=== PATIENT | male | born 1940 | race African-American/Black ===

== ENCOUNTER 2017-09-21 22:31 | Emergency (ER) | payer MEDICARE, SELFPAY ==
[2017-09-21 22:32] VITALS: BP 162/87; PULSE 67; RESP 18; TEMP 36.3; O2SAT 97; BMI 30.5
--- NOTE | 2017-09-21 22:51 | EKG12_ITS ---
Test Reason : Blood Pressure : / mmHG Vent. Rate : 066 BPM Atrial Rate : 066 BPM P-R Int : 232 ms QRS Dur : 116 ms QT Int : 410 ms P-R-T Axes : 052 016 057 degrees QTc Int : 429 ms Sinus rhythm with 1st degree A-V block Otherwise normal ECG Confirmed by STEVE WILLIS ([id number]), image editor ERMELINDA HOWARD ([id number]) on 09/26/2017 10:01:28 AM Referred By: CANDACE Confirmed By:STEVE WILLIS
--- NOTE | 2017-09-21 22:55 | RAD_ITS ---
STUDY: X-RAY CHEST REASON FOR EXAM: Male, 77 years old. Pain TECHNIQUE: Frontal views COMPARISON: None. FINDINGS: The lungs are expanded. There is mild interstitial prominence. Normal size heart. Normal mediastinum and judy. Normal visualized pulmonary arteries. Calcified ectatic aortic arch and descending thoracic aorta. Degenerative changes of the thoracic spine. Normal visualized ribs, clavicles, and shoulders. There is no demonstrated abnormality of the visualized soft tissue structures of the upper abdomen. RAD/Chest 1 View (Portable) IMPRESSION: Mild interstitial prominence. Electronically Signed: Kunal Hugo DO at 23:11 EST Tel [phone], Service support ,
--- NOTE | 2017-09-21 22:56 | ED.VISSUMM ---
- ER Visit Summary Date of Service: 09/21/17 Chief Complaint: [] Abdominal distention History of Present Illness: The patient is a 77 M [] complaining of abdominal distention and belching beginning today. Patient reports slight constipation however reports having a normal bowel movement yesterday. Patient has an unusual affect. He denies any abdominal pain or nausea and vomiting however his main concern is the distention and belching. Denies fevers. Denies any past medical history or any current medication use. Reports previous surgical history of hemorrhoid repair and eye surgery. Physical Examination: [] Afebrile, vital signs stable. Elderly male in no acute distress. Cardiovascular exam is regular rate and rhythm. Lungs are clear to auscultation. Abdomen is soft mild distention, with no guarding or rebound tenderness. No lower extremity edema. Test Results: [] EKG shows normal sinus rhythm rate of 66 without ischemic changes. Chest x-ray negative. CT flank without contrast shows fecal retention without acute pathology. CBC, BMP, LFTs, lipase all within normal limits. Emergency Department Course and Treatment: [] Intravenous fluids. Patient declined the need for pain medication. As a result of the reading of fecal retention, patient was provided magnesium citrate orally in the emergency department. After 4 hour observation patient felt improved and was requesting discharge. Treatment Plan: [] Follow-up with PCP. Disposition: [] Discharge, stable. Impression: [] Abdominal pain Constipation This note was generated with [employer] dictation software. It may contain incorrect words, spelling, and punctuation that were not noted in review of the chart prior to signing ED Disposition - Plan for ED Patient: Chief Complaint: Abd Pain Referrals: Lam Huffman MD [Primary Care Provider] -
[2017-09-22 00:48] VITALS: PULSE 66; RESP 18; O2SAT 97
[2017-09-22 00:50] LABS: Absolute Lymphocyte Count 1.35 X10^3/ul (0.83-4.51); Absolute Neutrophil Count 6.9 X10^3/uL (2.0-7.7); Basophil# 0.01 X10^3/uL; Basophil% 0.1 % (0-1); Eosinophil# 0.02 X10^3/uL; Eosinophils% 0.2 % (0-5); Hematocrit 40.1 % (40-54); Hemoglobin 13.2 g/dl (13.0-16.5); Lymphocyte # 1.35 X10^3/ul (4.0); Lymphocyte % 15.1 % (19-41); Mean Corp Hgb Conc 32.9 g/gl (32-36); Mean Corpuscular Hgb 27.2 pg (27.0-32.0); Mean Corpuscular Volume 82.5 fL (80-94); Mean Platelet Vol. 9.6 fl (6.2-12.0); Monocyte% 6.7 % (0-10); Neutrophil # 6.94 X10^3/uL (2.7-7.7); Neutrophil % 77.8 % (47-70); Platelet Count 192 K/mm3 (150-450); RBC Distribution Width CV 14.6 % (11.6-14.6); RBC Distribution Width SD 43.4 fl (35.1-43.9); Red Blood Count 4.86 M/mm3 (4.6-6.2); White Blood Count 8.9 K/mm3 (4.4-11.0)
[2017-09-22 00:52] LABS: POSITIVE COUNT NO; POSITIVE DIFFERENTIAL NO; POSITIVE MORPHOLOGY NO
[2017-09-22 01:07] LABS: ALB/GLOB Ratio 0.8 RATIO (0.9-2.4); AST(SGOT) 27 U/L (15-37); Alanine Aminotransfer ALT/SGPT 29 U/L (12-78); Albumin, Serum 3.6 g/dL (3.4-5.0); Alkaline Phosphatase 66 U/L (45-117); Anion Gap 8 (5-15); BUN 16 mg/dL (7-18); Calcium,Total 8.7 mg/dL (8.5-10.1); Chloride 105 mmol/L (98-107); Creatinine, Serum 1.07 mg/dL (0.70-1.30); EST Glomerular Filtration Rate 72 mL/min (>60); Est Glom Filt Rate - Afr Amer 87 mL/min (>60); Estimated Creatinine Clearance 79.06 ml/min; Globulin 4.4 g/dL (2.2-4.2); Glucose 148 mg/dL (70-110); Lipase 267 U/L (73-393); Sodium Level 141 mmol/L (136-145)
[2017-09-22 01:16] LABS: Lactic Acid 2.2 mmol/L (0.4-2.0)
--- NOTE | 2017-09-22 01:21 | ED.RN ---
this rn received a call from lab. pt lactic acid level 2.2. dr. carcamo informed. awaiting further orders at this time.
[2017-09-22 02:39] VITALS: RESP 18
[2017-09-22] MEDS: Magnesium Citrate 300 ML PO (02:46)
--- NOTE | 2017-09-22 04:03 | ED.DEP ---
ED Disposition - Plan for ED Patient: Disposition: Home or Assisted Living Chief Complaint: Abd Pain Instructions: ED Abdominal Pain Unkn Cause, ED Constipation Referrals: Lam Huffman MD [Primary Care Provider] -
--- NOTE | 2017-09-22 04:27 | ED.RN ---
PT WAS ABLE TO HAVE A LARGE BM IN THE BATHROOM.
[2017-09-22 04:28] VITALS: BP 152/64; PULSE 64; RESP 18; O2SAT 96
[2017-09-22 04:46] LABS: Reflex Lactate? Y
--- NOTE | 2017-09-22 22:51 | CT_ITS ---
STUDY: CT ABDOMEN AND PELVIS WITHOUT CONTRAST REASON FOR EXAM: Male, 77 years old. Abdominal pain and distention, constipation. RADIATION DOSAGE (If Supplied By Facility): CTDIvol = ( 14.85 ) mGy, DLP = ( 749.18 ) mGycm TECHNIQUE: Transaxial images were obtained from the dome of the diaphragm to the symphysis pubis without oral contrast, and without intravenous contrast. Sagittal and coronal images were reconstructed. Individualized dose optimization techniques were used for this CT. COMPARISON: None. FINDINGS: The visualized portions of lung bases demonstrate mild stranding which could be due to atelectasis or scarring. The distal descending thoracic aorta is tortuous and calcified. The visualized portions of the heart are within normal limits. Normal liver. Normal gallbladder and extrahepatic biliary system. Normal spleen. Normal pancreas. Normal bilateral adrenal glands. Normal right kidney. Normal left kidney. Normal visualized stomach. The small bowel loops are normal in caliber. There is fecal retention. The appendix is visualized and appears normal. There is diffuse atherosclerotic calcification of the abdominal aorta with elongation and tortuosity, but without a demonstrated aneurysm. Normal inferior vena cava. Normal retroperitoneum. Normal urinary bladder. There is enlargement of the prostate gland. There is questionable small inguinal hernias containing fat. There are diffuse degenerative changes of the visualized lumbar spine. CT/Abdomen/Pelvis without Cont IMPRESSION: Fecal retention. No evidence of small bowel obstruction. No evidence for appendicitis. No evidence of urinary tract stones or hydronephrosis. Prominent prostate. Electronically Signed: Yunior Conrad MD at 0:58 EST Tel , Service support ,
== END 2017-09-22 04:28 | disposition home or self-care (01) ==
PROVIDERS: Emergency Provider Emergency Medicine; Family Provider Internal Medicine; PCP Internal Medicine
DX: K59.00 Constipation, unspecified (principal); R10.9 Unspecified abdominal pain
CPT/HCPCS: 71045; 74176; 80053; 83605; 83690; 85025; 93005; 96360; 96361; 99285; J7030; J7040

== ENCOUNTER 2017-09-22 11:52 | Emergency (ER) | payer MEDICARE, SELFPAY ==
[2017-09-22 11:53] VITALS: BP 166/92; PULSE 71; RESP 17; TEMP 36.5; O2SAT 97; BMI 28.1
--- NOTE | 2017-09-22 12:10 | EKG12_ITS ---
Test Reason : N/V Blood Pressure : / mmHG Vent. Rate : 070 BPM Atrial Rate : 070 BPM P-R Int : 220 ms QRS Dur : 116 ms QT Int : 424 ms P-R-T Axes : 057 005 021 degrees QTc Int : 457 ms Sinus rhythm with 1st degree A-V block Otherwise normal ECG Confirmed by STEVE WILLIS ([id number]), scientific publications editor ERMELINDA HOWARD ([id number]) on 09/26/2017 9:46:14 AM Referred By: LORENA Confirmed By:STEVE WILLIS
--- NOTE | 2017-09-22 12:10 | CT_ITS ---
STUDY: CT BRAIN WITHOUT CONTRAST REASON FOR EXAM: Male, 77 years old. Dysphagia. RADIATION DOSAGE (If Supplied By Facility): CTDIvol = ( 44.99 ) mGy, DLP = ( 863.6 ) mGycm TECHNIQUE: Transaxial CT imaging of the brain was performed without administration of intravenous contrast material. Individualized dose optimization techniques were used for this CT. COMPARISON: None. FINDINGS: Normal soft tissue structures. Normal calvarium. There is mild cerebral atrophy with widening of the extra-axial spaces and ventricular dilatation. Normal white matter tracts of the cerebral hemispheres. Normal basal ganglia and thalami. Normal brainstem. Normal cerebellum. There is no intracranial hemorrhage. There are no findings of an acute ischemic infarction. Atherosclerotic calcification of the cavernous portions of the internal carotid arteries bilaterally. Normal visualized paranasal sinuses. CT/Brain/Head without Contrast IMPRESSION: Chronic involutional changes of the brain. Electronically Signed: Fernando Grullon MD at 14:01 EST Tel [phone], Service support ,
--- NOTE | 2017-09-22 12:10 | RAD_ITS ---
STUDY: X-RAY CHEST REASON FOR EXAM: Male, 77 years old. Possible aspiration. TECHNIQUE: Single AP portable view of the chest. COMPARISON: Comparison is made with prior study dated September 21, 2017. FINDINGS: EKG electrodes are seen. The lungs are clear and expanded. Scattered calcified granulomas. There is no demonstrated pleural abnormality. Normal size heart. Normal mediastinum and judy. Normal visualized pulmonary arteries. There is atherosclerotic calcification of the aortic arch with tortuosity. There are diffuse degenerative changes of the visualized thoracic spine. Normal visualized ribs, clavicles, and shoulders. There is no demonstrated abnormality of the visualized soft tissue structures of the upper abdomen. RAD/Chest 1 View (Portable) IMPRESSION: No acute abnormality is seen. Electronically Signed: Fernando Grullon MD at 12:33 EST Tel [phone], Service support ,
[2017-09-22 12:21] VITALS: BP 151/83; PULSE 68; RESP 13; O2SAT 98
[2017-09-22 13:11] LABS: Bacteria 0 SEEN /hpf (None Seen); Mucous, Urine 0 SEEN /hpf (<or=2+); Red Blood Cells-Urine 0 SEEN /hpf (0-5); Squamous Epithelial Cells - UA 0 SEEN /hpf (0-5); White Blood Cells 0 SEEN /hpf (0-5)
[2017-09-22 13:13] LABS: Color, Urine Yellow (Yellow); Glucose, Dipstick Normal (Normal); Ketone-Dipstick 5 mg/dl (Negative); Leukocyte Esterase-Dipstick Negative /ul (Negative); Nitrite-Dipstick Negative (Negative); Occult Blood-Urine 10 /ul (Negative); Protein-Dipstick Negative (Negative); Specific Gravity, Urine 1.015 (1.002-1.030); Urine Bilirubin Dipstick Negative (Negative); Urine Clarity Clear (Clear); Urine Urobilinogen Normal (Normal)
[2017-09-22 13:26] LABS: Amorphous Sediment 1+
[2017-09-22] MEDS: Ondansetron 4 MG/2 ML Vial IV (13:35)
[2017-09-22 14:00] VITALS: BP 176/91; PULSE 65; RESP 23; O2SAT 95
[2017-09-22 14:02] LABS: Lactic Acid 2.4 mmol/L (0.4-2.0)
--- NOTE | 2017-09-22 15:06 | ED.VISSUMM ---
- ER Visit Summary Date of Service: 09/22/17 Chief Complaint: Something in throat. History of Present Illness: The patient is a [address] Huffman. He is a very poor informant. He reports that his feels as though there is something in his throat and is having a difficult time swallowing it. He denies any abdominal pain. States he has had nausea and somewhat vomiting. States that he was seen in the emergency department yesterday and was given magnesium citrate and he had a little bit of the bowel movement no blood in his stools or black tarry stools. Review of systems: General: No fever, chills, cold sweats. Cardiovascular: No chest pain, palpitations. Respiratory: No cough, shortness of breath, dyspnea on exertion. Gastrointestinal: No abdominal pain, vomiting, diarrhea, melena, or hematochezia. Genitourinary: No dysuria, frequency, hematuria. Skin: No rash. Neuro: No headache, numbness, weakness. Physical Examination: Vitals: Stable. Afebrile. General: Well-nourished and well-developed. Head: Normocephalic atraumatic. HEENT: Moist mucous membranes. There is no obvious foreign body in his oropharynx. His soft palate elevates normally. Neck: Supple, no lymphadenopathy. No JVD. Nontender. Cardiovascular: Regular rate and rhythm. No murmurs. Respiratory: No respiratory distress. Clear to auscultation bilaterally. Abdominal: Soft, nontender, nondistended, normal bowel sounds. No guarding, rebound, or peritoneal signs. Back: Nontender. Extremities: Nontender, no edema. Skin: Normal color, no rash. Neurologic: Alert and oriented ?3. Cranial nerves II through XII are intact. Normal strength and sensation. Psych: Normal affect. Test Results: The labs were reviewed from <12 hours ago. His CBC was remarkable for neutrophils of 78 and lymphocytes of 15. His BMP is marked for glucose of 148. His LFTs marked for globulin 4.4. His lactic acid was 2.2. CT of the flank that showed fecal retention and normal appendix. These were repeated. Patient had a chest x-ray that is normal. The brain shows chronic changes. UA is negative. Opponent is less than 0.02. EKG is sinus with first-degree AV block rate of 70 and no acute changes. Is unchanged from yesterday. Repeat lactic acid is 2.4. Emergency Department Course and Treatment: Upon arrival to the emergency department it is very difficult to ascertain exactly why the patient is here. Listening to him it sounds as though he has mucus and/or saliva that is making it difficult for him to speak. Patient reports that he last ate yesterday evening and did not have any difficulty with it then. He has been able to drink fluids and eat solids here without any difficulty. His swallowing improved greatly after drinking fluids. Patient had a large bowel movement while here and reports that he feels much improved. At this time I do not have an explanation for his lactic acidosis, but he is certainly not septic. He is ambulating without difficulty. Treatment Plan: Patient will be discharged with Zofran. I suspect that a lot of the difficulty swallowing is due to nasal drainage. Follow-up with his primary care physician 1-2 days if not improving. Disposition: To home in improved and stable condition. Impression: 1. Postnasal drainage. 2. Constipation, resolved. This note was generated with [employer] ([employer]) dictation software. It may contain incorrect words, spelling, and punctuation that were not noted in review of the chart prior to signing ED Disposition - Plan for ED Patient: Disposition: Home or Assisted Living Chief Complaint: Nausea/Vomiting Instructions: ED Constipation Prescriptions: Ondansetron [Zofran Odt] 4 mg PO Q8H PRN PRN #10 tablet PRN Reason: Nausea Referrals: Lam Huffman MD [Primary Care Provider] - 1-2 Days if not improving
[2017-09-22 15:38] VITALS: BP 159/90; PULSE 64; RESP 20; O2SAT 98
[2017-09-22 17:27] LABS: Reflex Lactate? Y
== END 2017-09-22 15:38 | disposition home or self-care (01) ==
PROVIDERS: Emergency Provider Emergency Medicine; Family Provider Internal Medicine; PCP Internal Medicine
DX: R09.82 Postnasal drip (principal); K59.00 Constipation, unspecified; I44.0 Atrioventricular block, first degree; E87.2 Acidosis
CPT/HCPCS: 70450; 71045; 81001; 83605; 84484; 93005; 96361; 96374; 99285; J7040; A4216; J2405

== ENCOUNTER 2018-03-09 20:24 | Emergency (ER) | payer MEDICARE, SELFPAY ==
[2018-03-09 20:25] VITALS: BP 147/90; PULSE 86; RESP 16; TEMP 37.7; O2SAT 97; BMI 20.2
--- NOTE | 2018-03-09 21:34 | EKG12_ITS ---
Test Reason : WEAKNESS Blood Pressure : / mmHG Vent. Rate : 061 BPM Atrial Rate : 061 BPM P-R Int : 216 ms QRS Dur : 116 ms QT Int : 426 ms P-R-T Axes : 048 018 029 degrees QTc Int : 428 ms Sinus rhythm with 1st degree A-V block Otherwise normal ECG Confirmed by LILIAN MURRAY, MONTRELL ([id number]), newspaper or periodical editor ERMELINDA HOWARD ([id number]) on 03/13/2018 1:46:12 PM Referred By: NATALIA Confirmed By:MONTRELL QUINTANA MD
--- NOTE | 2018-03-09 21:34 | CT_ITS ---
STUDY: CT ABDOMEN AND PELVIS WITHOUT CONTRAST REASON FOR EXAM: Male, 78 years old. Weakness and increased bowel movements RADIATION DOSAGE (If Supplied By Facility): CTDIvol = ( 18.28 ) mGy, DLP = ( 913.5 ) mGycm TECHNIQUE: Transaxial images were obtained from the dome of the diaphragm to the symphysis pubis without oral contrast, and without intravenous contrast. Sagittal and coronal images were reconstructed. Individualized dose optimization techniques were used for this CT. COMPARISON: September 22, 2017 FINDINGS: The visualized lung bases are unremarkable. The visualized portions of the heart are within normal limits. Normal liver. Gallbladder is ill-defined with probable wall thickening or pericholecystic inflammatory change. No radiodense stones are noted. Normal spleen. Normal pancreas. Normal bilateral adrenal glands. 2.2 cm right renal cortical cyst. 1.7 cm simple left renal cortical cyst. Normal visualized stomach. Normal small intestine. Normal colon. The appendix is visualized and appears normal. Scattered plaque along the aorta and its branches. Normal inferior vena cava. Normal retroperitoneum. Normal urinary bladder. Prominent prostate. Normal abdominal wall. Mild levoconvex scoliosis. IMPRESSION: Possible acalculous cholecystitis or gallbladder mass. Recommend follow-up gallbladder ultrasound and possible MRCP. Increased stool. Electronically Signed: Cole Hernadez MD at 23:31 EDT , Service support , CT/Abdomen/Pelvis without Cont
--- NOTE | 2018-03-09 21:35 | ED.VISSUMM ---
- ER Visit Summary Date of Service: 03/09/18 Chief Complaint: Weakness History of Present Illness: The patient is a 78 M who presents complaining of generalized weakness. Patient states he had a massive bowel movement prior to symptom onset, and afterwards felt very weak. Weakness is generalized. Patient denies any associated symptoms such as fever, chest pain, shortness of breath, abdominal pain, nausea or vomiting, diarrhea, urinary symptoms, or back pain. He denies any medical history such as diabetes, hypertension, coronary artery disease, stroke. He has a right artificial eye. Patient lives alone. He states a friend brought him to the emergency department and he was able to ambulate using his cane. Physical Examination: Vital signs: afebrile, hemodynamically stable, no hypoxia on room air General: well nourished, well developed, in no distress Skin: warm, dry, no rash, no pallor HEENT: normocephalic and atraumatic; right eye is fixed, nonreactive, left pupil reactive, normal extraocular movement in the left eye, dry mucous membranes Cardiovascular: regular rate and rhythm without murmurs, mild symmetric peripheral edema, 2+ pulses all distal extremities Respiratory: No increased work of breathing, lungs are clear to auscultation bilaterally, no rales, rhonchi or wheezing Abdominal: Abdomen is soft, nontender with normoactive bowel sounds, no guarding or rebound, no masses MSK: Moves all extremities, no deformities, generalized weakness Neuro: Awake and alert, oriented ?4. No facial droop, sensation and motor function intact and symmetric Test Results: Abnormal Lab Results 03/09/18 03/09/18 03/09/18 22:00 22:00 22:00 WBC 9.8 RBC 4.90 Hgb 13.3 Hct 40.5 MCV 82.7 MCH 27.1 MCHC 32.8 RDW 14.0 RDW Differential 42.3 Plt Count 197 MPV 9.3 Immature Gran % (Auto) 0.100 Neut % (Auto) 78.0 H Lymph % (Auto) 16.5 L [place] % (Auto) 5.1 Eos % (Auto) 0.1 Baso % (Auto) 0.2 Absolute Neuts (auto) 7.7 Absolute Lymphs (auto) 1.62 Total Counted Not Reportable Sodium 137 Potassium 3.8 Chloride 100 Carbon Dioxide 28.0 Anion Gap 9 BUN 9 Creatinine 1.02 Estim Creat Clear Calc 71.15 Est GFR (MDRD) Af Amer 91 Est GFR (MDRD) Non-Af 75 BUN/Creatinine Ratio 8.8 L Glucose 101 Calcium 8.7 Total Bilirubin 0.50 AST 28 ALT 26 Alkaline Phosphatase 72 Troponin I < 0.015 Total Protein 8.1 Albumin 3.8 Globulin 4.3 H Albumin/Globulin Ratio 0.9 Urine Color Yellow Urine Clarity Clear Urine pH 8.0 Ur Specific [place] 1.010 Urine Protein Negative Urine Glucose (UA) Normal Urine Ketones Negative Urine Occult Blood 25 H Urine Nitrite Negative Urine Bilirubin Negative Urine Urobilinogen Normal Ur Leukocyte Esterase Negative Urine RBC 0-5 SEEN Urine WBC 0 SEEN Ur Squamous Epith Cells 0 SEEN Urine Bacteria 0 SEEN Urine Mucus 0 SEEN Clinical Impression(s) from Imaging Studies Abdomen/Pelvis CT 03/09/18 21:34 Chest X-Ray 03/09/18 21:40 IMPRESSION: Normal x-ray examination of the chest. Electronically Signed: Cole Hernadez MD at 22:23 EDT , Service support , Medications Given Sodium Chloride () 1,000 mls @ 250 mls/hr IV .Q4H ONE Stop: 03/10/18 01:33 Last Admin: 03/09/18 22:06 Dose: 250 mls/hr Emergency Department Course and Treatment: Patient presents with complaint of vague weakness, with an inciting event being having a large bowel movement which the patient states is abnormal for him. Patient denies any diaphoresis, abdominal cramping, nausea or dizziness that would be concerning for a vasovagal episode due to the bowel movement. Patient has very vague complaints and no specific symptoms or focal findings on physical exam. He seems generally weak but has no significant physical exam findings. Thus a workup was performed for generalized weakness. Patient had no lab derangements, including hepatic, renal or electrolyte. EKG showed no ischemic changes. Troponin negative. Chest x-ray showed no infiltrates. CT the abdomen and pelvis was performed given that the inciting event involved a bowel movement, CT abdomen and pelvis was included in the workup. It showed a large amount of stool in the colon without bowel obstruction, diverticulitis or colitis. It did show some vague gallbladder findings, with possible acalculous cholecystitis or mass. Comparison of the CT scan to one done 6 months ago looks similar in appearance and was read as normal. Patient has no right upper quadrant tenderness, no abnormalities of his liver function, no nausea or vomiting, no fever or other symptoms that would be concerning for acute cholecystitis. Patient was discussed with Dr. Sevreino who stated she would be happy to see the patient for follow-up outpatient. No acute findings were found that would require patient admission. Patient stated he felt better after some IV hydration. He was ambulated and was able to walk with his cane at his baseline. Patient stated he felt fine and was ready to go home. Patient was discharged in improved condition. He was given follow-up information with surgery for outpatient evaluation of gallbladder pathology. Treatment Plan: [] Disposition: [] Impression: constipation, episode of generalized weakness This note was generated with [employer] dictation software. It may contain incorrect words, spelling, and punctuation that were not noted in review of the chart prior to signing ED Disposition - Plan for ED Patient: Disposition: Home or Assisted Living Chief Complaint: Weakness Instructions: ED Constipation Referrals: Anna Severino MD [STAFF PHYSICIAN] - 5-7 Days Lam Huffman MD [Primary Care Provider] - As soon as possible Additional Instructions: Please follow-up with your primary care doctor as soon as possible for another evaluation, especially if you continue to have feeling of weakness after a bowel movement. Your CT scan showed some possible gallbladder abnormalities. Please follow-up with surgery, calling Monday to make a follow-up appointment. If you have any worsening of your condition or any new concerning symptoms, please return immediately to the emergency department for another evaluation.
--- NOTE | 2018-03-09 21:40 | RAD_ITS ---
STUDY: X-RAY CHEST REASON FOR EXAM: Male, 78 years old. Weakness TECHNIQUE: Single frontal view of the chest. COMPARISON: September 22, 2017 FINDINGS: The lungs are clear and expanded. There is no demonstrated pleural abnormality. Normal size heart. Normal mediastinum and judy. Normal visualized pulmonary arteries. Normal visualized aortic arch and descending thoracic aorta. Normal visualized thoracic spine. Normal visualized ribs, clavicles, and shoulders. There is no demonstrated abnormality of the visualized soft tissue structures of the upper abdomen. RAD/Chest 1 View (Portable) IMPRESSION: Normal x-ray examination of the chest. Electronically Signed: Cole Hernadez MD at 22:23 EDT , Service support ,
[2018-03-09 22:06] LABS: Bacteria 0 SEEN /hpf (None Seen); Mucous, Urine 0 SEEN /hpf (<or=2+); Squamous Epithelial Cells - UA 0 SEEN /hpf (0-5); White Blood Cells 0 SEEN /hpf (0-5)
[2018-03-09] MEDS: 0.9% Normal Saline 1,000 ML 250 ML IV (22:06)
[2018-03-09 22:17] LABS: Color, Urine Yellow (Yellow); Glucose, Dipstick Normal (Normal); Ketone-Dipstick Negative (Negative); Leukocyte Esterase-Dipstick Negative /ul (Negative); Nitrite-Dipstick Negative (Negative); Occult Blood-Urine 25 /ul (Negative); Protein-Dipstick Negative (Negative); Urine Bilirubin Dipstick Negative (Negative); Urine Clarity Clear (Clear); Urine Urobilinogen Normal (Normal)
[2018-03-09 22:27] LABS: ALB/GLOB Ratio 0.9 RATIO (0.9-2.4); AST(SGOT) 28 U/L (15-37); Alanine Aminotransfer ALT/SGPT 26 U/L (16-61); Albumin, Serum 3.8 g/dL (3.2-5.0); Alkaline Phosphatase 72 U/L (45-117); Anion Gap 9 (5-15); BUN 9 mg/dL (7-18); BUN/Creat Ratio 8.8 RATIO (10-20); Calcium,Total 8.7 mg/dL (8.5-10.1); Chloride 100 mmol/L (98-107); Creatinine, Serum 1.02 mg/dL (0.70-1.30); EST Glomerular Filtration Rate 75 mL/min (>60); Est Glom Filt Rate - Afr Amer 91 mL/min (>60); Estimated Creatinine Clearance 71.15 ml/min; Globulin 4.3 g/dL (2.2-4.2); Glucose 101 mg/dL (74-106); Potassium 3.8 mmol/L (3.5-5.1); Protein, Total 8.1 g/dL (6.4-8.2); Sodium Level 137 mmol/L (136-145)
[2018-03-09 22:32] LABS: Absolute Lymphocyte Count 1.62 X10^3/ul (0.83-4.51); Absolute Neutrophil Count 7.7 X10^3/uL (2.0-7.7); Basophil# 0.02 X10^3/uL; Basophil% 0.2 % (0-1); Eosinophil# 0.01 X10^3/uL; Eosinophils% 0.1 % (0-5); Hematocrit 40.5 % (40-54); Hemoglobin 13.3 g/dl (13.0-16.5); Lymphocyte # 1.62 X10^3/ul (4.0); Lymphocyte % 16.5 % (19-41); Mean Corp Hgb Conc 32.8 g/gl (32-36); Mean Corpuscular Hgb 27.1 pg (27.0-32.0); Mean Corpuscular Volume 82.7 fL (80-94); Mean Platelet Vol. 9.3 fl (6.2-12.0); Monocyte% 5.1 % (0-10); Neutrophil # 7.68 X10^3/uL (2.7-7.7); POSITIVE COUNT NO; POSITIVE DIFFERENTIAL NO; POSITIVE MORPHOLOGY NO; Platelet Count 197 K/mm3 (150-450); RBC Distribution Width SD 42.3 fl (35.1-43.9); White Blood Count 9.8 K/mm3 (4.4-11.0)
[2018-03-09 22:36] LABS: Red Blood Cells-Urine 0-5 SEEN /hpf (0-5)
[2018-03-09 23:04] VITALS: BP 166/97; PULSE 65; RESP 18; O2SAT 97
--- NOTE | 2018-03-09 23:34 | ED.RN ---
urinal emptied for 300 cc yellow urine.
--- NOTE | 2018-03-10 00:07 | ED.DEP ---
ED Disposition - Plan for ED Patient: Disposition: Home or Assisted Living Chief Complaint: Weakness Instructions: ED Constipation Referrals: Lam Huffman MD [Primary Care Provider] - As soon as possible Anna Severino MD [STAFF PHYSICIAN] - 5-7 Days Additional Instructions: Please follow-up with your primary care doctor as soon as possible for another evaluation, especially if you continue to have feeling of weakness after a bowel movement. Your CT scan showed some possible gallbladder abnormalities. Please follow-up with surgery, calling Monday to make a follow-up appointment. If you have any worsening of your condition or any new concerning symptoms, please return immediately to the emergency department for another evaluation.
[2018-03-10 00:22] VITALS: BP 153/73; PULSE 88; RESP 16; O2SAT 96
== END 2018-03-10 00:37 | disposition home or self-care (01) ==
PROVIDERS: Emergency Provider Emergency Medicine; Family Provider Internal Medicine; PCP Internal Medicine
DX: R53.1 Weakness (principal); K59.00 Constipation, unspecified; Z97.0 Presence of artificial eye
CPT/HCPCS: 71045; 74176; 80053; 81001; 84484; 85025; 93005; 96360; 96361; 99283; A4216

== ENCOUNTER 2018-10-01 17:12 | Emergency (ER) | payer MEDICARE, SELFPAY ==
[2018-10-01 17:13] VITALS: BP 153/85; BP 153/86; PULSE 82; PULSE 83; RESP 18; TEMP 36.7; O2SAT 96
--- NOTE | 2018-10-01 18:40 | EKG12_ITS ---
Test Reason : ABD PAIN Blood Pressure : / mmHG Vent. Rate : 079 BPM Atrial Rate : 079 BPM P-R Int : 228 ms QRS Dur : 116 ms QT Int : 394 ms P-R-T Axes : 048 -03 038 degrees QTc Int : 451 ms Sinus rhythm with 1st degree A-V block Otherwise normal ECG Confirmed by LILIAN MURRAY, MONTRELL ([id number]), editor news ERMELINDA HOWARD ([id number]) on 10/03/2018 2:00:03 PM Referred By: MOUNA Confirmed By:MONTRELL QUINTANA MD
--- NOTE | 2018-10-01 18:40 | CT_ITS ---
STUDY: CT BRAIN WITHOUT CONTRAST REASON FOR EXAM: Male, 78 years old. Slurred speech. RADIATION DOSAGE (If Supplied By Facility): CTDIvol = ( 44.99 ) mGy, DLP = ( 880.47 ) mGycm TECHNIQUE: Transaxial CT imaging of the brain was performed without administration of intravenous contrast material. Individualized dose optimization techniques were used for this CT. COMPARISON: None. FINDINGS: Normal soft tissue structures. Normal calvarium. There is a stable right ocular prosthesis. Normal size ventricles and extra-axial spaces for the patient's age. Normal white matter tracts of the cerebral hemispheres. Normal basal ganglia and thalami. Normal brainstem. Normal cerebellum. There is no intracranial hemorrhage. There are no findings of an acute ischemic infarction. Normal visualized paranasal sinuses. CT/Brain/Head without Contrast IMPRESSION: Normal unenhanced CT scan of the brain. Electronically Signed: Jim Swift MD at 19:37 EST , Service support ,
[2018-10-01 18:52] LABS: Absolute Lymphocyte Count 0.68 X10^3/ul (0.83-4.51); Absolute Neutrophil Count 9.8 X10^3/uL (2.0-7.7); Basophil# 0.02 X10^3/uL; Basophil% 0.2 % (0-1); Hematocrit 43.4 % (40-54); Hemoglobin 13.9 g/dl (13.0-16.5); Lymphocyte # 0.68 X10^3/ul (4.0); Lymphocyte % 6.1 % (19-41); Mean Corpuscular Volume 84.3 fL (80-94); Mean Platelet Vol. 9.5 fl (6.2-12.0); Monocyte# 0.55 X10^3/uL; Neutrophil % 88.4 % (47-70); POSITIVE COUNT NO; POSITIVE DIFFERENTIAL NO; POSITIVE MORPHOLOGY NO; Platelet Count 203 K/mm3 (150-450); RBC Distribution Width CV 14.7 % (11.6-14.6); RBC Distribution Width SD 45.3 fl (35.1-43.9); Red Blood Count 5.15 M/mm3 (4.6-6.2); White Blood Count 11.1 K/mm3 (4.4-11.0)
[2018-10-01 19:12] LABS: ALB/GLOB Ratio 0.9 RATIO (0.9-2.4); AST(SGOT) 333 U/L (15-37); Alanine Aminotransfer ALT/SGPT 373 U/L (16-61); Alkaline Phosphatase 242 U/L (45-117); Anion Gap 11 (5-15); BUN 14 mg/dL (7-18); BUN/Creat Ratio 12.8 RATIO (10-20); Calcium,Total 9.3 mg/dL (8.5-10.1); Chloride 105 mmol/L (98-107); Creatinine, Serum 1.09 mg/dL (0.70-1.30); EST Glomerular Filtration Rate 70 mL/min (>60); Est Glom Filt Rate - Afr Amer 84 mL/min (>60); Estimated Creatinine Clearance 76.41 ml/min; Globulin 4.6 g/dL (2.2-4.2); Glucose 136 mg/dL (74-106); Protein, Total 8.6 g/dL (6.4-8.2); Sodium Level 143 mmol/L (136-145)
[2018-10-01] MEDS: Ondansetron 4 MG/2 ML Vial IV (19:35)
[2018-10-01 19:37] VITALS: PULSE 76; RESP 20; O2SAT 95
--- NOTE | 2018-10-01 20:04 | US_ITS ---
STUDY: ABDOMINAL ULTRASOUND - RIGHT UPPER QUADRANT REASON FOR VISIT: Male, 78 years old. Abnormal labs. TECHNIQUE: Ultrasound evaluation of the right upper quadrant was performed with real-time and static koo-scale imaging. TECHNICAL QUALITY: Adequate. COMPARISON: March 09, 2018 CT FINDINGS: Liver: The liver measures 17.8 cm. There is normal echogenicity of the liver. The bile ducts are within normal limits. There is hepatic color flow. The direction of portal flow is hepatopetal. There is no demonstrated mass lesion. Gallbladder: The gallbladder is not visualized. Common Bile Duct (C.B.D.): The common bile duct measures 7.1 mm. Pancreas: There is nonvisualization of the pancreas. Right Kidney: Normal size of the right kidney. The right kidney measures 12.8 cm in length. Normal renal cortex. There is no demonstrated renal mass or cyst. There is no right hydronephrosis. US/Gallbladder IMPRESSION: Nonvisualization of the pancreas and gallbladder otherwise within normal limits examination. Electronically Signed: Edwina Conde MD at 22:14 EST Tel , Service support ,
--- NOTE | 2018-10-01 20:07 | ED.RN ---
PT GIVEN APPLESAUCE TO ATTEMPT TO SWALLOW. PT ABLE TO SWALLOW APPLESAUCE BUT STATES HE NEEDS WATER TO WASH IT DOWN. PT SWALLOWED 8 OZ OF WATER WITHOUT ANY DIFFICULTY
[2018-10-01 20:27] VITALS: BP 158/86; PULSE 77; RESP 20; O2SAT 94
[2018-10-01 22:00] VITALS: BP 157/96; PULSE 75; RESP 23; O2SAT 94
--- NOTE | 2018-10-01 23:35 | ED.DCSUM_ITS ---
- ER Visit Summary Date of Service: 10/01/18 Chief Complaint: Nausea and vomiting History of Present Illness: The patient is a [address] Huffman. He is a poor informant. Patient reports that approximately 1 PM he was eating corn beef hash, ham and eggs and began gagging and vomited several times. I am unable to ascertain whether he gagged on the food as he was swallowing it, had a an esophageal impaction that he brought up, or was nauseated after finishing his meal and vomited once the contents were in his stomach. He states that he is not had this previously. Patient denies any abdominal pain. His last bowel movement was on arrival to the emergency department. He denies any diarrhea. No melena or hematochezia. No dysuria or frequency. He denies any other complaints. Physical Examination: Vitals: Stable. Afebrile. General: Well-nourished and well-developed. Head: Normocephalic atraumatic. Neck: Supple, no lymphadenopathy. No JVD. Nontender. Cardiovascular: Regular rate and rhythm. No murmurs. Respiratory: No respiratory distress. Clear to auscultation bilaterally. Abdominal: Soft, mild epigastric tenderness to palpation, nondistended, normal bowel sounds. No guarding, rebound, or peritoneal signs. Back: Nontender. Extremities: Nontender, no edema. Skin: Normal color, no rash. Neurologic: Alert and oriented ?3. Cranial nerves II through XII are intact. Normal strength and sensation. Obviously slurred speech. Patient reports that his speech does not sound any different than usual. Psych: Normal affect. Test Results: EKG is sinus with first-degree AV block rate of [address] changes. This is unchanged from February of last year. Initial troponin is negative. Repeat troponin is negative. CBC shows a white count of 11.1 with 88 segmented neutrophils and 6 lymphs lites. Chem-7 shows a glucose 136. LFTs show total bili of 2.5, alk phos 242, ALT of 373, AST of 333, and lipase of 27,306. He had a right upper quadrant ultrasound and they were unable to visualize the gallbladder or pancreas. A CT of the brain that was normal. Emergency Department Course and Treatment: Patient was treated with Zofran. He is resting comfortably. I did review his prior CT. In February [address] was read as possible acalculous cholecystitis or gallbladder mass and suggested a follow-up ultrasound or MRCP. The patient did not have this performed. While in the emergency department the patient became nauseated and seemed to have a vagal episode. His heart rate dropped into the 20s-30s. This was transient and lasted approximately 30 seconds. However, the monitor strip shows that this episode was actually third-degree heart block rather than sinus bradycardia. Treatment Plan: Patient was discussed with Dr. Goel as well as with Dr. Amy borges. At this time a CT of the and pelvis p.o. and IV contrast was ordered. The results are pending. If this shows that there is a pancreatic mass patient will be transferred to a tertiary care center. If it does not show a mass the patient will be admitted to here for further evaluation and treatment. Patient understands this and is happy with this plan. Please see the oncoming physician's dictation for the completion of this. Disposition: Pending Impression: 1. Pancreatitis. 2. Abnormal LFTs. 3. Transient third-degree heart block. This note was generated with [employer] dictation software. It may contain incorrect words, spelling, and punctuation that were not noted in review of the chart prior to signing ED Disposition - Plan for ED Patient: Referrals: Lam Huffman MD [Primary Care Provider] -
--- NOTE | 2018-10-02 00:02 | CT_ITS ---
HISTORY: ELEVATED LFT'S, EMESIS TONIGHT AND SOUR STOMACH AFTER EATING, ELEVATED WBC, N/V TECHNIQUE: Helically acquired images were obtained of the abdomen and pelvis following IV contrast. A radiation dose optimization technique was used for this scan. IV Contrast dosage and agent: 100 cc Isovue-300 contrast Oral contrast: Yes COMPARISON: 03/09/2018 FINDINGS: Lower thorax: Bibasilar mild linear parenchymal scarring, unchanged. No pleural effusion. The gallbladder is moderately distended and no gallstones or pericholecystic inflammatory changes are seen. Mild dilatation of the extrahepatic common bile duct which measures 9-10 mm in diameter. No associated pancreatic ductal dilatation or pancreatic mass identified. No intrahepatic biliary dilatation seen. The liver is upper normal in size and shows no focal lesion. Normal spleen and pancreas. Bilateral renal excretion of contrast without evidence of hydronephrosis or suspicious renal lesion. Bilateral benign-appearing renal cortical cysts. Adrenal glands are not enlarged. Abdominal aorta is diffusely atherosclerotic and is normal in caliber. No ascites or retroperitoneal lymphadenopathy. GI tract: No obstruction. Large stool within the right and transverse colon. Normal appendix. No pericolonic inflammatory changes. Pelvis: Mildly enlarged prostate with secondary mild deformity of the urinary bladder base. Urinary bladder is otherwise negative. The pelvis shows no free fluid or lymphadenopathy. Bones: Lumbar spine degenerative spondylosis. No acute osseous abnormality. CT/Abdomen/Pelvis WITH Contrast IMPRESSION: 1. Extrahepatic mild dilatation of the common bile duct which measures 9-10 mm in diameter. 2. An ampullary lesion or distal biliary stricture is not excluded and consider ERCP. MRCP may be inconclusive. 3. Constipation pattern. 4. Chronic changes include renal cysts, atherosclerotic calcifications, and mild prostatic enlargement. Individualized dose optimization techniques were used for this CT. at 0233 Reported and signed by: Shaheen Finney MD Electronically Signed: Shaheen Finney, at 2:32 EST Tel , Service support ,
[2018-10-02 00:40] LABS: Lipase 27306 U/L (73-393)
[2018-10-02 00:48] VITALS: BP 148/77; PULSE 95; RESP 23; O2SAT 98
[2018-10-02 04:36] VITALS: BP 130/73; PULSE 70; PULSE 71; RESP 20; RESP 27; O2SAT 96
== END 2018-10-02 05:15 | disposition short-term general hospital (02) ==
LOC: ED 18:56
PROVIDERS: Emergency Provider Emergency Medicine; Family Provider Internal Medicine; PCP Internal Medicine
DX: K85.90 Acute pancreatitis without necrosis or infection, unspecified (principal); R94.5 Abnormal results of liver function studies; I44.2 Atrioventricular block, complete
CPT/HCPCS: 70450; 74177; 76705; 80053; 82140; 83690; 84484; 85025; 93005; 96374; 99285; Q9967; A4216; J2405

== ENCOUNTER 2018-11-09 13:19 | Inpatient (IN) | payer MEDICARE, SELFPAY ==
[2018-11-09] VITALS (12 sets, daily range): BP systolic 120–141; BP diastolic 63–92; PULSE 68–83; RESP 12–26; TEMP 36–36.8; O2SAT 96–100; BMI 27.7; BMI 27.3; BMI 27.4
--- NOTE | 2018-11-09 13:58 | EKG12_ITS ---
Test Reason : CP Blood Pressure : / mmHG Vent. Rate : 081 BPM Atrial Rate : 081 BPM P-R Int : 198 ms QRS Dur : 114 ms QT Int : 400 ms P-R-T Axes : 035 -37 078 degrees QTc Int : 464 ms Normal sinus rhythm Left axis deviation Anteroseptal infarct , age undetermined Abnormal ECG Confirmed by STEVE WILLIS ([id number]), film editor supervisor HANNA MORENO ([id number]) on 11/12/2018 4:41:10 PM Referred By: Confirmed By:STEVE WILLIS
--- NOTE | 2018-11-09 14:00 | RAD_ITS ---
STUDY: X-RAY CHEST REASON FOR EXAM: Male, 78 years old. Chest pain. TECHNIQUE: Single AP portable view of the chest. COMPARISON: Comparison is made with prior study dated March 09, 2018. FINDINGS: EKG electrodes are seen. Scattered calcified granulomas. Stable mild increased markings at the lung bases suggestive of scarring. There is no demonstrated pleural abnormality. Normal size heart. Normal mediastinum and judy. Normal visualized pulmonary arteries. There is atherosclerotic calcification of the aortic arch with tortuosity. There are diffuse degenerative changes of the visualized thoracic spine. Normal visualized ribs, clavicles, and shoulders. There is no demonstrated abnormality of the visualized soft tissue structures of the upper abdomen. RAD/Chest 1 View (Portable) IMPRESSION: No acute abnormality is seen. Electronically Signed: Fernando Grullon, at 14:30 EDT , Service support ,
--- NOTE | 2018-11-09 14:02 | ED.VISSUMM ---
- ER Visit Summary Date of Service: 11/09/18 Chief Complaint: Chest pain History of Present Illness: The patient is a 78 M who presents for evaluation after an episode of chest pain this morning. Patient states onset was approximately 2 hours prior to presentation while he was driving to the doctor. Pain is diffuse in the chest and patient is unable to describe the nature of the discomfort. He currently has no discomfort. Patient states he has had this discomfort before, the last time being 3 weeks ago while he was admitted at [facility] for gallbladder surgery. Patient had transient third-degree heart block at that time per the primary care doctor, and was referred to the emergency department by Dr. Huffman patient's history and EKG changes today. Patient is denying any shortness of breath, fever, cough, abdominal pain, nausea, vomiting, diarrhea, urinary symptoms, back pain or any other complaints. Physical Examination: Vital signs: afebrile, hemodynamically stable, no hypoxia on room air General: well nourished, well developed, in no distress Skin: warm, dry, no rash, no pallor HEENT: normocephalic and atraumatic; PERRL, falls right eye, moist mucous membranes Cardiovascular: regular rate and rhythm without murmurs, symmetric peripheral edema, 2+ pulses all distal extremities Respiratory: No increased work of breathing, lungs are clear to auscultation bilaterally, no rales, rhonchi or wheezing Abdominal: Abdomen is soft, nontender with normoactive bowel sounds, no guarding or rebound, no masses MSK: Moves all extremities, no deformities, normal strength Neuro: Awake and alert, oriented ?4. No facial droop, sensation and motor function intact and symmetric Test Results: Abnormal Lab Results 11/09/18 11/09/18 14:10 14:10 WBC 6.8 RBC 4.69 Hgb 12.4 L Hct 39.6 L MCV 84.4 MCH 26.4 L MCHC 31.3 L RDW 14.5 RDW Differential 45.2 H Plt Count 221 MPV 9.3 Immature Gran % (Auto) 0.100 Neut % (Auto) 66.1 Lymph % (Auto) 23.1 [place] % (Auto) 8.8 Eos % (Auto) 1.6 Baso % (Auto) 0.3 Absolute Neuts (auto) 4.5 Absolute Lymphs (auto) 1.58 Total Counted Not Reportable Sodium 139 Potassium 4.0 Chloride 107 Carbon Dioxide 29.0 Anion Gap 3 L BUN 11 Creatinine 0.96 Estim Creat Clear Calc 86.76 Est GFR (MDRD) Af Amer 98 Est GFR (MDRD) Non-Af 81 BUN/Creatinine Ratio 11.5 Glucose 146 H Calcium 8.5 Total Bilirubin 1.00 Direct Bilirubin 0.77 H AST 42 H ALT 66 H Alkaline Phosphatase 197 H Troponin I 0.334 H Total Protein 7.2 Albumin 3.1 L Globulin 4.1 Lipase 313 Clinical Impression(s) from Imaging Studies Chest X-Ray 11/09/18 14:00 IMPRESSION: No acute abnormality is seen. Electronically Signed: Fernando Bradleysonal, at 14:30 EDT , Service support , Medications Given Discontinued Medications Aspirin (Aspirin, Baby) 324 mg PO X1 STA Stop: 11/09/18 13:59 Last Admin: 11/09/18 14:30 Dose: 324 mg Enoxaparin Sodium (Lovenox) 110 mg SC X1 ONE Stop: 11/09/18 15:05 Last Admin: 11/09/18 15:13 Dose: 110 mg Ticagrelor (Brilinta) 180 mg PO X1 ONE Stop: 11/09/18 15:05 Last Admin: 11/09/18 15:14 Dose: 180 mg Emergency Department Course and Treatment: Patient has not taken any aspirin today and thus was given 324 mg of aspirin. He is currently asymptomatic and thus no nitro given at this time. Patient's EKG shows sinus rhythm with first-degree AV block, with T wave inversion in aVL which is new. It also shows T wave inversion in V2, which is also changed from prior. Patient has poor R wave progression with Q waves in V1 through V3. Chest pain workup was performed. Patient's troponin elevated at 0.33. Patient remained pain-free during his ED course. EKG was repeated because of the changes from patient's baseline, and it was unchanged from the initial EKG. Patient was discussed with Dr. Franz, and given Brilinta and Lovenox. On reevaluation, patient still is pain-free and has no complaints. Patient will be admitted to Dr. Naranjo for further workup of an STEMI. Treatment Plan: [] Disposition: [] Impression: NSTEMI This note was generated with [employer] dictation software. It may contain incorrect words, spelling, and punctuation that were not noted in review of the chart prior to signing ED Disposition - Plan for ED Patient: Referrals: Lam Huffman MD [Primary Care Provider] -
[2018-11-09 14:24] LABS: Absolute Lymphocyte Count 1.58 X10^3/ul (0.83-4.51); Absolute Neutrophil Count 4.5 X10^3/uL (2.0-7.7); Basophil# 0.02 X10^3/uL; Basophil% 0.3 % (0-1); Eosinophil# 0.11 X10^3/uL; Eosinophils% 1.6 % (0-5); Hematocrit 39.6 % (40-54); Hemoglobin 12.4 g/dl (13.0-16.5); Lymphocyte # 1.58 X10^3/ul (4.0); Lymphocyte % 23.1 % (19-41); Mean Corp Hgb Conc 31.3 g/gl (32-36); Mean Corpuscular Hgb 26.4 pg (27.0-32.0); Mean Corpuscular Volume 84.4 fL (80-94); Mean Platelet Vol. 9.3 fl (6.2-12.0); Monocyte% 8.8 % (0-10); Neutrophil # 4.51 X10^3/uL (2.7-7.7); Neutrophil % 66.1 % (47-70); POSITIVE COUNT NO; POSITIVE DIFFERENTIAL NO; POSITIVE MORPHOLOGY NO; Platelet Count 221 K/mm3 (150-450); RBC Distribution Width CV 14.5 % (11.6-14.6); RBC Distribution Width SD 45.2 fl (35.1-43.9); Red Blood Count 4.69 M/mm3 (4.6-6.2); White Blood Count 6.8 K/mm3 (4.4-11.0)
[2018-11-09] MEDS: Aspirin 81 MG TAB.CHEW 324 MG PO (14:30)
[2018-11-09 14:50] LABS: AST(SGOT) 42 U/L (15-37); Alanine Aminotransfer ALT/SGPT 66 U/L (16-61); Albumin, Serum 3.1 g/dL (3.2-5.0); Alkaline Phosphatase 197 U/L (45-117); Anion Gap 3 (5-15); BUN 11 mg/dL (7-18); BUN/Creat Ratio 11.5 RATIO (10-20); Bilirubin, Direct 0.77 mg/dL (0.00-0.30); Calcium,Total 8.5 mg/dL (8.5-10.1); Chloride 107 mmol/L (98-107); Creatinine, Serum 0.96 mg/dL (0.70-1.30); EST Glomerular Filtration Rate 81 mL/min (>60); Est Glom Filt Rate - Afr Amer 98 mL/min (>60); Estimated Creatinine Clearance 86.76 ml/min; Globulin 4.1 g/dL (2.2-4.2); Glucose 146 mg/dL (74-106); Lipase 313 U/L (73-393); Protein, Total 7.2 g/dL (6.4-8.2); Sodium Level 139 mmol/L (136-145)
--- NOTE | 2018-11-09 14:54 | EKG12_ITS ---
Test Reason : REPEAT EKG Blood Pressure : / mmHG Vent. Rate : 071 BPM Atrial Rate : 071 BPM P-R Int : 214 ms QRS Dur : 116 ms QT Int : 414 ms P-R-T Axes : 036 -38 079 degrees QTc Int : 449 ms Sinus rhythm with 1st degree A-V block Left axis deviation Anteroseptal infarct , age undetermined Abnormal ECG Confirmed by STEVE WILLIS ([id number]), assistant editor HANNA MORENO ([id number]) on 11/12/2018 4:41:44 PM Referred By: YURI Confirmed By:STEVE WILLIS
[2018-11-09] MEDS: Enoxaparin 100 MG/ML Syringe 110 MG SC (15:13)
[2018-11-09] MEDS: TICAGRELOR 90 MG TABLET 180 MG PO (15:14)
--- NOTE | 2018-11-09 15:17 | NURSING ---
PCU NSTEMI ROSALINA
--- NOTE | 2018-11-09 16:42 | CASEMGMT ---
RN CM Assessment Introduced role of RN CM to patient. Patient is alert, oriented and able to participate in RN CM Assessment. Care providers, pharmacy, and demographics verified. ER- 2/4 for n/v Presentation: CC: YAJAIRA PCP: Dr Lam Huffman Specialists: None Preferred Pharmacy: [facility] Insurance: Medicare A&B, States that paperwork for Medicaid is in process currently, awaiting approval or Denial. Prescription Benefit: Yes LNOK: Brother Man Boles (1st to contact), and mandoer Rodrigue Jorgitomatt. LW/POA- None, patient advised offer services here and asked if would like information/complete, patient refused at this time. Living Arrangements: Lives alone on Ground Level Apartment, no steps to enter. Independent with ambulation, using cane as needed sometimes, Independent with ADL's. Transportation: DME: [facility] HHC: Current with [facility], had a PT 1 time eval with no further need, and RN- Resumption needed SNF: [facility] after surgery DC PLAN: Home with Resumption of HH RN. Goal: Home Gurpreet Denise RNCM
--- NOTE | 2018-11-09 16:44 | EKG12_ITS ---
Test Reason : AM EKG Blood Pressure : / mmHG Vent. Rate : 066 BPM Atrial Rate : 066 BPM P-R Int : 192 ms QRS Dur : 118 ms QT Int : 442 ms P-R-T Axes : 055 -20 087 degrees QTc Int : 463 ms Normal sinus rhythm Anteroseptal infarct , age undetermined Abnormal ECG When compared with ECG of 12-NOV-2018 08:59, MANUAL COMPARISON REQUIRED, DATA IS UNCONFIRMED Confirmed by LILIAN MURRAY, MONTRELL ([id number]), state editor ELIN CORONA ([id number]) on 11/14/2018 8:55:18 AM Referred By: PEPE Confirmed By:MONTRELL QUINTANA MD
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
--- NOTE | 2018-11-09 17:04 | ECHOCS_ITS ---
Reason For Study: NSTEMI Procedure This was a 2D Doppler, Color Flow transthoracic echocardiogram. Exam performed portable in patient room. Left Ventricle Mild concentric left ventricular hypertrophy. The estimated ejection fraction is 50 %. Stage 1 diastolic dysfunction. Mid-Anterior : Mildly hypokinetic. Mid-anteroseptal : Mildly hypokinetic. Anterior [place] : Akinetic. Inferior [place] : Akinetic. There are regional wall motion abnormalities as specified. Right Ventricle Normal size and thickness. Normal systolic function. Atria Normal left atrium. Normal right atrium. Normal atrial septum. Mitral Valve The mitral valve is structurally normal. No prolapse or stenosis seen. Tricuspid Valve Normal tricuspid valve. Trivial tricuspid valve insufficiency. Right ventricular systolic pressure estimated to be 22 mmHg. Aortic Valve Trisinus/trileaflet aortic valve. Mild diffuse aortic valve thickening. Mild (1+) aortic valve insufficiency. Pulmonic Valve Normal pulmonic valve. Mild (1+) pulmonic valve insufficiency. Great Vessels Normal aortic root. Normal arch. Normal inferior vena cava. Pericardium/Pleural No pericardial effusion. MMode/2D Measurements & Calculations LVIDd: 4.2 cm IVSd: 1.3 cm Ao root diam: 4.1 cm LVIDs: 2.8 cm LVPWd: 1.2 cm LA dimension: 3.8 cm FS: 34.0 % LAV(MOD-bp): 46.0 ml LA A4 area: 18.8 cm2 LA dimension(2D): 2.6 cm LAV(MOD-bp) Indexed: 18.6 ml/m2 LAV(MOD-sp2): 35.1 ml LAV(MOD-sp4): 55.5 ml RA A4 area: 16.3 cm2 Doppler Measurements & Calculations MV E max ilia: 47.3 cm/sec Lat Peak E' Ilia: 3.0 cm/sec Med Peak E' Ilia: 2.9 cm/sec MV A max ilia: 69.5 cm/sec E/E' lat: 15.6 E/E' med: 16.2 MV E/A: 0.68 Ao V2 max: 111.8 cm/sec AI max ilia: 408.6 cm/sec LV V1 max: 100.0 cm/sec Ao max P.0 mmHg AI max P.8 mmHg LV V1 max P.0 mmHg AI dec slope: 171.9 cm/sec2 AI P1/2t: 696.2 msec PA V2 max: 100.9 cm/sec TR max ilia: 204.9 cm/sec TR max P.8 mmHg Interpretation Summary The estimated ejection fraction is 50 %. Stage 1 diastolic dysfunction. There are regional wall motion abnormalities as specified. Trivial tricuspid valve insufficiency. Right ventricular systolic pressure estimated to be 22 mmHg. Mild (1+) aortic valve insufficiency. There is no comparison study available. Ordering Physician: Kwasi Naranjo Referring Physician: Lam Huffman M.D. Performed By: Lilliam Tong RDCS
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
[2018-11-09] MEDS: Nitroglycerin Oint 1 INCH PACKET 0.5 INCH TRANSDERM. ×2 (18:10→23:27)
[2018-11-09 18:40] LABS: BNP,B-Type NATRIURETIC PEPTIDE 128.1 pg/mL (0-100)
[2018-11-09] MEDS: Carvedilol 6.25 MG Tablet PO (20:50)
[2018-11-09] MEDS: TICAGRELOR 90 MG TABLET PO (20:50)
[2018-11-09] MEDS: Atorvastatin Calcium 40 MG Tablet PO (20:50)
[2018-11-09] MEDS: Senna Tablet 2 TABLET PO (20:50)
--- NOTE | 2018-11-09 23:58 | NURSING ---
Verbal report received for Lani Casey RN. This RN will resume care of pt at this time.
[2018-11-10] VITALS (19 sets, daily range): BP systolic 102–135; BP diastolic 60–80; PULSE 63–86; RESP 14–18; TEMP 36.3–36.7; O2SAT 94–98
[2018-11-10 03:16] LABS: Hematocrit 36.1 % (40-54); Hemoglobin 11.7 g/dl (13.0-16.5); Mean Corp Hgb Conc 32.4 g/gl (32-36); Mean Corpuscular Hgb 27.5 pg (27.0-32.0); Mean Corpuscular Volume 84.7 fL (80-94); Mean Platelet Vol. 9.5 fl (6.2-12.0); Platelet Count 230 K/mm3 (150-450); RBC Distribution Width CV 14.4 % (11.6-14.6); RBC Distribution Width SD 43.6 fl (35.1-43.9); Red Blood Count 4.26 M/mm3 (4.6-6.2); White Blood Count 6.3 K/mm3 (4.4-11.0)
[2018-11-10 03:21] LABS: Scan Indicated on CBC? Y/N NO
[2018-11-10 03:39] LABS: Cholesterol 180 mg/dL (200); High Density Lipoprotein 27 mg/dL; Triglycerides 120 mg/dL; Very Low Density Lipoprotein 24 mg/dL (5-40)
[2018-11-10] MEDS: Nitroglycerin Oint 1 INCH PACKET 0.5 INCH TRANSDERM. ×4 (06:36→23:33)
[2018-11-10] MEDS: Enoxaparin 120 MG/0.8 ML Syringe 110 MG SC ×2 (06:43→18:01)
[2018-11-10] MEDS: Aspirin E.C. 81 MG Tablet PO (08:39)
[2018-11-10] MEDS: Senna Tablet 2 TABLET PO ×2 (09:38→21:40)
[2018-11-10] MEDS: TICAGRELOR 90 MG TABLET PO ×2 (09:38→21:40)
[2018-11-10] MEDS: Lisinopril 5 MG Tablet PO (09:38)
[2018-11-10] MEDS: Carvedilol 6.25 MG Tablet PO ×2 (09:38→21:40)
--- NOTE | 2018-11-10 10:32 | PCM.PN.CARD ---
Subjectve: Patient is done well overnight, no acute events. No chest pain or angina. Telemetry shows normal sinus rhythm, no ventricular arrhythmias. Peak troponin is 1.290, and decreased to 1.1. Echocardiogram is pending. Objective: Vital Signs Temp Pulse Resp BP Pulse Ox 97.4 F L 64 16 112/66 96 11/10/18 09:47 11/10/18 09:47 11/10/18 09:47 11/10/18 09:47 11/10/18 09:47 Oxygen Delivery Method Room Air Weight: 242 lb 15.19 oz Body Mass Index (BMI) 27.3 Intake and Output for Last 24 Hours 11/08/18 11/09/18 11/10/18 23:59 23:59 23:59 Intake Total 700 / 700 0 / 0 Output Total 1320 / 1320 275 / 275 Balance -620 / -620 -275 / -275 General: Awake, Alert, Oriented x 3 HEENT: PERRL, EOMI, Sclera Non Icteric Neck: Supple, Good ROM, No Lymph Node Enlargement Lungs: Clear to auscultation Cardiovascular: Regular Rhythm, Normal S1, Normal S2, No Murmurs, No Rubs, No Gallops Vascular: No Carotid Bruits, Normal Femoral Pulses, Normal Radial Pulses, Normal Dorsalis Pedal Pulse, Normal Posterior Tibial Pulses Abdomen: Bowel Sounds Present, Soft, Non Tender, No HSM, No Organomegaly Extremities: No Cyanosis, No Clubbing, No edema Neurological: No Focal Motor or Sensory Deficit 11/09/18 14:10: WBC 6.8, RBC 4.69, Hgb 12.4 L, Hct 39.6 L, MCV 84.4, MCH 26.4 L, MCHC 31.3 L, RDW 14.5, RDW Differential 45.2 H, Plt Count 221, MPV 9.3, Immature Gran % (Auto) 0.100, Neut % (Auto) 66.1, Lymph % (Auto) 23.1, [place] % (Auto) 8.8, Eos % (Auto) 1.6, Baso % (Auto) 0.3, Absolute Neuts (auto) 4.5, Total Counted Not Reportable 11/09/18 14:10: Sodium 139, Potassium 4.0, Chloride 107, Carbon Dioxide 29.0, Anion Gap 3 L, BUN 11, Creatinine 0.96, Est GFR (MDRD) Af Amer 98, Est GFR (MDRD) Non-Af 81, BUN/Creatinine Ratio 11.5, Glucose 146 H, Calcium 8.5, Total Bilirubin 1.00, Direct Bilirubin 0.77 H, Troponin I 0.334 H 11/09/18 17:50: Troponin I 0.413 H 11/09/18 17:50: B-Natriuretic Peptide 128.1 H 11/09/18 20:19: Troponin I 0.594 H 11/10/18 03:02: WBC 6.3, RBC 4.26 L, Hgb 11.7 L, Hct 36.1 L, MCV 84.7, MCH 27.5, MCHC 32.4, RDW 14.4, RDW Differential 43.6, Plt Count 230, MPV 9.5 11/10/18 03:02: Triglycerides 120, Cholesterol 180, LDL Cholesterol 129, VLDL Cholesterol 24, HDL Cholesterol 27 L 11/10/18 03:02: Troponin I 1.290 H* 11/10/18 09:00: Troponin I 1.100 H* Rhythm: EKG: ECHO: Pending Stress Test: Cardiac Cath: PCI: CT Surgery: Holter monitor: EPS: PPM: CXR: Chest CT Scan: Medical Necessity - Tobacco Use Smoking Status: Former smoker Assessment/Plan 1. Unstable angina: The patient has new onset chest pain occurring about 3 days prior to admission and recurring on the day of admission with walking to his car and driving to his PCPs office. Patient has new dynamic EKG changes with T wave inversion in the anterior leads as well as evidence of Q waves possibly suggesting recent myocardial infarction around the time of his recent gallbladder surgery. Patient underwent laparoscopic cholecystectomy about 3 weeks ago, and his wound sites are well-healed. Patient is currently chest pain-free and has remained chest pain-free overnight, and given his presentation, abnormal EKG, abnormal troponins, and risk factors, I would recommend that he be treated with baby aspirin, loaded with Brilinta 180 mg x1 now followed by 90 mg p.o. twice daily, beta-blockers, HERNANDO inhibitors or ARBs, and subcu Lovenox. Would recommend 1/2 inch nitroglycerin paste every 6 hours to keep patient chest pain-free. Patient will require diagnostic coronary angiogram this upcoming Monday or sooner if the patient's symptoms recur despite maximal medical therapy. In the meantime we will order a 2D echo with Doppler which will be done tomorrow to assess his LV function. Echocardiogram performed this morning with preliminary results demonstrated anterior hypokinesis. If the patient has recurrent chest pain symptoms I would have a low threshold to bring the patient to the catheterization lab on a more urgent basis. Patient reports that he has 2 family members who are pin chaser in the [place] area, and may request transfer prep sometime this weekend. If this is the case, I recommend transfer to [facility] care of Dr. Abdul. 2. Hyperlipidemia: LDL is 129, HDL is 27. Continue Lipitor therapy. Repeat lipids in 6 weeks time. 3. Recent gallbladder surgery: The patient's wound sites appear to be well-healed. He has nontender in his abdominal cavity. I do not believe the patient's symptoms are gallbladder related at this time. 4. Thank you very much for the opportunity to participate in the cardiac care of your patient. Catheterization tentatively planned for this Monday morning. Code Visit Inpatient E&M: 91247 Subs Hosp L2
--- NOTE | 2018-11-10 10:35 | PN.CARD_ITS ---
Subjectve: Patient is done well overnight, no acute events. No chest pain or angina. Telemetry shows normal sinus rhythm, no ventricular arrhythmias. Peak troponin is 1.290, and decreased to 1.1. Echocardiogram is pending. Objective: Vital Signs Temp Pulse Resp BP Pulse Ox 97.4 F L 64 16 112/66 96 11/10/18 09:47 11/10/18 09:47 11/10/18 09:47 11/10/18 09:47 11/10/18 09:47 Oxygen Delivery Method Room Air Weight: 242 lb 15.19 oz Body Mass Index (BMI) 27.3 Intake and Output for Last 24 Hours 11/08/18 11/09/18 11/10/18 23:59 23:59 23:59 Intake Total 700 / 700 0 / 0 Output Total 1320 / 1320 275 / 275 Balance -620 / -620 -275 / -275 General: Awake, Alert, Oriented x 3 HEENT: PERRL, EOMI, Sclera Non Icteric Neck: Supple, Good ROM, No Lymph Node Enlargement Lungs: Clear to auscultation Cardiovascular: Regular Rhythm, Normal S1, Normal S2, No Murmurs, No Rubs, No Gallops Vascular: No Carotid Bruits, Normal Femoral Pulses, Normal Radial Pulses, Normal Dorsalis Pedal Pulse, Normal Posterior Tibial Pulses Abdomen: Bowel Sounds Present, Soft, Non Tender, No HSM, No Organomegaly Extremities: No Cyanosis, No Clubbing, No edema Neurological: No Focal Motor or Sensory Deficit 11/09/18 14:10: WBC 6.8, RBC 4.69, Hgb 12.4 L, Hct 39.6 L, MCV 84.4, MCH 26.4 L, MCHC 31.3 L, RDW 14.5, RDW Differential 45.2 H, Plt Count 221, MPV 9.3, Immature Gran % (Auto) 0.100, Neut % (Auto) 66.1, Lymph % (Auto) 23.1, [place] % (Auto) 8.8, Eos % (Auto) 1.6, Baso % (Auto) 0.3, Absolute Neuts (auto) 4.5, Total Counted Not Reportable 11/09/18 14:10: Sodium 139, Potassium 4.0, Chloride 107, Carbon Dioxide 29.0, Anion Gap 3 L, BUN 11, Creatinine 0.96, Est GFR (MDRD) Af Amer 98, Est GFR (MDRD) Non-Af 81, BUN/Creatinine Ratio 11.5, Glucose 146 H, Calcium 8.5, Total Bilirubin 1.00, Direct Bilirubin 0.77 H, Troponin I 0.334 H 11/09/18 17:50: Troponin I 0.413 H 11/09/18 17:50: B-Natriuretic Peptide 128.1 H 11/09/18 20:19: Troponin I 0.594 H 11/10/18 03:02: WBC 6.3, RBC 4.26 L, Hgb 11.7 L, Hct 36.1 L, MCV 84.7, MCH 27.5, MCHC 32.4, RDW 14.4, RDW Differential 43.6, Plt Count 230, MPV 9.5 11/10/18 03:02: Triglycerides 120, Cholesterol 180, LDL Cholesterol 129, VLDL Cholesterol 24, HDL Cholesterol 27 L 11/10/18 03:02: Troponin I 1.290 H* 11/10/18 09:00: Troponin I 1.100 H* Rhythm: EKG: ECHO: Pending Stress Test: Cardiac Cath: PCI: CT Surgery: Holter monitor: EPS: PPM: CXR: Chest CT Scan: Medical Necessity - Tobacco Use Smoking Status: Former smoker Assessment/Plan 1. Unstable angina: The patient has new onset chest pain occurring about 3 days prior to admission and recurring on the day of admission with walking to his car and driving to his PCPs office. Patient has new dynamic EKG changes with T wave inversion in the anterior leads as well as evidence of Q waves possibly suggesting recent myocardial infarction around the time of his recent gallbladder surgery. Patient underwent laparoscopic cholecystectomy about 3 weeks ago, and his wound sites are well-healed. Patient is currently chest pain-free and has remained chest pain-free overnight, and given his presentation, abnormal EKG, abnormal troponins, and risk factors, I would recommend that he be treated with baby aspirin, loaded with Brilinta 180 mg x1 now followed by 90 mg p.o. twice daily, beta-blockers, HERNANDO inhibitors or ARBs, and subcu Lovenox. Would recommend 1/2 inch nitroglycerin paste every 6 hours to keep patient chest pain-free. Patient will require diagnostic coronary angiogram this upcoming Monday or sooner if the patient's symptoms recur despite maximal medical therapy. In the meantime we will order a 2D echo with Doppler which will be done tomorrow to assess his LV function. Echocardiogram performed this morning with preliminary results demonstrated anterior hypokinesis. If the patient has recurrent chest pain symptoms I would have a low threshold to bring the patient to the catheterization lab on a more urgent basis. Patient reports that he has 2 family members who are gun numberer in the [place] area, and may request transfer prep sometime this weekend. If this is the case, I recommend transfer to [facility] care of Dr. Abdul. 2. Hyperlipidemia: LDL is 129, HDL is 27. Continue Lipitor therapy. Repeat lipids in 6 weeks time. 3. Recent gallbladder surgery: The patient's wound sites appear to be well- healed. He has nontender in his abdominal cavity. I do not believe the patient's symptoms are gallbladder related at this time. 4. Thank you very much for the opportunity to participate in the cardiac care of your patient. Catheterization tentatively planned for this Monday morning. Code Visit Inpatient E&M: 03127 Subs Hosp L2
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
[2018-11-10] MEDS: Atorvastatin Calcium 40 MG Tablet PO (21:40)
[2018-11-11] VITALS (14 sets, daily range): BP systolic 101–128; BP diastolic 53–76; PULSE 57–78; RESP 16–18; TEMP 36.4–37.1; O2SAT 96–98
[2018-11-11] MEDS: Nitroglycerin Oint 1 INCH PACKET 0.5 INCH TRANSDERM. ×3 (05:51→18:51)
[2018-11-11] MEDS: Enoxaparin 120 MG/0.8 ML Syringe 110 MG SC ×2 (05:53→18:53)
[2018-11-11] MEDS: Senna Tablet 2 TABLET PO (08:28)
[2018-11-11] MEDS: Carvedilol 6.25 MG Tablet PO ×2 (08:28→22:42)
[2018-11-11] MEDS: Aspirin E.C. 81 MG Tablet PO (08:28)
[2018-11-11] MEDS: TICAGRELOR 90 MG TABLET PO ×2 (08:28→22:42)
[2018-11-11] MEDS: Lisinopril 5 MG Tablet PO (08:28)
[2018-11-11 08:36] LABS: Absolute Lymphocyte Count 2.08 X10^3/ul (0.83-4.51); Absolute Neutrophil Count 3.5 X10^3/uL (2.0-7.7); Basophil# 0.02 X10^3/uL; Basophil% 0.3 % (0-1); Eosinophil# 0.12 X10^3/uL; Eosinophils% 1.9 % (0-5); Hematocrit 35.7 % (40-54); Hemoglobin 11.7 g/dl (13.0-16.5); Lymphocyte # 2.08 X10^3/ul (4.0); Lymphocyte % 33.4 % (19-41); Mean Corp Hgb Conc 32.8 g/gl (32-36); Mean Corpuscular Hgb 27.3 pg (27.0-32.0); Mean Corpuscular Volume 83.4 fL (80-94); Mean Platelet Vol. 9.3 fl (6.2-12.0); Monocyte# 0.46 X10^3/uL; Monocyte% 7.4 % (0-10); Neutrophil # 3.53 X10^3/uL (2.7-7.7); Neutrophil % 56.7 % (47-70); POSITIVE COUNT NO; POSITIVE DIFFERENTIAL NO; POSITIVE MORPHOLOGY NO; Platelet Count 243 K/mm3 (150-450); RBC Distribution Width CV 14.5 % (11.6-14.6); Red Blood Count 4.28 M/mm3 (4.6-6.2); White Blood Count 6.2 K/mm3 (4.4-11.0)
[2018-11-11 08:44] LABS: Anion Gap 7 (5-15); BUN 13 mg/dL (7-18); BUN/Creat Ratio 15.5 RATIO (10-20); Calcium,Total 8.6 mg/dL (8.5-10.1); Chloride 108 mmol/L (98-107); Creatinine, Serum 0.84 mg/dL (0.70-1.30); EST Glomerular Filtration Rate 95 mL/min (>60); Est Glom Filt Rate - Afr Amer 114 mL/min (>60); Estimated Creatinine Clearance 99.15 ml/min; Glucose 106 mg/dL (74-106); Potassium 3.7 mmol/L (3.5-5.1); Sodium Level 140 mmol/L (136-145)
--- NOTE | 2018-11-11 09:34 | PCM.PN.CARD ---
Subjectve: Patient doing very well. Overnight he had some atypical right-sided chest wall pain which improved with repositioning his body. Apparently he was sleeping at an angle on his right side. Telemetry shows normal sinus rhythm. No chest pain symptoms that brought him to the hospital. Objective: Vital Signs Temp Pulse Resp BP Pulse Ox 98.1 F 57 L 17 107/64 97 11/11/18 08:11 11/11/18 08:11 11/11/18 08:11 11/11/18 08:11 11/11/18 08:11 Oxygen Delivery Method Room Air Weight: 242 lb 15.19 oz Body Mass Index (BMI) 27.3 Intake and Output for Last 24 Hours 11/09/18 11/10/18 11/11/18 23:59 23:59 23:59 Intake Total 700 / 700 840 / 840 Output Total 1320 / 1320 275 / 275 Balance -620 / -620 565 / 565 General: Awake, Alert, Oriented x 3 HEENT: PERRL, EOMI, Sclera Non Icteric Neck: Supple, Good ROM, No Lymph Node Enlargement Lungs: Clear to auscultation Cardiovascular: Regular Rhythm, Normal S1, Normal S2, No Murmurs, No Rubs, No Gallops Vascular: No Carotid Bruits, Normal Femoral Pulses, Normal Radial Pulses, Normal Dorsalis Pedal Pulse, Normal Posterior Tibial Pulses Abdomen: Bowel Sounds Present, Soft, Non Tender, No HSM, No Organomegaly Extremities: No Cyanosis, No Clubbing, No edema Neurological: No Focal Motor or Sensory Deficit 11/11/18 08:07: WBC 6.2, RBC 4.28 L, Hgb 11.7 L, Hct 35.7 L, MCV 83.4, MCH 27.3, MCHC 32.8, RDW 14.5, RDW Differential 44.0 H, Plt Count 243, MPV 9.3, Immature Gran % (Auto) 0.300, Neut % (Auto) 56.7, Lymph % (Auto) 33.4, [place] % (Auto) 7.4, Eos % (Auto) 1.9, Baso % (Auto) 0.3, Absolute Neuts (auto) 3.5, Total Counted Not Reportable 11/11/18 08:07: Sodium 140, Potassium 3.7, Chloride 108 H, Carbon Dioxide 25.0, Anion Gap 7, BUN 13, Creatinine 0.84, Est GFR (MDRD) Af Amer 114, Est GFR (MDRD) Non-Af 95, BUN/Creatinine Ratio 15.5, Glucose 106, Calcium 8.6 Rhythm: EKG: ECHO: Mid anterior and apical hypokinesis, overall ejection fraction around 50%. RVSP of 22 mmHg, 1+ aortic insufficiency. Stress Test: Cardiac Cath: Pending PCI: CT Surgery: Holter monitor: EPS: PPM: CXR: Chest CT Scan: Medical Necessity - Tobacco Use Smoking Status: Former smoker Assessment/Plan 1. Unstable angina: The patient has new onset chest pain occurring about 3 days prior to admission and recurring on the day of admission with walking to his car and driving to his PCPs office. Patient has new dynamic EKG changes with T wave inversion in the anterior leads as well as evidence of Q waves possibly suggesting recent myocardial infarction around the time of his recent gallbladder surgery. Patient underwent laparoscopic cholecystectomy about 3 weeks ago, and his wound sites are well-healed. Patient is currently chest pain-free and has remained chest pain-free overnight, and given his presentation, abnormal EKG, abnormal troponins, and risk factors, I would recommend that he be treated with baby aspirin, loaded with Brilinta 180 mg x1 now followed by 90 mg p.o. twice daily, beta-blockers, HERNANDO inhibitors or ARBs, and subcu Lovenox. Would recommend 1/2 inch nitroglycerin paste every 6 hours to keep patient chest pain-free. Patient will require diagnostic coronary angiogram this upcoming Monday or sooner if the patient's symptoms recur despite maximal medical therapy. Patient underwent 2D echo Doppler yesterday, which showed an EF around 50% with mid anterior and apical hypokinesis consistent with his abnormal EKG. His RVSP was 22 mmHg, and he appears to have 1+ aortic insufficiency. Patient is scheduled to undergo left heart catheterization tomorrow morning. If the patient has recurrent chest pain symptoms I would have a low threshold to bring the patient to the catheterization lab on a more urgent basis. Patient reports that he has 2 family members who are civil structural designer in the [place] area, and may request transfer prep sometime this weekend. If this is the case, I recommend transfer to [facility] care of Dr. Abdul. 2. Hyperlipidemia: LDL is 129, HDL is 27. Continue Lipitor therapy. Repeat lipids in 6 weeks time. 3. Recent gallbladder surgery: The patient's wound sites appear to be well-healed. He has nontender in his abdominal cavity. I do not believe the patient's symptoms are gallbladder related at this time. 4. Thank you very much for the opportunity to participate in the cardiac care of your patient. Catheterization tentatively planned for this Monday morning. Code Visit Inpatient E&M: [id number] Subs Hosp L2
--- NOTE | 2018-11-11 09:37 | PN.CARD_ITS ---
Subjectve: Patient doing very well. Overnight he had some atypical right-sided chest wall pain which improved with repositioning his body. Apparently he was sleeping at an angle on his right side. Telemetry shows normal sinus rhythm. No chest pain symptoms that brought him to the hospital. Objective: Vital Signs Temp Pulse Resp BP Pulse Ox 98.1 F 57 L 17 107/64 97 11/11/18 08:11 11/11/18 08:11 11/11/18 08:11 11/11/18 08:11 11/11/18 08:11 Oxygen Delivery Method Room Air Weight: 242 lb 15.19 oz Body Mass Index (BMI) 27.3 Intake and Output for Last 24 Hours 11/09/18 11/10/18 11/11/18 23:59 23:59 23:59 Intake Total 700 / 700 840 / 840 Output Total 1320 / 1320 275 / 275 Balance -620 / -620 565 / 565 General: Awake, Alert, Oriented x 3 HEENT: PERRL, EOMI, Sclera Non Icteric Neck: Supple, Good ROM, No Lymph Node Enlargement Lungs: Clear to auscultation Cardiovascular: Regular Rhythm, Normal S1, Normal S2, No Murmurs, No Rubs, No Gallops Vascular: No Carotid Bruits, Normal Femoral Pulses, Normal Radial Pulses, Normal Dorsalis Pedal Pulse, Normal Posterior Tibial Pulses Abdomen: Bowel Sounds Present, Soft, Non Tender, No HSM, No Organomegaly Extremities: No Cyanosis, No Clubbing, No edema Neurological: No Focal Motor or Sensory Deficit 11/11/18 08:07: WBC 6.2, RBC 4.28 L, Hgb 11.7 L, Hct 35.7 L, MCV 83.4, MCH 27.3, MCHC 32.8, RDW 14.5, RDW Differential 44.0 H, Plt Count 243, MPV 9.3, Immature Gran % (Auto) 0.300, Neut % (Auto) 56.7, Lymph % (Auto) 33.4, [place] % (Auto) 7.4, Eos % (Auto) 1.9, Baso % (Auto) 0.3, Absolute Neuts (auto) 3.5, Total Counted Not Reportable 11/11/18 08:07: Sodium 140, Potassium 3.7, Chloride 108 H, Carbon Dioxide 25.0, Anion Gap 7, BUN 13, Creatinine 0.84, Est GFR (MDRD) Af Amer 114, Est GFR (MDRD) Non-Af 95, BUN/Creatinine Ratio 15.5, Glucose 106, Calcium 8.6 Rhythm: EKG: ECHO: Mid anterior and apical hypokinesis, overall ejection fraction around 50%. RVSP of 22 mmHg, 1+ aortic insufficiency. Stress Test: Cardiac Cath: Pending PCI: CT Surgery: Holter monitor: EPS: PPM: CXR: Chest CT Scan: Medical Necessity - Tobacco Use Smoking Status: Former smoker Assessment/Plan 1. Unstable angina: The patient has new onset chest pain occurring about 3 days prior to admission and recurring on the day of admission with walking to his car and driving to his PCPs office. Patient has new dynamic EKG changes with T wave inversion in the anterior leads as well as evidence of Q waves possibly suggesting recent myocardial infarction around the time of his recent gallbladder surgery. Patient underwent laparoscopic cholecystectomy about 3 weeks ago, and his wound sites are well-healed. Patient is currently chest pain-free and has remained chest pain-free overnight, and given his presentation, abnormal EKG, abnormal troponins, and risk factors, I would recommend that he be treated with baby aspirin, loaded with Brilinta 180 mg x1 now followed by 90 mg p.o. twice daily, beta-blockers, HERNANDO inhibitors or ARBs, and subcu Lovenox. Would recommend 1/2 inch nitroglycerin paste every 6 hours to keep patient chest pain-free. Patient will require diagnostic coronary angiogram this upcoming Monday or sooner if the patient's symptoms recur despite maximal medical therapy. Patient underwent 2D echo Doppler yesterday, which showed an EF around 50% with mid anterior and apical hypokinesis consistent with his abnormal EKG. His RVSP was 22 mmHg, and he appears to have 1+ aortic insufficiency. Patient is scheduled to undergo left heart catheterization tomorrow morning. If the patient has recurrent chest pain symptoms I would have a low threshold to bring the patient to the catheterization lab on a more urgent basis. Patient reports that he has 2 family members who are interior design teacher in the [place] area, and may request transfer prep sometime this weekend. If this is the case, I recommend transfer to [facility] care of Dr. Abdul. 2. Hyperlipidemia: LDL is 129, HDL is 27. Continue Lipitor therapy. Repeat lipids in 6 weeks time. 3. Recent gallbladder surgery: The patient's wound sites appear to be well- healed. He has nontender in his abdominal cavity. I do not believe the patient's symptoms are gallbladder related at this time. 4. Thank you very much for the opportunity to participate in the cardiac care of your patient. Catheterization tentatively planned for this Monday morning. Code Visit Inpatient E&M: [id number] Subs Hosp L2
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
[2018-11-11] MEDS: Pantoprazole Sodium 40 MG Tablet PO (12:48)
[2018-11-11] MEDS: Atorvastatin Calcium 40 MG Tablet PO (22:42)
[2018-11-12] VITALS (27 sets, daily range): BP systolic 102–142; BP diastolic 44–77; PULSE 54–74; RESP 10–31; TEMP 36.4–37.1; O2SAT 95–100
[2018-11-12] MEDS: Nitroglycerin Oint 1 INCH PACKET 0.5 INCH TRANSDERM. ×2 (00:44→06:24)
[2018-11-12 06:03] LABS: Anion Gap 7 (5-15); BUN 13 mg/dL (7-18); BUN/Creat Ratio 15.1 RATIO (10-20); Calcium,Total 8.5 mg/dL (8.5-10.1); Chloride 108 mmol/L (98-107); Creatinine, Serum 0.86 mg/dL (0.70-1.30); EST Glomerular Filtration Rate 92 mL/min (>60); Est Glom Filt Rate - Afr Amer 111 mL/min (>60); Estimated Creatinine Clearance 96.85 ml/min; Glucose 90 mg/dL (74-106); Potassium 3.5 mmol/L (3.5-5.1); Sodium Level 141 mmol/L (136-145)
[2018-11-12 06:10] LABS: International Normalized Ratio 1.1
[2018-11-12 06:11] LABS: Partial Thromboplast Time 40.1 Seconds (24.1-36.2)
[2018-11-12 06:21] LABS: Absolute Lymphocyte Count 1.83 X10^3/ul (0.83-4.51); Absolute Neutrophil Count 3.2 X10^3/uL (2.0-7.7); Basophil# 0.02 X10^3/uL; Basophil% 0.3 % (0-1); Eosinophil# 0.14 X10^3/uL; Eosinophils% 2.4 % (0-5); Hematocrit 36.9 % (40-54); Lymphocyte # 1.83 X10^3/ul (4.0); Lymphocyte % 31.9 % (19-41); Mean Corp Hgb Conc 32.5 g/gl (32-36); Mean Corpuscular Hgb 27.5 pg (27.0-32.0); Mean Corpuscular Volume 84.4 fL (80-94); Mean Platelet Vol. 9.8 fl (6.2-12.0); Monocyte# 0.57 X10^3/uL; Monocyte% 9.9 % (0-10); Neutrophil # 3.16 X10^3/uL (2.7-7.7); Neutrophil % 55.3 % (47-70); Platelet Count 245 K/mm3 (150-450); RBC Distribution Width CV 14.3 % (11.6-14.6); RBC Distribution Width SD 43.3 fl (35.1-43.9); Red Blood Count 4.37 M/mm3 (4.6-6.2); White Blood Count 5.7 K/mm3 (4.4-11.0)
[2018-11-12] MEDS: 0.9% Normal Saline 1,000 ML 15 ML IV (06:24)
[2018-11-12] MEDS: TICAGRELOR 90 MG TABLET PO ×2 (06:25→21:07)
[2018-11-12] MEDS: Aspirin E.C. 81 MG Tablet PO (06:25)
[2018-11-12] MEDS: Carvedilol 6.25 MG Tablet PO ×2 (06:26→21:07)
[2018-11-12 06:28] LABS: POSITIVE COUNT NO; POSITIVE DIFFERENTIAL NO; POSITIVE MORPHOLOGY NO
[2018-11-12] MEDS: 0.9% NaCl Peripheral Flush Adult/Peds IV (06:28)
--- NOTE | 2018-11-12 07:15 | NURSING ---
This RN and liliana RN gave report to Electromatic Typist ALIA Sanches
[2018-11-12] MEDS: DiphenhydrAMINE 25 MG Capsule 50 MG PO (07:20)
[2018-11-12 07:21] LABS: Color, Urine Yellow (Yellow); Glucose, Dipstick Normal (Normal); Ketone-Dipstick Negative (Negative); Leukocyte Esterase-Dipstick Negative /ul (Negative); Nitrite-Dipstick Negative (Negative); Occult Blood-Urine Negative /ul (Negative); Protein-Dipstick Negative (Negative); Urine Bilirubin Dipstick Negative (Negative); Urine Clarity Clear (Clear); Urine Urobilinogen Normal (Normal); Urine pH 6.5 (5.0 - 8.0)
[2018-11-12 07:27] LABS: Mucous, Urine 0 SEEN /hpf (<or=2+); Red Blood Cells-Urine 0 SEEN /hpf (0-5); Squamous Epithelial Cells - UA 0 SEEN /hpf (0-5); White Blood Cells 0 SEEN /hpf (0-5)
[2018-11-12 07:29] LABS: Bacteria RARE /hpf (None Seen)
--- NOTE | 2018-11-12 08:41 | ED.RN ---
0800 pt will be transferred to ICU, report called to Evonne ROJO.
--- NOTE | 2018-11-12 08:59 | EKG12_ITS ---
Test Reason : CP Blood Pressure : / mmHG Vent. Rate : 063 BPM Atrial Rate : 063 BPM P-R Int : 216 ms QRS Dur : 106 ms QT Int : 428 ms P-R-T Axes : 050 -29 063 degrees QTc Int : 437 ms Sinus rhythm with 1st degree A-V block Anteroseptal infarct , age undetermined Abnormal ECG When compared with ECG of 09-NOV-2018 15:05, MANUAL COMPARISON REQUIRED, DATA IS UNCONFIRMED Confirmed by LILIAN MURRAY, MONTRELL ([id number]), publishing editor HANNA MORENO ([id number]) on 11/14/2018 1:22:30 PM Referred By: ROSALINA Confirmed By:MONTRELL QUINTANA MD
--- NOTE | 2018-11-12 08:59 | CL.I_ITS ---
Patient Name: RADHA ZAMBRANO Study Date: 11/12/2018 Performing: Rudy Franz MD Ht: 79.13 inches 201 cm : 1940 Wt: 242.51 lbs 110 kg Age: 78 Gender: male BSA: 2.48 PROCEDURE(S) PERFORMED [id number]/LV [id number] W OR WO PTCA, SINGLE CORONARY ARTERY [id number], EACH ADD'L CORONARY ART, SAME MAJOR CLINICAL PROFILE AND CO-MORBIDITIES Indications: ACS > 24 hrs, New Onset Angina <= 2 months, Suspected CAD, LV Dysfunction Heart Failure: NYHA Class: 1, Newly Diagnosed: Yes, Heart Failure Type: Systolic Stress/Imaging Stress/Image Study Performed: No Angina Classification Anginal Classification w/in 2 Weeks: CCS III CAD Presentations: Unstable angina. Non-STEMI. Symptom onset Date/Time: 11/09/2018 Time Not Availa ble Comorbidities/Risk Factors: Hypertension Dyslipidemia CONCLUSIONS Segmented LV systolic dysfunction- Mild LVEF: by LV gram 50 % Normal Left Ventricular End Diastolic Pressure Single vessel CAD of the LAD Non obstructive coronary arteries Successful PTCA/DANIEL of proximal LAD with a 3.0 x 28 Promus Synergy, followed immediately downstream w ith a 3.0 x 24 Promus Synergy, being careful to cover entire mid LAD plaque without encroaching on ne wly noted myocardial bridging; 90%-->0%, no dissection. Successful PCI with PTCA to the ostium of DIAG#1 with a 2.0 x 12 Balloon; 95%-->10%, no dissection. RECOMMENDATIONS Referred for immediate PCI Management as per referring Reeling Machine Operator Highly recommend quitting all tobacco products Follow up with primary hydro excavation operator Risk factor modification ASA Rajanefinijimmy Rosa for at least 12 months Routine post interventional care Refer for Outpatient Cardiac Rehab Manual sheath removal per protocol Follow up with Dr. Franz Successful Mynx closure of RFA. DESCRIPTION OF PROCEDURE The patient arrived to the procedure lab. The risks and benefits of the procedure as well as a full d escription of our services here and lack of surgical backup were fully explained to the patient and/o r their significant other prior to the catheterization. The Timeout was completed, verifying the fahad ect patient and procedure. The patient's procedural site was prepped and draped in the usual fashion. Local anesthetic was given subcutaneously to right groin region with Lidocaine 2%. Using a modified Seldinger technique, arterial access was obtained via the right femoral artery, a 4Fr sheath was inse rted. Left Coronary Artery selective angiography was performed in multiple views using a 4 Fr. JL5 c atheter. Right Coronary Artery selective angiography was then performed in multiple views using a 4 F r. 3DRC catheter. Left Ventriculography was performed in GOODEN projection using a 4 Fr. Pigtail cathete r. LV to AO pullback pressures were then recordedThe images were reviewed and options discussed. A decision was then made to proceed with an Intervention, IVUS or other adjunct procedure. Arterial sheath was exchanged for a 6 Fr Sheath. ebu 3.75 Guide catheter was inserted and engaged into the LCA. Angiogram performed pre balloon dilatation. bmw Guide wire was advanced to the LAD. PT CA balloon inflated at 6 atms for 8 secs. PTCA balloon inflated at 6 atms for 28 secs. Angiogram perf ormed post balloon dilatation. synergy 3.00 x 28 Drug Eluting stent was advanced across the lesion in the LAD, proximal. Angiogram performed post stent deployment. synergy 3.00 x 24 Drug Eluting stent w as advanced across the lesion in the LAD, mid. bmw Guide wire was advanced to the Diagonal. emerge 2. 00 x 12 Balloon catheter was advanced across lesion in the diagonal, proximal. PTCA balloon inflated at 3 atms for 11 secs. PTCA balloon inflated at 6 atms for 19 secs. Angiogram performed post balloon dilatation. Contrast was injected through the sheath and the Right Iliac and Femoral artery were asse ssed for possible closure device. The arterial sheath was pulled and a Mynx closure device was deployed for hemostasis CORONARY ANGIOGRAPHY DOMINANCE: Right Dominant LEFT HEART ASSESSMENT Left Ventricular Ejection Fraction: by LV Gram 50 % Depressed Left Ventricular systolic function Normal Left Ventricular End Diastolic Pressure LVEDP: 11 mmHg Anterior Hypokinesis - Mild LEFT MAIN: Angiographically normal LEFT ANTERIOR DECENDING ARTERY: PROX LAD: 90 % Stenosis MID LAD: 75 % Stenosis CIRCUMFLEX ARTERY: Mild luminal irregularities less than 30% RIGHT CORONARY ARTERY: Mild luminal irregularities less than 30% RT PDA: Proximal - Mild luminal irregularities less than 30% INTERVENTION INFORMATION LESION SITE: LAD (Proximal) Lesion Complexity: High/C, lesion at bifurcation: Yes, thrombus present: No, lesion length: 52 mm, cu lprit lesion: Yes Pre Stenosis: 90 % Pre intervention ANKITA flow: 2 PROCEDURE: Drug Eluting Stent with pre dilatation. Post Stenosis: 0 % Post intervention ANKITA flow: 3 Lesion Devices: Jose Sci EMERGE MR 2.00x12 BALLOON Jose Sci Synergy MR DANIEL 3.00x28 Jose Sci Synergy MR DANIEL 3.00x24 LESION SITE: 1st Diagonal (Proximal) Lesion Complexity: High/C, lesion at bifurcation: Yes, thrombus present: No, lesion length: 8 mm, cul prit lesion: No Pre Stenosis: 95 % Pre intervention ANKITA flow: 1 PROCEDURE: Balloon Angioplasty Post Stenosis: 10 % Post intervention ANKITA flow: 3 Lesion Devices: Jose Sci EMERGE MR 2.00x12 BALLOON COMPLICATIONS No Complications PROCEDURE MEDICATIONS Oxygen: 2 L/min via nasal cannula Heparin 6000 unit(s) IV 11/12/2018 07:59:25 Nitro 200 mcg IC 11/12/2018 08:00:52 Nitro 200 mcg IC 11/12/2018 08:00:52 Nitro 200 mcg IC 11/12/2018 08:04:50 Nitro 200 mcg IC 11/12/2018 08:09:31 Nitro 200 mcg IC 11/12/2018 08:14:36 SUMMARY OF HEMODYNAMIC DATA Time AIR REST ECG 07:42:31 AO 99/51 (73) SA 07:50:52 LV 107/-6, 11 07:57:09 LV 106/-12, 9 07:57:16 LVp 107/-15, 9 07:57:25 AOp 105/55 (77) 07:57:30 Signed By Rudy Franz MD On 11/12/2018 08:59:06 Signed By Rudy Franz MD On 11/12/2018 08:58:37 Rudy Franz MD
[2018-11-12] MEDS: 0.9% Normal Saline 1,000 ML 150 ML IV (09:17)
--- NOTE | 2018-11-12 10:00 | EKG12_ITS ---
Test Reason : POST PCI Blood Pressure : / mmHG Vent. Rate : 054 BPM Atrial Rate : 054 BPM P-R Int : 232 ms QRS Dur : 114 ms QT Int : 478 ms P-R-T Axes : 049 -25 094 degrees QTc Int : 453 ms Sinus bradycardia with 1st degree A-V block Anteroseptal infarct , age undetermined Abnormal ECG When compared with ECG of 09-NOV-2018 16:55, MANUAL COMPARISON REQUIRED, DATA IS UNCONFIRMED Confirmed by LILIAN MURRAY, MONTRELL ([id number]), industrial editor ELIN CORONA ([id number]) on 11/19/2018 1:14:37 PM Referred By: LAZARO Confirmed By:MONTRELL QUINTANA MD
[2018-11-12 10:11] LABS: ACT Activated Clotting Time 191 sec (74-137)
[2018-11-12] MEDS: Pantoprazole Sodium 40 MG Tablet PO (11:46)
[2018-11-12] MEDS: Senna Tablet 2 TABLET PO ×2 (11:46→21:08)
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
--- NOTE | 2018-11-12 13:31 | CRPHASE1 ---
Patient Data/Charges Former Patient:: Phase II Blurb Writer:: Rudy Franz Phase II Referral:: [facility] Risk Factors/Lifestyle Hx Dyslipidemia: Yes Laboratory Values: Cardiac Rehab Phase I Labs Triglycerides 120 mg/dL (-199) 11/10/18 03:02 Cholesterol 180 mg/dL (200) 11/10/18 03:02 LDL Cholesterol 129 mg/dL (0-130) 11/10/18 03:02 HDL Cholesterol 27 mg/dL (40-) L 11/10/18 03:02 Phase I Education Given On:: [place], Nutrition, Antiplatelet medication, CHF, Smoking cessation, Diabetes - Type I, Diabetes - Type II Issues Affecting Care:: None Knowledge of Condition:: Yes Hospital Course Cardiac Cath Date:: 11/12/18 Medical/Surgical History Dyslipidemia:: Yes PTCA:: Yes
--- NOTE | 2018-11-12 13:34 | CRPHASE1_ITS ---
Patient Data/Charges Former Patient:: Phase II Feed Research Aide:: Rudy Franz Phase II Referral:: [facility] Risk Factors/Lifestyle Hx Dyslipidemia: Yes Laboratory Values: Cardiac Rehab Phase I Labs Triglycerides 120 mg/dL (-199) 11/10/18 03:02 Cholesterol 180 mg/dL (200) 11/10/18 03:02 LDL Cholesterol 129 mg/dL (0-130) 11/10/18 03:02 HDL Cholesterol 27 mg/dL (40-) L 11/10/18 03:02 Phase I Education Given On:: [place], Nutrition, Antiplatelet medication, CHF, Smoking cessation, Diabetes - Type I, Diabetes - Type II Issues Affecting Care:: None Knowledge of Condition:: Yes Hospital Course Cardiac Cath Date:: 11/12/18 Medical/Surgical History Dyslipidemia:: Yes PTCA:: Yes
--- NOTE | 2018-11-12 13:36 | CRPH1.INSTRU ---
General Education CAD and cardiac anatomy and function:: Patient communicates acknowledgment Explanation of diagnoses and procedures:: Patient communicates acknowledgment Sign/Symptoms of [place]:: Patient communicates acknowledgment Antiplatelet therapy: Patient communicates acknowledgment Proper use of NTG-SL: Not instructed Emergency procedures and activation of EMS: Patient communicates acknowledgment Compliance of all prescribed medications: Patient communicates acknowledgment Smoking Patient Nicotine/Smoking Risk Factors Are:: Non-smoker Nicotine/Smoking Response Code:: Patient communicates acknowledgment Dyslipidemia Dyslipidemia Response Code:: Patient communicates acknowledgment Overweight/Obesity Overweight/Obesity:: Patient communicates acknowledgment Hypertension Patient Hypertension Risk Factors Are:: No documented hx of HTN Hypertension:: Patient communicates acknowledgment Heart Disease Heart Disease Response Code:: Patient communicates acknowledgment Metabolic Syndrome Metabolic Syndrome Response Code:: Patient communicates acknowledgment Sedentary Sedentary Response Code:: Patient communicates acknowledgment Stress Stress Response Code:: Patient communicates acknowledgment
--- NOTE | 2018-11-12 13:40 | CRPH1.INST_ITS ---
General Education CAD and cardiac anatomy and function:: Patient communicates acknowledgment Explanation of diagnoses and procedures:: Patient communicates acknowledgment Sign/Symptoms of [place]:: Patient communicates acknowledgment Antiplatelet therapy: Patient communicates acknowledgment Proper use of NTG-SL: Not instructed Emergency procedures and activation of EMS: Patient communicates acknowledgment Compliance of all prescribed medications: Patient communicates acknowledgment Smoking Patient Nicotine/Smoking Risk Factors Are:: Non-smoker Nicotine/Smoking Response Code:: Patient communicates acknowledgment Dyslipidemia Dyslipidemia Response Code:: Patient communicates acknowledgment Overweight/Obesity Overweight/Obesity:: Patient communicates acknowledgment Hypertension Patient Hypertension Risk Factors Are:: No documented hx of HTN Hypertension:: Patient communicates acknowledgment Heart Disease Heart Disease Response Code:: Patient communicates acknowledgment Metabolic Syndrome Metabolic Syndrome Response Code:: Patient communicates acknowledgment Sedentary Sedentary Response Code:: Patient communicates acknowledgment Stress Stress Response Code:: Patient communicates acknowledgment
--- NOTE | 2018-11-12 14:44 | CHAPLAIN ---
Type of Pastoral Visit _x__ Initial Visit ___ Follow-up Visit ___ On-call Visit ___ General Patient Visit ___ Spiritual Assessment ___ Family Conference ___ Bereavement ___ Rapid Response ___ Code Blue ___ Other (describe below) Pastoral Care Referral From _x__ Patient ___ Family ___ Nurse ___ Physician ___ Dairy Scientist ___ Web Editor ___ Other (describe below) Sacrament/Intervention _x__ Active listening ___ Anointing ___ Hinduism ___ Bereavement ___ Communion _x__ Rona exploration ___ _x__ Life review _x__ Prayer ___ Reconciliation ___ Sacrament of Sick _x__ Supportive presence ___ Wedding ___ Other (describe below) Pastoral Comments patient is very talkative and shares about life story, rona/ministry experiences, recent health issues, family involvement; pt welcomes spiritual care and prayers; pt asked for a Bible
--- NOTE | 2018-11-12 14:54 | CASEMGMT ---
RN CM Note: Intro role of CM to patient in room. Pt with slow speech, however is alert and oriented, asking appropriate questions. -Pt was dc'd from [facility] on 11/05/18 to home with [place] data virtualization consultant/PT/OT. Call to [facility]- they will see pt on discharge. Order in chart. [facility] PH FX: Pt would like phone number for his sister and friend listed in chart in addition to his brothers. Sister: Kimberleytg Rossi Aleks MURRAY [facility] [phone] Friend: Denilson Chavez [phone] -DC PLAN: anticipate home on discharge. PT/OT evaluations pending. Discussed Brillinta medication with pt and savings card explained. Pt has MCR so first 30 days will be covered through savings card. Kavon LOPEZN RN ACM
[2018-11-12] MEDS: Atorvastatin Calcium 40 MG Tablet PO (21:07)
[2018-11-13] VITALS (11 sets, daily range): BP systolic 100–136; BP diastolic 50–69; PULSE 60–73; RESP 19–23; TEMP 36.3–36.7; O2SAT 95–97
[2018-11-13 05:34] LABS: Absolute Neutrophil Count 4.5 X10^3/uL (2.0-7.7); Basophil# 0.01 X10^3/uL; Basophil% 0.1 % (0-1); Eosinophil# 0.11 X10^3/uL; Eosinophils% 1.6 % (0-5); Hematocrit 36.1 % (40-54); Hemoglobin 11.8 g/dl (13.0-16.5); Lymphocyte % 23.1 % (19-41); Mean Corp Hgb Conc 32.7 g/gl (32-36); Mean Corpuscular Hgb 27.3 pg (27.0-32.0); Mean Corpuscular Volume 83.4 fL (80-94); Mean Platelet Vol. 9.3 fl (6.2-12.0); Monocyte% 10.1 % (0-10); Neutrophil # 4.51 X10^3/uL (2.7-7.7); Platelet Count 229 K/mm3 (150-450); RBC Distribution Width CV 14.4 % (11.6-14.6); RBC Distribution Width SD 44.1 fl (35.1-43.9); Red Blood Count 4.33 M/mm3 (4.6-6.2); White Blood Count 6.9 K/mm3 (4.4-11.0)
[2018-11-13 05:41] LABS: POSITIVE COUNT NO; POSITIVE DIFFERENTIAL NO; POSITIVE MORPHOLOGY NO
[2018-11-13 05:49] LABS: Anion Gap 8 (5-15); BUN 13 mg/dL (7-18); BUN/Creat Ratio 15.8 RATIO (10-20); Calcium,Total 8.4 mg/dL (8.5-10.1); Chloride 107 mmol/L (98-107); Creatinine, Serum 0.82 mg/dL (0.70-1.30); EST Glomerular Filtration Rate 97 mL/min (>60); Est Glom Filt Rate - Afr Amer 117 mL/min (>60); Estimated Creatinine Clearance 101.57 ml/min; Glucose 107 mg/dL (74-106); Potassium 3.9 mmol/L (3.5-5.1); Sodium Level 141 mmol/L (136-145)
[2018-11-13] MEDS: Senna Tablet 2 TABLET PO (07:59)
[2018-11-13] MEDS: Lisinopril 5 MG Tablet PO (08:00)
[2018-11-13] MEDS: TICAGRELOR 90 MG TABLET PO (08:00)
[2018-11-13] MEDS: Carvedilol 6.25 MG Tablet PO (08:00)
[2018-11-13] MEDS: Aspirin E.C. 81 MG Tablet PO (08:00)
[2018-11-13] MEDS: Pantoprazole Sodium 40 MG Tablet PO (08:01)
--- NOTE | 2018-11-13 09:00 | PN.CARD_ITS ---
Subjectve: Patient doing very well this morning. No 24-hour events. Telemetry negative. EKG shows normal sinus rhythm with Q waves in V1 through V3, with associated anterior T wave inversion, no changes over baseline admission EKG. Patient feels much better after angioplasty and stenting x2 yesterday. Right groin is clean/dry/intact. Hemoglobin and creatinine are within nominal limits. Objective: Vital Signs Temp Pulse Resp BP Pulse Ox 98.0 F 67 22 H 111/56 L 96 11/13/18 07:51 11/13/18 07:51 11/13/18 07:51 11/13/18 07:51 11/13/18 07:51 Oxygen Flow Rate (L/min) 2 Oxygen Delivery Method Room Air Weight: 243 lb 9.773 oz Body Mass Index (BMI) 27.3 Intake and Output for Last 24 Hours 11/11/18 11/12/18 11/13/18 23:59 23:59 23:59 Intake Total 490 / 490 1922 / 1922 360 / 360 Output Total 1625 / 1625 Balance 490 / 490 297 / 297 360 / 360 General: Awake, Alert, Oriented x 3 HEENT: PERRL, EOMI, Sclera Non Icteric Neck: Supple, Good ROM, No Lymph Node Enlargement Lungs: Clear to auscultation Cardiovascular: Regular Rhythm, Normal S1, Normal S2, No Murmurs, No Rubs, No Gallops Vascular: No Carotid Bruits, Normal Femoral Pulses, Normal Radial Pulses, Normal Dorsalis Pedal Pulse, Normal Posterior Tibial Pulses Abdomen: Bowel Sounds Present, Soft, Non Tender, No HSM, No Organomegaly Extremities: No Cyanosis, No Clubbing, No edema Neurological: No Focal Motor or Sensory Deficit 11/13/18 05:20: WBC 6.9, RBC 4.33 L, Hgb 11.8 L, Hct 36.1 L, MCV 83.4, MCH 27.3, MCHC 32.7, RDW 14.4, RDW Differential 44.1 H, Plt Count 229, MPV 9.3, Immature Gran % (Auto) 0.100, Neut % (Auto) 65.0, Lymph % (Auto) 23.1, [place] % (Auto) 10.1 H, Eos % (Auto) 1.6, Baso % (Auto) 0.1, Absolute Neuts (auto) 4.5, Total Counted Not Reportable 11/13/18 05:20: Sodium 141, Potassium 3.9, Chloride 107, Carbon Dioxide 26.0, Anion Gap 8, BUN 13, Creatinine 0.82, Est GFR (MDRD) Af Amer 117, Est GFR (MDRD) Non-Af 97, BUN/Creatinine Ratio 15.8, Glucose 107 H, Calcium 8.4 L Rhythm: EKG: ECHO: Stress Test: Cardiac Cath: PCI: CT Surgery: Holter monitor: EPS: PPM: CXR: Chest CT Scan: Medical Necessity - Tobacco Use Smoking Status: Former smoker Assessment/Plan 1. Unstable angina: The patient has new onset chest pain occurring about 3 days prior to admission and recurring on the day of admission with walking to his car and driving to his PCPs office. Patient has new dynamic EKG changes with T wave inversion in the anterior leads as well as evidence of Q waves possibly suggesting recent myocardial infarction around the time of his recent gallbladder surgery. Patient underwent laparoscopic cholecystectomy about 3 weeks ago, and his wound sites are well-healed. Patient underwent 2D echo Doppler yesterday, which showed an EF around 50% with mid anterior and apical hypokinesis consistent with his abnormal EKG. His RVSP was 22 mmHg, and he appears to have 1+ aortic insufficiency. Patient is scheduled to undergo left heart catheterization tomorrow morning. If the patient has recurrent chest pain symptoms I would have a low threshold to bring the patient to the catheterization lab on a more urgent basis. Patient underwent diagnostic coronary angiogram yesterday which demonstrated a critical lesion in his proximal and mid LAD. He underwent angioplasty and drug- eluting stenting x2 to the proximal mid LAD, with associated balloon angioplasty only of the ostium of the diagonal branch. Patient feels much better today. His right groin is clean/dry/intact without evidence of thrills, bruits or hematoma. Recommend the patient be discharged home today. We will allow him a week or 2 to recover from his catheterization followed by enrollment in cardiac rehab. Hopefully his LV function will improve with the assistance of angioplasty and stenting, and we will repeat his echocardiogram in 3 months time. In the meantime he will continue his aspirin, Brilinta, beta-adrienne, and lisinopril. 2. Hyperlipidemia: LDL is 129, HDL is 27. Continue Lipitor therapy. Repeat lipids in 6 weeks time. 3. Recent gallbladder surgery: The patient's wound sites appear to be well- healed. He has nontender in his abdominal cavity. I do not believe the patient's symptoms are gallbladder related at this time. 4. Thank you very much for the opportunity to participate in the cardiac care of your patient. Patient may be discharged home and follow-up with Dr. Franz going forward. Code Visit Inpatient E&M: 93327 [facility] L2
--- NOTE | 2018-11-13 10:47 | PCM.DC ---
- Discharge Diagnoses Current Active Problems: Current Active and Chronic Problems (Last Updated 11/12/18 @ 09:08 by Elizabeth Vergara) Atherosclerotic heart disease of [place] coronary artery without angina pectoris (Chronic) Successful PTCA/DANIEL of proximal LAD with a 3.0 x 28 Promus Synergy, followed immediately downstream with a 3.0 x 24 Promus Synergy, being careful to cover entire mid LAD plaque without encroaching on newly noted myocardial bridging; 90%-->0%, no dissection. Successful PCI with PTCA to the ostium of DIAG#1 with a 2.0 x 12 Balloon; 95%-->10%, no dissection. Stented coronary artery (Chronic 11/12/18) Successful PTCA/DANIEL of proximal LAD with a 3.0 x 28 Promus Synergy, followed immediately downstream with a 3.0 x 24 Promus Synergy, being careful to cover entire mid LAD plaque without encroaching on newly noted myocardial bridging; 90%-->0%, no dissection. Successful PCI with PTCA to the ostium of DIAG#1 with a 2.0 x 12 Balloon; 95%-->10%, no dissection. Non-STEMI (non-ST elevated myocardial infarction) (Acute 11/12/18) Chest pain (Acute) You will use the following diet at home:: No restrictions Your food should be the consistency of: Regular Your liquids should be the consistency of: Regular/Thin Discharge Activity: Return to Normal Activity Weight Bearing Status: Full weight bearing Allergies/Adverse Reactions: Allergies raspberry Allergy (Verified 11/09/18 13:36) Other strawberry Allergy (Verified 11/09/18 13:36) Other lemon-pechanga flavor Allergy (Uncoded 11/09/18 13:36) Other mushroom Allergy (Uncoded 11/09/18 13:36) Other Medications to take at Discharge Sennosides 17.2 mg PO BID 11/09/18 Aspirin E.C. [Ecotrin] 81 mg PO DAILY@0800 tablet 11/13/18 Atorvastatin Calcium [Lipitor] 40 mg PO QHS #30 tablet 11/13/18 Carvedilol [Coreg (Beta Elkin)] 6.25 mg PO BID #60 tablet 11/13/18 Lisinopril [Zestril] 5 mg PO DAILY #30 tablet 11/13/18 Ticagrelor [Brilinta] 90 mg PO BID #60 tablet 11/13/18 The following prescriptions were given: Atorvastatin Calcium [Lipitor] 40 mg PO QHS #30 tablet Lisinopril [Zestril] 5 mg PO DAILY #30 tablet Carvedilol [Coreg (Beta Elkin)] 6.25 mg PO BID #60 tablet Ticagrelor [Brilinta] 90 mg PO BID #60 tablet Orders to be completed after discharge: Phase II, Outpatient Cardiac Rehab Location: None Selected Primary Care Physician: Lam Huffman MD [Primary Care Provider] - Please follow up with your Primary Care Physician in: in 2-3 weeks Test Results: Test results from this visit will be discussed in further detail at your follow-up appointment, if applicable. Please Follow Up With: Rudy Franz MD When: Monday
--- NOTE | 2018-11-13 10:50 | DCINST_ITS ---
- Discharge Diagnoses Current Active Problems: Current Active and Chronic Problems (Last Updated 11/12/18 @ 09:08 by Elizabeth Vergara) Atherosclerotic heart disease of [place] coronary artery without angina pectoris (Chronic) Successful PTCA/DANIEL of proximal LAD with a 3.0 x 28 Promus Synergy, followed immediately downstream with a 3.0 x 24 Promus Synergy, being careful to cover entire mid LAD plaque without encroaching on newly noted myocardial bridging; 90%-->0%, no dissection. Successful PCI with PTCA to the ostium of DIAG#1 with a 2.0 x 12 Balloon; 95%-->10%, no dissection. Stented coronary artery (Chronic 11/12/18) Successful PTCA/DANIEL of proximal LAD with a 3.0 x 28 Promus Synergy, followed immediately downstream with a 3.0 x 24 Promus Synergy, being careful to cover entire mid LAD plaque without encroaching on newly noted myocardial bridging; 90%-->0%, no dissection. Successful PCI with PTCA to the ostium of DIAG#1 with a 2.0 x 12 Balloon; 95%-->10%, no dissection. Non-STEMI (non-ST elevated myocardial infarction) (Acute 11/12/18) Chest pain (Acute) You will use the following diet at home:: No restrictions Your food should be the consistency of: Regular Your liquids should be the consistency of: Regular/Thin Discharge Activity: Return to Normal Activity Weight Bearing Status: Full weight bearing Allergies/Adverse Reactions: Allergies raspberry Allergy (Verified 11/09/18 13:36) Other strawberry Allergy (Verified 11/09/18 13:36) Other lemon-kaw flavor Allergy (Uncoded 11/09/18 13:36) Other mushroom Allergy (Uncoded 11/09/18 13:36) Other Medications to take at Discharge Sennosides 17.2 mg PO BID 11/09/18 Aspirin E.C. [Ecotrin] 81 mg PO DAILY@0800 tablet 11/13/18 Atorvastatin Calcium [Lipitor] 40 mg PO QHS #30 tablet 11/13/18 Carvedilol [Coreg (Beta Elkin)] 6.25 mg PO BID #60 tablet 11/13/18 Lisinopril [Zestril] 5 mg PO DAILY #30 tablet 11/13/18 Ticagrelor [Brilinta] 90 mg PO BID #60 tablet 11/13/18 The following prescriptions were given: Atorvastatin Calcium [Lipitor] 40 mg PO QHS #30 tablet Lisinopril [Zestril] 5 mg PO DAILY #30 tablet Carvedilol [Coreg (Beta Elkin)] 6.25 mg PO BID #60 tablet Ticagrelor [Brilinta] 90 mg PO BID #60 tablet Orders to be completed after discharge: Phase II, Outpatient Cardiac Rehab Location: None Selected Primary Care Physician: Lam Huffman MD [Primary Care Provider] - Please follow up with your Primary Care Physician in: in 2-3 weeks Test Results: Test results from this visit will be discussed in further detail at your follow- up appointment, if applicable. Please Follow Up With: Rudy Franz MD When: Monday
--- NOTE | 2018-11-14 13:49 | CASEMGMT ---
RN CM NOTE: Call placed to [facility]. They confirm they are aware pt was discharged yesterday 11/13/18. Nicole APARICIO RN CM
--- NOTE | 2018-11-14 16:09 | CASEMGMT ---
Addendum entered by Luke Babcock 11/14/18 16:26: Call placed to [facility] and spoke with Susanna. She was made aware pt is interested in having an aide come to his home to assist w/errands, housekeeping, etc. She was also made aware pt was made aware insurance would only cover for an aide to assist him with bathing but pt states he does not need help with bathing. Asked Susanna if they would be able to provide pt with information/resources for a private-duty aide when they see pt tomorrow. She states Juliette will be the RN seeing pt tomorrow and she will e-mail re: pt wanting aide services. She was also made aware pt stated he thought someone from [facility] would be calling him this evening re: time they would be arriving tomorrow. She stated she will leave [facility] with Juliette about that as well. Original Note: ALIA DRAPER Discharge Follow-Up Phone Call. Lace: 9 Strata: 3 Discharge Date: 11/13/18 Adm Dx: NSTEMI Call to pt to inquire about how he has been doing since being discharged from the hospital. Pt states he has been doing okay. Pt states he was able to get all of his prescriptions and has an appt with Dr Huffman next week. Pt states he was informed by Dr Huffman's office that someone from [facility] would be contacting him this evening to let him know what time they would be arriving @ his home tomorrow. Pt states he is interested in having an aide come to his home to assist with things such as errands/going to the store, getting his mail, and housecleaning. Informed pt that insurance will cover for an aide to assist with bathing but they will not cover for an aide to assist with those other types of errands/duties. Pt stated he does not need anyone to assist him with bathing. Pt made aware that cost for an aide to do provide those services would be an [id number] expense. Informed pt this ALIA DRAPER would contact [facility] to let them know is is requesting information/resources for a private-duty aide and that he can discuss this with the nurse from [facility]. Pt voices appreciation. Pt denies having any other questions, concerns, needs at this time. ALIA DRAPER thanked pt for choosing [facility]. Nicole LOPEZN RN CM
--- NOTE | 2018-11-14 17:48 | PCM.DC.SUM ---
Discharge Date and Diagnosis Date of Admission: 11/09/18 Date of Discharge: 11/13/18 - Primary Discharge Diagnosis #1 non-ST elevation [place] #2 obstructive coronary artery disease with PCI and insertion of DANIEL stent to proximal LAD and mid LAD, and balloon dilatation of ostium of diagonal branch #3 hyperlipidemia #4 osteoarthritis - Secondary Discharge Diagnosis Chronic Problems (Last Updated 11/12/18 @ 09:08 by Elizabeth Vergara) Atherosclerotic heart disease of [place] coronary artery without angina pectoris (Chronic) Successful PTCA/DANIEL of proximal LAD with a 3.0 x 28 Promus Synergy, followed immediately downstream with a 3.0 x 24 Promus Synergy, being careful to cover entire mid LAD plaque without encroaching on newly noted myocardial bridging; 90%-->0%, no dissection. Successful PCI with PTCA to the ostium of DIAG#1 with a 2.0 x 12 Balloon; 95%-->10%, no dissection. Stented coronary artery (Chronic 11/12/18) Successful PTCA/DANIEL of proximal LAD with a 3.0 x 28 Promus Synergy, followed immediately downstream with a 3.0 x 24 Promus Synergy, being careful to cover entire mid LAD plaque without encroaching on newly noted myocardial bridging; 90%-->0%, no dissection. Successful PCI with PTCA to the ostium of DIAG#1 with a 2.0 x 12 Balloon; 95%-->10%, no dissection. Physical debility (Chronic) Blind right eye (Chronic) Hyperlipidemia (Chronic) Constipation (Chronic) Hospital Course and Treatment Operations: None Procedures: 2-D Echocardiogram, Cardiac catheterization - With placement of drug-eluting stent in the proximal LAD and mid LAD and balloon dilation of ostium of diagonal artery Summary of Care Provided: The patient is a 78 year old M was seen in the emergency room at [facility] with a chief complaint of chest pain. Workup in the emergency room included an EKG which showed a normal sinus rhythm with first-degree AV block and T wave inversion in aVL and V2. Troponin was elevated at 0.33. Case was discussed with cardiology, patient was given Brilinta and Lovenox and was admitted for a non-STEMI. Repeat cardiac enzymes elevated with a high of 1.29. Patient underwent a cardiac catheterization which showed single-vessel coronary disease in the proximal and mid LAD, a drug-eluting stent was placed and patient had balloon dilatation of the ostium of diagonal artery. Patient had no major complications during his hospital stay. On 11/13/18, patient was seen and examined and felt to be in stable condition for discharge home: On examination he appeared in good health and spirits. Vital signs as documented. Skin warm and dry and without overt rashes. Neck without JVD. Lungs clear. Heart exam notable for regular rhythm, normal sounds and absence of murmurs, rubs or gallops. Abdomen unremarkable and without evidence of organomegaly, masses, or abdominal aortic enlargement. Extremities nonedematous. Neuro: Cranial nerves II through XII are grossly intact, no focal motor deficits were noted, sensation to light touch and pinprick intact. Psych: Patient is alert and oriented x3, he does not appear anxious or depressed - Physical Exam Vital Signs Temp Pulse Resp BP Pulse Ox 98.0 F 73 22 H 136/60 H 96 11/13/18 07:51 11/13/18 09:00 11/13/18 07:51 11/13/18 09:00 11/13/18 07:51 Oxygen Flow Rate (L/min) 2 Oxygen Delivery Method Room Air Weight: 110.5 kg Body Mass Index (BMI) 27.3 Intake and Output for Last 24 Hours 11/12/18 11/13/18 11/14/18 23:59 23:59 23:59 Intake Total 1922 / 1922 360 / 360 Output Total 1625 / 1625 Balance 297 / 297 360 / 360 Discharge Activity: Return to Normal Activity Weight Bearing Status: Full weight bearing Home Medications: Medications to take at Discharge Sennosides 17.2 mg PO BID 11/09/18 Aspirin E.C. [Ecotrin] 81 mg PO DAILY@0800 tablet 11/13/18 Atorvastatin Calcium [Lipitor] 40 mg PO QHS #30 tablet 11/13/18 Carvedilol [Coreg (Beta Elkin)] 6.25 mg PO BID #60 tablet 11/13/18 Lisinopril [Zestril] 5 mg PO DAILY #30 tablet 11/13/18 Ticagrelor [Brilinta] 90 mg PO BID #60 tablet 11/13/18 Following Prescrptions Were Given to Patient: Atorvastatin Calcium [Lipitor] 40 mg PO QHS #30 tablet Lisinopril [Zestril] 5 mg PO DAILY #30 tablet Carvedilol [Coreg (Beta Elkin)] 6.25 mg PO BID #60 tablet Ticagrelor [Brilinta] 90 mg PO BID #60 tablet Other Amb Orders: Phase II, Outpatient Cardiac Rehab Location: None Selected Primary Care Physician: Lam Huffman MD [Primary Care Provider] - Please follow up with your Primary Care Physician in: in 2-3 weeks Please Follow Up With: Rudy Franz MD When: Monday Disposition: Home Minutes spent on discharge:: 32 Patient Condition:: Stable Medical Necessity - Tobacco Use Smoking Status: Former smoker Meaningful Use Info Meaningful Use Diagnoses (Choose all that apply): AMI - AMI Aspirin given w/in 24hrs of arrival?: Yes ASA at discharge?: Yes Statins at discharge?: Yes Hiro/ARB at discharge?: Yes Beta Elkin at discharge?: Yes Done w/ Acute [place] measure.: Yes Code Visit Inpatient E&M: 10435 Disch Hosp
--- NOTE | 2018-11-14 17:52 | DS.PCM_ITS ---
Discharge Date and Diagnosis Date of Admission: 11/09/18 Date of Discharge: 11/13/18 - Primary Discharge Diagnosis #1 non-ST elevation [place] #2 obstructive coronary artery disease with PCI and insertion of DANIEL stent to proximal LAD and mid LAD, and balloon dilatation of ostium of diagonal branch #3 hyperlipidemia #4 osteoarthritis - Secondary Discharge Diagnosis Chronic Problems (Last Updated 11/12/18 @ 09:08 by Elizabeth Vergara) Atherosclerotic heart disease of [place] coronary artery without angina pectoris (Chronic) Successful PTCA/DANIEL of proximal LAD with a 3.0 x 28 Promus Synergy, followed immediately downstream with a 3.0 x 24 Promus Synergy, being careful to cover entire mid LAD plaque without encroaching on newly noted myocardial bridging; 90%-->0%, no dissection. Successful PCI with PTCA to the ostium of DIAG#1 with a 2.0 x 12 Balloon; 95%-->10%, no dissection. Stented coronary artery (Chronic 11/12/18) Successful PTCA/DANIEL of proximal LAD with a 3.0 x 28 Promus Synergy, followed immediately downstream with a 3.0 x 24 Promus Synergy, being careful to cover entire mid LAD plaque without encroaching on newly noted myocardial bridging; 90%-->0%, no dissection. Successful PCI with PTCA to the ostium of DIAG#1 with a 2.0 x 12 Balloon; 9 5%-->10%, no dissection. Physical debility (Chronic) Blind right eye (Chronic) Hyperlipidemia (Chronic) Constipation (Chronic) Hospital Course and Treatment Operations: None Procedures: 2-D Echocardiogram, Cardiac catheterization - With placement of drug-eluting stent in the proximal LAD and mid LAD and balloon dilation of ostium of diagonal artery Summary of Care Provided: The patient is a 78 year old M was seen in the emergency room at [facility] with a chief complaint of chest pain. Workup in the emergency room included an EKG which showed a normal sinus rhythm with first- degree AV block and T wave inversion in aVL and V2. Troponin was elevated at 0.33. Case was discussed with cardiology, patient was given Brilinta and Lovenox and was admitted for a non-STEMI. Repeat cardiac enzymes elevated with a high of 1.29. Patient underwent a cardiac catheterization which showed single-vessel coronary disease in the proximal and mid LAD, a drug-eluting stent was placed and patient had balloon dilatation of the ostium of diagonal artery. Patient had no major complications during his hospital stay. On 11/13/18, patient was seen and examined and felt to be in stable condition for discharge home: On examination he appeared in good health and spirits. Vital signs as documented. Skin warm and dry and without overt rashes. Neck without JVD. Lungs clear. Heart exam notable for regular rhythm, normal sounds and absence of murmurs, rubs or gallops. Abdomen unremarkable and without evidence of organomegaly, masses, or abdominal aortic enlargement. Extremities nonedematous. Neuro: Cranial nerves II through XII are grossly intact, no focal motor deficits were noted, sensation to light touch and pinprick intact. Psych: Patient is alert and oriented x3, he does not appear anxious or depressed - Physical Exam Vital Signs Temp Pulse Resp BP Pulse Ox 98.0 F 73 22 H 136/60 H 96 11/13/18 07:51 11/13/18 09:00 11/13/18 07:51 11/13/18 09:00 11/13/18 07:51 Oxygen Flow Rate (L/min) 2 Oxygen Delivery Method Room Air Weight: 110.5 kg Body Mass Index (BMI) 27.3 Intake and Output for Last 24 Hours 11/12/18 11/13/18 11/14/18 23:59 23:59 23:59 Intake Total 1922 / 1922 360 / 360 Output Total 1625 / 1625 Balance 297 / 297 360 / 360 Discharge Activity: Return to Normal Activity Weight Bearing Status: Full weight bearing Home Medications: Medications to take at Discharge Sennosides 17.2 mg PO BID 11/09/18 Aspirin E.C. [Ecotrin] 81 mg PO DAILY@0800 tablet 11/13/18 Atorvastatin Calcium [Lipitor] 40 mg PO QHS #30 tablet 11/13/18 Carvedilol [Coreg (Beta Elkin)] 6.25 mg PO BID #60 tablet 11/13/18 Lisinopril [Zestril] 5 mg PO DAILY #30 tablet 11/13/18 Ticagrelor [Brilinta] 90 mg PO BID #60 tablet 11/13/18 Following Prescrptions Were Given to Patient: Atorvastatin Calcium [Lipitor] 40 mg PO QHS #30 tablet Lisinopril [Zestril] 5 mg PO DAILY #30 tablet Carvedilol [Coreg (Beta Elkin)] 6.25 mg PO BID #60 tablet Ticagrelor [Brilinta] 90 mg PO BID #60 tablet Other Amb Orders: Phase II, Outpatient Cardiac Rehab Location: None Selected Primary Care Physician: Lam Huffman MD [Primary Care Provider] - Please follow up with your Primary Care Physician in: in 2-3 weeks Please Follow Up With: Rudy Franz MD When: Monday Disposition: Home Minutes spent on discharge:: 32 Patient Condition:: Stable Medical Necessity - Tobacco Use Smoking Status: Former smoker Meaningful Use Info Meaningful Use Diagnoses (Choose all that apply): AMI - AMI Aspirin given w/in 24hrs of arrival?: Yes ASA at discharge?: Yes Statins at discharge?: Yes Hiro/ARB at discharge?: Yes Beta Elkin at discharge?: Yes Done w/ Acute [place] measure.: Yes Code Visit Inpatient E&M: 43709 Disch Hosp
== END 2018-11-13 12:05 | disposition home or self-care (01) | DRG 247 ==
LOC: ED 16:00 → PCU 16:01 → ICU 11-12 08:53
PROVIDERS: Family Medicine; Internal Medicine Cardiovascular Disease; Student in an Organized Health Care Education/Training Program; Admitting Provider Internal Medicine; Emergency Provider Emergency Medicine; Family Provider Internal Medicine; PCP Internal Medicine; Visit Provider Internal Medicine
DX: I21.4 Non-ST elevation (NSTEMI) myocardial infarction (principal); E44.1 Mild protein-calorie malnutrition; I25.10 Atherosclerotic heart disease of native coronary artery without angina pectoris; Z90.49 Acquired absence of other specified parts of digestive tract; E78.5 Hyperlipidemia, unspecified; M19.90 Unspecified osteoarthritis, unspecified site; K59.09 Other constipation; Z87.891 Personal history of nicotine dependence; Z68.27 Body mass index [BMI] 27.0-27.9, adult
CPT/HCPCS: 36415; 71045; 80048; 80061; 80076; 81001; 83690; 83880; 84443; 84484; 85025; 85027; 85347; 85610; 85730; 92921; 92928; 93005; 93306; 93458; 97116; 97161; 97166; 97530; 97535; 99285; C1760; J7030; A4216; C1725; C1769; C1874; C1887; C1894; C8929; C9600; Q9967

== ENCOUNTER → 2019-04-03 12:35 | Outpatient (CLI) | payer MEDICARE, SELFPAY ==
[2018-11-30 12:57] VITALS: BMI 27.9
--- NOTE | 2019-04-03 12:37 | ECHOD_ITS ---
Reason For Study: S/P SC Procedure This was a 2D Doppler, Color Flow transthoracic echocardiogram. Exam performed in department. Left Ventricle Normal size and thickness. The estimated ejection fraction is 65-70 %. Normal diastology for age. No regional wall motion abnormalities noted. Right Ventricle Normal size and thickness. Normal systolic function. Atria The left atrium is mildly enlarged. Normal right atrium. Normal atrial septum. Mitral Valve The mitral valve is structurally normal. No prolapse or stenosis seen. Tricuspid Valve Normal tricuspid valve. Trivial tricuspid valve insufficiency. Right ventricular systolic pressure estimated to be 32 mmHg. Aortic Valve Trisinus/trileaflet aortic valve. Mild focal aortic valve thickening. Mild (1+) aortic valve insufficiency. Pulmonic Valve Normal pulmonic valve. Trivial pulmonic valve insufficiency. Great Vessels Normal aortic root. Normal arch. Normal inferior vena cava. Inferior vena cava collapse with sniff. Pericardium/Pleural No pericardial effusion. MMode/2D Measurements & Calculations LVIDd: 5.4 cm IVSd: 1.2 cm LVOT diam: 2.3 cm LVIDs: 3.5 cm LVPWd: 1.2 cm LVOT area: 4.0 cm2 RVDd: 3.5 cm FS: 35.7 % Ao root diam: 4.0 cm LAV(MOD-bp): 95.7 ml LA A4 area: 26.0 cm2 LAV(MOD-bp) Indexed: 38.3 ml/m2 LAV(MOD-sp2): 72.1 ml LAV(MOD-sp4): 102.6 ml LA dimension(2D): 4.3 cm Time Measurements MV dec time: 0.18 sec Doppler Measurements & Calculations MV E max ilia: 76.5 cm/sec Lat Peak E' Ilia: 10.9 cm/sec Med Peak E' Ilia: 7.5 cm/sec MV A max ilia: 55.3 cm/sec E/E' lat: 7.0 E/E' med: 10.2 MV E/A: 1.4 Ao V2 max: 123.5 cm/sec AI max iila: 416.4 cm/sec LV V1 max: 116.3 cm/sec Ao max P.1 mmHg AI max P.4 mmHg LV V1 max P.4 mmHg Ao V2 mean: 86.3 cm/sec LV V1 mean P.7 mmHg Ao mean P.2 mmHg AI dec slope: 139.6 cm/sec2 LV V1 mean: 77.2 cm/sec Ao V2 VTI: 29.3 cm AI P1/2t: 873.6 msec LV V1 VTI: 26.3 cm MANJIT(I,D): 3.6 cm2 MANJIT(V,D): 3.8 cm2 SV(LVOT): 105.1 ml PA V2 max: 86.2 cm/sec TR max ilia: 235.2 cm/sec TR max P.1 mmHg Interpretation Summary The estimated ejection fraction is 65-70 %. Normal diastology for age. The left atrium is mildly enlarged. Trivial tricuspid valve insufficiency. Right ventricular systolic pressure estimated to be 32 mmHg. Mild (1+) aortic valve insufficiency. Compared to echo report dated 11/10/2018, LV function has gone from 50% to 65-70%. Ordering Physician: Rudy Franz Referring Physician: Lam Huffman Performed By: Faye Mclean RDCS, RVT
== END ==
LOC: CVS 12:35
PROVIDERS: Family Provider Internal Medicine; PCP Internal Medicine; Referring Provider Internal Medicine Cardiovascular Disease; Visit Provider Internal Medicine Cardiovascular Disease
DX: I25.2 Old myocardial infarction (principal)
CPT/HCPCS: 93306

== ENCOUNTER 2020-02-23 13:55 | Emergency (ER) | payer MEDICARE, SELFPAY ==
[2020-02-21 13:01] VITALS: BMI 29.5
[2020-02-23 13:57] VITALS: BP 147/72; PULSE 65; RESP 17; TEMP 36.6; O2SAT 98; BMI 28.1
--- NOTE | 2020-02-23 14:26 | ED.VIS.GEN ---
History of Present Illness Informant: Patient Onset: Yesterday Context: Gradual Onset Timing: Continuous Quality: weakness Location: generalized Current Severity: Moderate Maximum Severity: Moderate Worsened by: activity Relieved by: rest Associated Symptoms: blood in underwear Narrative: 80-year-old male presents to the emergency department with generalized weakness. Patient states that he woke up this morning feeling fatigued. He also noticed bright red blood in his underwear. This prompted him to come to the emergency department. He is on aspirin and Plavix. He is not on anticoagulation. He denies any chest pain or shortness of breath. He does not feel lightheaded or dizzy. He denies any nausea or vomiting. He is slightly constipated. He has not had a bowel movement in 3 days. He denies any other symptoms of bleeding. He has leg swelling which is consistent with his chronic leg swelling and he is not having any leg pain. Denies hematuria. Attempted to have a bowel movement yesterday was unsuccessful and he states he did not see blood in the toilet bowl or on the toilet paper. Prior similar symptoms: No Recent Illness/Hospitalization: No <Fadi Neves - Last Filed: 02/23/20 14:55> <Saurabh Matute - Last Filed: 02/23/20 14:57> Chief Complaint: Weakness Past Medical History Prior records reviewed: Yes Past Medical History: - - Hypertension, hyperlipidemia, peripheral vascular disease Surgical History: - - Surgery on right eye hemorrhoidectomy Smoking Status: Former smoker Alcohol: None Drugs: None - Family History Maternal Family History: Reports: Heart Disease - Heart disease mother <Fadi Neves - Last Filed: 02/23/20 14:55> <Saurabh Matute - Last Filed: 02/23/20 14:57> - Allergies and Home Meds Allergies/Adverse Reactions: Allergies raspberry Allergy (Verified 02/23/20 13:57) Other strawberry Allergy (Verified 02/23/20 13:57) Other lemon-[place] flavor Allergy (Uncoded 02/23/20 13:57) Other mushroom Allergy (Uncoded 02/23/20 13:57) Other Primary Care Physician: Lam Huffman MD [Primary Care Provider] - Review of Systems All systems negative except as indicated General: Denies: Chills, Fever, Sweats Eyes: Denies: Visual changes - bilaterally, Diplopia ENT: Denies: Rhinorrhea, Sore throat Cardiovascular: Denies: Chest pain, Palpitations Respiratory: Denies: Dyspnea, Cough, Dyspnea on exertion Gastrointestinal: Denies: Abdominal pain, Nausea, Vomiting, Diarrhea, Melena, Hematochezia Genitourinary: Denies: Dysuria, Hematuria, Frequency Musculoskeletal: Denies: Back pain, Swelling, Extremity Pain Skin: Denies: Rash, Wounds Neurological: Denies: Headache, Weakness, Numbness <Fadi Neves - Last Filed: 02/23/20 14:55> Physical Exam Vital Signs/Narrative: Vital Signs Temp Pulse Resp BP Pulse Ox 02/23/20 13:57 97.8 F 65 17 147/72 H 98 Inital Vital Signs reviewed: Yes General: Well nourished, Well developed, No Acute Distress Head: Normocephalic, Atraumatic Eyes: Perrl, EOMI ENT: Moist mucous membranes, No rhinorrhea Neck: Supple, Nontender Cardiovascular: Regular rate, Regular rhythm, No murmurs Respiratory: No distress, CTA bilaterally, Chest nontender Abdomen: Soft, Nontender, Nondistended, Normal bowel sounds Rectal: Guaiac negative, Nontender : - - Normal inspection of penis and scrotum. No signs of bleeding no redness or swelling, nontender to palpation. Back: Nontender, Normal Inspection Extremities: Nontender, No edema Skin: Normal color, No rash Neurological: Alert, Oriented x3, Cranial nerves II-XII grossly intact, Normal Strength, Normal Sensation Psychological: Normal affect, Normal Mood <Fadi Neves - Last Filed: 02/23/20 14:55> Vital Signs/Narrative: Vital Signs Temp Pulse Resp BP Pulse Ox 02/23/20 13:57 97.8 F 65 17 147/72 H 98 <Matute,Saurabh - Last Filed: 02/23/20 14:57> Diagnostic/Tx/Re-eval - Medical Decision Making Patient's vital signs are stable. His hemoglobin is 11.4. His last 2 hemoglobins over the past 6 months were 11.8 and 12. Anoscopy shows an internal hemorrhoid. At this time we do not feel the patient requires admission. He is agreeable with plan. Will place on MiraLAX for constipation. He will follow-up with his primary care physician. Return precautions given. <Fadi Neves - Last Filed: 02/23/20 14:55> - Medical Decision Making Patient presents with blood in his underwear. Uncertain of source. He has urinated and has not noted blood. He has had trouble moving his bowels. He has history of hemorrhoids with hemorrhoidectomy. He has no other symptoms. Patient has sentinel tags noted due to prior hemorrhoids. There is no obvious hemorrhoid visualized. Anoscopy was performed by me. A hemorrhoid with fresh clot noted 7:00 lithotomy position. Rectal mucosa otherwise is normal. <Saurabh Matute - Last Filed: 02/23/20 14:57> Procedures Procedure(s): Patient was laid in the lateral decubitus position anoscopy was performed by Dr. Matute there is an internal hemorrhoid noted no acute bleeding <Fadi Neves - Last Filed: 02/23/20 14:55> ED Disposition <Fadi Neves - Last Filed: 02/23/20 14:55> <Saurabh Matute - Last Filed: 02/23/20 14:57> - Plan for ED Patient: Disposition: Home or Assisted Living Diagnosis: Internal hemorrhoid, bleeding, Constipation Instructions: ED Constipation, ED Hemorrhoids Prescriptions: Polyethylene Glycol 3350 [Miralax] 17 gm PO DAILY #14 packet Prescription Printed Referrals: Lam Huffman MD [Primary Care Provider] -
[2020-02-23 14:38] LABS: Absolute Lymphocyte Count 1.72 X10^3/uL (0.83-4.51); Absolute Neutrophil Count 4.3 X10^3/uL (2.0-7.7); Basophil# 0.03 X10^3/uL; Basophil% 0.4 % (0-1); Eosinophils% 1.4 % (0-5); Hematocrit 36.1 % (40-54); Hemoglobin 11.4 g/dL (13.0-16.5); Lymphocyte # 1.72 X10^3/ul (4.0); Lymphocyte % 24.9 % (19-41); Mean Corp Hgb Conc 31.6 g/dL (32-36); Mean Corpuscular Volume 85.5 fL (80-94); Mean Platelet Vol. 9.8 fl (6.2-12.0); Monocyte# 0.78 X10^3/uL; Monocyte% 11.3 % (0-10); NRBC Flagged by Analyzer 0 % (0-5); Neutrophil # 4.26 X10^3/uL (2.7-7.7); Neutrophil % 61.7 % (47-70); Platelet Count 205 K/mm3 (150-450); RBC Distribution Width CV 14.2 % (11.6-14.6); RBC Distribution Width SD 43.9 fl (35.1-43.9); Red Blood Count 4.22 M/mm3 (4.6-6.2); White Blood Count 6.9 K/mm3 (4.4-11.0)
[2020-02-23 15:00] VITALS: BP 112/63; PULSE 64; RESP 25; O2SAT 95
[2020-02-23 15:07] LABS: Anion Gap 4 (5-15); BUN 15 mg/dL (7-18); BUN/Creat Ratio 15.6 RATIO (10-20); Calcium,Total 8.9 mg/dL (8.5-10.1); Chloride 109 mmol/L (98-107); Creatinine, Serum 0.96 mg/dL (0.70-1.30); EST Glomerular Filtration Rate 81 mL/min (>60); Est Glom Filt Rate - Afr Amer 98 mL/min (>60); Estimated Creatinine Clearance 84.05 ml/min; Glucose 83 mg/dL (74-106); Potassium 4.7 mmol/L (3.5-5.1); Sodium Level 141 mmol/L (136-145)
== END 2020-02-23 15:19 | disposition home or self-care (01) ==
LOC: ED 14:50
PROVIDERS: Emergency Provider Physician Assistant Medical; PCP Internal Medicine
DX: K64.8 Other hemorrhoids (principal); K59.00 Constipation, unspecified; E78.5 Hyperlipidemia, unspecified; I10 Essential (primary) hypertension; Z79.82 Long term (current) use of aspirin; Z87.891 Personal history of nicotine dependence; Z79.02 Long term (current) use of antithrombotics/antiplatelets
CPT/HCPCS: 80048; 85025; 99285; A4216

== ENCOUNTER 2020-02-27 09:08 | Emergency (ER) | payer MEDICARE, SELFPAY ==
[2020-02-27 09:10] VITALS: PULSE 77; RESP 16; TEMP 36.6; O2SAT 98
[2020-02-27 09:16] VITALS: BP 112/67; PULSE 77; RESP 15; O2SAT 96
[2020-02-27 09:57] LABS: Absolute Lymphocyte Count 1.51 X10^3/uL (0.83-4.51); Absolute Neutrophil Count 5.3 X10^3/uL (2.0-7.7); Basophil# 0.02 X10^3/uL; Basophil% 0.3 % (0-1); Eosinophil# 0.08 X10^3/uL; Hematocrit 36.6 % (40-54); Hemoglobin 11.6 g/dL (13.0-16.5); Lymphocyte # 1.51 X10^3/ul (4.0); Lymphocyte % 19.5 % (19-41); Mean Corp Hgb Conc 31.7 g/dL (32-36); Mean Corpuscular Hgb 27.2 pg (27.0-32.0); Mean Corpuscular Volume 85.9 fL (80-94); Mean Platelet Vol. 9.3 fl (6.2-12.0); Monocyte% 10.3 % (0-10); NRBC Flagged by Analyzer 0 % (0-5); Neutrophil # 5.32 X10^3/uL (2.7-7.7); Neutrophil % 68.5 % (47-70); Platelet Count 205 K/mm3 (150-450); RBC Distribution Width CV 14.4 % (11.6-14.6); RBC Distribution Width SD 44.8 fl (35.1-43.9); Red Blood Count 4.26 M/mm3 (4.6-6.2); White Blood Count 7.8 K/mm3 (4.4-11.0)
[2020-02-27 10:21] LABS: ALB/GLOB Ratio 0.9 RATIO (0.9-2.4); AST(SGOT) 26 U/L (15-37); Alanine Aminotransfer ALT/SGPT 20 U/L (16-61); Albumin, Serum 3.6 g/dL (3.2-5.0); Alkaline Phosphatase 59 U/L (45-117); Anion Gap 6 (5-15); BUN 22 mg/dL (7-18); BUN/Creat Ratio 18.8 RATIO (10-20); Calcium,Total 8.5 mg/dL (8.5-10.1); Chloride 108 mmol/L (98-107); Creatinine, Serum 1.17 mg/dL (0.70-1.30); EST Glomerular Filtration Rate 64 mL/min (>60); Est Glom Filt Rate - Afr Amer 78 mL/min (>60); Estimated Creatinine Clearance 68.96 ml/min; Globulin 3.9 g/dL (2.2-4.2); Glucose 85 mg/dL (74-106); Potassium 3.7 mmol/L (3.5-5.1); Protein, Total 7.5 g/dL (6.4-8.2); Sodium Level 141 mmol/L (136-145)
--- NOTE | 2020-02-27 10:39 | ED.VIS.GEN ---
History of Present Illness Chief Complaint: Other, Pain/Inj Informant: Patient Narrative: 80-year-old male who presents with concern for loose stools. Patient was seen here 3 days ago and diagnosed with an internal hemorrhoid and placed on MiraLAX. States he has not taken this since a day after yesterday. States that he had a loose stool last night and was able to get to the bathroom. He denies any other constitutional symptoms including abdominal pain, nausea, vomiting, fever, chills, lightheadedness, dizziness. Patient has had no hematochezia or melena. Past Medical History - Allergies and Home Meds Allergies/Adverse Reactions: Allergies raspberry Allergy (Verified 02/27/20 09:16) Other strawberry Allergy (Verified 02/27/20 09:16) Other lemon-[place] flavor Allergy (Uncoded 02/27/20 09:16) Other mushroom Allergy (Uncoded 02/27/20 09:16) Other Primary Care Physician: Lam Huffman MD [Primary Care Provider] - Prior records reviewed: Yes Past Medical History: - - Hypertension and coronary artery disease Surgical History: - - Surgery on right eye hemorrhoidectomy Lives: With Family Smoking Status: Former smoker Alcohol: None Drugs: None - Family History Maternal Family History: Reports: Heart Disease - Heart disease mother Review of Systems General: Denies: Chills, Fever, Sweats Eyes: Denies: Visual changes - bilaterally, Diplopia ENT: Denies: Rhinorrhea, Sore throat Cardiovascular: Denies: Chest pain, Palpitations Respiratory: Denies: Dyspnea, Cough, Dyspnea on exertion Gastrointestinal: Reports: Diarrhea. Denies: Abdominal pain, Nausea, Vomiting, Melena, Hematochezia Genitourinary: Denies: Dysuria, Hematuria, Frequency Musculoskeletal: Denies: Back pain, Extremity Pain Skin: Denies: Rash, Wounds Neurological: Denies: Headache, Weakness, Numbness Physical Exam Vital Signs/Narrative: Vital Signs Temp Pulse Resp BP Pulse Ox 02/27/20 09:16 77 15 112/67 96 02/27/20 09:10 98 F 77 16 98 General: Well nourished, Well developed, No Acute Distress Head: Normocephalic, Atraumatic Eyes: Perrl, EOMI ENT: Moist mucous membranes, No rhinorrhea Neck: Supple, Nontender Cardiovascular: Regular rate, Regular rhythm, No murmurs Respiratory: No distress, CTA bilaterally, Chest nontender Abdomen: Soft, Nontender, Nondistended, Normal bowel sounds Back: Nontender, Normal Inspection Extremities: Nontender, No edema Skin: Normal color, No rash Neurological: Alert, Oriented x3, Cranial nerves II-XII grossly intact, Normal Strength, Normal Sensation Psychological: Normal affect, Normal Mood Diagnostic/Tx/Re-eval Laboratory Data 02/27/20 02/27/20 09:44 09:44 WBC 7.8 RBC 4.26 L Hgb 11.6 L Hct 36.6 L MCV 85.9 MCH 27.2 MCHC 31.7 L RDW Std Deviation 44.8 H RDW Coeff of Donnie 14.4 Plt Count 205 MPV 9.3 Immature Gran % (Auto) 0.400 Neut % (Auto) 68.5 Lymph % (Auto) 19.5 [place] % (Auto) 10.3 H Eos % (Auto) 1.0 Baso % (Auto) 0.3 Absolute Neuts (auto) 5.3 Absolute Lymphs (auto) 1.51 Nucleated RBC % 0 Sodium 141 Potassium 3.7 Chloride 108 H Carbon Dioxide 27.0 Anion Gap 6 BUN 22 H Creatinine 1.17 Estim Creat Clear Calc 68.96 Est GFR (MDRD) Af Amer 78 Est GFR (MDRD) Non-Af 64 BUN/Creatinine Ratio 18.8 Glucose 85 Calcium 8.5 Total Bilirubin 0.50 AST 26 ALT 20 Alkaline Phosphatase 59 Total Protein 7.5 Albumin 3.6 Globulin 3.9 Albumin/Globulin Ratio 0.9 - Medical Decision Making Patient appears well nontoxic. Benign abdominal exam. Lab work within normal limits. On reevaluation patient continues to have a benign abdominal exam. Was given 500 mL fluid bolus. Patient's loose stools likely secondary to the MiraLAX. Advised on switching from MiraLAX to Metamucil. Asked to follow-up with his primary care physician Dr. Huffman. Asked to return for new or worsening symptoms. Discharged home in stable condition. ED Disposition - Plan for ED Patient: Disposition: Home or Assisted Living Diagnosis: Diarrhea Instructions: ED Diet for Vomiting or Diarrhea Adult Referrals: Lam Huffman MD [Primary Care Provider] -
[2020-02-27 10:55] VITALS: BP 118/74; PULSE 67; RESP 15; O2SAT 97
== END 2020-02-27 11:03 | disposition home or self-care (01) ==
PROVIDERS: Emergency Provider Emergency Medicine; PCP Internal Medicine
DX: R19.7 Diarrhea, unspecified (principal); I25.10 Atherosclerotic heart disease of native coronary artery without angina pectoris; I10 Essential (primary) hypertension; Z87.891 Personal history of nicotine dependence
CPT/HCPCS: 80053; 85025; 99285; J7030; A4216

== ENCOUNTER 2021-01-25 20:53 | Emergency (ER) | payer MEDICARE, MEDICAID, SELFPAY ==
[2021-01-25 20:54] VITALS: BP 121/67; PULSE 76; RESP 18; TEMP 36.3; O2SAT 99; BMI 26.9
--- NOTE | 2021-01-25 21:46 | EX.ED.DYSGE1 ---
HPI History of Present Illness Chief Complaint: Other, Pain/Inj Narrative Narrative: This patient is a 81-year-old male who arrives via EMS for a few days of difficulty having a bowel movement and rectal pain. He does have a history of constipation. He takes MiraLAX. He has no abdominal pain. He denies any nausea or vomiting. [facility] Medical History (Updated 01/25/21 @ 23:[address] Arya Oconnor MD) Abnormality of gait Atherosclerotic heart disease of [place] coronary artery without angina pectoris Bilateral hearing loss Blind right eye BPH (benign prostatic hyperplasia) History of non-ST elevation myocardial infarction (NSTEMI) (11/12/18) Hyperlipidemia Osteoarthritis of lumbar spine Physical debility PSA elevation Renal cyst Venous insufficiency Home Medications aspirin 81 mg PO DAILY@0800 tab 11/13/18 [Rx Last Taken 02/26/20] lisinopril 5 mg tablet 5 mg PO DAILY #90 tab 12/03/19 [Rx Last Taken 02/26/20] atorvastatin 40 mg tablet 40 mg PO QHS #30 tab 02/21/20 [Rx Last Taken 02/26/20] clopidogrel 75 mg tablet 75 mg PO .COMPLEX #90 tab 02/21/20 [Rx Last Taken 02/26/20] carbidopa-levodopa 1 ea PO TID 02/23/20 [History Last Taken 02/26/20] polyethylene glycol 3350 17 gm PO DAILY #14 packet 02/23/20 [Rx Last Taken 02/26/20] carvedilol 6.25 mg tablet 6.25 mg PO BID #180 tab 06/02/20 [Rx Last Taken Unknown] Allergy/AdvReac Type Severity Reaction Status Date / Time raspberry Allergy Other Verified 01/25/21 20:54 strawberry Allergy Other Verified 01/25/21 20:54 [place] flavor Allergy Other Uncoded 01/25/21 20:54 mushroom Allergy Other Uncoded 01/25/21 20:54 Surgical History Stented coronary artery (11/12/18) Social History (Updated 02/21/20 @ 13:[address] Rudy Franz MD) Smoking Status: Former smoker ROS ROS ED Constitutional Constitutional ED: Denies fever(s) Cardiovascular Cardiovascular: Denies chest pain Respiratory/Chest Respiratory/Chest: Denies dyspnea Gastrointestinal Gastrointestinal: Reports constipation and other Details: Rectal pain ; Denies abdominal pain Integumentary Denies rash Neurologic Neurologic: Denies headache(s) EXAM Physical Exam Const Vital Signs: 01/25/21 20:54 Temperature 97.4 F L Temperature Source Oral Pulse Rate 76 Respiratory Rate 18 Blood Pressure 121/67 H Blood Pressure Mean 85 Pulse Ox 99 Oxygen Delivery Method Room Air Positive well nourished and well developed General Appearance ED: well developed Eyes EOMs intact bilaterally Neck supple Resp normal respiratory effort Cardio regular rate GI non-tender and non-distended GI Narrative: Rectal exam shows fecal impaction light brown stool no obvious blood or melena Palpation: soft Neuro Sensorium / Orientation: alert Skin no rashes or lesions noted MDM MDM MDM Narrative Medical decision making narrative: Patient was given a fleets enema with small results. I discussed discharged home and doing magnesium citrate at home. He is concerned about his ability to ambulate to the bathroom. Therefore we did repeat a soapsuds enema. Plan will be discharged to continue his laxatives. Discharge Plan Triage Chief Complaint: Other, Pain/Inj ED Provider: Arya Oconnor Dx/Rx/DC Orders Clinical Impression: Constipation Instructions: ED Constipation (Adult) Prescriptions: No Action atorvastatin 40 mg tablet 40 mg PO QHS Qty: 30 RF: 11 clopidogrel [Plavix] 75 mg tablet 75 mg PO .COMPLEX Qty: 90 RF: 3 aspirin 81 MG tablet 81 mg PO DAILY@0800 RF: 0 carbidopa-levodopa 1 EACH tablet,disintegrating 1 ea PO TID RF: 0 polyethylene glycol 3350 17 GM packet 17 gm PO DAILY Qty: 14 RF: 0 lisinopril 5 mg tablet 5 mg PO DAILY Qty: 90 RF: 3 carvedilol 6.25 mg tablet 6.25 mg PO BID Qty: 180 RF: 3 Primary Care Provider: Lam Huffman Referrals: Lam Huffman MD [Primary Care Provider] - Disposition Disposition: Home, self care
[2021-01-25] MEDS: Fleet Enema 1 ML RC (22:35)
[2021-01-25 23:30] VITALS: PULSE 83; RESP 16; O2SAT 96
[2021-01-26 01:56] VITALS: BP 137/82; PULSE 85; RESP 18; O2SAT 100
== END 2021-01-26 02:21 | disposition home or self-care (01) ==
PROVIDERS: Emergency Provider Emergency Medicine; PCP Internal Medicine
DX: K59.00 Constipation, unspecified (principal); I25.10 Atherosclerotic heart disease of native coronary artery without angina pectoris; Z87.891 Personal history of nicotine dependence
CPT/HCPCS: 99285

== ENCOUNTER 2021-02-09 18:07 | Emergency (ER) | payer MEDICARE, MEDICAID, SELFPAY ==
[2021-02-09 18:08] VITALS: BP 102/66; PULSE 71; RESP 16; TEMP 36.5; O2SAT 98; BMI 29.3
--- NOTE | 2021-02-09 18:13 | CT_ITS ---
STUDY: CT CERVICAL SPINE WITHOUT CONTRAST REASON FOR EXAM: Male, 81 years old. fall RADIATION DOSAGE (If Supplied By Facility): CTDIvol = ( 13.70 ) mGy, DLP = ( 305.44 ) mGycm TECHNIQUE: High resolution transaxial imaging was performed without contrast material. Sagittal and coronal images were reconstructed. Individualized dose optimization techniques were used for this CT. COMPARISON: None FINDINGS: Normal craniovertebral junction. Normal anterior atlantoaxial articulation. Normal odontoid process. Normal cervical lordosis. Normal vertebral bodies and posterior osseous elements. C2-3: Near complete fusion of C2 with C3 vertebral bodies. Normal central canal and intervertebral neuroforamina. C3-4: Narrowed disc space and endplate spurring. Normal central canal. Severe left neuroforaminal stenosis and moderate narrowing on the right secondary to bony hypertrophy C4-5: Narrowed disc space and mild endplate spurring.. Normal central canal. Moderate right neuroforaminal stenosis secondary to bony hypertrophy. C5-6: Normal endplates. Normal disc height and tiny central calcific disc or osteophyte protrusion. Normal central canal and intervertebral neuroforamina. C6-7: Narrowed disc space and mild endplate spurring. Normal central canal and intervertebral neuroforamina. C7-T1: Normal endplates. Normal disc height and morphology. Normal central canal and intervertebral neuroforamina. Normal visualized soft tissue structures. CT/Spine Cervical without Contras IMPRESSION: No acute fracture. Moderate spondylosis. Electronically Signed: Forest Butcher MD at 20:42 EDT , Service support ,
--- NOTE | 2021-02-09 18:13 | EKG12_ITS ---
Test Reason : DYSRHYTHMIA Blood Pressure : / mmHG Vent. Rate : 074 BPM Atrial Rate : 074 BPM P-R Int : 228 ms QRS Dur : 124 ms QT Int : 432 ms P-R-T Axes : 061 -09 032 degrees QTc Int : 479 ms Sinus rhythm with sinus arrhythmia with 1st degree A-V block Septal infarct , age undetermined Abnormal ECG Confirmed by LILIAN MURRAY, MONTRELL ([id number]), assistant editor ELIN CORONA ([id number]) on 02/11/2021 10:09:02 AM Referred By: JELLY Confirmed By:MONTRELL QUINTANA MD
--- NOTE | 2021-02-09 18:13 | CT_ITS ---
EXAMINATION : Head CT w/out contrast HISTORY : fall COMPARISON : 10/01/2018. TECHNIQUE : Multiple contiguous axial images were obtained from the skull base to the vertex without intravenous contrast. A radiation dose optimization technique was used for this scan. FINDINGS : The ventricles and sulci are normal in size. There is no evidence for acute intracranial hemorrhage, mass effect, or midline shift. There is no extra-axial fluid collection. There is normal frank-white differentiation, without CT evidence of acute ischemia or infarct. The skull base and calvarium are unremarkable. Right globe prosthesis. The paranasal sinuses are clear. The mastoid air cells are well-aerated. The soft tissues are unremarkable. CT/Brain/Head without Contrast IMPRESSION: No acute intracranial abnormality. Electronically Signed: Shahzad Barroso MD at 20:28 EDT Tel , Service support ,
--- NOTE | 2021-02-09 18:13 | CT_ITS ---
STUDY: CT CHEST WITHOUT CONTRAST REASON FOR EXAM: Male, 81 years old. fall RADIATION DOSAGE (If Supplied By Facility): CTDIvol = ( 14.53 ) mGy, DLP = ( 635.67 ) mGycm TECHNIQUE: Transaxial imaging was performed without the administration of intravenous contrast material. Individualized dose optimization techniques were used for this CT. COMPARISON: None. FINDINGS: Mild pleural parenchymal scarring in the right apex and minimal scarring or subsegmental atelectasis in both lower lobes slightly more pronounced on the left. No gross infiltration or pulmonary nodule.. There is no demonstrated pleural abnormality. Normal heart and pericardium. Normal mediastinum. Normal hilar regions. Normal unenhanced pulmonary arteries. Atherosclerotic changes of the aorta and mild aneurysmal dilatation of the ascending segment measuring approximately 4.6 x 4.3 cm Dorsal spine demonstrates degenerative change. There is no evidence for acute fracture. Small left renal cyst is noted CT/Chest without Contrast IMPRESSION: ASHD and mild aneurysmal dilatation of the ascending aorta. Minor subsegmental atelectasis in left lower lobe No acute abnormalities Electronically Signed: Forest Butcher MD at 20:38 EDT , Service support ,
--- NOTE | 2021-02-09 18:14 | EDS_ITS ---
HPI History of Present Illness Chief Complaint: Fall Informant: patient Narrative Narrative: Patient presents after a fall. He was getting out of his lift chair when he fell forward as he was reaching for his walking stick. The left ear is in the up position. No LOC. He is complaining some achiness on the left side of his chest. He has a mild headache. He denies any neck or back pain. He does have a history of atherosclerotic coronary disease. He states that this feels different. He took nothing for this pain. This fall occurred just prior to arrival. [facility] Medical History (Updated 02/09/21 @ 20:[address] Jorgito Chinchilla MD) Abnormality of gait Atherosclerotic heart disease of [place] coronary artery without angina pectoris Bilateral hearing loss Blind right eye BPH (benign prostatic hyperplasia) History of non-ST elevation myocardial infarction (NSTEMI) (11/12/18) Hyperlipidemia Osteoarthritis of lumbar spine Physical debility PSA elevation Renal cyst Venous insufficiency Home Medications aspirin 81 mg PO DAILY@0800 tab 11/13/18 [Rx Last Taken 02/26/20] lisinopril 5 mg tablet 5 mg PO DAILY #90 tab 12/03/19 [Rx Last Taken 02/26/20] atorvastatin 40 mg tablet 40 mg PO QHS #30 tab 02/21/20 [Rx Last Taken 02/26/20] clopidogrel 75 mg tablet 75 mg PO .COMPLEX #90 tab 02/21/20 [Rx Last Taken 02/26/20] carbidopa-levodopa 1 ea PO TID 02/23/20 [History Last Taken 02/26/20] polyethylene glycol 3350 17 gm PO DAILY #14 packet 02/23/20 [Rx Last Taken 02/26/20] carvedilol 6.25 mg tablet 6.25 mg PO BID #180 tab 06/02/20 [Rx Last Taken Unknown] Allergy/AdvReac Type Severity Reaction Status Date / Time raspberry Allergy Other Verified 02/09/21 18:28 strawberry Allergy Other Verified 02/09/21 18:28 [place] flavor Allergy Other Uncoded 02/09/21 18:28 mushroom Allergy Other Uncoded 02/09/21 18:28 Surgical History Stented coronary artery (11/12/18) Social History Smoking Status: Former smoker ROS ROS ED Constitutional Constitutional ED: Denies chills or fever(s) Eyes Eyes: Denies blurry vision, change in vision or diplopia ENT ENT ED: Denies ear pain, rhinorrhea or sore throat Cardiovascular Cardiovascular: Reports chest pain Respiratory/Chest Respiratory/Chest: Denies cough, dyspnea or sputum Gastrointestinal Gastrointestinal: Denies abdominal pain, diarrhea, nausea or vomiting Genitourinary Genitourinary ED: Denies dysuria, hematuria or urinary frequency Musculoskeletal Musculoskeletal: Denies back pain or neck pain Integumentary Denies change in pigmentation or rash Neurologic Neurologic: Reports headache(s) Psychiatric Psychiatric: Denies anxiety or depression Endocrine Endocrinology: Denies polydipsia or polyuria EXAM Physical Exam Const Vital Signs: 02/09/21 18:08 02/09/21 18:25 Temperature 97.7 F L Temperature Source Temporal Pulse Rate 71 Respiratory Rate 16 Respiratory Effort Normal Blood Pressure 102/66 Blood Pressure Mean 78 Pulse Ox 98 Oxygen Delivery Method Room Air Room Air Positive well nourished and well developed General Appearance ED: well developed and NAD HEENT Reports moist mucous membranes normocephalic and atraumatic; Negative for tenderness Eyes PERRL and EOMs intact bilaterally Neck supple and no JVD Chest Wall inspection of chest normal and palpation of chest normal Chest: Negative for tenderness Resp normal respiratory effort and clear to auscultation bilaterally Effort and Inspection: Negative for respiratory distress Cardio regular rate, regular rhythm and no murmurs Rate: regular rate Rhythm: regular rhythm GI soft to palpation, non-tender and non-distended Palpation: soft Back/Spine no CVA tenderness and no thoracic nor lumbar tenderness Back/Spine Narrative: No C-spine tenderness. Cervical Spine: Negative for cervical spine tenderness Extremity normal to inspection and full ROM Extremity Narrative: Bilateral lymphedema. There is some sores on the right leg which are being cared for General Extremety ED: Yes edema; Negative for tenderness General Extremity: edema Neuro oriented x3, CN's II-XII intact bilaterally and no sensory deficits noted Neuro Narrative: He does have mild diffuse generalized weakness which is chronic for him. Sensorium / Orientation: awake and alert Psych mental status grossly normal Skin no rashes or lesions noted MDM MDM MDM Narrative Medical decision making narrative: The patient had laboratory studies which show a hemoglobin of 11.7. His potassium is 2.8. Creatinine is 1.43. Troponin was normal. EKG was sinus rhythm with no ischemia. CAT scan of the head, cervical spine and chest shows nothing acute. I did replace the patient's potassium. The patient does say he does have follow-up with Dr. Ward tomorrow at 3 PM I feel that he can continue with this appointment and will be discharged tonight. Lab Data Labs: Laboratory Results - last 24 hr 02/09/21 02/09/21 18:30 18:30 WBC 7.7 RBC 4.38 L Hgb 11.7 L Hct 36.8 L MCV 84.0 MCH 26.7 L MCHC 31.8 L RDW Std Deviation 42.0 RDW Coeff of [place]nie 13.6 Plt Count 249 MPV 9.1 Immature Gran % (Auto) 0.300 Neut % (Auto) 71.8 H Lymph % (Auto) 15.4 [place] % (Auto) 11.2 H Eos % (Auto) 0.9 Baso % (Auto) 0.4 Absolute Neuts (auto) 5.6 Absolute Lymphs (auto) 1.19 Nucleated RBC % 0 Sodium 138 Potassium 2.8 L Chloride 94 L Carbon Dioxide 37.0 H Anion Gap 7 BUN 23 H Creatinine 1.43 H Estim Creat Clear Calc 50.06 Est GFR (MDRD) Af Amer 61 Est GFR (MDRD) Non-Af 51 L BUN/Creatinine Ratio 16.1 Glucose 103 Calcium 9.5 Troponin I < 0.015 Radiography Diagnostic Testing: Radiology Impression Brain CT 02/09/21 18:13 IMPRESSION: No acute intracranial abnormality. Electronically Signed: Shahzad Barroso MD at 20:28 EDT Tel , Service support , Cervical Spine CT 02/09/21 18:13 IMPRESSION: No acute fracture. Moderate spondylosis. Electronically Signed: Forest Butcher MD at 20:42 EDT , Service support , Chest CT 02/09/21 18:13 IMPRESSION: ASHD and mild aneurysmal dilatation of the ascending aorta. Minor subsegmental atelectasis in left lower lobe No acute abnormalities Electronically Signed: Forest Butcher MD at 20:38 EDT , Service support , Discharge Plan Triage Chief Complaint: Fall ED Provider: Jorgito Chinchilla Dx/Rx/DC Orders Clinical Impression: Fall, Acute hypokalemia Instructions: ED Fall Prevention Prescriptions: No Action atorvastatin 40 mg tablet 40 mg PO QHS Qty: 30 RF: 11 clopidogrel [Plavix] 75 mg tablet 75 mg PO .COMPLEX Qty: 90 RF: 3 aspirin 81 MG tablet 81 mg PO DAILY@0800 RF: 0 carbidopa-levodopa 1 EACH tablet,disintegrating 1 ea PO TID RF: 0 polyethylene glycol 3350 17 GM packet 17 gm PO DAILY Qty: 14 RF: 0 lisinopril 5 mg tablet 5 mg PO DAILY Qty: 90 RF: 3 carvedilol 6.25 mg tablet 6.25 mg PO BID Qty: 180 RF: 3 Primary Care Provider: Lam Huffman Referrals: Lam Huffman MD [Primary Care Provider] - Disposition Disposition: Home, self care
[2021-02-09 18:38] LABS: Absolute Lymphocyte Count 1.19 X10^3/uL (0.83-4.51); Absolute Neutrophil Count 5.6 X10^3/uL (2.0-7.7); Basophil# 0.03 X10^3/uL; Basophil% 0.4 % (0-1); Eosinophil# 0.07 X10^3/uL; Eosinophils% 0.9 % (0-5); Hematocrit 36.8 % (40-54); Hemoglobin 11.7 g/dL (13.0-16.5); Lymphocyte # 1.19 X10^3/ul (0.83-4.51); Lymphocyte % 15.4 % (19-41); Mean Corp Hgb Conc 31.8 g/dL (32-36); Mean Corpuscular Hgb 26.7 pg (27.0-32.0); Mean Platelet Vol. 9.1 fl (6.2-12.0); Monocyte# 0.87 X10^3/uL; Monocyte% 11.2 % (0-10); NRBC Flagged by Analyzer 0 % (0-5); Neutrophil # 5.56 X10^3/uL (2.7-7.7); Neutrophil % 71.8 % (47-70); Platelet Count 249 K/mm3 (150-450); RBC Distribution Width CV 13.6 % (11.6-14.6); Red Blood Count 4.38 M/mm3 (4.6-6.2); White Blood Count 7.7 K/mm3 (4.4-11.0)
[2021-02-09 18:57] LABS: Anion Gap 7 (5-15); BUN 23 mg/dL (7-18); BUN/Creat Ratio 16.1 RATIO (10-20); Calcium,Total 9.5 mg/dL (8.5-10.1); Chloride 94 mmol/L (98-107); Creatinine, Serum 1.43 mg/dL (0.70-1.30); EST Glomerular Filtration Rate 51 mL/min (>60); Est Glom Filt Rate - Afr Amer 61 mL/min (>60); Estimated Creatinine Clearance 50.06 ml/min; Glucose 103 mg/dL (74-106); Potassium 2.8 mmol/L (3.5-5.1); Sodium Level 138 mmol/L (136-145)
[2021-02-09] MEDS: Potassium Chloride Oral Tablet 20 MEQ 40 MEQ PO (19:21)
[2021-02-09 20:08] VITALS: RESP 17
[2021-02-09 22:07] VITALS: BP 114/71; PULSE 68; RESP 18; O2SAT 99
== END 2021-02-09 22:08 | disposition home or self-care (01) ==
PROVIDERS: Emergency Provider Emergency Medicine; PCP Internal Medicine
DX: E87.6 Hypokalemia (principal); I25.10 Atherosclerotic heart disease of native coronary artery without angina pectoris; Z87.891 Personal history of nicotine dependence
CPT/HCPCS: 70450; 71250; 72125; 80048; 84484; 85025; 93005; 99285; A4216

== ENCOUNTER 2021-05-04 09:22 | Inpatient (IN) | payer MEDICARE, MEDICAID, SELFPAY ==
[2021-05-04 09:24] VITALS: BP 132/62; PULSE 78; RESP 10; TEMP 37; O2SAT 96; BMI 27.7
--- NOTE | 2021-05-04 09:38 | EDS_ITS ---
HPI History of Present Illness Chief Complaint: Wound Narrative Narrative: Patient presents with bilateral lower extremity edema, home health care noticed maggots in the right lower extremity. Patient is denying fevers or chills, he has had worsening edema and redness of both his legs recently. No chest pain or shortness of breath. [facility] Medical History (Updated 05/04/21 @ 11:[address] Pablito Mckeon MD) Abnormality of gait Atherosclerotic heart disease of [place] coronary artery without angina pectoris Bilateral hearing loss Blind right eye BPH (benign prostatic hyperplasia) History of non-ST elevation myocardial infarction (NSTEMI) (11/12/18) Hyperlipidemia Osteoarthritis of lumbar spine Physical debility PSA elevation Renal cyst Venous insufficiency Home Medications aspirin 81 mg PO DAILY@0800 tab 11/13/18 [Rx Last Taken 02/26/20] lisinopril 5 mg tablet 5 mg PO DAILY #90 tab 12/03/19 [Rx Last Taken 02/26/20] atorvastatin 40 mg tablet 40 mg PO QHS #30 tab 02/21/20 [Rx Last Taken 02/26/20] clopidogrel 75 mg tablet 75 mg PO .COMPLEX #90 tab 02/21/20 [Rx Last Taken 02/26/20] carbidopa-levodopa 1 ea PO TID 02/23/20 [History Last Taken 02/26/20] polyethylene glycol 3350 17 gm PO DAILY #14 packet 02/23/20 [Rx Last Taken 02/26/20] carvedilol 6.25 mg tablet 6.25 mg PO BID #180 tab 06/02/20 [Rx Last Taken Unknown] furosemide 20 mg PO BID 05/04/21 [History Last Taken Unknown] potassium chloride 20 meq PO DAILY 05/04/21 [History Last Taken Unknown] Allergy/AdvReac Type Severity Reaction Status Date / Time raspberry Allergy Other Verified 05/04/21 09:31 strawberry Allergy Other Verified 05/04/21 09:31 lemon-[place] flavor Allergy Other Uncoded 05/04/21 09:31 mushroom Allergy Other Uncoded 05/04/21 09:31 Surgical History Stented coronary artery (11/12/18) Social History Smoking Status: Former smoker ROS ROS ED ROS Narrative Past medical history: Reviewed, relevant for coronary artery disease, hypertension, hypercholesterolemia, chronic venous insufficiency, physical debility. Medications: Reviewed Social history: Noncontributory Review of systems: All systems negative except as indicated General: No fever Eyes: No visual changes ENT: No upper airway congestion, normal voice Neck: No neck pain Cardiovascular: No chest pain Respiratory: No shortness of breath or cough Gastrointestinal: No abdominal pain, nausea vomiting or diarrhea Genitourinary: No dysuria Musculoskeletal: Lower extremity edema with worsening redness. He tells me he has no pain. Skin: Lower extremity as above otherwise no other rashes. Neurological: No memory loss, confusion or any focal weakness Psych: No recent behavioral changes Hematologic: No easy bleeding or easy bruising EXAM Physical Exam Narrative Exam Narrative: Physical exam General: Patient appears chronically ill, he does not appear in significant distress he is comfortable in bed. Head: Normocephalic, Atraumatic Eyes: Conjunctiva not pale ENT: Moist mucous membranes Neck: Supple, Nontender, No lymphadenopathy Cardiovascular: Regular rate, Regular rhythm Respiratory: No distress, coarse bilateral breath sounds. Speaks in full sentences. Abdomen: Soft, Nontender, Nondistended Back: Nontender, Normal Inspection. Negative for: CVA tenderness Extremities: Patient has chronic bilateral lymphedema, he has chronic wounds which are bandaged, as I remove the bandage especially on the right there is significant wounds and one of them has dozens of maggots. Skin: Chronic wounds and cellulitis as above Neurological: Alert, Normal Strength, Normal Sensation Psychological: Normal affect Const Vital Signs: 05/04/21 09:24 Temperature 98.6 F Temperature Source Temporal Pulse Rate 78 Respiratory Rate 10 L Blood Pressure 132/62 H Blood Pressure Mean 85 Pulse Ox 96 Oxygen Delivery Method Room Air MDM MDM MDM Narrative Medical decision making narrative: Wound was cleaned, peroxide was used for the maggots. Patient has elevated ESR and CRP. He needs to be ruled out for osteomyelitis. I started IV antibiotics and I will admit him. Lab Data Labs: Laboratory Results - last 24 hr 05/04/21 05/04/21 10:15 10:15 WBC 8.7 RBC 4.04 L Hgb 11.0 L Hct 33.8 L MCV 83.7 MCH 27.2 MCHC 32.5 RDW Std Deviation 44.6 H RDW Coeff of Donnie 14.6 Plt Count 246 MPV 9.3 Immature Gran % (Auto) 0.200 Neut % (Auto) 69.8 Lymph % (Auto) 17.0 L [place] % (Auto) 10.2 H Eos % (Auto) 2.5 Baso % (Auto) 0.3 Absolute Neuts (auto) 6.1 Absolute Lymphs (auto) 1.48 Nucleated RBC % 0 ESR 72 H Sodium 137 Potassium 3.9 Chloride 104 Carbon Dioxide 26.0 Anion Gap 7 BUN 16 Creatinine 1.01 Estim Creat Clear Calc 78.60 Est GFR (MDRD) Af Amer 92 Est GFR (MDRD) Non-Af 76 BUN/Creatinine Ratio 15.8 Glucose 103 Calcium 8.8 Total Bilirubin 0.40 AST 21 ALT 15 L Alkaline Phosphatase 68 C-React Prot Ext Range 22.20 H Total Protein 7.7 Albumin 3.0 L Globulin 4.7 H Albumin/Globulin Ratio 0.6 L Radiography Diagnostic Testing: Radiology Impression Foot X-Ray 05/04/21 09:40 IMPRESSION: Diffuse soft tissue swelling worse overlying the dorsal aspect of the foot. Findings suggestive of an ulcerated lesion overlying the posterior calcaneus Electronically Signed: Fernando Grullon MD at 11:12 EDT , Service support , Foot X-Ray 05/04/21 10:50 IMPRESSION: Diffuse soft tissue swelling especially overlying the dorsal aspect of the foot with the small amount of gas within the soft tissues. Electronically Signed: Fernando Grullon MD at 11:11 EDT , Service support , Discharge Plan Triage Chief Complaint: Wound ED Provider: Pablito Mckeon Dx/Rx/DC Orders Clinical Impression: Bilateral cellulitis of lower leg Prescriptions: No Action atorvastatin 40 mg tablet 40 mg PO QHS Qty: 30 RF: 11 clopidogrel [Plavix] 75 mg tablet 75 mg PO .COMPLEX Qty: 90 RF: 3 aspirin 81 MG tablet 81 mg PO DAILY@0800 RF: 0 carbidopa-levodopa 1 EACH tablet,disintegrating 1 ea PO TID RF: 0 polyethylene glycol 3350 17 GM packet 17 gm PO DAILY Qty: 14 RF: 0 potassium chloride 20 mEq tablet,ER particles/crystals 20 meq PO DAILY RF: 0 furosemide 20 mg tablet 20 mg PO BID RF: 0 lisinopril 5 mg tablet 5 mg PO DAILY Qty: 90 RF: 3 carvedilol 6.25 mg tablet 6.25 mg PO BID Qty: 180 RF: 3 Primary Care Provider: Lam Huffman Referrals: Lam Huffman MD [Primary Care Provider] - Disposition Disposition: Acute Care Hospital [facility]
--- NOTE | 2021-05-04 09:40 | RAD_ITS ---
STUDY: X-RAY - RIGHT FOOT CLINICAL: Male, 81 years old. INFECTION TECHNIQUE: 3 view(s) of the foot. COMPARISON: None. FINDINGS: There is a plantar calcaneal spur. Normal visualized subtalar, talonavicular, calcaneocuboid, tarsal and tarsometatarsal articulations. Normal metatarsi. Normal metatarsophalangeal joint of the great toe. Normal tibial and fibular sesamoid bones. Normal interphalangeal joint of the great toe. Normal phalanges of the great toe. Normal second through fifth metatarsophalangeal joints. Normal interphalangeal joints and phalanges of the lesser toes. Diffuse soft tissue swelling worse overlying the dorsal aspect of the foot. Findings suggestive of an ulcerated lesion overlying the posterior calcaneus. RAD/Foot min 3 Views IMPRESSION: Diffuse soft tissue swelling worse overlying the dorsal aspect of the foot. Findings suggestive of an ulcerated lesion overlying the posterior calcaneus Electronically Signed: Fernando Grullon MD at 11:12 EDT , Service support ,
[2021-05-04 10:40] LABS: Erythrocyte Sedimentation Rate 72 mm/hr (0-20)
[2021-05-04 10:45] LABS: Absolute Lymphocyte Count 1.48 X10^3/uL (0.83-4.51); Absolute Neutrophil Count 6.1 X10^3/uL (2.0-7.7); Basophil# 0.03 X10^3/uL; Basophil% 0.3 % (0-1); Eosinophil# 0.22 X10^3/uL; Eosinophils% 2.5 % (0-5); Hematocrit 33.8 % (40-54); Lymphocyte # 1.48 X10^3/ul (0.83-4.51); Mean Corp Hgb Conc 32.5 g/dL (32-36); Mean Corpuscular Hgb 27.2 pg (27.0-32.0); Mean Corpuscular Volume 83.7 fL (80-94); Mean Platelet Vol. 9.3 fl (6.2-12.0); Monocyte# 0.89 X10^3/uL; Monocyte% 10.2 % (0-10); NRBC Flagged by Analyzer 0 % (0-5); Neutrophil # 6.07 X10^3/uL (2.7-7.7); Neutrophil % 69.8 % (47-70); Platelet Count 246 K/mm3 (150-450); RBC Distribution Width CV 14.6 % (11.6-14.6); RBC Distribution Width SD 44.6 fl (35.1-43.9); Red Blood Count 4.04 M/mm3 (4.6-6.2); White Blood Count 8.7 K/mm3 (4.4-11.0)
--- NOTE | 2021-05-04 10:50 | RAD_ITS ---
STUDY: X-RAY - LEFT FOOT CLINICAL: Male, 81 years old. Leg wounds. TECHNIQUE: 3 view(s) of the foot. COMPARISON: None. FINDINGS: There is a plantar calcaneal spur. Normal visualized subtalar, talonavicular, calcaneocuboid, tarsal and tarsometatarsal articulations. Normal metatarsi. Normal metatarsophalangeal joint of the great toe. Normal tibial and fibular sesamoid bones. Normal interphalangeal joint of the great toe. Normal phalanges of the great toe. Normal second through fifth metatarsophalangeal joints. Normal interphalangeal joints and phalanges of the lesser toes. Diffuse soft tissue swelling. Small amount of air is seen in the soft tissues overlying the dorsal aspect of the foot. RAD/Foot min 3 Views IMPRESSION: Diffuse soft tissue swelling especially overlying the dorsal aspect of the foot with the small amount of gas within the soft tissues. Electronically Signed: Fernando Grullon MD at 11:11 EDT , Service support ,
[2021-05-04 10:56] LABS: ALB/GLOB Ratio 0.6 RATIO (0.9-2.4); AST(SGOT) 21 U/L (15-37); Alanine Aminotransfer ALT/SGPT 15 U/L (16-61); Alkaline Phosphatase 68 U/L (45-117); Anion Gap 7 (5-15); BUN 16 mg/dL (7-18); BUN/Creat Ratio 15.8 RATIO (10-20); Calcium,Total 8.8 mg/dL (8.5-10.1); Chloride 104 mmol/L (98-107); Creatinine, Serum 1.01 mg/dL (0.70-1.30); EST Glomerular Filtration Rate 76 mL/min (>60); Est Glom Filt Rate - Afr Amer 92 mL/min (>60); Globulin 4.7 g/dL (2.2-4.2); Glucose 103 mg/dL (74-106); Potassium 3.9 mmol/L (3.5-5.1); Protein, Total 7.7 g/dL (6.4-8.2); Sodium Level 137 mmol/L (136-145)
--- NOTE | 2021-05-04 11:36 | HP.PCM.HOS_ITS ---
HPI - General General Date of Admission: 05/04/21 HPI Narrative RADHA ZAMBRANO, is a 81 M with a PMH as outlined who presents via the ED on 05/04/2021 with a complaint of a RLE wound. His home health outreach coordinator noticed maggots in his wound; he has chronic LE lymphedema. He complained of worsening redness and swelling of his right leg. He denied any fever, chills, shortness of breath, any discharge from the wound or any other symptoms. Review of systems otherwise negative. Vitals in the ED were blood pressure 132/62, pulse rate of 78, respiratory rate of 10 and temperature of 98.6 Fahrenheit. Labs showed WBC of 8.7 with hemoglobin of 11 and platelets of 246. BMP showed sodium of 137 with b icarb of 26 and potassium of 3.9 and creatinine of 1.01. ESR is 72mm/hr and CRP was also elevated at 22.20. He is being admitted to be managed for cellulitis and ulceration of the RLE. [facility] Medical History (Updated 05/04/21 @ 11:[address] Pablito Mckeon MD) Abnormality of gait Atherosclerotic heart disease of [place] coronary artery without angina pectoris Bilateral hearing loss Blind right eye BPH (benign prostatic hyperplasia) History of non-ST elevation myocardial infarction (NSTEMI) (11/12/18) Hyperlipidemia Osteoarthritis of lumbar spine Physical debility PSA elevation Renal cyst Venous insufficiency Home Medications aspirin 81 mg PO DAILY@0800 tab 11/13/18 [Rx Last Taken 02/26/20] atorvastatin 40 mg tablet 40 mg PO QHS #30 tab 02/21/20 [Rx Last Taken 02/26/20] clopidogrel 75 mg tablet 75 mg PO .COMPLEX #90 tab 02/21/20 [Rx Last Taken 02/26/20] carbidopa-levodopa 1 ea PO TID 02/23/20 [History Last Taken 02/26/20] carvedilol 6.25 mg tablet 6.25 mg PO BID #180 tab 06/02/20 [Rx Last Taken Unknown] furosemide 40 mg PO DAILY 05/04/21 [History Last Taken Unknown] polyethylene glycol 3350 17 g PO DAILY PRN 05/04/21 [History Last Taken Unknown] potassium chloride 20 meq PO DAILY 05/04/21 [History Last Taken Unknown] Allergy/AdvReac Type Severity Reaction Status Date / Time raspberry Allergy Other Verified 05/04/21 09:31 strawberry Allergy Other Verified 05/04/21 09:31 lemon-[place] flavor Allergy Other Uncoded 05/04/21 09:31 mushroom Allergy Other Uncoded 05/04/21 09:31 Surgical History Stented coronary artery (11/12/18) Social History Smoking Status: Former smoker ROS Constitutional Constitutional: Denies anorexia, change in weight, chills, fatigue, fever(s), malaise or weakness ENT HEENT: Denies dysphagia, headache(s) or nasal congestion Cardiovascular Cardiovascular: Denies chest pain, dyspnea on exertion, edema, lightheadedness, orthopnea or rapid heart rate Respiratory/Chest Respiratory/Chest: Denies cough, productive cough, shortness of breath at rest or shortness of breath with exertion Gastrointestinal Gastrointestinal: Denies abdominal pain, diarrhea, dyspepsia, nausea or vomiting Genitourinary Genitourinary: Reports burning urination; Denies dysuria, urinary frequency or urinary hesitancy Musculoskeletal Musculoskeletal: Denies arthralgias, joint stiffness or joint swelling Neurologic Neurologic: Denies confusion, dizziness or focal weakness Endocrine Endocrinology: Denies change in body appearance Vital Signs Vital Signs Vital Signs: 05/04/21 09:24 Temperature 98.6 F Temperature Source Temporal Pulse Rate 78 Respiratory Rate 10 L Blood Pressure 132/62 H Blood Pressure Mean 85 Pulse Ox 96 Oxygen Delivery Method Room Air Weight Weight: 246 lb Body Mass Index (BMI) 27.7 Physical Exam Const alert, oriented x3 and no apparent distress General Appearance: cooperative HEENT normocephalic, head/scalp atraumatic, hearing grossly normal bilaterally and moist oral mucous membranes Eyes PERRL, EOMs intact bilaterally and conjunctivae normal Neck no lymphadenopathy, supple and no JVD Resp normal respiratory effort, no retractions, no use of accessory muscles and clear to auscultation bilaterally Cardio regular rate, regular rhythm, S1 normal heart sound, S2 normal heart sound and no murmurs GI normal to inspection, nondistended, normoactive bowel sounds, soft to palpation, non-tender and non-distended Extremity Extremity Narrative: bilateral LE edema, with superficial blisters and ulcerations all over LEs, with ulcer in the heels of his LEs. Peripheral Pulses: Yes pulses 2+ throughout Neuro oriented x3 and CN's II-XII intact bilaterally Sensorium / Orientation: awake and alert Psych affect normal Results Lab / Micro Data Result Diagrams: 05/04/21 10:15 05/04/21 10:15 Labs: Laboratory Results - last 24 hr 05/04/21 10:15: WBC 8.7, RBC 4.04 L, Hgb 11.0 L, Hct 33.8 L, MCV 83.7, MCH 27.2, MCHC 32.5, RDW Std Deviation 44.6 H, RDW Coeff of Donnie 14.6, Plt Count 246, MPV 9.3, Immature Gran % (Auto) 0.200, Neut % (Auto) 69.8, Lymph % (Auto) 17.0 L, [place] % (Auto) 10.2 H, Eos % (Auto) 2.5, Baso % (Auto) 0.3, Absolute Neuts (auto) 6.1, Absolute Lymphs (auto) 1.48, Nucleated RBC % 0, ESR 72 H 05/04/21 10:15: Sodium 137, Potassium 3.9, Chloride 104, Carbon Dioxide 26.0, Anion Gap 7, BUN 16, Creatinine 1.01, Estim Creat Clear Calc 78.60, Est GFR (MDRD) Af Amer 92, Est GFR (MDRD) Non-Af 76, BUN/Creatinine Ratio 15.8, Glucose 103, Calcium 8.8, Total Bilirubin 0.40, AST 21, ALT 15 L, Alkaline Phosphatase 68, C-React Prot Ext Range 22.20 H, Total Protein 7.7, Albumin 3.0 L, Globulin 4.7 H, Albumin/Globulin Ratio 0.6 L Micro: Microbiology 05/04/21 09:55 Nasal Secretion SARS-CoV-2 Antigen (Rapid) - Final Radiology Impression Foot X-Ray 05/04/21 09:40 IMPRESSION: Diffuse soft tissue swelling worse overlying the dorsal aspect of the foot. Findings suggestive of an ulcerated lesion overlying the posterior calcaneus Electronically Signed: Fernando Grullon MD at 11:12 EDT , Service support , Foot X-Ray 05/04/21 10:50 IMPRESSION: Diffuse soft tissue swelling especially overlying the dorsal aspect of the foot with the small amount of gas within the soft tissues. Electronically Signed: Fernando Grullon MD at 11:11 EDT , Service support , Assessment & Plan Assessment/Plan (1) Fall: (2) Bilateral cellulitis of lower leg: PLAN: #Cellulitis and ulcers of the LEs * Admit to [facility] * Patient does have a history of bilateral lower extremity lymphedema and he even had maggots crawling in his wounds on admission in the ED. * Foot x-ray showed diffuse soft tissue swelling worse over the dorsal aspect of the foot and ulceration over the calcaneus of the right foot. * Patient started on IV clindamycin in the ED. We will continue IV clindamycin. * Consult podiatry. * Hydrate gently with IV fluids. * Consult wound care. * Get wound cultures and blood cultures. * #Bilateral lower extremity lymphedema * As above. * On Lasix 40 mg daily * #CAD: * Had non-STEMI in 2018 with balloon dilatation of the ostium of diagonal artery and PCI with stents to the proximal LAD and mid LAD. * On aspirin and Plavix as well as carvedilol and high intensity statin #History of Alzheimer's dementia: On levodopa carbidopa. DVT prophylaxis: Lovenox CODE STATUS: Full code * Patient counseled extensively about different types of CODE STATUS including full code, DNR CCA and DNR CCA. Patient elects to be full code. Total [id number] time 17 minutes. Charges/Coding Visit Charges Inpatient E&M: 24983 Init Hosp L3 Procedures Hospitalists Procedures: 72509 Advncd Care Plan 30 Min
--- NOTE | 2021-05-04 11:58 | NURSING ---
MED SURG KORAM CELLULITIS
[2021-05-04 12:39] VITALS: BP 127/62; PULSE 67; RESP 19; TEMP 36.2
[2021-05-04 13:27] VITALS: BMI 28.5
[2021-05-04 13:55] VITALS: BP 126/75; PULSE 64; RESP 18; TEMP 36.4; O2SAT 100
[2021-05-04] MEDS: 0.9% Normal Saline 1,000 ML 125 ML IV ×2 (14:34→21:37)
[2021-05-04] MEDS: Clopidogrel Bisulfate 75 MG Tablet PO (14:42)
[2021-05-04] MEDS: Carbidopa/Levodopa 25/100 Tablet PO ×2 (14:42→21:34)
--- NOTE | 2021-05-04 15:26 | WOUNDNOTE ---
wound photo: left lower leg
--- NOTE | 2021-05-04 15:27 | WOUNDNOTE ---
wound photo:left lower leg (medial view)
--- NOTE | 2021-05-04 15:28 | WOUNDNOTE ---
wound photo: right lower leg (medial view)
--- NOTE | 2021-05-04 15:29 | WOUNDNOTE ---
wound photo: right lower leg (lateral view)
[2021-05-04 16:45] VITALS: BP 133/69; PULSE 72; RESP 18; TEMP 36.2; O2SAT 99
[2021-05-04] MEDS: Juven (unflavored) Packet 1 PACKET PO (17:24)
[2021-05-04 17:41] LABS: M R Staph aureus DNA By PCR Negative (Negative); Probe Check PASS; Specimen Processing Control PASS; Staph aureus DNA By PCR NEGATIVE (Negative)
--- NOTE | 2021-05-04 21:08 | PCS.PANDOC ---
PANDEMIC DOCUMENTATION INITIATED: Date: 04/12/2021 Time: 190
[2021-05-04 21:31] VITALS: BP 124/66; PULSE 76; RESP 17; TEMP 36.9; O2SAT 99
[2021-05-04] MEDS: Carvedilol 6.25 MG Tablet PO (21:34)
[2021-05-04] MEDS: Atorvastatin Calcium 40 MG Tablet PO (21:35)
[2021-05-04] MEDS: Furosemide 20 MG Tablet PO (21:35)
[2021-05-05 02:56] VITALS: BP 126/71; PULSE 72; RESP 18; TEMP 37.1; O2SAT 99
[2021-05-05] MEDS: Carbidopa/Levodopa 25/100 Tablet PO ×3 (05:42→21:08)
[2021-05-05 06:00] VITALS: BP 136/66; PULSE 67; RESP 16; TEMP 36.9; O2SAT 98
[2021-05-05 06:19] LABS: Absolute Lymphocyte Count 1.48 X10^3/uL (0.83-4.51); Absolute Neutrophil Count 6.3 X10^3/uL (2.0-7.7); Basophil# 0.02 X10^3/uL; Basophil% 0.2 % (0-1); Eosinophil# 0.16 X10^3/uL; Eosinophils% 1.8 % (0-5); Hematocrit 31.4 % (40-54); Hemoglobin 10.1 g/dL (13.0-16.5); Lymphocyte # 1.48 X10^3/ul (0.83-4.51); Lymphocyte % 16.8 % (19-41); Mean Corp Hgb Conc 32.2 g/dL (32-36); Mean Corpuscular Hgb 26.9 pg (27.0-32.0); Mean Corpuscular Volume 83.7 fL (80-94); Mean Platelet Vol. 9.3 fl (6.2-12.0); Monocyte# 0.88 X10^3/uL; NRBC Flagged by Analyzer 0 % (0-5); Neutrophil # 6.25 X10^3/uL (2.7-7.7); Neutrophil % 70.7 % (47-70); Platelet Count 245 K/mm3 (150-450); RBC Distribution Width CV 14.4 % (11.6-14.6); RBC Distribution Width SD 44.1 fl (35.1-43.9); Red Blood Count 3.75 M/mm3 (4.6-6.2); White Blood Count 8.8 K/mm3 (4.4-11.0)
[2021-05-05 06:43] LABS: Anion Gap 6 (5-15); BUN 19 mg/dL (7-18); BUN/Creat Ratio 23.3 RATIO (10-20); Calcium,Total 8.4 mg/dL (8.5-10.1); Chloride 104 mmol/L (98-107); Creatinine, Serum 0.82 mg/dL (0.70-1.30); EST Glomerular Filtration Rate 97 mL/min (>60); Est Glom Filt Rate - Afr Amer 117 mL/min (>60); Estimated Creatinine Clearance 96.81 ml/min; Glucose 88 mg/dL (74-106); Potassium 3.9 mmol/L (3.5-5.1); Sodium Level 136 mmol/L (136-145)
--- NOTE | 2021-05-05 07:54 | PCM.CONS.GEN ---
Assessment & Plan Assessment/Plan (1) Chronic ulcer of right foot with fat layer exposed: (2) Lymphedema: (3) Venous insufficiency: (4) Physical debility: (5) Bilateral edema of lower extremity: PLAN: Patient seen and evaluated xr were reviewed. Dorsal foot soft tissue swelling noted. Radiologist noted possible small soft tissue gas on left foot. This appears to be from the skin folds consistent with patient's lymphedema. There is no clinical signs of any gas infection or even any wounds to left foot. There are chronic skin changes consistent with lymphedema noted to patient's bilateral lower extremity wound noted to right medial ankle where 5 maggots were removed today. After verbal consent was obtained wound was sharply debrided without incident. No more maggots were seen. Hydrogen peroxide was placed on the wound to try and kill or draw out any remaining maggots. There is no signs of infection. Wound is healthy in appearance. To continue with dressing changes of adaptic, DSD, with compression from toes to knee daily. Discussed importance of compression and elevation with patient. Discussed how this plays a role in his wounds. Also reviewed proper nutrition. Patient noted to have low albumin. Recommend odette supplementation. No podiatry surgical plans Weight bearing and activity as tolerated. Elevate legs when seated or in bed To continue care with Dr Franz at [facility] as scheduled at [place] for continued wound management. All questions answered. Thank you for the consult. Please contact if any questions or concerns. Ok to [place] from podiatry perspective. Verónica Green DPM [facility] [phone] This note was generated with [employer] dictation software. It may contain incorrect words, spelling, and punctuation that were not noted in checking the note before signing. HPI Consult Data Date of Consult: 05/05/21 HPI Narrative Reason for Consultation: foot wound HPI Narrative: RADHA ZAMBRANO, is a 81 M who presents for right foot wound. He is seeing Dr Franz for this at [facility]. He relates he sees Dr Franz about twice a month. He has [facility] come to help him with dressing changes otherwise as he can't reach his feet. C has gone from 3 tiems a week to once a week. Patient relates he had quite a bit of bloody drainage from the right leg. There is no wound there now. Patient was sent to ED from home by [facility] for noticing maggots in his wound. Patient is noted to live alone. He denies n/f/v/c/cp/SOB. [facility] Medical History (Updated 05/05/21 @ 09:[address] Verónica Green, [facility]) Abnormality of gait Atherosclerotic heart disease of [place] coronary artery without angina pectoris Bilateral hearing loss Blind right eye BPH (benign prostatic hyperplasia) History of non-ST elevation myocardial infarction (NSTEMI) (11/12/18) Hyperlipidemia Osteoarthritis of lumbar spine Physical debility PSA elevation Renal cyst Venous insufficiency Home Medications aspirin 81 mg PO DAILY@0800 tab 11/13/18 [Rx Last Taken 02/26/20] atorvastatin 40 mg tablet 40 mg PO QHS #30 tab 02/21/20 [Rx Last Taken 02/26/20] clopidogrel 75 mg tablet 75 mg PO .COMPLEX #90 tab 02/21/20 [Rx Last Taken 02/26/20] carbidopa-levodopa 1 ea PO TID 02/23/20 [History Last Taken 02/26/20] carvedilol 6.25 mg tablet 6.25 mg PO BID #180 tab 06/02/20 [Rx Last Taken Unknown] furosemide 40 mg PO DAILY 05/04/21 [History Last Taken Unknown] polyethylene glycol 3350 17 g PO DAILY PRN 05/04/21 [History Last Taken Unknown] potassium chloride 20 meq PO DAILY 05/04/21 [History Last Taken Unknown] Allergy/AdvReac Type Severity Reaction Status Date / Time raspberry Allergy Other Verified 05/04/21 09:31 strawberry Allergy Other Verified 05/04/21 09:31 lemon-[place] flavor Allergy Other Uncoded 05/04/21 09:31 mushroom Allergy Other Uncoded 05/04/21 09:31 Surgical History Stented coronary artery (11/12/18) Social History Smoking Status: Former smoker ROS Constitutional Constitutional: Denies chills or fever(s) Cardiovascular Cardiovascular: Denies chest pain Respiratory/Chest Respiratory/Chest: Denies cough Gastrointestinal Gastrointestinal: Denies nausea or vomiting Musculoskeletal Musculoskeletal: Denies muscle cramps Integumentary Integumentary: Reports wounds Neurologic Neurologic: Denies numbness Physical Exam Const alert and no apparent distress General Appearance: cooperative and comfortable HEENT Head and Scalp: atraumatic Lymph Lymphatic: lymphedema Resp normal respiratory effort Effort and Inspection: able to speak in complete sentences Extremity normal capillary refill and no calf tenderness General Extremity: edema bilateral lower extremity, no tenderness to palpation of joints or extremities and other findings Other Details: Capillary refill time less than 3 seconds noted to digits ; Negative for clubbing or cyanosis Peripheral Pulses: Yes posterior tibial pulses present bilateral diminished and dorsalis pedis pulses present bilateral diminished Skin General Skin Exam: atrophy and dry skin; Negative for ecchymosis, erythema, eschar, pallor or dermatitis Rashes: no rashes Wounds: wounds noted Wound Narrative: ulcers noted to right medial heel. 5 maggots were removed today. To fascia layer. No malodor, erythema, purulence, probing to bone, streaking, fluctuation, crepitus, or other signs of infection. Skin is atrophic and hairless. Granular base Chronic hyperpigmentation noted to lower legs and feet. Lymphedema chronic skin changes noted. No wound to left lower extremity. Swelling improved from admission. Neuro Gait (Neuro): antalgic Sensory Exam: extremities light-touch: decreased Motor Exam: general weakness Psych Appearance: appropriate Attitude: calm Lab / Micro Data Result Diagrams: 05/05/21 05:20 05/05/21 05:20 Labs: Laboratory Results - last 24 hr 05/04/21 10:15: WBC 8.7, RBC 4.04 L, Hgb 11.0 L, Hct 33.8 L, MCV 83.7, MCH 27.2, MCHC 32.5, RDW Std Deviation 44.6 H, RDW Coeff of Donnie 14.6, Plt Count 246, MPV 9.3, Immature Gran % (Auto) 0.200, Neut % (Auto) 69.8, Lymph % (Auto) 17.0 L, Centre % (Auto) 10.2 H, Eos % (Auto) 2.5, Baso % (Auto) 0.3, Absolute Neuts (auto) 6.1, Absolute Lymphs (auto) 1.48, Nucleated RBC % 0, ESR 72 H 05/04/21 10:15: Sodium 137, Potassium 3.9, Chloride 104, Carbon Dioxide 26.0, Anion Gap 7, BUN 16, Creatinine 1.01, Estim Creat Clear Calc 78.60, Est GFR (MDRD) Af Amer 92, Est GFR (MDRD) Non-Af 76, BUN/Creatinine Ratio 15.8, Glucose 103, Calcium 8.8, Total Bilirubin 0.40, AST 21, ALT 15 L, Alkaline Phosphatase 68, C-React Prot Ext Range 22.20 H, Total Protein 7.7, Albumin 3.0 L, Globulin 4.7 H, Albumin/Globulin Ratio 0.6 L 05/04/21 15:15: S.aureus Protein A PCR NEGATIVE, MRSA (PCR) Negative 05/05/21 05:20: WBC 8.8, RBC 3.75 L, Hgb 10.1 L, Hct 31.4 L, MCV 83.7, MCH 26.9 L, MCHC 32.2, RDW Std Deviation 44.1 H, RDW Coeff of Donnie 14.4, Plt Count 245, MPV 9.3, Immature Gran % (Auto) 0.500, Neut % (Auto) 70.7 H, Lymph % (Auto) 16.8 L, Centre % (Auto) 10.0, Eos % (Auto) 1.8, Baso % (Auto) 0.2, Absolute Neuts (auto) 6.3, Absolute Lymphs (auto) 1.48, Nucleated RBC % 0 05/05/21 05:20: Sodium 136, Potassium 3.9, Chloride 104, Carbon Dioxide 26.0, Anion Gap 6, BUN 19 H, Creatinine 0.82, Estim Creat Clear Calc 96.81, Est GFR (MDRD) Af Amer 117, Est GFR (MDRD) Non-Af 97, BUN/Creatinine Ratio 23.3 H, Glucose 88, Calcium 8.4 L Micro: Microbiology 05/04/21 09:55 Nasal Secretion SARS-CoV-2 Antigen (Rapid) - Final Radiology Impression Foot X-Ray 05/04/21 09:40 IMPRESSION: Diffuse soft tissue swelling worse overlying the dorsal aspect of the foot. Findings suggestive of an ulcerated lesion overlying the posterior calcaneus Electronically Signed: Fernando Grullon MD at 11:12 EDT , Service support , Foot X-Ray 05/04/21 10:50 IMPRESSION: Diffuse soft tissue swelling especially overlying the dorsal aspect of the foot with the small amount of gas within the soft tissues. Electronically Signed: Fernando Grullon MD at 11:11 EDT , Service support ,
[2021-05-05 09:11] VITALS: BP 117/61; PULSE 57; RESP 16; TEMP 36.8; O2SAT 98
--- NOTE | 2021-05-05 10:18 | CASEMGMT ---
ALIA DRAPER Assessment: Face to Face with pt for initial transition planning/care coordination assessment. ALIA DRAPER introduced self and role at [facility], pt voices understanding and consents to assessment. Pt is A/O x4 and answers all questions appropriately at this time. Pt sitting up in bed in no distress. Care providers, pharmacy, and demographics verified/updated. Admitting Dx: cellulitis PCP:Nathanael Specialists: Testradanilo, pod; Reji, cardio and other specialists at [facility]- Pt states they are on his chart. Preferred Pharmacy: [facility] Insurance: My Care [facility] Community Plan Prescription Benefit: yes LW/HPOA: Pt denies. LNOK: Rodrigue Boles, brother; Man Boles, brother Living Arrangements: Pt lives alone in a cottage on ground level with no steps to enter. Pt states he usually is able to bathe and dress himself but he can not with the wraps on his legs. He states when the nurses were coming 3x/wk he would shower prior to their arrival but now they have decreased to 1x/wk. Pt denies concerns at home. Transportation: Pt friend Denilson Chavez transports him to his medical appts. Pt denies concerns with transportation. DME/HHC/SNF: Pt has a medic alert, grab bars in the bathroom, walker, walking stick and cane. Pt states he currently has [facility] for SN but has not been offered therapy. Pt has been in Rehab at [facility] and [facility]. Pt denies any alcohol, cigarette, street or illegal drug use. Pt states his plan after hospitalization is to return home and follow his doctor's orders and instruction. Asked patient if he would be agreeable to have therapy short term and have his wound care completed in a SNF. Pt states he would like to hear this recommendation from Dr. Huffman. Made him aware that he was scheduling through May for patients per HH. Pt states he would like to call himself as he feels that he has been a patient long enough that he would get him in for an appt. Pt states that his wound care frequency is determined by how often the HH nurse can come as he has no one who can do his wound care. Made him aware that it may be beneficial for him to have a nurse daily who could do this such as at a SNF. Pt states he does not want to go to [facility] as he sees from his apt patient's being removed through the back door to the home, they have all old people and it is depressing. Pt is agreeable in speaking with the social media marketing analyst to see his options in his insurance network. Notified Gurpreet FRANCOIS. CM to follow. Advised pt to ask CM if any further question/concerns/needs arise, voices understanding. Pt thanks this CM for the conversation. Pt Goal: TBD Plan: TBD 0929- TC to Soha at [facility] who states SN is seeing pt 2x/wk. Transferred to [place] nurse who states and is trying to convince pt he needs placement. States pt lives alone in an apt and unable to take care of his own needs. States he has no support. States pt wants to tell him personally that pt needs placement. Pt does not have an appt with Dr. Huffman as his schedule is full through May.
[2021-05-05] MEDS: Enoxaparin 40 MG/0.4 ML Syringe SC (10:41)
[2021-05-05] MEDS: Juven (unflavored) Packet 1 PACKET PO (10:41)
[2021-05-05] MEDS: Aspirin E.C. 81 MG Tablet PO (10:42)
[2021-05-05] MEDS: Lisinopril 5 MG Tablet PO (10:42)
[2021-05-05] MEDS: Clopidogrel Bisulfate 75 MG Tablet PO (10:42)
[2021-05-05] MEDS: Furosemide 20 MG Tablet PO ×2 (10:42→21:07)
[2021-05-05] MEDS: Potassium Chloride Oral Tablet 20 MEQ PO (10:42)
[2021-05-05] MEDS: Polyethylene Glycol 3350 17 GM PACKET PO (10:46)
--- NOTE | 2021-05-05 11:46 | CASEMGMT ---
Addendum entered by Fany Dejesus 05/05/21 13:43: SW did place a call to [facility], they do accept pt's insurance. Pt updated. Original Note: Social Work Note SW received referral that pt would like a list of SNF that accept pt's insurance. SW in to speak with pt. SW introduced self and role at [facility]. Pt is alert and orientated. SW spoke with pt regarding discharge plans. Patient was provided a list of SNF providers including quality and resource use data and consistent with the patient?s preferred geographic region, medical needs, and insurance network. Pt asked about [facility] as he has been there before, about 2 years ago. SW informed pt that [facility] didn't show up on [facility] website but informed pt that this worker can call and check with [facility] regarding insurance. Pt states she would like this worker to call [facility] and determine if they accept pt's insurance. SW asked pt if [facility] accepts pt's insurance if this worker can send referral to [facility] and pt denied. Pt didn't give this worker permission to send referral to [facility] or any SNF. Pt states he will need to speak with his family before making a decision and states he will let this worker know in 2 days. SW informed pt that this worker can come back tomorrow to discuss discharge plans but a decision needs to be made regarding discharge sooner than later. Pt again states he would like to speak to his family first before making a decision, request this worker come back tomorrow. SW to follow up with pt tomorrow to confirm discharge plans. Plan: TBD Fany Dejesus COOK JELLY, IVF EMBRYOLOGIST
--- NOTE | 2021-05-05 12:02 | PN.HOSP_ITS ---
Subjective Subjective Patient seen and examined. He had no complaints and had an uneventful night. Review of systems was otherwise negative. He has remained hemodynamically stable Objective Data Objective Data Vital Signs: Vital Signs Temp Pulse Resp BP Pulse Ox 98.2 F 57 L 16 117/61 98 05/05/21 09:11 05/05/21 09:11 05/05/21 09:11 05/05/21 09:11 05/05/21 09:11 Oxygen Delivery Method Room Air Weight: 253 lb 4.978 oz Body Mass Index (BMI) 28.5 Intake & Output: Intake and Output for Last 24 Hours 05/03/21 05/04/21 05/05/21 23:59 23:59 23:59 Intake Total 1283.33 / 1433.33 1622.67 / 1622.67 Output Total 3275 / 4175 1575 / 1575 Balance -1991.67 / -2741.67 47.67 / 47.67 Lab / Micro Data Result Diagrams: 05/05/21 05:20 05/05/21 05:20 Labs: Laboratory Results - last 24 hr 05/04/21 15:15: S.aureus Protein A PCR NEGATIVE, MRSA (PCR) Negative 05/05/21 05:20: WBC 8.8, RBC 3.75 L, Hgb 10.1 L, Hct 31.4 L, MCV 83.7, MCH 26.9 L, MCHC 32.2, RDW Std Deviation 44.1 H, RDW Coeff of Donnie 14.4, Plt Count 245, MPV 9.3, Immature Gran % (Auto) 0.500, Neut % (Auto) 70.7 H, Lymph % (Auto) 16.8 L, [place] % (Auto) 10.0, Eos % (Auto) 1.8, Baso % (Auto) 0.2, Absolute Neuts (au to) 6.3, Absolute Lymphs (auto) 1.48, Nucleated RBC % 0 05/05/21 05:20: Sodium 136, Potassium 3.9, Chloride 104, Carbon Dioxide 26.0, Anion Gap 6, BUN 19 H, Creatinine 0.82, Estim Creat Clear Calc 96.81, Est GFR (MDRD) Af Amer 117, Est GFR (MDRD) Non-Af 97, BUN/Creatinine Ratio 23.3 H, Glucose 88, Calcium 8.4 L Micro: Microbiology 05/04/21 15:15 Wound - Right Foot Gram Stain - Final 05/04/21 15:15 Wound - Right Foot Wound Culture - Preliminary Gram negative lenny Gram positive organism 05/04/21 09:55 Nasal Secretion SARS-CoV-2 Antigen (Rapid) - Final Physical Exam Const alert, oriented x3 and no apparent distress General Appearance: cooperative Exam Limitations: no limitations HEENT normocephalic, head/scalp atraumatic, hearing grossly normal bilaterally and moist oral mucous membranes Head and Scalp: normocephalic Eyes PERRL, EOMs intact bilaterally and conjunctivae normal Neck no lymphadenopathy, supple and no JVD Resp normal respiratory effort, no retractions, no use of accessory muscles and clear to auscultation bilaterally Cardio regular rate, regular rhythm, S1 normal heart sound, S2 normal heart sound and no murmurs GI normal to inspection, nondistended, normoactive bowel sounds, soft to palpation, non-tender and non-distended Extremity Extremity Narrative: bilateral LE edema, with superficial blisters and ulcerations all over LEs, with ulcer in the heels of his LEs. BOth LEs wrapped in HERNANDO bandage Peripheral Pulses: Yes pulses 2+ throughout Neuro oriented x3 and CN's II-XII intact bilaterally Sensorium / Orientation: awake and alert Psych affect normal Assessment & Plan Assessment/Plan (1) Fall: (2) Bilateral cellulitis of lower leg: PLAN: #Cellulitis and ulcers of the LEs * on IV clindamycin * podiatry on board; didnt think the gas in the soft tissue shown on the foot xrays was significant * wound and blood cultures pending. * wound care also on board * Consult wound care. * Get wound cultures and blood cultures. * #Bilateral lower extremity lymphedema * As above. * On Lasix 40 mg daily * #CAD: * Had non-STEMI in 2018 with balloon dilatation of the ostium of diagonal artery and PCI with stents to the proximal LAD and mid LAD. * On aspirin and Plavix as well as carvedilol and high intensity statin #History of Alzheimer's dementia: On levodopa carbidopa. DVT prophylaxis: Lovenox CODE STATUS: Full code Charges/Coding Visit Charges Inpatient E&M: 44022 Subs Hosp L3
--- NOTE | 2021-05-05 14:26 | CHAPLAIN ---
Type of Pastoral Visit _x__ Initial Visit ___ Follow-up Visit ___ On-call Visit ___ General Patient Visit ___ Spiritual Assessment ___ Family Conference ___ Bereavement ___ Rapid Response ___ Code Blue ___ Other (describe below) Pastoral Care Referral From _x__ Patient ___ Family ___ Nurse ___ Physician ___ Slot Machine Repairer ___ Sociology Research Assistant ___ Other (describe below) Sacrament/Intervention _x__ Active listening ___ Anointing ___ Restorationism ___ Bereavement ___ Communion _x__ Rona exploration ___ _x__ Life review _x__ Prayer ___ Reconciliation ___ Sacrament of Sick _x__ Supportive presence ___ Wedding ___ Other (describe below) Pastoral Comments patient is interested in spiritual care 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
[2021-05-05 14:56] VITALS: BP 115/63; PULSE 66; RESP 16; TEMP 37; O2SAT 100
--- NOTE | 2021-05-05 17:18 | NURSING ---
Kathryn bowling'regino. Primofit male external catheter placed at this time.
[2021-05-05 21:01] VITALS: BP 111/65; PULSE 67; RESP 16; TEMP 36.9; O2SAT 98
[2021-05-05] MEDS: Carvedilol 6.25 MG Tablet PO (21:07)
[2021-05-05] MEDS: Atorvastatin Calcium 40 MG Tablet PO (21:07)
[2021-05-06 02:41] VITALS: BP 105/55; PULSE 61; RESP 18; TEMP 37.6; O2SAT 98
[2021-05-06] MEDS: Carbidopa/Levodopa 25/100 Tablet PO ×3 (05:15→21:00)
[2021-05-06 05:36] LABS: Absolute Lymphocyte Count 1.59 X10^3/uL (0.83-4.51); Absolute Neutrophil Count 4.5 X10^3/uL (2.0-7.7); Basophil# 0.02 X10^3/uL; Basophil% 0.3 % (0-1); Eosinophil# 0.22 X10^3/uL; Eosinophils% 3.1 % (0-5); Hematocrit 30.2 % (40-54); Hemoglobin 9.6 g/dL (13.0-16.5); Lymphocyte # 1.59 X10^3/ul (0.83-4.51); Lymphocyte % 22.2 % (19-41); Mean Corp Hgb Conc 31.8 g/dL (32-36); Mean Corpuscular Hgb 26.7 pg (27.0-32.0); Mean Corpuscular Volume 83.9 fL (80-94); Mean Platelet Vol. 9.1 fl (6.2-12.0); Monocyte# 0.82 X10^3/uL; Monocyte% 11.5 % (0-10); NRBC Flagged by Analyzer 0 % (0-5); Neutrophil # 4.49 X10^3/uL (2.7-7.7); Neutrophil % 62.6 % (47-70); Platelet Count 221 K/mm3 (150-450); RBC Distribution Width CV 14.4 % (11.6-14.6); RBC Distribution Width SD 44.6 fl (35.1-43.9); White Blood Count 7.2 K/mm3 (4.4-11.0)
[2021-05-06 06:12] LABS: Anion Gap 4 (5-15); BUN 17 mg/dL (7-18); Calcium,Total 8.2 mg/dL (8.5-10.1); Chloride 105 mmol/L (98-107); Creatinine, Serum 0.85 mg/dL (0.70-1.30); EST Glomerular Filtration Rate 93 mL/min (>60); Est Glom Filt Rate - Afr Amer 112 mL/min (>60); Estimated Creatinine Clearance 93.39 ml/min; Glucose 84 mg/dL (74-106); Potassium 3.6 mmol/L (3.5-5.1); Sodium Level 138 mmol/L (136-145)
--- NOTE | 2021-05-06 07:30 | PCM.PROGNOTE ---
Subjective Subjective Patient seen and examined resting comfortably. Patient denies any new pedal complaints. Patient denies any nausea, fever, chills, chest pain, shortness of breath, cough, streaking, purulence, vomiting. Patient relates a sense switching from the catheter he has not had as many urination leaking issues Objective Data Objective Data Vital Signs: Vital Signs Temp Pulse Resp BP Pulse Ox 99.7 F H 61 18 105/55 L 98 05/06/21 02:41 05/06/21 02:41 05/06/21 02:41 05/06/21 02:41 05/06/21 02:41 Oxygen Delivery Method Room Air Weight: 114.9 kg Body Mass Index (BMI) 28.5 Intake & Output: Intake and Output for Last 24 Hours 05/04/21 05/05/21 05/06/21 23:59 23:59 23:59 Intake Total 1283.33 / 1433.33 2294.67 / 2294.67 106 / 106 Output Total 3275 / 4175 3025 / 3025 600 / 600 Balance -1991.67 / -2741.67 -730.33 / -730.33 -494 / -494 Lab / Micro Data Result Diagrams: 05/06/21 05:06 05/06/21 05:06 Labs: Laboratory Results - last 24 hr 05/06/21 05:06: WBC 7.2, RBC 3.60 L, Hgb 9.6 L, Hct 30.2 L, MCV 83.9, MCH 26.7 L, MCHC 31.8 L, RDW Std Deviation 44.6 H, RDW Coeff of Donnie 14.4, Plt Count 221, MPV 9.1, Immature Gran % (Auto) 0.300, Neut % (Auto) 62.6, Lymph % (Auto) 22.2, [place] % (Auto) 11.5 H, Eos % (Auto) 3.1, Baso % (Auto) 0.3, Absolute Neuts (auto) 4.5, Absolute Lymphs (auto) 1.59, Nucleated RBC % 0 05/06/21 05:06: Sodium 138, Potassium 3.6, Chloride 105, Carbon Dioxide 29.0, Anion Gap 4 L, BUN 17, Creatinine 0.85, Estim Creat Clear Calc 93.39, Est GFR (MDRD) Af Amer 112, Est GFR (MDRD) Non-Af 93, BUN/Creatinine Ratio 20.0, Glucose 84, Calcium 8.2 L Micro: Microbiology 05/04/21 15:15 Wound - Right Foot Gram Stain - Final 05/04/21 15:15 Wound - Right Foot Wound Culture - Preliminary Gram negative lenny Gram positive organism 05/04/21 09:55 Nasal Secretion SARS-CoV-2 Antigen (Rapid) - Final Physical Exam Const alert and no apparent distress General Appearance: cooperative and comfortable Lymph Lymphatic: lymphedema Resp normal respiratory effort Effort and Inspection: able to speak in complete sentences Extremity normal capillary refill and no calf tenderness General Extremity: edema bilateral lower extremity, no tenderness to palpation of joints or extremities and other findings Other Details: Capillary refill time less than 3 seconds noted to digits ; Negative for clubbing or cyanosis Skin General Skin Exam: atrophy and dry skin; Negative for ecchymosis, erythema, eschar, pallor or dermatitis Rashes: no rashes Wounds: wounds noted Wound Narrative: ulcers noted to right medial heel. There is also some superficial skin tears noted to bilateral lower legs. No maggots were found today. No malodor, erythema, purulence, probing to bone, streaking, fluctuation, crepitus, or other signs of infection. Skin is atrophic and hairless. Granular base Chronic hyperpigmentation noted to lower legs and feet. Lymphedema chronic skin changes noted. Swelling improved from yesterday's exam DP bilateral 1 out of 4 and PT on left 1 out of 4. Right PT nonpalpable. Neuro Gait (Neuro): antalgic Sensory Exam: extremities light-touch: decreased Motor Exam: general weakness Psych Appearance: appropriate Attitude: calm Assessment & Plan Assessment/Plan (1) Chronic ulcer of right foot with fat layer exposed: (2) Lymphedema: (3) Venous insufficiency: (4) Physical debility: (5) Bilateral edema of lower extremity: PLAN: Patient seen and evaluated Wound improvement noted. There is no maggots seen today. There is significant improvement in swelling noted to bilateral lower extremities. There is some skin tears noted to bilateral legs this superficial in nature without any signs of infection. There are chronic skin changes consistent with lymphedema noted to patient's bilateral lower extremity wound noted to right medial ankle. There is no signs of infection. Wound is healthy in appearance. To continue with dressing changes of adaptic DSD, with compression from toes to knee daily. Discussed importance of compression and elevation with patient. Discussed how this plays a role in his wounds. Also reviewed proper nutrition. Patient noted to have low albumin. Recommend odette supplementation. Weight bearing and activity as tolerated. Elevate legs when seated or in bed To continue care with Dr Franz at [facility] as scheduled at [place] for continued wound management. All questions answered. Please contact if any questions or concerns. Ok to [place] from podiatry perspective. Noted plan for placement as patient currently lives alone. Verónica Green DPM [facility] [phone] This note was generated with [employer] dictation software. It may contain incorrect words, spelling, and punctuation that were not noted in checking the note before signing.
[2021-05-06 08:30] VITALS: BP 114/62; PULSE 63; RESP 12; TEMP 36.9; O2SAT 100
[2021-05-06 09:14] VITALS: O2SAT 94
[2021-05-06 10:01] VITALS: O2SAT 94
[2021-05-06] MEDS: Enoxaparin 40 MG/0.4 ML Syringe SC (10:39)
[2021-05-06] MEDS: Potassium Chloride Oral Tablet 20 MEQ PO (10:40)
[2021-05-06] MEDS: Juven (unflavored) Packet 1 PACKET PO ×2 (10:40→17:42)
[2021-05-06] MEDS: Clopidogrel Bisulfate 75 MG Tablet PO (10:40)
[2021-05-06] MEDS: Polyethylene Glycol 3350 17 GM PACKET PO (10:40)
[2021-05-06] MEDS: Lisinopril 5 MG Tablet PO (10:41)
[2021-05-06] MEDS: Aspirin E.C. 81 MG Tablet PO (10:41)
[2021-05-06] MEDS: Furosemide 20 MG Tablet PO ×2 (10:41→21:00)
[2021-05-06] MEDS: Carvedilol 6.25 MG Tablet PO ×2 (10:41→21:00)
--- NOTE | 2021-05-06 11:34 | CASEMGMT ---
Social Work Note SW updated that pt is requesting [facility] at discharge. SW in to speak with pt. Pt confirm he is agreeable to [facility] at discharge. SW explained that this worker will send referral. Pt states understanding. SW placed a call to Zena at [facility] and provided referral. SW faxed referral. Plan: SNF pending acceptance and pre-cert Fany Dejesus DIRECTOR OF EVENTS, POLE TESTER
--- NOTE | 2021-05-06 12:54 | CASEMGMT ---
Social Work Note SW placed a call to Freddy with [facility] due to concern's of pt being able to care for self (maggots in wounds). Freddy states pt currently has an open case with [facility]. Freddy asked to be updated where pt discharges to. Fany Dejesus KILN CAR UNLOADER, ENVIRONMENTAL RESEARCH PROJECT MANAGER
--- NOTE | 2021-05-06 14:21 | CASEMGMT ---
Addendum entered by Fany Dejesus 05/06/21 15:16: ALESSANDRO placed another call to [place] at [facility]. [place] states they should be able to accept pt, states the soonest they can accept pt is tomorrow. SW updated physician. SW updated pt. Plan: WVM tomorrow Original Note: Social Work Note SW placed a call to [place] at [facility] and left message regarding referral. ALESSANDRO also asked if [facility] is able to accept pt if pt can admit today as pt's insurance is waiving pre-certs. SW waiting for call back. Plan: [facility] pending acceptance and pre-cert Fany Dejesus RIDER TICKET WORKER, CRAFT ARTIST
--- NOTE | 2021-05-06 14:52 | PN.HOSP_ITS ---
Subjective Subjective Patient seen and examined. He has no complaints and feels well. He was working with therapy at time of discharge. Review of systems was otherwise negative. He has remained hemodynamically stable. Objective Data Objective Data Vital Signs: Vital Signs Temp Pulse Resp BP Pulse Ox 98.5 F 63 12 114/62 94 05/06/21 08:30 05/06/21 08:30 05/06/21 08:30 05/06/21 08:30 05/06/21 10:01 Oxygen Delivery Method Room Air Weight: 253 lb 4.978 oz Body Mass Index (BMI) 28.5 Intake & Output: Intake and Output for Last 24 Hours 05/04/21 05/05/21 05/06/21 23:59 23:59 23:59 Intake Total 1283.33 / 1433.33 2294.67 / 2294.67 106 / 106 Output Total 3275 / 4175 3025 / 3025 600 / 600 Balance -1991.67 / -2741.67 -730.33 / -730.33 -494 / -494 Lab / Micro Data Result Diagrams: 05/06/21 05:06 05/06/21 05:06 Labs: Laboratory Results - last 24 hr 05/06/21 05:06: WBC 7.2, RBC 3.60 L, Hgb 9.6 L, Hct 30.2 L, MCV 83.9, MCH 26.7 L , MCHC 31.8 L, RDW Std Deviation 44.6 H, RDW Coeff of Donnie 14.4, Plt Count 221, MPV 9.1, Immature Gran % (Auto) 0.300, Neut % (Auto) 62.6, Lymph % (Auto) 22.2, [place] % (Auto) 11.5 H, Eos % (Auto) 3.1, Baso % (Auto) 0.3, Absolute Neuts (auto) 4.5, Absolute Lymphs (auto) 1.59, Nucleated RBC % 0 05/06/21 05:06: Sodium 138, Potassium 3.6, Chloride 105, Carbon Dioxide 29.0, Anion Gap 4 L, BUN 17, Creatinine 0.85, Estim Creat Clear Calc 93.39, Est GFR (MDRD) Af Amer 112, Est GFR (MDRD) Non-Af 93, BUN/Creatinine Ratio 20.0, Glucose 84, Calcium 8.2 L Micro: Microbiology 05/04/21 15:15 Wound - Right Foot Gram Stain - Final 05/04/21 15:15 Wound - Right Foot Wound Culture - Preliminary Stenotrophomonas maltophilia Gram positive organism 05/04/21 10:20 Blood Culture (Wb) - Anticubital Right Blood Culture - Preliminary No growth in 48 hours. 05/04/21 10:15 Blood Culture (Wb) - Arm Right Blood Culture - Preliminary No growth in 48 hours. 05/04/21 09:55 Nasal Secretion SARS-CoV-2 Antigen (Rapid) - Final Physical Exam Const alert, oriented x3 and no apparent distress General Appearance: cooperative Exam Limitations: no limitations HEENT normocephalic, head/scalp atraumatic, hearing grossly normal bilaterally and moist oral mucous membranes Head and Scalp: normocephalic Eyes PERRL, EOMs intact bilaterally and conjunctivae normal Neck no lymphadenopathy, supple and no JVD Resp normal respiratory effort, no retractions, no use of accessory muscles and clear to auscultation bilaterally Cardio regular rate, regular rhythm, S1 normal heart sound, S2 normal heart sound and no murmurs GI normal to inspection, nondistended, normoactive bowel sounds, soft to palpation, non-tender and non-distended Extremity Extremity Narrative: Both LEs wrapped in HERNANDO bandage Peripheral Pulses: Yes pulses 2+ throughout Skin no rashes or lesions noted Neuro oriented x3 and CN's II-XII intact bilaterally Sensorium / Orientation: awake and alert Psych affect normal Assessment & Plan Assessment/Plan (1) Fall: (2) Bilateral cellulitis of lower leg: PLAN: #Cellulitis and ulcers of the LEs * on IV clindamycin * podiatry on board; didnt think the gas in the soft tissue shown on the foot xrays was significant * wound culutres growing Stenotrophomonas maltophilia and a gram positive organism * will start on PO bactrim to cover Stenotrophomonas * wound care and podiatry on board * * #Bilateral lower extremity lymphedema * As above. * On Lasix 40 mg daily * #CAD: * Had non-STEMI in 2018 with balloon dilatation of the ostium of diagonal artery and PCI with stents to the proximal LAD and mid LAD. * On aspirin and Plavix as well as carvedilol and high intensity statin #History of Alzheimer's dementia: On levodopa carbidopa. DVT prophylaxis: Lovenox CODE STATUS: Full code Disposition: * patient is amenable to going to a rehab facility for short term rehab as he lives alone. * Prefers to go to [facility]. * Case management on board Charges/Coding Visit Charges Inpatient E&M: 99721 Subs Hosp L2
[2021-05-06 15:30] VITALS: BP 107/61; PULSE 70; RESP 16; TEMP 36.6; O2SAT 99
[2021-05-06] MEDS: Atorvastatin Calcium 40 MG Tablet PO (21:00)
[2021-05-06 21:05] VITALS: BP 103/53; PULSE 64; RESP 18; TEMP 36.9; O2SAT 98
[2021-05-07] VITALS (7 sets, daily range): BP systolic 92–125; BP diastolic 50–67; PULSE 58–67; RESP 14–18; TEMP 36.4–37.1; O2SAT 95–100
[2021-05-07] MEDS: Carbidopa/Levodopa 25/100 Tablet PO ×2 (05:48→14:14)
[2021-05-07 05:49] LABS: Absolute Lymphocyte Count 1.67 X10^3/uL (0.83-4.51); Absolute Neutrophil Count 3.6 X10^3/uL (2.0-7.7); Basophil# 0.03 X10^3/uL; Basophil% 0.5 % (0-1); Eosinophil# 0.27 X10^3/uL; Eosinophils% 4.3 % (0-5); Hematocrit 29.5 % (40-54); Hemoglobin 9.6 g/dL (13.0-16.5); Lymphocyte # 1.67 X10^3/ul (0.83-4.51); Lymphocyte % 26.8 % (19-41); Mean Corp Hgb Conc 32.5 g/dL (32-36); Mean Corpuscular Hgb 27.1 pg (27.0-32.0); Mean Corpuscular Volume 83.3 fL (80-94); Mean Platelet Vol. 8.9 fl (6.2-12.0); Monocyte# 0.65 X10^3/uL; Monocyte% 10.5 % (0-10); NRBC Flagged by Analyzer 0 % (0-5); Neutrophil # 3.58 X10^3/uL (2.7-7.7); Neutrophil % 57.6 % (47-70); Platelet Count 227 K/mm3 (150-450); RBC Distribution Width CV 14.5 % (11.6-14.6); RBC Distribution Width SD 44.3 fl (35.1-43.9); Red Blood Count 3.54 M/mm3 (4.6-6.2); White Blood Count 6.2 K/mm3 (4.4-11.0)
[2021-05-07 06:10] LABS: Anion Gap 4 (5-15); BUN 20 mg/dL (7-18); BUN/Creat Ratio 24.9 RATIO (10-20); Calcium,Total 8.3 mg/dL (8.5-10.1); Chloride 106 mmol/L (98-107); EST Glomerular Filtration Rate 99 mL/min (>60); Est Glom Filt Rate - Afr Amer 119 mL/min (>60); Estimated Creatinine Clearance 99.23 ml/min; Glucose 84 mg/dL (74-106); Potassium 3.7 mmol/L (3.5-5.1); Sodium Level 139 mmol/L (136-145)
--- NOTE | 2021-05-07 08:29 | CASEMGMT ---
Addendum entered by Fany Dejesus 05/07/21 09:29: ALESSANDRO received call from [place] at [facility] stating they are able to accept pt today, will not need another COVID test. [place] requests transportation to be arranged for after 1:00pm. Plan: [facility] today Original Note: Social Work Note SW placed a call to [place] at [facility] and left message asking to confirm if they are able to accept pt today, also asked if pt will need new COVID test (pt's last COVID was done on 05/04). SW waiting for call back. Plan: [facility] Fany Dejesus EDGER MACHINE OPERATOR, AIRLINE MANAGER
[2021-05-07] MEDS: Aspirin E.C. 81 MG Tablet PO (09:12)
[2021-05-07] MEDS: Furosemide 20 MG Tablet PO (09:13)
[2021-05-07] MEDS: Lisinopril 5 MG Tablet PO (09:13)
[2021-05-07] MEDS: Clopidogrel Bisulfate 75 MG Tablet PO (09:13)
[2021-05-07] MEDS: Potassium Chloride Oral Tablet 20 MEQ PO (09:13)
[2021-05-07] MEDS: Carvedilol 6.25 MG Tablet PO (09:13)
[2021-05-07] MEDS: Polyethylene Glycol 3350 17 GM PACKET PO (09:14)
[2021-05-07] MEDS: Juven (unflavored) Packet 1 PACKET PO (09:14)
[2021-05-07] MEDS: Enoxaparin 40 MG/0.4 ML Syringe SC (09:14)
--- NOTE | 2021-05-07 10:26 | CASEMGMT ---
Notified JANAY Hoyos marek that pt will be dc'ing to [facility] today.
--- NOTE | 2021-05-07 12:52 | PCM.DC.SUM ---
Providers Date of Admission: 05/04/21 Primary Care Physician: Dr. Lam Huffman MD Consultations 05/04/21 14:02 Consult: Podiatry Routine Consulting Provider: Verónica Green Reason for Consult: foot ulceration EMERGENT Consult: No MD Notified: Yes Date Notified: 05/04/21 Time Notified: 14:24 Method of Notification: Text 05/04/21 14:06 Consult: Onc/Wound/senior internet sales consultant Routine Comment: Reason For Visit: BILATERAL LOWER EXTREMITY CELLULITIS Diagnosis Discharge Diagnosis (1) Fall: Status: Acute Code(s): W19.XXXA - Unspecified fall, initial encounter (2) Bilateral cellulitis of lower leg: Status: Acute Code(s): L03.116 - Cellulitis of left lower limb; L03.115 - Cellulitis of right lower limb Medications at Discharge Home Medications aspirin 81 mg PO DAILY@0800 tab 11/13/18 atorvastatin 40 mg tablet 40 mg PO QHS #30 tab 02/21/20 clopidogrel 75 mg tablet 75 mg PO .COMPLEX #90 tab 02/21/20 carbidopa-levodopa 1 ea PO TID 02/23/20 carvedilol 6.25 mg tablet 6.25 mg PO BID #180 tab 06/02/20 furosemide 40 mg PO DAILY 05/04/21 polyethylene glycol 3350 17 g PO DAILY PRN 05/04/21 potassium chloride 20 meq PO DAILY 05/04/21 cephalexin 500 mg PO Q8H #21 cap 05/07/21 sulfamethoxazole-trimethoprim [Bactrim DS] 1 tab PO BID #14 tab 05/07/21 Hospital Course Operations None Procedures None Summary of Care Provided Minutes Spent on Discharge: 45 Hospital Course: RADHA ZAMBRANO, is a 81 M with a PMH as outlined who presents via the ED on 05/04/2021 with a complaint of a RLE wound. His home care companion noticed maggots in his wound; he has chronic LE lymphedema. He complained of worsening redness and swelling of his right leg. He denied any fever, chills, shortness of breath, any discharge from the wound or any other symptoms. Review of systems otherwise negative. Vitals in the ED were blood pressure 132/62, pulse rate of 78, respiratory rate of 10 and temperature of 98.6 Fahrenheit. Labs showed WBC of 8.7 with hemoglobin of 11 and platelets of 246. BMP showed sodium of 137 with bicarb of 26 and potassium of 3.9 and creatinine of 1.01. ESR is 72mm/hr and CRP was also elevated at 22.20. He was admitted to be managed for cellulitis and ulceration of the RLE. He was started on IV clindamycin and this was continued while she was in the hospital. Podiatry was consulted and wound care was also consulted. Patient had maggots in his wounds on admission and this was cleaned out by wound care. Podiatry reviewed patient and educated dressing of his wounds and did not think he needed any surgical intervention. Blood cultures were negative and wound cultures grew stenotrophomonas and beta Streptococcus. Patient remained stable and worked well with physical therapy. However he wanted to go to a rehab facility for further care. He was discharged to [place] [id number] on 05/07/2021 and was discharged on p.o keflex and p.o. Bactrim for 7 days. He is to follow-up with his primary care doctor and wound care as well as podiatry in 1 to 2 weeks. Patient seen and examined prior to discharge. He had no complaints and felt well. Review of symptoms otherwise negative. Labs and vitals reviewed. Medication reviewed and reconciled. Physical Exam Const alert, oriented x3 and no apparent distress General Appearance: cooperative and comfortable Exam Limitations: no limitations HEENT normocephalic, head/scalp atraumatic, hearing grossly normal bilaterally and moist oral mucous membranes Eyes PERRL, EOMs intact bilaterally and conjunctivae normal Neck no lymphadenopathy, supple and no JVD Resp normal respiratory effort, no retractions, no use of accessory muscles and clear to auscultation bilaterally Cardio regular rate, regular rhythm, S1 normal heart sound, S2 normal heart sound and no murmurs GI normal to inspection, nondistended, normoactive bowel sounds, soft to palpation, non-tender and non-distended Extremity Extremity Narrative: Both LEs wrapped in HERNANDO bandage Skin no rashes or lesions noted Neuro oriented x3 and CN's II-XII intact bilaterally Sensorium / Orientation: awake and alert Psych affect normal Weight / BMI Weight Weight: 253 lb 4.978 oz Body Mass Index (BMI) 28.5 ABG / Lab / Microbiology Data Result Diagrams: 05/07/21 05:33 05/07/21 05:33 Laboratory: Laboratory Results - last 24 hr 05/07/21 05:33: WBC 6.2, RBC 3.54 L, Hgb 9.6 L, Hct 29.5 L, MCV 83.3, MCH 27.1, MCHC 32.5, RDW Std Deviation 44.3 H, RDW Coeff of Donnie 14.5, Plt Count 227, MPV 8.9, Immature Gran % (Auto) 0.300, Neut % (Auto) 57.6, Lymph % (Auto) 26.8, [place] % (Auto) 10.5 H, Eos % (Auto) 4.3, Baso % (Auto) 0.5, Absolute Neuts (auto) 3.6, Absolute Lymphs (auto) 1.67, Nucleated RBC % 0 05/07/21 05:33: Sodium 139, Potassium 3.7, Chloride 106, Carbon Dioxide 29.0, Anion Gap 4 L, BUN 20 H, Creatinine 0.80, Estim Creat Clear Calc 99.23, Est GFR (MDRD) Af Amer 119, Est GFR (MDRD) Non-Af 99, BUN/Creatinine Ratio 24.9 H, Glucose 84, Calcium 8.3 L Microbiology: Microbiology 05/04/21 15:15 Wound - Right Foot Gram Stain - Final 05/04/21 15:15 Wound - Right Foot Wound Culture - Preliminary Stenotrophomonas maltophilia Beta streptococcus 05/04/21 10:20 Blood Culture (Wb) - Anticubital Right Blood Culture - Preliminary No growth in 48 hours. 05/04/21 10:15 Blood Culture (Wb) - Arm Right Blood Culture - Preliminary No growth in 48 hours. 05/04/21 09:55 Nasal Secretion SARS-CoV-2 Antigen (Rapid) - Final D/C Instructions Discharge Diet: Low fat / Low cholesterol Discharge Activity: Return to Normal Activity Weight Bearing Status: Weight bearing as tolerated Call your doctor if you observe: Fever of 101 or Higher and Swelling in the ankles Meaningful Use Info Meaningful Use Diagnoses (Choose all that apply): None applicable Discharge Plan Admission Admit Date/Time: 05/04/21 14:00 Primary Reason for Your Visit: Cellulitis of the lower extremities Attending Provider: Kavya Owen Primary Care Provider: Lam Huffman Consulting Providers: Verónica Green Instructions Patient Instructions: Cellulitis Additional Instructions / Restrictions: every other day dressing changes. Wash foot and legs with soap and water then apply adaptic to right heel wound, cover with DSD, and apply compression from toes to knee bilateral Discharge Orders/Prescriptions Prescriptions: New sulfamethoxazole-trimethoprim [Bactrim DS] 800-160 mg tablet 1 tab PO BID Qty: 14 RF: 0 cephalexin 500 mg capsule 500 mg PO Q8H Qty: 21 RF: 0 Continued atorvastatin 40 mg tablet 40 mg PO QHS Qty: 30 RF: 11 clopidogrel [Plavix] 75 mg tablet 75 mg PO .COMPLEX Qty: 90 RF: 3 aspirin 81 MG tablet 81 mg PO DAILY@0800 RF: 0 carbidopa-levodopa 1 EACH tablet,disintegrating 1 ea PO TID RF: 0 potassium chloride 20 mEq tablet,ER particles/crystals 20 meq PO DAILY RF: 0 furosemide 20 mg tablet 40 mg PO DAILY RF: 0 polyethylene glycol 3350 17 gram Powder In Packet 17 g PO DAILY PRN (Reason: Constipation) RF: 0 carvedilol 6.25 mg tablet 6.25 mg PO BID Qty: 180 RF: 3 Referrals / Follow Up: Shaheen Franz DPM [STAFF PHYSICIAN] - (continue wound care appointments 1 week after DC) Lam Huffman MD [Primary Care Provider] - Within 1 Week Disposition Disposition (needs filled in before D/C Order can be placed): Group Home Facility Charges/Coding Visit Charges Inpatient E&M: 88527 Disch Hosp
--- NOTE | 2021-05-07 13:10 | TREXTCAR_ITS ---
Diet 05/04/21 14:02 Diet: Cardiac - Heart Healthy Food consistency:: Regular Liquid Consistency:: Regular/Thin Is pt able to select menu?: Yes Diet Comments: allergy:raspberry,strawberry,mushrooms,lemon-[place] flavor;1- 2oz +meatQmeal Wound(s) right sinclair: Wound Type: Stasis Ulcer Dressing Change: Adaptic left sinclair: Wound Type: Stasis Ulcer Dressing Change: Adaptic right ankle: Wound Type: Stasis Ulcer right medial ankle: Wound Type: Neuropathic/Diabetic Foot Ulcer Dressing Change: Adaptic right medial heel: Wound Type: Neuropathic/Diabetic Foot Ulcer Dressing Change: Adaptic Therapies Weight Bearing: Weight bearing as tolerated Problem/Diagnosis (1) Fall: Status: Acute (2) Bilateral cellulitis of lower leg: Status: Acute Allergies/Procedures Done in Hospital Allergies raspberry Allergy (Verified 05/04/21 09:31) Other strawberry Allergy (Verified 05/04/21 09:31) Other lemon-[place] flavor Allergy (Uncoded 05/04/21 09:31) Other mushroom Allergy (Uncoded 05/04/21 09:31) Other Type of Care/Length of Stay Estimated LOS: Convalescent Care Less Than 30 days Type of Care Needed: Skilled Rehab Potential: Good Prognosis: Good Additional Orders/Day of Discharge Day of Discharge: 05/07/21 Dietary and Speech Recommendations Dietitian Recommendations/Changes: Continue cardiac diet; fluid restriction as needed. [place]yland BID w/ medpass. Extra 1-2 oz lean meat Q meal. Discharge Plan Admission Admit Date/Time: 05/04/21 14:00 Primary Reason for Your Visit: Cellulitis of the lower extremities Attending Provider: Kavya Owen Primary Care Provider: Lam Huffman Consulting Providers: Verónica Green Instructions Patient Instructions: Cellulitis Additional Instructions / Restrictions: every other day dressing changes. Wash foot and legs with soap and water then apply adaptic to right heel wound, cover with DSD, and apply compression from toes to knee bilateral Discharge Orders/Prescriptions Prescriptions: New sulfamethoxazole-trimethoprim [Bactrim DS] 800-160 mg tablet 1 tab PO BID Qty: 14 RF: 0 cephalexin 500 mg capsule 500 mg PO Q8H Qty: 21 RF: 0 Continued atorvastatin 40 mg tablet 40 mg PO QHS Qty: 30 RF: 11 clopidogrel [Plavix] 75 mg tablet 75 mg PO .COMPLEX Qty: 90 RF: 3 aspirin 81 MG tablet 81 mg PO DAILY@0800 RF: 0 carbidopa-levodopa 1 EACH tablet,disintegrating 1 ea PO TID RF: 0 potassium chloride 20 mEq tablet,ER particles/crystals 20 meq PO DAILY RF: 0 furosemide 20 mg tablet 40 mg PO DAILY RF: 0 polyethylene glycol 3350 17 gram Powder In Packet 17 g PO DAILY PRN (Reason: Constipation) RF: 0 carvedilol 6.25 mg tablet 6.25 mg PO BID Qty: 180 RF: 3 Referrals / Follow Up: Shaheen Franz DPM [STAFF PHYSICIAN] - (continue wound care appointments 1 week after DC) Lam Huffman MD [Primary Care Provider] - Within 1 Week Disposition Disposition (needs filled in before D/C Order can be placed): Nursing Home Facility
[2021-05-07] MEDS: 0.9% Saline Lock 10 ML Syringe IV (14:13)
--- NOTE | 2021-05-07 14:56 | CASEMGMT ---
Addendum entered by Fany Dejesus 05/07/21 16:31: SW did ask pt if he wanted this worker to call any family members and pt denied, stating he will call them. Original Note: Social Work Note Pt is discharging to [facility] today. ALESSANDRO faxed completed discharge paperwork to [facility] including transfer to extended care facility, signed medication list, any scripts, COVID test/tool and Convalescent 7000. Original in SNF folder and copy on pt's chart. ALESSANDRO completed convalescent 7000 in [place]. ALESSANDRO spoke with RN, pt to transport via cot. SW accessed trip assist and arranged transportation via cot for 3:30pm. Transportation form completed and placed on SNF folder and copy on pt's chart. SW updated pt and RN on transportation time. ALESSANDRO placed a call to Zena at [facility] and updated her on transportation time. ALESSANDRO placed a call to Freddy at [facility] and updated her that pt to discharge to [facility] today. Plan: [facility] skilled today with Physician's transporting pt via cot at 3:30pm Fany CACERES, PLASTIC PRODUCTION MACHINE SETTER
== END 2021-05-07 16:00 | disposition skilled nursing facility (03) | DRG 572 ==
LOC: ED 11:41 → PCU 12:31 → MS3 05-05 07:36 → PCU 05-05 10:12
PROVIDERS: Admitting Provider Student in an Organized Health Care Education/Training Program; Emergency Provider Emergency Medicine; PCP Internal Medicine; Visit Provider Student in an Organized Health Care Education/Training Program
DX: L03.115 Cellulitis of right lower limb (principal); L03.116 Cellulitis of left lower limb; I89.0 Lymphedema, not elsewhere classified; B87.1 Wound myiasis; N40.0 Benign prostatic hyperplasia without lower urinary tract symptoms; I25.10 Atherosclerotic heart disease of native coronary artery without angina pectoris; L97.512 Non-pressure chronic ulcer of other part of right foot with fat layer exposed; H54.61 Unqualified visual loss, right eye, normal vision left eye; H91.93 Unspecified hearing loss, bilateral; M47.816 Spondylosis without myelopathy or radiculopathy, lumbar region; I10 Essential (primary) hypertension; I87.2 Venous insufficiency (chronic) (peripheral); E78.5 Hyperlipidemia, unspecified; G30.9 Alzheimer's disease, unspecified; F02.80 Dementia in other diseases classified elsewhere, unspecified severity, without behavioral disturbance, psychotic disturbance, mood disturbance, and anxiety; I25.2 Old myocardial infarction; S81.811A Laceration without foreign body, right lower leg, initial encounter; S81.812A Laceration without foreign body, left lower leg, initial encounter; X58.XXXA Exposure to other specified factors, initial encounter; Z79.899 Other long term (current) drug therapy; Z79.02 Long term (current) use of antithrombotics/antiplatelets; Z79.82 Long term (current) use of aspirin; Z87.891 Personal history of nicotine dependence
CPT/HCPCS: 36415; 73630; 80048; 80053; 85025; 85652; 86140; 87040; 87070; 87077; 87186; 87205; 87426; 87640; 97110; 97162; 97166; 97530; 97535; 97802; 99285; J7030; J7050; A4216

== ENCOUNTER → 2021-05-12 05:00 | Outpatient (REF) | payer MEDICARE, MEDICAID, SELFPAY ==
[2021-05-12 06:42] LABS: Hematocrit 32.7 % (40-54); Hemoglobin 10.3 g/dL (13.0-16.5); Mean Corp Hgb Conc 31.5 g/dL (32-36); Mean Corpuscular Hgb 26.6 pg (27.0-32.0); Mean Corpuscular Volume 84.5 fL (80-94); Mean Platelet Vol. 9.4 fl (6.2-12.0); Platelet Count 271 K/mm3 (150-450); RBC Distribution Width CV 14.6 % (11.6-14.6); RBC Distribution Width SD 44.6 fl (35.1-43.9); Red Blood Count 3.87 M/mm3 (4.6-6.2); White Blood Count 6.7 K/mm3 (4.4-11.0)
[2021-05-12 07:00] LABS: Anion Gap 5 (5-15); BUN 26 mg/dL (7-18); BUN/Creat Ratio 23.6 RATIO (10-20); Calcium,Total 8.6 mg/dL (8.5-10.1); Chloride 105 mmol/L (98-107); EST Glomerular Filtration Rate 69 mL/min (>60); Est Glom Filt Rate - Afr Amer 83 mL/min (>60); Glucose 86 mg/dL (74-106); Sodium Level 136 mmol/L (136-145)
[2021-05-12 07:14] LABS: Hemoglobin A1c 5.6 % (3.8-5.6)
== END ==
LOC: OLS.WHLTCC 05:00
PROVIDERS: PCP Internal Medicine; Visit Provider Family Medicine
DX: I87.313 Chronic venous hypertension (idiopathic) with ulcer of bilateral lower extremity (principal); L03.115 Cellulitis of right lower limb; L03.116 Cellulitis of left lower limb; E11.621 Type 2 diabetes mellitus with foot ulcer
CPT/HCPCS: 36415; 80048; 83036; 85027

== ENCOUNTER 2021-08-07 11:57 | Emergency (ER) | payer MEDICARE, MEDICAID, SELFPAY ==
[2021-08-07 11:57] VITALS: BP 124/74; PULSE 73; RESP 16; TEMP 36.7; O2SAT 98; BMI 26.6
--- NOTE | 2021-08-07 13:48 | RAD_ITS ---
STUDY: X-RAY - LEFT TIBIA AND FIBULA REASON FOR EXAM: Male, 81 years old. Infection TECHNIQUE: AP and lateral view(s) of the tibia and fibula were obtained. COMPARISON: None. FINDINGS: Coarse periosteal reaction of the posterior aspect of the proximal tibia probably benign and may be due to venous insufficiency or old injury. Normal visualized fibula. There is no demonstrated acute fracture. Diffuse soft tissue swelling. RAD/Tibia & Fibula 2 Views IMPRESSION: Diffuse soft tissue swelling. No demonstrated acute osseous changes. Electronically Signed: Yunior Conrad, at 14:32 EST Tel , Service support ,
--- NOTE | 2021-08-07 13:48 | RAD_ITS ---
STUDY: X-RAY - LEFT FOOT CLINICAL: Male, 81 years old. Pain TECHNIQUE: 3 view(s) of the foot. COMPARISON: None. FINDINGS: Extensive soft tissue swelling on the dorsal aspect of the foot. No demonstrated acute fracture. The joint spaces are within normal limits. RAD/Foot min 3 Views IMPRESSION: Extensive soft tissue swelling. No demonstrated acute osseous changes. Electronically Signed: Yunior Conrad, at 14:31 EST Tel , Service support ,
[2021-08-07 14:03] LABS: Absolute Lymphocyte Count 1.57 X10^3/uL (0.83-4.51); Absolute Neutrophil Count 3.6 X10^3/uL (2.0-7.7); Basophil# 0.03 X10^3/uL; Basophil% 0.5 % (0-1); Eosinophil# 0.17 X10^3/uL; Eosinophils% 2.8 % (0-5); Hematocrit 33.3 % (40-54); Hemoglobin 10.7 g/dL (13.0-16.5); Lymphocyte # 1.57 X10^3/ul (0.83-4.51); Lymphocyte % 25.5 % (19-41); Mean Corp Hgb Conc 32.1 g/dL (32-36); Mean Corpuscular Hgb 26.6 pg (27.0-32.0); Mean Corpuscular Volume 82.8 fL (80-94); Mean Platelet Vol. 9.5 fl (6.2-12.0); Monocyte# 0.76 X10^3/uL; Monocyte% 12.4 % (0-10); NRBC Flagged by Analyzer 0 % (0-5); Neutrophil # 3.61 X10^3/uL (2.7-7.7); Neutrophil % 58.6 % (47-70); Platelet Count 176 K/mm3 (150-450); RBC Distribution Width CV 14.4 % (11.6-14.6); RBC Distribution Width SD 43.4 fl (35.1-43.9); Red Blood Count 4.02 M/mm3 (4.6-6.2); White Blood Count 6.2 K/mm3 (4.4-11.0)
--- NOTE | 2021-08-07 14:11 | EDS_ITS ---
HPI History of Present Illness Chief Complaint: Lower Extremity Injury Detail of Chief Complaint: Left heel pain Informant: patient Onset/Context/Timing Onset: Days Context: Gradual Onset Current Severity: Mild Maximum Severity: Mild Narrative Narrative: Patient presents with pain to the plantar surface of the left foot over the heel. He has chronic lower extremity lymphedema and has wraps placed on his legs twice a week. He is not sure if they may wrap his legs too tight last time. He denies any injury. He does get around at home with a walking stick. He denies fever or chills. [facility] Medical History (Updated 08/07/21 @ 16:[address] Valerie Yates MD) Abnormality of gait Atherosclerotic heart disease of [place] coronary artery without angina pectoris Bilateral edema of lower extremity Bilateral hearing loss Blind right eye BPH (benign prostatic hyperplasia) Chronic ulcer of right foot with fat layer exposed History of non-ST elevation myocardial infarction (NSTEMI) (11/12/18) Hyperlipidemia Lymphedema Osteoarthritis of lumbar spine Physical debility PSA elevation Renal cyst Venous insufficiency Home Medications aspirin 81 mg PO DAILY@0800 tab 11/13/18 [Rx Last Taken 02/26/20] carbidopa-levodopa 1 ea PO TID 02/23/20 [History Last Taken 02/26/20] carvedilol 6.25 mg tablet 6.25 mg PO BID #180 tab 06/02/20 [Rx Last Taken Unknown] furosemide 40 mg PO DAILY 05/04/21 [History Last Taken Unknown] polyethylene glycol 3350 17 g PO DAILY PRN 05/04/21 [History Last Taken Unknown] potassium chloride See Rx Instructions .ROUTE .COMPLEX 05/04/21 [History Last Taken Unknown] atorvastatin 80 mg PO QHS 08/07/21 [History Last Taken Unknown] clopidogrel [Plavix] 75 mg PO QHS 08/07/21 [History Last Taken Unknown] Allergy/AdvReac Type Severity Reaction Status Date / Time raspberry Allergy Other Verified 08/07/21 12:00 strawberry Allergy Other Verified 08/07/21 12:00 lemon-[place] flavor Allergy Other Uncoded 08/07/21 12:00 mushroom Allergy Other Uncoded 08/07/21 12:00 Surgical History Stented coronary artery (11/12/18) Social History Smoking Status: Former smoker ROS ROS ED Constitutional Constitutional ED: Denies chills or fever(s) ENT ENT ED: Denies rhinorrhea Cardiovascular Cardiovascular: Denies chest pain or palpitations Respiratory/Chest Respiratory/Chest: Denies cough or dyspnea Gastrointestinal Gastrointestinal: Denies abdominal pain, nausea or vomiting Musculoskeletal Musculoskeletal: Reports arthralgias Endocrine Endocrinology: Denies polydipsia or polyuria Allergic/Immunologic Allergic/Immunologic ED: Denies urticaria EXAM Physical Exam Const Vital Signs: 08/07/21 11:57 Temperature 98.0 F Temperature Source Temporal Pulse Rate 73 Respiratory Rate 16 Blood Pressure 124/74 H Blood Pressure Mean 90 Pulse Ox 98 Oxygen Delivery Method Room Air Positive well nourished and well developed General Appearance ED: well developed Neck supple Chest Wall inspection of chest normal and palpation of chest normal Resp normal respiratory effort and clear to auscultation bilaterally Cardio regular rate and regular rhythm GI non-tender Palpation: soft Extremity Extremity Narrative: Chronic venous skin changes to the left lower extremity. No open wounds noted at this time. Mild tenderness with palpation over the plantar surface of the foot at the heel. No open wounds to this area. MDM MDM MDM Narrative Medical decision making narrative: Lab work including sed rate and CRP obtained. Left foot and left tib-fib x-rays ordered. Lab Data Attestation: I reviewed the patient's lab results. Labs: Laboratory Results - last 24 hr 08/07/21 08/07/21 13:50 13:50 WBC 6.2 RBC 4.02 L Hgb 10.7 L Hct 33.3 L MCV 82.8 MCH 26.6 L MCHC 32.1 RDW Std Deviation 43.4 RDW Coeff of Donnie 14.4 Plt Count 176 MPV 9.5 Immature Gran % (Auto) 0.200 Neut % (Auto) 58.6 Lymph % (Auto) 25.5 [place] % (Auto) 12.4 H Eos % (Auto) 2.8 Baso % (Auto) 0.5 Absolute Neuts (auto) 3.6 Absolute Lymphs (auto) 1.57 Nucleated RBC % 0 ESR 63 H Sodium 143 Potassium 4.0 Chloride 108 H Carbon Dioxide 30.0 Anion Gap 5 BUN 19 H Creatinine 1.11 Estim Creat Clear Calc 71.52 Est GFR (MDRD) Af Amer 82 Est GFR (MDRD) Non-Af 68 BUN/Creatinine Ratio 17.1 Glucose 86 Calcium 8.7 C-React Prot Ext Range 9.03 H Radiography Diagnostic Testing: Clinical Impression(s) from Imaging Studies Foot X-Ray 08/07/21 13:48 IMPRESSION: Extensive soft tissue swelling. No demonstrated acute osseous changes. Electronically Signed: Yunior Conrad, at 14:31 EST Tel , Service support , Tibia/Fibula X-Ray 08/07/21 13:48 IMPRESSION: Diffuse soft tissue swelling. No demonstrated acute osseous changes. Electronically Signed: Yunior Conrad, at 14:32 EST Tel , Service support , Treatment and Re-Evaluation Comments:: On repeat evaluation patient resting comfortably. He states pain is somewhat improved after unwrapping his leg and foot. Lab work is unremarkable. Sed rate and CRP are slightly elevated, but to a lesser degree than prior visits. X-rays reveal no acute osseous changes. At this time I do not have a specific reason to keep him in the hospital. Patient states he does live alone but feels comfortable caring for himself. I will speak with social work to ensure patient has all the services that he needs. Leg and foot will be redressed and patient is to follow-up with Dr. Franz. Discharge Plan Triage Chief Complaint: Lower Extremity Injury ED Provider: Valerie Yates Dx/Rx/DC Orders Clinical Impression: Foot pain, left Instructions: ED Foot Contusion Prescriptions: No Action aspirin 81 MG tablet 81 mg PO DAILY@0800 RF: 0 carbidopa-levodopa 1 EACH tablet,disintegrating 1 ea PO TID RF: 0 potassium chloride 20 mEq tablet,ER particles/crystals See Rx Instructions .ROUTE .COMPLEX RF: 0 furosemide 20 mg tablet 40 mg PO DAILY RF: 0 polyethylene glycol 3350 17 gram Powder In Packet 17 g PO DAILY PRN (Reason: Constipation) RF: 0 atorvastatin 40 mg tablet 80 mg PO QHS RF: 0 clopidogrel [Plavix] 75 mg tablet 75 mg PO QHS RF: 0 carvedilol 6.25 mg tablet 6.25 mg PO BID Qty: 180 RF: 3 Primary Care Provider: Lam Huffman Referrals: Lam Huffman MD [Primary Care Provider] - Shaheen Franz DPM [STAFF PHYSICIAN] - As soon as possible
[2021-08-07 14:14] LABS: Erythrocyte Sedimentation Rate 63 mm/hr (0-20)
[2021-08-07 14:16] LABS: Anion Gap 5 (5-15); BUN 19 mg/dL (7-18); BUN/Creat Ratio 17.1 RATIO (10-20); CRP 9.03 mg/L (0.0-3.0); Calcium,Total 8.7 mg/dL (8.5-10.1); Chloride 108 mmol/L (98-107); Creatinine, Serum 1.11 mg/dL (0.70-1.30); EST Glomerular Filtration Rate 68 mL/min (>60); Est Glom Filt Rate - Afr Amer 82 mL/min (>60); Estimated Creatinine Clearance 71.52 ml/min; Glucose 86 mg/dL (74-106); Sodium Level 143 mmol/L (136-145)
[2021-08-07 16:29] VITALS: BP 137/79; PULSE 64; RESP 15
--- NOTE | 2021-08-07 16:44 | NURSING ---
CALLED [facility]. ETA IS 45 MIN
--- NOTE | 2021-08-07 18:51 | CM.ED ---
SW Note Referral Source: hepatologist Reason: Discharge planning ALESSANDRO was advised by MD that patient lives alone and to see what services patient could or has been linked with to provide support for patient. PCP: Tobias Specialist: Dr. Olivares, Etl Data Architect Preferred Pharmacy: [facility] Insurance: My Care [facility] Living Will/HCPOA: Patient denied HCPOA of living will and declined information on Advanced Directives LNOK: Man and Rodrigue Boles, brother residing in [place] Living Arrangements: Patient resides in a ground floor apartment through [facility] Prior Level of Functioning: Patient reports he bathes, goes to bathroom and prepares meals himself. Patient said that he had MOW in the past but had it stop. Patient said that he does not drive now due to car issues but plans to resume driving DME: Walking stick, cane and walker HHC/SNF: Patient has [facility] Home Health RN for his wounds Assessment: Patient voiced that he feels comfortable going home and has no concerns. He reports he is linked with [facility], [facility] and has an [facility] manager of internal. Patient voiced that he has no concerns about discharge. ALESSANDRO sent email to [facility] that patient was in the ED today. ALESSANDRO left voice mail for Soha Alicia from [facility] Home Health advising of patient's admission and discharge to the ED. ALESSANDRO called [facility] but no general mailbox so ALESSANDRO will follow up with [facility] on Monday.
--- NOTE | 2021-08-09 11:55 | CM.ED ---
ALESSANDRO Note ALESSANDRO called [facility] and left a voice mail in the general mailbox advising that patient had reported that he was linked with [facility] but did not know the caser's name. ALESSANDRO advised patient came to the ED this weekend and was discharged home the same day related to pain with his feet. ALESSANDRO left call back number for this blog writer. updated. Plan: Collateral with patient's providers and resources Astrid [facility]
== END 2021-08-07 16:55 | disposition home or self-care (01) ==
LOC: ED 14:55
PROVIDERS: Emergency Provider Emergency Medicine; PCP Internal Medicine
DX: M79.672 Pain in left foot (principal); I25.2 Old myocardial infarction; I25.10 Atherosclerotic heart disease of native coronary artery without angina pectoris; E78.5 Hyperlipidemia, unspecified; Z87.891 Personal history of nicotine dependence; Z79.899 Other long term (current) drug therapy; Z79.82 Long term (current) use of aspirin
CPT/HCPCS: 73590; 73630; 80048; 85025; 85652; 86140; 99283; A4216

== ENCOUNTER → 2021-11-03 | Outpatient (REF) | payer SELFPAY ==
[2021-11-03 08:21] LABS: Hematocrit 36.1 % (40-54); Hemoglobin 11.3 g/dL (13.0-16.5); Mean Corp Hgb Conc 31.3 g/dL (32-36); Mean Platelet Vol. 9.2 fl (6.2-12.0); Platelet Count 336 K/mm3 (150-450); RBC Distribution Width CV 14.5 % (11.6-14.6); Red Blood Count 4.35 M/mm3 (4.6-6.2); White Blood Count 7.4 K/mm3 (4.4-11.0)
[2021-11-03 08:43] LABS: Anion Gap 4 (5-15); BUN 16 mg/dL (7-18); BUN/Creat Ratio 15.7 RATIO (10-20); Chloride 103 mmol/L (98-107); Creatinine, Serum 1.02 mg/dL (0.70-1.30); EST Glomerular Filtration Rate 75 mL/min (>60); Est Glom Filt Rate - Afr Amer 90 mL/min (>60); Glucose 94 mg/dL (74-106); Potassium 3.9 mmol/L (3.5-5.1); Sodium Level 138 mmol/L (136-145)
== END | disposition home or self-care (01) ==
LOC: OLS.SW1020 04:00
PROVIDERS: PCP Internal Medicine; Referring Provider Family Medicine; Visit Provider Family Medicine
DX: I10 Essential (primary) hypertension (principal)
CPT/HCPCS: 36415; 80048; 85027

== ENCOUNTER → 2021-11-04 | Outpatient (REF) | payer SELFPAY ==
[2021-11-04 08:14] LABS: Mean Corp Hgb Conc 32.4 g/dL (32-36); Mean Corpuscular Hgb 26.9 pg (27.0-32.0); Mean Platelet Vol. 9.4 fl (6.2-12.0); Platelet Count 318 K/mm3 (150-450); RBC Distribution Width CV 14.6 % (11.6-14.6); RBC Distribution Width SD 44.6 fl (35.1-43.9); Red Blood Count 4.46 M/mm3 (4.6-6.2); White Blood Count 9.5 K/mm3 (4.4-11.0)
[2021-11-04 08:35] LABS: ALB/GLOB Ratio 0.7 RATIO (0.9-2.4); AST(SGOT) 32 U/L (15-37); Alanine Aminotransfer ALT/SGPT 15 U/L (16-61); Albumin, Serum 3.2 g/dL (3.2-5.0); Alkaline Phosphatase 75 U/L (45-117); Anion Gap 5 (5-15); BUN 19 mg/dL (7-18); BUN/Creat Ratio 20.1 RATIO (10-20); Calcium,Total 9.1 mg/dL (8.5-10.1); Chloride 103 mmol/L (98-107); Creatinine, Serum 0.95 mg/dL (0.70-1.30); EST Glomerular Filtration Rate 82 mL/min (>60); Est Glom Filt Rate - Afr Amer 99 mL/min (>60); Globulin 4.7 g/dL (2.2-4.2); Glucose 96 mg/dL (74-106); Potassium 4.2 mmol/L (3.5-5.1); Protein, Total 7.9 g/dL (6.4-8.2); Sodium Level 136 mmol/L (136-145)
== END | disposition home or self-care (01) ==
LOC: OLS.SW1020 04:00
PROVIDERS: PCP Internal Medicine; Visit Provider Internal Medicine
DX: I10 Essential (primary) hypertension (principal)
CPT/HCPCS: 36415; 80053; 85027

== ENCOUNTER 2021-11-07 21:03 | Emergency (ER) | payer MEDICARE, MEDICAID, SELFPAY ==
[2021-11-07 21:04] VITALS: BP 145/83; PULSE 89; RESP 18; TEMP 36.8; O2SAT 98; BMI 28.3
--- NOTE | 2021-11-07 21:31 | ED.VIS.GI ---
HPI HPI - GI History of Present Illness Chief Complaint: Nausea/Vomiting/Diarrhea Informant: patient Abdominal Pain/Flank Pain Onset: - (unk) Timing: Continuous Quality: Aching Location: - (unk) Current Severity: Moderate Maximum Severity: Moderate Nausea/Vomiting/Emesis GI Symptom: Positive for Nausea and Vomiting Onset: Today Quality: Positive for - (unk quality) Diarrhea/Melena/Hematochezia GI Symptom: Positive for Diarrhea (And constipation see below) Narrative Narrative: Patient states he feels constipated, he needs to have a bowel movement and cannot. He also feels like he needs to urinate right now and cannot. He was treated at the intermediate with a fleets enema, and subsequently started having runny liquid stool that continues pouring out of him, so he was sent to the ER. Very limited history from this patient, he does not know the answers to most of my simple historical questions. [facility] Medical History (Updated 11/08/21 @ 00:[address] Alfredo Rojo MD) Abnormality of gait Atherosclerotic heart disease of [place] coronary artery without angina pectoris Bilateral edema of lower extremity Bilateral hearing loss Blind right eye BPH (benign prostatic hyperplasia) Chronic ulcer of right foot with fat layer exposed History of non-ST elevation myocardial infarction (NSTEMI) (11/12/18) Hyperlipidemia Lymphedema Osteoarthritis of lumbar spine Physical debility PSA elevation Renal cyst Venous insufficiency Home Medications aspirin 81 mg PO DAILY@0800 tab 11/13/18 [Rx Last Taken 02/26/20] carbidopa-levodopa 1 ea PO TID 02/23/20 [History Last Taken 02/26/20] furosemide 40 mg PO DAILY 05/04/21 [History Last Taken Unknown] polyethylene glycol 3350 17 g PO DAILY PRN 05/04/21 [History Last Taken Unknown] potassium chloride See Rx Instructions .ROUTE .COMPLEX 05/04/21 [History Last Taken Unknown] atorvastatin 80 mg PO QHS 08/07/21 [History Last Taken Unknown] clopidogrel [Plavix] 75 mg PO QHS 08/07/21 [History Last Taken Unknown] carvedilol 6.25 mg tablet 6.25 mg PO BID #180 tab 09/13/21 [Rx Last Taken Unknown] Milk of Magnesia 30 ml PO/SL DAILY PRN 11/07/21 [History Last Taken Unknown] bisacodyl 10 mg OH DAILY PRN 11/07/21 [History Last Taken Unknown] glycerin (adult) [Fleet Glycerin (Adult)] 1 supp OH DAILY PRN 11/07/21 [History Last Taken Unknown] guaifenesin 1 mg PO Q4H PRN 11/07/21 [History Last Taken Unknown] senna-docusate sodium 1 tab PO DAILY PRN 11/07/21 [History Last Taken Unknown] Allergy/AdvReac Type Severity Reaction Status Date / Time raspberry Allergy Other Verified 08/07/21 12:00 strawberry Allergy Other Verified 08/07/21 12:00 lemon-[place] flavor Allergy Other Uncoded 08/07/21 12:00 mushroom Allergy Other Uncoded 08/07/21 12:00 Surgical History Stented coronary artery (11/12/18) Social History Smoking Status: Former smoker ROS ROS ED Review of Systems ROS Unobtainable: other Details: Limited answers, patient cannot answer most review of system questions, see HPI ENT ENT ED: Denies ear pain or sore throat Cardiovascular Cardiovascular: Denies chest pain Respiratory/Chest Respiratory/Chest: Denies dyspnea Gastrointestinal Gastrointestinal: Reports abdominal pain, constipation, diarrhea, nausea and vomiting Musculoskeletal Musculoskeletal: Denies back pain or neck pain Integumentary Denies abscess or rash Neurologic Neurologic: Denies headache(s) or weakness EXAM Physical Exam Const Vital Signs: 11/07/21 21:04 Temperature 98.2 F Temperature Source Temporal Pulse Rate 89 Respiratory Rate 18 Blood Pressure 145/83 H Blood Pressure Mean 103 Pulse Ox 98 Oxygen Delivery Method Room Air Positive well nourished and well developed General Appearance ED: well developed and NAD HEENT Reports moist mucous membranes normocephalic and atraumatic Eyes PERRL and EOMs intact bilaterally Neck full ROM and supple Resp normal respiratory effort and clear to auscultation bilaterally Cardio regular rate, regular rhythm and no murmurs GI GI Narrative: Mild left lower quadrant pain/tenderness. No guarding or rebound. Distended. Normal bowel sounds. Otherwise benign abdomen. Auscultation: normoactive bowel sounds Palpation: soft Rectal Exam: fecal impaction and other Other Details: Encopresis present, with continuous of light brown liquid stool pouring out around a palpable fecal impaction Back/Spine no CVA tenderness General Back: other FROM Extremity normal to inspection General Extremety ED: Negative for edema, pulses abnormal or tenderness General Extremity: Negative for edema or pulses abnormal Neuro oriented x3, CN's II-XII intact bilaterally and no sensory deficits noted Sensorium / Orientation: awake and alert Motor Exam: strength 5/5 throughout Skin no rashes or lesions noted and no wounds MDM MDM MDM Narrative Medical decision making narrative: After the rectal exam, we allowed patient to try to have a bowel movement he was only able to have very little. We did another enema, soapsuds, but only half of it, and then he was able to go after another couple of attempts, and eventually have a very productive stool. He felt better. We had him lie supine in bed again and I reexamined him. Less distended, nontender throughout his abdomen. He did urinate some, initially prior to that his bladder scan showed around 200 cc when he said he could not urinate, then afterwards he had about 170 and he said he felt fine and did not need to go. I suspect this was mostly related to his constipation, and I feel he can be safely discharged back now. Discharge Plan Triage Chief Complaint: Nausea/Vomiting/Diarrhea ED Provider: Alfredo Rojo Dx/Rx/DC Orders Clinical Impression: Fecal impaction in rectum, Encopresis Instructions: ED Fecal Impaction, Treated Prescriptions: No Action aspirin 81 MG tablet 81 mg PO DAILY@0800 RF: 0 carbidopa-levodopa 1 EACH tablet,disintegrating 1 ea PO TID RF: 0 potassium chloride 20 mEq tablet,ER particles/crystals See Rx Instructions .ROUTE .COMPLEX RF: 0 furosemide 20 mg tablet 40 mg PO DAILY RF: 0 polyethylene glycol 3350 17 gram Powder In Packet 17 g PO DAILY PRN (Reason: Constipation) RF: 0 atorvastatin 40 mg tablet 80 mg PO QHS RF: 0 clopidogrel [Plavix] 75 mg tablet 75 mg PO QHS RF: 0 senna-docusate sodium Tablet 1 tab PO DAILY PRN (Reason: Constipation) RF: 0 guaifenesin 50 mg/5 mL Liquid 1 mg PO Q4H PRN (Reason: Cough) RF: 0 Milk of Magnesia 30 ml PO/SL DAILY PRN (Reason: Constipation) RF: 0 glycerin (adult) [Fleet Glycerin (Adult)] Suppository 1 supp [place] DAILY PRN (Reason: Constipation) RF: 0 bisacodyl 10 mg Suppository 10 mg [place] DAILY PRN (Reason: Constipation) RF: 0 carvedilol 6.25 mg tablet 6.25 mg PO BID Qty: 180 RF: 3 Primary Care Provider: Pablito Brower Referrals: Pablito Brower MD [Primary Care Provider] - As Needed Disposition Disposition: Home, Self Care
[2021-11-07] MEDS: Dicyclomine 10 MG Capsule PO (22:30)
[2021-11-07] MEDS: Ondansetron ODT 4 MG Tablet 8 MG PO (22:30)
[2021-11-08 00:51] VITALS: BP 136/74; PULSE 87; RESP 15; RESP 16; O2SAT 97
== END 2021-11-08 02:26 | disposition home or self-care (01) ==
PROVIDERS: Emergency Provider Emergency Medicine; PCP Family Medicine; Visit Provider Emergency Medicine
DX: K56.41 Fecal impaction (principal); R15.9 Full incontinence of feces; I25.10 Atherosclerotic heart disease of native coronary artery without angina pectoris; E78.5 Hyperlipidemia, unspecified; I25.2 Old myocardial infarction; Z87.891 Personal history of nicotine dependence; Z79.82 Long term (current) use of aspirin; Z79.899 Other long term (current) drug therapy
CPT/HCPCS: 99285

== ENCOUNTER → 2022-02-03 | Outpatient (REF) | payer MEDICARE, MEDICAID, SELFPAY ==
[2022-02-03 08:42] LABS: Hematocrit 32.8 % (40-54); Hemoglobin 10.4 g/dL (13.0-16.5); Mean Corp Hgb Conc 31.7 g/dL (32-36); Mean Corpuscular Hgb 26.5 pg (27.0-32.0); Mean Corpuscular Volume 83.5 fL (80-94); Platelet Count 197 K/mm3 (150-450); RBC Distribution Width CV 15.9 % (11.6-14.6); RBC Distribution Width SD 48.4 fl (35.1-43.9); Red Blood Count 3.93 M/mm3 (4.6-6.2); White Blood Count 5.7 K/mm3 (4.4-11.0)
[2022-02-03 08:57] LABS: ALB/GLOB Ratio 0.8 RATIO (0.9-2.4); AST(SGOT) 20 U/L (15-37); Alanine Aminotransfer ALT/SGPT 20 U/L (16-61); Albumin, Serum 2.9 g/dL (3.2-5.0); Alkaline Phosphatase 65 U/L (45-117); Anion Gap 3 (5-15); BUN 18 mg/dL (7-18); BUN/Creat Ratio 19.2 RATIO (10-20); Calcium,Total 8.6 mg/dL (8.5-10.1); Chloride 106 mmol/L (98-107); Creatinine, Serum 0.94 mg/dL (0.70-1.30); EST Glomerular Filtration Rate 83 mL/min (>60); Est Glom Filt Rate - Afr Amer 100 mL/min (>60); Globulin 3.7 g/dL (2.2-4.2); Glucose 80 mg/dL (74-106); Potassium 3.9 mmol/L (3.5-5.1); Protein, Total 6.6 g/dL (6.4-8.2); Sodium Level 140 mmol/L (136-145)
== END | disposition home or self-care (01) ==
LOC: OLS.SW1020 04:00
PROVIDERS: PCP Family Medicine; Visit Provider Family Medicine
DX: I89.0 Lymphedema, not elsewhere classified (principal)
CPT/HCPCS: 36415; 80053; 85027

== ENCOUNTER → 2022-05-06 | Outpatient (REF) | payer MEDICARE, MEDICAID, SELFPAY ==
[2022-05-06 08:26] LABS: Hemoglobin 11.6 g/dL (13.0-16.5); Mean Corp Hgb Conc 32.2 g/dL (32-36); Mean Corpuscular Hgb 26.9 pg (27.0-32.0); Mean Corpuscular Volume 83.3 fL (80-94); Mean Platelet Vol. 9.5 fl (6.2-12.0); Platelet Count 271 K/mm3 (150-450); RBC Distribution Width CV 14.5 % (11.6-14.6); RBC Distribution Width SD 43.9 fl (35.1-43.9); Red Blood Count 4.32 M/mm3 (4.6-6.2); White Blood Count 9.2 K/mm3 (4.4-11.0)
[2022-05-06 08:53] LABS: ALB/GLOB Ratio 0.7 RATIO (0.9-2.4); AST(SGOT) 27 U/L (15-37); Alanine Aminotransfer ALT/SGPT 23 U/L (16-61); Albumin, Serum 3.4 g/dL (3.2-5.0); Alkaline Phosphatase 79 U/L (45-117); Anion Gap 7 (5-15); BUN 17 mg/dL (7-18); BUN/Creat Ratio 16.5 RATIO (10-20); Calcium,Total 9.2 mg/dL (8.5-10.1); Chloride 104 mmol/L (98-107); Creatinine, Serum 1.03 mg/dL (0.70-1.30); EST Glomerular Filtration Rate 74 mL/min (>60); Est Glom Filt Rate - Afr Amer 89 mL/min (>60); Globulin 4.8 g/dL (2.2-4.2); Glucose 93 mg/dL (74-106); Potassium 3.8 mmol/L (3.5-5.1); Protein, Total 8.2 g/dL (6.4-8.2); Sodium Level 138 mmol/L (136-145)
== END ==
LOC: OLS.SWAL 05:00
PROVIDERS: PCP Family Medicine; Visit Provider Family Medicine
DX: I10 Essential (primary) hypertension (principal)
CPT/HCPCS: 36415; 80053; 85027

== ENCOUNTER → 2022-06-17 | Outpatient (REF) | payer MEDICARE, MEDICAID, SELFPAY ==
[2022-06-17 08:06] LABS: Absolute Lymphocyte Count 1.55 X10^3/uL (0.83-4.51); Absolute Neutrophil Count 4.5 X10^3/uL (2.0-7.7); Basophil# 0.05 X10^3/uL; Basophil% 0.7 % (0-1); Eosinophils% 5.5 % (0-5); Hemoglobin 9.1 g/dL (13.0-16.5); Lymphocyte # 1.55 X10^3/ul (0.83-4.51); Lymphocyte % 21.4 % (19-41); Mean Corp Hgb Conc 31.4 g/dL (32-36); Mean Corpuscular Hgb 25.9 pg (27.0-32.0); Mean Corpuscular Volume 82.6 fL (80-94); Mean Platelet Vol. 9.5 fl (6.2-12.0); Monocyte# 0.75 X10^3/uL; Monocyte% 10.3 % (0-10); NRBC Flagged by Analyzer 0 % (0-5); Neutrophil # 4.48 X10^3/uL (2.7-7.7); Neutrophil % 61.8 % (47-70); POSITIVE COUNT YES; RBC Distribution Width CV 15.7 % (11.6-14.6); RBC Distribution Width SD 46.4 fl (35.1-43.9); Red Blood Count 3.51 M/mm3 (4.6-6.2); White Blood Count 7.3 K/mm3 (4.4-11.0)
[2022-06-17 08:12] LABS: ALB/GLOB Ratio 0.6 RATIO (0.9-2.4); AST(SGOT) 20 U/L (15-37); Alanine Aminotransfer ALT/SGPT 17 U/L (16-61); Albumin, Serum 2.4 g/dL (3.2-5.0); Alkaline Phosphatase 65 U/L (45-117); Anion Gap 5 (5-15); BUN 16 mg/dL (7-18); BUN/Creat Ratio 19.7 RATIO (10-20); Calcium,Total 8.3 mg/dL (8.5-10.1); Chloride 108 mmol/L (98-107); Creatinine, Serum 0.81 mg/dL (0.70-1.30); EST Glomerular Filtration Rate 97 mL/min (>60); Est Glom Filt Rate - Afr Amer 118 mL/min (>60); Globulin 4.1 g/dL (2.2-4.2); Glucose 81 mg/dL (74-106); Potassium 4.1 mmol/L (3.5-5.1); Protein, Total 6.5 g/dL (6.4-8.2); Sodium Level 139 mmol/L (136-145)
[2022-06-17 08:36] LABS: Basophil 0.05 % (0-1); Blast 0.05 % (0-0); Differential Indicated SCAN CRITERIA MET; Eosinophil 0.05 % (0-5); Lymphocyte 0.05 % (19-41); Metamyelocyte 0.05 % (0-1); Monocyte 0.05 % (0-10); Myelocyte 0.05 % (0-0); Neutrophil-Band 0.05 % (0-5); Neutrophil-Segmented 0.05 % (47-70); Promyelocyte 0.05 % (0-0); Total Cells Counted 0.05 (MANUAL DIFF)
[2022-06-17 08:37] LABS: Atypical Lymphocyte 0 %; Auer Rods 0; Differential Comment 0; Dohle Bodies 0; Hypersegmented Neutrophils 0; Platelet Estimate ADEQUATE (ADEQ); Platelet Morphology 0; Reactive Lymphocyte 0; Smudge Cells 0; Toxic Granulation 0; Vacuolated Cells 0
[2022-06-17 08:57] LABS: Hemoglobin A1c 6.7 % (3.8-5.6)
[2022-06-17 10:08] LABS: Hemoglobin 9.1 g/dL (13.0-16.5); Mean Corp Hgb Conc 31.4 g/dL (32-36); Mean Corpuscular Hgb 25.9 pg (27.0-32.0); Mean Corpuscular Volume 82.6 fL (80-94); Red Blood Count 3.51 M/mm3 (4.6-6.2); White Blood Count 7.3 K/mm3 (4.4-11.0)
[2022-06-17 10:09] LABS: Differential Indicated SCAN CRITERIA MET; RBC Distribution Width CV 15.7 % (11.6-14.6); RBC Distribution Width SD 46.4 fl (35.1-43.9)
[2022-06-17 10:10] LABS: Basophil% 0.7 % (0-1); Eosinophils% 5.5 % (0-5); Lymphocyte % 21.4 % (19-41); Monocyte% 10.3 % (0-10); Neutrophil # 4.48 X10^3/uL (2.7-7.7); Neutrophil % 61.8 % (47-70)
[2022-06-17 10:11] LABS: Absolute Lymphocyte Count 1.55 X10^3/uL (0.83-4.51); Absolute Neutrophil Count 4.5 X10^3/uL (2.0-7.7); Basophil# 0.05 X10^3/uL; Lymphocyte # 1.55 X10^3/ul (0.83-4.51); Monocyte# 0.75 X10^3/uL; Platelet Estimate ADEQUATE (ADEQ)
== END ==
LOC: OLS.SWAL 05:00
PROVIDERS: PCP Family Medicine; Visit Provider Internal Medicine
DX: I10 Essential (primary) hypertension (principal); Z79.899 Other long term (current) drug therapy
CPT/HCPCS: 36415; 80053; 83036; 85025; 86140

== ENCOUNTER 2022-06-23 11:00 | Outpatient (RCR) | payer MEDICARE, MEDICAID, SELFPAY ==
[2022-06-16 09:15] VITALS: BP 131/62; PULSE 76; RESP 20; TEMP 35.9
--- NOTE | 2022-06-16 17:34 | HP.PCM_ITS ---
History of Present Illness Date of Service: 06/16/22 Chief Complaint: Bilateral lower extremity ulcers History of Wound: Mr. Boles is an 82-year-old currently residing at [facility] who presents due to nonhealing bilateral lower extremity ulceration. Has been present for some months. Has had some dressing changes done at his facility without any significant improvement. 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 Not very active. Significant bilateral lower extremity edema. He denies chills, fever or feeling of unwell. He states that his appetite is good. [facility] Medical History (Updated 06/16/22 @ 17:[address] 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 BPH (benign prostatic hyperplasia) Chronic ulcer of right foot with fat layer exposed History of non-ST elevation myocardial infarction (NSTEMI) (11/12/18) Hyperlipidemia Lymphedema Osteoarthritis of lumbar spine Physical debility PSA elevation Renal cyst Ulcer of left lower extremity with fat layer exposed Ulcer of right foot with fat layer exposed Ulcer of right lower extremity with fat layer exposed Venous insufficiency Venous insufficiency of both lower extremities Home Medications aspirin 81 mg tablet,delayed release 81 mg PO DAILY@0800 11/13/18 [Rx Last Taken 02/26/20] carbidopa 25 mg-levodopa 100 mg disintegrating tablet 1 ea PO TID tremors 02/23/20 [History Last Taken 02/26/20] furosemide 20 mg tablet 40 mg PO DAILY water pill 05/04/21 [History Last Taken Unknown] polyethylene glycol 3350 17 gram oral powder packet 17 g PO DAILY PRN Constipation 05/04/21 [History Last Taken Unknown] potassium chloride 20 mEq tablet,extended release(part/cryst) See Rx Instructions .Route .COMPLEX health maintenance 05/04/21 [History Last Taken Unknown] atorvastatin 40 mg tablet 80 mg PO QHS 08/07/21 [History Last Taken Unknown] clopidogrel 75 mg tablet (Plavix) 75 mg PO QHS 08/07/21 [History Last Taken Unknown] carvedilol 6.25 mg tablet 6.25 mg PO BID #180 tabs 09/13/21 [Rx Last Taken Unknown] Milk of Magnesia 30 ml PO/SL DAILY PRN Constipation 11/07/21 [History Last Taken Unknown] bisacodyl 10 mg rectal suppository 10 mg IA DAILY PRN Constipation 11/07/21 [History Last Taken Unknown] glycerin (adult) (Fleet Glycerin (Adult) rectal suppository) 1 supp IA DAILY PRN Constipation 11/07/21 [History Last Taken Unknown] guaifenesin 50 mg/5 mL oral liquid 1 mg PO Q4H PRN Cough 11/07/21 [History Last Taken Unknown] senna-docusate sodium tablet 1 tab PO DAILY PRN Constipation 11/07/21 [History Last Taken Unknown] Allergy/AdvReac Type Severity Reaction Status Date / Time lemon Allergy NEEDS Verified 06/16/22 09:45 FOLLOW-UP sycuan Allergy NEEDS Verified 06/16/22 09:45 FOLLOW-UP mushroom Allergy NEEDS Verified 06/16/22 09:45 FOLLOW-UP raspberry Allergy Other Verified 06/16/22 09:45 strawberry Allergy Other Verified 06/16/22 09:45 Surgical History Stented coronary artery (11/12/18) Social History Smoking Status: Former smoker ROS Constitutional Constitutional: Denies fatigue, fever(s), frequent falls, headache(s), increased appetite, lethargy or malaise Eyes Eyes: Denies exophthalmos, eye pain, floaters, foreign body, halo effect, irritation, itchy eyes or loss of central vision ENT HEENT: Denies headache(s), mouth pain, mucositis, nasal congestion, nasal discharge, nasal obstruction or nasal trauma Cardiovascular Cardiovascular: Reports edema; Denies dyspnea at rest, dyspnea on exertion, easily tiring during activity, flutter in chest, orthostatic symptoms, palpitations or paroxysmal nocturnal dyspnea Respiratory/Chest Respiratory/Chest: Denies excessive phlegm production, hemoptysis, hoarseness, inability to speak, mouth breathing or nail bed cyanosis Gastrointestinal Gastrointestinal: Denies dry heaves, dyspepsia, dysphagia, hematemesis, hematoch ezia, hemorrhoids, loose stools or melena Genitourinary Genitourinary: Denies flank pain, genital pain, hematuria, penile discharge or penile swelling Musculoskeletal Musculoskeletal: Denies loss of height, muscle cramps, muscle spasms, muscle weakness, myalgias, neck pain or numbness Integumentary Integumentary: Reports skin ulcer and skin swelling; Denies erythema, furuncle, hirsutism, jaundice, lesions or nail changes Neurologic Neurologic: Denies burning sensations, confusion, convulsions, disequilibrium, dizziness, focal weakness, frequent falls or headache(s) Psychiatric Psychiatric: Denies cognitive impairment, confusion, depression, difficulty concentrating, hallucinations, homicidal ideation, hopelessness or irritability Endocrine Endocrinology: Denies excessive sweating, fatigue, flushing, heat intolerance, increase in ring/shoe/hat size, palpitations or polydipsia Allergic/Immunologic Allergic/Immunologic: Denies tongue swelling, hives, urticaria, eczemia, wheezing or asthma Vital Signs Vital Signs Vital Signs: 06/16/22 09:15 Temperature 96.7 F L Temperature Source Temporal Pulse Rate 76 Respiratory Rate 20 H Blood Pressure 131/62 H Blood Pressure Mean 85 Blood Pressure Source Monitor Physical Exam Const alert, oriented x3 and no apparent distress General Appearance: cooperative, comfortable and well kempt HEENT normocephalic and head/scalp atraumatic Eyes EOMs intact bilaterally General Eye: normal appearance of both eyes Neck full ROM General: normal visual inspection Resp normal respiratory effort Effort and Inspection: able to speak in complete sentences Extremity General Extremity: edema Skin Wounds: wounds noted Neuro oriented x3, CN's II-XII intact bilaterally, moves all extremities and no focal motor deficits Psych mental status grossly normal, thought process normal, cooperative and affect normal Debridement Note Debridement Note Wound debrided: Right lower extremity cluster Type of Debridement: Excisional debridement Anesthesia Used: 4% Lidocaine Solution Depth: Down to and including healthy tissue Percentage of wound debrided: 100 Instrument Used: 5mm curette and 7mm curette Tissue Removed: Slough and devitalized tissue Severity: Fat Layer Exposed Amount of bleeding with debridement: Mild Bleeding Controlled with: Pressure Patient tolerated procedure: Patient tolerated procedure well Post-Debridement Measurements and Additional Note: Post-Debridement Measurements/Treatment WC - Nurse 1 - General Ulcer Assessment Start: 06/16/22 09:15 Freq: Status: Active Protocol: LINDA Activity Type Activity Date Activity User E-sign Co-sign Detail Recorded Client Recorded Date Recorded By Document 06/16/22 09:15 DL [id number] 06/16/22 09:38 DL 06/16/22 09:15 WC - Today's Visit Information Type of service Initial Visit Arrival Mode Wheelchair Transfer Assistance Manual Transfer Assist (Other) x2 Patient Identification Verified (Name & Yes ) Patient Requires Transmission-Based No Precautions Vital Signs Temperature (97.8 F-99.1 F) 96.7 F L Temperature Source Temporal Pulse Rate (60-100) 76 Pulse Location Monitor Respiratory Rate (12-18) 20 H Respiratory rate source Observation Blood Pressure (90/60-120/80) 131/62 H Blood Pressure Mean 85 Source Monitor History Since Last Visit- (Skip if this is Patient's initial visit) Left Footwear Other Footwear (Comment) Right Footwear Other Footwear (Comment) Other Footwear Boots Pain Scale: 0-10 Numeric Is Patient Pain Free? Yes Lower Extremity Assessment/ Foot Assessment/ Toe Nail Assessment Left -Popliteal Doppler Monophasic -Posterior Tibial Palpable No -Posterior Tibial Doppler Monophasic -Dorsalis Pedis Palpable No -Extremity Color Hyperpigmented, Hemosiderin -Hair Growth on Legs No -Hair Growth on Toes No -Temperature of Extremity Warm -Capillary Refill Greater than 3 Seconds -Dependent Rubor Yes -Blanched when Elevated No -Lipodermatosclerosis No -Other Deformity No -Prior Foot Ulcer No -Charcot Joint No -Prior Amputation No -Thick Yes -Discolored Yes -Deformed Yes -Improper Length & Hygeine Yes Right -Popliteal Doppler Monophasic -Posterior Tibial Palpable No -Posterior Tibial Doppler Monophasic -Dorsalis Pedis Palpable No -Extremity Color Hyperpigmented, Hemosiderin -Hair Growth on Legs No -Hair Growth on Toes No -Capillary Refill Greater than 3 Seconds -Dependent Rubor Yes -Blanched when Elevated No -Lipodermatosclerosis No -Other Deformity No -Prior Foot Ulcer No -Charcot Joint No -Prior Amputation No -Thick Yes -Discolored Yes -Deformed Yes -Improper Length & Hygeine Yes Neuropathy Assessment Feet - Top Side and Bottom <Entered> (a) Communication Assessment Preferred language Danish Business Services Clerk Required No Able to Read Yes Communication Tools None Caregiver Communication Skills Unable To Impairment Follow Commands Right Hearing Abillity Normal Left Hearing Abillity Normal Visual Assistive Devices Glasses Teaching Assessment Preferences Verbal,Written, Demonstration Barriers to Learning Knowledge Deficit Readiness To Learn Fair Willingness to Engage in Self Management Med Activies Readiness to Engage in Self Management Med Activities Anxiety Level Calm Cooperation Cooperative Perception Coherent Interest in Health Problem Asks Questions Education Importance Acknowledges Need Does Patient Smoke tobacco or other No substances Smoking Status Former smoker Is Patient Diabetic No Functional Assessment Recent Decline in Ability to Perform Denies Any Declines Culture/[employer]ist/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 Vegetable Washer to contact place of mandaen No Teaching: Wound Center Control Swelling with Leg Elevation -Person Taught Patient Diagnostic Tests Ordered -Person Taught Patient Dressing Your Wound -Person Taught Patient Discharge Instructions -Person Taught Patient *Welcome to the Wound Center -Person Taught Patient (a) 1 - + WC - Nurse 1 - General Ulcer Measurement Start: 06/16/22 09:15 Freq: Status: Active Protocol: Activity Type Activity Date Activity User E-sign Co-sign Detail Recorded Client Recorded Date Recorded By Document 06/16/22 09:15 DL [id number] 06/16/22 09:38 DL 06/16/22 09:15 Wound Center Nurse 1 #2 R Med Ankle -Current Size (cm) - Length 2 -Current Size (cm) - Width 4.5 -Current Size (cm) - Depth 0.1 -Total Square Cm 9.0 -Photo Taken Yes -Exudate Amt Large -Exudate Type Serosanguineous -Wound Margin Distinct, Outline Attached -Granulation Amt None Present (0 %) -Necrosis Amt Large (67-100%) -Necrotic Tissue Type Adherent Slough -Structure Exposed N/A -Texture ([place]-wound Skin Appearance) Localized Edema ,Scarring -Moisture ([place]-wound Skin Appearance) Weeping -Color ([place]-wound Skin Appearance) Hemosiderin Staining -Temperature ([place]-wound Skin No Abnormality Appearance) (Pt Warm) -Tenderness on Palpation ([place]-wound No Skin Appearance) -Ulcer Cleansing Soap and Water -Foul Odor after Cleansing No -Anesthetic Used 4% Lidocaine Solution #4 L Med Cluster -Current Size (cm) - Length 7.2 -Current Size (cm) - Width 8.2 -Current Size (cm) - Depth 0.1 -Total Square Cm 59.04 -Photo Taken Yes -Classification - Thickness Full Thickness without Exposed Support Structure -Exudate Amt Large -Exudate Type Serosanguineous -Wound Margin Distinct, Outline Attached -Granulation Amt Medium (34-66%) -Granulation Quality Red -Necrosis Amt Medium (34-66%) -Necrotic Tissue Type Adherent Slough -Structure Exposed N/A -Texture ([place]-wound Skin Appearance) Localized Edema ,Scarring -Moisture ([place]-wound Skin Appearance) Weeping,Dry/ Scaly -Color ([place]-wound Skin Appearance) Hemosiderin Staining -Temperature ([place]-wound Skin No Abnormality Appearance) (Pt Warm) -Tenderness on Palpation ([place]-wound No Skin Appearance) -Ulcer Cleansing Soap and Water -Foul Odor after Cleansing No -Anesthetic Used 4% Lidocaine Solution #3 R Lat foot -Current Size (cm) - Length 13.3 -Current Size (cm) - Width 4 -Current Size (cm) - Depth 0.1 -Total Square Cm 53.2 -Photo Taken Yes -Exudate Amt Large -Exudate Type Serosanguineous -Wound Margin Distinct, Outline Attached -Granulation Amt None Present (0 %) -Necrosis Amt Large (67-100%) -Necrotic Tissue Type Adherent Slough -Structure Exposed N/A -Texture ([place]-wound Skin Appearance) Localized Edema ,Scarring -Moisture ([place]-wound Skin Appearance) Weeping,Dry/ Scaly -Color ([place]-wound Skin Appearance) Hemosiderin Staining -Temperature ([place]-wound Skin No Abnormality Appearance) (Pt Warm) -Tenderness on Palpation ([place]-wound No Skin Appearance) -Ulcer Cleansing Soap and Water -Foul Odor after Cleansing No -Anesthetic Used 5% Lidocaine Gel #1 R Rinaldi Cluster -Current Size (cm) - Length 15.7 -Current Size (cm) - Width 17.9 -Current Size (cm) - Depth 0.1 -Total Square Cm 281.03 -Photo Taken Yes -Exudate Amt Medium -Exudate Type Serosanguineous -Wound Margin Distinct, Outline Attached -Granulation Amt None Present (0 %) -Necrosis Amt Large (67-100%) -Necrotic Tissue Type Adherent Slough -Structure Exposed N/A -Texture ([place]-wound Skin Appearance) Localized Edema ,Scarring -Moisture ([place]-wound Skin Appearance) Weeping,Dry/ Scaly -Color ([place]-wound Skin Appearance) Hemosiderin Staining -Temperature ([place]-wound Skin No Abnormality Appearance) (Pt Warm) -Tenderness on Palpation ([place]-wound No Skin Appearance) -Ulcer Cleansing Soap and Water -Foul Odor after Cleansing No -Anesthetic Used 5% Lidocaine Gel Right Calf (cm) 53.5 Right Ankle (cm) 34.3 Left Calf (cm) 47 Left Ankle (cm) 34 WC - Nurse 2 - General Ulcer CM Notes Start: 06/16/22 09:15 Freq: Status: Active Protocol: Activity Type Activity Date Activity User E-sign Co-sign Detail Recorded Client Recorded Date Recorded By Document 06/16/22 10:00 MW [id number] 06/16/22 10:16 MW 06/16/22 10:00 Wound Center Nurse 2 #2 R Med Ankle -Time 10:07 -Correct Patient Yes -Correct Side, Site, Position Yes -Correct Procedure Yes -Procedure Performed No -Tunneling No -Undermining/Tunneling No -Circular Undermining No -Wound/Ulcer Outcome Converted #4 L Med Cluster -Time 10:06 -Correct Patient Yes -Correct Side, Site, Position Yes -Correct Procedure Yes -Procedure Performed Yes -Type of Procedure Debridement -Clinical Debridement Subcutaneous -Tissue Removed Subcutaneous -Post Debridement (cm) - Length 6.0 -Post Debridement (cm) - Width 10.0 -Post Debridement (cm) - Depth 0.1 -Total Square (Post) (cm) 60.00 -Area of Debridement (cm) - Length 6.0 -Area of Debridement (cm) - Width 10.0 -Total Square (Area) (cm) 60.00 -Tunneling No -Undermining/Tunneling No -Circular Undermining No -Wound/Ulcer Outcome Not Healed -Ulcer Cleansing Rinsed/ Irrigated with Saline -Foul Odor after Cleansing No -Bioengineered Tissue No -Bleeding Controlled with Pressure -Treatment Response Procedure Tolerated Well -Offloading No -Debridement - Subq, 1st 20sq cm Yes #3 R Lat foot -Time 10:07 -Correct Patient Yes -Correct Side, Site, Position Yes -Correct Procedure Yes -Procedure Performed Yes -Type of Procedure Debridement -Clinical Debridement Subcutaneous -Tissue Removed Subcutaneous -Post Debridement (cm) - Length 9.5 -Post Debridement (cm) - Width 3.5 -Post Debridement (cm) - Depth 0.1 -Total Square (Post) (cm) 33.25 -Area of Debridement (cm) - Length 9.5 -Area of Debridement (cm) - Width 3.5 -Total Square (Area) (cm) 33.25 -Tunneling No -Undermining/Tunneling No -Circular Undermining No -Wound/Ulcer Outcome Not Healed -Ulcer Cleansing Rinsed/ Irrigated with Saline -Foul Odor after Cleansing No -Bioengineered Tissue No -Bleeding Controlled with Pressure -Treatment Response Procedure Tolerated Well -Offloading No -Debridement - Subq, 1st 20sq cm No -Debridement, SubQ, ea addt'l 20sq cm 1 or part thereof #1 R Rinaldi Cluster -Time 10:08 -Correct Patient Yes -Correct Side, Site, Position Yes -Correct Procedure Yes -Procedure Performed Yes -Type of Procedure Debridement -Clinical Debridement Subcutaneous -Tissue Removed Subcutaneous -Post Debridement (cm) - Length 15.0 -Post Debridement (cm) - Width 15.0 -Post Debridement (cm) - Depth 0.1 -Total Square (Post) (cm) 225.00 -Area of Debridement (cm) - Length 15.0 -Area of Debridement (cm) - Width 15.0 -Total Square (Area) (cm) 225.00 -Tunneling No -Undermining/Tunneling No -Circular Undermining No -Wound/Ulcer Outcome Not Healed -Ulcer Cleansing Rinsed/ Irrigated with Saline -Foul Odor after Cleansing No -Bioengineered Tissue No -Bleeding Controlled with Pressure -Treatment Response Procedure Tolerated Well -Offloading No -Debridement - Subq, 1st 20sq cm No Pain Scale: 0-10 Numeric Is Patient Pain Free? Yes WC - Nurse 3 - General Ulcer D/C NN Start: 06/16/22 09:15 Freq: Status: Active Protocol: Activity Type Activity Date Activity User E-sign Co-sign Detail Recorded Client Recorded Date Recorded By Document 06/16/22 10:45 MO [id number] 06/16/22 10:49 MO 06/16/22 10:45 Wound Care Nurse 3 #4 L Med Cluster -Ulcer Cleansing Rinsed/ Irrigated with Saline -Primary Dressing Applied Aquacel Extra -Primary Dressing Covered/Secured with Dry Gauze & Roll Gauze, Secured with Tape -Aquacel Extra 2 bilat -Multi-Layered Wrap Application Multi-Layer Comp - Bilat ($ ) Pain Scale: 0-10 Numeric Is Patient Pain Free? Yes WC - Visit Discharge Discharge Condition Stable Ambulatory Status Wheelchair Medication Reconcilliation completed & No provided to patient/care provider Clinical Summary of Care Provided Yes Notes: two aquacel extra, abds, kerlix and 3M bilat Additional Wound Wound debrided: Right lateral foot Type of Debridement: Excisional debridement Anesthesia Used: 4% Lidocaine Solution Depth: Down to and including healthy tissue Percentage of wound debrided: 100 Instrument Used: 5mm curette Tissue Removed: Slough and devitalized tissue Severity: Fat Layer Exposed Amount of bleeding with debridement: Mild Bleeding Controlled with: Pressure Patient tolerated procedure: Patient tolerated procedure well Additional Wound Wound debrided: Left lower extremity cluster Type of Debridement: Excisional debridement Anesthesia Used: 4% Lidocaine Solution Depth: Down to and including healthy tissue and in the subcutaneous layer Percentage of wound debrided: 100 Instrument Used: 5mm curette Tissue Removed: Slough and devitalized tissue Severity: Fat Layer Exposed Amount of bleeding with debridement: None Bleeding Controlled with: Pressure Patient tolerated procedure: Patient tolerated procedure well Charges/Coding Visit Charges Office Visits / Consults: [id number] OV L4 New Procedures Integumentary [id number]: [id number] Jaye subq tissue 20 sq cm/< Add On Codes: [id number] Jaye subq tissue add-on (x15. Additional square centimeter debrided, please refer to clinical note.) Assessment/Plan Assessment/Plan (1) Ulcer of left lower extremity with fat layer exposed: CODE(S): L97.922 - Non-pressure chronic ulcer of unspecified part of left lower leg with fat layer exposed (2) Ulcer of right lower extremity with fat layer exposed: CODE(S): L97.912 - Non-pressure chronic ulcer of unspecified part of right lower leg with fat layer exposed (3) Ulcer of right foot with fat layer exposed: CODE(S): L97.512 - Non-pressure 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 Significant bilateral lower extremity edema however not so much using from his ulcers. Aquasol extra to both ulcers with ABD over top. 3M wrap to both lower extremities for edema management. Change on Monday and then on Monday. Follow-up in a week. Protein supplements twice daily. Labs ordered including CBC, CMP, A1c, CRP, he will get this done at his facility. Will review when available. His questions were answered and he was advised to call with any further questions or concerns. Follow-up in a week. This note was generated with [employer] dictation software. It may contain incorrect words, spelling, and punctuation that were not noted in checking the note before signing.
[2022-06-23 11:11] VITALS: BP 114/60; PULSE 68; RESP 20; TEMP 36.3
--- NOTE | 2022-06-23 13:01 | PN.PCM_ITS ---
History of Present Illness Date of Service: 06/23/22 Chief Complaint: Bilateral lower extremity ulcers History of Wound: Mr. Boles is an 82-year-old currently residing at [facility] who presents due to nonhealing bilateral lower extremity ulceration. Has been present for some months. Has had some dressing changes done at his facility without any significant improvement. 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 Not very active. Significant bilateral lower extremity edema. He denies chills, fever or feeling of unwell. He states that his appetite is good. Progress of Wound: Has been applying Aquacel and 3M wraps which were changed at his assisted living facility. Some improvement in lower extremity swelling. New right medial foot ulceration. Objective Data Objective Data Vital Signs: Vital Signs Temp Pulse Resp BP 97.3 F L 68 20 H 114/60 06/23/22 11:11 06/23/22 11:11 06/23/22 11:11 06/23/22 11:11 Charges/Coding Procedures Integumentary 111xxx-113xx: [id number] Jaye subq tissue 20 sq cm/< Add On Codes: 35205 Jaye subq tissue add-on ( x16. Additional square centimeter debrided, please refer to clinical note.) Physical Exam Const alert, oriented x3 and no apparent distress General Appearance: cooperative, comfortable and well kempt HEENT normocephalic and head/scalp atraumatic Eyes EOMs intact bilaterally General Eye: normal appearance of both eyes Neck full ROM General: normal visual inspection Resp normal respiratory effort Effort and Inspection: able to speak in complete sentences Extremity General Extremity: edema Skin Wounds: wounds noted Neuro oriented x3, CN's II-XII intact bilaterally, moves all extremities and no focal motor deficits Psych mental status grossly normal, thought process normal, cooperative and affect normal Debridement Note Debridement Note Wound debrided: Right lower extremity cluster Type of Debridement: Excisional debridement Anesthesia Used: 4% Lidocaine Solution Depth: Down to and including healthy tissue Percentage of wound debrided: 100 Instrument Used: 5mm curette Tissue Removed: Slough and devitalized tissue Severity: Fat Layer Exposed Amount of bleeding with debridement: Mild Bleeding Controlled with: Pressure Patient tolerated procedure: Patient tolerated procedure well Post-Debridement Measurements and Additional Note: Post-Debridement Measurements/Treatment WC - Nurse 1 - General Ulcer Assessment Start: 06/16/22 09:15 Freq: Status: Active Protocol: WC.LOWEXT Activity Type Activity Date Activity User E-sign Co-sign Detail Recorded Client Recorded Date Recorded By Document 06/16/22 09:15 DL [id number] 06/16/22 09:38 DL Document 06/23/22 11:11 DL [id number] 06/23/22 11:22 DL 06/16/22 06/23/22 09:15 11:11 - Today's Visit Information Type of service Initial Visit Follow-up Visit (Physician/BUTTON STATION WORKER ) Arrival Mode Wheelchair Wheelchair Transfer Assistance Manual Manual Transfer Assist (Other) x2 x2 Patient Identification Verified (Name & Yes Yes ) Patient Requires Transmission-Based No No Precautions Vital Signs Temperature (97.8 F-99.1 F) 96.7 F L 97.3 F L Temperature Source Temporal Temporal Pulse Rate (60-100) 76 68 Pulse Location Monitor Monitor Respiratory Rate (12-18) 20 H 20 H Respiratory rate source Observation Observation Blood Pressure (90/60-120/80) 131/62 H 114/60 Blood Pressure Mean (mm Hg) 85 78 Source Monitor Monitor History Since Last Visit- (Skip if this is Patient's initial visit) Have you changed medications since your No last visit? Any new allergies or adverse reactions No Had a fall/change in ADL's that may No increase risk of falls Signs or symptoms of abuse and/or No neglect since last visit Have you been in the hospital since your No last visit? Has dressing in place as prescribed Yes Has compression in place as prescribed Yes Has offloadiing in place as prescribed N/A Left Footwear Other Footwear (Comment) Right Footwear Other Footwear (Comment) Other Footwear Boots Pain Scale: 0-10 Numeric Is Patient Pain Free? Yes Yes Lower Extremity Assessment/ Foot Assessment/ Toe Nail Assessment Left -Popliteal Doppler Monophasic -Posterior Tibial Palpable No -Posterior Tibial Doppler Monophasic -Dorsalis Pedis Palpable No -Extremity Color Hyperpigmented, Hemosiderin -Hair Growth on Legs No -Hair Growth on Toes No -Temperature of Extremity Warm -Capillary Refill Greater than 3 Seconds -Dependent Rubor Yes -Blanched when Elevated No -Lipodermatosclerosis No -Other Deformity No -Prior Foot Ulcer No -Charcot Joint No -Prior Amputation No -Thick Yes -Discolored Yes -Deformed Yes -Improper Length & Hygeine Yes Right -Popliteal Doppler Monophasic -Posterior Tibial Palpable No -Posterior Tibial Doppler Monophasic -Dorsalis Pedis Palpable No -Extremity Color Hyperpigmented, Hemosiderin -Hair Growth on Legs No -Hair Growth on Toes No -Capillary Refill Greater than 3 Seconds -Dependent Rubor Yes -Blanched when Elevated No -Lipodermatosclerosis No -Other Deformity No -Prior Foot Ulcer No -Charcot Joint No -Prior Amputation No -Thick Yes -Discolored Yes -Deformed Yes -Improper Length & Hygeine Yes Neuropathy Assessment Feet - Top Side and Bottom <Entered> (a) Communication Assessment Preferred language Ghanaian Cotton Breeder Required No Able to Read Yes Communication Tools None Caregiver Communication Skills Unable To Impairment Follow Commands Right Hearing Abillity Normal Left Hearing Abillity Normal Visual Assistive Devices Glasses Teaching Assessment Preferences Verbal,Written, Demonstration Barriers to Learning Knowledge Deficit Readiness To Learn Fair Willingness to Engage in Self Management Med Activies Readiness to Engage in Self Management Med Activities Anxiety Level Calm Cooperation Cooperative Perception Coherent Interest in Health Problem Asks Questions Education Importance Acknowledges Need Does Patient Smoke tobacco or other No substances Smoking Status Former smoker Is Patient Diabetic No Functional Assessment Recent Decline in Ability to Perform Denies Any Declines Culture/Anglican/Operations Support Specialist Cultural/Anglican Needs that may affect No Treatment Plan Would you allow our hospital maintenance journeyman to No meet you for the purpose of spiritual/ emotional support? Operations Support Specialist to contact place of buddhism No Teaching: Wound Center Control Swelling with Leg Elevation -Person Taught Patient Diagnostic Tests Ordered -Person Taught Patient Dressing Your Wound -Person Taught Patient Discharge Instructions -Person Taught Patient *Welcome to the Wound Center -Person Taught Patient (a) 1 - + WC - Nurse 1 - General Ulcer Measurement Start: 06/16/22 09:15 Freq: Status: Active Protocol: Activity Type Activity Date Activity User E-sign Co-sign Detail Recorded Client Recorded Date Recorded By Document 06/16/22 09:15 DL [id number] 06/16/22 09:38 DL Document 06/23/22 11:11 DL [id number] 06/23/22 11:22 DL 06/16/22 06/23/22 09:15 11:11 Wound Center Nurse 1 #4 L Med Cluster -Current Size (cm) - Length 7.2 16 -Current Size (cm) - Width 8.2 10 -Current Size (cm) - Depth 0.1 0.1 -Total Square Cm 59.04 160 -Photo Taken Yes No -Classification - Thickness Full Thickness without Exposed Support Structure -Exudate Amt Large Medium -Exudate Type Serosanguineous Serosanguineous -Wound Margin Distinct, Distinct, Outline Outline Attached Attached -Granulation Amt Medium (34-66%) Medium (34-66%) -Granulation Quality [place],Red -Necrosis Amt Medium (34-66%) Medium (34-66%) -Necrotic Tissue Type Adherent Slough Adherent Slough -Structure Exposed N/A N/A -Texture ([place]-wound Skin Appearance) Localized Edema Localized Edema ,Scarring ,Scarring -Moisture ([place]-wound Skin Appearance) Weeping,Dry/ Dry/Scaly Scaly -Color ([place]-wound Skin Appearance) Hemosiderin Hemosiderin Staining Staining -Temperature ([place]-wound Skin No Abnormality No Abnormality Appearance) (Pt Warm) (Pt Warm) -Tenderness on Palpation ([place]-wound No Skin Appearance) -Ulcer Cleansing Soap and Water Soap and Water -Foul Odor after Cleansing No No -Anesthetic Used 4% Lidocaine 4% Lidocaine Solution Solution #3 R Lat foot -Current Size (cm) - Length 13.3 9.5 -Current Size (cm) - Width 4 3.2 -Current Size (cm) - Depth 0.1 0.1 -Total Square Cm 53.2 30.40 -Photo Taken Yes No -Exudate Amt Large Large -Exudate Type Serosanguineous Serosanguineous -Wound Margin Distinct, Indistinct, Non Outline -Visible Attached -Granulation Amt None Present (0 None Present (0 %) %) -Necrosis Amt Large (67-100%) Large (67-100%) -Necrotic Tissue Type Adherent Slough Adherent Slough -Structure Exposed N/A N/A -Texture ([place]-wound Skin Appearance) Localized Edema Localized Edema ,Scarring ,Scarring -Moisture ([place]-wound Skin Appearance) Weeping,Dry/ Maceration Scaly -Color ([place]-wound Skin Appearance) Hemosiderin Hemosiderin Staining Staining -Temperature ([place]-wound Skin No Abnormality No Abnormality Appearance) (Pt Warm) (Pt Warm) -Tenderness on Palpation ([place]-wound No Skin Appearance) -Ulcer Cleansing Soap and Water Soap and Water -Foul Odor after Cleansing No No -Anesthetic Used 5% Lidocaine 4% Lidocaine Gel Solution #2 R Med Ankle -Current Size (cm) - Length 2 2.8 -Current Size (cm) - Width 4.5 4 -Current Size (cm) - Depth 0.1 0.1 -Total Square Cm 9.0 11.2 -Photo Taken Yes No -Exudate Amt Large Large -Exudate Type Serosanguineous Serous -Wound Margin Distinct, Distinct, Outline Outline Attached Attached -Granulation Amt None Present (0 None Present (0 %) %) -Necrosis Amt Large (67-100%) Large (67-100%) -Necrotic Tissue Type Adherent Slough Adherent Slough -Structure Exposed N/A -Texture ([place]-wound Skin Appearance) Localized Edema Scarring ,Scarring -Moisture ([place]-wound Skin Appearance) Weeping Maceration -Color ([place]-wound Skin Appearance) Hemosiderin Hemosiderin Staining Staining -Temperature ([place]-wound Skin No Abnormality No Abnormality Appearance) (Pt Warm) (Pt Warm) -Tenderness on Palpation ([place]-wound No No Skin Appearance) -Ulcer Cleansing Soap and Water Soap and Water -Foul Odor after Cleansing No No -Anesthetic Used 4% Lidocaine 4% Lidocaine Solution Solution #1 R Sinclair Cluster -Current Size (cm) - Length 15.7 17 -Current Size (cm) - Width 17.9 15 -Current Size (cm) - Depth 0.1 0.1 -Total Square Cm 281.03 255 -Photo Taken Yes No -Exudate Amt Medium Large -Exudate Type Serosanguineous Serosanguineous -Wound Margin Distinct, Distinct, Outline Outline Attached Attached -Granulation Amt None Present (0 Large (67-100%) %) -Granulation Quality Red -Necrosis Amt Large (67-100%) Large (67-100%) -Necrotic Tissue Type Adherent Slough Adherent Slough -Structure Exposed N/A N/A -Texture ([place]-wound Skin Appearance) Localized Edema Localized Edema ,Scarring ,Scarring -Moisture ([place]-wound Skin Appearance) Weeping,Dry/ Dry/Scaly Scaly -Color ([place]-wound Skin Appearance) Hemosiderin Hemosiderin Staining Staining -Temperature ([place]-wound Skin No Abnormality No Abnormality Appearance) (Pt Warm) (Pt Warm) -Tenderness on Palpation ([place]-wound No Skin Appearance) -Ulcer Cleansing Soap and Water Soap and Water -Foul Odor after Cleansing No No -Anesthetic Used 5% Lidocaine 4% Lidocaine Gel Solution Right Calf (cm) 53.5 51.5 Right Ankle (cm) 34.3 34 Left Calf (cm) 47 42 Left Ankle (cm) 34 36 WC - Nurse 2 - General Ulcer CM Notes Start: 06/16/22 09:15 Freq: Status: Active Protocol: Activity Type Activity Date Activity User E-sign Co-sign Detail Recorded Client Recorded Date Recorded By Document 06/16/22 10:00 MW [id number] 06/16/22 10:16 MW Edit Result 06/16/22 10:00 MW (1) [id number] 06/17/22 07:09 PL Document 06/23/22 11:35 MW [id number] 06/23/22 11:51 MW (1) #3 R Lat foot - Debridement, SubQ, ea addt'l 20sq cm 1 => 15 or part thereof 06/16/22 06/23/22 10:00 11:35 Wound Center Nurse 2 #4 L Med Cluster -Time 10:06 11:35 -Correct Patient Yes Yes -Correct Side, Site, Position Yes Yes -Correct Procedure Yes Yes -Procedure Performed Yes Yes -Type of Procedure Debridement Debridement -Clinical Debridement Subcutaneous Subcutaneous -Tissue Removed Subcutaneous Subcutaneous -Post Debridement (cm) - Length 6.0 4.0 -Post Debridement (cm) - Width 10.0 8.0 -Post Debridement (cm) - Depth 0.1 0.2 -Total Square (Post) (cm) 60.00 32.00 -Area of Debridement (cm) - Length 6.0 4.0 -Area of Debridement (cm) - Width 10.0 8.0 -Total Square (Area) (cm) 60.00 32.00 -Tunneling No No -Undermining/Tunneling No No -Circular Undermining No No -Wound/Ulcer Outcome Not Healed Not Healed -Ulcer Cleansing Rinsed/ Rinsed/ Irrigated with Irrigated with Saline Saline -Foul Odor after Cleansing No No -Bioengineered Tissue No No -Bleeding Controlled with Pressure Pressure -Treatment Response Procedure Procedure Tolerated Well Tolerated Well -Offloading No No -Debridement - Subq, 1st 20sq cm Yes Yes -Debridement, SubQ, ea addt'l 20sq cm 1 or part thereof #3 R Lat foot -Time 10:07 11:36 -Correct Patient Yes Yes -Correct Side, Site, Position Yes Yes -Correct Procedure Yes Yes -Procedure Performed Yes Yes -Type of Procedure Debridement Debridement -Clinical Debridement Subcutaneous Subcutaneous -Tissue Removed Subcutaneous Subcutaneous -Post Debridement (cm) - Length 9.5 9.0 -Post Debridement (cm) - Width 3.5 3.5 -Post Debridement (cm) - Depth 0.1 0.1 -Total Square (Post) (cm) 33.25 31.50 -Area of Debridement (cm) - Length 9.5 9.0 -Area of Debridement (cm) - Width 3.5 3.5 -Total Square (Area) (cm) 33.25 31.50 -Tunneling No No -Undermining/Tunneling No No -Circular Undermining No No -Wound/Ulcer Outcome Not Healed Not Healed -Ulcer Cleansing Rinsed/ Rinsed/ Irrigated with Irrigated with Saline Saline -Foul Odor after Cleansing No No -Bioengineered Tissue No No -Bleeding Controlled with Pressure Pressure -Treatment Response Procedure Procedure Tolerated Well Tolerated Well -Offloading No No -Debridement - Subq, 1st 20sq cm No No -Debridement, SubQ, ea addt'l 20sq cm 15 or part thereof #2 R Med Ankle -Time 10:07 11:36 -Correct Patient Yes Yes -Correct Side, Site, Position Yes Yes -Correct Procedure Yes Yes -Procedure Performed No Yes -Type of Procedure Debridement -Clinical Debridement Subcutaneous -Tissue Removed Subcutaneous -Post Debridement (cm) - Length 2.5 -Post Debridement (cm) - Width 5.0 -Post Debridement (cm) - Depth 0.1 -Total Square (Post) (cm) 12.50 -Area of Debridement (cm) - Length 2.5 -Area of Debridement (cm) - Width 5.0 -Total Square (Area) (cm) 12.50 -Tunneling No No -Undermining/Tunneling No No -Circular Undermining No No -Wound/Ulcer Outcome Converted Not Healed -Ulcer Cleansing Rinsed/ Irrigated with Saline -Foul Odor after Cleansing No -Bioengineered Tissue No -Bleeding Controlled with Pressure -Treatment Response Procedure Tolerated Well -Offloading No -Debridement - Subq, 1st 20sq cm No #1 R Sinclair Cluster -Time 10:08 11:36 -Correct Patient Yes Yes -Correct Side, Site, Position Yes Yes -Correct Procedure Yes Yes -Procedure Performed Yes Yes -Type of Procedure Debridement Debridement -Clinical Debridement Subcutaneous Subcutaneous -Tissue Removed Subcutaneous Subcutaneous -Post Debridement (cm) - Length 15.0 15.0 -Post Debridement (cm) - Width 15.0 17.5 -Post Debridement (cm) - Depth 0.1 0.1 -Total Square (Post) (cm) 225.00 262.50 -Area of Debridement (cm) - Length 15.0 15.0 -Area of Debridement (cm) - Width 15.0 17.5 -Total Square (Area) (cm) 225.00 262.50 -Tunneling No No -Undermining/Tunneling No No -Circular Undermining No No -Wound/Ulcer Outcome Not Healed Not Healed -Ulcer Cleansing Rinsed/ Rinsed/ Irrigated with Irrigated with Saline Saline -Foul Odor after Cleansing No No -Bioengineered Tissue No No -Bleeding Controlled with Pressure Pressure -Treatment Response Procedure Procedure Tolerated Well Tolerated Well -Offloading No No -Debridement - Subq, 1st 20sq cm No No Pain Scale: 0-10 Numeric Is Patient Pain Free? Yes Yes - Nurse 3 - General Ulcer D/C NN Start: 06/16/22 09:15 Freq: Status: Active Protocol: Activity Type Activity Date Activity User E-sign Co-sign Detail Recorded Client Recorded Date Recorded By Document 06/16/22 10:45 VA [id number] 06/16/22 10:49 VA Document 06/23/22 11:58 [id number] 06/23/22 12:01 06/16/22 06/23/22 10:45 11:58 Wound Care Nurse 3 #4 L Med Cluster -Ulcer Cleansing Rinsed/ Soap and Water Irrigated with Saline -Foul Odor after Cleansing No -Primary Dressing Applied Aquacel Extra Aquacel Extra -Other Dressing ABD -Primary Dressing Covered/Secured with Dry Gauze & Dry Gauze & Roll Gauze, Roll Gauze, Secured with Secured with Tape Tape -Aquacel Extra 2 1 #3 R Lat foot -Ulcer Cleansing Soap and Water -Foul Odor after Cleansing No -Primary Dressing Applied Aquacel Extra -Primary Dressing Covered/Secured with Dry Gauze & Roll Gauze, Secured with Tape -Aquacel Extra 1 #2 R Med Ankle -Ulcer Cleansing Soap and Water -Foul Odor after Cleansing No -Other Dressing aquacel Ex -Primary Dressing Covered/Secured with Dry Gauze & Roll Gauze, Secured with Tape #1 R Sinclair Cluster -Ulcer Cleansing Soap and Water -Foul Odor after Cleansing No -Other Dressing aqaucel EX -Primary Dressing Covered/Secured with Dry Gauze & Roll Gauze, Secured with Tape bilat -Multi-Layered Wrap Application Multi-Layer Multi-Layer Comp - Bilat ($ Comp - Bilat ($ ) ) Treatment Response Procedure Tolerated Well Pain Scale: 0-10 Numeric Is Patient Pain Free? 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 Facility Orders Sent Yes Additional Wound Wound debrided: Right lateral foot Type of Debridement: Excisional debridement Anesthesia Used: 4% Lidocaine Solution Depth: Down to and including healthy tissue Percentage of wound debrided: 100 Instrument Used: 5mm curette Tissue Removed: Slough and devitalized tissue Severity: Fat Layer Exposed Amount of bleeding with debridement: Mild Bleeding Controlled with: Pressure Patient tolerated procedure: Patient tolerated procedure well Additional Wound Wound debrided: Right medial foot Type of Debridement: Excisional debridement Anesthesia Used: 4% Lidocaine Solution Depth: Down to and including healthy tissue and in the subcutaneous layer Percentage of wound debrided: 100 Instrument Used: 5mm curette Tissue Removed: Slough and devitalized tissue Severity: Fat Layer Exposed Amount of bleeding with debridement: Mild Bleeding Controlled with: Pressure Additional Wound Wound debrided: Left sinclair cluster Type of Debridement: Excisional debridement Anesthesia Used: 4% Lidocaine Solution Depth: Down to and including healthy tissue and in the subcutaneous layer Percentage of wound debrided: 100 Instrument Used: 5mm curette Tissue Removed: Slough and devitalized tissue Severity: Fat Layer Exposed Amount of bleeding with debridement: Mild Bleeding Controlled with: Pressure Patient tolerated procedure: Patient tolerated procedure well Assessment/Plan Assessment/Plan (1) Ulcer of left lower extremity with fat layer exposed: CODE(S): L97.922 - Non-pressure chronic ulcer of unspecified part of left lower leg with fat layer exposed (2) Ulcer of right lower extremity with fat layer exposed: CODE(S): L97.912 - Non-pressure chronic ulcer of unspecified part of right lower leg with fat layer exposed (3) Ulcer of right foot with fat layer exposed: CODE(S): L97.512 - Non-pressure 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 Continue Aquacel extra to all ulcers with ABD over top. 3M wrap to both lower extremities for edema management. Change on Monday and then on Monday. Follow-up in a week. Protein supplements twice daily. Labs have been ordered including CBC, CMP, A1c, CRP, he will get this done at his facility. Will review when available. His questions were answered and he was advised to call with any further questions or concerns. Follow-up in a week. This note was generated with AgentBridge dictation software. It may contain incorrect words, spelling, and punctuation that were not noted in checking the note before signing.
== END 2022-06-27 23:59 | disposition home or self-care (01) ==
LOC: WC 11:00
PROVIDERS: PCP Family Medicine; Visit Provider Internal Medicine
DX: I87.2 Venous insufficiency (chronic) (peripheral) (principal); L97.822 Non-pressure chronic ulcer of other part of left lower leg with fat layer exposed; L97.512 Non-pressure chronic ulcer of other part of right foot with fat layer exposed; L97.812 Non-pressure chronic ulcer of other part of right lower leg with fat layer exposed; I25.10 Atherosclerotic heart disease of native coronary artery without angina pectoris; Z87.891 Personal history of nicotine dependence; R60.0 Localized edema; G62.9 Polyneuropathy, unspecified; R73.03 Prediabetes; N40.0 Benign prostatic hyperplasia without lower urinary tract symptoms; I25.2 Old myocardial infarction; E78.5 Hyperlipidemia, unspecified; Z79.899 Other long term (current) drug therapy; Z79.82 Long term (current) use of aspirin; Z79.02 Long term (current) use of antithrombotics/antiplatelets; M79.89 Other specified soft tissue disorders
CPT/HCPCS: 11042; 11045; 29581; 99203; G0463

== ENCOUNTER 2022-07-14 10:15 | Outpatient (RCR) | payer MEDICARE, MEDICAID, SELFPAY ==
[2022-06-28 00:09] VITALS: BP 114/60; PULSE 68; RESP 20; TEMP 36.3
[2022-06-30 09:51] VITALS: BP 126/66; PULSE 76; RESP 16; TEMP 36.4
--- NOTE | 2022-06-30 12:22 | PN.PCM_ITS ---
History of Present Illness Date of Service: 06/30/22 Chief Complaint: Bilateral lower extremity ulcers History of Wound: Mr. Boles is an 82-year-old currently residing at [facility] who presents due to nonhealing bilateral lower extremity ulceration. Has been present for some months. Has had some dressing changes done at his facility without any significant improvement. 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 Not very active. Significant bilateral lower extremity edema. He denies chills, fever or feeling of unwell. He states that his appetite is good. Progress of Wound: No new concerns at this time. Some improvement. Objective Data Objective Data Vital Signs: Vital Signs Temp Pulse Resp BP O2 Del Method 97.5 F L 76 16 126/66 H Room Air 06/30/22 09:51 06/30/22 09:51 06/30/22 09:51 06/30/22 09:51 06/30/22 09:51 Oxygen Delivery Method Room Air Charges/Coding Procedures Integumentary 111xxx-113xx: 69179 Jaye subq tissue 20 sq cm/< Add On Codes: 84926 Jaye subq tissue add-on (x15. Additional square centimeter debrided, please refer to clinical note) Physical Exam Const alert, oriented x3 and no apparent distress General Appearance: cooperative, comfortable and well kempt HEENT normocephalic and head/scalp atraumatic Eyes EOMs intact bilaterally General Eye: normal appearance of both eyes Neck full ROM General: normal visual inspection Resp normal respiratory effort Effort and Inspection: able to speak in complete sentences Extremity General Extremity: edema Skin Wounds: wounds noted Neuro oriented x3, CN's II-XII intact bilaterally, moves all extremities and no focal motor deficits Psych mental status grossly normal, thought process normal, cooperative and affect normal Debridement Note Debridement Note Wound debrided: Right sinclair cluster Type of Debridement: Excisional debridement Anesthesia Used: 4% Lidocaine Solution Depth: Down to and including healthy tissue and in the subcutaneous layer Percentage of wound debrided: 100 Instrument Used: 7mm curette Tissue Removed: Slough and devitalized tissue Severity: Fat Layer Exposed Amount of bleeding with debridement: Mild Bleeding Controlled with: Pressure Patient tolerated procedure: Patient tolerated procedure well Post-Debridement Measurements and Additional Note: Post-Debridement Measurements/Treatment WC - Nurse 1 - General Ulcer Assessment Start: 06/30/22 09:43 Freq: Status: Active Protocol: LINDA Activity Type Activity Date Activity User E-sign Co-sign Detail Recorded Client Recorded Date Recorded By Document 06/30/22 09:51 [facility] [id number] 06/30/22 10:07 [facility] 06/30/22 09:51 - Today's Visit Information Type of service Follow-up Visit (Physician/[employer]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 ) Arrival Mode Wheelchair Transfer Assistance Other Transfer Assist (Other) 2 Patient Identification Verified (Name & Yes ) Patient Requires Transmission-Based No Precautions Vital Signs Temperature (97.8 F-99.1 F) 97.5 F L Temperature Source Temporal Pulse Rate (60-100) 76 Pulse Location Monitor Respiratory Rate (12-18) 16 Respiratory rate source Observation Oxygen Delivery Method Room Air Blood Pressure (90/60-120/80) 126/66 H Blood Pressure Mean (mm Hg) 86 Source Monitor Position Sitting Blood Pressure Location Right Arm History Since Last Visit- (Skip if this is Patient's initial visit) Have you changed medications since your No last visit? Any new allergies or adverse reactions No Had a fall/change in ADL's that may No increase risk of falls Signs or symptoms of abuse and/or No neglect since last visit Have you been in the hospital since your No last visit? Has dressing in place as prescribed Yes Has compression in place as prescribed Yes Has offloadiing in place as prescribed N/A Experienced any changes in pain level or No management Left Footwear Regular Shoe Right Footwear Regular Shoe Pain Scale: 0-10 Numeric Is Patient Pain Free? Yes - Nurse 1 - General Ulcer Measurement Start: 06/30/22 09:43 Freq: Status: Active Protocol: Activity Type Activity Date Activity User E-sign Co-sign Detail Recorded Client Recorded Date Recorded By Document 06/30/22 09:51 [facility] [id number] 06/30/22 10:07 [facility] 06/30/22 09:51 Wound Center Nurse 1 #4 L Med Cluster -Combined with other wound No -Current Size (cm) - Length 14 -Current Size (cm) - Width 8.2 -Current Size (cm) - Depth 0.1 -Total Square Cm 114.8 -Date of Last Picture (Recall this 06/30/22 field) -Photo Taken Yes -Epithelialization None Present -Tunneling No -Undermining/Tunneling No -Circular Undermining No -Exudate Amt Medium -Exudate Type Serosanguineous -Wound Margin Flat & Intact -Granulation Amt Small (1-33%) -Granulation Quality Red -Slough/Fibrin Yes -Necrosis Amt Large (67-100%) -Necrotic Tissue Type Adherent Slough -Texture ([place]-wound Skin Appearance) Assessed, Scarring -Moisture ([place]-wound Skin Appearance) Assessed,Dry/ Scaly -Color ([place]-wound Skin Appearance) Assessed -Temperature ([place]-wound Skin No Abnormality Appearance) (Pt Warm) -Tenderness on Palpation ([place]-wound No Skin Appearance) -Ulcer Cleansing Soap and Water -Foul Odor after Cleansing No -Anesthetic Used 4% Lidocaine Solution #3 R Lat foot -Combined with other wound No -Current Size (cm) - Length 10 -Current Size (cm) - Width 3.4 -Current Size (cm) - Depth 0.1 -Total Square Cm 34.0 -Date of Last Picture (Recall this 06/30/22 field) -Photo Taken Yes -Epithelialization None Present -Tunneling No -Undermining/Tunneling No -Circular Undermining No -Exudate Amt Medium -Exudate Type Serosanguineous -Wound Margin Flat & Intact -Granulation Amt None Present (0 %) -Slough/Fibrin Yes -Necrosis Amt Large (67-100%) -Necrotic Tissue Type Adherent Slough -Texture ([place]-wound Skin Appearance) Assessed, Scarring -Moisture ([place]-wound Skin Appearance) Assessed,Dry/ Scaly -Color ([place]-wound Skin Appearance) Assessed -Temperature ([place]-wound Skin No Abnormality Appearance) (Pt Warm) -Tenderness on Palpation ([place]-wound No Skin Appearance) -Ulcer Cleansing Soap and Water -Foul Odor after Cleansing No -Anesthetic Used 4% Lidocaine Solution #2 R Med Ankle -Combined with other wound No -Current Size (cm) - Length 4.6 -Current Size (cm) - Width 2.4 -Current Size (cm) - Depth 0.1 -Total Square Cm 11.04 -Date of Last Picture (Recall this 06/30/22 field) -Photo Taken Yes -Epithelialization None Present -Tunneling No -Undermining/Tunneling No -Circular Undermining No -Exudate Amt Medium -Exudate Type Serosanguineous -Wound Margin Distinct, Outline Attached -Granulation Amt None Present (0 %) -Slough/Fibrin Yes -Necrosis Amt Large (67-100%) -Necrotic Tissue Type Adherent Slough -Texture ([place]-wound Skin Appearance) Assessed, Scarring -Moisture ([place]-wound Skin Appearance) Assessed,Dry/ Scaly -Color ([place]-wound Skin Appearance) Assessed -Temperature ([place]-wound Skin No Abnormality Appearance) (Pt Warm) -Tenderness on Palpation ([place]-wound No Skin Appearance) -Ulcer Cleansing Soap and Water -Foul Odor after Cleansing No -Anesthetic Used 4% Lidocaine Solution #1 R Sinclair Cluster -Combined with other wound No -Current Size (cm) - Length 14.6 -Current Size (cm) - Width 17.2 -Current Size (cm) - Depth 0.1 -Total Square Cm 251.12 -Date of Last Picture (Recall this 06/30/22 field) -Photo Taken Yes -Epithelialization None Present -Tunneling No -Undermining/Tunneling No -Circular Undermining No -Exudate Amt Large -Exudate Type Serosanguineous -Wound Margin Flat & Intact -Granulation Amt Medium (34-66%) -Granulation Quality Red -Slough/Fibrin Yes -Necrosis Amt Medium (34-66%) -Necrotic Tissue Type Adherent Slough -Texture ([place]-wound Skin Appearance) Assessed, Scarring -Moisture ([place]-wound Skin Appearance) Assessed,Dry/ Scaly -Color ([place]-wound Skin Appearance) Assessed -Temperature ([place]-wound Skin No Abnormality Appearance) (Pt Warm) -Tenderness on Palpation ([place]-wound No Skin Appearance) -Ulcer Cleansing Soap and Water -Foul Odor after Cleansing No -Anesthetic Used 4% Lidocaine Solution Lower Limb Edema Present Yes Right Calf (cm) 32.6 Right Ankle (cm) 52.8 Left Calf (cm) 33.8 Left Ankle (cm) 45 WC - Nurse 2 - General Ulcer CM Notes Start: 06/30/22 09:43 Freq: Status: Active Protocol: Activity Type Activity Date Activity User E-sign Co-sign Detail Recorded Client Recorded Date Recorded By Document 06/30/22 10:34 [facility] [id number] 06/30/22 10:48 [facility] 06/30/22 10:34 Wound Center Nurse 2 #4 L Med Cluster -Time 10:35 -Correct Patient Yes -Correct Side, Site, Position Yes -Correct Procedure Yes -Procedure Performed Yes -Type of Procedure Debridement -Clinical Debridement Subcutaneous -Tissue Removed Subcutaneous -Post Debridement (cm) - Length 3.0 -Post Debridement (cm) - Width 6.5 -Post Debridement (cm) - Depth 0.1 -Total Square (Post) (cm) 19.50 -Area of Debridement (cm) - Length 3.0 -Area of Debridement (cm) - Width 6.5 -Total Square (Area) (cm) 19.50 -Tunneling No -Undermining/Tunneling No -Circular Undermining No -Wound/Ulcer Outcome Not Healed -Ulcer Cleansing Rinsed/ Irrigated with Saline -Foul Odor after Cleansing No -Bioengineered Tissue No -Bleeding Controlled with Pressure -Treatment Response Procedure Tolerated Well -Offloading No -Debridement - Subq, 1st 20sq cm Yes -Debridement, SubQ, ea addt'l 20sq cm 15 or part thereof #3 R Lat foot -Time 10:35 -Correct Patient Yes -Correct Side, Site, Position Yes -Correct Procedure Yes -Procedure Performed Yes -Type of Procedure Debridement -Clinical Debridement Subcutaneous -Tissue Removed Subcutaneous -Post Debridement (cm) - Length 8.5 -Post Debridement (cm) - Width 4.0 -Post Debridement (cm) - Depth 0.1 -Total Square (Post) (cm) 34.00 -Area of Debridement (cm) - Length 8.5 -Area of Debridement (cm) - Width 4.0 -Total Square (Area) (cm) 34.00 -Tunneling No -Undermining/Tunneling No -Circular Undermining No -Wound/Ulcer Outcome Not Healed -Ulcer Cleansing Rinsed/ Irrigated with Saline -Foul Odor after Cleansing No -Bioengineered Tissue No -Bleeding Controlled with Pressure -Treatment Response Procedure Tolerated Well -Offloading No -Debridement - Subq, 1st 20sq cm No #2 R Med Ankle -Time 10:35 -Correct Patient Yes -Correct Side, Site, Position Yes -Correct Procedure Yes -Procedure Performed Yes -Type of Procedure Debridement -Clinical Debridement Subcutaneous -Tissue Removed Subcutaneous -Post Debridement (cm) - Length 2.5 -Post Debridement (cm) - Width 5.0 -Post Debridement (cm) - Depth 0.1 -Total Square (Post) (cm) 12.50 -Area of Debridement (cm) - Length 2.5 -Area of Debridement (cm) - Width 5.0 -Total Square (Area) (cm) 12.50 -Tunneling No -Undermining/Tunneling No -Circular Undermining No -Wound/Ulcer Outcome Not Healed -Ulcer Cleansing Rinsed/ Irrigated with Saline -Foul Odor after Cleansing No -Bioengineered Tissue No -Bleeding Controlled with Pressure -Treatment Response Procedure Tolerated Well -Offloading No -Debridement - Subq, 1st 20sq cm No #1 R Sinclair Cluster -Time 10:36 -Correct Patient Yes -Correct Side, Site, Position Yes -Correct Procedure Yes -Procedure Performed Yes -Type of Procedure Debridement -Clinical Debridement Subcutaneous -Tissue Removed Subcutaneous -Post Debridement (cm) - Length 14.0 -Post Debridement (cm) - Width 17.0 -Post Debridement (cm) - Depth 0.1 -Total Square (Post) (cm) 238.00 -Area of Debridement (cm) - Length 14.7 -Area of Debridement (cm) - Width 17.0 -Total Square (Area) (cm) 249.90 -Tunneling No -Undermining/Tunneling No -Circular Undermining No -Wound/Ulcer Outcome Not Healed -Ulcer Cleansing Rinsed/ Irrigated with Saline -Foul Odor after Cleansing No -Bioengineered Tissue No -Bleeding Controlled with Pressure -Treatment Response Procedure Tolerated Well -Offloading No -Debridement - Subq, 1st 20sq cm No Pain Scale: 0-10 Numeric Is Patient Pain Free? Yes - Nurse 3 - General Ulcer D/C NN Start: 06/30/22 09:43 Freq: Status: Active Protocol: Activity Type Activity Date Activity User E-sign Co-sign Detail Recorded Client Recorded Date Recorded By Document 06/30/22 11:13 AR [id number] 06/30/22 11:14 AR 06/30/22 11:13 Wound Care Nurse 3 #4 L Med Cluster -Primary Dressing Applied Aquacel Extra -Primary Dressing Covered/Secured with Dry Gauze & Roll Gauze, Secured with Tape -Aquacel Extra 2 bilat -Multi-Layered Wrap Application Multi-Layer Comp - Bilat ($ ) Pain Scale: 0-10 Numeric Is Patient Pain Free? Yes WC - Visit Discharge Ambulatory Status Wheelchair Medication Reconcilliation completed & No provided to patient/care provider Clinical Summary of Care Provided Yes Additional Wound Wound debrided: Right foot (lateral) Type of Debridement: Excisional debridement Depth: Down to and including healthy tissue Percentage of wound debrided: 100 Instrument Used: 5mm curette Tissue Removed: Slough and devitalized tissue Severity: Fat Layer Exposed Amount of bleeding with debridement: Mild Bleeding Controlled with: Pressure Patient tolerated procedure: Patient tolerated procedure well Additional Wound Wound debrided: Right foot (medial) Type of Debridement: Excisional debridement Anesthesia Used: 4% Lidocaine Solution Depth: Down to and including healthy tissue and in the subcutaneous layer Percentage of wound debrided: 100 Instrument Used: 5mm curette Tissue Removed: Slough and devitalized tissue Severity: Fat Layer Exposed Amount of bleeding with debridement: Mild Bleeding Controlled with: Pressure Patient tolerated procedure: Patient tolerated procedure well Additional Wound Wound debrided: Left lower extremity medial cluster Type of Debridement: Excisional debridement Anesthesia Used: 4% Lidocaine Solution Depth: Down to and including healthy tissue and in the subcutaneous layer Percentage of wound debrided: 100 Instrument Used: 5mm curette Tissue Removed: Slough and devitalized tissue Severity: Fat Layer Exposed Amount of bleeding with debridement: Mild Bleeding Controlled with: Pressure Patient tolerated procedure: Patient tolerated procedure well Assessment/Plan Assessment/Plan (1) Ulcer of left lower extremity with fat layer exposed: CODE(S): L97.922 - Non-pressure chronic ulcer of unspecified part of left lower leg with fat layer exposed (2) Ulcer of right lower extremity with fat layer exposed: CODE(S): L97.912 - Non-pressure chronic ulcer of unspecified part of right lower leg with fat layer exposed (3) Ulcer of right foot with fat layer exposed: CODE(S): L97.512 - Non-pressure 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 Continue Aquacel extra to all ulcers with ABD over top. 3M wrap to both lower extremities for edema management. Change on Monday and then on Monday. Follow-up in a week. Protein supplements twice daily. Labs have been ordered including CBC, CMP, A1c, CRP, he will get this done at his facility. Will review when available. His questions were answered and he was advised to call with any further questions or concerns. Follow-up in a week. This note was generated with [employer] dictation software. It may contain incorrect words, spelling, and punctuation that were not noted in checking the note before signing.
[2022-07-14 11:02] VITALS: BP 120/62; PULSE 64; RESP 16; TEMP 36.4
--- NOTE | 2022-07-14 12:23 | PN.PCM_ITS ---
History of Present Illness Date of Service: 07/14/22 Chief Complaint: Bilateral lower extremity ulcers History of Wound: Mr. Boles is an 82-year-old currently residing at [facility] who presents due to nonhealing bilateral lower extremity ulceration. Has been present for some months. Has had some dressing changes done at his facility without any significant improvement. 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 Not very active. Significant bilateral lower extremity edema. He denies chills, fever or feeling of unwell. He states that his appetite is good. Progress of Wound: Comes in with a new left third toe ulcer, no clear reason and how it started. Missed his appointment last week due to COVID. Left medial cluster with very minimal area left. Right lateral foot healed and right lower extremity with some improvement as well. Otherwise, no acute concerns. Objective Data Objective Data Vital Signs: Vital Signs Temp Pulse Resp BP O2 Del Method 97.6 F L 64 16 120/62 Room Air 07/14/22 11:02 07/14/22 11:02 07/14/22 11:02 07/14/22 11:02 07/14/22 11:02 Oxygen Delivery Method Room Air Charges/Coding Procedures Integumentary 111xxx-113xx: [id number] Jaye subq tissue 20 sq cm/< Add On Codes: 19551 Jaye subq tissue add-on (x6 .Additional square centimeter debrided, please refer to clinical note.) Physical Exam Const alert, oriented x3 and no apparent distress General Appearance: cooperative, comfortable and well kempt HEENT normocephalic and head/scalp atraumatic Eyes EOMs intact bilaterally General Eye: normal appearance of both eyes Neck full ROM General: normal visual inspection Resp normal respiratory effort Effort and Inspection: able to speak in complete sentences Extremity General Extremity: edema Skin Wounds: wounds noted Neuro oriented x3, CN's II-XII intact bilaterally, moves all extremities and no focal motor deficits Psych mental status grossly normal, thought process normal, cooperative and affect normal Debridement Note Debridement Note Wound debrided: Left third toe Type of Debridement: Excisional debridement Anesthesia Used: 4% Lidocaine Solution Depth: Down to and including healthy tissue and in the subcutaneous layer Percentage of wound debrided: 100 Instrument Used: 3mm curette Tissue Removed: Slough and devitalized tissue Severity: Fat Layer Exposed Amount of bleeding with debridement: Mild Bleeding Controlled with: Pressure Patient tolerated procedure: Patient tolerated procedure well Post-Debridement Measurements and Additional Note: Post-Debridement Measurements/Treatment JANAY - Nurse 1 - General Ulcer Assessment Start: 06/30/22 09:43 Freq: Status: Active Protocol: LINDA Activity Type Activity Date Activity User E-sign Co-sign Detail Recorded Client Recorded Date Recorded By Document 06/30/22 09:51 [facility] [id number] 06/30/22 10:07 BM Document 07/14/22 11:02 [facility] [id number] 07/14/22 11:21 BMF 06/30/22 07/14/22 09:51 11:02 WC - Today's Visit Information Type of service Follow-up Visit Follow-up Visit (Physician/FOREST PATHOLOGY TEACHER (Physician/FOREST PATHOLOGY TEACHER ) ) Arrival Mode Wheelchair Wheelchair Transfer Assistance Other Other Transfer Assist (Other) 2 2 Patient Identification Verified (Name & Yes Yes ) Patient Requires Transmission-Based No No Precautions Vital Signs Temperature (97.8 F-99.1 F) 97.5 F L 97.6 F L Temperature Source Temporal Temporal Pulse Rate (60-100) 76 64 Pulse Location Monitor Monitor Respiratory Rate (12-18) 16 16 Respiratory rate source Observation Observation Oxygen Delivery Method Room Air Room Air Blood Pressure (90/60-120/80) 126/66 H 120/62 Blood Pressure Mean (mm Hg) 86 81 Source Monitor Monitor Position Sitting Sitting Blood Pressure Location Right Arm Right Forearm History Since Last Visit- (Skip if this is Patient's initial visit) Have you changed medications since your No No last visit? Any new allergies or adverse reactions No No Had a fall/change in ADL's that may No No increase risk of falls Signs or symptoms of abuse and/or No No neglect since last visit Have you been in the hospital since your No No last visit? Has dressing in place as prescribed Yes No Has compression in place as prescribed Yes No Has offloadiing in place as prescribed N/A N/A Experienced any changes in pain level or No No management Left Footwear Regular Shoe Regular Shoe Right Footwear Regular Shoe Regular Shoe Other Footwear SNOW BOOTS Pain Scale: 0-10 Numeric Is Patient Pain Free? Yes Yes JANAY - Nurse 1 - General Ulcer Measurement Start: 06/30/22 09:43 Freq: Status: Active Protocol: Activity Type Activity Date Activity User E-sign Co-sign Detail Recorded Client Recorded Date Recorded By Document 06/30/22 09:51 [facility] [id number] 06/30/22 10:07 BM Document 07/14/22 11:02 [facility] [id number] 07/14/22 11:21 BMF 06/30/22 07/14/22 09:51 11:02 Wound Center Nurse 1 #3 R Lat foot -Combined with other wound No No -Current Size (cm) - Length 10 0.1 -Current Size (cm) - Width 3.4 0.1 -Current Size (cm) - Depth 0.1 0.1 -Total Square Cm 34.0 0.01 -Date of Last Picture (Recall this 06/30/22 field) -Photo Taken Yes -Epithelialization None Present Large 67-100% -Tunneling No No -Undermining/Tunneling No No -Circular Undermining No No -Exudate Amt Medium -Exudate Type Serosanguineous -Wound Margin Flat & Intact -Granulation Amt None Present (0 %) -Slough/Fibrin Yes -Necrosis Amt Large (67-100%) -Necrotic Tissue Type Adherent Slough -Texture ([place]-wound Skin Appearance) Assessed, Assessed, Scarring Scarring -Moisture ([place]-wound Skin Appearance) Assessed,Dry/ Assessed,Dry/ Scaly Scaly -Color ([place]-wound Skin Appearance) Assessed Assessed, Hemosiderin Staining -Temperature ([place]-wound Skin No Abnormality No Abnormality Appearance) (Pt Warm) (Pt Warm) -Tenderness on Palpation ([place]-wound No No Skin Appearance) -Ulcer Cleansing Soap and Water Soap and Water -Foul Odor after Cleansing No No -Anesthetic Used 4% Lidocaine 4% Lidocaine Solution Solution #5- L 3RD TOE -Combined with other wound No -Current Size (cm) - Length 0.8 -Current Size (cm) - Width 0.7 -Current Size (cm) - Depth 0.1 -Total Square Cm 0.56 -Date of Last Picture (Recall this 07/14/22 field) -Photo Taken Yes -Epithelialization None Present -Tunneling No -Undermining/Tunneling No -Circular Undermining No -Exudate Amt Small -Exudate Type Serosanguineous -Wound Margin Flat & Intact -Granulation Amt Large (67-100%) -Granulation Quality Red -Slough/Fibrin No -Necrosis Amt None Present (0 %) -Texture ([place]-wound Skin Appearance) Assessed, Scarring -Moisture ([place]-wound Skin Appearance) Assessed -Color ([place]-wound Skin Appearance) Assessed -Temperature ([place]-wound Skin No Abnormality Appearance) (Pt Warm) -Tenderness on Palpation ([place]-wound No Skin Appearance) -Ulcer Cleansing Soap and Water -Foul Odor after Cleansing No -Anesthetic Used 4% Lidocaine Solution #4 L Med Cluster -Combined with other wound No No -Current Size (cm) - Length 14 0.1 -Current Size (cm) - Width 8.2 0.1 -Current Size (cm) - Depth 0.1 0.1 -Total Square Cm 114.8 0.01 -Date of Last Picture (Recall this 06/30/22 field) -Photo Taken Yes -Epithelialization None Present Large 67-100% -Tunneling No -Undermining/Tunneling No -Circular Undermining No -Exudate Amt Medium None Present -Exudate Type Serosanguineous -Wound Margin Flat & Intact -Granulation Amt Small (1-33%) -Granulation Quality Red -Slough/Fibrin Yes -Necrosis Amt Large (67-100%) -Necrotic Tissue Type Adherent Slough -Texture ([place]-wound Skin Appearance) Assessed, Assessed Scarring -Moisture ([place]-wound Skin Appearance) Assessed,Dry/ Assessed,Dry/ Scaly Scaly -Color ([place]-wound Skin Appearance) Assessed Assessed, Hemosiderin Staining -Temperature ([place]-wound Skin No Abnormality No Abnormality Appearance) (Pt Warm) (Pt Warm) -Tenderness on Palpation ([place]-wound No No Skin Appearance) -Ulcer Cleansing Soap and Water Soap and Water -Foul Odor after Cleansing No No -Anesthetic Used 4% Lidocaine 4% Lidocaine Solution Solution #2 R Med Ankle -Combined with other wound No No -Current Size (cm) - Length 4.6 4.2 -Current Size (cm) - Width 2.4 2.3 -Current Size (cm) - Depth 0.1 0.1 -Total Square Cm 11.04 9.66 -Date of Last Picture (Recall this 06/30/22 field) -Photo Taken Yes No -Epithelialization None Present Medium 34-66% -Tunneling No No -Undermining/Tunneling No No -Circular Undermining No No -Exudate Amt Medium Medium -Exudate Type Serosanguineous Serous -Wound Margin Distinct, Distinct, Outline Outline Attached Attached -Granulation Amt None Present (0 Small (1-33%) %) -Granulation Quality Red -Slough/Fibrin Yes Yes -Necrosis Amt Large (67-100%) Large (67-100%) -Necrotic Tissue Type Adherent Slough Adherent Slough -Texture ([place]-wound Skin Appearance) Assessed, Assessed, Scarring Scarring -Moisture ([place]-wound Skin Appearance) Assessed,Dry/ Assessed,Dry/ Scaly Scaly -Color ([place]-wound Skin Appearance) Assessed Assessed -Temperature ([place]-wound Skin No Abnormality No Abnormality Appearance) (Pt Warm) (Pt Warm) -Tenderness on Palpation ([place]-wound No No Skin Appearance) -Ulcer Cleansing Soap and Water Soap and Water -Foul Odor after Cleansing No No -Anesthetic Used 4% Lidocaine 4% Lidocaine Solution Solution #1 R Sinclair Cluster -Combined with other wound No No -Current Size (cm) - Length 14.6 13.6 -Current Size (cm) - Width 17.2 10.9 -Current Size (cm) - Depth 0.1 0.2 -Total Square Cm 251.12 148.24 -Date of Last Picture (Recall this 06/30/22 field) -Photo Taken Yes -Epithelialization None Present Small 1-33% -Tunneling No No -Undermining/Tunneling No No -Circular Undermining No No -Exudate Amt Large Medium -Exudate Type Serosanguineous Serosanguineous -Wound Margin Flat & Intact Distinct, Outline Attached -Granulation Amt Medium (34-66%) Large (67-100%) -Granulation Quality Red Red -Slough/Fibrin Yes Yes -Necrosis Amt Medium (34-66%) Small (1-33%) -Necrotic Tissue Type Adherent Slough Adherent Slough -Texture ([place]-wound Skin Appearance) Assessed, Assessed, Scarring Scarring -Moisture ([place]-wound Skin Appearance) Assessed,Dry/ Assessed,Dry/ Scaly Scaly -Color ([place]-wound Skin Appearance) Assessed Assessed, Hemosiderin Staining -Temperature ([place]-wound Skin No Abnormality No Abnormality Appearance) (Pt Warm) (Pt Warm) -Tenderness on Palpation ([place]-wound No No Skin Appearance) -Ulcer Cleansing Soap and Water Soap and Water -Foul Odor after Cleansing No No -Anesthetic Used 4% Lidocaine 4% Lidocaine Solution Solution Lower Limb Edema Present Yes Yes Right Calf (cm) 32.6 50.2 Right Ankle (cm) 52.8 34 Left Calf (cm) 33.8 42.4 Left Ankle (cm) 45 34.7 WC - Nurse 2 - General Ulcer CM Notes Start: 06/30/22 09:43 Freq: Status: Active Protocol: Activity Type Activity Date Activity User E-sign Co-sign Detail Recorded Client Recorded Date Recorded By Document 06/30/22 10:34 MW [id number] 06/30/22 10:48 MW Document 07/14/22 11:30 MW [id number] 07/14/22 11:41 MW 06/30/22 07/14/22 10:34 11:30 Wound Center Nurse 2 #3 R Lat foot -Time 10:35 11:37 -Correct Patient Yes Yes -Correct Side, Site, Position Yes Yes -Correct Procedure Yes Yes -Procedure Performed Yes No -Type of Procedure Debridement -Clinical Debridement Subcutaneous -Tissue Removed Subcutaneous -Post Debridement (cm) - Length 8.5 0 -Post Debridement (cm) - Width 4.0 0 -Post Debridement (cm) - Depth 0.1 0 -Total Square (Post) (cm) 34.00 0 -Area of Debridement (cm) - Length 8.5 -Area of Debridement (cm) - Width 4.0 -Total Square (Area) (cm) 34.00 -Tunneling No -Undermining/Tunneling No -Circular Undermining No -Wound/Ulcer Outcome Not Healed Healed- Epithelialized -Ulcer Cleansing Rinsed/ Irrigated with Saline -Foul Odor after Cleansing No -Bioengineered Tissue No -Bleeding Controlled with Pressure -Treatment Response Procedure Tolerated Well -Offloading No -Debridement - Subq, 1st 20sq cm No #5- L 3RD TOE -Time 11:31 -Correct Patient Yes -Correct Side, Site, Position Yes -Correct Procedure Yes -Procedure Performed Yes -Type of Procedure Debridement -Clinical Debridement Subcutaneous -Tissue Removed Subcutaneous -Post Debridement (cm) - Length 0.9 -Post Debridement (cm) - Width 0.5 -Post Debridement (cm) - Depth 0.1 -Total Square (Post) (cm) 0.45 -Area of Debridement (cm) - Length 0.9 -Area of Debridement (cm) - Width 0.5 -Total Square (Area) (cm) 0.45 -Tunneling No -Undermining/Tunneling No -Circular Undermining No -Wound/Ulcer Outcome Not Healed -Ulcer Cleansing Rinsed/ Irrigated with Saline -Foul Odor after Cleansing No -Bioengineered Tissue No -Bleeding Controlled with Pressure -Treatment Response Procedure Tolerated Well -Offloading No -Debridement - Subq, 1st 20sq cm Yes #4 L Med Cluster -Time 10:35 11:37 -Correct Patient Yes Yes -Correct Side, Site, Position Yes Yes -Correct Procedure Yes Yes -Procedure Performed Yes No -Type of Procedure Debridement -Clinical Debridement Subcutaneous -Tissue Removed Subcutaneous -Post Debridement (cm) - Length 3.0 0.1 -Post Debridement (cm) - Width 6.5 0.1 -Post Debridement (cm) - Depth 0.1 0.1 -Total Square (Post) (cm) 19.50 0.01 -Area of Debridement (cm) - Length 3.0 -Area of Debridement (cm) - Width 6.5 -Total Square (Area) (cm) 19.50 -Tunneling No -Undermining/Tunneling No -Circular Undermining No -Wound/Ulcer Outcome Not Healed Not Healed -Ulcer Cleansing Rinsed/ Irrigated with Saline -Foul Odor after Cleansing No -Bioengineered Tissue No -Bleeding Controlled with Pressure -Treatment Response Procedure Tolerated Well -Offloading No -Debridement - Subq, 1st 20sq cm Yes -Debridement, SubQ, ea addt'l 20sq cm 15 or part thereof #2 R Med Ankle -Time 10:35 11:38 -Correct Patient Yes Yes -Correct Side, Site, Position Yes Yes -Correct Procedure Yes Yes -Procedure Performed Yes Yes -Type of Procedure Debridement Debridement -Clinical Debridement Subcutaneous Subcutaneous -Tissue Removed Subcutaneous Subcutaneous -Post Debridement (cm) - Length 2.5 1.0 -Post Debridement (cm) - Width 5.0 2.8 -Post Debridement (cm) - Depth 0.1 0.1 -Total Square (Post) (cm) 12.50 2.80 -Area of Debridement (cm) - Length 2.5 1.0 -Area of Debridement (cm) - Width 5.0 2.8 -Total Square (Area) (cm) 12.50 2.80 -Tunneling No No -Undermining/Tunneling No No -Circular Undermining No No -Wound/Ulcer Outcome Not Healed Not Healed -Ulcer Cleansing Rinsed/ Rinsed/ Irrigated with Irrigated with Saline Saline -Foul Odor after Cleansing No No -Bioengineered Tissue No No -Bleeding Controlled with Pressure Pressure -Treatment Response Procedure Procedure Tolerated Well Tolerated Well -Offloading No No -Debridement - Subq, 1st 20sq cm No No #1 R Sinclair Cluster -Time 10:36 11:38 -Correct Patient Yes Yes -Correct Side, Site, Position Yes Yes -Correct Procedure Yes Yes -Procedure Performed Yes Yes -Type of Procedure Debridement Debridement -Clinical Debridement Subcutaneous Subcutaneous -Tissue Removed Subcutaneous Subcutaneous -Post Debridement (cm) - Length 14.0 11.0 -Post Debridement (cm) - Width 17.0 11.0 -Post Debridement (cm) - Depth 0.1 0.2 -Total Square (Post) (cm) 238.00 121.00 -Area of Debridement (cm) - Length 14.7 11.0 -Area of Debridement (cm) - Width 17.0 11.0 -Total Square (Area) (cm) 249.90 121.00 -Tunneling No No -Undermining/Tunneling No No -Circular Undermining No No -Wound/Ulcer Outcome Not Healed Not Healed -Ulcer Cleansing Rinsed/ Rinsed/ Irrigated with Irrigated with Saline Saline -Foul Odor after Cleansing No No -Bioengineered Tissue No No -Bleeding Controlled with Pressure Pressure -Treatment Response Procedure Procedure Tolerated Well Tolerated Well -Offloading No No -Debridement - Subq, 1st 20sq cm No No Pain Scale: 0-10 Numeric Is Patient Pain Free? Yes Yes WC - Nurse 3 - General Ulcer D/C NN Start: 06/30/22 09:43 Freq: Status: Active Protocol: Activity Type Activity Date Activity User E-sign Co-sign Detail Recorded Client Recorded Date Recorded By Document 06/30/22 11:13 [place] [id number] 06/30/22 11:14 [place] 06/30/22 11:13 Wound Care Nurse 3 #4 L Med Cluster -Primary Dressing Applied Aquacel Extra -Primary Dressing Covered/Secured with Dry Gauze & Roll Gauze, Secured with Tape -Aquacel Extra 2 bilat -Multi-Layered Wrap Application Multi-Layer Comp - Bilat ($ ) Pain Scale: 0-10 Numeric Is Patient Pain Free? Yes WC - Visit Discharge Ambulatory Status Wheelchair Medication Reconcilliation completed & No provided to patient/care provider Clinical Summary of Care Provided Yes Additional Wound Wound debrided: Right sinclair cluster Type of Debridement: Excisional debridement Anesthesia Used: 4% Lidocaine Solution Depth: Down to and including healthy tissue and in the subcutaneous layer Percentage of wound debrided: 100 Instrument Used: 5mm curette Tissue Removed: Slough and devitalized tissue Severity: Fat Layer Exposed Amount of bleeding with debridement: Mild Bleeding Controlled with: Pressure Patient tolerated procedure: Patient tolerated procedure well Additional Wound Wound debrided: Right medial foot Type of Debridement: Excisional debridement Anesthesia Used: 4% Lidocaine Solution Depth: Down to and including healthy tissue and in the subcutaneous layer Percentage of wound debrided: 100 Instrument Used: 5mm curette Tissue Removed: Slough and devitalized tissue Severity: Fat Layer Exposed Amount of bleeding with debridement: Mild Bleeding Controlled with: Pressure Patient tolerated procedure: Patient tolerated procedure well Assessment/Plan Assessment/Plan (1) Ulcer of left lower extremity with fat layer exposed: CODE(S): L97.922 - Non-pressure chronic ulcer of unspecified part of left lower leg with fat layer exposed (2) Ulcer of right lower extremity with fat layer exposed: CODE(S): L97.912 - Non-pressure chronic ulcer of unspecified part of right lower leg with fat layer exposed (3) Ulcer of right foot with fat layer exposed: CODE(S): L97.512 - Non-pressure 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 Improvement noted. Continue Aquacel extra to all ulcers with ABD over top. 3M wrap to both lower extremities for edema management. Change on Monday, Monday and and then repeat. Protein supplements twice daily. Labs have been ordered including CBC, CMP, A1c, CRP, he will get this done at his facility. Will review when available. His questions were answered and he was advised to call with any further questions or concerns. Follow-up in 2 weeks. This note was generated with [employer] dictation software. It may contain incorrect words, spelling, and punctuation that were not noted in checking the note before signing.
== END 2022-07-27 23:59 | disposition home or self-care (01) ==
LOC: WC 10:15
PROVIDERS: PCP Family Medicine; Visit Provider Internal Medicine
DX: L97.512 Non-pressure chronic ulcer of other part of right foot with fat layer exposed (principal); L97.922 Non-pressure chronic ulcer of unspecified part of left lower leg with fat layer exposed; L97.912 Non-pressure chronic ulcer of unspecified part of right lower leg with fat layer exposed; R73.03 Prediabetes; I87.2 Venous insufficiency (chronic) (peripheral); R60.0 Localized edema
CPT/HCPCS: 11042; 11045; 29581

== ENCOUNTER → 2022-07-25 | Outpatient (REF) | payer MEDICARE, MEDICAID, SELFPAY ==
[2022-07-25 08:12] LABS: Hematocrit 34.7 % (40-54); Hemoglobin 10.9 g/dL (13.0-16.5); Mean Corp Hgb Conc 31.4 g/dL (32-36); Mean Corpuscular Hgb 26.3 pg (27.0-32.0); Mean Corpuscular Volume 83.6 fL (80-94); Mean Platelet Vol. 9.7 fl (6.2-12.0); Platelet Count 257 K/mm3 (150-450); RBC Distribution Width CV 17.3 % (11.6-14.6); RBC Distribution Width SD 53.1 fl (35.1-43.9); Red Blood Count 4.15 M/mm3 (4.6-6.2); White Blood Count 8.6 K/mm3 (4.4-11.0)
[2022-07-25 08:31] LABS: Iron 39 ug/dL (65-175); Iron Binding Capacity,Total 230 ug/dL (250-450)
== END ==
LOC: OLS.SWAL 05:00
PROVIDERS: PCP Family Medicine; Visit Provider Internal Medicine
DX: D64.9 Anemia, unspecified (principal)
CPT/HCPCS: 36415; 83540; 83550; 85027

== ENCOUNTER 2022-08-25 10:00 | Outpatient (RCR) | payer MEDICARE, MEDICAID, SELFPAY ==
[2022-07-28 00:12] VITALS: BP 120/62; PULSE 64; RESP 16; TEMP 36.4
[2022-07-28 10:28] VITALS: BP 127/62; PULSE 74; RESP 16; TEMP 36
--- NOTE | 2022-07-28 13:10 | PCM.WC.PN ---
History of Present Illness Date of Service: 07/28/22 Chief Complaint: Bilateral lower extremity ulcers History of Wound: Mr. Boles is an 82-year-old currently residing at [place] who presents due to nonhealing bilateral lower extremity ulceration. Has been present for some months. Has had some dressing changes done at his facility without any significant improvement. 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 Not very active. Significant bilateral lower extremity edema. He denies chills, fever or feeling of unwell. He states that his appetite is good. Progress of Wound: Left Lower extremity ulcers healed. Right with no significant change. Still has drainage. Objective Data Objective Data Vital Signs: Vital Signs Temp Pulse Resp BP O2 Del Method 96.8 F L 74 16 127/62 H Room Air 07/28/22 10:28 07/28/22 10:28 07/28/22 10:28 07/28/22 10:28 07/28/22 10:28 Oxygen Delivery Method Room Air Charges/Coding Procedures Integumentary 111xxx-113xx: [id number] Jaye subq tissue 20 sq cm/< Add On Codes: 00063 Jaye subq tissue add-on (x6. Additional square centimeter debrided, please refer to clinical note.) Physical Exam Const alert, oriented x3 and no apparent distress General Appearance: cooperative, comfortable and well kempt HEENT normocephalic and head/scalp atraumatic Eyes EOMs intact bilaterally General Eye: normal appearance of both eyes Neck full ROM General: normal visual inspection Resp normal respiratory effort Effort and Inspection: able to speak in complete sentences Extremity General Extremity: edema Skin Wounds: wounds noted Neuro oriented x3, CN's II-XII intact bilaterally, moves all extremities and no focal motor deficits Psych mental status grossly normal, thought process normal, cooperative and affect normal Debridement Note Debridement Note Wound debrided: Right Rinaldi Cluster Type of Debridement: Excisional debridement Anesthesia Used: 4% Lidocaine Solution Depth: Down to and including healthy tissue and in the subcutaneous layer Percentage of wound debrided: 100 Instrument Used: 5mm curette Tissue Removed: Slough and devitalized tissue Severity: Fat Layer Exposed Amount of bleeding with debridement: Mild Bleeding Controlled with: Pressure Patient tolerated procedure: Patient tolerated procedure well Post-Debridement Measurements and Additional Note: Post-Debridement Measurements/Treatment WC - Nurse 1 - General Ulcer Assessment Start: 07/28/22 10:28 Freq: Status: Active Protocol: LINDA Activity Type Activity Date Activity User E-sign Co-sign Detail Recorded Client Recorded Date Recorded By Document 07/28/22 10:28 [facility] [id number] 07/28/22 10:33 [facility] 07/28/22 10:28 WC - Today's Visit Information Type of service Follow-up Visit (Physician/[facility] ) Arrival Mode Wheelchair Transfer Assistance Other Transfer Assist (Other) stand by Patient Identification Verified (Name & Yes ) Patient Requires Transmission-Based No Precautions Vital Signs Temperature (97.8 F-99.1 F) 96.8 F L Temperature Source Temporal Pulse Rate (60-100) 74 Pulse Location Monitor Respiratory Rate (12-18) 16 Respiratory rate source Observation Oxygen Delivery Method Room Air Blood Pressure (90/60-120/80) 127/62 H Blood Pressure Mean (mm Hg) 83 Source Monitor Position Sitting Blood Pressure Location Right Forearm History Since Last Visit- (Skip if this is Patient's initial visit) Has dressing in place as prescribed No Has compression in place as prescribed No Has offloadiing in place as prescribed N/A Experienced any changes in pain level or No management Left Footwear Regular Shoe Right Footwear Regular Shoe Other Footwear wearing snow boots Pain Scale: 0-10 Numeric Is Patient Pain Free? Yes - Nurse 1 - General Ulcer Measurement Start: 07/28/22 10:28 Freq: Status: Active Protocol: Activity Type Activity Date Activity User E-sign Co-sign Detail Recorded Client Recorded Date Recorded By Document 07/28/22 10:28 [facility] [id number] 07/28/22 10:33 [facility] 07/28/22 10:28 Wound Center Nurse 1 #4 L Med Cluster -Combined with other wound No -Current Size (cm) - Length 0.1 -Current Size (cm) - Width 0.1 -Current Size (cm) - Depth 0.1 -Total Square Cm 0.01 -Photo Taken No -Epithelialization Large 67-100% -Tunneling No -Undermining/Tunneling No -Exudate Amt None Present -Texture ([place]-wound Skin Appearance) Assessed, Scarring -Moisture ([place]-wound Skin Appearance) Assessed,Dry/ Scaly -Color ([place]-wound Skin Appearance) Assessed -Temperature ([place]-wound Skin No Abnormality Appearance) (Pt Warm) -Tenderness on Palpation ([place]-wound No Skin Appearance) -Ulcer Cleansing Soap and Water -Foul Odor after Cleansing No -Anesthetic Used 4% Lidocaine Solution #5- L 3RD TOE -Combined with other wound No -Current Size (cm) - Length 0.1 -Current Size (cm) - Width 0.1 -Current Size (cm) - Depth 0.1 -Total Square Cm 0.01 -Epithelialization Small 1-33% -Tunneling No -Undermining/Tunneling No -Exudate Amt None Present -Texture ([place]-wound Skin Appearance) Scarring -Moisture ([place]-wound Skin Appearance) Dry/Scaly -Color ([place]-wound Skin Appearance) Assessed -Temperature ([place]-wound Skin No Abnormality Appearance) (Pt Warm) -Tenderness on Palpation ([place]-wound No Skin Appearance) -Ulcer Cleansing Soap and Water -Foul Odor after Cleansing No -Anesthetic Used 4% Lidocaine Solution #2 R Med Ankle -Combined with other wound No -Current Size (cm) - Length 1.3 -Current Size (cm) - Width 1.7 -Current Size (cm) - Depth 0.1 -Total Square Cm 2.21 -Epithelialization Small 1-33% -Tunneling No -Undermining/Tunneling No -Circular Undermining No -Exudate Amt Small -Exudate Type Serous -Wound Margin Distinct, Outline Attached -Granulation Amt Small (1-33%) -Slough/Fibrin Yes -Necrosis Amt Large (67-100%) -Necrotic Tissue Type Adherent Slough -Texture ([place]-wound Skin Appearance) Assessed,Callus ,Scarring -Moisture ([place]-wound Skin Appearance) Assessed,Dry/ Scaly -Color ([place]-wound Skin Appearance) Assessed -Temperature ([place]-wound Skin No Abnormality Appearance) (Pt Warm) -Tenderness on Palpation ([place]-wound No Skin Appearance) -Ulcer Cleansing Soap and Water -Foul Odor after Cleansing No -Anesthetic Used 4% Lidocaine Solution #1 R Rinaldi Cluster -Combined with other wound No -Current Size (cm) - Length 11 -Current Size (cm) - Width 12 -Current Size (cm) - Depth 0.2 -Total Square Cm 132 -Epithelialization Small 1-33% -Tunneling No -Undermining/Tunneling No -Circular Undermining No -Exudate Amt Medium -Exudate Type Serosanguineous -Wound Margin Distinct, Outline Attached -Granulation Amt Medium (34-66%) -Granulation Quality Red -Slough/Fibrin Yes -Necrosis Amt Medium (34-66%) -Necrotic Tissue Type Adherent Slough -Texture ([place]-wound Skin Appearance) Assessed, Scarring -Moisture ([place]-wound Skin Appearance) Assessed,Dry/ Scaly -Color ([place]-wound Skin Appearance) Assessed -Temperature ([place]-wound Skin No Abnormality Appearance) (Pt Warm) -Tenderness on Palpation ([place]-wound No Skin Appearance) -Ulcer Cleansing Soap and Water -Foul Odor after Cleansing No -Anesthetic Used 4% Lidocaine Solution Lower Limb Edema Present Yes Right Calf (cm) 53 Right Ankle (cm) 34.5 Left Calf (cm) 47.5 Left Ankle (cm) 33.8 WC - Nurse 2 - General Ulcer CM Notes Start: 07/28/22 10:28 Freq: Status: Active Protocol: Activity Type Activity Date Activity User E-sign Co-sign Detail Recorded Client Recorded Date Recorded By Document 07/28/22 10:50 MW [id number] 07/28/22 11:04 MW Edit Result 07/28/22 10:50 MW (1) [id number] 07/28/22 11:08 MW (1) #2 R Med Ankle - Debridement, SubQ, ea addt'l 20sq cm => 6 or part thereof 07/28/22 10:50 Wound Center Nurse 2 #4 L Med Cluster -Time 10:51 -Correct Patient Yes -Correct Side, Site, Position Yes -Correct Procedure Yes -Procedure Performed No -Post Debridement (cm) - Length 0 -Post Debridement (cm) - Width 0 -Post Debridement (cm) - Depth 0 -Total Square (Post) (cm) 0 -Wound/Ulcer Outcome Healed- Epithelialized #5- L 3RD TOE -Time 10:50 -Correct Patient Yes -Correct Side, Site, Position Yes -Correct Procedure Yes -Procedure Performed No -Post Debridement (cm) - Length 0.1 -Post Debridement (cm) - Width 0.1 -Post Debridement (cm) - Depth 0.1 -Total Square (Post) (cm) 0.01 -Tunneling No -Undermining/Tunneling No -Circular Undermining No -Wound/Ulcer Outcome Not Healed -Ulcer Cleansing Rinsed/ Irrigated with Saline #2 R Med Ankle -Time 10:52 -Correct Patient Yes -Correct Side, Site, Position Yes -Correct Procedure Yes -Procedure Performed Yes -Type of Procedure Debridement -Clinical Debridement Subcutaneous -Tissue Removed Subcutaneous -Post Debridement (cm) - Length 1.5 -Post Debridement (cm) - Width 2.0 -Post Debridement (cm) - Depth 0.1 -Total Square (Post) (cm) 3.00 -Area of Debridement (cm) - Length 1.5 -Area of Debridement (cm) - Width 2.0 -Total Square (Area) (cm) 3.00 -Tunneling No -Undermining/Tunneling No -Circular Undermining No -Wound/Ulcer Outcome Not Healed -Ulcer Cleansing Rinsed/ Irrigated with Saline -Foul Odor after Cleansing No -Bioengineered Tissue No -Bleeding Controlled with Pressure -Treatment Response Procedure Tolerated Well -Offloading No -Debridement - Subq, 1st 20sq cm Yes -Debridement, SubQ, ea addt'l 20sq cm 6 or part thereof #1 R Rinaldi Cluster -Time 10:53 -Correct Patient Yes -Correct Side, Site, Position Yes -Correct Procedure Yes -Procedure Performed Yes -Type of Procedure Debridement -Clinical Debridement Subcutaneous -Tissue Removed Subcutaneous -Post Debridement (cm) - Length 11.0 -Post Debridement (cm) - Width 12.5 -Post Debridement (cm) - Depth 0.2 -Total Square (Post) (cm) 137.50 -Area of Debridement (cm) - Length 11.0 -Area of Debridement (cm) - Width 12.5 -Total Square (Area) (cm) 137.50 -Tunneling No -Undermining/Tunneling No -Circular Undermining No -Wound/Ulcer Outcome Not Healed -Ulcer Cleansing Rinsed/ Irrigated with Saline -Foul Odor after Cleansing No -Bioengineered Tissue No -Bleeding Controlled with Pressure -Treatment Response Procedure Tolerated Well -Offloading No -Debridement - Subq, 1st 20sq cm No Pain Scale: 0-10 Numeric Is Patient Pain Free? Yes WC - Nurse 3 - General Ulcer D/C NN Start: 07/28/22 10:28 Freq: Status: Active Protocol: Activity Type Activity Date Activity User E-sign Co-sign Detail Recorded Client Recorded Date Recorded By Document 07/28/22 11:35 [facility] [id number] 07/28/22 11:36 [facility] 07/28/22 11:35 Wound Care Nurse 3 #5- L 3RD TOE -Ulcer Cleansing Rinsed/ Irrigated with Saline -Foul Odor after Cleansing No -Primary Dressing Applied Aquacel Extra -Primary Dressing Covered/Secured with Dry Gauze & Roll Gauze, Secured with Tape -Aquacel Extra 1 #2 R Med Ankle -Ulcer Cleansing Rinsed/ Irrigated with Saline -Foul Odor after Cleansing No -Primary Dressing Applied Aquacel Extra -Primary Dressing Covered/Secured with Dry Gauze & Roll Gauze, Secured with Tape -Other Covering abd -Aquacel Extra 0 #1 R Rinaldi Cluster -Ulcer Cleansing Rinsed/ Irrigated with Saline -Foul Odor after Cleansing No -Primary Dressing Applied Aquacel Extra -Primary Dressing Covered/Secured with Dry Gauze & Roll Gauze, Secured with Tape -Other Covering abd -Aquacel Extra 0 ble -Multi-Layered Wrap Application Multi-Layer Comp - Bilat ($ ) Treatment Response Procedure Tolerated Well Pain Scale: 0-10 Numeric Is Patient Pain Free? Yes WC - Visit Discharge Discharge Condition Stable Ambulatory Status Wheelchair Facility Type [facility] Additional Wound Wound debrided: Right medial ankle Type of Debridement: Excisional debridement Anesthesia Used: 4% Lidocaine Solution Depth: Down to and including healthy tissue and in the subcutaneous layer Percentage of wound debrided: 100 Instrument Used: 5mm curette Severity: Fat Layer Exposed Amount of bleeding with debridement: Mild Bleeding Controlled with: Pressure Patient tolerated procedure: Patient tolerated procedure well Assessment/Plan Assessment/Plan (1) Ulcer of left lower extremity with fat layer exposed: CODE(S): L97.922 - Non-pressure chronic ulcer of unspecified part of left lower leg with fat layer exposed (2) Ulcer of right lower extremity with fat layer exposed: CODE(S): L97.912 - Non-pressure chronic ulcer of unspecified part of right lower leg with fat layer exposed (3) Ulcer of right foot with fat layer exposed: CODE(S): L97.512 - Non-pressure 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 Left with some improvement but right not so much. Still has a lot of drainage and edema to both lower extremities. Chronic history of lymphedema. I believe he would benefit from lymphedema pump however he was advised that he will need to get clearance from cardiology first. Will initiate the process. For now, continue Aquacel extra to all ulcers with ABD over top. 3M wrap to both lower extremities for edema management. Change on Monday, Monday and and then repeat. Protein supplements twice daily. Labs have been ordered including CBC, CMP, A1c, CRP, yet to get this done at his facility. Will review when available. His questions were answered and he was advised to call with any further questions or concerns. Follow-up in 2 weeks. This note was generated with [employer] dictation software. It may contain incorrect words, spelling, and punctuation that were not noted in checking the note before signing.
--- NOTE | 2022-08-11 08:25 | WC ---
Faxed Dr Mendoza scrap iron loader on07/28 and 08/05 requesting cardiac clearance for compression pumps to treat Lymphedema per Dr. Rashid. Called Dr. Mendoza office this AM to check on status of request. Nurse stated denied clearance because patient cancelled his last appt with them in November 2021 and hasn't been seen in a year. Dr. Mendoza office did call patient and scheduled appt for 10/17/22 at 1340 to check cardiac status and clearance request for pumps. Dr. Rashid updated.
[2022-08-11 10:36] VITALS: BP 113/64; PULSE 71; RESP 22; TEMP 36.4
--- NOTE | 2022-08-11 11:54 | PN.PCM_ITS ---
History of Present Illness Date of Service: 08/11/22 Chief Complaint: Bilateral lower extremity ulcers History of Wound: Mr. Boles is an 82-year-old currently residing at [facility] who presents due to nonhealing bilateral lower extremity ulceration. Has been present for some months. Has had some dressing changes done at his facility without any significant improvement. 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 Not very active. Significant bilateral lower extremity edema. He denies chills, fever or feeling of unwell. He states that his appetite is good. Progress of Wound: No acute concerns at this time. Increased bleeding from the right sinclair ulcer but he denies increased pain, chills or fever. Objective Data Objective Data Vital Signs: Vital Signs Temp Pulse Resp BP O2 Del Method 97.6 F L 71 22 H 113/64 Room Air 08/11/22 10:36 08/11/22 10:36 08/11/22 10:36 08/11/22 10:36 07/28/22 10:28 Oxygen Delivery Method Room Air Charges/Coding Procedures Integumentary 111xxx-113xx: 84388 Jaye subq tissue 20 sq cm/< Add On Codes: 29685 Jaye subq tissue add-on (x6. Additional Sq cm debrided, please refer to clinical note) Physical Exam Const alert, oriented x3 and no apparent distress General Appearance: cooperative, comfortable and well kempt HEENT normocephalic and head/scalp atraumatic Eyes EOMs intact bilaterally General Eye: normal appearance of both eyes Neck full ROM General: normal visual inspection Resp normal respiratory effort Effort and Inspection: able to speak in complete sentences Extremity General Extremity: edema Skin Wounds: wounds noted Neuro oriented x3, CN's II-XII intact bilaterally, moves all extremities and no focal motor deficits Psych mental status grossly normal, thought process normal, cooperative and affect normal Debridement Note Debridement Note Wound debrided: Right Sinclair Cluster Type of Debridement: Excisional debridement Anesthesia Used: 4% Lidocaine Solution Depth: Down to and including healthy tissue and in the subcutaneous layer Percentage of wound debrided: 100 Instrument Used: 7mm curette Tissue Removed: Slough and devitalized tissue. Severity: Fat Layer Exposed Amount of bleeding with debridement: Mild Bleeding Controlled with: Compression and gauze Patient tolerated procedure: Patient tolerated procedure well Post-Debridement Measurements and Additional Note: Post-Debridement Measurements/Treatment JANAY - Nurse 1 - General Ulcer Assessment Start: 07/28/22 10:28 Freq: Status: Active Protocol: LINDA Activity Type Activity Date Activity User E-sign Co-sign Detail Recorded Client Recorded Date Recorded By Document 07/28/22 10:28 BMF [id number] 07/28/22 10:33 BMF Document 08/11/22 10:36 DL [id number] 08/11/22 10:52 DL 07/28/22 08/11/22 10:28 10:36 WC - Today's Visit Information Type of service Follow-up Visit Follow-up Visit (Physician/DEVULCANIZER CHARGER (Physician/DEVULCANIZER CHARGER ) ) Arrival Mode Wheelchair Wheelchair Transfer Assistance Other Manual Transfer Assist (Other) stand by x2 Patient Identification Verified (Name & Yes Yes ) Patient Requires Transmission-Based No No Precautions Vital Signs Temperature (97.8 F-99.1 F) 96.8 F L 97.6 F L Temperature Source Temporal Temporal Pulse Rate (60-100) 74 71 Pulse Location Monitor Monitor Respiratory Rate (12-18) 16 22 H Respiratory rate source Observation Observation Oxygen Delivery Method Room Air Blood Pressure (90/60-120/80) 127/62 H 113/64 Blood Pressure Mean (mm Hg) 83 80 Source Monitor Monitor Position Sitting Blood Pressure Location Right Forearm History Since Last Visit- (Skip if this is Patient's initial visit) Have you changed medications since your No last visit? Any new allergies or adverse reactions No Had a fall/change in ADL's that may No increase risk of falls Signs or symptoms of abuse and/or No neglect since last visit Have you been in the hospital since your No last visit? Has dressing in place as prescribed No Yes Has compression in place as prescribed No Yes Has offloadiing in place as prescribed N/A N/A Experienced any changes in pain level or No No management Left Footwear Regular Shoe Slipper Right Footwear Regular Shoe Regular Shoe Other Footwear wearing snow boots Pain Scale: 0-10 Numeric Is Patient Pain Free? Yes Yes JANAY Sheets Nurse 1 - General Ulcer Measurement Start: 07/28/22 10:28 Freq: Status: Active Protocol: Activity Type Activity Date Activity User E-sign Co-sign Detail Recorded Client Recorded Date Recorded By Document 07/28/22 10:28 BMF [id number] 07/28/22 10:33 BMF Document 08/11/22 10:36 DL [id number] 08/11/22 10:52 DL 07/28/22 08/11/22 10:28 10:36 Wound Center Nurse 1 #5- L 3RD TOE -Combined with other wound No No -Current Size (cm) - Length 0.1 0 -Current Size (cm) - Width 0.1 0 -Current Size (cm) - Depth 0.1 0 -Total Square Cm 0.01 0 -Date of Last Picture (Recall this 08/11/22 field) -Photo Taken Yes -Epithelialization Small 1-33% Large 67-100% -Tunneling No -Undermining/Tunneling No -Exudate Amt None Present -Texture ([place]-wound Skin Appearance) Scarring -Moisture ([place]-wound Skin Appearance) Dry/Scaly -Color ([place]-wound Skin Appearance) Assessed -Temperature ([place]-wound Skin No Abnormality Appearance) (Pt Warm) -Tenderness on Palpation ([place]-wound No Skin Appearance) -Ulcer Cleansing Soap and Water -Foul Odor after Cleansing No -Anesthetic Used 4% Lidocaine Solution #4 L Med Cluster -Combined with other wound No -Current Size (cm) - Length 0.1 -Current Size (cm) - Width 0.1 -Current Size (cm) - Depth 0.1 -Total Square Cm 0.01 -Photo Taken No -Epithelialization Large 67-100% -Tunneling No -Undermining/Tunneling No -Exudate Amt None Present -Texture ([place]-wound Skin Appearance) Assessed, Scarring -Moisture ([place]-wound Skin Appearance) Assessed,Dry/ Scaly -Color ([place]-wound Skin Appearance) Assessed -Temperature ([place]-wound Skin No Abnormality Appearance) (Pt Warm) -Tenderness on Palpation ([place]-wound No Skin Appearance) -Ulcer Cleansing Soap and Water -Foul Odor after Cleansing No -Anesthetic Used 4% Lidocaine Solution #2 R Med Ankle -Combined with other wound No No -Current Size (cm) - Length 1.3 0.8 -Current Size (cm) - Width 1.7 0.5 -Current Size (cm) - Depth 0.1 0.1 -Total Square Cm 2.21 0.40 -Date of Last Picture (Recall this 08/11/22 field) -Photo Taken Yes -Epithelialization Small 1-33% None Present -Tunneling No No -Undermining/Tunneling No No -Circular Undermining No No -Exudate Amt Small Small -Exudate Type Serous Serous -Wound Margin Distinct, Distinct, Outline Outline Attached Attached -Granulation Amt Small (1-33%) None Present (0 %) -Slough/Fibrin Yes Yes -Necrosis Amt Large (67-100%) Large (67-100%) -Necrotic Tissue Type Adherent Slough Adherent Slough -Texture ([place]-wound Skin Appearance) Assessed,Callus Assessed, ,Scarring Scarring -Moisture ([place]-wound Skin Appearance) Assessed,Dry/ Assessed,Dry/ Scaly Scaly -Color ([place]-wound Skin Appearance) Assessed Assessed -Temperature ([place]-wound Skin No Abnormality No Abnormality Appearance) (Pt Warm) (Pt Warm) -Tenderness on Palpation ([place]-wound No No Skin Appearance) -Ulcer Cleansing Soap and Water Soap and Water -Foul Odor after Cleansing No No -Anesthetic Used 4% Lidocaine 4% Lidocaine Solution Solution #1 R Sinclair Cluster -Combined with other wound No No -Current Size (cm) - Length 11 11 -Current Size (cm) - Width 12 13 -Current Size (cm) - Depth 0.2 0.2 -Total Square Cm 132 143 -Date of Last Picture (Recall this 08/11/22 field) -Photo Taken Yes -Epithelialization Small 1-33% None Present -Tunneling No No -Undermining/Tunneling No No -Circular Undermining No No -Exudate Amt Medium Large -Exudate Type Serosanguineous Serosanguineous -Wound Margin Distinct, Distinct, Outline Outline Attached Attached -Granulation Amt Medium (34-66%) Medium (34-66%) -Granulation Quality Red Red -Slough/Fibrin Yes Yes -Necrosis Amt Medium (34-66%) Medium (34-66%) -Necrotic Tissue Type Adherent Slough Adherent Slough -Texture ([place]-wound Skin Appearance) Assessed, Assessed, Scarring Scarring -Moisture ([place]-wound Skin Appearance) Assessed,Dry/ Assessed,Dry/ Scaly Scaly -Color ([place]-wound Skin Appearance) Assessed Assessed, Hemosiderin Staining -Temperature ([place]-wound Skin No Abnormality No Abnormality Appearance) (Pt Warm) (Pt Warm) -Tenderness on Palpation ([place]-wound No No Skin Appearance) -Ulcer Cleansing Soap and Water Soap and Water -Foul Odor after Cleansing No No -Anesthetic Used 4% Lidocaine 4% Lidocaine Solution Solution Lower Limb Edema Present Yes Yes Right Calf (cm) 53 53.2 Right Ankle (cm) 34.5 32 Left Calf (cm) 47.5 42 Left Ankle (cm) 33.8 31.7 WC - Nurse 2 - General Ulcer CM Notes Start: 07/28/22 10:28 Freq: Status: Active Protocol: Activity Type Activity Date Activity User E-sign Co-sign Detail Recorded Client Recorded Date Recorded By Document 07/28/22 10:50 MW [id number] 07/28/22 11:04 MW Edit Result 07/28/22 10:50 MW (1) [id number] 07/28/22 11:08 MW Document 08/11/22 11:10 MW [id number] 08/11/22 11:21 MW (1) #2 R Med Ankle - Debridement, SubQ, ea addt'l 20sq cm => 6 or part thereof 07/28/22 08/11/22 10:50 11:10 Wound Center Nurse 2 #5- L 3RD TOE -Time 10:50 11:11 -Correct Patient Yes Yes -Correct Side, Site, Position Yes Yes -Correct Procedure Yes Yes -Procedure Performed No No -Post Debridement (cm) - Length 0.1 0 -Post Debridement (cm) - Width 0.1 0 -Post Debridement (cm) - Depth 0.1 -Total Square (Post) (cm) 0.01 0 -Tunneling No -Undermining/Tunneling No -Circular Undermining No -Wound/Ulcer Outcome Not Healed Healed- Epithelialized -Ulcer Cleansing Rinsed/ Irrigated with Saline #4 L Med Cluster -Time 10:51 -Correct Patient Yes -Correct Side, Site, Position Yes -Correct Procedure Yes -Procedure Performed No -Post Debridement (cm) - Length 0 -Post Debridement (cm) - Width 0 -Post Debridement (cm) - Depth 0 -Total Square (Post) (cm) 0 -Wound/Ulcer Outcome Healed- Epithelialized #2 R Med Ankle -Time 10:52 11:11 -Correct Patient Yes Yes -Correct Side, Site, Position Yes Yes -Correct Procedure Yes Yes -Procedure Performed Yes Yes -Type of Procedure Debridement Debridement -Clinical Debridement Subcutaneous Subcutaneous -Tissue Removed Subcutaneous Subcutaneous -Post Debridement (cm) - Length 1.5 0.7 -Post Debridement (cm) - Width 2.0 1.8 -Post Debridement (cm) - Depth 0.1 0.1 -Total Square (Post) (cm) 3.00 1.26 -Area of Debridement (cm) - Length 1.5 0.7 -Area of Debridement (cm) - Width 2.0 1.8 -Total Square (Area) (cm) 3.00 1.26 -Tunneling No No -Undermining/Tunneling No No -Circular Undermining No No -Wound/Ulcer Outcome Not Healed Not Healed -Ulcer Cleansing Rinsed/ Rinsed/ Irrigated with Irrigated with Saline Saline -Foul Odor after Cleansing No No -Bioengineered Tissue No No -Bleeding Controlled with Pressure Pressure -Treatment Response Procedure Procedure Tolerated Well Tolerated Well -Offloading No No -Debridement - Subq, 1st 20sq cm Yes Yes -Debridement, SubQ, ea addt'l 20sq cm 6 6 or part thereof #1 R Sinclair Cluster -Time 10:53 11:12 -Correct Patient Yes Yes -Correct Side, Site, Position Yes Yes -Correct Procedure Yes Yes -Procedure Performed Yes Yes -Type of Procedure Debridement Debridement -Clinical Debridement Subcutaneous Subcutaneous -Tissue Removed Subcutaneous Subcutaneous -Post Debridement (cm) - Length 11.0 11.5 -Post Debridement (cm) - Width 12.5 12.0 -Post Debridement (cm) - Depth 0.2 0.3 -Total Square (Post) (cm) 137.50 138.00 -Area of Debridement (cm) - Length 11.0 11.5 -Area of Debridement (cm) - Width 12.5 12.0 -Total Square (Area) (cm) 137.50 138.00 -Tunneling No No -Undermining/Tunneling No No -Circular Undermining No No -Wound/Ulcer Outcome Not Healed Not Healed -Ulcer Cleansing Rinsed/ Rinsed/ Irrigated with Irrigated with Saline Saline -Foul Odor after Cleansing No No -Bioengineered Tissue No No -Bleeding Controlled with Pressure Pressure -Treatment Response Procedure Procedure Tolerated Well Tolerated Well -Offloading No No -Debridement - Subq, 1st 20sq cm No No Pain Scale: 0-10 Numeric Is Patient Pain Free? Yes Yes WC - Nurse 3 - General Ulcer D/C NN Start: 07/28/22 10:28 Freq: Status: Active Protocol: Activity Type Activity Date Activity User E-sign Co-sign Detail Recorded Client Recorded Date Recorded By Document 07/28/22 11:35 [facility] [id number] 07/28/22 11:36 [facility] Document 08/11/22 11:31 [facility] [id number] 08/11/22 11:32 BMF 07/28/22 08/11/22 11:35 11:31 Wound Care Nurse 3 #5- L 3RD TOE -Ulcer Cleansing Rinsed/ Irrigated with Saline -Foul Odor after Cleansing No -Primary Dressing Applied Aquacel Extra -Primary Dressing Covered/Secured with Dry Gauze & Roll Gauze, Secured with Tape -Aquacel Extra 1 #2 R Med Ankle -Ulcer Cleansing Rinsed/ Rinsed/ Irrigated with Irrigated with Saline Saline -Foul Odor after Cleansing No No -Primary Dressing Applied Aquacel Extra Aquacel Extra -Other Dressing drsg 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 -Primary Dressing Covered/Secured with Dry Gauze & Dry Gauze & Roll Gauze, Roll Gauze, Secured with Secured with Tape Tape -Other Covering abd -Aquacel Extra 0 1 #1 R Sinclair Cluster -Ulcer Cleansing Rinsed/ Rinsed/ Irrigated with Irrigated with Saline Saline -Foul Odor after Cleansing No No -Primary Dressing Applied Aquacel Extra Aquacel Extra -Other Dressing abd; drsg 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 -Primary Dressing Covered/Secured with Dry Gauze & Dry Gauze & Roll Gauze, Roll Gauze, Secured with Secured with Tape Tape -Other Covering abd -Aquacel Extra 0 0 ble -Multi-Layered Wrap Application Multi-Layer Comp - Bilat ($ ) -Tubular Bandage Single Layer -Size of Tubigrip Used Size F -Size F ($) 2 -Other applied 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 Treatment Response Procedure Procedure Tolerated Well Tolerated Well Pain Scale: 0-10 Numeric Is Patient Pain Free? Yes Yes WC - Visit Discharge Discharge Condition Stable Stable Ambulatory Status Wheelchair Wheelchair Transportation ecf Facility Type [facility] Other assisted living Additional Wound Wound debrided: Left medial ankle Type of Debridement: Excisional debridement Anesthesia Used: 4% Lidocaine Solution Depth: Down to and including healthy tissue and in the subcutaneous layer Percentage of wound debrided: 100 Instrument Used: 7mm curette Tissue Removed: Slough and devitalized Severity: Fat Layer Exposed Amount of bleeding with debridement: Mild Bleeding Controlled with: Pressure Patient tolerated procedure: Patient tolerated procedure well Assessment/Plan Assessment/Plan (1) Ulcer of left lower extremity with fat layer exposed: CODE(S): L97.922 - Non-pressure chronic ulcer of unspecified part of left lower leg with fat layer exposed (2) Ulcer of right lower extremity with fat layer exposed: CODE(S): L97.912 - Non-pressure chronic ulcer of unspecified part of right lower leg with fat layer exposed (3) Ulcer of right foot with fat layer exposed: CODE(S): L97.512 - Non-pressure 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 Left stays healed. Right sinclair still with no significant improvement and concern for increasing depth. Culture taken, will review. Continue Aquacel extra to all ulcers with ABD over top however, will switch to daily/twice daily dressing. Tubigrip and Hiro wrap for edema management. Protein supplements twice daily. Labs have been ordered including CBC, CMP, A1c, CRP, yet to get this done at his facility. Will review when available. His questions were answered and he was advised to call with any further questions or concerns. Follow-up in 1 week. This note was generated with [employer] dictation software. It may contain incorrect words, spelling, and punctuation that were not noted in checking the note before signing.
[2022-08-18 10:10] VITALS: BP 134/50; PULSE 78; RESP 16; TEMP 35.7
--- NOTE | 2022-08-18 13:45 | PN.PCM_ITS ---
History of Present Illness Date of Service: 08/18/22 Chief Complaint: Bilateral lower extremity ulcers History of Wound: Mr. Boles is an 82-year-old currently residing at [facility] who presents due to nonhealing bilateral lower extremity ulceration. Has been present for some months. Has had some dressing changes done at his facility without any significant improvement. 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 Not very active. Significant bilateral lower extremity edema. He denies chills, fever or feeling of unwell. He states that his appetite is good. Progress of Wound: Right lower extremity edema and ulcers look better than it did last week. Dressing was changed to Aquacel daily with Tubigrip and Hiro wrap for edema management. Has tolerated this well so far. Objective Data Objective Data Vital Signs: Vital Signs Temp Pulse Resp BP O2 Del Method 96.2 F L 78 16 134/50 H Room Air 08/18/22 10:10 08/18/22 10:10 08/18/22 10:10 08/18/22 10:10 08/18/22 10:10 Oxygen Delivery Method Room Air Lab / Micro Data Micro: Microbiology 08/11/22 11:15 Wound Abcess - Leg, Right Gram Stain - Final 08/11/22 11:15 Wound Abcess - Leg, Right Wound Culture - Final Pseudomonas aeroginosa Staphylococcus aureus Proteus mirabilis 08/11/22 11:15 Wound Abcess - Leg, Right Anaerobic Culture - Final Anaerobic cocci Charges/Coding Procedures Integumentary 111xxx-113xx: [id number] Jaye subq tissue 20 sq cm/< Add On Codes: 18404 Jaye subq tissue add-on (x2. Additional square centimeter debrided, please refer to clinical note.) Physical Exam Const alert, oriented x3 and no apparent distress General Appearance: cooperative, comfortable and well kempt HEENT normocephalic and head/scalp atraumatic Eyes EOMs intact bilaterally General Eye: normal appearance of both eyes Neck full ROM General: normal visual inspection Resp normal respiratory effort Effort and Inspection: able to speak in complete sentences Extremity General Extremity: edema Skin Wounds: wounds noted Neuro oriented x3, CN's II-XII intact bilaterally, moves all extremities and no focal motor deficits Psych mental status grossly normal, thought process normal, cooperative and affect normal Debridement Note Debridement Note Wound debrided: Right sinclair cluster ( lateral ) Type of Debridement: Excisional debridement Anesthesia Used: 4% Lidocaine Solution Depth: Down to and including healthy tissue and in the subcutaneous layer Percentage of wound debrided: 100 Instrument Used: 7mm curette Tissue Removed: Slough and devitalized tissue Severity: Fat Layer Exposed Amount of bleeding with debridement: Mild Bleeding Controlled with: Pressure Patient tolerated procedure: Patient tolerated procedure well Post-Debridement Measurements and Additional Note: Post-Debridement Measurements/Treatment - Nurse 1 - General Ulcer Assessment Start: 07/28/22 10:28 Freq: Status: Active Protocol: LINDA Activity Type Activity Date Activity User E-sign Co-sign Detail Recorded Client Recorded Date Recorded By Document 07/28/22 10:28 [facility] [id number] 07/28/22 10:33 BMF Document 08/11/22 10:36 DL [id number] 08/11/22 10:52 DL Document 08/18/22 10:10 [facility] [id number] 08/18/22 10:21 BM 07/28/22 08/11/22 08/18/22 10:28 10:36 10:10 - Today's Visit Information Type of service Follow-up Visit Follow-up Visit Follow-up Visit (Physician/POWER TRANSFORMER REPAIR SUPERVISOR (Physician/POWER TRANSFORMER REPAIR SUPERVISOR (Physician/POWER TRANSFORMER REPAIR SUPERVISOR ) ) ) Arrival Mode Wheelchair Wheelchair Wheelchair Transfer Assistance Other Manual None Transfer Assist (Other) stand by x2 Patient Identification Verified (Name & Yes Yes Yes ) Patient Requires Transmission-Based No No No Precautions Vital Signs Temperature (97.8 F-99.1 F) 96.8 F L 97.6 F L 96.2 F L Temperature Source Temporal Temporal Temporal Pulse Rate (60-100) 74 71 78 Pulse Location Monitor Monitor Monitor Respiratory Rate (12-18) 16 22 H 16 Respiratory rate source Observation Observation Observation Oxygen Delivery Method Room Air Room Air Blood Pressure (90/60-120/80) 127/62 H 113/64 134/50 H Blood Pressure Mean (mm Hg) 83 80 78 Source Monitor Monitor Monitor Position Sitting Sitting Blood Pressure Location Right Forearm Left Forearm History Since Last Visit- (Skip if this is Patient's initial visit) Have you changed medications since your No No last visit? Any new allergies or adverse reactions No No Had a fall/change in ADL's that may No No increase risk of falls Signs or symptoms of abuse and/or No No neglect since last visit Have you been in the hospital since your No No last visit? Has dressing in place as prescribed No Yes Has compression in place as prescribed No Yes Has offloadiing in place as prescribed N/A N/A Experienced any changes in pain level or No No No management Left Footwear Regular Shoe Slipper Regular Shoe Right Footwear Regular Shoe Regular Shoe Regular Shoe Other Footwear wearing snow boots Pain Scale: 0-10 Numeric Is Patient Pain Free? Yes Yes Yes WC - Nurse 1 - General Ulcer Measurement Start: 07/28/22 10:28 Freq: Status: Active Protocol: Activity Type Activity Date Activity User E-sign Co-sign Detail Recorded Client Recorded Date Recorded By Document 07/28/22 10:28 [facility] [id number] 07/28/22 10:33 BMF Document 08/11/22 10:36 DL [id number] 08/11/22 10:52 DL Document 08/18/22 10:10 [facility] [id number] 08/18/22 10:21 BMF 07/28/22 08/11/22 08/18/22 10:28 10:36 10:10 Wound Center Nurse 1 #5- L 3RD TOE -Combined with other wound No No -Current Size (cm) - Length 0.1 0 -Current Size (cm) - Width 0.1 0 -Current Size (cm) - Depth 0.1 0 -Total Square Cm 0.01 0 -Date of Last Picture (Recall this 08/11/22 field) -Photo Taken Yes -Epithelialization Small 1-33% Large 67-100% -Tunneling No -Undermining/Tunneling No -Exudate Amt None Present -Texture ([place]-wound Skin Appearance) Scarring -Moisture ([place]-wound Skin Appearance) Dry/Scaly -Color ([place]-wound Skin Appearance) Assessed -Temperature ([place]-wound Skin No Abnormality Appearance) (Pt Warm) -Tenderness on Palpation ([place]-wound No Skin Appearance) -Ulcer Cleansing Soap and Water -Foul Odor after Cleansing No -Anesthetic Used 4% Lidocaine Solution #4 L Med Cluster -Combined with other wound No -Current Size (cm) - Length 0.1 -Current Size (cm) - Width 0.1 -Current Size (cm) - Depth 0.1 -Total Square Cm 0.01 -Photo Taken No -Epithelialization Large 67-100% -Tunneling No -Undermining/Tunneling No -Exudate Amt None Present -Texture ([place]-wound Skin Appearance) Assessed, Scarring -Moisture ([place]-wound Skin Appearance) Assessed,Dry/ Scaly -Color ([place]-wound Skin Appearance) Assessed -Temperature ([place]-wound Skin No Abnormality Appearance) (Pt Warm) -Tenderness on Palpation ([place]-wound No Skin Appearance) -Ulcer Cleansing Soap and Water -Foul Odor after Cleansing No -Anesthetic Used 4% Lidocaine Solution #1 R Sinclair Cluster -Combined with other wound No No -Current Size (cm) - Length 11 11 10 -Current Size (cm) - Width 12 13 12.1 -Current Size (cm) - Depth 0.2 0.2 0.1 -Total Square Cm 132 143 121.0 -Date of Last Picture (Recall this 08/11/22 field) -Photo Taken Yes No -Epithelialization Small 1-33% None Present -Tunneling No No -Undermining/Tunneling No No -Circular Undermining No No -Exudate Amt Medium Large Medium -Exudate Type Serosanguineous Serosanguineous Serosanguineous -Wound Margin Distinct, Distinct, Thickened Outline Outline Attached Attached -Granulation Amt Medium (34-66%) Medium (34-66%) None Present (0 %) -Granulation Quality Red Red -Slough/Fibrin Yes Yes -Necrosis Amt Medium (34-66%) Medium (34-66%) Large (67-100%) -Necrotic Tissue Type Adherent Slough Adherent Slough Adherent Slough -Structure Exposed N/A -Texture ([place]-wound Skin Appearance) Assessed, Assessed, Scarring Scarring Scarring -Moisture ([place]-wound Skin Appearance) Assessed,Dry/ Assessed,Dry/ Weeping Scaly Scaly -Color ([place]-wound Skin Appearance) Assessed Assessed, Hemosiderin Hemosiderin Staining Staining -Temperature ([place]-wound Skin No Abnormality No Abnormality No Abnormality Appearance) (Pt Warm) (Pt Warm) (Pt Warm) -Tenderness on Palpation ([place]-wound No No Skin Appearance) -Ulcer Cleansing Soap and Water Soap and Water Soap and Water -Foul Odor after Cleansing No No Yes, Due to Product Use -Anesthetic Used 4% Lidocaine 4% Lidocaine 4% Lidocaine Solution Solution Solution #2 R Med Ankle -Combined with other wound No No -Current Size (cm) - Length 1.3 0.8 1.3 -Current Size (cm) - Width 1.7 0.5 1.9 -Current Size (cm) - Depth 0.1 0.1 0.1 -Total Square Cm 2.21 0.40 2.47 -Date of Last Picture (Recall this 08/11/22 field) -Photo Taken Yes No -Epithelialization Small 1-33% None Present -Tunneling No No -Undermining/Tunneling No No -Circular Undermining No No -Exudate Amt Small Small Medium -Exudate Type Serous Serous Serosanguineous -Wound Margin Distinct, Distinct, Distinct, Outline Outline Outline Attached Attached Attached -Granulation Amt Small (1-33%) None Present (0 Medium (34-66%) %) -Slough/Fibrin Yes Yes -Necrosis Amt Large (67-100%) Large (67-100%) Medium (34-66%) -Necrotic Tissue Type Adherent Slough Adherent Slough Adherent Slough -Structure Exposed N/A -Texture ([place]-wound Skin Appearance) Assessed,Callus Assessed, Scarring ,Scarring Scarring -Moisture ([place]-wound Skin Appearance) Assessed,Dry/ Assessed,Dry/ No Abnormality Scaly Scaly -Color ([place]-wound Skin Appearance) Assessed Assessed Hemosiderin Staining -Temperature ([place]-wound Skin No Abnormality No Abnormality No Abnormality Appearance) (Pt Warm) (Pt Warm) (Pt Warm) -Tenderness on Palpation ([place]-wound No No No Skin Appearance) -Ulcer Cleansing Soap and Water Soap and Water Soap and Water -Foul Odor after Cleansing No No No -Anesthetic Used 4% Lidocaine 4% Lidocaine 4% Lidocaine Solution Solution Solution Lower Limb Edema Present Yes Yes Yes Right Calf (cm) 53 53.2 44.7 Right Ankle (cm) 34.5 32 35.4 Left Calf (cm) 47.5 42 41.4 Left Ankle (cm) 33.8 31.7 32.4 WC - Nurse 2 - General Ulcer CM Notes Start: 07/28/22 10:28 Freq: Status: Active Protocol: Activity Type Activity Date Activity User E-sign Co-sign Detail Recorded Client Recorded Date Recorded By Document 07/28/22 10:50 MW [id number] 07/28/22 11:04 MW Edit Result 07/28/22 10:50 MW (1) [id number] 07/28/22 11:08 MW Document 08/11/22 11:10 MW [id number] 08/11/22 11:21 MW Document 08/18/22 10:38 MW [id number] 08/18/22 10:58 MW (1) #2 R Med Ankle - Debridement, SubQ, ea addt'l 20sq cm => 6 or part thereof 07/28/22 08/11/22 08/18/22 10:50 11:10 10:38 Wound Center Nurse 2 #5- L 3RD TOE -Time 10:50 11:11 -Correct Patient Yes Yes -Correct Side, Site, Position Yes Yes -Correct Procedure Yes Yes -Procedure Performed No No -Post Debridement (cm) - Length 0.1 0 -Post Debridement (cm) - Width 0.1 0 -Post Debridement (cm) - Depth 0.1 -Total Square (Post) (cm) 0.01 0 -Tunneling No -Undermining/Tunneling No -Circular Undermining No -Wound/Ulcer Outcome Not Healed Healed- Epithelialized -Ulcer Cleansing Rinsed/ Irrigated with Saline #4 L Med Cluster -Time 10:51 -Correct Patient Yes -Correct Side, Site, Position Yes -Correct Procedure Yes -Procedure Performed No -Post Debridement (cm) - Length 0 -Post Debridement (cm) - Width 0 -Post Debridement (cm) - Depth 0 -Total Square (Post) (cm) 0 -Wound/Ulcer Outcome Healed- Epithelialized #1 R Sinclair Cluster -Time 10:53 11:12 10:40 -Correct Patient Yes Yes Yes -Correct Side, Site, Position Yes Yes Yes -Correct Procedure Yes Yes Yes -Procedure Performed Yes Yes No -Type of Procedure Debridement Debridement -Clinical Debridement Subcutaneous Subcutaneous -Tissue Removed Subcutaneous Subcutaneous -Post Debridement (cm) - Length 11.0 11.5 -Post Debridement (cm) - Width 12.5 12.0 -Post Debridement (cm) - Depth 0.2 0.3 -Total Square (Post) (cm) 137.50 138.00 -Area of Debridement (cm) - Length 11.0 11.5 -Area of Debridement (cm) - Width 12.5 12.0 -Total Square (Area) (cm) 137.50 138.00 -Tunneling No No No -Undermining/Tunneling No No No -Circular Undermining No No No -Wound/Ulcer Outcome Not Healed Not Healed Converted -Ulcer Cleansing Rinsed/ Rinsed/ Rinsed/ Irrigated with Irrigated with Irrigated with Saline Saline Saline -Foul Odor after Cleansing No No No -Bioengineered Tissue No No No -Bleeding Controlled with Pressure Pressure -Treatment Response Procedure Procedure Tolerated Well Tolerated Well -Offloading No No -Debridement - Subq, 1st 20sq cm No No #7 right medial sinclair -Time 10:56 -Correct Patient Yes -Correct Side, Site, Position Yes -Correct Procedure Yes -Procedure Performed Yes -Type of Procedure Debridement -Clinical Debridement Subcutaneous -Tissue Removed Subcutaneous -Post Debridement (cm) - Length 2.3 -Post Debridement (cm) - Width 2.5 -Post Debridement (cm) - Depth 0.3 -Total Square (Post) (cm) 5.75 -Area of Debridement (cm) - Length 2.3 -Area of Debridement (cm) - Width 2.5 -Total Square (Area) (cm) 5.75 -Tunneling No -Undermining/Tunneling No -Circular Undermining No -Wound/Ulcer Outcome Not Healed -Ulcer Cleansing Rinsed/ Irrigated with Saline -Foul Odor after Cleansing No -Bioengineered Tissue No -Bleeding Controlled with Pressure -Treatment Response Procedure Tolerated Well -Offloading No -Debridement - Subq, 1st 20sq cm No #6 right lateral sinclair -Time 10:55 -Correct Patient Yes -Correct Side, Site, Position Yes -Correct Procedure Yes -Procedure Performed Yes -Type of Procedure Debridement -Clinical Debridement Subcutaneous -Tissue Removed Subcutaneous -Post Debridement (cm) - Length 7.2 -Post Debridement (cm) - Width 5.0 -Post Debridement (cm) - Depth 0.3 -Total Square (Post) (cm) 36.00 -Area of Debridement (cm) - Length 7.2 -Area of Debridement (cm) - Width 5.0 -Total Square (Area) (cm) 36.00 -Tunneling No -Undermining/Tunneling No -Circular Undermining No -Wound/Ulcer Outcome Not Healed -Ulcer Cleansing Rinsed/ Irrigated with Saline -Foul Odor after Cleansing No -Bioengineered Tissue No -Bleeding Controlled with Pressure -Treatment Response Procedure Tolerated Well -Offloading No -Debridement - Subq, 1st 20sq cm No #2 R Med Ankle -Time 10:52 11:11 10:39 -Correct Patient Yes Yes Yes -Correct Side, Site, Position Yes Yes Yes -Correct Procedure Yes Yes Yes -Procedure Performed Yes Yes Yes -Type of Procedure Debridement Debridement Debridement -Clinical Debridement Subcutaneous Subcutaneous Subcutaneous -Tissue Removed Subcutaneous Subcutaneous Subcutaneous -Post Debridement (cm) - Length 1.5 0.7 1.3 -Post Debridement (cm) - Width 2.0 1.8 2.0 -Post Debridement (cm) - Depth 0.1 0.1 0.1 -Total Square (Post) (cm) 3.00 1.26 2.60 -Area of Debridement (cm) - Length 1.5 0.7 1.3 -Area of Debridement (cm) - Width 2.0 1.8 2.0 -Total Square (Area) (cm) 3.00 1.26 2.60 -Tunneling No No No -Undermining/Tunneling No No No -Circular Undermining No No No -Wound/Ulcer Outcome Not Healed Not Healed Not Healed -Ulcer Cleansing Rinsed/ Rinsed/ Rinsed/ Irrigated with Irrigated with Irrigated with Saline Saline Saline -Foul Odor after Cleansing No No No -Bioengineered Tissue No No No -Bleeding Controlled with Pressure Pressure Pressure -Treatment Response Procedure Procedure Procedure Tolerated Well Tolerated Well Tolerated Well -Offloading No No No -Debridement - Subq, 1st 20sq cm Yes Yes Yes -Debridement, SubQ, ea addt'l 20sq cm 6 6 or part thereof Pain Scale: 0-10 Numeric Is Patient Pain Free? Yes Yes Yes WC - Nurse 3 - General Ulcer D/C NN Start: 07/28/22 10:28 Freq: Status: Active Protocol: Activity Type Activity Date Activity User E-sign Co-sign Detail Recorded Client Recorded Date Recorded By Document 07/28/22 11:35 [facility] [id number] 07/28/22 11:36 [facility] Document 08/11/22 11:31 [facility] [id number] 08/11/22 11:32 BM 07/28/22 08/11/22 11:35 11:31 Wound Care Nurse 3 #5- L 3RD TOE -Ulcer Cleansing Rinsed/ Irrigated with Saline -Foul Odor after Cleansing No -Primary Dressing Applied Aquacel Extra -Primary Dressing Covered/Secured with Dry Gauze & Roll Gauze, Secured with Tape -Aquacel Extra 1 #1 R Sinclair Cluster -Ulcer Cleansing Rinsed/ Rinsed/ Irrigated with Irrigated with Saline Saline -Foul Odor after Cleansing No No -Primary Dressing Applied Aquacel Extra Aquacel Extra -Other Dressing abd; drsg per dl health and safety manager -Primary Dressing Covered/Secured with Dry Gauze & Dry Gauze & Roll Gauze, Roll Gauze, Secured with Secured with Tape Tape -Other Covering abd -Aquacel Extra 0 0 #2 R Med Ankle -Ulcer Cleansing Rinsed/ Rinsed/ Irrigated with Irrigated with Saline Saline -Foul Odor after Cleansing No No -Primary Dressing Applied Aquacel Extra Aquacel Extra -Other Dressing drsg per dl health and safety manager -Primary Dressing Covered/Secured with Dry Gauze & Dry Gauze & Roll Gauze, Roll Gauze, Secured with Secured with Tape Tape -Other Covering abd -Aquacel Extra 0 1 ble -Multi-Layered Wrap Application Multi-Layer Comp - Bilat ($ ) -Tubular Bandage Single Layer -Size of Tubigrip Used Size F -Size F ($) 2 -Other applied per dl health and safety manager Treatment Response Procedure Procedure Tolerated Well Tolerated Well Pain Scale: 0-10 Numeric Is Patient Pain Free? Yes Yes WC - Visit Discharge Discharge Condition Stable Stable Ambulatory Status Wheelchair Wheelchair Transportation ecf Facility Type Hydrochlor[facility] Supervisor Care Facility Other assisted living Additional Wound Wound debrided: Right Sinclair ( Medial ) Type of Debridement: Excisional debridement Anesthesia Used: 4% Lidocaine Solution Depth: in the subcutaneous layer Percentage of wound debrided: 100 Instrument Used: 7mm curette Tissue Removed: Slough and devitalized tissue Severity: Fat Layer Exposed Amount of bleeding with debridement: Mild Bleeding Controlled with: Pressure Patient tolerated procedure: Patient tolerated procedure well Additional Wound Wound debrided: Right Medial Ankle Type of Debridement: Excisional debridement Anesthesia Used: 4% Lidocaine Solution Depth: Down to and including healthy tissue and in the subcutaneous layer Percentage of wound debrided: 100 Instrument Used: 7mm curette Tissue Removed: Slough and devitalized tissue Severity: Fat Layer Exposed Amount of bleeding with debridement: Mild Bleeding Controlled with: Pressure Patient tolerated procedure: Patient tolerated procedure well Assessment/Plan Assessment/Plan (1) Ulcer of left lower extremity with fat layer exposed: CODE(S): L97.922 - Non-pressure chronic ulcer of unspecified part of left lower leg with fat layer exposed (2) Ulcer of right lower extremity with fat layer exposed: CODE(S): L97.912 - Non-pressure chronic ulcer of unspecified part of right lower leg with fat layer exposed (3) Ulcer of right foot with fat layer exposed: CODE(S): L97.512 - Non-pressure 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 Right lower extremity does look better than it did last week. Some improvement in edema and skin integrity. No significant change in wound size but depth is improved. Culture from last week reviewed, rare/minimal growth. No significant concerns for clinical infection. Continue Aquacel daily however, will also start mupirocin to the ulcer base as well. Cover with ABD. Continue Tubigrip and Hiro wrap for edema management. Protein supplements twice daily. Labs have been ordered including CBC, CMP, A1c, CRP, yet to get this done at his facility. Will review when available. His questions were answered and he was advised to call with any further questions or concerns. Follow-up in 1 week. This note was generated with [employer] dictation software. It may contain incorrect words, spelling, and punctuation that were not noted in checking the note before signing.
[2022-08-25 10:26] VITALS: BP 119/62; PULSE 74; RESP 20; TEMP 36.6
--- NOTE | 2022-08-25 11:37 | PCM.WC.PN ---
History of Present Illness Date of Service: 08/25/22 Chief Complaint: Bilateral lower extremity ulcers History of Wound: Mr. Boles is an 82-year-old currently residing at [facility] who presents due to nonhealing bilateral lower extremity ulceration. Has been present for some months. Has had some dressing changes done at his facility without any significant improvement. 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 Not very active. Significant bilateral lower extremity edema. He denies chills, fever or feeling of unwell. He states that his appetite is good. Progress of Wound: No new concerns at this time. Stable wound/Ulcer bed but still significant edema. Objective Data Objective Data Vital Signs: Vital Signs Temp Pulse Resp BP O2 Del Method 97.8 F 74 20 H 119/62 Room Air 08/25/22 10:26 08/25/22 10:26 08/25/22 10:26 08/25/22 10:26 08/18/22 10:10 Oxygen Delivery Method Room Air Lab / Micro Data Micro: Microbiology 08/11/22 11:15 Wound Abcess - Leg, Right Gram Stain - Final 08/11/22 11:15 Wound Abcess - Leg, Right Wound Culture - Final Pseudomonas aeroginosa Staphylococcus aureus Proteus mirabilis 08/11/22 11:15 Wound Abcess - Leg, Right Anaerobic Culture - Final Anaerobic cocci Charges/Coding Procedures Integumentary 111xxx-113xx: [id number] Jaye subq tissue 20 sq cm/< Add On Codes: 14182 Jaye subq tissue add-on ( x2. Additional square centimeter debrided, please refer to clinical note) Physical Exam Const alert, oriented x3 and no apparent distress General Appearance: cooperative, comfortable and well kempt HEENT normocephalic and head/scalp atraumatic Eyes EOMs intact bilaterally General Eye: normal appearance of both eyes Neck full ROM General: normal visual inspection Resp normal respiratory effort Effort and Inspection: able to speak in complete sentences Extremity General Extremity: edema Skin Wounds: wounds noted Neuro oriented x3, CN's II-XII intact bilaterally, moves all extremities and no focal motor deficits Psych mental status grossly normal, thought process normal, cooperative and affect normal Debridement Note Debridement Note Wound debrided: Right Sinclair ( Lateral cluster ) Type of Debridement: Excisional debridement Anesthesia Used: 4% Lidocaine Solution Depth: Down to and including healthy tissue and in the subcutaneous layer Percentage of wound debrided: 100 Instrument Used: 7mm curette Tissue Removed: Slough and devitalized tissue Severity: Fat Layer Exposed Amount of bleeding with debridement: Mild Bleeding Controlled with: Pressure and Compression and gauze Patient tolerated procedure: Patient tolerated procedure well Post-Debridement Measurements and Additional Note: Post-Debridement Measurements/Treatment - Nurse 1 - General Ulcer Assessment Start: 07/28/22 10:28 Freq: Status: Active Protocol: LINDA Activity Type Activity Date Activity User E-sign Co-sign Detail Recorded Client Recorded Date Recorded By Document 07/28/22 10:28 [facility] [id number] 07/28/22 10:33 BM Document 08/11/22 10:36 DL [id number] 08/11/22 10:52 DL Document 08/18/22 10:10 [facility] [id number] 08/18/22 10:21 [facility] Document 08/25/22 10:26 DL [id number] 08/25/22 10:37 DL 07/28/22 08/11/22 08/18/22 10:28 10:36 10:10 - Today's Visit Information Type of service Follow-up Visit Follow-up Visit Follow-up Visit (Physician/ICING MIXER (Physician/ICING MIXER (Physician/ICING MIXER ) ) ) Arrival Mode Wheelchair Wheelchair Wheelchair Transfer Assistance Other Manual None Transfer Assist (Other) stand by x2 Patient Identification Verified (Name & Yes Yes Yes ) Patient Requires Transmission-Based No No No Precautions Safety Precautions Vital Signs Temperature (97.8 F-99.1 F) 96.8 F L 97.6 F L 96.2 F L Temperature Source Temporal Temporal Temporal Pulse Rate (60-100) 74 71 78 Pulse Location Monitor Monitor Monitor Respiratory Rate (12-18) 16 22 H 16 Respiratory rate source Observation Observation Observation Oxygen Delivery Method Room Air Room Air Blood Pressure (90/60-120/80) 127/62 H 113/64 134/50 H Blood Pressure Mean (mm Hg) 83 80 78 Source Monitor Monitor Monitor Position Sitting Sitting Blood Pressure Location Right Forearm Left Forearm History Since Last Visit- (Skip if this is Patient's initial visit) Have you changed medications since your No No last visit? Any new allergies or adverse reactions No No Had a fall/change in ADL's that may No No increase risk of falls Signs or symptoms of abuse and/or No No neglect since last visit Have you been in the hospital since your No No last visit? Has dressing in place as prescribed No Yes Has compression in place as prescribed No Yes Has offloadiing in place as prescribed N/A N/A Experienced any changes in pain level or No No No management Left Footwear Regular Shoe Slipper Regular Shoe Right Footwear Regular Shoe Regular Shoe Regular Shoe Other Footwear wearing snow boots Pain Scale: 0-10 Numeric Is Patient Pain Free? Yes Yes Yes 08/25/22 10:26 WC - Today's Visit Information Type of service Follow-up Visit (Physician/ICING MIXER ) Arrival Mode Wheelchair Transfer Assistance Manual Transfer Assist (Other) x1 Patient Identification Verified (Name & Yes ) Patient Requires Transmission-Based No Precautions Safety Precautions Fall Prevention Vital Signs Temperature (97.8 F-99.1 F) 97.8 F Temperature Source Temporal Pulse Rate (60-100) 74 Pulse Location Monitor Respiratory Rate (12-18) 20 H Respiratory rate source Observation Oxygen Delivery Method Blood Pressure (90/60-120/80) 119/62 Blood Pressure Mean (mm Hg) 81 Source Monitor Position Blood Pressure Location History Since Last Visit- (Skip if this is Patient's initial visit) Have you changed medications since your No last visit? Any new allergies or adverse reactions No Had a fall/change in ADL's that may No increase risk of falls Signs or symptoms of abuse and/or No neglect since last visit Have you been in the hospital since your No last visit? Has dressing in place as prescribed Yes Has compression in place as prescribed Yes Has offloadiing in place as prescribed N/A Experienced any changes in pain level or No management Left Footwear Right Footwear Other Footwear Pain Scale: 0-10 Numeric Is Patient Pain Free? Yes - Nurse 1 - General Ulcer Measurement Start: 07/28/22 10:28 Freq: Status: Active Protocol: Activity Type Activity Date Activity User E-sign Co-sign Detail Recorded Client Recorded Date Recorded By Document 07/28/22 10:28 [facility] [id number] 07/28/22 10:33 BM Document 08/11/22 10:36 DL [id number] 08/11/22 10:52 DL Document 08/18/22 10:10 BM [id number] 08/18/22 10:21 BMF Document 08/25/22 10:26 DL [id number] 08/25/22 10:37 DL 07/28/22 08/11/22 08/18/22 10:28 10:36 10:10 Wound Center Nurse 1 #5- L 3RD TOE -Combined with other wound No No -Current Size (cm) - Length 0.1 0 -Current Size (cm) - Width 0.1 0 -Current Size (cm) - Depth 0.1 0 -Total Square Cm 0.01 0 -Date of Last Picture (Recall this 08/11/22 field) -Photo Taken Yes -Epithelialization Small 1-33% Large 67-100% -Tunneling No -Undermining/Tunneling No -Exudate Amt None Present -Texture ([place]-wound Skin Appearance) Scarring -Moisture ([place]-wound Skin Appearance) Dry/Scaly -Color ([place]-wound Skin Appearance) Assessed -Temperature ([place]-wound Skin No Abnormality Appearance) (Pt Warm) -Tenderness on Palpation ([place]-wound No Skin Appearance) -Ulcer Cleansing Soap and Water -Foul Odor after Cleansing No -Anesthetic Used 4% Lidocaine Solution #4 L Med Cluster -Combined with other wound No -Current Size (cm) - Length 0.1 -Current Size (cm) - Width 0.1 -Current Size (cm) - Depth 0.1 -Total Square Cm 0.01 -Photo Taken No -Epithelialization Large 67-100% -Tunneling No -Undermining/Tunneling No -Exudate Amt None Present -Texture ([place]-wound Skin Appearance) Assessed, Scarring -Moisture ([place]-wound Skin Appearance) Assessed,Dry/ Scaly -Color ([place]-wound Skin Appearance) Assessed -Temperature ([place]-wound Skin No Abnormality Appearance) (Pt Warm) -Tenderness on Palpation ([place]-wound No Skin Appearance) -Ulcer Cleansing Soap and Water -Foul Odor after Cleansing No -Anesthetic Used 4% Lidocaine Solution #1 R Sinclair Cluster -Combined with other wound No No -Current Size (cm) - Length 11 11 10 -Current Size (cm) - Width 12 13 12.1 -Current Size (cm) - Depth 0.2 0.2 0.1 -Total Square Cm 132 143 121.0 -Date of Last Picture (Recall this 08/11/22 field) -Photo Taken Yes No -Epithelialization Small 1-33% None Present -Tunneling No No -Undermining/Tunneling No No -Circular Undermining No No -Exudate Amt Medium Large Medium -Exudate Type Serosanguineous Serosanguineous Serosanguineous -Wound Margin Distinct, Distinct, Thickened Outline Outline Attached Attached -Granulation Amt Medium (34-66%) Medium (34-66%) None Present (0 %) -Granulation Quality Red Red -Slough/Fibrin Yes Yes -Necrosis Amt Medium (34-66%) Medium (34-66%) Large (67-100%) -Necrotic Tissue Type Adherent Slough Adherent Slough Adherent Slough -Structure Exposed N/A -Texture ([place]-wound Skin Appearance) Assessed, Assessed, Scarring Scarring Scarring -Moisture ([place]-wound Skin Appearance) Assessed,Dry/ Assessed,Dry/ Weeping Scaly Scaly -Color ([place]-wound Skin Appearance) Assessed Assessed, Hemosiderin Hemosiderin Staining Staining -Temperature ([place]-wound Skin No Abnormality No Abnormality No Abnormality Appearance) (Pt Warm) (Pt Warm) (Pt Warm) -Tenderness on Palpation ([place]-wound No No Skin Appearance) -Ulcer Cleansing Soap and Water Soap and Water Soap and Water -Foul Odor after Cleansing No No Yes, Due to Product Use -Anesthetic Used 4% Lidocaine 4% Lidocaine 4% Lidocaine Solution Solution Solution #7 right medial sinclair -Current Size (cm) - Length -Current Size (cm) - Width -Current Size (cm) - Depth -Total Square Cm -Photo Taken -Exudate Amt -Exudate Type -Wound Margin -Granulation Amt -Granulation Quality -Necrosis Amt -Necrotic Tissue Type -Structure Exposed -Texture ([place]-wound Skin Appearance) -Moisture ([place]-wound Skin Appearance) -Color ([place]-wound Skin Appearance) -Temperature ([place]-wound Skin Appearance) -Ulcer Cleansing -Foul Odor after Cleansing -Anesthetic Used #6 right lateral sinclair -Current Size (cm) - Length -Current Size (cm) - Width -Current Size (cm) - Depth -Total Square Cm -Photo Taken -Exudate Amt -Exudate Type -Wound Margin -Granulation Amt -Granulation Quality -Necrosis Amt -Necrotic Tissue Type -Structure Exposed -Texture ([place]-wound Skin Appearance) -Moisture ([place]-wound Skin Appearance) -Color ([place]-wound Skin Appearance) -Temperature ([place]-wound Skin Appearance) -Tenderness on Palpation ([place]-wound Skin Appearance) -Ulcer Cleansing -Foul Odor after Cleansing -Anesthetic Used #2 R Med Ankle -Combined with other wound No No -Current Size (cm) - Length 1.3 0.8 1.3 -Current Size (cm) - Width 1.7 0.5 1.9 -Current Size (cm) - Depth 0.1 0.1 0.1 -Total Square Cm 2.21 0.40 2.47 -Date of Last Picture (Recall this 08/11/22 field) -Photo Taken Yes No -Epithelialization Small 1-33% None Present -Tunneling No No -Undermining/Tunneling No No -Circular Undermining No No -Exudate Amt Small Small Medium -Exudate Type Serous Serous Serosanguineous -Wound Margin Distinct, Distinct, Distinct, Outline Outline Outline Attached Attached Attached -Granulation Amt Small (1-33%) None Present (0 Medium (34-66%) %) -Granulation Quality -Slough/Fibrin Yes Yes -Necrosis Amt Large (67-100%) Large (67-100%) Medium (34-66%) -Necrotic Tissue Type Adherent Slough Adherent Slough Adherent Slough -Structure Exposed N/A -Texture ([place]-wound Skin Appearance) Assessed,Callus Assessed, Scarring ,Scarring Scarring -Moisture ([place]-wound Skin Appearance) Assessed,Dry/ Assessed,Dry/ No Abnormality Scaly Scaly -Color ([place]-wound Skin Appearance) Assessed Assessed Hemosiderin Staining -Temperature ([place]-wound Skin No Abnormality No Abnormality No Abnormality Appearance) (Pt Warm) (Pt Warm) (Pt Warm) -Tenderness on Palpation ([place]-wound No No No Skin Appearance) -Ulcer Cleansing Soap and Water Soap and Water Soap and Water -Foul Odor after Cleansing No No No -Anesthetic Used 4% Lidocaine 4% Lidocaine 4% Lidocaine Solution Solution Solution Lower Limb Edema Present Yes Yes Yes Right Calf (cm) 53 53.2 44.7 Right Ankle (cm) 34.5 32 35.4 Left Calf (cm) 47.5 42 41.4 Left Ankle (cm) 33.8 31.7 32.4 08/25/22 10:26 Wound Center Nurse 1 #5- L 3RD TOE -Combined with other wound -Current Size (cm) - Length -Current Size (cm) - Width -Current Size (cm) - Depth -Total Square Cm -Date of Last Picture (Recall this field) -Photo Taken -Epithelialization -Tunneling -Undermining/Tunneling -Exudate Amt -Texture ([place]-wound Skin Appearance) -Moisture ([place]-wound Skin Appearance) -Color ([place]-wound Skin Appearance) -Temperature ([place]-wound Skin Appearance) -Tenderness on Palpation ([place]-wound Skin Appearance) -Ulcer Cleansing -Foul Odor after Cleansing -Anesthetic Used #4 L Med Cluster -Combined with other wound -Current Size (cm) - Length -Current Size (cm) - Width -Current Size (cm) - Depth -Total Square Cm -Photo Taken -Epithelialization -Tunneling -Undermining/Tunneling -Exudate Amt -Texture ([place]-wound Skin Appearance) -Moisture ([place]-wound Skin Appearance) -Color ([place]-wound Skin Appearance) -Temperature ([place]-wound Skin Appearance) -Tenderness on Palpation ([place]-wound Skin Appearance) -Ulcer Cleansing -Foul Odor after Cleansing -Anesthetic Used #1 R Sinclair Cluster -Combined with other wound -Current Size (cm) - Length -Current Size (cm) - Width -Current Size (cm) - Depth -Total Square Cm -Date of Last Picture (Recall this field) -Photo Taken -Epithelialization -Tunneling -Undermining/Tunneling -Circular Undermining -Exudate Amt -Exudate Type -Wound Margin -Granulation Amt -Granulation Quality -Slough/Fibrin -Necrosis Amt -Necrotic Tissue Type -Structure Exposed -Texture ([place]-wound Skin Appearance) -Moisture ([place]-wound Skin Appearance) -Color ([place]-wound Skin Appearance) -Temperature ([place]-wound Skin Appearance) -Tenderness on Palpation ([place]-wound Skin Appearance) -Ulcer Cleansing -Foul Odor after Cleansing -Anesthetic Used #7 right medial sinclair -Current Size (cm) - Length 3 -Current Size (cm) - Width 2.2 -Current Size (cm) - Depth 0.3 -Total Square Cm 6.6 -Photo Taken Yes -Exudate Amt Medium -Exudate Type Serosanguineous -Wound Margin Distinct, Outline Attached -Granulation Amt Large (67-100%) -Granulation Quality Red -Necrosis Amt Small (1-33%) -Necrotic Tissue Type Adherent Slough -Structure Exposed N/A -Texture ([place]-wound Skin Appearance) Scarring -Moisture ([place]-wound Skin Appearance) No Abnormality -Color ([place]-wound Skin Appearance) Mottled -Temperature ([place]-wound Skin No Abnormality Appearance) (Pt Warm) -Ulcer Cleansing Soap and Water -Foul Odor after Cleansing No -Anesthetic Used 4% Lidocaine Solution #6 right lateral sinclair -Current Size (cm) - Length 7.5 -Current Size (cm) - Width 7 -Current Size (cm) - Depth 0.2 -Total Square Cm 52.5 -Photo Taken Yes -Exudate Amt Medium -Exudate Type Serosanguineous -Wound Margin Distinct, Outline Attached -Granulation Amt Large (67-100%) -Granulation Quality Red -Necrosis Amt Small (1-33%) -Necrotic Tissue Type Adherent Slough -Structure Exposed N/A -Texture ([place]-wound Skin Appearance) Scarring -Moisture ([place]-wound Skin Appearance) Dry/Scaly -Color ([place]-wound Skin Appearance) Hemosiderin Staining -Temperature ([place]-wound Skin No Abnormality Appearance) (Pt Warm) -Tenderness on Palpation ([place]-wound No Skin Appearance) -Ulcer Cleansing Soap and Water -Foul Odor after Cleansing No -Anesthetic Used 4% Lidocaine Solution #2 R Med Ankle -Combined with other wound -Current Size (cm) - Length 0.6 -Current Size (cm) - Width 0.4 -Current Size (cm) - Depth 0.1 -Total Square Cm 0.24 -Date of Last Picture (Recall this field) -Photo Taken Yes -Epithelialization -Tunneling -Undermining/Tunneling -Circular Undermining -Exudate Amt Medium -Exudate Type Serosanguineous -Wound Margin Distinct, Outline Attached -Granulation Amt Small (1-33%) -Granulation Quality [place] -Slough/Fibrin -Necrosis Amt Large (67-100%) -Necrotic Tissue Type Adherent Slough -Structure Exposed N/A -Texture ([place]-wound Skin Appearance) Scarring -Moisture ([place]-wound Skin Appearance) Dry/Scaly -Color ([place]-wound Skin Appearance) Hemosiderin Staining -Temperature ([place]-wound Skin No Abnormality Appearance) (Pt Warm) -Tenderness on Palpation ([place]-wound No Skin Appearance) -Ulcer Cleansing Soap and Water -Foul Odor after Cleansing No -Anesthetic Used 4% Lidocaine Solution Lower Limb Edema Present Right Calf (cm) 47.5 Right Ankle (cm) 32 Left Calf (cm) 40 Left Ankle (cm) 32 WC - Nurse 2 - General Ulcer CM Notes Start: 07/28/22 10:28 Freq: Status: Active Protocol: Activity Type Activity Date Activity User E-sign Co-sign Detail Recorded Client Recorded Date Recorded By Document 07/28/22 10:50 MW [id number] 07/28/22 11:04 MW Edit Result 07/28/22 10:50 MW (1) [id number] 07/28/22 11:08 MW Document 08/11/22 11:10 MW [id number] 08/11/22 11:21 MW Document 08/18/22 10:38 MW [id number] 08/18/22 10:58 MW Edit Result 08/18/22 10:38 MW (2) [id number] 08/19/22 09:50 PL Document 08/25/22 10:47 JF [id number] 08/25/22 10:58 JF (1) #2 R Med Ankle - Debridement, SubQ, ea addt'l 20sq cm => 6 or part thereof (2) #2 R Med Ankle - Debridement, SubQ, ea addt'l 20sq cm => 2 or part thereof 07/28/22 08/11/22 08/18/22 10:50 11:10 10:38 Wound Center Nurse 2 #5- L 3RD TOE -Time 10:50 11:11 -Correct Patient Yes Yes -Correct Side, Site, Position Yes Yes -Correct Procedure Yes Yes -Procedure Performed No No -Post Debridement (cm) - Length 0.1 0 -Post Debridement (cm) - Width 0.1 0 -Post Debridement (cm) - Depth 0.1 -Total Square (Post) (cm) 0.01 0 -Tunneling No -Undermining/Tunneling No -Circular Undermining No -Wound/Ulcer Outcome Not Healed Healed- Epithelialized -Ulcer Cleansing Rinsed/ Irrigated with Saline #4 L Med Cluster -Time 10:51 -Correct Patient Yes -Correct Side, Site, Position Yes -Correct Procedure Yes -Procedure Performed No -Post Debridement (cm) - Length 0 -Post Debridement (cm) - Width 0 -Post Debridement (cm) - Depth 0 -Total Square (Post) (cm) 0 -Wound/Ulcer Outcome Healed- Epithelialized #1 R Sinclair Cluster -Time 10:53 11:12 10:40 -Correct Patient Yes Yes Yes -Correct Side, Site, Position Yes Yes Yes -Correct Procedure Yes Yes Yes -Procedure Performed Yes Yes No -Type of Procedure Debridement Debridement -Clinical Debridement Subcutaneous Subcutaneous -Tissue Removed Subcutaneous Subcutaneous -Post Debridement (cm) - Length 11.0 11.5 -Post Debridement (cm) - Width 12.5 12.0 -Post Debridement (cm) - Depth 0.2 0.3 -Total Square (Post) (cm) 137.50 138.00 -Area of Debridement (cm) - Length 11.0 11.5 -Area of Debridement (cm) - Width 12.5 12.0 -Total Square (Area) (cm) 137.50 138.00 -Tunneling No No No -Undermining/Tunneling No No No -Circular Undermining No No No -Wound/Ulcer Outcome Not Healed Not Healed Converted -Ulcer Cleansing Rinsed/ Rinsed/ Rinsed/ Irrigated with Irrigated with Irrigated with Saline Saline Saline -Foul Odor after Cleansing No No No -Bioengineered Tissue No No No -Bleeding Controlled with Pressure Pressure -Treatment Response Procedure Procedure Tolerated Well Tolerated Well -Offloading No No -Debridement - Subq, 1st 20sq cm No No #7 right medial sinclair -Time 10:56 -Correct Patient Yes -Correct Side, Site, Position Yes -Correct Procedure Yes -Procedure Performed Yes -Type of Procedure Debridement -Clinical Debridement Subcutaneous -Tissue Removed Subcutaneous -Post Debridement (cm) - Length 2.3 -Post Debridement (cm) - Width 2.5 -Post Debridement (cm) - Depth 0.3 -Total Square (Post) (cm) 5.75 -Area of Debridement (cm) - Length 2.3 -Area of Debridement (cm) - Width 2.5 -Total Square (Area) (cm) 5.75 -Tunneling No -Undermining/Tunneling No -Circular Undermining No -Wound/Ulcer Outcome Not Healed -Ulcer Cleansing Rinsed/ Irrigated with Saline -Foul Odor after Cleansing No -Bioengineered Tissue No -Bleeding Controlled with Pressure -Treatment Response Procedure Tolerated Well -Offloading No -Debridement - Subq, 1st 20sq cm No #6 right lateral sinclair -Time 10:55 -Correct Patient Yes -Correct Side, Site, Position Yes -Correct Procedure Yes -Procedure Performed Yes -Type of Procedure Debridement -Clinical Debridement Subcutaneous -Tissue Removed Subcutaneous -Post Debridement (cm) - Length 7.2 -Post Debridement (cm) - Width 5.0 -Post Debridement (cm) - Depth 0.3 -Total Square (Post) (cm) 36.00 -Area of Debridement (cm) - Length 7.2 -Area of Debridement (cm) - Width 5.0 -Total Square (Area) (cm) 36.00 -Tunneling No -Undermining/Tunneling No -Circular Undermining No -Wound/Ulcer Outcome Not Healed -Ulcer Cleansing Rinsed/ Irrigated with Saline -Foul Odor after Cleansing No -Bioengineered Tissue No -Bleeding Controlled with Pressure -Treatment Response Procedure Tolerated Well -Offloading No -Debridement - Subq, 1st 20sq cm No #2 R Med Ankle -Time 10:52 11:11 10:39 -Correct Patient Yes Yes Yes -Correct Side, Site, Position Yes Yes Yes -Correct Procedure Yes Yes Yes -Procedure Performed Yes Yes Yes -Type of Procedure Debridement Debridement Debridement -Clinical Debridement Subcutaneous Subcutaneous Subcutaneous -Tissue Removed Subcutaneous Subcutaneous Subcutaneous -Post Debridement (cm) - Length 1.5 0.7 1.3 -Post Debridement (cm) - Width 2.0 1.8 2.0 -Post Debridement (cm) - Depth 0.1 0.1 0.1 -Total Square (Post) (cm) 3.00 1.26 2.60 -Area of Debridement (cm) - Length 1.5 0.7 1.3 -Area of Debridement (cm) - Width 2.0 1.8 2.0 -Total Square (Area) (cm) 3.00 1.26 2.60 -Tunneling No No No -Undermining/Tunneling No No No -Circular Undermining No No No -Wound/Ulcer Outcome Not Healed Not Healed Not Healed -Ulcer Cleansing Rinsed/ Rinsed/ Rinsed/ Irrigated with Irrigated with Irrigated with Saline Saline Saline -Foul Odor after Cleansing No No No -Bioengineered Tissue No No No -Bleeding Controlled with Pressure Pressure Pressure -Treatment Response Procedure Procedure Procedure Tolerated Well Tolerated Well Tolerated Well -Offloading No No No -Debridement - Subq, 1st 20sq cm Yes Yes Yes -Debridement, SubQ, ea addt'l 20sq cm 6 6 2 or part thereof Pain Scale: 0-10 Numeric Is Patient Pain Free? Yes Yes Yes 08/25/22 10:47 Wound Center Nurse 2 #5- L 3RD TOE -Time -Correct Patient -Correct Side, Site, Position -Correct Procedure -Procedure Performed -Post Debridement (cm) - Length -Post Debridement (cm) - Width -Post Debridement (cm) - Depth -Total Square (Post) (cm) -Tunneling -Undermining/Tunneling -Circular Undermining -Wound/Ulcer Outcome -Ulcer Cleansing #4 L Med Cluster -Time -Correct Patient -Correct Side, Site, Position -Correct Procedure -Procedure Performed -Post Debridement (cm) - Length -Post Debridement (cm) - Width -Post Debridement (cm) - Depth -Total Square (Post) (cm) -Wound/Ulcer Outcome #1 R Sinclair Cluster -Time -Correct Patient -Correct Side, Site, Position -Correct Procedure -Procedure Performed -Type of Procedure -Clinical Debridement -Tissue Removed -Post Debridement (cm) - Length -Post Debridement (cm) - Width -Post Debridement (cm) - Depth -Total Square (Post) (cm) -Area of Debridement (cm) - Length -Area of Debridement (cm) - Width -Total Square (Area) (cm) -Tunneling -Undermining/Tunneling -Circular Undermining -Wound/Ulcer Outcome -Ulcer Cleansing -Foul Odor after Cleansing -Bioengineered Tissue -Bleeding Controlled with -Treatment Response -Offloading -Debridement - Subq, 1st 20sq cm #7 right medial sinclair -Time 10:49 -Correct Patient Yes -Correct Side, Site, Position Yes -Correct Procedure Yes -Procedure Performed Yes -Type of Procedure Debridement -Clinical Debridement Subcutaneous -Tissue Removed Subcutaneous -Post Debridement (cm) - Length 2.8 -Post Debridement (cm) - Width 1.8 -Post Debridement (cm) - Depth 0.2 -Total Square (Post) (cm) 5.04 -Area of Debridement (cm) - Length 2.8 -Area of Debridement (cm) - Width 1.8 -Total Square (Area) (cm) 5.04 -Tunneling No -Undermining/Tunneling No -Circular Undermining No -Wound/Ulcer Outcome Not Healed -Ulcer Cleansing Rinsed/ Irrigated with Saline -Foul Odor after Cleansing No -Bioengineered Tissue No -Bleeding Controlled with Pressure -Treatment Response Procedure Tolerated Well -Offloading No -Debridement - Subq, 1st 20sq cm No #6 right lateral sinclair -Time 10:49 -Correct Patient Yes -Correct Side, Site, Position Yes -Correct Procedure Yes -Procedure Performed Yes -Type of Procedure Debridement -Clinical Debridement Subcutaneous -Tissue Removed Subcutaneous -Post Debridement (cm) - Length 8 -Post Debridement (cm) - Width 5.5 -Post Debridement (cm) - Depth 0.3 -Total Square (Post) (cm) 44.0 -Area of Debridement (cm) - Length 8 -Area of Debridement (cm) - Width 5.5 -Total Square (Area) (cm) 44.0 -Tunneling No -Undermining/Tunneling No -Circular Undermining No -Wound/Ulcer Outcome Not Healed -Ulcer Cleansing Rinsed/ Irrigated with Saline -Foul Odor after Cleansing No -Bioengineered Tissue No -Bleeding Controlled with Pressure -Treatment Response Procedure Tolerated Well -Offloading No -Debridement - Subq, 20sq cm No #2 R Med Ankle -Time 10:50 -Correct Patient Yes -Correct Side, Site, Position Yes -Correct Procedure Yes -Procedure Performed Yes -Type of Procedure Debridement -Clinical Debridement Subcutaneous -Tissue Removed Subcutaneous -Post Debridement (cm) - Length 1.3 -Post Debridement (cm) - Width 2.0 -Post Debridement (cm) - Depth 0.1 -Total Square (Post) (cm) 2.60 -Area of Debridement (cm) - Length 1.3 -Area of Debridement (cm) - Width 2.0 -Total Square (Area) (cm) 2.60 -Tunneling No -Undermining/Tunneling No -Circular Undermining No -Wound/Ulcer Outcome Not Healed -Ulcer Cleansing Rinsed/ Irrigated with Saline -Foul Odor after Cleansing No -Bioengineered Tissue No -Bleeding Controlled with Pressure -Treatment Response Procedure Tolerated Well -Offloading No -Debridement - Subq, 1st 20sq cm Yes -Debridement, SubQ, ea addt'l 20sq cm or part thereof Pain Scale: 0-10 Numeric Is Patient Pain Free? Yes WC - Nurse 3 - General Ulcer D/C NN Start: 07/28/22 10:28 Freq: Status: Active Protocol: Activity Type Activity Date Activity User E-sign Co-sign Detail Recorded Client Recorded Date Recorded By Document 07/28/22 11:35 BM [id number] 07/28/22 11:36 BM Document 08/11/22 11:31 BMF [id number] 08/11/22 11:32 BMF Document 08/25/22 11:11 ML [id number] 08/25/22 11:15 ML 07/28/22 08/11/22 08/25/22 11:35 11:31 11:11 Wound Care Nurse 3 #5- L 3RD TOE -Ulcer Cleansing Rinsed/ Irrigated with Saline -Foul Odor after Cleansing No -Primary Dressing Applied Aquacel Extra -Primary Dressing Covered/Secured with Dry Gauze & Roll Gauze, Secured with Tape -Aquacel Extra 1 #1 R Sinclair Cluster -Ulcer Cleansing Rinsed/ Rinsed/ Irrigated with Irrigated with Saline Saline -Foul Odor after Cleansing No No -Primary Dressing Applied Aquacel Extra Aquacel Extra -Other Dressing abd; drsg per dl try on baster -Primary Dressing Covered/Secured with Dry Gauze & Dry Gauze & Roll Gauze, Roll Gauze, Secured with Secured with Tape Tape -Other Covering abd -Aquacel Extra 0 0 #7 right medial sinclair -Ulcer Cleansing Rinsed/ Irrigated with Saline -Primary Dressing Applied Aquacel Extra -Other Dressing bactroban, -Primary Dressing Covered/Secured with Dry Gauze & Roll Gauze, Secured with Tape -Aquacel Extra 1 #6 right lateral sinclair -Ulcer Cleansing Rinsed/ Irrigated with Saline -Primary Dressing Applied Aquacel Extra -Other Dressing bactroban -Primary Dressing Covered/Secured with Dry Gauze & Roll Gauze, Secured with Tape -Aquacel Extra 1 #2 R Med Ankle -Ulcer Cleansing Rinsed/ Rinsed/ Rinsed/ Irrigated with Irrigated with Irrigated with Saline Saline Saline -Foul Odor after Cleansing No No -Primary Dressing Applied Aquacel Extra Aquacel Extra Aquacel Extra -Other Dressing drsg per dl try on baster bactroban -Primary Dressing Covered/Secured with Dry Gauze & Dry Gauze & Dry Gauze & Roll Gauze, Roll Gauze, Roll Gauze, Secured with Secured with Secured with Tape Tape Tape -Other Covering abd -Aquacel Extra 0 1 0 ble -Multi-Layered Wrap Application Multi-Layer Comp - Bilat ($ ) -Tubular Bandage Single Layer -Size of Tubigrip Used Size F -Size F ($) 2 -Other applied per dl try on baster Treatment Response Procedure Procedure Tolerated Well Tolerated Well Pain Scale: 0-10 Numeric Is Patient Pain Free? Yes Yes Yes WC - Visit Discharge Discharge Condition Stable Stable Ambulatory Status Wheelchair Wheelchair Transportation ecf Facility Type Long-Term Care Facility Other assisted living Additional Wound Wound debrided: Right sinclair ( Medial) Type of Debridement: Excisional debridement Anesthesia Used: 4% Lidocaine Solution Depth: Down to and including healthy tissue and in the subcutaneous layer Percentage of wound debrided: 100 Instrument Used: 7mm curette Tissue Removed: Slough and devitalized tissue Severity: Fat Layer Exposed Amount of bleeding with debridement: Mild Bleeding Controlled with: Pressure Patient tolerated procedure: Patient tolerated procedure well Additional Wound Wound debrided: Right medial ankle Type of Debridement: Excisional debridement Anesthesia Used: 4% Lidocaine Solution Depth: Down to and including healthy tissue and in the subcutaneous layer Percentage of wound debrided: 100 Instrument Used: 7mm curette Tissue Removed: Slough and devitalized tissue Severity: Fat Layer Exposed Amount of bleeding with debridement: Mild Bleeding Controlled with: Compression and gauze Patient tolerated procedure: Patient tolerated procedure well Assessment/Plan Assessment/Plan (1) Ulcer of left lower extremity with fat layer exposed: CODE(S): L97.922 - Non-pressure chronic ulcer of unspecified part of left lower leg with fat layer exposed (2) Ulcer of right lower extremity with fat layer exposed: CODE(S): L97.912 - Non-pressure chronic ulcer of unspecified part of right lower leg with fat layer exposed (3) Ulcer of right foot with fat layer exposed: CODE(S): L97.512 - Non-pressure 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 Good granulation tissue and wound/ulcer bed however significant edema persists. Recommendation is for a lymphedema pump but he is awaiting cardiology clearance and does not have an appointment till September. There was increased skin maceration with the 3M wraps. For now, continue Aquacel daily and mupirocin. Cover with ABD. Continue Tubigrip and Hiro wrap for edema management. Strongly advised that he sleep in bed and not in his recliner, he states that his bed is not very comfortable. Elevate lower extremities when seated. Protein supplements twice daily. His questions were answered and he was advised to call with any further questions or concerns. Follow-up in 1 week. This note was generated with [employer] dictation software. It may contain incorrect words, spelling, and punctuation that were not noted in checking the note before signing.
== END 2022-08-27 23:59 | disposition home or self-care (01) ==
LOC: WC 10:00
PROVIDERS: PCP Family Medicine; Visit Provider Internal Medicine
DX: L97.922 Non-pressure chronic ulcer of unspecified part of left lower leg with fat layer exposed (principal); L97.512 Non-pressure chronic ulcer of other part of right foot with fat layer exposed; L97.212 Non-pressure chronic ulcer of right calf with fat layer exposed; I87.2 Venous insufficiency (chronic) (peripheral); R60.0 Localized edema; R73.03 Prediabetes
CPT/HCPCS: 11042; 11045; 29581; 87070; 87075; 87077; 87186; 87205

== ENCOUNTER 2022-09-22 09:30 | Outpatient (RCR) | payer MEDICARE, MEDICAID, SELFPAY ==
[2022-08-28 00:11] VITALS: BP 119/62; PULSE 74; RESP 20; TEMP 36.6
[2022-09-01 10:18] VITALS: BP 123/53; PULSE 74; RESP 22; TEMP 35.7
--- NOTE | 2022-09-01 11:23 | PN.PCM_ITS ---
History of Present Illness Date of Service: 09/01/22 Chief Complaint: Bilateral lower extremity ulcers History of Wound: Mr. Boles is an 82-year-old currently residing at [facility] who presents due to nonhealing bilateral lower extremity ulceration. Has been present for some months. Has had some dressing changes done at his facility without any significant improvement. 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 Not very active. Significant bilateral lower extremity edema. He denies chills, fever or feeling of unwell. He states that his appetite is good. Progress of Wound: No new concerns at this time. No significant change in size. Dressing changes have been done as recommended. Objective Data Objective Data Vital Signs: Vital Signs Temp Pulse Resp BP 96.2 F L 74 22 H 123/53 H 09/01/22 10:18 09/01/22 10:18 09/01/22 10:18 09/01/22 10:18 Charges/Coding Procedures Integumentary 111xxx-113xx: [id number] Jaye subq tissue 20 sq cm/< Add On Codes: 56235 Jaye subq tissue add-on (x2. Additional Sq Cm debrided, please refer to clinical note.) Physical Exam Const alert, oriented x3 and no apparent distress General Appearance: cooperative, comfortable and well kempt HEENT normocephalic and head/scalp atraumatic Eyes EOMs intact bilaterally General Eye: normal appearance of both eyes Neck full ROM General: normal visual inspection Resp normal respiratory effort Effort and Inspection: able to speak in complete sentences Extremity General Extremity: edema Skin Wounds: wounds noted Neuro oriented x3, CN's II-XII intact bilaterally, moves all extremities and no focal motor deficits Psych mental status grossly normal, thought process normal, cooperative and affect normal Debridement Note Debridement Note Wound debrided: Right Sinclair Cluster ( Lateral ) Type of Debridement: Excisional debridement Anesthesia Used: 4% Lidocaine Solution Depth: Down to and including healthy tissue and in the subcutaneous layer Percentage of wound debrided: 100 Instrument Used: 5mm curette Severity: Fat Layer Exposed Amount of bleeding with debridement: Mild Bleeding Controlled with: Pressure Patient tolerated procedure: Patient tolerated procedure well Post-Debridement Measurements and Additional Note: Post-Debridement Measurements/Treatment JANAY - Nurse 1 - General Ulcer Assessment Start: 09/01/22 10:18 Freq: Status: Active Protocol: PANCHOT Activity Type Activity Date Activity User E-sign Co-sign Detail Recorded Client Recorded Date Recorded By Document 09/01/22 10:18 DL [id number] 09/01/22 10:38 DL 09/01/22 10:18 - Today's Visit Information Type of service Follow-up Visit (Physician/[facility] [employer] [facility] ) Arrival Mode Ambulatory, Wheelchair Transfer Assistance Manual,None Transfer Assist (Other) x2 Patient Identification Verified (Name & Yes ) Patient Requires Transmission-Based No Precautions Vital Signs Temperature (97.8 F-99.1 F) 96.2 F L Temperature Source Temporal Pulse Rate (60-100) 74 Pulse Location Monitor Respiratory Rate (12-18) 22 H Respiratory rate source Observation Blood Pressure (90/60-120/80) 123/53 H Blood Pressure Mean (mm Hg) 76 Source Monitor History Since Last Visit- (Skip if this is Patient's initial visit) Have you changed medications since your No last visit? Any new allergies or adverse reactions No Had a fall/change in ADL's that may No increase risk of falls Signs or symptoms of abuse and/or No neglect since last visit Have you been in the hospital since your No last visit? Has dressing in place as prescribed No Has compression in place as prescribed Yes Has offloadiing in place as prescribed N/A Experienced any changes in pain level or No management Left Footwear Regular Shoe Right Footwear Regular Shoe Pain Scale: 0-10 Numeric Is Patient Pain Free? Yes - Nurse 1 - General Ulcer Measurement Start: 09/01/22 10:18 Freq: Status: Active Protocol: Activity Type Activity Date Activity User E-sign Co-sign Detail Recorded Client Recorded Date Recorded By Document 09/01/22 10:18 DL [id number] 09/01/22 10:38 DL 09/01/22 10:18 Wound Center Nurse 1 #7 right medial sinclair -Combined with other wound No -Current Size (cm) - Length 2.6 -Current Size (cm) - Width 1.9 -Current Size (cm) - Depth 0.3 -Total Square Cm 4.94 -Photo Taken No -Epithelialization None Present -Tunneling No -Undermining/Tunneling No -Circular Undermining No -Exudate Amt Medium -Exudate Type Serosanguineous -Wound Margin Distinct, Outline Attached -Granulation Amt Large (67-100%) -Granulation Quality Red -Slough/Fibrin Yes -Necrosis Amt Small (1-33%) -Necrotic Tissue Type Adherent Slough -Texture ([place]-wound Skin Appearance) Assessed, Scarring -Moisture ([place]-wound Skin Appearance) Assessed,Dry/ Scaly -Color ([place]-wound Skin Appearance) Assessed -Temperature ([place]-wound Skin No Abnormality Appearance) (Pt Warm) -Tenderness on Palpation ([place]-wound No Skin Appearance) -Ulcer Cleansing Soap and Water -Foul Odor after Cleansing No -Anesthetic Used 4% Lidocaine Solution #6 right lateral sinclair -Combined with other wound No -Current Size (cm) - Length 8 -Current Size (cm) - Width 3 -Current Size (cm) - Depth 0.3 -Total Square Cm 24 -Photo Taken No -Epithelialization Small 1-33% -Tunneling No -Undermining/Tunneling No -Circular Undermining No -Exudate Amt Medium -Exudate Type Serosanguineous -Wound Margin Distinct, Outline Attached -Granulation Amt Medium (34-66%) -Granulation Quality Red -Slough/Fibrin Yes -Necrosis Amt Medium (34-66%) -Necrotic Tissue Type Adherent Slough -Texture ([place]-wound Skin Appearance) Assessed, Fluctuance -Moisture ([place]-wound Skin Appearance) Assessed,Dry/ Scaly -Color ([place]-wound Skin Appearance) Assessed -Temperature ([place]-wound Skin No Abnormality Appearance) (Pt Warm) -Tenderness on Palpation ([place]-wound No Skin Appearance) -Ulcer Cleansing Soap and Water -Foul Odor after Cleansing No -Anesthetic Used 4% Lidocaine Solution #2 R Med Ankle -Combined with other wound No -Current Size (cm) - Length 1.8 -Current Size (cm) - Width 3.2 -Current Size (cm) - Depth 0.1 -Total Square Cm 5.76 -Photo Taken No -Epithelialization None Present -Tunneling No -Undermining/Tunneling No -Circular Undermining No -Exudate Amt Small -Exudate Type Serous -Wound Margin Distinct, Outline Attached -Granulation Amt None Present (0 %) -Slough/Fibrin Yes -Necrosis Amt Large (67-100%) -Necrotic Tissue Type Adherent Slough -Texture ([place]-wound Skin Appearance) Assessed, Scarring -Moisture ([place]-wound Skin Appearance) Assessed -Color ([place]-wound Skin Appearance) Assessed -Temperature ([place]-wound Skin No Abnormality Appearance) (Pt Warm) -Tenderness on Palpation ([place]-wound No Skin Appearance) -Ulcer Cleansing Soap and Water -Foul Odor after Cleansing No -Anesthetic Used 4% Lidocaine Solution Lower Limb Edema Present Yes Right Calf (cm) 44.5 Right Ankle (cm) 32 Left Calf (cm) 41.5 Left Ankle (cm) 32 WC - Nurse 2 - General Ulcer CM Notes Start: 09/01/22 10:18 Freq: Status: Active Protocol: Activity Type Activity Date Activity User E-sign Co-sign Detail Recorded Client Recorded Date Recorded By Document 09/01/22 10:53 MW [id number] 09/01/22 11:04 MW 09/01/22 10:53 Wound Center Nurse 2 #7 right medial sinclair -Time 10:54 -Correct Patient Yes -Correct Side, Site, Position Yes -Correct Procedure Yes -Procedure Performed Yes -Type of Procedure Debridement -Clinical Debridement Subcutaneous -Tissue Removed Subcutaneous -Post Debridement (cm) - Length 2.8 -Post Debridement (cm) - Width 4.3 -Post Debridement (cm) - Depth 0.3 -Total Square (Post) (cm) 12.04 -Area of Debridement (cm) - Length 2.8 -Area of Debridement (cm) - Width 4.3 -Total Square (Area) (cm) 12.04 -Tunneling No -Undermining/Tunneling No -Circular Undermining No -Wound/Ulcer Outcome Not Healed -Ulcer Cleansing Rinsed/ Irrigated with Saline -Foul Odor after Cleansing No -Bioengineered Tissue No -Bleeding Controlled with Pressure -Treatment Response Procedure Tolerated Well -Offloading No -Debridement - Subq, 1st 20sq cm Yes -Debridement, SubQ, ea addt'l 20sq cm 2 or part thereof #6 right lateral sinclair -Time 10:54 -Correct Patient Yes -Correct Side, Site, Position Yes -Correct Procedure Yes -Procedure Performed Yes -Type of Procedure Debridement -Clinical Debridement Subcutaneous -Tissue Removed Subcutaneous -Post Debridement (cm) - Length 7.7 -Post Debridement (cm) - Width 5.3 -Post Debridement (cm) - Depth 0.2 -Total Square (Post) (cm) 40.81 -Area of Debridement (cm) - Length 7.7 -Area of Debridement (cm) - Width 5.3 -Total Square (Area) (cm) 40.81 -Tunneling No -Undermining/Tunneling No -Circular Undermining No -Wound/Ulcer Outcome Not Healed -Ulcer Cleansing Rinsed/ Irrigated with Saline -Foul Odor after Cleansing No -Bioengineered Tissue No -Bleeding Controlled with Pressure -Offloading No -Debridement - Subq, 1st 20sq cm No #2 R Med Ankle -Time 10:55 -Correct Patient Yes -Correct Side, Site, Position Yes -Correct Procedure Yes -Procedure Performed Yes -Type of Procedure Debridement -Clinical Debridement Subcutaneous -Tissue Removed Subcutaneous -Post Debridement (cm) - Length 1.8 -Post Debridement (cm) - Width 2.4 -Post Debridement (cm) - Depth 0.1 -Total Square (Post) (cm) 4.32 -Area of Debridement (cm) - Length 1.8 -Area of Debridement (cm) - Width 2.4 -Total Square (Area) (cm) 4.32 -Tunneling No -Undermining/Tunneling No -Circular Undermining No -Wound/Ulcer Outcome Not Healed -Ulcer Cleansing Rinsed/ Irrigated with Saline -Foul Odor after Cleansing No -Bioengineered Tissue No -Bleeding Controlled with Pressure -Treatment Response Procedure Tolerated Well -Offloading No -Debridement - Subq, 1st 20sq cm No Pain Scale: 0-10 Numeric Is Patient Pain Free? Yes Additional Wound Wound debrided: Right Lower Extremity ( Medial ) Type of Debridement: Excisional debridement Anesthesia Used: 4% Lidocaine Solution Depth: Down to and including healthy tissue and in the subcutaneous layer Percentage of wound debrided: 100 Instrument Used: 5mm curette Tissue Removed: Slough and devitalized tissue Severity: Fat Layer Exposed Amount of bleeding with debridement: Mild Bleeding Controlled with: Pressure Patient tolerated procedure: Patient tolerated procedure well Additional Wound Wound debrided: Right Medial Ankle Type of Debridement: Excisional debridement Anesthesia Used: 4% Lidocaine Solution Depth: Down to and including healthy tissue and in the subcutaneous layer Percentage of wound debrided: 100 Instrument Used: 5mm curette Tissue Removed: Slough and devitalized tissue Severity: Fat Layer Exposed Amount of bleeding with debridement: Mild Bleeding Controlled with: Pressure Patient tolerated procedure: Patient tolerated procedure well Assessment/Plan Assessment/Plan (1) Ulcer of left lower extremity with fat layer exposed: CODE(S): L97.922 - Non-pressure chronic ulcer of unspecified part of left lower leg with fat layer exposed (2) Ulcer of right lower extremity with fat layer exposed: CODE(S): L97.912 - Non-pressure chronic ulcer of unspecified part of right lower leg with fat layer exposed (3) Ulcer of right foot with fat layer exposed: CODE(S): L97.512 - Non-pressure 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 No s ignificant change in size. Still awaiting Cardiology clearance for lymphedema pump. Significant edema still present. Will order Venous and Arterial studies. For now, continue Aquacel daily and mupirocin. Cover with ABD. Continue Tubigrip and Hiro wrap for edema management. Elevate lower extremities when seated and in bed. Protein supplements twice daily. His questions were answered and he was advised to call with any further questions or concerns. Follow-up in 1 week. This note was generated with [employer] dictation software. It may contain incorrect words, spelling, and punctuation that were not noted in checking the note before signing.
[2022-09-08 09:57] VITALS: BP 116/75; PULSE 77; RESP 16
--- NOTE | 2022-09-08 12:15 | PN.PCM_ITS ---
History of Present Illness Date of Service: 09/08/22 Chief Complaint: Bilateral lower extremity ulcers History of Wound: Mr. Boles is an 82-year-old currently residing at [facility] who presents due to nonhealing bilateral lower extremity ulceration. Has been present for some months. Has had some dressing changes done at his facility without any significant improvement. 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 Not very active. Significant bilateral lower extremity edema. He denies chills, fever or feeling of unwell. He states that his appetite is good. Progress of Wound: Some improvement in the right leg ulceration however right medial ankle with increased maceration. Still significant bilateral lower extremity edema. Objective Data Objective Data Vital Signs: Vital Signs Temp Pulse Resp BP O2 Del Method 96.2 F L 77 16 116/75 Room Air 09/01/22 10:18 09/08/22 09:57 09/08/22 09:57 09/08/22 09:57 09/08/22 09:57 Oxygen Delivery Method Room Air Charges/Coding Procedures Integumentary 111xxx-113xx: [id number] Jaye subq tissue 20 sq cm/< Physical Exam Const alert, oriented x3 and no apparent distress General Appearance: cooperative, comfortable and well kempt HEENT normocephalic and head/scalp atraumatic Eyes EOMs intact bilaterally General Eye: normal appearance of both eyes Neck full ROM General: normal visual inspection Resp normal respiratory effort Effort and Inspection: able to speak in complete sentences Extremity General Extremity: edema Skin Wounds: wounds noted Neuro oriented x3, CN's II-XII intact bilaterally, moves all extremities and no focal motor deficits Psych mental status grossly normal, thought process normal, cooperative and affect normal Debridement Note Debridement Note Wound debrided: Right lower extremity (lateral cluster) Type of Debridement: Excisional debridement Anesthesia Used: 4% Lidocaine Solution Depth: Down to and including healthy tissue and in the subcutaneous layer Percentage of wound debrided: 100 Instrument Used: 5mm curette Tissue Removed: Slough and devitalized tissue Severity: Fat Layer Exposed Amount of bleeding with debridement: Mild Bleeding Controlled with: Pressure Patient tolerated procedure: Patient tolerated procedure well Post-Debridement Measurements and Additional Note: Post-Debridement Measurements/Treatment JANAY - Nurse 1 - General Ulcer Assessment Start: 09/01/22 10:18 Freq: Status: Active Protocol: LINDA Activity Type Activity Date Activity User E-sign Co-sign Detail Recorded Client Recorded Date Recorded By Document 09/01/22 10:18 DL [id number] 09/01/22 10:38 DL Document 09/08/22 09:57 [facility] Desktop 09/08/22 10:23 BMF 09/01/22 09/08/22 10:18 09:57 - Today's Visit Information Type of service Follow-up Visit Follow-up Visit (Physician/CRIMINAL INTELLIGENCE ANALYST (Physician/CRIMINAL INTELLIGENCE ANALYST ) ) Arrival Mode Ambulatory, Wheelchair Wheelchair Transfer Assistance Manual,None Other Transfer Assist (Other) x2 1 Patient Identification Verified (Name & Yes Yes ) Patient Requires Transmission-Based No No Precautions Vital Signs Temperature (97.8 F-99.1 F) 96.2 F L Temperature Source Temporal Pulse Rate (60-100) 74 77 Pulse Location Monitor Monitor Respiratory Rate (12-18) 22 H 16 Respiratory rate source Observation Observation Oxygen Delivery Method Room Air Blood Pressure (90/60-120/80) 123/53 H 116/75 Blood Pressure Mean (mm Hg) 76 88 Source Monitor Monitor Position Sitting Blood Pressure Location Left Forearm History Since Last Visit- (Skip if this is Patient's initial visit) Have you changed medications since your No No last visit? Any new allergies or adverse reactions No No Had a fall/change in ADL's that may No No increase risk of falls Signs or symptoms of abuse and/or No neglect since last visit Have you been in the hospital since your No No last visit? Has dressing in place as prescribed No Yes Has compression in place as prescribed Yes Yes Has offloadiing in place as prescribed N/A N/A Experienced any changes in pain level or No No management Left Footwear Regular Shoe Regular Shoe Right Footwear Regular Shoe Regular Shoe Pain Scale: 0-10 Numeric Is Patient Pain Free? Yes Yes - Nurse 1 - General Ulcer Measurement Start: 09/01/22 10:18 Freq: Status: Active Protocol: Activity Type Activity Date Activity User E-sign Co-sign Detail Recorded Client Recorded Date Recorded By Document 09/01/22 10:18 DL [id number] 09/01/22 10:38 DL Document 09/08/22 09:57 [facility] Desktop 09/08/22 10:23 [facility] 09/01/22 09/08/22 10:18 09:57 Wound Center Nurse 1 #7 right medial sinclair -Combined with other wound No -Current Size (cm) - Length 2.6 -Current Size (cm) - Width 1.9 -Current Size (cm) - Depth 0.3 -Total Square Cm 4.94 -Date of Last Picture (Recall this 09/08/22 field) -Photo Taken No Yes -Epithelialization None Present None Present -Tunneling No No -Undermining/Tunneling No No -Circular Undermining No No -Exudate Amt Medium Medium -Exudate Type Serosanguineous Serosanguineous -Wound Margin Distinct, Distinct, Outline Outline Attached Attached -Granulation Amt Large (67-100%) Medium (34-66%) -Granulation Quality Red Pale -Slough/Fibrin Yes Yes -Necrosis Amt Small (1-33%) Medium (34-66%) -Necrotic Tissue Type Adherent Slough Adherent Slough -Texture ([place]-wound Skin Appearance) Assessed, Assessed, Scarring Scarring -Moisture ([place]-wound Skin Appearance) Assessed,Dry/ Assessed,Dry/ Scaly Scaly -Color ([place]-wound Skin Appearance) Assessed Assessed, Hemosiderin Staining -Temperature ([place]-wound Skin No Abnormality No Abnormality Appearance) (Pt Warm) (Pt Warm) -Tenderness on Palpation ([place]-wound No No Skin Appearance) -Ulcer Cleansing Soap and Water Soap and Water -Foul Odor after Cleansing No No -Anesthetic Used 4% Lidocaine 4% Lidocaine Solution Solution #6 right lateral sinclair -Combined with other wound No No -Current Size (cm) - Length 8 7.5 -Current Size (cm) - Width 3 4 -Current Size (cm) - Depth 0.3 0.2 -Total Square Cm 24 30.0 -Date of Last Picture (Recall this 09/08/22 field) -Photo Taken No Yes -Epithelialization Small 1-33% Small 1-33% -Tunneling No No -Undermining/Tunneling No No -Circular Undermining No No -Exudate Amt Medium Medium -Exudate Type Serosanguineous Serosanguineous -Wound Margin Distinct, Distinct, Outline Outline Attached Attached -Granulation Amt Medium (34-66%) Large (67-100%) -Granulation Quality Red Red -Slough/Fibrin Yes Yes -Necrosis Amt Medium (34-66%) Small (1-33%) -Necrotic Tissue Type Adherent Slough Adherent Slough -Texture ([place]-wound Skin Appearance) Assessed, Assessed, Fluctuance Scarring -Moisture ([place]-wound Skin Appearance) Assessed,Dry/ Assessed,Dry/ Scaly Scaly -Color ([place]-wound Skin Appearance) Assessed Assessed, Hemosiderin Staining -Temperature ([place]-wound Skin No Abnormality No Abnormality Appearance) (Pt Warm) (Pt Warm) -Tenderness on Palpation ([place]-wound No No Skin Appearance) -Ulcer Cleansing Soap and Water Soap and Water -Foul Odor after Cleansing No No -Anesthetic Used 4% Lidocaine 4% Lidocaine Solution Solution #2 R Med Ankle -Combined with other wound No -Current Size (cm) - Length 1.8 1.2 -Current Size (cm) - Width 3.2 1.2 -Current Size (cm) - Depth 0.1 0.2 -Total Square Cm 5.76 1.44 -Date of Last Picture (Recall this 09/08/22 field) -Photo Taken No Yes -Epithelialization None Present None Present -Tunneling No No -Undermining/Tunneling No No -Circular Undermining No No -Exudate Amt Small Small -Exudate Type Serous Serosanguineous -Wound Margin Distinct, Distinct, Outline Outline Attached Attached -Granulation Amt None Present (0 None Present (0 %) %) -Slough/Fibrin Yes Yes -Necrosis Amt Large (67-100%) Large (67-100%) -Necrotic Tissue Type Adherent Slough Adherent Slough -Texture ([place]-wound Skin Appearance) Assessed, Assessed, Scarring Scarring -Moisture ([place]-wound Skin Appearance) Assessed Assessed,Dry/ Scaly -Color ([place]-wound Skin Appearance) Assessed Assessed, Hemosiderin Staining -Temperature ([place]-wound Skin No Abnormality No Abnormality Appearance) (Pt Warm) (Pt Warm) -Tenderness on Palpation ([place]-wound No No Skin Appearance) -Ulcer Cleansing Soap and Water Soap and Water -Foul Odor after Cleansing No No -Anesthetic Used 4% Lidocaine 4% Lidocaine Solution Solution Lower Limb Edema Present Yes Yes Right Calf (cm) 44.5 47 Right Ankle (cm) 32 33.8 Left Calf (cm) 41.5 38.5 Left Ankle (cm) 32 33.5 WC - Nurse 2 - General Ulcer CM Notes Start: 09/01/22 10:18 Freq: Status: Active Protocol: Activity Type Activity Date Activity User E-sign Co-sign Detail Recorded Client Recorded Date Recorded By Document 09/01/22 10:53 MW [id number] 09/01/22 11:04 MW Document 09/08/22 10:36 MW [id number] 09/08/22 10:45 MW 09/01/22 09/08/22 10:53 10:36 Wound Center Nurse 2 #7 right medial sinclair -Time 10:54 10:37 -Correct Patient Yes Yes -Correct Side, Site, Position Yes Yes -Correct Procedure Yes Yes -Procedure Performed Yes Yes -Type of Procedure Debridement Debridement -Clinical Debridement Subcutaneous Subcutaneous -Tissue Removed Subcutaneous Subcutaneous -Post Debridement (cm) - Length 2.8 2.7 -Post Debridement (cm) - Width 4.3 1.1 -Post Debridement (cm) - Depth 0.3 0.2 -Total Square (Post) (cm) 12.04 2.97 -Area of Debridement (cm) - Length 2.8 2.7 -Area of Debridement (cm) - Width 4.3 1.1 -Total Square (Area) (cm) 12.04 2.97 -Tunneling No No -Undermining/Tunneling No No -Circular Undermining No No -Wound/Ulcer Outcome Not Healed Not Healed -Ulcer Cleansing Rinsed/ Rinsed/ Irrigated with Irrigated with Saline Saline -Foul Odor after Cleansing No No -Bioengineered Tissue No No -Bleeding Controlled with Pressure Pressure -Treatment Response Procedure Procedure Tolerated Well Tolerated Well -Offloading No No -Debridement - Subq, 1st 20sq cm Yes Yes -Debridement, SubQ, ea addt'l 20sq cm 2 1 or part thereof #6 right lateral sinclair -Time 10:54 10:37 -Correct Patient Yes Yes -Correct Side, Site, Position Yes Yes -Correct Procedure Yes Yes -Procedure Performed Yes Yes -Type of Procedure Debridement Debridement -Clinical Debridement Subcutaneous Subcutaneous -Tissue Removed Subcutaneous Subcutaneous -Post Debridement (cm) - Length 7.7 7.5 -Post Debridement (cm) - Width 5.3 2.7 -Post Debridement (cm) - Depth 0.2 0.1 -Total Square (Post) (cm) 40.81 20.25 -Area of Debridement (cm) - Length 7.7 7.5 -Area of Debridement (cm) - Width 5.3 2.7 -Total Square (Area) (cm) 40.81 20.25 -Tunneling No No -Undermining/Tunneling No No -Circular Undermining No No -Wound/Ulcer Outcome Not Healed Not Healed -Ulcer Cleansing Rinsed/ Rinsed/ Irrigated with Irrigated with Saline Saline -Foul Odor after Cleansing No No -Bioengineered Tissue No No -Bleeding Controlled with Pressure Pressure -Treatment Response Procedure Tolerated Well -Offloading No No -Debridement - Subq, 1st 20sq cm No No #2 R Med Ankle -Time 10:55 10:37 -Correct Patient Yes Yes -Correct Side, Site, Position Yes Yes -Correct Procedure Yes -Procedure Performed Yes Yes -Type of Procedure Debridement Debridement -Clinical Debridement Subcutaneous Subcutaneous -Tissue Removed Subcutaneous Subcutaneous -Post Debridement (cm) - Length 1.8 2.0 -Post Debridement (cm) - Width 2.4 3.0 -Post Debridement (cm) - Depth 0.1 0.1 -Total Square (Post) (cm) 4.32 6.00 -Area of Debridement (cm) - Length 1.8 2.0 -Area of Debridement (cm) - Width 2.4 3.0 -Total Square (Area) (cm) 4.32 6.00 -Tunneling No No -Undermining/Tunneling No No -Circular Undermining No No -Wound/Ulcer Outcome Not Healed Not Healed -Ulcer Cleansing Rinsed/ Rinsed/ Irrigated with Irrigated with Saline Saline -Foul Odor after Cleansing No No -Bioengineered Tissue No No -Bleeding Controlled with Pressure Pressure -Treatment Response Procedure Procedure Tolerated Well Tolerated Well -Offloading No No -Debridement - Subq, 1st 20sq cm No No Pain Scale: 0-10 Numeric Is Patient Pain Free? Yes Yes - Nurse 3 - General Ulcer D/C NN Start: 09/01/22 10:18 Freq: Status: Active Protocol: Activity Type Activity Date Activity User E-sign Co-sign Detail Recorded Client Recorded Date Recorded By Document 09/08/22 12:06 AK [id number] 09/08/22 12:08 AK 09/08/22 12:06 Wound Care Nurse 3 #7 right medial sinclair -Primary Dressing Applied Aquacel AG 4x4, Optilok 6.5x10, Optilok 8x12 -Primary Dressing Covered/Secured with Dry Gauze & Roll Gauze, Secured with Tape -Aquacel AG 4x4 1 -Optilok 6.5x10 1 -Optilok 8x12 1 Right -Compression Wrap Hiro Wrap -Tubular Bandage Single Layer -Size of Tubigrip Used Size E -Size E ($) 1 Left -Compression Wrap Hiro Wrap -Tubular Bandage Single Layer -Size of Tubigrip Used Size E -Size E ($) 1 Pain Scale: 0-10 Numeric Is Patient Pain Free? Yes WC - Visit Discharge Discharge Condition Stable Ambulatory Status Ambulatory Transportation Private Auto Medication Reconcilliation completed & No provided to patient/care provider Clinical Summary of Care Provided Yes Additional Wound Wound debrided: Right lower extremity (medial sinclair) Type of Debridement: Excisional debridement Anesthesia Used: 4% Lidocaine Solution Depth: Down to and including healthy tissue and in the subcutaneous layer Percentage of wound debrided: 100 Instrument Used: 5mm curette Tissue Removed: Slough and devitalized tissue Severity: Fat Layer Exposed Amount of bleeding with debridement: Mild Bleeding Controlled with: Pressure Patient tolerated procedure: Patient tolerated procedure well Additional Wound Wound debrided: Right medial ankle Type of Debridement: Excisional debridement Anesthesia Used: 4% Lidocaine Solution Depth: Down to and including healthy tissue and in the subcutaneous layer Percentage of wound debrided: 100 Instrument Used: 5mm curette Tissue Removed: Slough and devitalized tissue Severity: Fat Layer Exposed Amount of bleeding with debridement: Mild Bleeding Controlled with: Pressure Patient tolerated procedure: Patient tolerated procedure well Assessment/Plan Assessment/Plan (1) Ulcer of left lower extremity with fat layer exposed: CODE(S): L97.922 - Non-pressure chronic ulcer of unspecified part of left lower leg with fat layer exposed (2) Ulcer of right lower extremity with fat layer exposed: CODE(S): L97.912 - Non-pressure chronic ulcer of unspecified part of right lower leg with fat layer exposed (3) Ulcer of right foot with fat layer exposed: CODE(S): L97.512 - Non-pressure 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 Some improvement noted to the right lower extremity/sinclair but increased maceration to right medial ankle/foot. Promogran to the right medial ankle was started last week, switch to Aquacel daily and mupirocin to all ulcerations. Cover with ABD. Continue Tubigrip and Hiro wrap for edema management. Elevate lower extremities when seated and in bed. Protein supplements twice daily. His questions were answered and he was advised to call with any further questions or concerns. Follow-up in 1 week. This note was generated with [employer] dictation software. It may contain incorrect words, spelling, and punctuation that were not noted in checking the note before signing.
--- NOTE | 2022-09-12 08:55 | VDLE_ITS ---
Reason For Study: RLE Ulcers RIGHT LEFT GSV is normal. CFV is compressible, spontaneous, phasic, CFV is compressible, spontaneous, phasic, competent, and demonstrates normal competent and demonstrates normal augmentation. augmentation. FV is compressible, spontaneous, phasic, competent and demonstrates normal augmentation. POP V is compressible, spontaneous, phasic, competent and demonstrates normal augmentation. T/P Trunk is compressible. PTV is compressible. RT PerV is compressible. Enlarged lymph nodes noted in Rt Groin measuring approximately 1.44cm x 0.71cm and 1.55cm x 0.83cm. Procedure This is a venous duplex using B-mode, color flow and spectral Doppler. Exam performed in department. The exam was diagnostic. Technically difficult exam due to edema and wounds. VL/Venous Duplex US, Unilateral Interpretation Summary Deep veins of the right lower extremity are patent and compressible segmentally . There is no evidence of right lower extremity deep vein thrombosis. Valvular competence frantz ears intact within the proximal deep venous system on the right . The right great saphenous vein a ppears patent and compressible segmentally. Enlarged lymph nodes are noted in the right groin, wi th dimensions as documented above. Ordering Physician: Mariajose Rashid Referring Physician: Pablito Brower Performed By: Gualberto Mcduffie RVT
--- NOTE | 2022-09-12 08:56 | ART_ITS ---
Reason For Study: RLE Ulcer Procedure A bilateral lower extremity continuous wave Doppler with analog waveform analysis,segmental pressures,and ankle brachial indexes without exercise. Technically difficult study due to wounds and edema. Left Segmental Pressures Left brachial= 113mmHg. Left posterior tibial artery = 171mmHg. Left dorsalis pedis artery = 187mmHg. The left posterior tibial artery waveforms are triphasic. The left dorsalis pedis waveforms are triphasic. Right Segmental Pressures Right brachial= 111mmHg. Right posterior tibial artery = 129mmHg. Right dorsalis pedis artery = 133mmHg. The right posterior tibial artery waveforms are monophasic. The right dorsalis pedis waveforms are monophasic. Indices The right ankle brachial index by the posterior tibial artery is 1.14. The right ankle brachial index by the dorsalis pedis is 1.18. The left ankle brachial index by the posterior tibial artery is 1.51. The left ankle brachial index by the dorsalis pedis is 1.65. VL/Lower Ext Art Exam w/o Exercis Interpretation Summary Monophasic Doppler waveforms are noted at ankle level on the right. Triphasic D oppler waveforms are noted at ankle level on the left. Pulse-volume recordings appear satisfactory a t all levels bilaterally. The resting right ankle-brachial index is normal. The resting left ankle-brachial index is supra-normal. Although the resting right ankle-brachial index is normal, monophasic Doppler w aveforms at ankle level on the right suggest the presence of arterial occlusive disease, which is difficult to quantify. There is evidence of arterial calcification at ankle level on the lef t. There is no evidence of arterial occlusive disease in the left lower extremity. Ordering Physician: Mariajose Rashid Referring Physician: Pablito Brower Performed By: Gualberto Mcduffie RVT
[2022-09-15 09:43] VITALS: BP 125/55; PULSE 82; RESP 20; TEMP 36.4
--- NOTE | 2022-09-15 12:33 | PCM.WC.PN ---
History of Present Illness Date of Service: 09/15/22 Chief Complaint: Bilateral lower extremity ulcers History of Wound: Mr. Boles is an 82-year-old currently residing at [facility] who presents due to nonhealing bilateral lower extremity ulceration. Has been present for some months. Has had some dressing changes done at his facility without any significant improvement. 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 Not very active. Significant bilateral lower extremity edema. He denies chills, fever or feeling of unwell. He states that his appetite is good. Progress of Wound: Some improvement in the right leg ulceration however right medial ankle still with some worsening. Recently had his Venous and Vascular studies done. Objective Data Objective Data Vital Signs: Vital Signs Temp Pulse Resp BP O2 Del Method 97.5 F L 82 20 H 125/55 H Room Air 09/15/22 09:43 09/15/22 09:43 09/15/22 09:43 09/15/22 09:43 09/08/22 09:57 Oxygen Delivery Method Room Air Charges/Coding Procedures Integumentary 111xxx-113xx: 22190 Jaye subq tissue 20 sq cm/< Add On Codes: 39518 Jaye subq tissue add-on (x1 additional square centimeter debrided, please refer to clinical note.) Physical Exam Const alert, oriented x3 and no apparent distress General Appearance: cooperative, comfortable and well kempt HEENT normocephalic and head/scalp atraumatic Eyes EOMs intact bilaterally General Eye: normal appearance of both eyes Neck full ROM General: normal visual inspection Resp normal respiratory effort Effort and Inspection: able to speak in complete sentences Extremity General Extremity: edema Skin Wounds: wounds noted Neuro oriented x3, CN's II-XII intact bilaterally, moves all extremities and no focal motor deficits Psych mental status grossly normal, thought process normal, cooperative and affect normal Debridement Note Debridement Note Wound debrided: Right lateral sinclair cluster Type of Debridement: Excisional debridement Anesthesia Used: 4% Lidocaine Solution Depth: Down to and including healthy tissue and in the subcutaneous layer Percentage of wound debrided: 100 Instrument Used: 5mm curette Tissue Removed: Slough and devitalized tissue Severity: Fat Layer Exposed Amount of bleeding with debridement: Mild Bleeding Controlled with: Pressure Patient tolerated procedure: Patient tolerated procedure well Post-Debridement Measurements and Additional Note: Post-Debridement Measurements/Treatment - Nurse 1 - General Ulcer Assessment Start: 09/01/22 10:18 Freq: Status: Active Protocol: LINDA Activity Type Activity Date Activity User E-sign Co-sign Detail Recorded Client Recorded Date Recorded By Document 09/01/22 10:18 DL [id number] 09/01/22 10:38 DL Document 09/08/22 09:57 BMF Desktop 09/08/22 10:23 BMF Document 09/15/22 09:43 DL [id number] 09/15/22 10:06 DL 09/01/22 09/08/22 09/15/22 10:18 09:57 09:43 - Today's Visit Information Type of service Follow-up Visit Follow-up Visit Follow-up Visit (Physician/STEREO MAP PLOTTER OPERATOR (Physician/STEREO MAP PLOTTER OPERATOR (Physician/STEREO MAP PLOTTER OPERATOR ) ) ) Arrival Mode Ambulatory, Wheelchair Wheelchair Wheelchair Transfer Assistance Manual,None Other Manual Transfer Assist (Other) x2 1 x1 Patient Identification Verified (Name & Yes Yes Yes ) Patient Requires Transmission-Based No No No Precautions Safety Precautions Fall Prevention Vital Signs Temperature (97.8 F-99.1 F) 96.2 F L 97.5 F L Temperature Source Temporal Temporal Pulse Rate (60-100) 74 77 82 Pulse Location Monitor Monitor Monitor Respiratory Rate (12-18) 22 H 16 20 H Respiratory rate source Observation Observation Observation Oxygen Delivery Method Room Air Blood Pressure (90/60-120/80) 123/53 H 116/75 125/55 H Blood Pressure Mean (mm Hg) 76 88 78 Source Monitor Monitor Monitor Position Sitting Blood Pressure Location Left Forearm History Since Last Visit- (Skip if this is Patient's initial visit) Have you changed medications since your No No No last visit? Any new allergies or adverse reactions No No No Had a fall/change in ADL's that may No No No increase risk of falls Signs or symptoms of abuse and/or No No neglect since last visit Have you been in the hospital since your No No No last visit? Has dressing in place as prescribed No Yes Yes Has compression in place as prescribed Yes Yes Yes Has offloadiing in place as prescribed N/A N/A N/A Experienced any changes in pain level or No No No management Left Footwear Regular Shoe Regular Shoe Other Footwear (Comment) Right Footwear Regular Shoe Regular Shoe Other Footwear (Comment) Other Footwear Boots Pain Scale: 0-10 Numeric Is Patient Pain Free? Yes Yes Yes WC - Nurse 1 - General Ulcer Measurement Start: 09/01/22 10:18 Freq: Status: Active Protocol: Activity Type Activity Date Activity User E-sign Co-sign Detail Recorded Client Recorded Date Recorded By Document 09/01/22 10:18 DL [id number] 09/01/22 10:38 DL Document 09/08/22 09:57 BMF Desktop 09/08/22 10:23 BMF Document 09/15/22 09:43 DL [id number] 09/15/22 10:06 DL 09/01/22 09/08/22 09/15/22 10:18 09:57 09:43 Wound Center Nurse 1 #7 right medial sinclair -Combined with other wound No -Current Size (cm) - Length 2.6 2.3 -Current Size (cm) - Width 1.9 1.5 -Current Size (cm) - Depth 0.3 0.2 -Total Square Cm 4.94 3.45 -Date of Last Picture (Recall this 09/08/22 field) -Photo Taken No Yes Yes -Epithelialization None Present None Present -Tunneling No No -Undermining/Tunneling No No -Circular Undermining No No -Exudate Amt Medium Medium Medium -Exudate Type Serosanguineous Serosanguineous Serosanguineous -Wound Margin Distinct, Distinct, Distinct, Outline Outline Outline Attached Attached Attached -Granulation Amt Large (67-100%) Medium (34-66%) Medium (34-66%) -Granulation Quality Red Pale Red -Slough/Fibrin Yes Yes -Necrosis Amt Small (1-33%) Medium (34-66%) Medium (34-66%) -Necrotic Tissue Type Adherent Slough Adherent Slough Adherent Slough -Structure Exposed N/A -Texture ([place]-wound Skin Appearance) Assessed, Assessed, Scarring Scarring Scarring -Moisture ([place]-wound Skin Appearance) Assessed,Dry/ Assessed,Dry/ Dry/Scaly Scaly Scaly -Color ([place]-wound Skin Appearance) Assessed Assessed, Hemosiderin Hemosiderin Staining Staining -Temperature ([place]-wound Skin No Abnormality No Abnormality No Abnormality Appearance) (Pt Warm) (Pt Warm) (Pt Warm) -Tenderness on Palpation ([place]-wound No No Skin Appearance) -Ulcer Cleansing Soap and Water Soap and Water -Foul Odor after Cleansing No No -Anesthetic Used 4% Lidocaine 4% Lidocaine 5% Lidocaine Solution Solution Gel #6 right lateral sinclair -Combined with other wound No No -Current Size (cm) - Length 8 7.5 6.9 -Current Size (cm) - Width 3 4 3.6 -Current Size (cm) - Depth 0.3 0.2 0.2 -Total Square Cm 24 30.0 24.84 -Date of Last Picture (Recall this 09/08/22 field) -Photo Taken No Yes Yes -Epithelialization Small 1-33% Small 1-33% -Tunneling No No -Undermining/Tunneling No No -Circular Undermining No No -Exudate Amt Medium Medium Medium -Exudate Type Serosanguineous Serosanguineous Serosanguineous -Wound Margin Distinct, Distinct, Distinct, Outline Outline Outline Attached Attached Attached -Granulation Amt Medium (34-66%) Large (67-100%) Medium (34-66%) -Granulation Quality Red Red Red -Slough/Fibrin Yes Yes -Necrosis Amt Medium (34-66%) Small (1-33%) Medium (34-66%) -Necrotic Tissue Type Adherent Slough Adherent Slough Adherent Slough -Structure Exposed N/A -Texture ([place]-wound Skin Appearance) Assessed, Assessed, Scarring Fluctuance Scarring -Moisture ([place]-wound Skin Appearance) Assessed,Dry/ Assessed,Dry/ Dry/Scaly Scaly Scaly -Color ([place]-wound Skin Appearance) Assessed Assessed, Hemosiderin Hemosiderin Staining Staining -Temperature ([place]-wound Skin No Abnormality No Abnormality No Abnormality Appearance) (Pt Warm) (Pt Warm) (Pt Warm) -Tenderness on Palpation ([place]-wound No No No Skin Appearance) -Ulcer Cleansing Soap and Water Soap and Water Soap and Water -Foul Odor after Cleansing No No No -Anesthetic Used 4% Lidocaine 4% Lidocaine 5% Lidocaine Solution Solution Gel #2 R Med Ankle -Combined with other wound No -Current Size (cm) - Length 1.8 1.2 2.9 -Current Size (cm) - Width 3.2 1.2 3.5 -Current Size (cm) - Depth 0.1 0.2 0.1 -Total Square Cm 5.76 1.44 10.15 -Date of Last Picture (Recall this 09/08/22 field) -Photo Taken No Yes Yes -Epithelialization None Present None Present -Tunneling No No -Undermining/Tunneling No No -Circular Undermining No No -Exudate Amt Small Small Medium -Exudate Type Serous Serosanguineous Serosanguineous -Wound Margin Distinct, Distinct, Distinct, Outline Outline Outline Attached Attached Attached -Granulation Amt None Present (0 None Present (0 None Present (0 %) %) %) -Slough/Fibrin Yes Yes -Necrosis Amt Large (67-100%) Large (67-100%) Large (67-100%) -Necrotic Tissue Type Adherent Slough Adherent Slough Adherent Slough -Structure Exposed N/A -Texture ([place]-wound Skin Appearance) Assessed, Assessed, Scarring Scarring Scarring -Moisture ([place]-wound Skin Appearance) Assessed Assessed,Dry/ Dry/Scaly Scaly -Color ([place]-wound Skin Appearance) Assessed Assessed, Hemosiderin Hemosiderin Staining Staining -Temperature ([place]-wound Skin No Abnormality No Abnormality No Abnormality Appearance) (Pt Warm) (Pt Warm) (Pt Warm) -Tenderness on Palpation ([place]-wound No No No Skin Appearance) -Ulcer Cleansing Soap and Water Soap and Water Soap and Water -Foul Odor after Cleansing No No No -Anesthetic Used 4% Lidocaine 4% Lidocaine 5% Lidocaine Solution Solution Gel Lower Limb Edema Present Yes Yes Right Calf (cm) 44.5 47 53.5 Right Ankle (cm) 32 33.8 32.7 Left Calf (cm) 41.5 38.5 47.5 Left Ankle (cm) 32 33.5 31.7 WC - Nurse 2 - General Ulcer CM Notes Start: 09/01/22 10:18 Freq: Status: Active Protocol: Activity Type Activity Date Activity User E-sign Co-sign Detail Recorded Client Recorded Date Recorded By Document 09/01/22 10:53 MW [id number] 09/01/22 11:04 MW Document 09/08/22 10:36 MW [id number] 09/08/22 10:45 MW Document 09/15/22 10:16 MW [id number] 09/15/22 10:27 MW 09/01/22 09/08/22 09/15/22 10:53 10:36 10:16 Wound Center Nurse 2 #7 right medial sinclair -Time 10:54 10:37 10:16 -Correct Patient Yes Yes Yes -Correct Side, Site, Position Yes Yes Yes -Correct Procedure Yes Yes Yes -Procedure Performed Yes Yes Yes -Type of Procedure Debridement Debridement Debridement -Clinical Debridement Subcutaneous Subcutaneous Subcutaneous -Tissue Removed Subcutaneous Subcutaneous Subcutaneous -Post Debridement (cm) - Length 2.8 2.7 2.5 -Post Debridement (cm) - Width 4.3 1.1 1.0 -Post Debridement (cm) - Depth 0.3 0.2 0.2 -Total Square (Post) (cm) 12.04 2.97 2.50 -Area of Debridement (cm) - Length 2.8 2.7 2.5 -Area of Debridement (cm) - Width 4.3 1.1 1.0 -Total Square (Area) (cm) 12.04 2.97 2.50 -Tunneling No No No -Undermining/Tunneling No No No -Circular Undermining No No No -Wound/Ulcer Outcome Not Healed Not Healed Not Healed -Ulcer Cleansing Rinsed/ Rinsed/ Rinsed/ Irrigated with Irrigated with Irrigated with Saline Saline Saline -Foul Odor after Cleansing No No No -Bioengineered Tissue No No No -Bleeding Controlled with Pressure Pressure Pressure -Treatment Response Procedure Procedure Procedure Tolerated Well Tolerated Well Tolerated Well -Offloading No No No -Debridement - Subq, 1st 20sq cm Yes Yes Yes -Debridement, SubQ, ea addt'l 20sq cm 2 1 1 or part thereof #6 right lateral sinclair -Time 10:54 10:37 10:17 -Correct Patient Yes Yes Yes -Correct Side, Site, Position Yes Yes Yes -Correct Procedure Yes Yes Yes -Procedure Performed Yes Yes Yes -Type of Procedure Debridement Debridement Debridement -Clinical Debridement Subcutaneous Subcutaneous Subcutaneous -Tissue Removed Subcutaneous Subcutaneous Subcutaneous -Post Debridement (cm) - Length 7.7 7.5 7.5 -Post Debridement (cm) - Width 5.3 2.7 2.1 -Post Debridement (cm) - Depth 0.2 0.1 0.2 -Total Square (Post) (cm) 40.81 20.25 15.75 -Area of Debridement (cm) - Length 7.7 7.5 7.5 -Area of Debridement (cm) - Width 5.3 2.7 2.1 -Total Square (Area) (cm) 40.81 20.25 15.75 -Tunneling No No No -Undermining/Tunneling No No No -Circular Undermining No No No -Wound/Ulcer Outcome Not Healed Not Healed Not Healed -Ulcer Cleansing Rinsed/ Rinsed/ Rinsed/ Irrigated with Irrigated with Irrigated with Saline Saline Saline -Foul Odor after Cleansing No No No -Bioengineered Tissue No No No -Bleeding Controlled with Pressure Pressure Pressure -Treatment Response Procedure Procedure Tolerated Well Tolerated Well -Offloading No No No -Debridement - Subq, 1st 20sq cm No No Yes #2 R Med Ankle -Time 10:55 10:37 10:17 -Correct Patient Yes Yes Yes -Correct Side, Site, Position Yes Yes Yes -Correct Procedure Yes Yes -Procedure Performed Yes Yes Yes -Type of Procedure Debridement Debridement Debridement -Clinical Debridement Subcutaneous Subcutaneous Subcutaneous -Tissue Removed Subcutaneous Subcutaneous Subcutaneous -Post Debridement (cm) - Length 1.8 2.0 3.1 -Post Debridement (cm) - Width 2.4 3.0 3.3 -Post Debridement (cm) - Depth 0.1 0.1 0.1 -Total Square (Post) (cm) 4.32 6.00 10.23 -Area of Debridement (cm) - Length 1.8 2.0 3.1 -Area of Debridement (cm) - Width 2.4 3.0 3.3 -Total Square (Area) (cm) 4.32 6.00 10.23 -Tunneling No No No -Undermining/Tunneling No No No -Circular Undermining No No No -Wound/Ulcer Outcome Not Healed Not Healed Not Healed -Ulcer Cleansing Rinsed/ Rinsed/ Rinsed/ Irrigated with Irrigated with Irrigated with Saline Saline Saline -Foul Odor after Cleansing No No No -Bioengineered Tissue No No No -Bleeding Controlled with Pressure Pressure Pressure -Treatment Response Procedure Procedure Procedure Tolerated Well Tolerated Well Tolerated Well -Offloading No No No -Debridement - Subq, 1st 20sq cm No No Yes Pain Scale: 0-10 Numeric Is Patient Pain Free? Yes Yes Yes WC - Nurse 3 - General Ulcer D/C NN Start: 09/01/22 10:18 Freq: Status: Active Protocol: Activity Type Activity Date Activity User E-sign Co-sign Detail Recorded Client Recorded Date Recorded By Document 09/08/22 12:06 [place] [id number] 09/08/22 12:08 [place] 09/08/22 12:06 Wound Care Nurse 3 #7 right medial sinclair -Primary Dressing Applied Aquacel AG 4x4, Optilok 6.5x10, Optilok 8x12 -Primary Dressing Covered/Secured with Dry Gauze & Roll Gauze, Secured with Tape -Aquacel AG 4x4 1 -Optilok 6.5x10 1 -Optilok 8x12 1 Right -Compression Wrap Hiro Wrap -Tubular Bandage Single Layer -Size of Tubigrip Used Size E -Size E ($) 1 Left -Compression Wrap Hiro Wrap -Tubular Bandage Single Layer -Size of Tubigrip Used Size E -Size E ($) 1 Pain Scale: 0-10 Numeric Is Patient Pain Free? Yes WC - Visit Discharge Discharge Condition Stable Ambulatory Status Ambulatory Transportation Private Auto Medication Reconcilliation completed & No provided to patient/care provider Clinical Summary of Care Provided Yes Additional Wound Wound debrided: Right medial sinclair Type of Debridement: Excisional debridement Anesthesia Used: 4% Lidocaine Solution Depth: Down to and including healthy tissue and in the subcutaneous layer Percentage of wound debrided: 100 Instrument Used: 5mm curette Tissue Removed: Slough and devitalized tissue Severity: Fat Layer Exposed Amount of bleeding with debridement: Mild Bleeding Controlled with: Pressure Patient tolerated procedure: Patient tolerated procedure well Additional Wound Wound debrided: Right medial foot/Ankle Type of Debridement: Excisional debridement Anesthesia Used: 4% Lidocaine Solution Depth: Down to and including healthy tissue Percentage of wound debrided: 100 Instrument Used: 5mm curette Tissue Removed: Slough and devitalized tissue Severity: Fat Layer Exposed Amount of bleeding with debridement: Mild Bleeding Controlled with: Pressure Patient tolerated procedure: Patient tolerated procedure well Assessment/Plan Assessment/Plan (1) Ulcer of left lower extremity with fat layer exposed: CODE(S): L97.922 - Non-pressure chronic ulcer of unspecified part of left lower leg with fat layer exposed (2) Ulcer of right lower extremity with fat layer exposed: CODE(S): L97.912 - Non-pressure chronic ulcer of unspecified part of right lower leg with fat layer exposed (3) Ulcer of right foot with fat layer exposed: CODE(S): L97.512 - Non-pressure 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 Some improvement noted to the right lower extremity/sinclair but medial foot with worsening. Vascular studies reviewed and concern with arterial flow to the ankle/foot. Referred to vascular surgery. Continue Aquacel daily and mupirocin to all ulcerations. Cover with ABD. Continue Tubigrip and Hiro wrap for edema management. Elevate lower extremities when seated and in bed. Protein supplements twice daily. His questions were answered and he was advised to call with any further questions or concerns. Follow-up in 1 week. This note was generated with [employer] dictation software. It may contain incorrect words, spelling, and punctuation that were not noted in checking the note before signing.
[2022-09-22 09:41] VITALS: BP 122/63; PULSE 73; RESP 22; TEMP 36.2
--- NOTE | 2022-09-22 10:53 | PCM.WC.PN ---
History of Present Illness Date of Service: 09/22/22 Chief Complaint: Bilateral lower extremity ulcers History of Wound: Mr. Boles is an 82-year-old currently residing at [facility] who presents due to nonhealing bilateral lower extremity ulceration. Has been present for some months. Has had some dressing changes done at his facility without any significant improvement. 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 Not very active. Significant bilateral lower extremity edema. He denies chills, fever or feeling of unwell. He states that his appetite is good. Progress of Wound: Stable ulcers. No new concerns at this time. Has an appointment scheduled with vascular surgery. Objective Data Objective Data Vital Signs: Vital Signs Temp Pulse Resp BP O2 Del Method 97.1 F L 73 22 H 122/63 H Room Air 09/22/22 09:41 09/22/22 09:41 09/22/22 09:41 09/22/22 09:41 09/08/22 09:57 Oxygen Delivery Method Room Air Charges/Coding Procedures Integumentary 111xxx-113xx: 42069 Jaye subq tissue 20 sq cm/< Add On Codes: 84113 Jaye subq tissue add-on (x1 additional square centimeter debrided, please refer to clinical note.) Physical Exam Const alert, oriented x3 and no apparent distress General Appearance: cooperative, comfortable and well kempt HEENT normocephalic and head/scalp atraumatic Eyes EOMs intact bilaterally General Eye: normal appearance of both eyes Neck full ROM General: normal visual inspection Resp normal respiratory effort Effort and Inspection: able to speak in complete sentences Extremity General Extremity: edema Skin Wounds: wounds noted Neuro oriented x3, CN's II-XII intact bilaterally, moves all extremities and no focal motor deficits Psych mental status grossly normal, thought process normal, cooperative and affect normal Debridement Note Debridement Note Wound debrided: Right lower extremity lateral cluster Type of Debridement: Excisional debridement Anesthesia Used: 4% Lidocaine Solution Depth: Down to and including healthy tissue and in the subcutaneous layer Percentage of wound debrided: 100 Severity: Fat Layer Exposed Amount of bleeding with debridement: Mild Bleeding Controlled with: Pressure Patient tolerated procedure: Patient tolerated procedure well Post-Debridement Measurements and Additional Note: Post-Debridement Measurements/Treatment WC - Nurse 1 - General Ulcer Assessment Start: 09/01/22 10:18 Freq: Status: Active Protocol: WC.LOWEXT Activity Type Activity Date Activity User E-sign Co-sign Detail Recorded Client Recorded Date Recorded By Document 09/01/22 10:18 DL [id number] 09/01/22 10:38 DL Document 09/08/22 09:57 BM Desktop 09/08/22 10:23 BMF Document 09/15/22 09:43 DL [id number] 09/15/22 10:06 DL Document 09/22/22 09:41 DL [id number] 09/22/22 09:51 DL 09/01/22 09/08/22 09/15/22 10:18 09:57 09:43 - Today's Visit Information Type of service Follow-up Visit Follow-up Visit Follow-up Visit (Physician/SUEDING MACHINE OPERATOR (Physician/SUEDING MACHINE OPERATOR (Physician/SUEDING MACHINE OPERATOR ) ) ) Arrival Mode Ambulatory, Wheelchair Wheelchair Wheelchair Transfer Assistance Manual,None Other Manual Transfer Assist (Other) x2 1 x1 Patient Identification Verified (Name & Yes Yes Yes ) Patient Requires Transmission-Based No No No Precautions Safety Precautions Fall Prevention Vital Signs Temperature (97.8 F-99.1 F) 96.2 F L 97.5 F L Temperature Source Temporal Temporal Pulse Rate (60-100) 74 77 82 Pulse Location Monitor Monitor Monitor Respiratory Rate (12-18) 22 H 16 20 H Respiratory rate source Observation Observation Observation Oxygen Delivery Method Room Air Blood Pressure (90/60-120/80) 123/53 H 116/75 125/55 H Blood Pressure Mean (mm Hg) 76 88 78 Source Monitor Monitor Monitor Position Sitting Blood Pressure Location Left Forearm History Since Last Visit- (Skip if this is Patient's initial visit) Have you changed medications since your No No No last visit? Any new allergies or adverse reactions No No No Had a fall/change in ADL's that may No No No increase risk of falls Signs or symptoms of abuse and/or No No neglect since last visit Have you been in the hospital since your No No No last visit? Has dressing in place as prescribed No Yes Yes Has compression in place as prescribed Yes Yes Yes Has offloadiing in place as prescribed N/A N/A N/A Experienced any changes in pain level or No No No management Left Footwear Regular Shoe Regular Shoe Other Footwear (Comment) Right Footwear Regular Shoe Regular Shoe Other Footwear (Comment) Other Footwear Boots Pain Scale: 0-10 Numeric Is Patient Pain Free? Yes Yes Yes 09/22/22 09:41 WC - Today's Visit Information Type of service Follow-up Visit (Physician/SUEDING MACHINE OPERATOR ) Arrival Mode Ambulatory, Wheelchair Transfer Assistance Manual Transfer Assist (Other) x2 Patient Identification Verified (Name & Yes ) Patient Requires Transmission-Based Precautions Safety Precautions Vital Signs Temperature (97.8 F-99.1 F) 97.1 F L Temperature Source Temporal Pulse Rate (60-100) 73 Pulse Location Monitor Respiratory Rate (12-18) 22 H Respiratory rate source Observation Oxygen Delivery Method Blood Pressure (90/60-120/80) 122/63 H Blood Pressure Mean (mm Hg) 82 Source Monitor Position Blood Pressure Location History Since Last Visit- (Skip if this is Patient's initial visit) Have you changed medications since your No last visit? Any new allergies or adverse reactions No Had a fall/change in ADL's that may No increase risk of falls Signs or symptoms of abuse and/or No neglect since last visit Have you been in the hospital since your No last visit? Has dressing in place as prescribed Yes Has compression in place as prescribed Yes Has offloadiing in place as prescribed N/A Experienced any changes in pain level or No management Left Footwear Right Footwear Other Footwear (Comment) Other Footwear Boots Pain Scale: 0-10 Numeric Is Patient Pain Free? Yes - Nurse 1 - General Ulcer Measurement Start: 09/01/22 10:18 Freq: Status: Active Protocol: Activity Type Activity Date Activity User E-sign Co-sign Detail Recorded Client Recorded Date Recorded By Document 09/01/22 10:18 DL [id number] 09/01/22 10:38 DL Document 09/08/22 09:57 BMF Desktop 09/08/22 10:23 BMF Document 09/15/22 09:43 DL [id number] 09/15/22 10:06 DL Document 09/22/22 09:41 DL [id number] 09/22/22 09:51 DL 09/01/22 09/08/22 09/15/22 10:18 09:57 09:43 Wound Center Nurse 1 #7 right medial sinclair -Combined with other wound No -Current Size (cm) - Length 2.6 2.3 -Current Size (cm) - Width 1.9 1.5 -Current Size (cm) - Depth 0.3 0.2 -Total Square Cm 4.94 3.45 -Date of Last Picture (Recall this 09/08/22 field) -Photo Taken No Yes Yes -Epithelialization None Present None Present -Tunneling No No -Undermining/Tunneling No No -Circular Undermining No No -Exudate Amt Medium Medium Medium -Exudate Type Serosanguineous Serosanguineous Serosanguineous -Wound Margin Distinct, Distinct, Distinct, Outline Outline Outline Attached Attached Attached -Granulation Amt Large (67-100%) Medium (34-66%) Medium (34-66%) -Granulation Quality Red Pale Red -Slough/Fibrin Yes Yes -Necrosis Amt Small (1-33%) Medium (34-66%) Medium (34-66%) -Necrotic Tissue Type Adherent Slough Adherent Slough Adherent Slough -Structure Exposed N/A -Texture ([place]-wound Skin Appearance) Assessed, Assessed, Scarring Scarring Scarring -Moisture ([place]-wound Skin Appearance) Assessed,Dry/ Assessed,Dry/ Dry/Scaly Scaly Scaly -Color ([place]-wound Skin Appearance) Assessed Assessed, Hemosiderin Hemosiderin Staining Staining -Temperature ([place]-wound Skin No Abnormality No Abnormality No Abnormality Appearance) (Pt Warm) (Pt Warm) (Pt Warm) -Tenderness on Palpation ([place]-wound No No Skin Appearance) -Ulcer Cleansing Soap and Water Soap and Water -Foul Odor after Cleansing No No -Anesthetic Used 4% Lidocaine 4% Lidocaine 5% Lidocaine Solution Solution Gel #6 right lateral sinclair -Combined with other wound No No -Current Size (cm) - Length 8 7.5 6.9 -Current Size (cm) - Width 3 4 3.6 -Current Size (cm) - Depth 0.3 0.2 0.2 -Total Square Cm 24 30.0 24.84 -Date of Last Picture (Recall this 09/08/22 field) -Photo Taken No Yes Yes -Epithelialization Small 1-33% Small 1-33% -Tunneling No No -Undermining/Tunneling No No -Circular Undermining No No -Exudate Amt Medium Medium Medium -Exudate Type Serosanguineous Serosanguineous Serosanguineous -Wound Margin Distinct, Distinct, Distinct, Outline Outline Outline Attached Attached Attached -Granulation Amt Medium (34-66%) Large (67-100%) Medium (34-66%) -Granulation Quality Red Red Red -Slough/Fibrin Yes Yes -Necrosis Amt Medium (34-66%) Small (1-33%) Medium (34-66%) -Necrotic Tissue Type Adherent Slough Adherent Slough Adherent Slough -Structure Exposed N/A -Texture ([place]-wound Skin Appearance) Assessed, Assessed, Scarring Fluctuance Scarring -Moisture ([place]-wound Skin Appearance) Assessed,Dry/ Assessed,Dry/ Dry/Scaly Scaly Scaly -Color ([place]-wound Skin Appearance) Assessed Assessed, Hemosiderin Hemosiderin Staining Staining -Temperature ([place]-wound Skin No Abnormality No Abnormality No Abnormality Appearance) (Pt Warm) (Pt Warm) (Pt Warm) -Tenderness on Palpation ([place]-wound No No No Skin Appearance) -Ulcer Cleansing Soap and Water Soap and Water Soap and Water -Foul Odor after Cleansing No No No -Anesthetic Used 4% Lidocaine 4% Lidocaine 5% Lidocaine Solution Solution Gel #2 R Med Ankle -Combined with other wound No -Current Size (cm) - Length 1.8 1.2 2.9 -Current Size (cm) - Width 3.2 1.2 3.5 -Current Size (cm) - Depth 0.1 0.2 0.1 -Total Square Cm 5.76 1.44 10.15 -Date of Last Picture (Recall this 09/08/22 field) -Photo Taken No Yes Yes -Epithelialization None Present None Present -Tunneling No No -Undermining/Tunneling No No -Circular Undermining No No -Exudate Amt Small Small Medium -Exudate Type Serous Serosanguineous Serosanguineous -Wound Margin Distinct, Distinct, Distinct, Outline Outline Outline Attached Attached Attached -Granulation Amt None Present (0 None Present (0 None Present (0 %) %) %) -Slough/Fibrin Yes Yes -Necrosis Amt Large (67-100%) Large (67-100%) Large (67-100%) -Necrotic Tissue Type Adherent Slough Adherent Slough Adherent Slough -Structure Exposed N/A -Texture ([place]-wound Skin Appearance) Assessed, Assessed, Scarring Scarring Scarring -Moisture ([place]-wound Skin Appearance) Assessed Assessed,Dry/ Dry/Scaly Scaly -Color ([place]-wound Skin Appearance) Assessed Assessed, Hemosiderin Hemosiderin Staining Staining -Temperature ([place]-wound Skin No Abnormality No Abnormality No Abnormality Appearance) (Pt Warm) (Pt Warm) (Pt Warm) -Tenderness on Palpation ([place]-wound No No No Skin Appearance) -Ulcer Cleansing Soap and Water Soap and Water Soap and Water -Foul Odor after Cleansing No No No -Anesthetic Used 4% Lidocaine 4% Lidocaine 5% Lidocaine Solution Solution Gel Lower Limb Edema Present Yes Yes Right Calf (cm) 44.5 47 53.5 Right Ankle (cm) 32 33.8 32.7 Left Calf (cm) 41.5 38.5 47.5 Left Ankle (cm) 32 33.5 31.7 09/22/22 09:41 Wound Center Nurse 1 #7 right medial sinclair -Combined with other wound -Current Size (cm) - Length 2.2 -Current Size (cm) - Width 1.8 -Current Size (cm) - Depth 0.1 -Total Square Cm 3.96 -Date of Last Picture (Recall this field) -Photo Taken No -Epithelialization -Tunneling -Undermining/Tunneling -Circular Undermining -Exudate Amt Medium -Exudate Type Serosanguineous -Wound Margin Distinct, Outline Attached -Granulation Amt Medium (34-66%) -Granulation Quality Red -Slough/Fibrin -Necrosis Amt Small (1-33%) -Necrotic Tissue Type Adherent Slough -Structure Exposed N/A -Texture ([place]-wound Skin Appearance) Scarring -Moisture ([place]-wound Skin Appearance) Dry/Scaly -Color ([place]-wound Skin Appearance) Hemosiderin Staining -Temperature ([place]-wound Skin No Abnormality Appearance) (Pt Warm) -Tenderness on Palpation ([place]-wound No Skin Appearance) -Ulcer Cleansing Soap and Water -Foul Odor after Cleansing -Anesthetic Used 5% Lidocaine Gel #6 right lateral sinclair -Combined with other wound -Current Size (cm) - Length 6.2 -Current Size (cm) - Width 3.2 -Current Size (cm) - Depth 0.2 -Total Square Cm 19.84 -Date of Last Picture (Recall this field) -Photo Taken No -Epithelialization -Tunneling -Undermining/Tunneling -Circular Undermining -Exudate Amt Medium -Exudate Type Serosanguineous -Wound Margin Distinct, Outline Attached -Granulation Amt Large (67-100%) -Granulation Quality Red -Slough/Fibrin -Necrosis Amt Small (1-33%) -Necrotic Tissue Type Adherent Slough -Structure Exposed N/A -Texture ([place]-wound Skin Appearance) Localized Edema ,Scarring -Moisture ([place]-wound Skin Appearance) Dry/Scaly -Color ([place]-wound Skin Appearance) Hemosiderin Staining -Temperature ([place]-wound Skin No Abnormality Appearance) (Pt Warm) -Tenderness on Palpation ([place]-wound No Skin Appearance) -Ulcer Cleansing Soap and Water -Foul Odor after Cleansing No -Anesthetic Used 5% Lidocaine Gel #2 R Med Ankle -Combined with other wound -Current Size (cm) - Length 3 -Current Size (cm) - Width 2.8 -Current Size (cm) - Depth 0.1 -Total Square Cm 8.4 -Date of Last Picture (Recall this field) -Photo Taken No -Epithelialization -Tunneling -Undermining/Tunneling -Circular Undermining -Exudate Amt Large -Exudate Type Serosanguineous -Wound Margin Distinct, Outline Attached -Granulation Amt None Present (0 %) -Slough/Fibrin -Necrosis Amt Large (67-100%) -Necrotic Tissue Type Adherent Slough -Structure Exposed N/A -Texture ([place]-wound Skin Appearance) Localized Edema ,Scarring -Moisture ([place]-wound Skin Appearance) Dry/Scaly -Color ([place]-wound Skin Appearance) Hemosiderin Staining -Temperature ([place]-wound Skin Appearance) -Tenderness on Palpation ([place]-wound No Skin Appearance) -Ulcer Cleansing Soap and Water -Foul Odor after Cleansing No -Anesthetic Used 5% Lidocaine Gel Lower Limb Edema Present Right Calf (cm) 52 Right Ankle (cm) 33 Left Calf (cm) 42 Left Ankle (cm) 32 WC - Nurse 2 - General Ulcer CM Notes Start: 09/01/22 10:18 Freq: Status: Active Protocol: Activity Type Activity Date Activity User E-sign Co-sign Detail Recorded Client Recorded Date Recorded By Document 09/01/22 10:53 MW [id number] 09/01/22 11:04 MW Document 09/08/22 10:36 MW [id number] 09/08/22 10:45 MW Document 09/15/22 10:16 MW [id number] 09/15/22 10:27 MW Edit Result 09/15/22 10:16 MW (1) [id number] 09/16/22 07:21 PL Document 09/22/22 10:11 MW [id number] 09/22/22 10:20 MW (1) #6 right lateral sinclair - Debridement - Subq, 1st 20sq cm Yes => No #2 R Med Ankle - Debridement - Subq, 1st 20sq cm Yes => No 09/01/22 09/08/22 09/15/22 10:53 10:36 10:16 Wound Center Nurse 2 #7 right medial sinclair -Time 10:54 10:37 10:16 -Correct Patient Yes Yes Yes -Correct Side, Site, Position Yes Yes Yes -Correct Procedure Yes Yes Yes -Procedure Performed Yes Yes Yes -Type of Procedure -Type of Procedure Debridement Debridement Debridement -Clinical Debridement Subcutaneous Subcutaneous Subcutaneous -Tissue Removed Subcutaneous Subcutaneous Subcutaneous -Post Debridement (cm) - Length 2.8 2.7 2.5 -Post Debridement (cm) - Width 4.3 1.1 1.0 -Post Debridement (cm) - Depth 0.3 0.2 0.2 -Total Square (Post) (cm) 12.04 2.97 2.50 -Area of Debridement (cm) - Length 2.8 2.7 2.5 -Area of Debridement (cm) - Width 4.3 1.1 1.0 -Total Square (Area) (cm) 12.04 2.97 2.50 -Tunneling No No No -Undermining/Tunneling No No No -Circular Undermining No No No -Wound/Ulcer Outcome Not Healed Not Healed Not Healed -Ulcer Cleansing Rinsed/ Rinsed/ Rinsed/ Irrigated with Irrigated with Irrigated with Saline Saline Saline -Foul Odor after Cleansing No No No -Bioengineered Tissue No No No -Bleeding Controlled with Pressure Pressure Pressure -Treatment Response Procedure Procedure Procedure Tolerated Well Tolerated Well Tolerated Well -Offloading No No No -Debridement - Subq, 1st 20sq cm Yes Yes Yes -Debridement, SubQ, ea addt'l 20sq cm 2 1 1 or part thereof #6 right lateral sinclair -Time 10:54 10:37 10:17 -Correct Patient Yes Yes Yes -Correct Side, Site, Position Yes Yes Yes -Correct Procedure Yes Yes Yes -Procedure Performed Yes Yes Yes -Type of Procedure -Type of Procedure Debridement Debridement Debridement -Clinical Debridement Subcutaneous Subcutaneous Subcutaneous -Tissue Removed Subcutaneous Subcutaneous Subcutaneous -Post Debridement (cm) - Length 7.7 7.5 7.5 -Post Debridement (cm) - Width 5.3 2.7 2.1 -Post Debridement (cm) - Depth 0.2 0.1 0.2 -Total Square (Post) (cm) 40.81 20.25 15.75 -Area of Debridement (cm) - Length 7.7 7.5 7.5 -Area of Debridement (cm) - Width 5.3 2.7 2.1 -Total Square (Area) (cm) 40.81 20.25 15.75 -Tunneling No No No -Undermining/Tunneling No No No -Circular Undermining No No No -Wound/Ulcer Outcome Not Healed Not Healed Not Healed -Ulcer Cleansing Rinsed/ Rinsed/ Rinsed/ Irrigated with Irrigated with Irrigated with Saline Saline Saline -Foul Odor after Cleansing No No No -Bioengineered Tissue No No No -Bleeding Controlled with Pressure Pressure Pressure -Treatment Response Procedure Procedure Tolerated Well Tolerated Well -Offloading No No No -Debridement - Subq, 1st 20sq cm No No No #2 R Med Ankle -Time 10:55 10:37 10:17 -Correct Patient Yes Yes Yes -Correct Side, Site, Position Yes Yes Yes -Correct Procedure Yes Yes -Procedure Performed Yes Yes Yes -Type of Procedure -Type of Procedure Debridement Debridement Debridement -Clinical Debridement Subcutaneous Subcutaneous Subcutaneous -Tissue Removed Subcutaneous Subcutaneous Subcutaneous -Post Debridement (cm) - Length 1.8 2.0 3.1 -Post Debridement (cm) - Width 2.4 3.0 3.3 -Post Debridement (cm) - Depth 0.1 0.1 0.1 -Total Square (Post) (cm) 4.32 6.00 10.23 -Area of Debridement (cm) - Length 1.8 2.0 3.1 -Area of Debridement (cm) - Width 2.4 3.0 3.3 -Total Square (Area) (cm) 4.32 6.00 10.23 -Tunneling No No No -Undermining/Tunneling No No No -Circular Undermining No No No -Wound/Ulcer Outcome Not Healed Not Healed Not Healed -Ulcer Cleansing Rinsed/ Rinsed/ Rinsed/ Irrigated with Irrigated with Irrigated with Saline Saline Saline -Foul Odor after Cleansing No No No -Bioengineered Tissue No No No -Bleeding Controlled with Pressure Pressure Pressure -Treatment Response Procedure Procedure Procedure Tolerated Well Tolerated Well Tolerated Well -Offloading No No No -Debridement - Subq, 1st 20sq cm No No No Pain Scale: 0-10 Numeric Is Patient Pain Free? Yes Yes Yes 09/22/22 10:11 Wound Center Nurse 2 #7 right medial sinclair -Time 10:12 -Correct Patient Yes -Correct Side, Site, Position Yes -Correct Procedure Yes -Procedure Performed Yes -Type of Procedure Debridement -Type of Procedure -Clinical Debridement Subcutaneous -Tissue Removed Subcutaneous -Post Debridement (cm) - Length 2.5 -Post Debridement (cm) - Width 1.0 -Post Debridement (cm) - Depth 0.2 -Total Square (Post) (cm) 2.50 -Area of Debridement (cm) - Length 2.5 -Area of Debridement (cm) - Width 1.0 -Total Square (Area) (cm) 2.50 -Tunneling No -Undermining/Tunneling No -Circular Undermining No -Wound/Ulcer Outcome Not Healed -Ulcer Cleansing Rinsed/ Irrigated with Saline -Foul Odor after Cleansing No -Bioengineered Tissue No -Bleeding Controlled with Pressure -Treatment Response Procedure Tolerated Well -Offloading No -Debridement - Subq, 1st 20sq cm Yes -Debridement, SubQ, ea addt'l 20sq cm or part thereof #6 right lateral sinclair -Time 10:12 -Correct Patient Yes -Correct Side, Site, Position Yes -Correct Procedure Yes -Procedure Performed Yes -Type of Procedure Debridement -Type of Procedure -Clinical Debridement Subcutaneous -Tissue Removed Subcutaneous -Post Debridement (cm) - Length 7.1 -Post Debridement (cm) - Width 2.1 -Post Debridement (cm) - Depth 0.2 -Total Square (Post) (cm) 14.91 -Area of Debridement (cm) - Length 7.1 -Area of Debridement (cm) - Width 2.1 -Total Square (Area) (cm) 14.91 -Tunneling No -Undermining/Tunneling No -Circular Undermining No -Wound/Ulcer Outcome Not Healed -Ulcer Cleansing Rinsed/ Irrigated with Saline -Foul Odor after Cleansing No -Bioengineered Tissue No -Bleeding Controlled with Pressure -Treatment Response Procedure Tolerated Well -Offloading -Debridement - Subq, 1st 20sq cm No #2 R Med Ankle -Time 10:13 -Correct Patient Yes -Correct Side, Site, Position Yes -Correct Procedure Yes -Procedure Performed Yes -Type of Procedure Debridement -Type of Procedure -Clinical Debridement Subcutaneous -Tissue Removed Subcutaneous -Post Debridement (cm) - Length 3.0 -Post Debridement (cm) - Width 3.3 -Post Debridement (cm) - Depth 0.1 -Total Square (Post) (cm) 9.90 -Area of Debridement (cm) - Length 3.0 -Area of Debridement (cm) - Width 3.3 -Total Square (Area) (cm) 9.90 -Tunneling No -Undermining/Tunneling No -Circular Undermining No -Wound/Ulcer Outcome Not Healed -Ulcer Cleansing Rinsed/ Irrigated with Saline -Foul Odor after Cleansing No -Bioengineered Tissue No -Bleeding Controlled with Pressure -Treatment Response Procedure Tolerated Well -Offloading No -Debridement - Subq, 1st 20sq cm No Pain Scale: 0-10 Numeric Is Patient Pain Free? Yes - Nurse 3 - General Ulcer D/C NN Start: 09/01/22 10:18 Freq: Status: Active Protocol: Activity Type Activity Date Activity User E-sign Co-sign Detail Recorded Client Recorded Date Recorded By Document 09/08/22 12:06 AL [id number] 09/08/22 12:08 AL Document 09/22/22 10:40 [facility] [id number] 09/22/22 10:42 [facility] 09/08/22 09/22/22 12:06 10:40 Wound Care Center Nurse 3 #7 right medial sinclair -Ulcer Cleansing Rinsed/ Irrigated with Saline -Foul Odor after Cleansing No -Primary Dressing Applied Aquacel AG 4x4, Aquacel Extra Optilok 6.5x10, Optilok 8x12 -Other Dressing bactroban; abd -Primary Dressing Covered/Secured with Dry Gauze & Dry Gauze & Roll Gauze, Roll Gauze, Secured with Secured with Tape Tape -Aquacel Extra 1 -Aquacel AG 4x4 1 -Optilok 6.5x10 1 -Optilok 8x12 1 #6 right lateral sinclair -Ulcer Cleansing Rinsed/ Irrigated with Saline -Foul Odor after Cleansing No -Primary Dressing Applied Aquacel Extra -Other Dressing bactroban; kerlix -Primary Dressing Covered/Secured with Dry Gauze & Roll Gauze, Secured with Tape -Other Covering abd -Aquacel Extra 0 #2 R Med Ankle -Ulcer Cleansing Rinsed/ Irrigated with Saline -Foul Odor after Cleansing No -Primary Dressing Applied Aquacel Extra -Other Dressing bactroban; abd -Primary Dressing Covered/Secured with Dry Gauze & Roll Gauze, Secured with Tape -Aquacel Extra 0 Right -Compression Wrap Hiro Wrap -Tubular Bandage Single Layer Single Layer -Size of Tubigrip Used Size E Size F -Size E ($) 1 -Size F ($) 2 -Other sent extra Left -Compression Wrap Hiro Wrap -Tubular Bandage Single Layer Single Layer -Size of Tubigrip Used Size E Size F -Size E ($) 1 -Size F ($) 2 -Other sent extra Treatment Response Procedure Tolerated Well Pain Scale: 0-10 Numeric Is Patient Pain Free? Yes Yes WC - Visit Discharge Discharge Condition Stable Stable Ambulatory Status Ambulatory Wheelchair Transportation [facility] Medication Reconcilliation completed & No provided to patient/care provider Clinical Summary of Care Provided Yes Other assisted living Additional Wound Wound debrided: Right lower extremity (medial) Type of Debridement: Excisional debridement Anesthesia Used: 4% Lidocaine Solution Depth: Down to and including healthy tissue and in the subcutaneous layer Percentage of wound debrided: 100 Instrument Used: 5mm curette Tissue Removed: Slough and devitalized tissue Severity: Fat Layer Exposed Amount of bleeding with debridement: Mild Bleeding Controlled with: Pressure Patient tolerated procedure: Patient tolerated procedure well Additional Wound Wound debrided: Right foot/medial ankle Type of Debridement: Excisional debridement Anesthesia Used: 4% Lidocaine Solution Depth: Down to and including healthy tissue and in the subcutaneous layer Percentage of wound debrided: 100 Instrument Used: 5mm curette Tissue Removed: Slough and devitalized tissue Severity: Fat Layer Exposed Amount of bleeding with debridement: Mild Bleeding Controlled with: Pressure Patient tolerated procedure: Patient tolerated procedure well Assessment/Plan Assessment/Plan (1) Ulcer of left lower extremity with fat layer exposed: CODE(S): L97.922 - Non-pressure chronic ulcer of unspecified part of left lower leg with fat layer exposed (2) Ulcer of right lower extremity with fat layer exposed: CODE(S): L97.912 - Non-pressure chronic ulcer of unspecified part of right lower leg with fat layer exposed (3) Ulcer of right foot with fat layer exposed: CODE(S): L97.512 - Non-pressure 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 Stable ulcerations this week. Good granulation tissue/base. Has an appointment with vascular surgery next week. Continue Aquacel daily and mupirocin to all ulcerations. Cover with superabsorbent dressing. Continue Tubigrip and Hiro wrap for edema management. Elevate lower extremities when seated and in bed. 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 Protein supplements twice daily. His questions were answered and he was advised to call with any further questions or concerns. Follow-up in 1 week. This note was generated with [employer] dictation software. It may contain incorrect words, spelling, and punctuation that were not noted in checking the note before signing.
== END 2022-09-27 23:59 | disposition home or self-care (01) ==
LOC: WC 09:30
PROVIDERS: PCP Family Medicine; Visit Provider Internal Medicine
DX: L97.922 Non-pressure chronic ulcer of unspecified part of left lower leg with fat layer exposed (principal); L97.512 Non-pressure chronic ulcer of other part of right foot with fat layer exposed; R60.0 Localized edema; R73.03 Prediabetes; I87.2 Venous insufficiency (chronic) (peripheral)
CPT/HCPCS: 11042; 11045; 93923; 93971

== ENCOUNTER → 2022-10-06 | Outpatient (CLI) | payer MEDICARE, MEDICAID, SELFPAY ==
--- NOTE | 2022-10-06 14:00 | VDLE_ITS ---
Reason For Study: swelling RIGHT LEFT CFV is compressible, spontaneous, phasic, CFV is compressible, spontaneous, phasic, competent and demonstrates normal competent, and demonstrates normal augmentation. augmentation. FV is compressible, spontaneous, phasic, FV is compressible, spontaneous, phasic, competent and demonstrates normal competent and demonstrates normal augmentation. augmentation. POP V is compressible, spontaneous, phasic, POP V is compressible, spontaneous, phasic, competent and demonstrates normal competent and demonstrates normal augmentation. augmentation. T/P Trunk is compressible. T/P Trunk is compressible. PTV is compressible. PTV is compressible. RT PerV is compressible. LT PerV is compressible. SFJ is competent and measures .78 cm. SFJ is competent and measures .45 cm. GSV proximal thigh measures .51 x .5 cm. GSV proximal thigh measures .47 x .48 cm. GSV INCOMPETENT throughout for greater than GSV at knee measures .48 x .49 cm. 0.5 seconds. SSV proximal calf is competent and SSV proximal calf is competent and measures .33 x .34 cm. measures .23 x .28 cm. GSV above knee is INCOMPETENT for greater Procedure than 0.5 seconds. This is a venous duplex using B-mode, color GSV below knee is competent. flow and spectral Doppler. Exam performed in department. The exam was diagnostic. VL/Venous Duplex US - Jeanmarie Extrem Interpretation Summary Deep veins of the bilateral lower extremities are patent and compressible segme ntally. There is no evidence of bilateral lower extremity deep vein thrombosis. The bilateral great saphenous veins appear patent and compressible segmentally. Positive for reflux in the right great saphenous vein Positive for reflux in the left great saphenous vein Ordering Physician: Ema Estrada Performed By: Homero Cruz RVT
== END | disposition home or self-care (01) ==
PROVIDERS: PCP Family Medicine; Visit Provider Physician Assistant
DX: L97.922 Non-pressure chronic ulcer of unspecified part of left lower leg with fat layer exposed (principal); L97.512 Non-pressure chronic ulcer of other part of right foot with fat layer exposed; I87.2 Venous insufficiency (chronic) (peripheral); R73.03 Prediabetes; M79.89 Other specified soft tissue disorders; M79.604 Pain in right leg; M79.605 Pain in left leg
CPT/HCPCS: 11042; 11045; 93970

== ENCOUNTER → 2022-10-13 | Outpatient (REF) | payer MEDICARE, MEDICAID, SELFPAY ==
[2022-10-13 09:32] LABS: Creatinine, Serum 1.03 mg/dL (0.70-1.30); EST Glomerular Filtration Rate 74 mL/min (>60); Est Glom Filt Rate - Afr Amer 89 mL/min (>60)
== END ==
LOC: OLS.SWAL 05:00
PROVIDERS: PCP Family Medicine
DX: I10 Essential (primary) hypertension (principal)
CPT/HCPCS: 36415; 82565

== ENCOUNTER → 2022-10-14 | Outpatient (CLI) | payer MEDICARE, MEDICAID, SELFPAY ==
--- NOTE | 2022-10-14 08:08 | CT_ITS ---
STUDY: CTA OF THE ABDOMINAL AORTA AND BILATERAL LOWER EXTREMITIES REASON FOR EXAM: Male, 82 years old. PAD, nonhealing RLE wounds RADIATION DOSAGE (If Supplied By Facility): CTDIvol = ( 10.41 ) mGy, DLP = ( 1662.00 ) mGycm TECHNIQUE: Axial CT angiography multi-detector data acquisition was obtained from the dome of the liver to the level of the ankles following intravenous administration of IV 100mL Isovue-370. Axial images and MIP images were reconstructed from the axial data set. Post-processing of the angiographic images was performed, with multiplanar reformation and 3D reconstruction. Individualized dose optimization techniques were used for this CT. TECHNICAL QUALITY: Good COMPARISON: None. Descriptors of Narrowing: None (0%) Mild (< 50%) Moderate (50-70%) Severe (70-90%) Subtotal/Total Occlusion (90-100%) Non-Evaluable (technically non-diagnostic FINDINGS: Coronary artery calcification. Diffuse fatty infiltration of the liver. The patient is status post cholecystectomy. There is a 2 cm x 1.6 cm cyst in the medial midportion of the left kidney. 1.8 cm cyst in the lateral portion of the right kidney. Abdominal aorta: Diffuse atherosclerotic calcification of the abdominal aorta. No evidence of aneurysmal formation. Celiac and superior mesenteric arteries: Atherosclerotic plaque formation at the origin of the celiac artery and superior mesenteric artery. No significant stenosis is seen. Inferior mesenteric artery: No demonstrated narrowing. Right renal artery(arteries): Atherosclerotic plaque in the proximal portion of the right renal artery. Left renal artery(arteries): Atherosclerotic plaque in the proximal and midportion of the left renal artery. Right common iliac artery: Nonstenotic calcific plaque. Right external iliac artery: Nonstenotic calcific plaque. Right internal iliac artery: No demonstrated narrowing. Left common iliac artery: Nonstenotic calcific plaques. Left external iliac artery: Nonstenotic calcific plaques. Left internal iliac artery: No demonstrated narrowing. RIGHT LOWER EXTREMITY Right common femoral artery: No demonstrated narrowing. Right profundus femoris: No demonstrated narrowing. Right superficial femoral: Multiple nonstenotic calcified plaques throughout the superficial femoral artery. Right popliteal artery: Nonstenotic calcific plaques in the distal popliteal artery Right tibioperoneal trunk: Nonstenotic calcific plaques. Right anterior tibial artery: No demonstrated narrowing. Right posterior tibial artery: No demonstrated narrowing. Right peroneal artery: No demonstrated narrowing. LEFT LOWER EXTREMITY Left common femoral artery: No demonstrated narrowing. Left profundus femoris: No demonstrated narrowing. Left superficial femoral: Nonstenotic diffuse calcific plaques throughout the superficial femoral artery. Left popliteal artery: Mild calcific plaques. Left tibioperoneal trunk: No demonstrated narrowing. Left anterior tibial artery: Nonvisualization of the anterior tibial artery with diffuse calcific plaques. Left posterior tibial artery: No demonstrated narrowing. Left peroneal artery: No demonstrated narrowing. CT/CTA Abd w/Runoff W/WO Contrast IMPRESSION: Atherosclerotic plaques throughout the abdominal aorta. Multiple plaques are seen throughout the vessels of the lower extremity. Three-vessel runoff in the right leg and 2 vessel runoff in the left leg. Electronically Signed: Fernando Grullon MD at 14:41 EST ,
== END | disposition home or self-care (01) ==
PROVIDERS: PCP Family Medicine; Visit Provider Physician Assistant
DX: I77.9 Disorder of arteries and arterioles, unspecified (principal); I70.0 Atherosclerosis of aorta
CPT/HCPCS: 75635; Q9967

== ENCOUNTER 2022-10-20 10:15 | Outpatient (RCR) | payer MEDICARE, MEDICAID, SELFPAY ==
[2022-09-28 00:22] VITALS: BP 122/63; PULSE 73; RESP 22; TEMP 36.2
[2022-09-29 09:54] VITALS: BP 124/63; PULSE 68; RESP 16; TEMP 36.1
--- NOTE | 2022-09-29 11:43 | PN.PCM_ITS ---
History of Present Illness Date of Service: 09/29/22 Chief Complaint: Bilateral lower extremity ulcers History of Wound: Mr. Boles is an 82-year-old currently residing at [facility] who presents due to nonhealing bilateral lower extremity ulceration. Has been present for some months. Has had some dressing changes done at his facility without any significant improvement. 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 Not very active. Significant bilateral lower extremity edema. He denies chills, fever or feeling of unwell. He states that his appetite is good. Progress of Wound: Right medial ankle still with no significant improvement. Stable/improving right leg ulcers. Objective Data Objective Data Vital Signs: Vital Signs Temp Pulse Resp BP O2 Del Method 97 F L 68 16 124/63 H Room Air 09/29/22 09:54 09/29/22 09:54 09/29/22 09:54 09/29/22 09:54 09/29/22 09:54 Oxygen Delivery Method Room Air Charges/Coding Procedures Integumentary 111xxx-113xx: 87720 Jaye subq tissue 20 sq cm/< Add On Codes: 69574 Jaye subq tissue add-on (x1. Additional square centimeter debrided, please refer to clinical note.) Physical Exam Const alert, oriented x3 and no apparent distress General Appearance: cooperative, comfortable and well kempt HEENT normocephalic and head/scalp atraumatic Eyes EOMs intact bilaterally General Eye: normal appearance of both eyes Neck full ROM General: normal visual inspection Resp normal respiratory effort Effort and Inspection: able to speak in complete sentences Extremity General Extremity: edema Skin Wounds: wounds noted Neuro oriented x3, CN's II-XII intact bilaterally, moves all extremities and no focal motor deficits Psych mental status grossly normal, thought process normal, cooperative and affect normal Debridement Note Debridement Note Wound debrided: Right lower extremity lateral cluster Type of Debridement: Excisional debridement Anesthesia Used: 4% Lidocaine Solution Depth: Down to and including healthy tissue and in the subcutaneous layer Percentage of wound debrided: 100 Severity: Fat Layer Exposed Amount of bleeding with debridement: Mild Bleeding Controlled with: Pressure Patient tolerated procedure: Patient tolerated procedure well Post-Debridement Measurements and Additional Note: Post-Debridement Measurements/Treatment JANAY - Nurse 1 - General Ulcer Assessment Start: 09/29/22 09:53 Freq: Status: Active Protocol: JANAY.NAVID Activity Type Activity Date Activity User E-sign Co-sign Detail Recorded Client Recorded Date Recorded By Document 09/29/22 09:54 [facility] [id number] 09/29/22 10:07 [facility] 09/29/22 09:54 - Today's Visit Information Type of service Follow-up Visit (Physician/CR[facility]ER ) Arrival Mode Wheelchair Transfer Assistance Other Transfer Assist (Other) 2 ASSIST Patient Identification Verified (Name & Yes ) Patient Requires Transmission-Based No Precautions Vital Signs Temperature (97.8 F-99.1 F) 97 F L Temperature Source Temporal Pulse Rate (60-100) 68 Pulse Location Monitor Respiratory Rate (12-18) 16 Respiratory rate source Observation Oxygen Delivery Method Room Air Blood Pressure (90/60-120/80) 124/63 H Blood Pressure Mean (mm Hg) 83 Source Monitor Position Sitting Blood Pressure Location Left Arm History Since Last Visit- (Skip if this is Patient's initial visit) Have you changed medications since your No last visit? Any new allergies or adverse reactions No Had a fall/change in ADL's that may No increase risk of falls Signs or symptoms of abuse and/or No neglect since last visit Have you been in the hospital since your No last visit? Has dressing in place as prescribed Yes Has compression in place as prescribed Yes Has offloadiing in place as prescribed N/A Experienced any changes in pain level or No management Left Footwear Regular Shoe Right Footwear Regular Shoe Pain Scale: 0-10 Numeric Is Patient Pain Free? Yes - Nurse 1 - General Ulcer Measurement Start: 09/29/22 09:53 Freq: Status: Active Protocol: Activity Type Activity Date Activity User E-sign Co-sign Detail Recorded Client Recorded Date Recorded By Document 09/29/22 09:54 [facility] [id number] 09/29/22 10:07 [facility] 09/29/22 09:54 Wound Center Nurse 1 #8- RLE/ANKLE -Combined with other wound No -Current Size (cm) - Length 1 -Current Size (cm) - Width 0.5 -Current Size (cm) - Depth 0.1 -Total Square Cm 0.5 -Date of Last Picture (Recall this 09/29/22 field) -Photo Taken Yes -Epithelialization None Present -Tunneling No -Undermining/Tunneling No -Circular Undermining No -Exudate Amt Small -Exudate Type Serosanguineous -Wound Margin Distinct, Outline Attached -Granulation Amt Large (67-100%) -Granulation Quality Red -Slough/Fibrin No -Necrosis Amt None Present (0 %) -Texture ([place]-wound Skin Appearance) Assessed, Scarring -Moisture ([place]-wound Skin Appearance) Assessed -Color ([place]-wound Skin Appearance) Assessed -Temperature ([place]-wound Skin No Abnormality Appearance) (Pt Warm) -Tenderness on Palpation ([place]-wound No Skin Appearance) -Ulcer Cleansing Rinsed/ Irrigated with Saline -Foul Odor after Cleansing No -Anesthetic Used 5% Lidocaine Gel #7 right medial sinclair -Combined with other wound No -Current Size (cm) - Length 3.2 -Current Size (cm) - Width 3.8 -Current Size (cm) - Depth 0.1 -Total Square Cm 12.16 -Date of Last Picture (Recall this 09/29/22 field) -Photo Taken Yes -Epithelialization None Present -Tunneling No -Undermining/Tunneling No -Circular Undermining No -Exudate Amt Medium -Exudate Type Serosanguineous -Wound Margin Distinct, Outline Attached -Granulation Amt Medium (34-66%) -Granulation Quality Red -Slough/Fibrin Yes -Necrosis Amt Medium (34-66%) -Necrotic Tissue Type Adherent Slough -Texture ([place]-wound Skin Appearance) Assessed, Fluctuance, Scarring -Moisture ([place]-wound Skin Appearance) Assessed,Dry/ Scaly -Color ([place]-wound Skin Appearance) Assessed -Temperature ([place]-wound Skin No Abnormality Appearance) (Pt Warm) -Tenderness on Palpation ([place]-wound No Skin Appearance) -Ulcer Cleansing Rinsed/ Irrigated with Saline -Foul Odor after Cleansing No -Anesthetic Used 5% Lidocaine Gel #6 right lateral sinclair -Combined with other wound No -Current Size (cm) - Length 6.9 -Current Size (cm) - Width 2.5 -Current Size (cm) - Depth 0.2 -Total Square Cm 17.25 -Date of Last Picture (Recall this 09/29/22 field) -Photo Taken Yes -Epithelialization None Present -Tunneling No -Undermining/Tunneling No -Circular Undermining No -Exudate Amt Medium -Exudate Type Serosanguineous -Wound Margin Distinct, Outline Attached -Granulation Amt Large (67-100%) -Granulation Quality Red -Slough/Fibrin Yes -Necrosis Amt Small (1-33%) -Necrotic Tissue Type Adherent Slough -Texture ([place]-wound Skin Appearance) Assessed, Scarring -Moisture ([place]-wound Skin Appearance) Assessed,Dry/ Scaly -Color ([place]-wound Skin Appearance) Assessed -Temperature ([place]-wound Skin No Abnormality Appearance) (Pt Warm) -Tenderness on Palpation ([place]-wound No Skin Appearance) -Ulcer Cleansing Rinsed/ Irrigated with Saline -Foul Odor after Cleansing No -Anesthetic Used 5% Lidocaine Gel #2 R Med Ankle -Combined with other wound No -Current Size (cm) - Length 3.2 -Current Size (cm) - Width 0.8 -Current Size (cm) - Depth 0.1 -Total Square Cm 2.56 -Date of Last Picture (Recall this 09/29/22 field) -Photo Taken Yes -Epithelialization None Present -Tunneling No -Undermining/Tunneling No -Circular Undermining No -Exudate Amt Small -Exudate Type Serous -Wound Margin Distinct, Outline Attached -Granulation Amt None Present (0 %) -Slough/Fibrin Yes -Necrosis Amt Large (67-100%) -Necrotic Tissue Type Adherent Slough -Texture ([place]-wound Skin Appearance) Assessed, Scarring -Moisture ([place]-wound Skin Appearance) Assessed,Dry/ Scaly -Color ([place]-wound Skin Appearance) Assessed -Temperature ([place]-wound Skin No Abnormality Appearance) (Pt Warm) -Tenderness on Palpation ([place]-wound No Skin Appearance) -Ulcer Cleansing Rinsed/ Irrigated with Saline -Foul Odor after Cleansing No -Anesthetic Used 5% Lidocaine Gel Lower Limb Edema Present Yes Right Calf (cm) 48.2 Right Ankle (cm) 32.3 Left Calf (cm) 41.5 Left Ankle (cm) 30.3 WC - Nurse 2 - General Ulcer CM Notes Start: 09/29/22 09:53 Freq: Status: Active Protocol: Activity Type Activity Date Activity User E-sign Co-sign Detail Recorded Client Recorded Date Recorded By Document 09/29/22 10:19 MW [id number] 09/29/22 10:25 MW 09/29/22 10:19 Wound Center Nurse 2 #8- RLE/ANKLE -Time 10:19 -Correct Patient Yes -Correct Side, Site, Position Yes -Correct Procedure Yes -Procedure Performed Yes -Type of Procedure Debridement -Clinical Debridement Subcutaneous -Tissue Removed Subcutaneous -Post Debridement (cm) - Length 3.5 -Post Debridement (cm) - Width 4.0 -Post Debridement (cm) - Depth 0.1 -Total Square (Post) (cm) 14.00 -Area of Debridement (cm) - Length 3.5 -Area of Debridement (cm) - Width 4.0 -Total Square (Area) (cm) 14.00 -Tunneling No -Undermining/Tunneling No -Circular Undermining No -Wound/Ulcer Outcome Not Healed -Ulcer Cleansing Rinsed/ Irrigated with Saline -Foul Odor after Cleansing No -Bioengineered Tissue No -Bleeding Controlled with Pressure -Treatment Response Procedure Tolerated Well -Offloading No -Debridement - Subq, 1st 20sq cm Yes -Debridement, SubQ, ea addt'l 20sq cm 1 or part thereof #7 right medial sinclair -Time 10:19 -Correct Patient Yes -Correct Side, Site, Position Yes -Correct Procedure Yes -Procedure Performed Yes -Type of Procedure Debridement -Clinical Debridement Subcutaneous -Tissue Removed Subcutaneous -Post Debridement (cm) - Length 2.4 -Post Debridement (cm) - Width 0.9 -Post Debridement (cm) - Depth 0.2 -Total Square (Post) (cm) 2.16 -Area of Debridement (cm) - Length 2.4 -Area of Debridement (cm) - Width 0.9 -Total Square (Area) (cm) 2.16 -Tunneling No -Undermining/Tunneling No -Circular Undermining No -Wound/Ulcer Outcome Not Healed -Ulcer Cleansing Rinsed/ Irrigated with Saline -Foul Odor after Cleansing No -Bioengineered Tissue No -Bleeding Controlled with Pressure -Treatment Response Procedure Tolerated Well -Offloading No -Debridement - Subq, 1st 20sq cm No #6 right lateral sinclair -Time 10:20 -Correct Patient Yes -Correct Side, Site, Position Yes -Correct Procedure Yes -Procedure Performed Yes -Type of Procedure Debridement -Clinical Debridement Subcutaneous -Tissue Removed Subcutaneous -Post Debridement (cm) - Length 6.6 -Post Debridement (cm) - Width 1.7 -Post Debridement (cm) - Depth 0.2 -Total Square (Post) (cm) 11.22 -Area of Debridement (cm) - Length 6.6 -Area of Debridement (cm) - Width 1.7 -Total Square (Area) (cm) 11.22 -Tunneling No -Undermining/Tunneling No -Circular Undermining No -Wound/Ulcer Outcome Not Healed -Ulcer Cleansing Rinsed/ Irrigated with Saline -Foul Odor after Cleansing No -Bioengineered Tissue No -Bleeding Controlled with Pressure -Treatment Response Procedure Tolerated Well -Offloading No -Debridement - Subq, 1st 20sq cm No #2 R Med Ankle -Time 10:20 -Correct Patient Yes -Correct Side, Site, Position Yes -Correct Procedure Yes -Procedure Performed Yes -Type of Procedure Debridement -Clinical Debridement Subcutaneous -Tissue Removed Subcutaneous -Tunneling No -Undermining/Tunneling No -Circular Undermining No -Wound/Ulcer Outcome Not Healed -Ulcer Cleansing Rinsed/ Irrigated with Saline -Foul Odor after Cleansing No -Bioengineered Tissue No -Bleeding Controlled with Pressure -Treatment Response Procedure Tolerated Well -Offloading No -Debridement - Subq, 1st 20sq cm No Pain Scale: 0-10 Numeric Is Patient Pain Free? Yes WC - Nurse 3 - General Ulcer D/C NN Start: 09/29/22 09:53 Freq: Status: Active Protocol: Activity Type Activity Date Activity User E-sign Co-sign Detail Recorded Client Recorded Date Recorded By Document 09/29/22 11:25 DL [id number] 09/29/22 11:29 DL 09/29/22 11:25 Wound Care Center Nurse 3 #8- RLE/ANKLE -Ulcer Cleansing Soap and Water -Foul Odor after Cleansing No -Primary Dressing Applied Aquacel Extra -Other Dressing bactroban -Primary Dressing Covered/Secured with Dry Gauze & Roll Gauze, Secured with Tape -Aquacel Extra 1 #7 right medial sinclair -Ulcer Cleansing Soap and Water -Foul Odor after Cleansing No -Other Dressing bactroban/ aqaucel Ex -Primary Dressing Covered/Secured with Dry Gauze & Roll Gauze, Secured with Tape #6 right lateral sinclair -Ulcer Cleansing Soap and Water -Foul Odor after Cleansing No -Other Dressing bactroban/ aquacel Ex -Primary Dressing Covered/Secured with Dry Gauze & Roll Gauze, Secured with Tape #2 R Med Ankle -Ulcer Cleansing Soap and Water -Foul Odor after Cleansing No -Other Dressing bactroban/ aquacel Ex -Primary Dressing Covered/Secured with Dry Gauze & Roll Gauze, Secured with Tape Treatment Response Procedure Tolerated Well Pain Scale: 0-10 Numeric Is Patient Pain Free? Yes WC - Visit Discharge Discharge Condition Stable Ambulatory Status Ambulatory, Wheelchair Transportation [facility] Facility Type Adult Health Clinical Nurse Specialist Care Facility Orders Sent Yes Additional Wound Wound debrided: Right lower extremity (medial) Type of Debridement: Excisional debridement Anesthesia Used: 4% Lidocaine Solution Depth: Down to and including healthy tissue and in the subcutaneous layer Percentage of wound debrided: 100 Instrument Used: 5mm curette Tissue Removed: Slough and devitalized tissue Severity: Fat Layer Exposed Amount of bleeding with debridement: Mild Bleeding Controlled with: Pressure Patient tolerated procedure: Patient tolerated procedure well Additional Wound Wound debrided: Right foot/medial ankle Type of Debridement: Excisional debridement Anesthesia Used: 4% Lidocaine Solution Depth: Down to and including healthy tissue and in the subcutaneous layer Percentage of wound debrided: 100 Instrument Used: 5mm curette Tissue Removed: Slough and devitalized tissue Severity: Fat Layer Exposed Amount of bleeding with debridement: Mild Bleeding Controlled with: Pressure Patient tolerated procedure: Patient tolerated procedure well Assessment/Plan Assessment/Plan (1) Ulcer of left lower extremity with fat layer exposed: CODE(S): L97.922 - Non-pressure chronic ulcer of unspecified part of left lower leg with fat layer exposed (2) Ulcer of right lower extremity with fat layer exposed: CODE(S): L97.912 - Non-pressure chronic ulcer of unspecified part of right lower leg with fat layer exposed (3) Ulcer of right foot with fat layer exposed: CODE(S): L97.512 - Non-pressure 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 Medial ankle with no significant improvement. Toe brachial index was reduced on recent vascular study, has an appointment with the vascular surgeon today. Continue Aquacel daily and mupirocin to all ulcerations. Cover with superabsorbent dressing. Continue Tubigrip and Hiro wrap for edema management. Elevate lower extremities when seated and in bed. 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 Protein supplements twice daily. His questions were answered and he was advised to call with any further questions or concerns. Follow-up in 1 week. This note was generated with [employer] dictation software. It may contain incorrect words, spelling, and punctuation that were not noted in checking the note before signing.
[2022-10-06 09:10] VITALS: TEMP 36
--- NOTE | 2022-10-06 10:17 | PN.PCM_ITS ---
History of Present Illness Date of Service: 10/06/22 Chief Complaint: Bilateral lower extremity ulcers History of Wound: Mr. Boles is an 82-year-old currently residing at [facility] who presents due to nonhealing bilateral lower extremity ulceration. Has been present for some months. Has had some dressing changes done at his facility without any significant improvement. 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 Not very active. Significant bilateral lower extremity edema. He denies chills, fever or feeling of unwell. He states that his appetite is good. Progress of Wound: Right medial ankle still with no improvement. Stable/improving right leg ulcers. Had initial appointment with Vascular PA. Objective Data Objective Data Vital Signs: Vital Signs Temp Pulse Resp BP O2 Del Method 96.8 F L 68 16 124/63 H Room Air 10/06/22 09:10 09/29/22 09:54 09/29/22 09:54 09/29/22 09:54 09/29/22 09:54 Oxygen Delivery Method Room Air Charges/Coding Procedures Integumentary 111xxx-113xx: [id number] Jaye subq tissue 20 sq cm/< Add On Codes: 04246 Jaye subq tissue add-on (x1 additional square centimeter debrided, please refer to clinical note) Physical Exam Const alert, oriented x3 and no apparent distress General Appearance: cooperative, comfortable and well kempt HEENT normocephalic and head/scalp atraumatic Eyes EOMs intact bilaterally General Eye: normal appearance of both eyes Neck full ROM General: normal visual inspection Resp normal respiratory effort Effort and Inspection: able to speak in complete sentences Extremity General Extremity: edema Skin Wounds: wounds noted Neuro oriented x3, CN's II-XII intact bilaterally, moves all extremities and no focal motor deficits Psych mental status grossly normal, thought process normal, cooperative and affect normal Debridement Note Debridement Note Wound debrided: Right lower extremity lateral cluster Type of Debridement: Excisional debridement Anesthesia Used: 5% Lidocaine Gel Depth: Down to and including healthy tissue and in the subcutaneous layer Percentage of wound debrided: 100 Severity: Fat Layer Exposed Amount of bleeding with debridement: Mild Bleeding Controlled with: Pressure Patient tolerated procedure: Patient tolerated procedure well Post-Debridement Measurements and Additional Note: Post-Debridement Measurements/Treatment WC - Nurse 1 - General Ulcer Assessment Start: 09/29/22 09:53 Freq: Status: Active Protocol: LINDA Activity Type Activity Date Activity User E-sign Co-sign Detail Recorded Client Recorded Date Recorded By Document 09/29/22 09:54 [facility] [id number] 09/29/22 10:07 [facility] Document 10/06/22 09:10 ML [id number] 10/06/22 09:27 ML 09/29/22 10/06/22 09:54 09:10 - Today's Visit Information Type of service Follow-up Visit Follow-up Visit (Physician/INTERNET AND E BUSINESS PROJECT MANAGER (Physician/INTERNET AND E BUSINESS PROJECT MANAGER ) ) Arrival Mode Wheelchair Wheelchair Transfer Assistance Other None Transfer Assist (Other) 2 ASSIST Patient Identification Verified (Name & Yes Yes ) Patient Requires Transmission-Based No No Precautions Safety Precautions NA Vital Signs Temperature (97.8 F-99.1 F) 97 F L 96.8 F L Temperature Source Temporal Temporal Pulse Rate (60-100) 68 Pulse Location Monitor Respiratory Rate (12-18) 16 Respiratory rate source Observation Oxygen Delivery Method Room Air Blood Pressure (90/60-120/80) 124/63 H Blood Pressure Mean (mm Hg) 83 Source Monitor Position Sitting Blood Pressure Location Left Arm History Since Last Visit- (Skip if this is Patient's initial visit) Have you changed medications since your No No last visit? Any new allergies or adverse reactions No No Had a fall/change in ADL's that may No increase risk of falls Signs or symptoms of abuse and/or No No neglect since last visit Have you been in the hospital since your No No last visit? Has dressing in place as prescribed Yes Yes Has compression in place as prescribed Yes N/A Has offloadiing in place as prescribed N/A N/A Experienced any changes in pain level or No No management Left Footwear Regular Shoe Regular Shoe Right Footwear Regular Shoe Regular Shoe Pain Scale: 0-10 Numeric Is Patient Pain Free? Yes Yes - Nurse 1 - General Ulcer Measurement Start: 09/29/22 09:53 Freq: Status: Active Protocol: Activity Type Activity Date Activity User E-sign Co-sign Detail Recorded Client Recorded Date Recorded By Document 09/29/22 09:54 [facility] [id number] 09/29/22 10:07 [facility] Document 10/06/22 09:10 ML [id number] 10/06/22 09:27 ML 09/29/22 10/06/22 09:54 09:10 Wound Center Nurse 1 #2 R Med Ankle -Combined with other wound No -Current Size (cm) - Length 3.2 0 -Current Size (cm) - Width 0.8 0 -Current Size (cm) - Depth 0.1 0 -Total Square Cm 2.56 0 -Date of Last Picture (Recall this 09/29/22 field) -Photo Taken Yes -Epithelialization None Present -Tunneling No -Undermining/Tunneling No -Circular Undermining No -Exudate Amt Small -Exudate Type Serous -Wound Margin Distinct, Outline Attached -Granulation Amt None Present (0 %) -Slough/Fibrin Yes -Necrosis Amt Large (67-100%) -Necrotic Tissue Type Adherent Slough -Texture ([place]-wound Skin Appearance) Assessed, Scarring -Moisture ([place]-wound Skin Appearance) Assessed,Dry/ Scaly -Color ([place]-wound Skin Appearance) Assessed -Temperature ([place]-wound Skin No Abnormality Appearance) (Pt Warm) -Tenderness on Palpation ([place]-wound No No Skin Appearance) -Ulcer Cleansing Rinsed/ Irrigated with Saline -Foul Odor after Cleansing No -Anesthetic Used 5% Lidocaine Gel #8- RLE/ANKLE -Combined with other wound No -Current Size (cm) - Length 1 4 -Current Size (cm) - Width 0.5 3.0 -Current Size (cm) - Depth 0.1 0.1 -Total Square Cm 0.5 12.0 -Date of Last Picture (Recall this 09/29/22 field) -Photo Taken Yes -Epithelialization None Present -Tunneling No -Undermining/Tunneling No -Circular Undermining No -Change in Wound Grade/Stage No -Exudate Amt Small -Exudate Type Serosanguineous Sanguineous -Wound Margin Distinct, Distinct, Outline Outline Attached Attached -Granulation Amt Large (67-100%) -Granulation Quality Red -Slough/Fibrin No -Necrosis Amt None Present (0 %) -Necrotic Tissue Type Adherent Slough -Texture ([place]-wound Skin Appearance) Assessed, Not Assessed Scarring -Moisture ([place]-wound Skin Appearance) Assessed Assessed -Color ([place]-wound Skin Appearance) Assessed Assessed -Temperature ([place]-wound Skin No Abnormality No Abnormality Appearance) (Pt Warm) (Pt Warm) -Tenderness on Palpation ([place]-wound No No Skin Appearance) -Ulcer Cleansing Rinsed/ Soap and Water Irrigated with Saline -Foul Odor after Cleansing No No -Anesthetic Used 5% Lidocaine 5% Lidocaine Gel Gel #7 right medial sinclair -Combined with other wound No -Current Size (cm) - Length 3.2 1.9 -Current Size (cm) - Width 3.8 1 -Current Size (cm) - Depth 0.1 0.2 -Total Square Cm 12.16 1.9 -Date of Last Picture (Recall this 09/29/22 field) -Photo Taken Yes -Epithelialization None Present -Tunneling No -Undermining/Tunneling No -Circular Undermining No -Exudate Amt Medium -Exudate Type Serosanguineous Sanguineous -Wound Margin Distinct, Distinct, Outline Outline Attached Attached -Granulation Amt Medium (34-66%) -Granulation Quality Red -Slough/Fibrin Yes Yes -Necrosis Amt Medium (34-66%) Medium (34-66%) -Necrotic Tissue Type Adherent Slough Adherent Slough -Texture ([place]-wound Skin Appearance) Assessed, Assessed Fluctuance, Scarring -Moisture ([place]-wound Skin Appearance) Assessed,Dry/ Assessed Scaly -Color ([place]-wound Skin Appearance) Assessed Assessed -Temperature ([place]-wound Skin No Abnormality Appearance) (Pt Warm) -Tenderness on Palpation ([place]-wound No No Skin Appearance) -Ulcer Cleansing Rinsed/ Soap and Water Irrigated with Saline -Foul Odor after Cleansing No No -Anesthetic Used 5% Lidocaine 5% Lidocaine Gel Gel #6 right lateral sinclair -Combined with other wound No -Current Size (cm) - Length 6.9 0.2 -Current Size (cm) - Width 2.5 6.2 -Current Size (cm) - Depth 0.2 0.2 -Total Square Cm 17.25 1.24 -Date of Last Picture (Recall this 09/29/22 field) -Photo Taken Yes -Epithelialization None Present -Tunneling No -Undermining/Tunneling No -Circular Undermining No -Exudate Amt Medium Medium -Exudate Type Serosanguineous Serosanguineous -Wound Margin Distinct, Distinct, Outline Outline Attached Attached -Granulation Amt Large (67-100%) -Granulation Quality Red -Slough/Fibrin Yes Yes -Necrosis Amt Small (1-33%) -Necrotic Tissue Type Adherent Slough Adherent Slough -Texture ([place]-wound Skin Appearance) Assessed, Assessed Scarring -Moisture ([place]-wound Skin Appearance) Assessed,Dry/ Assessed Scaly -Color ([place]-wound Skin Appearance) Assessed Assessed -Temperature ([place]-wound Skin No Abnormality No Abnormality Appearance) (Pt Warm) (Pt Warm) -Tenderness on Palpation ([place]-wound No No Skin Appearance) -Ulcer Cleansing Rinsed/ Soap and Water Irrigated with Saline -Foul Odor after Cleansing No -Anesthetic Used 5% Lidocaine 5% Lidocaine Gel Gel Lower Limb Edema Present Yes Right Calf (cm) 48.2 40.3 Right Ankle (cm) 32.3 32.2 Left Calf (cm) 41.5 40.3 Left Ankle (cm) 30.3 31.7 WC - Nurse 2 - General Ulcer CM Notes Start: 09/29/22 09:53 Freq: Status: Active Protocol: Activity Type Activity Date Activity User E-sign Co-sign Detail Recorded Client Recorded Date Recorded By Document 09/29/22 10:19 MW [id number] 09/29/22 10:25 MW Document 10/06/22 09:45 MW [id number] 10/06/22 09:54 MW 09/29/22 10/06/22 10:19 09:45 Wound Center Nurse 2 #2 R Med Ankle -Time 10:20 -Correct Patient Yes -Correct Side, Site, Position Yes -Correct Procedure Yes -Procedure Performed Yes -Type of Procedure Debridement -Clinical Debridement Subcutaneous -Tissue Removed Subcutaneous -Tunneling No -Undermining/Tunneling No -Circular Undermining No -Wound/Ulcer Outcome Not Healed -Ulcer Cleansing Rinsed/ Irrigated with Saline -Foul Odor after Cleansing No -Bioengineered Tissue No -Bleeding Controlled with Pressure -Treatment Response Procedure Tolerated Well -Offloading No -Debridement - Subq, 1st 20sq cm No #8- RLE/ANKLE -Time 10:19 09:46 -Correct Patient Yes Yes -Correct Side, Site, Position Yes Yes -Correct Procedure Yes Yes -Procedure Performed Yes Yes -Type of Procedure Debridement Debridement -Clinical Debridement Subcutaneous Subcutaneous -Tissue Removed Subcutaneous Subcutaneous -Post Debridement (cm) - Length 3.5 4.0 -Post Debridement (cm) - Width 4.0 5.0 -Post Debridement (cm) - Depth 0.1 0.1 -Total Square (Post) (cm) 14.00 20.00 -Area of Debridement (cm) - Length 3.5 4.0 -Area of Debridement (cm) - Width 4.0 5.0 -Total Square (Area) (cm) 14.00 20.00 -Tunneling No No -Undermining/Tunneling No No -Circular Undermining No No -Wound/Ulcer Outcome Not Healed Not Healed -Ulcer Cleansing Rinsed/ Rinsed/ Irrigated with Irrigated with Saline Saline -Foul Odor after Cleansing No No -Bioengineered Tissue No No -Bleeding Controlled with Pressure Pressure -Treatment Response Procedure Procedure Tolerated Well Tolerated Well -Offloading No No -Debridement - Subq, 1st 20sq cm Yes Yes -Debridement, SubQ, ea addt'l 20sq cm 1 1 or part thereof #7 right medial sinclair -Time 10:19 09:46 -Correct Patient Yes Yes -Correct Side, Site, Position Yes Yes -Correct Procedure Yes Yes -Procedure Performed Yes Yes -Type of Procedure Debridement Debridement -Clinical Debridement Subcutaneous Subcutaneous -Tissue Removed Subcutaneous Subcutaneous -Post Debridement (cm) - Length 2.4 2.2 -Post Debridement (cm) - Width 0.9 0.9 -Post Debridement (cm) - Depth 0.2 0.2 -Total Square (Post) (cm) 2.16 1.98 -Area of Debridement (cm) - Length 2.4 2.2 -Area of Debridement (cm) - Width 0.9 0.9 -Total Square (Area) (cm) 2.16 1.98 -Tunneling No No -Undermining/Tunneling No No -Circular Undermining No No -Wound/Ulcer Outcome Not Healed Not Healed -Ulcer Cleansing Rinsed/ Rinsed/ Irrigated with Irrigated with Saline Saline -Foul Odor after Cleansing No No -Bioengineered Tissue No No -Bleeding Controlled with Pressure Pressure -Treatment Response Procedure Procedure Tolerated Well Tolerated Well -Offloading No No -Debridement - Subq, 1st 20sq cm No No #6 right lateral sinclair -Time 10:20 09:46 -Correct Patient Yes Yes -Correct Side, Site, Position Yes Yes -Correct Procedure Yes Yes -Procedure Performed Yes Yes -Type of Procedure Debridement Debridement -Clinical Debridement Subcutaneous Subcutaneous -Tissue Removed Subcutaneous Subcutaneous -Post Debridement (cm) - Length 6.6 6.5 -Post Debridement (cm) - Width 1.7 1.6 -Post Debridement (cm) - Depth 0.2 0.2 -Total Square (Post) (cm) 11.22 10.40 -Area of Debridement (cm) - Length 6.6 6.5 -Area of Debridement (cm) - Width 1.7 1.6 -Total Square (Area) (cm) 11.22 10.40 -Tunneling No No -Undermining/Tunneling No No -Circular Undermining No No -Wound/Ulcer Outcome Not Healed Not Healed -Ulcer Cleansing Rinsed/ Irrigated with Saline -Foul Odor after Cleansing No -Bioengineered Tissue No -Bleeding Controlled with Pressure Pressure -Treatment Response Procedure Procedure Tolerated Well Tolerated Well -Offloading No No -Debridement - Subq, 1st 20sq cm No No Pain Scale: 0-10 Numeric Is Patient Pain Free? Yes Yes WC - Nurse 3 - General Ulcer D/C NN Start: 09/29/22 09:53 Freq: Status: Active Protocol: Activity Type Activity Date Activity User E-sign Co-sign Detail Recorded Client Recorded Date Recorded By Document 09/29/22 11:25 DL [id number] 09/29/22 11:29 DL 09/29/22 11:25 Wound Care Center Nurse 3 #2 R Med Ankle -Ulcer Cleansing Soap and Water -Foul Odor after Cleansing No -Other Dressing bactroban/ aquacel Ex -Primary Dressing Covered/Secured with Dry Gauze & Roll Gauze, Secured with Tape #8- RLE/ANKLE -Ulcer Cleansing Soap and Water -Foul Odor after Cleansing No -Primary Dressing Applied Aquacel Extra -Other Dressing bactroban -Primary Dressing Covered/Secured with Dry Gauze & Roll Gauze, Secured with Tape -Aquacel Extra 1 #7 right medial sinclair -Ulcer Cleansing Soap and Water -Foul Odor after Cleansing No -Other Dressing bactroban/ aqaucel Ex -Primary Dressing Covered/Secured with Dry Gauze & Roll Gauze, Secured with Tape #6 right lateral sinclair -Ulcer Cleansing Soap and Water -Foul Odor after Cleansing No -Other Dressing bactroban/ aquacel Ex -Primary Dressing Covered/Secured with Dry Gauze & Roll Gauze, Secured with Tape Treatment Response Procedure Tolerated Well Pain Scale: 0-10 Numeric Is Patient Pain Free? Yes WC - Visit Discharge Discharge Condition Stable Ambulatory Status Ambulatory, Wheelchair Transportation [facility] Orders Sent Yes Additional Wound Wound debrided: Right lower extremity (medial) Type of Debridement: Excisional debridement Anesthesia Used: 5% Lidocaine Gel Depth: Down to and including healthy tissue and in the subcutaneous layer Percentage of wound debrided: 100 Instrument Used: 5mm curette Tissue Removed: Slough and devitalized tissue Severity: Fat Layer Exposed Amount of bleeding with debridement: Mild Bleeding Controlled with: Pressure Patient tolerated procedure: Patient tolerated procedure well Additional Wound Wound debrided: Right foot/medial ankle Type of Debridement: Excisional debridement Anesthesia Used: 5% Lidocaine Gel Depth: Down to and including healthy tissue and in the subcutaneous layer Percentage of wound debrided: 100 Instrument Used: 5mm curette Tissue Removed: Slough and devitalized tissue Severity: Fat Layer Exposed Amount of bleeding with debridement: Mild Bleeding Controlled with: Pressure Patient tolerated procedure: Patient tolerated procedure well Assessment/Plan Assessment/Plan (1) Ulcer of left lower extremity with fat layer exposed: CODE(S): L97.922 - Non-pressure chronic ulcer of unspecified part of left lower leg with fat layer exposed (2) Ulcer of right lower extremity with fat layer exposed: CODE(S): L97.912 - Non-pressure chronic ulcer of unspecified part of right lower leg with fat layer exposed (3) Ulcer of right foot with fat layer exposed: CODE(S): L97.512 - Non-pressure 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 Medial ankle with no significant improvement. Toe brachial index was reduced on recent vascular study, now following up with vascular. Has another appointment shortly. Continue Aquacel daily and mupirocin to all ulcerations. Cover with superabsorbent dressing. Change medial ankle twice daily due to suspected drainage. Continue Tubigrip and Hiro wrap for edema management. Elevate lower extremities when seated and in bed. 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 Protein supplements twice daily. His questions were answered and he was advised to call with any further questions or concerns. Follow-up in 1 week. This note was generated with [employer] dictation software. It may contain incorrect words, spelling, and punctuation that were not noted in checking the note before signing.
[2022-10-20 10:08] VITALS: BP 131/76; PULSE 76; RESP 20; TEMP 36.4
--- NOTE | 2022-10-20 11:23 | PCM.WC.PN ---
"History of Present Illness Date of Service: 10/20/22 Chief Complaint: Bilateral lower extremity ulcers History of Wound: Mr. Boles is an 82-year-old currently residing at [facility] who presents due to nonhealing bilateral lower extremity ulceration. Has been present for some months. Has had some dressing changes done at his facility without any significant improvement. 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 Not very active. Significant bilateral lower extremity edema. He denies chills, fever or feeling of unwell. He states that his appetite is good. Progress of Wound: Stable. Still significant edema and concerns with compression at his facility. Did see his driver/guide and okay given for compression pump. Objective Data Objective Data Vital Signs: Vital Signs Temp Pulse Resp BP O2 Del Method 97.6 F L 76 20 H 131/76 H Room Air 10/20/22 10:08 10/20/22 10:08 10/20/22 10:08 10/20/22 10:08 09/29/22 09:54 Oxygen Delivery Method Room Air Charges/Coding Procedures Integumentary 111xxx-113xx: 28101 Jaye subq tissue 20 sq cm/< Add On Codes: 67305 Jaye subq tissue add-on (x1 additional square centimeter debrided, please refer to clinical note.) Physical Exam Const alert, oriented x3 and no apparent distress General Appearance: cooperative, comfortable and well kempt HEENT normocephalic and head/scalp atraumatic Eyes EOMs intact bilaterally General Eye: normal appearance of both eyes Neck full ROM General: normal visual inspection Resp normal respiratory effort Effort and Inspection: able to speak in complete sentences Extremity General Extremity: edema Skin Wounds: wounds noted Neuro oriented x3, CN's II-XII intact bilaterally, moves all extremities and no focal motor deficits Psych mental status grossly normal, thought process normal, cooperative and affect normal Debridement Note Debridement Note Wound debrided: Right lower extremity lateral cluster Type of Debridement: Excisional debridement Anesthesia Used: 5% Lidocaine Gel Depth: Down to and including healthy tissue and in the subcutaneous layer Percentage of wound debrided: 100 Severity: Fat Layer Exposed Amount of bleeding with debridement: Mild Bleeding Controlled with: Pressure Patient tolerated procedure: Patient tolerated procedure well Post-Debridement Measurements and Additional Note: Post-Debridement Measurements/Treatment WC - Nurse 1 - General Ulcer Assessment Start: 09/29/22 09:53 Freq: Status: Active Protocol: WC.LOWEXT Activity Type Activity Date Activity User E-sign Co-sign Detail Recorded Client Recorded Date Recorded By Document 09/29/22 09:54 BMF [id number] 09/29/22 10:07 BMF Document 10/06/22 09:10 ML [id number] 10/06/22 09:27 ML Document 10/20/22 10:08 DL [id number] 10/20/22 10:28 DL 09/29/22 10/06/22 10/20/22 09:54 09:10 10:08 WC - Today's Visit Information Type of service Follow-up Visit Follow-up Visit Follow-up Visit (Physician/AQUACULTURE FARMER (Physician/AQUACULTURE FARMER (Physician/AQUACULTURE FARMER ) ) ) Arrival Mode Wheelchair Wheelchair Ambulatory, Wheelchair Transfer Assistance Other None Transfer Assist (Other) 2 ASSIST x1 Patient Identification Verified (Name & Yes Yes Yes ) Patient Requires Transmission-Based No No No Precautions Safety Precautions NA Vital Signs Temperature (97.8 F-99.1 F) 97 F L 96.8 F L 97.6 F L Temperature Source Temporal Temporal Temporal Pulse Rate (60-100) 68 76 Pulse Location Monitor Monitor Respiratory Rate (12-18) 16 20 H Respiratory rate source Observation Oxygen Delivery Method Room Air Blood Pressure (90/60-120/80) 124/63 H 131/76 H Blood Pressure Mean (mm Hg) 83 94 Source Monitor Monitor Position Sitting Sitting Blood Pressure Location Left Arm Right Arm History Since Last Visit- (Skip if this is Patient's initial visit) Have you changed medications since your No No No last visit? Any new allergies or adverse reactions No No No Had a fall/change in ADL's that may No No increase risk of falls Signs or symptoms of abuse and/or No No No neglect since last visit Have you been in the hospital since your No No No last visit? Has dressing in place as prescribed Yes Yes Yes Has compression in place as prescribed Yes N/A Yes Has offloadiing in place as prescribed N/A N/A N/A Experienced any changes in pain level or No No management Left Footwear Regular Shoe Regular Shoe Regular Shoe Right Footwear Regular Shoe Regular Shoe Regular Shoe Pain Scale: 0-10 Numeric Is Patient Pain Free? Yes Yes Yes WC - Nurse 1 - General Ulcer Measurement Start: 09/29/22 09:53 Freq: Status: Active Protocol: Activity Type Activity Date Activity User E-sign Co-sign Detail Recorded Client Recorded Date Recorded By Document 09/29/22 09:54 BMF [id number] 09/29/22 10:07 BMF Document 10/06/22 09:10 ML [id number] 10/06/22 09:27 ML Document 10/20/22 10:08 DL [id number] 10/20/22 10:28 DL 09/29/22 10/06/22 10/20/22 09:54 09:10 10:08 Wound Center Nurse 1 #2 R Med Ankle -Combined with other wound No -Current Size (cm) - Length 3.2 0 -Current Size (cm) - Width 0.8 0 -Current Size (cm) - Depth 0.1 0 -Total Square Cm 2.56 0 -Date of Last Picture (Recall this 09/29/22 field) -Photo Taken Yes -Epithelialization None Present -Tunneling No -Undermining/Tunneling No -Circular Undermining No -Exudate Amt Small -Exudate Type Serous -Wound Margin Distinct, Outline Attached -Granulation Amt None Present (0 %) -Slough/Fibrin Yes -Necrosis Amt Large (67-100%) -Necrotic Tissue Type Adherent Slough -Texture ([place]-wound Skin Appearance) Assessed, Scarring -Moisture ([place]-wound Skin Appearance) Assessed,Dry/ Scaly -Color ([place]-wound Skin Appearance) Assessed -Temperature ([place]-wound Skin No Abnormality Appearance) (Pt Warm) -Tenderness on Palpation ([place]-wound No No Skin Appearance) -Ulcer Cleansing Rinsed/ Irrigated with Saline -Foul Odor after Cleansing No -Anesthetic Used 5% Lidocaine Gel #8- RLE/ANKLE -Combined with other wound No -Current Size (cm) - Length 1 4 0.1 -Current Size (cm) - Width 0.5 3.0 0.1 -Current Size (cm) - Depth 0.1 0.1 0.1 -Total Square Cm 0.5 12.0 0.01 -Date of Last Picture (Recall this 09/29/22 field) -Photo Taken Yes -Epithelialization None Present Medium 34-66% -Tunneling No -Undermining/Tunneling No -Circular Undermining No -Change in Wound Grade/Stage No -Exudate Amt Small Medium -Exudate Type Serosanguineous Sanguineous Serosanguineous -Wound Margin Distinct, Distinct, Distinct, Outline Outline Outline Attached Attached Attached -Granulation Amt Large (67-100%) None Present (0 %) -Granulation Quality Red -Slough/Fibrin No -Necrosis Amt None Present (0 Small (1-33%) %) -Necrotic Tissue Type Adherent Slough -Texture ([place]-wound Skin Appearance) Assessed, Not Assessed Assessed Scarring -Moisture ([place]-wound Skin Appearance) Assessed Assessed Assessed -Color ([place]-wound Skin Appearance) Assessed Assessed Assessed -Temperature ([place]-wound Skin No Abnormality No Abnormality No Abnormality Appearance) (Pt Warm) (Pt Warm) (Pt Warm) -Tenderness on Palpation ([place]-wound No No No Skin Appearance) -Ulcer Cleansing Rinsed/ Soap and Water Soap and Water Irrigated with Saline -Foul Odor after Cleansing No No No -Anesthetic Used 5% Lidocaine 5% Lidocaine 5% Lidocaine Gel Gel Gel #7 right medial sinclair -Combined with other wound No -Current Size (cm) - Length 3.2 1.9 1.7 -Current Size (cm) - Width 3.8 1 0.7 -Current Size (cm) - Depth 0.1 0.2 0.2 -Total Square Cm 12.16 1.9 1.19 -Date of Last Picture (Recall this 09/29/22 field) -Photo Taken Yes -Epithelialization None Present Medium 34-66% -Tunneling No -Undermining/Tunneling No -Circular Undermining No -Exudate Amt Medium Medium -Exudate Type Serosanguineous Sanguineous Serosanguineous -Wound Margin Distinct, Distinct, Distinct, Outline Outline Outline Attached Attached Attached -Granulation Amt Medium (34-66%) Medium (34-66%) -Granulation Quality Red -Slough/Fibrin Yes Yes -Necrosis Amt Medium (34-66%) Medium (34-66%) Medium (34-66%) -Necrotic Tissue Type Adherent Slough Adherent Slough Adherent Slough -Texture ([place]-wound Skin Appearance) Assessed, Assessed Assessed Fluctuance, Scarring -Moisture ([place]-wound Skin Appearance) Assessed,Dry/ Assessed Assessed Scaly -Color ([place]-wound Skin Appearance) Assessed Assessed Assessed -Temperature ([place]-wound Skin No Abnormality No Abnormality Appearance) (Pt Warm) (Pt Warm) -Tenderness on Palpation ([place]-wound No No No Skin Appearance) -Ulcer Cleansing Rinsed/ Soap and Water Soap and Water Irrigated with Saline -Foul Odor after Cleansing No No No -Anesthetic Used 5% Lidocaine 5% Lidocaine 5% Lidocaine Gel Gel Gel #6 right lateral sinclair -Combined with other wound No -Current Size (cm) - Length 6.9 0.2 6 -Current Size (cm) - Width 2.5 6.2 1.7 -Current Size (cm) - Depth 0.2 0.2 0.2 -Total Square Cm 17.25 1.24 10.2 -Date of Last Picture (Recall this 09/29/22 field) -Photo Taken Yes -Epithelialization None Present -Tunneling No -Undermining/Tunneling No -Circular Undermining No -Exudate Amt Medium Medium Medium -Exudate Type Serosanguineous Serosanguineous Serosanguineous -Wound Margin Distinct, Distinct, Distinct, Outline Outline Outline Attached Attached Attached -Granulation Amt Large (67-100%) None Present (0 %) -Granulation Quality Red -Slough/Fibrin Yes Yes -Necrosis Amt Small (1-33%) Small (1-33%) -Necrotic Tissue Type Adherent Slough Adherent Slough Adherent Slough -Texture ([place]-wound Skin Appearance) Assessed, Assessed Assessed Scarring -Moisture ([place]-wound Skin Appearance) Assessed,Dry/ Assessed Assessed Scaly -Color ([place]-wound Skin Appearance) Assessed Assessed Assessed -Temperature ([place]-wound Skin No Abnormality No Abnormality No Abnormality Appearance) (Pt Warm) (Pt Warm) (Pt Warm) -Tenderness on Palpation ([place]-wound No No No Skin Appearance) -Ulcer Cleansing Rinsed/ Soap and Water Soap and Water Irrigated with Saline -Foul Odor after Cleansing No No -Anesthetic Used 5% Lidocaine 5% Lidocaine 5% Lidocaine Gel Gel Gel Lower Limb Edema Present Yes Right Calf (cm) 48.2 40.3 50.5 Right Ankle (cm) 32.3 32.2 32.5 Left Calf (cm) 41.5 40.3 44 Left Ankle (cm) 30.3 31.7 32.3 WC - Nurse 2 - General Ulcer CM Notes Start: 09/29/22 09:53 Freq: Status: Active Protocol: Activity Type Activity Date Activity User E-sign Co-sign Detail Recorded Client Recorded Date Recorded By Document 09/29/22 10:19 MW [id number] 09/29/22 10:25 MW Document 10/06/22 09:45 MW [id number] 10/06/22 09:54 MW Document 10/20/22 10:36 ML [id number] 10/20/22 10:47 ML 09/29/22 10/06/22 10/20/22 10:19 09:45 10:36 Wound Center Nurse 2 #2 R Med Ankle -Time 10:20 -Correct Patient Yes -Correct Side, Site, Position Yes -Correct Procedure Yes -Procedure Performed Yes -Type of Procedure Debridement -Clinical Debridement Subcutaneous -Tissue Removed Subcutaneous -Tunneling No -Undermining/Tunneling No -Circular Undermining No -Wound/Ulcer Outcome Not Healed -Ulcer Cleansing Rinsed/ Irrigated with Saline -Foul Odor after Cleansing No -Bioengineered Tissue No -Bleeding Controlled with Pressure -Treatment Response Procedure Tolerated Well -Offloading No -Debridement - Subq, 1st 20sq cm No #8- RLE/ANKLE -Time 10:19 09:46 10:37 -Correct Patient Yes Yes Yes -Correct Side, Site, Position Yes Yes Yes -Correct Procedure Yes Yes Yes -Procedure Performed Yes Yes Yes -Type of Procedure Debridement Debridement Debridement -Clinical Debridement Subcutaneous Subcutaneous Subcutaneous -Tissue Removed Subcutaneous Subcutaneous Subcutaneous -Post Debridement (cm) - Length 3.5 4.0 3.0 -Post Debridement (cm) - Width 4.0 5.0 5.0 -Post Debridement (cm) - Depth 0.1 0.1 0.1 -Total Square (Post) (cm) 14.00 20.00 15.00 -Area of Debridement (cm) - Length 3.5 4.0 3.0 -Area of Debridement (cm) - Width 4.0 5.0 5.0 -Total Square (Area) (cm) 14.00 20.00 15.00 -Tunneling No No No -Undermining/Tunneling No No No -Circular Undermining No No No -Wound/Ulcer Outcome Not Healed Not Healed Not Healed -Ulcer Cleansing Rinsed/ Rinsed/ Rinsed/ Irrigated with Irrigated with Irrigated with Saline Saline Saline -Foul Odor after Cleansing No No No -Bioengineered Tissue No No No -Bleeding Controlled with Pressure Pressure Pressure -Treatment Response Procedure Procedure Procedure Tolerated Well Tolerated Well Tolerated Well -Offloading No No No -Debridement - Subq, 1st 20sq cm Yes Yes Yes -Debridement, SubQ, ea addt'l 20sq cm 1 1 1 or part thereof #7 right medial sinclair -Time 10:19 09:46 10:37 -Correct Patient Yes Yes Yes -Correct Side, Site, Position Yes Yes Yes -Correct Procedure Yes Yes Yes -Procedure Performed Yes Yes Yes -Type of Procedure Debridement Debridement Debridement -Clinical Debridement Subcutaneous Subcutaneous Subcutaneous -Tissue Removed Subcutaneous Subcutaneous Subcutaneous -Post Debridement (cm) - Length 2.4 2.2 2.0 -Post Debridement (cm) - Width 0.9 0.9 1.0 -Post Debridement (cm) - Depth 0.2 0.2 0.2 -Total Square (Post) (cm) 2.16 1.98 2.00 -Area of Debridement (cm) - Length 2.4 2.2 2.0 -Area of Debridement (cm) - Width 0.9 0.9 1.0 -Total Square (Area) (cm) 2.16 1.98 2.00 -Tunneling No No No -Undermining/Tunneling No No No -Circular Undermining No No No -Wound/Ulcer Outcome Not Healed Not Healed Not Healed -Ulcer Cleansing Rinsed/ Rinsed/ Rinsed/ Irrigated with Irrigated with Irrigated with Saline Saline Saline -Foul Odor after Cleansing No No No -Bioengineered Tissue No No No -Bleeding Controlled with Pressure Pressure Pressure -Treatment Response Procedure Procedure Procedure Tolerated Well Tolerated Well Tolerated Well -Offloading No No No -Debridement - Subq, 1st 20sq cm No No No #6 right lateral sinclair -Time 10:20 09:46 10:37 -Correct Patient Yes Yes Yes -Correct Side, Site, Position Yes Yes Yes -Correct Procedure Yes Yes Yes -Procedure Performed Yes Yes Yes -Type of Procedure Debridement Debridement Debridement -Clinical Debridement Subcutaneous Subcutaneous Subcutaneous -Tissue Removed Subcutaneous Subcutaneous Subcutaneous -Post Debridement (cm) - Length 6.6 6.5 6.2 -Post Debridement (cm) - Width 1.7 1.6 1.5 -Post Debridement (cm) - Depth 0.2 0.2 0.2 -Total Square (Post) (cm) 11.22 10.40 9.30 -Area of Debridement (cm) - Length 6.6 6.5 6.2 -Area of Debridement (cm) - Width 1.7 1.6 1.5 -Total Square (Area) (cm) 11.22 10.40 9.30 -Tunneling No No No -Undermining/Tunneling No No No -Circular Undermining No No No -Wound/Ulcer Outcome Not Healed Not Healed Not Healed -Ulcer Cleansing Rinsed/ Rinsed/ Irrigated with Irrigated with Saline Saline -Foul Odor after Cleansing No No -Bioengineered Tissue No No -Bleeding Controlled with Pressure Pressure Pressure -Treatment Response Procedure Procedure Procedure Tolerated Well Tolerated Well Tolerated Well -Offloading No No No -Debridement - Subq, 1st 20sq cm No No No Pain Scale: 0-10 Numeric Is Patient Pain Free? Yes Yes Yes WC - Nurse 3 - General Ulcer D/C NN Start: 09/29/22 09:53 Freq: Status: Active Protocol: Activity Type Activity Date Activity User E-sign Co-sign Detail Recorded Client Recorded Date Recorded By Document 09/29/22 11:25 DL [id number] 09/29/22 11:29 DL Document 10/06/22 10:24 DL [id number] 10/06/22 10:30 DL 09/29/22 10/06/22 11:25 10:24 Wound Care Center Nurse 3 #2 R Med Ankle -Ulcer Cleansing Soap and Water -Foul Odor after Cleansing No -Other Dressing bactroban/ aquacel Ex -Primary Dressing Covered/Secured with Dry Gauze & Roll Gauze, Secured with Tape #8- RLE/ANKLE -Ulcer Cleansing Soap and Water Rinsed/ Irrigated with Saline -Foul Odor after Cleansing No No -Primary Dressing Applied Aquacel Extra Fibracol Plus 4x4,Optilok 6. 5x10 -Other Dressing bactroban bactroban -Primary Dressing Covered/Secured with Dry Gauze & Dry Gauze & Roll Gauze, Roll Gauze, Secured with Secured with Tape Tape -Aquacel Extra 1 -Fibracol Plus 4x4 1 -Optilok 6.5x10 1 #7 right medial sinclair -Ulcer Cleansing Soap and Water Rinsed/ Irrigated with Saline -Foul Odor after Cleansing No No -Primary Dressing Applied Optilok 6.5x10 -Other Dressing bactroban/ fibracol, aqaucel Ex bactroban -Primary Dressing Covered/Secured with Dry Gauze & Dry Gauze & Roll Gauze, Roll Gauze, Secured with Secured with Tape Tape -Optilok 6.5x10 1 #6 right lateral sinclair -Ulcer Cleansing Soap and Water Rinsed/ Irrigated with Saline -Foul Odor after Cleansing No No -Primary Dressing Applied Optilok 6.5x10 -Other Dressing bactroban/ bactroban/ aquacel Ex fibracol -Primary Dressing Covered/Secured with Dry Gauze & Dry Gauze & Roll Gauze, Roll Gauze, Secured with Secured with Tape Tape -Optilok 6.5x10 1 radha -Compression Wrap Hiro Wrap -Tubular Bandage Single Layer -Size of Tubigrip Used Size E -Size E ($) 1 Treatment Response Procedure Procedure Tolerated Well Tolerated Well Pain Scale: 0-10 Numeric Is Patient Pain Free? Yes Yes WC - Visit Discharge Discharge Condition Stable Stable Ambulatory Status Ambulatory, Walker Wheelchair Transportation Private Auto ECF trans Facility Type [facility] Super[facility] Care Facility Facility Orders Sent Yes Yes Additional Wound Wound debrided: Right lower extremity (medial) Type of Debridement: Excisional debridement Anesthesia Used: 5% Lidocaine Gel Depth: Down to and including healthy tissue and in the subcutaneous layer Percentage of wound debrided: 100 Instrument Used: 5mm curette Tissue Removed: Slough and devitalized tissue Severity: Fat Layer Exposed Amount of bleeding with debridement: Mild Bleeding Controlled with: Pressure Patient tolerated procedure: Patient tolerated procedure well Additional Wound Wound debrided: Right foot/medial ankle Type of Debridement: Excisional debridement Anesthesia Used: 5% Lidocaine Gel Depth: Down to and including healthy tissue and in the subcutaneous layer Percentage of wound debrided: 100 Instrument Used: 5mm curette Tissue Removed: Slough and devitalized tissue Severity: Fat Layer Exposed Amount of bleeding with debridement: Mild Bleeding Controlled with: Pressure Patient tolerated procedure: Patient tolerated procedure well Assessment/Plan Assessment/Plan (1) Ulcer of left lower extremity with fat layer exposed: CODE(S): L97.922 - Non-pressure chronic ulcer of unspecified part of left lower leg with fat layer exposed (2) Ulcer of right lower extremity with fat layer exposed: CODE(S): L97.912 - Non-pressure chronic ulcer of unspecified part of right lower leg with fat layer exposed (3) Ulcer of right foot with fat layer exposed: CODE(S): L97.512 - Non-pressure 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 Stable. No new concerns at this time. Now approved by cardiology for a lymphedema pump, prescription sent. We will start at 40 mmHg, 30 minutes twice a day. Continue Aquacel daily and mupirocin to all ulcerations. Cover with superabsorbent dressing. Change medial ankle twice daily due to suspected drainage. Double layer Tubigrip for edema management. Elevate lower extremities when seated and in bed. Protein supplements twice daily. His questions were answered and he was advised to call with any further questions or concerns. Follow-up in 1 week. This note was generated with [employer] dictation software. It may contain incorrect words, spelling, and punctuation that were not noted in checking the note before signing."
== END 2022-10-25 23:59 | disposition home or self-care (01) ==
LOC: WC 10:15
PROVIDERS: PCP Family Medicine; Visit Provider Internal Medicine
DX: I87.2 Venous insufficiency (chronic) (peripheral) (principal); L97.812 Non-pressure chronic ulcer of other part of right lower leg with fat layer exposed; L97.512 Non-pressure chronic ulcer of other part of right foot with fat layer exposed; R60.0 Localized edema; R73.03 Prediabetes
CPT/HCPCS: 11042; 11045

== ENCOUNTER 2022-11-02 19:56 | Emergency (ER) | payer MEDICARE, MEDICAID, SELFPAY ==
[2022-11-02 19:56] VITALS: BP 139/64; PULSE 77; RESP 16; TEMP 36.6; O2SAT 100
--- NOTE | 2022-11-02 20:28 | EDS_ITS ---
HPI HPI - GI History of Present Illness Chief Complaint: Abd Pain Informant: patient Abdominal Pain/Flank Pain Onset: Days Context: Gradual Onset Timing: Continuous Quality: - (Pressure) Location: - (Rectum) Worsened by: Nothing Relieved by: Nothing Nausea/Vomiting/Emesis GI Symptom: Negative for Nausea or Vomiting Diarrhea/Melena/Hematochezia GI Symptom: Negative for Diarrhea, Melena or Hematochezia Associated Symptoms Associated Symptoms: Positive for Frequency; Negative for Dysuria or Hematuria Narrative Narrative: Patient presents with abdominal pain and constipation that has been getting worse over the past 3 to 4 days. Patient states he has not had a bowel movement last week. Patient states he feels like he has pressure in his rectal area. Patient states it has been constant. Patient states it is worse with certain movements. Patient denies any nausea or vomiting. Patient admits to some urinary frequency but denies any dysuria or hematuria. Patient is concerned that he may have a bowel obstruction. [facility] Medical History Abnormality of gait Atherosclerotic heart disease of [place] coronary artery without angina pectoris Bilateral edema of lower extremity Bilateral hearing loss Blind right eye Borderline type 2 diabetes mellitus BPH (benign prostatic hyperplasia) Chronic ulcer of right foot with fat layer exposed History of non-ST elevation myocardial infarction (NSTEMI) (11/12/18) Hyperlipidemia Lymphedema Osteoarthritis of lumbar spine Physical debility PSA elevation Renal cyst Ulcer of left lower extremity with fat layer exposed Ulcer of right foot with fat layer exposed Ulcer of right lower extremity with fat layer exposed Venous insufficiency Venous insufficiency of both lower extremities Home Medications aspirin 81 mg tablet,delayed release 81 mg PO DAILY@0800 11/13/18 [Rx Last Taken 02/26/20] carbidopa 25 mg-levodopa 100 mg disintegrating tablet 1 ea PO TID tremors 02/23/20 [History Last Taken 02/26/20] furosemide 20 mg tablet 40 mg PO DAILY water pill 05/04/21 [History Last Taken Unknown] polyethylene glycol 3350 17 gram oral powder packet 17 g PO DAILY PRN Constipation 05/04/21 [History Last Taken Unknown] potassium chloride 20 mEq tablet,extended release(part/cryst) See Rx Instructions .Route .COMPLEX health maintenance 05/04/21 [History Last Taken Un known] atorvastatin 40 mg tablet 80 mg PO QHS 08/07/21 [History Last Taken Unknown] clopidogrel 75 mg tablet (Plavix) 75 mg PO QHS 08/07/21 [History Last Taken Unknown] Milk of Magnesia 30 ml PO/SL DAILY PRN Constipation 11/07/21 [History Last Taken Unknown] bisacodyl 10 mg rectal suppository 10 mg MS DAILY PRN Constipation 11/07/21 [History Last Taken Unknown] glycerin (adult) (Fleet Glycerin (Adult) rectal suppository) 1 supp MS DAILY PRN Constipation 11/07/21 [History Last Taken Unknown] guaifenesin 50 mg/5 mL oral liquid 1 mg PO Q4H PRN Cough 11/07/21 [History Last Taken Unknown] senna-docusate sodium tablet 1 tab PO DAILY PRN Constipation 11/07/21 [History Last Taken Unknown] Allergy/AdvReac Type Severity Reaction Status Date / Time lemon Allergy Intermediate blisters Verified 11/02/22 20:00 on hands [place] Allergy Intermediate blisters Verified 11/02/22 20:00 on hands strawberry Allergy Intermediate blisters Verified 11/02/22 20:00 on hands Surgical History Stented coronary artery (11/12/18) Social History Smoking Status: Former smoker ROS ROS ED Constitutional Constitutional ED: Denies chills or fever(s) Eyes Eyes: Denies blurry vision or change in vision ENT ENT ED: Denies rhinorrhea or sore throat Cardiovascular Cardiovascular: Denies chest pain or palpitations Respiratory/Chest Respiratory/Chest: Denies cough or dyspnea Gastrointestinal Gastrointestinal: Reports abdominal pain and constipation; Denies nausea or vomiting Genitourinary Genitourinary ED: Reports urinary frequency; Denies dysuria or hematuria Musculoskeletal Musculoskeletal: Denies back pain or neck pain Integumentary Denies abscess or rash Neurologic Neurologic: Denies headache(s) or weakness Allergic/Immunologic Allergic/Immunologic ED: Denies mouth swelling or urticaria EXAM Physical Exam Const Vital Signs: 11/02/22 19:56 11/02/22 21:42 Temperature 98 F Temperature Source Temporal Pulse Rate 77 62 Respiratory Rate 16 15 Blood Pressure 139/64 H 116/60 Blood Pressure Mean 89 78 Pulse Ox 100 99 Oxygen Delivery Method Room Air Room Air Positive well nourished and well developed General Appearance ED: well developed HEENT Reports moist mucous membranes Neck supple and no JVD Resp normal respiratory effort and clear to auscultation bilaterally Cardio regular rate, regular rhythm and no murmurs GI normal to inspection, nondistended, normoactive bowel sounds GI Narrative: There is mild diffuse tenderness. There is no rebound or guarding noted. There are no masses palpated. Auscultation: hyperactive bowel sounds Palpation: soft Extremity normal to inspection General Extremety ED: Negative for edema or tenderness General Extremity: Negative for edema Neuro oriented x3, CN's II-XII intact bilaterally, moves all extremities and no sensory deficits noted Sensorium / Orientation: alert Motor Exam: strength 5/5 throughout Psych mental status grossly normal Skin no rashes or lesions noted MDM MDM MDM Narrative Medical decision making narrative: Torrential diagnosis includes bowel obstruction, constipation, dehydration, gastroparesis, and electrolyte abnormality. CBC will be obtained to assess for leukocytosis and anemia. Basic metabolic profile will be obtained to assess for dehydration, electrolyte abnormality, and renal function. Acute abdominal x- rays will be obtained to assess for ileus, bowel obstruction, and constipation. History & Record Review Additional record(s) reviewed:: Prior labs Lab Data Attestation: I reviewed the patient's lab results. Lab results narrative: CBC was reviewed. There is a mild anemia with a hemoglobin of 11.6 hematocrit 37.2. This is stable compared to previous results. Basic metabolic profile was reviewed and was essentially within normal limits. Labs: Laboratory Results - last 24 hr 11/02/22 11/02/22 20:45 20:45 WBC 5.8 RBC 4.47 L Hgb 11.6 L Hct 37.2 L MCV 83.2 MCH 26.0 L MCHC 31.2 L RDW Std Deviation 48.4 H RDW Coeff of Donnie 15.9 H Plt Count 227 MPV 9.6 Immature Gran % (Auto) 0.200 Neut % (Auto) 55.4 Lymph % (Auto) 22.9 [place] % (Auto) 9.4 Eos % (Auto) 11.4 H Baso % (Auto) 0.7 Absolute Neuts (auto) 3.2 Absolute Lymphs (auto) 1.32 Nucleated RBC % 0 Sodium 142 Potassium 4.1 Chloride 109 H Carbon Dioxide 32.0 Anion Gap 1 L BUN 24 H Creatinine 1.03 Est GFR (MDRD) Af Amer 89 Est GFR (MDRD) Non-Af 74 BUN/Creatinine Ratio 23.3 H Glucose 106 Calcium 8.8 Radiography Diagnostic Testing: Clinical Impression(s) from Imaging Studies Acute Abdomen Series 11/02/22 21:25 IMPRESSION: 1. Distended colon with increased rectal feces consistent with constipation. 2. No acute cardiopulmonary disease. Electronically Signed: Ryan Espinal DO at 21:53 EST Reading Location ID and State: [address] [place] [address] Tel [phone], Service support , Acute abdominal x-rays were obtained. There are 7 views. On my independent interpretation, there is no perforation or obstruction. There is a moderate amount of fecal material throughout the colon. There is no acute cardiopulmonary process. Radiologist also interpreted the x-rays and agrees. Treatment and Re-Evaluation :: Patient was advised of his findings. Patient was given a soapsuds enema here. Patient was instructed to take [id number] laxatives as needed. Patient was instructed to follow-up with his primary care physician in 5 to 7 days. Patient understood and was agreeable with the plan. All questions were answered. Discharge Plan Triage Chief Complaint: Abd Pain ED Provider: Eliazar Gonzales Dx/Rx/DC Orders Clinical Impression: Constipation, Lymphedema, Abdominal pain Instructions: ED Constipation (Adult) Prescriptions: No Action aspirin 81 MG tablet 81 mg PO DAILY@0800 0RF carbidopa-levodopa 1 EACH tablet,disintegrating 1 ea PO TID potassium chloride 20 mEq tablet,ER particles/crystals See Rx Instructions .ROUTE .COMPLEX Label Comments: Take 2 tablets by mouth every morning AND 1 tablet every afternoon. Rx Instructions: 40meq orally each am and 20 mEq orally afternoon furosemide 20 mg tablet 40 mg PO DAILY Label Comments: Take 1 tablet by mouth twice daily. polyethylene glycol 3350 17 gram Powder In Packet 17 g PO DAILY PRN (Reason: Constipation) atorvastatin 40 mg tablet 80 mg PO QHS clopidogrel [Plavix] 75 mg tablet 75 mg PO QHS senna-docusate sodium Tablet 1 tab PO DAILY PRN (Reason: Constipation) guaifenesin 50 mg/5 mL Liquid 1 mg PO Q4H PRN (Reason: Cough) Milk of Magnesia 30 ml PO/SL DAILY PRN (Reason: Constipation) glycerin (adult) [Fleet Glycerin (Adult)] Suppository 1 supp MS DAILY PRN (Reason: Constipation) bisacodyl 10 mg Suppository 10 mg MS DAILY PRN (Reason: Constipation) Primary Care Provider: Pablito Brower Referrals: Pablito Brower MD [Primary Care Provider] - 3-5 Days Disposition Disposition: Home, Self Care
[2022-11-02 20:58] LABS: Absolute Lymphocyte Count 1.32 X10^3/uL (0.83-4.51); Absolute Neutrophil Count 3.2 X10^3/uL (2.0-7.7); Basophil# 0.04 X10^3/uL; Basophil% 0.7 % (0-1); Eosinophil# 0.66 X10^3/uL; Eosinophils% 11.4 % (0-5); Hematocrit 37.2 % (40-54); Hemoglobin 11.6 g/dL (13.0-16.5); Lymphocyte # 1.32 X10^3/ul (0.83-4.51); Lymphocyte % 22.9 % (19-41); Mean Corp Hgb Conc 31.2 g/dL (32-36); Mean Corpuscular Volume 83.2 fL (80-94); Mean Platelet Vol. 9.6 fl (6.2-12.0); Monocyte# 0.54 X10^3/uL; Monocyte% 9.4 % (0-10); NRBC Flagged by Analyzer 0 % (0-5); Neutrophil % 55.4 % (47-70); Platelet Count 227 K/mm3 (150-450); RBC Distribution Width CV 15.9 % (11.6-14.6); RBC Distribution Width SD 48.4 fl (35.1-43.9); Red Blood Count 4.47 M/mm3 (4.6-6.2); White Blood Count 5.8 K/mm3 (4.4-11.0)
[2022-11-02 21:13] LABS: Anion Gap 1 (5-15); BUN 24 mg/dL (7-18); BUN/Creat Ratio 23.3 RATIO (10-20); Calcium,Total 8.8 mg/dL (8.5-10.1); Chloride 109 mmol/L (98-107); Creatinine, Serum 1.03 mg/dL (0.70-1.30); EST Glomerular Filtration Rate 74 mL/min (>60); Est Glom Filt Rate - Afr Amer 89 mL/min (>60); Glucose 106 mg/dL (74-106); Potassium 4.1 mmol/L (3.5-5.1); Sodium Level 142 mmol/L (136-145)
--- NOTE | 2022-11-02 21:25 | RAD_ITS ---
STUDY: X-RAY - ACUTE ABDOMINAL SERIES REASON FOR EXAM: Male, 82 years old. Abdominal pain and constipation. TECHNIQUE: Single view of the chest. Supine, and erect view(s) of the abdomen were obtained. COMPARISON: CT of the chest, February 09, 2021. CTA of the abdomen, October 14, 2022. Chest, September 21, 2017. FINDINGS: Lungs appear mildly hyperexpanded. There is no acute infiltrate or mass. Normal size heart. Normal mediastinum and judy. Normal visualized pulmonary arteries. There is atherosclerotic calcification of the aortic arch with tortuosity. There is a non-specific bowel gas pattern. There is gaseous distention of the colon without small bowel dilatation. There is increased rectal feces. No free air. The soft tissue structures of the abdomen and pelvis are unremarkable. There are diffuse degenerative changes of the visualized lumbar spine. RAD/Acute Abdomen Inc Chest IMPRESSION: 1. Distended colon with increased rectal feces consistent with constipation. 2. No acute cardiopulmonary disease. Electronically Signed: Ryan Espinal DO at 21:53 EST ,
[2022-11-02 21:42] VITALS: BP 116/60; PULSE 62; RESP 15; O2SAT 99
[2022-11-02 21:45] VITALS: BMI 27.6
--- NOTE | 2022-11-03 00:28 | ED.RN ---
CALLED AND LEFT AUDI ON NURSE VOICEMAIL AT [facility] TO CALL BACK FOR NURSE UPDATE ON PATIENT
[2022-11-03 00:50] VITALS: BP 116/60; PULSE 62; RESP 15; O2SAT 99
== END 2022-11-03 00:50 | disposition home or self-care (01) ==
PROVIDERS: Emergency Provider Emergency Medicine; PCP Family Medicine; Visit Provider Emergency Medicine
DX: K59.00 Constipation, unspecified (principal); I89.0 Lymphedema, not elsewhere classified; R10.9 Unspecified abdominal pain; I25.10 Atherosclerotic heart disease of native coronary artery without angina pectoris; I25.2 Old myocardial infarction; Z95.5 Presence of coronary angioplasty implant and graft; Z87.891 Personal history of nicotine dependence
CPT/HCPCS: 74022; 80048; 85025; 99285; A4216

== ENCOUNTER 2022-11-17 10:30 | Outpatient (RCR) | payer MEDICARE, MEDICAID, SELFPAY ==
[2022-10-26 00:16] VITALS: BP 131/76; PULSE 76; RESP 20; TEMP 36.4
[2022-10-27 09:58] VITALS: BP 133/61; PULSE 79; RESP 16
--- NOTE | 2022-10-27 13:14 | PCM.WC.PN ---
History of Present Illness Date of Service: 10/27/22 Chief Complaint: Bilateral lower extremity ulcers History of Wound: Mr. Boles is an 82-year-old currently residing at [facility] who presents due to nonhealing bilateral lower extremity ulceration. Has been present for some months. Has had some dressing changes done at his facility without any significant improvement. 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 Not very active. Significant bilateral lower extremity edema. He denies chills, fever or feeling of unwell. He states that his appetite is good. Progress of Wound: No acute concerns at this time, yet to get his lymphedema pump. Objective Data Objective Data Vital Signs: Vital Signs Temp Pulse Resp BP O2 Del Method 97.6 F L 79 16 133/61 H Room Air 10/26/22 00:16 10/27/22 09:58 10/27/22 09:58 10/27/22 09:58 10/27/22 09:58 Oxygen Delivery Method Room Air Charges/Coding Procedures Integumentary 111xxx-113xx: [id number] Jaye subq tissue 20 sq cm/< Physical Exam Const alert, oriented x3 and no apparent distress General Appearance: cooperative, comfortable and well kempt HEENT normocephalic and head/scalp atraumatic Eyes EOMs intact bilaterally General Eye: normal appearance of both eyes Neck full ROM General: normal visual inspection Resp normal respiratory effort Effort and Inspection: able to speak in complete sentences Extremity General Extremity: edema Skin Wounds: wounds noted Neuro oriented x3, CN's II-XII intact bilaterally, moves all extremities and no focal motor deficits Psych mental status grossly normal, thought process normal, cooperative and affect normal Debridement Note Debridement Note Wound debrided: Right lower extremity lateral cluster Type of Debridement: Excisional debridement Anesthesia Used: 5% Lidocaine Gel Depth: Down to and including healthy tissue and in the subcutaneous layer Percentage of wound debrided: 100 Severity: Fat Layer Exposed Amount of bleeding with debridement: Mild Bleeding Controlled with: Pressure Patient tolerated procedure: Patient tolerated procedure well Post-Debridement Measurements and Additional Note: Post-Debridement Measurements/Treatment JANAY - Nurse 1 - General Ulcer Assessment Start: 10/27/22 09:58 Freq: Status: Active Protocol: LINDA Activity Type Activity Date Activity User E-sign Co-sign Detail Recorded Client Recorded Date Recorded By Document 10/27/22 09:58 [facility] [id number] 10/27/22 10:17 BM Edit Result 10/27/22 09:58 [facility] (1) [id number] 10/27/22 10:18 BM (1) Pulse Rate (60-100) => 79 Respiratory Rate (12-18) => 16 Blood Pressure (90/60-120/80) => 133/61 H Blood Pressure Mean (mm Hg) => 85 Position => Sitting Blood Pressure Location => Right Arm 10/27/22 09:58 - Today's Visit Information Type of service 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-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 ) Arrival Mode Wheelchair Transfer Assistance Other Transfer Assist (Other) 1 STAND BY Patient Identification Verified (Name & Yes ) Patient Requires Transmission-Based No Precautions Vital Signs Pulse Rate (60-100) 79 Pulse Location Monitor Respiratory Rate (12-18) 16 Respiratory rate source Observation Oxygen Delivery Method Room Air Blood Pressure (90/60-120/80) 133/61 H Blood Pressure Mean (mm Hg) 85 Source Monitor Position Sitting Blood Pressure Location Right Arm History Since Last Visit- (Skip if this is Patient's initial visit) Left Footwear Regular Shoe Right Footwear Regular Shoe Pain Scale: 0-10 Numeric Is Patient Pain Free? Yes - Nurse 1 - General Ulcer Measurement Start: 10/27/22 09:58 Freq: Status: Active Protocol: Activity Type Activity Date Activity User E-sign Co-sign Detail Recorded Client Recorded Date Recorded By Document 10/27/22 09:58 [facility] [id number] 10/27/22 10:17 [facility] 10/27/22 09:58 Wound Center Nurse 1 #8- RLE/ANKLE -Combined with other wound No -Current Size (cm) - Length 0 -Current Size (cm) - Width 0 -Current Size (cm) - Depth 0 -Total Square Cm 0 -Date of Last Picture (Recall this 10/27/22 field) -Photo Taken Yes -Epithelialization Large 67-100% #7 right medial sinclair -Combined with other wound No -Current Size (cm) - Length 0.7 -Current Size (cm) - Width 1.5 -Current Size (cm) - Depth 0.2 -Total Square Cm 1.05 -Date of Last Picture (Recall this 10/27/22 field) -Photo Taken Yes -Epithelialization None Present -Tunneling No -Undermining/Tunneling No -Circular Undermining No -Exudate Amt Medium -Exudate Type Serosanguineous -Wound Margin Distinct, Outline Attached -Granulation Amt Medium (34-66%) -Granulation Quality Pale -Slough/Fibrin Yes -Necrosis Amt Medium (34-66%) -Necrotic Tissue Type Adherent Slough -Texture ([place]-wound Skin Appearance) Assessed, Scarring -Moisture ([place]-wound Skin Appearance) Assessed -Color ([place]-wound Skin Appearance) Assessed -Temperature ([place]-wound Skin No Abnormality Appearance) (Pt Warm) -Tenderness on Palpation ([place]-wound No Skin Appearance) -Ulcer Cleansing Rinsed/ Irrigated with Saline -Foul Odor after Cleansing No -Anesthetic Used 5% Lidocaine Gel #6 right lateral sinclair -Combined with other wound No -Current Size (cm) - Length 5.5 -Current Size (cm) - Width 3 -Current Size (cm) - Depth 0.2 -Total Square Cm 16.5 -Date of Last Picture (Recall this 10/27/22 field) -Photo Taken Yes -Epithelialization None Present -Tunneling No -Undermining/Tunneling No -Circular Undermining No -Exudate Amt Medium -Exudate Type Serosanguineous -Wound Margin Distinct, Outline Attached -Granulation Amt Large (67-100%) -Granulation Quality Red -Slough/Fibrin Yes -Necrosis Amt Small (1-33%) -Necrotic Tissue Type Adherent Slough -Texture ([place]-wound Skin Appearance) Assessed, Scarring -Moisture ([place]-wound Skin Appearance) Assessed,Dry/ Scaly -Color ([place]-wound Skin Appearance) Assessed -Temperature ([place]-wound Skin No Abnormality Appearance) (Pt Warm) -Tenderness on Palpation ([place]-wound No Skin Appearance) -Ulcer Cleansing Rinsed/ Irrigated with Saline -Foul Odor after Cleansing No -Anesthetic Used 5% Lidocaine Gel #2 R Med Ankle -Combined with other wound No -Current Size (cm) - Length 2 -Current Size (cm) - Width 3 -Current Size (cm) - Depth 0.1 -Total Square Cm 6 -Date of Last Picture (Recall this 10/27/22 field) -Photo Taken Yes -Epithelialization None Present -Tunneling No -Undermining/Tunneling No -Circular Undermining No -Exudate Amt Medium -Exudate Type Serous -Wound Margin Distinct, Outline Attached -Granulation Amt None Present (0 %) -Slough/Fibrin Yes -Necrosis Amt Large (67-100%) -Necrotic Tissue Type Adherent Slough -Texture ([place]-wound Skin Appearance) Assessed, Scarring -Moisture ([place]-wound Skin Appearance) Assessed, Maceration,Dry/ Scaly -Color ([place]-wound Skin Appearance) Assessed -Temperature ([place]-wound Skin No Abnormality Appearance) (Pt Warm) -Tenderness on Palpation ([place]-wound No Skin Appearance) -Ulcer Cleansing Rinsed/ Irrigated with Saline -Foul Odor after Cleansing No -Anesthetic Used 5% Lidocaine Gel Lower Limb Edema Present Yes Right Calf (cm) 50.5 Right Ankle (cm) 33.5 Left Calf (cm) 46.6 Left Ankle (cm) 35 WC - Nurse 2 - General Ulcer CM Notes Start: 10/27/22 09:58 Freq: Status: Active Protocol: Activity Type Activity Date Activity User E-sign Co-sign Detail Recorded Client Recorded Date Recorded By Document 10/27/22 10:29 MW [id number] 10/27/22 10:37 MW 10/27/22 10:29 Wound Center Nurse 2 #8- RLE/ANKLE -Time 10:31 -Correct Patient Yes -Correct Side, Site, Position Yes -Correct Procedure Yes -Procedure Performed Yes -Type of Procedure Debridement -Clinical Debridement Subcutaneous -Tissue Removed Subcutaneous -Post Debridement (cm) - Length 3.0 -Post Debridement (cm) - Width 3.0 -Post Debridement (cm) - Depth 0.1 -Total Square (Post) (cm) 9.00 -Area of Debridement (cm) - Length 3.0 -Area of Debridement (cm) - Width 3.0 -Total Square (Area) (cm) 9.00 -Tunneling No -Undermining/Tunneling No -Circular Undermining No -Wound/Ulcer Outcome Not Healed -Ulcer Cleansing Rinsed/ Irrigated with Saline -Foul Odor after Cleansing No -Bioengineered Tissue No -Bleeding Controlled with Pressure -Treatment Response Procedure Tolerated Well -Offloading No -Debridement - Subq, 1st 20sq cm Yes #7 right medial sinclair -Time 10:32 -Correct Patient Yes -Correct Side, Site, Position Yes -Correct Procedure Yes -Procedure Performed Yes -Type of Procedure Debridement -Clinical Debridement Subcutaneous -Tissue Removed Subcutaneous -Post Debridement (cm) - Length 2.0 -Post Debridement (cm) - Width 1.0 -Post Debridement (cm) - Depth 0.2 -Total Square (Post) (cm) 2.00 -Area of Debridement (cm) - Length 2.0 -Area of Debridement (cm) - Width 1.0 -Total Square (Area) (cm) 2.00 -Tunneling No -Undermining/Tunneling No -Circular Undermining No -Wound/Ulcer Outcome Not Healed -Ulcer Cleansing Rinsed/ Irrigated with Saline -Foul Odor after Cleansing No -Bioengineered Tissue No -Bleeding Controlled with Pressure -Treatment Response Procedure Tolerated Well -Offloading No -Debridement - Subq, 20sq cm No #6 right lateral sinclair -Time 10:32 -Correct Patient Yes -Correct Side, Site, Position Yes -Correct Procedure Yes -Procedure Performed Yes -Type of Procedure Debridement -Clinical Debridement Subcutaneous -Tissue Removed Subcutaneous -Post Debridement (cm) - Length 5.8 -Post Debridement (cm) - Width 1.4 -Post Debridement (cm) - Depth 0.2 -Total Square (Post) (cm) 8.12 -Area of Debridement (cm) - Length 5.8 -Area of Debridement (cm) - Width 1.4 -Total Square (Area) (cm) 8.12 -Tunneling No -Undermining/Tunneling No -Circular Undermining No -Wound/Ulcer Outcome Not Healed -Ulcer Cleansing Rinsed/ Irrigated with Saline -Foul Odor after Cleansing No -Bioengineered Tissue No -Bleeding Controlled with Pressure -Treatment Response Procedure Tolerated Well -Offloading No -Debridement - Subq, 20sq cm No #2 R Med Ankle -Time 10:33 -Correct Patient Yes -Correct Side, Site, Position Yes -Correct Procedure Yes -Procedure Performed Yes -Type of Procedure Debridement -Clinical Debridement Subcutaneous -Tissue Removed Subcutaneous -Tunneling No -Undermining/Tunneling No -Circular Undermining No -Wound/Ulcer Outcome Not Healed -Ulcer Cleansing Rinsed/ Irrigated with Saline -Foul Odor after Cleansing No -Bioengineered Tissue No -Bleeding Controlled with Pressure -Treatment Response Procedure Tolerated Well -Offloading No -Debridement - Subq, 1st 20sq cm No Pain Scale: 0-10 Numeric Is Patient Pain Free? Yes WC - Nurse 3 - General Ulcer D/C NN Start: 10/27/22 09:58 Freq: Status: Active Protocol: Activity Type Activity Date Activity User E-sign Co-sign Detail Recorded Client Recorded Date Recorded By Document 10/27/22 11:01 [facility] [id number] 10/27/22 11:03 [facility] 10/27/22 11:01 Wound Care Center Nurse 3 #8- RLE/ANKLE -Ulcer Cleansing Rinsed/ Irrigated with Saline -Foul Odor after Cleansing No -Primary Dressing Applied Aquacel Extra, Optilok 6.5x10, Optilok 8x12 -Other Dressing BACTROBAN -Primary Dressing Covered/Secured with Dry Gauze & Roll Gauze, Secured with Tape -Aquacel Extra 1 -Optilok 6.5x10 1 -Optilok 8x12 1 #7 right medial sinclair -Ulcer Cleansing Rinsed/ Irrigated with Saline -Foul Odor after Cleansing No -Primary Dressing Applied Aquacel Extra, Optilok 6.5x10, Optilok 8x12 -Other Dressing BACTROBAN -Primary Dressing Covered/Secured with Dry Gauze & Roll Gauze, Secured with Tape -Aquacel Extra 0 -Optilok 6.5x10 0 -Optilok 8x12 0 #6 right lateral sinclair -Ulcer Cleansing Rinsed/ Irrigated with Saline -Foul Odor after Cleansing No -Primary Dressing Applied Aquacel Extra, Optilok 6.5x10, Optilok 8x12 -Other Dressing BACTROBAN -Primary Dressing Covered/Secured with Dry Gauze & Roll Gauze, Secured with Tape -Aquacel Extra 0 -Optilok 6.5x10 0 -Optilok 8x12 0 #2 R Med Ankle -Ulcer Cleansing Rinsed/ Irrigated with Saline -Foul Odor after Cleansing No -Primary Dressing Applied Aquacel Extra, Optilok 6.5x10, Optilok 8x12 -Other Dressing BACTROBAN -Aquacel Extra 0 -Optilok 6.5x10 0 -Optilok 8x12 0 Right -Tubular Bandage Double Layer -Size of Tubigrip Used Size F -Size F ($) 2 -Other SENT EXTRA Left -Tubular Bandage Double Layer -Size of Tubigrip Used Size F -Size F ($) 2 -Other SENT EXTRA Treatment Response Procedure Tolerated Well Pain Scale: 0-10 Numeric Is Patient Pain Free? Yes WC - Visit Discharge Discharge Condition Stable Ambulatory Status Wheelchair Transportation [facility] TRAN[facility]ORT Other ASSISTED LIVING Additional Wound Wound debrided: Right lower extremity (medial) Type of Debridement: Excisional debridement Anesthesia Used: 5% Lidocaine Gel Depth: Down to and including healthy tissue and in the subcutaneous layer Percentage of wound debrided: 100 Instrument Used: 5mm curette Tissue Removed: Slough and devitalized tissue Severity: Fat Layer Exposed Amount of bleeding with debridement: Mild Bleeding Controlled with: Pressure Patient tolerated procedure: Patient tolerated procedure well Additional Wound Wound debrided: Right foot/medial ankle Type of Debridement: Excisional debridement Anesthesia Used: 5% Lidocaine Gel Depth: Down to and including healthy tissue and in the subcutaneous layer Percentage of wound debrided: 100 Instrument Used: 5mm curette Tissue Removed: Slough and devitalized tissue Severity: Fat Layer Exposed Amount of bleeding with debridement: Mild Bleeding Controlled with: Pressure Patient tolerated procedure: Patient tolerated procedure well Assessment/Plan Assessment/Plan (1) Ulcer of left lower extremity with fat layer exposed: CODE(S): L97.922 - Non-pressure chronic ulcer of unspecified part of left lower leg with fat layer exposed (2) Ulcer of right lower extremity with fat layer exposed: CODE(S): L97.912 - Non-pressure chronic ulcer of unspecified part of right lower leg with fat layer exposed (3) Ulcer of right foot with fat layer exposed: CODE(S): L97.512 - Non-pressure 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 Stable. No new concerns at this time. Still pending insurance approval for a lymphedema pump. Continue Aquacel daily and mupirocin to all ulcerations. Cover with superabsorbent dressing. Change medial ankle twice daily due to suspected drainage. Double layer Tubigrip for edema management. Elevate lower extremities when seated and in bed. Protein supplements twice daily. His questions were answered and he was advised to call with any further questions or concerns. Follow-up in 1 week. This note was generated with [employer] dictation software. It may contain incorrect words, spelling, and punctuation that were not noted in checking the note before signing.
[2022-11-03 10:31] VITALS: RESP 20; TEMP 36
--- NOTE | 2022-11-03 11:14 | PCM.WC.PN ---
History of Present Illness Date of Service: 11/03/22 Chief Complaint: Bilateral lower extremity ulcers History of Wound: Mr. Boles is an 82-year-old currently residing at [facility] who presents due to nonhealing bilateral lower extremity ulceration. Has been present for some months. Has had some dressing changes done at his facility without any significant improvement. 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 Not very active. Significant bilateral lower extremity edema. He denies chills, fever or feeling of unwell. He states that his appetite is good. Progress of Wound: No acute concerns at this time. Still has not received his lymphedema pump. Objective Data Objective Data Vital Signs: Vital Signs Temp Pulse Resp BP O2 Del Method 96.8 F L 79 20 H 133/61 H Room Air 11/03/22 10:31 10/27/22 09:58 11/03/22 10:31 10/27/22 09:58 10/27/22 09:58 Oxygen Delivery Method Room Air Charges/Coding Procedures Integumentary 111xxx-113xx: [id number] Jaye subq tissue 20 sq cm/< Physical Exam Const alert, oriented x3 and no apparent distress General Appearance: cooperative, comfortable and well kempt HEENT normocephalic and head/scalp atraumatic Eyes EOMs intact bilaterally General Eye: normal appearance of both eyes Neck full ROM General: normal visual inspection Resp normal respiratory effort Effort and Inspection: able to speak in complete sentences Extremity General Extremity: edema Skin Wounds: wounds noted Neuro oriented x3, CN's II-XII intact bilaterally, moves all extremities and no focal motor deficits Psych mental status grossly normal, thought process normal, cooperative and affect normal Debridement Note Debridement Note Wound debrided: Right lower extremity lateral cluster Type of Debridement: Excisional debridement Anesthesia Used: 5% Lidocaine Gel Depth: Down to and including healthy tissue and in the subcutaneous layer Percentage of wound debrided: 100 Severity: Fat Layer Exposed Amount of bleeding with debridement: Mild Bleeding Controlled with: Pressure Patient tolerated procedure: Patient tolerated procedure well Post-Debridement Measurements and Additional Note: Post-Debridement Measurements/Treatment JANAY - Nurse 1 - General Ulcer Assessment Start: 10/27/22 09:58 Freq: Status: Active Protocol: LINDA Activity Type Activity Date Activity User E-sign Co-sign Detail Recorded Client Recorded Date Recorded By Document 10/27/22 09:58 BMF [id number] 10/27/22 10:17 BMF Edit Result 10/27/22 09:58 BMF (1) [id number] 10/27/22 10:18 BMF Document 11/03/22 10:31 DL [id number] 11/03/22 10:39 DL (1) Pulse Rate (60-100) => 79 Respiratory Rate (12-18) => 16 Blood Pressure (90/60-120/80) => 133/61 H Blood Pressure Mean (mm Hg) => 85 Position => Sitting Blood Pressure Location => Right Arm 10/27/22 11/03/22 09:58 10:31 WC - Today's Visit Information Type of service Follow-up Visit Follow-up Visit (Physician/ENHANCED ENVIRONMENTAL OPERATOR (Physician/ENHANCED ENVIRONMENTAL OPERATOR ) ) Arrival Mode Wheelchair Wheelchair Transfer Assistance Other Manual Transfer Assist (Other) 1 STAND BY x2 Patient Identification Verified (Name & Yes Yes ) Patient Requires Transmission-Based No No Precautions Vital Signs Temperature (97.8 F-99.1 F) 96.8 F L Temperature Source Temporal Pulse Rate (60-100) 79 Pulse Location Monitor Respiratory Rate (12-18) 16 20 H Respiratory rate source Observation Observation Oxygen Delivery Method Room Air Blood Pressure (90/60-120/80) 133/61 H Blood Pressure Mean (mm Hg) 85 Source Monitor Position Sitting Blood Pressure Location Right Arm History Since Last Visit- (Skip if this is Patient's initial visit) Have you changed medications since your No last visit? Any new allergies or adverse reactions No Had a fall/change in ADL's that may No increase risk of falls Signs or symptoms of abuse and/or No neglect since last visit Have you been in the hospital since your No last visit? Has dressing in place as prescribed Yes Has compression in place as prescribed Yes Has offloadiing in place as prescribed N/A Experienced any changes in pain level or No management Left Footwear Regular Shoe Regular Shoe Right Footwear Regular Shoe Regular Shoe Pain Scale: 0-10 Numeric Is Patient Pain Free? Yes Yes - Nurse 1 - General Ulcer Measurement Start: 10/27/22 09:58 Freq: Status: Active Protocol: Activity Type Activity Date Activity User E-sign Co-sign Detail Recorded Client Recorded Date Recorded By Document 10/27/22 09:58 BMF [id number] 10/27/22 10:17 BMF Document 11/03/22 10:31 DL [id number] 11/03/22 10:39 DL 10/27/22 11/03/22 09:58 10:31 Wound Center Nurse 1 #2 R Med Ankle -Combined with other wound No -Current Size (cm) - Length 2 -Current Size (cm) - Width 3 -Current Size (cm) - Depth 0.1 -Total Square Cm 6 -Date of Last Picture (Recall this 10/27/22 field) -Photo Taken Yes -Epithelialization None Present -Tunneling No -Undermining/Tunneling No -Circular Undermining No -Exudate Amt Medium -Exudate Type Serous -Wound Margin Distinct, Outline Attached -Granulation Amt None Present (0 %) -Slough/Fibrin Yes -Necrosis Amt Large (67-100%) -Necrotic Tissue Type Adherent Slough -Texture ([place]-wound Skin Appearance) Assessed, Scarring -Moisture ([place]-wound Skin Appearance) Assessed, Maceration,Dry/ Scaly -Color ([place]-wound Skin Appearance) Assessed -Temperature ([place]-wound Skin No Abnormality Appearance) (Pt Warm) -Tenderness on Palpation ([place]-wound No Skin Appearance) -Ulcer Cleansing Rinsed/ Irrigated with Saline -Foul Odor after Cleansing No -Anesthetic Used 5% Lidocaine Gel #8- RLE/ANKLE -Combined with other wound No -Current Size (cm) - Length 0 0.1 -Current Size (cm) - Width 0 0.1 -Current Size (cm) - Depth 0 0.1 -Total Square Cm 0 0.01 -Date of Last Picture (Recall this 10/27/22 field) -Photo Taken Yes No -Epithelialization Large 67-100% -Exudate Amt Medium -Exudate Type Serosanguineous -Wound Margin Indistinct, Non -Visible -Granulation Amt None Present (0 %) -Necrosis Amt Large (67-100%) -Necrotic Tissue Type Adherent Slough -Structure Exposed N/A -Texture ([place]-wound Skin Appearance) Scarring -Moisture ([place]-wound Skin Appearance) Dry/Scaly -Color ([place]-wound Skin Appearance) Hemosiderin Staining -Temperature ([place]-wound Skin No Abnormality Appearance) (Pt Warm) -Tenderness on Palpation ([place]-wound No Skin Appearance) -Ulcer Cleansing Soap and Water -Foul Odor after Cleansing No -Anesthetic Used 5% Lidocaine Gel #7 right medial sinclair -Combined with other wound No -Current Size (cm) - Length 0.7 1.4 -Current Size (cm) - Width 1.5 1.5 -Current Size (cm) - Depth 0.2 0.2 -Total Square Cm 1.05 2.10 -Date of Last Picture (Recall this 10/27/22 field) -Photo Taken Yes No -Epithelialization None Present -Tunneling No -Undermining/Tunneling No -Circular Undermining No -Exudate Amt Medium Medium -Exudate Type Serosanguineous Serosanguineous -Wound Margin Distinct, Distinct, Outline Outline Attached Attached -Granulation Amt Medium (34-66%) Medium (34-66%) -Granulation Quality Pale Wolverine -Slough/Fibrin Yes -Necrosis Amt Medium (34-66%) Medium (34-66%) -Necrotic Tissue Type Adherent Slough Adherent Slough -Structure Exposed N/A -Texture ([place]-wound Skin Appearance) Assessed, Scarring Scarring -Moisture ([place]-wound Skin Appearance) Assessed Dry/Scaly -Color ([place]-wound Skin Appearance) Assessed Hemosiderin Staining -Temperature ([place]-wound Skin No Abnormality No Abnormality Appearance) (Pt Warm) (Pt Warm) -Tenderness on Palpation ([place]-wound No No Skin Appearance) -Ulcer Cleansing Rinsed/ Soap and Water Irrigated with Saline -Foul Odor after Cleansing No No -Anesthetic Used 5% Lidocaine 5% Lidocaine Gel Gel #6 right lateral sinclair -Combined with other wound No -Current Size (cm) - Length 5.5 2.3 -Current Size (cm) - Width 3 1.1 -Current Size (cm) - Depth 0.2 0.1 -Total Square Cm 16.5 2.53 -Date of Last Picture (Recall this 10/27/22 field) -Photo Taken Yes No -Epithelialization None Present -Tunneling No -Undermining/Tunneling No -Circular Undermining No -Exudate Amt Medium Small -Exudate Type Serosanguineous Serosanguineous -Wound Margin Distinct, Distinct, Outline Outline Attached Attached -Granulation Amt Large (67-100%) Medium (34-66%) -Granulation Quality Red [place] -Slough/Fibrin Yes -Necrosis Amt Small (1-33%) Medium (34-66%) -Necrotic Tissue Type Adherent Slough Adherent Slough -Structure Exposed N/A -Texture ([place]-wound Skin Appearance) Assessed, Scarring Scarring -Moisture ([place]-wound Skin Appearance) Assessed,Dry/ Dry/Scaly Scaly -Color ([place]-wound Skin Appearance) Assessed Hemosiderin Staining -Temperature ([place]-wound Skin No Abnormality No Abnormality Appearance) (Pt Warm) (Pt Warm) -Tenderness on Palpation ([place]-wound No No Skin Appearance) -Ulcer Cleansing Rinsed/ Soap and Water Irrigated with Saline -Foul Odor after Cleansing No No -Anesthetic Used 5% Lidocaine 5% Lidocaine Gel Gel Lower Limb Edema Present Yes Right Calf (cm) 50.5 46.5 Right Ankle (cm) 33.5 32.5 Left Calf (cm) 46.6 45.8 Left Ankle (cm) 35 35.6 WC - Nurse 2 - General Ulcer CM Notes Start: 10/27/22 09:58 Freq: Status: Active Protocol: Activity Type Activity Date Activity User E-sign Co-sign Detail Recorded Client Recorded Date Recorded By Document 10/27/22 10:29 MW [id number] 10/27/22 10:37 MW Document 11/03/22 10:48 [id number] 11/03/22 10:54 10/27/22 11/03/22 10:29 10:48 Wound Center Nurse 2 #2 R Med Ankle -Time 10:33 -Correct Patient Yes -Correct Side, Site, Position Yes -Correct Procedure Yes -Procedure Performed Yes -Type of Procedure Debridement -Clinical Debridement Subcutaneous -Tissue Removed Subcutaneous -Tunneling No -Undermining/Tunneling No -Circular Undermining No -Wound/Ulcer Outcome Not Healed -Ulcer Cleansing Rinsed/ Irrigated with Saline -Foul Odor after Cleansing No -Bioengineered Tissue No -Bleeding Controlled with Pressure -Treatment Response Procedure Tolerated Well -Offloading No -Debridement - Subq, 1st 20sq cm No #8- RLE/ANKLE -Time 10:31 10:49 -Correct Patient Yes Yes -Correct Side, Site, Position Yes Yes -Correct Procedure Yes Yes -Procedure Performed Yes Yes -Type of Procedure Debridement Debridement -Clinical Debridement Subcutaneous Subcutaneous -Tissue Removed Subcutaneous Subcutaneous -Post Debridement (cm) - Length 3.0 3.5 -Post Debridement (cm) - Width 3.0 2.5 -Post Debridement (cm) - Depth 0.1 0.1 -Total Square (Post) (cm) 9.00 8.75 -Area of Debridement (cm) - Length 3.0 3.5 -Area of Debridement (cm) - Width 3.0 2.5 -Total Square (Area) (cm) 9.00 8.75 -Tunneling No No -Undermining/Tunneling No No -Circular Undermining No No -Wound/Ulcer Outcome Not Healed Not Healed -Ulcer Cleansing Rinsed/ Rinsed/ Irrigated with Irrigated with Saline Saline -Foul Odor after Cleansing No No -Bioengineered Tissue No No -Bleeding Controlled with Pressure Pressure -Treatment Response Procedure Procedure Tolerated Well Tolerated Well -Offloading No No -Debridement - Subq, 1st 20sq cm Yes No #7 right medial sinclair -Time 10:32 10:49 -Correct Patient Yes Yes -Correct Side, Site, Position Yes Yes -Correct Procedure Yes Yes -Procedure Performed Yes Yes -Type of Procedure Debridement Debridement -Clinical Debridement Subcutaneous Subcutaneous -Tissue Removed Subcutaneous Subcutaneous -Post Debridement (cm) - Length 2.0 1.9 -Post Debridement (cm) - Width 1.0 0.8 -Post Debridement (cm) - Depth 0.2 0.2 -Total Square (Post) (cm) 2.00 1.52 -Area of Debridement (cm) - Length 2.0 1.9 -Area of Debridement (cm) - Width 1.0 0.8 -Total Square (Area) (cm) 2.00 1.52 -Tunneling No No -Undermining/Tunneling No No -Circular Undermining No No -Wound/Ulcer Outcome Not Healed Not Healed -Ulcer Cleansing Rinsed/ Rinsed/ Irrigated with Irrigated with Saline Saline -Foul Odor after Cleansing No No -Bioengineered Tissue No No -Bleeding Controlled with Pressure Pressure -Treatment Response Procedure Procedure Tolerated Well Tolerated Well -Offloading No No -Debridement - Subq, 1st 20sq cm No No #6 right lateral sinclair -Time 10:32 10:49 -Correct Patient Yes Yes -Correct Side, Site, Position Yes Yes -Correct Procedure Yes Yes -Procedure Performed Yes Yes -Type of Procedure Debridement Debridement -Clinical Debridement Subcutaneous Subcutaneous -Tissue Removed Subcutaneous Subcutaneous -Post Debridement (cm) - Length 5.8 2.5 -Post Debridement (cm) - Width 1.4 1.0 -Post Debridement (cm) - Depth 0.2 0.1 -Total Square (Post) (cm) 8.12 2.50 -Area of Debridement (cm) - Length 5.8 2.5 -Area of Debridement (cm) - Width 1.4 1.0 -Total Square (Area) (cm) 8.12 2.50 -Tunneling No No -Undermining/Tunneling No No -Circular Undermining No No -Wound/Ulcer Outcome Not Healed Not Healed -Ulcer Cleansing Rinsed/ Rinsed/ Irrigated with Irrigated with Saline Saline -Foul Odor after Cleansing No No -Bioengineered Tissue No No -Bleeding Controlled with Pressure Pressure -Treatment Response Procedure Procedure Tolerated Well Tolerated Well -Offloading No No -Debridement - Subq, 1st 20sq cm No Yes Pain Scale: 0-10 Numeric Is Patient Pain Free? Yes Yes - Nurse 3 - General Ulcer D/C NN Start: 10/27/22 09:58 Freq: Status: Active Protocol: Activity Type Activity Date Activity User E-sign Co-sign Detail Recorded Client Recorded Date Recorded By Document 10/27/22 11:01 [facility] [id number] 10/27/22 11:03 [facility] Document 11/03/22 11:10 [facility] [id number] 11/03/22 11:12 [facility] 10/27/22 11/03/22 11:01 11:10 Wound Care Center Nurse 3 #2 R Med Ankle -Ulcer Cleansing Rinsed/ Irrigated with Saline -Foul Odor after Cleansing No -Primary Dressing Applied Aquacel Extra, Optilok 6.5x10, Optilok 8x12 -Other Dressing BACTROBAN -Aquacel Extra 0 -Optilok 6.5x10 0 -Optilok 8x12 0 #8- RLE/ANKLE -Ulcer Cleansing Rinsed/ Rinsed/ Irrigated with Irrigated with Saline Saline -Foul Odor after Cleansing No No -Primary Dressing Applied Aquacel Extra, Aquacel Extra, Optilok 6.5x10, Optilok 6.5x10 Optilok 8x12 -Other Dressing BACTROBAN BACTROBAN -Primary Dressing Covered/Secured with Dry Gauze & Dry Gauze & Roll Gauze, Roll Gauze, Secured with Secured with Tape Tape -Aquacel Extra 1 1 -Optilok 6.5x10 1 1 -Optilok 8x12 1 #7 right medial sinclair -Ulcer Cleansing Rinsed/ Rinsed/ Irrigated with Irrigated with Saline Saline -Foul Odor after Cleansing No No -Primary Dressing Applied Aquacel Extra, Aquacel Extra, Optilok 6.5x10, Optilok 8x12 Optilok 8x12 -Other Dressing BACTROBAN BACTROBAN -Primary Dressing Covered/Secured with Dry Gauze & Dry Gauze & Roll Gauze, Roll Gauze, Secured with Secured with Tape Tape -Aquacel Extra 0 0 -Optilok 6.5x10 0 -Optilok 8x12 0 1 #6 right lateral sinclair -Ulcer Cleansing Rinsed/ Rinsed/ Irrigated with Irrigated with Saline Saline -Foul Odor after Cleansing No No -Primary Dressing Applied Aquacel Extra, Aquacel Extra, Optilok 6.5x10, Optilok 8x12 Optilok 8x12 -Other Dressing BACTROBAN BACTROBAN -Primary Dressing Covered/Secured with Dry Gauze & Dry Gauze & Roll Gauze, Roll Gauze, Secured with Secured with Tape Tape -Aquacel Extra 0 0 -Optilok 6.5x10 0 -Optilok 8x12 0 0 Right -Tubular Bandage Double Layer Double Layer -Size of Tubigrip Used Size F Size F -Size F ($) 2 2 -Other SENT EXTRA Left -Tubular Bandage Double Layer Double Layer -Size of Tubigrip Used Size F Size F -Size F ($) 2 2 -Other SENT EXTRA Treatment Response Procedure Procedure Tolerated Well Tolerated Well Pain Scale: 0-10 Numeric Is Patient Pain Free? Yes Yes WC - Visit Discharge Discharge Condition Stable Stable Ambulatory Status Wheelchair Wheelchair Transportation ECF TRANSPORT ECF TRANSPORT Other ASSISTED LIVING ASSISTED LIVING Additional Wound Wound debrided: Right lower extremity (medial) Type of Debridement: Excisional debridement Anesthesia Used: 5% Lidocaine Gel Depth: Down to and including healthy tissue and in the subcutaneous layer Percentage of wound debrided: 100 Instrument Used: 5mm curette Tissue Removed: Slough and devitalized tissue Severity: Fat Layer Exposed Amount of bleeding with debridement: Mild Bleeding Controlled with: Pressure Patient tolerated procedure: Patient tolerated procedure well Additional Wound Wound debrided: Right foot/medial ankle Type of Debridement: Excisional debridement Anesthesia Used: 5% Lidocaine Gel Depth: Down to and including healthy tissue and in the subcutaneous layer Percentage of wound debrided: 100 Instrument Used: 5mm curette Tissue Removed: Slough and devitalized tissue Severity: Fat Layer Exposed Amount of bleeding with debridement: Mild Bleeding Controlled with: Pressure Patient tolerated procedure: Patient tolerated procedure well Assessment/Plan Assessment/Plan (1) Ulcer of left lower extremity with fat layer exposed: CODE(S): L97.922 - Non-pressure chronic ulcer of unspecified part of left lower leg with fat layer exposed (2) Ulcer of right lower extremity with fat layer exposed: CODE(S): L97.912 - Non-pressure chronic ulcer of unspecified part of right lower leg with fat layer exposed (3) Ulcer of right foot with fat layer exposed: CODE(S): L97.512 - Non-pressure 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 Stable. No new concerns at this time. Continues to have significant bilateral lower extremity edema and he is yet to receive his lymphedema pump. Continue Aquacel daily and mupirocin to all ulcerations. Cover with superabsorbent dressing. Change medial ankle twice daily due to drainage. Double layer Tubigrip for edema management. Elevate lower extremities when seated and in bed. Protein supplements twice daily. His questions were answered and he was advised to call with any further questions or concerns. Follow-up in 1 week. This note was generated with [email or web address] software. It may contain incorrect words, spelling, and punctuation that were not noted in checking the note before signing.
[2022-11-10 10:15] VITALS: BP 136/61; PULSE 69; RESP 16; TEMP 36.1
--- NOTE | 2022-11-10 10:43 | PN.PCM_ITS ---
History of Present Illness Date of Service: 11/10/22 Chief Complaint: Bilateral lower extremity ulcers History of Wound: Mr. Boles is an 82-year-old currently residing at [facility] who presents due to nonhealing bilateral lower extremity ulceration. Has been present for some months. Has had some dressing changes done at his facility without any significant improvement. 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 Not very active. Significant bilateral lower extremity edema. He denies chills, fever or feeling of unwell. He states that his appetite is good. Progress of Wound: No acute concerns at this time. Still has not received his lymphedema pump. Chronic history of lymphedema, has been utilizing compression, leg elevation and exercise over the last couple of months with no significant improvement. Objective Data Objective Data Vital Signs: Vital Signs Temp Pulse Resp BP O2 Del Method 97 F L 69 16 136/61 H Room Air 11/10/22 10:15 11/10/22 10:15 11/10/22 10:15 11/10/22 10:15 11/10/22 10:15 Oxygen Delivery Method Room Air Charges/Coding Procedures Integumentary 111xxx-113xx: [id number] Jaye subq tissue 20 sq cm/< Add On Codes: 69656 Jaye subq tissue add-on (x1 additional square centimeter debrided, please refer to clinical note.) Physical Exam Const alert, oriented x3 and no apparent distress General Appearance: cooperative, comfortable and well kempt HEENT normocephalic and head/scalp atraumatic Eyes EOMs intact bilaterally General Eye: normal appearance of both eyes Neck full ROM General: normal visual inspection Resp normal respiratory effort Effort and Inspection: able to speak in complete sentences Extremity General Extremity: edema Skin Wounds: wounds noted Neuro oriented x3, CN's II-XII intact bilaterally, moves all extremities and no focal motor deficits Psych mental status grossly normal, thought process normal, cooperative and affect normal Debridement Note Debridement Note Wound debrided: Right lower extremity lateral cluster Type of Debridement: Excisional debridement Anesthesia Used: 5% Lidocaine Gel Depth: Down to and including healthy tissue and in the subcutaneous layer Percentage of wound debrided: 100 Severity: Fat Layer Exposed Amount of bleeding with debridement: Mild Bleeding Controlled with: Pressure Patient tolerated procedure: Patient tolerated procedure well Post-Debridement Measurements and Additional Note: Post-Debridement Measurements/Treatment WC - Nurse 1 - General Ulcer Assessment Start: 10/27/22 09:58 Freq: Status: Active Protocol: LINDA Activity Type Activity Date Activity User E-sign Co-sign Detail Recorded Client Recorded Date Recorded By Document 10/27/22 09:58 BMF [id number] 10/27/22 10:17 BMF Edit Result 10/27/22 09:58 BMF (1) [id number] 10/27/22 10:18 BMF Document 11/03/22 10:31 DL [id number] 11/03/22 10:39 DL Document 11/10/22 10:15 BMF [id number] 11/10/22 10:22 BMF (1) Pulse Rate (60-100) => 79 Respiratory Rate (12-18) => 16 Blood Pressure (90/60-120/80) => 133/61 H Blood Pressure Mean (mm Hg) => 85 Position => Sitting Blood Pressure Location => Right Arm 10/27/22 11/03/22 11/10/22 09:58 10:31 10:15 WC - Today's Visit Information Type of service Follow-up Visit Follow-up Visit Follow-up Visit (Physician/CRYPTOLOGIC SUPERVISOR (Physician/CRYPTOLOGIC SUPERVISOR (Physician/CRYPTOLOGIC SUPERVISOR ) ) ) Arrival Mode Wheelchair Wheelchair Wheelchair Transfer Assistance Other Manual Other Transfer Assist (Other) 1 STAND BY x2 1 stand by Patient Identification Verified (Name & Yes Yes Yes ) Patient Requires Transmission-Based No No No Precautions Vital Signs Temperature (97.8 F-99.1 F) 96.8 F L 97 F L Temperature Source Temporal Temporal Pulse Rate (60-100) 79 69 Pulse Location Monitor Monitor Respiratory Rate (12-18) 16 20 H 16 Respiratory rate source Observation Observation Observation Oxygen Delivery Method Room Air Room Air Blood Pressure (90/60-120/80) 133/61 H 136/61 H Blood Pressure Mean (mm Hg) 85 86 Source Monitor Monitor Position Sitting Sitting Blood Pressure Location Right Arm Left Forearm History Since Last Visit- (Skip if this is Patient's initial visit) Have you changed medications since your No No last visit? Any new allergies or adverse reactions No No Had a fall/change in ADL's that may No No increase risk of falls Signs or symptoms of abuse and/or No No neglect since last visit Have you been in the hospital since your No No last visit? Has dressing in place as prescribed Yes Yes Has compression in place as prescribed Yes Yes Has offloadiing in place as prescribed N/A N/A Experienced any changes in pain level or No No management Left Footwear Regular Shoe Regular Shoe Regular Shoe Right Footwear Regular Shoe Regular Shoe Regular Shoe Pain Scale: 0-10 Numeric Is Patient Pain Free? Yes Yes Yes WC - Nurse 1 - General Ulcer Measurement Start: 10/27/22 09:58 Freq: Status: Active Protocol: Activity Type Activity Date Activity User E-sign Co-sign Detail Recorded Client Recorded Date Recorded By Document 10/27/22 09:[address] [facility] [id number] 10/27/22 10:17 BMF Document 11/03/22 10:31 DL [id number] 11/03/22 10:39 DL Document 11/10/22 10:[address] [facility] [id number] 11/10/22 10:22 BMF 10/27/22 11/03/22 11/10/22 09:58 10:31 10:15 Wound Center Nurse 1 #2 R Med Ankle -Combined with other wound No -Current Size (cm) - Length 2 -Current Size (cm) - Width 3 -Current Size (cm) - Depth 0.1 -Total Square Cm 6 -Date of Last Picture (Recall this 10/27/22 field) -Photo Taken Yes -Epithelialization None Present -Tunneling No -Undermining/Tunneling No -Circular Undermining No -Exudate Amt Medium -Exudate Type Serous -Wound Margin Distinct, Outline Attached -Granulation Amt None Present (0 %) -Slough/Fibrin Yes -Necrosis Amt Large (67-100%) -Necrotic Tissue Type Adherent Slough -Texture ([place]-wound Skin Appearance) Assessed, Scarring -Moisture ([place]-wound Skin Appearance) Assessed, Maceration,Dry/ Scaly -Color ([place]-wound Skin Appearance) Assessed -Temperature ([place]-wound Skin No Abnormality Appearance) (Pt Warm) -Tenderness on Palpation ([place]-wound No Skin Appearance) -Ulcer Cleansing Rinsed/ Irrigated with Saline -Foul Odor after Cleansing No -Anesthetic Used 5% Lidocaine Gel #8- RLE/ANKLE -Combined with other wound No No -Current Size (cm) - Length 0 0.1 3.8 -Current Size (cm) - Width 0 0.1 3.8 -Current Size (cm) - Depth 0 0.1 0.1 -Total Square Cm 0 0.01 14.44 -Date of Last Picture (Recall this 10/27/22 11/10/22 field) -Photo Taken Yes No Yes -Epithelialization Large 67-100% None Present -Tunneling No -Undermining/Tunneling No -Circular Undermining No -Exudate Amt Medium Medium -Exudate Type Serosanguineous Serous -Wound Margin Indistinct, Non Distinct, -Visible Outline Attached -Granulation Amt None Present (0 None Present (0 %) %) -Slough/Fibrin Yes -Necrosis Amt Large (67-100%) Large (67-100%) -Necrotic Tissue Type Adherent Slough Adherent Slough -Structure Exposed N/A -Texture ([place]-wound Skin Appearance) Scarring Assessed, Scarring -Moisture ([place]-wound Skin Appearance) Dry/Scaly Assessed -Color ([place]-wound Skin Appearance) Hemosiderin Assessed, Staining Hemosiderin Staining -Temperature ([place]-wound Skin No Abnormality No Abnormality Appearance) (Pt Warm) (Pt Warm) -Tenderness on Palpation ([place]-wound No No Skin Appearance) -Ulcer Cleansing Soap and Water Soap and Water -Foul Odor after Cleansing No No -Anesthetic Used 5% Lidocaine 5% Lidocaine Gel Gel #7 right medial sinclair -Combined with other wound No No -Current Size (cm) - Length 0.7 1.4 1.3 -Current Size (cm) - Width 1.5 1.5 1.4 -Current Size (cm) - Depth 0.2 0.2 0.2 -Total Square Cm 1.05 2.10 1.82 -Date of Last Picture (Recall this 10/27/22 11/10/22 field) -Photo Taken Yes No Yes -Epithelialization None Present Small 1-33% -Tunneling No No -Undermining/Tunneling No No -Circular Undermining No No -Exudate Amt Medium Medium Medium -Exudate Type Serosanguineous Serosanguineous Serosanguineous -Wound Margin Distinct, Distinct, Distinct, Outline Outline Outline Attached Attached Attached -Granulation Amt Medium (34-66%) Medium (34-66%) Medium (34-66%) -Granulation Quality Pale [place] Red -Slough/Fibrin Yes Yes -Necrosis Amt Medium (34-66%) Medium (34-66%) Medium (34-66%) -Necrotic Tissue Type Adherent Slough Adherent Slough Adherent Slough -Structure Exposed N/A -Texture ([place]-wound Skin Appearance) Assessed, Scarring Assessed, Scarring Scarring -Moisture ([place]-wound Skin Appearance) Assessed Dry/Scaly Assessed,Dry/ Scaly -Color ([place]-wound Skin Appearance) Assessed Hemosiderin Assessed Staining -Temperature ([place]-wound Skin No Abnormality No Abnormality No Abnormality Appearance) (Pt Warm) (Pt Warm) (Pt Warm) -Tenderness on Palpation ([place]-wound No No No Skin Appearance) -Ulcer Cleansing Rinsed/ Soap and Water Soap and Water Irrigated with Saline -Foul Odor after Cleansing No No No -Anesthetic Used 5% Lidocaine 5% Lidocaine 5% Lidocaine Gel Gel Gel #6 right lateral sinclair -Combined with other wound No No -Current Size (cm) - Length 5.5 2.3 2.1 -Current Size (cm) - Width 3 1.1 1.1 -Current Size (cm) - Depth 0.2 0.1 0.2 -Total Square Cm 16.5 2.53 2.31 -Date of Last Picture (Recall this 10/27/22 11/10/22 field) -Photo Taken Yes No Yes -Epithelialization None Present Small 1-33% -Tunneling No No -Undermining/Tunneling No No -Circular Undermining No No -Exudate Amt Medium Small Medium -Exudate Type Serosanguineous Serosanguineous Serosanguineous -Wound Margin Distinct, Distinct, Distinct, Outline Outline Outline Attached Attached Attached -Granulation Amt Large (67-100%) Medium (34-66%) Medium (34-66%) -Granulation Quality Red [place] Red -Slough/Fibrin Yes Yes -Necrosis Amt Small (1-33%) Medium (34-66%) Medium (34-66%) -Necrotic Tissue Type Adherent Slough Adherent Slough Adherent Slough -Structure Exposed N/A -Texture ([place]-wound Skin Appearance) Assessed, Scarring Assessed, Scarring Scarring -Moisture ([place]-wound Skin Appearance) Assessed,Dry/ Dry/Scaly Assessed,Dry/ Scaly Scaly -Color ([place]-wound Skin Appearance) Assessed Hemosiderin Assessed, Staining Erythema -Temperature ([place]-wound Skin No Abnormality No Abnormality No Abnormality Appearance) (Pt Warm) (Pt Warm) (Pt Warm) -Tenderness on Palpation ([place]-wound No No No Skin Appearance) -Ulcer Cleansing Rinsed/ Soap and Water Soap and Water Irrigated with Saline -Foul Odor after Cleansing No No No -Anesthetic Used 5% Lidocaine 5% Lidocaine 5% Lidocaine Gel Gel Gel Lower Limb Edema Present Yes Yes Right Calf (cm) 50.5 46.5 45.2 Right Ankle (cm) 33.5 32.5 33 Left Calf (cm) 46.6 45.8 40.3 Left Ankle (cm) 35 35.6 35.5 WC - Nurse 2 - General Ulcer CM Notes Start: 10/27/22 09:58 Freq: Status: Active Protocol: Activity Type Activity Date Activity User E-sign Co-sign Detail Recorded Client Recorded Date Recorded By Document 10/27/22 10:29 MW [id number] 10/27/22 10:37 MW Document 11/03/22 10:48 [id number] 11/03/22 10:54 JF Document 11/10/22 10:29 MW [id number] 11/10/22 10:36 MW 10/27/22 11/03/22 11/10/22 10:29 10:48 10:29 Wound Center Nurse 2 #2 R Med Ankle -Time 10:33 -Correct Patient Yes -Correct Side, Site, Position Yes -Correct Procedure Yes -Procedure Performed Yes -Type of Procedure Debridement -Clinical Debridement Subcutaneous -Tissue Removed Subcutaneous -Tunneling No -Undermining/Tunneling No -Circular Undermining No -Wound/Ulcer Outcome Not Healed -Ulcer Cleansing Rinsed/ Irrigated with Saline -Foul Odor after Cleansing No -Bioengineered Tissue No -Bleeding Controlled with Pressure -Treatment Response Procedure Tolerated Well -Offloading No -Debridement - Subq, 1st 20sq cm No #8- RLE/ANKLE -Time 10:31 10:49 10:29 -Correct Patient Yes Yes Yes -Correct Side, Site, Position Yes Yes Yes -Correct Procedure Yes Yes Yes -Procedure Performed Yes Yes Yes -Type of Procedure Debridement Debridement Debridement -Clinical Debridement Subcutaneous Subcutaneous Subcutaneous -Tissue Removed Subcutaneous Subcutaneous Subcutaneous -Post Debridement (cm) - Length 3.0 3.5 3.5 -Post Debridement (cm) - Width 3.0 2.5 4.5 -Post Debridement (cm) - Depth 0.1 0.1 0.1 -Total Square (Post) (cm) 9.00 8.75 15.75 -Area of Debridement (cm) - Length 3.0 3.5 3.5 -Area of Debridement (cm) - Width 3.0 2.5 4.5 -Total Square (Area) (cm) 9.00 8.75 15.75 -Tunneling No No No -Undermining/Tunneling No No No -Circular Undermining No No No -Wound/Ulcer Outcome Not Healed Not Healed Not Healed -Ulcer Cleansing Rinsed/ Rinsed/ Rinsed/ Irrigated with Irrigated with Irrigated with Saline Saline Saline -Foul Odor after Cleansing No No No -Bioengineered Tissue No No No -Bleeding Controlled with Pressure Pressure Pressure -Treatment Response Procedure Procedure Procedure Tolerated Well Tolerated Well Tolerated Well -Offloading No No No -Debridement - Subq, 1st 20sq cm Yes No Yes -Debridement, SubQ, ea addt'l 20sq cm 1 or part thereof #7 right medial sinclair -Time 10:32 10:49 10:30 -Correct Patient Yes Yes Yes -Correct Side, Site, Position Yes Yes Yes -Correct Procedure Yes Yes Yes -Procedure Performed Yes Yes Yes -Type of Procedure Debridement Debridement Debridement -Clinical Debridement Subcutaneous Subcutaneous Subcutaneous -Tissue Removed Subcutaneous Subcutaneous Subcutaneous -Post Debridement (cm) - Length 2.0 1.9 2.0 -Post Debridement (cm) - Width 1.0 0.8 0.9 -Post Debridement (cm) - Depth 0.2 0.2 0.2 -Total Square (Post) (cm) 2.00 1.52 1.80 -Area of Debridement (cm) - Length 2.0 1.9 2.0 -Area of Debridement (cm) - Width 1.0 0.8 0.9 -Total Square (Area) (cm) 2.00 1.52 1.80 -Tunneling No No No -Undermining/Tunneling No No No -Circular Undermining No No No -Wound/Ulcer Outcome Not Healed Not Healed Not Healed -Ulcer Cleansing Rinsed/ Rinsed/ Rinsed/ Irrigated with Irrigated with Irrigated with Saline Saline Saline -Foul Odor after Cleansing No No No -Bioengineered Tissue No No No -Bleeding Controlled with Pressure Pressure Pressure -Treatment Response Procedure Procedure Procedure Tolerated Well Tolerated Well Tolerated Well -Offloading No No No -Debridement - Subq, 1st 20sq cm No No No #6 right lateral sinclair -Time 10:32 10:49 10:31 -Correct Patient Yes Yes Yes -Correct Side, Site, Position Yes Yes Yes -Correct Procedure Yes Yes Yes -Procedure Performed Yes Yes Yes -Type of Procedure Debridement Debridement Debridement -Clinical Debridement Subcutaneous Subcutaneous Subcutaneous -Tissue Removed Subcutaneous Subcutaneous Subcutaneous -Post Debridement (cm) - Length 5.8 2.5 2.2 -Post Debridement (cm) - Width 1.4 1.0 1.2 -Post Debridement (cm) - Depth 0.2 0.1 0.2 -Total Square (Post) (cm) 8.12 2.50 2.64 -Area of Debridement (cm) - Length 5.8 2.5 2.2 -Area of Debridement (cm) - Width 1.4 1.0 1.2 -Total Square (Area) (cm) 8.12 2.50 2.64 -Tunneling No No No -Undermining/Tunneling No No No -Circular Undermining No No No -Wound/Ulcer Outcome Not Healed Not Healed Not Healed -Ulcer Cleansing Rinsed/ Rinsed/ Rinsed/ Irrigated with Irrigated with Irrigated with Saline Saline Saline -Foul Odor after Cleansing No No No -Bioengineered Tissue No No No -Bleeding Controlled with Pressure Pressure Pressure -Treatment Response Procedure Procedure Procedure Tolerated Well Tolerated Well Tolerated Well -Offloading No No No -Debridement - Subq, 1st 20sq cm No Yes No Pain Scale: 0-10 Numeric Is Patient Pain Free? Yes Yes Yes WC - Nurse 3 - General Ulcer D/C NN Start: 10/27/22 09:58 Freq: Status: Active Protocol: Activity Type Activity Date Activity User E-sign Co-sign Detail Recorded Client Recorded Date Recorded By Document 10/27/22 11:[address] [facility] [id number] 10/27/22 11:03 BM Document 11/03/22 11:[address] [facility] [id number] 11/03/22 11:12 BM 10/27/22 11/03/22 11:01 11:10 Wound Care Center Nurse 3 #2 R Med Ankle -Ulcer Cleansing Rinsed/ Irrigated with Saline -Foul Odor after Cleansing No -Primary Dressing Applied Aquacel Extra, Optilok 6.5x10, Optilok 8x12 -Other Dressing BACTROBAN -Aquacel Extra 0 -Optilok 6.5x10 0 -Optilok 8x12 0 #8- RLE/ANKLE -Ulcer Cleansing Rinsed/ Rinsed/ Irrigated with Irrigated with Saline Saline -Foul Odor after Cleansing No No -Primary Dressing Applied Aquacel Extra, Aquacel Extra, Optilok 6.5x10, Optilok 6.5x10 Optilok 8x12 -Other Dressing BACTROBAN BACTROBAN -Primary Dressing Covered/Secured with Dry Gauze & Dry Gauze & Roll Gauze, Roll Gauze, Secured with Secured with Tape Tape -Aquacel Extra 1 1 -Optilok 6.5x10 1 1 -Optilok 8x12 1 #7 right medial sinclair -Ulcer Cleansing Rinsed/ Rinsed/ Irrigated with Irrigated with Saline Saline -Foul Odor after Cleansing No No -Primary Dressing Applied Aquacel Extra, Aquacel Extra, Optilok 6.5x10, Optilok 8x12 Optilok 8x12 -Other Dressing BACTROBAN BACTROBAN -Primary Dressing Covered/Secured with Dry Gauze & Dry Gauze & Roll Gauze, Roll Gauze, Secured with Secured with Tape Tape -Aquacel Extra 0 0 -Optilok 6.5x10 0 -Optilok 8x12 0 1 #6 right lateral sinclair -Ulcer Cleansing Rinsed/ Rinsed/ Irrigated with Irrigated with Saline Saline -Foul Odor after Cleansing No No -Primary Dressing Applied Aquacel Extra, Aquacel Extra, Optilok 6.5x10, Optilok 8x12 Optilok 8x12 -Other Dressing BACTROBAN BACTROBAN -Primary Dressing Covered/Secured with Dry Gauze & Dry Gauze & Roll Gauze, Roll Gauze, Secured with Secured with Tape Tape -Aquacel Extra 0 0 -Optilok 6.5x10 0 -Optilok 8x12 0 0 Right -Tubular Bandage Double Layer Double Layer -Size of Tubigrip Used Size F Size F -Size F ($) 2 2 -Other SENT EXTRA Left -Tubular Bandage Double Layer Double Layer -Size of Tubigrip Used Size F Size F -Size F ($) 2 2 -Other SENT EXTRA Treatment Response Procedure Procedure Tolerated Well Tolerated Well Pain Scale: 0-10 Numeric Is Patient Pain Free? Yes Yes WC - Visit Discharge Discharge Condition Stable Stable Ambulatory Status Wheelchair Wheelchair Transportation ECF TRANSPORT ECF TRANSPORT Other ASSISTED LIVING ASSISTED LIVING Additional Wound Wound debrided: Right lower extremity (medial) Type of Debridement: Excisional debridement Anesthesia Used: 5% Lidocaine Gel Depth: Down to and including healthy tissue and in the subcutaneous layer Percentage of wound debrided: 100 Instrument Used: 5mm curette Tissue Removed: Slough and devitalized tissue Severity: Fat Layer Exposed Amount of bleeding with debridement: Mild Bleeding Controlled with: Pressure Patient tolerated procedure: Patient tolerated procedure well Additional Wound Wound debrided: Right foot/medial ankle Type of Debridement: Excisional debridement Anesthesia Used: 5% Lidocaine Gel Depth: Down to and including healthy tissue and in the subcutaneous layer Percentage of wound debrided: 100 Instrument Used: 5mm curette Tissue Removed: Slough and devitalized tissue Severity: Fat Layer Exposed Amount of bleeding with debridement: Mild Bleeding Controlled with: Pressure Patient tolerated procedure: Patient tolerated procedure well Assessment/Plan Assessment/Plan (1) Ulcer of left lower extremity with fat layer exposed: CODE(S): L97.922 - Non-pressure chronic ulcer of unspecified part of left lower leg with fat layer exposed (2) Ulcer of right lower extremity with fat layer exposed: CODE(S): L97.912 - Non-pressure chronic ulcer of unspecified part of right lower leg with fat layer exposed (3) Ulcer of right foot with fat layer exposed: CODE(S): L97.512 - Non-pressure chronic ulcer of other part of right foot with fat layer exposed (4) Venous insufficiency of both lower extremities: CODE(S): I87.2 - Venous insufficiency (chronic) (peripheral) (5) Borderline type 2 diabetes mellitus: CODE(S): R73.03 - Prediabetes (6) Lymphedema: CODE(S): I89.0 - Lymphedema, not elsewhere classified PLAN: Plan Debridement done as documented above, procedure was well-tolerated. Right medial foot/ankle with some worsening noted. Continues to have significant bilateral lower extremity edema and he is yet to receive his lymphedema pump. Chronic history of lymphedema. Has been utilizing compression, leg elevation and exercise without significant improvement. We had been awaiting cardiology clearance for lymphedema pump which he finally got in September. Continue Aquacel daily to all ulcers and cover with superabsorbent dressing. Mupirocin only to leg ulcers. Change medial ankle twice daily due to drainage. Double layer Tubigrip for edema management. Elevate lower extremities when seated and in bed. Protein supplements twice daily. His questions were answered and he was advised to call with any further questions or concerns. Follow-up in 1 week. This note was generated with [employer] dictation software. It may contain incorrect words, spelling, and punctuation that were not noted in checking the note before signing.
[2022-11-17 09:58] VITALS: PULSE 73; RESP 16; TEMP 35.8
--- NOTE | 2022-11-17 10:45 | PN.PCM_ITS ---
History of Present Illness Date of Service: 11/17/22 Chief Complaint: Bilateral lower extremity ulcers History of Wound: Mr. Boles is an 82-year-old currently residing at [facility] who presents due to nonhealing bilateral lower extremity ulceration. Has been present for some months. Has had some dressing changes done at his facility without any significant improvement. 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 Not very active. Significant bilateral lower extremity edema. He denies chills, fever or feeling of unwell. He states that his appetite is good. Progress of Wound: No acute concerns at this time. Still has not received his lymphedema pump. Chronic history of lymphedema, has been utilizing compression, leg elevation and exercise over the last couple of months with no significant improvement. Objective Data Objective Data Vital Signs: Vital Signs Temp Pulse Resp BP O2 Del Method 96.5 F L 73 16 136/61 H Room Air 11/17/22 09:58 11/17/22 09:58 11/17/22 09:58 11/10/22 10:15 11/10/22 10:15 Oxygen Delivery Method Room Air Charges/Coding Procedures Integumentary 111xxx-113xx: [id number] Jaye subq tissue 20 sq cm/< Add On Codes: 42004 Jaye subq tissue add-on (x 1. Additional square centimeter de brided, please refer to clinical note.) Physical Exam Const alert, oriented x3 and no apparent distress General Appearance: cooperative, comfortable and well kempt HEENT normocephalic and head/scalp atraumatic Eyes EOMs intact bilaterally General Eye: normal appearance of both eyes Neck full ROM General: normal visual inspection Resp normal respiratory effort Effort and Inspection: able to speak in complete sentences Extremity General Extremity: edema Skin Wounds: wounds noted Neuro oriented x3, CN's II-XII intact bilaterally, moves all extremities and no focal motor deficits Psych mental status grossly normal, thought process normal, cooperative and affect normal Debridement Note Debridement Note Wound debrided: Right lower extremity lateral cluster Type of Debridement: Excisional debridement Anesthesia Used: 5% Lidocaine Gel Depth: Down to and including healthy tissue and in the subcutaneous layer Percentage of wound debrided: 100 Severity: Fat Layer Exposed Amount of bleeding with debridement: Mild Bleeding Controlled with: Pressure Patient tolerated procedure: Patient tolerated procedure well Post-Debridement Measurements and Additional Note: Post-Debridement Measurements/Treatment - Nurse 1 - General Ulcer Assessment Start: 10/27/22 09:58 Freq: Status: Active Protocol: LINDA Activity Type Activity Date Activity User E-sign Co-sign Detail Recorded Client Recorded Date Recorded By Document 10/27/22 09:58 BMF [id number] 10/27/22 10:17 BMF Edit Result 10/27/22 09:58 BMF (1) [id number] 10/27/22 10:18 BMF Document 11/03/22 10:31 DL [id number] 11/03/22 10:39 DL Document 11/10/22 10:15 BMF [id number] 11/10/22 10:22 BMF Document 11/17/22 09:58 DL [id number] 11/17/22 10:21 DL (1) Pulse Rate (60-100) => 79 Respiratory Rate (12-18) => 16 Blood Pressure (90/60-120/80) => 133/61 H Blood Pressure Mean (mm Hg) => 85 Position => Sitting Blood Pressure Location => Right Arm 10/27/22 11/03/22 11/10/22 09:58 10:31 10:15 - Today's Visit Information Type of service Follow-up Visit Follow-up Visit Follow-up Visit (Physician/SUPERVISOR HOME ENERGY CONSULTANT (Physician/SUPERVISOR HOME ENERGY CONSULTANT (Physician/SUPERVISOR HOME ENERGY CONSULTANT ) ) ) Arrival Mode Wheelchair Wheelchair Wheelchair Transfer Assistance Other Manual Other Transfer Assist (Other) 1 STAND BY x2 1 stand by Patient Identification Verified (Name & Yes Yes Yes ) Patient Requires Transmission-Based No No No Precautions Safety Precautions Vital Signs Temperature (97.8 F-99.1 F) 96.8 F L 97 F L Temperature Source Temporal Temporal Pulse Rate (60-100) 79 69 Pulse Location Monitor Monitor Respiratory Rate (12-18) 16 20 H 16 Respiratory rate source Observation Observation Observation Oxygen Delivery Method Room Air Room Air Blood Pressure (90/60-120/80) 133/61 H 136/61 H Blood Pressure Mean (mm Hg) 85 86 Source Monitor Monitor Position Sitting Sitting Blood Pressure Location Right Arm Left Forearm History Since Last Visit- (Skip if this is Patient's initial visit) Have you changed medications since your No No last visit? Any new allergies or adverse reactions No No Had a fall/change in ADL's that may No No increase risk of falls Signs or symptoms of abuse and/or No No neglect since last visit Have you been in the hospital since your No No last visit? Has dressing in place as prescribed Yes Yes Has compression in place as prescribed Yes Yes Has offloadiing in place as prescribed N/A N/A Experienced any changes in pain level or No No management Left Footwear Regular Shoe Regular Shoe Regular Shoe Right Footwear Regular Shoe Regular Shoe Regular Shoe Pain Scale: 0-10 Numeric Is Patient Pain Free? Yes Yes Yes 11/17/22 09:58 - Today's Visit Information Type of service Follow-up Visit (Physician/SUPERVISOR HOME ENERGY CONSULTANT ) Arrival Mode Wheelchair Transfer Assistance Manual Transfer Assist (Other) Patient Identification Verified (Name & Yes ) Patient Requires Transmission-Based No Precautions Safety Precautions NA Vital Signs Temperature (97.8 F-99.1 F) 96.5 F L Temperature Source Temporal Pulse Rate (60-100) 73 Pulse Location Monitor Respiratory Rate (12-18) 16 Respiratory rate source Observation Oxygen Delivery Method Blood Pressure (90/60-120/80) Blood Pressure Mean (mm Hg) Source Position Blood Pressure Location History Since Last Visit- (Skip if this is Patient's initial visit) Have you changed medications since your last visit? Any new allergies or adverse reactions Had a fall/change in ADL's that may increase risk of falls Signs or symptoms of abuse and/or neglect since last visit Have you been in the hospital since your last visit? Has dressing in place as prescribed Has compression in place as prescribed Has offloadiing in place as prescribed Experienced any changes in pain level or management Left Footwear Right Footwear Pain Scale: 0-10 Numeric Is Patient Pain Free? Yes - Nurse 1 - General Ulcer Measurement Start: 10/27/22 09:58 Freq: Status: Active Protocol: Activity Type Activity Date Activity User E-sign Co-sign Detail Recorded Client Recorded Date Recorded By Document 10/27/22 09:58 [facility] [id number] 10/27/22 10:17 BMF Document 11/03/22 10:31 DL [id number] 11/03/22 10:39 DL Document 11/10/22 10:15 [facility] [id number] 11/10/22 10:22 BMF Document 11/17/22 09:58 DL [id number] 11/17/22 10:21 DL 10/27/22 0311/10/22 09:58 10:31 10:15 Wound Center Nurse 1 #2 R Med Ankle -Combined with other wound No -Current Size (cm) - Length 2 -Current Size (cm) - Width 3 -Current Size (cm) - Depth 0.1 -Total Square Cm 6 -Date of Last Picture (Recall this 10/27/22 field) -Photo Taken Yes -Epithelialization None Present -Tunneling No -Undermining/Tunneling No -Circular Undermining No -Exudate Amt Medium -Exudate Type Serous -Wound Margin Distinct, Outline Attached -Granulation Amt None Present (0 %) -Slough/Fibrin Yes -Necrosis Amt Large (67-100%) -Necrotic Tissue Type Adherent Slough -Texture ([place]-wound Skin Appearance) Assessed, Scarring -Moisture ([place]-wound Skin Appearance) Assessed, Maceration,Dry/ Scaly -Color ([place]-wound Skin Appearance) Assessed -Temperature ([place]-wound Skin No Abnormality Appearance) (Pt Warm) -Tenderness on Palpation ([place]-wound No Skin Appearance) -Ulcer Cleansing Rinsed/ Irrigated with Saline -Foul Odor after Cleansing No -Anesthetic Used 5% Lidocaine Gel #8- RLE/ANKLE -Combined with other wound No No -Current Size (cm) - Length 0 0.1 3.8 -Current Size (cm) - Width 0 0.1 3.8 -Current Size (cm) - Depth 0 0.1 0.1 -Total Square Cm 0 0.01 14.44 -Date of Last Picture (Recall this 10/27/22 11/10/22 field) -Photo Taken Yes No Yes -Epithelialization Large 67-100% None Present -Tunneling No -Undermining/Tunneling No -Circular Undermining No -Exudate Amt Medium Medium -Exudate Type Serosanguineous Serous -Wound Margin Indistinct, Non Distinct, -Visible Outline Attached -Granulation Amt None Present (0 None Present (0 %) %) -Granulation Quality -Slough/Fibrin Yes -Necrosis Amt Large (67-100%) Large (67-100%) -Necrotic Tissue Type Adherent Slough Adherent Slough -Structure Exposed N/A -Texture ([place]-wound Skin Appearance) Scarring Assessed, Scarring -Moisture ([place]-wound Skin Appearance) Dry/Scaly Assessed -Color ([place]-wound Skin Appearance) Hemosiderin Assessed, Staining Hemosiderin Staining -Temperature ([place]-wound Skin No Abnormality No Abnormality Appearance) (Pt Warm) (Pt Warm) -Tenderness on Palpation ([place]-wound No No Skin Appearance) -Ulcer Cleansing Soap and Water Soap and Water -Foul Odor after Cleansing No No -Anesthetic Used 5% Lidocaine 5% Lidocaine Gel Gel #7 right medial sinclair -Combined with other wound No No -Current Size (cm) - Length 0.7 1.4 1.3 -Current Size (cm) - Width 1.5 1.5 1.4 -Current Size (cm) - Depth 0.2 0.2 0.2 -Total Square Cm 1.05 2.10 1.82 -Date of Last Picture (Recall this 10/27/22 11/10/22 field) -Photo Taken Yes No Yes -Epithelialization None Present Small 1-33% -Tunneling No No -Undermining/Tunneling No No -Circular Undermining No No -Exudate Amt Medium Medium Medium -Exudate Type Serosanguineous Serosanguineous Serosanguineous -Wound Margin Distinct, Distinct, Distinct, Outline Outline Outline Attached Attached Attached -Granulation Amt Medium (34-66%) Medium (34-66%) Medium (34-66%) -Granulation Quality Pale [place] Red -Slough/Fibrin Yes Yes -Necrosis Amt Medium (34-66%) Medium (34-66%) Medium (34-66%) -Necrotic Tissue Type Adherent Slough Adherent Slough Adherent Slough -Structure Exposed N/A -Texture ([place]-wound Skin Appearance) Assessed, Scarring Assessed, Scarring Scarring -Moisture ([place]-wound Skin Appearance) Assessed Dry/Scaly Assessed,Dry/ Scaly -Color ([place]-wound Skin Appearance) Assessed Hemosiderin Assessed Staining -Temperature ([place]-wound Skin No Abnormality No Abnormality No Abnormality Appearance) (Pt Warm) (Pt Warm) (Pt Warm) -Tenderness on Palpation ([place]-wound No No No Skin Appearance) -Ulcer Cleansing Rinsed/ Soap and Water Soap and Water Irrigated with Saline -Foul Odor after Cleansing No No No -Anesthetic Used 5% Lidocaine 5% Lidocaine 5% Lidocaine Gel Gel Gel #6 right lateral sinclair -Combined with other wound No No -Current Size (cm) - Length 5.5 2.3 2.1 -Current Size (cm) - Width 3 1.1 1.1 -Current Size (cm) - Depth 0.2 0.1 0.2 -Total Square Cm 16.5 2.53 2.31 -Date of Last Picture (Recall this 10/27/22 11/10/22 field) -Photo Taken Yes No Yes -Epithelialization None Present Small 1-33% -Tunneling No No -Undermining/Tunneling No No -Circular Undermining No No -Exudate Amt Medium Small Medium -Exudate Type Serosanguineous Serosanguineous Serosanguineous -Wound Margin Distinct, Distinct, Distinct, Outline Outline Outline Attached Attached Attached -Granulation Amt Large (67-100%) Medium (34-66%) Medium (34-66%) -Granulation Quality Red [place] Red -Slough/Fibrin Yes Yes -Necrosis Amt Small (1-33%) Medium (34-66%) Medium (34-66%) -Necrotic Tissue Type Adherent Slough Adherent Slough Adherent Slough -Structure Exposed N/A -Texture ([place]-wound Skin Appearance) Assessed, Scarring Assessed, Scarring Scarring -Moisture ([place]-wound Skin Appearance) Assessed,Dry/ Dry/Scaly Assessed,Dry/ Scaly Scaly -Color ([place]-wound Skin Appearance) Assessed Hemosiderin Assessed, Staining Erythema -Temperature ([place]-wound Skin No Abnormality No Abnormality No Abnormality Appearance) (Pt Warm) (Pt Warm) (Pt Warm) -Tenderness on Palpation ([place]-wound No No No Skin Appearance) -Ulcer Cleansing Rinsed/ Soap and Water Soap and Water Irrigated with Saline -Foul Odor after Cleansing No No No -Anesthetic Used 5% Lidocaine 5% Lidocaine 5% Lidocaine Gel Gel Gel Lower Limb Edema Present Yes Yes Right Calf (cm) 50.5 46.5 45.2 Right Ankle (cm) 33.5 32.5 33 Left Calf (cm) 46.6 45.8 40.3 Left Ankle (cm) 35 35.6 35.5 11/17/22 09:58 Wound Center Nurse 1 #2 R Med Ankle -Combined with other wound -Current Size (cm) - Length -Current Size (cm) - Width -Current Size (cm) - Depth -Total Square Cm -Date of Last Picture (Recall this field) -Photo Taken -Epithelialization -Tunneling -Undermining/Tunneling -Circular Undermining -Exudate Amt -Exudate Type -Wound Margin -Granulation Amt -Slough/Fibrin -Necrosis Amt -Necrotic Tissue Type -Texture ([place]-wound Skin Appearance) -Moisture ([place]-wound Skin Appearance) -Color ([place]-wound Skin Appearance) -Temperature ([place]-wound Skin Appearance) -Tenderness on Palpation ([place]-wound Skin Appearance) -Ulcer Cleansing -Foul Odor after Cleansing -Anesthetic Used #8- RLE/ANKLE -Combined with other wound -Current Size (cm) - Length 3.4 -Current Size (cm) - Width 5 -Current Size (cm) - Depth 0.1 -Total Square Cm 17.0 -Date of Last Picture (Recall this field) -Photo Taken -Epithelialization -Tunneling -Undermining/Tunneling -Circular Undermining -Exudate Amt Small -Exudate Type Serosanguineous -Wound Margin Distinct, Outline Attached -Granulation Amt -Granulation Quality [place] -Slough/Fibrin -Necrosis Amt None Present (0 %) -Necrotic Tissue Type Adherent Slough -Structure Exposed -Texture ([place]-wound Skin Appearance) Assessed -Moisture ([place]-wound Skin Appearance) Maceration -Color ([place]-wound Skin Appearance) Assessed -Temperature ([place]-wound Skin No Abnormality Appearance) (Pt Warm) -Tenderness on Palpation ([place]-wound Skin Appearance) -Ulcer Cleansing -Foul Odor after Cleansing -Anesthetic Used 5% Lidocaine Gel #7 right medial sinclair -Combined with other wound -Current Size (cm) - Length 1.5 -Current Size (cm) - Width 1.5 -Current Size (cm) - Depth 0.2 -Total Square Cm 2.25 -Date of Last Picture (Recall this field) -Photo Taken -Epithelialization Medium 34-66% -Tunneling -Undermining/Tunneling -Circular Undermining -Exudate Amt Small -Exudate Type Serous -Wound Margin Distinct, Outline Attached -Granulation Amt Small (1-33%) -Granulation Quality [place] -Slough/Fibrin Yes -Necrosis Amt Small (1-33%) -Necrotic Tissue Type Adherent Slough -Structure Exposed -Texture ([place]-wound Skin Appearance) Assessed -Moisture ([place]-wound Skin Appearance) Assessed -Color ([place]-wound Skin Appearance) Assessed -Temperature ([place]-wound Skin No Abnormality Appearance) (Pt Warm) -Tenderness on Palpation ([place]-wound No Skin Appearance) -Ulcer Cleansing Soap and Water -Foul Odor after Cleansing No -Anesthetic Used 5% Lidocaine Gel #6 right lateral sinclair -Combined with other wound -Current Size (cm) - Length 2.2 -Current Size (cm) - Width 1.1 -Current Size (cm) - Depth 0.2 -Total Square Cm 2.42 -Date of Last Picture (Recall this field) -Photo Taken -Epithelialization Small 1-33% -Tunneling -Undermining/Tunneling -Circular Undermining -Exudate Amt Small -Exudate Type Serosanguineous -Wound Margin Distinct, Outline Attached -Granulation Amt Small (1-33%) -Granulation Quality [place] -Slough/Fibrin -Necrosis Amt Medium (34-66%) -Necrotic Tissue Type Adherent Slough -Structure Exposed -Texture ([place]-wound Skin Appearance) Assessed -Moisture ([place]-wound Skin Appearance) Assessed, Maceration -Color ([place]-wound Skin Appearance) Assessed -Temperature ([place]-wound Skin No Abnormality Appearance) (Pt Warm) -Tenderness on Palpation ([place]-wound No Skin Appearance) -Ulcer Cleansing Soap and Water -Foul Odor after Cleansing No -Anesthetic Used 5% Lidocaine Gel Lower Limb Edema Present Right Calf (cm) 48.5 Right Ankle (cm) 35 Left Calf (cm) 42 Left Ankle (cm) 36.5 WC - Nurse 2 - General Ulcer CM Notes Start: 10/27/22 09:58 Freq: Status: Active Protocol: Activity Type Activity Date Activity User E-sign Co-sign Detail Recorded Client Recorded Date Recorded By Document 10/27/22 10:29 MW [id number] 10/27/22 10:37 MW Document 11/03/22 10:48 [id number] 11/03/22 10:54 JF Document 11/10/22 10:29 MW [id number] 11/10/22 10:36 MW Document 11/17/22 10:37 MW [id number] 11/17/22 10:42 MW 10/27/22 11/03/22 03 10:29 10:48 10:29 Wound Center Nurse 2 #2 R Med Ankle -Time 10:33 -Correct Patient Yes -Correct Side, Site, Position Yes -Correct Procedure Yes -Procedure Performed Yes -Type of Procedure Debridement -Clinical Debridement Subcutaneous -Tissue Removed Subcutaneous -Tunneling No -Undermining/Tunneling No -Circular Undermining No -Wound/Ulcer Outcome Not Healed -Ulcer Cleansing Rinsed/ Irrigated with Saline -Foul Odor after Cleansing No -Bioengineered Tissue No -Bleeding Controlled with Pressure -Treatment Response Procedure Tolerated Well -Offloading No -Debridement - Subq, 1st 20sq cm No #8- RLE/ANKLE -Time 10:31 10:49 10:29 -Correct Patient Yes Yes Yes -Correct Side, Site, Position Yes Yes Yes -Correct Procedure Yes Yes Yes -Procedure Performed Yes Yes Yes -Type of Procedure Debridement Debridement Debridement -Clinical Debridement Subcutaneous Subcutaneous Subcutaneous -Tissue Removed Subcutaneous Subcutaneous Subcutaneous -Post Debridement (cm) - Length 3.0 3.5 3.5 -Post Debridement (cm) - Width 3.0 2.5 4.5 -Post Debridement (cm) - Depth 0.1 0.1 0.1 -Total Square (Post) (cm) 9.00 8.75 15.75 -Area of Debridement (cm) - Length 3.0 3.5 3.5 -Area of Debridement (cm) - Width 3.0 2.5 4.5 -Total Square (Area) (cm) 9.00 8.75 15.75 -Tunneling No No No -Undermining/Tunneling No No No -Circular Undermining No No No -Wound/Ulcer Outcome Not Healed Not Healed Not Healed -Ulcer Cleansing Rinsed/ Rinsed/ Rinsed/ Irrigated with Irrigated with Irrigated with Saline Saline Saline -Foul Odor after Cleansing No No No -Bioengineered Tissue No No No -Bleeding Controlled with Pressure Pressure Pressure -Treatment Response Procedure Procedure Procedure Tolerated Well Tolerated Well Tolerated Well -Offloading No No No -Debridement - Subq, 1st 20sq cm Yes No Yes -Debridement, SubQ, ea addt'l 20sq cm 1 or part thereof #7 right medial sinclair -Time 10:32 10:49 10:30 -Correct Patient Yes Yes Yes -Correct Side, Site, Position Yes Yes Yes -Correct Procedure Yes Yes Yes -Procedure Performed Yes Yes Yes -Type of Procedure Debridement Debridement Debridement -Clinical Debridement Subcutaneous Subcutaneous Subcutaneous -Tissue Removed Subcutaneous Subcutaneous Subcutaneous -Post Debridement (cm) - Length 2.0 1.9 2.0 -Post Debridement (cm) - Width 1.0 0.8 0.9 -Post Debridement (cm) - Depth 0.2 0.2 0.2 -Total Square (Post) (cm) 2.00 1.52 1.80 -Area of Debridement (cm) - Length 2.0 1.9 2.0 -Area of Debridement (cm) - Width 1.0 0.8 0.9 -Total Square (Area) (cm) 2.00 1.52 1.80 -Tunneling No No No -Undermining/Tunneling No No No -Circular Undermining No No No -Wound/Ulcer Outcome Not Healed Not Healed Not Healed -Ulcer Cleansing Rinsed/ Rinsed/ Rinsed/ Irrigated with Irrigated with Irrigated with Saline Saline Saline -Foul Odor after Cleansing No No No -Bioengineered Tissue No No No -Bleeding Controlled with Pressure Pressure Pressure -Treatment Response Procedure Procedure Procedure Tolerated Well Tolerated Well Tolerated Well -Offloading No No No -Debridement - Subq, 1st 20sq cm No No No #6 right lateral sinclair -Time 10:32 10:49 10:31 -Correct Patient Yes Yes Yes -Correct Side, Site, Position Yes Yes Yes -Correct Procedure Yes Yes Yes -Procedure Performed Yes Yes Yes -Type of Procedure Debridement Debridement Debridement -Clinical Debridement Subcutaneous Subcutaneous Subcutaneous -Tissue Removed Subcutaneous Subcutaneous Subcutaneous -Post Debridement (cm) - Length 5.8 2.5 2.2 -Post Debridement (cm) - Width 1.4 1.0 1.2 -Post Debridement (cm) - Depth 0.2 0.1 0.2 -Total Square (Post) (cm) 8.12 2.50 2.64 -Area of Debridement (cm) - Length 5.8 2.5 2.2 -Area of Debridement (cm) - Width 1.4 1.0 1.2 -Total Square (Area) (cm) 8.12 2.50 2.64 -Tunneling No No No -Undermining/Tunneling No No No -Circular Undermining No No No -Wound/Ulcer Outcome Not Healed Not Healed Not Healed -Ulcer Cleansing Rinsed/ Rinsed/ Rinsed/ Irrigated with Irrigated with Irrigated with Saline Saline Saline -Foul Odor after Cleansing No No No -Bioengineered Tissue No No No -Bleeding Controlled with Pressure Pressure Pressure -Treatment Response Procedure Procedure Procedure Tolerated Well Tolerated Well Tolerated Well -Offloading No No No -Debridement - Subq, 1st 20sq cm No Yes No Pain Scale: 0-10 Numeric Is Patient Pain Free? Yes Yes Yes 11/17/22 10:37 Wound Center Nurse 2 #2 R Med Ankle -Time -Correct Patient -Correct Side, Site, Position -Correct Procedure -Procedure Performed -Type of Procedure -Clinical Debridement -Tissue Removed -Tunneling -Undermining/Tunneling -Circular Undermining -Wound/Ulcer Outcome -Ulcer Cleansing -Foul Odor after Cleansing -Bioengineered Tissue -Bleeding Controlled with -Treatment Response -Offloading -Debridement - Subq, 1st 20sq cm #8- RLE/ANKLE -Time 10:37 -Correct Patient Yes -Correct Side, Site, Position Yes -Correct Procedure Yes -Procedure Performed Yes -Type of Procedure Debridement -Clinical Debridement Subcutaneous -Tissue Removed Subcutaneous -Post Debridement (cm) - Length 4.5 -Post Debridement (cm) - Width 5.5 -Post Debridement (cm) - Depth 0.1 -Total Square (Post) (cm) 24.75 -Area of Debridement (cm) - Length 4.5 -Area of Debridement (cm) - Width 5.5 -Total Square (Area) (cm) 24.75 -Tunneling No -Undermining/Tunneling No -Circular Undermining No -Wound/Ulcer Outcome Not Healed -Ulcer Cleansing Rinsed/ Irrigated with Saline -Foul Odor after Cleansing No -Bioengineered Tissue No -Bleeding Controlled with Pressure -Treatment Response Procedure Tolerated Well -Offloading No -Debridement - Subq, 1st 20sq cm Yes -Debridement, SubQ, ea addt'l 20sq cm 1 or part thereof #7 right medial sinclair -Time 10:37 -Correct Patient Yes -Correct Side, Site, Position Yes -Correct Procedure Yes -Procedure Performed Yes -Type of Procedure Debridement -Clinical Debridement Subcutaneous -Tissue Removed Subcutaneous -Post Debridement (cm) - Length 1.7 -Post Debridement (cm) - Width 0.9 -Post Debridement (cm) - Depth 0.2 -Total Square (Post) (cm) 1.53 -Area of Debridement (cm) - Length 1.7 -Area of Debridement (cm) - Width 0.9 -Total Square (Area) (cm) 1.53 -Tunneling No -Undermining/Tunneling No -Circular Undermining No -Wound/Ulcer Outcome Not Healed -Ulcer Cleansing Rinsed/ Irrigated with Saline -Foul Odor after Cleansing No -Bioengineered Tissue No -Bleeding Controlled with Pressure -Treatment Response Procedure Tolerated Well -Offloading No -Debridement - Subq, 1st 20sq cm No #6 right lateral sinclair -Time 10:38 -Correct Patient Yes -Correct Side, Site, Position Yes -Correct Procedure Yes -Procedure Performed Yes -Type of Procedure Debridement -Clinical Debridement Subcutaneous -Tissue Removed Subcutaneous -Post Debridement (cm) - Length 2.3 -Post Debridement (cm) - Width 1.0 -Post Debridement (cm) - Depth 0.2 -Total Square (Post) (cm) 2.30 -Area of Debridement (cm) - Length 2.3 -Area of Debridement (cm) - Width 1.0 -Total Square (Area) (cm) 2.30 -Tunneling No -Undermining/Tunneling No -Circular Undermining No -Wound/Ulcer Outcome Not Healed -Ulcer Cleansing Rinsed/ Irrigated with Saline -Foul Odor after Cleansing No -Bioengineered Tissue No -Bleeding Controlled with Pressure -Treatment Response Procedure Tolerated Well -Offloading No -Debridement - Subq, 1st 20sq cm No Pain Scale: 0-10 Numeric Is Patient Pain Free? Yes WC - Nurse 3 - General Ulcer D/C NN Start: 10/27/22 09:58 Freq: Status: Active Protocol: Activity Type Activity Date Activity User E-sign Co-sign Detail Recorded Client Recorded Date Recorded By Document 10/27/22 11:01 [facility] [id number] 10/27/22 11:03 [facility] Document 11/03/22 11:10 [facility] [id number] 11/03/22 11:12 BM Document 11/10/22 10:42 [facility] [id number] 11/10/22 10:44 [facility] 10/27/22 11/03/22 11/10/22 11:01 11:10 10:42 [facility] Care Center Nurse 3 #2 R Med Ankle -Ulcer Cleansing Rinsed/ Irrigated with Saline -Foul Odor after Cleansing No -Primary Dressing Applied Aquacel Extra, Optilok 6.5x10, Optilok 8x12 -Other Dressing BACTROBAN -Aquacel Extra 0 -Optilok 6.5x10 0 -Optilok 8x12 0 #8- RLE/ANKLE -Ulcer Cleansing Rinsed/ Rinsed/ Rinsed/ Irrigated with Irrigated with Irrigated with Saline Saline Saline -Foul Odor after Cleansing No No No -Primary Dressing Applied Aquacel Extra, Aquacel Extra, Aquacel Extra Optilok 6.5x10, Optilok 6.5x10 Optilok 8x12 -Other Dressing BACTROBAN BACTROBAN bactroban, drsg per dl taper and floater -Primary Dressing Covered/Secured with Dry Gauze & Dry Gauze & Dry Gauze & Roll Gauze, Roll Gauze, Roll Gauze, Secured with Secured with Secured with Tape Tape Tape -Other Covering abd -Aquacel Extra 1 1 1 -Optilok 6.5x10 1 1 -Optilok 8x12 1 #7 right medial sinclair -Ulcer Cleansing Rinsed/ Rinsed/ Rinsed/ Irrigated with Irrigated with Irrigated with Saline Saline Saline -Foul Odor after Cleansing No No No -Primary Dressing Applied Aquacel Extra, Aquacel Extra, Aquacel Extra Optilok 6.5x10, Optilok 8x12 Optilok 8x12 -Other Dressing BACTROBAN BACTROBAN bactroban, abd, drsg per dl taper and floater -Primary Dressing Covered/Secured with Dry Gauze & Dry Gauze & Dry Gauze & Roll Gauze, Roll Gauze, Roll Gauze, Secured with Secured with Secured with Tape Tape Tape -Aquacel Extra 0 0 0 -Optilok 6.5x10 0 -Optilok 8x12 0 1 #6 right lateral sinclair -Ulcer Cleansing Rinsed/ Rinsed/ Rinsed/ Irrigated with Irrigated with Irrigated with Saline Saline Saline -Foul Odor after Cleansing No No No -Primary Dressing Applied Aquacel Extra, Aquacel Extra, Aquacel Extra Optilok 6.5x10, Optilok 8x12 Optilok 8x12 -Other Dressing BACTROBAN BACTROBAN bactroban, abd, drsg per dl taper and floater -Primary Dressing Covered/Secured with Dry Gauze & Dry Gauze & Dry Gauze & Roll Gauze, Roll Gauze, Roll Gauze, Secured with Secured with Secured with Tape Tape Tape -Aquacel Extra 0 0 0 -Optilok 6.5x10 0 -Optilok 8x12 0 0 Right -Tubular Bandage Double Layer Double Layer -Size of Tubigrip Used Size F Size F -Size F ($) 2 2 -Other SENT EXTRA reapplied pts own double layer tubi size f Left -Tubular Bandage Double Layer Double Layer -Size of Tubigrip Used Size F Size F -Size F ($) 2 2 -Other SENT EXTRA pts double layer size f already on Treatment Response Procedure Procedure Procedure Tolerated Well Tolerated Well Tolerated Well Pain Scale: 0-10 Numeric Is Patient Pain Free? Yes Yes Yes WC - Visit Discharge Discharge Condition Stable Stable Stable Ambulatory Status Wheelchair Wheelchair Wheelchair Transportation ECF TRANSPORT ECF TRANSPORT ecf transport Other ASSISTED LIVING ASSISTED LIVING assisted lving Additional Wound Wound debrided: Right lower extremity (medial) Type of Debridement: Excisional debridement Anesthesia Used: 5% Lidocaine Gel Depth: Down to and including healthy tissue and in the subcutaneous layer Percentage of wound debrided: 100 Instrument Used: 5mm curette Tissue Removed: Slough and devitalized tissue Severity: Fat Layer Exposed Amount of bleeding with debridement: Mild Bleeding Controlled with: Pressure Patient tolerated procedure: Patient tolerated procedure well Additional Wound Wound debrided: Right foot/medial ankle Type of Debridement: Excisional debridement Anesthesia Used: 5% Lidocaine Gel Depth: Down to and including healthy tissue and in the subcutaneous layer Percentage of wound debrided: 100 Instrument Used: 5mm curette Tissue Removed: Slough and devitalized tissue Severity: Fat Layer Exposed Amount of bleeding with debridement: Mild Bleeding Controlled with: Pressure Patient tolerated procedure: Patient tolerated procedure well Assessment/Plan Assessment/Plan (1) Ulcer of left lower extremity with fat layer exposed: CODE(S): L97.922 - Non-pressure chronic ulcer of unspecified part of left lower leg with fat layer exposed (2) Ulcer of right lower extremity with fat layer exposed: CODE(S): L97.912 - Non-pressure chronic ulcer of unspecified part of right lower leg with fat layer exposed (3) Ulcer of right foot with fat layer exposed: CODE(S): L97.512 - Non-pressure chronic ulcer of other part of right foot with fat layer exposed (4) Venous insufficiency of both lower extremities: CODE(S): I87.2 - Venous insufficiency (chronic) (peripheral) (5) Borderline type 2 diabetes mellitus: CODE(S): R73.03 - Prediabetes (6) Lymphedema: CODE(S): I89.0 - Lymphedema, not elsewhere classified PLAN: Plan Debridement done as documented above, procedure was well-tolerated. Stable ulcers. Continues to have significant bilateral lower extremity edema and he is yet to receive his lymphedema pump. Chronic history of lymphedema. Has been utilizing compression, leg elevation and exercise without significant improvement. We had been awaiting cardiology clearance for lymphedema pump which he finally got in September. Continue Aquacel daily to all ulcers and cover with superabsorbent dressing. Mupirocin only to leg ulcers. Change med ial ankle twice daily due to drainage. Double layer Tubigrip for edema management. Elevate lower extremities when seated and in bed. Protein supplements twice daily. His questions were answered and he was advised to call with any further questions or concerns. Follow-up in 2 weeks. This note was generated with [employer] dictation software. It may contain incorrect words, spelling, and punctuation that were not noted in checking the note before signing.
== END 2022-11-25 23:59 | disposition home or self-care (01) ==
LOC: WC 10:30
PROVIDERS: PCP Internal Medicine; Visit Provider Internal Medicine
DX: I87.2 Venous insufficiency (chronic) (peripheral) (principal); L97.812 Non-pressure chronic ulcer of other part of right lower leg with fat layer exposed; L97.512 Non-pressure chronic ulcer of other part of right foot with fat layer exposed; I89.0 Lymphedema, not elsewhere classified; R60.0 Localized edema; R73.03 Prediabetes
CPT/HCPCS: 11042; 11045

== ENCOUNTER 2022-12-15 10:30 | Outpatient (RCR) | payer MEDICARE, MEDICAID, SELFPAY ==
[2022-11-26 01:20] VITALS: BP 136/61; PULSE 73; RESP 16; TEMP 35.8
[2022-12-01 10:07] VITALS: BP 129/48; PULSE 71; RESP 22; TEMP 36.4
--- NOTE | 2022-12-01 11:33 | PCM.WC.PN ---
History of Present Illness Date of Service: 12/01/22 Chief Complaint: Bilateral lower extremity ulcers History of Wound: Mr. Boles is an 82-year-old currently residing at [facility] who presents due to nonhealing bilateral lower extremity ulceration. Has been present for some months. Has had some dressing changes done at his facility without any significant improvement. 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 Not very active. Significant bilateral lower extremity edema. He denies chills, fever or feeling of unwell. He states that his appetite is good. Progress of Wound: Still has not received his lymphedema pump. [facility] states his facility is not open to paying for the lymphedema pump. Objective Data Objective Data Vital Signs: Vital Signs Temp Pulse Resp BP 97.6 F L 71 22 H 129/48 H 12/01/22 10:07 12/01/22 10:07 12/01/22 10:07 12/01/22 10:07 Charges/Coding Procedures Integumentary 111xxx-113xx: [id number] Jaye subq tissue 20 sq cm/< Add On Codes: 17200 Jaye subq tissue add-on (x 1. Additional square centimeter debrided, please refer to clinical note.) Physical Exam Const alert, oriented x3 and no apparent distress General Appearance: cooperative, comfortable and well kempt HEENT normocephalic and head/scalp atraumatic Eyes EOMs intact bilaterally General Eye: normal appearance of both eyes Neck full ROM General: normal visual inspection Resp normal respiratory effort Effort and Inspection: able to speak in complete sentences Extremity General Extremity: edema Skin Wounds: wounds noted Neuro oriented x3, CN's II-XII intact bilaterally, moves all extremities and no focal motor deficits Psych mental status grossly normal, thought process normal, cooperative and affect normal Debridement Note Debridement Note Wound debrided: Right lower extremity lateral cluster Type of Debridement: Excisional debridement Anesthesia Used: 5% Lidocaine Gel Depth: Down to and including healthy tissue and in the subcutaneous layer Percentage of wound debrided: 100 Severity: Fat Layer Exposed Amount of bleeding with debridement: Mild Bleeding Controlled with: Pressure Patient tolerated procedure: Patient tolerated procedure well Post-Debridement Measurements and Additional Note: Post-Debridement Measurements/Treatment JANAY - Nurse 1 - General Ulcer Assessment Start: 12/01/22 10:07 Freq: Status: Active Protocol: LINDA Activity Type Activity Date Activity User E-sign Co-sign Detail Recorded Client Recorded Date Recorded By Document 12/01/22 10:07 DAK[place] [id number] 12/01/22 10:28 DL 12/01/22 10:07 - Today's Visit Information Type of service Follow-up Visit (Physician/FINANCIAL ADVISOR TRAINEE ) Arrival Mode Wheelchair Transfer Assist (Other) x1 Patient Identification Verified (Name & Yes ) Patient Requires Transmission-Based No Precautions Vital Signs Temperature (97.8 F-99.1 F) 97.6 F L Temperature Source Temporal Pulse Rate (60-100) 71 Pulse Location Monitor Respiratory Rate (12-18) 22 H Respiratory rate source Observation Blood Pressure (90/60-120/80) 129/48 H Blood Pressure Mean (mm Hg) 75 Source Monitor History Since Last Visit- (Skip if this is Patient's initial visit) Have you changed medications since your No last visit? Any new allergies or adverse reactions No Had a fall/change in ADL's that may No increase risk of falls Signs or symptoms of abuse and/or No neglect since last visit Have you been in the hospital since your No last visit? Has dressing in place as prescribed Yes Has compression in place as prescribed Yes Has offloadiing in place as prescribed N/A Experienced any changes in pain level or Yes management Pain Scale: 0-10 Numeric Is Patient Pain Free? Yes - Nurse 1 - General Ulcer Measurement Start: 12/01/22 10:07 Freq: Status: Active Protocol: Activity Type Activity Date Activity User E-sign Co-sign Detail Recorded Client Recorded Date Recorded By Document 12/01/22 10:07 [id number] 12/01/22 10:28 DL 12/01/22 10:07 Wound Center Nurse 1 #8- RLE/ANKLE -Current Size (cm) - Length 3.3 -Current Size (cm) - Width 6 -Current Size (cm) - Depth 0.1 -Total Square Cm 19.8 -Photo Taken No -Exudate Amt Small -Exudate Type Serosanguineous -Wound Margin Distinct, Outline Attached -Granulation Amt Small (1-33%) -Granulation Quality Red -Necrosis Amt Small (1-33%) -Necrotic Tissue Type Adherent Slough -Structure Exposed N/A -Texture ([place]-wound Skin Appearance) Scarring -Moisture ([place]-wound Skin Appearance) Dry/Scaly -Color ([place]-wound Skin Appearance) Hemosiderin Staining -Temperature ([place]-wound Skin No Abnormality Appearance) (Pt Warm) -Tenderness on Palpation ([place]-wound No Skin Appearance) -Ulcer Cleansing Soap and Water -Anesthetic Used 5% Lidocaine Gel #7 right medial sinclair -Current Size (cm) - Length 1.2 -Current Size (cm) - Width 0.4 -Current Size (cm) - Depth 0.2 -Total Square Cm 0.48 -Photo Taken No -Exudate Amt Small -Exudate Type Serosanguineous -Wound Margin Distinct, Outline Attached -Granulation Amt Small (1-33%) -Granulation Quality Red -Necrosis Amt Small (1-33%) -Necrotic Tissue Type Adherent Slough -Structure Exposed N/A -Texture ([place]-wound Skin Appearance) Scarring -Moisture ([place]-wound Skin Appearance) Dry/Scaly -Color ([place]-wound Skin Appearance) Hemosiderin Staining -Temperature ([place]-wound Skin No Abnormality Appearance) (Pt Warm) -Tenderness on Palpation ([place]-wound No Skin Appearance) -Ulcer Cleansing Soap and Water -Foul Odor after Cleansing No -Anesthetic Used 5% Lidocaine Gel #6 right lateral sinclair -Current Size (cm) - Length 2 -Current Size (cm) - Width 0.9 -Current Size (cm) - Depth 0.2 -Total Square Cm 1.8 -Photo Taken No -Exudate Amt Small -Exudate Type Serosanguineous -Wound Margin Distinct, Outline Attached -Granulation Amt Small (1-33%) -Granulation Quality Red -Necrosis Amt Small (1-33%) -Necrotic Tissue Type Adherent Slough -Structure Exposed N/A -Texture ([place]-wound Skin Appearance) Scarring -Moisture ([place]-wound Skin Appearance) Dry/Scaly -Color ([place]-wound Skin Appearance) Hemosiderin Staining -Temperature ([place]-wound Skin No Abnormality Appearance) (Pt Warm) -Ulcer Cleansing Soap and Water -Foul Odor after Cleansing No -Anesthetic Used 5% Lidocaine Gel Right Calf (cm) 47.5 Right Ankle (cm) 34 WC - Nurse 2 - General Ulcer CM Notes Start: 12/01/22 10:07 Freq: Status: Active Protocol: Activity Type Activity Date Activity User E-sign Co-sign Detail Recorded Client Recorded Date Recorded By Document 12/01/22 11:12 MW [id number] 12/01/22 11:18 MW 12/01/22 11:12 Wound Center Nurse 2 #8- RLE/ANKLE -Time 11:14 -Correct Patient Yes -Correct Side, Site, Position Yes -Correct Procedure Yes -Procedure Performed Yes -Type of Procedure Debridement -Clinical Debridement Subcutaneous -Tissue Removed Subcutaneous -Post Debridement (cm) - Length 4.0 -Post Debridement (cm) - Width 5.5 -Post Debridement (cm) - Depth 0.1 -Total Square (Post) (cm) 22.00 -Area of Debridement (cm) - Length 4.0 -Area of Debridement (cm) - Width 5.5 -Total Square (Area) (cm) 22.00 -Tunneling No -Undermining/Tunneling No -Circular Undermining No -Wound/Ulcer Outcome Not Healed -Ulcer Cleansing Rinsed/ Irrigated with Saline -Foul Odor after Cleansing No -Bioengineered Tissue No -Bleeding Controlled with Pressure -Treatment Response Procedure Tolerated Well -Offloading No -Debridement - Subq, 1st 20sq cm Yes -Debridement, SubQ, ea addt'l 20sq cm 1 or part thereof #7 right medial sinclair -Time 11:14 -Correct Patient Yes -Correct Side, Site, Position Yes -Correct Procedure Yes -Procedure Performed Yes -Type of Procedure Debridement -Clinical Debridement Subcutaneous -Tissue Removed Subcutaneous -Post Debridement (cm) - Length 1.5 -Post Debridement (cm) - Width 0.5 -Post Debridement (cm) - Depth 0.2 -Total Square (Post) (cm) 0.75 -Area of Debridement (cm) - Length 1.5 -Area of Debridement (cm) - Width 0.5 -Total Square (Area) (cm) 0.75 -Tunneling No -Undermining/Tunneling No -Circular Undermining No -Wound/Ulcer Outcome Not Healed -Ulcer Cleansing Rinsed/ Irrigated with Saline -Foul Odor after Cleansing No -Bioengineered Tissue No -Bleeding Controlled with Pressure -Treatment Response Procedure Tolerated Well -Offloading No -Debridement - Subq, 1st 20sq cm No #6 right lateral sinclair -Time 11:15 -Correct Patient Yes -Correct Side, Site, Position Yes -Correct Procedure Yes -Procedure Performed Yes -Type of Procedure Debridement -Clinical Debridement Subcutaneous -Tissue Removed Subcutaneous -Post Debridement (cm) - Length 2.5 -Post Debridement (cm) - Width 0.9 -Post Debridement (cm) - Depth 0.2 -Total Square (Post) (cm) 2.25 -Area of Debridement (cm) - Length 2.5 -Area of Debridement (cm) - Width 0.9 -Total Square (Area) (cm) 2.25 -Tunneling No -Undermining/Tunneling No -Circular Undermining No -Wound/Ulcer Outcome Not Healed -Ulcer Cleansing Rinsed/ Irrigated with Saline -Foul Odor after Cleansing No -Bioengineered Tissue No -Bleeding Controlled with Pressure -Treatment Response Procedure Tolerated Well -Offloading No -Debridement - Subq, 1st 20sq cm No Pain Scale: 0-10 Numeric Is Patient Pain Free? Yes Additional Wound Wound debrided: Right lower extremity (medial) Type of Debridement: Excisional debridement Anesthesia Used: 5% Lidocaine Gel Depth: Down to and including healthy tissue and in the subcutaneous layer Percentage of wound debrided: 100 Instrument Used: 5mm curette Tissue Removed: Slough and devitalized tissue Severity: Fat Layer Exposed Amount of bleeding with debridement: Mild Bleeding Controlled with: Pressure Patient tolerated procedure: Patient tolerated procedure well Additional Wound Wound debrided: Right foot/medial ankle Type of Debridement: Excisional debridement Anesthesia Used: 5% Lidocaine Gel Depth: Down to and including healthy tissue and in the subcutaneous layer Percentage of wound debrided: 100 Instrument Used: 5mm curette Tissue Removed: Slough and devitalized tissue Severity: Fat Layer Exposed Amount of bleeding with debridement: Mild Bleeding Controlled with: Pressure Patient tolerated procedure: Patient tolerated procedure well Assessment/Plan Assessment/Plan (1) Ulcer of left lower extremity with fat layer exposed: CODE(S): L97.922 - Non-pressure chronic ulcer of unspecified part of left lower leg with fat layer exposed (2) Ulcer of right lower extremity with fat layer exposed: CODE(S): L97.912 - Non-pressure chronic ulcer of unspecified part of right lower leg with fat layer exposed (3) Ulcer of right foot with fat layer exposed: CODE(S): L97.512 - Non-pressure chronic ulcer of other part of right foot with fat layer exposed (4) Venous insufficiency of both lower extremities: CODE(S): I87.2 - Venous insufficiency (chronic) (peripheral) (5) Borderline type 2 diabetes mellitus: CODE(S): R73.03 - Prediabetes (6) Lymphedema: CODE(S): I89.0 - Lymphedema, not elsewhere classified PLAN: Plan Debridement done as documented above, procedure was well-tolerated. Stable ulcers. Continues to have significant bilateral lower extremity edema and he is yet to receive his lymphedema pump. Chronic history of lymphedema. Has been utilizing compression, leg elevation and exercise without significant improvement. We had been awaiting cardiology clearance for lymphedema pump which he finally got in September. We will reach out to his facility to facilitate purchase of his lymphedema pump which he definitely needs. Continue Aquacel daily to all ulcers and cover with superabsorbent dressing. Mupirocin only to leg ulcers. Change medial ankle twice daily due to drainage. Double layer Tubigrip for edema management. Elevate lower extremities when seated and in bed. Protein supplements twice daily. His questions were answered and he was advised to call with any further questions or concerns. Follow-up in 1 week. This note was generated with [employer] dictation software. It may contain incorrect words, spelling, and punctuation that were not noted in checking the note before signing.
[2022-12-08 10:53] VITALS: BP 133/59; PULSE 71; RESP 22; TEMP 37
--- NOTE | 2022-12-08 12:33 | PN.PCM_ITS ---
History of Present Illness Date of Service: 12/08/22 Chief Complaint: Bilateral lower extremity ulcers History of Wound: Mr. Boles is an 82-year-old currently residing at [facility] who presents due to nonhealing bilateral lower extremity ulceration. Has been present for some months. Has had some dressing changes done at his facility without any significant improvement. 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 Not very active. Significant bilateral lower extremity edema. He denies chills, fever or feeling of unwell. He states that his appetite is good. Progress of Wound: Still has not received his lymphedema pump. Stable ulcers. Worsening lower extremity swelling. Objective Data Objective Data Vital Signs: Vital Signs Temp Pulse Resp BP 98.6 F 71 22 H 133/59 H 12/08/22 10:53 12/08/22 10:53 12/08/22 10:53 12/08/22 10:53 Charges/Coding Procedures Integumentary 111xxx-113xx: [id number] Jaye subq tissue 20 sq cm/< Add On Codes: 61038 Jaye subq tissue add-on (x1 additional debridement done as documented, please refer to clinical note.) Physical Exam Const alert, oriented x3 and no apparent distress General Appearance: cooperative, comfortable and well kempt HEENT normocephalic and head/scalp atraumatic Eyes EOMs intact bilaterally General Eye: normal appearance of both eyes Neck full ROM General: normal visual inspection Resp normal respiratory effort Effort and Inspection: able to speak in complete sentences Extremity General Extremity: edema Skin Wounds: wounds noted Neuro oriented x3, CN's II-XII intact bilaterally, moves all extremities and no focal motor deficits Psych mental status grossly normal, thought process normal, cooperative and affect normal Debridement Note Debridement Note Wound debrided: Right lower extremity lateral cluster Type of Debridement: Excisional debridement Anesthesia Used: 5% Lidocaine Gel Depth: Down to and including healthy tissue and in the subcutaneous layer Percentage of wound debrided: 100 Severity: Fat Layer Exposed Amount of bleeding with debridement: Mild Bleeding Controlled with: Pressure Patient tolerated procedure: Patient tolerated procedure well Post-Debridement Measurements and Additional Note: Post-Debridement Measurements/Treatment JANAY - Nurse 1 - General Ulcer Assessment Start: 12/01/22 10:07 Freq: Status: Active Protocol: LINDA Activity Type Activity Date Activity User E-sign Co-sign Detail Recorded Client Recorded Date Recorded By Document 12/01/22 10:07 DL [id number] 12/01/22 10:28 DL Document 12/08/22 10:53 DL [id number] 12/08/22 11:02 DL 12/01/22 12/08/22 10:07 10:53 - Today's Visit Information Type of service Follow-up Visit Follow-up Visit (Physician/ROUTE DELIVERY MANAGER (Physician/ROUTE DELIVERY MANAGER ) ) Arrival Mode Wheelchair Wheelchair Transfer Assistance Manual Transfer Assist (Other) x1 x1 Patient Identification Verified (Name & Yes Yes ) Patient Requires Transmission-Based No No Precautions Vital Signs Temperature (97.8 F-99.1 F) 97.6 F L 98.6 F Temperature Source Temporal Temporal Pulse Rate (60-100) 71 71 Pulse Location Monitor Monitor Respiratory Rate (12-18) 22 H 22 H Respiratory rate source Observation Observation Blood Pressure (90/60-120/80) 129/48 H 133/59 H Blood Pressure Mean (mm Hg) 75 83 Source Monitor Manual History Since Last Visit- (Skip if this is Patient's initial visit) Have you changed medications since your No No last visit? Any new allergies or adverse reactions No No Had a fall/change in ADL's that may No No increase risk of falls Signs or symptoms of abuse and/or No No neglect since last visit Have you been in the hospital since your No No last visit? Has dressing in place as prescribed Yes Yes Has compression in place as prescribed Yes Yes Has offloadiing in place as prescribed N/A N/A Experienced any changes in pain level or Yes No management Pain Scale: 0-10 Numeric Is Patient Pain Free? Yes Yes - Nurse 1 - General Ulcer Measurement Start: 12/01/22 10:07 Freq: Status: Active Protocol: Activity Type Activity Date Activity User E-sign Co-sign Detail Recorded Client Recorded Date Recorded By Document 12/01/22 10:07 DL [id number] 12/01/22 10:28 DL Document 12/08/22 10:53 DL [id number] 12/08/22 11:02 DL 12/01/22 12/08/22 10:07 10:53 Wound Center Nurse 1 #8- RLE/ANKLE -Current Size (cm) - Length 3.3 4.5 -Current Size (cm) - Width 6 5 -Current Size (cm) - Depth 0.1 0.1 -Total Square Cm 19.8 22.5 -Photo Taken No No -Exudate Amt Small Medium -Exudate Type Serosanguineous Serosanguineous -Wound Margin Distinct, Indistinct, Non Outline -Visible Attached -Granulation Amt Small (1-33%) Medium (34-66%) -Granulation Quality Red Pale,[place] -Necrosis Amt Small (1-33%) Medium (34-66%) -Necrotic Tissue Type Adherent Slough Adherent Slough -Structure Exposed N/A N/A -Texture ([place]-wound Skin Appearance) Scarring Scarring -Moisture ([place]-wound Skin Appearance) Dry/Scaly No Abnormality -Color ([place]-wound Skin Appearance) Hemosiderin Hemosiderin Staining Staining -Temperature ([place]-wound Skin No Abnormality No Abnormality Appearance) (Pt Warm) (Pt Warm) -Tenderness on Palpation ([place]-wound No Skin Appearance) -Ulcer Cleansing Soap and Water Soap and Water -Foul Odor after Cleansing No -Anesthetic Used 5% Lidocaine 5% Lidocaine Gel Gel #7 right medial sinclair -Current Size (cm) - Length 1.2 0.5 -Current Size (cm) - Width 0.4 1.2 -Current Size (cm) - Depth 0.2 0.1 -Total Square Cm 0.48 0.60 -Photo Taken No No -Exudate Amt Small Small -Exudate Type Serosanguineous Serosanguineous -Wound Margin Distinct, Distinct, Outline Outline Attached Attached -Granulation Amt Small (1-33%) Small (1-33%) -Granulation Quality Red Red -Necrosis Amt Small (1-33%) Small (1-33%) -Necrotic Tissue Type Adherent Slough Adherent Slough -Structure Exposed N/A N/A -Texture ([place]-wound Skin Appearance) Scarring Scarring -Moisture ([place]-wound Skin Appearance) Dry/Scaly Dry/Scaly -Color ([place]-wound Skin Appearance) Hemosiderin Hemosiderin Staining Staining -Temperature ([place]-wound Skin No Abnormality No Abnormality Appearance) (Pt Warm) (Pt Warm) -Tenderness on Palpation ([place]-wound No No Skin Appearance) -Ulcer Cleansing Soap and Water Soap and Water -Foul Odor after Cleansing No No -Anesthetic Used 5% Lidocaine 5% Lidocaine Gel Gel #6 right lateral sinclair -Current Size (cm) - Length 2 2.1 -Current Size (cm) - Width 0.9 0.9 -Current Size (cm) - Depth 0.2 0.2 -Total Square Cm 1.8 1.89 -Photo Taken No No -Exudate Amt Small Medium -Exudate Type Serosanguineous Serosanguineous -Wound Margin Distinct, Distinct, Outline Outline Attached Attached -Granulation Amt Small (1-33%) Large (67-100%) -Granulation Quality Red Red -Necrosis Amt Small (1-33%) Small (1-33%) -Necrotic Tissue Type Adherent Slough Adherent Slough -Structure Exposed N/A N/A -Texture ([place]-wound Skin Appearance) Scarring Scarring -Moisture ([place]-wound Skin Appearance) Dry/Scaly Dry/Scaly -Color ([place]-wound Skin Appearance) Hemosiderin Hemosiderin Staining Staining -Temperature ([place]-wound Skin No Abnormality No Abnormality Appearance) (Pt Warm) (Pt Warm) -Tenderness on Palpation ([place]-wound No Skin Appearance) -Ulcer Cleansing Soap and Water Soap and Water -Foul Odor after Cleansing No No -Anesthetic Used 5% Lidocaine 5% Lidocaine Gel Gel Right Calf (cm) 47.5 48 Right Ankle (cm) 34 34 Left Calf (cm) 46 Left Ankle (cm) 36.5 WC - Nurse 2 - General Ulcer CM Notes Start: 12/01/22 10:07 Freq: Status: Active Protocol: Activity Type Activity Date Activity User E-sign Co-sign Detail Recorded Client Recorded Date Recorded By Document 12/01/22 11:12 MW [id number] 12/01/22 11:18 MW Document 12/08/22 11:17 MW [id number] 12/08/22 11:26 MW 12/01/22 12/08/22 11:12 11:17 Wound Center Nurse 2 #8- RLE/ANKLE -Time 11:14 11:17 -Correct Patient Yes Yes -Correct Side, Site, Position Yes Yes -Correct Procedure Yes Yes -Procedure Performed Yes Yes -Type of Procedure Debridement Debridement -Clinical Debridement Subcutaneous Subcutaneous -Tissue Removed Subcutaneous Subcutaneous -Post Debridement (cm) - Length 4.0 4.5 -Post Debridement (cm) - Width 5.5 5.4 -Post Debridement (cm) - Depth 0.1 0.1 -Total Square (Post) (cm) 22.00 24.30 -Area of Debridement (cm) - Length 4.0 4.5 -Area of Debridement (cm) - Width 5.5 5.4 -Total Square (Area) (cm) 22.00 24.30 -Tunneling No No -Undermining/Tunneling No No -Circular Undermining No No -Wound/Ulcer Outcome Not Healed Not Healed -Ulcer Cleansing Rinsed/ Rinsed/ Irrigated with Irrigated with Saline Saline -Foul Odor after Cleansing No No -Bioengineered Tissue No No -Bleeding Controlled with Pressure Pressure -Treatment Response Procedure Procedure Tolerated Well Tolerated Well -Offloading No No -Debridement - Subq, 1st 20sq cm Yes Yes -Debridement, SubQ, ea addt'l 20sq cm 1 1 or part thereof #7 right medial sinclair -Time 11:14 11:18 -Correct Patient Yes Yes -Correct Side, Site, Position Yes Yes -Correct Procedure Yes Yes -Procedure Performed Yes Yes -Type of Procedure Debridement Debridement -Clinical Debridement Subcutaneous Subcutaneous -Tissue Removed Subcutaneous Subcutaneous -Post Debridement (cm) - Length 1.5 1.5 -Post Debridement (cm) - Width 0.5 0.4 -Post Debridement (cm) - Depth 0.2 0.2 -Total Square (Post) (cm) 0.75 0.60 -Area of Debridement (cm) - Length 1.5 1.5 -Area of Debridement (cm) - Width 0.5 0.4 -Total Square (Area) (cm) 0.75 0.60 -Tunneling No No -Undermining/Tunneling No No -Circular Undermining No No -Wound/Ulcer Outcome Not Healed Not Healed -Ulcer Cleansing Rinsed/ Rinsed/ Irrigated with Irrigated with Saline Saline -Foul Odor after Cleansing No No -Bioengineered Tissue No No -Bleeding Controlled with Pressure Pressure -Treatment Response Procedure Procedure Tolerated Well Tolerated Well -Offloading No No -Debridement - Subq, 1st 20sq cm No No #6 right lateral sinclair -Time 11:15 11:19 -Correct Patient Yes Yes -Correct Side, Site, Position Yes Yes -Correct Procedure Yes Yes -Procedure Performed Yes Yes -Type of Procedure Debridement Debridement -Clinical Debridement Subcutaneous Subcutaneous -Tissue Removed Subcutaneous Subcutaneous -Post Debridement (cm) - Length 2.5 2.0 -Post Debridement (cm) - Width 0.9 0.8 -Post Debridement (cm) - Depth 0.2 0.2 -Total Square (Post) (cm) 2.25 1.60 -Area of Debridement (cm) - Length 2.5 2.0 -Area of Debridement (cm) - Width 0.9 0.8 -Total Square (Area) (cm) 2.25 1.60 -Tunneling No No -Undermining/Tunneling No No -Circular Undermining No No -Wound/Ulcer Outcome Not Healed Not Healed -Ulcer Cleansing Rinsed/ Rinsed/ Irrigated with Irrigated with Saline Saline -Foul Odor after Cleansing No No -Bioengineered Tissue No No -Bleeding Controlled with Pressure Pressure -Treatment Response Procedure Procedure Tolerated Well Tolerated Well -Offloading No No -Debridement - Subq, 1st 20sq cm No No Pain Scale: 0-10 Numeric Is Patient Pain Free? Yes Yes WC - Nurse 3 - General Ulcer D/C NN Start: 12/01/22 10:07 Freq: Status: Active Protocol: Activity Type Activity Date Activity User E-sign Co-sign Detail Recorded Client Recorded Date Recorded By Document 12/01/22 11:43 [facility] [id number] 12/01/22 11:45 [facility] Document 12/08/22 11:43 [id number] 12/08/22 11:46 DL 12/01/22 12/08/22 11:43 11:43 Wound Care Center Nurse 3 #8- RLE/ANKLE -Ulcer Cleansing Rinsed/ Rinsed/ Irrigated with Irrigated with Saline Saline -Foul Odor after Cleansing No No -Primary Dressing Applied Aquacel Extra Aquacel Extra, Optilok 6.5x10 -Other Dressing BACTROBAN bactroban -Primary Dressing Covered/Secured with Dry Gauze & Dry Gauze & Roll Gauze, Roll Gauze, Secured with Secured with Tape Tape -Other Covering ABD -Aquacel Extra 1 1 -Optilok 6.5x10 1 #7 right medial sinclair -Ulcer Cleansing Rinsed/ Rinsed/ Irrigated with Irrigated with Saline Saline -Foul Odor after Cleansing No No -Primary Dressing Applied Aquacel Extra -Other Dressing BACTROBAN aquacel/ bactroban -Primary Dressing Covered/Secured with Dry Gauze & Dry Gauze,Dry Roll Gauze, Gauze & Roll Secured with Gauze,Secured Tape with Tape -Aquacel Extra 0 #6 right lateral sinclair -Ulcer Cleansing Rinsed/ Rinsed/ Irrigated with Irrigated with Saline Saline -Foul Odor after Cleansing No No -Primary Dressing Applied Aquacel Extra -Other Dressing BACTROBAN aquacel/ bactroban -Primary Dressing Covered/Secured with Dry Gauze & Dry Gauze,Dry Roll Gauze, Gauze & Roll Secured with Gauze,Secured Tape with Tape -Aquacel Extra 0 BLE -Other REAPPLIED PTS tubigrips OWN DOUBLE LAYER TUBIS Treatment Response Procedure Procedure Tolerated Well Tolerated Well Pain Scale: 0-10 Numeric Is Patient Pain Free? Yes Yes WC - Visit Discharge Discharge Condition Stable Stable Ambulatory Status Wheelchair Wheelchair Transportation [facility] Facility Type [facility] Other ASSISTED LVING Orders Sent Yes Additional Wound Wound debrided: Right lower extremity (medial) Type of Debridement: Excisional debridement Anesthesia Used: 5% Lidocaine Gel Depth: Down to and including healthy tissue and in the subcutaneous layer Percentage of wound debrided: 100 Instrument Used: 5mm curette Tissue Removed: Slough and devitalized tissue Severity: Fat Layer Exposed Amount of bleeding with debridement: Mild Bleeding Controlled with: Pressure Patient tolerated procedure: Patient tolerated procedure well Additional Wound Wound debrided: Right foot/medial ankle Type of Debridement: Excisional debridement Anesthesia Used: 5% Lidocaine Gel Depth: Down to and including healthy tissue and in the subcutaneous layer Percentage of wound debrided: 100 Instrument Used: 5mm curette Tissue Removed: Slough and devitalized tissue Severity: Fat Layer Exposed Amount of bleeding with debridement: Mild Bleeding Controlled with: Pressure Patient tolerated procedure: Patient tolerated procedure well Assessment/Plan Assessment/Plan (1) Ulcer of left lower extremity with fat layer exposed: CODE(S): L97.922 - Non-pressure chronic ulcer of unspecified part of left lower leg with fat layer exposed (2) Ulcer of right lower extremity with fat layer exposed: CODE(S): L97.912 - Non-pressure chronic ulcer of unspecified part of right lower leg with fat layer exposed (3) Ulcer of right foot with fat layer exposed: CODE(S): L97.512 - Non-pressure chronic ulcer of other part of right foot with fat layer exposed (4) Venous insufficiency of both lower extremities: CODE(S): I87.2 - Venous insufficiency (chronic) (peripheral) (5) Borderline type 2 diabetes mellitus: CODE(S): R73.03 - Prediabetes (6) Lymphedema: CODE(S): I89.0 - Lymphedema, not elsewhere classified PLAN: Plan Debridement done as documented above, procedure was well-tolerated. Stable ulcers. Continues to have significant bilateral lower extremity edema and he is yet to receive his lymphedema pump. Chronic history of lymphedema. Has been utilizing compression, leg elevation and exercise without significant improvement. We had been awaiting cardiology clearance for lymphedema pump which he finally got in September. Continue Aquacel daily to all ulcers and cover with superabsorbent dressing. Mupirocin only to leg ulcers. Change medial ankle twice daily due to drainage. Double layer Tubigrip for edema management. Elevate lower extremities when seated and in bed. Protein supplements twice daily. His questions were answered and he was advised to call with any further questions or concerns. Follow-up in 1 week. This note was generated with [employer] dictation software. It may contain incorrect words, spelling, and punctuation that were not noted in checking the note before signing.
[2022-12-15 10:34] VITALS: BP 114/53; PULSE 74; RESP 16; TEMP 36.6
--- NOTE | 2022-12-15 12:28 | PN.PCM_ITS ---
History of Present Illness Date of Service: 12/15/22 Chief Complaint: Bilateral lower extremity ulcers History of Wound: Mr. Boles is an 82-year-old currently residing at [facility] who presents due to nonhealing bilateral lower extremity ulceration. Has been present for some months. Has had some dressing changes done at his facility without any significant improvement. 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 Not very active. Significant bilateral lower extremity edema. He denies chills, fever or feeling of unwell. He states that his appetite is good. Progress of Wound: Still has not received his lymphedema pump. Stable ulcers. Worsening lower extremity swelling. Objective Data Objective Data Vital Signs: Vital Signs Temp Pulse Resp BP O2 Del Method 98 F 74 16 114/53 L Room Air 12/15/22 10:34 12/15/22 10:34 12/15/22 10:34 12/15/22 10:34 12/15/22 10:34 Oxygen Delivery Method Room Air Charges/Coding Procedures Integumentary 111xxx-113xx: [id number] Jaye subq tissue 20 sq cm/< Add On Codes: 67784 Jaye subq tissue add-on (x1. Additional square centimeter debrided, please refer to clinical note.) Physical Exam Const alert, oriented x3 and no apparent distress General Appearance: cooperative, comfortable and well kempt HEENT normocephalic and head/scalp atraumatic Eyes EOMs intact bilaterally General Eye: normal appearance of both eyes Neck full ROM General: normal visual inspection Resp normal respiratory effort Effort and Inspection: able to speak in complete sentences Extremity General Extremity: edema Skin Wounds: wounds noted Neuro oriented x3, CN's II-XII intact bilaterally, moves all extremities and no focal motor deficits Psych mental status grossly normal, thought process normal, cooperative and affect normal Debridement Note Debridement Note Wound debrided: Right lower extremity lateral cluster Type of Debridement: Excisional debridement Anesthesia Used: 5% Lidocaine Gel Depth: Down to and including healthy tissue and in the subcutaneous layer Percentage of wound debrided: 100 Severity: Fat Layer Exposed Amount of bleeding with debridement: Mild Bleeding Controlled with: Pressure Patient tolerated procedure: Patient tolerated procedure well Post-Debridement Measurements and Additional Note: Post-Debridement Measurements/Treatment JANAY - Nurse 1 - General Ulcer Assessment Start: 12/01/22 10:07 Freq: Status: Active Protocol: JANAY.LOWEXT Activity Type Activity Date Activity User E-sign Co-sign Detail Recorded Client Recorded Date Recorded By Document 12/01/22 10:07 DL [id number] 12/01/22 10:28 DL Document 12/08/22 10:53 DL [id number] 12/08/22 11:02 DL Document 12/15/22 10:34 [facility] [id number] 12/15/22 11:01 BMF 12/01/22 12/08/22 12/15/22 10:07 10:53 10:34 - Today's Visit Information Type of service Follow-up Visit Follow-up Visit Follow-up Visit (Physician/FREIGHT ENGINEER (Physician/FREIGHT ENGINEER (Physician/FREIGHT ENGINEER ) ) ) Arrival Mode Wheelchair Wheelchair Wheelchair Transfer Assistance Manual Other Transfer Assist (Other) x1 x1 1 Patient Identification Verified (Name & Yes Yes Yes ) Patient Requires Transmission-Based No No No Precautions Vital Signs Temperature (97.8 F-99.1 F) 97.6 F L 98.6 F 98 F Temperature Source Temporal Temporal Temporal Pulse Rate (60-100) 71 71 74 Pulse Location Monitor Monitor Monitor Respiratory Rate (12-18) 22 H 22 H 16 Respiratory rate source Observation Observation Observation Oxygen Delivery Method Room Air Blood Pressure (90/60-120/80) 129/48 H 133/59 H 114/53 L Blood Pressure Mean (mm Hg) 75 83 73 Source Monitor Manual Monitor Position Sitting Blood Pressure Location Left Arm History Since Last Visit- (Skip if this is Patient's initial visit) Have you changed medications since your No No No last visit? Any new allergies or adverse reactions No No No Had a fall/change in ADL's that may No No No increase risk of falls Signs or symptoms of abuse and/or No No No neglect since last visit Have you been in the hospital since your No No No last visit? Has dressing in place as prescribed Yes Yes Yes Has compression in place as prescribed Yes Yes Yes Has offloadiing in place as prescribed N/A N/A N/A Experienced any changes in pain level or Yes No No management Left Footwear Regular Shoe Right Footwear Regular Shoe Pain Scale: 0-10 Numeric Is Patient Pain Free? Yes Yes Yes - Nurse 1 - General Ulcer Measurement Start: 12/01/22 10:07 Freq: Status: Active Protocol: Activity Type Activity Date Activity User E-sign Co-sign Detail Recorded Client Recorded Date Recorded By Document 12/01/22 10:07 DL [id number] 12/01/22 10:28 DL Document 12/08/22 10:53 DL [id number] 12/08/22 11:02 DL Document 12/15/22 10:34 [facility] [id number] 12/15/22 11:01 BMF 12/01/22 12/08/22 12/15/22 10:07 10:53 10:34 Wound Center Nurse 1 #8- RLE/ANKLE -Combined with other wound No -Current Size (cm) - Length 3.3 4.5 5.7 -Current Size (cm) - Width 6 5 6.6 -Current Size (cm) - Depth 0.1 0.1 0.1 -Total Square Cm 19.8 22.5 37.62 -Date of Last Picture (Recall this 12/15/22 field) -Photo Taken No No Yes -Epithelialization None Present -Tunneling No -Undermining/Tunneling No -Circular Undermining No -Exudate Amt Small Medium Large -Exudate Type Serosanguineous Serosanguineous Serous -Wound Margin Distinct, Indistinct, Non Flat & Intact Outline -Visible Attached -Granulation Amt Small (1-33%) Medium (34-66%) Small (1-33%) -Granulation Quality Red Pale,Corinna [place]inna -Slough/Fibrin Yes -Necrosis Amt Small (1-33%) Medium (34-66%) Large (67-100%) -Necrotic Tissue Type Adherent Slough Adherent Slough Adherent Slough -Structure Exposed N/A N/A -Texture ([place]-wound Skin Appearance) Scarring Scarring Assessed, Scarring -Moisture ([place]-wound Skin Appearance) Dry/Scaly No Abnormality Assessed -Color ([place]-wound Skin Appearance) Hemosiderin Hemosiderin Assessed Staining Staining -Temperature ([place]-wound Skin No Abnormality No Abnormality No Abnormality Appearance) (Pt Warm) (Pt Warm) (Pt Warm) -Tenderness on Palpation ([place]-wound No No Skin Appearance) -Ulcer Cleansing Soap and Water Soap and Water Soap and Water -Foul Odor after Cleansing No No -Anesthetic Used 5% Lidocaine 5% Lidocaine 5% Lidocaine Gel Gel Gel #7 right medial sinclair -Combined with other wound No -Current Size (cm) - Length 1.2 0.5 3.6 -Current Size (cm) - Width 0.4 1.2 3.5 -Current Size (cm) - Depth 0.2 0.1 0.2 -Total Square Cm 0.48 0.60 12.60 -Date of Last Picture (Recall this 12/15/22 field) -Photo Taken No No Yes -Epithelialization Small 1-33% -Tunneling No -Undermining/Tunneling No -Circular Undermining No -Exudate Amt Small Small Medium -Exudate Type Serosanguineous Serosanguineous Serosanguineous -Wound Margin Distinct, Distinct, Distinct, Outline Outline Outline Attached Attached Attached -Granulation Amt Small (1-33%) Small (1-33%) Small (1-33%) -Granulation Quality Red Red [place] -Slough/Fibrin Yes -Necrosis Amt Small (1-33%) Small (1-33%) Medium (34-66%) -Necrotic Tissue Type Adherent Slough Adherent Slough Adherent Slough -Structure Exposed N/A N/A -Texture ([place]-wound Skin Appearance) Scarring Scarring Assessed, Scarring -Moisture ([place]-wound Skin Appearance) Dry/Scaly Dry/Scaly Assessed,Dry/ Scaly -Color ([place]-wound Skin Appearance) Hemosiderin Hemosiderin Assessed Staining Staining -Temperature ([place]-wound Skin No Abnormality No Abnormality No Abnormality Appearance) (Pt Warm) (Pt Warm) (Pt Warm) -Tenderness on Palpation ([place]-wound No No No Skin Appearance) -Ulcer Cleansing Soap and Water Soap and Water Soap and Water -Foul Odor after Cleansing No No No -Anesthetic Used 5% Lidocaine 5% Lidocaine 5% Lidocaine Gel Gel Gel #6 right lateral sinclair -Combined with other wound No -Current Size (cm) - Length 2 2.1 1.7 -Current Size (cm) - Width 0.9 0.9 0.6 -Current Size (cm) - Depth 0.2 0.2 0.3 -Total Square Cm 1.8 1.89 1.02 -Date of Last Picture (Recall this 12/15/22 field) -Photo Taken No No Yes -Epithelialization Small 1-33% -Tunneling No -Undermining/Tunneling No -Circular Undermining No -Exudate Amt Small Medium Medium -Exudate Type Serosanguineous Serosanguineous Serosanguineous -Wound Margin Distinct, Distinct, Distinct, Outline Outline Outline Attached Attached Attached -Granulation Amt Small (1-33%) Large (67-100%) Large (67-100%) -Granulation Quality Red Red Red -Slough/Fibrin Yes -Necrosis Amt Small (1-33%) Small (1-33%) Small (1-33%) -Necrotic Tissue Type Adherent Slough Adherent Slough Adherent Slough -Structure Exposed N/A N/A -Texture ([place]-wound Skin Appearance) Scarring Scarring Assessed, Scarring -Moisture ([place]-wound Skin Appearance) Dry/Scaly Dry/Scaly Assessed,Dry/ Scaly -Color ([place]-wound Skin Appearance) Hemosiderin Hemosiderin Assessed Staining Staining -Temperature ([place]-wound Skin No Abnormality No Abnormality No Abnormality Appearance) (Pt Warm) (Pt Warm) (Pt Warm) -Tenderness on Palpation ([place]-wound No No Skin Appearance) -Ulcer Cleansing Soap and Water Soap and Water Soap and Water -Foul Odor after Cleansing No No No -Anesthetic Used 5% Lidocaine 5% Lidocaine 5% Lidocaine Gel Gel Gel Lower Limb Edema Present Yes Right Calf (cm) 47.5 48 49.7 Right Ankle (cm) 34 34 34.8 Left Calf (cm) 46 Left Ankle (cm) 36.5 WC - Nurse 2 - General Ulcer CM Notes Start: 12/01/22 10:07 Freq: Status: Active Protocol: Activity Type Activity Date Activity User E-sign Co-sign Detail Recorded Client Recorded Date Recorded By Document 12/01/22 11:12 MW [id number] 12/01/22 11:18 MW Document 12/08/22 11:17 MW [id number] 12/08/22 11:26 MW Document 12/15/22 11:16 MW [id number] 12/15/22 11:27 MW 12/01/22 12/08/22 12/15/22 11:12 11:17 11:16 Wound Center Nurse 2 #8- RLE/ANKLE -Time 11:14 11:17 11:16 -Correct Patient Yes Yes Yes -Correct Side, Site, Position Yes Yes Yes -Correct Procedure Yes Yes Yes -Procedure Performed Yes Yes Yes -Type of Procedure Debridement Debridement Debridement -Clinical Debridement Subcutaneous Subcutaneous Subcutaneous -Tissue Removed Subcutaneous Subcutaneous Subcutaneous -Post Debridement (cm) - Length 4.0 4.5 6.0 -Post Debridement (cm) - Width 5.5 5.4 5.5 -Post Debridement (cm) - Depth 0.1 0.1 0.1 -Total Square (Post) (cm) 22.00 24.30 33.00 -Area of Debridement (cm) - Length 4.0 4.5 6.0 -Area of Debridement (cm) - Width 5.5 5.4 5.5 -Total Square (Area) (cm) 22.00 24.30 33.00 -Tunneling No No No -Undermining/Tunneling No No No -Circular Undermining No No No -Wound/Ulcer Outcome Not Healed Not Healed Not Healed -Ulcer Cleansing Rinsed/ Rinsed/ Rinsed/ Irrigated with Irrigated with Irrigated with Saline Saline Saline -Foul Odor after Cleansing No No No -Bioengineered Tissue No No No -Bleeding Controlled with Pressure Pressure Pressure -Treatment Response Procedure Procedure Procedure Tolerated Well Tolerated Well Tolerated Well -Offloading No No No -Debridement - Subq, 1st 20sq cm Yes Yes Yes -Debridement, SubQ, ea addt'l 20sq cm 1 1 1 or part thereof #7 right medial sinclair -Time 11:14 11:18 11:17 -Correct Patient Yes Yes Yes -Correct Side, Site, Position Yes Yes Yes -Correct Procedure Yes Yes Yes -Procedure Performed Yes Yes Yes -Type of Procedure Debridement Debridement Debridement -Clinical Debridement Subcutaneous Subcutaneous Subcutaneous -Tissue Removed Subcutaneous Subcutaneous Subcutaneous -Post Debridement (cm) - Length 1.5 1.5 1.4 -Post Debridement (cm) - Width 0.5 0.4 0.4 -Post Debridement (cm) - Depth 0.2 0.2 0.2 -Total Square (Post) (cm) 0.75 0.60 0.56 -Area of Debridement (cm) - Length 1.5 1.5 1.4 -Area of Debridement (cm) - Width 0.5 0.4 0.4 -Total Square (Area) (cm) 0.75 0.60 0.56 -Tunneling No No No -Undermining/Tunneling No No No -Circular Undermining No No No -Wound/Ulcer Outcome Not Healed Not Healed Not Healed -Ulcer Cleansing Rinsed/ Rinsed/ Rinsed/ Irrigated with Irrigated with Irrigated with Saline Saline Saline -Foul Odor after Cleansing No No No -Bioengineered Tissue No No No -Bleeding Controlled with Pressure Pressure Pressure -Treatment Response Procedure Procedure Procedure Tolerated Well Tolerated Well Tolerated Well -Offloading No No No -Debridement - Subq, 1st 20sq cm No No No #6 right lateral sinclair -Time 11:15 11:19 11:17 -Correct Patient Yes Yes Yes -Correct Side, Site, Position Yes Yes Yes -Correct Procedure Yes Yes Yes -Procedure Performed Yes Yes Yes -Type of Procedure Debridement Debridement Debridement -Clinical Debridement Subcutaneous Subcutaneous Subcutaneous -Tissue Removed Subcutaneous Subcutaneous Subcutaneous -Post Debridement (cm) - Length 2.5 2.0 2.0 -Post Debridement (cm) - Width 0.9 0.8 0.8 -Post Debridement (cm) - Depth 0.2 0.2 0.2 -Total Square (Post) (cm) 2.25 1.60 1.60 -Area of Debridement (cm) - Length 2.5 2.0 2.0 -Area of Debridement (cm) - Width 0.9 0.8 0.8 -Total Square (Area) (cm) 2.25 1.60 1.60 -Tunneling No No No -Undermining/Tunneling No No No -Circular Undermining No No No -Wound/Ulcer Outcome Not Healed Not Healed Not Healed -Ulcer Cleansing Rinsed/ Rinsed/ Rinsed/ Irrigated with Irrigated with Irrigated with Saline Saline Saline -Foul Odor after Cleansing No No No -Bioengineered Tissue No No No -Bleeding Controlled with Pressure Pressure Pressure -Treatment Response Procedure Procedure Procedure Tolerated Well Tolerated Well Tolerated Well -Offloading No No No -Debridement - Subq, 1st 20sq cm No No No Pain Scale: 0-10 Numeric Is Patient Pain Free? Yes Yes Yes - Nurse 3 - General Ulcer D/C NN Start: 12/01/22 10:07 Freq: Status: Active Protocol: Activity Type Activity Date Activity User E-sign Co-sign Detail Recorded Client Recorded Date Recorded By Document 12/01/22 11:43 [facility] [id number] 12/01/22 11:45 BMF Document 12/08/22 11:43 DL [id number] 12/08/22 11:46 DL Document 12/15/22 11:32 DL [id number] 12/15/22 11:36 DL 12/01/22 12/08/22 12/15/22 11:43 11:43 11:32 Wound Care Center Nurse 3 #8- RLE/ANKLE -Ulcer Cleansing Rinsed/ Rinsed/ Rinsed/ Irrigated with Irrigated with Irrigated with Saline Saline Saline -Foul Odor after Cleansing No No No -Primary Dressing Applied Aquacel Extra Aquacel Extra, Aquacel Extra, Optilok 6.5x10 Optilok 6.5x10 -Other Dressing BACTROBAN bactroban bactroban -Primary Dressing Covered/Secured with Dry Gauze & Dry Gauze & Dry Gauze & Roll Gauze, Roll Gauze, Roll Gauze, Secured with Secured with Secured with Tape Tape Tape -Other Covering ABD -Aquacel Extra 1 1 1 -Optilok 6.5x10 1 1 #7 right medial sinclair -Ulcer Cleansing Rinsed/ Rinsed/ Rinsed/ Irrigated with Irrigated with Irrigated with Saline Saline Saline -Foul Odor after Cleansing No No No -Primary Dressing Applied Aquacel Extra Optilok 6.5x10 -Other Dressing BACTROBAN aquacel/ aquacel ex/ bactroban bactroban -Primary Dressing Covered/Secured with Dry Gauze & Dry Gauze,Dry Dry Gauze & Roll Gauze, Gauze & Roll Roll Gauze, Secured with Gauze,Secured Secured with Tape with Tape Tape -Aquacel Extra 0 -Optilok 6.5x10 1 #6 right lateral sinclair -Ulcer Cleansing Rinsed/ Rinsed/ Rinsed/ Irrigated with Irrigated with Irrigated with Saline Saline Saline -Foul Odor after Cleansing No No No -Primary Dressing Applied Aquacel Extra Optilok 6.5x10 -Other Dressing BACTROBAN aquacel/ bactroban/ bactroban aquacel ex -Primary Dressing Covered/Secured with Dry Gauze & Dry Gauze,Dry Dry Gauze & Roll Gauze, Gauze & Roll Roll Gauze, Secured with Gauze,Secured Secured with Tape with Tape Tape -Aquacel Extra 0 -Optilok 6.5x10 1 BLE -Tubular Bandage Double Layer -Size of Tubigrip Used Size F -Size F ($) 2 -Other REAPPLIED PTS tubigrips OWN DOUBLE LAYER TUBIS Treatment Response Procedure Procedure Tolerated Well Tolerated Well Pain Scale: 0-10 Numeric Is Patient Pain Free? Yes Yes Yes WC - Visit Discharge Discharge Condition Stable Stable Stable Ambulatory Status Wheelchair Wheelchair Wheelchair Transportation ECF ECf trans Facility Type Chemical Unit Operator Care Chemical Unit Operator Care Facility Facility Other ASSISTED LVING Orders Sent Yes Yes Additional Wound Wound debrided: Right lower extremity (medial) Type of Debridement: Excisional debridement Anesthesia Used: 5% Lidocaine Gel Depth: Down to and including healthy tissue and in the subcutaneous layer Percentage of wound debrided: 100 Instrument Used: 5mm curette Tissue Removed: Slough and devitalized tissue Severity: Fat Layer Exposed Amount of bleeding with debridement: Mild Bleeding Controlled with: Pressure Patient tolerated procedure: Patient tolerated procedure well Additional Wound Wound debrided: Right foot/medial ankle Type of Debridement: Excisional debridement Anesthesia Used: 5% Lidocaine Gel Depth: Down to and including healthy tissue and in the subcutaneous layer Percentage of wound debrided: 100 Instrument Used: 5mm curette Tissue Removed: Slough and devitalized tissue Severity: Fat Layer Exposed Amount of bleeding with debridement: Mild Bleeding Controlled with: Pressure Patient tolerated procedure: Patient tolerated procedure well Assessment/Plan Assessment/Plan (1) Ulcer of left lower extremity with fat layer exposed: CODE(S): L97.922 - Non-pressure chronic ulcer of unspecified part of left lower leg with fat layer exposed (2) Ulcer of right lower extremity with fat layer exposed: CODE(S): L97.912 - Non-pressure chronic ulcer of unspecified part of right lower leg with fat layer exposed (3) Ulcer of right foot with fat layer exposed: CODE(S): L97.512 - Non-pressure chronic ulcer of other part of right foot with fat layer exposed (4) Venous insufficiency of both lower extremities: CODE(S): I87.2 - Venous insufficiency (chronic) (peripheral) (5) Borderline type 2 diabetes mellitus: CODE(S): R73.03 - Prediabetes (6) Lymphedema: CODE(S): I89.0 - Lymphedema, not elsewhere classified PLAN: Plan Debridement done as documented above, procedure was well-tolerated. Stable ulcers, no significant change. Continues to have significant bilateral lower extremity edema and he is yet to receive his lymphedema pump. Chronic history of lymphedema. Has been utilizing compression, leg elevation and exercise without significant improvement. We had been awaiting cardiology clearance for lymphedema pump which he finally got in September. Continue Aquacel daily to all ulcers and cover with superabsorbent dressing. Mupirocin only to leg ulcers. Change medial ankle twice daily due to drainage. Double layer Tubigrip for edema management. Elevate lower extremities when seated and in bed. Protein supplements twice daily. His questions were answered and he was advised to call with any further questions or concerns. Follow-up in 2 weeks. This note was generated with [employer] dictation software. It may contain incorrect words, spelling, and punctuation that were not noted in checking the note before signing.
== END 2022-12-25 23:59 | disposition home or self-care (01) ==
LOC: WC 10:30
PROVIDERS: PCP Internal Medicine; Visit Provider Internal Medicine
DX: L97.512 Non-pressure chronic ulcer of other part of right foot with fat layer exposed (principal); L97.922 Non-pressure chronic ulcer of unspecified part of left lower leg with fat layer exposed; L97.312 Non-pressure chronic ulcer of right ankle with fat layer exposed; I89.0 Lymphedema, not elsewhere classified; R73.03 Prediabetes; R60.0 Localized edema; I87.2 Venous insufficiency (chronic) (peripheral)
CPT/HCPCS: 11042; 11045

== ENCOUNTER 2023-01-19 10:30 | Outpatient (RCR) | payer MEDICARE, MEDICAID, SELFPAY ==
[2022-12-26 00:25] VITALS: BP 114/53; PULSE 74; RESP 16; TEMP 36.6
[2022-12-29 11:02] VITALS: BP 131/72; PULSE 70; RESP 16; TEMP 36.2
--- NOTE | 2022-12-29 12:51 | PCM.WC.PN ---
History of Present Illness Date of Service: 12/29/22 Chief Complaint: Bilateral lower extremity ulcers History of Wound: Mr. Boles is an 82-year-old currently residing at [facility] who presents due to nonhealing bilateral lower extremity ulceration. Has been present for some months. Has had some dressing changes done at his facility without any significant improvement. 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 Not very active. Significant bilateral lower extremity edema. He denies chills, fever or feeling of unwell. He states that his appetite is good. Progress of Wound: Right medial foods with some worsening, right leg ulcers with some improvement since his last visit. Objective Data Objective Data Vital Signs: Vital Signs Temp Pulse Resp BP O2 Del Method 97.2 F L 70 16 131/72 H Room Air 12/29/22 11:02 12/29/22 11:02 12/29/22 11:02 12/29/22 11:02 12/29/22 11:02 Oxygen Delivery Method Room Air Charges/Coding Procedures Integumentary 111xxx-113xx: 80798 Jaye subq tissue 20 sq cm/< Add On Codes: 81341 Jaye subq tissue add-on (x1. Additional square centimeter debrided, please refer to clinical note.) Physical Exam Const alert, oriented x3 and no apparent distress General Appearance: cooperative, comfortable and well kempt HEENT normocephalic and head/scalp atraumatic Eyes EOMs intact bilaterally General Eye: normal appearance of both eyes Neck full ROM General: normal visual inspection Resp normal respiratory effort Effort and Inspection: able to speak in complete sentences Extremity General Extremity: edema Skin Wounds: wounds noted Neuro oriented x3, CN's II-XII intact bilaterally, moves all extremities and no focal motor deficits Psych mental status grossly normal, thought process normal, cooperative and affect normal Debridement Note Debridement Note Wound debrided: Right lower extremity lateral cluster Type of Debridement: Excisional debridement Anesthesia Used: 5% Lidocaine Gel Depth: Down to and including healthy tissue and in the subcutaneous layer Percentage of wound debrided: 100 Severity: Fat Layer Exposed Amount of bleeding with debridement: Mild Bleeding Controlled with: Pressure Patient tolerated procedure: Patient tolerated procedure well Post-Debridement Measurements and Additional Note: Post-Debridement Measurements/Treatment WC - Nurse 1 - General Ulcer Assessment Start: 12/29/22 11:02 Freq: Status: Active Protocol: SAWYER Activity Type Activity Date Activity User E-sign Co-sign Detail Recorded Client Recorded Date Recorded By Document 12/29/22 11:02 [facility] [id number] 12/29/22 11:10 [facility] 12/29/22 11:02 - Today's Visit Information Type of service Follow-up Visit (Physician/[employer] ) Arrival Mode Wheelchair Transfer Assistance None Patient Identification Verified (Name & Yes ) Patient Requires Transmission-Based No Precautions Vital Signs Temperature (97.8 F-99.1 F) 97.2 F L Temperature Source Temporal Pulse Rate (60-100) 70 Pulse Location Monitor Respiratory Rate (12-18) 16 Respiratory rate source Observation Oxygen Delivery Method Room Air Blood Pressure (90/60-120/80) 131/72 H Blood Pressure Mean (mm Hg) 91 Source Monitor Position Sitting Blood Pressure Location Left Forearm History Since Last Visit- (Skip if this is Patient's initial visit) Have you changed medications since your No last visit? Any new allergies or adverse reactions No Had a fall/change in ADL's that may No increase risk of falls Signs or symptoms of abuse and/or No neglect since last visit Have you been in the hospital since your No last visit? Has dressing in place as prescribed Yes Has compression in place as prescribed Yes Has offloadiing in place as prescribed N/A Experienced any changes in pain level or No management Left Footwear Regular Shoe Right Footwear Regular Shoe Pain Scale: 0-10 Numeric Is Patient Pain Free? Yes - Nurse 1 - General Ulcer Measurement Start: 12/29/22 11:02 Freq: Status: Active Protocol: Activity Type Activity Date Activity User E-sign Co-sign Detail Recorded Client Recorded Date Recorded By Document 12/29/22 11:02 [facility] [id number] 12/29/22 11:10 [facility] 12/29/22 11:02 Wound Center Nurse 1 #8- RLE/ANKLE -Combined with other wound No -Current Size (cm) - Length 7.8 -Current Size (cm) - Width 7 -Current Size (cm) - Depth 0.1 -Total Square Cm 54.6 -Photo Taken No -Epithelialization None Present -Tunneling No -Undermining/Tunneling No -Circular Undermining No -Exudate Amt Large -Exudate Type Serosanguineous -Wound Margin Flat & Intact -Granulation Amt Medium (34-66%) -Granulation Quality [place] -Slough/Fibrin Yes -Necrosis Amt Medium (34-66%) -Necrotic Tissue Type Adherent Slough -Texture ([place]-wound Skin Appearance) Assessed, Scarring -Moisture ([place]-wound Skin Appearance) Assessed,Dry/ Scaly -Color ([place]-wound Skin Appearance) Assessed -Temperature ([place]-wound Skin No Abnormality Appearance) (Pt Warm) -Tenderness on Palpation ([place]-wound No Skin Appearance) -Ulcer Cleansing Rinsed/ Irrigated with Saline -Foul Odor after Cleansing No -Anesthetic Used 5% Lidocaine Gel #7 right medial sinclair -Combined with other wound No -Current Size (cm) - Length 0.1 -Current Size (cm) - Width 0.1 -Current Size (cm) - Depth 0.1 -Total Square Cm 0.01 -Date of Last Picture (Recall this 12/29/22 field) -Photo Taken Yes -Epithelialization Large 67-100% -Texture ([place]-wound Skin Appearance) Assessed, Scarring -Moisture ([place]-wound Skin Appearance) Assessed,Dry/ Scaly -Color ([place]-wound Skin Appearance) Assessed -Temperature ([place]-wound Skin No Abnormality Appearance) (Pt Warm) -Tenderness on Palpation ([place]-wound No Skin Appearance) -Ulcer Cleansing Rinsed/ Irrigated with Saline -Foul Odor after Cleansing No -Anesthetic Used 5% Lidocaine Gel #6 right lateral sinclair -Combined with other wound No -Current Size (cm) - Length 1.7 -Current Size (cm) - Width 0.6 -Current Size (cm) - Depth 0.2 -Total Square Cm 1.02 -Photo Taken No -Epithelialization Small 1-33% -Tunneling No -Undermining/Tunneling No -Circular Undermining No -Exudate Amt Medium -Exudate Type Serosanguineous -Wound Margin Distinct, Outline Attached -Granulation Amt Large (67-100%) -Granulation Quality Red -Slough/Fibrin Yes -Necrosis Amt Small (1-33%) -Necrotic Tissue Type Adherent Slough -Texture ([place]-wound Skin Appearance) Assessed, Scarring -Moisture ([place]-wound Skin Appearance) Assessed,Dry/ Scaly -Color ([place]-wound Skin Appearance) Assessed -Temperature ([place]-wound Skin No Abnormality Appearance) (Pt Warm) -Tenderness on Palpation ([place]-wound No Skin Appearance) -Ulcer Cleansing Rinsed/ Irrigated with Saline -Foul Odor after Cleansing No -Anesthetic Used 5% Lidocaine Gel Lower Limb Edema Present Yes Right Calf (cm) 49.8 Right Ankle (cm) 34.1 WC - Nurse 2 - General Ulcer CM Notes Start: 12/29/22 11:02 Freq: Status: Active Protocol: Activity Type Activity Date Activity User E-sign Co-sign Detail Recorded Client Recorded Date Recorded By Document 12/29/22 11:33 [facility] [id number] 12/29/22 11:40 [facility] 12/29/22 11:33 Wound Center Nurse 2 #8- RLE/ANKLE -Time 11:39 -Correct Patient Yes -Correct Side, Site, Position Yes -Correct Procedure Yes -Procedure Performed Yes -Type of Procedure Debridement -Clinical Debridement Subcutaneous -Tissue Removed Subcutaneous -Post Debridement (cm) - Length 7.0 -Post Debridement (cm) - Width 5.0 -Post Debridement (cm) - Depth 0.1 -Total Square (Post) (cm) 35.00 -Area of Debridement (cm) - Length 7.0 -Area of Debridement (cm) - Width 5.0 -Total Square (Area) (cm) 35.00 -Tunneling No -Undermining/Tunneling No -Circular Undermining No -Wound/Ulcer Outcome Not Healed -Ulcer Cleansing Rinsed/ Irrigated with Saline -Foul Odor after Cleansing No -Bioengineered Tissue No -Bleeding Controlled with Pressure -Treatment Response Procedure Tolerated Well -Offloading No -Debridement - Subq, 1st 20sq cm Yes -Debridement, SubQ, ea addt'l 20sq cm 1 or part thereof #7 right medial sinclair -Time 11:36 -Correct Patient Yes -Correct Side, Site, Position Yes -Correct Procedure Yes -Procedure Performed Yes -Type of Procedure Debridement -Clinical Debridement Subcutaneous -Tissue Removed Subcutaneous -Post Debridement (cm) - Length 1.1 -Post Debridement (cm) - Width 0.4 -Post Debridement (cm) - Depth 0.2 -Total Square (Post) (cm) 0.44 -Area of Debridement (cm) - Length 1.1 -Area of Debridement (cm) - Width 0.4 -Total Square (Area) (cm) 0.44 -Tunneling No -Undermining/Tunneling No -Circular Undermining No -Wound/Ulcer Outcome Not Healed -Ulcer Cleansing Rinsed/ Irrigated with Saline -Foul Odor after Cleansing No -Bioengineered Tissue No -Bleeding Controlled with Pressure -Treatment Response Procedure Tolerated Well -Offloading No -Debridement - Subq, 1st 20sq cm No #6 right lateral sinclair -Time 11:36 -Correct Patient Yes -Correct Side, Site, Position Yes -Correct Procedure Yes -Procedure Performed Yes -Type of Procedure Debridement -Clinical Debridement Subcutaneous -Tissue Removed Subcutaneous -Post Debridement (cm) - Length 1.6 -Post Debridement (cm) - Width 0.7 -Post Debridement (cm) - Depth 0.2 -Total Square (Post) (cm) 1.12 -Area of Debridement (cm) - Length 1.6 -Area of Debridement (cm) - Width 0.7 -Total Square (Area) (cm) 1.12 -Tunneling No -Undermining/Tunneling No -Circular Undermining No -Wound/Ulcer Outcome Not Healed -Ulcer Cleansing Rinsed/ Irrigated with Saline -Foul Odor after Cleansing No -Bioengineered Tissue No -Bleeding Controlled with Pressure -Treatment Response Procedure Tolerated Well -Offloading No -Debridement - Subq, 1st 20sq cm No Pain Scale: 0-10 Numeric Is Patient Pain Free? Yes WC - Nurse 3 - General Ulcer D/C NN Start: 12/29/22 11:02 Freq: Status: Active Protocol: Activity Type Activity Date Activity User E-sign Co-sign Detail Recorded Client Recorded Date Recorded By Document 12/29/22 11:53 [facility] [id number] 12/29/22 11:56 [facility] 12/29/22 11:53 Wound Care Center Nurse 3 #8- RLE/ANKLE -Ulcer Cleansing Rinsed/ Irrigated with Saline -Foul Odor after Cleansing No -Primary Dressing Applied Aquacel Extra, Optilok 6.5x10 -Other Dressing BACTROBAN -Primary Dressing Covered/Secured with Dry Gauze & Roll Gauze, Secured with Tape -Aquacel Extra 1 -Optilok 6.5x10 1 #7 right medial sinclair -Ulcer Cleansing Rinsed/ Irrigated with Saline -Foul Odor after Cleansing No -Primary Dressing Applied Aquacel Extra, Optilok 6.5x10 -Other Dressing BACTROBAN -Primary Dressing Covered/Secured with Dry Gauze & Roll Gauze, Secured with Tape -Aquacel Extra 0 -Optilok 6.5x10 1 #6 right lateral sinclair -Ulcer Cleansing Rinsed/ Irrigated with Saline -Foul Odor after Cleansing No -Primary Dressing Applied Aquacel Extra -Other Dressing BACTROBAN -Primary Dressing Covered/Secured with Dry Gauze,Dry Gauze & Roll Gauze,Secured with Tape -Aquacel Extra 0 BLE -Tubular Bandage Double Layer -Size of Tubigrip Used Size F -Size F ($) 4 Treatment Response Procedure Tolerated Well Pain Scale: 0-10 Numeric Is Patient Pain Free? Yes WC - Visit Discharge Discharge Condition Stable Ambulatory Status Wheelchair Transportation [facility]CF Other [place] Additional Wound Wound debrided: Right lower extremity (medial) Type of Debridement: Excisional debridement Anesthesia Used: 5% Lidocaine Gel Depth: Down to and including healthy tissue and in the subcutaneous layer Percentage of wound debrided: 100 Instrument Used: 5mm curette Tissue Removed: Slough and devitalized tissue Severity: Fat Layer Exposed Amount of bleeding with debridement: Mild Bleeding Controlled with: Pressure Patient tolerated procedure: Patient tolerated procedure well Additional Wound Wound debrided: Right foot/medial ankle Type of Debridement: Excisional debridement Anesthesia Used: 5% Lidocaine Gel Depth: Down to and including healthy tissue and in the subcutaneous layer Percentage of wound debrided: 100 Instrument Used: 5mm curette Tissue Removed: Slough and devitalized tissue Severity: Fat Layer Exposed Amount of bleeding with debridement: Mild Bleeding Controlled with: Pressure Patient tolerated procedure: Patient tolerated procedure well Assessment/Plan Assessment/Plan (1) Ulcer of left lower extremity with fat layer exposed: CODE(S): L97.922 - Non-pressure chronic ulcer of unspecified part of left lower leg with fat layer exposed (2) Ulcer of right lower extremity with fat layer exposed: CODE(S): L97.912 - Non-pressure chronic ulcer of unspecified part of right lower leg with fat layer exposed (3) Ulcer of right foot with fat layer exposed: CODE(S): L97.512 - Non-pressure chronic ulcer of other part of right foot with fat layer exposed (4) Venous insufficiency of both lower extremities: CODE(S): I87.2 - Venous insufficiency (chronic) (peripheral) (5) Borderline type 2 diabetes mellitus: CODE(S): R73.03 - Prediabetes (6) Lymphedema: CODE(S): I89.0 - Lymphedema, not elsewhere classified PLAN: Plan Debridement done as documented above, procedure was well-tolerated. Continue Aquacel daily to all ulcers and cover with superabsorbent dressing. Mupirocin to all ulcers. Change medial ankle twice daily due to drainage. Double layer Tubigrip for edema management. Elevate lower extremities when seated and in bed. Protein supplements twice daily. His questions were answered and he was advised to call with any further questions or concerns. Follow-up in 2 weeks. This note was generated with [employer] dictation software. It may contain incorrect words, spelling, and punctuation that were not noted in checking the note before signing.
[2023-01-05 10:40] VITALS: BP 113/52; PULSE 68; RESP 20; TEMP 36.4
--- NOTE | 2023-01-05 12:28 | PN.PCM_ITS ---
History of Present Illness Date of Service: 01/05/23 Chief Complaint: Bilateral lower extremity ulcers History of Wound: Mr. Boles is an 82-year-old currently residing at [facility] who presents due to nonhealing bilateral lower extremity ulceration. Has been present for some months. Has had some dressing changes done at his facility without any significant improvement. 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 Not very active. Significant bilateral lower extremity edema. He denies chills, fever or feeling of unwell. He states that his appetite is good. Progress of Wound: No new concerns at this time. Minimal improvement since last visit. Still has not gotten his Lymphedema pumps. Was told it may take weeks.... Objective Data Objective Data Vital Signs: Vital Signs Temp Pulse Resp BP O2 Del Method 97.5 F L 68 20 H 113/52 L Room Air 01/05/23 10:40 01/05/23 10:40 01/05/23 10:40 01/05/23 10:40 12/29/22 11:02 Oxygen Delivery Method Room Air Charges/Coding Procedures Integumentary 111xxx-113xx: 35314 Jaye subq tissue 20 sq cm/< Add On Codes: 74348 Jaye subq tissue add-on (x1. Additional square centimeter debrided, please refer to clinical note.) Physical Exam Const alert, oriented x3 and no apparent distress General Appearance: cooperative, comfortable and well kempt HEENT normocephalic and head/scalp atraumatic Eyes EOMs intact bilaterally General Eye: normal appearance of both eyes Neck full ROM General: normal visual inspection Resp normal respiratory effort Effort and Inspection: able to speak in complete sentences Extremity General Extremity: edema Skin Wounds: wounds noted Neuro oriented x3, CN's II-XII intact bilaterally, moves all extremities and no focal motor deficits Psych mental status grossly normal, thought process normal, cooperative and affect normal Debridement Note Debridement Note Wound debrided: Right lower extremity lateral cluster Type of Debridement: Excisional debridement Anesthesia Used: 5% Lidocaine Gel Depth: Down to and including healthy tissue and in the subcutaneous layer Percentage of wound debrided: 100 Severity: Fat Layer Exposed Amount of bleeding with debridement: Mild Bleeding Controlled with: Pressure Patient tolerated procedure: Patient tolerated procedure well Post-Debridement Measurements and Additional Note: Post-Debridement Measurements/Treatment WC - Nurse 1 - General Ulcer Assessment Start: 12/29/22 11:02 Freq: Status: Active Protocol: LINDA Activity Type Activity Date Activity User E-sign Co-sign Detail Recorded Client Recorded Date Recorded By Document 12/29/22 11:02 [facility] [id number] 12/29/22 11:10 BM Document 01/05/23 10:40 DL [id number] 01/05/23 10:51 DL 12/29/22 01/05/23 11:02 10:40 - Today's Visit Information Type of service Follow-up Visit Follow-up Visit (Physician/UTILIZATION SPECIALIST (Physician/UTILIZATION SPECIALIST ) ) Arrival Mode Wheelchair Wheelchair Transfer Assistance None Manual Transfer Assist (Other) x2 Patient Identification Verified (Name & Yes Yes ) Patient Requires Transmission-Based No No Precautions Vital Signs Temperature (97.8 F-99.1 F) 97.2 F L 97.5 F L Temperature Source Temporal Temporal Pulse Rate (60-100) 70 68 Pulse Location Monitor Monitor Respiratory Rate (12-18) 16 20 H Respiratory rate source Observation Observation Oxygen Delivery Method Room Air Blood Pressure (90/60-120/80) 131/72 H 113/52 L Blood Pressure Mean (mm Hg) 91 72 Source Monitor Monitor Position Sitting Blood Pressure Location Left Forearm History Since Last Visit- (Skip if this is Patient's initial visit) Have you changed medications since your No No last visit? Any new allergies or adverse reactions No No Had a fall/change in ADL's that may No No increase risk of falls Signs or symptoms of abuse and/or No No neglect since last visit Have you been in the hospital since your No No last visit? Has dressing in place as prescribed Yes Yes Has compression in place as prescribed Yes Yes Has offloadiing in place as prescribed N/A N/A Experienced any changes in pain level or No No management Left Footwear Regular Shoe Right Footwear Regular Shoe Pain Scale: 0-10 Numeric Is Patient Pain Free? Yes Yes [facility] Nurse 1 - General Ulcer Measurement Start: 12/29/22 11:02 Freq: Status: Active Protocol: Activity Type Activity Date Activity User E-sign Co-sign Detail Recorded Client Recorded Date Recorded By Document 12/29/22 11:02 [facility] [id number] 12/29/22 11:10 BMF Document 01/05/23 10:40 DL [id number] 01/05/23 10:51 DL 12/29/22 01/05/23 11:02 10:40 Wound Center Nurse 1 #8- RLE/ANKLE -Combined with other wound No -Current Size (cm) - Length 7.8 4.2 -Current Size (cm) - Width 7 4 -Current Size (cm) - Depth 0.1 0.1 -Total Square Cm 54.6 16.8 -Photo Taken No Yes -Epithelialization None Present -Tunneling No -Undermining/Tunneling No -Circular Undermining No -Exudate Amt Large Medium -Exudate Type Serosanguineous Serosanguineous -Wound Margin Flat & Intact Indistinct, Non -Visible -Granulation Amt Medium (34-66%) Large (67-100%) -Granulation Quality Stedman Stedman -Slough/Fibrin Yes -Necrosis Amt Medium (34-66%) Small (1-33%) -Necrotic Tissue Type Adherent Slough Adherent Slough -Structure Exposed N/A -Texture ([place]-wound Skin Appearance) Assessed, Scarring Scarring -Moisture ([place]-wound Skin Appearance) Assessed,Dry/ Weeping Scaly -Color ([place]-wound Skin Appearance) Assessed Hemosiderin Staining -Temperature ([place]-wound Skin No Abnormality No Abnormality Appearance) (Pt Warm) (Pt Warm) -Tenderness on Palpation ([place]-wound No Yes Skin Appearance) -Ulcer Cleansing Rinsed/ Soap and Water Irrigated with Saline -Foul Odor after Cleansing No Yes, Due to Product Use -Anesthetic Used 5% Lidocaine 5% Lidocaine Gel Gel #7 right medial sinclair -Combined with other wound No -Current Size (cm) - Length 0.1 0.3 -Current Size (cm) - Width 0.1 0.8 -Current Size (cm) - Depth 0.1 0.1 -Total Square Cm 0.01 0.24 -Date of Last Picture (Recall this 12/29/22 field) -Photo Taken Yes Yes -Epithelialization Large 67-100% -Exudate Amt Small -Exudate Type Serosanguineous -Wound Margin Distinct, Outline Attached -Granulation Amt Small (1-33%) -Granulation Quality Stedman -Necrosis Amt Small (1-33%) -Necrotic Tissue Type Adherent Slough -Structure Exposed N/A -Texture ([place]-wound Skin Appearance) Assessed, Scarring Scarring -Moisture ([place]-wound Skin Appearance) Assessed,Dry/ No Abnormality Scaly -Color ([place]-wound Skin Appearance) Assessed Hemosiderin Staining -Temperature ([place]-wound Skin No Abnormality No Abnormality Appearance) (Pt Warm) (Pt Warm) -Tenderness on Palpation ([place]-wound No No Skin Appearance) -Ulcer Cleansing Rinsed/ Soap and Water Irrigated with Saline -Foul Odor after Cleansing No Yes, Due to Product Use -Anesthetic Used 5% Lidocaine 5% Lidocaine Gel Gel #6 right lateral sinclair -Combined with other wound No -Current Size (cm) - Length 1.7 1.2 -Current Size (cm) - Width 0.6 0.7 -Current Size (cm) - Depth 0.2 0.1 -Total Square Cm 1.02 0.84 -Photo Taken No Yes -Epithelialization Small 1-33% -Tunneling No -Undermining/Tunneling No -Circular Undermining No -Exudate Amt Medium Small -Exudate Type Serosanguineous Serosanguineous -Wound Margin Distinct, Distinct, Outline Outline Attached Attached -Granulation Amt Large (67-100%) Small (1-33%) -Granulation Quality Red Stedman -Slough/Fibrin Yes -Necrosis Amt Small (1-33%) Small (1-33%) -Necrotic Tissue Type Adherent Slough Adherent Slough -Structure Exposed N/A -Texture ([place]-wound Skin Appearance) Assessed, Scarring Scarring -Moisture ([place]-wound Skin Appearance) Assessed,Dry/ Dry/Scaly Scaly -Color ([place]-wound Skin Appearance) Assessed Hemosiderin Staining -Temperature ([place]-wound Skin No Abnormality No Abnormality Appearance) (Pt Warm) (Pt Warm) -Tenderness on Palpation ([place]-wound No No Skin Appearance) -Ulcer Cleansing Rinsed/ Soap and Water Irrigated with Saline -Foul Odor after Cleansing No No -Anesthetic Used 5% Lidocaine 5% Lidocaine Gel Gel Lower Limb Edema Present Yes Right Calf (cm) 49.8 46.5 Right Ankle (cm) 34.1 33.5 Left Calf (cm) 44.5 Left Ankle (cm) 36.3 WC - Nurse 2 - General Ulcer CM Notes Start: 12/29/22 11:02 Freq: Status: Active Protocol: Activity Type Activity Date Activity User E-sign Co-sign Detail Recorded Client Recorded Date Recorded By Document 12/29/22 11:33 MW [id number] 12/29/22 11:40 MW Edit Result 12/29/22 11:33 MW (1) [id number] 12/30/22 06:41 PL Document 01/05/23 11:04 MW [id number] 01/05/23 11:10 MW (1) #8- RLE/ANKLE - Debridement, SubQ, ea addt'l 20sq cm 1 => 2 or part thereof 12/29/22 01/05/23 11:33 11:04 Wound Center Nurse 2 #8- RLE/ANKLE -Time 11:39 11:05 -Correct Patient Yes Yes -Correct Side, Site, Position Yes Yes -Correct Procedure Yes Yes -Procedure Performed Yes Yes -Type of Procedure Debridement Debridement -Clinical Debridement Subcutaneous Subcutaneous -Tissue Removed Subcutaneous Subcutaneous -Post Debridement (cm) - Length 7.0 5.5 -Post Debridement (cm) - Width 5.0 5.0 -Post Debridement (cm) - Depth 0.1 0.1 -Total Square (Post) (cm) 35.00 27.50 -Area of Debridement (cm) - Length 7.0 5.5 -Area of Debridement (cm) - Width 5.0 5.0 -Total Square (Area) (cm) 35.00 27.50 -Tunneling No No -Undermining/Tunneling No No -Circular Undermining No No -Wound/Ulcer Outcome Not Healed Not Healed -Ulcer Cleansing Rinsed/ Rinsed/ Irrigated with Irrigated with Saline Saline -Foul Odor after Cleansing No No -Bioengineered Tissue No No -Bleeding Controlled with Pressure Pressure -Treatment Response Procedure Procedure Tolerated Well Tolerated Well -Offloading No No -Debridement - Subq, 1st 20sq cm Yes Yes -Debridement, SubQ, ea addt'l 20sq cm 2 1 or part thereof #7 right medial sinclair -Time 11:36 11:05 -Correct Patient Yes Yes -Correct Side, Site, Position Yes Yes -Correct Procedure Yes Yes -Procedure Performed Yes Yes -Type of Procedure Debridement Debridement -Clinical Debridement Subcutaneous Subcutaneous -Tissue Removed Subcutaneous Subcutaneous -Post Debridement (cm) - Length 1.1 1.0 -Post Debridement (cm) - Width 0.4 0.5 -Post Debridement (cm) - Depth 0.2 0.2 -Total Square (Post) (cm) 0.44 0.50 -Area of Debridement (cm) - Length 1.1 1.0 -Area of Debridement (cm) - Width 0.4 0.5 -Total Square (Area) (cm) 0.44 0.50 -Tunneling No No -Undermining/Tunneling No No -Circular Undermining No No -Wound/Ulcer Outcome Not Healed Not Healed -Ulcer Cleansing Rinsed/ Rinsed/ Irrigated with Irrigated with Saline Saline -Foul Odor after Cleansing No No -Bioengineered Tissue No No -Bleeding Controlled with Pressure Pressure -Treatment Response Procedure Procedure Tolerated Well Tolerated Well -Offloading No No -Debridement - Subq, 1st 20sq cm No No #6 right lateral sinclair -Time 11:36 11:05 -Correct Patient Yes Yes -Correct Side, Site, Position Yes Yes -Correct Procedure Yes Yes -Procedure Performed Yes Yes -Type of Procedure Debridement Debridement -Clinical Debridement Subcutaneous Subcutaneous -Tissue Removed Subcutaneous Subcutaneous -Post Debridement (cm) - Length 1.6 1.5 -Post Debridement (cm) - Width 0.7 0.7 -Post Debridement (cm) - Depth 0.2 0.2 -Total Square (Post) (cm) 1.12 1.05 -Area of Debridement (cm) - Length 1.6 1.5 -Area of Debridement (cm) - Width 0.7 0.7 -Total Square (Area) (cm) 1.12 1.05 -Tunneling No No -Undermining/Tunneling No No -Circular Undermining No No -Wound/Ulcer Outcome Not Healed Not Healed -Ulcer Cleansing Rinsed/ Rinsed/ Irrigated with Irrigated with Saline Saline -Foul Odor after Cleansing No No -Bioengineered Tissue No No -Bleeding Controlled with Pressure -Treatment Response Procedure Procedure Tolerated Well Tolerated Well -Offloading No -Debridement - Subq, 1st 20sq cm No No Pain Scale: 0-10 Numeric Is Patient Pain Free? Yes Yes - Nurse 3 - General Ulcer D/C NN Start: 12/29/22 11:02 Freq: Status: Active Protocol: Activity Type Activity Date Activity User E-sign Co-sign Detail Recorded Client Recorded Date Recorded By Document 12/29/22 11:53 [facility] [id number] 12/29/22 11:56 BMF Document 01/05/23 11:41 RB [id number] 01/05/23 11:43 RB 12/29/22 01/05/23 11:53 11:41 Wound Care Center Nurse 3 #8- RLE/ANKLE -Ulcer Cleansing Rinsed/ Wound Cleanser Irrigated with Saline -Foul Odor after Cleansing No -Primary Dressing Applied Aquacel Extra, Aquacel Extra, Optilok 6.5x10 Optilok 6.5x10 -Other Dressing BACTROBAN bactroban, aquacel, superabsorber -Primary Dressing Covered/Secured with Dry Gauze & Dry Gauze & Roll Gauze, Roll Gauze, Secured with Secured with Tape Tape -Aquacel Extra 1 1 -Optilok 6.5x10 1 1 #7 right medial sinclair -Ulcer Cleansing Rinsed/ Irrigated with Saline -Foul Odor after Cleansing No -Primary Dressing Applied Aquacel Extra, Optilok 6.5x10 Optilok 6.5x10 -Other Dressing BACTROBAN bactroban -Primary Dressing Covered/Secured with Dry Gauze & Dry Gauze & Roll Gauze, Roll Gauze, Secured with Secured with Tape Tape -Aquacel Extra 0 -Optilok 6.5x10 1 1 #6 right lateral sinclair -Ulcer Cleansing Rinsed/ Rinsed/ Irrigated with Irrigated with Saline Saline -Foul Odor after Cleansing No -Primary Dressing Applied Aquacel Extra Optilok 6.5x10 -Other Dressing BACTROBAN bactroban -Primary Dressing Covered/Secured with Dry Gauze,Dry Dry Gauze & Gauze & Roll Roll Gauze, Gauze,Secured Secured with with Tape Tape -Aquacel Extra 0 -Optilok 6.5x10 1 Right -Multi-Layered Wrap Application Multi-Layer Comp - Right ($ ) Left -Other double layer tubigrip BLE -Tubular Bandage Double Layer -Size of Tubigrip Used Size F -Size F ($) 4 Treatment Response Procedure Procedure Tolerated Well Tolerated Well Pain Scale: 0-10 Numeric Is Patient Pain Free? Yes Yes WC - Visit Discharge Discharge Condition Stable Stable Ambulatory Status Wheelchair Wheelchair Transportation [facility] half-way transport Medication Reconcilliation completed & No provided to patient/care provider Clinical Summary of Care Provided Yes Other AL Additional Wound Wound debrided: Right lower extremity (medial) Type of Debridement: Excisional debridement Anesthesia Used: 5% Lidocaine Gel Depth: Down to and including healthy tissue and in the subcutaneous layer Percentage of wound debrided: 100 Instrument Used: 5mm curette Tissue Removed: Slough and devitalized tissue Severity: Fat Layer Exposed Amount of bleeding with debridement: Mild Bleeding Controlled with: Pressure Patient tolerated procedure: Patient tolerated procedure well Additional Wound Wound debrided: Right foot/medial ankle Type of Debridement: Excisional debridement Anesthesia Used: 5% Lidocaine Gel Depth: Down to and including healthy tissue and in the subcutaneous layer Percentage of wound debrided: 100 Instrument Used: 5mm curette Tissue Removed: Slough and devitalized tissue Severity: Fat Layer Exposed Amount of bleeding with debridement: Mild Bleeding Controlled with: Pressure Patient tolerated procedure: Patient tolerated procedure well Assessment/Plan Assessment/Plan (1) Ulcer of left lower extremity with fat layer exposed: CODE(S): L97.922 - Non-pressure chronic ulcer of unspecified part of left lower leg with fat layer exposed (2) Ulcer of right lower extremity with fat layer exposed: CODE(S): L97.912 - Non-pressure chronic ulcer of unspecified part of right lower leg with fat layer exposed (3) Ulcer of right foot with fat layer exposed: CODE(S): L97.512 - Non-pressure chronic ulcer of other part of right foot with fat layer exposed (4) Venous insufficiency of both lower extremities: CODE(S): I87.2 - Venous insufficiency (chronic) (peripheral) (5) Borderline type 2 diabetes mellitus: CODE(S): R73.03 - Prediabetes (6) Lymphedema: CODE(S): I89.0 - Lymphedema, not elsewhere classified PLAN: Plan Debridement done as documented above, procedure was well-tolerated. Continue Aquacel, mupirocin and superabsorbent dressing to all ulcers. 3M wraps for edema management. Change on Monday at Facility. Come in for Nurse visit and change on Monday. Elevate lower extremities when seated and in bed. Protein supplements twice daily. His questions were answered and he was advised to call with any further questions or concerns. Follow-up in 1 week. This note was generated with [employer] software. It may contain incorrect words, spelling, and punctuation that were not noted in checking the note before signing.
[2023-01-12 10:27] VITALS: RESP 18; TEMP 36.1
--- NOTE | 2023-01-12 13:15 | PCM.WC.PN ---
History of Present Illness Date of Service: 01/12/23 Chief Complaint: Bilateral lower extremity ulcers History of Wound: Mr. Boles is an 82-year-old currently residing at [facility] [place] who presents due to nonhealing bilateral lower extremity ulceration. Has been present for some months. Has had some dressing changes done at his facility without any significant improvement. 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 Not very active. Significant bilateral lower extremity edema. He denies chills, fever or feeling of unwell. He states that his appetite is good. Progress of Wound: Lower extremity edema with some improvement following 3M compression. Leg ulcers also show improvement however, medial foot/ankle with increased drainage and worsening. Objective Data Objective Data Vital Signs: Vital Signs Temp Pulse Resp BP O2 Del Method 97 F L 68 18 113/52 L Room Air 01/12/23 10:27 01/05/23 10:40 01/12/23 10:27 01/05/23 10:40 12/29/22 11:02 Oxygen Delivery Method Room Air Charges/Coding Procedures Integumentary 111xxx-113xx: [id number] Jaye subq tissue 20 sq cm/< Add On Codes: 54418 Jaye subq tissue add-on (x2. Additional square centimeter debrided, please refer to clinical note.) Physical Exam Const alert, oriented x3 and no apparent distress General Appearance: cooperative, comfortable and well kempt HEENT normocephalic and head/scalp atraumatic Eyes EOMs intact bilaterally General Eye: normal appearance of both eyes Neck full ROM General: normal visual inspection Resp normal respiratory effort Effort and Inspection: able to speak in complete sentences Extremity General Extremity: edema Skin Wounds: wounds noted Neuro oriented x3, CN's II-XII intact bilaterally, moves all extremities and no focal motor deficits Psych mental status grossly normal, thought process normal, cooperative and affect normal Debridement Note Debridement Note Wound debrided: Right lower extremity lateral cluster Type of Debridement: Excisional debridement Anesthesia Used: 5% Lidocaine Gel Depth: Down to and including healthy tissue and in the subcutaneous layer Percentage of wound debrided: 100 Severity: Fat Layer Exposed Amount of bleeding with debridement: Mild Bleeding Controlled with: Pressure Patient tolerated procedure: Patient tolerated procedure well Post-Debridement Measurements and Additional Note: Post-Debridement Measurements/Treatment WC - Nurse 1 - General Ulcer Assessment Start: 12/29/22 11:02 Freq: Status: Active Protocol: WC.LOWEXT Activity Type Activity Date Activity User E-sign Co-sign Detail Recorded Client Recorded Date Recorded By Document 12/29/22 11:02 [facility] [id number] 12/29/22 11:10 BMF Document 01/05/23 10:40 DL [id number] 01/05/23 10:51 DL Document 01/09/23 15:23 BM [id number] 01/09/23 15:26 BMF Document 01/12/23 10:27 RB [id number] 01/12/23 10:49 RB 12/29/22 01/05/23 01/09/23 11:02 10:40 15:23 WC - Today's Visit Information Type of service Follow-up Visit Follow-up Visit Follow-up Visit (Physician/MANAGER RETAIL SALES (Physician/MANAGER RETAIL SALES (Physician/MANAGER RETAIL SALES ) ) ) Arrival Mode Wheelchair Wheelchair Wheelchair Transfer Assistance None Manual None Transfer Assist (Other) x2 Patient Identification Verified (Name & Yes Yes Yes ) Patient Requires Transmission-Based No No No Precautions Vital Signs Temperature (97.8 F-99.1 F) 97.2 F L 97.5 F L Temperature Source Temporal Temporal Pulse Rate (60-100) 70 68 Pulse Location Monitor Monitor Respiratory Rate (12-18) 16 20 H Respiratory rate source Observation Observation Oxygen Delivery Method Room Air Blood Pressure (90/60-120/80) 131/72 H 113/52 L Blood Pressure Mean (mm Hg) 91 72 Source Monitor Monitor Position Sitting Blood Pressure Location Left Forearm History Since Last Visit- (Skip if this is Patient's initial visit) Have you changed medications since your No No No last visit? Any new allergies or adverse reactions No No No Had a fall/change in ADL's that may No No No increase risk of falls Signs or symptoms of abuse and/or No No No neglect since last visit Have you been in the hospital since your No No No last visit? Has dressing in place as prescribed Yes Yes Yes Has compression in place as prescribed Yes Yes Yes Has offloadiing in place as prescribed N/A N/A N/A Experienced any changes in pain level or No No No management Left Footwear Regular Shoe Regular Shoe Right Footwear Regular Shoe Regular Shoe Pain Scale: 0-10 Numeric Is Patient Pain Free? Yes Yes Yes 01/12/23 10:27 WC - Today's Visit Information Type of service Follow-up Visit (Physician/MANAGER RETAIL SALES ) Arrival Mode Wheelchair Transfer Assistance Manual Transfer Assist (Other) Patient Identification Verified (Name & Yes ) Patient Requires Transmission-Based No Precautions Vital Signs Temperature (97.8 F-99.1 F) 97 F L Temperature Source Temporal Pulse Rate (60-100) Pulse Location Monitor Respiratory Rate (12-18) 18 Respiratory rate source Observation Oxygen Delivery Method Blood Pressure (90/60-120/80) Blood Pressure Mean (mm Hg) Source Monitor Position Sitting Blood Pressure Location Left Arm History Since Last Visit- (Skip if this is Patient's initial visit) Have you changed medications since your No last visit? Any new allergies or adverse reactions No Had a fall/change in ADL's that may No increase risk of falls Signs or symptoms of abuse and/or No neglect since last visit Have you been in the hospital since your No last visit? Has dressing in place as prescribed Yes Has compression in place as prescribed Yes Has offloadiing in place as prescribed No Experienced any changes in pain level or No management Left Footwear Right Footwear Pain Scale: 0-10 Numeric Is Patient Pain Free? Yes - Nurse 1 - General Ulcer Measurement Start: 12/29/22 11:02 Freq: Status: Active Protocol: Activity Type Activity Date Activity User E-sign Co-sign Detail Recorded Client Recorded Date Recorded By Document 12/29/22 11:02 [facility] [id number] 12/29/22 11:10 [facility] Document 01/05/23 10:40 DL [id number] 01/05/23 10:51 DL Document 01/09/23 15:23 [facility] [id number] 01/09/23 15:26 BM Document 01/12/23 10:27 RB [id number] 01/12/23 10:49 RB 12/29/22 01/05/23 01/09/23 11:02 10:40 15:23 Wound Center Nurse 1 #8- RLE/ANKLE -Combined with other wound No -Current Size (cm) - Length 7.8 4.2 -Current Size (cm) - Width 7 4 -Current Size (cm) - Depth 0.1 0.1 -Total Square Cm 54.6 16.8 -Photo Taken No Yes -Epithelialization None Present -Tunneling No -Undermining/Tunneling No -Circular Undermining No -Exudate Amt Large Medium -Exudate Type Serosanguineous Serosanguineous -Wound Margin Flat & Intact Indistinct, Non -Visible -Granulation Amt Medium (34-66%) Large (67-100%) -Granulation Quality [place] -Slough/Fibrin Yes -Necrosis Amt Medium (34-66%) Small (1-33%) -Necrotic Tissue Type Adherent Slough Adherent Slough -Structure Exposed N/A -Texture ([place]-wound Skin Appearance) Assessed, Scarring Scarring -Moisture ([place]-wound Skin Appearance) Assessed,Dry/ Weeping Scaly -Color ([place]-wound Skin Appearance) Assessed Hemosiderin Staining -Temperature ([place]-wound Skin No Abnormality No Abnormality Appearance) (Pt Warm) (Pt Warm) -Tenderness on Palpation ([place]-wound No Yes Skin Appearance) -Ulcer Cleansing Rinsed/ Soap and Water Irrigated with Saline -Foul Odor after Cleansing No Yes, Due to Product Use -Anesthetic Used 5% Lidocaine 5% Lidocaine Gel Gel #7 right medial sinclair -Combined with other wound No -Current Size (cm) - Length 0.1 0.3 -Current Size (cm) - Width 0.1 0.8 -Current Size (cm) - Depth 0.1 0.1 -Total Square Cm 0.01 0.24 -Date of Last Picture (Recall this 12/29/22 field) -Photo Taken Yes Yes -Epithelialization Large 67-100% -Tunneling -Undermining/Tunneling -Circular Undermining -Exudate Amt Small -Exudate Type Serosanguineous -Wound Margin Distinct, Outline Attached -Granulation Amt Small (1-33%) -Granulation Quality [place] -Slough/Fibrin -Necrosis Amt Small (1-33%) -Necrotic Tissue Type Adherent Slough -Structure Exposed N/A -Texture ([place]-wound Skin Appearance) Assessed, Scarring Scarring -Moisture ([place]-wound Skin Appearance) Assessed,Dry/ No Abnormality Scaly -Color ([place]-wound Skin Appearance) Assessed Hemosiderin Staining -Temperature ([place]-wound Skin No Abnormality No Abnormality Appearance) (Pt Warm) (Pt Warm) -Tenderness on Palpation ([place]-wound No No Skin Appearance) -Ulcer Cleansing Rinsed/ Soap and Water Irrigated with Saline -Foul Odor after Cleansing No Yes, Due to Product Use -Anesthetic Used 5% Lidocaine 5% Lidocaine Gel Gel #6 right lateral sinclair -Combined with other wound No -Current Size (cm) - Length 1.7 1.2 -Current Size (cm) - Width 0.6 0.7 -Current Size (cm) - Depth 0.2 0.1 -Total Square Cm 1.02 0.84 -Photo Taken No Yes -Epithelialization Small 1-33% -Tunneling No -Undermining/Tunneling No -Circular Undermining No -Exudate Amt Medium Small -Exudate Type Serosanguineous Serosanguineous -Wound Margin Distinct, Distinct, Outline Outline Attached Attached -Granulation Amt Large (67-100%) Small (1-33%) -Granulation Quality [place] -Slough/Fibrin Yes -Necrosis Amt Small (1-33%) Small (1-33%) -Necrotic Tissue Type Adherent Slough Adherent Slough -Structure Exposed N/A -Texture ([place]-wound Skin Appearance) Assessed, Scarring Scarring -Moisture ([place]-wound Skin Appearance) Assessed,Dry/ Dry/Scaly Scaly -Color ([place]-wound Skin Appearance) Assessed Hemosiderin Staining -Temperature ([place]-wound Skin No Abnormality No Abnormality Appearance) (Pt Warm) (Pt Warm) -Tenderness on Palpation ([place]-wound No No Skin Appearance) -Ulcer Cleansing Rinsed/ Soap and Water Irrigated with Saline -Foul Odor after Cleansing No No -Anesthetic Used 5% Lidocaine 5% Lidocaine Gel Gel Lower Limb Edema Present Yes Yes Right Calf (cm) 49.8 46.5 53 Right Ankle (cm) 34.1 33.5 33.8 Left Calf (cm) 44.5 Left Ankle (cm) 36.3 01/12/23 10:27 Wound Center Nurse 1 #8- RLE/ANKLE -Combined with other wound No -Current Size (cm) - Length 8 -Current Size (cm) - Width 8.5 -Current Size (cm) - Depth 0.1 -Total Square Cm 68.0 -Photo Taken Yes -Epithelialization -Tunneling No -Undermining/Tunneling No -Circular Undermining No -Exudate Amt Large -Exudate Type Serosanguineous -Wound Margin Distinct, Outline Attached -Granulation Amt Medium (34-66%) -Granulation Quality [place] -Slough/Fibrin Yes -Necrosis Amt Medium (34-66%) -Necrotic Tissue Type Adherent Slough -Structure Exposed N/A -Texture ([place]-wound Skin Appearance) Assessed, Localized Edema -Moisture ([place]-wound Skin Appearance) Assessed -Color ([place]-wound Skin Appearance) Assessed -Temperature ([place]-wound Skin No Abnormality Appearance) (Pt Warm) -Tenderness on Palpation ([place]-wound No Skin Appearance) -Ulcer Cleansing Wound Cleanser -Foul Odor after Cleansing No -Anesthetic Used 5% Lidocaine Gel #7 right medial sinclair -Combined with other wound No -Current Size (cm) - Length 0.4 -Current Size (cm) - Width 0.5 -Current Size (cm) - Depth 0.1 -Total Square Cm 0.20 -Date of Last Picture (Recall this field) -Photo Taken Yes -Epithelialization -Tunneling No -Undermining/Tunneling No -Circular Undermining No -Exudate Amt Large -Exudate Type Serosanguineous -Wound Margin Distinct, Outline Attached -Granulation Amt Medium (34-66%) -Granulation Quality [place] -Slough/Fibrin Yes -Necrosis Amt None Present (0 %) -Necrotic Tissue Type Adherent Slough -Structure Exposed N/A -Texture ([place]-wound Skin Appearance) Assessed, Localized Edema -Moisture ([place]-wound Skin Appearance) Assessed -Color ([place]-wound Skin Appearance) Assessed -Temperature ([place]-wound Skin No Abnormality Appearance) (Pt Warm) -Tenderness on Palpation ([place]-wound No Skin Appearance) -Ulcer Cleansing Wound Cleanser -Foul Odor after Cleansing No -Anesthetic Used 5% Lidocaine Gel #6 right lateral sinclair -Combined with other wound No -Current Size (cm) - Length 1 -Current Size (cm) - Width 0.4 -Current Size (cm) - Depth 0.2 -Total Square Cm 0.4 -Photo Taken Yes -Epithelialization -Tunneling No -Undermining/Tunneling No -Circular Undermining No -Exudate Amt Large -Exudate Type Serosanguineous -Wound Margin Distinct, Outline Attached -Granulation Amt Medium (34-66%) -Granulation Quality [place] -Slough/Fibrin Yes -Necrosis Amt Medium (34-66%) -Necrotic Tissue Type Adherent Slough -Structure Exposed N/A -Texture ([place]-wound Skin Appearance) Assessed, Localized Edema -Moisture ([place]-wound Skin Appearance) Assessed -Color ([place]-wound Skin Appearance) Assessed -Temperature ([place]-wound Skin No Abnormality Appearance) (Pt Warm) -Tenderness on Palpation ([place]-wound No Skin Appearance) -Ulcer Cleansing Wound Cleanser -Foul Odor after Cleansing No -Anesthetic Used 5% Lidocaine Gel Lower Limb Edema Present Yes Right Calf (cm) 42 Right Ankle (cm) 33.5 Left Calf (cm) Left Ankle (cm) WC - Nurse 2 - General Ulcer CM Notes Start: 12/29/22 11:02 Freq: Status: Active Protocol: Activity Type Activity Date Activity User E-sign Co-sign Detail Recorded Client Recorded Date Recorded By Document 12/29/22 11:33 MW [id number] 12/29/22 11:40 MW Edit Result 12/29/22 11:33 MW (1) [id number] 12/30/22 06:41 PL Document 01/05/23 11:04 MW [id number] 01/05/23 11:10 MW Document 01/12/23 11:09 JF [id number] 01/12/23 11:19 JF (1) #8- RLE/ANKLE - Debridement, SubQ, ea addt'l 20sq cm 1 => 2 or part thereof 12/29/22 01/05/23 01/12/23 11:33 11:04 11:09 Wound Center Nurse 2 #8- RLE/ANKLE -Time 11:39 11:05 11:10 -Correct Patient Yes Yes Yes -Correct Side, Site, Position Yes Yes Yes -Correct Procedure Yes Yes Yes -Procedure Performed Yes Yes Yes -Type of Procedure Debridement Debridement Debridement -Clinical Debridement Subcutaneous Subcutaneous Subcutaneous -Tissue Removed Subcutaneous Subcutaneous Subcutaneous -Post Debridement (cm) - Length 7.0 5.5 8 -Post Debridement (cm) - Width 5.0 5.0 7 -Post Debridement (cm) - Depth 0.1 0.1 0.1 -Total Square (Post) (cm) 35.00 27.50 56 -Area of Debridement (cm) - Length 7.0 5.5 8 -Area of Debridement (cm) - Width 5.0 5.0 7 -Total Square (Area) (cm) 35.00 27.50 56 -Tunneling No No No -Undermining/Tunneling No No No -Circular Undermining No No No -Wound/Ulcer Outcome Not Healed Not Healed Not Healed -Ulcer Cleansing Rinsed/ Rinsed/ Rinsed/ Irrigated with Irrigated with Irrigated with Saline Saline Saline -Foul Odor after Cleansing No No No -Bioengineered Tissue No No No -Bleeding Controlled with Pressure Pressure Pressure -Treatment Response Procedure Procedure Procedure Tolerated Well Tolerated Well Tolerated Well -Offloading No No No -Debridement - Subq, 1st 20sq cm Yes Yes No -Debridement, SubQ, ea addt'l 20sq cm 2 1 or part thereof #7 right medial sinclair -Time 11:36 11:05 11:11 -Correct Patient Yes Yes Yes -Correct Side, Site, Position Yes Yes Yes -Correct Procedure Yes Yes Yes -Procedure Performed Yes Yes Yes -Type of Procedure Debridement Debridement Debridement -Clinical Debridement Subcutaneous Subcutaneous Subcutaneous -Tissue Removed Subcutaneous Subcutaneous Subcutaneous -Post Debridement (cm) - Length 1.1 1.0 0.6 -Post Debridement (cm) - Width 0.4 0.5 0.2 -Post Debridement (cm) - Depth 0.2 0.2 0.1 -Total Square (Post) (cm) 0.44 0.50 0.12 -Area of Debridement (cm) - Length 1.1 1.0 0.6 -Area of Debridement (cm) - Width 0.4 0.5 0.2 -Total Square (Area) (cm) 0.44 0.50 0.12 -Tunneling No No No -Undermining/Tunneling No No No -Circular Undermining No No No -Wound/Ulcer Outcome Not Healed Not Healed Not Healed -Ulcer Cleansing Rinsed/ Rinsed/ Rinsed/ Irrigated with Irrigated with Irrigated with Saline Saline Saline -Foul Odor after Cleansing No No No -Bioengineered Tissue No No No -Bleeding Controlled with Pressure Pressure Pressure -Treatment Response Procedure Procedure Procedure Tolerated Well Tolerated Well Tolerated Well -Offloading No No No -Debridement - Subq, 1st 20sq cm No No No #6 right lateral sinclair -Time 11:36 11:05 11:11 -Correct Patient Yes Yes Yes -Correct Side, Site, Position Yes Yes Yes -Correct Procedure Yes Yes Yes -Procedure Performed Yes Yes Yes -Type of Procedure Debridement Debridement Debridement -Clinical Debridement Subcutaneous Subcutaneous Subcutaneous -Tissue Removed Subcutaneous Subcutaneous Subcutaneous -Post Debridement (cm) - Length 1.6 1.5 1.4 -Post Debridement (cm) - Width 0.7 0.7 0.4 -Post Debridement (cm) - Depth 0.2 0.2 0.1 -Total Square (Post) (cm) 1.12 1.05 0.56 -Area of Debridement (cm) - Length 1.6 1.5 1.4 -Area of Debridement (cm) - Width 0.7 0.7 0.4 -Total Square (Area) (cm) 1.12 1.05 0.56 -Tunneling No No No -Undermining/Tunneling No No No -Circular Undermining No No No -Wound/Ulcer Outcome Not Healed Not Healed Not Healed -Ulcer Cleansing Rinsed/ Rinsed/ Rinsed/ Irrigated with Irrigated with Irrigated with Saline Saline Saline -Foul Odor after Cleansing No No No -Bioengineered Tissue No No No -Bleeding Controlled with Pressure Pressure -Treatment Response Procedure Procedure Procedure Tolerated Well Tolerated Well Tolerated Well -Offloading No No -Assistive Device(s) Wheelchair -Debridement - Subq, 1st 20sq cm No No Yes -Debridement, SubQ, ea addt'l 20sq cm 2 or part thereof Pain Scale: 0-10 Numeric Is Patient Pain Free? Yes Yes Yes - Nurse 3 - General Ulcer D/C NN Start: 12/29/22 11:02 Freq: Status: Active Protocol: Activity Type Activity Date Activity User E-sign Co-sign Detail Recorded Client Recorded Date Recorded By Document 12/29/22 11:53 [facility] [id number] 12/29/22 11:56 [facility] Document 01/05/23 11:41 RB [id number] 01/05/23 11:43 RB Document 01/09/23 15:23 [facility] [id number] 01/09/23 15:26 [facility] Document 01/12/23 11:41 [facility] [id number] 01/12/23 11:43 [facility] 12/29/22 01/05/23 01/09/23 11:53 11:41 15:23 Wound Care Center Nurse 3 #8- RLE/ANKLE -Ulcer Cleansing Rinsed/ Wound Cleanser Soap and Water Irrigated with Saline -Foul Odor after Cleansing No No -Primary Dressing Applied Aquacel Extra, Aquacel Extra, Aquacel Extra, Optilok 6.5x10 Optilok 6.5x10 Optilok 6.5x10 -Other Dressing BACTROBAN bactroban, BACTROBAN aquacel, superabsorber -Primary Dressing Covered/Secured with Dry Gauze & Dry Gauze & Roll Gauze, Roll Gauze, Secured with Secured with Tape Tape -Other Covering PER DL SAND CASTER APPRENTICE -Aquacel Extra 1 1 1 -Optilok 6.5x10 1 1 1 -Silvercel #7 right medial sinclair -Ulcer Cleansing Rinsed/ Soap and Water Irrigated with Saline -Foul Odor after Cleansing No No -Primary Dressing Applied Aquacel Extra, Optilok 6.5x10 Aquacel Extra Optilok 6.5x10 -Other Dressing BACTROBAN bactroban BACTROBAN -Primary Dressing Covered/Secured with Dry Gauze & Dry Gauze & Secured with Roll Gauze, Roll Gauze, Tape Secured with Secured with Tape Tape -Other Covering ABD,PER DL SAND CASTER APPRENTICE -Aquacel Extra 0 0 -Optilok 6.5x10 1 1 #6 right lateral sinclair -Ulcer Cleansing Rinsed/ Rinsed/ Soap and Water Irrigated with Irrigated with Saline Saline -Foul Odor after Cleansing No No -Primary Dressing Applied Aquacel Extra Optilok 6.5x10 Aquacel Extra -Other Dressing BACTROBAN bactroban ABD -Primary Dressing Covered/Secured with Dry Gauze,Dry Dry Gauze & Gauze & Roll Roll Gauze, Gauze,Secured Secured with with Tape Tape -Other Covering BACTROBAN, PER DL SAND CASTER APPRENTICE -Aquacel Extra 0 0 -Optilok 6.5x10 1 Right -Multi-Layered Wrap Application Multi-Layer Multi-Layer Comp - Right ($ Comp - Right ($ ) ) -Other PER DL SAND CASTER APPRENTICE Left -Other double layer tubigrip BLE -Tubular Bandage Double Layer -Size of Tubigrip Used Size F -Size F ($) 4 Treatment Response Procedure Procedure Procedure Tolerated Well Tolerated Well Tolerated Well Pain Scale: 0-10 Numeric Is Patient Pain Free? Yes Yes Yes WC - Visit Discharge Discharge Condition Stable Stable Stable Ambulatory Status Wheelchair Wheelchair Wheelchair Transportation ECF intermediate ECF transport Medication Reconcilliation completed & No provided to patient/care provider Clinical Summary of Care Provided Yes Other AL 01/12/23 11:41 Wound Care Center Nurse 3 #8- RLE/ANKLE -Ulcer Cleansing Rinsed/ Irrigated with Saline -Foul Odor after Cleansing No -Primary Dressing Applied Optilok 6.5x10, Silvercel -Other Dressing BACTROBAN -Primary Dressing Covered/Secured with Dry Gauze & Roll Gauze, Secured with Tape -Other Covering -Aquacel Extra -Optilok 6.5x10 1 -Silvercel 1 #7 right medial sinclair -Ulcer Cleansing Rinsed/ Irrigated with Saline -Foul Odor after Cleansing No -Primary Dressing Applied Aquacel Extra -Other Dressing ABD -Primary Dressing Covered/Secured with Dry Gauze & Roll Gauze, Secured with Tape -Other Covering BACTROBAN -Aquacel Extra 1 -Optilok 6.5x10 #6 right lateral sinclair -Ulcer Cleansing Rinsed/ Irrigated with Saline -Foul Odor after Cleansing No -Primary Dressing Applied Aquacel Extra -Other Dressing ABD -Primary Dressing Covered/Secured with Dry Gauze & Roll Gauze, Secured with Tape -Other Covering BACTROBAN -Aquacel Extra 0 -Optilok 6.5x10 Right -Multi-Layered Wrap Application Multi-Layer Comp - Right ($ ) -Other Left -Other BLE -Tubular Bandage -Size of Tubigrip Used -Size F ($) Treatment Response Procedure Tolerated Well Pain Scale: 0-10 Numeric Is Patient Pain Free? Yes WC - Visit Discharge Discharge Condition Stable Ambulatory Status Wheelchair Transportation ECF Medication Reconcilliation completed & provided to patient/care provider Clinical Summary of Care Provided Other [facility]IST[facility] LIVING Additional Wound Wound debrided: Right lower extremity (medial) Type of Debridement: Excisional debridement Anesthesia Used: 5% Lidocaine Gel Depth: Down to and including healthy tissue and in the subcutaneous layer Percentage of wound debrided: 100 Instrument Used: 5mm curette Tissue Removed: Slough and devitalized tissue Severity: Fat Layer Exposed Amount of bleeding with debridement: Mild Bleeding Controlled with: Pressure Patient tolerated procedure: Patient tolerated procedure well Additional Wound Wound debrided: Right foot/medial ankle Type of Debridement: Excisional debridement Anesthesia Used: 5% Lidocaine Gel Depth: Down to and including healthy tissue and in the subcutaneous layer Percentage of wound debrided: 100 Instrument Used: 5mm curette Tissue Removed: Slough and devitalized tissue Severity: Fat Layer Exposed Amount of bleeding with debridement: Mild Bleeding Controlled with: Pressure Patient tolerated procedure: Patient tolerated procedure well Assessment/Plan Assessment/Plan (1) Ulcer of left lower extremity with fat layer exposed: CODE(S): L97.922 - Non-pressure chronic ulcer of unspecified part of left lower leg with fat layer exposed (2) Ulcer of right lower extremity with fat layer exposed: CODE(S): L97.912 - Non-pressure chronic ulcer of unspecified part of right lower leg with fat layer exposed (3) Ulcer of right foot with fat layer exposed: CODE(S): L97.512 - Non-pressure chronic ulcer of other part of right foot with fat layer exposed (4) Venous insufficiency of both lower extremities: CODE(S): I87.2 - Venous insufficiency (chronic) (peripheral) (5) Borderline type 2 diabetes mellitus: CODE(S): R73.03 - Prediabetes (6) Lymphedema: CODE(S): I89.0 - Lymphedema, not elsewhere classified PLAN: Plan Debridement done as documented above, procedure was well-tolerated. Continue Aquacel, mupirocin and superabsorbent dressing to leg ulcer. Switch to Mupirocin and Silvercel to the foot/medial ankle. 3M wraps for edema management. Change on Monday and Monday at the Facility. Elevate lower extremities when seated and in bed. Protein supplements twice daily. His questions were answered and he was advised to call with any further questions or concerns. Follow-up in 1 week. This note was generated with [employer] dictation software. It may contain incorrect words, spelling, and punctuation that were not noted in checking the note before signing.
[2023-01-16 13:42] VITALS: TEMP 35.9
[2023-01-19 10:34] VITALS: BP 120/60; PULSE 74; RESP 22; TEMP 36.4
--- NOTE | 2023-01-19 12:44 | PCM.WC.PN ---
History of Present Illness Date of Service: 01/19/23 Chief Complaint: Bilateral lower extremity ulcers History of Wound: Mr. Boles is an 82-year-old currently residing at [facility] who presents due to nonhealing bilateral lower extremity ulceration. Has been present for some months. Has had some dressing changes done at his facility without any significant improvement. 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 Not very active. Significant bilateral lower extremity edema. He denies chills, fever or feeling of unwell. He states that his appetite is good. Progress of Wound: Lower extremity edema with some improvement following 3M compression. He also has his lymphedema pump which he states that he has been using daily, tolerating well. New left lower extremity ulcer. Objective Data Objective Data Vital Signs: Vital Signs Temp Pulse Resp BP O2 Del Method 97.5 F L 74 22 H 120/60 Room Air 01/19/23 10:34 01/19/23 10:34 01/19/23 10:34 01/19/23 10:34 12/29/22 11:02 Oxygen Delivery Method Room Air Charges/Coding Procedures Integumentary 111xxx-113xx: 15199 Jaye subq tissue 20 sq cm/< Add On Codes: 87686 Jaye subq tissue add-on (x1. Additional Sq centimeter debrided, please refer to clinical note.) Physical Exam Const alert, oriented x3 and no apparent distress General Appearance: cooperative, comfortable and well kempt HEENT normocephalic and head/scalp atraumatic Eyes EOMs intact bilaterally General Eye: normal appearance of both eyes Neck full ROM General: normal visual inspection Resp normal respiratory effort Effort and Inspection: able to speak in complete sentences Extremity General Extremity: edema Skin Wounds: wounds noted Neuro oriented x3, CN's II-XII intact bilaterally, moves all extremities and no focal motor deficits Psych mental status grossly normal, thought process normal, cooperative and affect normal Debridement Note Debridement Note Wound debrided: Right lower extremity lateral cluster Type of Debridement: Excisional debridement Anesthesia Used: 5% Lidocaine Gel Depth: Down to and including healthy tissue and in the subcutaneous layer Percentage of wound debrided: 100 Severity: Fat Layer Exposed Amount of bleeding with debridement: Mild Bleeding Controlled with: Pressure Patient tolerated procedure: Patient tolerated procedure well Post-Debridement Measurements and Additional Note: Post-Debridement Measurements/Treatment WC - Nurse 1 - General Ulcer Assessment Start: 12/29/22 11:02 Freq: Status: Active Protocol: LINDA Activity Type Activity Date Activity User E-sign Co-sign Detail Recorded Client Recorded Date Recorded By Document 12/29/22 11:02 BMF [id number] 12/29/22 11:10 BMF Document 01/05/23 10:40 DL [id number] 01/05/23 10:51 DL Document 01/09/23 15:23 BMF [id number] 01/09/23 15:26 BMF Document 01/12/23 10:27 RB [id number] 01/12/23 10:49 RB Document 01/16/23 13:42 AK [id number] 01/16/23 13:47 AK Document 01/19/23 10:34 DL [id number] 01/19/23 11:18 DL 12/29/22 01/05/23 01/09/23 11:02 10:40 15:23 WC - Today's Visit Information Type of service Follow-up Visit Follow-up Visit Follow-up Visit (Physician/COMMERCIAL APPRAISER (Physician/COMMERCIAL APPRAISER (Physician/COMMERCIAL APPRAISER ) ) ) Arrival Mode Wheelchair Wheelchair Wheelchair Transfer Assistance None Manual None Transfer Assist (Other) x2 Patient Identification Verified (Name & Yes Yes Yes ) Patient Requires Transmission-Based No No No Precautions Vital Signs Temperature (97.8 F-99.1 F) 97.2 F L 97.5 F L Temperature Source Temporal Temporal Pulse Rate (60-100) 70 68 Pulse Location Monitor Monitor Respiratory Rate (12-18) 16 20 H Respiratory rate source Observation Observation Oxygen Delivery Method Room Air Blood Pressure (90/60-120/80) 131/72 H 113/52 L Blood Pressure Mean (mm Hg) 91 72 Source Monitor Monitor Position Sitting Blood Pressure Location Left Forearm History Since Last Visit- (Skip if this is Patient's initial visit) Have you changed medications since your No No No last visit? Any new allergies or adverse reactions No No No Had a fall/change in ADL's that may No No No increase risk of falls Signs or symptoms of abuse and/or No No No neglect since last visit Have you been in the hospital since your No No No last visit? Has dressing in place as prescribed Yes Yes Yes Has compression in place as prescribed Yes Yes Yes Has offloadiing in place as prescribed N/A N/A N/A Experienced any changes in pain level or No No No management Left Footwear Regular Shoe Regular Shoe Right Footwear Regular Shoe Regular Shoe Pain Scale: 0-10 Numeric Is Patient Pain Free? Yes Yes Yes 01/12/23 01/16/23 01/19/23 10:27 13:42 10:34 - Today's Visit Information Type of service Follow-up Visit Nurse-only Follow-up Visit (Physician/COMMERCIAL APPRAISER Visit (Physician/COMMERCIAL APPRAISER ) ) Arrival Mode Wheelchair Wheelchair Wheelchair Transfer Assistance Manual Manual Transfer Assist (Other) x1 Patient Identification Verified (Name & Yes Yes Yes ) Patient Requires Transmission-Based No No No Precautions Vital Signs Temperature (97.8 F-99.1 F) 97 F L 96.7 F L 97.5 F L Temperature Source Temporal Temporal Temporal Pulse Rate (60-100) 74 Pulse Location Monitor Monitor Respiratory Rate (12-18) 18 22 H Respiratory rate source Observation Observation Oxygen Delivery Method Blood Pressure (90/60-120/80) 120/60 Blood Pressure Mean (mm Hg) 80 Source Monitor Monitor Position Sitting Blood Pressure Location Left Arm History Since Last Visit- (Skip if this is Patient's initial visit) Have you changed medications since your No No last visit? Any new allergies or adverse reactions No No Had a fall/change in ADL's that may No No increase risk of falls Signs or symptoms of abuse and/or No No neglect since last visit Have you been in the hospital since your No No last visit? Has dressing in place as prescribed Yes Yes Has compression in place as prescribed Yes Yes Has offloadiing in place as prescribed No N/A Experienced any changes in pain level or No No management Left Footwear Surgical Shoe with pressure relief insole Right Footwear Surgical Shoe with pressure relief insole Pain Scale: 0-10 Numeric Is Patient Pain Free? Yes Yes Yes - Nurse 1 - General Ulcer Measurement Start: 12/29/22 11:02 Freq: Status: Active Protocol: Activity Type Activity Date Activity User E-sign Co-sign Detail Recorded Client Recorded Date Recorded By Document 12/29/22 11:02 [facility] [id number] 12/29/22 11:10 [facility] Document 01/05/23 10:40 DL [id number] 01/05/23 10:51 DL Document 01/09/23 15:23 [facility] [id number] 01/09/23 15:26 [facility] Document 01/12/23 10:27 RB [id number] 01/12/23 10:49 RB Document 01/19/23 10:34 DL [id number] 01/19/23 11:18 DL 12/29/22 01/05/23 01/09/23 11:02 10:40 15:23 Wound Center Nurse 1 #8- RLE/ANKLE -Combined with other wound No -Current Size (cm) - Length 7.8 4.2 -Current Size (cm) - Width 7 4 -Current Size (cm) - Depth 0.1 0.1 -Total Square Cm 54.6 16.8 -Photo Taken No Yes -Epithelialization None Present -Tunneling No -Undermining/Tunneling No -Circular Undermining No -Exudate Amt Large Medium -Exudate Type Serosanguineous Serosanguineous -Wound Margin Flat & Intact Indistinct, Non -Visible -Granulation Amt Medium (34-66%) Large (67-100%) -Granulation Quality [place] -Slough/Fibrin Yes -Necrosis Amt Medium (34-66%) Small (1-33%) -Necrotic Tissue Type Adherent Slough Adherent Slough -Structure Exposed N/A -Texture ([place]-wound Skin Appearance) Assessed, Scarring Scarring -Moisture ([place]-wound Skin Appearance) Assessed,Dry/ Weeping Scaly -Color ([place]-wound Skin Appearance) Assessed Hemosiderin Staining -Temperature ([place]-wound Skin No Abnormality No Abnormality Appearance) (Pt Warm) (Pt Warm) -Tenderness on Palpation ([place]-wound No Yes Skin Appearance) -Ulcer Cleansing Rinsed/ Soap and Water Irrigated with Saline -Foul Odor after Cleansing No Yes, Due to Product Use -Anesthetic Used 5% Lidocaine 5% Lidocaine Gel Gel #7 right medial sinclair -Combined with other wound No -Current Size (cm) - Length 0.1 0.3 -Current Size (cm) - Width 0.1 0.8 -Current Size (cm) - Depth 0.1 0.1 -Total Square Cm 0.01 0.24 -Date of Last Picture (Recall this 12/29/22 field) -Photo Taken Yes Yes -Epithelialization Large 67-100% -Tunneling -Undermining/Tunneling -Circular Undermining -Exudate Amt Small -Exudate Type Serosanguineous -Wound Margin Distinct, Outline Attached -Granulation Amt Small (1-33%) -Granulation Quality [place] -Slough/Fibrin -Necrosis Amt Small (1-33%) -Necrotic Tissue Type Adherent Slough -Structure Exposed N/A -Texture ([place]wound Skin Appearance) Assessed, Scarring Scarring -Moisture ([place]-wound Skin Appearance) Assessed,Dry/ No Abnormality Scaly -Color ([place]-wound Skin Appearance) Assessed Hemosiderin Staining -Temperature ([place]wound Skin No Abnormality No Abnormality Appearance) (Pt Warm) (Pt Warm) -Tenderness on Palpation ([place]-wound No No Skin Appearance) -Ulcer Cleansing Rinsed/ Soap and Water Irrigated with Saline -Foul Odor after Cleansing No Yes, Due to Product Use -Anesthetic Used 5% Lidocaine 5% Lidocaine Gel Gel #6 right lateral sinclair -Combined with other wound No -Current Size (cm) - Length 1.7 1.2 -Current Size (cm) - Width 0.6 0.7 -Current Size (cm) - Depth 0.2 0.1 -Total Square Cm 1.02 0.84 -Photo Taken No Yes -Epithelialization Small 1-33% -Tunneling No -Undermining/Tunneling No -Circular Undermining No -Exudate Amt Medium Small -Exudate Type Serosanguineous Serosanguineous -Wound Margin Distinct, Distinct, Outline Outline Attached Attached -Granulation Amt Large (67-100%) Small (1-33%) -Granulation Quality Red [place] -Slough/Fibrin Yes -Necrosis Amt Small (1-33%) Small (1-33%) -Necrotic Tissue Type Adherent Slough Adherent Slough -Structure Exposed N/A -Texture ([place]-wound Skin Appearance) Assessed, Scarring Scarring -Moisture ([place]-wound Skin Appearance) Assessed,Dry/ Dry/Scaly Scaly -Color ([place]-wound Skin Appearance) Assessed Hemosiderin Staining -Temperature ([place]-wound Skin No Abnormality No Abnormality Appearance) (Pt Warm) (Pt Warm) -Tenderness on Palpation ([place]-wound No No Skin Appearance) -Ulcer Cleansing Rinsed/ Soap and Water Irrigated with Saline -Foul Odor after Cleansing No No -Anesthetic Used 5% Lidocaine 5% Lidocaine Gel Gel Lower Limb Edema Present Yes Yes Right Calf (cm) 49.8 46.5 53 Right Ankle (cm) 34.1 33.5 33.8 Left Calf (cm) 44.5 Left Ankle (cm) 36.3 01/12/23 01/19/23 10:27 10:34 Wound Center Nurse 1 #8- RLE/ANKLE -Combined with other wound No -Current Size (cm) - Length 8 6 -Current Size (cm) - Width 8.5 6 -Current Size (cm) - Depth 0.1 0.1 -Total Square Cm 68.0 36 -Photo Taken Yes Yes -Epithelialization -Tunneling No -Undermining/Tunneling No -Circular Undermining No -Exudate Amt Large Large -Exudate Type Serosanguineous Serosanguineous -Wound Margin Distinct, Distinct, Outline Outline Attached Attached -Granulation Amt Medium (34-66%) None Present (0 %) -Granulation Quality [place] -Slough/Fibrin Yes -Necrosis Amt Medium (34-66%) Large (67-100%) -Necrotic Tissue Type Adherent Slough Adherent Slough -Structure Exposed N/A N/A -Texture ([place]-wound Skin Appearance) Assessed, Scarring Localized Edema -Moisture ([place]-wound Skin Appearance) Assessed Dry/Scaly -Color ([place]-wound Skin Appearance) Assessed Hemosiderin Staining -Temperature ([place]-wound Skin No Abnormality No Abnormality Appearance) (Pt Warm) (Pt Warm) -Tenderness on Palpation ([place]-wound No Skin Appearance) -Ulcer Cleansing Wound Cleanser Soap and Water -Foul Odor after Cleansing No No -Anesthetic Used 5% Lidocaine 5% Lidocaine Gel Gel #7 right medial sinclair -Combined with other wound No -Current Size (cm) - Length 0.4 0.2 -Current Size (cm) - Width 0.5 0.3 -Current Size (cm) - Depth 0.1 0.1 -Total Square Cm 0.20 0.06 -Date of Last Picture (Recall this field) -Photo Taken Yes Yes -Epithelialization -Tunneling No -Undermining/Tunneling No -Circular Undermining No -Exudate Amt Large Small -Exudate Type Serosanguineous Serosanguineous -Wound Margin Distinct, Distinct, Outline Outline Attached Attached -Granulation Amt Medium (34-66%) Small (1-33%) -Granulation Quality [place] -Slough/Fibrin Yes -Necrosis Amt None Present (0 Small (1-33%) %) -Necrotic Tissue Type Adherent Slough Adherent Slough -Structure Exposed N/A N/A -Texture ([place]-wound Skin Appearance) Assessed, Scarring Localized Edema -Moisture ([place]-wound Skin Appearance) Assessed Dry/Scaly -Color ([place]-wound Skin Appearance) Assessed Hemosiderin Staining -Temperature ([place]-wound Skin No Abnormality No Abnormality Appearance) (Pt Warm) (Pt Warm) -Tenderness on Palpation ([place]-wound No No Skin Appearance) -Ulcer Cleansing Wound Cleanser Soap and Water -Foul Odor after Cleansing No No -Anesthetic Used 5% Lidocaine 5% Lidocaine Gel Gel #6 right lateral sinclair -Combined with other wound No -Current Size (cm) - Length 1 0.6 -Current Size (cm) - Width 0.4 0.2 -Current Size (cm) - Depth 0.2 0.1 -Total Square Cm 0.4 0.12 -Photo Taken Yes Yes -Epithelialization -Tunneling No -Undermining/Tunneling No -Circular Undermining No -Exudate Amt Large Small -Exudate Type Serosanguineous Serosanguineous -Wound Margin Distinct, Distinct, Outline Outline Attached Attached -Granulation Amt Medium (34-66%) -Granulation Quality [place] Hyper- granulation,Red -Slough/Fibrin Yes -Necrosis Amt Medium (34-66%) Small (1-33%) -Necrotic Tissue Type Adherent Slough Adherent Slough -Structure Exposed N/A N/A -Texture ([place]-wound Skin Appearance) Assessed, Scarring Localized Edema -Moisture ([place]-wound Skin Appearance) Assessed Dry/Scaly -Color ([place]-wound Skin Appearance) Assessed Mottled -Temperature ([place]-wound Skin No Abnormality No Abnormality Appearance) (Pt Warm) (Pt Warm) -Tenderness on Palpation ([place]-wound No No Skin Appearance) -Ulcer Cleansing Wound Cleanser Soap and Water -Foul Odor after Cleansing No No -Anesthetic Used 5% Lidocaine 5% Lidocaine Gel Gel Lower Limb Edema Present Yes Right Calf (cm) 42 39 Right Ankle (cm) 33.5 31.3 Left Calf (cm) Left Ankle (cm) WC - Nurse 2 - General Ulcer CM Notes Start: 12/29/22 11:02 Freq: Status: Active Protocol: Activity Type Activity Date Activity User E-sign Co-sign Detail Recorded Client Recorded Date Recorded By Document 12/29/22 11:33 MW [id number] 12/29/22 11:40 MW Edit Result 12/29/22 11:33 MW (1) [id number] 12/30/22 06:41 PL Document 01/05/23 11:04 MW [id number] 01/05/23 11:10 MW Document 01/12/23 11:09 JF [id number] 01/12/23 11:19 JF Document 01/19/23 11:08 MW [id number] 01/19/23 11:20 MW (1) #8- RLE/ANKLE - Debridement, SubQ, ea addt'l 20sq cm 1 => 2 or part thereof 12/29/22 01/05/23 01/12/23 11:33 11:04 11:09 Wound Center Nurse 2 #9 Left sinclair -Time -Correct Patient -Correct Side, Site, Position -Correct Procedure -Procedure Performed -Type of Procedure -Clinical Debridement -Tissue Removed -Post Debridement (cm) - Length -Post Debridement (cm) - Width -Post Debridement (cm) - Depth -Total Square (Post) (cm) -Area of Debridement (cm) - Length -Area of Debridement (cm) - Width -Total Square (Area) (cm) -Tunneling -Undermining/Tunneling -Circular Undermining -Wound/Ulcer Outcome -Ulcer Cleansing -Foul Odor after Cleansing -Bioengineered Tissue -Offloading -Debridement - Subq, 1st 20sq cm #8- RLE/ANKLE -Time 11:39 11:05 11:10 -Correct Patient Yes Yes Yes -Correct Side, Site, Position Yes Yes Yes -Correct Procedure Yes Yes Yes -Procedure Performed Yes Yes Yes -Type of Procedure Debridement Debridement Debridement -Clinical Debridement Subcutaneous Subcutaneous Subcutaneous -Tissue Removed Subcutaneous Subcutaneous Subcutaneous -Post Debridement (cm) - Length 7.0 5.5 8 -Post Debridement (cm) - Width 5.0 5.0 7 -Post Debridement (cm) - Depth 0.1 0.1 0.1 -Total Square (Post) (cm) 35.00 27.50 56 -Area of Debridement (cm) - Length 7.0 5.5 8 -Area of Debridement (cm) - Width 5.0 5.0 7 -Total Square (Area) (cm) 35.00 27.50 56 -Tunneling No No No -Undermining/Tunneling No No No -Circular Undermining No No No -Wound/Ulcer Outcome Not Healed Not Healed Not Healed -Ulcer Cleansing Rinsed/ Rinsed/ Rinsed/ Irrigated with Irrigated with Irrigated with Saline Saline Saline -Foul Odor after Cleansing No No No -Bioengineered Tissue No No No -Bleeding Controlled with Pressure Pressure Pressure -Treatment Response Procedure Procedure Procedure Tolerated Well Tolerated Well Tolerated Well -Offloading No No No -Debridement - Subq, 1st 20sq cm Yes Yes No -Debridement, SubQ, ea addt'l 20sq cm 2 1 or part thereof #7 right medial sinclair -Time 11:36 11:05 11:11 -Correct Patient Yes Yes Yes -Correct Side, Site, Position Yes Yes Yes -Correct Procedure Yes Yes Yes -Procedure Performed Yes Yes Yes -Type of Procedure Debridement Debridement Debridement -Clinical Debridement Subcutaneous Subcutaneous Subcutaneous -Tissue Removed Subcutaneous Subcutaneous Subcutaneous -Post Debridement (cm) - Length 1.1 1.0 0.6 -Post Debridement (cm) - Width 0.4 0.5 0.2 -Post Debridement (cm) - Depth 0.2 0.2 0.1 -Total Square (Post) (cm) 0.44 0.50 0.12 -Area of Debridement (cm) - Length 1.1 1.0 0.6 -Area of Debridement (cm) - Width 0.4 0.5 0.2 -Total Square (Area) (cm) 0.44 0.50 0.12 -Tunneling No No No -Undermining/Tunneling No No No -Circular Undermining No No No -Wound/Ulcer Outcome Not Healed Not Healed Not Healed -Ulcer Cleansing Rinsed/ Rinsed/ Rinsed/ Irrigated with Irrigated with Irrigated with Saline Saline Saline -Foul Odor after Cleansing No No No -Bioengineered Tissue No No No -Bleeding Controlled with Pressure Pressure Pressure -Treatment Response Procedure Procedure Procedure Tolerated Well Tolerated Well Tolerated Well -Offloading No No No -Debridement - Subq, 1st 20sq cm No No No #6 right lateral sinclair -Time 11:36 11:05 11:11 -Correct Patient Yes Yes Yes -Correct Side, Site, Position Yes Yes Yes -Correct Procedure Yes Yes Yes -Procedure Performed Yes Yes Yes -Type of Procedure Debridement Debridement Debridement -Clinical Debridement Subcutaneous Subcutaneous Subcutaneous -Tissue Removed Subcutaneous Subcutaneous Subcutaneous -Post Debridement (cm) - Length 1.6 1.5 1.4 -Post Debridement (cm) - Width 0.7 0.7 0.4 -Post Debridement (cm) - Depth 0.2 0.2 0.1 -Total Square (Post) (cm) 1.12 1.05 0.56 -Area of Debridement (cm) - Length 1.6 1.5 1.4 -Area of Debridement (cm) - Width 0.7 0.7 0.4 -Total Square (Area) (cm) 1.12 1.05 0.56 -Tunneling No No No -Undermining/Tunneling No No No -Circular Undermining No No No -Wound/Ulcer Outcome Not Healed Not Healed Not Healed -Ulcer Cleansing Rinsed/ Rinsed/ Rinsed/ Irrigated with Irrigated with Irrigated with Saline Saline Saline -Foul Odor after Cleansing No No No -Bioengineered Tissue No No No -Bleeding Controlled with Pressure Pressure -Treatment Response Procedure Procedure Procedure Tolerated Well Tolerated Well Tolerated Well -Offloading No No -Assistive Device(s) Wheelchair -Debridement - Subq, 1st 20sq cm No No Yes -Debridement, SubQ, ea addt'l 20sq cm 2 or part thereof Pain Scale: 0-10 Numeric Is Patient Pain Free? Yes Yes Yes 01/19/23 11:08 Wound Center Nurse 2 #9 Left sinclair -Time 11:19 -Correct Patient Yes -Correct Side, Site, Position Yes -Correct Procedure Yes -Procedure Performed Yes -Type of Procedure Debridement -Clinical Debridement Subcutaneous -Tissue Removed Subcutaneous -Post Debridement (cm) - Length 3.0 -Post Debridement (cm) - Width 1.4 -Post Debridement (cm) - Depth 0.1 -Total Square (Post) (cm) 4.20 -Area of Debridement (cm) - Length 3.0 -Area of Debridement (cm) - Width 1.4 -Total Square (Area) (cm) 4.20 -Tunneling No -Undermining/Tunneling No -Circular Undermining No -Wound/Ulcer Outcome Not Healed -Ulcer Cleansing Rinsed/ Irrigated with Saline -Foul Odor after Cleansing No -Bioengineered Tissue No -Offloading No -Debridement - Subq, 1st 20sq cm No #8- RLE/ANKLE -Time 11:08 -Correct Patient Yes -Correct Side, Site, Position Yes -Correct Procedure Yes -Procedure Performed Yes -Type of Procedure Debridement -Clinical Debridement Subcutaneous -Tissue Removed Subcutaneous -Post Debridement (cm) - Length 6.0 -Post Debridement (cm) - Width 6.5 -Post Debridement (cm) - Depth 0.1 -Total Square (Post) (cm) 39.00 -Area of Debridement (cm) - Length 6.0 -Area of Debridement (cm) - Width 6.5 -Total Square (Area) (cm) 39.00 -Tunneling No -Undermining/Tunneling No -Circular Undermining No -Wound/Ulcer Outcome Not Healed -Ulcer Cleansing Rinsed/ Irrigated with Saline -Foul Odor after Cleansing No -Bioengineered Tissue No -Bleeding Controlled with Pressure -Treatment Response Procedure Tolerated Well -Offloading No -Debridement - Subq, 1st 20sq cm Yes -Debridement, SubQ, ea addt'l 20sq cm 2 or part thereof #7 right medial sinclair -Time 11:08 -Correct Patient Yes -Correct Side, Site, Position Yes -Correct Procedure Yes -Procedure Performed Yes -Type of Procedure Debridement -Clinical Debridement Subcutaneous -Tissue Removed Subcutaneous -Post Debridement (cm) - Length 0.5 -Post Debridement (cm) - Width 0.5 -Post Debridement (cm) - Depth 0.1 -Total Square (Post) (cm) 0.25 -Area of Debridement (cm) - Length 0.5 -Area of Debridement (cm) - Width 0.5 -Total Square (Area) (cm) 0.25 -Tunneling No -Undermining/Tunneling No -Circular Undermining No -Wound/Ulcer Outcome Not Healed -Ulcer Cleansing Rinsed/ Irrigated with Saline -Foul Odor after Cleansing No -Bioengineered Tissue No -Bleeding Controlled with Pressure -Treatment Response Procedure Tolerated Well -Offloading No -Debridement - Subq, 1st 20sq cm No #6 right lateral sinclair -Time 11:09 -Correct Patient Yes -Correct Side, Site, Position Yes -Correct Procedure Yes -Procedure Performed Yes -Type of Procedure Debridement -Clinical Debridement Subcutaneous -Tissue Removed Subcutaneous -Post Debridement (cm) - Length 1.5 -Post Debridement (cm) - Width 0.3 -Post Debridement (cm) - Depth 0.1 -Total Square (Post) (cm) 0.45 -Area of Debridement (cm) - Length 1.5 -Area of Debridement (cm) - Width 0.3 -Total Square (Area) (cm) 0.45 -Tunneling No -Undermining/Tunneling No -Circular Undermining No -Wound/Ulcer Outcome Not Healed -Ulcer Cleansing Rinsed/ Irrigated with Saline -Foul Odor after Cleansing No -Bioengineered Tissue No -Bleeding Controlled with Pressure -Treatment Response Procedure Tolerated Well -Offloading No -Assistive Device(s) -Debridement - Subq, 1st 20sq cm No -Debridement, SubQ, ea addt'l 20sq cm or part thereof Pain Scale: 0-10 Numeric Is Patient Pain Free? Yes WC - Nurse 3 - General Ulcer D/C NN Start: 12/29/22 11:02 Freq: Status: Active Protocol: Activity Type Activity Date Activity User E-sign Co-sign Detail Recorded Client Recorded Date Recorded By Document 12/29/22 11:53 [facility] [id number] 12/29/22 11:56 [facility] Document 01/05/23 11:41 RB [id number] 01/05/23 11:43 RB Document 01/09/23 15:23 [facility] [id number] 01/09/23 15:26 [facility] Document 01/12/23 11:41 [facility] [id number] 01/12/23 11:43 [facility] Document 01/16/23 13:42 [place] [id number] 01/16/23 13:47 [place] Document 01/19/23 11:32 [facility] [id number] 01/19/23 11:36 [facility] 12/29/22 01/05/23 01/09/23 11:53 11:41 15:23 Wound Care Center Nurse 3 #9 Left sinclair -Ulcer Cleansing -Foul Odor after Cleansing -Primary Dressing Applied -Other Dressing -Other Covering -Silvercel #8- RLE/ANKLE -Ulcer Cleansing Rinsed/ Wound Cleanser Soap and Water Irrigated with Saline -Foul Odor after Cleansing No No -Negative Pressure Wound Therapy -Primary Dressing Applied Aquacel Extra, Aquacel Extra, Aquacel Extra, Optilok 6.5x10 Optilok 6.5x10 Optilok 6.5x10 -Other Dressing BACTROBAN bactroban, BACTROBAN aquacel, superabsorber -Primary Dressing Covered/Secured with Dry Gauze & Dry Gauze & Roll Gauze, Roll Gauze, Secured with Secured with Tape Tape -Other Covering PER [employer] MEDIA PROGRAM DIRECTOR -Aquacel Extra 1 1 1 -Optilok 6.5x10 1 1 1 -Silvercel #7 right medial sinclair -Ulcer Cleansing Rinsed/ Soap and Water Irrigated with Saline -Foul Odor after Cleansing No No -Negative Pressure Wound Therapy -Primary Dressing Applied Aquacel Extra, Optilok 6.5x10 Aquacel Extra Optilok 6.5x10 -Other Dressing BACTROBAN bactroban BACTROBAN -Primary Dressing Covered/Secured with Dry Gauze & Dry Gauze & Secured with Roll Gauze, Roll Gauze, Tape Secured with Secured with Tape Tape -Other Covering ABD,[employer] MEDIA PROGRAM DIRECTOR -Aquacel Extra 0 0 -Optilok 6.5x10 1 1 -Silvercel #6 right lateral sinclair -Ulcer Cleansing Rinsed/ Rinsed/ Soap and Water Irrigated with Irrigated with Saline Saline -Foul Odor after Cleansing No No -Negative Pressure Wound Therapy -Primary Dressing Applied Aquacel Extra Optilok 6.5x10 Aquacel Extra -Other Dressing BACTROBAN bactroban ABD -Primary Dressing Covered/Secured with Dry Gauze,Dry Dry Gauze & Gauze & Roll Roll Gauze, Gauze,Secured Secured with with Tape Tape -Other Covering BACTROBAN, [employer] MEDIA PROGRAM DIRECTOR -Aquacel Extra 0 0 -Optilok 6.5x10 1 -Silvercel Right -Lotion applied to leg before compression wrap -Multi-Layered Wrap Application Multi-Layer Multi-Layer Comp - Right ($ Comp - Right ($ ) ) -Other [employer] MEDIA PROGRAM DIRECTOR Left -Other double layer tubigrip BLE -Multi-Layered Wrap Application -Tubular Bandage Double Layer -Size of Tubigrip Used Size F -Size F ($) 4 -Other Treatment Response Procedure Procedure Procedure Tolerated Well Tolerated Well Tolerated Well Vital Signs Temperature (97.8 F-99.1 F) Temperature Source Pain Scale: 0-10 Numeric Is Patient Pain Free? Yes Yes Yes WC - Visit Discharge Discharge Condition Stable Stable Stable Ambulatory Status Wheelchair Wheelchair Wheelchair Transportation ECF group home ECF transport Medication Reconcilliation completed & No provided to patient/care provider Clinical Summary of Care Provided Yes Other AL 01/12/23 01/16/23 01/19/23 11:41 13:42 11:32 W[facility] Care Center Nurse 3 #9 Left sinclair -Ulcer Cleansing Rinsed/ Irrigated with Saline -Foul Odor after Cleansing No -Primary Dressing Applied Silvercel -Other Dressing BACTROBAN -Other Covering ABD, [employer] MEDIA PROGRAM DIRECTOR -Silvercel 1 #8- RLE/ANKLE -Ulcer Cleansing Rinsed/ Soap and Water Rinsed/ Irrigated with Irrigated with Saline Saline -Foul Odor after Cleansing No No No -Negative Pressure Wound Therapy N/A -Primary Dressing Applied Optilok 6.5x10, Aquacel Extra, Optilok 6.5x10, Silvercel Optilok 6.5x10 Silvercel -Other Dressing BACTROBAN Bacatracin [employer] MEDIA PROGRAM DIRECTOR -Primary Dressing Covered/Secured with Dry Gauze & Dry Gauze & Dry Gauze & Roll Gauze, Roll Gauze, Roll Gauze, Secured with Secured with Secured with Tape Tape Tape -Other Covering BACTROBAN -Aquacel Extra 1 -Optilok 6.5x10 1 1 1 -Silvercel 1 0 #7 right medial sinclair -Ulcer Cleansing Rinsed/ Soap and Water Rinsed/ Irrigated with Irrigated with Saline Saline -Foul Odor after Cleansing No No No -Negative Pressure Wound Therapy N/A -Primary Dressing Applied Aquacel Extra Silvercel -Other Dressing ABD Bacatracin BACTROBAN, ABD, [employer] MEDIA PROGRAM DIRECTOR -Primary Dressing Covered/Secured with Dry Gauze & Dry Gauze Dry Gauze & Roll Gauze, Roll Gauze, Secured with Secured with Tape Tape -Other Covering BACTROBAN -Aquacel Extra 1 -Optilok 6.5x10 -Silvercel 0 #6 right lateral sinclair -Ulcer Cleansing Rinsed/ Soap and Water Rinsed/ Irrigated with Irrigated with Saline Saline -Foul Odor after Cleansing No No No -Negative Pressure Wound Therapy N/A -Primary Dressing Applied Aquacel Extra Silvercel -Other Dressing ABD Bacatracin BACTROBAN, ABD, [employer] MEDIA PROGRAM DIRECTOR -Primary Dressing Covered/Secured with Dry Gauze & Dry Gauze Dry Gauze & Roll Gauze, Roll Gauze, Secured with Secured with Tape Tape -Other Covering BACTROBAN -Aquacel Extra 0 -Optilok 6.5x10 -Silvercel 0 Right -Lotion applied to leg before No compression wrap -Multi-Layered Wrap Application Multi-Layer Multi-Layer Comp - Right ($ Comp - Bilat ($ ) ) -Other used 2 kits Left -Other BLE -Multi-Layered Wrap Application Multi-Layer Comp - Bilat ($ ) -Tubular Bandage -Size of Tubigrip Used -Size F ($) -Other [employer] MEDIA PROGRAM DIRECTOR Treatment Response Procedure Procedure Tolerated Well Tolerated Well Vital Signs Temperature (97.8 F-99.1 F) 96.7 F L Temperature Source Temporal Pain Scale: 0-10 Numeric Is Patient Pain Free? Yes Yes Yes WC - Visit Discharge Discharge Condition Stable Stable Stable Ambulatory Status Wheelchair Ambulatory Wheelchair Transportation ECF Private Auto [place] TRANSPORT Medication Reconcilliation completed & Yes provided to patient/care provider Clinical Summary of Care Provided Yes Other ASSISTED LIVING ASSISTED LIVING Additional Wound Wound debrided: Right lower extremity (medial) Type of Debridement: Excisional debridement Anesthesia Used: 5% Lidocaine Gel Depth: Down to and including healthy tissue and in the subcutaneous layer Percentage of wound debrided: 100 Instrument Used: 5mm curette Tissue Removed: Slough and devitalized tissue Severity: Fat Layer Exposed Amount of bleeding with debridement: Mild Bleeding Controlled with: Pressure Patient tolerated procedure: Patient tolerated procedure well Additional Wound Wound debrided: Right foot/medial ankle Type of Debridement: Excisional debridement Anesthesia Used: 5% Lidocaine Gel Depth: Down to and including healthy tissue and in the subcutaneous layer Percentage of wound debrided: 100 Instrument Used: 5mm curette Tissue Removed: Slough and devitalized tissue Severity: Fat Layer Exposed Amount of bleeding with debridement: Mild Bleeding Controlled with: Pressure Patient tolerated procedure: Patient tolerated procedure well Additional Wound Wound debrided: Left Sinclair Type of Debridement: Excisional debridement Anesthesia Used: 4% Lidocaine Solution Depth: Down to and including healthy tissue and in the subcutaneous layer Instrument Used: 5mm curette Tissue Removed: Slough and devitalized tissue Severity: Fat Layer Exposed Amount of bleeding with debridement: Mild Bleeding Controlled with: Pressure Patient tolerated procedure: Patient tolerated procedure well Assessment/Plan Assessment/Plan (1) Ulcer of left lower extremity with fat layer exposed: CODE(S): L97.922 - Non-pressure chronic ulcer of unspecified part of left lower leg with fat layer exposed (2) Ulcer of right lower extremity with fat layer exposed: CODE(S): L97.912 - Non-pressure chronic ulcer of unspecified part of right lower leg with fat layer exposed (3) Ulcer of right foot with fat layer exposed: CODE(S): L97.512 - Non-pressure chronic ulcer of other part of right foot with fat layer exposed (4) Venous insufficiency of both lower extremities: CODE(S): I87.2 - Venous insufficiency (chronic) (peripheral) (5) Borderline type 2 diabetes mellitus: CODE(S): R73.03 - Prediabetes (6) Lymphedema: CODE(S): I89.0 - Lymphedema, not elsewhere classified PLAN: Plan Debridement done as documented above, procedure was well-tolerated. Tolerating both the 3M wrap and lymphedema pump well, significant edema improvement/reduction. New left sinclair ulcer. Aquacel, mupirocin and superabsorbent dressing to right and left leg ulcers. Continue mupirocin and Silvercel to the foot/medial ankle. 3M wraps for edema management. Change on Monday and Monday at the Facility. Elevate lower extremities when seated and in bed. Protein supplements twice daily. His questions were answered and he was advised to call with any further questions or concerns. Follow-up in 1 week. This note was generated with [employer] dictation software. It may contain incorrect words, spelling, and punctuation that were not noted in checking the note before signing.
== END 2023-01-25 23:59 | disposition home or self-care (01) ==
LOC: WC 10:30
PROVIDERS: PCP Internal Medicine; Visit Provider Internal Medicine
DX: L97.512 Non-pressure chronic ulcer of other part of right foot with fat layer exposed (principal); L97.822 Non-pressure chronic ulcer of other part of left lower leg with fat layer exposed; L97.312 Non-pressure chronic ulcer of right ankle with fat layer exposed; I87.2 Venous insufficiency (chronic) (peripheral); R73.03 Prediabetes; I89.0 Lymphedema, not elsewhere classified
CPT/HCPCS: 11042; 11045; 29581

== ENCOUNTER 2023-01-21 16:22 | Inpatient (IN) | payer MEDICARE, MEDICAID, SELFPAY ==
[2023-01-21] VITALS (12 sets, daily range): BP systolic 95–140; BP diastolic 46–88; PULSE 69–102; RESP 19–32; TEMP 36.1–38.5; O2SAT 95–100; BMI 31.4; BMI 30.5
--- NOTE | 2023-01-21 16:41 | EDS_ITS ---
HPI <KEYA Fisher - Last Filed: 01/21/23 19:45> History of Present Illness Chief Complaint: Alt LOC Narrative Narrative: 82-year-old male with PMH of HTN, HLD, CAD, chronic bilateral leg lymphedema presents with altered mental status. He lives in assisted living and last known well was yesterday. When nurse showed up today he seemed confused. Patient cannot state his name but otherwise cannot provide details. PFSH <KEYA Fisher - Last Filed: 01/21/23 19:45> [facility] Medical History Abnormality of gait Atherosclerotic heart disease of [place] coronary artery without angina pectoris Benign neoplasm of colon Bilateral edema of lower extremity Bilateral hearing loss Blind right eye Borderline type 2 diabetes mellitus BPH (benign prostatic hyperplasia) Chronic ulcer of right foot with fat layer exposed Constipation History of non-ST elevation myocardial infarction (NSTEMI) (11/12/18) HTN (hypertension) Hyperlipidemia Lymphedema Osteoarthritis of lumbar spine Physical debility PSA elevation Renal cyst Ulcer of left lower extremity with fat layer exposed Ulcer of right foot with fat layer exposed Ulcer of right lower extremity with fat layer exposed Venous insufficiency Venous insufficiency of both lower extremities Home Medications aspirin 81 mg tablet,delayed release 81 mg PO DAILY@0800 11/13/18 [Rx Last Taken 02/26/20] carbidopa 25 mg-levodopa 100 mg disintegrating tablet 1 ea PO TID tremors 02/23/20 [History Last Taken 02/26/20] furosemide 20 mg tablet 40 mg PO DAILY water pill 05/04/21 [History Last Taken Unknown] polyethylene glycol 3350 17 gram oral powder packet 17 g PO DAILY PRN Constipation 05/04/21 [History Last Taken Unknown] potassium chloride 20 mEq tablet,extended release(part/cryst) See Rx Instructions .Route .COMPLEX health maintenance 05/04/21 [History Last Taken Unknown] atorvastatin 40 mg tablet 80 mg PO QHS 08/07/21 [History Last Taken Unknown] clopidogrel 75 mg tablet (Plavix) 75 mg PO QHS 08/07/21 [History Last Taken Unknown] Milk of Magnesia 30 ml PO/SL DAILY PRN Constipation 11/07/21 [History Last Taken Unknown] bisacodyl 10 mg rectal suppository 10 mg NM DAILY PRN Constipation 11/07/21 [History Last Taken Unknown] glycerin (adult) (Fleet Glycerin (Adult) rectal suppository) 1 supp NM DAILY PRN Constipation 11/07/21 [History Last Taken Unknown] guaifenesin 50 mg/5 mL oral liquid 100 mg PO Q4H PRN Cough 11/07/21 [History Last Taken Unknown] senna-docusate sodium tablet 1 tab PO BID PRN Constipation 11/07/21 [History Last Taken Unknown] guaifenesin 600 mg tablet, extended release 12 hr (Mucinex) 600 mg PO Q12H PRN Cough 01/21/23 [History Last Taken Unknown] Allergy/AdvReac Type Severity Reaction Status Date / Time lemon Allergy Intermediate blisters Verified 01/21/23 16:28 on hands [place] Allergy Intermediate blisters Verified 01/21/23 16:28 on hands strawberry Allergy Intermediate blisters Verified 01/21/23 16:28 on hands Family History Other Diabetes Surgical History Stented coronary artery (11/12/18) Social History Smoking Status: Former smoker ROS <KEYA Fisher - Last Filed: 01/21/23 19:45> ROS ED ROS Narrative Unable to obtain due to altered mental status EXAM <KEYA Fisher - Last Filed: 01/21/23 19:45> Physical Exam Narrative Exam Narrative: CONST: Patient sitting in no acute distress. EYES: Left eye PERRLA, blind in right eye. ENT: Normal inspection, dry mucous membranes. NECK: Normal inspection. RESP: Respiratory rate around 24/minute, CTAB. CVS: Rapid but regular rhythm, no murmur, no gallop. ABD: Soft and nontender, no guarding or rebound, nondistended. SKIN: Color normal, no rash, warm, dry, intact. EXTREMITIES: Both legs have significant lymphedema, chronic wounds. Right leg has very slight erythema on the upper sinclair and warmth. NEURO: Alert to self and place. Stated the year was 2021. PSYCH: Normal affect. Const Vital Signs: 01/21/23 16:23 01/21/23 16:27 01/21/23 16:29 Temperature 101.3 F H 101.3 F H Temperature Source Temporal Temporal Pulse Rate 101 H 102 H Respiratory Rate 31 H 32 H Respiratory Effort Normal Non-Labored Respiratory Pattern Irregular Blood Pressure 140/69 H 140/69 H Blood Pressure Mean 92 92 Pulse Ox 96 95 Oxygen Delivery Method Room Air Room Air 01/21/23 16:38 01/21/23 18:40 01/21/23 19:05 Temperature 99.2 F H Temperature Source Temporal Pulse Rate 76 75 Respiratory Rate 24 H 24 H Respiratory Effort Respiratory Pattern Blood Pressure 95/46 L 105/60 Blood Pressure Mean 62 75 Pulse Ox 95 97 Oxygen Delivery Method Room Air Room Air Room Air 01/21/23 19:53 01/21/23 21:00 Temperature 97.9 F 97.8 F Temperature Source Temporal Temporal Pulse Rate 78 69 Respiratory Rate 24 H 19 H Respiratory Effort Respiratory Pattern Blood Pressure 111/56 L 108/88 H Blood Pressure Mean 74 94 Pulse Ox 99 97 Oxygen Delivery Method Room Air Room Air <Dr. Eliazar Gonzales DO - Last Filed: 01/22/23 00:20> Physical Exam Const Vital Signs: 01/21/23 16:23 01/21/23 16:27 01/21/23 16:29 Temperature 101.3 F H 101.3 F H Temperature Source Temporal Temporal Pulse Rate 101 H 102 H Respiratory Rate 31 H 32 H Respiratory Effort Normal Non-Labored Respiratory Pattern Irregular Blood Pressure 140/69 H 140/69 H Blood Pressure Mean 92 92 Pulse Ox 96 95 Oxygen Delivery Method Room Air Room Air 01/21/23 16:38 01/21/23 18:40 01/21/23 19:05 Temperature 99.2 F H Temperature Source Temporal Pulse Rate 76 75 Respiratory Rate 24 H 24 H Respiratory Effort Respiratory Pattern Blood Pressure 95/46 L 105/60 Blood Pressure Mean 62 75 Pulse Ox 95 97 Oxygen Delivery Method Room Air Room Air Room Air 01/21/23 19:53 01/21/23 21:00 Temperature 97.9 F 97.8 F Temperature Source Temporal Temporal Pulse Rate 78 69 Respiratory Rate 24 H 19 H Respiratory Effort Respiratory Pattern Blood Pressure 111/56 L 108/88 H Blood Pressure Mean 74 94 Pulse Ox 99 97 Oxygen Delivery Method Room Air Room Air MDM <KEYA Fisher - Last Filed: 01/21/23 19:45> MDM MDM Narrative Medical decision making narrative: History gathered from: Paramedics, assisted living records Patient brought in by EMS for altered mental status. Found to be febrile, slightly tachycardic and tachypneic. Stable blood pressure 140/69. He is alert to self and place only. I am not sure of his baseline. He is on medications for Parkinson's. Patient has no obvious source of infection on exam. He does have chronic leg lymphedema and wounds and the right leg feels warm but there is no obvious jonah cellulitis. Sepsis work-up was initiated and shows a white count of 20.4, lactate 2.5, BMP within normal limits. CXR and UA are negative for infection. COVID and flu testing also negative. Potential source is cellulitis/wound on his right leg and he was treated with IV Zosyn. Case was discussed with the hospitalist for admission. Consults: Hospitalist Differential: Infectious process such as pneumonia, UTI, cellulitis, COVID Lab Data Attestation: I reviewed the patient's lab results. Labs: Laboratory Results - last 24 hr 01/21/23 01/21/23 01/21/23 16:40 16:45 16:45 WBC 20.4 H RBC 4.63 Hgb 12.3 L Hct 39.0 L MCV 84.2 MCH 26.6 L MCHC 31.5 L RDW Std Deviation 48.4 H RDW Coeff of Donnie 15.9 H Plt Count 190 MPV 10.2 Immature Gran % (Auto) 2.600 H Neut % (Auto) 90.2 H Lymph % (Auto) 2.7 L [place] % (Auto) 4.3 Eos % (Auto) 0.0 Baso % (Auto) 0.2 Absolute Neuts (auto) 18.4 H Absolute Lymphs (auto) 0.55 L Nucleated RBC % 0 Differential Comment SCANNED PT 15.6 H INR 1.2 APTT 33.1 Sodium Potassium Chloride Carbon Dioxide Anion Gap BUN Creatinine Estim Creat Clear Calc Est GFR (MDRD) Af Amer Est GFR (MDRD) Non-Af BUN/Creatinine Ratio Glucose Lactic Acid Calcium Total Bilirubin AST ALT Alkaline Phosphatase Total Protein Albumin Globulin Albumin/Globulin Ratio Urine Color Yellow Urine Clarity Clear Urine pH 8.0 Ur Specific [place] 1.010 Urine Protein 15 H Urine Glucose (UA) Normal Urine Ketones Negative Urine Occult Blood 150 H Urine Nitrite Negative Urine Bilirubin Negative Urine Urobilinogen 1 H Ur Leukocyte Esterase 25 H Urine RBC 10-25 SEEN Urine WBC 0 SEEN Ur Squamous Epith Cells 0 SEEN Urine Bacteria 0 SEEN Urine Mucus 0 SEEN 01/21/23 01/21/23 16:45 16:45 WBC RBC Hgb Hct MCV MCH MCHC RDW Std Deviation RDW Coeff of Donnie Plt Count MPV Immature Gran % (Auto) Neut % (Auto) Lymph % (Auto) [place] % (Auto) Eos % (Auto) Baso % (Auto) Absolute Neuts (auto) Absolute Lymphs (auto) Nucleated RBC % Differential Comment PT INR APTT Sodium 139 Potassium 3.8 Chloride 105 Carbon Dioxide 28.0 Anion Gap 6 BUN 18 Creatinine 1.26 Estim Creat Clear Calc 51.32 Est GFR (MDRD) Af Amer 71 Est GFR (MDRD) Non-Af 58 L BUN/Creatinine Ratio 14.3 Glucose 105 Lactic Acid 2.5 H* Calcium 9.1 Total Bilirubin 0.80 AST 29 ALT 11 L Alkaline Phosphatase 87 Total Protein 8.2 Albumin 3.5 Globulin 4.7 H Albumin/Globulin Ratio 0.7 L Urine Color Urine Clarity Urine pH Ur Specific [place] Urine Protein Urine Glucose (UA) Urine Ketones Urine Occult Blood Urine Nitrite Urine Bilirubin Urine Urobilinogen Ur Leukocyte Esterase Urine RBC Urine WBC Ur Squamous Epith Cells Urine Bacteria Urine Mucus Radiography Diagnostic Testing: Clinical Impression(s) from Imaging Studies Chest X-Ray 01/21/23 16:45 IMPRESSION: No radiographic evidence of acute cardiopulmonary disease. Electronically Signed: Janet Luu MD at 17:29 EDT Reading Location ID and State: [id number] / Tel , Service support , ED attending interpretation shows normal heart size, no acute infiltrate, edema, or effusion. <Dr. Eliazar Gonzales, DO - Last Filed: 01/22/23 00:20> [facility] Lab Data Labs: Laboratory Results - last 24 hr 01/21/23 01/21/23 01/21/23 16:40 16:45 16:45 WBC 20.4 H RBC 4.63 Hgb 12.3 L Hct 39.0 L MCV 84.2 MCH 26.6 L MCHC 31.5 L RDW Std Deviation 48.4 H RDW Coeff of Donnie 15.9 H Plt Count 190 MPV 10.2 Immature Gran % (Auto) 2.600 H Neut % (Auto) 90.2 H Lymph % (Auto) 2.7 L [place] % (Auto) 4.3 Eos % (Auto) 0.0 Baso % (Auto) 0.2 Absolute Neuts (auto) 18.4 H Absolute Lymphs (auto) 0.55 L Nucleated RBC % 0 Differential Comment SCANNED PT 15.6 H INR 1.2 APTT 33.1 Sodium Potassium Chloride Carbon Dioxide Anion Gap BUN Creatinine Estim Creat Clear Calc Est GFR (MDRD) Af Amer Est GFR (MDRD) Non-Af BUN/Creatinine Ratio Glucose Lactic Acid Calcium Total Bilirubin AST ALT Alkaline Phosphatase Total Protein Albumin Globulin Albumin/Globulin Ratio Urine Color Yellow Urine Clarity Clear Urine pH 8.0 Ur Specific [place] 1.010 Urine Protein 15 H Urine Glucose (UA) Normal Urine Ketones Negative Urine Occult Blood 150 H Urine Nitrite Negative Urine Bilirubin Negative Urine Urobilinogen 1 H Ur Leukocyte Esterase 25 H Urine RBC 10-25 SEEN Urine WBC 0 SEEN Ur Squamous Epith Cells 0 SEEN Urine Bacteria 0 SEEN Urine Mucus 0 SEEN 01/21/23 01/21/23 16:45 16:45 WBC RBC Hgb Hct MCV MCH MCHC RDW Std Deviation RDW Coeff of Donnie Plt Count MPV Immature Gran % (Auto) Neut % (Auto) Lymph % (Auto) [place] % (Auto) Eos % (Auto) Baso % (Auto) Absolute Neuts (auto) Absolute Lymphs (auto) Nucleated RBC % Differential Comment PT INR APTT Sodium 139 Potassium 3.8 Chloride 105 Carbon Dioxide 28.0 Anion Gap 6 BUN 18 Creatinine 1.26 Estim Creat Clear Calc 51.32 Est GFR (MDRD) Af Amer 71 Est GFR (MDRD) Non-Af 58 L BUN/Creatinine Ratio 14.3 Glucose 105 Lactic Acid 2.5 H* Calcium 9.1 Total Bilirubin 0.80 AST 29 ALT 11 L Alkaline Phosphatase 87 Total Protein 8.2 Albumin 3.5 Globulin 4.7 H Albumin/Globulin Ratio 0.7 L Urine Color Urine Clarity Urine pH Ur Specific [place] Urine Protein Urine Glucose (UA) Urine Ketones Urine Occult Blood Urine Nitrite Urine Bilirubin Urine Urobilinogen Ur Leukocyte Esterase Urine RBC Urine WBC Ur Squamous Epith Cells Urine Bacteria Urine Mucus Radiography Diagnostic Testing: Clinical Impression(s) from Imaging Studies Chest X-Ray 01/21/23 16:45 IMPRESSION: No radiographic evidence of acute cardiopulmonary disease. Electronically Signed: Janet Luu MD at 17:29 EDT Reading Location ID and State: [id number] / Tel , Service support , EKG Initial EKG: Attestation: I personally reviewed and interpreted this EKG as follows: Interpretation: Sinus Rhythm (98) and No Acute Injury Pattern Comments: EKG was obtained. On my independent interpretation, it showed a normal sinus rhythm with a rate of 98. NM interval, QRS interval, and QTc intervals were all normal. There is left axis deviation at -30. There are no acute ST or T wave changes. Prior EKG tracings: available for review Prior: Unchanged (02/09/2021) Management Discussion w/another healthcare provider: Hospitalist Treatment and Re-Evaluation :: I have personally performed a face to face assessment of the patient and have reviewed the TONY Note. I performed a substantive portion of the visit including all aspects of the following. My daly findings include: History: Patient presents with confusion and fever that was noticed today. prison staff does not know when his last known well was. Patient denies any chest pain. Patient denies any shortness of breath. Patient denies any cough. Patient denies any urinary complaints. Patient denies any abdominal pain. Patient denies any nausea or vomiting. Exam: Vital signs were stable except for tachypnea of 32 and a temperature of 101.3. Pulse oximeter is 95% on room air. Patient is in no acute distress. Oral mucosa is pink and moist. Neck is supple. Trachea is midline. There is no JVD. Heart was regular and tachycardic. Lungs are diminished bilaterally. There is poor respiratory effort noted. Abdomen is soft. Bowel sounds are normal. There is no tenderness. There is 3+ edema of the lower extremities bilaterally. Medical Decision Making: Differential diagnosis includes sepsis, pneumonia, urinary tract infection, cellulitis, COVID-19 infection, influenza infection, congestive heart failure, and cardiac ischemia. EKG will be obtained to assess for cardiac dysrhythmia and cardiac ischemia. Chest x-ray will be obtained to assess for pneumonia and congestive heart failure. CBC will be obtained to assess for leukocytosis and anemia. Comprehensive metabolic profile will be obtained to assess for hepatic function, renal function, and electrolyte abnormality. Serum lactate will be obtained to assess for sepsis. PT with INR and PTT will be obtained to assess for coagulopathy. Urinalysis will be obtained to assess for urinary tract infection. Urine cultures and blood cultures will be obtained. CBC was reviewed and shows a leukocytosis of 20.4. Hemoglobin was stable at 12.3 and hematocrit was 39.0. Platelets were normal. Comprehensive metabolic profile was reviewed and was essentially within normal limits. PT with INR and PTT were reviewed. PT was 15.6 seconds and INR was 1.2. PTT was normal at 33.1. Lactate was reviewed and was elevated at 2.5. Urinalysis was reviewed. Occult blood was 150 with 10-25 red blood cells. There is a leukocyte esterase of 25 with 0 white blood cells and 0 bacteria seen. COVID-19 rapid antigen was reviewed and was negative. Influenza A and influenza B rapid antigens were reviewed and were negative. Chest x-ray was reviewed. There is 1 view. On my independent interpretation, there is no acute cardiopulmonary process noted. Radiologist also interpreted the x-rays and agrees. Patient does appear to have criteria for sepsis which is likely from his cellulitis in his legs. Patient was started on Zosyn. Case was discussed with the hospitalist. He will admit the patient to his service. Patient understood and was agreeable with the plan. All questions were answered. Discharge Plan Dx/Rx/DC Orders Clinical Impression: Sepsis, Lymphedema, Leg wound, right, Encephalopathy Disposition Disposition: Acute Care Hospital [facility] Discharge Date/Time: 01/21/23 21:29
--- NOTE | 2023-01-21 16:45 | RAD_ITS ---
INDICATION: fever EXAMINATION/TECHNIQUE: X-RAY - XR Chest 1 View COMPARISON: 11/09/2018. FINDINGS: LINES/DEVICES: None. LUNGS: No consolidation, edema or effusion. No pneumothorax. MEDIASTINUM AND CARDIOVASCULAR STRUCTURES: Cardiac silhouette not enlarged. Central airways and mediastinal contour are unremarkable. BONES AND SOFT TISSUES: Unremarkable. RAD/Chest 1 View (Portable) IMPRESSION: No radiographic evidence of acute cardiopulmonary disease. Electronically Signed: Janet Luu MD at 17:29 EDT Reading Location ID and State: [id number] / Tel , Service support ,
[2023-01-21] MEDS: Acetaminophen 500 MG Tablet 1000 MG PO (16:59)
[2023-01-21] MEDS: 0.9% Normal Saline 1,000 ML 999 ML IV ×2 (17:00→18:39)
[2023-01-21 17:01] LABS: Bacteria 0 SEEN /hpf (None Seen); Mucous, Urine 0 SEEN /hpf (<or=2+); Squamous Epithelial Cells - UA 0 SEEN /hpf (0-5); White Blood Cells 0 SEEN /hpf (0-5)
[2023-01-21 17:04] LABS: Absolute Lymphocyte Count 0.55 X10^3/uL (0.83-4.51); Absolute Neutrophil Count 18.4 X10^3/uL (2.0-7.7); Basophil# 0.05 X10^3/uL; Basophil% 0.2 % (0-1); Hemoglobin 12.3 g/dL (13.0-16.5); Lymphocyte # 0.55 X10^3/ul (0.83-4.51); Lymphocyte % 2.7 % (19-41); Mean Corp Hgb Conc 31.5 g/dL (32-36); Mean Corpuscular Hgb 26.6 pg (27.0-32.0); Mean Corpuscular Volume 84.2 fL (80-94); Mean Platelet Vol. 10.2 fl (6.2-12.0); Monocyte# 0.88 X10^3/uL; Monocyte% 4.3 % (0-10); NRBC Flagged by Analyzer 0 % (0-5); Neutrophil # 18.42 X10^3/uL (2.7-7.7); Neutrophil % 90.2 % (47-70); POSITIVE DIFFERENTIAL YES; Platelet Count 190 K/mm3 (150-450); RBC Distribution Width CV 15.9 % (11.6-14.6); RBC Distribution Width SD 48.4 fl (35.1-43.9); Red Blood Count 4.63 M/mm3 (4.6-6.2); White Blood Count 20.4 K/mm3 (4.4-11.0)
[2023-01-21 17:17] LABS: International Normalized Ratio 1.2; Partial Thromboplast Time 33.1 Seconds (24.1-36.2); Prothrombin Time (Protime)PT. 15.6 SECONDS (11.7-14.9)
[2023-01-21 17:18] LABS: Color, Urine Yellow (Yellow); Glucose, Dipstick Normal (Normal); Ketone-Dipstick Negative (Negative); Leukocyte Esterase-Dipstick 25 /ul (Negative); Nitrite-Dipstick Negative (Negative); Occult Blood-Urine 150 /ul (Negative); Protein-Dipstick 15 mg/dl (Negative); Urine Bilirubin Dipstick Negative (Negative); Urine Clarity Clear (Clear); Urine Urobilinogen 1 mg/dl (Normal)
[2023-01-21 17:25] LABS: Differential Indicated SCAN CRITERIA MET
[2023-01-21 17:26] LABS: Lactic Acid 2.5 mmol/L (0.4-1.9)
[2023-01-21 17:29] LABS: ALB/GLOB Ratio 0.7 RATIO (0.9-2.4); AST(SGOT) 29 U/L (15-37); Alanine Aminotransfer ALT/SGPT 11 U/L (16-61); Albumin, Serum 3.5 g/dL (3.2-5.0); Alkaline Phosphatase 87 U/L (45-117); Anion Gap 6 (5-15); BUN 18 mg/dL (7-18); BUN/Creat Ratio 14.3 RATIO (10-20); Calcium,Total 9.1 mg/dL (8.5-10.1); Chloride 105 mmol/L (98-107); Creatinine, Serum 1.26 mg/dL (0.70-1.30); EST Glomerular Filtration Rate 58 mL/min (>60); Est Glom Filt Rate - Afr Amer 71 mL/min (>60); Estimated Creatinine Clearance 51.32 ml/min; Globulin 4.7 g/dL (2.2-4.2); Glucose 105 mg/dL (74-106); Potassium 3.8 mmol/L (3.5-5.1); Protein, Total 8.2 g/dL (6.4-8.2); Sodium Level 139 mmol/L (136-145)
[2023-01-21 18:02] LABS: Differential Comment SCANNED
[2023-01-21 19:05] LABS: Red Blood Cells-Urine 10-25 SEEN /hpf (0-5)
[2023-01-21] MEDS: Ketorolac 15 MG/ML Vial IV (19:50)
[2023-01-21 20:55] LABS: Reflex Lactate? Y
--- NOTE | 2023-01-21 21:07 | PCM.HP.STD ---
HPI - General General Date of Admission: 01/21/23 Date of Service: 01/21/23 Chief Complaint: Confusion HPI Narrative RADHA ZAMBRANO, is a 82 M with a significant history of CAD status post stent; artificial right eye; bilateral lymphedema of his bilateral legs and Parkinson disease who presents to the emergency department from the long term; and who presents with altered mental status. Reportedly patient was confused. History was taken from emergency department provider as patient could not provide any history. However patient denies pain. He stated that he does not know why he is at the hospital. 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 BPH (benign prostatic hyperplasia) Chronic ulcer of right foot with fat layer exposed Constipation History of non-ST elevation myocardial infarction (NSTEMI) (11/12/18) HTN (hypertension) Hyperlipidemia Lymphedema Osteoarthritis of lumbar spine Physical debility PSA elevation Renal cyst Ulcer of left lower extremity with fat layer exposed Ulcer of right foot with fat layer exposed Ulcer of right lower extremity with fat layer exposed Venous insufficiency Venous insufficiency of both lower extremities Home Medications aspirin 81 mg tablet,delayed release 81 mg PO DAILY@0800 11/13/18 [Rx Last Taken 02/26/20] carbidopa 25 mg-levodopa 100 mg disintegrating tablet 1 ea PO TID tremors 02/23/20 [History Last Taken 02/26/20] furosemide 20 mg tablet 40 mg PO DAILY water pill 05/04/21 [History Last Taken Unknown] polyethylene glycol 3350 17 gram oral powder packet 17 g PO DAILY PRN Constipation 05/04/21 [History Last Taken Unknown] potassium chloride 20 mEq tablet,extended release(part/cryst) See Rx Instructions .Route .COMPLEX health maintenance 05/04/21 [History Last Taken Unknown] atorvastatin 40 mg tablet 80 mg PO QHS 08/07/21 [History Last Taken Unknown] clopidogrel 75 mg tablet (Plavix) 75 mg PO QHS 08/07/21 [History Last Taken Unknown] Milk of Magnesia 30 ml PO/SL DAILY PRN Constipation 11/07/21 [History Last Taken Unknown] bisacodyl 10 mg rectal suppository 10 mg [place] DAILY PRN Constipation 11/07/21 [History Last Taken Unknown] glycerin (adult) (Fleet Glycerin (Adult) rectal suppository) 1 supp [place] DAILY PRN Constipation 11/07/21 [History Last Taken Unknown] guaifenesin 50 mg/5 mL oral liquid 100 mg PO Q4H PRN Cough 11/07/21 [History Last Taken Unknown] senna-docusate sodium tablet 1 tab PO BID PRN Constipation 11/07/21 [History Last Taken Unknown] guaifenesin 600 mg tablet, extended release 12 hr (Mucinex) 600 mg PO Q12H PRN Cough 01/21/23 [History Last Taken Unknown] Allergy/AdvReac Type Severity Reaction Status Date / Time lemon Allergy Intermediate blisters Verified 01/21/23 16:[address] [facility] Allergy Intermediate blisters Verified 01/21/23 16:28 on hands [place] Allergy Intermediate blisters Verified 01/21/23 16:28 on hands Family History Other Diabetes Surgical History Stented coronary artery (11/12/18) Social History Smoking Status: Former smoker ROS Review of Systems ROS Unobtainable: due to mental condition Vital Signs Vital Signs Vital Signs: 01/21/23 16:23 01/21/23 16:27 01/21/23 16:29 Temperature 101.3 F H 101.3 F H Temperature Source Temporal Temporal Pulse Rate 101 H 102 H Respiratory Rate 31 H 32 H Respiratory Effort Normal Non-Labored Respiratory Pattern Irregular Blood Pressure 140/69 H 140/69 H Blood Pressure Mean 92 92 Pulse Ox 96 95 Oxygen Delivery Method Room Air Room Air 01/21/23 16:38 01/21/23 18:40 01/21/23 19:05 Temperature 99.2 F H Temperature Source Temporal Pulse Rate 76 75 Respiratory Rate 24 H 24 H Respiratory Effort Respiratory Pattern Blood Pressure 95/46 L 105/60 Blood Pressure Mean 62 75 Pulse Ox 95 97 Oxygen Delivery Method Room Air Room Air Room Air 01/21/23 19:53 Temperature 97.9 F Temperature Source Temporal Pulse Rate 78 Respiratory Rate 24 H Respiratory Effort Respiratory Pattern Blood Pressure 111/56 L Blood Pressure Mean 74 Pulse Ox 99 Oxygen Delivery Method Room Air Weight Weight: 105.1 kg Body Mass Index (BMI) 31.4 Physical Exam Narrative Physical exam: General: Well-nourished, well-developed. Head: Normocephalic, atraumatic, no tenderness Eyes: EOMI. ENT, no trauma, moist mucous membranes, no rhinorrhea Neck: Nontender, No thyromegaly. CVS: Regular rate and rhythm. S1-S2 present. No murmur, gallop or rub. Respiratory : clear to auscultation bilaterally, chest wall nontender Abdomen: Soft, nontender, nondistended, normal bowel sounds, no masses : Deferred Back: Nontender, no CVA tenderness. Extremities: Swelling of bilateral lower legs with excoriations and abrasions. Skin: Normal color, no trauma, abrasions Neuro: Lethargic. Patient knows the month and the year. He stated that it was January 23 instead of January 21. Psychiatry: Normal mood. Normal affect. Not depressed. Not anxious. Results Lab / Micro Data Attestation: I reviewed the patient's lab results. Result Diagrams: 01/21/23 16:45 01/21/23 16:45 Labs: Laboratory Results - last 24 hr 01/21/23 16:40: Urine Color Yellow, Urine Clarity Clear, Urine pH 8.0, Ur Specific [place] 1.010, Urine Protein 15 H, Urine Glucose (UA) Normal, Urine Ketones Negative, Urine Occult Blood 150 H, Urine Nitrite Negative, Urine Bilirubin Negative, Urine Urobilinogen 1 H, Ur Leukocyte Esterase 25 H, Urine RBC 10-25 SEEN, Urine WBC 0 SEEN, Ur Squamous Epith Cells 0 SEEN, Urine Bacteria 0 SEEN, Urine Mucus 0 SEEN 01/21/23 16:45: WBC 20.4 H, RBC 4.63, Hgb 12.3 L, Hct 39.0 L, MCV 84.2, MCH 26.6 L, MCHC 31.5 L, RDW Std Deviation 48.4 H, RDW Coeff of Donnie 15.9 H, Plt Count 190, MPV 10.2, Immature Gran % (Auto) 2.600 H, Neut % (Auto) 90.2 H, Lymph % (Auto) 2.7 L, [place] % (Auto) 4.3, Eos % (Auto) 0.0, Baso % (Auto) 0.2, Absolute Neuts (auto) 18.4 H, Absolute Lymphs (auto) 0.55 L, Nucleated RBC % 0, Differential Comment SCANNED 01/21/23 16:45: PT 15.6 H, INR 1.2, APTT 33.1 01/21/23 16:45: Sodium 139, Potassium 3.8, Chloride 105, Carbon Dioxide 28.0, Anion Gap 6, BUN 18, Creatinine 1.26, Estim Creat Clear Calc 51.32, Est GFR (MDRD) Af Amer 71, Est GFR (MDRD) Non-Af 58 L, BUN/Creatinine Ratio 14.3, Glucose 105, Calcium 9.1, Total Bilirubin 0.80, AST 29, ALT 11 L, Alkaline Phosphatase 87, Total Protein 8.2, Albumin 3.5, Globulin 4.7 H, Albumin/Globulin Ratio 0.7 L 01/21/23 16:45: Lactic Acid 2.5 H* Micro: Microbiology 01/21/23 16:40 Nasal Secretion SARS-CoV-2 & FLU Antigen (Rapid) - Final Radiology Impression Chest X-Ray 01/21/23 16:45 IMPRESSION: No radiographic evidence of acute cardiopulmonary disease. Electronically Signed: Janet Luu MD at 17:29 EDT Reading Location ID and State: [id number] / Tel , Service support , Assessment & Plan Assessment/Plan (1) Sepsis: QUALIFIERS: Sepsis type: sepsis due to unspecified organism Sepsis acute organ dysfunction status: with acute organ dysfunction Severe sepsis acute organ dysfunction type: encephalopathy (2) Lymphedema: (3) Cellulitis: (4) Encephalopathy: PLAN: Plan The patient presented with sepsis with unclear etiology but cannot rule out right leg cellulitis and with acute sepsis related organ dysfunction as evidenced by (lactic acidosis). SIRS criteria: Tmax of presentation was 101.3 Fahrenheit. Respiratory rate as high as 32 on presentation. On presentation white count was 20,400 (with bandemia of 2.6%; neutrophilia of 90.2% and lymphopenia of 2.7%) His right leg is mildly erythematous compared to left. Right leg also has mildly increasing warmth compared to left. With bilateral lymphedema it is difficult to say whether patient has definite cellulitis. In the absence of no clear source we will treat patient as a cellulitis as we pursue other work-up. Urinalysis was reviewed and is not impressive. Chest x-ray was reviewed and is not impressive. Patient does not have shortness of breath. Less likely pneumonia. We will get MRSA of blood. Blood culture x2 ordered emergency department, follow. Lactic acid on presentation was 2.5, trend. Started on Zosyn emergency department and continued. Blood culture was obtained on presentation, follow. Trend lactic acid. Acute infectious encephalopathy Secondary to sepsis. Treatment as above. Lymphedema Persistent IV fluids given the emergency department. We will continue home diuretics for lymphedema. Consult wound care nurse for lymphedema. DVT prophylaxis: Subcutaneous Lovenox ordered. Charges/Coding Visit Charges Inpatient E&M: 28409 Init Hosp L3
--- NOTE | 2023-01-21 21:27 | ED.RN ---
report called to Gini lorenzo [facility] updated on pt admission to hospital.
[2023-01-21 21:54] LABS: Lactic Acid 1.8 mmol/L (0.4-1.9)
--- NOTE | 2023-01-21 23:00 | NURSING ---
Pt asking if correction sent his dentures with him to the hospital. Informed pt that his dentures are not present with his belongings upon at admission.
[2023-01-21] MEDS: Clopidogrel Bisulfate 75 MG Tablet PO (23:06)
[2023-01-21] MEDS: Atorvastatin Calcium 80 MG Tablet PO (23:07)
[2023-01-21 23:38] LABS: Probe Check PASS
[2023-01-21 23:39] LABS: M R Staph aureus DNA By PCR POSITIVE (Negative)
[2023-01-22] VITALS (16 sets, daily range): BP systolic 86–130; BP diastolic 46–108; PULSE 66–84; RESP 14–24; TEMP 36.1–38.1; O2SAT 96–99; BMI 30.4
[2023-01-22] MEDS: MELATONIN 3 MG TABLET PO (00:02)
[2023-01-22] MEDS: Acetaminophen 325 MG Tablet 650 MG PO ×3 (00:02→21:28)
[2023-01-22 05:35] LABS: Absolute Lymphocyte Count 0.85 X10^3/uL (0.83-4.51); Absolute Neutrophil Count 16.8 X10^3/uL (2.0-7.7); Basophil# 0.04 X10^3/uL; Basophil% 0.2 % (0-1); Hematocrit 37.5 % (40-54); Hemoglobin 11.7 g/dL (13.0-16.5); Lymphocyte # 0.85 X10^3/ul (0.83-4.51); Lymphocyte % 4.6 % (19-41); Mean Corp Hgb Conc 31.2 g/dL (32-36); Mean Corpuscular Hgb 26.6 pg (27.0-32.0); Mean Corpuscular Volume 85.2 fL (80-94); Monocyte# 0.83 X10^3/uL; Monocyte% 4.5 % (0-10); NRBC Flagged by Analyzer 0 % (0-5); Neutrophil # 16.77 X10^3/uL (2.7-7.7); Neutrophil % 89.8 % (47-70); Platelet Count 175 K/mm3 (150-450); RBC Distribution Width CV 16.1 % (11.6-14.6); RBC Distribution Width SD 50.1 fl (35.1-43.9); White Blood Count 18.7 K/mm3 (4.4-11.0)
[2023-01-22] MEDS: Carbidopa/Levodopa 25/100 Tablet PO ×3 (05:43→16:28)
[2023-01-22 05:58] LABS: Anion Gap 6 (5-15); BUN 24 mg/dL (7-18); Calcium,Total 8.4 mg/dL (8.5-10.1); Chloride 108 mmol/L (98-107); Creatinine, Serum 1.26 mg/dL (0.70-1.30); EST Glomerular Filtration Rate 58 mL/min (>60); Est Glom Filt Rate - Afr Amer 71 mL/min (>60); Estimated Creatinine Clearance 54.37 ml/min; Glucose 87 mg/dL (74-106); Sodium Level 140 mmol/L (136-145)
--- NOTE | 2023-01-22 06:31 | PCM.RX.CS ---
Consult Pharmacy has been consulted to manage selected antiobiotic: Vancomycin Type of Consult: New start Suspected Infection: Sepsis Prior Doses of Antibiotics Received/Current Regimen: Medications Vancomycin HCl (Vancomycin) 1,000 mg in 200 mls @ 200 mls/hr IV Q12H SWATHI Vancomycin HCl 1,500 mg/ (Sodium Chloride) 530 mls @ 250 mls/hr IV X1 ONE Stop: 01/22/23 08:37 Last Admin: 01/22/23 06:20 Dose: 250 mls/hr Labs: Sodium 140 mmol/L (136-145) 01/22/23 05:30 Potassium 4.0 mmol/L (3.5-5.1) 01/22/23 05:30 Chloride 108 mmol/L (98-107) H 01/22/23 05:30 Carbon Dioxide 26.0 mmol/L (21.0-32.0) 01/22/23 05:30 Anion Gap 6 (5-15) 01/22/23 05:30 BUN 24 mg/dL (7-18) H 01/22/23 05:30 Creatinine 1.26 mg/dL (0.70-1.30) 01/22/23 05:30 Est GFR (MDRD) Af Amer 71 mL/min (>60) 01/22/23 05:30 Est GFR (MDRD) Non-Af 58 mL/min (>60) L 01/22/23 05:30 BUN/Creatinine Ratio 19.0 RATIO (10-20) 01/22/23 05:30 Glucose 87 mg/dL (74-106) 01/22/23 05:30 Microbiology: Microbiology 01/21/23 16:40 Nasal Secretion SARS-CoV-2 & FLU Antigen (Rapid) - Final Weight used for dosin.7 kg Estimated Creatinine Clearance: 54 Goal Trough: 15-20 mcg/mL Pharmacy Plan for Drug Dosing: Pharmacy Service will continue to monitor and adjust dosing as required. Follow-Up Labs: Trough Vancomycin Labs to be done on [date and time ordered]: 01/23/23 @1800
--- NOTE | 2023-01-22 07:06 | EX.PCM.CONCC ---
Assessment & Plan Assessment/Plan (1) Sepsis: QUALIFIERS: Sepsis type: sepsis due to unspecified organism Sepsis acute organ dysfunction status: with acute organ dysfunction Severe sepsis acute organ dysfunction type: encephalopathy PLAN: Plan RECOMMENDATIONS: 1. Add vancomycin given MRSA swab positive 2. Await cultures 3. Wound care for lower extremities 4. Symptomatic control of fever 5. Delirium protocol 6. Okay to leave the intensive care unit 7. Hemodynamically stable on room air. Will sign off from a critical care perspective IMPRESSIONS: 1. Sepsis of unclear etiology Patient did present with fever, tachypnea and leukocytosis. Patient does have some increased erythema noted on the right compared to the left lower extremity with chronic lymphedema. Clinical suspicion is for cellulitis as an etiology. Patient's nasal swab is positive for MRSA, so we will add vancomycin until culture data can be obtained. Evidence of endorgan damage by delirium, which appears to be improving. Urinalysis was not suggestive of a UTI. 2. Acute metabolic encephalopathy/delirium Clinical suspicion this is secondary to problem #1. Unfortunately, patient cannot provide much additional information. We will continue to address electrolytes as indicated. Avoid benzodiazepines if possible. This is complicated by patient's reported hearing loss and right eye blindness. 3. Right eye blindness/hyperlipidemia/CAD/prediabetic state Complicates care, management, recovery and prognosis. Likely okay to continue with current medications. Patient may require some sliding scale insulin given increased endogenous steroids given problem #1. HPI Consult Data Date of Consult: 01/22/23 HPI Narrative HPI Narrative: RADHA ZAMBRANO is an 82 M, with PMH listed below, who presents to [facility] on 01/21/2023 secondary to confusion. Patient reportedly lives in assisted living and was last known well on the day before presentation. Patient reportedly had a nurse show up in noted that he was confused and asked that he be transported to the ER for further evaluation. Patient does have an extensive history of hypertension, hyperlipidemia, CAD and chronic lymphedema. In the ER, patient was febrile at 101.3 ?F, normotensive but tachypneic at 32 breaths/min. Patient saturating well on room air. Laboratory data showed a white blood cell count of 20.4 with a hemoglobin of 12.3 and platelets of 190. Coagulation studies were within normal limits. UA was unremarkable. Chemistry showed an elevated bicarbonate of 28, creatinine of 1.26 and a lactate of 2.5. Liver function studies were within normal limits. Chest x-ray showed no acute infiltrate. COVID-19 rapid and influenza were all negative. There was some concern for sepsis secondary to cellulitis of his legs so he was started on Zosyn therapy and admitted to the hospital. In the intensive care unit, patient has done well. Patient is not requiring any pressors at this time. Patient has not received any additional fluid boluses. Patient's mentation has somewhat improved. Patient is not able to provide much additional information, but does state that he is at [facility]. Patient is unable to state when he started to have issues. Patient reportedly does not use oxygen at baseline. Patient is not reporting any dysuria. Patient does have decreased sensation of bilateral lower extremities. Reliability is questionable, but review of systems otherwise negative from a constitutional, HEENT, respiratory, cardiovascular, GI, genitourinary, musculoskeletal, skin, neurologic, psychiatric and hematologic system unless stated above. 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 BPH (benign prostatic hyperplasia) Chronic ulcer of right foot with fat layer exposed Constipation History of non-ST elevation myocardial infarction (NSTEMI) (11/12/18) HTN (hypertension) Hyperlipidemia Lymphedema Osteoarthritis of lumbar spine Physical debility PSA elevation Renal cyst Ulcer of left lower extremity with fat layer exposed Ulcer of right foot with fat layer exposed Ulcer of right lower extremity with fat layer exposed Venous insufficiency Venous insufficiency of both lower extremities Home Medications aspirin 81 mg tablet,delayed release 81 mg PO DAILY@0800 11/13/18 [Rx Last Taken 02/26/20] carbidopa 25 mg-levodopa 100 mg disintegrating tablet 1 ea PO TID tremors 02/23/20 [History Last Taken 02/26/20] furosemide 20 mg tablet 40 mg PO DAILY water pill 05/04/21 [History Last Taken Unknown] polyethylene glycol 3350 17 gram oral powder packet 17 g PO DAILY PRN Constipation 05/04/21 [History Last Taken Unknown] potassium chloride 20 mEq tablet,extended release(part/cryst) See Rx Instructions .Route .COMPLEX health maintenance 05/04/21 [History Last Taken Unknown] atorvastatin 40 mg tablet 80 mg PO QHS 08/07/21 [History Last Taken Unknown] clopidogrel 75 mg tablet (Plavix) 75 mg PO QHS 08/07/21 [History Last Taken Unknown] Milk of Magnesia 30 ml PO/SL DAILY PRN Constipation 11/07/21 [History Last Taken Unknown] bisacodyl 10 mg rectal suppository 10 mg [place] DAILY PRN Constipation 11/07/21 [History Last Taken Unknown] glycerin (adult) (Fleet Glycerin (Adult) rectal suppository) 1 supp [place] DAILY PRN Constipation 11/07/21 [History Last Taken Unknown] guaifenesin 50 mg/5 mL oral liquid 100 mg PO Q4H PRN Cough 11/07/21 [History Last Taken Unknown] senna-docusate sodium tablet 1 tab PO BID PRN Constipation 11/07/21 [History Last Taken Unknown] guaifenesin 600 mg tablet, extended release 12 hr (Mucinex) 600 mg PO Q12H PRN Cough 01/21/23 [History Last Taken Unknown] Allergy/AdvReac Type Severity Reaction Status Date / Time lemon Allergy Intermediate blisters Verified 01/21/23 16:28 on hands [place] Allergy Intermediate blisters Verified 01/21/23 16:28 on hands [place] Allergy Intermediate blisters Verified 01/21/23 16:28 on hands Family History Other Diabetes Surgical History Stented coronary artery (11/12/18) Social History Smoking Status: Former smoker ROS ROS Narrative See HPI Physical Exam Const alert, oriented x3 and no apparent distress General Appearance: cooperative, comfortable and well kempt HEENT normocephalic and head/scalp atraumatic HEENT Narrative: Disconjugate gaze Eyes EOMs intact bilaterally, conjunctivae normal and no scleral icterus Neck full ROM General: normal visual inspection Resp normal respiratory effort Effort and Inspection: able to speak in complete sentences Auscultation: Negative for rales, rhonchi or wheezes Cardio regular rate, regular rhythm, S1 normal heart sound, S2 normal heart sound, no murmurs, no rub and no gallops GI normal to inspection, nondistended, normoactive bowel sounds Extremity General Extremity: edema bilateral lower extremity Skin Wounds: wounds noted Wound Narrative: Lower extremities wrapped Neuro oriented x3, CN's II-XII intact bilaterally, moves all extremities and no focal motor deficits Psych mental status grossly normal, thought process normal, cooperative and affect normal Medical Records Data Attestation: I reviewed the patient's medical records Lab / Micro Data Attestation: I reviewed the patient's lab results. Result Diagrams: 01/22/23 05:30 01/22/23 05:30 Labs: Laboratory Results - last 24 hr 01/21/23 16:40: Urine Color Yellow, Urine Clarity Clear, Urine pH 8.0, Ur Specific [place] 1.010, Urine Protein 15 H, Urine Glucose (UA) Normal, Urine Ketones Negative, Urine Occult Blood 150 H, Urine Nitrite Negative, Urine Bilirubin Negative, Urine Urobilinogen 1 H, Ur Leukocyte Esterase 25 H, Urine RBC 10-25 SEEN, Urine WBC 0 SEEN, Ur Squamous Epith Cells 0 SEEN, Urine Bacteria 0 SEEN, Urine Mucus 0 SEEN 01/21/23 16:45: WBC 20.4 H, RBC 4.63, Hgb 12.3 L, Hct 39.0 L, MCV 84.2, MCH 26.6 L, MCHC 31.5 L, RDW Std Deviation 48.4 H, RDW Coeff of Donnie 15.9 H, Plt Count 190, MPV 10.2, Immature Gran % (Auto) 2.600 H, Neut % (Auto) 90.2 H, Lymph % (Auto) 2.7 L, [place] % (Auto) 4.3, Eos % (Auto) 0.0, Baso % (Auto) 0.2, Absolute Neuts (auto) 18.4 H, Absolute Lymphs (auto) 0.55 L, Nucleated RBC % 0, Differential Comment SCANNED 01/21/23 16:45: PT 15.6 H, INR 1.2, APTT 33.1 01/21/23 16:45: Sodium 139, Potassium 3.8, Chloride 105, Carbon Dioxide 28.0, Anion Gap 6, BUN 18, Creatinine 1.26, Estim Creat Clear Calc 51.32, Est GFR (MDRD) Af Amer 71, Est GFR (MDRD) Non-Af 58 L, BUN/Creatinine Ratio 14.3, Glucose 105, Calcium 9.1, Total Bilirubin 0.80, AST 29, ALT 11 L, Alkaline Phosphatase 87, Total Protein 8.2, Albumin 3.5, Globulin 4.7 H, Albumin/Globulin Ratio 0.7 L 01/21/23 16:45: Lactic Acid 2.5 H* 01/21/23 21:26: Lactic Acid 1.8 01/21/23 22:05: MRSA (PCR) POSITIVE H 01/22/23 05:30: WBC 18.7 H, RBC 4.40 L, Hgb 11.7 L, Hct 37.5 L, MCV 85.2, MCH 26.6 L, MCHC 31.2 L, RDW Std Deviation 50.1 H, RDW Coeff of [place] 16.1 H, Plt Count 175, MPV 10.0, Immature Gran % (Auto) 0.900, Neut % (Auto) 89.8 H, Lymph % (Auto) 4.6 L, [place] % (Auto) 4.5, Eos % (Auto) 0.0, Baso % (Auto) 0.2, Absolute Neuts (auto) 16.8 H, Absolute Lymphs (auto) 0.85, Nucleated RBC % 0 01/22/23 05:30: Sodium 140, Potassium 4.0, Chloride 108 H, Carbon Dioxide 26.0, Anion Gap 6, BUN 24 H, Creatinine 1.26, Estim Creat Clear Calc 54.37, Est GFR (MDRD) Af Amer 71, Est GFR (MDRD) Non-Af 58 L, BUN/Creatinine Ratio 19.0, Glucose 87, Calcium 8.4 L Micro: Microbiology 01/21/23 16:40 Nasal Secretion SARS-CoV-2 & FLU Antigen (Rapid) - Final Radiology Impression Chest X-Ray 01/21/23 16:45 IMPRESSION: No radiographic evidence of acute cardiopulmonary disease. Electronically Signed: Janet Luu MD at 17:29 EDT Reading Location ID and State: [id number] / Tel , Service support , Charges/Coding Visit Charges Inpatient E&M: 55444 Init Hosp L2
--- NOTE | 2023-01-22 07:28 | PN.HOSP_ITS ---
Reason for Visit Reason for Visit: Altered mental status Subjective Subjective Patient is an 82-year-old -Swiss male who resides at an assisted living facility and presented to the emergency department at [facility] on 01/21/2023 due to altered mental status. He was last known well the day prior to presentation. Nurse came to evaluate him and noticed he was confused and recommended transport to the emergency department for further evaluation. We were unable to obtain any history from the patient due to his confusion on arrival. Vital signs on presentation demonstrated a temperature of 101.3, heart rate 101, blood pressure 140/69, respiratory rate was 31 and oxygen saturation was 96% on room air. His blood pressure did drop with time in the emergency department with a easton of 95/46. Patient did meet criteria for sepsis with fever, tachypnea, leukocytosis, tachycardia, and suspected source. Cultures were obtained and antibiotics were initiated. MS has improved today some. White count is improving. Source seems to be skin on leg. Patient is alert and oriented x3 this morning. Response times are somewhat slow but he is completely appropriate and can tell me accurate history. He states his legs are chronically an issue for him. He has had outpatient follow-up in the past at the wound center and with vascular surgery. Objective Data Objective Data Vital Signs: Vital Signs Temp Pulse Resp BP Pulse Ox O2 Del Method 98.1 F 73 17 95/56 L 96 Room Air 01/22/23 06:00 01/22/23 07:00 01/22/23 07:00 01/22/23 07:00 01/22/23 07:00 01/22/23 07:00 Oxygen Delivery Method Room Air Weight: 107.7 kg Body Mass Index (BMI) 30.4 Intake & Output: Intake and Output for Last 24 Hours 01/20/23 01/21/23 01/22/23 23:59 23:59 23:59 Intake Total 2099 / 2099 Balance 2099 Lab / Micro Data Result Diagrams: 01/22/23 05:30 01/22/23 05:30 Labs: Laboratory Results - last 24 hr 01/21/23 16:40: Urine Color Yellow, Urine Clarity Clear, Urine pH 8.0, Ur Specific Murdock 1.010, Urine Protein 15 H, Urine Glucose (UA) Normal, Urine Ketones Negative, Urine Occult Blood 150 H, Urine Nitrite Negative, Urine Bilirubin Negative, Urine Urobilinogen 1 H, Ur Leukocyte Esterase 25 H, Urine RBC 10-25 SEEN, Urine WBC 0 SEEN, Ur Squamous Epith Cells 0 SEEN, Urine Bacteria 0 SEEN, Urine Mucus 0 SEEN 01/21/23 16:45: WBC 20.4 H, RBC 4.63, Hgb 12.3 L, Hct 39.0 L, MCV 84.2, MCH 26.6 L, MCHC 31.5 L, RDW Std Deviation 48.4 H, RDW Coeff of Donnie 15.9 H, Plt Count 190, MPV 10.2, Immature Gran % (Auto) 2.600 H, Neut % (Auto) 90.2 H, Lymph % (Auto) 2.7 L, Wayne % (Auto) 4.3, Eos % (Auto) 0.0, Baso % (Auto) 0.2, Absolute Neuts (auto) 18.4 H, Absolute Lymphs (auto) 0.55 L, Nucleated RBC % 0, Differential Comment SCANNED 01/21/23 16:45: PT 15.6 H, INR 1.2, APTT 33.1 01/21/23 16:45: Sodium 139, Potassium 3.8, Chloride 105, Carbon Dioxide 28.0, Anion Gap 6, BUN 18, Creatinine 1.26, Estim Creat Clear Calc 51.32, Est GFR (MDRD) Af Amer 71, Est GFR (MDRD) Non-Af 58 L, BUN/Creatinine Ratio 14.3, Glucose 105, Calcium 9.1, Total Bilirubin 0.80, AST 29, ALT 11 L, Alkaline Phosphatase 87, Total Protein 8.2, Albumin 3.5, Globulin 4.7 H, Albumin/Globulin Ratio 0.7 L 01/21/23 16:45: Lactic Acid 2.5 H* 01/21/23 21:26: Lactic Acid 1.8 01/21/23 22:05: MRSA (PCR) POSITIVE H 01/22/23 05:30: WBC 18.7 H, RBC 4.40 L, Hgb 11.7 L, Hct 37.5 L, MCV 85.2, MCH 26.6 L, MCHC 31.2 L, RDW Std Deviation 50.1 H, RDW Coeff of Donnie 16.1 H, Plt Count 175, MPV 10.0, Immature Gran % (Auto) 0.900, Neut % (Auto) 89.8 H, Lymph % (Auto) 4.6 L, Wayne % (Auto) 4.5, Eos % (Auto) 0.0, Baso % (Auto) 0.2, Absolute Neuts (auto) 16.8 H, Absolute Lymphs (auto) 0.85, Nucleated RBC % 0 01/22/23 05:30: Sodium 140, Potassium 4.0, Chloride 108 H, Carbon Dioxide 26.0, Anion Gap 6, BUN 24 H, Creatinine 1.26, Estim Creat Clear Calc 54.37, Est GFR (MDRD) Af Amer 71, Est GFR (MDRD) Non-Af 58 L, BUN/Creatinine Ratio 19.0, Glucose 87, Calcium 8.4 L Micro: Microbiology 01/21/23 16:40 Nasal Secretion SARS-CoV-2 & FLU Antigen (Rapid) - Final Radiography Diagnostic Testing: Radiology Impression Chest X-Ray 01/21/23 16:45 IMPRESSION: No radiographic evidence of acute cardiopulmonary disease. Electronically Signed: Janet Luu MD at 17:29 EDT Reading Location ID and State: [id number] / Tel , Service support , Physical Exam Const alert, oriented x3, no apparent distress and well nourished; Negative for healthy appearing Constitutional Narrative: Elderly, -Swiss male, sitting up in bed, eating breakfast and watching television, appears comfortable and nontoxic, does appear chronically ill HEENT head/scalp atraumatic and moist oral mucous membranes HEENT Narrative: Edentulous, Mallampati 1, no thrush Head and Scalp: normocephalic Eyes PERRL, EOMs intact bilaterally and conjunctivae normal Eyes Narrative: No scleral icterus Neck no lymphadenopathy and supple Neck Narrative: Trachea midline, no thyroid enlargement Resp normal respiratory effort, no retractions, no use of accessory muscles and clear to auscultation bilaterally Auscultation: Negative for rales, rhonchi or wheezes Cardio regular rate, regular rhythm, S1 normal heart sound, S2 normal heart sound, no murmurs, no rub, no gallops and no clicks GI normal to inspection, nondistended, normoactive bowel sounds and soft to p alpation Extremity Extremity Narrative: Severe bilateral lower extremity edema with chronic skin changes noted related to chronic lymphedema, scattered ulcerations and wounds, increased tissue temperature predominantly on the right leg, no clubbing or cyanosis Neuro oriented x3, moves all extremities and no focal motor deficits Neuro Narrative: Generalized weakness noted Sensorium / Orientation: oriented to person, oriented to place and oriented to time Speech: speech normal Psych affect normal Psych Narrative: Extremely pleasant, appropriate Assessment & Plan Assessment/Plan (1) Cellulitis: (2) Sepsis: QUALIFIERS: Sepsis acute organ dysfunction status: with acute organ dysfunction Sepsis type: sepsis due to unspecified organism Severe sepsis acute organ dysfunction type: encephalopathy (3) Leukocytosis: (4) Lactic acidosis: PLAN: Plan Sepsis secondary to lower extremity cellulitis -Meets criteria with elevated temperature, tachypnea, tachycardia, leukocytosis, relative hypotension, lactic acidosis -Has received fluid boluses at 30 cc/kg -Blood pressures are still lower than normal for him but they are in the normal range and no need of pressors at this time -Lactate clear and no endorgan damage presently -UA is not impressive/chest x-ray is unremarkable on admission -Appears to be related to right lower extremity cellulitis -Has had previous wound infection with polymicrobial infection including Pseudomonas/Staph aureus/Proteus mirabilis -Blood and urine cultures are pending -Continue Zosyn and add vancomycin -ED consider imaging of the lower extremity depending on clinical progress -Has seen vascular for this previously on 09/29/2022 -Wound care consultation -We will transfer out of ICU Lactic acidosis -Resolved with fluid resuscitation Leukocytosis -Secondary to above -Trending down Small vessel PVD/history of venous insufficiency -Continue aspirin and Plavix -Continue outpatient vascular follow-up as previously instructed -ABIs were normal but PVRs were diminished CAD/HTN/HPL -Previous stent in 2019 -Continue aspirin and Plavix -Hold home Lasix -continue home atorvastatin -Last echo was in 2019 showed an EF of 65 to 70%/normal diastolic function/right ventricular systolic pressure 32 mmHg and mild aortic valve insufficiency History of BPH -Patient is not on any medications for this at this time Bilateral lower extremity lymphedema -Chronic -Increases risk for skin infections -Hold Lasix at this time History of tobacco abuse -Patient's not any scheduled inhalers -As needed albuterol -Continue home guaifenesin -I-S Constipation -As needed meds available -Appears to be chronic issue DVT prophylaxis -Continue Lovenox CODE STATUS Full code Charges/Coding Visit Charges Inpatient E&M: 91076 Subs Hosp L2
[2023-01-22] MEDS: Potassium Chloride Oral Tablet 20 MEQ 40 MEQ PO (10:16)
[2023-01-22] MEDS: Aspirin E.C. 81 MG Tablet PO (10:16)
[2023-01-22] MEDS: Enoxaparin 40 MG/0.4 ML Syringe SC (10:17)
[2023-01-22] MEDS: Ensure Plus High Protein 120 ML LIQUID PO (12:35)
[2023-01-22] MEDS: Potassium Chloride Oral Tablet 20 MEQ PO (16:28)
[2023-01-22] MEDS: Vancomycin IV 1,000 MG/200 ML BAG 200 MG IV (18:08)
[2023-01-22] MEDS: Atorvastatin Calcium 80 MG Tablet PO (20:15)
[2023-01-22] MEDS: Clopidogrel Bisulfate 75 MG Tablet PO (20:16)
[2023-01-23] VITALS (8 sets, daily range): BP systolic 107–134; BP diastolic 55–73; PULSE 64–73; RESP 16–18; TEMP 36.7–37.2; O2SAT 96–99; BMI 31.0
[2023-01-23] MEDS: Acetaminophen 325 MG Tablet 650 MG PO (03:08)
[2023-01-23 05:43] LABS: Absolute Lymphocyte Count 1.22 X10^3/uL (0.83-4.51); Absolute Neutrophil Count 8.7 X10^3/uL (2.0-7.7); Basophil# 0.03 X10^3/uL; Basophil% 0.3 % (0-1); Eosinophil# 0.15 X10^3/uL; Eosinophils% 1.4 % (0-5); Hematocrit 31.5 % (40-54); Lymphocyte # 1.22 X10^3/ul (0.83-4.51); Lymphocyte % 11.7 % (19-41); Mean Corp Hgb Conc 31.7 g/dL (32-36); Mean Corpuscular Hgb 26.4 pg (27.0-32.0); Mean Corpuscular Volume 83.1 fL (80-94); Mean Platelet Vol. 9.8 fl (6.2-12.0); Monocyte# 0.31 X10^3/uL; NRBC Flagged by Analyzer 0 % (0-5); Neutrophil # 8.69 X10^3/uL (2.7-7.7); Neutrophil % 83.1 % (47-70); Platelet Count 155 K/mm3 (150-450); RBC Distribution Width CV 16.3 % (11.6-14.6); RBC Distribution Width SD 49.9 fl (35.1-43.9); Red Blood Count 3.79 M/mm3 (4.6-6.2); White Blood Count 10.5 K/mm3 (4.4-11.0)
[2023-01-23] MEDS: Vancomycin IV 1,000 MG/200 ML BAG 200 MG IV ×2 (06:05→17:58)
[2023-01-23] MEDS: Carbidopa/Levodopa 25/100 Tablet PO ×3 (06:11→15:12)
[2023-01-23 06:36] LABS: Albumin, Serum 2.4 g/dL (3.2-5.0); BUN 21 mg/dL (7-18); BUN/Creat Ratio 19.1 RATIO (10-20); EST Glomerular Filtration Rate 68 mL/min (>60); Est Glom Filt Rate - Afr Amer 83 mL/min (>60); Estimated Creatinine Clearance 61.23 ml/min; Glucose 91 mg/dL (74-106); Protein, Total 6.1 g/dL (6.4-8.2)
[2023-01-23 06:37] LABS: ALB/GLOB Ratio 0.6 RATIO (0.9-2.4); AST(SGOT) 46 U/L (15-37); Alanine Aminotransfer ALT/SGPT 16 U/L (16-61); Alkaline Phosphatase 62 U/L (45-117); Anion Gap 5 (5-15); Calcium,Total 7.9 mg/dL (8.5-10.1); Chloride 109 mmol/L (98-107); Globulin 3.7 g/dL (2.2-4.2); Phosphorus 1.7 mg/dL (2.5-4.9); Potassium 3.8 mmol/L (3.5-5.1); Sodium Level 139 mmol/L (136-145); Thyroid Stim Hormone (TSH) 2.34 uIU/mL (0.358-3.74)
[2023-01-23] MEDS: Aspirin E.C. 81 MG Tablet PO (09:49)
[2023-01-23] MEDS: Enoxaparin 40 MG/0.4 ML Syringe SC (09:50)
--- NOTE | 2023-01-23 10:14 | PN.HOSP_ITS ---
Reason for Visit Reason for Visit: Acute mental status change Subjective Subjective Patient states he is feeling better today. Asked me to help him open his cereal and milk for breakfast. Also asked for some sugar. We got things set up for him. I did discuss with him the possibility that he may be ready to return to his previous living arrangement tomorrow depending on how he does with therapy and he seem pleased with that. His white count has resolved and his mentation is back to baseline. Did report some difficulty sleeping last night. Objective Data Objective Data Vital Signs: Vital Signs Temp Pulse Resp BP Pulse Ox O2 Del Method 98.0 F 72 18 134/73 H 99 Room Air 01/23/23 09:05 01/23/23 09:05 01/23/23 09:05 01/23/23 09:05 01/23/23 09:05 01/23/23 09:05 Oxygen Delivery Method Room Air Weight: 109.6 kg Body Mass Index (BMI) 31.0 Intake & Output: Intake and Output for Last 24 Hours 01/21/23 01/22/23 01/23/23 23:59 23:59 23:59 Intake Total 2099 1815 / 1815 250 / 250 Balance 2099 1815 / 1815 250 / 250 Lab / Micro Data Result Diagrams: 01/23/23 05:23 01/23/23 05:23 Labs: Laboratory Results - last 24 hr 01/23/23 05:23: WBC 10.5, RBC 3.79 L, Hgb 10.0 L, Hct 31.5 L, MCV 83.1, MCH 26.4 L, MCHC 31.7 L, RDW Std Deviation 49.9 H, RDW Coeff of Donnie 16.3 H, Plt Count 155, MPV 9.8, Immature Gran % (Auto) 0.500, Neut % (Auto) 83.1 H, Lymph % (Auto) 11.7 L, Izard % (Auto) 3.0, Eos % (Auto) 1.4, Baso % (Auto) 0.3, Absolute Neuts (auto) 8.7 H, Absolute Lymphs (auto) 1.22, Nucleated RBC % 0 01/23/23 05:23: Sodium 139, Potassium 3.8, Chloride 109 H, Carbon Dioxide 25.0, Anion Gap 5, BUN 21 H, Creatinine 1.10, Estim Creat Clear Calc 61.23, Est GFR (MDRD) Af Amer 83, Est GFR (MDRD) Non-Af 68, BUN/Creatinine Ratio 19.1, Glucose 91, Calcium 7.9 L, Phosphorus 1.7 L, Magnesium 2.0, Total Bilirubin 0.60, AST 46 H, ALT 16, Alkaline Phosphatase 62, Total Protein 6.1 L, Albumin 2.4 L, Globulin 3.7, Albumin/Globulin Ratio 0.6 L, TSH 2.34 Micro: Microbiology 01/21/23 16:40 Urine, Random Urine Culture - Preliminary Culture exhibits no growth. 01/21/23 16:40 Nasal Secretion SARS-CoV-2 & FLU Antigen (Rapid) - Final Physical Exam Narrative Physical exam: General: Well-nourished, well-developed. Head: Normocephalic, atraumatic, no tenderness Eyes: EOMI. ENT, no trauma, moist mucous membranes, no rhinorrhea Neck: Nontender, No thyromegaly. CVS: Regular rate and rhythm. S1-S2 present. No murmur, gallop or rub. Respiratory : clear to auscultation bilaterally, chest wall nontender Abdomen: Soft, nontender, nondistended, normal bowel sounds, no masses : Deferred Back: Nontender, no CVA tenderness. Extremities: Swelling of bilateral lower legs with excoriations and abrasions. Skin: Normal color, no trauma, abrasions Neuro: Lethargic. Patient knows the month and the year. He stated that it was January 23 instead of January 21. Psychiatry: Normal mood. Normal affect. Not depressed. Not anxious. Const alert, oriented x3, no apparent distress and well nourished; Negative for h ealthy appearing Constitutional Narrative: Elderly, -[place] male, sitting up in bed, eating breakfast and watching television, appears comfortable and nontoxic, does appear chronically ill HEENT head/scalp atraumatic and moist oral mucous membranes Eyes PERRL, EOMs intact bilaterally and conjunctivae normal Eyes Narrative: No scleral icterus Neck no lymphadenopathy and supple Neck Narrative: Trachea midline, no thyroid enlargement Resp normal respiratory effort, no retractions, no use of accessory muscles and clear to auscultation bilaterally Auscultation: Negative for rales, rhonchi or wheezes Cardio regular rate, regular rhythm, S1 normal heart sound, S2 normal heart sound, no murmurs, no rub, no gallops and no clicks GI normal to inspection, nondistended, normoactive bowel sounds and soft to palpation Extremity Extremity Narrative: Severe bilateral lower extremity edema with chronic skin changes noted related to chronic lymphedema, scattered ulcerations and wounds, increased tissue temperature predominantly on the right leg, no clubbing or cyanosis Neuro oriented x3, moves all extremities and no focal motor deficits Neuro Narrative: Generalized weakness noted Sensorium / Orientation: oriented to person, oriented to place and oriented to time Speech: speech normal Psych affect normal Psych Narrative: Extremely pleasant, appropriate Assessment & Plan Assessment/Plan (1) Cellulitis: (2) Sepsis: QUALIFIERS: Sepsis type: sepsis due to unspecified organism Sepsis acute organ dysfunction status: with acute organ dysfunction Severe sepsis acute organ dysfunction type: encephalopathy (3) Leukocytosis: (4) Lactic acidosis: PLAN: Plan Sepsis secondary to lower extremity cellulitis -Meets criteria with elevated temperature, tachypnea, tachycardia, leukocytosis, relative hypotension, lactic acidosis -Has received fluid boluses at 30 cc/kg -Blood pressures are still lower than normal for him but they are in the normal range and no need of pressors at this time -Lactate clear and no endorgan damage presently -UA is not impressive/chest x-ray is unremarkable on admission -Appears to be related to right lower extremity cellulitis -Has had previous wound infection with polymicrobial infection including Pseudomonas/Staph aureus/Proteus mirabilis -Blood and urine cultures are pending -Continue Zosyn and add vancomycin -ED consider imaging of the lower extremity depending on clinical progress -Has seen vascular for this previously on 09/29/2022 -Wound care consultation -We will transfer out of ICU Lactic acidosis -Resolved with fluid resuscitation Leukocytosis -Secondary to above -Trending down Small vessel PVD/history of venous insufficiency -Continue aspirin and Plavix -Continue outpatient vascular follow-up as previously instructed -ABIs were normal but PVRs were diminished CAD/HTN/HPL -Previous stent in 2019 -Continue aspirin and Plavix -Hold home Lasix -continue home atorvastatin -Last echo was in 2019 showed an EF of 65 to 70%/normal diastolic function/right ventricular systolic pressure 32 mmHg and mild aortic valve insufficiency History of BPH -Patient is not on any medications for this at this time Bilateral lower extremity lymphedema -Chronic -Increases risk for skin infections -Hold Lasix at this time History of tobacco abuse -Patient's not any scheduled inhalers -As needed albuterol -Continue home guaifenesin -I-S Constipation -As needed meds available -Appears to be chronic issue DVT prophylaxis -Continue Lovenox CODE STATUS Full code
--- NOTE | 2023-01-23 10:33 | PCM.PN.HOSP ---
Reason for Visit Reason for Visit: Mental status change Subjective Subjective Patient states he is feeling better today. Asked me to help him open his cereal and milk for breakfast. Also asked for some sugar. We got things set up for him. I did discuss with him the possibility that he may be ready to return to his previous living arrangement tomorrow depending on how he does with therapy and he seem pleased with that. His white count has resolved and his mentation is back to baseline. Did report some difficulty sleeping last night. Objective Data Objective Data Vital Signs: Vital Signs Temp Pulse Resp BP Pulse Ox O2 Del Method 98.0 F 72 18 134/73 H 99 Room Air 01/23/23 09:05 01/23/23 09:05 01/23/23 09:05 01/23/23 09:05 01/23/23 09:05 01/23/23 09:05 Oxygen Delivery Method Room Air Weight: 109.6 kg Body Mass Index (BMI) 31.0 Intake & Output: Intake and Output for Last 24 Hours 01/21/23 01/22/23 01/23/23 23:59 23:59 23:59 Intake Total 2099 1815 / 1815 250 / 250 Balance 2099 1815 / 1815 250 / 250 Lab / Micro Data Result Diagrams: 01/23/23 05:23 01/23/23 05:23 Labs: Laboratory Results - last 24 hr 01/23/23 05:23: WBC 10.5, RBC 3.79 L, Hgb 10.0 L, Hct 31.5 L, MCV 83.1, MCH 26.4 L, MCHC 31.7 L, RDW Std Deviation 49.9 H, RDW Coeff of Donnie 16.3 H, Plt Count 155, MPV 9.8, Immature Gran % (Auto) 0.500, Neut % (Auto) 83.1 H, Lymph % (Auto) 11.7 L, Toole % (Auto) 3.0, Eos % (Auto) 1.4, Baso % (Auto) 0.3, Absolute Neuts (auto) 8.7 H, Absolute Lymphs (auto) 1.22, Nucleated RBC % 0 01/23/23 05:23: Sodium 139, Potassium 3.8, Chloride 109 H, Carbon Dioxide 25.0, Anion Gap 5, BUN 21 H, Creatinine 1.10, Estim Creat Clear Calc 61.23, Est GFR (MDRD) Af Amer 83, Est GFR (MDRD) Non-Af 68, BUN/Creatinine Ratio 19.1, Glucose 91, Calcium 7.9 L, Phosphorus 1.7 L, Magnesium 2.0, Total Bilirubin 0.60, AST 46 H, ALT 16, Alkaline Phosphatase 62, Total Protein 6.1 L, Albumin 2.4 L, Globulin 3.7, Albumin/Globulin Ratio 0.6 L, TSH 2.34 Micro: Microbiology 01/21/23 16:40 Urine, Random Urine Culture - Preliminary Culture exhibits no growth. 01/21/23 16:40 Nasal Secretion SARS-CoV-2 & FLU Antigen (Rapid) - Final Physical Exam Const alert, oriented x3, no apparent distress and well nourished Constitutional Narrative: Overweight, elderly, skin [place], male, sitting up in bed eating breakfast and watching television, appears comfortable and nontoxic, chronically ill-appearing however HEENT head/scalp atraumatic and moist oral mucous membranes HEENT Narrative: Dentures in place, Mallampati 2, no thrush Head and Scalp: normocephalic Resp normal respiratory effort, no retractions, no use of accessory muscles and clear to auscultation bilaterally Auscultation: Negative for crackles, rhonchi or wheezes Cardio regular rate, regular rhythm, S1 normal heart sound, S2 normal heart sound, no murmurs, no rub, no gallops and no clicks GI normal to inspection, nondistended, normoactive bowel sounds, soft to palpation and non-tender Extremity Extremity Narrative: Bilateral lower extremities with marked chronic appearing edema, skin ulcerations noted with no acute purulent drainage, wraps in place with walking shoes, no cyanosis or clubbing Neuro oriented x3, moves all extremities and no focal motor deficits Neuro Narrative: Significant generalized weakness noted, patient with mild bradycardia kinesis noted, mild masked facies, no significant resting tremor noted at this time, speech is intelligible but slow Psych affect normal Psych Narrative: Very pleasant, appropriate Assessment & Plan Assessment/Plan (1) Cellulitis: (2) Sepsis: QUALIFIERS: Sepsis type: sepsis due to unspecified organism Sepsis acute organ dysfunction status: with acute organ dysfunction Severe sepsis acute organ dysfunction type: encephalopathy (3) Leukocytosis: (4) Lactic acidosis: PLAN: Plan Sepsis secondary to lower extremity cellulitis -Meets criteria with elevated temperature, tachypnea, tachycardia, leukocytosis, relative hypotension, lactic acidosis -Has received fluid boluses at 30 cc/kg -Blood pressures are still lower than normal for him but they are in the normal range and no need of pressors at this time -Lactate clear and no endorgan damage presently -Sepsis has resolved -White count has normalized however patient still has a neutrophilia with a left shift -Urine culture is no growth to date -Blood cultures are both pending -Appears to be related to right lower extremity cellulitis -Has had previous wound infection with polymicrobial infection including Pseudomonas/Staph aureus/Proteus mirabilis -Continue vancomycin and Zosyn for now -ED consider imaging of the lower extremity depending on clinical progress -Has seen vascular for this previously on 09/29/2022 -Wound care consultation Leukocytosis -Resolved Chronic stable anemia -White count slightly down compared to previous however was fluid bolused -If remains stable from a blood pressure perspective today we will reinitiate Lasix tomorrow as I suspect this drop is likely dilutional with aggressive fluid resuscitation for sepsis Small vessel PVD/history of venous insufficiency -Continue aspirin and Plavix -Continue outpatient vascular follow-up as previously instructed -ABIs were normal but PVRs were diminished CAD/HTN/HPL -Previous stent in 2019 -Continue aspirin and Plavix -Continue to hold home Lasix--> if blood pressure remains stable today may be able to reinitiate Lasix tomorrow -continue home atorvastatin -Last echo was in 2019 showed an EF of 65 to 70%/normal diastolic function/right ventricular systolic pressure 32 mmHg and mild aortic valve insufficiency History of BPH -Patient is not on any medications for this at this time Bilateral lower extremity lymphedema -Chronic -Increases risk for skin infections -Hold Lasix at this time--> consider reinitiation tomorrow depending on blood pressures Tremors -Continue carbidopa levodopa History of tobacco abuse -Patient's not any scheduled inhalers -As needed albuterol -Continue home guaifenesin -I-S Constipation -As needed meds available -Appears to be chronic issue DVT prophylaxis -Continue Lovenox CODE STATUS Full code Charges/Coding Visit Charges Inpatient E&M: 89757 Subs Hosp L2
[2023-01-23] MEDS: Potassium Chloride Oral Tablet 20 MEQ PO (17:20)
[2023-01-23 18:03] LABS: Vancomycin, Trough Level 12.7 ug/mL (5.0-15.0)
--- NOTE | 2023-01-23 18:18 | PCM.RX.CS ---
Consult Pharmacy has been consulted to manage selected antiobiotic: Vancomycin Type of Consult: Follow-up Suspected Infection: Sepsis Labs: Sodium 139 mmol/L (136-145) 01/23/23 05: Potassium 3.8 mmol/L (3.5-5.1) 01/23/23 05: Chloride 109 mmol/L (98-107) H 01/23/23 05: Carbon Dioxide 25.0 mmol/L (21.0-32.0) 01/23/23 05: Anion Gap 5 (5-15) 01/23/23 05:23 BUN 21 mg/dL (7-18) H 01/23/23 05: Creatinine 1.10 mg/dL (0.70-1.30) 01/23/23 05: Est GFR (MDRD) Af Amer 83 mL/min (>60) 01/23/23 05: Est GFR (MDRD) Non-Af 68 mL/min (>60) 01/23/23 05: BUN/Creatinine Ratio 19.1 RATIO (10-20) 01/23/23 05: Glucose 91 mg/dL (74-106) 01/23/23 05:23 Vancomycin Trough 12.7 ug/mL (5.0-15.0) 01/23/23 17:30 Microbiology: Microbiology 01/21/23 16:40 Urine, Random Urine Culture - Preliminary Culture exhibits no growth. 01/21/23 16:40 Nasal Secretion SARS-CoV-2 & FLU Antigen (Rapid) - Final Goal Trough: 15-20 mcg/mL Pharmacy Plan for Drug Dosing: VANCOMYCIN LEVEL RECEIVED Current Vancomycin Dose: 1000mg q12h () Number of Doses Received: x1 1500mg loading dose, x2 1000mg doses Vancomycin Level: 12.7 Hours Since Last Dose: 11.5 hours since last dose Renal Function: SrCr 1.10 Renal Function Trend: SrCr improving (was 1.26 on 01/22/23) Lab/Micro: Vancomycin Plan/Comments: resulted trough of 12.7 is slightly below the ordered goal trough range of 15-20. recommend continuing current dose of 1000mg q12h as pt not yet at steady state. checking trough earlier than normal to verify dosing Pending Level: 01/24/23 at 1730 Pharmacy Service will continue to monitor and adjust dosing as required. Follow-Up Labs: Trough Vancomycin - 5/30/23 at 1730
[2023-01-23] MEDS: Clopidogrel Bisulfate 75 MG Tablet PO (21:09)
[2023-01-23] MEDS: Atorvastatin Calcium 80 MG Tablet PO (21:09)
[2023-01-24] VITALS (7 sets, daily range): BP systolic 100–141; BP diastolic 58–67; PULSE 61–69; RESP 14–20; TEMP 36.4–37.1; O2SAT 95–98; BMI 31.4
[2023-01-24 04:49] LABS: Absolute Lymphocyte Count 1.23 X10^3/uL (0.83-4.51); Absolute Neutrophil Count 5.1 X10^3/uL (2.0-7.7); Basophil# 0.02 X10^3/uL; Basophil% 0.3 % (0-1); Eosinophils% 4.1 % (0-5); Hematocrit 31.1 % (40-54); Hemoglobin 10.2 g/dL (13.0-16.5); Lymphocyte # 1.23 X10^3/ul (0.83-4.51); Mean Corp Hgb Conc 32.8 g/dL (32-36); Mean Corpuscular Hgb 27.4 pg (27.0-32.0); Mean Corpuscular Volume 83.6 fL (80-94); Mean Platelet Vol. 9.9 fl (6.2-12.0); Monocyte# 0.59 X10^3/uL; Monocyte% 8.1 % (0-10); NRBC Flagged by Analyzer 0 % (0-5); Neutrophil # 5.07 X10^3/uL (2.7-7.7); Neutrophil % 69.9 % (47-70); Platelet Count 171 K/mm3 (150-450); RBC Distribution Width SD 49.6 fl (35.1-43.9); Red Blood Count 3.72 M/mm3 (4.6-6.2); White Blood Count 7.3 K/mm3 (4.4-11.0)
[2023-01-24] MEDS: Vancomycin IV 1,000 MG/200 ML BAG 200 MG IV ×2 (05:30→17:34)
[2023-01-24 05:34] LABS: Anion Gap 6 (5-15); BUN 14 mg/dL (7-18); Calcium,Total 8.2 mg/dL (8.5-10.1); Chloride 108 mmol/L (98-107); EST Glomerular Filtration Rate 76 mL/min (>60); Est Glom Filt Rate - Afr Amer 92 mL/min (>60); Estimated Creatinine Clearance 67.36 ml/min; Glucose 87 mg/dL (74-106); Phosphorus 2.5 mg/dL (2.5-4.9); Potassium 3.9 mmol/L (3.5-5.1); Sodium Level 139 mmol/L (136-145)
[2023-01-24] MEDS: 0.9% Saline Lock 10 ML Syringe IV (05:44)
[2023-01-24] MEDS: Carbidopa/Levodopa 25/100 Tablet PO ×3 (06:46→16:08)
--- NOTE | 2023-01-24 09:12 | CASEMGMT ---
SW reviewed patient's chart and noted patient is from [facility]. SW also noted therapy is recommending patient go to a care home facility for rehab. SW met with patient. Introduced self and role at [facility]. SW explained to patient that therapy is recommending patient go to a care home facility short term for rehab. Patient stated he does not want to go to [facility]. SW let patient know that will bring him a list of facilities that take his insurance. Maral LARSON
--- NOTE | 2023-01-24 09:30 | CASEMGMT ---
Discharge Planning SNF list created per patient request and given to SW. Elizabeth Sampson
--- NOTE | 2023-01-24 09:34 | CASEMGMT ---
SW provided patient with a list of?alf facility providers including quality and resource use data and consistent with patient?s preferred geographic region, medical needs, and insurance network were provided from the [facility] Guide. SW asked patient to pick 2-3 places he would be okay with and SW will make referrals. SW told patient SW will check back in a bit. Maral LARSON
[2023-01-24] MEDS: Aspirin E.C. 81 MG Tablet PO (10:45)
[2023-01-24] MEDS: Enoxaparin 40 MG/0.4 ML Syringe SC (10:45)
--- NOTE | 2023-01-24 10:47 | CASEMGMT ---
Discharge Planning SNF choices are as follows [facility], [facility], [facility] Elizabeth Sampson
[2023-01-24] MEDS: Ensure Plus High Protein 120 ML LIQUID PO (10:52)
--- NOTE | 2023-01-24 12:25 | PCM.PN.HOSP ---
Reason for Visit Reason for Visit: Acute mental status change Subjective Subjective Patient states he had a good night. Sitting up eating breakfast. Denies any current issues. Does note that Case management/social work came in and talk to him this morning and he will need placement at discharge for ongoing rehab. He is thinking of where he would like to go. Objective Data Objective Data Vital Signs: Vital Signs Temp Pulse Resp BP Pulse Ox O2 Del Method 97.5 F L 64 16 115/65 97 Room Air 01/24/23 10:42 01/24/23 10:42 01/24/23 10:42 01/24/23 10:42 01/24/23 10:42 01/24/23 10:42 Oxygen Delivery Method Room Air Weight: 111.1 kg Body Mass Index (BMI) 31.4 Intake & Output: Intake and Output for Last 24 Hours 01/22/23 01/23/23 01/24/23 23:59 23:59 23:59 Intake Total 1815 / 1815 1530 / 1530 250 / 250 Output Total 950 / 950 Balance 1815 / 1815 1530 / 1330 -700 / -700 Lab / Micro Data Result Diagrams: 01/24/23 04:20 01/24/23 04:20 Labs: Laboratory Results - last 24 hr 01/23/23 17:30: Vancomycin Trough 12.7 01/24/23 04:20: WBC 7.3, RBC 3.72 L, Hgb 10.2 L, Hct 31.1 L, MCV 83.6, MCH 27.4, MCHC 32.8, RDW Std Deviation 49.6 H, RDW Coeff of Donnie 16.0 H, Plt Count 171, MPV 9.9, Immature Gran % (Auto) 0.600, Neut % (Auto) 69.9, Lymph % (Auto) 17.0 L, [place] % (Auto) 8.1, Eos % (Auto) 4.1, Baso % (Auto) 0.3, Absolute Neuts (auto) 5.1, Absolute Lymphs (auto) 1.23, Nucleated RBC % 0 01/24/23 04:20: Sodium 139, Potassium 3.9, Chloride 108 H, Carbon Dioxide 25.0, Anion Gap 6, BUN 14, Creatinine 1.00, Estim Creat Clear Calc 67.36, Est GFR (MDRD) Af Amer 92, Est GFR (MDRD) Non-Af 76, BUN/Creatinine Ratio 14.0, Glucose 87, Calcium 8.2 L, Phosphorus 2.5 Micro: Microbiology 01/21/23 16:40 Urine, Random Urine Culture - Final Culture exhibits no growth. 01/21/23 17:40 Blood Culture (Wb) - Anticubital Right Blood Culture - Preliminary No growth in 48 hours. 01/21/23 16:45 Blood Culture (Wb) - Anticubital Right Blood Culture - Preliminary No growth in 48 hours. 01/21/23 16:40 Nasal Secretion SARS-CoV-2 & FLU Antigen (Rapid) - Final Physical Exam Const alert, oriented x3, no apparent distress and well nourished Constitutional Narrative: Overweight, elderly, skin [place]ese, male, sitting up in bed eating breakfast and watching television, appears comfortable and nontoxic, chronically ill-appearing however, cooperative HEENT head/scalp atraumatic and moist oral mucous membranes HEENT Narrative: Dentition is poor as dentures are in place, Mallampati is 2, no thrush Head and Scalp: normocephalic Resp normal respiratory effort, no retractions, no use of accessory muscles and clear to auscultation bilaterally Auscultation: Negative for crackles, rhonchi or wheezes Cardio regular rate, regular rhythm, S1 normal heart sound, S2 normal heart sound, no murmurs, no rub, no gallops and no clicks GI normal to inspection, nondistended, normoactive bowel sounds, soft to palpation and non-tender Extremity Extremity Narrative: Bilateral lower extremities with marked chronic appearing edema, laterally and it is not place Neuro oriented x3, moves all extremities and no focal motor deficits Neuro Narrative: Significant generalized weakness noted, patient with mild bradykinesis noted, mild masked facies, no significant resting tremor noted at this time, speech is slightly intelligible but slow Speech: Negative for speech normal Psych affect normal Psych Narrative: Very pleasant, appropriate Assessment & Plan Assessment/Plan (1) Cellulitis: (2) Sepsis: QUALIFIERS: Sepsis type: sepsis due to unspecified organism Sepsis acute organ dysfunction status: with acute organ dysfunction Severe sepsis acute organ dysfunction type: encephalopathy (3) Leukocytosis: (4) Lactic acidosis: PLAN: Plan Sepsis secondary to lower extremity cellulitis -Meets criteria with elevated temperature, tachypnea, tachycardia, leukocytosis, relative hypotension, lactic acidosis -Has received fluid boluses at 30 cc/kg -Blood pressures are still lower than normal for him but they are in the normal range and no need of pressors at this time -Lactate clear and no endorgan damage presently -Sepsis has resolved -White count has normalized however patient still has a neutrophilia with a left shift -Urine culture is no growth to date -Blood cultures are with no growth to date -Appears to be related to right lower extremity cellulitis -Has had previous wound infection with polymicrobial infection including Pseudomonas/Staph aureus/Proteus mirabilis -We will continue Vanco and Zosyn for now as I do suspect that it is probably a polymicrobial infection from his lower extremities -Need broad oral coverage at discharge to cover gram-positive and gram-negative infections including MRSA -ED consider imaging of the lower extremity depending on clinical progress -Has seen vascular for this previously on 09/29/2022 -Wound care consulted Leukocytosis -Resolved -Left shift has now resolved as well Chronic stable anemia -Hemoglobin is stable -Restart home Lasix Small vessel PVD/history of venous insufficiency -Continue aspirin and Plavix -Continue outpatient vascular follow-up as previously instructed -ABIs were normal but PVRs were diminished -Restart home Lasix CAD/HTN/HPL -Previous stent in 2019 -Continue aspirin and Plavix -Restart home Lasix -continue home atorvastatin -Last echo was in 2019 showed an EF of 65 to 70%/normal diastolic function/right ventricular systolic pressure 32 mmHg and mild aortic valve insufficiency History of BPH -Patient is not on any medications for this at this time Bilateral lower extremity lymphedema -Chronic -Increases risk for skin infections -Hold Lasix at this time--> consider reinitiation tomorrow depending on blood pressures Tremors -Continue carbidopa levodopa History of tobacco abuse -Patient's not any scheduled inhalers -As needed albuterol -Continue home guaifenesin -I-S Constipation -As needed meds available -Appears to be chronic issue DVT prophylaxis -Continue Lovenox CODE STATUS Full code Disposition: -Patient is medically stable for discharge. Awaiting placement which has been delayed for holiday weekend. Patient will need pre-CERT prior to discharge Charges/Coding Visit Charges Inpatient E&M: 91844 Subs Hosp L2
--- NOTE | 2023-01-24 14:27 | CASEMGMT ---
Discharge Planning [facility] declined d/t insurance. Referral sent to patients second choice, [facility], via [facility]. Elizabeth Sampson
[2023-01-24] MEDS: Potassium Chloride Oral Tablet 20 MEQ PO (16:09)
--- NOTE | 2023-01-24 18:30 | PCM.RX.CS ---
Consult Type of Consult: Follow-up Suspected Infection: Sepsis Labs: Sodium 139 mmol/L (136-145) 01/24/23 04:20 Potassium 3.9 mmol/L (3.5-5.1) 01/24/23 04:20 Chloride 108 mmol/L (98-107) H 01/24/23 04:20 Carbon Dioxide 25.0 mmol/L (21.0-32.0) 01/24/23 04:20 Anion Gap 6 (5-15) 01/24/23 04:20 BUN 14 mg/dL (7-18) 01/24/23 04:20 Creatinine 1.00 mg/dL (0.70-1.30) 01/24/23 04:20 Est GFR (MDRD) Af Amer 92 mL/min (>60) 01/24/23 04:20 Est GFR (MDRD) Non-Af 76 mL/min (>60) 01/24/23 04:20 BUN/Creatinine Ratio 14.0 RATIO (10-20) 01/24/23 04:20 Glucose 87 mg/dL (74-106) 01/24/23 04:20 Vancomycin Trough 12.0 ug/mL (5.0-15.0) 01/24/23 17:32 Microbiology: Microbiology 01/21/23 16:40 Urine, Random Urine Culture - Final Culture exhibits no growth. 01/21/23 17:40 Blood Culture (Wb) - Anticubital Right Blood Culture - Preliminary No growth in 48 hours. 01/21/23 16:45 Blood Culture (Wb) - Anticubital Right Blood Culture - Preliminary No growth in 48 hours. 01/21/23 16:40 Nasal Secretion SARS-CoV-2 & FLU Antigen (Rapid) - Final Goal Trough: 15-20 mcg/mL Pharmacy Plan for Drug Dosing: VANCOMYCIN LEVEL RECEIVED Current Vancomycin Dose: 1000mg Q12H Number of Doses Received: 1500mg x1, 1000mg x4 Vancomycin Level: 12.0 Hours Since Last Dose: 12 Renal Function: sCr 1.00 (CrCl 76.9 mL/min) Renal Function Trend: stable Vancomycin Plan/Comments: Increase Vancomycin dosing regimen to 1500mg Q12H, to start at next scheduled dose at 0630 01/25/23 Pending Level: Vancomycin trough @ 1730 01/26/23 Pharmacy Service will continue to monitor and adjust dosing as required. Labs to be done on [date and time ordered]: Vancomycin trough @ 1730 01/26/23
[2023-01-24] MEDS: Clopidogrel Bisulfate 75 MG Tablet PO (21:51)
[2023-01-24] MEDS: Atorvastatin Calcium 80 MG Tablet PO (21:51)
[2023-01-25] MEDS: Senna/Docusate Sodium 1 Tablet 2 TABLET PO (02:36)
[2023-01-25 03:00] VITALS: BP 126/66; PULSE 51; RESP 18; TEMP 37.1; O2SAT 96
--- NOTE | 2023-01-25 03:37 | EKG12_ITS ---
Test Reason : Blood Pressure : / mmHG Vent. Rate : 063 BPM Atrial Rate : 063 BPM P-R Int : 166 ms QRS Dur : 118 ms QT Int : 386 ms P-R-T Axes : 030 -06 028 degrees QTc Int : 395 ms Normal sinus rhythm Possible Left atrial enlargement Non-specific intra-ventricular conduction delay Borderline ECG When compared with ECG of 21-JAN-2023 16:45, Vent. rate has decreased BY 35 BPM QT has shortened Confirmed by LILIAN MURRAY, MONTRELL ([id number]), development editor ELIN CORONA ([id number]) on 01/31/2023 9:05:12 AM Referred By: Confirmed By:MONTRELL QUINTANA MD
[2023-01-25 04:23] VITALS: BP 126/66; PULSE 51; RESP 18; TEMP 37.1; O2SAT 96
[2023-01-25 05:45] LABS: Absolute Lymphocyte Count 1.19 X10^3/uL (0.83-4.51); Absolute Neutrophil Count 5.1 X10^3/uL (2.0-7.7); Basophil# 0.02 X10^3/uL; Basophil% 0.3 % (0-1); Eosinophil# 0.36 X10^3/uL; Eosinophils% 4.9 % (0-5); Hematocrit 35.1 % (40-54); Hemoglobin 11.1 g/dL (13.0-16.5); Lymphocyte # 1.19 X10^3/ul (0.83-4.51); Mean Corp Hgb Conc 31.6 g/dL (32-36); Mean Corpuscular Hgb 26.2 pg (27.0-32.0); Mean Platelet Vol. 9.8 fl (6.2-12.0); Monocyte# 0.68 X10^3/uL; Monocyte% 9.2 % (0-10); NRBC Flagged by Analyzer 0 % (0-5); Neutrophil # 5.13 X10^3/uL (2.7-7.7); Neutrophil % 69.1 % (47-70); Platelet Count 189 K/mm3 (150-450); RBC Distribution Width CV 15.9 % (11.6-14.6); RBC Distribution Width SD 47.9 fl (35.1-43.9); Red Blood Count 4.23 M/mm3 (4.6-6.2); White Blood Count 7.4 K/mm3 (4.4-11.0)
[2023-01-25 05:49] VITALS: BMI 31.6
[2023-01-25 06:32] LABS: Anion Gap 7 (5-15); BUN 13 mg/dL (7-18); Calcium,Total 8.8 mg/dL (8.5-10.1); Chloride 108 mmol/L (98-107); Creatinine, Serum 1.08 mg/dL (0.70-1.30); EST Glomerular Filtration Rate 70 mL/min (>60); Est Glom Filt Rate - Afr Amer 84 mL/min (>60); Estimated Creatinine Clearance 62.37 ml/min; Glucose 84 mg/dL (74-106); Potassium 4.2 mmol/L (3.5-5.1); Sodium Level 139 mmol/L (136-145)
[2023-01-25] MEDS: Carbidopa/Levodopa 25/100 Tablet PO ×3 (06:56→16:37)
[2023-01-25] MEDS: Ensure Plus High Protein 120 ML LIQUID PO ×3 (06:56→16:37)
[2023-01-25] MEDS: Aspirin E.C. 81 MG Tablet PO (06:56)
--- NOTE | 2023-01-25 08:05 | PN.HOSP_ITS ---
Reason for Visit Reason for Visit: Diagnoses Sepsis, unspecified organism (01/21/23) Elevated white blood cell count, unspecified (01/21/23) Acidosis, unspecified (01/21/23) Encephalopathy, unspecified (01/21/23) Lymphedema, not elsewhere classified (01/21/23) Cellulitis, unspecified (01/21/23) Objective Data Objective Data Vital Signs: Vital Signs Temp Pulse Resp BP Pulse Ox O2 Del Method 98.8 F 51 L 18 126/66 H 96 Room Air 01/25/23 04:23 01/25/23 04:23 01/25/23 04:23 01/25/23 04:23 01/25/23 04:23 01/25/23 05:49 Oxygen Delivery Method Room Air Weight: 246 lb 4.101 oz Body Mass Index (BMI) 31.6 Intake & Output: Intake and Output for Last 24 Hours 01/23/23 01/24/23 01/25/23 23:59 23:59 23:59 Intake Total 1530 / 1530 870 / 870 50 / 50 Output Total 2325 / 2325 200 / 200 Balance 1530 / 1330 -1455 / -1455 -150 / -150 Lab / Micro Data Result Diagrams: 01/25/23 05:19 01/25/23 05:19 Labs: Laboratory Results - last 24 hr 01/24/23 17:32: Vancomycin Trough 12.0 01/25/23 05:19: WBC 7.4, RBC 4.23 L, Hgb 11.1 L, Hct 35.1 L, MCV 83.0, MCH 26.2 L, MCHC 31.6 L, RDW Std Deviation 47.9 H, RDW Coeff of Donnie 15.9 H, Plt Count 189, MPV 9.8, Immature Gran % (Auto) 0.500, Neut % (Auto) 69.1, Lymph % (Auto) 16.0 L, [place] % (Auto) 9.2, Eos % (Auto) 4.9, Baso % (Auto) 0.3, Absolute Neuts (auto) 5.1, Absolute Lymphs (auto) 1.19, Nucleated RBC % 0 01/25/23 05:19: Sodium 139, Potassium 4.2, Chloride 108 H, Carbon Dioxide 24.0, Anion Gap 7, BUN 13, Creatinine 1.08, Estim Creat Clear Calc 62.37, Est GFR (MDRD) Af Amer 84, Est GFR (MDRD) Non-Af 70, BUN/Creatinine Ratio 12.0, Glucose 84, Calcium 8.8 Micro: Microbiology 01/21/23 16:40 Urine, Random Urine Culture - Final Culture exhibits no growth. 01/21/23 17:40 Blood Culture (Wb) - Anticubital Right Blood Culture - Preliminary No growth in 48 hours. 01/21/23 16:45 Blood Culture (Wb) - Anticubital Right Blood Culture - Preliminary No growth in 48 hours. 01/21/23 16:40 Nasal Secretion SARS-CoV-2 & FLU Antigen (Rapid) - Final Assessment & Plan Assessment/Plan (1) Cellulitis: (2) Sepsis: QUALIFIERS: Sepsis type: sepsis due to unspecified organism Sepsis acute organ dysfunction status: with acute organ dysfunction Severe sepsis acute organ dysfunction type: encephalopathy (3) Leukocytosis: (4) Lactic acidosis: PLAN: Plan Sepsis secondary to lower extremity cellulitis -Meets criteria with elevated temperature, tachypnea, tachycardia, leukocytosis, relative hypotension, lactic acidosis -Has received fluid boluses at 30 cc/kg -Blood pressures are still lower than normal for him but they are in the normal range and no need of pressors at this time -Lactate clear and no endorgan damage presently -Sepsis has resolved -White count has normalized however patient still has a neutrophilia with a left shift -Urine culture is no growth to date -Blood cultures are with no growth to date -Appears to be related to right lower extremity cellulitis -Has had previous wound infection with polymicrobial infection including Pseudomonas/Staph aureus/Proteus mirabilis -We will continue Vanco and Zosyn for now as I do suspect that it is probably a polymicrobial infection from his lower extremities -Need broad oral coverage at discharge to cover gram-positive and gram- negative infections including MRSA -ED consider imaging of the lower extremity depending on clinical progress -Has seen vascular for this previously on 09/29/2022 -Wound care consulted Leukocytosis -Resolved -Left shift has now resolved as well Chronic stable anemia -Hemoglobin is stable -Restart home Lasix Small vessel PVD/history of venous insufficiency -Continue aspirin and Plavix -Continue outpatient vascular follow-up as previously instructed -ABIs were normal but PVRs were diminished -Restart home Lasix CAD/HTN/HPL -Previous stent in 2019 -Continue aspirin and Plavix -Restart home Lasix -continue home atorvastatin -Last echo was in 2019 showed an EF of 65 to 70%/normal diastolic function/right ventricular systolic pressure 32 mmHg and mild aortic valve insufficiency History of BPH -Patient is not on any medications for this at this time Bilateral lower extremity lymphedema -Chronic -Increases risk for skin infections -Hold Lasix at this time--> consider reinitiation tomorrow depending on blood p ressures Tremors -Continue carbidopa levodopa History of tobacco abuse -Patient's not any scheduled inhalers -As needed albuterol -Continue home guaifenesin -I-S Constipation -As needed meds available -Appears to be chronic issue DVT prophylaxis -Continue Lovenox CODE STATUS Full code Disposition: -Patient is medically stable for discharge. Awaiting placement which has been delayed for holiday weekend. Patient will need pre-CERT prior to discharge
[2023-01-25 09:58] VITALS: BP 109/58; PULSE 62; RESP 16; TEMP 37; O2SAT 96
--- NOTE | 2023-01-25 10:11 | CASEMGMT ---
Per admission questions patient does not have Healthcare Power of Obgyn Hospitalist Physician or Healthcare Living Will and patient is not interested in either. Maral Rsos BROADCAST CHIEF ENGINEER MARSHA
--- NOTE | 2023-01-25 10:27 | PCM.TXEXTCAR ---
Diet Diet Order/Speech Therapy: 01/21/23 21:41 Diet: Cardiac - Heart Healthy Food consistency:: Regular Liquid Consistency:: Regular/Thin Routine Orders/Code Status Suppository Type: Dulcolax 10mg Suppository Frequency: Daily PRN Code Status: Full Code Wound(s) L sinclair: Wound Type: Abrasion R sinclair: Wound Type: Abrasion Problem/Diagnosis (1) Cellulitis: Status: Acute Code(s): L03.90 - Cellulitis, unspecified (2) Sepsis: Status: Acute Code(s): A41.9 - Sepsis, unspecified organism (3) Leukocytosis: Status: Acute Code(s): D72.829 - Elevated white blood cell count, unspecified (4) Lactic acidosis: Status: Acute Code(s): E87.20 - Acidosis, unspecified Plan Sepsis secondary to lower extremity cellulitis -Meets criteria with elevated temperature, tachypnea, tachycardia, leukocytosis, relative hypotension, lactic acidosis -Has received fluid boluses at 30 cc/kg -Blood pressures are still lower than normal for him but they are in the normal range and no need of pressors at this time -Lactate clear and no endorgan damage presently -Sepsis has resolved -White count has normalized however patient still has a neutrophilia with a left shift -Urine culture is no growth to date -Blood cultures are with no growth to date -Appears to be related to right lower extremity cellulitis -Has had previous wound infection with polymicrobial infection including Pseudomonas/Staph aureus/Proteus mirabilis -We will continue Vanco and Zosyn for now as I do suspect that it is probably a polymicrobial infection from his lower extremities -Need broad oral coverage at discharge to cover gram-positive and gram-negative infections including MRSA -ED consider imaging of the lower extremity depending on clinical progress -Has seen vascular for this previously on 09/29/2022 -Wound care consulted Leukocytosis -Resolved -Left shift has now resolved as well Chronic stable anemia -Hemoglobin is stable -Restart home Lasix Small vessel PVD/history of venous insufficiency -Continue aspirin and Plavix -Continue outpatient vascular follow-up as previously instructed -ABIs were normal but PVRs were diminished -Restart home Lasix CAD/HTN/HPL -Previous stent in 2019 -Continue aspirin and Plavix -Restart home Lasix -continue home atorvastatin -Last echo was in 2019 showed an EF of 65 to 70%/normal diastolic function/right ventricular systolic pressure 32 mmHg and mild aortic valve insufficiency History of BPH -Patient is not on any medications for this at this time Bilateral lower extremity lymphedema -Chronic -Increases risk for skin infections -Hold Lasix at this time--> consider reinitiation tomorrow depending on blood pressures Tremors -Continue carbidopa levodopa History of tobacco abuse -Patient's not any scheduled inhalers -As needed albuterol -Continue home guaifenesin -I-S Constipation -As needed meds available -Appears to be chronic issue DVT prophylaxis -Continue Lovenox CODE STATUS Full code Disposition: -Patient is medically stable for discharge. Awaiting placement which has been delayed for holiday weekend. Patient will need pre-CERT prior to discharge Allergies/Procedures Done in Hospital Allergies lemon Allergy (Intermediate, Verified 01/21/23 16:28) blisters on hands [place] [facility] chippewa-cree Allergy (Intermediate, Verified 01/21/23 16:28) blisters on hands [place] [facility] [facility] strawberry Allergy (Intermediate, Verified 01/21/23 16:28) blisters on hands Type of Care/Length of Stay Estimated LOS: Convalescent Care Less Than 30 days Type of Care Needed: Skilled Rehab Potential: Good Prognosis: Good Additional Orders/Day of Discharge Day of Discharge: 01/25/23 Dietary and Speech Recommendations Dietitian Recommendations/Changes: continue cardiac diet w/ ensure plus high protein 120mL TID as needed; will monitor PO intake and adjust diet/ONS as indicated. Discharge Plan Admission Admit Date/Time: 01/21/23 20:50 Primary Reason for Your Visit: sepsis to due Lower extremities cellulitis Attending Provider: Kwasi Naranjo Primary Care Provider: Lam Huffman Consulting Providers: Barbre Brown ; Cade Richter ; Isabel Espinal Discharge Orders/Prescriptions Prescriptions: New furosemide 40 mg Tablet 40 mg PO DAILY Qty: 0 0RF Rx Instructions: Take an additional 40 mg dose at 5 PM for increased leg swelling or weight gain 5 pounds in 1 week. acetaminophen 325 mg Tablet 650 mg PO Q6H PRN PRN (Reason: Pain 1-10 Or Fever>100.7) Qty: 0 0RF polyethylene glycol 3350 17 gram Powder In Packet 17 g PO BID Qty: 0 0RF Rx Instructions: Twice daily for 3 days and then once daily sennosides-docusate sodium [Stool Softener-Stimulant Laxat] 8.6-50 mg Tablet 2 tab PO BID Qty: 0 0RF amoxicillin-pot clavulanate [Augmentin] 500-125 mg tablet 1 tab PO BID 7 Days Qty: 14 0RF doxycycline hyclate 100 mg tablet 100 mg PO BID 7 Days Qty: 14 0RF Continued aspirin 81 MG tablet 81 mg PO DAILY@0800 0RF carbidopa-levodopa 1 EACH tablet,disintegrating 1 ea PO TID potassium chloride 20 mEq tablet,ER particles/crystals See Rx Instructions .ROUTE .COMPLEX Label Comments: Take 2 tablets by mouth every morning AND 1 tablet every afternoon. Rx Instructions: 40meq orally each am and 20 mEq orally afternoon atorvastatin 40 mg tablet 80 mg PO QHS clopidogrel [Plavix] 75 mg tablet 75 mg PO QHS glycerin (adult) [Fleet Glycerin (Adult)] Suppository 1 supp ME DAILY PRN (Reason: Constipation) bisacodyl 10 mg Suppository 10 mg ME DAILY PRN (Reason: Constipation) guaifenesin [Mucinex] 600 mg Tablet Extended Release 12hr 600 mg PO Q12H PRN (Reason: Cough) Discontinued furosemide 20 mg tablet 40 mg PO DAILY Label Comments: Take 1 tablet by mouth twice daily. polyethylene glycol 3350 17 gram Powder In Packet 17 g PO DAILY PRN (Reason: Constipation) senna-docusate sodium Tablet 1 tab PO BID PRN (Reason: Constipation) guaifenesin 50 mg/5 mL Liquid 100 mg PO Q4H PRN (Reason: Cough) Milk of Magnesia 30 ml PO/SL DAILY PRN (Reason: Constipation) Referrals / Follow Up: Forest Lawson DPM [Med Staff - Active Staff] - Within 2 Weeks (in wound center) Lam Huffman MD [Primary Care Provider] - Within 2 Weeks Disposition Disposition (needs filled in before D/C Order can be placed): [facility] (1) Sepsis Qualifiers: Sepsis type: sepsis due to unspecified organism Sepsis acute organ dysfunction status: with acute organ dysfunction Severe sepsis acute organ dysfunction type: encephalopathy
[2023-01-25] MEDS: Furosemide 40 MG Tablet PO (10:28)
[2023-01-25] MEDS: Enoxaparin 40 MG/0.4 ML Syringe SC (10:28)
[2023-01-25] MEDS: Acetaminophen 325 MG Tablet 650 MG PO (10:28)
--- NOTE | 2023-01-25 11:39 | CASEMGMT ---
Discharge Planning [facility] declined d/t having no beds. Patient would like to return to his AL unit and receive therapy there, if unable, he said he would go to [facility]. Updates sent to Gualberto ann/Shamar Brewer. Gualberto has concerns with patients decline and stated he will need SNF placement prior to returning. Referral sent to [facility] via [facility]. Elizabeth Sampson
[2023-01-25] MEDS: Polyethylene Glycol 3350 17 GM PACKET PO (13:39)
--- NOTE | 2023-01-25 13:45 | CASEMGMT ---
Discharge Planning Updated therapy notes sent to [facility] via [facility]. Elizabeth Sampson
--- NOTE | 2023-01-25 14:20 | CASEMGMT ---
Patient was approved for [facility]. notified physician. Awaiting physician's decision as to whether or not he will send patient today. Maral LARSON
--- NOTE | 2023-01-25 14:47 | PCM.DC.SUM ---
Providers Date of Admission: 01/21/23 Date of Discharge: 01/25/23 Primary Care Physician: Dr. Lam Huffman MD Consultations 01/21/23 21:41 Consult: Holistic Health Practitioner / Pulmonary Medicine Routine Consulting Provider: Cade Richter Reason for Consult: Sepsis EMERGENT Consult: No MD Notified: Yes Date Notified: 01/21/23 Time Notified: 21:01 Method of Notification: Text 01/22/23 01:57 Consult: Onc/Wound/television installer helper Routine Comment: Reason for Consult:: Lymphedema of bilateral legs Reason For Visit: SEPSIS Diagnosis Discharge Diagnosis (1) Cellulitis: Status: Acute Code(s): L03.90 - Cellulitis, unspecified (2) Sepsis: Status: Acute Code(s): A41.9 - Sepsis, unspecified organism Qualifiers: Sepsis acute organ dysfunction status: with acute organ dysfunction Sepsis type: sepsis due to unspecified organism Severe sepsis acute organ dysfunction type: encephalopathy (3) Leukocytosis: Status: Acute Code(s): D72.829 - Elevated white blood cell count, unspecified (4) Lactic acidosis: Status: Acute Code(s): E87.20 - Acidosis, unspecified Plan The is a 83-year-old gentleman was admitted in ICU from [facility] for 1 to 2 days a history of confusion/altered mental status, high fever temperature 101.3 ?F, normotensive but tachypneic 32/min. Patient had leukocytosis WBC count 20.4 thousand with lactic acidosis 2.5. Patient was admitted in ICU with diagnosis of sepsis. 1. Sepsis secondary to lower extremity cellulitis: The patient presented with sepsis with clinical indicators of high fever, tachypnea, leukocytosis due to ----- with acute sepsis-related organ dysfunction as evidenced by lactic acidosis and relative hypotension, BP dropped from 140/69-95/46, 105/60. Patient had IV fluid bolus as per sepsis criteria. Patient is started on broad-spectrum antibiotic IV vancomycin and Zosyn. Leukocytosis resolved. Blood pressure profile got better. Sepsis resolved. -Urine culture is no growth to date -Blood cultures are with no growth to date. Wound care was consulted. Previous wound culture of 08/11/2022 reported polymicrobial infection including Pseudomonas/Staph aureus/Proteus mirabilis and anaerobic cocci. Discussed with ID. Patient had 5 days of IV antibiotic and agreed on 7 more days of doxycycline and Augmentin. Prescription was given. -We will continue Vanco and Zosyn for now as I do suspect that it is probably a polymicrobial infection from his lower extremities -Need broad oral coverage at discharge to cover gram-positive and gram-negative infections including MRSA Chronic stable anemia -Hemoglobin is stable between 10 to 11 g. -Home dose Lasix regimen. Small vessel PVD/history of venous insufficiency -Continue aspirin and Plavix -Continue outpatient vascular follow-up as previously instructed -ABIs were normal but PVRs were diminished -Restart home Lasix CAD/HTN/HPL -Previous stent in 2019 -Continue aspirin and Plavix -Restart home Lasix -continue home atorvastatin -Last echo was in 2019 showed an EF of 65 to 70%/normal diastolic function/right ventricular systolic pressure 32 mmHg and mild aortic valve insufficiency History of BPH -Patient is not on any medications for this at this time Bilateral lower extremity lymphedema -Chronic Advised follow-up in wound clinic. Tremors -Continue carbidopa levodopa History of tobacco abuse -Patient's not any scheduled inhalers -As needed albuterol -Continue home guaifenesin -I-S Constipation Severe: MiraLAX 17 g twice daily for 3 days then once daily. Senna S2 tablet twice daily. Patient also on as needed Dulcolax suppository and Fleet enema in [facility]. DVT prophylaxis -Continue Lovenox CODE STATUS Full code Discharge medication reconciliation done. Discharge follow-up instructions completed. Discharge process discussed with the patient and all questions were answered to patient's satisfaction. Follow-up in wound clinic every week. Follow with housecleaner floor and ID. Total time spent, exact 35 minutes on discharge meds reconciliation, examination, coordination of care with nurses and ancillary staff, review of imaging and blood test and discussion with the patient on follow-up instructions. Medications at Discharge Home Medications aspirin 81 mg tablet,delayed release 81 mg PO DAILY@0800 11/13/18 carbidopa 25 mg-levodopa 100 mg disintegrating tablet 1 ea PO TID tremors 02/23/20 potassium chloride 20 mEq tablet,extended release(part/cryst) See Rx Instructions .Route .COMPLEX health maintenance 05/04/21 atorvastatin 40 mg tablet 80 mg PO QHS 08/07/21 clopidogrel 75 mg tablet (Plavix) 75 mg PO QHS 08/07/21 bisacodyl 10 mg rectal suppository 10 mg UT DAILY PRN Constipation 11/07/21 glycerin (adult) (Fleet Glycerin (Adult) rectal suppository) 1 supp UT DAILY PRN Constipation 11/07/21 guaifenesin 600 mg tablet, extended release 12 hr (Mucinex) 600 mg PO Q12H PRN Cough 01/21/23 acetaminophen 325 mg tablet 650 mg PO Q6H PRN PRN Pain 1-10 Or Fever>100.7 #0 tabs 01/25/23 amoxicillin 500 mg-potassium clavulanate 125 mg tablet (Augmentin) 1 tab PO BID 7 days #14 tabs 01/25/23 doxycycline hyclate 100 mg tablet 100 mg PO BID 7 days #14 tabs 01/25/23 furosemide 40 mg tablet 40 mg PO DAILY #0 tabs 01/25/23 polyethylene glycol 3350 17 gram oral powder packet 17 g PO BID #0 ea 01/25/23 sennosides 8.6 mg-docusate sodium 50 mg tablet (Stool Softener-Stimulant Laxative) 2 tab PO BID #0 tabs 01/25/23 Physical Exam Narrative Seen and examined. Discussed with nursing staff. Patient has 2 ulcers on the right lower leg; 1 on medial and 1 lateral side. 1 on the left sinclair. General: Alert, Oriented x3, Cooperative HEENT: Atraumatic, PERRLA, EOMI, Normocephalic Oral: Oral mucosa moist. No Gingival or Mucosal Lesions/ Ulcerations Neck: Supple, No JVD, Negative Carotid Bruits Lungs: Air entry diminished in bilateral lung bases. No crepitation/rhonchi Cardiovascular: Regular rate, Regular Rhythm, Normal S1, Normal S2, No murmurs Abdomen: Bowel Sounds Present, Soft, Non Tender, Non-Distended : No renal angle tenderness. No suprapubic tenderness. Extremities: No edema, Capillary Refill Less than 3 Seconds Skin: Superficial ulcers, subcutaneous deep. 2 on the right leg and one left leg. Musculoskeletal: Bilateral lower leg lymphedema. Muscle strength 4/5 at major joints of lower extremities. No Tenderness to Palpation of Joints or Extremities Neurological: Tremors. Increased muscle rigidity. Parkinson's disease. Cranial nerves II-XII grossly intact Psych/Mental Status: Flat affect Weight / BMI Weight Weight: 246 lb 4.101 oz Body Mass Index (BMI) 31.6 ABG / Lab / Microbiology Data Result Diagrams: 01/25/23 05:19 01/25/23 05:19 Laboratory: Laboratory Results - last 24 hr 01/24/23 17:32: Vancomycin Trough 12.0 01/25/23 05:19: WBC 7.4, RBC 4.23 L, Hgb 11.1 L, Hct 35.1 L, MCV 83.0, MCH 26.2 L, MCHC 31.6 L, RDW Std Deviation 47.9 H, RDW Coeff of Donnie 15.9 H, Plt Count 189, MPV 9.8, Immature Gran % (Auto) 0.500, Neut % (Auto) 69.1, Lymph % (Auto) 16.0 L, [place] % (Auto) 9.2, Eos % (Auto) 4.9, Baso % (Auto) 0.3, Absolute Neuts (auto) 5.1, Absolute Lymphs (auto) 1.19, Nucleated RBC % 0 01/25/23 05:19: Sodium 139, Potassium 4.2, Chloride 108 H, Carbon Dioxide 24.0, Anion Gap 7, BUN 13, Creatinine 1.08, Estim Creat Clear Calc 62.37, Est GFR (MDRD) Af Amer 84, Est GFR (MDRD) Non-Af 70, BUN/Creatinine Ratio 12.0, Glucose 84, Calcium 8.8 Microbiology: Microbiology 01/21/23 16:40 Urine, Random Urine Culture - Final Culture exhibits no growth. 01/21/23 17:40 Blood Culture (Wb) - Anticubital Right Blood Culture - Preliminary No growth in 48 hours. 01/21/23 16:45 Blood Culture (Wb) - Anticubital Right Blood Culture - Preliminary No growth in 48 hours. 01/21/23 16:40 Nasal Secretion SARS-CoV-2 & FLU Antigen (Rapid) - Final Meaningful Use Info Meaningful Use Diagnoses (Choose all that apply): None applicable Discharge Plan Admission Admit Date/Time: 01/21/23 20:50 Primary Reason for Your Visit: sepsis to due Lower extremities cellulitis Attending Provider: Kwasi Naranjo Primary Care Provider: Lam Huffman Consulting Providers: Barber Brown ; Cade Richter ; Isabel Espinal Instructions Additional Instructions / Restrictions: Follow-up in wound clinic every week. Discharge Orders/Prescriptions Prescriptions: New furosemide 40 mg Tablet 40 mg PO DAILY Qty: 0 0RF Rx Instructions: Take an additional 40 mg dose at 5 PM for increased leg swelling or weight gain 5 pounds in 1 week. acetaminophen 325 mg Tablet 650 mg PO Q6H PRN PRN (Reason: Pain 1-10 Or Fever>100.7) Qty: 0 0RF polyethylene glycol 3350 17 gram Powder In Packet 17 g PO BID Qty: 0 0RF Rx Instructions: Twice daily for 3 days and then once daily sennosides-docusate sodium [Stool Softener-Stimulant Laxat] 8.6-50 mg Tablet 2 tab PO BID Qty: 0 0RF amoxicillin-pot clavulanate [Augmentin] 500-125 mg tablet 1 tab PO BID 7 Days Qty: 14 0RF doxycycline hyclate 100 mg tablet 100 mg PO BID 7 Days Qty: 14 0RF Continued aspirin 81 MG tablet 81 mg PO DAILY@0800 0RF carbidopa-levodopa 1 EACH tablet,disintegrating 1 ea PO TID potassium chloride 20 mEq tablet,ER particles/crystals See Rx Instructions .ROUTE .COMPLEX Label Comments: Take 2 tablets by mouth every morning AND 1 tablet every afternoon. Rx Instructions: 40meq orally each am and 20 mEq orally afternoon atorvastatin 40 mg tablet 80 mg PO QHS clopidogrel [Plavix] 75 mg tablet 75 mg PO QHS glycerin (adult) [Fleet Glycerin (Adult)] Suppository 1 supp UT DAILY PRN (Reason: Constipation) bisacodyl 10 mg Suppository 10 mg UT DAILY PRN (Reason: Constipation) guaifenesin [Mucinex] 600 mg Tablet Extended Release 12hr 600 mg PO Q12H PRN (Reason: Cough) Discontinued furosemide 20 mg tablet 40 mg PO DAILY Label Comments: Take 1 tablet by mouth twice daily. polyethylene glycol 3350 17 gram Powder In Packet 17 g PO DAILY PRN (Reason: Constipation) senna-docusate sodium Tablet 1 tab PO BID PRN (Reason: Constipation) guaifenesin 50 mg/5 mL Liquid 100 mg PO Q4H PRN (Reason: Cough) Milk of Magnesia 30 ml PO/SL DAILY PRN (Reason: Constipation) Referrals / Follow Up: Forest Lawson DPM [Med Staff - Active Staff] - Within 2 Weeks (in wound center) Celestino Chapman MD [Med Staff - Active Staff] - Within 1 Month (for recurrent cellulitis) Lam Huffman MD [Primary Care Provider] - Within 2 Weeks Disposition Disposition (needs filled in before D/C Order can be placed): [facility] Charges/Coding Visit Charges Inpatient E&M: 78032 Disch Hosp >30min
--- NOTE | 2023-01-25 15:10 | CASEMGMT ---
Discharge Planning Discharge orders and signed med list sent to [facility] via [facility]. Elizabeth Sampson
--- NOTE | 2023-01-25 15:21 | CASEMGMT ---
Addendum entered by Maral Ross 01/25/23 15:24: Plan: d/c to [facility] under skilled level of care on a convalescent stay. Maral LARSON Original Note: ALESSANDRO called [facility] to arrange transport as is required by patient's insurance. ALESSANDRO requested [facility] and wheelchair. Trip number is [id number]. Maral LARSON
--- NOTE | 2023-01-25 15:40 | CASEMGMT ---
SW met with patient. ALESSANDRO explained to patient that Gualberto at [facility] feels [facility] needs to go to the [facility] for [facility]hab before he can return to assisted living. ALESSANDRO let patient know [facility] can take him and his insurance approved him so he will go today. ALESSANDRO re-explained that d/c marketing planning manager Elizabeth spoke with him yesterday. Referrals were sent to his 3 choices and none of them could take patient. ALESSANDRO reminded patient he told Elizabeth at the end of the day yesterday he will go to [facility]. At that time patient received a phone call. Plan: d/c to [facility] under skilled level of care. Maral LARSON
[2023-01-25 16:00] VITALS: BP 110/56; PULSE 98; RESP 16; TEMP 36.7; O2SAT 98
--- NOTE | 2023-01-25 16:05 | CASEMGMT ---
ALESSANDRO called [facility] and spoke with Marcus. They did get requests from [facility]. [facility] will flower buncher or picker patient at [phone] via wheelchair. ALESSANDRO notified set up and charger and RN. Maral LARSON
--- NOTE | 2023-01-25 16:06 | CASEMGMT ---
Discharge Planning CC notified of pickup time via Allison Sampson
[2023-01-25] MEDS: Potassium Chloride Oral Tablet 20 MEQ PO (16:37)
--- NOTE | 2023-01-25 17:32 | NURSING ---
Report called to [facility]
--- NOTE | 2023-01-25 19:00 | NURSING ---
Pt informed by SW and this RN of transport to [facility] by wheelchair and [facility]. Approximately [phone] pt called out requesting to speak to this RN about transport and informed this RN that he could not ride by wheelchair because of PTSD from a childhood situation. This RN educated pt that this would be the safest way to transport and offered medication for anxiety. Despite education pt still refused transport by physicians and requested to be transported to [facility] by his friend. [facility] updated.
== END 2023-01-25 18:37 | disposition skilled nursing facility (03) | DRG 871 ==
LOC: ED 17:36 → ICU 01-22 06:20 → PCU 01-22 12:57 → ICU 01-24 18:05 → PCU 01-24 18:05
PROVIDERS: Internal Medicine; Internal Medicine Critical Care Medicine; Physician Assistant; Admitting Provider Hospitalist; Emergency Provider Emergency Medicine; PCP Internal Medicine; Visit Provider Internal Medicine
DX: A41.9 Sepsis, unspecified organism (principal); G93.41 Metabolic encephalopathy; E87.20 Acidosis, unspecified; L03.115 Cellulitis of right lower limb; I73.9 Peripheral vascular disease, unspecified; R65.20 Severe sepsis without septic shock; I89.0 Lymphedema, not elsewhere classified; I25.10 Atherosclerotic heart disease of native coronary artery without angina pectoris; I10 Essential (primary) hypertension; E78.5 Hyperlipidemia, unspecified; D64.9 Anemia, unspecified; I87.2 Venous insufficiency (chronic) (peripheral); K59.09 Other constipation; I25.2 Old myocardial infarction; R25.1 Tremor, unspecified; H91.93 Unspecified hearing loss, bilateral; R73.03 Prediabetes; Z95.5 Presence of coronary angioplasty implant and graft; Z79.01 Long term (current) use of anticoagulants; Z79.02 Long term (current) use of antithrombotics/antiplatelets; Z79.82 Long term (current) use of aspirin; Z79.899 Other long term (current) drug therapy; Z87.891 Personal history of nicotine dependence
CPT/HCPCS: 11042; 11045; 29581; 36415; 71045; 80048; 80053; 80202; 81001; 83605; 83735; 84100; 84443; 85025; 85610; 85730; 87040; 87086; 87428; 87641; 93005; 97110; 97116; 97162; 97166; 97530; 97535; 97802; 97803; 99285; J7030; J7040; J7050; P9612; A4216

== ENCOUNTER 2023-02-09 10:15 | Outpatient (RCR) | payer MEDICARE, MEDICAID, SELFPAY ==
[2023-01-26 00:24] VITALS: BP 120/60; PULSE 74; RESP 22; TEMP 36.4
[2023-02-02 10:00] VITALS: BP 130/59; PULSE 71; RESP 20; TEMP 523.3; TEMP 974
--- NOTE | 2023-02-02 12:46 | PN.PCM_ITS ---
History of Present Illness Date of Service: 02/02/23 Chief Complaint: Bilateral lower extremity ulcers History of Wound: Mr. Boles is an 82-year-old currently residing at [facility] who presents due to nonhealing bilateral lower extremity ulceration. Has been present for some months. Has had some dressing changes done at his facility without any significant improvement. 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 Not very active. Significant bilateral lower extremity edema. He denies chills, fever or feeling of unwell. He states that his appetite is good. Progress of Wound: Recent hospital admission for cellulitis. Work-up however with no significant culture growth. Discharged on antibiotics. Has been using his compression and dressing changes as recommended. Continues to have significant improvement in his lower extremity edema. Minimal areas left now. Objective Data Objective Data Vital Signs: Vital Signs Temp Pulse Resp BP 974 F H 71 20 H 130/59 H 02/02/23 10:00 02/02/23 10:00 02/02/23 10:00 02/02/23 10:00 Charges/Coding Procedures Integumentary 111xxx-113xx: [id number] Jaye subq tissue 20 sq cm/< (Selective debridement done, please refer to clinical note. ) Physical Exam Const alert, oriented x3 and no apparent distress General Appearance: cooperative, comfortable and well kempt HEENT normocephalic and head/scalp atraumatic Eyes EOMs intact bilaterally General Eye: normal appearance of both eyes Neck full ROM General: normal visual inspection Resp normal respiratory effort Effort and Inspection: able to speak in complete sentences Extremity General Extremity: edema Skin Wounds: wounds noted Neuro oriented x3, CN's II-XII intact bilaterally, moves all extremities and no focal motor deficits Psych mental status grossly normal, thought process normal, cooperative and affect normal Debridement Note Debridement Note Wound debrided: Right lower extremity lateral cluster Type of Debridement: Excisional debridement Anesthesia Used: 5% Lidocaine Gel Depth: Down to and including healthy tissue and in the subcutaneous layer Percentage of wound debrided: 100 Tissue Removed: Devitalized tissue Severity: Limited To Skin Breakdown Amount of bleeding with debridement: Mild Bleeding Controlled with: Pressure Patient tolerated procedure: Patient tolerated procedure well Post-Debridement Measurements and Additional Note: Post-Debridement Measurements/Treatment WC - Nurse 1 - General Ulcer Assessment Start: 02/02/23 10:00 Freq: Status: Active Protocol: WC.NAVID Activity Type Activity Date Activity User E-sign Co-sign Detail Recorded Client Recorded Date Recorded By Document 02/02/23 10:00 [id number] 02/02/23 10:17 DL 02/02/23 10:00 - Today's Visit Information Type of service Follow-up Visit (Physician/TRANSFER STATION ATTENDANT ) Arrival Mode Wheelchair Transfer Assistance Manual Transfer Assist (Other) x2 Patient Identification Verified (Name & Yes ) Patient Requires Transmission-Based No Precautions Vital Signs Temperature (97.8 F-99.1 F) 974 F H Temperature Source Temporal Pulse Rate (60-100) 71 Pulse Location Monitor Respiratory Rate (12-18) 20 H Respiratory rate source Observation Blood Pressure (90/60-120/80) 130/59 H Blood Pressure Mean (mm Hg) 82 Source Monitor History Since Last Visit- (Skip if this is Patient's initial visit) Have you changed medications since your No last visit? Any new allergies or adverse reactions No Had a fall/change in ADL's that may No increase risk of falls Signs or symptoms of abuse and/or No neglect since last visit Have you been in the hospital since your No last visit? Has dressing in place as prescribed Yes Has compression in place as prescribed Yes Has offloadiing in place as prescribed N/A Experienced any changes in pain level or No management Pain Scale: 0-10 Numeric Is Patient Pain Free? Yes - Nurse 1 - General Ulcer Measurement Start: 02/02/23 10:00 Freq: Status: Active Protocol: Activity Type Activity Date Activity User E-sign Co-sign Detail Recorded Client Recorded Date Recorded By Document 02/02/23 10:00 [id number] 02/02/23 10:17 DL 02/02/23 10:00 Wound Center Nurse 1 #9 Left sinclair -Current Size (cm) - Length 0 -Current Size (cm) - Width 0 -Current Size (cm) - Depth 0 -Total Square Cm 0 -Photo Taken Yes -Exudate Amt None Present -Wound Margin Flat & Intact -Granulation Amt Large (67-100%) -Granulation Quality [place] -Necrosis Amt None Present (0 %) -Structure Exposed N/A -Texture ([place]-wound Skin Appearance) Scarring -Moisture ([place]-wound Skin Appearance) Dry/Scaly -Color ([place]-wound Skin Appearance) Hemosiderin Staining -Temperature ([place]-wound Skin No Abnormality Appearance) (Pt Warm) -Tenderness on Palpation ([place]-wound No Skin Appearance) -Ulcer Cleansing Soap and Water -Foul Odor after Cleansing No #8- RLE/ANKLE -Current Size (cm) - Length 0.1 -Current Size (cm) - Width 0.1 -Current Size (cm) - Depth 0.1 -Total Square Cm 0.01 -Photo Taken Yes -Exudate Amt None Present -Wound Margin Thickened -Granulation Amt Large (67-100%) -Granulation Quality [place] -Necrosis Amt None Present (0 %) -Structure Exposed N/A -Texture ([place]-wound Skin Appearance) Scarring -Moisture ([place]-wound Skin Appearance) Dry/Scaly -Color ([place]-wound Skin Appearance) Hemosiderin Staining -Temperature ([place]-wound Skin No Abnormality Appearance) (Pt Warm) -Tenderness on Palpation ([place]-wound No Skin Appearance) -Ulcer Cleansing Soap and Water -Foul Odor after Cleansing No -Anesthetic Used 5% Lidocaine Gel #7 right medial sinclair -Current Size (cm) - Length 0.1 -Current Size (cm) - Width 0.1 -Current Size (cm) - Depth 0.1 -Total Square Cm 0.01 -Photo Taken Yes -Exudate Amt None Present -Wound Margin Thickened -Granulation Amt Small (1-33%) -Granulation Quality [place] -Necrosis Amt Small (1-33%) -Necrotic Tissue Type Adherent Slough -Structure Exposed N/A -Texture ([place]-wound Skin Appearance) Scarring -Moisture ([place]-wound Skin Appearance) Dry/Scaly -Color ([place]-wound Skin Appearance) Hemosiderin Staining -Temperature ([place]-wound Skin No Abnormality Appearance) (Pt Warm) -Tenderness on Palpation ([place]-wound No Skin Appearance) -Ulcer Cleansing Soap and Water -Foul Odor after Cleansing No -Anesthetic Used 5% Lidocaine Gel #6 right lateral sinclair -Current Size (cm) - Length 0.1 -Current Size (cm) - Width 0.1 -Current Size (cm) - Depth 0.1 -Total Square Cm 0.01 -Photo Taken Yes -Exudate Amt None Present -Wound Margin Thickened -Granulation Amt Large (67-100%) -Granulation Quality [place] -Necrosis Amt Small (1-33%) -Necrotic Tissue Type Adherent Slough -Structure Exposed N/A -Texture ([place]-wound Skin Appearance) Scarring -Moisture ([place]-wound Skin Appearance) Dry/Scaly -Color ([place]-wound Skin Appearance) Hemosiderin Staining -Temperature ([place]-wound Skin No Abnormality Appearance) (Pt Warm) -Tenderness on Palpation ([place]-wound No Skin Appearance) -Ulcer Cleansing Soap and Water -Foul Odor after Cleansing No -Anesthetic Used 5% Lidocaine Gel Right Calf (cm) 47 Right Ankle (cm) 30.9 Left Calf (cm) 53.5 Left Ankle (cm) 34.2 WC - Nurse 2 - General Ulcer CM Notes Start: 02/02/23 10:00 Freq: Status: Active Protocol: Activity Type Activity Date Activity User E-sign Co-sign Detail Recorded Client Recorded Date Recorded By Document 02/02/23 11:03 MW [id number] 02/02/23 11:14 MW 02/02/23 11:03 Wound Center Nurse 2 #9 Left sinclair -Time 11:04 -Correct Patient Yes -Correct Side, Site, Position Yes -Correct Procedure Yes -Procedure Performed No -Post Debridement (cm) - Length 0 -Post Debridement (cm) - Width 0 -Post Debridement (cm) - Depth 0 -Total Square (Post) (cm) 0 -Tunneling No -Undermining/Tunneling No -Circular Undermining No -Wound/Ulcer Outcome Healed- Epithelialized #8- RLE/ANKLE -Time 11:06 -Correct Patient Yes -Correct Side, Site, Position Yes -Correct Procedure Yes -Procedure Performed No -Post Debridement (cm) - Length 0.1 -Post Debridement (cm) - Width 0.1 -Post Debridement (cm) - Depth 0.1 -Total Square (Post) (cm) 0.01 -Tunneling No -Undermining/Tunneling No -Circular Undermining No -Wound/Ulcer Outcome Not Healed -Ulcer Cleansing Rinsed/ Irrigated with Saline -Foul Odor after Cleansing No -Bioengineered Tissue No -Bleeding Controlled with NA -Offloading No #7 right medial sinclair -Time 11:08 -Correct Patient Yes -Correct Side, Site, Position Yes -Correct Procedure Yes -Procedure Performed Yes -Type of Procedure Debridement -Clinical Debridement Subcutaneous -Tissue Removed Subcutaneous -Post Debridement (cm) - Length 0.1 -Post Debridement (cm) - Width 0.1 -Post Debridement (cm) - Depth 0.1 -Total Square (Post) (cm) 0.01 -Area of Debridement (cm) - Length 0.1 -Area of Debridement (cm) - Width 0.1 -Total Square (Area) (cm) 0.01 -Tunneling No -Undermining/Tunneling No -Circular Undermining No -Wound/Ulcer Outcome Not Healed -Ulcer Cleansing Rinsed/ Irrigated with Saline -Foul Odor after Cleansing No -Bioengineered Tissue No -Bleeding Controlled with Pressure -Treatment Response Procedure Tolerated Well -Offloading No -Debridement - Subq, 1st 20sq cm Yes #6 right lateral sinclair -Time 11:09 -Correct Patient Yes -Correct Side, Site, Position Yes -Correct Procedure Yes -Procedure Performed Yes -Type of Procedure Debridement -Clinical Debridement Subcutaneous -Tissue Removed Subcutaneous -Post Debridement (cm) - Length 0.1 -Post Debridement (cm) - Width 0.1 -Post Debridement (cm) - Depth 0.1 -Total Square (Post) (cm) 0.01 -Area of Debridement (cm) - Length 0.1 -Area of Debridement (cm) - Width 0.1 -Total Square (Area) (cm) 0.01 -Tunneling No -Undermining/Tunneling No -Circular Undermining No -Wound/Ulcer Outcome Not Healed -Ulcer Cleansing Rinsed/ Irrigated with Saline -Foul Odor after Cleansing No -Bioengineered Tissue No -Bleeding Controlled with Pressure -Treatment Response Procedure Tolerated Well -Offloading No -Debridement - Subq, 1st 20sq cm No Pain Scale: 0-10 Numeric Is Patient Pain Free? Yes WC - Nurse 3 - General Ulcer D/C NN Start: 02/02/23 10:00 Freq: Status: Active Protocol: Activity Type Activity Date Activity User E-sign Co-sign Detail Recorded Client Recorded Date Recorded By Document 02/02/23 11:27 [facility] [id number] 02/02/23 11:28 BMF Document 02/02/23 11:46 DL [id number] 02/02/23 11:50 DL 02/02/23 02/02/23 11:27 11:46 Wound Care Center Nurse 3 #8- RLE/ANKLE -Ulcer Cleansing Rinsed/ Rinsed/ Irrigated with Irrigated with Saline Saline -Foul Odor after Cleansing No No -Primary Dressing Applied Silvercel Silvercel -Other Dressing BACTROBAN; DRSG bactroban PER DL [employer]W -Primary Dressing Covered/Secured with Dry Gauze -Other Covering ABD -Silvercel 1 1 #7 right medial sinclair -Ulcer Cleansing Rinsed/ Rinsed/ Irrigated with Irrigated with Saline Saline -Foul Odor after Cleansing No No -Primary Dressing Applied Aquacel Extra Aquacel Extra -Other Dressing BACTROBAN; DRSG bactroban PER DL LABORER POLE 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 -Primary Dressing Covered/Secured with Dry Gauze -Aquacel Extra 1 1 #6 right lateral sinclair -Ulcer Cleansing Rinsed/ Rinsed/ Irrigated with Irrigated with Saline Saline -Foul Odor after Cleansing No No -Primary Dressing Applied Aquacel Extra -Other Dressing BACTROBAN; DRSG bactroban/ PER DL [employer] POLE [employer]W aqaucel ex -Primary Dressing Covered/Secured with Dry Gauze -Aquacel Extra 0 BLE -Multi-Layered Wrap Application Multi-Layer Multi-Layer Comp - Bilat ($ Comp - Bilat ($ ) ) Treatment Response Procedure Procedure Tolerated Well Tolerated Well Pain Scale: 0-10 Numeric Is Patient Pain Free? Yes Yes WC - Visit Discharge Discharge Condition Stable Stable Ambulatory Status Wheelchair Wheelchair Transportation ECF TRANSPORT ECF transport Facility Type [facility] Facility Other [facility] Orders Sent Yes Additional Wound Wound debrided: Right lower extremity (medial) Type of Debridement: Selective debridement Anesthesia Used: 5% Lidocaine Gel Depth: Down to and including healthy tissue Percentage of wound debrided: 100 Instrument Used: 5mm curette Tissue Removed: Devitalized tissue Severity: Limited To Skin Breakdown Amount of bleeding with debridement: Mild Bleeding Controlled with: Pressure Patient tolerated procedure: Patient tolerated procedure well Additional Wound Wound debrided: Right foot/medial ankle Type of Debridement: Selective debridement Anesthesia Used: 5% Lidocaine Gel Depth: Down to and including healthy tissue Percentage of wound debrided: 100 Instrument Used: 5mm curette Tissue Removed: Devitalized tissue Severity: Limited To Skin Breakdown Amount of bleeding with debridement: Mild Bleeding Controlled with: Pressure Patient tolerated procedure: Patient tolerated procedure well Additional Wound Wound debrided: Left Sinclair Type of Debridement: Selective debridement Anesthesia Used: 4% Lidocaine Solution Depth: Down to and including healthy tissue Instrument Used: 5mm curette Tissue Removed: Devitalized tissue Severity: Limited To Skin Breakdown Amount of bleeding with debridement: Mild Bleeding Controlled with: Pressure Patient tolerated procedure: Patient tolerated procedure well Assessment/Plan Assessment/Plan (1) Ulcer of left lower extremity with fat layer exposed: CODE(S): L97.922 - Non-pressure chronic ulcer of unspecified part of left lower leg with fat layer exposed (2) Ulcer of right lower extremity with fat layer exposed: CODE(S): L97.912 - Non-pressure chronic ulcer of unspecified part of right lower leg with fat layer exposed (3) Ulcer of right foot with fat layer exposed: CODE(S): L97.512 - Non-pressure chronic ulcer of other part of right foot with fat layer exposed (4) Venous insufficiency of both lower extremities: CODE(S): I87.2 - Venous insufficiency (chronic) (peripheral) (5) Borderline type 2 diabetes mellitus: CODE(S): R73.03 - Prediabetes (6) Lymphedema: CODE(S): I89.0 - Lymphedema, not elsewhere classified PLAN: Plan Debridement done as documented above, procedure was well-tolerated. Selective debridement done, minimal area left. Continue Aquacel, mupirocin and superabsorbent dressing to right and left leg ulcers. Continue mupirocin and Silvercel to the foot/medial ankle. 3M wraps for edema management. Change on Monday and Monday at the Facility. Elevate lower extremities when seated and in bed. Protein supplements twice daily. His questions were answered and he was advised to call with any further questions or concerns. Follow-up in 1 week. This note was generated with [employer] dictation software. It may contain incorrect words, spelling, and punctuation that were not noted in checking the note before signing.
[2023-02-09 10:30] VITALS: BP 119/55; PULSE 62; RESP 18; TEMP 36.3
--- NOTE | 2023-02-09 11:05 | PCM.WC.PN ---
History of Present Illness Date of Service: 02/09/23 Chief Complaint: Bilateral lower extremity ulcers History of Wound: Mr. Boles is an 82-year-old currently residing at [facility] who presents due to nonhealing bilateral lower extremity ulceration. Has been present for some months. Has had some dressing changes done at his facility without any significant improvement. 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 Not very active. Significant bilateral lower extremity edema. He denies chills, fever or feeling of unwell. He states that his appetite is good. Progress of Wound: No new concerns at this time. Healed. Has been using his compression pump daily. Objective Data Objective Data Vital Signs: Vital Signs Temp Pulse Resp BP 97.4 F L 62 18 119/55 L 02/09/23 10:30 02/09/23 10:30 02/09/23 10:30 02/09/23 10:30 Charges/Coding Visit Charges Office Visits / Consults: [id number] OV L3 Est Physical Exam Const alert, oriented x3 and no apparent distress General Appearance: cooperative, comfortable and well kempt HEENT normocephalic and head/scalp atraumatic Eyes EOMs intact bilaterally General Eye: normal appearance of both eyes Neck full ROM General: normal visual inspection Resp normal respiratory effort Effort and Inspection: able to speak in complete sentences Extremity General Extremity: edema Neuro oriented x3, CN's II-XII intact bilaterally, moves all extremities and no focal motor deficits Psych mental status grossly normal, thought process normal, cooperative and affect normal Debridement Note Debridement Note Post-Debridement Measurements and Additional Note: Post-Debridement Measurements/Treatment - Nurse 1 - General Ulcer Assessment Start: 02/02/23 10:00 Freq: Status: Active Protocol: WC.LOWBRUCET Activity Type Activity Date Activity User E-sign Co-sign Detail Recorded Client Recorded Date Recorded By Document 02/02/23 10:00 [place] [id number] 02/02/23 10:17 DL Document 02/09/23 10:30 EDDIE [id number] 02/09/23 10:37 EDDIE 02/02/23 02/09/23 10:00 10:30 - Today's Visit Information Type of service Follow-up Visit Follow-up Visit (Physician/TRAWL NET MAKER (Physician/TRAWL NET MAKER ) ) Arrival Mode Wheelchair Wheelchair Transfer Assistance Manual Manual Transfer Assist (Other) x2 x2 Patient Identification Verified (Name & Yes Yes ) Patient Requires Transmission-Based No Precautions Vital Signs Temperature (97.8 F-99.1 F) 974 F H 97.4 F L Temperature Source Temporal Temporal Pulse Rate (60-100) 71 62 Pulse Location Monitor Monitor Respiratory Rate (12-18) 20 H 18 Respiratory rate source Observation Observation Blood Pressure (90/60-120/80) 130/59 H 119/55 L Blood Pressure Mean (mm Hg) 82 76 Source Monitor Monitor Position Semi-Fowlers Blood Pressure Location Left Arm History Since Last Visit- (Skip if this is Patient's initial visit) Have you changed medications since your No No last visit? Any new allergies or adverse reactions No No Had a fall/change in ADL's that may No No increase risk of falls Signs or symptoms of abuse and/or No No neglect since last visit Have you been in the hospital since your No No last visit? Has dressing in place as prescribed Yes Yes Has compression in place as prescribed Yes Yes Has offloadiing in place as prescribed N/A N/A Experienced any changes in pain level or No No management Left Footwear Regular Shoe Right Footwear Regular Shoe Pain Scale: 0-10 Numeric Is Patient Pain Free? Yes Yes WC - Nurse 1 - General Ulcer Measurement Start: 02/02/23 10:00 Freq: Status: Active Protocol: Activity Type Activity Date Activity User E-sign Co-sign Detail Recorded Client Recorded Date Recorded By Document 02/02/23 10:00 DL [id number] 02/02/23 10:17 DL Document 02/09/23 10:30 [id number] 02/09/23 10:37 02/02/23 02/09/23 10:00 10:30 Wound Center Nurse 1 #9 Left sinclair -Current Size (cm) - Length 0 -Current Size (cm) - Width 0 -Current Size (cm) - Depth 0 -Total Square Cm 0 -Photo Taken Yes -Exudate Amt None Present -Wound Margin Flat & Intact -Granulation Amt Large (67-100%) -Granulation Quality [place] -Necrosis Amt None Present (0 %) -Structure Exposed N/A -Texture ([place]-wound Skin Appearance) Scarring -Moisture ([place]-wound Skin Appearance) Dry/Scaly -Color ([place]-wound Skin Appearance) Hemosiderin Staining -Temperature ([place]-wound Skin No Abnormality Appearance) (Pt Warm) -Tenderness on Palpation ([place]-wound No Skin Appearance) -Ulcer Cleansing Soap and Water -Foul Odor after Cleansing No #8- RLE/ANKLE -Combined with other wound No -Current Size (cm) - Length 0.1 0 -Current Size (cm) - Width 0.1 0 -Current Size (cm) - Depth 0.1 0 -Total Square Cm 0.01 0 -Photo Taken Yes Yes -Epithelialization Large 67-100% -Exudate Amt None Present -Wound Margin Thickened -Granulation Amt Large (67-100%) -Granulation Quality Pale,[place] -Necrosis Amt None Present (0 %) -Structure Exposed N/A -Texture ([place]-wound Skin Appearance) Scarring -Moisture ([place]-wound Skin Appearance) Dry/Scaly -Color ([place]-wound Skin Appearance) Hemosiderin Staining -Temperature ([place]-wound Skin No Abnormality Appearance) (Pt Warm) -Tenderness on Palpation ([place]-wound No Skin Appearance) -Ulcer Cleansing Soap and Water -Foul Odor after Cleansing No -Anesthetic Used 5% Lidocaine Gel #7 right medial sinclair -Combined with other wound No -Current Size (cm) - Length 0.1 0 -Current Size (cm) - Width 0.1 0 -Current Size (cm) - Depth 0.1 0 -Total Square Cm 0.01 0 -Photo Taken Yes Yes -Epithelialization Large 67-100% -Exudate Amt None Present -Wound Margin Thickened -Granulation Amt Small (1-33%) -Granulation Quality [place] -Necrosis Amt Small (1-33%) -Necrotic Tissue Type Adherent Slough -Structure Exposed N/A -Texture ([place]-wound Skin Appearance) Scarring -Moisture ([place]-wound Skin Appearance) Dry/Scaly -Color ([place]-wound Skin Appearance) Hemosiderin Staining -Temperature ([place]-wound Skin No Abnormality Appearance) (Pt Warm) -Tenderness on Palpation ([place]-wound No Skin Appearance) -Ulcer Cleansing Soap and Water -Foul Odor after Cleansing No -Anesthetic Used 5% Lidocaine Gel #6 right lateral sinclair -Combined with other wound No -Current Size (cm) - Length 0.1 0 -Current Size (cm) - Width 0.1 0 -Current Size (cm) - Depth 0.1 0 -Total Square Cm 0.01 0 -Photo Taken Yes Yes -Epithelialization Large 67-100% -Exudate Amt None Present -Wound Margin Thickened -Granulation Amt Large (67-100%) -Granulation Quality [place] -Necrosis Amt Small (1-33%) -Necrotic Tissue Type Adherent Slough -Structure Exposed N/A -Texture ([place]-wound Skin Appearance) Scarring -Moisture ([place]-wound Skin Appearance) Dry/Scaly -Color ([place]-wound Skin Appearance) Hemosiderin Staining -Temperature ([place]-wound Skin No Abnormality Appearance) (Pt Warm) -Tenderness on Palpation ([place]-wound No Skin Appearance) -Ulcer Cleansing Soap and Water -Foul Odor after Cleansing No -Anesthetic Used 5% Lidocaine Gel Lower Limb Edema Present Yes Right Calf (cm) 47 50.8 Right Ankle (cm) 30.9 33 Left Calf (cm) 53.5 46 Left Ankle (cm) 34.2 36 WC - Nurse 2 - General Ulcer CM Notes Start: 02/02/23 10:00 Freq: Status: Active Protocol: Activity Type Activity Date Activity User E-sign Co-sign Detail Recorded Client Recorded Date Recorded By Document 02/02/23 11:03 MW [id number] 02/02/23 11:14 MW Document 02/09/23 10:49 MW Desktop 02/09/23 10:51 MW 02/02/23 02/09/23 11:03 10:49 Wound Center Nurse 2 #9 Left sinclair -Time 11:04 -Correct Patient Yes -Correct Side, Site, Position Yes -Correct Procedure Yes -Procedure Performed No -Post Debridement (cm) - Length 0 -Post Debridement (cm) - Width 0 -Post Debridement (cm) - Depth 0 -Total Square (Post) (cm) 0 -Tunneling No -Undermining/Tunneling No -Circular Undermining No -Wound/Ulcer Outcome Healed- Epithelialized #8- RLE/ANKLE -Time 11:06 10:49 -Correct Patient Yes Yes -Correct Side, Site, Position Yes Yes -Correct Procedure Yes Yes -Procedure Performed No No -Post Debridement (cm) - Length 0.1 0 -Post Debridement (cm) - Width 0.1 0 -Post Debridement (cm) - Depth 0.1 0 -Total Square (Post) (cm) 0.01 0 -Tunneling No -Undermining/Tunneling No -Circular Undermining No -Wound/Ulcer Outcome Not Healed -Ulcer Cleansing Rinsed/ Irrigated with Saline -Foul Odor after Cleansing No -Bioengineered Tissue No -Bleeding Controlled with NA -Offloading No #7 right medial sinclair -Time 11:08 10:49 -Correct Patient Yes Yes -Correct Side, Site, Position Yes Yes -Correct Procedure Yes Yes -Procedure Performed Yes No -Type of Procedure Debridement -Clinical Debridement Subcutaneous -Tissue Removed Subcutaneous -Post Debridement (cm) - Length 0.1 0 -Post Debridement (cm) - Width 0.1 0 -Post Debridement (cm) - Depth 0.1 0 -Total Square (Post) (cm) 0.01 0 -Area of Debridement (cm) - Length 0.1 -Area of Debridement (cm) - Width 0.1 -Total Square (Area) (cm) 0.01 -Tunneling No -Undermining/Tunneling No -Circular Undermining No -Wound/Ulcer Outcome Not Healed Healed- Epithelialized -Ulcer Cleansing Rinsed/ Irrigated with Saline -Foul Odor after Cleansing No -Bioengineered Tissue No -Bleeding Controlled with Pressure -Treatment Response Procedure Tolerated Well -Offloading No -Debridement - Subq, 1st 20sq cm Yes #6 right lateral sinclair -Time 11:09 10:49 -Correct Patient Yes Yes -Correct Side, Site, Position Yes Yes -Correct Procedure Yes Yes -Procedure Performed Yes No -Type of Procedure Debridement -Clinical Debridement Subcutaneous -Tissue Removed Subcutaneous -Post Debridement (cm) - Length 0.1 0 -Post Debridement (cm) - Width 0.1 0 -Post Debridement (cm) - Depth 0.1 0 -Total Square (Post) (cm) 0.01 0 -Area of Debridement (cm) - Length 0.1 -Area of Debridement (cm) - Width 0.1 -Total Square (Area) (cm) 0.01 -Tunneling No -Undermining/Tunneling No -Circular Undermining No -Wound/Ulcer Outcome Not Healed Healed- Epithelialized -Ulcer Cleansing Rinsed/ Irrigated with Saline -Foul Odor after Cleansing No -Bioengineered Tissue No -Bleeding Controlled with Pressure -Treatment Response Procedure Tolerated Well -Offloading No -Debridement - Subq, 1st 20sq cm No Pain Scale: 0-10 Numeric Is Patient Pain Free? Yes Yes WC - Nurse 3 - General Ulcer D/C NN Start: 02/02/23 10:00 Freq: Status: Active Protocol: Activity Type Activity Date Activity User E-sign Co-sign Detail Recorded Client Recorded Date Recorded By Document 02/02/23 11:27 [facility] [id number] 02/02/23 11:28 [facility] Document 02/02/23 11:46 [id number] 02/02/23 11:50 DL 02/02/23 02/02/23 11:27 11:46 Wound Care Center Nurse 3 #8- RLE/ANKLE -Ulcer Cleansing Rinsed/ Rinsed/ Irrigated with Irrigated with Saline Saline -Foul Odor after Cleansing No No -Primary Dressing Applied Silvercel Silvercel -Other Dressing BACTROBAN; DRSG bactroban PER DL RN OFFICE -Primary Dressing Covered/Secured with Dry Gauze -Other Covering ABD -Silvercel 1 1 #7 right medial sinclair -Ulcer Cleansing Rinsed/ Rinsed/ Irrigated with Irrigated with Saline Saline -Foul Odor after Cleansing No No -Primary Dressing Applied Aquacel Extra Aquacel Extra -Other Dressing BACTROBAN; DRSG bactroban PER DL RN OFFICE -Primary Dressing Covered/Secured with Dry Gauze -Aquacel Extra 1 1 #6 right lateral sinclair -Ulcer Cleansing Rinsed/ Rinsed/ Irrigated with Irrigated with Saline Saline -Foul Odor after Cleansing No No -Primary Dressing Applied Aquacel Extra -Other Dressing BACTROBAN; DRSG bactroban/ PER DL RN OFFICE aqaucel ex -Primary Dressing Covered/Secured with Dry Gauze -Aquacel Extra 0 BLE -Multi-Layered Wrap Application Multi-Layer Multi-Layer Comp - Bilat ($ Comp - Bilat ($ ) ) Treatment Response Procedure Procedure Tolerated Well Tolerated Well Pain Scale: 0-10 Numeric Is Patient Pain Free? Yes Yes - Visit Discharge Discharge Condition Stable Stable Ambulatory Status Wheelchair Wheelchair Transportation ECF TRANSPORT ECF transport Facility Type [facility] Facility Other [facility] Orders Sent Yes Assessment/Plan Assessment/Plan (1) Ulcer of left lower extremity with fat layer exposed: CODE(S): L97.922 - Non-pressure chronic ulcer of unspecified part of left lower leg with fat layer exposed (2) Ulcer of right lower extremity with fat layer exposed: CODE(S): L97.912 - Non-pressure chronic ulcer of unspecified part of right lower leg with fat layer exposed (3) Ulcer of right foot with fat layer exposed: CODE(S): L97.512 - Non-pressure chronic ulcer of other part of right foot with fat layer exposed (4) Venous insufficiency of both lower extremities: CODE(S): I87.2 - Venous insufficiency (chronic) (peripheral) (5) Borderline type 2 diabetes mellitus: CODE(S): R73.03 - Prediabetes (6) Lymphedema: CODE(S): I89.0 - Lymphedema, not elsewhere classified PLAN: Plan No new concerns at this time. Healed. No debridement completed. Double layer Tubigrip for edema management. He was advised to continue use of his compression pump consistently, he voiced understanding. Elevate lower extremities when seated and in bed. His questions were answered and he was advised to call with any further questions or concerns. Discharge from the wound center. This note was generated with [employer] software. It may contain incorrect words, spelling, and punctuation that were not noted in checking the note before signing.
== END 2023-02-09 11:29 | disposition home or self-care (01) ==
LOC: WC 10:15
PROVIDERS: PCP Internal Medicine; Visit Provider Internal Medicine
DX: Z09 Encounter for follow-up examination after completed treatment for conditions other than malignant neoplasm (principal); R60.0 Localized edema; I87.2 Venous insufficiency (chronic) (peripheral); R73.03 Prediabetes; I89.0 Lymphedema, not elsewhere classified
CPT/HCPCS: 11042; 29581; 99213; G0463

== ENCOUNTER 2023-02-12 08:22 | Observation (INO) | payer MEDICARE, MEDICAID, SELFPAY ==
[2023-02-12 08:27] VITALS: BP 120/61; PULSE 94; RESP 18; TEMP 37.8; O2SAT 90; BMI 32.3
[2023-02-12 08:38] VITALS: BP 120/61; PULSE 94; RESP 18; TEMP 37.8; O2SAT 93
--- NOTE | 2023-02-12 08:44 | VDLE_ITS ---
Reason For Study: Right leg swelling and pain RIGHT GSV is normal. CFV is compressible, spontaneous, phasic, competent and demonstrates normal augmentation. FV is compressible, spontaneous, phasic, competent and demonstrates normal augmentation. POP V is compressible, spontaneous, phasic, competent and demonstrates normal augmentation. T/P Trunk is compressible. PTV is compressible. RT PerV is compressible. Procedure This is a venous duplex using B-mode, color flow and spectral Doppler. Exam performed in department. Techically difficult to visualize calf veins due to edema and wounds. A preliminary report was called and/or faxed to Dr. Rojo. VL/Venous Duplex US, Unilateral Interpretation Summary Deep veins of the right lower extremity are patent and compressible segmentally . There is no evidence of right lower extremity deep vein thrombosis. The right great sapheno us vein appears patent and compressible segmentally. Ordering Physician: Alfredo Rojo Referring Physician: Lam Huffman M.D. Performed By: Fany Rodríguez RVT
--- NOTE | 2023-02-12 08:45 | EX.ED.DYSGE1 ---
HPI History of Present Illness Chief Complaint: Edema Informant: patient, EMS and SNF Narrative Narrative: Patient sent from detention due to pain, swelling, redness in the right lower extremity for unknown period of time but significantly worse overnight. Has a known history of bilateral lower extremity venous insufficiency. In detention primarily for Parkinson's we think. Fever here but none noted by residential facility. They did the note that his slow speech is normal for him. The patient is able to answer yes and no but not able to carry on a conversation; we were able to perform a limited review of systems based on this, and he does state that his right leg is painful more so than his left one, but both of them are chronically sore. He denies any other symptoms right now. I reviewed his medications as well as the detention paperwork that was sent, which provides limited information but does state he is a full code, is on aspirin and clopidogrel, and no anticoagulants. He has a cardiac stent. 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 Bilateral edema of lower extremity Bilateral hearing loss Blind right eye Borderline type 2 diabetes mellitus BPH (benign prostatic hyperplasia) Cellulitis Chronic ulcer of right foot with fat layer exposed Constipation History of non-ST elevation myocardial infarction (NSTEMI) (11/12/18) HTN (hypertension) Hyperlipidemia Lymphedema Osteoarthritis of lumbar spine Physical debility PSA elevation Renal cyst Ulcer of left lower extremity with fat layer exposed Ulcer of right foot with fat layer exposed Ulcer of right lower extremity with fat layer exposed Venous insufficiency Venous insufficiency of both lower extremities Home Medications aspirin 81 mg tablet,delayed release 81 mg PO DAILY@0800 11/13/18 [Rx Last Taken 02/11/23] potassium chloride 20 mEq tablet,extended release(part/cryst) See Rx Instructions .Route .COMPLEX health maintenance 05/04/21 [History Last Taken 02/11/23] atorvastatin 40 mg tablet 80 mg PO QHS 08/07/21 [History Last Taken 02/11/23] clopidogrel 75 mg tablet (Plavix) 75 mg PO QHS 08/07/21 [History Last Taken 02/11/23] bisacodyl 10 mg rectal suppository 10 mg LA DAILY PRN Constipation 11/07/21 [History Last Taken Unknown] glycerin (adult) (Fleet Glycerin (Adult) rectal suppository) 1 supp LA DAILY PRN Constipation 11/07/21 [History Last Taken Unknown] guaifenesin 600 mg tablet, extended release 12 hr (Mucinex) 600 mg PO Q12H PRN Cough 01/21/23 [History Last Taken Unknown] acetaminophen 325 mg tablet 650 mg PO Q6H PRN PRN Pain 1-10 Or Fever>100.7 #0 tabs 01/25/23 [Rx Last Taken Unknown] furosemide 40 mg tablet 40 mg PO DAILY #0 tabs 01/25/23 [Rx Last Taken Unknown] sennosides 8.6 mg-docusate sodium 50 mg tablet (Stool Softener-Stimulant Laxative) 2 tab PO BID #0 tabs 01/25/23 [Rx Last Taken 02/11/23] carbidopa 25 mg-levodopa 100 mg tablet 1 tab PO TID PARKINSONS 02/12/23 [History Last Taken 02/11/23] mupirocin 2 % topical ointment 1 applic topical QPM WOUND CARE 02/12/23 [History Last Taken 02/07/23] polyethylene glycol 3350 17 gram oral powder packet 17 g PO DAILY CONSTIPATION 02/12/23 [History Last Taken 02/11/23] Allergy/AdvReac Type Severity Reaction Status Date / Time lemon Allergy Intermediate blisters Verified 02/12/23 08:38 on hands [place] Allergy Intermediate blisters Verified 02/12/23 08:38 on hands strawberry Allergy Intermediate blisters Verified 02/12/23 08:38 on hands Family History Other Diabetes Surgical History Stented coronary artery (11/12/18) Social History Smoking Status: Former smoker ROS ROS ED Constitutional Constitutional ED: Denies chills or sweats Eyes Eyes: Denies change in vision or diplopia ENT ENT ED: Denies rhinorrhea or sore throat Cardiovascular Cardiovascular: Denies chest pain Respiratory/Chest Respiratory/Chest: Denies cough or dyspnea Gastrointestinal Gastrointestinal: Denies abdominal pain, nausea or vomiting Musculoskeletal Musculoskeletal: Reports as per HPI, extremity pain and other Details: BLE swelling, worse on R ; Denies back pain or neck pain Integumentary Denies abscess or rash Neurologic Neurologic: Denies headache(s), paresthesias or weakness EXAM Physical Exam Const Vital Signs: 02/12/23 08:27 02/12/23 08:34 02/12/23 08:38 Temperature 100.1 F H 100.1 F H Temperature Source Oral Oral Pulse Rate 94 94 Respiratory Rate 18 18 Respiratory Effort Normal Non-Labored Respiratory Pattern Normal Blood Pressure 120/61 120/61 Blood Pressure Mean 80 80 Pulse Ox 90 93 Oxygen Delivery Method Room Air Room Air 02/12/23 10:00 02/12/23 10:02 Temperature 99.3 F H Temperature Source Oral Pulse Rate 96 Respiratory Rate 20 H Respiratory Effort Respiratory Pattern Blood Pressure 123/71 H Blood Pressure Mean 88 Pulse Ox 96 Oxygen Delivery Method Room Air Room Air Positive well nourished and well developed General Appearance ED: well developed and NAD HEENT Reports moist mucous membranes normocephalic and atraumatic Eyes PERRL and EOMs intact bilaterally Neck full ROM and supple Resp normal respiratory effort and clear to auscultation bilaterally Cardio regular rate, regular rhythm and no murmurs Rate: Negative for tachycardic GI non-tender and non-distended Auscultation: normoactive bowel sounds Palpation: soft Back/Spine no CVA tenderness General Back: other FROM Extremity Extremity Narrative: Right lower leg is diffusely erythematous does not seem to be focal, it is stocking glove distribution, and diffusely tender but mostly anteriorly. There is 1 very superficial ulcerative wound that is less than a centimeter in diameter about midway up anteriorly. The redness goes up to the proximal lower leg but does not involve the knee or go further. The thigh appears normal. Both lower extremities displays some dark discoloration distally consistent with chronic stasis dermatitis. There is some scaly superficial skin in the right lower leg, there is no subcutaneous emphysema, he can move the knee and the ankle, but he moves both lower extremities in a limited fashion due to appearing generally weak. General Extremety ED: Yes edema and tenderness; Negative for pulses abnormal General Extremity: edema bilateral lower extremity Details: severe (Much worse on the right with asymmetry compared with the left); Negative for pulses abnormal Neuro CN's II-XII intact bilaterally and no sensory deficits noted Neuro Narrative: Symmetric generalized weakness, nonfocal neurologic exam. Slow speech but alert, limited conversation. Sensorium / Orientation: awake and alert Motor Exam: general weakness Skin Skin Narrative: Right lower leg redness, swelling, tenderness, without abscess or focal induration, severe lymphedema to both lower extremities limits exam somewhat, the foot and knee and areas proximal do not appear to be erythematous or tender. MDM MDM MDM Narrative Medical decision making narrative: Duplex ultrasound of the right lower extremity was obtained and negative for DVT, supporting diagnosis of cellulitis, which is my suspicion clinically. Tib-fib x-rays 2 views of my interpretation showed no subcutaneous gas formation in the right lower leg. The rest of his labs support cellulitis. He has a white blood count of 23, he has a lactate that is 3.7, he has acute kidney injury but his creatinine is not over 2, with regards to sepsis he meets SIRS criteria for sepsis, but he does not meet sofa criteria. He is not in septic shock, his blood pressure and heart rate have remained normal, his temperature was low-grade to 100.1 and is coming down with Tylenol, and there is no indication for acute fluid resuscitation right now. We are monitoring his blood pressure closely. Plan is for admission. Empiric Unasyn given. History & Record Review Additional record(s) reviewed:: Prior labs Lab Data Attestation: I reviewed the patient's lab results. Labs: Laboratory Results - last 24 hr 02/12/23 02/12/23 02/12/23 09:06 09:06 09:06 WBC 22.9 H RBC 4.52 L Hgb 12.0 L Hct 38.5 L MCV 85.2 MCH 26.5 L MCHC 31.2 L RDW Std Deviation 50.6 H RDW Coeff of Donnie 16.4 H Plt Count 217 MPV 9.9 Immature Gran % (Auto) 2.100 H Neut % (Auto) 91.5 H Lymph % (Auto) 3.1 L [place] % (Auto) 2.9 Eos % (Auto) 0.0 Baso % (Auto) 0.4 Absolute Neuts (auto) 20.9 H Absolute Lymphs (auto) 0.70 L Nucleated RBC % 0 PT 14.9 INR 1.2 APTT 31.4 Sodium 141 Potassium 3.9 Chloride 107 Carbon Dioxide 25.0 Anion Gap 9 BUN 26 H Creatinine 1.49 H Estim Creat Clear Calc 45.21 Est GFR (MDRD) Af Amer 58 L Est GFR (MDRD) Non-Af 48 L BUN/Creatinine Ratio 17.4 Glucose 86 Lactic Acid Calcium 9.2 Total Bilirubin 0.60 AST 95 H ALT 20 Alkaline Phosphatase 76 Total Protein 7.9 Albumin 3.3 Globulin 4.6 H Albumin/Globulin Ratio 0.7 L 02/12/23 09:06 WBC RBC Hgb Hct MCV MCH MCHC RDW Std Deviation RDW Coeff of Donnie Plt Count MPV Immature Gran % (Auto) Neut % (Auto) Lymph % (Auto) [place] % (Auto) Eos % (Auto) Baso % (Auto) Absolute Neuts (auto) Absolute Lymphs (auto) Nucleated RBC % PT INR APTT Sodium Potassium Chloride Carbon Dioxide Anion Gap BUN Creatinine Estim Creat Clear Calc Est GFR (MDRD) Af Amer Est GFR (MDRD) Non-Af BUN/Creatinine Ratio Glucose Lactic Acid 3.7 H* Calcium Total Bilirubin AST ALT Alkaline Phosphatase Total Protein Albumin Globulin Albumin/Globulin Ratio Management Discussion w/another healthcare provider: Hospitalist (Lexie) Discharge Plan Dx/Rx/DC Orders Clinical Impression: Cellulitis of right lower leg, Venous insufficiency of both lower extremities, Acute kidney injury Disposition Disposition: Acute Care Hospital [facility]
[2023-02-12 09:14] LABS: Absolute Neutrophil Count 20.9 X10^3/uL (2.0-7.7); Basophil% 0.4 % (0-1); Hematocrit 38.5 % (40-54); Lymphocyte % 3.1 % (19-41); Mean Corp Hgb Conc 31.2 g/dL (32-36); Mean Corpuscular Hgb 26.5 pg (27.0-32.0); Mean Corpuscular Volume 85.2 fL (80-94); Mean Platelet Vol. 9.9 fl (6.2-12.0); Monocyte# 0.66 X10^3/uL; Monocyte% 2.9 % (0-10); NRBC Flagged by Analyzer 0 % (0-5); Neutrophil # 20.94 X10^3/uL (2.7-7.7); Neutrophil % 91.5 % (47-70); POSITIVE DIFFERENTIAL YES; POSITIVE MORPHOLOGY YES; Platelet Count 217 K/mm3 (150-450); RBC Distribution Width CV 16.4 % (11.6-14.6); RBC Distribution Width SD 50.6 fl (35.1-43.9); Red Blood Count 4.52 M/mm3 (4.6-6.2); White Blood Count 22.9 K/mm3 (4.4-11.0)
[2023-02-12 09:16] LABS: Differential Indicated SCAN CRITERIA MET
[2023-02-12 09:23] LABS: International Normalized Ratio 1.2; Prothrombin Time (Protime)PT. 14.9 SECONDS (11.7-14.9)
[2023-02-12 09:24] LABS: Partial Thromboplast Time 31.4 Seconds (24.1-36.2)
[2023-02-12 09:32] LABS: ALB/GLOB Ratio 0.7 RATIO (0.9-2.4); AST(SGOT) 95 U/L (15-37); Alanine Aminotransfer ALT/SGPT 20 U/L (16-61); Albumin, Serum 3.3 g/dL (3.2-5.0); Alkaline Phosphatase 76 U/L (45-117); Anion Gap 9 (5-15); BUN 26 mg/dL (7-18); BUN/Creat Ratio 17.4 RATIO (10-20); Calcium,Total 9.2 mg/dL (8.5-10.1); Chloride 107 mmol/L (98-107); Creatinine, Serum 1.49 mg/dL (0.70-1.30); EST Glomerular Filtration Rate 48 mL/min (>60); Est Glom Filt Rate - Afr Amer 58 mL/min (>60); Estimated Creatinine Clearance 45.21 ml/min; Globulin 4.6 g/dL (2.2-4.2); Glucose 86 mg/dL (74-106); Potassium 3.9 mmol/L (3.5-5.1); Protein, Total 7.9 g/dL (6.4-8.2); Sodium Level 141 mmol/L (136-145)
[2023-02-12 09:47] LABS: Lactic Acid 3.7 mmol/L (0.4-1.9)
[2023-02-12] MEDS: Acetaminophen 500 MG Tablet 1000 MG PO (09:58)
[2023-02-12 10:02] VITALS: BP 123/71; PULSE 96; RESP 20; TEMP 37.4; O2SAT 96
--- NOTE | 2023-02-12 10:19 | RAD_ITS ---
INDICATION: pain/suspect infection EXAMINATION/TECHNIQUE: X-RAY - RIGHT XR Tibia/Fibula 2 Views 4 VIEWS COMPARISON: FINDINGS: SOFT TISSUES: There are vascular calcifications. There is diffuse subcutaneous edema. No radiopaque foreign body. BONES/JOINTS: No acute fracture or subluxation.. Normal alignment. There are degenerative changes of the knee and visualized mid and hindfoot. There is a plantar calcaneal enthesophyte. There is an additional enthesophyte arising from the posterior calcaneus at the Achilles tendon insertion site. No sclerotic or destructive changes observed. RAD/Tibia & Fibula 2 Views IMPRESSION: Degenerative changes. Atherosclerosis. Subcutaneous edema. Electronically Signed: Edwina Conde MD at 10:50 EDT ,
--- NOTE | 2023-02-12 10:29 | HP.PCM.HOS_ITS ---
HPI - General General Date of Admission: 02/12/23 Date of Service: 02/12/23 Chief Complaint: worsening edema of lower extremities HPI Narrative RADHA ZAMBRANO, is a 83 M with a PMH as outlined who presents via the ED on 02/12/2023 from his SNF with a complaint of worsening lower extremity edema. He has had pain, redness and swelling of his lower extremities which has been worsening. It worsened acutely overnight. He didnt have any fever in the SNF, but in the ED was febrile. He denied any nausea, vomiting, chest pain, palpitations or any other symptoms. Review fo systems was otherwise negative. He hasnt had any trauma to his legs. Vital s in the ED were BP of 123/71, pulse rate of 96, respirate rate of 20 and temperature of 99.3 Fahrenheit. He was saturating at 96% on room air. CBC showed hemoglobin of 12 with WBC of 22.9. INR is 1.2. Chemistry shows sodium of 141 with bicarb of 25 and creatinine of 1.49. Lactic acid is 3.7. X-ray of the tibia left fibula showed no evidence of fracture or gas in the subcutaneous tissue. He has been admitted to be managed for cellulitis of the left lower extremity. [facility] Medical History Abnormality of gait Anemia Atherosclerotic heart disease of [place] coronary artery without angina pectoris Benign neoplasm of colon Bilateral edema of lower extremity Bilateral hearing loss Blind right eye Borderline type 2 diabetes mellitus BPH (benign prostatic hyperplasia) Cellulitis Chronic ulcer of right foot with fat layer exposed Constipation History of non-ST elevation myocardial infarction (NSTEMI) (11/12/18) HTN (hypertension) Hyperlipidemia Lymphedema Osteoarthritis of lumbar spine Physical debility PSA elevation Renal cyst Ulcer of left lower extremity with fat layer exposed Ulcer of right foot with fat layer exposed Ulcer of right lower extremity with fat layer exposed Venous insufficiency Venous insufficiency of both lower extremities Home Medications aspirin 81 mg tablet,delayed release 81 mg PO DAILY@0800 11/13/18 [Rx Last Taken 02/11/23] potassium chloride 20 mEq tablet,extended release(part/cryst) See Rx Instructions .Route .COMPLEX health maintenance 05/04/21 [History Last Taken 02/11/23] atorvastatin 40 mg tablet 80 mg PO QHS 08/07/21 [History Last Taken 02/11/23] clopidogrel 75 mg tablet (Plavix) 75 mg PO QHS 08/07/21 [History Last Taken 02/11/23] bisacodyl 10 mg rectal suppository 10 mg MD DAILY PRN Constipation 11/07/21 [History Last Taken Unknown] glycerin (adult) (Fleet Glycerin (Adult) rectal suppository) 1 supp MD DAILY PRN Constipation 11/07/21 [History Last Taken Unknown] guaifenesin 600 mg tablet, extended release 12 hr (Mucinex) 600 mg PO Q12H PRN Cough 01/21/23 [History Last Taken Unknown] acetaminophen 325 mg tablet 650 mg PO Q6H PRN PRN Pain 1-10 Or Fever>100.7 #0 tabs 01/25/23 [Rx Last Taken Unknown] furosemide 40 mg tablet 40 mg PO DAILY #0 tabs 01/25/23 [Rx Last Taken Unknown] sennosides 8.6 mg-docusate sodium 50 mg tablet (Stool Softener-Stimulant Laxative) 2 tab PO BID #0 tabs 01/25/23 [Rx Last Taken 02/11/23] carbidopa 25 mg-levodopa 100 mg tablet 1 tab PO TID PARKINSONS 02/12/23 [History Last Taken 02/11/23] mupirocin 2 % topical ointment 1 applic topical QPM WOUND CARE 02/12/23 [History Last Taken 02/07/23] polyethylene glycol 3350 17 gram oral powder packet 17 g PO DAILY CONSTIPATION 02/12/23 [History Last Taken 02/11/23] Allergy/AdvReac Type Severity Reaction Status Date / Time lemon Allergy Intermediate blisters Verified 02/12/23 08:38 on hands [place] Allergy Intermediate blisters Verified 02/12/23 08:38 on hands strawberry Allergy Intermediate blisters Verified 02/12/23 08:38 on hands Family History Other Diabetes Surgical History Stented coronary artery (11/12/18) Social History Smoking Status: Former smoker ROS Constitutional Constitutional: Reports fatigue, malaise and weakness; Denies anorexia, chills or fever(s) Eyes Eyes: Denies change in vision ENT HEENT: Denies dysphagia, headache(s) or sore throat Cardiovascular Cardiovascular: Denies chest pain, dyspnea on exertion, edema, lightheadedness, orthopnea, palpitations, rapid heart rate or syncope Gastrointestinal Gastrointestinal: Denies abdominal pain, nausea or vomiting Genitourinary Genitourinary: Denies burning urination or dysuria Musculoskeletal Musculoskeletal: Reports joint pain; Denies arthralgias Neurologic Neurologic: Denies confusion, dizziness or headache(s) Psychiatric Psychiatric: Denies anxiety or depression Vital Signs Vital Signs Vital Signs: 02/12/23 08:27 02/12/23 08:34 02/12/23 08:38 Temperature 100.1 F H 100.1 F H Temperature Source Oral Oral Pulse Rate 94 94 Respiratory Rate 18 18 Respiratory Effort Normal Non-Labored Respiratory Pattern Normal Blood Pressure 120/61 120/61 Blood Pressure Mean 80 80 Pulse Ox 90 93 Oxygen Delivery Method Room Air Room Air 02/12/23 10:00 02/12/23 10:02 Temperature 99.3 F H Temperature Source Oral Pulse Rate 96 Respiratory Rate 20 H Respiratory Effort Respiratory Pattern Blood Pressure 123/71 H Blood Pressure Mean 88 Pulse Ox 96 Oxygen Delivery Method Room Air Room Air Weight Weight: 252 lb 6.868 oz Body Mass Index (BMI) 32.3 Physical Exam Const alert, oriented x3 and no apparent distress General Appearance: cooperative Orientation / Consciousness: lethargic HEENT normocephalic and head/scalp atraumatic HEENT Narrative: dry oral mucosa Eyes PERRL, EOMs intact bilaterally and conjunctivae normal Neck no lymphadenopathy, supple and no JVD Resp Resp Narrative: diminished breath sounds bibasally, no wheezes or crackles. Cardio regular rate, regular rhythm, S1 normal heart sound, S2 normal heart sound and no murmurs GI normal to inspection, nondistended, normoactive bowel sounds, soft to palpation, non-tender and non-distended Extremity Extremity Narrative: marked edema of both lower extremities. LLE in compression turbogrips. RLE is markedly edematous, with superficial excoriations; skin is dry and flaky. Neuro oriented x3, CN's II-XII intact bilaterally, moves all extremities and no focal motor deficits Sensorium / Orientation: awake and alert Motor Exam: strength 5/5 throughout Psych Psych Narrative: lethargic Results Lab / Micro Data Result Diagrams: 02/12/23 09:06 02/12/23 09:06 Labs: Laboratory Results - last 24 hr 02/12/23 09:06: WBC 22.9 H, RBC 4.52 L, Hgb 12.0 L, Hct 38.5 L, MCV 85.2, MCH 26.5 L, MCHC 31.2 L, RDW Std Deviation 50.6 H, RDW Coeff of Donnie 16.4 H, Plt Count 217, MPV 9.9, Immature Gran % (Auto) 2.100 H, Neut % (Auto) 91.5 H, Lymph % (Auto) 3.1 L, [place] % (Auto) 2.9, Eos % (Auto) 0.0, Baso % (Auto) 0.4, Absolute Neuts (auto) 20.9 H, Absolute Lymphs (auto) 0.70 L, Nucleated RBC % 0 02/12/23 09:06: PT 14.9, INR 1.2, APTT 31.4 02/12/23 09:06: Sodium 141, Potassium 3.9, Chloride 107, Carbon Dioxide 25.0, Anion Gap 9, BUN 26 H, Creatinine 1.49 H, Estim Creat Clear Calc 45.21, Est GFR (MDRD) Af Amer 58 L, Est GFR (MDRD) Non-Af 48 L, BUN/Creatinine Ratio 17.4, Glucose 86, Calcium 9.2, Total Bilirubin 0.60, AST 95 H, ALT 20, Alkaline Phosphatase 76, Total Protein 7.9, Albumin 3.3, Globulin 4.6 H, Albumin/Globulin Ratio 0.7 L 02/12/23 09:06: Lactic Acid 3.7 H* Assessment & Plan Assessment/Plan (1) Cellulitis of right lower leg: (2) Acute kidney injury: PLAN: Plan #Cellulitis of the RLE * admit to med surg * has chronic lymphedema of both lower extremities. Had been following up with the wound center. His right lower extremity noted to be more swollen and erythematous and very painful. * Duplex of the right lower extremity was negative for any evidence of DVT. * Started on IV Zosyn. Get blood and wound cultures. * Wound care consulted. Hydrate gently with IV fluids. * WBC markedly elevated at 22.9 * #Lactic acidosis: Likely due to acute cellulitis. Should improve with hydration. * * #ADRIAN: Creatinine is 1.49 with a baseline creatinine of 0.97. Should improve with hydration. #Hyperlipidemia: On statin #Parkinson's disease: On levodopa carbidopa #CAD: On aspirin and high intensity statin DVT prophylaxis: Lovenox CODE STATUS: Full code * Patient counseled extensively about different types of CODE STATUS including full code, DNR CCA and DNR CCA. Patient elects to be full code. He also has paperwork from the SNF which confirms he is full code * Total [id number] time 16 minutes. Charges/Coding Visit Charges Inpatient E&M: 31338 Init Hosp L3 Procedures Hospitalists Procedures: 43063 Advncd Care Plan 30 Min
[2023-02-12 10:43] VITALS: BP 118/52; PULSE 91; RESP 20; TEMP 37.4; O2SAT 94
[2023-02-12 10:58] LABS: Bacteria 0 SEEN /hpf (None Seen); Color, Urine Yellow (Yellow); Glucose, Dipstick Normal (Normal); Ketone-Dipstick 5 mg/dl (Negative); Leukocyte Esterase-Dipstick 25 /ul (Negative); Mucous, Urine 0 SEEN /hpf (<or=2+); Nitrite-Dipstick Negative (Negative); Occult Blood-Urine 250 /ul (Negative); Protein-Dipstick 100 mg/dl (Negative); Specific Gravity, Urine 1.005 (1.002-1.030); Urine Bilirubin Dipstick Negative (Negative); Urine Clarity Clear (Clear); Urine Urobilinogen 1 mg/dl (Normal)
[2023-02-12 11:04] LABS: Red Blood Cells-Urine 0-5 SEEN /hpf (0-5); Squamous Epithelial Cells - UA 0-5 SEEN /hpf (0-5); White Blood Cells 0-5 SEEN /hpf (0-5)
[2023-02-12 11:36] VITALS: BMI 29.7
[2023-02-12 12:00] VITALS: BP 97/51; PULSE 84; RESP 18; TEMP 37.1; O2SAT 98
[2023-02-12] MEDS: 0.9% Normal Saline 1,000 ML 125 ML IV ×2 (12:06→17:54)
[2023-02-12 13:10] LABS: Reflex Lactate? Y
[2023-02-12 14:01] LABS: Lactic Acid 2.7 mmol/L (0.4-1.9)
[2023-02-12 15:05] VITALS: BP 136/76; PULSE 77; RESP 18; TEMP 37.1; O2SAT 99
[2023-02-12] MEDS: Carbidopa/Levodopa 25/100 Tablet PO (16:22)
[2023-02-12] MEDS: Potassium Chloride Oral Tablet 20 MEQ PO (16:22)
[2023-02-12] MEDS: Clopidogrel Bisulfate 75 MG Tablet PO (21:41)
[2023-02-12] MEDS: Senna/Docusate Sodium 1 Tablet 2 TABLET PO (21:41)
[2023-02-12] MEDS: Atorvastatin Calcium 40 MG Tablet 80 MG PO (21:42)
[2023-02-12] MEDS: Mupirocin Ointment 22gm Tube 1 APPLIC TOPICAL (23:15)
[2023-02-13] VITALS: BP 127/70; PULSE 88; RESP 16; TEMP 37.2; O2SAT 96
[2023-02-13] MEDS: Ondansetron 4 MG/2 ML Vial IV (05:03)
[2023-02-13 05:33] VITALS: BP 106/61; PULSE 78; RESP 16; TEMP 36.6; O2SAT 96
[2023-02-13 05:54] LABS: Absolute Lymphocyte Count 0.99 X10^3/uL (0.83-4.51); Absolute Neutrophil Count 13.3 X10^3/uL (2.0-7.7); Basophil# 0.03 X10^3/uL; Basophil% 0.2 % (0-1); Eosinophil# 0.01 X10^3/uL; Eosinophils% 0.1 % (0-5); Hematocrit 31.2 % (40-54); Hemoglobin 9.9 g/dL (13.0-16.5); Lymphocyte # 0.99 X10^3/ul (0.83-4.51); Lymphocyte % 6.4 % (19-41); Mean Corp Hgb Conc 31.7 g/dL (32-36); Mean Corpuscular Hgb 26.5 pg (27.0-32.0); Mean Corpuscular Volume 83.6 fL (80-94); Mean Platelet Vol. 9.9 fl (6.2-12.0); Monocyte# 0.84 X10^3/uL; Monocyte% 5.4 % (0-10); NRBC Flagged by Analyzer 0 % (0-5); Neutrophil % 86.1 % (47-70); POSITIVE MORPHOLOGY YES; Platelet Count 152 K/mm3 (150-450); RBC Distribution Width CV 16.5 % (11.6-14.6); RBC Distribution Width SD 50.6 fl (35.1-43.9); Red Blood Count 3.73 M/mm3 (4.6-6.2); White Blood Count 15.5 K/mm3 (4.4-11.0)
[2023-02-13 05:58] LABS: Differential Indicated SCAN CRITERIA MET
[2023-02-13] MEDS: Carbidopa/Levodopa 25/100 Tablet PO ×3 (06:01→17:33)
[2023-02-13 06:18] LABS: Anion Gap 4 (5-15); BUN 24 mg/dL (7-18); BUN/Creat Ratio 20.7 RATIO (10-20); Calcium,Total 8.2 mg/dL (8.5-10.1); Chloride 108 mmol/L (98-107); Creatinine, Serum 1.16 mg/dL (0.70-1.30); EST Glomerular Filtration Rate 64 mL/min (>60); Est Glom Filt Rate - Afr Amer 78 mL/min (>60); Estimated Creatinine Clearance 58.07 ml/min; Glucose 101 mg/dL (74-106); Potassium 3.6 mmol/L (3.5-5.1); Sodium Level 139 mmol/L (136-145)
[2023-02-13 06:45] LABS: Anisocytosis 1+
--- NOTE | 2023-02-13 08:22 | WOUNDNOTE ---
Was asked to see patient for cellulitis to the RLE. patient has chronic lymphedema to bilateral lower legs. tubigrip in place to the LLE. the RLE is currently SKI TOPPER. there are no open areas noted. skin to bilateral legs and feet dry and flaky. washed legs and feet with soap and water. pat dry. applied petroleum to the lower legs and feet. reapplied the double layer tubigrip to the LLE. wrapped the RLE with kerlix and HERNANDO wrap. legs elevated up on pillows. pt tolerated well. see skin photo.
--- NOTE | 2023-02-13 08:40 | WOUNDNOTE ---
skin photo: bilateral lower legs
[2023-02-13 09:00] VITALS: BP 130/70; PULSE 77; RESP 18; TEMP 36.8; O2SAT 98
[2023-02-13] MEDS: Furosemide 40 MG Tablet PO (09:09)
[2023-02-13] MEDS: Aspirin E.C. 81 MG Tablet PO (09:09)
[2023-02-13] MEDS: Potassium Chloride Oral Tablet 20 MEQ 40 MEQ PO (09:09)
[2023-02-13] MEDS: Enoxaparin 40 MG/0.4 ML Syringe SC (09:09)
--- NOTE | 2023-02-13 10:34 | CASEMGMT ---
Discharge Planning Patient resides at [facility]. Referral sent via [employer]. Asked if pre-cert will be needed. Awaiting response. Elizabeth Sampson, Discharge Planning Asst.
--- NOTE | 2023-02-13 13:22 | CASEMGMT ---
Social Work SW met with pt and introduced self and role of SW. Pt states that he lives in [facility] and is currently at [facility] in [place] [facility] [place]. Pt is unhappy with the care he has received at [facility] and is requesting to return to [place] from the hospital. SW informed pt he can choose another nursing facility if unhappy with [facility]. A list of SNF providers including quality and resource use data and consistent with the patient?s preferred geographic region, medical needs, and insurance network were provided from the [employer] Guide. Pt continuing to request to return to [place]. SW sent message to [facility] inquiring about return to the [place]. SW will await response. FELIX Mortensen
--- NOTE | 2023-02-13 14:28 | PN.HOSP_ITS ---
Reason for Visit Reason for Visit: Diagnoses Cellulitis of right lower limb (02/12/23) Acute kidney failure, unspecified (02/12/23) Objective Data Objective Data Vital Signs: Vital Signs Temp Pulse Resp BP Pulse Ox O2 Del Method 98.2 F 77 18 130/70 H 98 Room Air 02/13/23 09:00 02/13/23 09:00 02/13/23 09:00 02/13/23 09:00 02/13/23 09:00 02/13/23 09:00 Oxygen Delivery Method Room Air Weight: 104.95 kg Body Mass Index (BMI) 29.7 Intake & Output: Intake and Output for Last 24 Hours 02/11/23 02/12/23 02/13/23 23:59 23:59 23:59 Intake Total 887 / 887 1100 / 1100 Output Total 2 / Balance 887 / 885 1098 / 1098 Lab / Micro Data Result Diagrams: 02/13/23 05:28 02/13/23 05:28 Labs: Laboratory Results - last 24 hr 02/13/23 05:28: WBC 15.5 H, RBC 3.73 L, Hgb 9.9 L, Hct 31.2 L, MCV 83.6, MCH 26.5 L, MCHC 31.7 L, RDW Std Deviation 50.6 H, RDW Coeff of Donnie 16.5 H, Plt Count 152, MPV 9.9, Immature Gran % (Auto) 1.800 H, Neut % (Auto) 86.1 H, Lymph % (Auto) 6.4 L, [place] % (Auto) 5.4, Eos % (Auto) 0.1, Baso % (Auto) 0.2, Absolute Neuts (auto) 13.3 H, Absolute Lymphs (auto) 0.99, Nucleated RBC % 0, Anisocytosis 1+ 02/13/23 05:28: Sodium 139, Potassium 3.6, Chloride 108 H, Carbon Dioxide 27.0, Anion Gap 4 L, BUN 24 H, Creatinine 1.16, Estim Creat Clear Calc 58.07, Est GFR (MDRD) Af Amer 78, Est GFR (MDRD) Non-Af 64, BUN/Creatinine Ratio 20.7 H, Glucose 101, Calcium 8.2 L Micro: Microbiology 02/12/23 13:20 Wound - Leg, Right Gram Stain - Final 02/12/23 13:20 Wound - Leg, Right Wound Culture - Preliminary No growth-Final to follow Radiography Diagnostic Testing: Radiology Impression Venous Doppler Study 02/12/23 08:44 Interpretation Summary Deep veins of the right lower extremity are patent and compressible segmentally. There is no evidence of right lower extremity deep vein thrombosis. The right great saphenous vein appears patent and compressible segmentally. Ordering Physician: Alfredo Rojo Referring Physician: Lam Huffman M.D. Performed By: Fany Rodríguez RVT Assessment & Plan Assessment/Plan (1) Acute kidney injury: (2) Cellulitis of right lower leg: (3) Lactic acidosis: (4) Sepsis: (5) Leukocytosis: (6) Lymphedema: PLAN: Plan Sepsis secondary to lower extremity cellulitis -Meets criteria with tachycardia, leukocytosis, lactic acidosis, ADRIAN -Patient did not receive or require fluid resuscitation per sepsis protocol but did receive IV fluids -Sepsis has resolved -Blood cultures are pending -Wound culture is pending -Blood cultures are with no growth to date -Appears to be related to right lower extremity cellulitis -Has had previous wound infection with polymicrobial infection including Pseudomonas/Staph aureus/Proteus mirabilis -We will continue Vanco and Zosyn for now as I do suspect that it is probably a polymicrobial infection from his lower extremities -Need broad oral coverage at discharge to cover gram-positive and gram- negative infections including MRSA -Consult infectious disease--> question need for suppressive treatment -Has seen vascular for this previously on 09/29/2022 -Wound care following and pictures reviewed--> no open areas noted at this time ADRIAN -Serum creatinine was 1.49 on presentation -Baseline serum creatinine is 0.9-1.1 -Resolving with current creatinine at 1.16 next-we will stop IV fluids and repeat tomorrow monitoring for adequate oral intake Lactic acidosis -Holding Leukocytosis -Trending down -repeat CBC in a.m. Chronic stable anemia -Hemoglobin down a bit this morning compared to yesterday however did receive some gentle hydration -Continue IV fluids -Repeat lab in a.m. Small vessel PVD/history of venous insufficiency -Continue aspirin and Plavix -Continue outpatient vascular follow-up as previously instructed -ABIs were normal but PVRs were diminished -Restart home Lasix CAD/HTN/HPL -Previous stent in 2019 -Continue aspirin and Plavix -Continue home Lasix -continue home atorvastatin -Last echo was in 2019 showed an EF of 65 to 70%/normal diastolic function/right ventricular systolic pressure 32 mmHg and mild aortic valve insufficiency History of BPH -Patient is not on any medications for this at this time Bilateral lower extremity lymphedema -Chronic -Increases risk for skin infections Tremors -Continue carbidopa-levodopa History of tobacco abuse -Patient's not any scheduled inhalers -As needed albuterol -Continue home guaifenesin -I-S Constipation -As needed meds available -Appears to be chronic issue DVT prophylaxis -Continue Lovenox CODE STATUS Full code Disposition: -Anticipate patient will be medically ready for discharge soon. Patient not wanting to go back to [facility]. Would really like to go back to assisted living. Awaiting evaluation and further information to ascertain which is most appropriate. Will need wound care follow-up at discharge. Charges/Coding Visit Charges Inpatient E&M: 22925 Subs Hosp L2
--- NOTE | 2023-02-13 14:34 | CHAPLAIN ---
Type of Pastoral Visit _x__ Initial Visit ___ Follow-up Visit ___ On-call Visit ___ General Patient Visit ___ Spiritual Assessment ___ Family Conference ___ Bereavement ___ Rapid Response ___ Code Blue ___ Other (describe below) Pastoral Care Referral From _x__ Patient ___ Family ___ Nurse ___ Physician ___ Equalizer Operator ___ Director Of Education And Training ___ Other (describe below) Sacrament/Intervention _x__ Active listening ___ Anointing ___ Mandaeism ___ Bereavement ___ Communion ___ Rona exploration ___ _x__ Life review _x__ Prayer ___ Reconciliation ___ Sacrament of Sick _x__ Supportive presence ___ Wedding ___ Other (describe below) Pastoral Comments 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
--- NOTE | 2023-02-13 15:19 | CASEMGMT ---
Social Work [facility] assisted living is not able to accept pt back at this time as his care needs are greater than they can provide. SW met with pt and updated and reviewed provided SNF list. After reviewing, pt choosing to return to [facility] and give them another chance . tawnya Johnson shipping assistant updated to notify [facility] and start precert. Plan: [facility], pending precert FELIX Mortensen
--- NOTE | 2023-02-13 15:19 | CASEMGMT ---
Discharge Planning Message sent to [facility] via [facility] to begin pre-cert. Elizabeth Sampson, Discharge Planning Asst.
[2023-02-13] MEDS: Potassium Chloride Oral Tablet 20 MEQ PO (17:33)
[2023-02-13 17:42] VITALS: BP 131/88; PULSE 73; RESP 18; TEMP 36.8; O2SAT 98
[2023-02-13 21:39] VITALS: BP 102/67; PULSE 71; RESP 18; TEMP 36.6; O2SAT 95
[2023-02-13] MEDS: Mupirocin Ointment 22gm Tube 1 APPLIC TOPICAL (21:43)
[2023-02-13] MEDS: Senna/Docusate Sodium 1 Tablet 2 TABLET PO (21:44)
[2023-02-13] MEDS: Clopidogrel Bisulfate 75 MG Tablet PO (21:44)
[2023-02-13] MEDS: Atorvastatin Calcium 40 MG Tablet 80 MG PO (21:44)
[2023-02-13] MEDS: Acetaminophen 325 MG Tablet 650 MG PO (22:27)
[2023-02-14] VITALS (8 sets, daily range): BP systolic 103–118; BP diastolic 58–63; PULSE 66–80; RESP 16–18; TEMP 36.6–37.5; O2SAT 94–98
[2023-02-14] MEDS: MELATONIN 3 MG TABLET PO (01:33)
[2023-02-14 05:20] LABS: Absolute Lymphocyte Count 1.08 X10^3/uL (0.83-4.51); Absolute Neutrophil Count 9.1 X10^3/uL (2.0-7.7); Basophil# 0.03 X10^3/uL; Basophil% 0.3 % (0-1); Eosinophil# 0.19 X10^3/uL; Eosinophils% 1.7 % (0-5); Hematocrit 28.8 % (40-54); Hemoglobin 9.2 g/dL (13.0-16.5); Lymphocyte # 1.08 X10^3/ul (0.83-4.51); Lymphocyte % 9.7 % (19-41); Mean Corp Hgb Conc 31.9 g/dL (32-36); Mean Corpuscular Hgb 26.4 pg (27.0-32.0); Mean Corpuscular Volume 82.8 fL (80-94); Mean Platelet Vol. 10.2 fl (6.2-12.0); Monocyte# 0.65 X10^3/uL; Monocyte% 5.8 % (0-10); NRBC Flagged by Analyzer 0 % (0-5); Neutrophil # 9.12 X10^3/uL (2.7-7.7); POSITIVE MORPHOLOGY YES; Platelet Count 137 K/mm3 (150-450); RBC Distribution Width CV 16.4 % (11.6-14.6); RBC Distribution Width SD 49.6 fl (35.1-43.9); Red Blood Count 3.48 M/mm3 (4.6-6.2); White Blood Count 11.1 K/mm3 (4.4-11.0)
[2023-02-14 05:33] LABS: Differential Indicated SCAN CRITERIA MET
[2023-02-14 06:00] LABS: Differential Comment SCANNED
[2023-02-14 06:06] LABS: Anion Gap 4 (5-15); BUN 19 mg/dL (7-18); BUN/Creat Ratio 18.1 RATIO (10-20); Chloride 108 mmol/L (98-107); Creatinine, Serum 1.05 mg/dL (0.70-1.30); EST Glomerular Filtration Rate 72 mL/min (>60); Est Glom Filt Rate - Afr Amer 87 mL/min (>60); Estimated Creatinine Clearance 64.15 ml/min; Glucose 87 mg/dL (74-106); Potassium 3.9 mmol/L (3.5-5.1); Sodium Level 139 mmol/L (136-145)
[2023-02-14] MEDS: Carbidopa/Levodopa 25/100 Tablet PO ×3 (06:33→15:37)
[2023-02-14] MEDS: Potassium Chloride Oral Tablet 20 MEQ 40 MEQ PO (08:17)
[2023-02-14] MEDS: Furosemide 40 MG Tablet PO (08:18)
[2023-02-14] MEDS: Aspirin E.C. 81 MG Tablet PO (08:18)
[2023-02-14] MEDS: Enoxaparin 40 MG/0.4 ML Syringe SC (08:18)
--- NOTE | 2023-02-14 09:04 | CASEMGMT ---
Discharge Planning [facility] has received pre-cert. made aware. Elizabeth Sampson, Discharge Planning Asst.
--- NOTE | 2023-02-14 10:10 | CASEMGMT ---
Social Work SW was notified by physician that pt is now stating he does not want to return to [facility]. SW met with pt and reviewed conversation yesterday and discussed options of SNF's that were presented and pt did choose [facility]. Pt stating he would like to go to [facility] where he is hopeful he will get better nursing care. Elizabeth d/c cashier assistant updated and will send referral to [facility]. Plan: [facility], pending acceptance FELIX Mortensen
--- NOTE | 2023-02-14 10:24 | CASEMGMT ---
Discharge Planning Referral sent via [facility] to [facility] per patient request. Elizabeth Sampson, Discharge Planning Asst.
--- NOTE | 2023-02-14 10:46 | PCM.CONS.GEN ---
Assessment & Plan Assessment/Plan (1) Cellulitis of right lower leg: PLAN: Non purulent RLE cellulitis with chronic lymphedema. Wound cx and bcx neg. Will narrow to cefazolin. Plan at discharge will be one week po keflex 500mg tid. Will follow, thank you HPI Consult Data Date of Consult: 02/14/23 HPI Narrative Reason for Consultation: cellulitis HPI Narrative: RADHA ZAMBRANO, is a 83 M with chronic BLE edema, F resident, follows at wound center, presented 02/12 with 1-2 days worsened RLE redness, pain, swelling. No fever or chills, no drainage, pain was mild and stabbing. No n/v/d. Admitted on vanc/zosyn, feeling about the same today. Full ROS performed and neg except as noted above. [facility] Medical History Abnormality of gait Anemia Atherosclerotic heart disease of [place] coronary artery without angina pectoris Benign neoplasm of colon Bilateral edema of lower extremity Bilateral hearing loss Blind right eye Borderline type 2 diabetes mellitus BPH (benign prostatic hyperplasia) Cellulitis Chronic ulcer of right foot with fat layer exposed Constipation History of non-ST elevation myocardial infarction (NSTEMI) (11/12/18) HTN (hypertension) Hyperlipidemia Lymphedema Osteoarthritis of lumbar spine Physical debility PSA elevation Renal cyst Ulcer of left lower extremity with fat layer exposed Ulcer of right foot with fat layer exposed Ulcer of right lower extremity with fat layer exposed Venous insufficiency Venous insufficiency of both lower extremities Home Medications aspirin 81 mg tablet,delayed release 81 mg PO DAILY@0800 11/13/18 [Rx Last Taken 02/11/23] potassium chloride 20 mEq tablet,extended release(part/cryst) See Rx Instructions .Route .COMPLEX health maintenance 05/04/21 [History Last Taken 02/11/23] atorvastatin 40 mg tablet 80 mg PO QHS 08/07/21 [History Last Taken 02/11/23] clopidogrel 75 mg tablet (Plavix) 75 mg PO QHS 08/07/21 [History Last Taken 02/11/23] bisacodyl 10 mg rectal suppository 10 mg CA DAILY PRN Constipation 11/07/21 [History Last Taken Unknown] glycerin (adult) (Fleet Glycerin (Adult) rectal suppository) 1 supp CA DAILY PRN Constipation 11/07/21 [History Last Taken Unknown] guaifenesin 600 mg tablet, extended release 12 hr (Mucinex) 600 mg PO Q12H PRN Cough 01/21/23 [History Last Taken Unknown] acetaminophen 325 mg tablet 650 mg PO Q6H PRN PRN Pain 1-10 Or Fever>100.7 #0 tabs 01/25/23 [Rx Last Taken Unknown] furosemide 40 mg tablet 40 mg PO DAILY #0 tabs 01/25/23 [Rx Last Taken Unknown] sennosides 8.6 mg-docusate sodium 50 mg tablet (Stool Softener-Stimulant Laxative) 2 tab PO BID #0 tabs 01/25/23 [Rx Last Taken 02/11/23] carbidopa 25 mg-levodopa 100 mg tablet 1 tab PO TID [place]SON[place] 02/12/23 [History Last Taken 02/11/23] mupirocin 2 % topical ointment 1 applic topical QPM WOUND CARE 02/12/23 [History Last Taken 02/07/23] polyethylene glycol 3350 17 gram oral powder packet 17 g PO DAILY CONSTIPATION 02/12/23 [History Last Taken 02/11/23] Allergy/AdvReac Type Severity Reaction Status Date / Time lemon Allergy Intermediate blisters Verified 02/12/23 08:38 on hands [place] Allergy Intermediate blisters Verified 02/12/23 08:38 on hands strawberry Allergy Intermediate blisters Verified 02/12/23 08:38 on hands Family History Other Diabetes Surgical History Stented coronary artery (11/12/18) Social History Smoking Status: Former smoker Physical Exam Const alert and no apparent distress General Appearance: cooperative HEENT normocephalic and head/scalp atraumatic Eyes PERRL and EOMs intact bilaterally Neck supple and No nodes Resp normal air movement and clear to auscultation bilaterally Cardio regular rate and regular rhythm GI soft to palpation, non-tender and non-distended Extremity General Extremity: edema Skin Skin Narrative: Reviewed photos, RLE redness/swelling Neuro CN's II-XII intact bilaterally Lab / Micro Data Attestation: I reviewed the patient's lab results. Result Diagrams: 02/14/23 04:12 02/14/23 04:12 Labs: Laboratory Results - last 24 hr 02/14/23 04:12: WBC 11.1 H, RBC 3.48 L, Hgb 9.2 L, Hct 28.8 L, MCV 82.8, MCH 26.4 L, MCHC 31.9 L, RDW Std Deviation 49.6 H, RDW Coeff of Donnie 16.4 H, Plt Count 137 L, MPV 10.2, Immature Gran % (Auto) 0.500, Neut % (Auto) 82.0 H, Lymph % (Auto) 9.7 L, [place] % (Auto) 5.8, Eos % (Auto) 1.7, Baso % (Auto) 0.3, Absolute Neuts (auto) 9.1 H, Absolute Lymphs (auto) 1.08, Nucleated RBC % 0, Differential Comment SCANNED 02/14/23 04:12: Sodium 139, Potassium 3.9, Chloride 108 H, Carbon Dioxide 27.0, Anion Gap 4 L, BUN 19 H, Creatinine 1.05, Estim Creat Clear Calc 64.15, Est GFR (MDRD) Af Amer 87, Est GFR (MDRD) Non-Af 72, BUN/Creatinine Ratio 18.1, Glucose 87, Calcium 8.0 L Micro: Microbiology 02/12/23 09:27 Blood Culture (Wb) - Anticubital Right Blood Culture - Preliminary No growth in 48 hours. 02/12/23 09:06 Blood Culture (Wb) - Left Wrist Blood Culture - Preliminary No growth in 48 hours. 02/12/23 13:20 Wound - Leg, Right Gram Stain - Final 02/12/23 13:20 Wound - Leg, Right Wound Culture - Final No growth aerobically. Radiology Impression Venous Doppler Study 02/12/23 08:44 Interpretation Summary Deep veins of the right lower extremity are patent and compressible segmentally. There is no evidence of right lower extremity deep vein thrombosis. The right great saphenous vein appears patent and compressible segmentally. Ordering Physician: Alfredo Rojo Referring Physician: Lam Huffman M.D. Performed By: Fany Rodríguez RVT
[2023-02-14] MEDS: Cefazolin 2 GM in 0.9% Normal Saline 100 ML IV ×2 (13:48→21:02)
--- NOTE | 2023-02-14 14:26 | PN.HOSP_ITS ---
Reason for Visit Reason for Visit: Worsening edema of lower extremities Subjective Subjective No issues overnight. Patient initially felt that he was okay to go back to [facility] however he is thought about it further and would like to go to brother in [place] if possible. He felt the care he got at [facility] was poor specifically from nursing. Expresses no current needs. Objective Data Objective Data Vital Signs: Vital Signs Temp Pulse Resp BP Pulse Ox O2 Del Method 97.9 F 67 16 105/58 L 96 Room Air 02/14/23 12:00 02/14/23 12:44 02/14/23 12:00 02/14/23 12:00 02/14/23 12:00 02/14/23 14:14 Oxygen Delivery Method Room Air Weight: 104.95 kg Body Mass Index (BMI) 29.7 Intake & Output: Intake and Output for Last 24 Hours 02/12/23 02/13/23 02/14/23 23:59 23:59 23:59 Intake Total 887 / 887 2500 / 2500 450 / 450 Output Total 7 / 357 350 / 350 Balance 887 / 885 2493 / 2143 100 / 100 Lab / Micro Data Result Diagrams: 02/14/23 04:12 02/14/23 04:12 Labs: Laboratory Results - last 24 hr 02/14/23 04:12: WBC 11.1 H, RBC 3.48 L, Hgb 9.2 L, Hct 28.8 L, MCV 82.8, MCH 26.4 L, MCHC 31.9 L, RDW Std Deviation 49.6 H, RDW Coeff of Donnie 16.4 H, Plt Count 137 L, MPV 10.2, Immature Gran % (Auto) 0.500, Neut % (Auto) 82.0 H, Lymph % (Auto) 9.7 L, [place] % (Auto) 5.8, Eos % (Auto) 1.7, Baso % (Auto) 0.3, Absolute Neuts (auto) 9.1 H, Absolute Lymphs (auto) 1.08, Nucleated RBC % 0, Differential Comment SCANNED 02/14/23 04:12: Sodium 139, Potassium 3.9, Chloride 108 H, Carbon Dioxide 27.0, Anion Gap 4 L, BUN 19 H, Creatinine 1.05, Estim Creat Clear Calc 64.15, Est GFR (MDRD) Af Amer 87, Est GFR (MDRD) Non-Af 72, BUN/Creatinine Ratio 18.1, Glucose 87, Calcium 8.0 L Micro: Microbiology 02/12/23 09:27 Blood Culture (Wb) - Anticubital Right Blood Culture - Preliminary No growth in 48 hours. 02/12/23 09:06 Blood Culture (Wb) - Left Wrist Blood Culture - Preliminary No growth in 48 hours. 02/12/23 13:20 Wound - Leg, Right Gram Stain - Final 02/12/23 13:20 Wound - Leg, Right Wound Culture - Final No growth aerobically. Physical Exam Const alert, oriented x3 and no apparent distress Constitutional Narrative: Elderly -Fijian male sitting up in bed, currently eating breakfast, appears comfortable and nontoxic General Appearance: cooperative Orientation / Consciousness: lethargic HEENT normocephalic and head/scalp atraumatic HEENT Narrative: Mallampati 2, dentition is poor, no thrush Resp normal respiratory effort, no retractions, no use of accessory muscles and clear to auscultation bilaterally Resp Narrative: diminished breath sounds bibasally, no wheezes or crackles. Auscultation: Negative for rales, rhonchi or wheezes Cardio regular rate, regular rhythm, S1 normal heart sound, S2 normal heart sound and n o murmurs GI normal to inspection, nondistended, normoactive bowel sounds, soft to palpation, non-tender and non-distended Extremity Extremity Narrative: Chronic significant bilateral lower extremity edema, very small wound noted on imaging from wound care pictures-this does not appear to be infected, erythema i s improved, no significant drainage, no cyanosis or clubbing Skin Skin Narrative: As noted above Neuro oriented x3, moves all extremities and no focal motor deficits Sensorium / Orientation: awake, alert, oriented to person, oriented to place and oriented to time Psych affect normal Psych Narrative: Very pleasant, active Assessment & Plan Assessment/Plan (1) Acute kidney injury: (2) Cellulitis of right lower leg: (3) Lactic acidosis: (4) Sepsis: (5) Leukocytosis: (6) Lymphedema: PLAN: Plan Sepsis secondary to lower extremity cellulitis -Meets criteria with tachycardia, leukocytosis, lactic acidosis, ADRIAN -Patient did not receive or require fluid resuscitation per sepsis protocol but did receive IV fluids -Sepsis has resolved -Wound culture with no growth thus far aerobically -Blood cultures are with no growth to date -Appears to be related to right lower extremity cellulitis -Has had previous wound infection with polymicrobial infection including Pseudomonas/Staph aureus/Proteus mirabilis -Antibiotics narrowed to Ancef -ID recommends Keflex 500 mg p.o. 3 times daily for 7 days at discharge -Has seen vascular for this previously on 09/29/2022 -Wound care following and pictures reviewed--> no open areas noted at this time ADRIAN -Serum creatinine was 1.39 on presentation -Baseline serum creatinine is 0.9-1.1 -creat is 1.05 today Leukocytosis -Continues to trend down and I do anticipate normalization next 24 to 48 hours -repeat CBC in a.m. Chronic stable anemia -Hemoglobin down a bit further but no s/o bleeding -Repeat lab in a.m. Small vessel PVD/history of venous insufficiency -Continue aspirin and Plavix -Continue outpatient vascular follow-up as previously instructed -ABIs were normal but PVRs were diminished -Restart home Lasix CAD/HTN/HPL -Previous stent in 2019 -Continue aspirin and Plavix -Continue home Lasix -continue home atorvastatin -Last echo was in 2019 showed an EF of 65 to 70%/normal diastolic function/right ventricular systolic pressure 32 mmHg and mild aortic valve insufficiency History of BPH -Patient is not on any medications for this at this time Bilateral lower extremity lymphedema -Chronic -Increases risk for skin infections Tremors -Continue carbidopa-levodopa History of tobacco abuse -Patient's not any scheduled inhalers -As needed albuterol -Continue home guaifenesin -I-S Constipation -As needed meds available -Appears to be chronic issue DVT prophylaxis -Continue Lovenox CODE STATUS Full code Disposition: -Patient is medically stable for discharge. He now is wanting to go to the brother and in [place] and acceptance is pending. Will need pre-CERT. Plan is to discharge on Keflex 500 mg 3 times daily for another 7 days Charges/Coding Visit Charges Inpatient E&M: 02616 Subs Hosp L2
--- NOTE | 2023-02-14 15:01 | CASEMGMT ---
Social Work [facility] does not have any beds available. SW met with pt and informed. SW assisted pt in reviewing SNF list again. After review, pt states he will go back to [facility] if they can care for his legs properly. SW sent wound care orders to [facility] and inquired if they can comply with orders. Neena at [facility] confirms [facility] can provide needed care and orders have been sent to their wound nurse. SW updated pt of this and pt is agreeable to return to [facility]. Physician updated. Plan: [facility], when medically ready. precert has been obtained. FELIX Mortensen
--- NOTE | 2023-02-14 15:16 | CASEMGMT ---
Discharge Planning [facility] notified via [facility]Port that patient will return 02/15/23. Elizabeth Sampson, Discharge Planning Asst.
[2023-02-14] MEDS: Furosemide 40 MG/4 ML Vial IV (15:37)
[2023-02-14] MEDS: Potassium Chloride Oral Tablet 20 MEQ PO (16:42)
[2023-02-14] MEDS: Acetaminophen 325 MG Tablet 650 MG PO (20:59)
[2023-02-14] MEDS: Clopidogrel Bisulfate 75 MG Tablet PO (21:05)
[2023-02-14] MEDS: Atorvastatin Calcium 40 MG Tablet 80 MG PO (21:05)
[2023-02-15 04:59] VITALS: BP 112/60; PULSE 70; RESP 16; TEMP 36.9; O2SAT 95
[2023-02-15] MEDS: Cefazolin 2 GM in 0.9% Normal Saline 100 ML IV (05:04)
[2023-02-15 06:40] LABS: Absolute Lymphocyte Count 1.24 X10^3/uL (0.83-4.51); Absolute Neutrophil Count 5.2 X10^3/uL (2.0-7.7); Basophil# 0.02 X10^3/uL; Basophil% 0.3 % (0-1); Eosinophil# 0.34 X10^3/uL; Eosinophils% 4.6 % (0-5); Hematocrit 30.1 % (40-54); Hemoglobin 9.7 g/dL (13.0-16.5); Lymphocyte # 1.24 X10^3/ul (0.83-4.51); Lymphocyte % 16.9 % (19-41); Mean Corp Hgb Conc 32.2 g/dL (32-36); Mean Corpuscular Hgb 26.5 pg (27.0-32.0); Mean Corpuscular Volume 82.2 fL (80-94); Mean Platelet Vol. 9.9 fl (6.2-12.0); Monocyte# 0.48 X10^3/uL; Monocyte% 6.6 % (0-10); NRBC Flagged by Analyzer 0 % (0-5); Neutrophil # 5.18 X10^3/uL (2.7-7.7); Neutrophil % 70.8 % (47-70); Platelet Count 153 K/mm3 (150-450); RBC Distribution Width SD 48.7 fl (35.1-43.9); Red Blood Count 3.66 M/mm3 (4.6-6.2); White Blood Count 7.3 K/mm3 (4.4-11.0)
[2023-02-15 07:15] LABS: Anion Gap 4 (5-15); BUN 14 mg/dL (7-18); BUN/Creat Ratio 14.1 RATIO (10-20); Calcium,Total 8.4 mg/dL (8.5-10.1); Chloride 106 mmol/L (98-107); EST Glomerular Filtration Rate 77 mL/min (>60); Est Glom Filt Rate - Afr Amer 93 mL/min (>60); Estimated Creatinine Clearance 67.36 ml/min; Glucose 87 mg/dL (74-106); Potassium 3.6 mmol/L (3.5-5.1); Sodium Level 140 mmol/L (136-145)
--- NOTE | 2023-02-15 07:58 | WOUNDNOTE ---
wound photo: right lower leg
[2023-02-15] MEDS: Aspirin E.C. 81 MG Tablet PO (08:44)
[2023-02-15] MEDS: Carbidopa/Levodopa 25/100 Tablet PO ×2 (08:44→11:59)
[2023-02-15] MEDS: Furosemide 40 MG Tablet PO (08:45)
[2023-02-15] MEDS: Enoxaparin 40 MG/0.4 ML Syringe SC (08:45)
[2023-02-15] MEDS: Potassium Chloride Oral Tablet 20 MEQ 40 MEQ PO (08:45)
[2023-02-15] MEDS: Polyethylene Glycol 3350 17 GM PACKET PO (08:49)
--- NOTE | 2023-02-15 09:39 | CASEMGMT ---
Addendum entered by Zulema Marquez 02/15/23 10:14: Received tc back from [facility], pt physician is not in next week. Appointment made for the following week and placed on dc instructions. Original Note: TC to [facility] to schedule appt for pt for early next week per hospitalist request, left message requesting returned call.
--- NOTE | 2023-02-15 11:00 | PCM.TXEXTCAR ---
Diet Diet Order/Speech Therapy: 02/14/23 14:00 Diet: Regular - General Dietary Modifications:: Consistent Carbohydrate Sodium Restricted Is pt able to select menu?: Yes Routine Orders/Code Status O2 Frequency: PRN Keep PO Greater than or Equal to (%): 88 Routine Lab Work: CBC (1 week) and BMP (in 1 week) Code Status: Full Code Wound(s) RLE: Wound Type: small open wound Dressing Change: Adaptic L 2nd toe: Wound Type: red, open to air Therapies Physical Therapy: Eval and Treat Occupational Therapy: Eval and Treat Problem/Diagnosis (1) Acute kidney injury: Status: Acute Code(s): N17.9 - Acute kidney failure, unspecified (2) Cellulitis of right lower leg: Status: Acute Code(s): L03.115 - Cellulitis of right lower limb (3) Lactic acidosis: Status: Acute Code(s): E87.20 - Acidosis, unspecified (4) Sepsis: Status: Acute Code(s): A41.9 - Sepsis, unspecified organism (5) Leukocytosis: Status: Acute Code(s): D72.829 - Elevated white blood cell count, unspecified (6) Lymphedema: Status: Acute Code(s): I89.0 - Lymphedema, not elsewhere classified Plan Please do daily dressing changes in the morning prior to him getting out of bed Allergies/Procedures Done in Hospital Allergies lemon Allergy (Intermediate, Verified 02/12/23 08:38) blisters on hands [facility] [place]ul[place] Allergy (Intermediate, Verified 02/12/23 08:38) blisters on hands [facility] [facility] strawberry Allergy (Intermediate, Verified 02/12/23 08:38) blisters on hands Procedures: - (Lower extremity x-rays/venous duplex) Type of Care/Length of Stay Estimated LOS: Convalescent Care Less Than 30 days Type of Care Needed: Skilled Rehab Potential: Fair Prognosis: Fair Additional Orders/Day of Discharge Day of Discharge: 02/15/23 Dietary and Speech Recommendations Dietitian Recommendations/Changes: Will adjust diet to 2000 calorie/consistent carbohydrate; cardiac/sodium-restricted---fluid restriction per physician as needed. ONS if PO fails at meals. Discharge Plan Admission Admit Date/Time: 02/12/23 10:46 Attending Provider: Isabel Espinal Primary Care Provider: Lam Huffman Consulting Providers: Kavya Owen ; Celestino Chapman Discharge Orders/Prescriptions Prescriptions: No Action aspirin 81 MG tablet 81 mg PO DAILY@0800 0RF potassium chloride 20 mEq tablet,ER particles/crystals See Rx Instructions .ROUTE .COMPLEX Label Comments: Take 2 tablets by mouth every morning AND 1 tablet every afternoon. Rx Instructions: 40meq orally each am and 20 mEq orally afternoon atorvastatin 40 mg tablet 80 mg PO QHS clopidogrel [Plavix] 75 mg tablet 75 mg PO QHS glycerin (adult) [Fleet Glycerin (Adult)] Suppository 1 supp MT DAILY PRN (Reason: Constipation) bisacodyl 10 mg Suppository 10 mg MT DAILY PRN (Reason: Constipation) guaifenesin [Mucinex] 600 mg Tablet Extended Release 12hr 600 mg PO Q12H PRN (Reason: Cough) furosemide 40 mg Tablet 40 mg PO DAILY Qty: 0 0RF Rx Instructions: Take an additional 40 mg dose at 5 PM for increased leg swelling or weight gain 5 pounds in 1 week. acetaminophen 325 mg Tablet 650 mg PO Q6H PRN PRN (Reason: Pain 1-10 Or Fever>100.7) Qty: 0 0RF sennosides-docusate sodium [Stool Softener-Stimulant Laxat] 8.6-50 mg Tablet 2 tab PO BID Qty: 0 0RF mupirocin 2 % ointment 1 applic TOPICAL QPM carbidopa-levodopa 25-100 mg tablet 1 tab PO TID polyethylene glycol 3350 17 gram powder in packet 17 g PO DAILY Referrals / Follow Up: Mariajose Rashid MD [Med Staff - Active Staff] - 03/02/23 10:00 am [facility] Lam Huffman MD [Primary Care Provider] -
--- NOTE | 2023-02-15 11:07 | PCM.DC.SUM ---
Providers Date of Admission: 02/12/23 Date of Discharge: 02/15/23 Primary Care Physician: Dr. Lam Huffman MD Consultations 02/12/23 11:33 Consult: Onc/Wound/district resource officer Routine Comment: 02/13/23 14:26 Consult: Infectious Disease Routine Consulting Provider: Celestino Chapman Reason for Consult: R current R LE cellulitis--> ? Suppression EMERGENT Consult: No MD Notified: Yes Date Notified: 02/13/23 Time Notified: 15:21 Method of Notification: Text Reason For Visit: CELLULITIS RLE Diagnosis Discharge Diagnosis (1) Acute kidney injury: Status: Acute Code(s): N17.9 - Acute kidney failure, unspecified (2) Cellulitis of right lower leg: Status: Acute Code(s): L03.115 - Cellulitis of right lower limb (3) Lactic acidosis: Status: Acute Code(s): E87.20 - Acidosis, unspecified (4) Sepsis: Status: Acute Code(s): A41.9 - Sepsis, unspecified organism (5) Leukocytosis: Status: Acute Code(s): D72.829 - Elevated white blood cell count, unspecified (6) Lymphedema: Status: Acute Code(s): I89.0 - Lymphedema, not elsewhere classified Medications at Discharge Home Medications aspirin 81 mg tablet,delayed release 81 mg PO DAILY@0800 11/13/18 potassium chloride 20 mEq tablet,extended release(part/cryst) See Rx Instructions .Route .COMPLEX health maintenance 05/04/21 atorvastatin 40 mg tablet 80 mg PO QHS 08/07/21 clopidogrel 75 mg tablet (Plavix) 75 mg PO QHS 08/07/21 bisacodyl 10 mg rectal suppository 10 mg ND DAILY PRN Constipation 11/07/21 glycerin (adult) (Fleet Glycerin (Adult) rectal suppository) 1 supp ND DAILY PRN Constipation 11/07/21 guaifenesin 600 mg tablet, extended release 12 hr (Mucinex) 600 mg PO Q12H PRN Cough 01/21/23 acetaminophen 325 mg tablet 650 mg PO Q6H PRN PRN Pain 1-10 Or Fever>100.7 #0 tabs 01/25/23 furosemide 40 mg tablet 40 mg PO DAILY #0 tabs 01/25/23 sennosides 8.6 mg-docusate sodium 50 mg tablet (Stool Softener-Stimulant Laxative) 2 tab PO BID #0 tabs 01/25/23 carbidopa 25 mg-levodopa 100 mg tablet 1 tab PO TID PARKINSONS 02/12/23 mupirocin 2 % topical ointment 1 applic topical QPM WOUND CARE 02/12/23 polyethylene glycol 3350 17 gram oral powder packet 17 g PO DAILY CONSTIPATION 02/12/23 cephalexin 500 mg capsule 500 mg PO TID #21 caps 02/15/23 Hospital Course Procedures - (Bilateral lower extremity duplex scan/lower extremity x-rays) Summary of Care Provided Minutes Spent on Discharge: 37 Hospital Course: Mr. Boles is an 83-year-old white male who presented to emergency department at [facility] on 02/12/2023 with worsening lower extremity edema and pain/redness. Patient has known chronic lymphedema and had a recent hospitalization here from 01/21/2023 through 01/25/2023 at which time he came in with sepsis related to lower extremity cellulitis. He improved and was discharged on oral antibiotics to complete a course. He was followed up at the wound center and they had recently discharged him from care as he was doing well on 02/09/2023. When he reported here on the he reported that the day prior he had worsening swelling, pain, redness of his lower extremity specifically the right side that had worsened from his baseline. He denied any fever but was febrile in the emergency department. He denies any nausea or vomiting, chest pain, palpitations or any other related symptoms. He had not had any trauma to his legs recently. Vitals on presentation were unremarkable. Oxygen saturation was 96% on room air. He did have a white count of 22.9 and an elevated serum creatinine at 1.49. X-ray of the lower extremity showed no fracture or subcutaneous gas and he was admitted to the medical floor for management of his cellulitis. He met sepsis criteria on presentation with his tachycardia, leukocytosis, lactic acidosis and acute kidney injury. He did not require IV fluid resuscitation per sepsis protocol but did receive gentle hydration. He was placed on broad-spectrum antibiotics and wound and blood cultures were obtained. Wound cultures were no growth to date. Blood cultures were negative at 72 hours upon discharge. Bilateral lower extremity Dopplers were unremarkable. Since this was a recurrence, we had infectious disease evaluate the patient. With his cultures being negative he was transition to Ancef. Keflex 500 mg p.o. 3 times daily for 7 days was recommended at discharge. His white count resolved by the day of discharge and he was feeling well. He does continue to require ongoing physical and occupational therapy before transitioning back to his assisted living environment. He would prefer to go back to assisted living but this is unfortunately not possible with his decreased ability to care for himself at this time. He was able to be discharged in stable condition back to [facility] on 02/15/2023. He will have a follow-up appointment with the wound center early next week. I advised him to follow-up with his primary care physician once discharged from [facility]. Patient is at high risk for recurrent infection in his lower extremities due to his chronic lymphedema. Discharge diagnoses: Sepsis Lower extremity cellulitis Leukocytosis-resolved ADRIAN-resolved Chronic stable anemia Small vessel PVD History of venous insufficiency Chronic lymphedema bilateral lower extremities CAD Hypertension Hyperlipidemia History of BPH Tremors History of tobacco abuse History of chronic constipation Insulin resistance Physical Exam Const alert, oriented x3 and no apparent distress Constitutional Narrative: Elderly -[place] male sitting up in a chair at the bedside, watching television, appears comfortable and nontoxic General Appearance: cooperative, comfortable, well kempt and well developed Orientation / Consciousness: awake, oriented to person, oriented to place and lethargic Exam Limitations: no limitations Nutritional Appearance: overweight HEENT normocephalic, head/scalp atraumatic and moist oral mucous membranes HEENT Narrative: Mild hearing loss, dentition is poor, Mallampati is 2, no thrush Eyes PERRL, EOMs intact bilaterally and conjunctivae normal Neck no lymphadenopathy, supple and no JVD Resp normal respiratory effort, no retractions, no use of accessory muscles and clear to auscultation bilaterally Resp Narrative: Diminished but clear Auscultation: Negative for rales, rhonchi or wheezes Cardio regular rate, regular rhythm, S1 normal heart sound, S2 normal heart sound, no murmurs, no rub, no gallops and no clicks GI normal to inspection, nondistended, normoactive bowel sounds, soft to palpation and non-tender Extremity Extremity Narrative: Chronic significant bilateral lower extremity edema, very small wound noted on imaging from wound care pictures-this does not appear to be infected, erythema is improved, no significant drainage, no cyanosis or clubbing Skin no jaundice Skin Narrative: As noted above Neuro oriented x3, CN's II-XII intact bilaterally, moves all extremities and no focal motor deficits Neuro Narrative: Generalized weakness- proximal greater than distal Sensorium / Orientation: awake, alert, oriented to person, oriented to place and oriented to time Speech: speech normal Psych affect normal Psych Narrative: Very pleasant, appropriately interactive Weight / BMI Weight Weight: 104.95 kg Body Mass Index (BMI) 29.7 ABG / Lab / Microbiology Data Result Diagrams: 02/15/23 05:40 02/15/23 05:40 Laboratory: Laboratory Results - last 24 hr 02/15/23 05:40: WBC 7.3, RBC 3.66 L, Hgb 9.7 L, Hct 30.1 L, MCV 82.2, MCH 26.5 L, MCHC 32.2, RDW Std Deviation 48.7 H, RDW Coeff of Donnie 16.0 H, Plt Count 153, MPV 9.9, Immature Gran % (Auto) 0.800, Neut % (Auto) 70.8 H, Lymph % (Auto) 16.9 L, [place] % (Auto) 6.6, Eos % (Auto) 4.6, Baso % (Auto) 0.3, Absolute Neuts (auto) 5.2, Absolute Lymphs (auto) 1.24, Nucleated RBC % 0 02/15/23 05:40: Sodium 140, Potassium 3.6, Chloride 106, Carbon Dioxide 30.0, Anion Gap 4 L, BUN 14, Creatinine 1.00, Estim Creat Clear Calc 67.36, Est GFR (MDRD) Af Amer 93, Est GFR (MDRD) Non-Af 77, BUN/Creatinine Ratio 14.1, Glucose 87, Calcium 8.4 L Microbiology: Microbiology 02/12/23 09:27 Blood Culture (Wb) - Anticubital Right Blood Culture - Preliminary No growth in 48 hours. 02/12/23 09:06 Blood Culture (Wb) - Left Wrist Blood Culture - Preliminary No growth in 48 hours. 02/12/23 13:20 Wound - Leg, Right Gram Stain - Final 02/12/23 13:20 Wound - Leg, Right Wound Culture - Final No growth aerobically. D/C Instructions Discharge Diet: Low fat / Low cholesterol Meaningful Use Info Meaningful Use Diagnoses (Choose all that apply): None applicable Discharge Plan Admission Admit Date/Time: 02/12/23 10:46 Primary Reason for Your Visit: Leg Swelling and Redness/Pain Attending Provider: Isabel Espinal Primary Care Provider: Lam Huffman Consulting Providers: Kavya Owen ; Celestino Chapman Discharge Orders/Prescriptions Prescriptions: New cephalexin 500 mg capsule 500 mg PO TID Qty: 21 0RF Continued aspirin 81 MG tablet 81 mg PO DAILY@0800 0RF potassium chloride 20 mEq tablet,ER particles/crystals See Rx Instructions .ROUTE .COMPLEX Label Comments: Take 2 tablets by mouth every morning AND 1 tablet every afternoon. Rx Instructions: 40meq orally each am and 20 mEq orally afternoon atorvastatin 40 mg tablet 80 mg PO QHS clopidogrel [Plavix] 75 mg tablet 75 mg PO QHS glycerin (adult) [Fleet Glycerin (Adult)] Suppository 1 supp ND DAILY PRN (Reason: Constipation) bisacodyl 10 mg Suppository 10 mg ND DAILY PRN (Reason: Constipation) guaifenesin [Mucinex] 600 mg Tablet Extended Release 12hr 600 mg PO Q12H PRN (Reason: Cough) furosemide 40 mg Tablet 40 mg PO DAILY Qty: 0 0RF Rx Instructions: Take an additional 40 mg dose at 5 PM for increased leg swelling or weight gain 5 pounds in 1 week. acetaminophen 325 mg Tablet 650 mg PO Q6H PRN PRN (Reason: Pain 1-10 Or Fever>100.7) Qty: 0 0RF sennosides-docusate sodium [Stool Softener-Stimulant Laxat] 8.6-50 mg Tablet 2 tab PO BID Qty: 0 0RF mupirocin 2 % ointment 1 applic TOPICAL QPM carbidopa-levodopa 25-100 mg tablet 1 tab PO TID polyethylene glycol 3350 17 gram powder in packet 17 g PO DAILY Referrals / Follow Up: Mariajose Rashid MD [Med Staff - Active Staff] - 03/02/23 10:00 am [facility] Lam Huffman MD [Primary Care Provider] - Within 1 Month Disposition Disposition (needs filled in before D/C Order can be placed): [facility] Charges/Coding Visit Charges Inpatient E&M: 55949 SNF Disch >30 Min
--- NOTE | 2023-02-15 11:25 | CASEMGMT ---
Social Work SW completed the hospital exemption in the [facility] system. JAMILAH Tapia
--- NOTE | 2023-02-15 11:26 | PHA.DC.MR ---
Pharmacy Service has performed discharge medication reconciliation for this patient. The patient's discharge medication list was reviewed for discrepancies and discrepancies were resolved. Home Medications aspirin 81 mg tablet,delayed release 81 mg PO DAILY@0800 11/13/18 potassium chloride 20 mEq tablet,extended release(part/cryst) See Rx Instructions .Route .COMPLEX health maintenance 05/04/21 atorvastatin 40 mg tablet 80 mg PO QHS 08/07/21 clopidogrel 75 mg tablet (Plavix) 75 mg PO QHS 08/07/21 bisacodyl 10 mg rectal suppository 10 mg PA DAILY PRN Constipation 11/07/21 glycerin (adult) (Fleet Glycerin (Adult) rectal suppository) 1 supp PA DAILY PRN Constipation 11/07/21 guaifenesin 600 mg tablet, extended release 12 hr (Mucinex) 600 mg PO Q12H PRN Cough 01/21/23 acetaminophen 325 mg tablet 650 mg PO Q6H PRN PRN Pain 1-10 Or Fever>100.7 #0 tabs 01/25/23 furosemide 40 mg tablet 40 mg PO DAILY #0 tabs 01/25/23 sennosides 8.6 mg-docusate sodium 50 mg tablet (Stool Softener-Stimulant Laxative) 2 tab PO BID #0 tabs 01/25/23 carbidopa 25 mg-levodopa 100 mg tablet 1 tab PO TID PARKINSONS 02/12/23 mupirocin 2 % topical ointment 1 applic topical QPM WOUND CARE 02/12/23 polyethylene glycol 3350 17 gram oral powder packet 17 g PO DAILY CONSTIPATION 02/12/23 cephalexin 500 mg capsule 500 mg PO TID #21 caps 02/15/23
--- NOTE | 2023-02-15 11:43 | CASEMGMT ---
Discharge Planning Discharge orders and transport time sent to [facility] via [facility]. Physicians will transport patient via cot at 12:30p. Nursing, SW, patient, and his brother, Rodrigue, all notified. Elizabeth Sampson, Discharge Planning Asst.
[2023-02-15 12:00] VITALS: BP 118/64; PULSE 70; RESP 18; TEMP 37; O2SAT 97
== END 2023-02-15 12:44 | disposition skilled nursing facility (03) | DRG 872 ==
LOC: ED 10:18 → MS3 11:06
PROVIDERS: Admitting Provider Student in an Organized Health Care Education/Training Program; Emergency Provider Emergency Medicine; PCP Internal Medicine; Visit Provider Internal Medicine
DX: A41.9 Sepsis, unspecified organism (principal); G20 Parkinson's disease; L97.811 Non-pressure chronic ulcer of other part of right lower leg limited to breakdown of skin; N17.9 Acute kidney failure, unspecified; I73.9 Peripheral vascular disease, unspecified; E87.21 Acute metabolic acidosis; L03.115 Cellulitis of right lower limb; I87.2 Venous insufficiency (chronic) (peripheral); I10 Essential (primary) hypertension; E78.5 Hyperlipidemia, unspecified; I25.10 Atherosclerotic heart disease of native coronary artery without angina pectoris; I89.0 Lymphedema, not elsewhere classified; D64.9 Anemia, unspecified; K59.09 Other constipation; I25.2 Old myocardial infarction; H91.93 Unspecified hearing loss, bilateral; Z95.5 Presence of coronary angioplasty implant and graft; Z79.01 Long term (current) use of anticoagulants; Z79.02 Long term (current) use of antithrombotics/antiplatelets; Z79.82 Long term (current) use of aspirin; Z79.899 Other long term (current) drug therapy; Z87.891 Personal history of nicotine dependence; N40.0 Benign prostatic hyperplasia without lower urinary tract symptoms
CPT/HCPCS: 11042; 29581; 36415; 73590; 80048; 80053; 81001; 83605; 85025; 85610; 85730; 87040; 87070; 87205; 93971; 96361; 96365; 96366; 96367; 96372; 96375; 97110; 97162; 97166; 97530; 97535; 97802; 99213; 99221; 99285; J7030; J7050; A4216; G0378; G0463; J0295; J1940; J2405

== ENCOUNTER 2023-05-25 10:15 | Outpatient (RCR) | payer MEDICARE, MEDICAID, SELFPAY ==
[2023-05-04 10:27] VITALS: BP 120/49; PULSE 73; RESP 16; TEMP 36.8
--- NOTE | 2023-05-04 12:17 | HP.PCM_ITS ---
History of Present Illness Date of Service: 05/04/23 Chief Complaint: Bilateral lower extremity ulcers History of Wound: Mr. Boles is an 83-year-old currently residing at [facility] who presents due to nonhealing bilateral lower extremity ulceration. He was seen here a few months ago and discharged after he achieved healing. Recommendation was for continued use of his lymphedema pump however he states that this has not been used consistently. Current ulceration has been present for weeks. No chills, fever or otherwise feeling of unwell. 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 BPH (benign prostatic hyperplasia) Cellulitis Chronic ulcer of right foot with fat layer exposed Constipation History of non-ST elevation myocardial infarction (NSTEMI) (11/12/18) HTN (hypertension) Hyperlipidemia Lymphedema Lymphedema Osteoarthritis of lumbar spine Physical debility PSA elevation Renal cyst Ulcer of left lower extremity with fat layer exposed Ulcer of right foot with fat layer exposed Ulcer of right lower extremity with fat layer exposed Venous insufficiency Venous insufficiency of both lower extremities Home Medications aspirin 81 mg tablet,delayed release 81 mg PO DAILY@0800 11/13/18 [Rx Last Taken 02/11/23] potassium chloride 20 mEq tablet,extended release(part/cryst) See Rx Instructions .Route .COMPLEX health maintenance 05/04/21 [History Last Taken 02/11/23] atorvastatin 40 mg tablet 80 mg PO QHS 08/07/21 [History Last Taken 02/11/23] clopidogrel 75 mg tablet (Plavix) 75 mg PO QHS 08/07/21 [History Last Taken 02/11/23] bisacodyl 10 mg rectal suppository 10 mg NH DAILY PRN Constipation 11/07/21 [History Last Taken Unknown] glycerin (adult) (Fleet Glycerin (Adult) rectal suppository) 1 supp NH DAILY PRN Constipation 11/07/21 [History Last Taken Unknown] guaifenesin 600 mg tablet, extended release 12 hr (Mucinex) 600 mg PO Q12H PRN Cough 01/21/23 [History Last Taken Unknown] acetaminophen 325 mg tablet 650 mg (2 x 325 mg) PO Q6H PRN PRN Pain 1-10 Or Fever>100.7 #0 tabs 01/25/23 [Rx Last Taken Unknown] furosemide 40 mg tablet 40 mg PO DAILY #0 tabs 01/25/23 [Rx Last Taken Unknown] sennosides 8.6 mg-docusate sodium 50 mg tablet (Stool Softener-Stimulant Laxative) 2 tab PO BID #0 tabs 01/25/23 [Rx Last Taken 02/11/23] carbidopa 25 mg-levodopa 100 mg tablet 1 tab PO TID PARKINSONS 02/12/23 [History Last Taken 02/11/23] mupirocin 2 % topical ointment 1 applic topical QPM WOUND CARE 02/12/23 [History Last Taken 02/07/23] polyethylene glycol 3350 17 gram oral powder packet 17 g PO DAILY CONSTIPATION 02/12/23 [History Last Taken 02/11/23] cephalexin 500 mg capsule 500 mg PO TID #21 caps 02/15/23 [Rx Last Taken Unknown] Allergy/AdvReac Type Severity Reaction Status Date / Time lemon Allergy Intermediate blisters Verified 03/01/23 10:59 on hands eagle Allergy Intermediate blisters Verified 03/01/23 10:59 on hands strawberry Allergy Intermediate blisters Verified 03/01/23 10:59 on hands Family History Other Diabetes Surgical History Stented coronary artery (11/12/18) Social History Smoking Status: Former smoker ROS Constitutional Constitutional: Denies fatigue, fever(s), frequent falls, headache(s), increased appetite, lethargy or malaise Eyes Eyes: Denies exophthalmos, eye pain, floaters, foreign body, halo effect, irritation, itchy eyes or loss of central vision ENT HEENT: Denies headache(s), mouth pain, mucositis, nasal congestion, nasal discharge, nasal obstruction or nasal trauma Cardiovascular Cardiovascular: Reports edema; Denies dyspnea at rest, dyspnea on exertion, easily tiring during activity, flutter in chest, orthostatic symptoms, palpitations or paroxysmal nocturnal dyspnea Respiratory/Chest Respiratory/Chest: Denies excessive phlegm production, hemoptysis, hoarseness, inability to speak, mouth breathing or nail bed cyanosis Gastrointestinal Gastrointestinal: Denies dry heaves, dyspepsia, dysphagia, hematemesis, hematochezia, hemorrhoids, loose stools or melena Genitourinary Genitourinary: Denies flank pain, genital pain, hematuria, penile discharge or penile swelling Musculoskeletal Musculoskeletal: Denies loss of height, muscle cramps, muscle spasms, muscle weakness, myalgias, neck pain or numbness Integumentary Integumentary: Reports skin ulcer and skin swelling; Denies erythema, furuncle, hirsutism, jaundice, lesions or nail changes Neurologic Neurologic: Denies burning sensations, confusion, convulsions, disequilibrium, dizziness, focal weakness, frequent falls or headache(s) Psychiatric Psychiatric: Denies cognitive impairment, confusion, depression, difficulty concentrating, hallucinations, homicidal ideation, hopelessness or irritability Endocrine Endocrinology: Denies excessive sweating, fatigue, flushing, heat intolerance, increase in ring/shoe/hat size, palpitations or polydipsia Allergic/Immunologic Allergic/Immunologic: Denies tongue swelling, hives, urticaria, eczemia, wheezing or asthma Vital Signs Vital Signs Vital Signs: 05/04/23 10:27 Temperature 98.3 F Temperature Source Temporal Pulse Rate 73 Respiratory Rate 16 Blood Pressure 120/49 L Blood Pressure Mean 72 Blood Pressure Source Monitor Blood Pressure Position Sitting Blood Pressure Location Left Forearm Oxygen Delivery Method Room Air Physical Exam Const alert, oriented x3 and no apparent distress General Appearance: cooperative, comfortable and well kempt HEENT normocephalic and head/scalp atraumatic Eyes EOMs intact bilaterally General Eye: normal appearance of both eyes Neck full ROM General: normal visual inspection Resp normal respiratory effort Effort and Inspection: able to speak in complete sentences Extremity General Extremity: edema Skin Wounds: wounds noted Neuro oriented x3, CN's II-XII intact bilaterally, moves all extremities and no focal motor deficits Psych mental status grossly normal, thought process normal, cooperative and affect normal Debridement Note Debridement Note Wound debrided: Right sinclair cluster Type of Debridement: Excisional debridement Anesthesia Used: 4% Lidocaine Solution Depth: Down to and including healthy tissue and in the subcutaneous layer Percentage of wound debrided: 100 Instrument Used: 7mm curette Tissue Removed: Slough and devitalized tissue Severity: Fat Layer Exposed Amount of bleeding with debridement: Mild Bleeding Controlled with: Pressure Patient tolerated procedure: Patient tolerated procedure well Post-Debridement Measurements and Additional Note: Post-Debridement Measurements/Treatment - Nurse 1 - General Ulcer Assessment Start: 05/04/23 10:26 Freq: Status: Active Protocol: LINDA Activity Type Activity Date Activity User E-sign Co-sign Detail Recorded Client Recorded Date Recorded By Document 05/04/23 10:27 [facility] [id number] 05/04/23 10:42 [facility] 05/04/23 10:27 WC - Today's Visit Information Type of service Initial Visit Arrival Mode Wheelchair Transfer Assistance Other Transfer Assist (Other) 2 Patient Identification Verified (Name & Yes ) Patient Requires Transmission-Based No Precautions Vital Signs Temperature (97.8 F-99.1 F) 98.3 F Temperature Source Temporal Pulse Rate (60-100) 73 Pulse Location Monitor Respiratory Rate (12-18) 16 Respiratory rate source Observation Oxygen Delivery Method Room Air Blood Pressure (90/60-120/80) 120/49 L Blood Pressure Mean 72 Source Monitor Position Sitting Blood Pressure Location Left Forearm History Since Last Visit- (Skip if this is Patient's initial visit) Left Footwear Custom Shoe Right Footwear Custom Shoe Pain Scale: 0-10 Numeric Is Patient Pain Free? Yes - Nurse 1 - General Ulcer Measurement Start: 05/04/23 10:26 Freq: Status: Active Protocol: Activity Type Activity Date Activity User E-sign Co-sign Detail Recorded Client Recorded Date Recorded By Document 05/04/23 10:27 [facility] [id number] 05/04/23 10:42 [facility] 05/04/23 10:27 Wound Center Nurse 1 #13 R MED LE -Combined with other wound No -Current Size (cm) - Length 0.1 -Current Size (cm) - Width 0.1 -Current Size (cm) - Depth 0.1 -Total Square Cm 0.01 -Date of Last Picture (Recall this 05/04/23 field) -Photo Taken Yes -Epithelialization None Present -Tunneling No -Undermining/Tunneling No -Circular Undermining No -Exudate Amt Medium -Exudate Type Serosanguineous -Wound Margin Distinct, Outline Attached -Granulation Amt Small (1-33%) -Granulation Quality Red -Slough/Fibrin Yes -Necrosis Amt Large (67-100%) -Necrotic Tissue Type Adherent Slough -Texture ([place]-wound Skin Appearance) Assessed, Scarring -Moisture ([place]-wound Skin Appearance) Assessed, Maceration -Color ([place]-wound Skin Appearance) Assessed -Temperature ([place]-wound Skin No Abnormality Appearance) (Pt Warm) -Tenderness on Palpation ([place]-wound No Skin Appearance) -Ulcer Cleansing Soap and Water -Foul Odor after Cleansing No -Anesthetic Used 4% Lidocaine Solution #12- R SINCLAIR CLUSTER -Combined with other wound No -Current Size (cm) - Length 11.7 -Current Size (cm) - Width 7.6 -Current Size (cm) - Depth 0.1 -Total Square Cm 88.92 -Date of Last Picture (Recall this 05/04/23 field) -Photo Taken Yes -Epithelialization None Present -Tunneling No -Undermining/Tunneling No -Circular Undermining No -Exudate Amt Large -Exudate Type Serosanguineous -Wound Margin Distinct, Outline Attached -Granulation Amt Medium (34-66%) -Granulation Quality Red -Slough/Fibrin Yes -Necrosis Amt Medium (34-66%) -Necrotic Tissue Type Adherent Slough -Texture ([place]-wound Skin Appearance) Assessed, Scarring -Moisture ([place]-wound Skin Appearance) Assessed,Dry/ Scaly -Color ([place]-wound Skin Appearance) Assessed -Temperature ([place]wound Skin No Abnormality Appearance) (Pt Warm) -Tenderness on Palpation ([place]-wound No Skin Appearance) -Ulcer Cleansing Soap and Water -Foul Odor after Cleansing No -Anesthetic Used 4% Lidocaine Solution #11- L MED LE -Combined with other wound No -Current Size (cm) - Length 2 -Current Size (cm) - Width 2 -Current Size (cm) - Depth 0.1 -Total Square Cm 4 -Date of Last Picture (Recall this 05/04/23 field) -Photo Taken Yes -Epithelialization None Present -Tunneling No -Undermining/Tunneling No -Circular Undermining No -Exudate Amt Medium -Exudate Type Serosanguineous -Wound Margin Distinct, Outline Attached -Granulation Amt Small (1-33%) -Granulation Quality Red -Slough/Fibrin Yes -Necrosis Amt Large (67-100%) -Necrotic Tissue Type Adherent Slough -Texture ([place]wound Skin Appearance) Assessed,Callus ,Fluctuance -Moisture ([place]-wound Skin Appearance) Assessed,Dry/ Scaly -Color ([place]wound Skin Appearance) Assessed -Temperature ([place]wound Skin No Abnormality Appearance) (Pt Warm) -Tenderness on Palpation ([place]-wound No Skin Appearance) -Ulcer Cleansing Soap and Water -Foul Odor after Cleansing No -Anesthetic Used 4% Lidocaine Solution #10- L SINCLAIR CLUSTER -Combined with other wound No -Current Size (cm) - Length 3.1 -Current Size (cm) - Width 3.3 -Current Size (cm) - Depth 0.1 -Total Square Cm 10. -Date of Last Picture (Recall this 05/04/23 field) -Photo Taken Yes -Epithelialization None Present -Tunneling No -Undermining/Tunneling No -Circular Undermining No -Exudate Amt Medium -Exudate Type Serosanguineous -Wound Margin Distinct, Outline Attached -Granulation Amt Medium (34-66%) -Granulation Quality Red -Slough/Fibrin Yes -Necrosis Amt Medium (34-66%) -Necrotic Tissue Type Adherent Slough -Texture ([place]-wound Skin Appearance) Assessed, Scarring -Moisture ([place]-wound Skin Appearance) Assessed,Dry/ Scaly -Color ([place]-wound Skin Appearance) Assessed -Temperature ([place]-wound Skin No Abnormality Appearance) (Pt Warm) -Tenderness on Palpation ([place]-wound No Skin Appearance) -Ulcer Cleansing Soap and Water -Foul Odor after Cleansing No -Anesthetic Used 4% Lidocaine Solution Lower Limb Edema Present Yes Right Calf (cm) 55.8 Right Ankle (cm) 32.8 Left Calf (cm) 47.2 Left Ankle (cm) 33 - Nurse 2 - General Ulcer CM Notes Start: 05/04/23 10:26 Freq: Status: Active Protocol: Activity Type Activity Date Activity User E-sign Co-sign Detail Recorded Client Recorded Date Recorded By Document 05/04/23 11:54 EDDIE [id number] 05/04/23 11:59 EDDIE 05/04/23 11:54 Wound Center Nurse 2 #13 R MED LE -Time 11:54 -Correct Patient No -Correct Side, Site, Position No -Correct Procedure No -Procedure Performed No -Tunneling No -Undermining/Tunneling No -Circular Undermining No -Wound/Ulcer Outcome Not Healed -Ulcer Cleansing Rinsed/ Irrigated with Saline -Foul Odor after Cleansing No -Bioengineered Tissue No -Bleeding Controlled with Pressure -Treatment Response Procedure Tolerated Well -Offloading No -Debridement - Subq, 1st 20sq cm Yes #12- R SINCLAIR CLUSTER -Time 11:56 -Correct Patient Yes -Correct Side, Site, Position Yes -Correct Procedure Yes -Procedure Performed Yes -Type of Procedure Debridement -Clinical Debridement Subcutaneous -Tissue Removed Subcutaneous -Post Debridement (cm) - Length 15 -Post Debridement (cm) - Width 14 -Post Debridement (cm) - Depth 0.1 -Total Square (Post) (cm) 210 -Area of Debridement (cm) - Length 15 -Area of Debridement (cm) - Width 14 -Total Square (Area) (cm) 210 -Tunneling No -Undermining/Tunneling No -Circular Undermining No -Wound/Ulcer Outcome Not Healed -Ulcer Cleansing Rinsed/ Irrigated with Saline -Foul Odor after Cleansing No -Bioengineered Tissue No -Bleeding Controlled with Pressure -Treatment Response Procedure Tolerated Well -Offloading No -Debridement - Subq, 1st 20sq cm Yes -Debridement, SubQ, ea addt'l 20sq cm 11 or part thereof #11- L MED LE -Time 11:56 -Correct Patient Yes -Correct Side, Site, Position Yes -Correct Procedure Yes -Procedure Performed Yes -Type of Procedure Debridement -Clinical Debridement Subcutaneous -Tissue Removed Subcutaneous -Post Debridement (cm) - Length 2.0 -Post Debridement (cm) - Width 1.5 -Post Debridement (cm) - Depth 0.1 -Total Square (Post) (cm) 3.00 -Area of Debridement (cm) - Length 2.0 -Area of Debridement (cm) - Width 1.5 -Total Square (Area) (cm) 3.00 -Tunneling No -Undermining/Tunneling No -Circular Undermining No -Wound/Ulcer Outcome Not Healed -Ulcer Cleansing Rinsed/ Irrigated with Saline -Foul Odor after Cleansing No -Bioengineered Tissue No -Bleeding Controlled with Pressure -Treatment Response Procedure Tolerated Well -Offloading No -Debridement - Subq, 1st 20sq cm No #10- L SINCLAIR CLUSTER -Time 11:58 -Correct Patient Yes -Correct Side, Site, Position Yes -Correct Procedure Yes -Procedure Performed Yes -Type of Procedure Debridement -Clinical Debridement Subcutaneous -Tissue Removed Subcutaneous -Post Debridement (cm) - Length 2.5 -Post Debridement (cm) - Width 3.5 -Post Debridement (cm) - Depth 0.1 -Total Square (Post) (cm) 8.75 -Area of Debridement (cm) - Length 2.5 -Area of Debridement (cm) - Width 3.5 -Total Square (Area) (cm) 8.75 -Tunneling No -Undermining/Tunneling No -Circular Undermining No -Wound/Ulcer Outcome Not Healed -Ulcer Cleansing Rinsed/ Irrigated with Saline -Foul Odor after Cleansing No -Bioengineered Tissue No -Bleeding Controlled with Pressure -Treatment Response Procedure Tolerated Well -Offloading No -Debridement - Subq, 1st 20sq cm No Pain Scale: 0-10 Numeric Is Patient Pain Free? Yes - Nurse 3 - General Ulcer D/C NN Start: 05/04/23 10:26 Freq: Status: Active Protocol: Activity Type Activity Date Activity User E-sign Co-sign Detail Recorded Client Recorded Date Recorded By Document 05/04/23 11:46 [facility] [id number] 05/04/23 11:47 [facility] 05/04/23 11:46 Wound Care Center Nurse 3 #13 R MED LE -Ulcer Cleansing Rinsed/ Irrigated with Saline -Foul Odor after Cleansing No -Primary Dressing Applied Aquacel Extra -Other Dressing ABD -Aquacel Extra 1 #12- R SINCLA[employer] CLUSTER -Ulcer Cleansing Rinsed/ Irrigated with Saline -Foul Odor after Cleansing No -Primary Dressing Applied Aquacel Extra -Other Dressing ABD -Aquacel Extra 0 #11- L MED LE -Ulcer Cleansing Rinsed/ Irrigated with Saline -Foul Odor after Cleansing No -Primary Dressing Applied Aquacel Extra -Other Dressing ABD -Aquacel Extra 0 #10- L SINCLAIR CLUSTER -Ulcer Cleansing Rinsed/ Irrigated with Saline -Foul Odor after Cleansing No -Primary Dressing Applied Aquacel Extra -Other Dressing ABD -Aquacel Extra 0 BLE -Multi-Layered Wrap Application Multi-Layer Comp - Bilat ($ ) Treatment Response Procedure Tolerated Well Pain Scale: 0-10 Numeric Is Patient Pain Free? Yes WC - Visit Discharge Discharge Condition Stable Ambulatory Status Wheelchair Transportation ECF Other ASSISTED LIVING Additional Wound Wound debrided: Left sinclair cluster Type of Debridement: Excisional debridement Anesthesia Used: 4% Lidocaine Solution Depth: Down to and including healthy tissue and in the subcutaneous layer Percentage of wound debrided: 100 Instrument Used: 5mm curette Tissue Removed: Slough and devitalized tissue Severity: Fat Layer Exposed Amount of bleeding with debridement: Mild Bleeding Controlled with: Pressure Patient tolerated procedure: Patient tolerated procedure well Additional Wound Wound debrided: Left lower extremity (medial) Type of Debridement: Excisional debridement Anesthesia Used: 4% Lidocaine Solution Depth: Down to and including healthy tissue and in the subcutaneous layer Percentage of wound debrided: 100 Instrument Used: 5mm curette Tissue Removed: Slough and devitalized tissue Severity: Fat Layer Exposed Amount of bleeding with debridement: Mild Bleeding Controlled with: Pressure Patient tolerated procedure: Patient tolerated procedure well Charges/Coding Visit Charges Office Visits / Consults: [id number] OV L3 Est Procedures Integumentary [id number]: [id number] Jaye subq tissue 20 sq cm/< Add On Codes: [id number] Jaye subq tissue add-on (x11 centimeter debrided, please refer to clinical note) Assessment/Plan Assessment/Plan (1) Ulcer of right lower extremity with fat layer exposed: CODE(S): L97.912 - Non-pressure chronic ulcer of unspecified part of right lower leg with fat layer exposed (2) Ulcer of left lower extremity with fat layer exposed: CODE(S): L97.922 - Non-pressure chronic 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 As above, stopped using his lymphedema pump as recommended. Significant swelling noted. Aquacel extra to all open areas, cover with superabsorbent dressing. 3M wrap for edema management, change on Monday and Monday at the facility. Follow-up in a week. Consistent use of lymphedema pump very strongly recommended, patient voiced understanding. Continue other chronic wound care. His questions were answered and he was advised to call with any further questions or concerns. This note was generated with [employer] dictation software. It may contain incorrect words, spelling, and punctuation that were not noted in checking the note before signing.
[2023-05-11 10:29] VITALS: BP 121/52; PULSE 78; RESP 18; TEMP 35.9
--- NOTE | 2023-05-11 11:44 | PN.PCM_ITS ---
History of Present Illness Date of Service: 05/11/23 Chief Complaint: Bilateral lower extremity ulcers History of Wound: Mr. Boles is an 83-year-old currently residing at [facility] who presents due to nonhealing bilateral lower extremity ulceration. He was seen here a few months ago and discharged after he achieved healing. Recommendation was for continued use of his lymphedema pump however he states that this has not been used consistently. Current ulceration has been present for weeks. No chills, fever or otherwise feeling of unwell. Progress of Wound: New right medial ankle/foot ulcer. Still has significant edema. Objective Data Objective Data Vital Signs: Vital Signs Temp Pulse Resp BP O2 Del Method 96.7 F L 78 18 121/52 H Room Air 05/11/23 10:29 05/11/23 10:29 05/11/23 10:29 05/11/23 10:29 05/04/23 10:27 Oxygen Delivery Method Room Air Charges/Coding Procedures Integumentary 111xxx-113xx: 86999 Jaye subq tissue 20 sq cm/< Add On Codes: 39444 Jaye subq tissue add-on (x12. Additional square centimeter debrided, please refer to clinical note.) Physical Exam Const alert, oriented x3 and no apparent distress General Appearance: cooperative, comfortable and well kempt HEENT normocephalic and head/scalp atraumatic Eyes EOMs intact bilaterally General Eye: normal appearance of both eyes Neck full ROM General: normal visual inspection Resp normal respiratory effort Effort and Inspection: able to speak in complete sentences Extremity General Extremity: edema Skin Wounds: wounds noted Neuro oriented x3, CN's II-XII intact bilaterally, moves all extremities and no focal motor deficits Psych mental status grossly normal, thought process normal, cooperative and affect normal Debridement Note Debridement Note Wound debrided: Right sinclair cluster Type of Debridement: Excisional debridement Anesthesia Used: 5% Lidocaine Gel Depth: Down to and including healthy tissue and in the subcutaneous layer Percentage of wound debrided: 100 Instrument Used: 7mm curette Tissue Removed: Slough and devitalized tissue Severity: Fat Layer Exposed Amount of bleeding with debridement: Mild Bleeding Controlled with: Pressure Patient tolerated procedure: Patient tolerated procedure well Post-Debridement Measurements and Additional Note: Post-Debridement Measurements/Treatment JANAY - Nurse 1 - General Ulcer Assessment Start: 05/04/23 10:26 Freq: Status: Active Protocol: LINDA Activity Type Activity Date Activity User E-sign Co-sign Detail Recorded Client Recorded Date Recorded By Document 05/04/23 10:27 [facility] [id number] 05/04/23 10:42 [facility] Document 05/11/23 10:29 RB [id number] 05/11/23 10:41 RB 05/04/23 05/11/23 10:27 10:29 - Today's Visit Information Type of service Initial Visit Follow-up Visit (Physician/EVP MANAGING DIRECTOR ) Arrival Mode Wheelchair Wheelchair Transfer Assistance Other Manual Transfer Assist (Other) 2 Patient Identification Verified (Name & Yes Yes ) Patient Requires Transmission-Based No No Precautions Vital Signs Temperature (97.8 F-99.1 F) 98.3 F 96.7 F L Temperature Source Temporal Temporal Pulse Rate (60-100) 73 78 Pulse Location Monitor Monitor Respiratory Rate (12-18) 16 18 Respiratory rate source Observation Observation Oxygen Delivery Method Room Air Blood Pressure (90/60-120/80) 120/49 L 121/52 H Blood Pressure Mean (mm Hg) 72 75 Source Monitor Monitor Position Sitting Semi-Fowlers Blood Pressure Location Left Forearm Left Arm History Since Last Visit- (Skip if this is Patient's initial visit) Have you changed medications since your No last visit? Any new allergies or adverse reactions No Had a fall/change in ADL's that may No increase risk of falls Signs or symptoms of abuse and/or No neglect since last visit Have you been in the hospital since your No last visit? Has dressing in place as prescribed Yes Has compression in place as prescribed Yes Has offloadiing in place as prescribed No Experienced any changes in pain level or No management Left Footwear Custom Shoe Right Footwear Custom Shoe Pain Scale: 0-10 Numeric Is Patient Pain Free? Yes Yes - Nurse 1 - General Ulcer Measurement Start: 05/04/23 10:26 Freq: Status: Active Protocol: Activity Type Activity Date Activity User E-sign Co-sign Detail Recorded Client Recorded Date Recorded By Document 05/04/23 10:27 [facility] [id number] 05/04/23 10:42 [facility] Document 05/11/23 10:29 RB [id number] 05/11/23 10:41 RB 05/04/23 05/11/23 10:27 10:29 Wound Center Nurse 1 #13 R MED LE -Combined with other wound No -Current Size (cm) - Length 0.1 -Current Size (cm) - Width 0.1 -Current Size (cm) - Depth 0.1 -Total Square Cm 0.01 -Date of Last Picture (Recall this 05/04/23 field) -Photo Taken Yes -Epithelialization None Present -Tunneling No -Undermining/Tunneling No -Circular Undermining No -Exudate Amt Medium -Exudate Type Serosanguineous -Wound Margin Distinct, Outline Attached -Granulation Amt Small (1-33%) -Granulation Quality Red -Slough/Fibrin Yes -Necrosis Amt Large (67-100%) -Necrotic Tissue Type Adherent Slough -Texture ([place]-wound Skin Appearance) Assessed, Scarring -Moisture ([place]-wound Skin Appearance) Assessed, Maceration -Color ([place]-wound Skin Appearance) Assessed -Temperature ([place]-wound Skin No Abnormality Appearance) (Pt Warm) -Tenderness on Palpation ([place]-wound No Skin Appearance) -Ulcer Cleansing Soap and Water -Foul Odor after Cleansing No -Anesthetic Used 4% Lidocaine Solution #12- R [facility] -Combined with other wound No No -Current Size (cm) - Length 11.7 11 -Current Size (cm) - Width 7.6 7.5 -Current Size (cm) - Depth 0.1 0.1 -Total Square Cm 88.92 82.5 -Date of Last Picture (Recall this 05/04/23 field) -Photo Taken Yes -Epithelialization None Present -Tunneling No No -Undermining/Tunneling No No -Circular Undermining No No -Exudate Amt Large Large -Exudate Type Serosanguineous Serosanguineous -Wound Margin Distinct, Distinct, Outline Outline Attached Attached -Granulation Amt Medium (34-66%) Medium (34-66%) -Granulation Quality [place] -Slough/Fibrin Yes Yes -Necrosis Amt Medium (34-66%) Medium (34-66%) -Necrotic Tissue Type Adherent Slough Adherent Slough -Structure Exposed N/A -Texture ([place]-wound Skin Appearance) Assessed, Assessed Scarring -Moisture ([place]-wound Skin Appearance) Assessed,Dry/ Assessed,Dry/ Scaly Scaly -Color ([place]-wound Skin Appearance) Assessed Hemosiderin Staining -Temperature ([place]-wound Skin No Abnormality No Abnormality Appearance) (Pt Warm) (Pt Warm) -Tenderness on Palpation ([place]-wound No No Skin Appearance) -Ulcer Cleansing Soap and Water Wound Cleanser -Foul Odor after Cleansing No No -Anesthetic Used 4% Lidocaine 5% Lidocaine Solution Gel #11- L MED LE -Combined with other wound No No -Current Size (cm) - Length 2 0.1 -Current Size (cm) - Width 2 0.1 -Current Size (cm) - Depth 0.1 0.1 -Total Square Cm 4 0.01 -Date of Last Picture (Recall this 05/04/23 field) -Photo Taken Yes -Epithelialization None Present -Tunneling No No -Undermining/Tunneling No No -Circular Undermining No No -Exudate Amt Medium Large -Exudate Type Serosanguineous Serosanguineous -Wound Margin Distinct, Distinct, Outline Outline Attached Attached -Granulation Amt Small (1-33%) Medium (34-66%) -Granulation Quality [place] -Slough/Fibrin Yes Yes -Necrosis Amt Large (67-100%) Medium (34-66%) -Necrotic Tissue Type Adherent Slough Adherent Slough -Structure Exposed N/A -Texture ([place]-wound Skin Appearance) Assessed,Callus Assessed ,Fluctuance -Moisture ([place]-wound Skin Appearance) Assessed,Dry/ Assessed,Dry/ Scaly Scaly -Color ([place]-wound Skin Appearance) Assessed Hemosiderin Staining -Temperature ([place]-wound Skin No Abnormality No Abnormality Appearance) (Pt Warm) (Pt Warm) -Tenderness on Palpation ([place]-wound No No Skin Appearance) -Ulcer Cleansing Soap and Water Wound Cleanser -Foul Odor after Cleansing No No -Anesthetic Used 4% Lidocaine 5% Lidocaine Solution Gel #10- L [facility] -Combined with other wound No No -Current Size (cm) - Length 3.1 3.5 -Current Size (cm) - Width 3.3 2 -Current Size (cm) - Depth 0.1 0.1 -Total Square Cm 10.23 7.0 -Date of Last Picture (Recall this 05/04/23 field) -Photo Taken Yes -Epithelialization None Present -Tunneling No No -Undermining/Tunneling No No -Circular Undermining No No -Exudate Amt Medium Large -Exudate Type Serosanguineous Serosanguineous -Wound Margin Distinct, Distinct, Outline Outline Attached Attached -Granulation Amt Medium (34-66%) Medium (34-66%) -Granulation Quality [place] -Slough/Fibrin Yes Yes -Necrosis Amt Medium (34-66%) Medium (34-66%) -Necrotic Tissue Type Adherent Slough Adherent Slough -Structure Exposed N/A -Texture ([place]-wound Skin Appearance) Assessed, Assessed Scarring -Moisture ([place]-wound Skin Appearance) Assessed,Dry/ Assessed,Dry/ Scaly Scaly -Color ([place]-wound Skin Appearance) Assessed Hemosiderin Staining -Temperature ([place]-wound Skin No Abnormality No Abnormality Appearance) (Pt Warm) (Pt Warm) -Tenderness on Palpation ([place]-wound No No Skin Appearance) -Ulcer Cleansing Soap and Water Wound Cleanser -Foul Odor after Cleansing No No -Anesthetic Used 4% Lidocaine 5% Lidocaine Solution Gel Lower Limb Edema Present Yes Yes Right Calf (cm) 55.8 56 Right Ankle (cm) 32.8 33 Left Calf (cm) 47.2 43.5 Left Ankle (cm) 33 33 - Nurse 2 - General Ulcer CM Notes Start: 05/04/23 10:26 Freq: Status: Active Protocol: Activity Type Activity Date Activity User E-sign Co-sign Detail Recorded Client Recorded Date Recorded By Document 05/04/23 11:54 [id number] 05/04/23 11:59 Document 05/11/23 11:03 [id number] 05/11/23 11:15 05/04/23 05/11/23 11:54 11:03 Wound Center Nurse 2 #13 R MED LE -Time 11:54 -Correct Patient No -Correct Side, Site, Position No -Correct Procedure No -Procedure Performed No -Tunneling No -Undermining/Tunneling No -Circular Undermining No -Wound/Ulcer Outcome Not Healed -Ulcer Cleansing Rinsed/ Irrigated with Saline -Foul Odor after Cleansing No -Bioengineered Tissue No -Bleeding Controlled with Pressure -Treatment Response Procedure Tolerated Well -Offloading No -Debridement - Subq, 1st 20sq cm Yes 13-right medial leg -Time 11:07 -Correct Patient Yes -Correct Side, Site, Position Yes -Correct Procedure Yes -Procedure Performed Yes -Type of Procedure Debridement -Clinical Debridement Subcutaneous -Tissue Removed Subcutaneous -Post Debridement (cm) - Length 5 -Post Debridement (cm) - Width 7 -Post Debridement (cm) - Depth 0.1 -Total Square (Post) (cm) 35 -Area of Debridement (cm) - Length 5 -Area of Debridement (cm) - Width 7 -Total Square (Area) (cm) 35 -Tunneling No -Undermining/Tunneling No -Circular Undermining No -Wound/Ulcer Outcome Not Healed -Ulcer Cleansing Rinsed/ Irrigated with Saline -Foul Odor after Cleansing No -Bioengineered Tissue No -Bleeding Controlled with Pressure -Treatment Response Procedure Tolerated Well -Offloading No -Debridement - Subq, 1st 20sq cm Yes -Debridement, SubQ, ea addt'l 20sq cm 12 or part thereof #12- R [facility] -Time 11:05 -Correct Patient Yes Yes -Correct Side, Site, Position Yes Yes -Correct Procedure Yes Yes -Procedure Performed Yes Yes -Type of Procedure Debridement Debridement -Clinical Debridement Subcutaneous Subcutaneous -Tissue Removed Subcutaneous Subcutaneous -Post Debridement (cm) - Length 15 18.5 -Post Debridement (cm) - Width 14 11 -Post Debridement (cm) - Depth 0.1 0.1 -Total Square (Post) (cm) 210 203.5 -Area of Debridement (cm) - Length 15 18.5 -Area of Debridement (cm) - Width 14 11 -Total Square (Area) (cm) 210 203.5 -Tunneling No No -Undermining/Tunneling No No -Circular Undermining No No -Wound/Ulcer Outcome Not Healed Not Healed -Ulcer Cleansing Rinsed/ Rinsed/ Irrigated with Irrigated with Saline Saline -Foul Odor after Cleansing No No -Bioengineered Tissue No No -Bleeding Controlled with Pressure Pressure -Treatment Response Procedure Procedure Tolerated Well Tolerated Well -Offloading No No -Debridement - Subq, 1st 20sq cm Yes No -Debridement, SubQ, ea addt'l 20sq cm 11 or part thereof #11- L MED LE -Time 11:05 -Correct Patient Yes Yes -Correct Side, Site, Position Yes Yes -Correct Procedure Yes Yes -Procedure Performed Yes Yes -Type of Procedure Debridement Debridement -Clinical Debridement Subcutaneous Subcutaneous -Tissue Removed Subcutaneous Subcutaneous -Post Debridement (cm) - Length 2.0 0.1 -Post Debridement (cm) - Width 1.5 0.1 -Post Debridement (cm) - Depth 0.1 0.1 -Total Square (Post) (cm) 3.00 0.01 -Area of Debridement (cm) - Length 2.0 0.1 -Area of Debridement (cm) - Width 1.5 0.1 -Total Square (Area) (cm) 3.00 0.01 -Tunneling No No -Undermining/Tunneling No No -Circular Undermining No No -Wound/Ulcer Outcome Not Healed Not Healed -Ulcer Cleansing Rinsed/ Rinsed/ Irrigated with Irrigated with Saline Saline -Foul Odor after Cleansing No No -Bioengineered Tissue No No -Bleeding Controlled with Pressure Pressure -Treatment Response Procedure Procedure Tolerated Well Tolerated Well -Offloading No No -Debridement - Subq, 1st 20sq cm No No #10- L [facility] -Time 11:58 11:05 -Correct Patient Yes Yes -Correct Side, Site, Position Yes Yes -Correct Procedure Yes Yes -Procedure Performed Yes Yes -Type of Procedure Debridement Debridement -Clinical Debridement Subcutaneous Subcutaneous -Tissue Removed Subcutaneous Subcutaneous -Post Debridement (cm) - Length 2.5 4.5 -Post Debridement (cm) - Width 3.5 3.0 -Post Debridement (cm) - Depth 0.1 0.1 -Total Square (Post) (cm) 8.75 13.50 -Area of Debridement (cm) - Length 2.5 4.5 -Area of Debridement (cm) - Width 3.5 3.0 -Total Square (Area) (cm) 8.75 13.50 -Tunneling No No -Undermining/Tunneling No No -Circular Undermining No No -Wound/Ulcer Outcome Not Healed Not Healed -Ulcer Cleansing Rinsed/ Rinsed/ Irrigated with Irrigated with Saline Saline -Foul Odor after Cleansing No No -Bioengineered Tissue No No -Bleeding Controlled with Pressure Pressure -Treatment Response Procedure Procedure Tolerated Well Tolerated Well -Offloading No No -Debridement - Subq, 1st 20sq cm No No Pain Scale: 0-10 Numeric Is Patient Pain Free? Yes Yes WC - Nurse 3 - General Ulcer D/C NN Start: 05/04/23 10:26 Freq: Status: Active Protocol: Activity Type Activity Date Activity User E-sign Co-sign Detail Recorded Client Recorded Date Recorded By Document 05/04/23 11:46 BMF [id number] 05/04/23 11:47 BM Document 05/11/23 11:23 [id number] 05/11/23 11:35 KW 05/04/23 05/11/23 11:46 11:23 Wound Care Center Nurse 3 #13 R MED LE -Ulcer Cleansing Rinsed/ Irrigated with Saline -Foul Odor after Cleansing No -Primary Dressing Applied Aquacel Extra -Other Dressing ABD -Aquacel Extra 1 13-right medial leg -Ulcer Cleansing Rinsed/ Irrigated with Saline -Primary Dressing Applied Optilok 6.5x10 -Primary Dressing Covered/Secured with Dry Gauze,Dry Gauze & Roll Gauze,Secured with Tape -Optilok 6.5x10 1 #12- R [facility] -Ulcer Cleansing Rinsed/ Irrigated with Saline -Foul Odor after Cleansing No -Primary Dressing Applied Aquacel Extra Optilok 6.5x10 -Other Dressing ABD -Primary Dressing Covered/Secured with Dry Gauze,Dry Gauze & Roll Gauze,Secured with Tape -Aquacel Extra 0 -Optilok 6.5x10 1 #11- L MED LE -Ulcer Cleansing Rinsed/ Irrigated with Saline -Foul Odor after Cleansing No -Primary Dressing Applied Aquacel Extra Optilok 6.5x10 -Other Dressing ABD -Primary Dressing Covered/Secured with Dry Gauze,Dry Gauze & Roll Gauze,Secured with Tape -Aquacel Extra 0 -Optilok 6.5x10 1 #10- L [facility] -Ulcer Cleansing Rinsed/ Irrigated with Saline -Foul Odor after Cleansing No -Primary Dressing Applied Aquacel Extra -Other Dressing ABD -Primary Dressing Covered/Secured with Dry Gauze,Dry Gauze & Roll Gauze,Secured with Tape -Aquacel Extra 0 BLE -Multi-Layered Wrap Application Multi-Layer Multi-Layer Comp - Bilat ($ Comp - Right ($ ) ) Treatment Response Procedure Tolerated Well Pain Scale: 0-10 Numeric Is Patient Pain Free? Yes Yes WC - Visit Discharge Discharge Condition Stable Stable Ambulatory Status Wheelchair Walker, Wheelchair Transportation ECF Private Auto Medication Reconcilliation completed & No provided to patient/care provider Clinical Summary of Care Provided Yes Other ASSISTED LIVING Additional Wound Wound debrided: Left sinclair cluster Type of Debridement: Excisional debridement Anesthesia Used: 5% Lidocaine Gel Depth: Down to and including healthy tissue and in the subcutaneous layer Percentage of wound debrided: 100 Instrument Used: 5mm curette Tissue Removed: Slough and devitalized tissue Severity: Fat Layer Exposed Amount of bleeding with debridement: Mild Bleeding Controlled with: Pressure Patient tolerated procedure: Patient tolerated procedure well Additional Wound Wound debrided: Right medial ankle/foot Type of Debridement: Excisional debridement Anesthesia Used: 5% Lidocaine Gel Depth: Down to and including healthy tissue and in the subcutaneous layer Percentage of wound debrided: 100 Instrument Used: 5mm curette Tissue Removed: Slough and devitalized tissue Severity: Fat Layer Exposed Amount of bleeding with debridement: Mild Bleeding Controlled with: Pressure Patient tolerated procedure: Patient tolerated procedure well Assessment/Plan Assessment/Plan (1) Ulcer of right lower extremity with fat layer exposed: CODE(S): L97.912 - Non-pressure chronic ulcer of unspecified part of right lower leg with fat layer exposed (2) Ulcer of left lower extremity with fat layer exposed: CODE(S): L97.922 - Non-pressure chronic 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 Left medial lower extremity also with minimal area left. Still has significant edema. New right medial ankle/foot ulcer. Continue Aquacel extra to all open areas, cover with superabsorbent dressing. 3M wrap for edema management, change on Monday and Monday at the facility. Follow-up in a week. Consistent use of lymphedema pump very strongly recommended, patient voiced understanding. Continue other chronic wound care. His questions were answered and he was advised to call with any further questions or concerns. This note was generated with ePARation software. It may contain incorrect words, spelling, and punctuation that were not noted in checking the note before signing.
[2023-05-18 09:38] VITALS: BP 138/56; PULSE 81; RESP 18; TEMP 36.2
--- NOTE | 2023-05-18 10:54 | PCM.WC.PN ---
History of Present Illness Date of Service: 05/18/23 Chief Complaint: Bilateral lower extremity ulcers History of Wound: Mr. Boles is an 83-year-old currently residing at [facility] who presents due to nonhealing bilateral lower extremity ulceration. He was seen here a few months ago and discharged after he achieved healing. Recommendation was for continued use of his lymphedema pump however he states that this has not been used consistently. Current ulceration has been present for weeks. No chills, fever or otherwise feeling of unwell. Progress of Wound: Still has significant edema and drainage which pools at the bottom. He states that his stockings get quite wet from drainage. Does not always use pumps twice a day. Objective Data Objective Data Vital Signs: Vital Signs Temp Pulse Resp BP O2 Del Method 97.1 F L 81 18 138/56 H Room Air 05/18/23 09:38 05/18/23 09:38 05/18/23 09:38 05/18/23 09:38 05/18/23 09:38 Oxygen Delivery Method Room Air Charges/Coding Procedures Integumentary 111xxx-113xx: 71072 Jaye subq tissue 20 sq cm/< Add On Codes: 77098 Jaye subq tissue add-on (x14. Additional square centimeter debrided, please refer to clinical note.) Physical Exam Const alert, oriented x3 and no apparent distress General Appearance: cooperative, comfortable and well kempt HEENT normocephalic and head/scalp atraumatic Eyes EOMs intact bilaterally General Eye: normal appearance of both eyes Neck full ROM General: normal visual inspection Resp normal respiratory effort Effort and Inspection: able to speak in complete sentences Extremity General Extremity: edema Skin Wounds: wounds noted Neuro oriented x3, CN's II-XII intact bilaterally, moves all extremities and no focal motor deficits Psych mental status grossly normal, thought process normal, cooperative and affect normal Debridement Note Debridement Note Wound debrided: Right sinclair cluster Type of Debridement: Excisional debridement Anesthesia Used: 5% Lidocaine Gel Depth: Down to and including healthy tissue and in the subcutaneous layer Percentage of wound debrided: 100 Instrument Used: 7mm curette Tissue Removed: Slough and devitalized tissue Severity: Fat Layer Exposed Amount of bleeding with debridement: Mild Bleeding Controlled with: Pressure Patient tolerated procedure: Patient tolerated procedure well Post-Debridement Measurements and Additional Note: Post-Debridement Measurements/Treatment WC - Nurse 1 - General Ulcer Assessment Start: 05/04/23 10:26 Freq: Status: Active Protocol: JANAY.NAVID Activity Type Activity Date Activity User E-sign Co-sign Detail Recorded Client Recorded Date Recorded By Document 05/04/23 10:27 [facility] [id number] 05/04/23 10:42 BM Document 05/11/23 10:29 RB [id number] 05/11/23 10:41 RB Document 05/18/23 09:38 [facility] Desktop 05/18/23 09:47 BMF 05/04/23 05/11/23 05/18/23 10:27 10:29 09:38 - Today's Visit Information Type of service Initial Visit Follow-up Visit Follow-up Visit (Physician/FIBERGLASS TECHNICIAN (Physician/FIBERGLASS TECHNICIAN ) ) Arrival Mode Wheelchair Wheelchair Wheelchair Transfer Assistance Other Manual Transfer Assist (Other) 2 Patient Identification Verified (Name & Yes Yes Yes ) Patient Requires Transmission-Based No No Precautions Safety Precautions Fall Prevention Vital Signs Temperature (97.8 F-99.1 F) 98.3 F 96.7 F L 97.1 F L Temperature Source Temporal Temporal Temporal Pulse Rate (60-100) 73 78 81 Pulse Location Monitor Monitor Monitor Respiratory Rate (12-18) 16 18 18 Respiratory rate source Observation Observation Observation Oxygen Delivery Method Room Air Room Air Blood Pressure (90/60-120/80) 120/49 L 121/52 H 138/56 H Blood Pressure Mean (mm Hg) 72 75 83 Source Monitor Monitor Monitor Position Sitting Semi-Fowlers Semi-Fowlers Blood Pressure Location Left Forearm Left Arm Left Arm History Since Last Visit- (Skip if this is Patient's initial visit) Have you changed medications since your No No last visit? Any new allergies or adverse reactions No No Had a fall/change in ADL's that may No No increase risk of falls Signs or symptoms of abuse and/or No No neglect since last visit Have you been in the hospital since your No No last visit? Has dressing in place as prescribed Yes Yes Has compression in place as prescribed Yes Yes Has offloadiing in place as prescribed No N/A Experienced any changes in pain level or No No management Left Footwear Custom Shoe Custom Shoe Right Footwear Custom Shoe Custom Shoe Pain Scale: 0-10 Numeric Is Patient Pain Free? Yes Yes Yes WC - Nurse 1 - General Ulcer Measurement Start: 05/04/23 10:26 Freq: Status: Active Protocol: Activity Type Activity Date Activity User E-sign Co-sign Detail Recorded Client Recorded Date Recorded By Document 05/04/23 10:27 [facility] [id number] 05/04/23 10:42 BM Document 05/11/23 10:29 RB [id number] 05/11/23 10:41 RB Document 05/18/23 09:38 [facility] Desktop 05/18/23 09:47 BM 05/04/23 05/11/23 05/18/23 10:27 10:29 09:38 Wound Center Nurse 1 #13 R MED LE -Combined with other wound No -Current Size (cm) - Length 0.1 -Current Size (cm) - Width 0.1 -Current Size (cm) - Depth 0.1 -Total Square Cm 0.01 -Date of Last Picture (Recall this 05/04/23 field) -Photo Taken Yes -Epithelialization None Present -Tunneling No -Undermining/Tunneling No -Circular Undermining No -Exudate Amt Medium -Exudate Type Serosanguineous -Wound Margin Distinct, Outline Attached -Granulation Amt Small (1-33%) -Granulation Quality Red -Slough/Fibrin Yes -Necrosis Amt Large (67-100%) -Necrotic Tissue Type Adherent Slough -Texture ([place]-wound Skin Appearance) Assessed, Scarring -Moisture ([place]-wound Skin Appearance) Assessed, Maceration -Color ([place]-wound Skin Appearance) Assessed -Temperature ([place]-wound Skin No Abnormality Appearance) (Pt Warm) -Tenderness on Palpation ([place]-wound No Skin Appearance) -Ulcer Cleansing Soap and Water -Foul Odor after Cleansing No -Anesthetic Used 4% Lidocaine Solution 13-right medial leg -Combined with other wound No -Current Size (cm) - Length 0.1 -Current Size (cm) - Width 0.1 -Current Size (cm) - Depth 0.1 -Total Square Cm 0.01 -Epithelialization Large 67-100% #12- R [facility] [employer] -Combined with other wound No No No -Current Size (cm) - Length 11.7 11 9.4 -Current Size (cm) - Width 7.6 7.5 6 -Current Size (cm) - Depth 0.1 0.1 0.1 -Total Square Cm 88.92 82.5 56.4 -Date of Last Picture (Recall this 05/04/23 field) -Photo Taken Yes -Epithelialization None Present -Tunneling No No -Undermining/Tunneling No No -Circular Undermining No No -Exudate Amt Large Large -Exudate Type Serosanguineous Serosanguineous -Wound Margin Distinct, Distinct, Outline Outline Attached Attached -Granulation Amt Medium (34-66%) Medium (34-66%) -Granulation Quality Red [place] -Slough/Fibrin Yes Yes -Necrosis Amt Medium (34-66%) Medium (34-66%) -Necrotic Tissue Type Adherent Slough Adherent Slough -Structure Exposed N/A -Texture ([place]-wound Skin Appearance) Assessed, Assessed Scarring -Moisture ([place]-wound Skin Appearance) Assessed,Dry/ Assessed,Dry/ Scaly Scaly -Color ([place]-wound Skin Appearance) Assessed Hemosiderin Staining -Temperature ([place]-wound Skin No Abnormality No Abnormality Appearance) (Pt Warm) (Pt Warm) -Tenderness on Palpation ([place]-wound No No Skin Appearance) -Ulcer Cleansing Soap and Water Wound Cleanser -Foul Odor after Cleansing No No -Anesthetic Used 4% Lidocaine 5% Lidocaine Solution Gel #11- L MED LE -Combined with other wound No No No -Current Size (cm) - Length 2 0.1 0.1 -Current Size (cm) - Width 2 0.1 0.1 -Current Size (cm) - Depth 0.1 0.1 0.1 -Total Square Cm 4 0.01 0.01 -Date of Last Picture (Recall this 05/04/23 field) -Photo Taken Yes -Epithelialization None Present Large 67-100% -Tunneling No No -Undermining/Tunneling No No -Circular Undermining No No -Exudate Amt Medium Large -Exudate Type Serosanguineous Serosanguineous -Wound Margin Distinct, Distinct, Outline Outline Attached Attached -Granulation Amt Small (1-33%) Medium (34-66%) -Granulation Quality Red [place] -Slough/Fibrin Yes Yes -Necrosis Amt Large (67-100%) Medium (34-66%) -Necrotic Tissue Type Adherent Slough Adherent Slough -Structure Exposed N/A -Texture ([place]-wound Skin Appearance) Assessed,Callus Assessed ,Fluctuance -Moisture ([place]-wound Skin Appearance) Assessed,Dry/ Assessed,Dry/ Scaly Scaly -Color ([place]-wound Skin Appearance) Assessed Hemosiderin Staining -Temperature ([place]-wound Skin No Abnormality No Abnormality Appearance) (Pt Warm) (Pt Warm) -Tenderness on Palpation ([place]-wound No No Skin Appearance) -Ulcer Cleansing Soap and Water Wound Cleanser -Foul Odor after Cleansing No No -Anesthetic Used 4% Lidocaine 5% Lidocaine Solution Gel #10- L [facility] [employer] -Combined with other wound No No No -Current Size (cm) - Length 3.1 3.5 5 -Current Size (cm) - Width 3.3 2 3.4 -Current Size (cm) - Depth 0.1 0.1 0.1 -Total Square Cm 10.23 7.0 17.0 -Date of Last Picture (Recall this 05/04/23 field) -Photo Taken Yes -Epithelialization None Present -Tunneling No No -Undermining/Tunneling No No -Circular Undermining No No -Exudate Amt Medium Large -Exudate Type Serosanguineous Serosanguineous -Wound Margin Distinct, Distinct, Outline Outline Attached Attached -Granulation Amt Medium (34-66%) Medium (34-66%) -Granulation Quality Red [place] -Slough/Fibrin Yes Yes -Necrosis Amt Medium (34-66%) Medium (34-66%) -Necrotic Tissue Type Adherent Slough Adherent Slough -Structure Exposed N/A -Texture ([place]-wound Skin Appearance) Assessed, Assessed Scarring -Moisture ([place]-wound Skin Appearance) Assessed,Dry/ Assessed,Dry/ Scaly Scaly -Color ([place]-wound Skin Appearance) Assessed Hemosiderin Staining -Temperature ([place]-wound Skin No Abnormality No Abnormality Appearance) (Pt Warm) (Pt Warm) -Tenderness on Palpation ([place]-wound No No Skin Appearance) -Ulcer Cleansing Soap and Water Wound Cleanser -Foul Odor after Cleansing No No -Anesthetic Used 4% Lidocaine 5% Lidocaine Solution Gel Lower Limb Edema Present Yes Yes Yes Right Calf (cm) 55.8 56 55 Right Ankle (cm) 32.8 33 32.5 Left Calf (cm) 47.2 43.5 48 Left Ankle (cm) 33 33 33.4 WC - Nurse 2 - General Ulcer CM Notes Start: 05/04/23 10:26 Freq: Status: Active Protocol: Activity Type Activity Date Activity User E-sign Co-sign Detail Recorded Client Recorded Date Recorded By Document 05/04/23 11:54 EDDIE [id number] 05/04/23 11:59 JF Document 05/11/23 11:03 EDDIE [id number] 05/11/23 11:15 JF Document 05/18/23 09:51 JF Desktop 05/18/23 10:08 Edit Result 05/18/23 09:51 JF (1) [id number] 05/18/23 10:11 JF (1) #11- L MED LE - Debridement, Open, ea addt'l 20sq cm 1 => or part thereof #10- L [facility] [employer] - Debridement - Open, 1st 20sq cm Yes => No - Debridement, Open, ea addt'l 20sq cm 1 => or part thereof 05/04/23 05/11/23 05/18/23 11:54 11:03 09:51 Wound Center Nurse 2 #13 R MED LE -Time 11:54 -Correct Patient No -Correct Side, Site, Position No -Correct Procedure No -Procedure Performed No -Tunneling No -Undermining/Tunneling No -Circular Undermining No -Wound/Ulcer Outcome Not Healed -Ulcer Cleansing Rinsed/ Irrigated with Saline -Foul Odor after Cleansing No -Bioengineered Tissue No -Bleeding Controlled with Pressure -Treatment Response Procedure Tolerated Well -Offloading No -Debridement - Subq, 1st 20sq cm Yes 13-right medial leg -Time 11:07 09:52 -Correct Patient Yes Yes -Correct Side, Site, Position Yes Yes -Correct Procedure Yes Yes -Procedure Performed Yes Yes -Type of Procedure Debridement Debridement -Clinical Debridement Subcutaneous Subcutaneous -Tissue Removed Subcutaneous Subcutaneous -Post Debridement (cm) - Length 5 6.5 -Post Debridement (cm) - Width 7 8.0 -Post Debridement (cm) - Depth 0.1 0.1 -Total Square (Post) (cm) 35 52.00 -Area of Debridement (cm) - Length 5 6.5 -Area of Debridement (cm) - Width 7 8.0 -Total Square (Area) (cm) 35 52.00 -Tunneling No No -Undermining/Tunneling No No -Circular Undermining No No -Wound/Ulcer Outcome Not Healed Not Healed -Ulcer Cleansing Rinsed/ Rinsed/ Irrigated with Irrigated with Saline Saline -Foul Odor after Cleansing No No -Bioengineered Tissue No No -Bleeding Controlled with Pressure Pressure -Treatment Response Procedure Procedure Tolerated Well Tolerated Well -Offloading No No -Debridement - Subq, 1st 20sq cm Yes No -Debridement, SubQ, ea addt'l 20sq cm 12 or part thereof #12- R [facility] -Time 11: 11:05 10:00 -Correct Patient Yes Yes Yes -Correct Side, Site, Position Yes Yes Yes -Correct Procedure Yes Yes Yes -Procedure Performed Yes Yes Yes -Type of Procedure Debridement Debridement Debridement -Clinical Debridement Subcutaneous Subcutaneous Subcutaneous -Tissue Removed Subcutaneous Subcutaneous Subcutaneous -Post Debridement (cm) - Length 15 18.5 18 -Post Debridement (cm) - Width 14 11 11 -Post Debridement (cm) - Depth 0.1 0.1 0.1 -Total Square (Post) (cm) 210 203.5 198 -Area of Debridement (cm) - Length 15 18.5 18 -Area of Debridement (cm) - Width 14 11 11 -Total Square (Area) (cm) 210 203.5 198 -Tunneling No No No -Undermining/Tunneling No No No -Circular Undermining No No No -Wound/Ulcer Outcome Not Healed Not Healed Not Healed -Ulcer Cleansing Rinsed/ Rinsed/ Rinsed/ Irrigated with Irrigated with Irrigated with Saline Saline Saline -Foul Odor after Cleansing No No No -Bioengineered Tissue No No No -Bleeding Controlled with Pressure Pressure Pressure -Treatment Response Procedure Procedure Procedure Tolerated Well Tolerated Well Tolerated Well -Offloading No No No -Debridement - Subq, 1st 20sq cm Yes No Yes -Debridement, SubQ, ea addt'l 20sq cm 11 12 or part thereof #11- L MED LE -Time 11:05 10:03 -Correct Patient Yes Yes Yes -Correct Side, Site, Position Yes Yes Yes -Correct Procedure Yes Yes Yes -Procedure Performed Yes Yes Yes -Type of Procedure Debridement Debridement Debridement -Clinical Debridement Subcutaneous Subcutaneous Epidermis / Dermis -Tissue Removed Subcutaneous Subcutaneous Epidermis, Dermis -Post Debridement (cm) - Length 2.0 0.1 0.1 -Post Debridement (cm) - Width 1.5 0.1 0.1 -Post Debridement (cm) - Depth 0.1 0.1 0.1 -Total Square (Post) (cm) 3.00 0.01 0.01 -Area of Debridement (cm) - Length 2.0 0.1 0.1 -Area of Debridement (cm) - Width 1.5 0.1 0.1 -Total Square (Area) (cm) 3.00 0.01 0.01 -Tunneling No No No -Undermining/Tunneling No No No -Circular Undermining No No No -Wound/Ulcer Outcome Not Healed Not Healed Not Healed -Ulcer Cleansing Rinsed/ Rinsed/ Rinsed/ Irrigated with Irrigated with Irrigated with Saline Saline Saline -Foul Odor after Cleansing No No No -Bioengineered Tissue No No No -Bleeding Controlled with Pressure Pressure Pressure -Treatment Response Procedure Procedure Procedure Tolerated Well Tolerated Well Tolerated Well -Offloading No No No -Debridement - Open, 1st 20sq cm Yes -Debridement - Subq, 1st 20sq cm No No No #10- L [facility] -Time 11:58 11:05 10:04 -Correct Patient Yes Yes Yes -Correct Side, Site, Position Yes Yes Yes -Correct Procedure Yes Yes Yes -Procedure Performed Yes Yes Yes -Type of Procedure Debridement Debridement Debridement -Clinical Debridement Subcutaneous Subcutaneous Epidermis / Dermis -Tissue Removed Subcutaneous Subcutaneous Epidermis, Dermis -Post Debridement (cm) - Length 2.5 4.5 5.5 -Post Debridement (cm) - Width 3.5 3.0 3.5 -Post Debridement (cm) - Depth 0.1 0.1 0.1 -Total Square (Post) (cm) 8.75 13.50 19.25 -Area of Debridement (cm) - Length 2.5 4.5 5.5 -Area of Debridement (cm) - Width 3.5 3.0 3.5 -Total Square (Area) (cm) 8.75 13.50 19.25 -Tunneling No No No -Undermining/Tunneling No No No -Circular Undermining No No No -Wound/Ulcer Outcome Not Healed Not Healed Not Healed -Ulcer Cleansing Rinsed/ Rinsed/ Rinsed/ Irrigated with Irrigated with Irrigated with Saline Saline Saline -Foul Odor after Cleansing No No No -Bioengineered Tissue No No No -Bleeding Controlled with Pressure Pressure Pressure -Treatment Response Procedure Procedure Procedure Tolerated Well Tolerated Well Tolerated Well -Offloading No No No -Debridement - Open, 1st 20sq cm No -Debridement - Subq, 1st 20sq cm No No No Pain Scale: 0-10 Numeric Is Patient Pain Free? Yes Yes Yes WC - Nurse 3 - General Ulcer D/C NN Start: 05/04/23 10:26 Freq: Status: Active Protocol: Activity Type Activity Date Activity User E-sign Co-sign Detail Recorded Client Recorded Date Recorded By Document 05/04/23 11:46 [facility] [id number] 05/04/23 11:47 [facility] Document 05/11/23 11:23 [id number] 05/11/23 11:35 Document 05/18/23 10:25 [facility] Desktop 05/18/23 10:26 [facility] 05/04/23 05/11/23 05/18/23 11:46 11:23 10:25 Wound Care Center Nurse 3 #13 R MED LE -Ulcer Cleansing Rinsed/ Irrigated with Saline -Foul Odor after Cleansing No -Primary Dressing Applied Aquacel Extra -Other Dressing ABD -Aquacel Extra 1 13-right medial leg -Ulcer Cleansing Rinsed/ Rinsed/ Irrigated with Irrigated with Saline Saline -Negative Pressure Wound Therapy Discontinue -Primary Dressing Applied Optilok 6.5x10 Aquacel Extra -Other Dressing abd -Primary Dressing Covered/Secured with Dry Gauze,Dry Dry Gauze & Gauze & Roll Roll Gauze, Gauze,Secured Secured with with Tape Tape -Aquacel Extra 2 -Optilok 6.5x10 1 #12- R [facility] [employer] -Ulcer Cleansing Rinsed/ Rinsed/ Irrigated with Irrigated with Saline Saline -Foul Odor after Cleansing No No -Primary Dressing Applied Aquacel Extra Optilok 6.5x10 Aquacel Extra -Other Dressing ABD abd -Primary Dressing Covered/Secured with Dry Gauze,Dry Dry Gauze & Gauze & Roll Roll Gauze, Gauze,Secured Secured with with Tape Tape -Aquacel Extra 0 0 -Optilok 6.5x10 1 #11- L MED LE -Ulcer Cleansing Rinsed/ Rinsed/ Irrigated with Irrigated with Saline Saline -Foul Odor after Cleansing No No -Primary Dressing Applied Aquacel Extra Optilok 6.5x10 Aquacel Extra -Other Dressing ABD abd -Primary Dressing Covered/Secured with Dry Gauze,Dry Dry Gauze & Gauze & Roll Roll Gauze, Gauze,Secured Secured with with Tape Tape -Aquacel Extra 0 0 -Optilok 6.5x10 1 #10- L [facility] [employer] -Ulcer Cleansing Rinsed/ Rinsed/ Irrigated with Irrigated with Saline Saline -Foul Odor after Cleansing No No -Primary Dressing Applied Aquacel Extra Aquacel Extra -Other Dressing ABD abd -Primary Dressing Covered/Secured with Dry Gauze,Dry Dry Gauze & Gauze & Roll Roll Gauze, Gauze,Secured Secured with with Tape Tape -Aquacel Extra 0 0 BLE -Multi-Layered Wrap Application Multi-Layer Multi-Layer Comp - Bilat ($ Comp - Right ($ ) ) -Compression Wrap Surepress ($) Treatment Response Procedure Procedure Tolerated Well Tolerated Well Pain Scale: 0-10 Numeric Is Patient Pain Free? Yes Yes Yes WC - Visit Discharge Discharge Condition Stable Stable Stable Ambulatory Status Wheelchair Walker, Wheelchair Wheelchair Transportation ECF Private Auto ecf Medication Reconcilliation completed & No provided to patient/care provider Clinical Summary of Care Provided Yes Facility Type Custodial Care Facility Other [facility] Additional Wound Wound debrided: Right Medial Ankle Type of Debridement: Excisional debridement Anesthesia Used: 4% Lidocaine Solution Depth: Down to and including healthy tissue and in the subcutaneous layer Percentage of wound debrided: 100 Instrument Used: 5mm curette Tissue Removed: Slough and devitalized tissue Severity: Fat Layer Exposed Amount of bleeding with debridement: Mild Bleeding Controlled with: Pressure Patient tolerated procedure: Patient tolerated procedure well Additional Wound Wound debrided: Left sinclair cluster Type of Debridement: Excisional debridement Anesthesia Used: 5% Lidocaine Gel Depth: Down to and including healthy tissue Percentage of wound debrided: 100 Instrument Used: 5mm curette Tissue Removed: Devitalized tissue Severity: Limited To Skin Breakdown Amount of bleeding with debridement: Mild Bleeding Controlled with: Pressure Patient tolerated procedure: Patient tolerated procedure well Assessment/Plan Assessment/Plan (1) Ulcer of right lower extremity with fat layer exposed: CODE(S): L97.912 - Non-pressure chronic ulcer of unspecified part of right lower leg with fat layer exposed (2) Ulcer of left lower extremity with fat layer exposed: CODE(S): L97.922 - Non-pressure chronic 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 Left medial lower extremity also with minimal Continue Aquacel extra to all open areas, cover with superabsorbent dressing. Change 2x daily and prn. Surepress for edema management. Follow-up in a week. Consistent use of lymphedema pump very strongly recommended, patient voiced understanding. Continue other chronic wound care. His questions were answered and he was advised to call with any further questions or concerns. This note was generated with [employer]Me dictation software. It may contain incorrect words, spelling, and punctuation that were not noted in checking the note before signing.
[2023-05-25 10:08] VITALS: BP 115/55; PULSE 75; RESP 18; TEMP 36.7
--- NOTE | 2023-05-25 11:32 | PCM.WC.PN ---
History of Present Illness Date of Service: 05/25/23 Chief Complaint: Bilateral lower extremity ulcers History of Wound: Mr. Boles is an 83-year-old currently residing at [facility] who presents due to nonhealing bilateral lower extremity ulceration. He was seen here a few months ago and discharged after he achieved healing. Recommendation was for continued use of his lymphedema pump however he states that this has not been used consistently. Current ulceration has been present for weeks. No chills, fever or otherwise feeling of unwell. Progress of Wound: Some improvement in edema. No new concerns reported. Recommendation was for twice daily dressing changes but its been done daily. Objective Data Objective Data Vital Signs: Vital Signs Temp Pulse Resp BP O2 Del Method 98.1 F 75 18 115/55 L Room Air 05/25/23 10:08 05/25/23 10:08 05/25/23 10:08 05/25/23 10:08 05/25/23 10:08 Oxygen Delivery Method Room Air Lab / Micro Data Micro: Microbiology 05/18/23 10:00 Wound - Ankle Gram Stain - Final 05/18/23 10:00 Wound - Ankle Wound Culture - Final Proteus mirabilis Enterococcus faecalis Staphylococcus aureus 05/18/23 10:00 Wound - Ankle Anaerobic Culture - Final Prevotella bivia Charges/Coding Procedures Integumentary 111xxx-113xx: [id number] Jaye subq tissue 20 sq cm/< Add On Codes: 97889 Jaye subq tissue add-on (x13. Additional square centimeter debrided, please refer to clinical note.) Physical Exam Const alert, oriented x3 and no apparent distress General Appearance: cooperative, comfortable and well kempt HEENT normocephalic and head/scalp atraumatic Eyes EOMs intact bilaterally General Eye: normal appearance of both eyes Neck full ROM General: normal visual inspection Resp normal respiratory effort Effort and Inspection: able to speak in complete sentences Extremity General Extremity: edema Skin Wounds: wounds noted Neuro oriented x3, CN's II-XII intact bilaterally, moves all extremities and no focal motor deficits Psych mental status grossly normal, thought process normal, cooperative and affect normal Debridement Note Debridement Note Wound debrided: Right sinclair cluster Type of Debridement: Excisional debridement Anesthesia Used: 5% Lidocaine Gel Depth: Down to and including healthy tissue and in the subcutaneous layer Percentage of wound debrided: 100 Instrument Used: 7mm curette Tissue Removed: Slough and devitalized tissue Severity: Fat Layer Exposed Amount of bleeding with debridement: Mild Bleeding Controlled with: Pressure Patient tolerated procedure: Patient tolerated procedure well Post-Debridement Measurements and Additional Note: Post-Debridement Measurements/Treatment - Nurse 1 - General Ulcer Assessment Start: 05/04/23 10:26 Freq: Status: Active Protocol: JANAY.[email or web address] Activity Type Activity Date Activity User E-sign Co-sign Detail Recorded Client Recorded Date Recorded By Document 05/04/23 10:27 [facility] [id number] 05/04/23 10:42 BM Document 05/11/23 10:29 RB [id number] 05/11/23 10:41 RB Document 05/18/23 09:38 [facility] Desktop 05/18/23 09:47 BM Document 05/25/23 10:08 RB Desktop 05/25/23 10:23 RB 05/04/23 05/11/23 05/18/23 10:27 10:29 09:38 - Today's Visit Information Type of service Initial Visit Follow-up Visit Follow-up Visit (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 (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 ) ) Arrival Mode Wheelchair Wheelchair Wheelchair Transfer Assistance Other Manual Transfer Assist (Other) 2 Patient Identification Verified (Name & Yes Yes Yes ) Patient Requires Transmission-Based No No Precautions Safety Precautions Fall Prevention Vital Signs Temperature (97.8 F-99.1 F) 98.3 F 96.7 F L 97.1 F L Temperature Source Temporal Temporal Temporal Pulse Rate (60-100) 73 78 81 Pulse Location Monitor Monitor Monitor Respiratory Rate (12-18) 16 18 18 Respiratory rate source Observation Observation Observation Oxygen Delivery Method Room Air Room Air Blood Pressure (90/60-120/80) 120/49 L 121/52 H 138/56 H Blood Pressure Mean (mm Hg) 72 75 83 Source Monitor Monitor Monitor Position Sitting Semi-Fowlers Semi-Fowlers Blood Pressure Location Left Forearm Left Arm Left Arm History Since Last Visit- (Skip if this is Patient's initial visit) Have you changed medications since your No No last visit? Any new allergies or adverse reactions No No Had a fall/change in ADL's that may No No increase risk of falls Signs or symptoms of abuse and/or No No neglect since last visit Have you been in the hospital since your No No last visit? Has dressing in place as prescribed Yes Yes Has compression in place as prescribed Yes Yes Has offloadiing in place as prescribed No N/A Experienced any changes in pain level or No No management Left Footwear Custom Shoe Custom Shoe Right Footwear Custom Shoe Custom Shoe Pain Scale: 0-10 Numeric Is Patient Pain Free? 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 ) Arrival Mode Wheelchair Transfer Assistance Manual Transfer Assist (Other) Patient Identification Verified (Name & Yes ) Patient Requires Transmission-Based No Precautions Safety Precautions Vital Signs Temperature (97.8 F-99.1 F) 98.1 F Temperature Source Temporal Pulse Rate (60-100) 75 Pulse Location Monitor Respiratory Rate (12-18) 18 Respiratory rate source Observation Oxygen Delivery Method Room Air Blood Pressure (90/60-120/80) 115/55 L Blood Pressure Mean (mm Hg) 75 Source Monitor Position Semi-Fowlers Blood Pressure Location Left Arm History Since Last Visit- (Skip if this is Patient's initial visit) Have you changed medications since your No last visit? Any new allergies or adverse reactions No Had a fall/change in ADL's that may No increase risk of falls Signs or symptoms of abuse and/or No neglect since last visit Have you been in the hospital since your No last visit? Has dressing in place as prescribed Yes Has compression in place as prescribed Yes Has offloadiing in place as prescribed No Experienced any changes in pain level or No management Left Footwear Custom Shoe Right Footwear Custom Shoe Pain Scale: 0-10 Numeric Is Patient Pain Free? Yes - Nurse 1 - General Ulcer Measurement Start: 05/04/23 10:26 Freq: Status: Active Protocol: Activity Type Activity Date Activity User E-sign Co-sign Detail Recorded Client Recorded Date Recorded By Document 05/04/23 10:27 [facility] [id number] 05/04/23 10:42 [facility] Document 05/11/23 10:29 RB [id number] 05/11/23 10:41 RB Document 05/18/23 09:38 [facility] Desktop 05/18/23 09:47 [facility] Document 05/25/23 10:08 RB Desktop 05/25/23 10:23 RB 05/04/23 05/11/23 05/18/23 10:27 10:29 09:38 Wound Center Nurse 1 #13 R MED LE -Combined with other wound No -Current Size (cm) - Length 0.1 -Current Size (cm) - Width 0.1 -Current Size (cm) - Depth 0.1 -Total Square Cm 0.01 -Date of Last Picture (Recall this 05/04/23 field) -Photo Taken Yes -Epithelialization None Present -Tunneling No -Undermining/Tunneling No -Circular Undermining No -Exudate Amt Medium -Exudate Type Serosanguineous -Wound Margin Distinct, Outline Attached -Granulation Amt Small (1-33%) -Granulation Quality Red -Slough/Fibrin Yes -Necrosis Amt Large (67-100%) -Necrotic Tissue Type Adherent Slough -Texture ([place]-wound Skin Appearance) Assessed, Scarring -Moisture ([place]-wound Skin Appearance) Assessed, Maceration -Color ([place]-wound Skin Appearance) Assessed -Temperature ([place]-wound Skin No Abnormality Appearance) (Pt Warm) -Tenderness on Palpation ([place]-wound No Skin Appearance) -Ulcer Cleansing Soap and Water -Foul Odor after Cleansing No -Anesthetic Used 4% Lidocaine Solution 13-right medial ankle -Combined with other wound No -Current Size (cm) - Length 0.1 -Current Size (cm) - Width 0.1 -Current Size (cm) - Depth 0.1 -Total Square Cm 0.01 -Epithelialization Large 67-100% -Tunneling -Undermining/Tunneling -Circular Undermining -Exudate Amt -Exudate Type -Wound Margin -Granulation Amt -Granulation Quality -Slough/Fibrin -Necrosis Amt -Necrotic Tissue Type -Structure Exposed -Texture ([place]-wound Skin Appearance) -Moisture ([place]-wound Skin Appearance) -Color ([place]-wound Skin Appearance) -Temperature ([place]-wound Skin Appearance) -Tenderness on Palpation ([place]-wound Skin Appearance) -Ulcer Cleansing -Foul Odor after Cleansing -Anesthetic Used #12- R SINCLAIR CLUSTER -Combined with other wound No No No -Current Size (cm) - Length 11.7 11 9.4 -Current Size (cm) - Width 7.6 7.5 6 -Current Size (cm) - Depth 0.1 0.1 0.1 -Total Square Cm 88.92 82.5 56.4 -Date of Last Picture (Recall this 05/04/23 field) -Photo Taken Yes -Epithelialization None Present -Tunneling No No -Undermining/Tunneling No No -Circular Undermining No No -Exudate Amt Large Large -Exudate Type Serosanguineous Serosanguineous -Wound Margin Distinct, Distinct, Outline Outline Attached Attached -Granulation Amt Medium (34-66%) Medium (34-66%) -Granulation Quality Red [place] -Slough/Fibrin Yes Yes -Necrosis Amt Medium (34-66%) Medium (34-66%) -Necrotic Tissue Type Adherent Slough Adherent Slough -Structure Exposed N/A -Texture ([place]-wound Skin Appearance) Assessed, Assessed Scarring -Moisture ([place]-wound Skin Appearance) Assessed,Dry/ Assessed,Dry/ Scaly Scaly -Color ([place]-wound Skin Appearance) Assessed Hemosiderin Staining -Temperature ([place]-wound Skin No Abnormality No Abnormality Appearance) (Pt Warm) (Pt Warm) -Tenderness on Palpation ([place]-wound No No Skin Appearance) -Ulcer Cleansing Soap and Water Wound Cleanser -Foul Odor after Cleansing No No -Anesthetic Used 4% Lidocaine 5% Lidocaine Solution Gel #11- L MED LE -Combined with other wound No No No -Current Size (cm) - Length 2 0.1 0.1 -Current Size (cm) - Width 2 0.1 0.1 -Current Size (cm) - Depth 0.1 0.1 0.1 -Total Square Cm 4 0.01 0.01 -Date of Last Picture (Recall this 05/04/23 field) -Photo Taken Yes -Epithelialization None Present Large 67-100% -Tunneling No No -Undermining/Tunneling No No -Circular Undermining No No -Exudate Amt Medium Large -Exudate Type Serosanguineous Serosanguineous -Wound Margin Distinct, Distinct, Outline Outline Attached Attached -Granulation Amt Small (1-33%) Medium (34-66%) -Granulation Quality [place] -Slough/Fibrin Yes Yes -Necrosis Amt Large (67-100%) Medium (34-66%) -Necrotic Tissue Type Adherent Slough Adherent Slough -Structure Exposed N/A -Texture ([place]-wound Skin Appearance) Assessed,Callus Assessed ,Fluctuance -Moisture ([place]-wound Skin Appearance) Assessed,Dry/ Assessed,Dry/ Scaly Scaly -Color ([place]-wound Skin Appearance) Assessed Hemosiderin Staining -Temperature ([place]-wound Skin No Abnormality No Abnormality Appearance) (Pt Warm) (Pt Warm) -Tenderness on Palpation ([place]-wound No No Skin Appearance) -Ulcer Cleansing Soap and Water Wound Cleanser -Foul Odor after Cleansing No No -Anesthetic Used 4% Lidocaine 5% Lidocaine Solution Gel #10- L SINCLAIR CLUSTER -Combined with other wound No No No -Current Size (cm) - Length 3.1 3.5 5 -Current Size (cm) - Width 3.3 2 3.4 -Current Size (cm) - Depth 0.1 0.1 0.1 -Total Square Cm 10.23 7.0 17.0 -Date of Last Picture (Recall this 05/04/23 field) -Photo Taken Yes -Epithelialization None Present -Tunneling No No -Undermining/Tunneling No No -Circular Undermining No No -Exudate Amt Medium Large -Exudate Type Serosanguineous Serosanguineous -Wound Margin Distinct, Distinct, Outline Outline Attached Attached -Granulation Amt Medium (34-66%) Medium (34-66%) -Granulation Quality [place] -Slough/Fibrin Yes Yes -Necrosis Amt Medium (34-66%) Medium (34-66%) -Necrotic Tissue Type Adherent Slough Adherent Slough -Structure Exposed N/A -Texture ([place]-wound Skin Appearance) Assessed, Assessed Scarring -Moisture ([place]-wound Skin Appearance) Assessed,Dry/ Assessed,Dry/ Scaly Scaly -Color ([place]-wound Skin Appearance) Assessed Hemosiderin Staining -Temperature ([place]-wound Skin No Abnormality No Abnormality Appearance) (Pt Warm) (Pt Warm) -Tenderness on Palpation ([place]-wound No No Skin Appearance) -Ulcer Cleansing Soap and Water Wound Cleanser -Foul Odor after Cleansing No No -Anesthetic Used 4% Lidocaine 5% Lidocaine Solution Gel Lower Limb Edema Present Yes Yes Yes Right Calf (cm) 55.8 56 55 Right Ankle (cm) 32.8 33 32.5 Left Calf (cm) 47.2 43.5 48 Left Ankle (cm) 33 33 33.4 05/25/23 10:08 Wound Center Nurse 1 #13 R MED LE -Combined with other wound -Current Size (cm) - Length -Current Size (cm) - Width -Current Size (cm) - Depth -Total Square Cm -Date of Last Picture (Recall this field) -Photo Taken -Epithelialization -Tunneling -Undermining/Tunneling -Circular Undermining -Exudate Amt -Exudate Type -Wound Margin -Granulation Amt -Granulation Quality -Slough/Fibrin -Necrosis Amt -Necrotic Tissue Type -Texture ([place]-wound Skin Appearance) -Moisture ([place]-wound Skin Appearance) -Color ([place]-wound Skin Appearance) -Temperature ([place]-wound Skin Appearance) -Tenderness on Palpation ([place]-wound Skin Appearance) -Ulcer Cleansing -Foul Odor after Cleansing -Anesthetic Used 13-right medial ankle -Combined with other wound No -Current Size (cm) - Length 6 -Current Size (cm) - Width 7 -Current Size (cm) - Depth 0.1 -Total Square Cm 42 -Epithelialization -Tunneling No -Undermining/Tunneling No -Circular Undermining No -Exudate Amt Large -Exudate Type Serosanguineous -Wound Margin Distinct, Outline Attached -Granulation Amt Medium (34-66%) -Granulation Quality [place] -Slough/Fibrin Yes -Necrosis Amt Medium (34-66%) -Necrotic Tissue Type Adherent Slough -Structure Exposed N/A -Texture ([place]-wound Skin Appearance) Assessed -Moisture ([place]-wound Skin Appearance) Maceration -Color ([place]-wound Skin Appearance) Assessed -Temperature ([place]-wound Skin No Abnormality Appearance) (Pt Warm) -Tenderness on Palpation ([place]-wound No Skin Appearance) -Ulcer Cleansing Wound Cleanser -Foul Odor after Cleansing No -Anesthetic Used 4% Lidocaine Solution #12- R SINCLAIR CLUSTER -Combined with other wound No -Current Size (cm) - Length 15 -Current Size (cm) - Width 12 -Current Size (cm) - Depth 0.2 -Total Square Cm 180 -Date of Last Picture (Recall this field) -Photo Taken -Epithelialization -Tunneling No -Undermining/Tunneling No -Circular Undermining No -Exudate Amt Large -Exudate Type Serosanguineous -Wound Margin Distinct, Outline Attached -Granulation Amt Medium (34-66%) -Granulation Quality [place] -Slough/Fibrin Yes -Necrosis Amt Medium (34-66%) -Necrotic Tissue Type Adherent Slough -Structure Exposed N/A -Texture ([place]-wound Skin Appearance) Assessed -Moisture ([place]-wound Skin Appearance) Assessed -Color ([place]-wound Skin Appearance) Assessed -Temperature ([place]-wound Skin No Abnormality Appearance) (Pt Warm) -Tenderness on Palpation ([place]-wound No Skin Appearance) -Ulcer Cleansing Wound Cleanser -Foul Odor after Cleansing No -Anesthetic Used 4% Lidocaine Solution #11- L MED LE -Combined with other wound No -Current Size (cm) - Length 0.1 -Current Size (cm) - Width 0.1 -Current Size (cm) - Depth 0.1 -Total Square Cm 0.01 -Date of Last Picture (Recall this field) -Photo Taken -Epithelialization -Tunneling No -Undermining/Tunneling No -Circular Undermining No -Exudate Amt Large -Exudate Type Serosanguineous -Wound Margin Distinct, Outline Attached -Granulation Amt Medium (34-66%) -Granulation Quality [place] -Slough/Fibrin Yes -Necrosis Amt Medium (34-66%) -Necrotic Tissue Type Adherent Slough -Structure Exposed N/A -Texture ([place]-wound Skin Appearance) Assessed -Moisture ([place]-wound Skin Appearance) Assessed, Maceration -Color ([place]-wound Skin Appearance) Assessed -Temperature ([place]-wound Skin No Abnormality Appearance) (Pt Warm) -Tenderness on Palpation ([place]-wound No Skin Appearance) -Ulcer Cleansing Wound Cleanser -Foul Odor after Cleansing No -Anesthetic Used 4% Lidocaine Solution #10- L SINCLAIR CLUSTER -Combined with other wound No -Current Size (cm) - Length 6 -Current Size (cm) - Width 3.5 -Current Size (cm) - Depth 0.1 -Total Square Cm 21.0 -Date of Last Picture (Recall this field) -Photo Taken -Epithelialization -Tunneling No -Undermining/Tunneling No -Circular Undermining No -Exudate Amt Large -Exudate Type Serosanguineous -Wound Margin Distinct, Outline Attached -Granulation Amt Medium (34-66%) -Granulation Quality [place] -Slough/Fibrin Yes -Necrosis Amt Medium (34-66%) -Necrotic Tissue Type Adherent Slough -Structure Exposed N/A -Texture ([place]-wound Skin Appearance) Assessed -Moisture ([place]-wound Skin Appearance) Assessed, Maceration -Color ([place]-wound Skin Appearance) Assessed -Temperature ([place]-wound Skin No Abnormality Appearance) (Pt Warm) -Tenderness on Palpation ([place]-wound No Skin Appearance) -Ulcer Cleansing Wound Cleanser -Foul Odor after Cleansing No -Anesthetic Used 4% Lidocaine Solution Lower Limb Edema Present Yes Right Calf (cm) 56.5 Right Ankle (cm) 33.5 Left Calf (cm) 41 Left Ankle (cm) 36 - Nurse 2 - General Ulcer CM Notes Start: 05/04/23 10:26 Freq: Status: Active Protocol: Activity Type Activity Date Activity User E-sign Co-sign Detail Recorded Client Recorded Date Recorded By Document 05/04/23 11:54 [id number] 05/04/23 11:59 Document 05/11/23 11:03 [id number] 05/11/23 11:15 Document 05/18/23 09:51 Desktop 05/18/23 10:08 Edit Result 05/18/23 09:51 JF (1) [id number] 05/18/23 10:11 JF Document 05/25/23 10:47 GM Desktop 05/25/23 11:02 GM Edit Result 05/25/23 10:47 GM (2) Desktop 05/25/23 11:18 GM (1) #11- L MED LE - Debridement, Open, ea addt'l 20sq cm 1 => or part thereof #10- L SINCLAIR CLUSTER - Debridement - Open, 1st 20sq cm Yes => No - Debridement, Open, ea addt'l 20sq cm 1 => or part thereof (2) 13-right medial ankle - Undermining/Tunneling => No - Wound/Ulcer Outcome => Not Healed - Ulcer Cleansing => Rinsed/Irrigated => with Saline - Debridement, SubQ, ea addt'l 20sq cm 14 => 13 or part thereof 05/04/23 05/11/23 05/18/23 11:54 11:03 09:51 Wound Center Nurse 2 #13 R MED LE -Time 11:54 -Correct Patient No -Correct Side, Site, Position No -Correct Procedure No -Procedure Performed No -Tunneling No -Undermining/Tunneling No -Circular Undermining No -Wound/Ulcer Outcome Not Healed -Ulcer Cleansing Rinsed/ Irrigated with Saline -Foul Odor after Cleansing No -Bioengineered Tissue No -Bleeding Controlled with Pressure -Treatment Response Procedure Tolerated Well -Offloading No -Debridement - Subq, 1st 20sq cm Yes 13-right medial ankle -Time 11:07 09:52 -Correct Patient Yes Yes -Correct Side, Site, Position Yes Yes -Correct Procedure Yes Yes -Procedure Performed Yes Yes -Type of Procedure Debridement Debridement -Clinical Debridement Subcutaneous Subcutaneous -Tissue Removed Subcutaneous Subcutaneous -Post Debridement (cm) - Length 5 6.5 -Post Debridement (cm) - Width 7 8.0 -Post Debridement (cm) - Depth 0.1 0.1 -Total Square (Post) (cm) 35 52.00 -Area of Debridement (cm) - Length 5 6.5 -Area of Debridement (cm) - Width 7 8.0 -Total Square (Area) (cm) 35 52.00 -Tunneling No No -Undermining/Tunneling No No -Circular Undermining No No -Wound/Ulcer Outcome Not Healed Not Healed -Ulcer Cleansing Rinsed/ Rinsed/ Irrigated with Irrigated with Saline Saline -Foul Odor after Cleansing No No -Bioengineered Tissue No No -Bleeding Controlled with Pressure Pressure -Treatment Response Procedure Procedure Tolerated Well Tolerated Well -Offloading No No -Assistive Device(s) -Debridement - Subq, 1st 20sq cm Yes No -Debridement, SubQ, ea addt'l 20sq cm 12 or part thereof #12- R SINCLAIR CLUSTER -Time 11:56 11:05 10:00 -Correct Patient Yes Yes Yes -Correct Side, Site, Position Yes Yes Yes -Correct Procedure Yes Yes Yes -Procedure Performed Yes Yes Yes -Type of Procedure Debridement Debridement Debridement -Clinical Debridement Subcutaneous Subcutaneous Subcutaneous -Tissue Removed Subcutaneous Subcutaneous Subcutaneous -Post Debridement (cm) - Length 15 18.5 18 -Post Debridement (cm) - Width 14 11 11 -Post Debridement (cm) - Depth 0.1 0.1 0.1 -Total Square (Post) (cm) 210 203.5 198 -Area of Debridement (cm) - Length 15 18.5 18 -Area of Debridement (cm) - Width 14 11 11 -Total Square (Area) (cm) 210 203.5 198 -Tunneling No No No -Undermining/Tunneling No No No -Circular Undermining No No No -Wound/Ulcer Outcome Not Healed Not Healed Not Healed -Ulcer Cleansing Rinsed/ Rinsed/ Rinsed/ Irrigated with Irrigated with Irrigated with Saline Saline Saline -Foul Odor after Cleansing No No No -Bioengineered Tissue No No No -Bleeding Controlled with Pressure Pressure Pressure -Treatment Response Procedure Procedure Procedure Tolerated Well Tolerated Well Tolerated Well -Offloading No No No -Assistive Device(s) -Debridement - Subq, 1st 20sq cm Yes No Yes -Debridement, SubQ, ea addt'l 20sq cm 11 12 or part thereof #11- L MED LE -Time 11:56 11:05 10:03 -Correct Patient Yes Yes Yes -Correct Side, Site, Position Yes Yes Yes -Correct Procedure Yes Yes Yes -Procedure Performed Yes Yes Yes -Type of Procedure Debridement Debridement Debridement -Clinical Debridement Subcutaneous Subcutaneous Epidermis / Dermis -Tissue Removed Subcutaneous Subcutaneous Epidermis, Dermis -Post Debridement (cm) - Length 2.0 0.1 0.1 -Post Debridement (cm) - Width 1.5 0.1 0.1 -Post Debridement (cm) - Depth 0.1 0.1 0.1 -Total Square (Post) (cm) 3.00 0.01 0.01 -Area of Debridement (cm) - Length 2.0 0.1 0.1 -Area of Debridement (cm) - Width 1.5 0.1 0.1 -Total Square (Area) (cm) 3.00 0.01 0.01 -Tunneling No No No -Undermining/Tunneling No No No -Circular Undermining No No No -Wound/Ulcer Outcome Not Healed Not Healed Not Healed -Ulcer Cleansing Rinsed/ Rinsed/ Rinsed/ Irrigated with Irrigated with Irrigated with Saline Saline Saline -Foul Odor after Cleansing No No No -Bioengineered Tissue No No No -Bleeding Controlled with Pressure Pressure Pressure -Treatment Response Procedure Procedure Procedure Tolerated Well Tolerated Well Tolerated Well -Offloading No No No -Assistive Device(s) -Debridement - Open, 1st 20sq cm Yes -Debridement - Subq, 1st 20sq cm No No No #10- L SINCLAIR CLUSTER -Time 11:58 11:05 10:04 -Correct Patient Yes Yes Yes -Correct Side, Site, Position Yes Yes Yes -Correct Procedure Yes Yes Yes -Procedure Performed Yes Yes Yes -Type of Procedure Debridement Debridement Debridement -Clinical Debridement Subcutaneous Subcutaneous Epidermis / Dermis -Tissue Removed Subcutaneous Subcutaneous Epidermis, Dermis -Post Debridement (cm) - Length 2.5 4.5 5.5 -Post Debridement (cm) - Width 3.5 3.0 3.5 -Post Debridement (cm) - Depth 0.1 0.1 0.1 -Total Square (Post) (cm) 8.75 13.50 19.25 -Area of Debridement (cm) - Length 2.5 4.5 5.5 -Area of Debridement (cm) - Width 3.5 3.0 3.5 -Total Square (Area) (cm) 8.75 13.50 19.25 -Tunneling No No No -Undermining/Tunneling No No No -Circular Undermining No No No -Wound/Ulcer Outcome Not Healed Not Healed Not Healed -Ulcer Cleansing Rinsed/ Rinsed/ Rinsed/ Irrigated with Irrigated with Irrigated with Saline Saline Saline -Foul Odor after Cleansing No No No -Bioengineered Tissue No No No -Bleeding Controlled with Pressure Pressure Pressure -Treatment Response Procedure Procedure Procedure Tolerated Well Tolerated Well Tolerated Well -Offloading No No No -Debridement - Open, 1st 20sq cm No -Debridement - Subq, 1st 20sq cm No No No Pain Scale: 0-10 Numeric Is Patient Pain Free? Yes Yes Yes 05/25/23 10:47 Wound Center Nurse 2 #13 R MED LE -Time -Correct Patient -Correct Side, Site, Position -Correct Procedure -Procedure Performed -Tunneling -Undermining/Tunneling -Circular Undermining -Wound/Ulcer Outcome -Ulcer Cleansing -Foul Odor after Cleansing -Bioengineered Tissue -Bleeding Controlled with -Treatment Response -Offloading -Debridement - Subq, 1st 20sq cm 13-right medial ankle -Time 10:50 -Correct Patient Yes -Correct Side, Site, Position Yes -Correct Procedure Yes -Procedure Performed Yes -Type of Procedure Debridement -Clinical Debridement Subcutaneous -Tissue Removed Subcutaneous -Post Debridement (cm) - Length 8.0 -Post Debridement (cm) - Width 10.0 -Post Debridement (cm) - Depth 0.1 -Total Square (Post) (cm) 80.00 -Area of Debridement (cm) - Length 8.0 -Area of Debridement (cm) - Width 10.0 -Total Square (Area) (cm) 80.00 -Tunneling No -Undermining/Tunneling No -Circular Undermining -Wound/Ulcer Outcome Not Healed -Ulcer Cleansing Rinsed/ Irrigated with Saline -Foul Odor after Cleansing -Bioengineered Tissue -Bleeding Controlled with Pressure -Treatment Response Procedure Tolerated Well -Offloading -Assistive Device(s) Wheelchair -Debridement - Subq, 1st 20sq cm Yes -Debridement, SubQ, ea addt'l 20sq cm 13 or part thereof #12- R SINCLAIR CLUSTER -Time 10:51 -Correct Patient Yes -Correct Side, Site, Position Yes -Correct Procedure Yes -Procedure Performed Yes -Type of Procedure Debridement -Clinical Debridement Subcutaneous -Tissue Removed Subcutaneous -Post Debridement (cm) - Length 18.0 -Post Debridement (cm) - Width 11.0 -Post Debridement (cm) - Depth 0.1 -Total Square (Post) (cm) 198.00 -Area of Debridement (cm) - Length 18.0 -Area of Debridement (cm) - Width 11.0 -Total Square (Area) (cm) 198.00 -Tunneling No -Undermining/Tunneling No -Circular Undermining No -Wound/Ulcer Outcome Not Healed -Ulcer Cleansing Rinsed/ Irrigated with Saline -Foul Odor after Cleansing Yes -Bioengineered Tissue -Bleeding Controlled with Pressure -Treatment Response Procedure Tolerated Well -Offloading No -Assistive Device(s) Wheelchair -Debridement - Subq, 1st 20sq cm No -Debridement, SubQ, ea addt'l 20sq cm or part thereof #11- L MED LE -Time 10:52 -Correct Patient Yes -Correct Side, Site, Position Yes -Correct Procedure Yes -Procedure Performed No -Type of Procedure -Clinical Debridement -Tissue Removed -Post Debridement (cm) - Length -Post Debridement (cm) - Width -Post Debridement (cm) - Depth -Total Square (Post) (cm) -Area of Debridement (cm) - Length -Area of Debridement (cm) - Width -Total Square (Area) (cm) -Tunneling -Undermining/Tunneling -Circular Undermining -Wound/Ulcer Outcome Healed- Epithelialized -Ulcer Cleansing -Foul Odor after Cleansing -Bioengineered Tissue -Bleeding Controlled with -Treatment Response -Offloading -Assistive Device(s) Wheelchair -Debridement - Open, 1st 20sq cm -Debridement - Subq, 1st 20sq cm #10- L SINCLAIR CLUSTER -Time 10:48 -Correct Patient Yes -Correct Side, Site, Position Yes -Correct Procedure Yes -Procedure Performed Yes -Type of Procedure Debridement -Clinical Debridement Epidermis / Dermis -Tissue Removed Epidermis, Dermis -Post Debridement (cm) - Length 6.5 -Post Debridement (cm) - Width 3.0 -Post Debridement (cm) - Depth 0.1 -Total Square (Post) (cm) 19.50 -Area of Debridement (cm) - Length -Area of Debridement (cm) - Width -Total Square (Area) (cm) -Tunneling No -Undermining/Tunneling No -Circular Undermining -Wound/Ulcer Outcome Not Healed -Ulcer Cleansing Rinsed/ Irrigated with Saline -Foul Odor after Cleansing Yes -Bioengineered Tissue No -Bleeding Controlled with Pressure -Treatment Response Procedure Tolerated Well -Offloading No -Debridement - Open, 1st 20sq cm No -Debridement - Subq, 1st 20sq cm Pain Scale: 0-10 Numeric Is Patient Pain Free? Yes WC - Nurse 3 - General Ulcer D/C NN Start: 05/04/23 10:26 Freq: Status: Active Protocol: Activity Type Activity Date Activity User E-sign Co-sign Detail Recorded Client Recorded Date Recorded By Document 05/04/23 11:46 [facility] [id number] 05/04/23 11:47 [facility] Document 05/11/23 11:23 [id number] 05/11/23 11:35 Document 05/18/23 10:25 [facility] Desktop 05/18/23 10:26 [facility] Document 05/25/23 11:28 RB Desktop 05/25/23 11:30 RB 05/04/23 05/11/23 05/18/23 11:46 11:23 10:25 [facility] Center Nurse 3 #13 R MED LE -Ulcer Cleansing Rinsed/ Irrigated with Saline -Foul Odor after Cleansing No -Primary Dressing Applied Aquacel Extra -Other Dressing ABD -Aquacel Extra 1 13-right medial ankle -Ulcer Cleansing Rinsed/ Rinsed/ Irrigated with Irrigated with Saline Saline -Negative Pressure Wound Therapy Discontinue -Primary Dressing Applied Optilok 6.5x10 Aquacel Extra -Other Dressing abd -Primary Dressing Covered/Secured with Dry Gauze,Dry Dry Gauze & Gauze & Roll Roll Gauze, Gauze,Secured Secured with with Tape Tape -Aquacel Extra 2 -Optilok 6.5x10 1 #12- R SINCLAIR CLUSTER -Ulcer Cleansing Rinsed/ Rinsed/ Irrigated with Irrigated with Saline Saline -Foul Odor after Cleansing No No -Primary Dressing Applied Aquacel Extra Optilok 6.5x10 Aquacel Extra -Other Dressing ABD abd -Primary Dressing Covered/Secured with Dry Gauze,Dry Dry Gauze & Gauze & Roll Roll Gauze, Gauze,Secured Secured with with Tape Tape -Aquacel Extra 0 0 -Optilok 6.5x10 1 #11- L MED LE -Ulcer Cleansing Rinsed/ Rinsed/ Irrigated with Irrigated with Saline Saline -Foul Odor after Cleansing No No -Primary Dressing Applied Aquacel Extra Optilok 6.5x10 Aquacel Extra -Other Dressing ABD abd -Primary Dressing Covered/Secured with Dry Gauze,Dry Dry Gauze & Gauze & Roll Roll Gauze, Gauze,Secured Secured with with Tape Tape -Aquacel Extra 0 0 -Optilok 6.5x10 1 -Optilok 8x12 #10- L SINCLAIR CLUSTER -Ulcer Cleansing Rinsed/ Rinsed/ Irrigated with Irrigated with Saline Saline -Foul Odor after Cleansing No No -Primary Dressing Applied Aquacel Extra Aquacel Extra -Other Dressing ABD abd -Primary Dressing Covered/Secured with Dry Gauze,Dry Dry Gauze & Gauze & Roll Roll Gauze, Gauze,Secured Secured with with Tape Tape -Aquacel Extra 0 0 Left -Compression Wrap Right -Multi-Layered Wrap Application Multi-Layer Multi-Layer Comp - Bilat ($ Comp - Right ($ ) ) -Compression Wrap Surepress ($) Treatment Response Procedure Procedure Tolerated Well Tolerated Well Pain Scale: 0-10 Numeric Is Patient Pain Free? Yes Yes Yes WC - Visit Discharge Discharge Condition Stable Stable Stable Ambulatory Status Wheelchair Walker, Wheelchair Wheelchair Transportation ECF Private Auto ecf Medication Reconcilliation completed & No provided to patient/care provider Clinical Summary of Care Provided Yes Notes: Facility Type [facility] Facility Other ASSISTED LIVING 05/25/23 11:28 Wound Care Center Nurse 3 #13 R MED LE -Ulcer Cleansing -Foul Odor after Cleansing -Primary Dressing Applied -Other Dressing -Aquacel Extra 13-right medial ankle -Ulcer Cleansing Rinsed/ Irrigated with Saline -Negative Pressure Wound Therapy -Primary Dressing Applied Aquacel Extra, Optilok 6.5x10 -Other Dressing -Primary Dressing Covered/Secured with Dry Gauze & Roll Gauze, Secured with Tape -Aquacel Extra 1 -Optilok 6.5x10 1 #12- R SINCLAIR CLUSTER -Ulcer Cleansing Rinsed/ Irrigated with Saline -Foul Odor after Cleansing -Primary Dressing Applied Aquacel Extra, Optilok 6.5x10 -Other Dressing -Primary Dressing Covered/Secured with -Aquacel Extra 1 -Optilok 6.5x10 1 #11- L MED LE -Ulcer Cleansing Rinsed/ Irrigated with Saline -Foul Odor after Cleansing -Primary Dressing Applied Aquacel Extra, Optilok 8x12 -Other Dressing -Primary Dressing Covered/Secured with -Aquacel Extra 1 -Optilok 6.5x10 -Optilok 8x12 1 #10- L SINCLAIR CLUSTER -Ulcer Cleansing -Foul Odor after Cleansing -Primary Dressing Applied -Other Dressing aquacel extra -Primary Dressing Covered/Secured with -Aquacel Extra Left -Compression Wrap Surepress ($) Right -Multi-Layered Wrap Application -Compression Wrap Surepress ($) Treatment Response Procedure Tolerated Well Pain Scale: 0-10 Numeric Is Patient Pain Free? Yes WC - Visit Discharge Discharge Condition Stable Ambulatory Status Wheelchair Transportation Private Auto Medication Reconcilliation completed & No provided to patient/care provider Clinical Summary of Care Provided Yes Notes: pt assisted to bathroom to use [facility] Facility Type Other Additional Wound Wound debrided: Right Medial Ankle Type of Debridement: Excisional debridement Anesthesia Used: 4% Lidocaine Solution Depth: Down to and including healthy tissue and in the subcutaneous layer Percentage of wound debrided: 100 Instrument Used: 5mm curette Tissue Removed: Slough and devitalized tissue Severity: Fat Layer Exposed Amount of bleeding with debridement: Mild Bleeding Controlled with: Pressure Patient tolerated procedure: Patient tolerated procedure well Additional Wound Wound debrided: Left sinclair cluster Type of Debridement: Selective debridement Anesthesia Used: 5% Lidocaine Gel Depth: Down to and including healthy tissue Percentage of wound debrided: 100 Instrument Used: 5mm curette Tissue Removed: Devitalized tissue Severity: Limited To Skin Breakdown Amount of bleeding with debridement: Mild Bleeding Controlled with: Pressure Patient tolerated procedure: Patient tolerated procedure well Assessment/Plan Assessment/Plan (1) Ulcer of right lower extremity with fat layer exposed: CODE(S): L97.912 - Non-pressure chronic ulcer of unspecified part of right lower leg with fat layer exposed (2) Ulcer of left lower extremity with fat layer exposed: CODE(S): L97.922 - Non-pressure chronic 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 As above, some improvement in edema. Continue Aquacel extra to all open areas, cover with superabsorbent dressing. Change 2x daily and prn. Surepress for edema management. Follow-up in a week. Consistent use of lymphedema pump very strongly recommended, patient voiced understanding. Continue other chronic wound care. His questions were answered and he was advised to call with any further questions or concerns. This note was generated with SCYNEX[employer]ation software. It may contain incorrect words, spelling, and punctuation that were not noted in checking the note before signing.
== END 2023-05-27 23:59 | disposition home or self-care (01) ==
LOC: WC 10:15
PROVIDERS: PCP Internal Medicine; Referring Provider Internal Medicine; Visit Provider Internal Medicine
DX: I87.2 Venous insufficiency (chronic) (peripheral) (principal); L97.822 Non-pressure chronic ulcer of other part of left lower leg with fat layer exposed; L97.312 Non-pressure chronic ulcer of right ankle with fat layer exposed; L97.812 Non-pressure chronic ulcer of other part of right lower leg with fat layer exposed; I25.10 Atherosclerotic heart disease of native coronary artery without angina pectoris; I89.0 Lymphedema, not elsewhere classified; Z87.891 Personal history of nicotine dependence; I10 Essential (primary) hypertension; E78.5 Hyperlipidemia, unspecified; Z79.899 Other long term (current) drug therapy; Z79.82 Long term (current) use of aspirin; Z79.02 Long term (current) use of antithrombotics/antiplatelets
CPT/HCPCS: 11042; 11045; 29581; 87070; 87075; 87077; 87186; 87205; 97597; 97598; 99213; G0463

== ENCOUNTER 2023-06-01 10:47 | Emergency (ER) | payer MEDICARE, MEDICAID, SELFPAY ==
[2023-06-01 10:48] VITALS: BP 124/60; PULSE 66; RESP 18; TEMP 36.8; O2SAT 98; BMI 28.8
--- NOTE | 2023-06-01 11:30 | EKG12_ITS ---
Test Reason : SOB Blood Pressure : / mmHG Vent. Rate : 061 BPM Atrial Rate : 061 BPM P-R Int : 228 ms QRS Dur : 108 ms QT Int : 408 ms P-R-T Axes : 047 010 048 degrees QTc Int : 410 ms Sinus rhythm with 1st degree A-V block Otherwise normal ECG Confirmed by LILIAN MURRAY, MONTRELL ([id number]), video tape editor QUINTEN GUZMAN ([id number]) on 06/06/2023 12:29:39 PM Referred By: Confirmed By:MONTRELL QUINTANA MD
--- NOTE | 2023-06-01 11:31 | EX.ED.DYSGE1 ---
HPI History of Present Illness Chief Complaint: Shortness of Breath Detail of Chief Complaint: Difficulty swallowing. Informant: patient Onset/Context/Timing Onset: Today Context: Gradual Onset Timing: Continuous Current Severity: Mild Maximum Severity: Mild Narrative Narrative: 83-year-old male history of chronic lymphedema. Today was at the wound care center. They do wraps on his lymphedema. He is on Lasix. He also has a history of diabetes and a prior FL. They sent him of the emergency department because they thought he was having trouble swallowing. Said he had trouble eating his breakfast this morning. He is able to swallow liquids. Does not feel like there is anything stuck in his throat. He denies any pain. Says his mouth feels dry. 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 BPH (benign prostatic hyperplasia) Cellulitis Chronic ulcer of right foot with fat layer exposed Constipation History of non-ST elevation myocardial infarction (NSTEMI) (11/12/18) HTN (hypertension) Hyperlipidemia Lymphedema Lymphedema Osteoarthritis of lumbar spine Physical debility PSA elevation Renal cyst Ulcer of left lower extremity with fat layer exposed Ulcer of right foot with fat layer exposed Ulcer of right lower extremity with fat layer exposed Venous insufficiency Venous insufficiency of both lower extremities Home Medications aspirin 81 mg tablet,delayed release 81 mg PO DAILY@0800 11/13/18 [Rx Last Taken 02/11/23] potassium chloride 20 mEq tablet,extended release(part/cryst) See Rx Instructions .Route .COMPLEX health maintenance 05/04/21 [History Last Taken 02/11/23] atorvastatin 40 mg tablet 80 mg PO QHS 08/07/21 [History Last Taken 02/11/23] clopidogrel 75 mg tablet (Plavix) 75 mg PO QHS 08/07/21 [History Last Taken 02/11/23] bisacodyl 10 mg rectal suppository 10 mg OK DAILY PRN Constipation 11/07/21 [History Last Taken Unknown] glycerin (adult) (Fleet Glycerin (Adult) rectal suppository) 1 supp OK DAILY PRN Constipation 11/07/21 [History Last Taken Unknown] guaifenesin 600 mg tablet, extended release 12 hr (Mucinex) 600 mg PO Q12H PRN Cough 01/21/23 [History Last Taken Unknown] acetaminophen 325 mg tablet 650 mg (2 x 325 mg) PO Q6H PRN PRN Pain 1-10 Or Fever>100.7 #0 tabs 01/25/23 [Rx Last Taken Unknown] furosemide 40 mg tablet 40 mg PO DAILY #0 tabs 01/25/23 [Rx Last Taken Unknown] sennosides 8.6 mg-docusate sodium 50 mg tablet (Stool Softener-Stimulant Laxative) 2 tab PO BID #0 tabs 01/25/23 [Rx Last Taken 02/11/23] carbidopa 25 mg-levodopa 100 mg tablet 1 tab PO TID [place] 02/12/23 [History Last Taken 02/11/23] mupirocin 2 % topical ointment 1 applic topical QPM WOUND CARE 02/12/23 [History Last Taken 02/07/23] polyethylene glycol 3350 17 gram oral powder packet 17 g PO DAILY CONSTIPATION 02/12/23 [History Last Taken 02/11/23] cephalexin 500 mg capsule 500 mg PO TID #21 caps 02/15/23 [Rx Last Taken Unknown] Allergy/AdvReac Type Severity Reaction Status Date / Time lemon Allergy Intermediate blisters Verified 06/01/23 10:47 on hands [place] Allergy Intermediate blisters Verified 06/01/23 10:47 on hands [place] Allergy Intermediate blisters Verified 06/01/23 10:47 on hands Family History Other Diabetes Surgical History Stented coronary artery (11/12/18) Social History Smoking Status: Former smoker ROS ROS ED ROS Narrative Difficulty swallowing. Chronic leg lymphedema. Review of Systems ROS Unobtainable: Denies due to encephalopathy Constitutional Constitutional ED: Denies chills or fever(s) Eyes Eyes: Denies blurry vision ENT ENT ED: Denies ear pain Cardiovascular Cardiovascular: Denies chest pain Respiratory/Chest Respiratory/Chest: Denies cough or dyspnea Gastrointestinal Gastrointestinal: Denies abdominal pain Genitourinary Genitourinary ED: Denies dysuria or hematuria Musculoskeletal Musculoskeletal: Denies arthralgias Integumentary Denies abscess Neurologic Neurologic: Denies headache(s) Psychiatric Psychiatric: Denies anxiety or depression Endocrine Endocrinology: Denies cold intolerance Hematologic/Lymphatic Hematologic/Lymphatic: Reports none Allergic/Immunologic Allergic/Immunologic ED: Denies mouth swelling, tongue swelling or urticaria EXAM Physical Exam Narrative Exam Narrative: 83-year-old male no acute distress vital signs stable afebrile. Sitting upright in bed. No other family present the room. Pulse ox 98% on room air no hypoxia. H EENT exam unremarkable. Mild dry mucous membranes. Posterior pharynx unremarkable. No drooling or stridor neck nontender no JVD. Lungs clear to auscultation. Heart regular rhythm rate about 65 no murmur. Chest wall and ribs nontender. Abdomen soft nontender. Moving all 4 extremities significant 2+ pitting edema both lower extremities from chronic lymphedema. He has wraps in place. Neurologically he is awake and alert. Answering questions and following commands. Patient was given a glass of water he could drink and swallow without any difficulty. Const Vital Signs: 06/01/23 10:48 06/01/23 11:35 06/01/23 14:13 Temperature 98.3 F Temperature Source Temporal Pulse Rate 66 69 Respiratory Rate 18 19 H Respiratory Effort Short of Breath Respiratory Depth Normal Respiratory Pattern Irregular Blood Pressure 124/60 H 109/61 Blood Pressure Mean 81 77 Pulse Ox 98 96 Oxygen Delivery Method Room Air Room Air Room Air Positive well nourished and well developed; Negative for cachectic, contractures or unkempt General Appearance ED: well developed and NAD; Negative for unkempt, cachectic, contractures, cyanotic or diaphoretic Nutritional Appearance: Negative for cachectic HEENT Reports dry mucous membranes; Denies moist mucous membranes Negative for trauma or tenderness Mouth ED: Yes dry mucous membranes Mouth: dry mucous membranes Eyes PERRL and EOMs intact bilaterally General Eye ED: Negative for pale conjunctiva or scleral icterus Neck no lymphadenopathy, supple and no JVD General: Negative for tenderness Lymph Lymphatic: Negative for other Chest Wall inspection of chest normal and palpation of chest normal Chest: Negative for other Resp normal respiratory effort and clear to auscultation bilaterally Effort and Inspection: Negative for retractions Auscultation: Negative for rales, rhonchi or wheezes Cardio regular rate, regular rhythm, S1 normal heart sound, S2 normal heart sound and no murmurs GI normal to inspection, nondistended, normoactive bowel sounds, non-tender and non-distended Auscultation: normoactive bowel sounds Palpation: soft; Negative for tender or guarding Back/Spine no CVA tenderness General Back: Negative for CVA tenderness Cervical Spine: Negative for cervical spine tenderness Thoracic Spine / Upper Back: Negative for thoracic spinal tenderness Lumbar Spine / Lower Back: Negative for lumbar spinal tenderness Extremity Negative for normal to inspection Extremity Narrative: Chronic bilateral lymphedema. 2+. General Extremety ED: Yes edema General Extremity: edema Neuro oriented x3 and CN's II-XII intact bilaterally Sensorium / Orientation: alert; Negative for orientation impaired, lethargic or stuporous Motor Exam: general weakness Psych mental status grossly normal Appearance: Negative for unkempt Attitude: No agitated Mood & Affect: Negative for depressed, anxious or tearful Skin no rashes or lesions noted and no wounds Rashes: No rashes noted Trauma: Negative for abrasion Wounds: Negative for wounds noted MDM MDM MDM Narrative Medical decision making narrative: 83-year-old male with chronic medical problems. Having difficulty swallowing. Does not appear to be esophageal foreign body. Possibly could be from just being dry. And the mechanics of swallowing versus if you have like an esophageal stenosis. Historically though has not had a problem until today. Repeat exam patient doing well at 3:45 PM. He was able to swallow water without any difficulty. On follow-up with his primary care physician if he has continued trouble swallowing solids he may need upper endoscopy. History & Record Review Discussion w/independent historian: Patient Additional record(s) reviewed:: Prior inpatient record, Prior outpatient record, Prior ED visit and Prior labs Lab Data Attestation: I reviewed the patient's lab results. Lab results narrative: CBC shows a white count 6.8. H&H 11.2 and 34.2. Platelets 277. Electrolytes unremarkable gap of 4 normal BUN of 16 creatinine of 1. Glucose 93. Chest chronic changes no acute process. Unchanged when compared to prior recent labs. Labs: Laboratory Results - last 24 hr 06/01/23 11:00 WBC 6.8 RBC 4.10 L Hgb 11.0 L Hct 34.2 L MCV 83.4 MCH 26.8 L MCHC 32.2 RDW Std Deviation 44.6 H RDW Coeff of Donnie 14.6 Plt Count 277 MPV 9.0 Immature Gran % (Auto) 0.300 Neut % (Auto) 64.2 Lymph % (Auto) 23.7 [place]oke % (Auto) 9.0 Eos % (Auto) 2.4 Baso % (Auto) 0.4 Absolute Neuts (auto) 4.3 Absolute Lymphs (auto) 1.60 Nucleated RBC % 0 Sodium 140 Potassium 4.7 Chloride 109 H Carbon Dioxide 27.0 Anion Gap 4 L BUN 16 Creatinine 1.09 Estim Creat Clear Calc 70.44 Est GFR (MDRD) Af Amer 83 Est GFR (MDRD) Non-Af 69 BUN/Creatinine Ratio 14.7 Glucose 93 Calcium 9.0 Radiography Chest X-Ray - ED: 1 View, Read by ED Physician, Read by Radiologist, Lungs, Mediastinum, Bony Structures, No Acute Disease and Chronic Changes Diagnostic Testing: Clinical Impression(s) from Imaging Studies Chest X-Ray 06/01/23 11:36 IMPRESSION: Hyperinflation. Stable scarring at the left lung base. Electronically Signed: Fernando Grullon MD at 12:23 EDT , Chest x-ray, portable, single view shows no acute abnormality. Chronic changes. Interpreted both by myself and the radiologist. Rhythm Strip Rhythm Strip: Sinus Rhythm Rate: 61 Ectopy: None EKG Initial EKG: Attestation: I personally reviewed and interpreted this EKG as follows: Interpretation: Sinus Rhythm and No Acute Injury Pattern Comments: Normal sinus rhythm rate of 61 no acute signs of FL or ischemia. First-degree AV block with a OK interval of 228. Unchanged from prior EKG from December of this year. Prior EKG tracings: available for review Prior: Unchanged Discharge Plan Triage Chief Complaint: Shortness of Breath ED Provider: Parag Roper Dx/Rx/DC Orders Clinical Impression: Trouble swallowing, Chronic acquired lymphedema, History of anemia Prescriptions: No Action aspirin 81 MG tablet 81 mg PO DAILY@0800 0RF potassium chloride 20 mEq tablet,ER particles/crystals See Rx Instructions .ROUTE .COMPLEX Patient Comments: Take 2 tablets by mouth every morning AND 1 tablet every afternoon. Rx Instructions: 40meq orally each am and 20 mEq orally afternoon atorvastatin 40 mg tablet 80 mg PO QHS clopidogrel [Plavix] 75 mg tablet 75 mg PO QHS glycerin (adult) [Fleet Glycerin (Adult)] Suppository 1 supp OK DAILY PRN (Reason: Constipation) bisacodyl 10 mg Suppository 10 mg OK DAILY PRN (Reason: Constipation) guaifenesin [Mucinex] 600 mg Tablet Extended Release 12hr 600 mg PO Q12H PRN (Reason: Cough) furosemide 40 mg Tablet 40 mg PO DAILY Qty: 0 0RF Rx Instructions: Take an additional 40 mg dose at 5 PM for increased leg swelling or weight gain 5 pounds in 1 week. acetaminophen 325 mg Tablet 650 mg PO Q6H PRN PRN (Reason: Pain 1-10 Or Fever>100.7) Qty: 0 0RF sennosides-docusate sodium [Stool Softener-Stimulant Laxat] 8.6-50 mg Tablet 2 tab PO BID Qty: 0 0RF mupirocin 2 % ointment 1 applic TOPICAL QPM carbidopa-levodopa 25-100 mg tablet 1 tab PO TID polyethylene glycol 3350 17 gram powder in packet 17 g PO DAILY cephalexin 500 mg capsule 500 mg PO TID Qty: 21 0RF Primary Care Provider: Lam Huffamn Referrals: Lam Huffman MD [Primary Care Provider] - As soon as possible Activity Restrictions/Additional Instructions: Plenty of fluids. Soft diet. Follow-up with your doctor if your having continued trouble swallowing the may need to have you get upper endoscopy to evaluate your esophagus. Your labs, EKG and chest x-ray today were unremarkable. Disposition Disposition: Home, Self Care
--- NOTE | 2023-06-01 11:36 | RAD_ITS ---
STUDY: X-RAY CHEST REASON FOR EXAM: Male, 83 years old. Shortness of breath and dyspnea. TECHNIQUE: Single AP portable view of the chest. COMPARISON: Comparison is made with prior study dated January 21, 2023. FINDINGS: EKG electrodes are seen. Hyperinflation. Stable mild increased markings at the left lung base suggestive of scarring. There is no demonstrated pleural abnormality. Normal size heart. Normal mediastinum and judy. Normal visualized pulmonary arteries. There is atherosclerotic calcification of the aortic arch with tortuosity. There are diffuse degenerative changes of the visualized thoracic spine. Normal visualized ribs, clavicles, and shoulders. There is no demonstrated abnormality of the visualized soft tissue structures of the upper abdomen. RAD/Chest 1 View (Portable) IMPRESSION: Hyperinflation. Stable scarring at the left lung base. Electronically Signed: Fernando Grullon MD at 12:23 EDT ,
[2023-06-01 12:14] LABS: Absolute Neutrophil Count 4.3 X10^3/uL (2.0-7.7); Basophil# 0.03 X10^3/uL; Basophil% 0.4 % (0-1); Eosinophil# 0.16 X10^3/uL; Eosinophils% 2.4 % (0-5); Hematocrit 34.2 % (40-54); Lymphocyte % 23.7 % (19-41); Mean Corp Hgb Conc 32.2 g/dL (32-36); Mean Corpuscular Hgb 26.8 pg (27.0-32.0); Mean Corpuscular Volume 83.4 fL (80-94); Monocyte# 0.61 X10^3/uL; NRBC Flagged by Analyzer 0 % (0-5); Neutrophil # 4.34 X10^3/uL (2.7-7.7); Neutrophil % 64.2 % (47-70); Platelet Count 277 K/mm3 (150-450); RBC Distribution Width CV 14.6 % (11.6-14.6); RBC Distribution Width SD 44.6 fl (35.1-43.9); White Blood Count 6.8 K/mm3 (4.4-11.0)
[2023-06-01 12:47] LABS: Anion Gap 4 (5-15); BUN 16 mg/dL (7-18); BUN/Creat Ratio 14.7 RATIO (10-20); Chloride 109 mmol/L (98-107); Creatinine, Serum 1.09 mg/dL (0.70-1.30); EST Glomerular Filtration Rate 69 mL/min (>60); Est Glom Filt Rate - Afr Amer 83 mL/min (>60); Estimated Creatinine Clearance 70.44 ml/min; Glucose 93 mg/dL (74-106); Potassium 4.7 mmol/L (3.5-5.1); Sodium Level 140 mmol/L (136-145)
[2023-06-01 14:13] VITALS: BP 109/61; PULSE 69; RESP 19; O2SAT 96
[2023-06-01 16:23] VITALS: PULSE 70; RESP 18; O2SAT 95
== END 2023-06-01 16:38 | disposition home or self-care (01) ==
PROVIDERS: Emergency Provider Emergency Medicine; PCP Internal Medicine; Visit Provider Emergency Medicine
DX: R13.10 Dysphagia, unspecified (principal); I89.0 Lymphedema, not elsewhere classified; I25.10 Atherosclerotic heart disease of native coronary artery without angina pectoris; I25.2 Old myocardial infarction; Z79.899 Other long term (current) drug therapy; Z87.891 Personal history of nicotine dependence
CPT/HCPCS: 71045; 80048; 85025; 93005; 99285; A4216

== ENCOUNTER 2023-06-08 10:15 | Outpatient (RCR) | payer MEDICARE, MEDICAID, SELFPAY ==
[2023-05-28 00:08] VITALS: BP 115/55; PULSE 75; RESP 18; TEMP 36.7
[2023-06-01 10:12] VITALS: BP 115/70; PULSE 77; RESP 16; TEMP 36.8; O2SAT 97
--- NOTE | 2023-06-01 12:35 | WC ---
Spoke to Jennyfer at [facility] letting her know that patient was sent to the ER and that he has his wheelchair here in case someone wants to come and retrieve it. Reported the medical findings with her on patient's symptoms.
[2023-06-08 10:10] VITALS: BP 119/53; PULSE 73; RESP 16; TEMP 36.6
--- NOTE | 2023-06-08 11:30 | PCM.WC.PN ---
History of Present Illness Date of Service: 06/08/23 Chief Complaint: Bilateral lower extremity ulcers History of Wound: Mr. Boles is an 83-year-old currently residing at [facility] who presents due to nonhealing bilateral lower extremity ulceration. He was seen here a few months ago and discharged after he achieved healing. Recommendation was for continued use of his lymphedema pump however he states that this has not been used consistently. Current ulceration has been present for weeks. No chills, fever or otherwise feeling of unwell. Progress of Wound: New right lateral foot ulcer. Still has significant bilateral lower extremity edema. He states that he sleeps in his lift chair. Compression also not applied properly by facility. Objective Data Objective Data Vital Signs: Vital Signs Temp Pulse Resp BP Pulse Ox O2 Del Method 98 F 73 16 119/53 L 97 Room Air 06/08/23 10:10 06/08/23 10:10 06/08/23 10:10 06/08/23 10:10 06/01/23 10:12 06/08/23 10:10 Oxygen Delivery Method Room Air Charges/Coding Procedures Integumentary 111xxx-113xx: 21646 Jaye subq tissue 20 sq cm/< Add On Codes: 02990 Jaye subq tissue add-on (x12 Additional Sq Cm noted. Please refer to clinical notes.) Physical Exam Const alert, oriented x3 and no apparent distress General Appearance: cooperative, comfortable and well kempt HEENT normocephalic and head/scalp atraumatic Eyes EOMs intact bilaterally General Eye: normal appearance of both eyes Neck full ROM General: normal visual inspection Resp normal respiratory effort Effort and Inspection: able to speak in complete sentences Extremity General Extremity: edema Skin Wounds: wounds noted Neuro oriented x3, CN's II-XII intact bilaterally, moves all extremities and no focal motor deficits Psych mental status grossly normal, thought process normal, cooperative and affect normal Debridement Note Debridement Note Wound debrided: Right sinclair cluster Type of Debridement: Excisional debridement Anesthesia Used: 4% Lidocaine Solution Depth: Down to and including healthy tissue and in the subcutaneous layer Percentage of wound debrided: 100 Instrument Used: 7mm curette Tissue Removed: Slough and devitalized tissue Severity: Fat Layer Exposed Amount of bleeding with debridement: Mild Bleeding Controlled with: Pressure Patient tolerated procedure: Patient tolerated procedure well Post-Debridement Measurements and Additional Note: Post-Debridement Measurements/Treatment WC - Nurse 1 - General Ulcer Assessment Start: 06/01/23 10:12 Freq: Status: Active Protocol: LINDA Activity Type Activity Date Activity User E-sign Co-sign Detail Recorded Client Recorded Date Recorded By Document 06/01/23 10:12 [facility] Page [employer] 06/01/23 10:16 BMF Document 06/08/23 10:10 [facility] Desktop 06/08/23 10:15 BMF 06/01/23 06/08/23 10:12 10:10 WC - Today's Visit Information Type of service Follow-up Visit Follow-up Visit (Physician/BEVERAGE SPECIALIST (Physician/BEVERAGE SPECIALIST ) ) Arrival Mode Wheelchair Wheelchair Transfer Assistance Other Transfer Assist (Other) 1 Patient Identification Verified (Name & Yes Yes ) Patient Requires Transmission-Based No No Precautions Vital Signs Temperature (97.8 F-99.1 F) 98.3 F 98 F Temperature Source Temporal Temporal Pulse Rate (60-100) 77 73 Pulse Location Monitor Monitor Respiratory Rate (12-18) 16 16 Respiratory rate source Observation Observation Pulse Oximetry 97 Oxygen Delivery Method Room Air Room Air Blood Pressure (90/60-120/80) 115/70 119/53 L Blood Pressure Mean (mm Hg) 85 75 Source Monitor Monitor Position Sitting Sitting Blood Pressure Location Right Forearm Left Forearm History Since Last Visit- (Skip if this is Patient's initial visit) Have you changed medications since your No No last visit? Any new allergies or adverse reactions No No Had a fall/change in ADL's that may No No increase risk of falls Signs or symptoms of abuse and/or No No neglect since last visit Have you been in the hospital since your No No last visit? Has dressing in place as prescribed Yes Has compression in place as prescribed No Has offloadiing in place as prescribed N/A Experienced any changes in pain level or No No management Left Footwear Custom Shoe Custom Shoe Right Footwear Custom Shoe Custom Shoe Other Footwear compression is always on haphazardly when pt arrives . Pain Scale: 0-10 Numeric Is Patient Pain Free? Yes Yes JANAY - Nurse 1 - General Ulcer Measurement Start: 06/01/23 10:12 Freq: Status: Active Protocol: Activity Type Activity Date Activity User E-sign Co-sign Detail Recorded Client Recorded Date Recorded By Document 06/08/23 10:10 [facility] Desktop 06/08/23 10:15 [facility] 06/08/23 10:10 Wound Center Nurse 1 #14- R LAT ANKLE -Combined with other wound No -Exudate Amt Large -Exudate Type Serosanguineous -Wound Margin Distinct, Outline Attached -Granulation Amt None Present (0 %) -Slough/Fibrin Yes -Necrosis Amt Large (67-100%) -Necrotic Tissue Type Adherent Slough -Texture ([place]-wound Skin Appearance) Assessed, Excoriation, Scarring -Moisture ([place]-wound Skin Appearance) Assessed, Maceration, Weeping -Color ([place]-wound Skin Appearance) Assessed, Erythema -Temperature ([place]-wound Skin No Abnormality Appearance) (Pt Warm) -Tenderness on Palpation ([place]-wound No Skin Appearance) -Ulcer Cleansing Soap and Water -Anesthetic Used 4% Lidocaine Solution WC - Nurse 3 - General Ulcer D/C NN Start: 06/01/23 10:12 Freq: Status: Active Protocol: Activity Type Activity Date Activity User E-sign Co-sign Detail Recorded Client Recorded Date Recorded By Document 06/01/23 10:32 EDDIE [id number] 06/01/23 10:37 EDDIE 06/01/23 10:32 Pain Scale: 0-10 Numeric Is Patient Pain Free? Yes WC - Visit Discharge Discharge Condition Stable Ambulatory Status Wheelchair Transportation Ambulance Medication Reconcilliation completed & Yes provided to patient/care provider Clinical Summary of Care Provided Notes: Additional Wound Wound debrided: Right Medial Ankle Type of Debridement: Excisional debridement Anesthesia Used: 4% Lidocaine Solution Depth: Down to and including healthy tissue and in the subcutaneous layer Percentage of wound debrided: 100 Instrument Used: 5mm curette Tissue Removed: Slough and devitalized tissue Severity: Fat Layer Exposed Amount of bleeding with debridement: Mild Bleeding Controlled with: Pressure Patient tolerated procedure: Patient tolerated procedure well Additional Wound Wound debrided: Left sinclair cluster Type of Debridement: Excisional debridement Anesthesia Used: 4% Lidocaine Solution Depth: Down to and including healthy tissue Percentage of wound debrided: 100 Instrument Used: 5mm curette Tissue Removed: Devitalized tissue Severity: Limited To Skin Breakdown Amount of bleeding with debridement: Mild Bleeding Controlled with: Pressure Patient tolerated procedure: Patient tolerated procedure well Additional Wound Wound debrided: Right lateral foot/ankle Type of Debridement: Excisional debridement Anesthesia Used: 4% Lidocaine Solution Depth: Down to and including healthy tissue and in the subcutaneous layer Percentage of wound debrided: 100 Instrument Used: 5mm curette Tissue Removed: Slough and devitalized tissue Severity: Fat Layer Exposed Amount of bleeding with debridement: Mild Bleeding Controlled with: Pressure Patient tolerated procedure: Patient tolerated procedure well Assessment/Plan Assessment/Plan (1) Ulcer of right lower extremity with fat layer exposed: CODE(S): L97.912 - Non-pressure chronic ulcer of unspecified part of right lower leg with fat layer exposed (2) Ulcer of left lower extremity with fat layer exposed: CODE(S): L97.922 - Non-pressure chronic 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 Still significant edema. Sleeping in a lift chair not in bed. Compression also not applied properly. He states that he has an appointment with his family physician soon, he was advised to discuss with his PCP about possibly increasing his diuretics however patient is not really open to this because he states that he will have to pee more. Continue Aquacel extra to all open areas, cover with superabsorbent dressing. Change 2x daily and prn. Surepress for edema management. Follow-up in a week. Consistent use of lymphedema pump very strongly recommended, patient voiced understanding. Also strongly advised that he stays in bed all through the night at least to get some elevation. Continue other chronic wound care. His questions were answered and he was advised to call with any further questions or concerns. This note was generated with WebActionation software. It may contain incorrect words, spelling, and punctuation that were not noted in checking the note before signing.
--- NOTE | 2023-06-09 13:27 | WC ---
Spoke with Jennyfer the nurse at his assisted living facility. Informed them that his wraps are only coming mid-sinclair resulting in increased edema and they need to come up to his knee. Also asked if they could try to get him to get into the bed when they do the dressing changes at 1930. We do not want him to sleep in his recliner, however due to the limited services in an assisted living there isn't anyone to help him to the bathroom during the night and he has a hard time getting in and out of bed. They will attempt to get him to get into bed right after his dressing change.
== END 2023-06-27 23:59 | disposition home or self-care (01) ==
LOC: WC 10:15
PROVIDERS: PCP Internal Medicine; Referring Provider Internal Medicine; Visit Provider Internal Medicine
DX: I87.2 Venous insufficiency (chronic) (peripheral) (principal); L97.812 Non-pressure chronic ulcer of other part of right lower leg with fat layer exposed; L97.512 Non-pressure chronic ulcer of other part of right foot with fat layer exposed; L97.822 Non-pressure chronic ulcer of other part of left lower leg with fat layer exposed; L97.312 Non-pressure chronic ulcer of right ankle with fat layer exposed; I89.0 Lymphedema, not elsewhere classified; R60.0 Localized edema
CPT/HCPCS: 11042; 11045

== ENCOUNTER 2023-06-20 15:54 | Emergency (ER) | payer MEDICARE, MEDICAID, SELFPAY ==
[2023-06-20 16:00] VITALS: BP 119/71; PULSE 78; RESP 12; TEMP 37.2; O2SAT 98; BMI 27.3
--- NOTE | 2023-06-20 16:45 | EX.ED.DYSGE1 ---
HPI History of Present Illness Chief Complaint: Other, Pain/Inj Informant: patient Narrative Narrative: 83-year-old gentleman at [facility] states has been having trouble swallowing for weeks if not months, he does not know exactly how long, he still gaining weight and able to pass solids and liquids, and according to the staff where he resides he was able to eat everything in his meals today, states he saw ENT yesterday Dr. Jojo Daniels, who did laryngoscopy and saw that it was normal and so what may be parts of an esophageal mass, and ordered him some type of pictures. The patient states that getting the pictures was messed up by the [facility] and he presents here saying that feels like things are getting worse and he wants to get the pictures taken. He signed into the ER for this and was transferred by EMS. 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 Constipation History of non-ST elevation myocardial infarction (NSTEMI) (11/12/18) HTN (hypertension) Hyperlipidemia Lymphedema Lymphedema Osteoarthritis of lumbar spine Physical debility PSA elevation Renal cyst Ulcer of left lower extremity with fat layer exposed Ulcer of right foot with fat layer exposed Ulcer of right lower extremity with fat layer exposed Venous insufficiency Venous insufficiency of both lower extremities Home Medications aspirin 81 mg tablet,delayed release 81 mg PO DAILY@0800 11/13/18 [Rx Last Taken 02/11/23] potassium chloride 20 mEq tablet,extended release(part/cryst) See Rx Instructions .Route .COMPLEX health maintenance 05/04/21 [History Last Taken 02/11/23] atorvastatin 40 mg tablet 40 mg PO QHS 08/07/21 [History Last Taken 02/11/23] clopidogrel 75 mg tablet (Plavix) 75 mg PO QHS HEART DISEASE 08/07/21 [History Last Taken 02/11/23] bisacodyl 10 mg rectal suppository 10 mg MT DAILY PRN Constipation 11/07/21 [History Last Taken Unknown] guaifenesin 600 mg tablet, extended release 12 hr (Mucinex) 600 mg PO Q12H PRN Cough 01/21/23 [History Last Taken Unknown] acetaminophen 325 mg tablet 650 mg (2 x 325 mg) PO Q6H PRN PRN Pain 1-10 Or Fever>100.7 #0 tabs 01/25/23 [Rx Last Taken Unknown] furosemide 40 mg tablet 40 mg PO DAILY #0 tabs 01/25/23 [Rx Last Taken Unknown] sennosides 8.6 mg-docusate sodium 50 mg tablet (Stool Softener-Stimulant Laxative) 2 tab PO BID #0 tabs 01/25/23 [Rx Last Taken 02/11/23] carbidopa 25 mg-levodopa 100 mg tablet 1 tab PO TID PARKINSONS 02/12/23 [History Last Taken 02/11/23] polyethylene glycol 3350 17 gram oral powder packet 17 g PO DAILY CONSTIPATION 02/12/23 [History Last Taken 02/11/23] magnesium hydroxide 2,400 mg/10 mL oral suspension (Milk Of Magnesia Concentrated) 10 ml PO BID CONSTIPATION 06/20/23 [History Last Taken Unknown] magnesium hydroxide 400 mg/5 mL oral suspension (Dulcolax (magnesium hydroxide)) 5 ml PO DAILY PRN constipation 06/20/23 [History Last Taken Unknown] Allergy/AdvReac Type Severity Reaction Status Date / Time raspberry Allergy Severe Vomiting Verified 06/20/23 16:07 lemon Allergy Intermediate blisters Verified 06/20/23 16:07 on hands [place] Allergy Intermediate blisters Verified 06/20/23 16:07 on hands strawberry Allergy Intermediate blisters Verified 06/20/23 16:07 on hands Family History Other Diabetes Surgical History Stented coronary artery (11/12/18) Social History Smoking Status: Former smoker ROS ROS ED ENT ENT ED: Reports as per HPI, sore throat and other Details: Dysphagia, odynophagia ; Denies ear pain Cardiovascular Cardiovascular: Reports leg edema; Denies chest pain Respiratory/Chest Respiratory/Chest: Denies cough or dyspnea Gastrointestinal Gastrointestinal: Denies abdominal pain, nausea or vomiting Neurologic Neurologic: Denies headache(s), paresthesias or weakness EXAM Physical Exam Const Vital Signs: 06/20/23 16:00 06/20/23 16:07 06/20/23 17:55 Temperature 98.9 F 98.1 F Temperature Source Oral Oral Pulse Rate 78 75 Respiratory Rate 12 12 Respiratory Effort Normal Non-Labored Respiratory Pattern Normal Blood Pressure 119/71 137/96 H Blood Pressure Mean 87 109 Pulse Ox 98 98 Oxygen Delivery Method Room Air Room Air 06/20/23 19:00 Temperature Temperature Source Pulse Rate 82 Respiratory Rate 14 Respiratory Effort Respiratory Pattern Blood Pressure 135/74 H Blood Pressure Mean 94 Pulse Ox 98 Oxygen Delivery Method Room Air Positive well nourished and well developed General Appearance ED: well developed and NAD HEENT Reports moist mucous membranes HEENT Narrative: Edentulous. Posterior pharynx clear. Some mucus present. No stridor. Speaking full sentences. Spitting clear white nonbloody mucus once while I was in doing exam. Eyes PERRL and EOMs intact bilaterally Neck no lymphadenopathy and supple Chest Wall inspection of chest normal and palpation of chest normal Resp normal respiratory effort and clear to auscultation bilaterally Cardio regular rate and regular rhythm Rate: Negative for tachycardic GI normal to inspection, nondistended, normoactive bowel sounds, non-tender and non-distended Extremity General Extremety ED: Yes edema; Negative for tenderness General Extremity: edema Neuro oriented x3, CN's II-XII intact bilaterally and no sensory deficits noted Psych mental status grossly normal MDM MDM MDM Narrative Medical decision making narrative: I reviewed notes and orders in our electronic system, there is no otolaryngology note and there is no order for any radiography nor there are any recent radiography of the area of interest. Discussed briefly with Dr. Bertha De La Rosa with otolaryngology, he reviewed some notes from the office, it appears a barium swallow/esophagram was desired. I attempted to discuss with the radiologist but he is gone for the day so that test will not be available at this time. Patient has been passing p.o. fluids and solids and has been gaining weight according to staff at the [facility] living, however he is not able to pass fluids or applesauce here. Initially it seemed more behavioral like he was spitting it out because it hurt and he did not want to swallow. I advised the patient that if he truly is not able to swallow, he may need to go back to [facility] on IV fluids until he can get the studies, states he really does not want to go back there he wants to go back to the [place] so we had him try to swallow liquids again but he is unable apparently. I advised him that he will not be able to go back to the [facility] unless he is able to swallow liquids which is staff stated he was doing all day today and his response that is they lied, I have not been able to today. He apparently has an EGD scheduled for 6 days from now. I discussed with social work, given the hour in the evening/night we are not able to get the patient to [facility] without admitting him to the hospital, which medically he does not require at this time. I discussed with NAKUL Boggs. He agrees with putting the patient on IV fluids, and having him go back to the [facility] as long as they can take care of the IV fluids, to get his study as an outpatient, which I have ordered, and his EGD is scheduled in 6 days. I had nursing discussed with staff at the [facility]. As long as we placed the IV which we already did, and sent her back with IV fluids and tubing, they will be able to provide IV fluids and maintain the IV. Discussed with Dr. Lamb who was on-call for Dr. Brower. He agrees this is quite a conundrum but that the patient does not need to be admitted medically, that he would be okay with the patient going back as long as the patient is okay with it and is less likely to bounce back to the emergency department on his own. I did discuss this with the patient he was okay going back to the [place], he preferred not to go back to [facility] where I cannot send him right now. He was advised that he can continue trying to drink fluids and if he can great if not, he will be able to continue to get a low rate of IV fluids to prevent dehydration, whether he can eat or not for 1 week really is not the decision making ability here. Lab Data Attestation: I reviewed the patient's lab results. Labs: Laboratory Results - last 24 hr 06/20/23 19:03 WBC 8.3 RBC 4.39 L Hgb 11.3 L Hct 36.8 L MCV 83.8 MCH 25.7 L MCHC 30.7 L RDW Std Deviation 44.6 H RDW Coeff of Donnie 14.7 H Plt Count 227 MPV 9.0 Immature Gran % (Auto) 0.400 Neut % (Auto) 67.1 Lymph % (Auto) 19.1 [place] % (Auto) 8.9 Eos % (Auto) 3.9 Baso % (Auto) 0.6 Absolute Neuts (auto) 5.6 Absolute Lymphs (auto) 1.58 Nucleated RBC % 0 Sodium 141 Potassium 4.0 Chloride 110 H Carbon Dioxide 27.0 Anion Gap 4 L BUN 19 H Creatinine 1.04 Estim Creat Clear Calc 73.83 Est GFR (MDRD) Af Amer 88 Est GFR (MDRD) Non-Af 73 BUN/Creatinine Ratio 18.3 Glucose 90 Calcium 8.9 Management Discussion w/another healthcare provider: Transportation Museum Helper (Multiple see above) and rubber factory worker/Case management Discharge Plan Triage Chief Complaint: Other, Pain/Inj ED Provider: Alfredo Rojo Dx/Rx/DC Orders Clinical Impression: Dysphagia, Odynophagia Instructions: ED Dysphagia (Adult) Prescriptions: No Action aspirin 81 MG tablet 81 mg PO DAILY@0800 0RF potassium chloride 20 mEq tablet,ER particles/crystals See Rx Instructions .ROUTE .COMPLEX Patient Comments: Take 2 tablets by mouth every morning AND 1 tablet every afternoon. Rx Instructions: 40meq orally each am and 20 mEq orally afternoon atorvastatin 40 mg tablet 40 mg PO QHS clopidogrel [Plavix] 75 mg tablet 75 mg PO QHS bisacodyl 10 mg Suppository 10 mg MT DAILY PRN (Reason: Constipation) guaifenesin [Mucinex] 600 mg Tablet Extended Release 12hr 600 mg PO Q12H PRN (Reason: Cough) furosemide 40 mg Tablet 40 mg PO DAILY Qty: 0 0RF Rx Instructions: Take an additional 40 mg dose at 5 PM for increased leg swelling or weight gain 5 pounds in 1 week. acetaminophen 325 mg Tablet 650 mg PO Q6H PRN PRN (Reason: Pain 1-10 Or Fever>100.7) Qty: 0 0RF sennosides-docusate sodium [Stool Softener-Stimulant Laxat] 8.6-50 mg Tablet 2 tab PO BID Qty: 0 0RF carbidopa-levodopa 25-100 mg tablet 1 tab PO TID polyethylene glycol 3350 17 gram powder in packet 17 g PO DAILY magnesium hydroxide [Dulcolax (magnesium hydroxide)] 400 mg/5 mL suspension 5 ml PO DAILY PRN (Reason: constipation) Rx Instructions: NOTIFY MD, IF NO BM IN 4 DAYS magnesium hydroxide [Milk Of Magnesia Concentrated] 2,400 mg/10 mL suspension 10 ml PO BID Rx Instructions: NOTIFY MD IF NO BM IN 4 DAYS Other Ambulatory Orders: Esophagus Single Contrast (Routine) Timeframe: 3 Days [facility] Ordered By: Dr. Alfredo Rojo Primary Care Provider: Pablito Brower Referrals: Lam Huffman MD [Med Staff - Java Project Manager] - (and appts as scheduled) Disposition Disposition: NonSkilled NH/Intermed Care Discharge Location: [facility] [place]
[2023-06-20 17:55] VITALS: BP 137/96; PULSE 75; RESP 12; TEMP 36.7; O2SAT 98
[2023-06-20 19:00] VITALS: BP 135/74; PULSE 82; RESP 14; O2SAT 98
[2023-06-20 19:10] LABS: Absolute Lymphocyte Count 1.58 X10^3/uL (0.83-4.51); Absolute Neutrophil Count 5.6 X10^3/uL (2.0-7.7); Basophil# 0.05 X10^3/uL; Basophil% 0.6 % (0-1); Eosinophil# 0.32 X10^3/uL; Eosinophils% 3.9 % (0-5); Hematocrit 36.8 % (40-54); Hemoglobin 11.3 g/dL (13.0-16.5); Lymphocyte # 1.58 X10^3/ul (0.83-4.51); Lymphocyte % 19.1 % (19-41); Mean Corp Hgb Conc 30.7 g/dL (32-36); Mean Corpuscular Hgb 25.7 pg (27.0-32.0); Mean Corpuscular Volume 83.8 fL (80-94); Monocyte# 0.74 X10^3/uL; Monocyte% 8.9 % (0-10); NRBC Flagged by Analyzer 0 % (0-5); Neutrophil # 5.56 X10^3/uL (2.7-7.7); Neutrophil % 67.1 % (47-70); Platelet Count 227 K/mm3 (150-450); RBC Distribution Width CV 14.7 % (11.6-14.6); RBC Distribution Width SD 44.6 fl (35.1-43.9); Red Blood Count 4.39 M/mm3 (4.6-6.2); White Blood Count 8.3 K/mm3 (4.4-11.0)
[2023-06-20 19:27] LABS: Anion Gap 4 (5-15); BUN 19 mg/dL (7-18); BUN/Creat Ratio 18.3 RATIO (10-20); Calcium,Total 8.9 mg/dL (8.5-10.1); Chloride 110 mmol/L (98-107); Creatinine, Serum 1.04 mg/dL (0.70-1.30); EST Glomerular Filtration Rate 73 mL/min (>60); Est Glom Filt Rate - Afr Amer 88 mL/min (>60); Estimated Creatinine Clearance 73.83 ml/min; Glucose 90 mg/dL (74-106); Sodium Level 141 mmol/L (136-145)
--- NOTE | 2023-06-20 20:19 | CM.ED ---
Social Work Patient reportedly was at [facility] and in the last few weeks he transferred to the [place]. Dr. Rojo reports patient is now saying he would like to go back to [facility]. Due to being late in the evening, admissions for [facility] unavailable as well as insurance would be unavailable as well. It is unclear whether patient is under skilled, would likely need a precert if skilled due to [place] [facility]. Pt has secondary [facility]. Physician inquiring if patient can switch nursing homes tonight, which would not be feasible due to late time. It is unclear whether patient will return to the [facility] tonight or be admitted. Serena Bain MANUFACTURING TEST ENGINEER, STOCK HANDLER FLOORPERSON
--- NOTE | 2023-06-20 20:46 | HP.PCM.HOS_ITS ---
HPI - General HPI Narrative RADHA ZAMBRANO, is a 83 M who presents [facility], [facility] Medical History Abnormality of gait Anemia Atherosclerotic heart disease of [place] coronary artery without angina pectoris Benign neoplasm of colon Bilateral edema of lower extremity Bilateral hearing loss Blind right eye Borderline type 2 diabetes mellitus BPH (benign prostatic hyperplasia) Cellulitis Chronic ulcer of right foot with fat layer exposed Constipation History of non-ST elevation myocardial infarction (NSTEMI) (11/12/18) HTN (hypertension) Hyperlipidemia Lymphedema Lymphedema Osteoarthritis of lumbar spine Physical debility PSA elevation Renal cyst Ulcer of left lower extremity with fat layer exposed Ulcer of right foot with fat layer exposed Ulcer of right lower extremity with fat layer exposed Venous insufficiency Venous insufficiency of both lower extremities Home Medications aspirin 81 mg tablet,delayed release 81 mg PO DAILY@0800 11/13/18 [Rx Last Taken 02/11/23] potassium chloride 20 mEq tablet,extended release(part/cryst) See Rx Instructions .Route .COMPLEX health maintenance 05/04/21 [History Last Taken 02/11/23] atorvastatin 40 mg tablet 40 mg PO QHS 08/07/21 [History Last Taken 02/11/23] clopidogrel 75 mg tablet (Plavix) 75 mg PO QHS HEART DISEASE 08/07/21 [History Last Taken 02/11/23] bisacodyl 10 mg rectal suppository 10 mg [place] DAILY PRN Constipation 11/07/21 [History Last Taken Unknown] guaifenesin 600 mg tablet, extended release 12 hr (Mucinex) 600 mg PO Q12H PRN Cough 01/21/23 [History Last Taken Unknown] acetaminophen 325 mg tablet 650 mg (2 x 325 mg) PO Q6H PRN PRN Pain 1-10 Or Fever>100.7 #0 tabs 01/25/23 [Rx Last Taken Unknown] furosemide 40 mg tablet 40 mg PO DAILY #0 tabs 01/25/23 [Rx Last Taken Unknown] sennosides 8.6 mg-docusate sodium 50 mg tablet (Stool Softener-Stimulant Laxative) 2 tab PO BID #0 tabs 01/25/23 [Rx Last Taken 02/11/23] carbidopa 25 mg-levodopa 100 mg tablet 1 tab PO TID PARKINSONS 02/12/23 [History Last Taken 02/11/23] polyethylene glycol 3350 17 gram oral powder packet 17 g PO DAILY CONSTIPATION 02/12/23 [History Last Taken 02/11/23] magnesium hydroxide 2,400 mg/10 mL oral suspension (Milk Of Regino Grigsby samantha) 10 ml PO BID CONSTIPATION 06/20/23 [History Last Taken Unknown] magnesium hydroxide 400 mg/5 mL oral suspension (Dulcolax (magnesium hydroxide)) 5 ml PO DAILY PRN constipation 06/20/23 [History Last Taken Unknown] Allergy/AdvReac Type Severity Reaction Status Date / Time raspberry Allergy Severe Vomiting Verified 06/20/23 16:07 lemon Allergy Intermediate blisters Verified 06/20/23 16:07 on hands [place] Allergy Intermediate blisters Verified 06/20/23 16:07 on hands strawberry Allergy Intermediate blisters Verified 06/20/23 16:07 on hands Family History Other Diabetes Surgical History Stented coronary artery (11/12/18) Social History Smoking Status: Former smoker Vital Signs Vital Signs Vital Signs: 06/20/23 16:00 06/20/23 16:07 06/20/23 17:55 Temperature 98.9 F 98.1 F Temperature Source Oral Oral Pulse Rate 78 75 Respiratory Rate 12 12 Respiratory Effort Normal Non-Labored Respiratory Pattern Normal Blood Pressure 119/71 137/96 H Blood Pressure Mean 87 109 Pulse Ox 98 98 Oxygen Delivery Method Room Air Room Air 06/20/23 19:00 Temperature Temperature Source Pulse Rate 82 Respiratory Rate 14 Respiratory Effort Respiratory Pattern Blood Pressure 135/74 H Blood Pressure Mean 94 Pulse Ox 98 Oxygen Delivery Method Room Air Weight Weight: 110 kg Body Mass Index (BMI) 27.3 Results Lab / Micro Data 06/20/23 19:03 06/20/23 19:03 Labs: Laboratory Results - last 24 hr 06/20/23 19:03: WBC 8.3, RBC 4.39 L, Hgb 11.3 L, Hct 36.8 L, MCV 83.8, MCH 25.7 L, MCHC 30.7 L, RDW Std Deviation 44.6 H, RDW Coeff of Donnie 14.7 H, Plt Count 227, MPV 9.0, Immature Gran % (Auto) 0.400, Neut % (Auto) 67.1, Lymph % (Auto) 19.1, [place] % (Auto) 8.9, Eos % (Auto) 3.9, Baso % (Auto) 0.6, Absolute Neuts (auto) 5.6, Absolute Lymphs (auto) 1.58, Nucleated RBC % 0, Sodium 141, Potassium 4.0, Chloride 110 H, Carbon Dioxide 27.0, Anion Gap 4 L, BUN 19 H, Creatinine 1.04, Estim Creat Clear Calc 73.83, Est GFR (MDRD) Af Amer 88, Est GFR (MDRD) Non-Af 73, BUN/Creatinine Ratio 18.3, Glucose 90, Calcium 8.9
[2023-06-20 21:00] VITALS: BP 120/73; PULSE 69; RESP 15; O2SAT 99
--- NOTE | 2023-06-20 21:12 | ED.RN ---
REPORT CALLED TO FILIPPO, PRIMARY NURSE
[2023-06-20] MEDS: 0.9% Normal Saline (1000mL) 1,000 ML 80 ML IV (22:21)
[2023-06-20 22:22] VITALS: BP 145/80; PULSE 74; RESP 12; O2SAT 98
== END 2023-06-21 00:58 | disposition intermediate care facility (04) ==
PROVIDERS: Emergency Provider Emergency Medicine; PCP Family Medicine; Visit Provider Emergency Medicine
DX: R13.10 Dysphagia, unspecified (principal); E78.5 Hyperlipidemia, unspecified; I10 Essential (primary) hypertension; I25.10 Atherosclerotic heart disease of native coronary artery without angina pectoris; I25.2 Old myocardial infarction; Z79.82 Long term (current) use of aspirin; Z79.899 Other long term (current) drug therapy; Z87.891 Personal history of nicotine dependence
CPT/HCPCS: 80048; 85025; 99284; J7030; A4216

== ENCOUNTER 2023-06-22 13:47 | Emergency (ER) | payer MEDICARE, MEDICAID, SELFPAY ==
[2023-06-22 13:48] VITALS: BP 112/71; PULSE 74; RESP 18; TEMP 35.9; O2SAT 100
--- NOTE | 2023-06-22 14:12 | EX.ED.DYSGE1 ---
HPI History of Present Illness Chief Complaint: General Illness Narrative Narrative: 83-year-old male, resident of the [facility] assisted [facility], presents after his swallow study with increased difficulty swallowing, and throat pain. His history and physical is limited secondary to his age. However, in review of his chart, he was seen in the emergency department 2 days ago, and told the physician that he has been having problems for weeks if not months. He was sent home/back to assisted living with IV in place. He had presented initially because reportedly he had been seen by otolaryngology and thought maybe there was an esophageal mass. Subsequently, patient has been discussed with Dr. Lamb for Dr. Brower regarding continued outpatient studies. He had a swallow study performed today which reportedly showed a diverticulum. Patient states he was told he should come to the emergency department and was brought here from radiology. [facility] Medical History Abnormality of gait Anemia Atherosclerotic heart disease of [place] coronary artery without angina pectoris Benign neoplasm of colon Bilateral edema of lower extremity Bilateral hearing loss Blind right eye Borderline type 2 diabetes mellitus BPH (benign prostatic hyperplasia) Cellulitis Chronic ulcer of right foot with fat layer exposed Constipation History of non-ST elevation myocardial infarction (NSTEMI) (11/12/18) HTN (hypertension) Hyperlipidemia Lymphedema Lymphedema Osteoarthritis of lumbar spine Physical debility PSA elevation Renal cyst Ulcer of left lower extremity with fat layer exposed Ulcer of right foot with fat layer exposed Ulcer of right lower extremity with fat layer exposed Venous insufficiency Venous insufficiency of both lower extremities Home Medications aspirin 81 mg tablet,delayed release 81 mg PO DAILY@0800 11/13/18 [Rx Last Taken 02/11/23] potassium chloride 20 mEq tablet,extended release(part/cryst) See Rx Instructions .Route .COMPLEX health maintenance 05/04/21 [History Last Taken 02/11/23] atorvastatin 40 mg tablet 40 mg PO QHS 08/07/21 [History Last Taken 02/11/23] clopidogrel 75 mg tablet (Plavix) 75 mg PO QHS HEART DISEASE 08/07/21 [History Last Taken 02/11/23] bisacodyl 10 mg rectal suppository 10 mg VT DAILY PRN Constipation 11/07/21 [History Last Taken Unknown] guaifenesin 600 mg tablet, extended release 12 hr (Mucinex) 600 mg PO Q12H PRN Cough 05/27/23 [History Last Taken Unknown] acetaminophen 325 mg tablet 650 mg (2 x 325 mg) PO Q6H PRN PRN Pain 1-10 Or Fever>100.7 #0 tabs 01/25/23 [Rx Last Taken Unknown] furosemide 40 mg tablet 40 mg PO DAILY #0 tabs 01/25/23 [Rx Last Taken Unknown] sennosides 8.6 mg-docusate sodium 50 mg tablet (Stool Softener-Stimulant Laxative) 2 tab PO BID #0 tabs 01/25/23 [Rx Last Taken 02/11/23] carbidopa 25 mg-levodopa 100 mg tablet 1 tab PO TID PARKINSONS 02/12/23 [History Last Taken 02/11/23] polyethylene glycol 3350 17 gram oral powder packet 17 g PO DAILY CONSTIPATION 02/12/23 [History Last Taken 02/11/23] magnesium hydroxide 2,400 mg/10 mL oral suspension (Milk Of Magnesia Concentrated) 10 ml PO BID CONSTIPATION 06/20/23 [History Last Taken Unknown] magnesium hydroxide 400 mg/5 mL oral suspension (Dulcolax (magnesium hydroxide)) 5 ml PO DAILY PRN constipation 06/20/23 [History Last Taken Unknown] Allergy/AdvReac Type Severity Reaction Status Date / Time raspberry Allergy Severe Vomiting Verified 06/22/23 13:51 lemon Allergy Intermediate blisters Verified 06/22/23 13:51 on hands [place] Allergy Intermediate blisters Verified 06/22/23 13:51 on hands strawberry Allergy Intermediate blisters Verified 06/22/23 13:51 on hands Family History Other Diabetes Surgical History Stented coronary artery (11/12/18) Social History Smoking Status: Former smoker ROS ROS ED ROS Narrative Constitutional: No fever, no chills. HEENT: No sore throat. No neck pain. No loss of vision. No rhinorrhea. Odynophagia/dysphagia increased mucus production. Cardiovascular: No chest pain. No palpitations. No pedal edema. Respiratory: No cough, no shortness of breath. Abdominal: No abdominal pain. No nausea. No vomiting. Genitourinary: No dysuria. No hematuria. Musculoskeletal: No myalgias. No arthralgias. Neurologic: No headaches. No dizziness. No lightheadedness. Skin: No rash. No change in color. Psychiatric: No depression. No anxiety. EXAM Physical Exam Narrative Exam Narrative: Afebrile. Vital signs noted. HEENT: Normocephalic. Atraumatic. PERRL, EOMI. Neck soft and supple. No point tenderness or step off. Airway patent. Cardiovascular: Regular rate and rhythm. No murmurs, rubs, or gallops appreciated. Respiratory: No tachypnea. Lungs clear to auscultation bilaterally. Gastrointestinal: Abdomen soft, nontender, with normoactive bowel sounds. No rebound or guarding. Neurological: Awake. Alert. Nonfocal, nonlateralizing. Skin: No rash. Normal color. No pallor. Musculoskeletal: No pedal edema. Full range of motion extremities. Const Vital Signs: 06/22/23 13:48 06/22/23 13:58 Temperature 96.7 F L Temperature Source Temporal Pulse Rate 74 Respiratory Rate 18 Respiratory Pattern Normal Blood Pressure 112/71 Blood Pressure Mean 84 Pulse Ox 100 Oxygen Delivery Method Room Air MDM MDM MDM Narrative Medical decision making narrative: I reviewed the patient's prior records, he is supposed to be following up with Dr. Boggs with gastroenterology for EGD. There is no formal radiology read on his outpatient swallow study/fluoroscopy. Additionally, he is actually at the [facility] in the prison facility side. I discussed patient with social work who is familiar with the patient. When he was seen 2 days ago, was 8 PM, and the patient had considered wanting to change nursing homes to [facility]. However, this can be done as an outpatient at the [facility]. It was decided that the patient should have his EGD performed as an outpatient, at that time, an IV was placed to continue IV fluid hydration. Patient has been reportedly eating and drinking well with just mild mucus production. Pulse ox is 100% on room air and he is afebrile here, not tachycardic. I will discuss the patient with Dr. Boggs with gastroenterology, and additionally with the on-call physician for Dr. Brower at the [facility]. After discussion with Dr. Boggs, he did review the outpatient imaging, and did not feel that the patient requires admission. As the patient already has a follow-up appointment on Monday, he was told to start a soft diet and liquids, and follow-up with Dr. Boggs on Monday who will address the diverticulum and perform the EGD. I did discuss patient with both Dr. Lamb and Dr. Pablito Brower who agree with outpatient discharge. There was no medical indication for admission at this time. Also, I discussed patient with social work, who discussed with the patient some of his other social issues. He does not want transferred to a different facility according to social work. His medical screening examination is also negative. Disposition is discharged to the [facility] in stable condition. History & Record Review Discussion w/independent historian: Patient Additional record(s) reviewed:: Prior ED visit Lab Data Attestation: I reviewed the patient's lab results. Management Discussion w/another healthcare provider: Lapel Baster and PCP Discharge Plan Triage Chief Complaint: General Illness ED Provider: Luis Amin Dx/Rx/DC Orders Clinical Impression: Esophageal diverticulum, Dysphagia Instructions: Anatomy of the Digestive System, ED Dysphagia (Adult) Prescriptions: No Action aspirin 81 MG tablet 81 mg PO DAILY@0800 0RF potassium chloride 20 mEq tablet,ER particles/crystals See Rx Instructions .ROUTE .COMPLEX Patient Comments: Take 2 tablets by mouth every morning AND 1 tablet every afternoon. Rx Instructions: 40meq orally each am and 20 mEq orally afternoon atorvastatin 40 mg tablet 40 mg PO QHS clopidogrel [Plavix] 75 mg tablet 75 mg PO QHS bisacodyl 10 mg Suppository 10 mg VT DAILY PRN (Reason: Constipation) guaifenesin [Mucinex] 600 mg Tablet Extended Release 12hr 600 mg PO Q12H PRN (Reason: Cough) furosemide 40 mg Tablet 40 mg PO DAILY Qty: 0 0RF Rx Instructions: Take an additional 40 mg dose at 5 PM for increased leg swelling or weight gain 5 pounds in 1 week. acetaminophen 325 mg Tablet 650 mg PO Q6H PRN PRN (Reason: Pain 1-10 Or Fever>100.7) Qty: 0 0RF sennosides-docusate sodium [Stool Softener-Stimulant Laxat] 8.6-50 mg Tablet 2 tab PO BID Qty: 0 0RF carbidopa-levodopa 25-100 mg tablet 1 tab PO TID polyethylene glycol 3350 17 gram powder in packet 17 g PO DAILY magnesium hydroxide [Dulcolax (magnesium hydroxide)] 400 mg/5 mL suspension 5 ml PO DAILY PRN (Reason: constipation) Rx Instructions: NOTIFY MD, IF NO BM IN 4 DAYS magnesium hydroxide [Milk Of Magnesia Concentrated] 2,400 mg/10 mL suspension 10 ml PO BID Rx Instructions: NOTIFY MD IF NO BM IN 4 DAYS Primary Care Provider: Pablito Brower Referrals: Pablito Brower MD [Primary Care Provider] - Olegario Boggs DO [Med Staff - Active Staff] - 06/26/23 Activity Restrictions/Additional Instructions: Follow-up with Dr. Boggs on Monday as scheduled for your EGD. Until then, you may eat soft foods and drink clear liquids. Disposition Disposition: Prison Facility Discharge Location: The [facility] at [place]
[2023-06-22 14:39] VITALS: BMI 25.4
--- NOTE | 2023-06-22 15:05 | CM.ED ---
Addendum entered by Serena Bain 06/22/23 15:23: SW called patient's friend per patient request; Denilson Chavez [phone]. Pt reports this is his emergency contact and he needs called so he can call his brother Man and tell him to pay the phone bill because his phone is off due to nonpayment. SW made contact with Mr. Chavez and he indicated he would call patient's brother right away regarding phone. Additionally, SW spoke with patient regarding advance directives. Pt denied having advance directives and declined further information. Pt reports he is uninterested in completing AD. Serena Bain MSW, HOSPITAL CHIEF FINANCIAL OFFICER Original Note: Social Work Dr. Amin referred patient for review. Pt has been in the ED multiple times while waiting for testing. Today patient had a failed cookie swallow test and post-outpatient testing, patient brought to the ED. SW introduced self and role to patient. Pt concerned about cell phone and making multiple phone calls at this point. SW provided support and agreed to call individuals after discussion. Pt reports residing at the [facility] for additional therapy on his legs. Pt was here 2 days ago requesting admission due to wanting testing done sooner. Pt anticipates admission today. SW asked about pt's concerns and how patient came to ED today. Pt reports he failed his swallow test and it was an emergency so they brought him to the ED. Pt has follow up with Dr. Boggs scheduled for Monday. Pt reports being tired of being shipped back and forth like an animal. SW provided emotional support and listened to patient's concerns. Pt has been [facility] and forth [facility] multiple times recently. ED visits present as being patient requested to speed testing up. Pt is frustrated and reports he cannot eat or drink anything. ED physician has communicated with [facility] and pt is to be on a soft diet. Pt additionally to follow up outpatient with Dr. Boggs on Monday per ED physician/Friend. Hospital admission is not appropriate at this time per medical staff and care can be provided on an outpatient basis. Plan: Pt to discharge to the [facility] and follow up with Dr. Boggs on Monday. Serena Bain MSW, HOSPITAL CHIEF FINANCIAL OFFICER
== END 2023-06-22 15:15 | disposition skilled nursing facility (03) ==
PROVIDERS: Emergency Provider Emergency Medicine; PCP Family Medicine; Visit Provider Emergency Medicine
DX: K22.5 Diverticulum of esophagus, acquired (principal); R13.10 Dysphagia, unspecified; I25.10 Atherosclerotic heart disease of native coronary artery without angina pectoris; E78.5 Hyperlipidemia, unspecified; I25.2 Old myocardial infarction; Z79.01 Long term (current) use of anticoagulants; Z79.82 Long term (current) use of aspirin; Z79.899 Other long term (current) drug therapy; Z87.891 Personal history of nicotine dependence
CPT/HCPCS: 99282

== ENCOUNTER 2023-06-22 19:35 | Observation (INO) | payer MEDICARE, MEDICAID, SELFPAY ==
[2023-06-22 19:38] VITALS: BP 130/67; PULSE 79; RESP 18; TEMP 36.4; O2SAT 98; BMI 25.9
[2023-06-22 20:18] VITALS: BP 129/64; PULSE 75; RESP 16; O2SAT 98
--- NOTE | 2023-06-22 20:21 | EX.ED.DYSGE1 ---
HPI History of Present Illness Chief Complaint: Other, Pain/Inj Narrative Narrative: 83-year-old male past medical history of odynophagia and dysphagia with esophageal diverticulum was seen in the emergency department by myself previously. He was discharged back to the senior care after discussion with Dr. Boggs and Dr. Brower. This was secondary to their not being a complete note in the EMR from his swallow study. It was reported that patient should be n.p.o. and was unable to clear 1 tablespoon of water from his throat. He presents from the [facility] for admission as he will require more urgent upper endoscopy. [facility] Medical History Abnormality of gait Anemia Atherosclerotic heart disease of [place] coronary artery without angina pectoris Benign neoplasm of colon Bilateral edema of lower extremity Bilateral hearing loss Blind right eye Borderline type 2 diabetes mellitus BPH (benign prostatic hyperplasia) Cellulitis Chronic ulcer of right foot with fat layer exposed Constipation History of non-ST elevation myocardial infarction (NSTEMI) (11/12/18) HTN (hypertension) Hyperlipidemia Lymphedema Lymphedema Osteoarthritis of lumbar spine Physical debility PSA elevation Renal cyst Ulcer of left lower extremity with fat layer exposed Ulcer of right foot with fat layer exposed Ulcer of right lower extremity with fat layer exposed Venous insufficiency Venous insufficiency of both lower extremities Home Medications aspirin 81 mg tablet,delayed release 81 mg PO DAILY@0800 11/13/18 [Rx Last Taken 02/11/23] potassium chloride 20 mEq tablet,extended release(part/cryst) See Rx Instructions .Route .COMPLEX health maintenance 05/04/21 [History Last Taken 02/11/23] atorvastatin 40 mg tablet 40 mg PO QHS 08/07/21 [History Last Taken 02/11/23] clopidogrel 75 mg tablet (Plavix) 75 mg PO QHS HEART DISEASE 08/07/21 [History Last Taken 02/11/23] bisacodyl 10 mg rectal suppository 10 mg [place] DAILY PRN Constipation 11/07/21 [History Last Taken Unknown] guaifenesin 600 mg tablet, extended release 12 hr (Mucinex) 600 mg PO Q12H PRN Cough 01/21/23 [History Last Taken Unknown] acetaminophen 325 mg tablet 650 mg (2 x 325 mg) PO Q6H PRN PRN Pain 1-10 Or Fever>100.7 #0 tabs 01/25/23 [Rx Last Taken Unknown] furosemide 40 mg tablet 40 mg PO DAILY #0 tabs 01/25/23 [Rx Last Taken Unknown] sennosides 8.6 mg-docusate sodium 50 mg tablet (Stool Softener-Stimulant Laxative) 2 tab PO BID #0 tabs 01/25/23 [Rx Last Taken 02/11/23] carbidopa 25 mg-levodopa 100 mg tablet 1 tab PO TID PARKINSONS 02/12/23 [History Last Taken 02/11/23] polyethylene glycol 3350 17 gram oral powder packet 17 g PO DAILY CONSTIPATION 02/12/23 [History Last Taken 02/11/23] magnesium hydroxide 2,400 mg/10 mL oral suspension (Milk Of Magnesia Concentrated) 10 ml PO BID CONSTIPATION 06/20/23 [History Last Taken Unknown] magnesium hydroxide 400 mg/5 mL oral suspension (Dulcolax (magnesium hydroxide)) 5 ml PO DAILY PRN constipation 06/20/23 [History Last Taken Unknown] Allergy/AdvReac Type Severity Reaction Status Date / Time raspberry Allergy Severe Vomiting Verified 06/22/23 19:36 lemon Allergy Intermediate blisters Verified 06/22/23 19:36 on hands [email or web address] Allergy Intermediate blisters Verified 06/22/23 19:36 on hands strawberry Allergy Intermediate blisters Verified 06/22/23 19:36 on hands Family History Other Diabetes Surgical History Stented coronary artery (11/12/18) Social History Smoking Status: Former smoker ROS ROS ED ROS Narrative Constitutional: No fever, no chills. HEENT: No sore throat. No neck pain. No loss of vision. No rhinorrhea. Difficulty swallowing, pain with swallowing. Cardiovascular: No chest pain. No palpitations. No pedal edema. Respiratory: No cough, no shortness of breath. Abdominal: No abdominal pain. No nausea. No vomiting. Genitourinary: No dysuria. No hematuria. Musculoskeletal: No myalgias. No arthralgias. Neurologic: No headaches. No dizziness. No lightheadedness. Skin: No rash. No change in color. Chronic leg ulcerations. Psychiatric: No depression. No anxiety. EXAM Physical Exam Narrative Exam Narrative: Afebrile. Vital signs noted. HEENT: Normocephalic. Atraumatic. PERRL, EOMI. Neck soft and supple. No point tenderness or step off. Airway patent. Handling own secretions. Cardiovascular: Regular rate and rhythm. No murmurs, rubs, or gallops appreciated. Respiratory: No tachypnea. Lungs clear to auscultation bilaterally. Gastrointestinal: Abdomen soft, nontender, with normoactive bowel sounds. No rebound or guarding. Neurological: Awake. Alert. Nonfocal, nonlateralizing. Skin: No rash. Normal color. No pallor. Musculoskeletal: No pedal edema. Full range of motion extremities. Const Vital Signs: 06/22/23 19:38 06/22/23 19:44 06/22/23 20:18 Temperature 97.5 F L Temperature Source Temporal Pulse Rate 79 75 Respiratory Rate 18 16 Respiratory Effort Normal Non-Labored Respiratory Pattern Normal Blood Pressure 130/67 H 129/64 H Blood Pressure Mean 88 85 Pulse Ox 98 98 Oxygen Delivery Method Room Air 06/22/23 21:36 Temperature Temperature Source Pulse Rate 72 Respiratory Rate 16 Respiratory Effort Respiratory Pattern Blood Pressure 127/64 H Blood Pressure Mean 85 Pulse Ox 95 Oxygen Delivery Method Room Air MDM MDM MDM Narrative Medical decision making narrative: I did review his prior records. Prior to his return, after discussion with the speech therapist, patient is to be made n.p.o. I discussed patient with Dr. Boggs who agrees with admission and upper endoscopy. I also discussed patient with Dr. Brower. I will draw baseline laboratories in the form of CBC and BMP and discussed patient with the hospitalist for admission. He will be made n.p.o. Saline lock was placed. Disposition is admit in stable condition. As on his BMP his glucose was slightly low at 71, just above normal, he will be started on D5 for fluid maintenance. In discussion with Dr. Brown he will be assigned to observation on the Medical Floor. Patient is in stable condition. History & Record Review Discussion w/independent historian: Patient Additional record(s) reviewed:: Prior ED visit and Prior labs Lab Data Attestation: I reviewed the patient's lab results. Lab results narrative: James reviewed the patient's laboratory work, white count normal at 7.9, stable 11.3, potassium is only slightly low at 3.4, his BUN is elevated at 20 but it has been higher in the past, he has a normal creatinine of 0.9, glucose of 71. Labs: Laboratory Results - last 24 hr 06/22/23 20:55 WBC 7.9 RBC 4.27 L Hgb 11.3 L Hct 35.6 L MCV 83.4 MCH 26.5 L MCHC 31.7 L RDW Std Deviation 44.4 H RDW Coeff of Donnie 14.6 Plt Count 237 MPV 9.2 Immature Gran % (Auto) 0.100 Neut % (Auto) 72.1 H Lymph % (Auto) 15.3 L [place] % (Auto) 10.5 H Eos % (Auto) 1.6 Baso % (Auto) 0.4 Absolute Neuts (auto) 5.7 Absolute Lymphs (auto) 1.21 Nucleated RBC % 0 Sodium 143 Potassium 3.4 L Chloride 111 H Carbon Dioxide 27.0 Anion Gap 5 BUN 20 H Creatinine 0.90 Estim Creat Clear Calc 85.31 Est GFR (MDRD) Af Amer 104 Est GFR (MDRD) Non-Af 86 BUN/Creatinine Ratio 22.1 H Glucose 71 L Calcium 8.5 Management Discussion w/another healthcare provider: Hospitalist Discharge Plan Dx/Rx/DC Orders Clinical Impression: Esophageal diverticulum, Odynophagia, Dysphagia, Hypokalemia Disposition Disposition: Acute Care [facility]
[2023-06-22 21:06] LABS: Absolute Lymphocyte Count 1.21 X10^3/uL (0.83-4.51); Absolute Neutrophil Count 5.7 X10^3/uL (2.0-7.7); Basophil# 0.03 X10^3/uL; Basophil% 0.4 % (0-1); Eosinophil# 0.13 X10^3/uL; Eosinophils% 1.6 % (0-5); Hematocrit 35.6 % (40-54); Hemoglobin 11.3 g/dL (13.0-16.5); Lymphocyte # 1.21 X10^3/ul (0.83-4.51); Lymphocyte % 15.3 % (19-41); Mean Corp Hgb Conc 31.7 g/dL (32-36); Mean Corpuscular Hgb 26.5 pg (27.0-32.0); Mean Corpuscular Volume 83.4 fL (80-94); Mean Platelet Vol. 9.2 fl (6.2-12.0); Monocyte# 0.83 X10^3/uL; Monocyte% 10.5 % (0-10); NRBC Flagged by Analyzer 0 % (0-5); Neutrophil # 5.72 X10^3/uL (2.7-7.7); Neutrophil % 72.1 % (47-70); Platelet Count 237 K/mm3 (150-450); RBC Distribution Width CV 14.6 % (11.6-14.6); RBC Distribution Width SD 44.4 fl (35.1-43.9); Red Blood Count 4.27 M/mm3 (4.6-6.2); White Blood Count 7.9 K/mm3 (4.4-11.0)
[2023-06-22 21:30] LABS: Anion Gap 5 (5-15); BUN 20 mg/dL (7-18); BUN/Creat Ratio 22.1 RATIO (10-20); Calcium,Total 8.5 mg/dL (8.5-10.1); Chloride 111 mmol/L (98-107); EST Glomerular Filtration Rate 86 mL/min (>60); Est Glom Filt Rate - Afr Amer 104 mL/min (>60); Estimated Creatinine Clearance 85.31 ml/min; Glucose 71 mg/dL (74-106); Potassium 3.4 mmol/L (3.5-5.1); Sodium Level 143 mmol/L (136-145)
[2023-06-22 21:36] VITALS: BP 127/64; PULSE 72; RESP 16; O2SAT 95
--- NOTE | 2023-06-22 23:00 | EX.PCM.CON.G ---
HPI Consult Data Date of Consult: 06/22/23 HPI Narrative Reason for Consultation: Dysphagia HPI Narrative: RADHA ZAMBRANO, is a 83 M who presents with progressive worsening dysphagia and odynophagia. He has a significant history of Parkinson disease; CAD; hypertension and BPH who presents to the emergency department with weeks to months of odynophagia and dysphagia. Of note on the day of presentation patient had modified barium swallow that was abnormal. Reportedly patient had a big diverticula of his esophagus. Patient was sent to the emergency department by his PCP. Patient was in the hospital ED a day before presentation. He was hydrated and discharged back to the [facility] where he lives. Esophagram was set up for this day of presentation. He underwent a video swallow test and was determined to have an esophageal diverticulum. The patient was made n.p.o. after that because he was deemed high risk for aspiration. [facility] Medical History Abnormality of gait Anemia Atherosclerotic heart disease of [place] coronary artery without angina pectoris Benign neoplasm of colon Bilateral edema of lower extremity Bilateral hearing loss Blind right eye Borderline type 2 diabetes mellitus BPH (benign prostatic hyperplasia) Cellulitis Chronic ulcer of right foot with fat layer exposed Constipation History of non-ST elevation myocardial infarction (NSTEMI) (11/12/18) HTN (hypertension) Hyperlipidemia Lymphedema Lymphedema Osteoarthritis of lumbar spine Physical debility PSA elevation Renal cyst Ulcer of left lower extremity with fat layer exposed Ulcer of right foot with fat layer exposed Ulcer of right lower extremity with fat layer exposed Venous insufficiency Venous insufficiency of both lower extremities Home Medications aspirin 81 mg tablet,delayed release 81 mg PO DAILY@0800 11/13/18 [Rx Last Taken 02/11/23] potassium chloride 20 mEq tablet,extended release(part/cryst) See Rx Instructions .Route .COMPLEX health maintenance 05/04/21 [History Last Taken 02/11/23] atorvastatin 40 mg tablet 40 mg PO QHS 08/07/21 [History Last Taken 02/11/23] clopidogrel 75 mg tablet (Plavix) 75 mg PO QHS HEART DISEASE 08/07/21 [History Last Taken 02/11/23] bisacodyl 10 mg rectal suppository 10 mg NM DAILY PRN Constipation 11/07/21 [History Last Taken Unknown] guaifenesin 600 mg tablet, extended release 12 hr (Mucinex) 600 mg PO Q12H PRN Cough 01/21/23 [History Last Taken Unknown] acetaminophen 325 mg tablet 650 mg (2 x 325 mg) PO Q6H PRN PRN Pain 1-10 Or Fever>100.7 #0 tabs 01/25/23 [Rx Last Taken Unknown] furosemide 40 mg tablet 40 mg PO DAILY #0 tabs 01/25/23 [Rx Last Taken Unknown] sennosides 8.6 mg-docusate sodium 50 mg tablet (Stool Softener-Stimulant Laxative) 2 tab PO BID #0 tabs 01/25/23 [Rx Last Taken 02/11/23] carbidopa 25 mg-levodopa 100 mg tablet 1 tab PO TID PARKINSONS 02/12/23 [History Last Taken 02/11/23] polyethylene glycol 3350 17 gram oral powder packet 17 g PO DAILY CONSTIPATION 02/12/23 [History Last Taken 02/11/23] magnesium hydroxide 2,400 mg/10 mL oral suspension (Milk Of Magnesia Concentrated) 10 ml PO BID CONSTIPATION 06/20/23 [History Last Taken Unknown] magnesium hydroxide 400 mg/5 mL oral suspension (Dulcolax (magnesium hydroxide)) 5 ml PO DAILY PRN constipation 06/20/23 [History Last Taken Unknown] Allergy/AdvReac Type Severity Reaction Status Date / Time raspberry Allergy Severe Vomiting Verified 06/22/23 19:36 lemon Allergy Intermediate blisters Verified 06/22/23 19:36 on hands [place] Allergy Intermediate blisters Verified 06/22/23 19:36 on hands strawberry Allergy Intermediate blisters Verified 06/22/23 19:36 on hands Family History Other Diabetes Surgical History Stented coronary artery (11/12/18) Social History Smoking Status: Former smoker ROS Constitutional Constitutional: Denies fatigue, fever(s), frequent falls, headache(s), increased appetite, lethargy or malaise Eyes Eyes: Denies exophthalmos, eye pain, floaters, foreign body, halo effect, irritation, itchy eyes or loss of central vision ENT HEENT: Denies headache(s), mouth pain, mucositis, nasal congestion, nasal discharge, nasal obstruction or nasal trauma Cardiovascular Cardiovascular: Reports edema; Denies dyspnea at rest, dyspnea on exertion, easily tiring during activity, flutter in chest, orthostatic symptoms, palpitations or paroxysmal nocturnal dyspnea Respiratory/Chest Respiratory/Chest: Denies excessive phlegm production, hemoptysis, hoarseness, inability to speak, mouth breathing or nail bed cyanosis Gastrointestinal Gastrointestinal: Denies dry heaves, dyspepsia, dysphagia, hematemesis, hematochezia, hemorrhoids, loose stools or melena Genitourinary Genitourinary: Denies flank pain, genital pain, hematuria, penile discharge or penile swelling Musculoskeletal Musculoskeletal: Denies loss of height, muscle cramps, muscle spasms, muscle weakness, myalgias, neck pain or numbness Integumentary Integumentary: Reports skin ulcer and skin swelling; Denies erythema, furuncle, hirsutism, jaundice, lesions or nail changes Neurologic Neurologic: Denies burning sensations, confusion, convulsions, disequilibrium, dizziness, focal weakness, frequent falls or headache(s) Psychiatric Psychiatric: Denies cognitive impairment, confusion, depression, difficulty concentrating, hallucinations, homicidal ideation, hopelessness or irritability Endocrine Endocrinology: Denies excessive sweating, fatigue, flushing, heat intolerance, increase in ring/shoe/hat size, palpitations or polydipsia Allergic/Immunologic Allergic/Immunologic: Denies tongue swelling, hives, urticaria, eczemia, wheezing or asthma Medical Records Data Medical Nutrition Assessment Dietitian: Malnutrition Criteria Met Start: 06/23/23 10:56 Freq: Status: Active Protocol: Document 06/23/23 10:56 (Rec: 06/23/23 10:56 AG Desktop) Nutrition Malnutrition Evidence of Malnutrition Exists Yes Malnutrition (severe): Chronic Evidenced By Suboptimal Energy Intake ( Severe),Weight Loss (Severe) Clinical Problem Acute Disease or Injury Related Malnutrition Etiology severe, acute malnutrition related to inadequate energy intake d/t swallowing difficulty Signs/Symptoms as evidenced by unintentional 5% wt loss < 1 month, estimated PO intake meeting < 50% of estimated energy needs x 1 week Status Active Problem Recommendation Dietitian Recommendations/Changes recommend regular diet- texture/consistency modifications per INSTRUMENTATION SPECIALIST; ensure clear TID w/ meals and [place]yland BID for wound healing. If unable to advance PO diet, recommend enteral nutrition support- consult RDN for further recommendations as indicated. Lab / Micro Data 06/22/23 20:55 06/22/23 20:55 Labs: Laboratory Results - last 24 hr 06/22/23 20:55: WBC 7.9, RBC 4.27 L, Hgb 11.3 L, Hct 35.6 L, MCV 83.4, MCH 26.5 L, MCHC 31.7 L, RDW Std Deviation 44.4 H, RDW Coeff of Donnie 14.6, Plt Count 237, MPV 9.2, Immature Gran % (Auto) 0.100, Neut % (Auto) 72.1 H, Lymph % (Auto) 15.3 L, Owen % (Auto) 10.5 H, Eos % (Auto) 1.6, Baso % (Auto) 0.4, Absolute Neuts (auto) 5.7, Absolute Lymphs (auto) 1.21, Nucleated RBC % 0, Sodium 143, Potassium 3.4 L, Chloride 111 H, Carbon Dioxide 27.0, Anion Gap 5, BUN 20 H, Creatinine 0.90, Estim Creat Clear Calc 85.31, Est GFR (MDRD) Af Amer 104, Est GFR (MDRD) Non-Af 86, BUN/Creatinine Ratio 22.1 H, Glucose 71 L, Calcium 8.5 Assessment & Plan Assessment/Plan (1) Esophageal diverticulum: (2) Hypokalemia: (3) Dysphagia: QUALIFIERS: Dysphagia type: unspecified Qualified Code(s): R13.10 - Dysphagia, unspecified (4) Odynophagia: (5) Hypoglycemia: PLAN: Plan 83-year-old gentleman with progressive dysphagia, Parkinson's disease and determined to have esophageal dysmotility and aspiration risk secondary to esophageal diverticulum and possible distal esophageal stricture. The presence of Parkinson's disease is associated with cricopharyngeal dysfunction, which included the presence of a Zenker's diverticulum. Dysphagia is frequently present in individuals with Parkinson?s disease (PD). Abnormalities may be localized to the oral, pharyngeal, or esophageal level and may be evident even in the early stages of the disease. Individuals with dysphagia have an increased risk for aspiration, and silent aspiration may be present in up to one-third of patients with PD. The modified barium swallow (MBS) study is the standard screening test for dysphagia in PD, but it is important to remember that esophageal abnormalities may not be visualized on the MBS and a barium esophagram should be considered if the MBS is negative. Surgical treatment may be curative for structural abnormalities such as a Zenker?s diverticulum, but when the problem is due to oropharyngeal or esophageal dysmotility, speech/swallowing therapy is the most effective treatment. Patient will undergo an upper endoscopy to evaluate his upper GI tract to see if there is any endoscopic modalities that can be used in order to improve his esophageal dysphagia. He may eventually need a PEG tube. Charges/Coding Visit Charges Inpatient E&M: 26588 Init Hosp L3
--- NOTE | 2023-06-22 23:00 | HP.PCM.HOS_ITS ---
[facility] - General General Date of Admission: 06/22/23 Date of Service: 06/22/23 Chief Complaint: Dysphagia and odynophagia HPI Narrative RADHA ZAMBRANO, is a 83 M with a significant history of Parkinson disease; CAD; hypertension and BPH who presents to the emergency department with weeks to months of odynophagia and dysphagia. Of note on the day of presentation patient had modified barium swallow that was abnormal. Reportedly patient had a big diverticula of his esophagus. Patient was sent to the emergency department by his PCP. ED doctor discussed the case with gastroenterology who was considering intervention in a.m. Patient was in the hospital ED a day before presentation. He was hydrated and discharged back to the [facility] where he lives. Esophagram was set up for this day of presentation. Per the esophagram patient was made n.p.o. [facility] Medical History Abnormality of gait Anemia Atherosclerotic heart disease of [place] coronary artery without angina pectoris Benign neoplasm of colon Bilateral edema of lower extremity Bilateral hearing loss Blind right eye Borderline type 2 diabetes mellitus BPH (benign prostatic hyperplasia) Cellulitis Chronic ulcer of right foot with fat layer exposed Constipation History of non-ST elevation myocardial infarction (NSTEMI) (11/12/18) HTN (hypertension) Hyperlipidemia Lymphedema Lymphedema Osteoarthritis of lumbar spine Physical debility PSA elevation Renal cyst Ulcer of left lower extremity with fat layer exposed Ulcer of right foot with fat layer exposed Ulcer of right lower extremity with fat layer exposed Venous insufficiency Venous insufficiency of both lower extremities Home Medications aspirin 81 mg tablet,delayed release 81 mg PO DAILY@0800 11/13/18 [Rx Last Taken 02/11/23] potassium chloride 20 mEq tablet,extended release(part/cryst) See Rx Instructions .Route .COMPLEX health maintenance 05/04/21 [History Last Taken 02/11/23] atorvastatin 40 mg tablet 40 mg PO QHS 08/07/21 [History Last Taken 02/11/23] clopidogrel 75 mg tablet (Plavix) 75 mg PO QHS HEART DISEASE 08/07/21 [History Last Taken 02/11/23] bisacodyl 10 mg rectal suppository 10 mg [place] DAILY PRN Constipation 11/07/21 [Hi story Last Taken Unknown] guaifenesin 600 mg tablet, extended release 12 hr (Mucinex) 600 mg PO Q12H PRN Cough 01/21/23 [History Last Taken Unknown] acetaminophen 325 mg tablet 650 mg (2 x 325 mg) PO Q6H PRN PRN Pain 1-10 Or Fever>100.7 #0 tabs 01/25/23 [Rx Last Taken Unknown] furosemide 40 mg tablet 40 mg PO DAILY #0 tabs 01/25/23 [Rx Last Taken Unknown] sennosides 8.6 mg-docusate sodium 50 mg tablet (Stool Softener-Stimulant Laxative) 2 tab PO BID #0 tabs 01/25/23 [Rx Last Taken 02/11/23] carbidopa 25 mg-levodopa 100 mg tablet 1 tab PO TID PARKINSONS 02/12/23 [History Last Taken 02/11/23] polyethylene glycol 3350 17 gram oral powder packet 17 g PO DAILY CONSTIPATION 02/12/23 [History Last Taken 02/11/23] magnesium hydroxide 2,400 mg/10 mL oral suspension (Milk Of Magnesia Concentrated) 10 ml PO BID CONSTIPATION 06/20/23 [History Last Taken Unknown] magnesium hydroxide 400 mg/5 mL oral suspension (Dulcolax (magnesium hydroxide)) 5 ml PO DAILY PRN constipation 06/20/23 [History Last Taken Unknown] Allergy/AdvReac Type Severity Reaction Status Date / Time raspberry Allergy Severe Vomiting Verified 06/22/23 19:36 lemon Allergy Intermediate blisters Verified 06/22/23 19:36 on hands [place] Allergy Intermediate blisters Verified 06/22/23 19:36 on hands strawberry Allergy Intermediate blisters Verified 06/22/23 19:36 on hands Family History Other Diabetes Surgical History Stented coronary artery (11/12/18) Social History Smoking Status: Former smoker ROS ROS Narrative Pertinent positives and pertinent negatives as noted in HPI. All other systems were reviewed and are negative Vital Signs Vital Signs Vital Signs: 06/22/23 19:38 06/22/23 19:44 06/22/23 20:18 Temperature 97.5 F L Temperature Source Temporal Pulse Rate 79 75 Respiratory Rate 18 16 Respiratory Effort Normal Non-Labored Respiratory Pattern Normal Blood Pressure 130/67 H 129/64 H Blood Pressure Mean 88 85 Pulse Ox 98 98 Oxygen Delivery Method Room Air 06/22/23 21:36 Temperature Temperature Source Pulse Rate 72 Respiratory Rate 16 Respiratory Effort Respiratory Pattern Blood Pressure 127/64 H Blood Pressure Mean 85 Pulse Ox 95 Oxygen Delivery Method Room Air Weight Weight: 104.2 kg Body Mass Index (BMI) 25.9 Physical Exam Narrative Physical exam: General: Well-nourished, well-developed. Head: Normocephalic, atraumatic, no tenderness Eyes: Vision is grossly intact. EOMI ENT, no trauma, moist mucous membranes, no rhinorrhea Neck: Nontender, No thyromegaly. CVS: Regular rate and rhythm. S1-S2 present. No murmur, gallop or rub. Respiratory : clear to auscultation bilaterally, chest wall nontender Abdomen: Soft, nontender, nondistended, normal bowel sounds, no masses : Deferred Back: Nontender, no CVA tenderness, no midline spinal tenderness, deformities, step-offs Extremities: Bilateral lower legs with Hiro wraps for lymphedema. Skin: Normal color, no trauma, abrasions Neuro: Alert, oriented, cranial nerves II through XII grossly intact. Psychiatry: Normal mood. Normal affect. Not depressed. Not anxious. Results Lab / Micro Data 06/22/23 20:55 06/22/23 20:55 Labs: Laboratory Results - last 24 hr 06/22/23 20:55: WBC 7.9, RBC 4.27 L, Hgb 11.3 L, Hct 35.6 L, MCV 83.4, MCH 26.5 L, MCHC 31.7 L, RDW Std Deviation 44.4 H, RDW Coeff of Donnie 14.6, Plt Count 237, MPV 9.2, Immature Gran % (Auto) 0.100, Neut % (Auto) 72.1 H, Lymph % (Auto) 15.3 L, [place] % (Auto) 10.5 H, Eos % (Auto) 1.6, Baso % (Auto) 0.4, Absolute Neuts (auto) 5.7, Absolute Lymphs (auto) 1.21, Nucleated RBC % 0, Sodium 143, Potassium 3.4 L, Chloride 111 H, Carbon Dioxide 27.0, Anion Gap 5, BUN 20 H, Creatinine 0.90, Estim Creat Clear Calc 85.31, Est GFR (MDRD) Af Amer 104, Est GFR (MDRD) Non-Af 86, BUN/Creatinine Ratio 22.1 H, Glucose 71 L, Calcium 8.5 Assessment & Plan Assessment/Plan (1) Esophageal diverticulum: (2) Hypokalemia: (3) Dysphagia: QUALIFIERS: Dysphagia type: unspecified Qualified Code(s): R13.10 - Dysphagia, unspecified (4) Odynophagia: (5) Hypoglycemia: PLAN: Plan Esophageal diverticulum Modified barium swallow results reviewed. We will keep patient n.p.o. with no meds. GI consult. Hypoglycemia Blood glucose of 71 on BMP. Started on dextrose infusion at the emergency department. Infusion reordered with potassium. Trend BMP. Hypokalemia Potassium 3.4 on presentation. Dextrose with potassium infusion as above. DVT Prophylaxis: SCDs. Time spent in the patient's overall evaluation,decision-making process, review of diagnostic data, adjustment of management, discussion with other providers, nursing and ancillary staff involved in patient's care documentation, 70 m inutes. Charges/Coding Visit Charges Inpatient E&M: 38760 Init Hosp L3
[2023-06-22] MEDS: Dextrose 5%-Water (1000mL Bag) 1,000 ML 100 ML IV (23:27)
[2023-06-23] VITALS (10 sets, daily range): BP systolic 109–132; BP diastolic 56–66; PULSE 60–80; RESP 12–18; TEMP 36.3–37.7; O2SAT 94–99; BMI 24.7
[2023-06-23] MEDS: Potassium Chloride 40 MEQ in Dextrose 5%/0.9% NaCl 1,000 ML 100 MEQ IV (00:54)
--- NOTE | 2023-06-23 10:01 | PCM.PN.HOSP ---
Subjective Subjective Dysphagia, discussed the case with speech therapy findings on swallow evaluation consistent with a Zenker's diverticulum Objective Data Objective Data Vital Signs: Vital Signs Temp Pulse Resp BP Pulse Ox O2 Del Method 97.4 F L 61 16 116/56 L 95 Room Air 06/23/23 09:37 06/23/23 09:37 06/23/23 09:37 06/23/23 09:37 06/23/23 09:37 06/23/23 09:37 Oxygen Delivery Method Room Air Weight: 219 lb 5.759 oz Body Mass Index (BMI) 24.7 Intake & Output: Intake and Output for Last 24 Hours 06/22/23 06/23/23 06/24/23 03:59 03:59 03:59 Intake Total 151.67 / 151.67 Output Total 200 / 200 Balance 151.67 / 151.67 -200 / -200 Lab / Micro Data 06/22/23 20:55 06/22/23 20:55 Labs: Laboratory Results - last 24 hr 06/22/23 20:55: WBC 7.9, RBC 4.27 L, Hgb 11.3 L, Hct 35.6 L, MCV 83.4, MCH 26.5 L, MCHC 31.7 L, RDW Std Deviation 44.4 H, RDW Coeff of Donnie 14.6, Plt Count 237, MPV 9.2, Immature Gran % (Auto) 0.100, Neut % (Auto) 72.1 H, Lymph % (Auto) 15.3 L, [place] % (Auto) 10.5 H, Eos % (Auto) 1.6, Baso % (Auto) 0.4, Absolute Neuts (auto) 5.7, Absolute Lymphs (auto) 1.21, Nucleated RBC % 0, Sodium 143, Potassium 3.4 L, Chloride 111 H, Carbon Dioxide 27.0, Anion Gap 5, BUN 20 H, Creatinine 0.90, Estim Creat Clear Calc 85.31, Est GFR (MDRD) Af Amer 104, Est GFR (MDRD) Non-Af 86, BUN/Creatinine Ratio 22.1 H, Glucose 71 L, Calcium 8.5 Physical Exam Narrative General: Alert, Oriented x3, Cooperative, No apparent distress HEENT: Atraumatic, PERRLA, EOMI, Normocephalic Oral: Dry mucosa Neck: Supple, No JVD Lungs: Diminished, normal air movement, No rhonchi, No wheeze, No rales Cardiovascular: Regular rate, Regular Rhythm, Normal S1, Normal S2, No murmurs Abdomen: Soft, Non Tender, Non-Distended, No Hepato-splenomegaly Extremities: No edema, Capillary Refill Less than 3 Seconds Skin: No rashes, No breakdown Musculoskeletal: No Tenderness to Palpation of Joints or Extremities Neurological: Motor function is slow but no leadpipe rigidity is noted, Sensory exam intact to light touch and pain Psych/Mental Status: Flat affect Assessment & Plan Assessment/Plan (1) Esophageal diverticulum: (2) Hypokalemia: (3) Dysphagia: QUALIFIERS: Dysphagia type: unspecified Qualified Code(s): R13.10 - Dysphagia, unspecified (4) Odynophagia: (5) Hypoglycemia: PLAN: Plan 1. Zenker's diverticulum with odynophagia dysphagia ? Appreciate GIs assistance ? N.p.o. strict ? We will place him on IV fluids with glucose 2. Parkinson's disease ? Unfortunately have to hold his home medications given his strict n.p.o. ? Can restart these medications when able 3. HTN/HLD/CAD status post stent ? Hold aspirin and Plavix as his stent was in 2019 pending speech eval ? We will hold his Lipitor as well as his Lasix DVT: SCDs Charges/Coding Visit Charges Inpatient E&M: 83490 Subs Hosp L2
--- NOTE | 2023-06-23 10:35 | WOUNDNOTE ---
wound photo: bilateral lower legs
--- NOTE | 2023-06-23 10:38 | WOUNDNOTE ---
wound photo: left lower leg/foot
--- NOTE | 2023-06-23 10:39 | WOUNDNOTE ---
wound photo: right lower leg
--- NOTE | 2023-06-23 10:40 | WOUNDNOTE ---
wound photo: right lateral ankle/foot
--- NOTE | 2023-06-23 10:41 | WOUNDNOTE ---
wound photo: right medial ankle/foot
[2023-06-23] MEDS: Dextrose 5%/0.9% NaCl 1,000 ML 75 ML IV ×2 (10:43→18:24)
--- NOTE | 2023-06-23 11:46 | CASEMGMT ---
Discharge Planning Updates sent to [facility] via [facility]. Asked if precert will be needed. Awaiting response. Elizabeth Sampson, Discharge Planning Asst.
--- NOTE | 2023-06-23 15:45 | EGD_PTH ---
PATIENT: RADHA ZAMBRANO LOC: [facility] U#:[id number] AGE/SX: 83/M ROOM: [facility] RE06/22/[address]: Dr. Abdiaziz Conklin MD : 1940 BED: 1 DIS: 06/27/2023 SPEC #: [id number] RECD: 06/23/23 18:30 STATUS: CRYSTAL REScott #: [id number] KERVIN: 06/23/23 15:[address]: Olegario Boggs DEPT: SURGICAL PATHOLOGY RECD BY: Liz Kumar ENTERED: 06/26/23 07:54 SP TYPE: EGD BIOPSY OTHR DR: MD Dr. Titi Barber MD Dr. Paul Nielsen, MD Dr. Rahsaan Friend, DO Tissues: A - Esophageal mucous membrane B - Esophageal mucous membrane C - Esophageal mucous membrane Procedures: Special Stain Group II Special Stain Group I Surgery Specimen Level IV GMS Stain (control) Alcian Blue/PAS (control) Comments: @ Ordering doctor for SUIV edited from to @ by RGOOD at 06/26/23 152 @ Submitting doctor edited from to @ by RGOOD at 06/26/23 1523 HEADER OPERATION: EGD with dilation and biopsies PRE-OP DIAGNOSIS: Dysphagia TISSUE SUBMITTED: A - Distal esophagus biopsy, B - Random esophagus biopsy, C - Proximal esophagus biopsy MICROSCOPIC DIAGNOSIS A. Distal esophagus, biopsy: Fragments of gastroesophageal mucosa with chronic inflammation. Intestinal metaplasia (goblet cell metaplasia) not identified. See comment. B. Esophagus, random biopsy: Fragments of squamous epithelium with moderate acute inflammation. A minute fragment of gastric mucosa, negative for intestinal metaplasia (goblet cell metaplasia). See comment. C. Proximal esophagus, biopsy: Fragments of squamous epithelium with focal ulceration and moderate acute inflammation. See comment. SJ:rg 06/27/2023 COMMENT A. Alcian blue/PAS stain with matched control is used in the evaluation of the specimen. B & C. Special stain for fungi is negative for organisms; matched control is appropriate. Increased number of eosinophils consistent with eosinophilic esophagitis are not seen. MICROSCOPIC DESCRIPTION Slides are reviewed. GROSS DESCRIPTION A - Received in fixative is one container labeled with the patient's name and designated distal esophagus. The specimen consists of multiple irregular fragments of light urrutia soft tissue that in aggregate measure 1.0 x 0.3 x 0.1 cm. The specimen is totally submitted in one cassette. B - Received in fixative is one container labeled with the patient's name and designated random esophagus biopsy. The specimen consists of multiple irregular fragments of light urrutia soft tissue that in aggregate measure 1.5 x 0.5 x 0.1 cm. The specimen is totally submitted in one cassette. C - Received in fixative is one container labeled with the patient's name and designated proximal esophagus. The specimen consists of multiple irregular fragments of light urrutia soft tissue that in aggregate measure 1.0 x 0.3 x 0.1 cm. The specimen is totally submitted in one cassette. / AMI:jacinda 06/26/2023 TC:2 CPT: 35101 x3, 87948, 48697 x2
--- NOTE | 2023-06-23 16:02 | CASEMGMT ---
Patient is from [place]. Patient will need pre-cert to return. Maral Ross MUTUEL DEPARTMENT MANAGER MARSHA
--- NOTE | 2023-06-23 16:06 | OP.EGD_ITS ---
Patient Name: Denilson Boles Procedure Date: 06/23/2023 3:34 PM Date of : 1940 Age: 83 Procedure: Upper GI endoscopy Indications: Dysphagia Providers: Olegario Boggs DO Medicines: Monitored Anesthesia Care Patient Profile: This is an 83 year old male. Refer to note in patient chart for documentation of history and physical. Patient has symptoms of dysphagia with both liquids and solids. Complications: No immediate complications. Procedure: Pre-Anesthesia Assessment: - Prior to the procedure, a History and Physical was performed, and patient medications and allergies were reviewed. The patient is competent. The risks and benefits of the procedure and the sedation options and risks were discussed with the patient. All questions were answered and informed consent was obtained. Patient identification and proposed procedure were verified by the physician in the pre-procedure area. Mental Status Examination: alert and oriented. Airway Examination: normal oropharyngeal airway and neck mobility. Respiratory Examination: clear to auscultation. Prophylactic Antibiotics: The patient does not require prophylactic antibiotics. Prior Anticoagulants: The patient has taken no anticoagulant or antiplatelet agents. After reviewing the risks and benefits, the patient was deemed in satisfactory condition to undergo the procedure. The anesthesia plan was to use monitored anesthesia care (MAC). Immediately prior to administration of medications, the patient was re-assessed for adequacy to receive sedatives. The heart rate, respiratory rate, oxygen saturations, blood pressure, adequacy of pulmonary ventilation, and response to care were monitored throughout the procedure. The physical status of the patient was re-assessed after the procedure. After obtaining informed consent, the endoscope was passed under direct vision. Throughout the procedure, the patient's blood pressure, pulse, and oxygen saturations were monitored continuously. The Endoscope was introduced through the mouth, and advanced to the second part of duodenum. The upper GI endoscopy was accomplished without difficulty. The patient tolerated the procedure well. Scope In: 3:46:20 PM Scope Out: 3:59:31 PM Total Procedure Duration Time 0 hours 13 minutes 11 seconds Findings: Food was found at the cricopharyngeus. Removal was accomplished with a Ahn net. Verification of patient identification for the specimen was done. Estimated blood loss was minimal. A non-bleeding diverticulum with a large opening and no stigmata of recent bleeding was found at the cricopharyngeus. A high-grade of narrowing Schatzki ring was found at the cricopharyngeus. A guidewire was placed and the scope was withdrawn. Dilation was performed with a Savary dilator with no resistance at 51 Fr. The dilation site was examined and showed moderate mucosal disruption. Estimated blood loss was minimal. Mucosal changes including ringed esophagus, feline appearance, longitudinal furrows and small-caliber esophagus were found in the middle third of the esophagus. Biopsies were obtained from the proximal and distal esophagus with cold forceps for histology of suspected eosinophilic esophagitis. Verification of patient identification for the specimen was done. Estimated blood loss was minimal. A medium-sized hiatal hernia was present. The exam of the stomach was otherwise normal. No gross lesions were noted in the duodenal bulb. Impression: - Food at the cricopharyngeus. Removal was successful. - Diverticulum at the cricopharyngeus. - High-grade of narrowing Schatzki ring. Dilated. 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 - Medium-sized hiatal hernia. - No gross lesions in the duodenal bulb. - Biopsies were taken with a cold forceps for evaluation of eosinophilic esophagitis. Recommendation: - Return patient to hospital wu for ongoing care. - Diet per speech therapy. - Use Protonix (pantoprazole) 40 mg IV daily. - Continue present medications. Procedure Code(s): --- Professional --- 93131, Esophagogastroduodenoscopy, flexible, transoral; with removal of foreign body(s) 24892, 51, Esophagogastroduodenoscopy, flexible, transoral; with insertion of guide wire followed by passage of dilator(s) through esophagus over guide wire 47045, 59, Esophagogastroduodenoscopy, flexible, transoral; with biopsy, single or multiple CPT copyright 2021 [employer]. All rights reserved. The codes documented in this report are preliminary and upon game moderator review may be revised to meet current compliance requirements. Olegario Boggs DO 06/23/2023 4:06:21 PM This report has been signed electronically. Number of Addenda: 0 Note Initiated On: 06/23/2023 3:34 PM
--- NOTE | 2023-06-23 16:07 | OP.CCLET_ITS ---
06/23/2023 Pablito Brower MD [address] [id number] Re : Upper GI endoscopy procedure for [facility] Dear Dr. Brower This procedure was performed on Friday, June 23, 2023. My impressions and recommendations are as follows: Impressions : - Food at the cricopharyngeus. Removal was successful. - Diverticulum at the cricopharyngeus. - High-grade of narrowing Schatzki ring. Dilated. 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 - Medium-sized hiatal hernia. - No gross lesions in the duodenal bulb. - Biopsies were taken with a cold forceps for evaluation of eosinophilic esophagitis. Recommendations : - Return patient to hospital wu for ongoing care. - Diet per speech therapy. - Use Protonix (pantoprazole) 40 mg IV daily. - Continue present medications. My findings are described in the full procedure note, which is enclosed. If I can be of further assistance, please feel free to contact me at . Sincerely, Olegario Boggs, 06/23/2023 4:06:21 PM This report has been signed electronically.
--- NOTE | 2023-06-23 16:38 | CASEMGMT ---
Discharge Planning Attempted to complete [facility] but patient was out of room. Elizabeth Sampson, Discharge Planning Asst.
--- NOTE | 2023-06-23 16:59 | NURSING ---
per Dr Boggs RN instructed to preform bedside swallow eval PO fluids. see documentation.
[2023-06-23] MEDS: 0.9% Saline Lock 10 ML Syringe IV (18:22)
[2023-06-23] MEDS: Pantoprazole Sodium 40 MG in 0.9% Normal Saline (100mL MB+) 100 ML 330 MG IV (21:40)
[2023-06-24 02:26] VITALS: BP 102/54; PULSE 55; RESP 16; TEMP 36.8; O2SAT 97
[2023-06-24] MEDS: Dextrose 5%/0.9% NaCl 1,000 ML 75 ML IV ×2 (06:45→20:46)
[2023-06-24 07:01] LABS: Absolute Neutrophil Count 4.1 X10^3/uL (2.0-7.7); Basophil# 0.02 X10^3/uL; Basophil% 0.3 % (0-1); Eosinophil# 0.19 X10^3/uL; Eosinophils% 3.1 % (0-5); Hematocrit 31.9 % (40-54); Hemoglobin 9.8 g/dL (13.0-16.5); Lymphocyte % 19.5 % (19-41); Mean Corp Hgb Conc 30.7 g/dL (32-36); Mean Corpuscular Hgb 26.1 pg (27.0-32.0); Mean Corpuscular Volume 84.8 fL (80-94); Mean Platelet Vol. 9.3 fl (6.2-12.0); Monocyte# 0.67 X10^3/uL; Monocyte% 10.9 % (0-10); NRBC Flagged by Analyzer 0 % (0-5); Neutrophil # 4.05 X10^3/uL (2.7-7.7); Neutrophil % 65.9 % (47-70); Platelet Count 216 K/mm3 (150-450); RBC Distribution Width CV 14.7 % (11.6-14.6); RBC Distribution Width SD 45.4 fl (35.1-43.9); Red Blood Count 3.76 M/mm3 (4.6-6.2); White Blood Count 6.2 K/mm3 (4.4-11.0)
[2023-06-24 07:47] LABS: Anion Gap 4 (5-15); BUN 8 mg/dL (7-18); BUN/Creat Ratio 9.5 RATIO (10-20); Calcium,Total 7.9 mg/dL (8.5-10.1); Chloride 109 mmol/L (98-107); Creatinine, Serum 0.84 mg/dL (0.70-1.30); EST Glomerular Filtration Rate 93 mL/min (>60); Est Glom Filt Rate - Afr Amer 113 mL/min (>60); Estimated Creatinine Clearance 91.41 ml/min; Glucose 106 mg/dL (74-106); Magnesium 2.1 mg/dL (1.6-2.6); Phosphorus 2.4 mg/dL (2.5-4.9); Potassium 3.4 mmol/L (3.5-5.1); Sodium Level 141 mmol/L (136-145)
[2023-06-24 08:30] VITALS: BP 99/55; PULSE 55; RESP 16; TEMP 36.3; O2SAT 96
[2023-06-24] MEDS: Pantoprazole Sodium 40 MG in 0.9% Normal Saline (100mL MB+) 100 ML 330 MG IV ×2 (09:02→20:44)
--- NOTE | 2023-06-24 12:16 | PN.HOSP_ITS ---
Subjective Subjective Doing well, more alert today. He did pass a swallow evaluation and can tolerate a regular diet today. Objective Data Objective Data Vital Signs: Vital Signs Temp Pulse Resp BP Pulse Ox O2 Del Method 97.4 F L 55 L 16 99/55 L 96 Room Air 06/24/23 08:30 06/24/23 08:30 06/24/23 08:30 06/24/23 08:30 06/24/23 08:30 06/24/23 08:30 Oxygen Delivery Method Room Air Weight: 219 lb 5.759 oz Body Mass Index (BMI) 24.7 Intake & Output: Intake and Output for Last 24 Hours 06/23/23 06/24/23 06/25/23 03:59 03:59 03:59 Intake Total 151.67 / 151.67 2200.42 / 2200.42 1236.25 / 1236.25 Output Total 1300 / 1300 Balance 151.67 / 151.67 900.42 / 900.42 1236.25 / 1236.25 Medical Nutrition Assessment Dietitian: Malnutrition Criteria Met Start: 06/23/23 10:56 Freq: Status: Active Protocol: Document 06/23/23 10:56 AG (Rec: 06/23/23 10:56 AG Desktop) Nutrition Malnutrition Evidence of Malnutrition Exists Yes Malnutrition (severe): Chronic Evidenced By Suboptimal Energy Intake ( Severe),Weight Loss (Severe) Clinical Problem Acute Disease or Injury Related Malnutrition Etiology severe, acute malnutrition related to inadequate energy intake d/t swallowing difficulty Signs/Symptoms as evidenced by unintentional 5% wt loss < 1 month, estimated PO intake meeting < 50% of estimated energy needs x 1 week Status Active Problem Recommendation Dietitian Recommendations/Changes recommend regular diet- texture/consistency modifications per ENGINEER SECOND ASSISTANT; ensure clear TID w/ meals and Ryland BID for wound healing. If unable to advance PO diet, recommend enteral nutrition support- consult RDN for further recommendations as indicated. Lab / Micro Data 06/24/23 06:02 06/24/23 06:02 Labs: Laboratory Results - last 24 hr 06/24/23 06:02: WBC 6.2, RBC 3.76 L, Hgb 9.8 L, Hct 31.9 L, MCV 84.8, MCH 26.1 L , MCHC 30.7 L, RDW Std Deviation 45.4 H, RDW Coeff of Donnie 14.7 H, Plt Count 216, MPV 9.3, Immature Gran % (Auto) 0.300, Neut % (Auto) 65.9, Lymph % (Auto) 19.5, [place] % (Auto) 10.9 H, Eos % (Auto) 3.1, Baso % (Auto) 0.3, Absolute Neuts (auto) 4.1, Absolute Lymphs (auto) 1.20, Nucleated RBC % 0, Sodium 141, Potassium 3.4 L , Chloride 109 H, Carbon Dioxide 28.0, Anion Gap 4 L, BUN 8, Creatinine 0.84, Estim Creat Clear Calc 91.41, Est GFR (MDRD) Af Amer 113, Est GFR (MDRD) Non-Af 93, BUN/Creatinine Ratio 9.5 L, Glucose 106, Calcium 7.9 L, Phosphorus 2.4 L, Magnesium 2.1 Physical Exam Narrative General: Alert, Oriented x3, Cooperative, No apparent distress HEENT: Atraumatic, PERRLA, EOMI, Normocephalic Oral: Moist mucosa Neck: Supple, No JVD Lungs: Diminished, normal air movement, No rhonchi, No wheeze, No rales Cardiovascular: Regular rate, Regular Rhythm, Normal S1, Normal S2, No murmurs Abdomen: Soft, Non Tender, Non-Distended, No Hepato-splenomegaly Extremities: No edema, Capillary Refill Less than 3 Seconds Skin: No rashes, No breakdown Musculoskeletal: No Tenderness to Palpation of Joints or Extremities Neurological: Motor function is slow but no leadpipe rigidity is noted, Sensory exam intact to light touch and pain Psych/Mental Status: Flat affect Assessment & Plan Assessment/Plan (1) Esophageal diverticulum: (2) Hypokalemia: (3) Dysphagia: QUALIFIERS: Dysphagia type: unspecified Qualified Code(s): R13.10 - Dysphagia, unspecified (4) Odynophagia: (5) Hypoglycemia: PLAN: Plan 1. Esophageal diverticulum with food bolus status post intervention on 06/23/2023 ? Appreciate GIs assistance ? He did pass swallowing evaluation so he can proceed to a regular diet ? We will discontinue IV fluids as he can take p.o. 2. Parkinson's disease ? Stable ? Can restart these medications when able 3. HTN/HLD/CAD status post stent ? Hold aspirin and Plavix as his stent was in 2019 pending speech eval ? We will hold his Lipitor as well as his Lasix DVT: SCDs Charges/Coding Visit Charges Inpatient E&M: 83228 Subs Hosp L2
[2023-06-24] MEDS: Potassium Chloride Oral Tablet 20 MEQ 40 MEQ PO (12:33)
[2023-06-24] MEDS: Potassium Phosphate 15 MM in 0.9% Normal Saline (250mL Bag) 250 ML 125 MM IV (14:20)
[2023-06-24 14:27] VITALS: BP 95/69; PULSE 70; RESP 18; TEMP 36.6; O2SAT 96
[2023-06-24] MEDS: Carbidopa/Levodopa 25/100 Tablet PO (17:15)
[2023-06-24] MEDS: Senna/Docusate Sodium 1 Tablet 2 TABLET PO (20:45)
[2023-06-24] MEDS: Clopidogrel Bisulfate 75 MG Tablet PO (20:45)
[2023-06-24] MEDS: Atorvastatin Calcium 40 MG Tablet PO (20:45)
[2023-06-25 03:00] VITALS: BP 101/60; PULSE 60; RESP 16; TEMP 36.3; O2SAT 99
[2023-06-25] MEDS: Carbidopa/Levodopa 25/100 Tablet PO ×3 (04:14→17:14)
[2023-06-25 06:30] LABS: Anion Gap 6 (5-15); BUN 8 mg/dL (7-18); BUN/Creat Ratio 10.5 RATIO (10-20); Calcium,Total 8.2 mg/dL (8.5-10.1); Chloride 110 mmol/L (98-107); Creatinine, Serum 0.76 mg/dL (0.70-1.30); EST Glomerular Filtration Rate 104 mL/min (>60); Est Glom Filt Rate - Afr Amer 126 mL/min (>60); Estimated Creatinine Clearance 76.78 ml/min; Glucose 96 mg/dL (74-106); Potassium 3.6 mmol/L (3.5-5.1); Sodium Level 140 mmol/L (136-145)
[2023-06-25 09:00] VITALS: BP 113/79; PULSE 63; RESP 16; TEMP 36.5; O2SAT 99
[2023-06-25] MEDS: Aspirin E.C. 81 MG Tablet PO (09:18)
[2023-06-25] MEDS: Senna/Docusate Sodium 1 Tablet 2 TABLET PO ×2 (09:19→21:32)
[2023-06-25] MEDS: Pantoprazole Sodium 40 MG in 0.9% Normal Saline (100mL MB+) 100 ML 330 MG IV (09:19)
[2023-06-25] MEDS: Polyethylene Glycol 3350 17 GM PACKET PO (09:19)
--- NOTE | 2023-06-25 10:22 | PN.HOSP_ITS ---
Subjective Subjective Doing well, tolerating a regular diet Objective Data Objective Data Vital Signs: Vital Signs Temp Pulse Resp BP Pulse Ox O2 Del Method 97.7 F L 63 16 113/79 99 Room Air 06/25/23 09:00 06/25/23 09:00 06/25/23 09:00 06/25/23 09:00 06/25/23 09:00 06/25/23 09:00 Oxygen Delivery Method Room Air Weight: 219 lb 5.759 oz Body Mass Index (BMI) 24.7 Intake & Output: Intake and Output for Last 24 Hours 06/24/23 06/25/23 06/26/23 03:59 03:59 03:59 Intake Total 2200.42 / 2200.42 3081.25 / 3081.25 1318.75 / 1318.75 Output Total 1300 / 1300 300 / 300 Balance 900.42 / 900.42 2781.25 / 2781.25 1318.75 / 1318.75 Medical Nutrition Assessment Dietitian: Malnutrition Criteria Met Start: 06/23/23 10:56 Freq: Status: Active Protocol: Document 06/23/23 10:56 AG (Rec: 06/23/23 10:56 AG Desktop) Nutrition Malnutrition Evidence of Malnutrition Exists Yes Malnutrition (severe): Chronic Evidenced By Suboptimal Energy Intake ( Severe),Weight Loss (Severe) Clinical Problem Acute Disease or Injury Related Malnutrition Etiology severe, acute malnutrition related to inadequate energy intake d/t swallowing difficulty Signs/Symptoms as evidenced by unintentional 5% wt loss < 1 month, estimated PO intake meeting < 50% of estimated energy needs x 1 week Status Active Problem Recommendation Dietitian Recommendations/Changes recommend regular diet- texture/consistency modifications per DIRECTOR RECORDS MANAGEMENT; ensure clear TID w/ meals and Ryland BID for wound healing. If unable to advance PO diet, recommend enteral nutrition support- consult RDN for further recommendations as indicated. Lab / Micro Data 06/24/23 06:02 06/25/23 05:30 Labs: Laboratory Results - last 24 hr 06/25/23 05:30: Sodium 140, Potassium 3.6, Chloride 110 H, Carbon Dioxide 24.0, Anion Gap 6, BUN 8, Creatinine 0.76, Estim Creat Clear Calc 76.78, Est GFR (MDRD) Af Amer 126, Est GFR (MDRD) Non-Af 104, BUN/Creatinine Ratio 10.5, Glucose 96, Calcium 8.2 L Physical Exam Narrative General: Alert, Oriented x3, Cooperative, No apparent distress HEENT: Atraumatic, PERRLA, EOMI, Normocephalic Oral: Moist mucosa Neck: Supple, No JVD Lungs: Diminished, normal air movement, No rhonchi, No wheeze, No rales Cardiovascular: Regular rate, Regular Rhythm, Normal S1, Normal S2, No murmurs Abdomen: Soft, Non Tender, Non-Distended, No Hepato-splenomegaly Extremities: No edema, Capillary Refill Less than 3 Seconds Skin: No rashes, No breakdown Musculoskeletal: No Tenderness to Palpation of Joints or Extremities Neurological: Motor function is slow but no leadpipe rigidity is noted, Sensory exam intact to light touch and pain Psych/Mental Status: Normal affect Assessment & Plan Assessment/Plan (1) Esophageal diverticulum: (2) Hypokalemia: (3) Dysphagia: QUALIFIERS: Dysphagia type: unspecified Qualified Code(s): R13.10 - Dysphagia, unspecified (4) Odynophagia: (5) Hypoglycemia: PLAN: Plan 1. Esophageal diverticulum with food bolus status post intervention on 06/23/2023 ? Appreciate GIs assistance ? He did pass swallowing evaluation so he can proceed to a regular diet ? DC IV fluids ? Currently awaiting pre-CERT to return to [place] 2. Parkinson's disease ? Stable ? Can restart these medications when able 3. HTN/HLD/CAD status post stent ? We will resume his aspirin and Plavix ? Restart Lipitor and Lasix DVT: SCDs Charges/Coding Visit Charges Inpatient E&M: 11562 Subs Hosp L2
[2023-06-25 14:42] VITALS: BP 111/67; PULSE 58; RESP 18; TEMP 36.9; O2SAT 98
[2023-06-25] MEDS: Clopidogrel Bisulfate 75 MG Tablet PO (21:20)
[2023-06-25] MEDS: Atorvastatin Calcium 40 MG Tablet PO (21:20)
[2023-06-25] MEDS: Pantoprazole Sodium 40 MG Tablet PO (21:32)
[2023-06-25 21:35] VITALS: BP 118/66; PULSE 51; RESP 16; TEMP 36.1; O2SAT 100
[2023-06-25] MEDS: Glycerin/Hypromellose/PEG400 15 ml Bottle 1 DRP EACH EYE (22:10)
[2023-06-26 03:27] VITALS: BP 125/74; PULSE 70; RESP 16; TEMP 36.2; O2SAT 100
[2023-06-26] MEDS: Glycerin/Hypromellose/PEG400 15 ml Bottle 1 DRP LEFT EYE (03:44)
[2023-06-26] MEDS: Acetaminophen 500 MG Tablet PO (03:45)
[2023-06-26 06:07] LABS: Absolute Lymphocyte Count 1.08 X10^3/uL (0.83-4.51); Absolute Neutrophil Count 5.2 X10^3/uL (2.0-7.7); Basophil# 0.03 X10^3/uL; Basophil% 0.4 % (0-1); Eosinophil# 0.31 X10^3/uL; Eosinophils% 4.3 % (0-5); Hematocrit 33.8 % (40-54); Lymphocyte # 1.08 X10^3/ul (0.83-4.51); Mean Corp Hgb Conc 32.5 g/dL (32-36); Mean Corpuscular Hgb 27.1 pg (27.0-32.0); Mean Corpuscular Volume 83.3 fL (80-94); Mean Platelet Vol. 9.3 fl (6.2-12.0); Monocyte# 0.58 X10^3/uL; Monocyte% 8.1 % (0-10); NRBC Flagged by Analyzer 0 % (0-5); Neutrophil # 5.17 X10^3/uL (2.7-7.7); Neutrophil % 71.9 % (47-70); Platelet Count 232 K/mm3 (150-450); RBC Distribution Width CV 14.4 % (11.6-14.6); RBC Distribution Width SD 43.5 fl (35.1-43.9); Red Blood Count 4.06 M/mm3 (4.6-6.2); White Blood Count 7.2 K/mm3 (4.4-11.0)
[2023-06-26] MEDS: Carbidopa/Levodopa 25/100 Tablet PO ×3 (06:10→16:15)
[2023-06-26 07:00] LABS: Anion Gap 4 (5-15); BUN 11 mg/dL (7-18); BUN/Creat Ratio 13.6 RATIO (10-20); Calcium,Total 8.4 mg/dL (8.5-10.1); Chloride 107 mmol/L (98-107); Creatinine, Serum 0.81 mg/dL (0.70-1.30); EST Glomerular Filtration Rate 98 mL/min (>60); Est Glom Filt Rate - Afr Amer 118 mL/min (>60); Estimated Creatinine Clearance 94.79 ml/min; Glucose 93 mg/dL (74-106); Potassium 3.5 mmol/L (3.5-5.1); Sodium Level 139 mmol/L (136-145)
[2023-06-26 08:00] VITALS: BP 110/61; PULSE 63; RESP 16; TEMP 36.4; O2SAT 100
[2023-06-26] MEDS: Senna/Docusate Sodium 1 Tablet 2 TABLET PO ×2 (08:59→21:34)
[2023-06-26] MEDS: Aspirin E.C. 81 MG Tablet PO (08:59)
[2023-06-26] MEDS: Pantoprazole Sodium 40 MG Tablet PO ×2 (08:59→21:34)
[2023-06-26] MEDS: Furosemide 40 MG Tablet PO (08:59)
[2023-06-26] MEDS: Polyethylene Glycol 3350 17 GM PACKET PO (09:00)
--- NOTE | 2023-06-26 09:03 | CASEMGMT ---
Discharge Planning Updates sent to [place] via [facility]. Elizabeth Sampson, Discharge Planning Asst.
--- NOTE | 2023-06-26 10:25 | PCM.PN.HOSP ---
Subjective Subjective Resting comfortably, no issues overnight. Objective Data Objective Data Vital Signs: Vital Signs Temp Pulse Resp BP Pulse Ox O2 Del Method 97.5 F L 63 16 110/61 100 Room Air 06/26/23 08:00 06/26/23 08:00 06/26/23 08:00 06/26/23 08:00 06/26/23 08:00 06/26/23 08:33 Oxygen Delivery Method Room Air Weight: 219 lb 5.759 oz Body Mass Index (BMI) 24.7 Intake & Output: Intake and Output for Last 24 Hours 06/25/23 06/26/23 06/27/23 03:59 03:59 03:59 Intake Total 3081.25 / 3081.25 1798.75 / 1798.75 400 / 400 Output Total 300 / 300 750 / 750 Balance 2781.25 / 2781.25 1798.75 / 1798.75 -350 / -350 Medical Nutrition Assessment Dietitian: Malnutrition Criteria Met Start: 06/23/23 10:56 Freq: Status: Active Protocol: Document 06/26/23 10:04 AG (Rec: 06/26/23 10:04 AG Desktop) Nutrition Malnutrition Evidence of Malnutrition Exists Yes Malnutrition (severe): Chronic Evidenced By Suboptimal Energy Intake ( Severe),Weight Loss (Severe) Clinical Problem Acute Disease or Injury Related Malnutrition Etiology severe, acute malnutrition related to inadequate energy intake d/t swallowing difficulty Signs/Symptoms as evidenced by unintentional 5% wt loss < 1 month, estimated PO intake meeting < 50% of estimated energy needs x 1 week Status Active Problem Recommendation Dietitian Recommendations/Changes continue regular diet- texture /consistency modifications per RUBBER AND PLASTICS WORKER; ensure clear TID w/ meals and Ryland BID for wound heal Lab / Micro Data 06/26/23 05:20 06/26/23 05:20 Labs: Laboratory Results - last 24 hr 06/26/23 05:20: WBC 7.2, RBC 4.06 L, Hgb 11.0 L, Hct 33.8 L, MCV 83.3, MCH 27.1, MCHC 32.5 D, RDW Std Deviation 43.5, RDW Coeff of Donnie 14.4, Plt Count 232, MPV 9.3, Immature Gran % (Auto) 0.300, Neut % (Auto) 71.9 H, Lymph % (Auto) 15.0 L, [place] % (Auto) 8.1, Eos % (Auto) 4.3, Baso % (Auto) 0.4, Absolute Neuts (auto) 5.2, Absolute Lymphs (auto) 1.08, Nucleated RBC % 0, Sodium 139, Potassium 3.5, Chloride 107, Carbon Dioxide 28.0, Anion Gap 4 L, BUN 11, Creatinine 0.81, Estim Creat Clear Calc 94.79, Est GFR (MDRD) Af Amer 118, Est GFR (MDRD) Non-Af 98, BUN/Creatinine Ratio 13.6, Glucose 93, Calcium 8.4 L Physical Exam Narrative General: Alert, Oriented x3, Cooperative, No apparent distress HEENT: Atraumatic, PERRLA, EOMI, Normocephalic Oral: Moist mucosa Neck: Supple, No JVD Lungs: Diminished, normal air movement, No rhonchi, No wheeze, No rales Cardiovascular: Regular rate, Regular Rhythm, Normal S1, Normal S2, No murmurs Abdomen: Soft, Non Tender, Non-Distended, No Hepato-splenomegaly Extremities: No edema, Capillary Refill Less than 3 Seconds Skin: No rashes, No breakdown Musculoskeletal: No Tenderness to Palpation of Joints or Extremities Neurological: Motor function is slow but no leadpipe rigidity is noted, Sensory exam intact to light touch and pain Psych/Mental Status: Normal affect Assessment & Plan Assessment/Plan (1) Esophageal diverticulum: (2) Hypokalemia: (3) Dysphagia: QUALIFIERS: Dysphagia type: unspecified Qualified Code(s): R13.10 - Dysphagia, unspecified (4) Odynophagia: (5) Hypoglycemia: PLAN: Plan 1. Esophageal diverticulum with food bolus status post intervention on 06/23/2023 ? Appreciate GIs assistance ? He did pass swallowing evaluation so he can proceed to a regular diet ? Currently awaiting pre-CERT to return to [place] [facility] 2. Parkinson's disease ? Stable ? Continue with his home medications 3. HTN/HLD/CAD status post stent ? We will resume his aspirin and Plavix ? Restart Lipitor and Lasix DVT: SCDs Charges/Coding Visit Charges Inpatient E&M: 62184 Subs Hosp L2
--- NOTE | 2023-06-26 10:41 | CASEMGMT ---
ALESSANDRO received a fax from patient's brother indicating family would like to move patient from [facility] to a facility in [place]. SW spoke with patient and he thought the plan was to return to his assisted living eventually and then move to [place]. Patient was okay with SW calling family. SW tried to call patient's brother Man, but the call would not go through. SW called patient's sister in law Ashley and discussed transferring patient. After discussion Ashley did not realize patient's retirement days do not start over until he has had a 60 day break from the hospital and retirement. It was agreed that patient would return to [facility] and family will work with [facility] on transferring patient. SW went back to patient's room and explained this information and patient was in agreement with the plan. ALESSANDRO will update [facility]. Plan: d/c back to [facility] pending insurance approval. Maral LARSON
--- NOTE | 2023-06-26 11:35 | CASEMGMT ---
Social Work As per admitting RN, pt does not have LW/POA and declined further information. JAMILAH Tapia
--- NOTE | 2023-06-26 12:13 | PN.GI_ITS ---
Subjective Subjective Patient underwent an upper endoscopy and was discovered to have a food bolus along with esophageal diverticulum and esophageal rings. Biopsies were taken for eosinophilic esophagitis, but are pending. Objective Data Objective Data Vital Signs: Vital Signs Temp Pulse Resp BP Pulse Ox O2 Del Method 97.5 F L 63 16 110/61 100 Room Air 06/26/23 08:00 06/26/23 08:00 06/26/23 08:00 06/26/23 08:00 06/26/23 08:00 06/26/23 08:33 Oxygen Delivery Method Room Air Weight: 219 lb 5.759 oz Body Mass Index (BMI) 24.7 Intake & Output: Intake and Output for Last 24 Hours 06/24/23 06/25/23 06/26/23 23:59 23:59 23:59 Intake Total 3281.25 / 3281.25 1798.75 / 1798.75 400 / 400 Output Total 300 / 300 750 / 750 Balance 3281.25 / 2981.25 1498.75 / 1498.75 -350 / -350 Medical Nutrition Assessment Dietitian: Malnutrition Criteria Met Start: 06/23/23 10:56 Freq: Status: Active Protocol: Document 06/26/23 10:04 AG (Rec: 06/26/23 10:04 AG Desktop) Nutrition Malnutrition Evidence of Malnutrition Exists Yes Malnutrition (severe): Chronic Evidenced By Suboptimal Energy Intake ( Severe),Weight Loss (Severe) Clinical Problem Acute Disease or Injury Related Malnutrition Etiology severe, acute malnutrition related to inadequate energy intake d/t swallowing difficulty Signs/Symptoms as evidenced by unintentional 5% wt loss < 1 month, estimated PO intake meeting < 50% of estimated energy needs x 1 week Status Active Problem Recommendation Dietitian Recommendations/Changes continue regular diet- texture /consistency modifications per BIOMEDICAL ENGINEERING AIDE; ensure clear TID w/ meals and Ryland BID for wound heal Lab / Micro Data 06/26/23 05:20 06/26/23 05:20 Labs: Laboratory Results - last 24 hr 06/26/23 05:20: WBC 7.2, RBC 4.06 L, Hgb 11.0 L, Hct 33.8 L, MCV 83.3, MCH 27.1, MCHC 32.5 D, RDW Std Deviation 43.5, RDW Coeff of Donnie 14.4, Plt Count 232, MPV 9.3, Immature Gran % (Auto) 0.300, Neut % (Auto) 71.9 H, Lymph % (Auto) 15.0 L, [place] % (Auto) 8.1, Eos % (Auto) 4.3, Baso % (Auto) 0.4, Absolute Neuts (auto) 5.2, Absolute Lymphs (auto) 1.08, Nucleated RBC % 0, Sodium 139, Potassium 3.5, Chloride 107, Carbon Dioxide 28.0, Anion Gap 4 L, BUN 11, Creatinine 0.81, Estim Creat Clear Calc 94.79, Est GFR (MDRD) Af Amer 118, Est GFR (MDRD) Non-Af 98, BUN/Creatinine Ratio 13.6, Glucose 93, Calcium 8.4 L Physical Exam Narrative General: Alert, Oriented x3, Cooperative, No apparent distress HEENT: Atraumatic, PERRLA, EOMI, Normocephalic Oral: Moist mucosa Neck: Supple, No JVD Lungs: Diminished, normal air movement, No rhonchi, No wheeze, No rales Cardiovascular: Regular rate, Regular Rhythm, Normal S1, Normal S2, No murmurs Abdomen: Soft, Non Tender, Non-Distended, No Hepato-splenomegaly Extremities: No edema, Capillary Refill Less than 3 Seconds Skin: No rashes, No breakdown Musculoskeletal: No Tenderness to Palpation of Joints or Extremities Neurological: Motor function is slow but no leadpipe rigidity is noted, Sensory exam intact to light touch and pain Psych/Mental Status: Normal affect Assessment & Plan Assessment/Plan (1) Esophageal diverticulum: (2) Dysphagia: QUALIFIERS: Dysphagia type: unspecified Qualified Code(s): R13.10 - Dysphagia, unspecified PLAN: Plan 83-year-old gentleman with esophageal dysphagia secondary to Parkinson's disease and 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 The biopsies are pending. Patient is eating well. Recommended continue PPI therapy twice a day for life. Charges/Coding Visit Charges Inpatient E&M: 79991 Subs Hosp L3
--- NOTE | 2023-06-26 13:45 | CASEMGMT ---
ALESSANDRO sent PT/OT evaluations to [facility] and asked that pre-cert be started. Plan: d/c back to [facility] pending insurance approval. Maral Ross MSW LAWN SPRINKLER INSTALLER
[2023-06-26 13:53] VITALS: BP 119/56; PULSE 60; RESP 18; TEMP 36.1; O2SAT 98
[2023-06-26 15:45] VITALS: BP 120/60; PULSE 64; RESP 18; TEMP 36.3; O2SAT 97
[2023-06-26] MEDS: Juven (unflavored) Packet 1 PACKET PO (16:15)
--- NOTE | 2023-06-26 16:16 | CHAPLAIN ---
Type of Pastoral Visit _x__ Initial Visit ___ Follow-up Visit ___ On-call Visit ___ General Patient Visit ___ Spiritual Assessment ___ Family Conference ___ Bereavement ___ Rapid Response ___ Code Blue ___ Other (describe below) Pastoral Care Referral From _x__ Patient ___ Family ___ Nurse ___ Physician ___ Industrial Engineering Technician ___ Computer Systems Engineer ___ Other (describe below) Sacrament/Intervention _x__ Active listening ___ Anointing ___ Mormon ___ Bereavement ___ Communion _x__ Rona exploration ___ _x__ Life review _x__ Prayer ___ Reconciliation ___ Sacrament of Sick _x__ Supportive presence ___ Wedding ___ Other (describe below) Pastoral Comments patient remembers this euclid operator from previous admissions; pt is eager to talk and gives details about his recent hospitalization and treatment; pt gives more background of his life experience and talks about his concerns, his friends, his family, and his rona; pt desires to have spiritual care support and prayers for his needs now and in the future
[2023-06-26] MEDS: Atorvastatin Calcium 40 MG Tablet PO (21:34)
[2023-06-26] MEDS: Clopidogrel Bisulfate 75 MG Tablet PO (21:34)
[2023-06-26 21:45] VITALS: BP 104/60; PULSE 69; RESP 18; TEMP 36.6; O2SAT 98
[2023-06-27] VITALS: PULSE 71; RESP 16
[2023-06-27 03:30] VITALS: BP 119/72; PULSE 70; RESP 18; TEMP 36.6; O2SAT 97
[2023-06-27 06:00] VITALS: PULSE 72; RESP 16
[2023-06-27] MEDS: Carbidopa/Levodopa 25/100 Tablet PO ×3 (06:05→16:22)
[2023-06-27 09:30] VITALS: BP 103/78; PULSE 72; RESP 17; TEMP 36.6; O2SAT 96
[2023-06-27] MEDS: Aspirin E.C. 81 MG Tablet PO (09:34)
[2023-06-27] MEDS: Pantoprazole Sodium 40 MG Tablet PO ×2 (09:34→21:30)
[2023-06-27] MEDS: Senna/Docusate Sodium 1 Tablet 2 TABLET PO (09:34)
[2023-06-27] MEDS: Furosemide 40 MG Tablet PO (09:34)
[2023-06-27] MEDS: Polyethylene Glycol 3350 17 GM PACKET PO (09:35)
[2023-06-27] MEDS: Juven (unflavored) Packet 1 PACKET PO ×2 (09:35→16:22)
--- NOTE | 2023-06-27 11:21 | PN.HOSP_ITS ---
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) Dysphagia, unspecified (06/22/23) Subjective Subjective Patient is an 83-year-old gentleman admitted with difficulty swallowing Objective Data Objective Data Vital Signs: Vital Signs Temp Pulse Resp BP Pulse Ox O2 Del Method 97.8 F 72 17 103/78 96 Room Air 06/27/23 09:30 06/27/23 09:30 06/27/23 09:30 06/27/23 09:30 06/27/23 09:30 06/27/23 09:35 Oxygen Delivery Method Room Air Weight: 99.5 kg Body Mass Index (BMI) 24.7 Intake & Output: Intake and Output for Last 24 Hours 06/25/23 06/26/23 06/27/23 23:59 23:59 23:59 Intake Total 1798.75 / 1798.75 1200 / 1250 50 / 50 Output Total 300 / 300 750 / 750 Balance 1498.75 / 1498.75 450 / 500 50 / 50 Medical Nutrition Assessment Dietitian: Malnutrition Criteria Met Start: 06/23/23 10:56 Freq: Status: Active Protocol: Document 06/26/23 10:04 AG (Rec: 06/26/23 10:04 AG Desktop) Nutrition Malnutrition Evidence of Malnutrition Exists Yes Malnutrition (severe): Chronic Evidenced By Suboptimal Energy Intake ( Severe),Weight Loss (Severe) Clinical Problem Acute Disease or Injury Related Malnutrition Etiology severe, acute malnutrition related to inadequate energy intake d/t swallowing difficulty Signs/Symptoms as evidenced by unintentional 5% wt loss < 1 month, estimated PO intake meeting < 50% of estimated energy needs x 1 week Status Active Problem Recommendation Dietitian Recommendations/Changes continue regular diet- texture /consistency modifications per TRUCK DOCK MATERIAL MOVER; ensure clear TID w/ meals and Ryland BID for wound heal Lab / Micro Data 06/26/23 05:20 06/26/23 05:20 Physical Exam Narrative GENERAL: cooperative HEENT: Atraumatic; normocephalic EYES; Anicteric, Normal Conjunctiva NECK; supple, normal thyroid, RESPIRATORY: Diminished to auscultation CARDIOVASCULAR: Regular S1 S2, GI: soft, normoactive bowel sounds, : No Renal angle tenderness; EXTREMITIES: No edema, no clubbing, MUSCULOSKELETAL: no muscle wasting NEURO: Awake; no lateralizing signs. SKIN: No Rash PSYCH; Flat affect Assessment & Plan Assessment/Plan (1) Esophageal diverticulum: (2) Dysphagia: QUALIFIERS: Dysphagia type: unspecified Qualified Code(s): R13.10 - Dysphagia, unspecified PLAN: Plan Patient is an 83-year-old gentleman admitted with difficulty swallowing 1. Dysphagia ? Patient underwent EGD by Dr. Boggs on 06/23/2023 findings included - Food at the cricopharyngeus. Removal was successful. - Diverticulum at the cricopharyngeus. - High-grade of narrowing Schatzki ring. Dilated. 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 . Biopsies were taken patient subsequently started on PPI. Plan is for patient to follow-up with ENT Dr. Chang as outpatient regarding the diverticulum in the cricopharyngeus 2. Parkinson's disease ? Patient is on Sinemet continued. 3. Dyslipidemia -Patient is on statin therapy, continued at home dose 4. Coronary artery disease With PCI with stent placement patient is on guideline directed medical therapy continue 5. DVT prophylaxis ? Bilateral SCDs 6. Physical deconditioning - Requested for PT OT eval and adoption social worker to assist with discharge planning Time spent in the patient's overall evaluation,decision-making process, review of diagnostic data, adjustment of management, discussion with other providers, nursing nursing and ancillary staff involved in patient's care documentation, 35 Minutes Charges/Coding Visit Charges Inpatient E&M: 78523 Subs Hosp L2
[2023-06-27 15:21] VITALS: BP 105/59; PULSE 70; RESP 17; TEMP 36.7; O2SAT 100
--- NOTE | 2023-06-27 16:30 | TREXTCAR_ITS ---
Diet Diet Order/Speech Therapy: 06/24/23 09:44 Diet: Regular - General Food consistency:: Soft & Bite Sized Liquid Consistency:: Regular/Thin Type of Dietary Supplement:: Ensure Clear 120mL TID Is pt able to select menu?: Yes Diet Comments: Meds whole in , distant supervision at meals Routine Orders/Code Status Code Status: Full Code Wound(s) BLE: Wound Type: Stasis Ulcer R foot: Wound Type: Stasis Ulcer right anterior lower leg: Wound Type: scattered stasis ulcers Dressing Change: AntiMicrobial (Aquacel AG, etc) right lateral ankle/foot: Wound Type: Stasis Ulcer Dressing Change: AntiMicrobial (Aquacel AG, etc) right medial ankle/foot: Wound Type: Stasis Ulcer Dressing Change: AntiMicrobial (Aquacel AG, etc) Therapies Physical Therapy: Eval and Treat Occupational Therapy: Eval and Treat Speech Therapy: Eval and Treat Problem/Diagnosis (1) Esophageal diverticulum: Status: Acute Code(s): Q39.6 - Congenital diverticulum of esophagus (2) Dysphagia: Status: Acute Code(s): R13.10 - Dysphagia, unspecified Plan Patient is an 83-year-old gentleman admitted with difficulty swallowing 1. Dysphagia ? Patient underwent EGD by Dr. Boggs on 06/23/2023 findings included - Food at the cricopharyngeus. Removal was successful. - Diverticulum at the cricopharyngeus. - High-grade of narrowing Schatzki ring. Dilated. 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 . Biopsies were taken patient subsequently started on PPI. Plan is for patient to follow-up with ENT Dr. Chang as outpatient regarding the diverticulum in the cricopharyngeus 2. Parkinson's disease ? Patient is on Sinemet continued. 3. Dyslipidemia -Patient is on statin therapy, continued at home dose 4. Coronary artery disease With PCI with stent placement patient is on guideline directed medical therapy continue 5. DVT prophylaxis ? Bilateral SCDs 6. Physical deconditioning - Requested for PT OT eval and child welfare social worker to assist with discharge planning Time spent in the patient's overall evaluation,decision-making process, review of diagnostic data, adjustment of management, discussion with other providers, nursing nursing and ancillary staff involved in patient's care documentation, 35 Minutes Allergies/Procedures Done in Hospital Allergies raspberry Allergy (Severe, Verified 06/22/23 19:36) Vomiting lemon Allergy (Intermediate, Verified 06/22/23 19:36) blisters on hands [place] FLAVOR [place] Allergy (Intermediate, Verified 06/22/23 19:36) blisters on hands [place] FLAVOR strawberry Allergy (Intermediate, Verified 06/22/23 19:36) blisters on hands Type of Care/Length of Stay Estimated LOS: Convalescent Care Less Than 30 days Type of Care Needed: Skilled Rehab Potential: Good Prognosis: Good Additional Orders/Day of Discharge Day of Discharge: 06/27/23 Dietary and Speech Recommendations Dietitian Recommendations/Changes: continue regular diet- texture/consistency modifications per DIRECTOR OF COMMUNITY CENTER; ensure clear TID w/ meals and Ryland BID for wound heal Discharge Plan Admission Admit Date/Time: 06/22/23 23:00 Attending Provider: Abdiaziz Conklin Primary Care Provider: Pablito Brower Consulting Providers: Olegario Boggs; Barber Brown; Titi Arthur Discharge Orders/Prescriptions Prescriptions: New pantoprazole 40 mg Tablet,Delayed Release (Dr/Ec) 40 mg PO BID Qty: 0 0RF Artificial Tears([id number]) 1-0.2-0.2 % Drops 1 drp LEFT EYE Q1H PRN PRN (Reason: DRY EYES) Qty: 0 0RF Ryland (with collagen) 7-7-1.5 gram Powder In Packet 1 packet PO BIDCM Qty: 0 0RF Continued aspirin 81 MG tablet 81 mg PO DAILY@0800 0RF potassium chloride 20 mEq tablet,ER particles/crystals See Rx Instructions .ROUTE .COMPLEX Patient Comments: Take 2 tablets by mouth every morning AND 1 tablet every afternoon. Rx Instructions: 40meq orally each am and 20 mEq orally afternoon atorvastatin 40 mg tablet 40 mg PO QHS clopidogrel [Plavix] 75 mg tablet 75 mg PO QHS bisacodyl 10 mg Suppository 10 mg DE DAILY PRN (Reason: Constipation) guaifenesin [Mucinex] 600 mg Tablet Extended Release 12hr 600 mg PO Q12H PRN (Reason: Cough) furosemide 40 mg Tablet 40 mg PO DAILY Qty: 0 0RF Rx Instructions: Take an additional 40 mg dose at 5 PM for increased leg swelling or weight gain 5 pounds in 1 week. acetaminophen 325 mg Tablet 650 mg PO Q6H PRN PRN (Reason: Pain 1-10 Or Fever>100.7) Qty: 0 0RF sennosides-docusate sodium [Stool Softener-Stimulant Laxat] 8.6-50 mg Tablet 2 tab PO BID Qty: 0 0RF carbidopa-levodopa 25-100 mg tablet 1 tab PO TID polyethylene glycol 3350 17 gram powder in packet 17 g PO DAILY magnesium hydroxide [Dulcolax (magnesium hydroxide)] 400 mg/5 mL suspension 5 ml PO DAILY PRN (Reason: constipation) Rx Instructions: NOTIFY MD, IF NO BM IN 4 DAYS magnesium hydroxide [Milk Of Magnesia Concentrated] 2,400 mg/10 mL suspension 10 ml PO BID Rx Instructions: NOTIFY MD IF NO BM IN 4 DAYS Referrals / Follow Up: Cole De La Rosa MD [Med Staff - Active Staff] - Within 1 Week Pablito Brower MD [Primary Care Provider] - Within 1 Week Olegario Boggs DO [Med Staff - Active Staff] - Within 2 Weeks Disposition Disposition (needs filled in before D/C Order can be placed): [facility] Facility (2) Dysphagia Qualifiers: Dysphagia type: unspecified Qualified Code(s): R13.10 - Dysphagia, unspecified
--- NOTE | 2023-06-27 16:33 | CASEMGMT ---
Met with patient to complete LOPEZ form. LOPEZ form explained to patient who voiced understanding and signed form. Original form placed in pt?s chart and copy provided to?patient. Elizabeth Sampson, Discharge Planning Asst
--- NOTE | 2023-06-27 16:43 | PCM.DC.SUM ---
Providers Date of Admission: 06/22/23 Date of Discharge: 06/27/23 Primary Care Physician: Dr. Pablito Brower MD Consultations 06/23/23 00:17 Consult: Gastroenterology Routine Consulting Provider: Olegario Boggs Reason for Consult: Dysphagia, odynophagia, Zenker's diverticulum EMERGENT Consult: No MD Notified: Yes Date Notified: 06/22/23 Time Notified: 23:09 Method of Notification: ED Physician Initiated 06/23/23 01:15 Consult: Onc/Wound/commutator undercutter Routine Comment: Reason for Consult:: BLE scattered wounds Reason For Visit: DYSPHAGIA, ODYNOPHAGI, ZENKER DIVERTICULUM Diagnosis Discharge Diagnosis (1) Esophageal diverticulum: Status: Acute Code(s): Q39.6 - Congenital diverticulum of esophagus (2) Dysphagia: Status: Acute Code(s): R13.10 - Dysphagia, unspecified Qualifiers: Dysphagia type: unspecified Qualified Code(s): R13.10 - Dysphagia, unspecified Plan Patient is an 83-year-old gentleman admitted with difficulty swallowing 1. Dysphagia ? Patient underwent EGD by Dr. Boggs on 06/23/2023 findings included - Food at the cricopharyngeus. Removal was successful. - Diverticulum at the cricopharyngeus. - High-grade of narrowing Schatzki ring. Dilated. 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 . Biopsies were taken patient subsequently started on PPI. Plan is for patient to follow-up with ENT Dr. Chang as outpatient regarding the diverticulum in the cricopharyngeus 2. Parkinson's disease ? Patient is on Sinemet continued. 3. Dyslipidemia -Patient is on statin therapy, continued at home dose 4. Coronary artery disease With PCI with stent placement patient is on guideline directed medical therapy continue 5. DVT prophylaxis ? Bilateral SCDs 6. Physical deconditioning - Requested for PT OT eval and social service director to assist with discharge planning Time spent in the patient's overall evaluation,decision-making process, review of diagnostic data, adjustment of management, discussion with other providers, nursing nursing and ancillary staff involved in patient's care documentation, 35 Minutes Medications at Discharge Home Medications aspirin 81 mg tablet,delayed release 81 mg PO DAILY@0800 11/13/18 potassium chloride 20 mEq tablet,extended release(part/cryst) See Rx Instructions .Route .COMPLEX health maintenance 05/04/21 atorvastatin 40 mg tablet 40 mg PO QHS 08/07/21 clopidogrel 75 mg tablet (Plavix) 75 mg PO QHS HEART DISEASE 08/07/21 bisacodyl 10 mg rectal suppository 10 mg IN DAILY PRN Constipation 11/07/21 guaifenesin 600 mg tablet, extended release 12 hr (Mucinex) 600 mg PO Q12H PRN Cough 01/21/23 acetaminophen 325 mg tablet 650 mg (2 x 325 mg) PO Q6H PRN PRN Pain 1-10 Or Fever>100.7 #0 tabs 01/25/23 furosemide 40 mg tablet 40 mg PO DAILY #0 tabs 01/25/23 sennosides 8.6 mg-docusate sodium 50 mg tablet (Stool Softener-Stimulant Laxative) 2 tab PO BID #0 tabs 01/25/23 carbidopa 25 mg-levodopa 100 mg tablet 1 tab PO TID PARKINSONS 02/12/23 polyethylene glycol 3350 17 gram oral powder packet 17 g PO DAILY CONSTIPATION 02/12/23 magnesium hydroxide 2,400 mg/10 mL oral suspension (Milk Of Magnesia Concentrated) 10 ml PO BID CONSTIPATION 06/20/23 magnesium hydroxide 400 mg/5 mL oral suspension (Dulcolax (magnesium hydroxide)) 5 ml PO DAILY PRN constipation 06/20/23 arginine 7 gram-glutam 7 gram-CaHMB 1.5 [id number]-[id number]-ta-min oral pwd pkt (Ryland (with collagen)) 1 packet PO BIDCM #0 ea 06/27/23 pantoprazole 40 mg tablet,delayed release 40 mg PO BID #0 tabs 06/27/23 peg [id number] 1 %-0.2 %-0.2 % eye drops (Artificial Tears ([id number])) 1 drp LEFT EYE Q1H PRN PRN DRY EYES #0 mL 06/27/23 Hospital Course Summary of Care Provided Minutes Spent on Discharge: 40 Physical Exam Narrative GENERAL: cooperative HEENT: Atraumatic; normocephalic EYES; Anicteric, Normal Conjunctiva NECK; supple, normal thyroid, RESPIRATORY: Diminished to auscultation CARDIOVASCULAR: Regular S1 S2, GI: soft, normoactive bowel sounds, : No Renal angle tenderness; EXTREMITIES: No edema, no clubbing, MUSCULOSKELETAL: no muscle wasting NEURO: Awake; no lateralizing signs. SKIN: No Rash PSYCH; Flat affect Medical Records Data Medical Nutrition Assessment Dietitian: Malnutrition Criteria Met Start: 06/23/23 10:56 Freq: Status: Active Protocol: Document 06/26/23 10:04 AG (Rec: 06/26/23 10:04 AG Desktop) Nutrition Malnutrition Evidence of Malnutrition Exists Yes Malnutrition (severe): Chronic Evidenced By Suboptimal Energy Intake ( Severe),Weight Loss (Severe) Clinical Problem Acute Disease or Injury Related Malnutrition Etiology severe, acute malnutrition related to inadequate energy intake d/t swallowing difficulty Signs/Symptoms as evidenced by unintentional 5% wt loss < 1 month, estimated PO intake meeting < 50% of estimated energy needs x 1 week Status Active Problem Recommendation Dietitian Recommendations/Changes continue regular diet- texture /consistency modifications per UTILITY REPAIRER; ensure clear TID w/ meals and Ryland BID for wound heal Weight / BMI Weight Weight: 99.5 kg Body Mass Index (BMI) 24.7 ABG / Lab / Microbiology Data 06/26/23 05:20 06/26/23 05:20 D/C Instructions Discharge Diet: Swallowing Precautions Discharge Activity: Return to Normal Activity Call your doctor if you observe: Fever of 101 or Higher, Shortness of breath, Fainting spells and Chest pain Meaningful Use Info Meaningful Use Diagnoses (Choose all that apply): None applicable Discharge Plan Admission Admit Date/Time: 06/22/23 23:00 Attending Provider: Abdiaziz Conklin Primary Care Provider: Pablito Brower Consulting Providers: Olegario Boggs; Barber Brown; Titi Arthur Discharge Orders/Prescriptions Prescriptions: New pantoprazole 40 mg Tablet,Delayed Release (Dr/Ec) 40 mg PO BID Qty: 0 0RF Artificial Tears([id number]-ytds-lorz) 1-0.2-0.2 % Drops 1 drp LEFT EYE Q1H PRN PRN (Reason: DRY EYES) Qty: 0 0RF Ryland (with collagen) 7-7-1.5 gram Powder In Packet 1 packet PO BIDCM Qty: 0 0RF Continued aspirin 81 MG tablet 81 mg PO DAILY@0800 0RF potassium chloride 20 mEq tablet,ER particles/crystals See Rx Instructions .ROUTE .COMPLEX Patient Comments: Take 2 tablets by mouth every morning AND 1 tablet every afternoon. Rx Instructions: 40meq orally each am and 20 mEq orally afternoon atorvastatin 40 mg tablet 40 mg PO QHS clopidogrel [Plavix] 75 mg tablet 75 mg PO QHS bisacodyl 10 mg Suppository 10 mg IN DAILY PRN (Reason: Constipation) guaifenesin [Mucinex] 600 mg Tablet Extended Release 12hr 600 mg PO Q12H PRN (Reason: Cough) furosemide 40 mg Tablet 40 mg PO DAILY Qty: 0 0RF Rx Instructions: Take an additional 40 mg dose at 5 PM for increased leg swelling or weight gain 5 pounds in 1 week. acetaminophen 325 mg Tablet 650 mg PO Q6H PRN PRN (Reason: Pain 1-10 Or Fever>100.7) Qty: 0 0RF sennosides-docusate sodium [Stool Softener-Stimulant Laxat] 8.6-50 mg Tablet 2 tab PO BID Qty: 0 0RF carbidopa-levodopa 25-100 mg tablet 1 tab PO TID polyethylene glycol 3350 17 gram powder in packet 17 g PO DAILY magnesium hydroxide [Dulcolax (magnesium hydroxide)] 400 mg/5 mL suspension 5 ml PO DAILY PRN (Reason: constipation) Rx Instructions: NOTIFY , IF NO BM IN 4 DAYS magnesium hydroxide [Milk Of Magnesia Concentrated] 2,400 mg/10 mL suspension 10 ml PO BID Rx Instructions: NOTIFY MD IF NO BM IN 4 DAYS Referrals / Follow Up: Cole De La Rosa MD [Med Staff - Active Staff] - Within 1 Week Pablito Brower MD [Primary Care Provider] - Within 1 Week Olegario Boggs DO [Med Staff - Active Staff] - Within 2 Weeks Disposition Disposition (needs filled in before D/C Order can be placed): Detention Facility Charges/Coding Visit Charges Inpatient E&M: 51879 Disch Hosp >30min
--- NOTE | 2023-06-27 16:49 | NURSING ---
I have tried to call the pt's brother Man 3 times and the number is ringing busy.
--- NOTE | 2023-06-27 17:35 | NURSING ---
Report called to [facility] nurse Rosa Isela.
[2023-06-27 21:22] VITALS: BP 113/61; PULSE 84; RESP 18; TEMP 36.3; O2SAT 97
[2023-06-27] MEDS: Atorvastatin Calcium 40 MG Tablet PO (21:24)
[2023-06-27] MEDS: Clopidogrel Bisulfate 75 MG Tablet PO (21:24)
== END 2023-06-27 22:45 | disposition skilled nursing facility (03) ==
LOC: ED 21:53 → PCU 23:04
PROVIDERS: Family Medicine; Internal Medicine Gastroenterology; Admitting Provider Hospitalist; Emergency Provider Emergency Medicine; PCP Family Medicine; Visit Provider Internal Medicine
PROC: 0DJ08ZZ Inspection of Upper Intestinal Tract, Via Natural or Artificial Opening Endoscopic (ICD-10-PCS; CPT 43235; principal; 2023-06-23 15:40)
DX: K22.5 Diverticulum of esophagus, acquired (principal); R13.10 Dysphagia, unspecified; E87.6 Hypokalemia; I10 Essential (primary) hypertension; K44.9 Diaphragmatic hernia without obstruction or gangrene; Z87.891 Personal history of nicotine dependence; Z79.02 Long term (current) use of antithrombotics/antiplatelets; E16.2 Hypoglycemia, unspecified; I25.10 Atherosclerotic heart disease of native coronary artery without angina pectoris; Z79.82 Long term (current) use of aspirin; E78.5 Hyperlipidemia, unspecified; I25.2 Old myocardial infarction; Z79.01 Long term (current) use of anticoagulants; Z79.899 Other long term (current) drug therapy; Q39.6 Congenital diverticulum of esophagus; K22.2 Esophageal obstruction; G20.A1 Parkinson's disease without dyskinesia, without mention of fluctuations; T18.128A Food in esophagus causing other injury, initial encounter
CPT/HCPCS: 43239; 43248; 43247; 36415; 80048; 83735; 84100; 85025; 88305; 88312; 88313; 92526; 92610; 96361; 96365; 96366; 96367; 97110; 97162; 97166; 97530; 97535; 97802; 97803; 99221; 99282; 99285; J7050; A4216; C1769; G0378; J2405

== ENCOUNTER → 2023-06-22 | Outpatient (CLI) | payer MEDICARE, MEDICAID, SELFPAY ==
--- NOTE | 2023-06-22 14:33 | SP.MBSS_ITS ---
Modified Barium Swallow Patient Information Study Date: 06/22/23 Study Time: 13:00 Direct Billable Minutes: 95 Total Minutes procedure & reportin Diagnosis: Dysphagia (R13.10), Parkinsons Disease (G20) Referring Physician: Pablito Brower Reason for Referral: Objectively assess swallow function, assess risk for aspiration, and determine recommendations for least restrictive diet textures and compensatory strategies to improve safety of swallow. Medical History: The patient is an 83-year-old male who resides at the [facility] with recent visit to [facility] ED on 06/20/2023 for trouble swallowing. He was not admitted to the hospital and was discharged back to the [facility] with Regular textures / Thin liquids and plan for OP MBSS 07/24/2023; however, he was made NPO after BSE with MEDIA PROMOTER, Desiree, on 06/21/2023. Per MEDIA PROMOTER?s report, he is not demonstrating complete hyolaryngeal elevation/excursion upon palpation. He was unable to swallow a tsp of NTL or HTL, and these liquids he attempted to swallow came back out and he spit them up for 1-2 min. He declined trying applesauce. This MEDIA PROMOTER scheduled the patient for MBSS today due to urgent need for further swallowing assessment. Of note, when the patient was in the ED, he reported seeing his ENT, Dr. Jojo Daniels, on 06/19/2023 for laryngoscopy, and the patient stated that it was marj, but that Dr. De La Rosa was concerned about his esophagus. The patient has an esophagram scheduled for 06/26/2023. Other PMH: PD, abnormality of gait, blind R eye, BL hearing loss, borderline type 2 DM, history of NSTEMI (11/12/18), HTN, lymphedema (SEE EMR for full PMH). Current Diet Ordered: NPO Mental Status: WNL Respiratory Status: Oxygenating on Room Air Penetration-Aspiration Scale Penetration-Aspiration Scale: OBJECTIVE ASSESSMENT OF SWALLOW FUNCTION (QUANTITATIVE ? PER TRIAL): PENETRATION / ASPIRATION SCALE (COLLINS): 1 = does not enter airway 2 = enters airway/above vocal folds/ejected 3 = enters airway/above vocal folds/not ejected 4 = enters airway/contacts vocal folds/ejected 5 = enters airway/contacts vocal folds/not ejected 6 = enters airway/below vocal folds/ejected 7 = enters airway/below vocal folds/not ejected despite effort 8 = enters airway/below vocal folds/no effort VIDEOFLOROSCOPIC SCALE SCORE (COLLINS): Grade I = aspiration of material that has penetrated into the laryngeal vestibule, intact cough reflex Grade II = aspiration < 10 % of the bolus, intact cough reflex Grade III = aspiration of < 10 % of the bolus, reduced cough reflex or aspiration of > 10 % of the bolus, intact cough reflex Grade IV = aspiration of > 10 % of the bolus, reduced cough reflex Penetration-Aspiration Scale Score Thin Liquid via teaspoon: Result: 3= enters airways/above vocal folds/not ejected Thin Liquid via teaspoon Effortful swallow: Result: 3= enters airways/above vocal folds/not ejected Comment: Esophageal screen - some barium appeared to collect in the upper esophagus. [place] Thick Liquid via teaspoon: Result: 2= enter airway/above vocal folds/ejected Comment: Esophageal screen - large pouch-like collection of barium in the upper esophagus suspicious of a Zenker's diverticulum. MEDIA PROMOTER reviewed the image with radiologist, Dr. Grullon, who agreed it appeared to be a Zenker's. Oral Phase Labial Seal: Interlabial escape, no progression to anterior lip Tongue Control During Bolus Hold: Posterior escape of less than half of bolus Bolus Transport/Lingual Motion: Repetitive/disorganized tongue motion Oral Residue: Trace residue lining oral structures Pharyngeal Phase Initiation of Pharyngeal Swallow: Bolus head at posterior laryngeal surgace of epiglottis Soft Palate Elevation: No bolus between soft palate and pharyngeal wall Laryngeal Elevation: Partial superior movement thyroid cart/partial apprx aryt- epig petiole Anterior Hyoid Excursion: Partial anterior movement Epiglottic Movement: Partial inversion Laryngeal Vestibule Closure at Height of Swallow: Incomplete; narrow column of air/contrast in laryngeal vestibule Pharyngeal Stripping Wave: Present - diminished Pharyngoesophageal Segment Opening: Parital distension and partial duration; parital obstruction of flow Tongue Base Retraction: Wide column of contrast between tongue base & post. pharyngeal wall Pharyngeal Residue: Collection of residue within or on pharyngeal structures Esophageal Phase Esophageal Clearance: Minimal to no esophageal clearance (Retrograde flow through the upper esophageal sphincter) Diagnosis/Impression Diagnosis: Mild-mod oropharyngeal dysphagia R13.12, Esophageal dysphagia R13.14 Impression: The oral phase is marked by... -Disorganized tongue motion (lingual pumping) for A-P transport. -Did not assess mastication due to MEDIA PROMOTER concern for choking due to poor esophageal clearance with regurgitation. The pharyngeal phase is marked by... -Decreased airway closure due to poor anterior hyoid excursion, decreased laryngeal elevation, and partial epiglottic inversion. -Laryngeal penetration of all trials after the swallow as the patient was unable to clear a large majority of the boluses from the upper esophagus. He was able to cough and spit out the trials. No aspiration observed; however, cannot fully rule out aspiration due to patient's body habitus. The esophageal phase is marked by... -Pouch-like collection of barium in upper esophagus suspicious for Zenker's diverticulum. Images reviewed with radiologist, Dr. Grullon. -Retrograde flow of barium to the pharynx with laryngeal penetration prior to coughing and spitting up of trials. Figure 1. Esophageal screen of nectar/mildly thick liquid via teaspoon. Recommendations Diet: NPO (Patient has minimal esophageal clearance of barium due to suspected Zenker's diverticulum. MEDIA PROMOTER and radiologist recommended patient go to the [facility] ED.) Need for Skilled Speech Therapy Services: Yes Comment: Recommend ST consult following intervention for esophageal issues as oropharyngeal swallowing deficits are present, as well. Recommended Referrals: GI Consult Education Completed: 1. Described result of evaluation. Status Active ST Patient: Active
== END | disposition home or self-care (01) ==
PROVIDERS: PCP Internal Medicine; Referring Provider Family Medicine; Visit Provider Family Medicine
DX: R13.14 Dysphagia, pharyngoesophageal phase (principal)
CPT/HCPCS: 74230; 92611

== ENCOUNTER 2023-07-27 10:15 | Outpatient (RCR) | payer MEDICARE, MEDICAID, SELFPAY ==
[2023-06-28 00:12] VITALS: BP 119/53; PULSE 73; RESP 16; TEMP 36.6; O2SAT 97
[2023-07-06 10:06] VITALS: BP 122/65; PULSE 68; RESP 16; TEMP 36
--- NOTE | 2023-07-06 11:20 | PCM.WC.PN ---
History of Present Illness Date of Service: 07/06/23 Chief Complaint: Bilateral lower extremity ulcers History of Wound: Mr. Boles is an 83-year-old currently residing at [facility] who presents due to nonhealing bilateral lower extremity ulceration. He was seen here a few months ago and discharged after he achieved healing. Recommendation was for continued use of his lymphedema pump however he states that this has not been used consistently. Current ulceration has been present for weeks. No chills, fever or otherwise feeling of unwell. Progress of Wound: No new concerns at this time. Now resides in a nursing facility and appears to be doing better. Lower extremity edema has improved. Right sinclair also with only minimal area left. He states that he has been using his compression pumps. Objective Data Objective Data Vital Signs: Vital Signs Temp Pulse Resp BP Pulse Ox O2 Del Method 96.8 F L 68 16 122/65 H 97 Room Air 07/06/23 10:06 07/06/23 10:06 07/06/23 10:06 07/06/23 10:06 06/28/23 00:12 07/06/23 10:06 Oxygen Delivery Method Room Air Charges/Coding Procedures Integumentary 111xxx-113xx: 20071 Jaye subq tissue 20 sq cm/< Add On Codes: 33348 Jaye subq tissue add-on (x 6. Additional Sq Cm debrided, please refer to clinical note) Debridement Note Debridement Note Wound debrided: Right medial ankle/foot Type of Debridement: Excisional debridement Anesthesia Used: 4% Lidocaine Solution Depth: Down to and including healthy tissue and in the subcutaneous layer Percentage of wound debrided: 100 Instrument Used: 5mm curette Tissue Removed: Slough and devitalized tissue Severity: Fat Layer Exposed Amount of bleeding with debridement: Mild Bleeding Controlled with: Pressure Patient tolerated procedure: Patient tolerated procedure well Post-Debridement Measurements and Additional Note: Post-Debridement Measurements/Treatment - Nurse 1 - General Ulcer Assessment Start: 07/06/23 10:00 Freq: Status: Active Protocol: LINDA Activity Type Activity Date Activity User E-sign Co-sign Detail Recorded Client Recorded Date Recorded By Document 07/06/23 10:06 [facility] Desktop 07/06/23 10:20 [facility] 07/06/23 10:06 - Today's Visit Information Type of service Follow-up Visit (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 ) Arrival Mode Wheelchair Transfer Assistance Other Transfer Assist (Other) 2 Accompanied by aide from [facility] Patient Identification Verified (Name & Yes ) Patient Requires Transmission-Based No Precautions Vital Signs Temperature (97.8 F-99.1 F) 96.8 F L Temperature Source Temporal Pulse Rate (60-100) 68 Pulse Location Monitor Respiratory Rate (12-18) 16 Respiratory rate source Observation Oxygen Delivery Method Room Air Blood Pressure (90/60-120/80) 122/65 H Blood Pressure Mean (mm Hg) 84 Source Monitor Position Sitting Blood Pressure Location Left Forearm History Since Last Visit- (Skip if this is Patient's initial visit) Any new allergies or adverse reactions No Had a fall/change in ADL's that may No increase risk of falls Signs or symptoms of abuse and/or No neglect since last visit Have you been in the hospital since your No last visit? Has compression in place as prescribed N/A Has offloadiing in place as prescribed N/A Experienced any changes in pain level or No management Left Footwear Custom Shoe Right Footwear Custom Shoe Pain Scale: 0-10 Numeric Is Patient Pain Free? Yes WC - Nurse 1 - General Ulcer Measurement Start: 07/06/23 10:00 Freq: Status: Active Protocol: Activity Type Activity Date Activity User E-sign Co-sign Detail Recorded Client Recorded Date Recorded By Document 07/06/23 10:06 [facility] Desktop 07/06/23 10:20 [facility] 07/06/23 10:06 Wound Center Nurse 1 #14- R LAT ANKLE -Combined with other wound No -Current Size (cm) - Length 12 -Current Size (cm) - Width 8.5 -Current Size (cm) - Depth 0.1 -Total Square Cm 102.0 -Date of Last Picture (Recall this 07/06/23 field) -Photo Taken Yes -Tunneling No -Undermining/Tunneling No -Circular Undermining No -Exudate Amt Large -Exudate Type Serosanguineous -Wound Margin Distinct, Outline Attached -Granulation Amt None Present (0 %) -Slough/Fibrin Yes -Necrosis Amt Large (67-100%) -Necrotic Tissue Type Adherent Slough -Texture ([place]-wound Skin Appearance) Assessed, Scarring -Moisture ([place]-wound Skin Appearance) Assessed, Maceration, Weeping,Dry/ Scaly -Color ([place]-wound Skin Appearance) Assessed -Temperature ([place]-wound Skin No Abnormality Appearance) (Pt Warm) -Tenderness on Palpation ([place]-wound No Skin Appearance) -Ulcer Cleansing Soap and Water -Foul Odor after Cleansing No -Anesthetic Used 4% Lidocaine Solution 13-right medial ankle -Combined with other wound No -Current Size (cm) - Length 9.5 -Current Size (cm) - Width 7.7 -Current Size (cm) - Depth 0.1 -Total Square Cm 73.15 -Date of Last Picture (Recall this 07/06/23 field) -Photo Taken Yes -Tunneling No -Undermining/Tunneling No -Circular Undermining No -Exudate Amt Large -Exudate Type Serosanguineous -Wound Margin Distinct, Outline Attached -Granulation Amt Small (1-33%) -Granulation Quality Red -Slough/Fibrin Yes -Necrosis Amt Large (67-100%) -Necrotic Tissue Type Adherent Slough -Texture ([place]-wound Skin Appearance) Assessed, Scarring -Moisture ([place]-wound Skin Appearance) Assessed, Maceration, Weeping,Dry/ Scaly -Color ([place]-wound Skin Appearance) Assessed -Temperature ([place]-wound Skin No Abnormality Appearance) (Pt Warm) -Tenderness on Palpation ([place]-wound No Skin Appearance) -Ulcer Cleansing Soap and Water -Foul Odor after Cleansing No -Anesthetic Used 4% Lidocaine Solution #12- R SINCLAIR CLUSTER -Combined with other wound No -Date of Last Picture (Recall this 07/06/23 field) -Photo Taken Yes -Tunneling No -Undermining/Tunneling No -Circular Undermining No -Exudate Amt None Present -Wound Margin Distinct, Outline Attached -Granulation Amt None Present (0 %) -Slough/Fibrin Yes -Necrosis Amt Large (67-100%) -Necrotic Tissue Type Eschar -Texture ([place]-wound Skin Appearance) Assessed, Scarring -Moisture ([place]-wound Skin Appearance) Assessed,Dry/ Scaly -Color ([place]-wound Skin Appearance) Assessed -Temperature ([place]-wound Skin No Abnormality Appearance) (Pt Warm) -Tenderness on Palpation ([place]-wound No Skin Appearance) -Ulcer Cleansing Soap and Water -Foul Odor after Cleansing No -Anesthetic Used 4% Lidocaine Solution Lower Limb Edema Present Yes Right Calf (cm) 38 Right Ankle (cm) 34 Left Calf (cm) 40.8 Left Ankle (cm) 29.3 WC - Nurse 2 - General Ulcer CM Notes Start: 07/06/23 10:00 Freq: Status: Active Protocol: Activity Type Activity Date Activity User E-sign Co-sign Detail Recorded Client Recorded Date Recorded By Document 07/06/23 10:36 [facility] Desktop 07/06/23 10:45 [facility] 07/06/23 10:36 Wound Center Nurse 2 #14- R LAT ANKLE -Time 10:37 -Correct Patient Yes -Correct Side, Site, Position Yes -Correct Procedure Yes -Procedure Performed Yes -Type of Procedure Debridement -Clinical Debridement Subcutaneous -Tissue Removed Subcutaneous -Post Debridement (cm) - Length 6.0 -Post Debridement (cm) - Width 15.0 -Post Debridement (cm) - Depth 0.1 -Total Square (Post) (cm) 90.00 -Area of Debridement (cm) - Length 6.0 -Area of Debridement (cm) - Width 1.5 -Total Square (Area) (cm) 9.00 -Tunneling No -Undermining/Tunneling No -Circular Undermining No -Wound/Ulcer Outcome Not Healed -Ulcer Cleansing Wound Cleanser -Foul Odor after Cleansing No -Bioengineered Tissue No -Bleeding Controlled with Pressure -Treatment Response Procedure Tolerated Well -Debridement - Subq, 1st 20sq cm No 13-right medial ankle -Time 10:37 -Correct Patient Yes -Correct Side, Site, Position Yes -Correct Procedure Yes -Procedure Performed Yes -Type of Procedure Debridement -Clinical Debridement Subcutaneous -Tissue Removed Subcutaneous -Post Debridement (cm) - Length 7.0 -Post Debridement (cm) - Width 7.0 -Post Debridement (cm) - Depth 0.1 -Total Square (Post) (cm) 49.00 -Area of Debridement (cm) - Length 7.0 -Area of Debridement (cm) - Width 7.0 -Total Square (Area) (cm) 49.00 -Tunneling No -Undermining/Tunneling No -Circular Undermining No -Wound/Ulcer Outcome Not Healed -Ulcer Cleansing Rinsed/ Irrigated with Saline -Foul Odor after Cleansing No -Bioengineered Tissue No -Bleeding Controlled with Pressure -Treatment Response Procedure Tolerated Well -Debridement - Subq, 1st 20sq cm Yes -Debridement, SubQ, ea addt'l 20sq cm 6 or part thereof #12- R SINCLAIR CLUSTER -Time 10:38 -Correct Patient Yes -Correct Side, Site, Position Yes -Correct Procedure Yes -Procedure Performed Yes -Type of Procedure Debridement -Clinical Debridement Subcutaneous -Tissue Removed Subcutaneous -Post Debridement (cm) - Length 0.1 -Post Debridement (cm) - Width 0.1 -Post Debridement (cm) - Depth 0.1 -Total Square (Post) (cm) 0.01 -Tunneling No -Undermining/Tunneling No -Circular Undermining No -Wound/Ulcer Outcome Not Healed -Ulcer Cleansing Rinsed/ Irrigated with Saline -Foul Odor after Cleansing No -Bioengineered Tissue No -Bleeding Controlled with Pressure -Treatment Response Procedure Tolerated Well -Debridement - Subq, 1st 20sq cm No Pain Scale: 0-10 Numeric Is Patient Pain Free? Yes - Nurse 3 - General Ulcer D/C NN Start: 07/06/23 10:00 Freq: Status: Active Protocol: Activity Type Activity Date Activity User E-sign Co-sign Detail Recorded Client Recorded Date Recorded By Document 07/06/23 10:58 Laptop 07/06/23 11:00 07/06/23 10:58 Wound Care Center Nurse 3 #14- R LAT ANKLE -Ulcer Cleansing Rinsed/ Irrigated with Saline -Foul Odor after Cleansing No -Primary Dressing Applied Aquacel Extra, Optilok 6.5x10 -Primary Dressing Covered/Secured with Dry Gauze & Roll Gauze -Aquacel Extra 1 -Optilok 6.5x10 1 13-right medial ankle -Ulcer Cleansing Rinsed/ Irrigated with Saline -Foul Odor after Cleansing No -Primary Dressing Applied Aquacel Extra, Optilok 6.5x10 -Aquacel Extra 0 -Optilok 6.5x10 1 #12- R SINCLAIR CLUSTER -Ulcer Cleansing Rinsed/ Irrigated with Saline -Foul Odor after Cleansing No -Other Dressing abd pad -Primary Dressing Covered/Secured with Dry Gauze & Roll Gauze Right -Compression Wrap Hiro Wrap Left -Compression Wrap Hiro Wrap Pain Scale: 0-10 Numeric Is Patient Pain Free? Yes WC - Visit Discharge Discharge Condition Stable Ambulatory Status Wheelchair Transportation Private Auto Accompanied by caregiver Medication Reconcilliation completed & Yes provided to patient/care provider Clinical Summary of Care Provided Yes Additional Wound Wound debrided: Right lateral ankle/foot Type of Debridement: Excisional debridement Anesthesia Used: 4% Lidocaine Solution Depth: Down to and including healthy tissue and in the subcutaneous layer Percentage of wound debrided: 100 Instrument Used: 5mm curette Tissue Removed: Slough and devitalized tissue Severity: Fat Layer Exposed Amount of bleeding with debridement: Mild Bleeding Controlled with: Pressure Patient tolerated procedure: Patient tolerated procedure well Additional Wound Wound debrided: Right sinclair Type of Debridement: Selective debridement Anesthesia Used: 4% Lidocaine Solution Depth: Down to and including healthy tissue Percentage of wound debrided: 100 Instrument Used: 5mm curette Tissue Removed: Devitalized tissue Severity: Limited To Skin Breakdown Amount of bleeding with debridement: Mild Bleeding Controlled with: Pressure Patient tolerated procedure: Patient tolerated procedure well Assessment/Plan Assessment/Plan (1) Ulcer of right lower extremity with fat layer exposed: CODE(S): L97.912 - Non-pressure chronic ulcer of unspecified part of right lower leg with fat layer exposed (2) Ulcer of left lower extremity with fat layer exposed: CODE(S): L97.922 - Non-pressure chronic 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 Good improvement noted both in ulcer size and edema. As above, now resides in a nursing facility and appears to have better care. He also appeared happier. Continue Aquacel extra to all open areas, cover with superabsorbent dressing. Change 2x daily and prn. Double layer Tubigrip for edema management. Continue use of lymphedema pump twice daily. Continue other chronic wound care. His questions were answered and he was advised to call with any further questions or concerns. This note was generated with Possible [employer]ation software. It may contain incorrect words, spelling, and punctuation that were not noted in checking the note before signing.
[2023-07-13 10:31] VITALS: BP 128/73; PULSE 66; RESP 16; TEMP 36.1
--- NOTE | 2023-07-13 11:33 | PCM.WC.PN ---
History of Present Illness Date of Service: 07/13/23 Chief Complaint: Bilateral lower extremity ulcers History of Wound: Mr. Boles is an 83-year-old currently residing at [facility] who presents due to nonhealing bilateral lower extremity ulceration. He was seen here a few months ago and discharged after he achieved healing. Recommendation was for continued use of his lymphedema pump however he states that this has not been used consistently. Current ulceration has been present for weeks. No chills, fever or otherwise feeling of unwell. Progress of Wound: No new concerns at this time. Improving. left sinclair remains healed and right sinclair with minimal area left. Ankle/foot ulcer also with some improvement. Objective Data Objective Data Vital Signs: Vital Signs Temp Pulse Resp BP Pulse Ox O2 Del Method 97 F L 66 16 128/73 H 97 Room Air 07/13/23 10:31 07/13/23 10:31 07/13/23 10:31 07/13/23 10:31 06/28/23 00:12 07/13/23 10:31 Oxygen Delivery Method Room Air Charges/Coding Procedures Integumentary 111xxx-113xx: 07897 Jaye subq tissue 20 sq cm/< Add On Codes: 62620 Jaye subq tissue add-on (x 6. Additional Sq Cm debrided, please refer to clinical note) Physical Exam Const alert, oriented x3 and no apparent distress General Appearance: cooperative, comfortable and well kempt HEENT normocephalic and head/scalp atraumatic Eyes EOMs intact bilaterally General Eye: normal appearance of both eyes Neck full ROM General: normal visual inspection Resp normal respiratory effort Effort and Inspection: able to speak in complete sentences Extremity General Extremity: edema Skin Wounds: wounds noted Neuro oriented x3, CN's II-XII intact bilaterally, moves all extremities and no focal motor deficits Psych mental status grossly normal, thought process normal, cooperative and affect normal Debridement Note Debridement Note Wound debrided: Right medial ankle/foot Type of Debridement: Excisional debridement Anesthesia Used: 4% Lidocaine Solution Depth: Down to and including healthy tissue and in the subcutaneous layer Percentage of wound debrided: 100 Instrument Used: 5mm curette Tissue Removed: Slough and devitalized tissue Severity: Fat Layer Exposed Amount of bleeding with debridement: Mild Bleeding Controlled with: Pressure Patient tolerated procedure: Patient tolerated procedure well Post-Debridement Measurements and Additional Note: Post-Debridement Measurements/Treatment WC - Nurse 1 - General Ulcer Assessment Start: 07/06/23 10:00 Freq: Status: Active Protocol: LINDA Activity Type Activity Date Activity User E-sign Co-sign Detail Recorded Client Recorded Date Recorded By Document 07/06/23 10:06 [employer] Desktop 07/06/23 10:20 BMF Document 07/13/23 10:31 [facility] Desktop 07/13/23 10:47 F 07/06/23 07/13/23 10:06 10:31 WC - Today's Visit Information Type of service Follow-up Visit Follow-up Visit (Physician/BAKER BISCUIT (Physician/BAKER BISCUIT ) ) Arrival Mode Wheelchair Wheelchair Transfer Assistance Other Other Transfer Assist (Other) 2 1 Accompanied by aide from [facility] CAREGIVER Patient Identification Verified (Name & Yes Yes ) Patient Requires Transmission-Based No Precautions Vital Signs Temperature (97.8 F-99.1 F) 96.8 F L 97 F L Temperature Source Temporal Temporal Pulse Rate (60-100) 68 66 Pulse Location Monitor Monitor Respiratory Rate (12-18) 16 16 Respiratory rate source Observation Observation Oxygen Delivery Method Room Air Room Air Blood Pressure (90/60-120/80) 122/65 H 128/73 H Blood Pressure Mean (mm Hg) 84 91 Source Monitor Monitor Position Sitting Sitting Blood Pressure Location Left Forearm Right Forearm History Since Last Visit- (Skip if this is Patient's initial visit) Have you changed medications since your No last visit? Any new allergies or adverse reactions No No Had a fall/change in ADL's that may No No increase risk of falls Signs or symptoms of abuse and/or No No neglect since last visit Have you been in the hospital since your No No last visit? Has dressing in place as prescribed Yes Has compression in place as prescribed N/A Yes Has offloadiing in place as prescribed N/A N/A Experienced any changes in pain level or No No management Left Footwear Custom Shoe Regular Shoe Right Footwear Custom Shoe Regular Shoe Pain Scale: 0-10 Numeric Is Patient Pain Free? Yes Yes JANAY Sheets Nurse 1 - General Ulcer Measurement Start: 07/06/23 10:00 Freq: Status: Active Protocol: Activity Type Activity Date Activity User E-sign Co-sign Detail Recorded Client Recorded Date Recorded By Document 07/06/23 10:06 [facility] Desktop 07/06/23 10:20 [facility] Document 07/13/23 10:31 [facility] Desktop 07/13/23 10:47 [facility] 07/06/23 07/13/23 10:06 10:31 Wound Center Nurse 1 #14- R LAT ANKLE -Combined with other wound No -Current Size (cm) - Length 12 12.2 -Current Size (cm) - Width 8.5 7.4 -Current Size (cm) - Depth 0.1 0.1 -Total Square Cm 102.0 90.28 -Date of Last Picture (Recall this 07/06/23 field) -Photo Taken Yes -Tunneling No -Undermining/Tunneling No -Circular Undermining No -Exudate Amt Large Medium -Exudate Type Serosanguineous Serosanguineous -Wound Margin Distinct, Distinct, Outline Outline Attached Attached -Granulation Amt None Present (0 Small (1-33%) %) -Granulation Quality Hyde -Slough/Fibrin Yes -Necrosis Amt Large (67-100%) Small (1-33%) -Necrotic Tissue Type Adherent Slough Adherent Slough -Structure Exposed N/A -Texture ([place]-wound Skin Appearance) Assessed, Scarring Scarring -Moisture ([place]-wound Skin Appearance) Assessed, No Abnormality Maceration, Weeping,Dry/ Scaly -Color ([place]-wound Skin Appearance) Assessed Hemosiderin Staining -Temperature ([place]-wound Skin No Abnormality No Abnormality Appearance) (Pt Warm) (Pt Warm) -Tenderness on Palpation ([place]-wound No Skin Appearance) -Ulcer Cleansing Soap and Water Soap and Water -Foul Odor after Cleansing No No -Anesthetic Used 4% Lidocaine 4% Lidocaine Solution Solution 13-right medial ankle -Combined with other wound No -Current Size (cm) - Length 9.5 10.2 -Current Size (cm) - Width 7.7 7.5 -Current Size (cm) - Depth 0.1 0.1 -Total Square Cm 73.15 76.50 -Date of Last Picture (Recall this 07/06/23 field) -Photo Taken Yes -Tunneling No -Undermining/Tunneling No -Circular Undermining No -Exudate Amt Large Medium -Exudate Type Serosanguineous Serosanguineous -Wound Margin Distinct, Distinct, Outline Outline Attached Attached -Granulation Amt Small (1-33%) Small (1-33%) -Granulation Quality Red [place] -Slough/Fibrin Yes -Necrosis Amt Large (67-100%) Large (67-100%) -Necrotic Tissue Type Adherent Slough Adherent Slough -Structure Exposed N/A -Texture ([place]-wound Skin Appearance) Assessed, Scarring Scarring -Moisture ([place]-wound Skin Appearance) Assessed, No Abnormality Maceration, Weeping,Dry/ Scaly -Color ([place]-wound Skin Appearance) Assessed Hemosiderin Staining -Temperature ([place]-wound Skin No Abnormality No Abnormality Appearance) (Pt Warm) (Pt Warm) -Tenderness on Palpation ([place]-wound No No Skin Appearance) -Ulcer Cleansing Soap and Water Soap and Water -Foul Odor after Cleansing No No -Anesthetic Used 4% Lidocaine 4% Lidocaine Solution Solution #12- R SINCLAIR CLUSTER -Combined with other wound No -Current Size (cm) - Length 0.1 -Current Size (cm) - Width 0.1 -Current Size (cm) - Depth 0.1 -Total Square Cm 0.01 -Date of Last Picture (Recall this 07/06/23 field) -Photo Taken Yes -Tunneling No -Undermining/Tunneling No -Circular Undermining No -Exudate Amt None Present None Present -Wound Margin Distinct, Indistinct, Non Outline -Visible Attached -Granulation Amt None Present (0 Large (67-100%) %) -Granulation Quality Hyde -Slough/Fibrin Yes -Necrosis Amt Large (67-100%) None Present (0 %) -Necrotic Tissue Type Eschar -Structure Exposed N/A -Texture ([place]-wound Skin Appearance) Assessed, Scarring Scarring -Moisture ([place]-wound Skin Appearance) Assessed,Dry/ No Abnormality, Scaly Dry/Scaly -Color ([place]-wound Skin Appearance) Assessed Hemosiderin Staining -Temperature ([place]-wound Skin No Abnormality No Abnormality Appearance) (Pt Warm) (Pt Warm) -Tenderness on Palpation ([place]-wound No No Skin Appearance) -Ulcer Cleansing Soap and Water Soap and Water -Foul Odor after Cleansing No No -Anesthetic Used 4% Lidocaine 4% Lidocaine Solution Solution Lower Limb Edema Present Yes Right Calf (cm) 38 50.3 Right Ankle (cm) 34 32 Left Calf (cm) 40.8 41.5 Left Ankle (cm) 29.3 31.2 WC - Nurse 2 - General Ulcer CM Notes Start: 07/06/23 10:00 Freq: Status: Active Protocol: Activity Type Activity Date Activity User E-sign Co-sign Detail Recorded Client Recorded Date Recorded By Document 07/06/23 10:36 Desktop 07/06/23 10:45 GM Document 07/13/23 11:04 GM Desktop 07/13/23 11:14 07/06/23 07/13/23 10:36 11:04 Wound Center Nurse 2 #14- R LAT ANKLE -Time 10:37 11:04 -Correct Patient Yes Yes -Correct Side, Site, Position Yes Yes -Correct Procedure Yes Yes -Procedure Performed Yes Yes -Type of Procedure Debridement Debridement -Clinical Debridement Subcutaneous Subcutaneous -Tissue Removed Subcutaneous Subcutaneous -Post Debridement (cm) - Length 6.0 6.0 -Post Debridement (cm) - Width 15.0 13.0 -Post Debridement (cm) - Depth 0.1 0.1 -Total Square (Post) (cm) 90.00 78.00 -Area of Debridement (cm) - Length 6.0 6.0 -Area of Debridement (cm) - Width 1.5 13.0 -Total Square (Area) (cm) 9.00 78.00 -Tunneling No No -Undermining/Tunneling No No -Circular Undermining No No -Wound/Ulcer Outcome Not Healed Not Healed -Ulcer Cleansing Wound Cleanser Rinsed/ Irrigated with Saline -Foul Odor after Cleansing No No -Bioengineered Tissue No No -Bleeding Controlled with Pressure Pressure -Treatment Response Procedure Procedure Tolerated Well Tolerated Well -Debridement - Subq, 1st 20sq cm No No 13-right medial ankle -Time 10:37 11:04 -Correct Patient Yes Yes -Correct Side, Site, Position Yes Yes -Correct Procedure Yes Yes -Procedure Performed Yes Yes -Type of Procedure Debridement Debridement -Clinical Debridement Subcutaneous Subcutaneous -Tissue Removed Subcutaneous Subcutaneous -Post Debridement (cm) - Length 7.0 5.0 -Post Debridement (cm) - Width 7.0 8.0 -Post Debridement (cm) - Depth 0.1 0.1 -Total Square (Post) (cm) 49.00 40.00 -Area of Debridement (cm) - Length 7.0 5.0 -Area of Debridement (cm) - Width 7.0 8.0 -Total Square (Area) (cm) 49.00 40.00 -Tunneling No No -Undermining/Tunneling No No -Circular Undermining No No -Wound/Ulcer Outcome Not Healed Not Healed -Ulcer Cleansing Rinsed/ Wound Cleanser Irrigated with Saline -Foul Odor after Cleansing No No -Bioengineered Tissue No No -Bleeding Controlled with Pressure -Treatment Response Procedure Tolerated Well -Debridement - Subq, 1st 20sq cm Yes Yes -Debridement, SubQ, ea addt'l 20sq cm 6 5 or part thereof #12- R SINCLAIR CLUSTER -Time 10:38 11:04 -Correct Patient Yes Yes -Correct Side, Site, Position Yes Yes -Correct Procedure Yes Yes -Procedure Performed Yes Yes -Type of Procedure Debridement Debridement -Clinical Debridement Subcutaneous Subcutaneous -Tissue Removed Subcutaneous Subcutaneous -Post Debridement (cm) - Length 0.1 -Post Debridement (cm) - Width 0.1 -Post Debridement (cm) - Depth 0.1 -Total Square (Post) (cm) 0.01 -Tunneling No -Undermining/Tunneling No -Circular Undermining No -Wound/Ulcer Outcome Not Healed -Ulcer Cleansing Rinsed/ Irrigated with Saline -Foul Odor after Cleansing No -Bioengineered Tissue No -Bleeding Controlled with Pressure -Treatment Response Procedure Tolerated Well -Debridement - Subq, 1st 20sq cm No No Pain Scale: 0-10 Numeric Is Patient Pain Free? Yes Yes - Nurse 3 - General Ulcer D/C NN Start: 07/06/23 10:00 Freq: Status: Active Protocol: Activity Type Activity Date Activity User E-sign Co-sign Detail Recorded Client Recorded Date Recorded By Document 07/06/23 10:58 Laptop 07/06/23 11:00 07/06/23 10:58 Wound Care Center Nurse 3 #14- R LAT ANKLE -Ulcer Cleansing Rinsed/ Irrigated with Saline -Foul Odor after Cleansing No -Primary Dressing Applied Aquacel Extra, Optilok 6.5x10 -Primary Dressing Covered/Secured with Dry Gauze & Roll Gauze -Aquacel Extra 1 -Optilok 6.5x10 1 13-right medial ankle -Ulcer Cleansing Rinsed/ Irrigated with Saline -Foul Odor after Cleansing No -Primary Dressing Applied Aquacel Extra, Optilok 6.5x10 -Aquacel Extra 0 -Optilok 6.5x10 1 #12- R SINCLAIR CLUSTER -Ulcer Cleansing Rinsed/ Irrigated with Saline -Foul Odor after Cleansing No -Other Dressing abd pad -Primary Dressing Covered/Secured with Dry Gauze & Roll Gauze Right -Compression Wrap Hiro Wrap Left -Compression Wrap Hiro Wrap Pain Scale: 0-10 Numeric Is Patient Pain Free? Yes WC - Visit Discharge Discharge Condition Stable Ambulatory Status Wheelchair Transportation Private Auto Accompanied by caregiver Medication Reconcilliation completed & Yes provided to patient/care provider Clinical Summary of Care Provided Yes Additional Wound Wound debrided: Right lateral ankle/foot Type of Debridement: Excisional debridement Anesthesia Used: 4% Lidocaine Solution Depth: Down to and including healthy tissue and in the subcutaneous layer Percentage of wound debrided: 100 Instrument Used: 5mm curette Tissue Removed: Slough and devitalized tissue Severity: Fat Layer Exposed Amount of bleeding with debridement: Mild Bleeding Controlled with: Pressure Patient tolerated procedure: Patient tolerated procedure well Assessment/Plan Assessment/Plan (1) Ulcer of right lower extremity with fat layer exposed: CODE(S): L97.912 - Non-pressure chronic ulcer of unspecified part of right lower leg with fat layer exposed (2) Ulcer of left lower extremity with fat layer exposed: CODE(S): L97.922 - Non-pressure chronic 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 Continues to show good improvement. No new concerns at this time. Continue Aquacel extra to all open areas, cover with superabsorbent dressing. Change 2x daily and prn. Double layer Tubigrip for edema management. Adaptic over right sinclair. Continue use of lymphedema pump twice daily. Continue other chronic wound care. His questions were answered and he was advised to call with any further questions or concerns. Follow-up in 2 weeks or sooner if needed. This note was generated with [employer] software. It may contain incorrect words, spelling, and punctuation that were not noted in checking the note before signing.
[2023-07-27 09:59] VITALS: BP 133/74; PULSE 69; RESP 16; TEMP 36.1
--- NOTE | 2023-07-27 10:53 | PCM.WC.PN ---
History of Present Illness Date of Service: 07/27/23 Chief Complaint: Bilateral lower extremity ulcers History of Wound: Mr. Boles is an 83-year-old currently residing at [facility] who presents due to nonhealing bilateral lower extremity ulceration. He was seen here a few months ago and discharged after he achieved healing. Recommendation was for continued use of his lymphedema pump however he states that this has not been used consistently. Current ulceration has been present for weeks. No chills, fever or otherwise feeling of unwell. Progress of Wound: No new concerns at this time. Improving. Objective Data Objective Data Vital Signs: Vital Signs Temp Pulse Resp BP Pulse Ox O2 Del Method 96.9 F L 69 16 133/74 H 97 Room Air 07/27/23 09:59 07/27/23 09:59 07/27/23 09:59 07/27/23 09:59 06/28/23 00:12 07/27/23 09:59 Oxygen Delivery Method Room Air Charges/Coding Procedures Integumentary 111xxx-113xx: 25086 Jaye subq tissue 20 sq cm/< Add On Codes: 61071 Jaye subq tissue add-on (x5. Additional square centimeter debrided, please refer to clinical note) Physical Exam Const alert, oriented x3 and no apparent distress General Appearance: cooperative, comfortable and well kempt HEENT normocephalic and head/scalp atraumatic Eyes EOMs intact bilaterally General Eye: normal appearance of both eyes Neck full ROM General: normal visual inspection Resp normal respiratory effort Effort and Inspection: able to speak in complete sentences Extremity General Extremity: edema Skin Wounds: wounds noted Neuro oriented x3, CN's II-XII intact bilaterally, moves all extremities and no focal motor deficits Psych mental status grossly normal, thought process normal, cooperative and affect normal Debridement Note Debridement Note Wound debrided: Right medial ankle/foot Type of Debridement: Excisional debridement Anesthesia Used: 4% Lidocaine Solution Depth: Down to and including healthy tissue and in the subcutaneous layer Percentage of wound debrided: 100 Instrument Used: 5mm curette Tissue Removed: Slough and devitalized tissue Severity: Fat Layer Exposed Amount of bleeding with debridement: Mild Bleeding Controlled with: Pressure Patient tolerated procedure: Patient tolerated procedure well Post-Debridement Measurements and Additional Note: Post-Debridement Measurements/Treatment WC - Nurse 1 - General Ulcer Assessment Start: 07/06/23 10:00 Freq: Status: Active Protocol: WC.LOWEXT Activity Type Activity Date Activity User E-sign Co-sign Detail Recorded Client Recorded Date Recorded By Document 07/06/23 10:06 BMF Desktop 07/06/23 10:20 BMF Document 07/13/23 10:31 BMF Desktop 07/13/23 10:47 BMF Document 07/27/23 09:59 BMF Desktop 07/27/23 10:15 BMF 07/06/23 07/13/23 07/27/23 10:06 10:31 09:59 - Today's Visit Information Type of service Follow-up Visit Follow-up Visit Follow-up Visit (Physician/REAL ESTATE ACQUISITION ANALYST (Physician/REAL ESTATE ACQUISITION ANALYST (Physician/REAL ESTATE ACQUISITION ANALYST ) ) ) Arrival Mode Wheelchair Wheelchair Wheelchair Transfer Assistance Other Other Other Transfer Assist (Other) 2 1 2 stand by Accompanied by aide from ecf CAREGIVER caregiver Patient Identification Verified (Name & Yes Yes Yes ) Patient Requires Transmission-Based No No Precautions Vital Signs Temperature (97.8 F-99.1 F) 96.8 F L 97 F L 96.9 F L Temperature Source Temporal Temporal Temporal Pulse Rate (60-100) 68 66 69 Pulse Location Monitor Monitor Monitor Respiratory Rate (12-18) 16 16 16 Respiratory rate source Observation Observation Observation Oxygen Delivery Method Room Air Room Air Room Air Blood Pressure (90/60-120/80) 122/65 H 128/73 H 133/74 H Blood Pressure Mean (mm Hg) 84 91 93 Source Monitor Monitor Monitor Position Sitting Sitting Sitting Blood Pressure Location Left Forearm Right Forearm Right Forearm History Since Last Visit- (Skip if this is Patient's initial visit) Have you changed medications since your No No last visit? Any new allergies or adverse reactions No No No Had a fall/change in ADL's that may No No No increase risk of falls Signs or symptoms of abuse and/or No No No neglect since last visit Have you been in the hospital since your No No No last visit? Has dressing in place as prescribed Yes Yes Has compression in place as prescribed N/A Yes No Has offloadiing in place as prescribed N/A N/A N/A Experienced any changes in pain level or No No No management Left Footwear Custom Shoe Regular Shoe Custom Shoe Right Footwear Custom Shoe Regular Shoe Custom Shoe Pain Scale: 0-10 Numeric Is Patient Pain Free? Yes Yes Yes WC - Nurse 1 - General Ulcer Measurement Start: 07/06/23 10:00 Freq: Status: Active Protocol: Activity Type Activity Date Activity User E-sign Co-sign Detail Recorded Client Recorded Date Recorded By Document 07/06/23 10:06 BMF Desktop 07/06/23 10:20 BMF Document 07/13/23 10:31 [employer] Desktop 07/13/23 10:47 BMF Document 07/27/23 09:59 [employer] Desktop 07/27/23 10:15 BMF 07/06/23 07/13/23 07/27/23 10:06 10:31 09:59 Wound Center Nurse 1 #12- R SINCLAIR CLUSTER -Combined with other wound No -Current Size (cm) - Length 0.1 -Current Size (cm) - Width 0.1 -Current Size (cm) - Depth 0.1 -Total Square Cm 0.01 -Date of Last Picture (Recall this 07/06/23 field) -Photo Taken Yes -Tunneling No -Undermining/Tunneling No -Circular Undermining No -Exudate Amt None Present None Present -Wound Margin Distinct, Indistinct, Non Outline -Visible Attached -Granulation Amt None Present (0 Large (67-100%) %) -Granulation Quality [place] -Slough/Fibrin Yes -Necrosis Amt Large (67-100%) None Present (0 %) -Necrotic Tissue Type Eschar -Structure Exposed N/A -Texture ([place]-wound Skin Appearance) Assessed, Scarring Scarring -Moisture ([place]-wound Skin Appearance) Assessed,Dry/ No Abnormality, Scaly Dry/Scaly -Color ([place]-wound Skin Appearance) Assessed Hemosiderin Staining -Temperature ([place]-wound Skin No Abnormality No Abnormality Appearance) (Pt Warm) (Pt Warm) -Tenderness on Palpation ([place]-wound No No Skin Appearance) -Ulcer Cleansing Soap and Water Soap and Water -Foul Odor after Cleansing No No -Anesthetic Used 4% Lidocaine 4% Lidocaine Solution Solution #14- R LAT ANKLE -Combined with other wound No No -Current Size (cm) - Length 12 12.2 9.5 -Current Size (cm) - Width 8.5 7.4 10.5 -Current Size (cm) - Depth 0.1 0.1 0.1 -Total Square Cm 102.0 90.28 99.75 -Date of Last Picture (Recall this 07/06/23 field) -Photo Taken Yes -Epithelialization Small 1-33% -Tunneling No No -Undermining/Tunneling No No -Circular Undermining No No -Exudate Amt Large Medium Large -Exudate Type Serosanguineous Serosanguineous Serosanguineous -Wound Margin Distinct, Distinct, Flat & Intact Outline Outline Attached Attached -Granulation Amt None Present (0 Small (1-33%) Medium (34-66%) %) -Granulation Quality [place] -Slough/Fibrin Yes Yes -Necrosis Amt Large (67-100%) Small (1-33%) Medium (34-66%) -Necrotic Tissue Type Adherent Slough Adherent Slough Adherent Slough -Structure Exposed N/A -Texture ([place]-wound Skin Appearance) Assessed, Scarring Assessed, Scarring Scarring -Moisture ([place]-wound Skin Appearance) Assessed, No Abnormality Assessed,Dry/ Maceration, Scaly Weeping,Dry/ Scaly -Color ([place]-wound Skin Appearance) Assessed Hemosiderin Assessed Staining -Temperature ([place]-wound Skin No Abnormality No Abnormality No Abnormality Appearance) (Pt Warm) (Pt Warm) (Pt Warm) -Tenderness on Palpation ([place]-wound No No Skin Appearance) -Ulcer Cleansing Soap and Water Soap and Water Soap and Water -Foul Odor after Cleansing No No No -Anesthetic Used 4% Lidocaine 4% Lidocaine 4% Lidocaine Solution Solution Solution 13-right medial ankle -Combined with other wound No No -Current Size (cm) - Length 9.5 10.2 6.5 -Current Size (cm) - Width 7.7 7.5 7.5 -Current Size (cm) - Depth 0.1 0.1 0.1 -Total Square Cm 73.15 76.50 48.75 -Date of Last Picture (Recall this 07/06/23 field) -Photo Taken Yes No -Epithelialization Small 1-33% -Tunneling No No -Undermining/Tunneling No No -Circular Undermining No No -Exudate Amt Large Medium Large -Exudate Type Serosanguineous Serosanguineous Serosanguineous -Wound Margin Distinct, Distinct, Flat & Intact Outline Outline Attached Attached -Granulation Amt Small (1-33%) Small (1-33%) Medium (34-66%) -Granulation Quality [place] -Slough/Fibrin Yes Yes -Necrosis Amt Large (67-100%) Large (67-100%) Medium (34-66%) -Necrotic Tissue Type Adherent Slough Adherent Slough Adherent Slough -Structure Exposed N/A -Texture ([place]-wound Skin Appearance) Assessed, Scarring Assessed, Scarring Scarring -Moisture ([place]-wound Skin Appearance) Assessed, No Abnormality Assessed,Dry/ Maceration, Scaly Weeping,Dry/ Scaly -Color ([place]-wound Skin Appearance) Assessed Hemosiderin Assessed Staining -Temperature ([place]-wound Skin No Abnormality No Abnormality No Abnormality Appearance) (Pt Warm) (Pt Warm) (Pt Warm) -Tenderness on Palpation ([place]-wound No No No Skin Appearance) -Ulcer Cleansing Soap and Water Soap and Water Soap and Water -Foul Odor after Cleansing No No No -Anesthetic Used 4% Lidocaine 4% Lidocaine 4% Lidocaine Solution Solution Solution Lower Limb Edema Present Yes Yes Right Calf (cm) 38 50.3 49.7 Right Ankle (cm) 34 32 30.5 Left Calf (cm) 40.8 41.5 41.8 Left Ankle (cm) 29.3 31.2 30.4 WC - Nurse 2 - General Ulcer CM Notes Start: 07/06/23 10:00 Freq: Status: Active Protocol: Activity Type Activity Date Activity User E-sign Co-sign Detail Recorded Client Recorded Date Recorded By Document 07/06/23 10:36 [email or web address] 07/06/23 10:45 Document 07/13/23 11:04 Desktop 07/13/23 11:14 Document 07/27/23 10:37 Desktop 07/27/23 10:44 07/06/23 07/13/23 07/27/23 10:36 11:04 10:37 Wound Center Nurse 2 #12- R SINCLAIR CLUSTER -Time 10:38 11:04 -Correct Patient Yes Yes -Correct Side, Site, Position Yes Yes -Correct Procedure Yes Yes -Procedure Performed Yes Yes -Type of Procedure Debridement Debridement -Clinical Debridement Subcutaneous Subcutaneous -Tissue Removed Subcutaneous Subcutaneous -Post Debridement (cm) - Length 0.1 -Post Debridement (cm) - Width 0.1 -Post Debridement (cm) - Depth 0.1 -Total Square (Post) (cm) 0.01 -Tunneling No -Undermining/Tunneling No -Circular Undermining No -Wound/Ulcer Outcome Not Healed -Ulcer Cleansing Rinsed/ Irrigated with Saline -Foul Odor after Cleansing No -Bioengineered Tissue No -Bleeding Controlled with Pressure -Treatment Response Procedure Tolerated Well -Debridement - Subq, 1st 20sq cm No No #14- R LAT ANKLE -Time 10:37 11:04 10:37 -Correct Patient Yes Yes Yes -Correct Side, Site, Position Yes Yes Yes -Correct Procedure Yes Yes Yes -Procedure Performed Yes Yes Yes -Type of Procedure Debridement Debridement Debridement -Clinical Debridement Subcutaneous Subcutaneous Subcutaneous -Tissue Removed Subcutaneous Subcutaneous Subcutaneous -Post Debridement (cm) - Length 6.0 6.0 7.0 -Post Debridement (cm) - Width 15.0 13.0 12.0 -Post Debridement (cm) - Depth 0.1 0.1 0.1 -Total Square (Post) (cm) 90.00 78.00 84.00 -Area of Debridement (cm) - Length 6.0 6.0 7.0 -Area of Debridement (cm) - Width 1.5 13.0 12.0 -Total Square (Area) (cm) 9.00 78.00 84.00 -Tunneling No No No -Undermining/Tunneling No No No -Circular Undermining No No No -Wound/Ulcer Outcome Not Healed Not Healed Not Healed -Ulcer Cleansing Wound Cleanser Rinsed/ Rinsed/ Irrigated with Irrigated with Saline Saline -Foul Odor after Cleansing No No No -Bioengineered Tissue No No No -Bleeding Controlled with Pressure Pressure Pressure -Treatment Response Procedure Procedure Procedure Tolerated Well Tolerated Well Tolerated Well -Debridement - Subq, 1st 20sq cm No No No 13-right medial ankle -Time 10:37 11:04 10:41 -Correct Patient Yes Yes Yes -Correct Side, Site, Position Yes Yes Yes -Correct Procedure Yes Yes Yes -Procedure Performed Yes Yes Yes -Type of Procedure Debridement Debridement Debridement -Clinical Debridement Subcutaneous Subcutaneous Subcutaneous -Tissue Removed Subcutaneous Subcutaneous Subcutaneous -Post Debridement (cm) - Length 7.0 5.0 5.0 -Post Debridement (cm) - Width 7.0 8.0 6.5 -Post Debridement (cm) - Depth 0.1 0.1 0.1 -Total Square (Post) (cm) 49.00 40.00 32.50 -Area of Debridement (cm) - Length 7.0 5.0 5.0 -Area of Debridement (cm) - Width 7.0 8.0 6.5 -Total Square (Area) (cm) 49.00 40.00 32.50 -Tunneling No No No -Undermining/Tunneling No No No -Circular Undermining No No No -Wound/Ulcer Outcome Not Healed Not Healed Not Healed -Ulcer Cleansing Rinsed/ Wound Cleanser Rinsed/ Irrigated with Irrigated with Saline Saline -Foul Odor after Cleansing No No No -Bioengineered Tissue No No No -Bleeding Controlled with Pressure Pressure -Treatment Response Procedure Procedure Tolerated Well Tolerated Well -Debridement - Subq, 1st 20sq cm Yes Yes Yes -Debridement, SubQ, ea addt'l 20sq cm 6 5 5 or part thereof Pain Scale: 0-10 Numeric Is Patient Pain Free? Yes Yes Yes WC - Nurse 3 - General Ulcer D/C NN Start: 07/06/23 10:00 Freq: Status: Active Protocol: Activity Type Activity Date Activity User E-sign Co-sign Detail Recorded Client Recorded Date Recorded By Document 07/06/23 10:58 Laptop 07/06/23 11:00 Document 07/13/23 11:33 [facility] Desktop 07/13/23 11:34 [facility] 07/06/23 07/13/23 10:58 11:33 Wound Care Center Nurse 3 #12- R SINCLAIR CLUSTER -Ulcer Cleansing Rinsed/ Irrigated with Saline -Foul Odor after Cleansing No -Other Dressing abd pad -Primary Dressing Covered/Secured with Dry Gauze & Roll Gauze #14- R LAT ANKLE -Ulcer Cleansing Rinsed/ Rinsed/ Irrigated with Irrigated with Saline Saline -Foul Odor after Cleansing No No -Primary Dressing Applied Aquacel Extra, Aquacel Extra Optilok 6.5x10 -Other Dressing ABD -Primary Dressing Covered/Secured with Dry Gauze & Dry Gauze & Roll Gauze Roll Gauze, Secured with Tape -Aquacel Extra 1 1 -Optilok 6.5x10 1 13-right medial ankle -Ulcer Cleansing Rinsed/ Rinsed/ Irrigated with Irrigated with Saline Saline -Foul Odor after Cleansing No No -Primary Dressing Applied Aquacel Extra, Aquacel Extra Optilok 6.5x10 -Other Dressing ABD -Primary Dressing Covered/Secured with Dry Gauze & Roll Gauze, Secured with Tape -Aquacel Extra 0 0 -Optilok 6.5x10 1 Right -Compression Wrap Hiro Wrap -Tubular Bandage Double Layer -Size of Tubigrip Used Size E -Size E ($) 2 Left -Compression Wrap Hiro Wrap -Tubular Bandage Double Layer -Size of Tubigrip Used Size D -Size D ($) 2 Treatment Response Procedure Tolerated Well Pain Scale: 0-10 Numeric Is Patient Pain Free? Yes Yes WC - Visit Discharge Discharge Condition Stable Stable Ambulatory Status Wheelchair Wheelchair Transportation Private Auto ECF Accompanied by caregiver Medication Reconcilliation completed & Yes provided to patient/care provider Clinical Summary of Care Provided Yes Facility Type Billing Typist Care Facility Additional Wound Wound debrided: Right lateral ankle/foot Type of Debridement: Excisional debridement Anesthesia Used: 4% Lidocaine Solution Depth: Down to and including healthy tissue and in the subcutaneous layer Percentage of wound debrided: 100 Instrument Used: 5mm curette Tissue Removed: Slough and devitalized tissue Severity: Fat Layer Exposed Amount of bleeding with debridement: Mild Bleeding Controlled with: Pressure Patient tolerated procedure: Patient tolerated procedure well Assessment/Plan Assessment/Plan (1) Ulcer of right lower extremity with fat layer exposed: CODE(S): L97.912 - Non-pressure chronic ulcer of unspecified part of right lower leg with fat layer exposed (2) Ulcer of left lower extremity with fat layer exposed: CODE(S): L97.922 - Non-pressure chronic 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 Continues to show good improvement. No new concerns at this time. Continue Aquacel extra to all open areas, cover with superabsorbent dressing. Change 2x daily and prn. Double layer Tubigrip for edema management. Adaptic over right sinclair. Continue use of lymphedema pump twice daily. Continue other chronic wound care. His questions were answered and he was advised to call with any further questions or concerns. Follow-up in 2 weeks or sooner if needed. This note was generated with [employer] software. It may contain incorrect words, spelling, and punctuation that were not noted in checking the note before signing.
== END 2023-07-27 23:59 | disposition home or self-care (01) ==
LOC: WC 10:15
PROVIDERS: PCP Family Medicine; Referring Provider Internal Medicine; Visit Provider Internal Medicine
DX: I87.2 Venous insufficiency (chronic) (peripheral) (principal); L97.512 Non-pressure chronic ulcer of other part of right foot with fat layer exposed; L97.312 Non-pressure chronic ulcer of right ankle with fat layer exposed; L97.812 Non-pressure chronic ulcer of other part of right lower leg with fat layer exposed; R60.0 Localized edema; I89.0 Lymphedema, not elsewhere classified
CPT/HCPCS: 11042; 11045

== ENCOUNTER 2023-08-24 10:00 | Outpatient (RCR) | payer MEDICARE, MEDICAID, SELFPAY ==
[2023-07-28 00:09] VITALS: BP 133/74; PULSE 69; RESP 16; TEMP 36.1; O2SAT 97
[2023-08-10 10:03] VITALS: BP 136/64; PULSE 74; RESP 16; TEMP 36.6
--- NOTE | 2023-08-10 10:37 | PCM.WC.PN ---
History of Present Illness Date of Service: 08/10/23 Chief Complaint: Bilateral lower extremity ulcers History of Wound: Mr. Boles is an 83-year-old currently residing at [facility] who presents due to nonhealing bilateral lower extremity ulceration. He was seen here a few months ago and discharged after he achieved healing. Recommendation was for continued use of his lymphedema pump however he states that this has not been used consistently. Current ulceration has been present for weeks. No chills, fever or otherwise feeling of unwell. Progress of Wound: Worsening bilateral lower extremity edema. Now back at his assisted living. He denies any acute concerns. Objective Data Objective Data Vital Signs: Vital Signs Temp Pulse Resp BP Pulse Ox O2 Del Method 98 F 74 16 136/64 H 97 Room Air 08/10/23 10:03 08/10/23 10:03 08/10/23 10:03 08/10/23 10:03 07/28/23 00:09 08/10/23 10:03 Oxygen Delivery Method Room Air Charges/Coding Procedures Integumentary 111xxx-113xx: 39197 Jaye subq tissue 20 sq cm/< Add On Codes: 36347 Jaye subq tissue add-on (x4. Additional square centimeter debrided, please refer to clinical note.) Physical Exam Const alert, oriented x3 and no apparent distress General Appearance: cooperative, comfortable and well kempt HEENT normocephalic and head/scalp atraumatic Eyes EOMs intact bilaterally General Eye: normal appearance of both eyes Neck full ROM General: normal visual inspection Resp normal respiratory effort Effort and Inspection: able to speak in complete sentences Extremity General Extremity: edema Skin Wounds: wounds noted Neuro oriented x3, CN's II-XII intact bilaterally, moves all extremities and no focal motor deficits Psych mental status grossly normal, thought process normal, cooperative and affect normal Debridement Note Debridement Note Wound debrided: Right medial ankle/foot Type of Debridement: Excisional debridement Anesthesia Used: 4% Lidocaine Solution Depth: Down to and including healthy tissue and in the subcutaneous layer Percentage of wound debrided: 100 Instrument Used: 5mm curette Tissue Removed: Slough and devitalized tissue Severity: Fat Layer Exposed Amount of bleeding with debridement: Mild Bleeding Controlled with: Pressure Patient tolerated procedure: Patient tolerated procedure well Post-Debridement Measurements and Additional Note: Post-Debridement Measurements/Treatment WC - Nurse 1 - General Ulcer Assessment Start: 08/10/23 10:03 Freq: Status: Active Protocol: LINDA Activity Type Activity Date Activity User E-sign Co-sign Detail Recorded Client Recorded Date Recorded By Document 08/10/23 10:03 DL Desktop 08/10/23 10:07 DL 08/10/23 10:03 - Today's Visit Information Type of service Follow-up Visit (Physician/LEAD DATA ENTRY OPERATOR ) Arrival Mode Wheelchair Transfer Assistance None Patient Identification Verified (Name & Yes ) Patient Requires Transmission-Based No Precautions Vital Signs Temperature (97.8 F-99.1 F) 98 F Temperature Source Temporal Pulse Rate (60-100) 74 Pulse Location Monitor Respiratory Rate (12-18) 16 Respiratory rate source Observation Oxygen Delivery Method Room Air Blood Pressure (90/60-120/80) 136/64 H Blood Pressure Mean (mm Hg) 88 Source Monitor Position Sitting Blood Pressure Location Left Forearm History Since Last Visit- (Skip if this is Patient's initial visit) Have you changed medications since your No last visit? Any new allergies or adverse reactions No Had a fall/change in ADL's that may No increase risk of falls Signs or symptoms of abuse and/or No neglect since last visit Have you been in the hospital since your No last visit? Has dressing in place as prescribed Yes Has compression in place as prescribed No Has offloadiing in place as prescribed N/A Experienced any changes in pain level or No management Left Footwear Custom Shoe Right Footwear Custom Shoe Pain Scale: 0-10 Numeric Is Patient Pain Free? Yes - Nurse 1 - General Ulcer Measurement Start: 08/10/23 10:03 Freq: Status: Active Protocol: Activity Type Activity Date Activity User E-sign Co-sign Detail Recorded Client Recorded Date Recorded By Document 08/10/23 10:03 DL Desktop 08/10/23 10:07 DL 08/10/23 10:03 Wound Center Nurse 1 #14- R LAT ANKLE -Combined with other wound No -Current Size (cm) - Length 6.6 -Current Size (cm) - Width 10.5 -Current Size (cm) - Depth 0.1 -Total Square Cm 69.30 -Epithelialization Medium 34-66% -Tunneling No -Undermining/Tunneling No -Circular Undermining No -Exudate Amt Medium -Exudate Type Serous -Wound Margin Distinct, Outline Attached -Granulation Amt Large (67-100%) -Granulation Quality Pale,[place] -Slough/Fibrin Yes -Necrosis Amt Small (1-33%) -Necrotic Tissue Type Adherent Slough -Texture ([place]-wound Skin Appearance) Assessed, Scarring -Moisture ([place]-wound Skin Appearance) Assessed, Weeping,Dry/ Scaly -Color ([place]-wound Skin Appearance) Assessed -Temperature ([place]-wound Skin No Abnormality Appearance) (Pt Warm) -Tenderness on Palpation ([place]-wound No Skin Appearance) -Ulcer Cleansing Soap and Water -Foul Odor after Cleansing No -Anesthetic Used 4% Lidocaine Solution 13-right medial ankle -Combined with other wound No -Current Size (cm) - Length 3.8 -Current Size (cm) - Width 4 -Current Size (cm) - Depth 0.1 -Total Square Cm 15.2 -Photo Taken No -Epithelialization Small 1-33% -Tunneling No -Undermining/Tunneling No -Circular Undermining No -Exudate Amt Medium -Exudate Type Serosanguineous -Wound Margin Flat & Intact -Granulation Amt Medium (34-66%) -Granulation Quality Pale,[place] -Slough/Fibrin Yes -Necrosis Amt Medium (34-66%) -Necrotic Tissue Type Adherent Slough -Texture ([place]-wound Skin Appearance) Assessed, Scarring -Moisture ([place]-wound Skin Appearance) Assessed,Dry/ Scaly -Color ([place]-wound Skin Appearance) Assessed -Temperature ([place]wound Skin No Abnormality Appearance) (Pt Warm) -Tenderness on Palpation ([place]-wound No Skin Appearance) -Ulcer Cleansing Soap and Water -Foul Odor after Cleansing No -Anesthetic Used 4% Lidocaine Solution Lower Limb Edema Present Yes Right Calf (cm) 50 Right Ankle (cm) 31.5 Left Calf (cm) 42.2 Left Ankle (cm) 28.5 WC - Nurse 2 - General Ulcer CM Notes Start: 08/10/23 10:03 Freq: Status: Active Protocol: Activity Type Activity Date Activity User E-sign Co-sign Detail Recorded Client Recorded Date Recorded By Document 08/10/23 10:13 Laptop 08/10/23 10:20 08/10/23 10:13 Wound Center Nurse 2 #14- R LAT ANKLE -Time 10:14 -Correct Patient Yes -Correct Side, Site, Position Yes -Correct Procedure Yes -Procedure Performed Yes -Type of Procedure Debridement -Clinical Debridement Subcutaneous -Tissue Removed Subcutaneous -Post Debridement (cm) - Length 4.5 -Post Debridement (cm) - Width 13.0 -Post Debridement (cm) - Depth 0.1 -Total Square (Post) (cm) 58.50 -Area of Debridement (cm) - Length 4.5 -Area of Debridement (cm) - Width 13.0 -Total Square (Area) (cm) 58.50 -Tunneling No -Undermining/Tunneling No -Circular Undermining No -Wound/Ulcer Outcome Not Healed -Ulcer Cleansing Rinsed/ Irrigated with Saline -Foul Odor after Cleansing No -Bioengineered Tissue No -Bleeding Controlled with Pressure -Treatment Response Procedure Tolerated Well -Offloading No -Debridement - Subq, 1st 20sq cm No 13-right medial ankle -Time 10:15 -Correct Patient Yes -Correct Side, Site, Position Yes -Correct Procedure Yes -Procedure Performed Yes -Type of Procedure Debridement -Clinical Debridement Subcutaneous -Tissue Removed Subcutaneous -Post Debridement (cm) - Length 4.6 -Post Debridement (cm) - Width 6.0 -Post Debridement (cm) - Depth 0.1 -Total Square (Post) (cm) 27.60 -Area of Debridement (cm) - Length 4.6 -Area of Debridement (cm) - Width 6.0 -Total Square (Area) (cm) 27.60 -Tunneling No -Undermining/Tunneling No -Circular Undermining No -Wound/Ulcer Outcome Not Healed -Ulcer Cleansing Rinsed/ Irrigated with Saline -Foul Odor after Cleansing No -Bioengineered Tissue No -Bleeding Controlled with Pressure -Treatment Response Procedure Tolerated Well -Offloading No -Debridement - Subq, 1st 20sq cm Yes -Debridement, SubQ, ea addt'l 20sq cm 4 or part thereof Pain Scale: 0-10 Numeric Is Patient Pain Free? Yes Additional Wound Wound debrided: Right lateral ankle/foot Type of Debridement: Excisional debridement Anesthesia Used: 4% Lidocaine Solution Depth: Down to and including healthy tissue and in the subcutaneous layer Percentage of wound debrided: 100 Instrument Used: 5mm curette Tissue Removed: Slough and devitalized tissue Severity: Fat Layer Exposed Amount of bleeding with debridement: Mild Bleeding Controlled with: Pressure Patient tolerated procedure: Patient tolerated procedure well Assessment/Plan Assessment/Plan (1) Ulcer of right lower extremity with fat layer exposed: CODE(S): L97.912 - Non-pressure chronic ulcer of unspecified part of right lower leg with fat layer exposed (2) Ulcer of left lower extremity with fat layer exposed: CODE(S): L97.922 - Non-pressure chronic 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 Had shown good improvement over the past weeks however, now back at his assisted living and has worsening bilateral lower extremity edema. Ulcer with minimal change. Very lengthy discussion had with patient, he was advised that he needs to sleep in his bed and not in the chair which he does at the assisted living. Leg elevation and exercise also very strongly recommended to avoid worsening edema. Has lymphedema pumps, does not appear he is using it as recommended. For now, continue Aquacel extra to all open areas, cover with superabsorbent dressing. Change 2x daily and prn. Double layer Tubigrip for edema management. Adaptic over right sinclair. Continue use of lymphedema pump twice daily. Continue other chronic wound care. His questions were answered and he was advised to call with any further questions or concerns. Follow-up in 2 weeks or sooner if needed. This note was generated with [employer] dictation software. It may contain incorrect words, spelling, and punctuation that were not noted in checking the note before signing.
[2023-08-24 09:54] VITALS: BP 114/44; PULSE 71; TEMP 36.3
--- NOTE | 2023-08-24 10:35 | PN.PCM_ITS ---
History of Present Illness Date of Service: 08/24/23 Chief Complaint: Bilateral lower extremity ulcers History of Wound: Mr. Boles is an 83-year-old currently residing at [facility] who presents due to nonhealing bilateral lower extremity ulceration. He was seen here a few months ago and discharged after he achieved healing. Recommendation was for continued use of his lymphedema pump however he states that this has not been used consistently. Current ulceration has been present for weeks. No chills, fever or otherwise feeling of unwell. Progress of Wound: No new concerns at this time. Still significant bilateral lower extremity edema however, ulcers with some improvement. Objective Data Objective Data Vital Signs: Vital Signs Temp Pulse Resp BP Pulse Ox O2 Del Method 97.4 F L 71 16 114/44 L 97 Room Air 08/24/23 09:54 08/24/23 09:54 08/10/23 10:03 08/24/23 09:54 07/28/23 00:09 08/10/23 10:03 Oxygen Delivery Method Room Air Charges/Coding Procedures Integumentary 111xxx-113xx: 32506 Jaye subq tissue 20 sq cm/< Add On Codes: 04908 Jaye subq tissue add-on (x2. Additional square centimeter debrided, please refer to clinical note.) Debridement Note Debridement Note Wound debrided: Right medial ankle/foot Type of Debridement: Excisional debridement Anesthesia Used: 4% Lidocaine Solution Depth: Down to and including healthy tissue and in the subcutaneous layer Percentage of wound debrided: 100 Instrument Used: 5mm curette Tissue Removed: Slough and devitalized tissue Severity: Fat Layer Exposed Amount of bleeding with debridement: Mild Bleeding Controlled with: Pressure Patient tolerated procedure: Patient tolerated procedure well Post-Debridement Measurements and Additional Note: Post-Debridement Measurements/Treatment - Nurse 1 - General Ulcer Assessment Start: 08/10/23 10:03 Freq: Status: Active Protocol: LINDA Activity Type Activity Date Activity User E-sign Co-sign Detail Recorded Client Recorded Date Recorded By Document 08/10/23 10:03 DL Desktop 08/10/23 10:07 DL Document 08/24/23 09:54 DL Desktop 08/24/23 10:03 DL 08/10/23 08/24/23 10:03 09:54 - Today's Visit Information Type of service Follow-up Visit Follow-up Visit (Physician/TRAY DRIER OPERATOR (Physician/TRAY DRIER OPERATOR ) ) Arrival Mode Wheelchair Wheelchair Transfer Assistance None Manual Transfer Assist (Other) x2 Patient Identification Verified (Name & Yes Yes ) Patient Requires Transmission-Based No No Precautions Vital Signs Temperature (97.8 F-99.1 F) 98 F 97.4 F L Temperature Source Temporal Temporal Pulse Rate (60-100) 74 71 Pulse Location Monitor Monitor Respiratory Rate (12-18) 16 Respiratory rate source Observation Observation Oxygen Delivery Method Room Air Blood Pressure (90/60-120/80) 136/64 H 114/44 L Blood Pressure Mean (mm Hg) 88 67 Source Monitor Monitor Position Sitting Blood Pressure Location Left Forearm History Since Last Visit- (Skip if this is Patient's initial visit) Have you changed medications since your No No last visit? Any new allergies or adverse reactions No No Had a fall/change in ADL's that may No No increase risk of falls Signs or symptoms of abuse and/or No No neglect since last visit Have you been in the hospital since your No No last visit? Has dressing in place as prescribed Yes Yes Has compression in place as prescribed No Yes Has offloadiing in place as prescribed N/A N/A Experienced any changes in pain level or No No management Left Footwear Custom Shoe Slipper Right Footwear Custom Shoe Regular Shoe Pain Scale: 0-10 Numeric Is Patient Pain Free? Yes Yes WC - Nurse 1 - General Ulcer Measurement Start: 08/10/23 10:03 Freq: Status: Active Protocol: Activity Type Activity Date Activity User E-sign Co-sign Detail Recorded Client Recorded Date Recorded By Document 08/10/23 10:03 DL Desktop 08/10/23 10:07 DL Document 08/24/23 09:54 DL Desktop 08/24/23 10:03 DL 08/10/23 08/24/23 10:03 09:54 Wound Center Nurse 1 #14- R LAT ANKLE -Combined with other wound No -Current Size (cm) - Length 6.6 3 -Current Size (cm) - Width 10.5 11 -Current Size (cm) - Depth 0.1 0.1 -Total Square Cm 69.30 33 -Epithelialization Medium 34-66% -Tunneling No -Undermining/Tunneling No -Circular Undermining No -Exudate Amt Medium Medium -Exudate Type Serous Serosanguineous -Wound Margin Distinct, Indistinct, Non Outline -Visible Attached -Granulation Amt Large (67-100%) Large (67-100%) -Granulation Quality Pale,[place] -Slough/Fibrin Yes -Necrosis Amt Small (1-33%) Small (1-33%) -Necrotic Tissue Type Adherent Slough Adherent Slough -Structure Exposed N/A -Texture ([place]-wound Skin Appearance) Assessed, Localized Edema Scarring ,Scarring -Moisture ([place]-wound Skin Appearance) Assessed, Dry/Scaly Weeping,Dry/ Scaly -Color ([place]-wound Skin Appearance) Assessed Hemosiderin Staining -Temperature ([place]-wound Skin No Abnormality No Abnormality Appearance) (Pt Warm) (Pt Warm) -Tenderness on Palpation ([place]-wound No No Skin Appearance) -Ulcer Cleansing Soap and Water Soap and Water -Foul Odor after Cleansing No No -Anesthetic Used 4% Lidocaine 5% Lidocaine Solution Gel 13-right medial ankle -Combined with other wound No -Current Size (cm) - Length 3.8 3.3 -Current Size (cm) - Width 4 3.4 -Current Size (cm) - Depth 0.1 0.1 -Total Square Cm 15.2 11.22 -Photo Taken No -Epithelialization Small 1-33% -Tunneling No -Undermining/Tunneling No -Circular Undermining No -Exudate Amt Medium Medium -Exudate Type Serosanguineous Serosanguineous -Wound Margin Flat & Intact Indistinct, Non -Visible -Granulation Amt Medium (34-66%) Large (67-100%) -Granulation Quality Pale,[place] -Slough/Fibrin Yes -Necrosis Amt Medium (34-66%) Small (1-33%) -Necrotic Tissue Type Adherent Slough Adherent Slough -Structure Exposed N/A -Texture ([place]-wound Skin Appearance) Assessed, Scarring Scarring -Moisture ([place]-wound Skin Appearance) Assessed,Dry/ Dry/Scaly Scaly -Color ([place]-wound Skin Appearance) Assessed Hemosiderin Staining -Temperature ([place]-wound Skin No Abnormality No Abnormality Appearance) (Pt Warm) (Pt Warm) -Tenderness on Palpation ([place]-wound No Skin Appearance) -Ulcer Cleansing Soap and Water Soap and Water -Foul Odor after Cleansing No No -Anesthetic Used 4% Lidocaine 5% Lidocaine Solution Gel Lower Limb Edema Present Yes Right Calf (cm) 50 50 Right Ankle (cm) 31.5 32.5 Left Calf (cm) 42.2 Left Ankle (cm) 28.5 - Nurse 2 - General Ulcer CM Notes Start: 08/10/23 10:03 Freq: Status: Active Protocol: Activity Type Activity Date Activity User E-sign Co-sign Detail Recorded Client Recorded Date Recorded By Document 08/10/23 10:13 Laptop 08/10/23 10:20 Document 08/24/23 10:15 Desktop 08/24/23 10:19 08/10/23 08/24/23 10:13 10:15 Wound Center Nurse 2 #14- R LAT ANKLE -Time 10:14 10:15 -Correct Patient Yes Yes -Correct Side, Site, Position Yes Yes -Correct Procedure Yes Yes -Procedure Performed Yes Yes -Type of Procedure Debridement Debridement -Clinical Debridement Subcutaneous Subcutaneous -Tissue Removed Subcutaneous Subcutaneous -Post Debridement (cm) - Length 4.5 3.0 -Post Debridement (cm) - Width 13.0 11.5 -Post Debridement (cm) - Depth 0.1 0.1 -Total Square (Post) (cm) 58.50 34.50 -Area of Debridement (cm) - Length 4.5 3.0 -Area of Debridement (cm) - Width 13.0 11.5 -Total Square (Area) (cm) 58.50 34.50 -Tunneling No No -Undermining/Tunneling No No -Circular Undermining No No -Wound/Ulcer Outcome Not Healed Not Healed -Ulcer Cleansing Rinsed/ Irrigated with Saline -Foul Odor after Cleansing No -Bioengineered Tissue No -Bleeding Controlled with Pressure -Treatment Response Procedure Tolerated Well -Offloading No -Debridement - Subq, 1st 20sq cm No No 13-right medial ankle -Time 10:15 10:15 -Correct Patient Yes Yes -Correct Side, Site, Position Yes Yes -Correct Procedure Yes Yes -Procedure Performed Yes Yes -Type of Procedure Debridement Debridement -Clinical Debridement Subcutaneous Subcutaneous -Tissue Removed Subcutaneous Subcutaneous -Post Debridement (cm) - Length 4.6 3.8 -Post Debridement (cm) - Width 6.0 3.5 -Post Debridement (cm) - Depth 0.1 0.1 -Total Square (Post) (cm) 27.60 13.30 -Area of Debridement (cm) - Length 4.6 3.5 -Area of Debridement (cm) - Width 6.0 3.5 -Total Square (Area) (cm) 27.60 12.25 -Tunneling No No -Undermining/Tunneling No No -Circular Undermining No No -Wound/Ulcer Outcome Not Healed Not Healed -Ulcer Cleansing Rinsed/ Rinsed/ Irrigated with Irrigated with Saline Saline -Foul Odor after Cleansing No No -Bioengineered Tissue No No -Bleeding Controlled with Pressure Pressure -Treatment Response Procedure Procedure Tolerated Well Tolerated Well -Offloading No -Debridement - Subq, 1st 20sq cm Yes Yes -Debridement, SubQ, ea addt'l 20sq cm 4 2 or part thereof Pain Scale: 0-10 Numeric Is Patient Pain Free? Yes Yes - Nurse 3 - General Ulcer D/C NN Start: 08/10/23 10:03 Freq: Status: Active Protocol: Activity Type Activity Date Activity User E-sign Co-sign Detail Recorded Client Recorded Date Recorded By Document 08/10/23 10:38 Laptop 08/10/23 10:39 08/10/23 10:38 Wound Care Center Nurse 3 #14- R LAT ANKLE -Ulcer Cleansing Rinsed/ Irrigated with Saline -Foul Odor after Cleansing No -Primary Dressing Applied Aquacel Extra, Optilok 6.5x10 -Primary Dressing Covered/Secured with Dry Gauze & Roll Gauze -Aquacel Extra 1 -Optilok 6.5x10 1 13-right medial ankle -Ulcer Cleansing Rinsed/ Irrigated with Saline -Foul Odor after Cleansing No -Primary Dressing Applied Aquacel Extra, Optilok 6.5x10 -Aquacel Extra 0 -Optilok 6.5x10 1 Right -Tubular Bandage Double Layer -Size of Tubigrip Used Size E -Size E ($) 2 Left -Tubular Bandage Double Layer -Size of Tubigrip Used Size D -Size D ($) 2 Pain Scale: 0-10 Numeric Is Patient Pain Free? Yes - Visit Discharge Discharge Condition Stable Ambulatory Status Wheelchair Transportation Private Auto Medication Reconcilliation completed & Yes provided to patient/care provider Clinical Summary of Care Provided Yes Additional Wound Wound debrided: Right lateral ankle/foot Type of Debridement: Excisional debridement Anesthesia Used: 4% Lidocaine Solution Depth: Down to and including healthy tissue and in the subcutaneous layer Percentage of wound debrided: 100 Instrument Used: 5mm curette Tissue Removed: Slough and devitalized tissue Severity: Fat Layer Exposed Amount of bleeding with debridement: Mild Bleeding Controlled with: Pressure Patient tolerated procedure: Patient tolerated procedure well Assessment/Plan Assessment/Plan (1) Ulcer of right lower extremity with fat layer exposed: CODE(S): L97.912 - Non-pressure chronic ulcer of unspecified part of right lower leg with fat layer exposed (2) Ulcer of left lower extremity with fat layer exposed: CODE(S): L97.922 - Non-pressure chronic 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 No new concerns at this time. Still has significant bilateral lower extremity edema but ulcers with some improvement. Continue Aquacel extra to all open areas, cover with superabsorbent dressing. Change 2x daily and prn. Double layer Tubigrip for edema management. Adaptic over right sinclair. Continue use of lymphedema pump twice daily. Leg elevation and compression also very strongly recommended, he voiced understanding. Continue other chronic wound care. His questions were answered and he was advised to call with any further questions or concerns. Follow-up in 1 week. This note was generated with [email or web address] dictation software. It may contain incorrect words, spelling, and punctuation that were not noted in checking the note before signing.
== END 2023-08-27 23:59 | disposition home or self-care (01) ==
LOC: WC 10:00
PROVIDERS: PCP Family Medicine; Referring Provider Internal Medicine; Visit Provider Internal Medicine
DX: L97.922 Non-pressure chronic ulcer of unspecified part of left lower leg with fat layer exposed (principal); L97.912 Non-pressure chronic ulcer of unspecified part of right lower leg with fat layer exposed; R60.0 Localized edema; I89.0 Lymphedema, not elsewhere classified; I87.2 Venous insufficiency (chronic) (peripheral)
CPT/HCPCS: 11042; 11045

== ENCOUNTER 2023-09-21 09:45 | Outpatient (RCR) | payer MEDICARE, MEDICAID, SELFPAY ==
[2023-08-28 00:33] VITALS: BP 114/44; PULSE 71; RESP 16; TEMP 36.3; O2SAT 97
[2023-08-31 09:53] VITALS: BP 121/68; PULSE 73; RESP 20; TEMP 36.7
--- NOTE | 2023-08-31 10:56 | PCM.WC.PN ---
History of Present Illness Date of Service: 08/31/23 Chief Complaint: Bilateral lower extremity ulcers History of Wound: Mr. Boles is an 83-year-old currently residing at [facility] who presents due to nonhealing bilateral lower extremity ulceration. He was seen here a few months ago and discharged after he achieved healing. Recommendation was for continued use of his lymphedema pump however he states that this has not been used consistently. Current ulceration has been present for weeks. No chills, fever or otherwise feeling of unwell. Progress of Wound: Still significant bilateral lower extremity swelling with reopening/new ulcerations. No chills, fever or feeling of unwell reported. Objective Data Objective Data Vital Signs: Vital Signs Temp Pulse Resp BP Pulse Ox 98.1 F 73 20 H 121/68 H 97 08/31/23 09:53 08/31/23 09:53 08/31/23 09:53 08/31/23 09:53 08/28/23 00:33 Charges/Coding Procedures Integumentary 111xxx-113xx: 09150 Jaye subq tissue 20 sq cm/< Add On Codes: 80118 Jaye subq tissue add-on (x 5. Additional square centimeter debrided, please refer to clinical note.) Physical Exam Const alert, oriented x3 and no apparent distress General Appearance: cooperative, comfortable and well kempt HEENT normocephalic and head/scalp atraumatic Eyes EOMs intact bilaterally General Eye: normal appearance of both eyes Neck full ROM General: normal visual inspection Resp normal respiratory effort Effort and Inspection: able to speak in complete sentences Extremity General Extremity: edema Skin Wounds: wounds noted Neuro oriented x3, CN's II-XII intact bilaterally, moves all extremities and no focal motor deficits Psych mental status grossly normal, thought process normal, cooperative and affect normal Debridement Note Debridement Note Wound debrided: Right medial ankle/foot Type of Debridement: Excisional debridement Anesthesia Used: 4% Lidocaine Solution Depth: Down to and including healthy tissue and in the subcutaneous layer Percentage of wound debrided: 100 Instrument Used: 5mm curette Tissue Removed: Slough and devitalized tissue Severity: Fat Layer Exposed Amount of bleeding with debridement: Mild Bleeding Controlled with: Pressure Patient tolerated procedure: Patient tolerated procedure well Post-Debridement Measurements and Additional Note: Post-Debridement Measurements/Treatment WC - Nurse 1 - General Ulcer Assessment Start: 08/31/23 09:50 Freq: Status: Active Protocol: LINDA Activity Type Activity Date Activity User E-sign Co-sign Detail Recorded Client Recorded Date Recorded By Document 08/31/23 09:53 Desktop 08/31/23 10:04 DL 08/31/23 09:53 - Today's Visit Information Type of service Follow-up Visit (Physician/[employer] ) Arrival Mode Ambulatory Transfer Assistance None Patient Identification Verified (Name & Yes ) Patient Requires Transmission-Based No Precautions Vital Signs Temperature (97.8 F-99.1 F) 98.1 F Temperature Source Temporal Pulse Rate (60-100) 73 Pulse Location Monitor Respiratory Rate (12-18) 20 H Respiratory rate source Observation Blood Pressure (90/60-120/80) 121/68 H Blood Pressure Mean (mm Hg) 85 Source Monitor History Since Last Visit- (Skip if this is Patient's initial visit) Have you changed medications since your No last visit? Any new allergies or adverse reactions No Had a fall/change in ADL's that may No increase risk of falls Signs or symptoms of abuse and/or No neglect since last visit Have you been in the hospital since your No last visit? Has dressing in place as prescribed Yes Has compression in place as prescribed Yes Has offloadiing in place as prescribed N/A Experienced any changes in pain level or No management Left Footwear Custom Shoe Right Footwear Custom Shoe Pain Scale: 0-10 Numeric Is Patient Pain Free? Yes - Nurse 1 - General Ulcer Measurement Start: 08/31/23 09:50 Freq: Status: Active Protocol: Activity Type Activity Date Activity User E-sign Co-sign Detail Recorded Client Recorded Date Recorded By Document 08/31/23 09:53 Desktop 08/31/23 10:04 DL 08/31/23 09:53 Wound Center Nurse 1 #15- L MED LE CLUSTER -Combined with other wound No -Current Size (cm) - Length 0.7 -Current Size (cm) - Width 4.7 -Current Size (cm) - Depth 0.1 -Total Square Cm 3.29 -Date of Last Picture (Recall this 08/31/23 field) -Photo Taken Yes -Epithelialization None Present -Tunneling No -Undermining/Tunneling No -Circular Undermining No -Exudate Amt Medium -Exudate Type Serosanguineous -Wound Margin Distinct, Outline Attached -Granulation Amt Medium (34-66%) -Granulation Quality Red -Slough/Fibrin Yes -Necrosis Amt Medium (34-66%) -Necrotic Tissue Type Adherent Slough -Texture ([place]-wound Skin Appearance) Assessed, Scarring -Moisture ([place]-wound Skin Appearance) Assessed -Color ([place]-wound Skin Appearance) Assessed -Temperature ([place]-wound Skin No Abnormality Appearance) (Pt Warm) -Tenderness on Palpation ([place]-wound No Skin Appearance) -Ulcer Cleansing Soap and Water -Foul Odor after Cleansing No -Anesthetic Used 4% Lidocaine Solution #14- R LAT ANKLE -Combined with other wound No -Current Size (cm) - Length 2.5 -Current Size (cm) - Width 7 -Current Size (cm) - Depth 0.1 -Total Square Cm 17.5 -Date of Last Picture (Recall this 08/31/23 field) -Photo Taken Yes -Epithelialization Medium 34-66% -Tunneling No -Undermining/Tunneling No -Circular Undermining No -Exudate Amt Medium -Exudate Type Serous -Wound Margin Flat & Intact -Granulation Amt Large (67-100%) -Granulation Quality [place] -Slough/Fibrin Yes -Necrosis Amt Small (1-33%) -Necrotic Tissue Type Adherent Slough -Texture ([place]-wound Skin Appearance) Assessed, Scarring -Moisture ([place]-wound Skin Appearance) Assessed -Color ([place]-wound Skin Appearance) Assessed -Temperature ([place]-wound Skin No Abnormality Appearance) (Pt Warm) -Tenderness on Palpation ([place]-wound No Skin Appearance) -Ulcer Cleansing Soap and Water -Foul Odor after Cleansing No -Anesthetic Used 4% Lidocaine Solution 13-right medial ankle -Combined with other wound No -Current Size (cm) - Length 2.8 -Current Size (cm) - Width 4 -Current Size (cm) - Depth 0.1 -Total Square Cm 11.2 -Date of Last Picture (Recall this 08/31/23 field) -Photo Taken Yes -Epithelialization Medium 34-66% -Tunneling No -Undermining/Tunneling No -Circular Undermining No -Exudate Amt Medium -Exudate Type Serosanguineous -Wound Margin Distinct, Outline Attached -Granulation Amt Large (67-100%) -Granulation Quality [place] -Slough/Fibrin Yes -Necrosis Amt Small (1-33%) -Necrotic Tissue Type Adherent Slough -Texture ([place]-wound Skin Appearance) Assessed, Scarring -Moisture ([place]-wound Skin Appearance) No Abnormality, Dry/Scaly -Color ([place]-wound Skin Appearance) Assessed -Temperature ([place]-wound Skin No Abnormality Appearance) (Pt Warm) -Tenderness on Palpation ([place]-wound No Skin Appearance) -Ulcer Cleansing Soap and Water -Foul Odor after Cleansing No -Anesthetic Used 4% Lidocaine Solution Lower Limb Edema Present Yes Right Calf (cm) 45 Right Ankle (cm) 34 Left Calf (cm) 40 Left Ankle (cm) 35 WC - Nurse 2 - General Ulcer CM Notes Start: 08/31/23 09:50 Freq: Status: Active Protocol: Activity Type Activity Date Activity User E-sign Co-sign Detail Recorded Client Recorded Date Recorded By Document 08/31/23 10:22 Desktop 08/31/23 10:37 GM 08/31/23 10:22 Wound Center Nurse 2 #16 Right Medial Superior -Time 10:33 -Correct Patient Yes -Correct Side, Site, Position Yes -Correct Procedure Yes -Procedure Performed Yes -Type of Procedure Debridement -Clinical Debridement Subcutaneous -Tissue Removed Subcutaneous -Post Debridement (cm) - Length 1 -Post Debridement (cm) - Width 2 -Post Debridement (cm) - Depth 0.1 -Total Square (Post) (cm) 2 -Area of Debridement (cm) - Length 1 -Area of Debridement (cm) - Width 2 -Total Square (Area) (cm) 2 -Tunneling No -Undermining/Tunneling No -Circular Undermining No -Wound/Ulcer Outcome Not Healed -Ulcer Cleansing Rinsed/ Irrigated with Saline -Foul Odor after Cleansing No -Bioengineered Tissue No -Bleeding Controlled with Pressure -Treatment Response Procedure Tolerated Well -Debridement - Subq, 1st 20sq cm Yes -Debridement, SubQ, ea addt'l 20sq cm 5 or part thereof #15- L MED LE CLUSTER -Time 10:22 -Correct Patient Yes -Correct Side, Site, Position Yes -Correct Procedure Yes -Procedure Performed Yes -Type of Procedure Debridement -Clinical Debridement Subcutaneous -Tissue Removed Subcutaneous -Post Debridement (cm) - Length 1 -Post Debridement (cm) - Width 4.5 -Post Debridement (cm) - Depth 0.1 -Total Square (Post) (cm) 4.5 -Area of Debridement (cm) - Length 1 -Area of Debridement (cm) - Width 4.5 -Total Square (Area) (cm) 4.5 -Tunneling No -Undermining/Tunneling No -Circular Undermining No -Wound/Ulcer Outcome Not Healed -Ulcer Cleansing Rinsed/ Irrigated with Saline -Foul Odor after Cleansing No -Bioengineered Tissue No -Bleeding Controlled with Pressure -Treatment Response Procedure Tolerated Well -Debridement - Subq, 1st 20sq cm No #14- R LAT ANKLE -Time 10:23 -Correct Patient Yes -Correct Side, Site, Position Yes -Correct Procedure Yes -Procedure Performed Yes -Type of Procedure Debridement -Clinical Debridement Subcutaneous -Tissue Removed Subcutaneous -Post Debridement (cm) - Length 8 -Post Debridement (cm) - Width 11 -Post Debridement (cm) - Depth 0.1 -Total Square (Post) (cm) 88 -Area of Debridement (cm) - Length 8 -Area of Debridement (cm) - Width 11 -Total Square (Area) (cm) 88 -Tunneling No -Undermining/Tunneling No -Circular Undermining No -Wound/Ulcer Outcome Not Healed -Ulcer Cleansing Rinsed/ Irrigated with Saline -Foul Odor after Cleansing No -Bioengineered Tissue No -Bleeding Controlled with Pressure -Treatment Response Procedure Tolerated Well -Debridement - Subq, 20sq cm No 13-right medial ankle -Time 10:23 -Correct Patient Yes -Correct Side, Site, Position Yes -Correct Procedure Yes -Procedure Performed Yes -Type of Procedure Debridement -Clinical Debridement Subcutaneous -Tissue Removed Subcutaneous -Post Debridement (cm) - Length 3.5 -Post Debridement (cm) - Width 4.0 -Post Debridement (cm) - Depth 0.1 -Total Square (Post) (cm) 14.00 -Area of Debridement (cm) - Length 3.5 -Area of Debridement (cm) - Width 4.0 -Total Square (Area) (cm) 14.00 -Tunneling No -Undermining/Tunneling No -Circular Undermining No -Wound/Ulcer Outcome Not Healed -Ulcer Cleansing Rinsed/ Irrigated with Saline -Foul Odor after Cleansing No -Bioengineered Tissue No -Bleeding Controlled with Pressure -Treatment Response Procedure Tolerated Well -Debridement - Subq, 1st 20sq cm No Pain Scale: 0-10 Numeric Is Patient Pain Free? Yes WC - Nurse 3 - General Ulcer D/C NN Start: 08/31/23 09:50 Freq: Status: Active Protocol: Activity Type Activity Date Activity User E-sign Co-sign Detail Recorded Client Recorded Date Recorded By Document 08/31/23 10:39 GM Desktop 08/31/23 10:41 GM 08/31/23 10:39 Wound Care Center Nurse 3 #16 Right Medial Superior -Ulcer Cleansing Not Cleansed -Foul Odor after Cleansing No -Primary Dressing Applied Aquacel Extra -Primary Dressing Covered/Secured with Dry Gauze,Dry Gauze & Roll Gauze -Aquacel Extra 1 #15- L MED LE CLUSTER -Ulcer Cleansing Not Cleansed -Foul Odor after Cleansing No -Negative Pressure Wound Therapy N/A -Primary Dressing Covered/Secured with Dry Gauze,Dry Gauze & Roll Gauze,Secured with Tape #14- R LAT ANKLE -Ulcer Cleansing Not Cleansed -Foul Odor after Cleansing No -Negative Pressure Wound Therapy N/A -Primary Dressing Covered/Secured with Dry Gauze & Roll Gauze, Secured with Tape 13-right medial ankle -Ulcer Cleansing Not Cleansed -Foul Odor after Cleansing No -Negative Pressure Wound Therapy N/A -Primary Dressing Covered/Secured with Dry Gauze & Roll Gauze, Secured with Tape Left -Lotion applied to leg before No compression wrap -Tubular Bandage Double Layer -Size of Tubigrip Used Size D -Size D ($) 2 Right -Tubular Bandage Double Layer -Size of Tubigrip Used Size E -Size E ($) 2 Pain Scale: 0-10 Numeric Is Patient Pain Free? Yes Teaching: Wound Center Control Swelling with Leg Elevation -Person Taught Patient -Teaching Method Discussion -Response to teaching Verbalize understanding, Reinforcement needed Dressing Your Wound -Person Taught Patient -Teaching Method Discussion -Response to teaching Verbalize understanding WC - Visit Discharge Discharge Condition Stable Ambulatory Status Wheelchair Transportation Private Auto Medication Reconcilliation completed & Yes provided to patient/care provider Clinical Summary of Care Provided Yes Additional Wound Wound debrided: Right lateral ankle/foot Type of Debridement: Excisional debridement Anesthesia Used: 4% Lidocaine Solution Depth: Down to and including healthy tissue and in the subcutaneous layer Percentage of wound debrided: 100 Instrument Used: 5mm curette Tissue Removed: Slough and devitalized tissue Severity: Fat Layer Exposed Amount of bleeding with debridement: Mild Bleeding Controlled with: Pressure Patient tolerated procedure: Patient tolerated procedure well Additional Wound Wound debrided: Right lower leg (medial) Type of Debridement: Excisional debridement Anesthesia Used: 4% Lidocaine Solution Depth: Down to and including healthy tissue and in the subcutaneous layer Percentage of wound debrided: 100 Instrument Used: 5mm curette Tissue Removed: Slough and devitalized tissue Severity: Fat Layer Exposed Amount of bleeding with debridement: Mild Bleeding Controlled with: Pressure Patient tolerated procedure: Patient tolerated procedure well Additional Wound Wound debrided: Left lower leg cluster (medial) Type of Debridement: Excisional debridement Anesthesia Used: 4% Lidocaine Solution Depth: Down to and including healthy tissue and in the subcutaneous layer Percentage of wound debrided: 100 Instrument Used: 5mm curette Severity: Fat Layer Exposed Amount of bleeding with debridement: Mild Bleeding Controlled with: Pressure Patient tolerated procedure: Patient tolerated procedure well Assessment/Plan Assessment/Plan (1) Ulcer of right lower extremity with fat layer exposed: CODE(S): L97.912 - Non-pressure chronic ulcer of unspecified part of right lower leg with fat layer exposed (2) Ulcer of left lower extremity with fat layer exposed: CODE(S): L97.922 - Non-pressure chronic 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 Still has significant bilateral lower extremity edema and now has a reopening of previously healed ulcers. He states that he will do better with his elevation and exercise. Continue Aquacel extra to all open areas, cover with superabsorbent dressing. Change 2x daily and prn. Double layer Tubigrip for edema management. Adaptic over right sinclair. Continue use of lymphedema pump twice daily. Leg elevation and compression also very strongly recommended, he voiced understanding. Continue other chronic wound care. His questions were answered and he was advised to call with any further questions or concerns. Follow-up in 1 week. This note was generated with [employer] software. It may contain incorrect words, spelling, and punctuation that were not noted in checking the note before signing.
[2023-09-07 09:48] VITALS: BP 118/63; PULSE 69; RESP 16
--- NOTE | 2023-09-07 10:26 | PCM.WC.PN ---
History of Present Illness Date of Service: 09/07/23 Chief Complaint: Bilateral lower extremity ulcers History of Wound: Mr. Boles is an 83-year-old currently residing at [facility] who presents due to nonhealing bilateral lower extremity ulceration. He was seen here a few months ago and discharged after he achieved healing. Recommendation was for continued use of his lymphedema pump however he states that this has not been used consistently. Current ulceration has been present for weeks. No chills, fever or otherwise feeling of unwell. Progress of Wound: No new concerns at this time. Some improvement in lower extremity swelling. Objective Data Objective Data Vital Signs: Vital Signs Temp Pulse Resp BP Pulse Ox O2 Del Method 98.1 F 69 16 118/63 97 Room Air 08/31/23 09:53 09/07/23 09:48 09/07/23 09:48 09/07/23 09:48 08/28/23 00:33 09/07/23 09:48 Oxygen Delivery Method Room Air Charges/Coding Procedures Integumentary 111xxx-113xx: 20246 Jaye subq tissue 20 sq cm/< Add On Codes: 89211 Jaye subq tissue add-on (x 4. Additional square centimeter debrided, please refer to clinical note.) Physical Exam Const alert, oriented x3 and no apparent distress General Appearance: cooperative, comfortable and well kempt HEENT normocephalic and head/scalp atraumatic Eyes EOMs intact bilaterally General Eye: normal appearance of both eyes Neck full ROM General: normal visual inspection Resp normal respiratory effort Effort and Inspection: able to speak in complete sentences Extremity General Extremity: edema Skin Wounds: wounds noted Neuro oriented x3, CN's II-XII intact bilaterally, moves all extremities and no focal motor deficits Psych mental status grossly normal, thought process normal, cooperative and affect normal Debridement Note Debridement Note Wound debrided: Right medial ankle/foot Type of Debridement: Excisional debridement Anesthesia Used: 4% Lidocaine Solution Depth: Down to and including healthy tissue and in the subcutaneous layer Percentage of wound debrided: 100 Instrument Used: 5mm curette Tissue Removed: Slough and devitalized tissue Severity: Fat Layer Exposed Amount of bleeding with debridement: Mild Bleeding Controlled with: Pressure Patient tolerated procedure: Patient tolerated procedure well Post-Debridement Measurements and Additional Note: Post-Debridement Measurements/Treatment WC - Nurse 1 - General Ulcer Assessment Start: 08/31/23 09:50 Freq: Status: Active Protocol: LINDA Activity Type Activity Date Activity User E-sign Co-sign Detail Recorded Client Recorded Date Recorded By Document 08/31/23 09:53 DL Desktop 08/31/23 10:04 DL Document 09/07/23 09:48 BM Desktop 09/07/23 10:00 BMF 08/31/23 09/07/23 09:53 09:48 - Today's Visit Information Type of service Follow-up Visit Follow-up Visit (Physician/HAND STEMMER (Physician/HAND STEMMER ) ) Arrival Mode Ambulatory Wheelchair Transfer Assistance None Other Transfer Assist (Other) 2 Patient Identification Verified (Name & Yes Yes ) Patient Requires Transmission-Based No No Precautions Vital Signs Temperature (97.8 F-99.1 F) 98.1 F Temperature Source Temporal Pulse Rate (60-100) 73 69 Pulse Location Monitor Monitor Respiratory Rate (12-18) 20 H 16 Respiratory rate source Observation Observation Oxygen Delivery Method Room Air Blood Pressure (90/60-120/80) 121/68 H 118/63 Blood Pressure Mean (mm Hg) 85 81 Source Monitor Monitor Position Sitting Blood Pressure Location Right Forearm History Since Last Visit- (Skip if this is Patient's initial visit) Have you changed medications since your No No last visit? Any new allergies or adverse reactions No No Had a fall/change in ADL's that may No No increase risk of falls Signs or symptoms of abuse and/or No No neglect since last visit Have you been in the hospital since your No No last visit? Has dressing in place as prescribed Yes No Has compression in place as prescribed Yes No Has offloadiing in place as prescribed N/A N/A Experienced any changes in pain level or No No management Left Footwear Custom Shoe Custom Shoe Right Footwear Custom Shoe Custom Shoe Pain Scale: 0-10 Numeric Is Patient Pain Free? Yes Yes - Nurse 1 - General Ulcer Measurement Start: 08/31/23 09:50 Freq: Status: Active Protocol: Activity Type Activity Date Activity User E-sign Co-sign Detail Recorded Client Recorded Date Recorded By Document 08/31/23 09:53 DL Desktop 08/31/23 10:04 DL Document 09/07/23 09:48 [facility] Desktop 09/07/23 10:00 BMF 08/31/23 09/07/23 09:53 09:48 Wound Center Nurse 1 #16 Right Medial Superior -Combined with other wound No -Current Size (cm) - Length 0.3 -Current Size (cm) - Width 0.7 -Current Size (cm) - Depth 0.1 -Total Square Cm 0.21 -Epithelialization Small 1-33% -Tunneling No -Undermining/Tunneling No -Circular Undermining No -Exudate Amt Medium -Exudate Type Serosanguineous -Wound Margin Distinct, Outline Attached -Granulation Amt Medium (34-66%) -Granulation Quality Red -Slough/Fibrin Yes -Necrosis Amt Small (1-33%) -Necrotic Tissue Type Adherent Slough -Texture ([place]-wound Skin Appearance) Assessed, Scarring -Moisture ([place]-wound Skin Appearance) Assessed, Maceration,Dry/ Scaly -Color ([place]-wound Skin Appearance) Assessed -Temperature ([place]-wound Skin No Abnormality Appearance) (Pt Warm) -Tenderness on Palpation ([place]-wound No Skin Appearance) -Ulcer Cleansing Soap and Water -Foul Odor after Cleansing No -Anesthetic Used 4% Lidocaine Solution #15- L MED LE CLUSTER -Combined with other wound No No -Current Size (cm) - Length 0.7 1.5 -Current Size (cm) - Width 4.7 6.3 -Current Size (cm) - Depth 0.1 0.1 -Total Square Cm 3.29 9.45 -Date of Last Picture (Recall this 08/31/23 field) -Photo Taken Yes No -Epithelialization None Present None Present -Tunneling No No -Undermining/Tunneling No No -Circular Undermining No No -Exudate Amt Medium Medium -Exudate Type Serosanguineous Serosanguineous -Wound Margin Distinct, Distinct, Outline Outline Attached Attached -Granulation Amt Medium (34-66%) Large (67-100%) -Granulation Quality Red Red -Slough/Fibrin Yes Yes -Necrosis Amt Medium (34-66%) Small (1-33%) -Necrotic Tissue Type Adherent Slough Adherent Slough -Texture ([place]-wound Skin Appearance) Assessed, Assessed, Scarring Scarring -Moisture ([place]-wound Skin Appearance) Assessed Assessed,Dry/ Scaly -Color ([place]-wound Skin Appearance) Assessed Assessed -Temperature ([place]-wound Skin No Abnormality No Abnormality Appearance) (Pt Warm) (Pt Warm) -Tenderness on Palpation ([place]-wound No No Skin Appearance) -Ulcer Cleansing Soap and Water Soap and Water -Foul Odor after Cleansing No No -Anesthetic Used 4% Lidocaine 4% Lidocaine Solution Solution #14- R LAT ANKLE -Combined with other wound No No -Current Size (cm) - Length 2.5 10 -Current Size (cm) - Width 7 3.3 -Current Size (cm) - Depth 0.1 0.1 -Total Square Cm 17.5 33.0 -Date of Last Picture (Recall this 08/31/23 field) -Photo Taken Yes No -Epithelialization Medium 34-66% Small 1-33% -Tunneling No No -Undermining/Tunneling No No -Circular Undermining No No -Exudate Amt Medium Medium -Exudate Type Serous Serosanguineous -Wound Margin Flat & Intact Distinct, Outline Attached -Granulation Amt Large (67-100%) Large (67-100%) -Granulation Quality [place] -Slough/Fibrin Yes Yes -Necrosis Amt Small (1-33%) Small (1-33%) -Necrotic Tissue Type Adherent Slough Adherent Slough -Texture ([place]-wound Skin Appearance) Assessed, Assessed, Scarring Scarring -Moisture ([place]-wound Skin Appearance) Assessed Assessed,Dry/ Scaly -Color ([place]-wound Skin Appearance) Assessed Assessed -Temperature ([place]-wound Skin No Abnormality No Abnormality Appearance) (Pt Warm) (Pt Warm) -Tenderness on Palpation ([place]-wound No No Skin Appearance) -Ulcer Cleansing Soap and Water Soap and Water -Foul Odor after Cleansing No No -Anesthetic Used 4% Lidocaine 4% Lidocaine Solution Solution 13-right medial ankle -Combined with other wound No No -Current Size (cm) - Length 2.8 3.5 -Current Size (cm) - Width 4 3 -Current Size (cm) - Depth 0.1 0.1 -Total Square Cm 11.2 10.5 -Date of Last Picture (Recall this 08/31/23 field) -Photo Taken Yes No -Epithelialization Medium 34-66% Medium 34-66% -Tunneling No No -Undermining/Tunneling No No -Circular Undermining No No -Exudate Amt Medium Medium -Exudate Type Serosanguineous Serosanguineous -Wound Margin Distinct, Distinct, Outline Outline Attached Attached -Granulation Amt Large (67-100%) Large (67-100%) -Granulation Quality [place] -Slough/Fibrin Yes Yes -Necrosis Amt Small (1-33%) Small (1-33%) -Necrotic Tissue Type Adherent Slough Adherent Slough -Texture ([place]-wound Skin Appearance) Assessed, Assessed, Scarring Scarring -Moisture ([place]-wound Skin Appearance) No Abnormality, Assessed,Dry/ Dry/Scaly Scaly -Color ([place]-wound Skin Appearance) Assessed Assessed -Temperature ([place]-wound Skin No Abnormality No Abnormality Appearance) (Pt Warm) (Pt Warm) -Tenderness on Palpation ([place]-wound No No Skin Appearance) -Ulcer Cleansing Soap and Water Soap and Water -Foul Odor after Cleansing No No -Anesthetic Used 4% Lidocaine 4% Lidocaine Solution Solution Lower Limb Edema Present Yes Yes Right Calf (cm) 45 48.8 Right Ankle (cm) 34 35.5 Left Calf (cm) 40 43.4 Left Ankle (cm) 35 35 - Nurse 2 - General Ulcer CM Notes Start: 08/31/23 09:50 Freq: Status: Active Protocol: Activity Type Activity Date Activity User E-sign Co-sign Detail Recorded Client Recorded Date Recorded By Document 08/31/23 10:22 Desktop 08/31/23 10:37 Document 09/07/23 10:09 Desktop 09/07/23 10:21 08/31/23 09/07/23 10:22 10:09 Wound Center Nurse 2 #16 Right Medial Superior -Time 10:33 10:10 -Correct Patient Yes Yes -Correct Side, Site, Position Yes Yes -Correct Procedure Yes Yes -Procedure Performed Yes Yes -Type of Procedure Debridement Debridement -Clinical Debridement Subcutaneous Subcutaneous -Tissue Removed Subcutaneous Subcutaneous -Post Debridement (cm) - Length 1 3.0 -Post Debridement (cm) - Width 2 1.5 -Post Debridement (cm) - Depth 0.1 0.1 -Total Square (Post) (cm) 2 4.50 -Area of Debridement (cm) - Length 1 3.0 -Area of Debridement (cm) - Width 2 1.5 -Total Square (Area) (cm) 2 4.50 -Tunneling No No -Undermining/Tunneling No No -Circular Undermining No No -Wound/Ulcer Outcome Not Healed Not Healed -Ulcer Cleansing Rinsed/ Rinsed/ Irrigated with Irrigated with Saline Saline -Foul Odor after Cleansing No No -Bioengineered Tissue No No -Bleeding Controlled with Pressure Pressure -Treatment Response Procedure Procedure Tolerated Well Tolerated Well -Debridement - Subq, 1st 20sq cm Yes Yes -Debridement, SubQ, ea addt'l 20sq cm 5 4 or part thereof #15- L MED LE CLUSTER -Time 10:22 10:10 -Correct Patient Yes Yes -Correct Side, Site, Position Yes Yes -Correct Procedure Yes Yes -Procedure Performed Yes Yes -Type of Procedure Debridement Debridement -Clinical Debridement Subcutaneous Subcutaneous -Tissue Removed Subcutaneous Subcutaneous -Post Debridement (cm) - Length 1 1.5 -Post Debridement (cm) - Width 4.5 6.0 -Post Debridement (cm) - Depth 0.1 0.1 -Total Square (Post) (cm) 4.5 9.00 -Area of Debridement (cm) - Length 1 1.5 -Area of Debridement (cm) - Width 4.5 6.0 -Total Square (Area) (cm) 4.5 9.00 -Tunneling No No -Undermining/Tunneling No No -Circular Undermining No No -Wound/Ulcer Outcome Not Healed Not Healed -Ulcer Cleansing Rinsed/ Rinsed/ Irrigated with Irrigated with Saline Saline -Foul Odor after Cleansing No No -Bioengineered Tissue No No -Bleeding Controlled with Pressure Pressure -Treatment Response Procedure Procedure Tolerated Well Tolerated Well -Debridement - Subq, 1st 20sq cm No No #14- R LAT ANKLE -Time 10:23 10:11 -Correct Patient Yes Yes -Correct Side, Site, Position Yes Yes -Correct Procedure Yes Yes -Procedure Performed Yes Yes -Type of Procedure Debridement Debridement -Clinical Debridement Subcutaneous Subcutaneous -Tissue Removed Subcutaneous Subcutaneous -Post Debridement (cm) - Length 8 5.0 -Post Debridement (cm) - Width 11 11.5 -Post Debridement (cm) - Depth 0.1 0.1 -Total Square (Post) (cm) 88 57.50 -Area of Debridement (cm) - Length 8 5.0 -Area of Debridement (cm) - Width 11 11.5 -Total Square (Area) (cm) 88 57.50 -Tunneling No No -Undermining/Tunneling No No -Circular Undermining No No -Wound/Ulcer Outcome Not Healed Not Healed -Ulcer Cleansing Rinsed/ Rinsed/ Irrigated with Irrigated with Saline Saline -Foul Odor after Cleansing No No -Bioengineered Tissue No No -Bleeding Controlled with Pressure Pressure -Treatment Response Procedure Procedure Tolerated Well Tolerated Well -Debridement - Subq, 1st 20sq cm No No 13-right medial ankle -Time 10:23 10:13 -Correct Patient Yes Yes -Correct Side, Site, Position Yes Yes -Correct Procedure Yes Yes -Procedure Performed Yes Yes -Type of Procedure Debridement Debridement -Clinical Debridement Subcutaneous Subcutaneous -Tissue Removed Subcutaneous Subcutaneous -Post Debridement (cm) - Length 3.5 4.0 -Post Debridement (cm) - Width 4.0 4.0 -Post Debridement (cm) - Depth 0.1 0.1 -Total Square (Post) (cm) 14.00 16.00 -Area of Debridement (cm) - Length 3.5 4.0 -Area of Debridement (cm) - Width 4.0 4.0 -Total Square (Area) (cm) 14.00 16.00 -Tunneling No No -Undermining/Tunneling No No -Circular Undermining No No -Wound/Ulcer Outcome Not Healed Not Healed -Ulcer Cleansing Rinsed/ Rinsed/ Irrigated with Irrigated with Saline Saline -Foul Odor after Cleansing No No -Bioengineered Tissue No No -Bleeding Controlled with Pressure Pressure -Treatment Response Procedure Procedure Tolerated Well Tolerated Well -Debridement - Subq, 1st 20sq cm No No Pain Scale: 0-10 Numeric Is Patient Pain Free? Yes Yes WC - Nurse 3 - General Ulcer D/C NN Start: 08/31/23 09:50 Freq: Status: Active Protocol: Activity Type Activity Date Activity User E-sign Co-sign Detail Recorded Client Recorded Date Recorded By Document 08/31/23 10:39 Desktop 08/31/23 10:41 GM 08/31/23 10:39 Wound Care Center Nurse 3 #16 Right Medial Superior -Ulcer Cleansing Not Cleansed -Foul Odor after Cleansing No -Primary Dressing Applied Aquacel Extra -Primary Dressing Covered/Secured with Dry Gauze,Dry Gauze & Roll Gauze -Aquacel Extra 1 #15- L MED LE CLUSTER -Ulcer Cleansing Not Cleansed -Foul Odor after Cleansing No -Negative Pressure Wound Therapy N/A -Primary Dressing Covered/Secured with Dry Gauze,Dry Gauze & Roll Gauze,Secured with Tape #14- R LAT ANKLE -Ulcer Cleansing Not Cleansed -Foul Odor after Cleansing No -Negative Pressure Wound Therapy N/A -Primary Dressing Covered/Secured with Dry Gauze & Roll Gauze, Secured with Tape 13-right medial ankle -Ulcer Cleansing Not Cleansed -Foul Odor after Cleansing No -Negative Pressure Wound Therapy N/A -Primary Dressing Covered/Secured with Dry Gauze & Roll Gauze, Secured with Tape Left -Lotion applied to leg before No compression wrap -Tubular Bandage Double Layer -Size of Tubigrip Used Size D -Size D ($) 2 Right -Tubular Bandage Double Layer -Size of Tubigrip Used Size E -Size E ($) 2 Pain Scale: 0-10 Numeric Is Patient Pain Free? Yes Teaching: Wound Center Control Swelling with Leg Elevation -Person Taught Patient -Teaching Method Discussion -Response to teaching Verbalize understanding, Reinforcement needed Dressing Your Wound -Person Taught Patient -Teaching Method Discussion -Response to teaching Verbalize understanding WC - Visit Discharge Discharge Condition Stable Ambulatory Status Wheelchair Transportation Private Auto Medication Reconcilliation completed & Yes provided to patient/care provider Clinical Summary of Care Provided Yes Additional Wound Wound debrided: Right lateral ankle/foot Type of Debridement: Excisional debridement Anesthesia Used: 4% Lidocaine Solution Depth: Down to and including healthy tissue and in the subcutaneous layer Percentage of wound debrided: 100 Instrument Used: 5mm curette Tissue Removed: Slough and devitalized tissue Severity: Fat Layer Exposed Amount of bleeding with debridement: Mild Bleeding Controlled with: Pressure Patient tolerated procedure: Patient tolerated procedure well Additional Wound Wound debrided: Right lower leg (medial) Type of Debridement: Excisional debridement Anesthesia Used: 4% Lidocaine Solution Depth: Down to and including healthy tissue and in the subcutaneous layer Percentage of wound debrided: 100 Instrument Used: 5mm curette Tissue Removed: Slough and devitalized tissue Severity: Fat Layer Exposed Amount of bleeding with debridement: Mild Bleeding Controlled with: Pressure Patient tolerated procedure: Patient tolerated procedure well Additional Wound Wound debrided: Left lower leg cluster (medial) Type of Debridement: Excisional debridement Anesthesia Used: 4% Lidocaine Solution Depth: Down to and including healthy tissue and in the subcutaneous layer Percentage of wound debrided: 100 Instrument Used: 5mm curette Severity: Fat Layer Exposed Amount of bleeding with debridement: Mild Bleeding Controlled with: Pressure Patient tolerated procedure: Patient tolerated procedure well Assessment/Plan Assessment/Plan (1) Ulcer of right lower extremity with fat layer exposed: CODE(S): L97.912 - Non-pressure chronic ulcer of unspecified part of right lower leg with fat layer exposed (2) Ulcer of left lower extremity with fat layer exposed: CODE(S): L97.922 - Non-pressure chronic 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 Still has significant bilateral lower extremity edema but does have some improvement compared to last visit. Continue Aquacel extra to all open areas, cover with superabsorbent dressing. Change 2x daily and prn. Double layer Tubigrip for edema management. Adaptic over right sinclair. Continue use of lymphedema pump twice daily. Leg elevation and compression also very strongly recommended, he voiced understanding. Continue other chronic wound care. His questions were answered and he was advised to call with any further questions or concerns. Follow-up in 1 week. This note was generated with [employer] dictation software. It may contain incorrect words, spelling, and punctuation that were not noted in checking the note before signing.
[2023-09-14 09:35] VITALS: BP 115/60; PULSE 75; RESP 16; TEMP 37.1
--- NOTE | 2023-09-14 10:46 | PCM.WC.PN ---
History of Present Illness Date of Service: 09/14/23 Chief Complaint: Bilateral lower extremity ulcers History of Wound: Mr. Boles is an 83-year-old currently residing at [facility] who presents due to nonhealing bilateral lower extremity ulceration. He was seen here a few months ago and discharged after he achieved healing. Recommendation was for continued use of his lymphedema pump however he states that this has not been used consistently. Current ulceration has been present for weeks. No chills, fever or otherwise feeling of unwell. Progress of Wound: Overall, stable/improving. No new concerns reported at this time. Objective Data Objective Data Vital Signs: Vital Signs Temp Pulse Resp BP Pulse Ox O2 Del Method 98.8 F 75 16 115/60 97 Room Air 09/14/23 09:35 09/14/23 09:35 09/14/23 09:35 09/14/23 09:35 08/28/23 00:33 09/14/23 09:35 Oxygen Delivery Method Room Air Charges/Coding Procedures Integumentary 111xxx-113xx: 18102 Jaye subq tissue 20 sq cm/< Add On Codes: 23784 Jaye subq tissue add-on (x 1. Additional square centimeter debrided, please refer to clinical note.) Physical Exam Const alert, oriented x3 and no apparent distress General Appearance: cooperative, comfortable and well kempt HEENT normocephalic and head/scalp atraumatic Eyes EOMs intact bilaterally General Eye: normal appearance of both eyes Neck full ROM General: normal visual inspection Resp normal respiratory effort Effort and Inspection: able to speak in complete sentences Extremity General Extremity: edema Skin Wounds: wounds noted Neuro oriented x3, CN's II-XII intact bilaterally, moves all extremities and no focal motor deficits Psych mental status grossly normal, thought process normal, cooperative and affect normal Debridement Note Debridement Note Wound debrided: Right medial ankle/foot Type of Debridement: Excisional debridement Anesthesia Used: 5% Lidocaine Gel Depth: Down to and including healthy tissue and in the subcutaneous layer Percentage of wound debrided: 100 Instrument Used: 5mm curette Tissue Removed: Slough and devitalized tissue Severity: Fat Layer Exposed Amount of bleeding with debridement: Mild Bleeding Controlled with: Pressure Patient tolerated procedure: Patient tolerated procedure well Post-Debridement Measurements and Additional Note: Post-Debridement Measurements/Treatment WC - Nurse 1 - General Ulcer Assessment Start: 08/31/23 09:50 Freq: Status: Active Protocol: WC.LOWEXT Activity Type Activity Date Activity User E-sign Co-sign Detail Recorded Client Recorded Date Recorded By Document 08/31/23 09:53 DL Desktop 08/31/23 10:04 DL Document 09/07/23 09:48 BMF Desktop 09/07/23 10:00 BMF Document 09/14/23 09:35 BMF Desktop 09/14/23 09:49 BMF 08/31/23 09/07/23 09/14/23 09:53 09:48 09:35 - Today's Visit Information Type of service Follow-up Visit Follow-up Visit Follow-up Visit (Physician/DETECTIVE AND INTELLIGENCE ANALYST (Physician/DETECTIVE AND INTELLIGENCE ANALYST (Physician/DETECTIVE AND INTELLIGENCE ANALYST ) ) ) Arrival Mode Ambulatory Wheelchair Wheelchair Transfer Assistance None Other Other Transfer Assist (Other) 2 1 Patient Identification Verified (Name & Yes Yes Yes ) Patient Requires Transmission-Based No No No Precautions Vital Signs Temperature (97.8 F-99.1 F) 98.1 F 98.8 F Temperature Source Temporal Temporal Pulse Rate (60-100) 73 69 75 Pulse Location Monitor Monitor Monitor Respiratory Rate (12-18) 20 H 16 16 Respiratory rate source Observation Observation Observation Oxygen Delivery Method Room Air Room Air Blood Pressure (90/60-120/80) 121/68 H 118/63 115/60 Blood Pressure Mean (mm Hg) 85 81 78 Source Monitor Monitor Monitor Position Sitting Sitting Blood Pressure Location Right Forearm Right Forearm History Since Last Visit- (Skip if this is Patient's initial visit) Have you changed medications since your No No No last visit? Any new allergies or adverse reactions No No No Had a fall/change in ADL's that may No No No increase risk of falls Signs or symptoms of abuse and/or No No No neglect since last visit Have you been in the hospital since your No No No last visit? Has dressing in place as prescribed Yes No Yes Has compression in place as prescribed Yes No Yes Has offloadiing in place as prescribed N/A N/A N/A Experienced any changes in pain level or No No No management Left Footwear Custom Shoe Custom Shoe Custom Shoe Right Footwear Custom Shoe Custom Shoe Custom Shoe Pain Scale: 0-10 Numeric Is Patient Pain Free? Yes Yes Yes - Nurse 1 - General Ulcer Measurement Start: 08/31/23 09:50 Freq: Status: Active Protocol: Activity Type Activity Date Activity User E-sign Co-sign Detail Recorded Client Recorded Date Recorded By Document 08/31/23 09:53 DL Desktop 08/31/23 10:04 DL Document 09/07/23 09:48 BMF Desktop 09/07/23 10:00 BMF Document 09/14/23 09:35 BM Desktop 09/14/23 09:49 BMF 08/31/23 09/07/23 09/14/23 09:53 09:48 09:35 Wound Center Nurse 1 #16 Right Medial Superior -Combined with other wound No No -Current Size (cm) - Length 0.3 9.6 -Current Size (cm) - Width 0.7 1 -Current Size (cm) - Depth 0.1 0.1 -Total Square Cm 0.21 9.6 -Epithelialization Small 1-33% Small 1-33% -Tunneling No No -Undermining/Tunneling No No -Circular Undermining No No -Exudate Amt Medium Medium -Exudate Type Serosanguineous Serosanguineous -Wound Margin Distinct, Distinct, Outline Outline Attached Attached -Granulation Amt Medium (34-66%) Medium (34-66%) -Granulation Quality Red Red -Slough/Fibrin Yes Yes -Necrosis Amt Small (1-33%) Medium (34-66%) -Necrotic Tissue Type Adherent Slough Adherent Slough -Texture ([place]-wound Skin Appearance) Assessed, Assessed, Scarring Scarring -Moisture ([place]-wound Skin Appearance) Assessed, Assessed,Dry/ Maceration,Dry/ Scaly Scaly -Color ([place]-wound Skin Appearance) Assessed Assessed -Temperature ([place]-wound Skin No Abnormality No Abnormality Appearance) (Pt Warm) (Pt Warm) -Tenderness on Palpation ([place]-wound No No Skin Appearance) -Ulcer Cleansing Soap and Water Rinsed/ Irrigated with Saline -Foul Odor after Cleansing No Yes, Due to Product Use -Anesthetic Used 4% Lidocaine 5% Lidocaine Solution Gel #15- L MED LE CLUSTER -Combined with other wound No No No -Current Size (cm) - Length 0.7 1.5 1.7 -Current Size (cm) - Width 4.7 6.3 5.9 -Current Size (cm) - Depth 0.1 0.1 0.1 -Total Square Cm 3.29 9.45 10.03 -Date of Last Picture (Recall this 08/31/23 09/14/23 field) -Photo Taken Yes No Yes -Epithelialization None Present None Present Small 1-33% -Tunneling No No No -Undermining/Tunneling No No No -Circular Undermining No No No -Exudate Amt Medium Medium Medium -Exudate Type Serosanguineous Serosanguineous Serosanguineous -Wound Margin Distinct, Distinct, Distinct, Outline Outline Outline Attached Attached Attached -Granulation Amt Medium (34-66%) Large (67-100%) None Present (0 %) -Granulation Quality Red Red -Slough/Fibrin Yes Yes Yes -Necrosis Amt Medium (34-66%) Small (1-33%) Large (67-100%) -Necrotic Tissue Type Adherent Slough Adherent Slough Adherent Slough -Texture ([place]-wound Skin Appearance) Assessed, Assessed, Assessed, Scarring Scarring Scarring -Moisture ([place]-wound Skin Appearance) Assessed Assessed,Dry/ Assessed,Dry/ Scaly Scaly -Color ([place]-wound Skin Appearance) Assessed Assessed Assessed -Temperature ([place]-wound Skin No Abnormality No Abnormality No Abnormality Appearance) (Pt Warm) (Pt Warm) (Pt Warm) -Tenderness on Palpation ([place]-wound No No No Skin Appearance) -Ulcer Cleansing Soap and Water Soap and Water Rinsed/ Irrigated with Saline -Foul Odor after Cleansing No No No -Anesthetic Used 4% Lidocaine 4% Lidocaine 5% Lidocaine Solution Solution Gel #14- R LAT ANKLE -Combined with other wound No No No -Current Size (cm) - Length 2.5 10 8.5 -Current Size (cm) - Width 7 3.3 1.5 -Current Size (cm) - Depth 0.1 0.1 0.1 -Total Square Cm 17.5 33.0 12.75 -Date of Last Picture (Recall this 08/31/23 09/14/23 field) -Photo Taken Yes No Yes -Epithelialization Medium 34-66% Small 1-33% Small 1-33% -Tunneling No No No -Undermining/Tunneling No No No -Circular Undermining No No No -Exudate Amt Medium Medium Medium -Exudate Type Serous Serosanguineous Serosanguineous -Wound Margin Flat & Intact Distinct, Distinct, Outline Outline Attached Attached -Granulation Amt Large (67-100%) Large (67-100%) None Present (0 %) -Granulation Quality Miston Miston -Slough/Fibrin Yes Yes Yes -Necrosis Amt Small (1-33%) Small (1-33%) Large (67-100%) -Necrotic Tissue Type Adherent Slough Adherent Slough Adherent Slough -Texture ([place]-wound Skin Appearance) Assessed, Assessed, Assessed, Scarring Scarring Scarring -Moisture ([place]-wound Skin Appearance) Assessed Assessed,Dry/ Assessed,Dry/ Scaly Scaly -Color ([place]-wound Skin Appearance) Assessed Assessed Assessed -Temperature ([place]-wound Skin No Abnormality No Abnormality No Abnormality Appearance) (Pt Warm) (Pt Warm) (Pt Warm) -Tenderness on Palpation ([place]-wound No No No Skin Appearance) -Ulcer Cleansing Soap and Water Soap and Water Soap and Water -Foul Odor after Cleansing No No No -Anesthetic Used 4% Lidocaine 4% Lidocaine 5% Lidocaine Solution Solution Gel 13-right medial ankle -Combined with other wound No No No -Current Size (cm) - Length 2.8 3.5 3.3 -Current Size (cm) - Width 4 3 2.5 -Current Size (cm) - Depth 0.1 0.1 0.1 -Total Square Cm 11.2 10.5 8.25 -Date of Last Picture (Recall this 08/31/23 09/14/23 field) -Photo Taken Yes No No -Epithelialization Medium 34-66% Medium 34-66% Small 1-33% -Tunneling No No No -Undermining/Tunneling No No No -Circular Undermining No No No -Exudate Amt Medium Medium Medium -Exudate Type Serosanguineous Serosanguineous Serosanguineous -Wound Margin Distinct, Distinct, Distinct, Outline Outline Outline Attached Attached Attached -Granulation Amt Large (67-100%) Large (67-100%) None Present (0 %) -Granulation Quality Miston Miston -Slough/Fibrin Yes Yes Yes -Necrosis Amt Small (1-33%) Small (1-33%) Large (67-100%) -Necrotic Tissue Type Adherent Slough Adherent Slough Adherent Slough -Texture ([place]-wound Skin Appearance) Assessed, Assessed, Assessed, Scarring Scarring Scarring -Moisture ([place]-wound Skin Appearance) No Abnormality, Assessed,Dry/ Assessed Dry/Scaly Scaly -Color ([place]-wound Skin Appearance) Assessed Assessed Assessed -Temperature ([place]-wound Skin No Abnormality No Abnormality No Abnormality Appearance) (Pt Warm) (Pt Warm) (Pt Warm) -Tenderness on Palpation ([place]-wound No No No Skin Appearance) -Ulcer Cleansing Soap and Water Soap and Water Rinsed/ Irrigated with Saline -Foul Odor after Cleansing No No No -Anesthetic Used 4% Lidocaine 4% Lidocaine 5% Lidocaine Solution Solution Gel Lower Limb Edema Present Yes Yes Yes Right Calf (cm) 45 48.8 45 Right Ankle (cm) 34 35.5 32.8 Left Calf (cm) 40 43.4 40.1 Left Ankle (cm) 35 35 32.8 WC - Nurse 2 - General Ulcer CM Notes Start: 08/31/23 09:50 Freq: Status: Active Protocol: Activity Type Activity Date Activity User E-sign Co-sign Detail Recorded Client Recorded Date Recorded By Document 08/31/23 10:22 [employer] 08/31/23 10:37 Document 09/07/23 10:09 [employer] 09/07/23 10:21 Experiment Document 09/14/23 10:21 [employer] 09/14/23 10:33 08/31/23 09/07/23 09/14/23 10:22 10:09 10:21 Wound Center Nurse 2 #16 Right Medial Superior -Time 10:33 10:10 10:31 -Correct Patient Yes Yes Yes -Correct Side, Site, Position Yes Yes Yes -Correct Procedure Yes Yes Yes -Procedure Performed Yes Yes Yes -Type of Procedure Debridement Debridement Debridement -Clinical Debridement Subcutaneous Subcutaneous Subcutaneous -Tissue Removed Subcutaneous Subcutaneous Subcutaneous -Post Debridement (cm) - Length 1 3.0 2.5 -Post Debridement (cm) - Width 2 1.5 1.0 -Post Debridement (cm) - Depth 0.1 0.1 0.1 -Total Square (Post) (cm) 2 4.50 2.50 -Area of Debridement (cm) - Length 1 3.0 2.5 -Area of Debridement (cm) - Width 2 1.5 1.0 -Total Square (Area) (cm) 2 4.50 2.50 -Tunneling No No No -Undermining/Tunneling No No No -Circular Undermining No No No -Wound/Ulcer Outcome Not Healed Not Healed Not Healed -Ulcer Cleansing Rinsed/ Rinsed/ Rinsed/ Irrigated with Irrigated with Irrigated with Saline Saline Saline -Foul Odor after Cleansing No No No -Bioengineered Tissue No No No -Bleeding Controlled with Pressure Pressure Pressure -Treatment Response Procedure Procedure Procedure Tolerated Well Tolerated Well Tolerated Well -Debridement - Subq, 1st 20sq cm Yes Yes No -Debridement, SubQ, ea addt'l 20sq cm 5 4 or part thereof #15- L MED LE CLUSTER -Time 10:22 10:10 10:26 -Correct Patient Yes Yes Yes -Correct Side, Site, Position Yes Yes Yes -Correct Procedure Yes Yes Yes -Procedure Performed Yes Yes Yes -Type of Procedure Debridement Debridement Debridement -Clinical Debridement Subcutaneous Subcutaneous Subcutaneous -Tissue Removed Subcutaneous Subcutaneous Subcutaneous -Post Debridement (cm) - Length 1 1.5 1.5 -Post Debridement (cm) - Width 4.5 6.0 6.0 -Post Debridement (cm) - Depth 0.1 0.1 0.1 -Total Square (Post) (cm) 4.5 9.00 9.00 -Area of Debridement (cm) - Length 1 1.5 1.5 -Area of Debridement (cm) - Width 4.5 6.0 6.0 -Total Square (Area) (cm) 4.5 9.00 9.00 -Tunneling No No No -Undermining/Tunneling No No No -Circular Undermining No No No -Wound/Ulcer Outcome Not Healed Not Healed Not Healed -Ulcer Cleansing Rinsed/ Rinsed/ Rinsed/ Irrigated with Irrigated with Irrigated with Saline Saline Saline -Foul Odor after Cleansing No No No -Bioengineered Tissue No No No -Bleeding Controlled with Pressure Pressure Pressure -Treatment Response Procedure Procedure Procedure Tolerated Well Tolerated Well Tolerated Well -Debridement - Subq, 1st 20sq cm No No No #14- R LAT ANKLE -Time 10:23 10:11 10:27 -Correct Patient Yes Yes Yes -Correct Side, Site, Position Yes Yes Yes -Correct Procedure Yes Yes Yes -Procedure Performed Yes Yes Yes -Type of Procedure Debridement Debridement Debridement -Clinical Debridement Subcutaneous Subcutaneous Subcutaneous -Tissue Removed Subcutaneous Subcutaneous Subcutaneous -Post Debridement (cm) - Length 8 5.0 1.0 -Post Debridement (cm) - Width 11 11.5 10.0 -Post Debridement (cm) - Depth 0.1 0.1 0.1 -Total Square (Post) (cm) 88 57.50 10.00 -Area of Debridement (cm) - Length 8 5.0 1.0 -Area of Debridement (cm) - Width 11 11.5 10.0 -Total Square (Area) (cm) 88 57.50 10.00 -Tunneling No No No -Undermining/Tunneling No No No -Circular Undermining No No No -Wound/Ulcer Outcome Not Healed Not Healed Not Healed -Ulcer Cleansing Rinsed/ Rinsed/ Rinsed/ Irrigated with Irrigated with Irrigated with Saline Saline Saline -Foul Odor after Cleansing No No No -Bioengineered Tissue No No No -Bleeding Controlled with Pressure Pressure Pressure -Treatment Response Procedure Procedure Procedure Tolerated Well Tolerated Well Tolerated Well -Debridement - Subq, 1st 20sq cm No No No 13-right medial ankle -Time 10:23 10:13 10:30 -Correct Patient Yes Yes Yes -Correct Side, Site, Position Yes Yes Yes -Correct Procedure Yes Yes Yes -Procedure Performed Yes Yes Yes -Type of Procedure Debridement Debridement Debridement -Clinical Debridement Subcutaneous Subcutaneous Subcutaneous -Tissue Removed Subcutaneous Subcutaneous Subcutaneous -Post Debridement (cm) - Length 3.5 4.0 3.0 -Post Debridement (cm) - Width 4.0 4.0 3.5 -Post Debridement (cm) - Depth 0.1 0.1 0.1 -Total Square (Post) (cm) 14.00 16.00 10.50 -Area of Debridement (cm) - Length 3.5 4.0 3.0 -Area of Debridement (cm) - Width 4.0 4.0 3.5 -Total Square (Area) (cm) 14.00 16.00 10.50 -Tunneling No No No -Undermining/Tunneling No No No -Circular Undermining No No No -Wound/Ulcer Outcome Not Healed Not Healed Not Healed -Ulcer Cleansing Rinsed/ Rinsed/ Rinsed/ Irrigated with Irrigated with Irrigated with Saline Saline Saline -Foul Odor after Cleansing No No No -Bioengineered Tissue No No No -Bleeding Controlled with Pressure Pressure Pressure -Treatment Response Procedure Procedure Procedure Tolerated Well Tolerated Well Tolerated Well -Debridement - Subq, 1st 20sq cm No No Yes -Debridement, SubQ, ea addt'l 20sq cm 1 or part thereof Pain Scale: 0-10 Numeric Is Patient Pain Free? Yes Yes Yes WC - Nurse 3 - General Ulcer D/C NN Start: 08/31/23 09:50 Freq: Status: Active Protocol: Activity Type Activity Date Activity User E-sign Co-sign Detail Recorded Client Recorded Date Recorded By Document 08/31/23 10:39 Desktop 08/31/23 10:41 Document 09/07/23 10:40 [facility] Desktop 09/07/23 10:41 F 08/31/23 09/07/23 10:39 10:40 Wound Care Center Nurse 3 #16 Right Medial Superior -Ulcer Cleansing Not Cleansed Rinsed/ Irrigated with Saline -Foul Odor after Cleansing No No -Primary Dressing Applied Aquacel Extra Aquacel Extra -Other Dressing abd -Primary Dressing Covered/Secured with Dry Gauze,Dry Dry Gauze & Gauze & Roll Roll Gauze, Gauze Secured with Tape -Aquacel Extra 1 2 #15- L MED LE CLUSTER -Ulcer Cleansing Not Cleansed Rinsed/ Irrigated with Saline -Foul Odor after Cleansing No No -Negative Pressure Wound Therapy N/A -Primary Dressing Applied Aquacel Extra -Other Dressing abd -Primary Dressing Covered/Secured with Dry Gauze,Dry Dry Gauze & Gauze & Roll Roll Gauze, Gauze,Secured Secured with with Tape Tape -Aquacel Extra 0 #14- R LAT ANKLE -Ulcer Cleansing Not Cleansed Rinsed/ Irrigated with Saline -Foul Odor after Cleansing No No -Negative Pressure Wound Therapy N/A -Primary Dressing Applied Aquacel Extra -Other Dressing abd -Primary Dressing Covered/Secured with Dry Gauze & Dry Gauze & Roll Gauze, Roll Gauze, Secured with Secured with Tape Tape -Aquacel Extra 0 13-right medial ankle -Ulcer Cleansing Not Cleansed Rinsed/ Irrigated with Saline -Foul Odor after Cleansing No No -Negative Pressure Wound Therapy N/A -Primary Dressing Applied Aquacel Extra -Other Dressing abd -Primary Dressing Covered/Secured with Dry Gauze & Dry Gauze & Roll Gauze, Roll Gauze, Secured with Secured with Tape Tape -Aquacel Extra 0 Left -Lotion applied to leg before No compression wrap -Tubular Bandage Double Layer Double Layer -Size of Tubigrip Used Size D Size D -Size D ($) 2 2 Right -Tubular Bandage Double Layer Double Layer -Size of Tubigrip Used Size E Size E -Size E ($) 2 2 Treatment Response Procedure Tolerated Well Pain Scale: 0-10 Numeric Is Patient Pain Free? Yes Yes Teaching: Wound Center Control Swelling with Leg Elevation -Person Taught Patient -Teaching Method Discussion -Response to teaching Verbalize understanding, Reinforcement needed Dressing Your Wound -Person Taught Patient -Teaching Method Discussion -Response to teaching Verbalize understanding WC - Visit Discharge Discharge Condition Stable Stable Ambulatory Status Wheelchair Wheelchair Transportation Private Auto ecf transport Medication Reconcilliation completed & Yes provided to patient/care provider Clinical Summary of Care Provided Yes Facility Type [facility] Additional Wound Wound debrided: Right lateral ankle/foot Type of Debridement: Excisional debridement Anesthesia Used: 5% Lidocaine Gel Depth: Down to and including healthy tissue and in the subcutaneous layer Percentage of wound debrided: 100 Instrument Used: 5mm curette Tissue Removed: Slough and devitalized tissue Severity: Fat Layer Exposed Amount of bleeding with debridement: Mild Bleeding Controlled with: Pressure Patient tolerated procedure: Patient tolerated procedure well Additional Wound Wound debrided: Right lower leg (medial) Type of Debridement: Excisional debridement Anesthesia Used: 5% Lidocaine Gel Depth: Down to and including healthy tissue and in the subcutaneous layer Percentage of wound debrided: 100 Instrument Used: 5mm curette Tissue Removed: Slough and devitalized tissue Severity: Fat Layer Exposed Amount of bleeding with debridement: Mild Bleeding Controlled with: Pressure Patient tolerated procedure: Patient tolerated procedure well Additional Wound Wound debrided: Left lower leg cluster (medial) Type of Debridement: Excisional debridement Anesthesia Used: 5% Lidocaine Gel Depth: Down to and including healthy tissue and in the subcutaneous layer Percentage of wound debrided: 100 Instrument Used: 5mm curette Severity: Fat Layer Exposed Amount of bleeding with debridement: Mild Bleeding Controlled with: Pressure Patient tolerated procedure: Patient tolerated procedure well Assessment/Plan Assessment/Plan (1) Ulcer of right lower extremity with fat layer exposed: CODE(S): L97.912 - Non-pressure chronic ulcer of unspecified part of right lower leg with fat layer exposed (2) Ulcer of left lower extremity with fat layer exposed: CODE(S): L97.922 - Non-pressure chronic 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 Still has significant bilateral lower extremity edema but does have some improvement compared to last visit. Continue Aquacel extra to all open areas, cover with superabsorbent dressing. Change 2x daily and prn. Double layer Tubigrip for edema management. Adaptic over right sinclair. Continue use of lymphedema pump twice daily. Leg elevation and compression also very strongly recommended, he voiced understanding. Continue other chronic wound care. His questions were answered and he was advised to call with any further questions or concerns. Follow-up in 1 week. This note was generated with alike dictation software. It may contain incorrect words, spelling, and punctuation that were not noted in checking the note before signing.
[2023-09-21 09:55] VITALS: BP 122/66; PULSE 72; RESP 20; TEMP 36.2
--- NOTE | 2023-09-21 11:12 | PCM.WC.PN ---
History of Present Illness Date of Service: 09/21/23 Chief Complaint: Bilateral lower extremity ulcers History of Wound: Mr. Boles is an 83-year-old currently residing at [facility] who presents due to nonhealing bilateral lower extremity ulceration. He was seen here a few months ago and discharged after he achieved healing. Recommendation was for continued use of his lymphedema pump however he states that this has not been used consistently. Current ulceration has been present for weeks. No chills, fever or otherwise feeling of unwell. Progress of Wound: Overall, stable/improving. No new concerns reported at this time. Objective Data Objective Data Vital Signs: Vital Signs Temp Pulse Resp BP Pulse Ox O2 Del Method 97.2 F L 72 20 H 122/66 H 97 Room Air 09/21/23 09:55 09/21/23 09:55 09/21/23 09:55 09/21/23 09:55 08/28/23 00:33 09/14/23 09:35 Oxygen Delivery Method Room Air Charges/Coding Procedures Integumentary [id number]: [id number] Jaye subq tissue 20 sq cm/< Add On Codes: 06175 Jaye subq tissue add-on (x1 additional square centimeter debrided, please refer to clinical note.) Physical Exam Const alert, oriented x3 and no apparent distress General Appearance: cooperative, comfortable and well kempt HEENT normocephalic and head/scalp atraumatic Eyes EOMs intact bilaterally General Eye: normal appearance of both eyes Neck full ROM General: normal visual inspection Resp normal respiratory effort Effort and Inspection: able to speak in complete sentences Extremity General Extremity: edema Skin Wounds: wounds noted Neuro oriented x3, CN's II-XII intact bilaterally, moves all extremities and no focal motor deficits Psych mental status grossly normal, thought process normal, cooperative and affect normal Debridement Note Debridement Note Wound debrided: Left Medial Leg ( Cluster ) Type of Debridement: Excisional debridement Anesthesia Used: 5% Lidocaine Gel Depth: Down to and including healthy tissue and in the subcutaneous layer Percentage of wound debrided: 100 Instrument Used: 5mm curette Tissue Removed: Slough and devitalized tissue Severity: Fat Layer Exposed Amount of bleeding with debridement: Mild Bleeding Controlled with: Pressure Patient tolerated procedure: Patient tolerated procedure well Post-Debridement Measurements and Additional Note: Post-Debridement Measurements/Treatment WC - Nurse 1 - General Ulcer Assessment Start: 08/31/23 09:50 Freq: Status: Active Protocol: WC.LOWEXT Activity Type Activity Date Activity User E-sign Co-sign Detail Recorded Client Recorded Date Recorded By Document 08/31/23 09:53 DL Desktop 08/31/23 10:04 DL Document 09/07/23 09:48 BMF Desktop 09/07/23 10:00 BMF Document 09/14/23 09:35 BMF Desktop 09/14/23 09:49 BMF Document 09/21/23 09:55 DL Desktop 09/21/23 10:07 DL 08/31/23 09/07/23 09/14/23 09:53 09:48 09:35 - Today's Visit Information Type of service Follow-up Visit Follow-up Visit Follow-up Visit (Physician/CLINICAL PRODUCT MANAGER (Physician/CLINICAL PRODUCT MANAGER (Physician/CLINICAL PRODUCT MANAGER ) ) ) Arrival Mode Ambulatory Wheelchair Wheelchair Transfer Assistance None Other Other Transfer Assist (Other) 2 1 Patient Identification Verified (Name & Yes Yes Yes ) Patient Requires Transmission-Based No No No Precautions Vital Signs Temperature (97.8 F-99.1 F) 98.1 F 98.8 F Temperature Source Temporal Temporal Pulse Rate (60-100) 73 69 75 Pulse Location Monitor Monitor Monitor Respiratory Rate (12-18) 20 H 16 16 Respiratory rate source Observation Observation Observation Oxygen Delivery Method Room Air Room Air Blood Pressure (90/60-120/80) 121/68 H 118/63 115/60 Blood Pressure Mean (mm Hg) 85 81 78 Source Monitor Monitor Monitor Position Sitting Sitting Blood Pressure Location Right Forearm Right Forearm History Since Last Visit- (Skip if this is Patient's initial visit) Have you changed medications since your No No No last visit? Any new allergies or adverse reactions No No No Had a fall/change in ADL's that may No No No increase risk of falls Signs or symptoms of abuse and/or No No No neglect since last visit Have you been in the hospital since your No No No last visit? Has dressing in place as prescribed Yes No Yes Has compression in place as prescribed Yes No Yes Has offloadiing in place as prescribed N/A N/A N/A Experienced any changes in pain level or No No No management Left Footwear Custom Shoe Custom Shoe Custom Shoe Right Footwear Custom Shoe Custom Shoe Custom Shoe Pain Scale: 0-10 Numeric Is Patient Pain Free? Yes Yes Yes 09/21/23 09:55 WC - Today's Visit Information Type of service Follow-up Visit (Physician/CLINICAL PRODUCT MANAGER ) Arrival Mode Wheelchair Transfer Assistance Manual Transfer Assist (Other) x2 Patient Identification Verified (Name & Yes ) Patient Requires Transmission-Based No Precautions Vital Signs Temperature (97.8 F-99.1 F) 97.2 F L Temperature Source Temporal Pulse Rate (60-100) 72 Pulse Location Respiratory Rate (12-18) 20 H Respiratory rate source Observation Oxygen Delivery Method Blood Pressure (90/60-120/80) 122/66 H Blood Pressure Mean (mm Hg) 84 Source Monitor Position Sitting Blood Pressure Location Right Forearm History Since Last Visit- (Skip if this is Patient's initial visit) Have you changed medications since your No last visit? Any new allergies or adverse reactions No Had a fall/change in ADL's that may No increase risk of falls Signs or symptoms of abuse and/or No neglect since last visit Have you been in the hospital since your No last visit? Has dressing in place as prescribed Yes Has compression in place as prescribed Yes Has offloadiing in place as prescribed N/A Experienced any changes in pain level or No management Left Footwear Custom Shoe Right Footwear Custom Shoe Pain Scale: 0-10 Numeric Is Patient Pain Free? Yes - Nurse 1 - General Ulcer Measurement Start: 08/31/23 09:50 Freq: Status: Active Protocol: Activity Type Activity Date Activity User E-sign Co-sign Detail Recorded Client Recorded Date Recorded By Document 08/31/23 09:53 DL Desktop 08/31/23 10:04 DL Document 09/07/23 09:48 [facility] Desktop 09/07/23 10:00 BMF Document 09/14/23 09:35 BMF Desktop 09/14/23 09:49 BMF Document 09/21/23 09:55 DL Desktop 09/21/23 10:07 DL 08/31/23 09/07/23 09/14/23 09:53 09:48 09:35 Wound Center Nurse 1 #16 Right Medial Superior cluster -Combined with other wound No No -Current Size (cm) - Length 0.3 9.6 -Current Size (cm) - Width 0.7 1 -Current Size (cm) - Depth 0.1 0.1 -Total Square Cm 0.21 9.6 -Epithelialization Small 1-33% Small 1-33% -Tunneling No No -Undermining/Tunneling No No -Circular Undermining No No -Exudate Amt Medium Medium -Exudate Type Serosanguineous Serosanguineous -Wound Margin Distinct, Distinct, Outline Outline Attached Attached -Granulation Amt Medium (34-66%) Medium (34-66%) -Granulation Quality Red Red -Slough/Fibrin Yes Yes -Necrosis Amt Small (1-33%) Medium (34-66%) -Necrotic Tissue Type Adherent Slough Adherent Slough -Texture ([place]-wound Skin Appearance) Assessed, Assessed, Scarring Scarring -Moisture ([place]-wound Skin Appearance) Assessed, Assessed,Dry/ Maceration,Dry/ Scaly Scaly -Color ([place]-wound Skin Appearance) Assessed Assessed -Temperature ([place]wound Skin No Abnormality No Abnormality Appearance) (Pt Warm) (Pt Warm) -Tenderness on Palpation ([place]-wound No No Skin Appearance) -Ulcer Cleansing Soap and Water Rinsed/ Irrigated with Saline -Foul Odor after Cleansing No Yes, Due to Product Use -Anesthetic Used 4% Lidocaine 5% Lidocaine Solution Gel #15- L MED LE CLUSTER -Combined with other wound No No No -Current Size (cm) - Length 0.7 1.5 1.7 -Current Size (cm) - Width 4.7 6.3 5.9 -Current Size (cm) - Depth 0.1 0.1 0.1 -Total Square Cm 3.29 9.45 10.03 -Date of Last Picture (Recall this 08/31/23 09/14/23 field) -Photo Taken Yes No Yes -Epithelialization None Present None Present Small 1-33% -Tunneling No No No -Undermining/Tunneling No No No -Circular Undermining No No No -Exudate Amt Medium Medium Medium -Exudate Type Serosanguineous Serosanguineous Serosanguineous -Wound Margin Distinct, Distinct, Distinct, Outline Outline Outline Attached Attached Attached -Granulation Amt Medium (34-66%) Large (67-100%) None Present (0 %) -Granulation Quality Red Red -Slough/Fibrin Yes Yes Yes -Necrosis Amt Medium (34-66%) Small (1-33%) Large (67-100%) -Necrotic Tissue Type Adherent Slough Adherent Slough Adherent Slough -Texture ([place]wound Skin Appearance) Assessed, Assessed, Assessed, Scarring Scarring Scarring -Moisture ([place]wound Skin Appearance) Assessed Assessed,Dry/ Assessed,Dry/ Scaly Scaly -Color ([place]wound Skin Appearance) Assessed Assessed Assessed -Temperature ([place]wound Skin No Abnormality No Abnormality No Abnormality Appearance) (Pt Warm) (Pt Warm) (Pt Warm) -Tenderness on Palpation ([place]-wound No No No Skin Appearance) -Ulcer Cleansing Soap and Water Soap and Water Rinsed/ Irrigated with Saline -Foul Odor after Cleansing No No No -Anesthetic Used 4% Lidocaine 4% Lidocaine 5% Lidocaine Solution Solution Gel #14- R LAT ANKLE -Combined with other wound No No No -Current Size (cm) - Length 2.5 10 8.5 -Current Size (cm) - Width 7 3.3 1.5 -Current Size (cm) - Depth 0.1 0.1 0.1 -Total Square Cm 17.5 33.0 12.75 -Date of Last Picture (Recall this 08/31/23 09/14/23 field) -Photo Taken Yes No Yes -Epithelialization Medium 34-66% Small 1-33% Small 1-33% -Tunneling No No No -Undermining/Tunneling No No No -Circular Undermining No No No -Exudate Amt Medium Medium Medium -Exudate Type Serous Serosanguineous Serosanguineous -Wound Margin Flat & Intact Distinct, Distinct, Outline Outline Attached Attached -Granulation Amt Large (67-100%) Large (67-100%) None Present (0 %) -Granulation Quality [place] -Slough/Fibrin Yes Yes Yes -Necrosis Amt Small (1-33%) Small (1-33%) Large (67-100%) -Necrotic Tissue Type Adherent Slough Adherent Slough Adherent Slough -Texture ([place]wound Skin Appearance) Assessed, Assessed, Assessed, Scarring Scarring Scarring -Moisture ([place]wound Skin Appearance) Assessed Assessed,Dry/ Assessed,Dry/ Scaly Scaly -Color ([place]wound Skin Appearance) Assessed Assessed Assessed -Temperature ([place]wound Skin No Abnormality No Abnormality No Abnormality Appearance) (Pt Warm) (Pt Warm) (Pt Warm) -Tenderness on Palpation ([place]-wound No No No Skin Appearance) -Ulcer Cleansing Soap and Water Soap and Water Soap and Water -Foul Odor after Cleansing No No No -Anesthetic Used 4% Lidocaine 4% Lidocaine 5% Lidocaine Solution Solution Gel 13-right medial ankle -Combined with other wound No No No -Current Size (cm) - Length 2.8 3.5 3.3 -Current Size (cm) - Width 4 3 2.5 -Current Size (cm) - Depth 0.1 0.1 0.1 -Total Square Cm 11.2 10.5 8.25 -Date of Last Picture (Recall this 08/31/23 09/14/23 field) -Photo Taken Yes No No -Epithelialization Medium 34-66% Medium 34-66% Small 1-33% -Tunneling No No No -Undermining/Tunneling No No No -Circular Undermining No No No -Exudate Amt Medium Medium Medium -Exudate Type Serosanguineous Serosanguineous Serosanguineous -Wound Margin Distinct, Distinct, Distinct, Outline Outline Outline Attached Attached Attached -Granulation Amt Large (67-100%) Large (67-100%) None Present (0 %) -Granulation Quality [place] -Slough/Fibrin Yes Yes Yes -Necrosis Amt Small (1-33%) Small (1-33%) Large (67-100%) -Necrotic Tissue Type Adherent Slough Adherent Slough Adherent Slough -Texture ([place]-wound Skin Appearance) Assessed, Assessed, Assessed, Scarring Scarring Scarring -Moisture ([place]-wound Skin Appearance) No Abnormality, Assessed,Dry/ Assessed Dry/Scaly Scaly -Color ([place]-wound Skin Appearance) Assessed Assessed Assessed -Temperature ([place]-wound Skin No Abnormality No Abnormality No Abnormality Appearance) (Pt Warm) (Pt Warm) (Pt Warm) -Tenderness on Palpation ([place]-wound No No No Skin Appearance) -Ulcer Cleansing Soap and Water Soap and Water Rinsed/ Irrigated with Saline -Foul Odor after Cleansing No No No -Anesthetic Used 4% Lidocaine 4% Lidocaine 5% Lidocaine Solution Solution Gel Lower Limb Edema Present Yes Yes Yes Right Calf (cm) 45 48.8 45 Right Ankle (cm) 34 35.5 32.8 Left Calf (cm) 40 43.4 40.1 Left Ankle (cm) 35 35 32.8 09/21/23 09:55 Wound Center Nurse 1 #16 Right Medial Superior cluster -Combined with other wound No -Current Size (cm) - Length 9 -Current Size (cm) - Width 8 -Current Size (cm) - Depth 0.1 -Total Square Cm 72 -Epithelialization Small 1-33% -Tunneling No -Undermining/Tunneling No -Circular Undermining No -Exudate Amt Medium -Exudate Type Serosanguineous -Wound Margin Distinct, Outline Attached -Granulation Amt Medium (34-66%) -Granulation Quality Red -Slough/Fibrin Yes -Necrosis Amt Medium (34-66%) -Necrotic Tissue Type Adherent Slough -Texture ([place]-wound Skin Appearance) Assessed, Scarring -Moisture ([place]-wound Skin Appearance) Assessed,Dry/ Scaly -Color ([place]-wound Skin Appearance) Assessed -Temperature ([place]-wound Skin No Abnormality Appearance) (Pt Warm) -Tenderness on Palpation ([place]-wound No Skin Appearance) -Ulcer Cleansing Soap and Water -Foul Odor after Cleansing No -Anesthetic Used 5% Lidocaine Gel #15- L MED LE CLUSTER -Combined with other wound No -Current Size (cm) - Length 1.6 -Current Size (cm) - Width 5.4 -Current Size (cm) - Depth 0.1 -Total Square Cm 8.64 -Date of Last Picture (Recall this field) -Photo Taken No -Epithelialization Small 1-33% -Tunneling No -Undermining/Tunneling No -Circular Undermining No -Exudate Amt Medium -Exudate Type Serosanguineous -Wound Margin Distinct, Outline Attached -Granulation Amt Medium (34-66%) -Granulation Quality Red -Slough/Fibrin Yes -Necrosis Amt Medium (34-66%) -Necrotic Tissue Type Adherent Slough -Texture ([place]-wound Skin Appearance) Assessed, Scarring -Moisture ([place]-wound Skin Appearance) Assessed,Dry/ Scaly -Color ([place]-wound Skin Appearance) Assessed -Temperature ([place]-wound Skin No Abnormality Appearance) (Pt Warm) -Tenderness on Palpation ([place]-wound No Skin Appearance) -Ulcer Cleansing Soap and Water -Foul Odor after Cleansing No -Anesthetic Used 5% Lidocaine Gel #14- R LAT ANKLE -Combined with other wound No -Current Size (cm) - Length 1.5 -Current Size (cm) - Width 4 -Current Size (cm) - Depth 0.1 -Total Square Cm 6.0 -Date of Last Picture (Recall this field) -Photo Taken No -Epithelialization Medium 34-66% -Tunneling No -Undermining/Tunneling No -Circular Undermining No -Exudate Amt Medium -Exudate Type Serosanguineous -Wound Margin Distinct, Outline Attached -Granulation Amt Medium (34-66%) -Granulation Quality [place] -Slough/Fibrin Yes -Necrosis Amt Medium (34-66%) -Necrotic Tissue Type Adherent Slough -Texture ([place]-wound Skin Appearance) Assessed, Scarring -Moisture ([place]-wound Skin Appearance) Assessed,Dry/ Scaly -Color ([place]-wound Skin Appearance) Assessed -Temperature ([place]-wound Skin No Abnormality Appearance) (Pt Warm) -Tenderness on Palpation ([place]-wound No Skin Appearance) -Ulcer Cleansing Soap and Water -Foul Odor after Cleansing No -Anesthetic Used 5% Lidocaine Gel 13-right medial ankle -Combined with other wound No -Current Size (cm) - Length 0.1 -Current Size (cm) - Width 0.1 -Current Size (cm) - Depth 0.1 -Total Square Cm 0.01 -Date of Last Picture (Recall this field) -Photo Taken -Epithelialization Large 67-100% -Tunneling No -Undermining/Tunneling No -Circular Undermining No -Exudate Amt None Present -Exudate Type -Wound Margin -Granulation Amt -Granulation Quality -Slough/Fibrin -Necrosis Amt -Necrotic Tissue Type -Texture ([place]-wound Skin Appearance) Assessed -Moisture ([place]-wound Skin Appearance) Assessed,Dry/ Scaly -Color ([place]-wound Skin Appearance) Assessed -Temperature ([place]-wound Skin No Abnormality Appearance) (Pt Warm) -Tenderness on Palpation ([place]-wound No Skin Appearance) -Ulcer Cleansing Soap and Water -Foul Odor after Cleansing No -Anesthetic Used Lower Limb Edema Present Yes Right Calf (cm) 45 Right Ankle (cm) 32.4 Left Calf (cm) 40.5 Left Ankle (cm) 33.5 WC - Nurse 2 - General Ulcer CM Notes Start: 08/31/23 09:50 Freq: Status: Active Protocol: Activity Type Activity Date Activity User E-sign Co-sign Detail Recorded Client Recorded Date Recorded By Document 08/31/23 10:22 GM Desktop 01/04/24 10:37 Document 09/07/23 10:09 Desktop 09/07/23 10:21 Document 09/14/23 10:21 Desktop 09/14/23 10:33 Document 09/21/23 10:17 [id number] 09/21/23 10:29 08/31/23 09/07/23 09/14/23 10:22 10:09 10:21 Wound Center Nurse 2 #16 Right Medial Superior cluster -Time 10:33 10:10 10:31 -Correct Patient Yes Yes Yes -Correct Side, Site, Position Yes Yes Yes -Correct Procedure Yes Yes Yes -Procedure Performed Yes Yes Yes -Type of Procedure Debridement Debridement Debridement -Clinical Debridement Subcutaneous Subcutaneous Subcutaneous -Tissue Removed Subcutaneous Subcutaneous Subcutaneous -Post Debridement (cm) - Length 1 3.0 2.5 -Post Debridement (cm) - Width 2 1.5 1.0 -Post Debridement (cm) - Depth 0.1 0.1 0.1 -Total Square (Post) (cm) 2 4.50 2.50 -Area of Debridement (cm) - Length 1 3.0 2.5 -Area of Debridement (cm) - Width 2 1.5 1.0 -Total Square (Area) (cm) 2 4.50 2.50 -Tunneling No No No -Undermining/Tunneling No No No -Circular Undermining No No No -Wound/Ulcer Outcome Not Healed Not Healed Not Healed -Ulcer Cleansing Rinsed/ Rinsed/ Rinsed/ Irrigated with Irrigated with Irrigated with Saline Saline Saline -Foul Odor after Cleansing No No No -Bioengineered Tissue No No No -Bleeding Controlled with Pressure Pressure Pressure -Treatment Response Procedure Procedure Procedure Tolerated Well Tolerated Well Tolerated Well -Debridement - Subq, 1st 20sq cm Yes Yes No -Debridement, SubQ, ea addt'l 20sq cm 5 4 or part thereof #15- L MED LE CLUSTER -Time 10:22 10:10 10:26 -Correct Patient Yes Yes Yes -Correct Side, Site, Position Yes Yes Yes -Correct Procedure Yes Yes Yes -Procedure Performed Yes Yes Yes -Type of Procedure Debridement Debridement Debridement -Clinical Debridement Subcutaneous Subcutaneous Subcutaneous -Tissue Removed Subcutaneous Subcutaneous Subcutaneous -Post Debridement (cm) - Length 1 1.5 1.5 -Post Debridement (cm) - Width 4.5 6.0 6.0 -Post Debridement (cm) - Depth 0.1 0.1 0.1 -Total Square (Post) (cm) 4.5 9.00 9.00 -Area of Debridement (cm) - Length 1 1.5 1.5 -Area of Debridement (cm) - Width 4.5 6.0 6.0 -Total Square (Area) (cm) 4.5 9.00 9.00 -Tunneling No No No -Undermining/Tunneling No No No -Circular Undermining No No No -Wound/Ulcer Outcome Not Healed Not Healed Not Healed -Ulcer Cleansing Rinsed/ Rinsed/ Rinsed/ Irrigated with Irrigated with Irrigated with Saline Saline Saline -Foul Odor after Cleansing No No No -Bioengineered Tissue No No No -Bleeding Controlled with Pressure Pressure Pressure -Treatment Response Procedure Procedure Procedure Tolerated Well Tolerated Well Tolerated Well -Debridement - Subq, 1st 20sq cm No No No -Debridement, SubQ, ea addt'l 20sq cm or part thereof #14- R LAT ANKLE -Time 10:23 10:11 10:27 -Correct Patient Yes Yes Yes -Correct Side, Site, Position Yes Yes Yes -Correct Procedure Yes Yes Yes -Procedure Performed Yes Yes Yes -Type of Procedure Debridement Debridement Debridement -Clinical Debridement Subcutaneous Subcutaneous Subcutaneous -Tissue Removed Subcutaneous Subcutaneous Subcutaneous -Post Debridement (cm) - Length 8 5.0 1.0 -Post Debridement (cm) - Width 11 11.5 10.0 -Post Debridement (cm) - Depth 0.1 0.1 0.1 -Total Square (Post) (cm) 88 57.50 10.00 -Area of Debridement (cm) - Length 8 5.0 1.0 -Area of Debridement (cm) - Width 11 11.5 10.0 -Total Square (Area) (cm) 88 57.50 10.00 -Tunneling No No No -Undermining/Tunneling No No No -Circular Undermining No No No -Wound/Ulcer Outcome Not Healed Not Healed Not Healed -Ulcer Cleansing Rinsed/ Rinsed/ Rinsed/ Irrigated with Irrigated with Irrigated with Saline Saline Saline -Foul Odor after Cleansing No No No -Bioengineered Tissue No No No -Bleeding Controlled with Pressure Pressure Pressure -Treatment Response Procedure Procedure Procedure Tolerated Well Tolerated Well Tolerated Well -Debridement - Subq, 1st 20sq cm No No No 13-right medial ankle -Time 10:23 10:13 10:30 -Correct Patient Yes Yes Yes -Correct Side, Site, Position Yes Yes Yes -Correct Procedure Yes Yes Yes -Procedure Performed Yes Yes Yes -Type of Procedure Debridement Debridement Debridement -Clinical Debridement Subcutaneous Subcutaneous Subcutaneous -Tissue Removed Subcutaneous Subcutaneous Subcutaneous -Post Debridement (cm) - Length 3.5 4.0 3.0 -Post Debridement (cm) - Width 4.0 4.0 3.5 -Post Debridement (cm) - Depth 0.1 0.1 0.1 -Total Square (Post) (cm) 14.00 16.00 10.50 -Area of Debridement (cm) - Length 3.5 4.0 3.0 -Area of Debridement (cm) - Width 4.0 4.0 3.5 -Total Square (Area) (cm) 14.00 16.00 10.50 -Tunneling No No No -Undermining/Tunneling No No No -Circular Undermining No No No -Wound/Ulcer Outcome Not Healed Not Healed Not Healed -Ulcer Cleansing Rinsed/ Rinsed/ Rinsed/ Irrigated with Irrigated with Irrigated with Saline Saline Saline -Foul Odor after Cleansing No No No -Bioengineered Tissue No No No -Bleeding Controlled with Pressure Pressure Pressure -Treatment Response Procedure Procedure Procedure Tolerated Well Tolerated Well Tolerated Well -Debridement - Subq, 1st 20sq cm No No Yes -Debridement, SubQ, ea addt'l 20sq cm 1 or part thereof Pain Scale: 0-10 Numeric Is Patient Pain Free? Yes Yes Yes 09/21/23 10:17 Wound Center Nurse 2 #16 Right Medial Superior cluster -Time 10:24 -Correct Patient Yes -Correct Side, Site, Position Yes -Correct Procedure Yes -Procedure Performed Yes -Type of Procedure Debridement -Clinical Debridement Subcutaneous -Tissue Removed Subcutaneous -Post Debridement (cm) - Length 2.7 -Post Debridement (cm) - Width 1.5 -Post Debridement (cm) - Depth 0.1 -Total Square (Post) (cm) 4.05 -Area of Debridement (cm) - Length 2.7 -Area of Debridement (cm) - Width 1.5 -Total Square (Area) (cm) 4.05 -Tunneling No -Undermining/Tunneling No -Circular Undermining No -Wound/Ulcer Outcome Not Healed -Ulcer Cleansing Rinsed/ Irrigated with Saline -Foul Odor after Cleansing No -Bioengineered Tissue No -Bleeding Controlled with Pressure -Treatment Response Procedure Tolerated Well -Debridement - Subq, 1st 20sq cm No -Debridement, SubQ, ea addt'l 20sq cm or part thereof #15- L MED LE CLUSTER -Time 10:26 -Correct Patient Yes -Correct Side, Site, Position Yes -Correct Procedure Yes -Procedure Performed Yes -Type of Procedure Debridement -Clinical Debridement Subcutaneous -Tissue Removed Subcutaneous -Post Debridement (cm) - Length 1.5 -Post Debridement (cm) - Width 5.5 -Post Debridement (cm) - Depth 0.1 -Total Square (Post) (cm) 8.25 -Area of Debridement (cm) - Length 1.5 -Area of Debridement (cm) - Width 5.5 -Total Square (Area) (cm) 8.25 -Tunneling No -Undermining/Tunneling No -Circular Undermining No -Wound/Ulcer Outcome Not Healed -Ulcer Cleansing Rinsed/ Irrigated with Saline -Foul Odor after Cleansing No -Bioengineered Tissue No -Bleeding Controlled with Pressure -Treatment Response Procedure Tolerated Well -Debridement - Subq, 1st 20sq cm Yes -Debridement, SubQ, ea addt'l 20sq cm 1 or part thereof #14- R LAT ANKLE -Time 10:23 -Correct Patient Yes -Correct Side, Site, Position Yes -Correct Procedure Yes -Procedure Performed Yes -Type of Procedure Debridement -Clinical Debridement Subcutaneous -Tissue Removed Subcutaneous -Post Debridement (cm) - Length 3.0 -Post Debridement (cm) - Width 5.5 -Post Debridement (cm) - Depth 0.1 -Total Square (Post) (cm) 16.50 -Area of Debridement (cm) - Length 3.0 -Area of Debridement (cm) - Width 5.5 -Total Square (Area) (cm) 16.50 -Tunneling No -Undermining/Tunneling No -Circular Undermining No -Wound/Ulcer Outcome Not Healed -Ulcer Cleansing Rinsed/ Irrigated with Saline -Foul Odor after Cleansing No -Bioengineered Tissue No -Bleeding Controlled with Pressure -Treatment Response Procedure Tolerated Well -Debridement - Subq, 1st 20sq cm No 13-right medial ankle -Time 10:18 -Correct Patient Yes -Correct Side, Site, Position Yes -Correct Procedure No -Procedure Performed No -Type of Procedure -Clinical Debridement -Tissue Removed -Post Debridement (cm) - Length -Post Debridement (cm) - Width -Post Debridement (cm) - Depth -Total Square (Post) (cm) -Area of Debridement (cm) - Length -Area of Debridement (cm) - Width -Total Square (Area) (cm) -Tunneling -Undermining/Tunneling -Circular Undermining -Wound/Ulcer Outcome Healed- Epithelialized -Ulcer Cleansing -Foul Odor after Cleansing -Bioengineered Tissue -Bleeding Controlled with -Treatment Response -Debridement - Subq, 1st 20sq cm -Debridement, SubQ, ea addt'l 20sq cm or part thereof Pain Scale: 0-10 Numeric Is Patient Pain Free? Yes WC - Nurse 3 - General Ulcer D/C NN Start: 08/31/23 09:50 Freq: Status: Active Protocol: Activity Type Activity Date Activity User E-sign Co-sign Detail Recorded Client Recorded Date Recorded By Document 08/31/23 10:39 [email or web address] 08/31/23 10:41 Document 09/07/23 10:40 [facility] Desktop 09/07/23 10:41 [facility] Document 09/14/23 12:00 [email or web address] Desktop 09/14/23 12:02 [email or web address] Document 09/21/23 10:43 [email or web address] Desktop 09/21/23 10:48 F 08/31/23 09/07/23 09/14/23 10:39 10:40 12:00 [facility] Nurse 3 #16 Right Medial Superior cluster -Ulcer Cleansing Not Cleansed Rinsed/ Rinsed/ Irrigated with Irrigated with Saline Saline -Foul Odor after Cleansing No No No -Primary Dressing Applied Aquacel Extra Aquacel Extra NonAdherent Contact Layer -Other Dressing abd ABD -Primary Dressing Covered/Secured with Dry Gauze,Dry Dry Gauze & Dry Gauze & Gauze & Roll Roll Gauze, Roll Gauze, Gauze Secured with Secured with Tape Tape -Aquacel Extra 1 2 #15- L MED LE CLUSTER -Ulcer Cleansing Not Cleansed Rinsed/ Rinsed/ Irrigated with Irrigated with Saline Saline -Foul Odor after Cleansing No No No -Negative Pressure Wound Therapy N/A -Primary Dressing Applied Aquacel Extra Aquacel Extra -Other Dressing abd ABD -Primary Dressing Covered/Secured with Dry Gauze,Dry Dry Gauze & Dry Gauze & Gauze & Roll Roll Gauze, Roll Gauze, Gauze,Secured Secured with Secured with with Tape Tape Tape -Aquacel Extra 0 1 #14- R LAT ANKLE -Ulcer Cleansing Not Cleansed Rinsed/ Rinsed/ Irrigated with Irrigated with Saline Saline -Foul Odor after Cleansing No No No -Negative Pressure Wound Therapy N/A -Primary Dressing Applied Aquacel Extra Aquacel Extra -Other Dressing abd ABD -Primary Dressing Covered/Secured with Dry Gauze & Dry Gauze & Dry Gauze & Roll Gauze, Roll Gauze, Roll Gauze, Secured with Secured with Secured with Tape Tape Tape -Aquacel Extra 0 0 13-right medial ankle -Ulcer Cleansing Not Cleansed Rinsed/ Rinsed/ Irrigated with Irrigated with Saline Saline -Foul Odor after Cleansing No No No -Negative Pressure Wound Therapy N/A -Primary Dressing Applied Aquacel Extra Aquacel Extra -Other Dressing abd ABD -Primary Dressing Covered/Secured with Dry Gauze & Dry Gauze & Dry Gauze & Roll Gauze, Roll Gauze, Roll Gauze, Secured with Secured with Secured with Tape Tape Tape -Aquacel Extra 0 0 Left -Lotion applied to leg before No compression wrap -Tubular Bandage Double Layer Double Layer Single Layer -Size of Tubigrip Used Size D Size D Size E -Size D ($) 2 2 -Size E ($) 1 -Other USING NEW TUBI PRODUCT, WENT UP A SIZE Right -Tubular Bandage Double Layer Double Layer Double Layer -Size of Tubigrip Used Size E Size E Size E -Size E ($) 2 2 2 -Other ORIGINAL TUBI PRODUCT APPLIED Treatment Response Procedure Procedure Tolerated Well Tolerated Well Pain Scale: 0-10 Numeric Is Patient Pain Free? Yes Yes Yes Teaching: Wound Center Control Swelling with Leg Elevation -Person Taught Patient -Teaching Method Discussion -Response to teaching Verbalize understanding, Reinforcement needed Dressing Your Wound -Person Taught Patient -Teaching Method Discussion -Response to teaching Verbalize understanding WC - Visit Discharge Discharge Condition Stable Stable Stable Ambulatory Status Wheelchair Wheelchair Wheelchair Transportation Private Auto ecf transport ECF Medication Reconcilliation completed & Yes provided to patient/care provider Clinical Summary of Care Provided Yes Facility Type [facility] Facility 01/25/24 10:43 Wound Care Center Nurse 3 #16 Right Medial Superior cluster -Ulcer Cleansing Rinsed/ Irrigated with Saline -Foul Odor after Cleansing No -Primary Dressing Applied NonAdherent Contact Layer -Other Dressing abd -Primary Dressing Covered/Secured with Dry Gauze & Roll Gauze, Secured with Tape -Aquacel Extra #15- L MED LE CLUSTER -Ulcer Cleansing Rinsed/ Irrigated with Saline -Foul Odor after Cleansing No -Negative Pressure Wound Therapy -Primary Dressing Applied Aquacel Extra -Other Dressing abd -Primary Dressing Covered/Secured with Dry Gauze & Roll Gauze, Secured with Tape -Aquacel Extra 1 #14- R LAT ANKLE -Ulcer Cleansing Rinsed/ Irrigated with Saline -Foul Odor after Cleansing No -Negative Pressure Wound Therapy -Primary Dressing Applied Aquacel Extra, NonAdherent Contact Layer -Other Dressing abd -Primary Dressing Covered/Secured with Dry Gauze & Roll Gauze, Secured with Tape -Aquacel Extra 0 13-right medial ankle -Ulcer Cleansing Rinsed/ Irrigated with Saline -Foul Odor after Cleansing No -Negative Pressure Wound Therapy -Primary Dressing Applied NonAdherent Contact Layer -Other Dressing abd -Primary Dressing Covered/Secured with Dry Gauze & Roll Gauze, Secured with Tape -Aquacel Extra Left -Lotion applied to leg before compression wrap -Tubular Bandage Double Layer -Size of Tubigrip Used Size D -Size D ($) 1 -Size E ($) -Other applied single layer of new brand tubi Right -Tubular Bandage Double Layer -Size of Tubigrip Used Size E -Size E ($) 2 -Other Treatment Response Procedure Tolerated Well Pain Scale: 0-10 Numeric Is Patient Pain Free? Yes Teaching: Wound Center Control Swelling with Leg Elevation -Person Taught -Teaching Method -Response to teaching Dressing Your Wound -Person Taught -Teaching Method -Response to teaching WC - Visit Discharge Discharge Condition Stable Ambulatory Status Wheelchair Transportation ecf Medication Reconcilliation completed & provided to patient/care provider Clinical Summary of Care Provided Facility Type [facility] Facility Additional Wound Wound debrided: Right lateral ankle/foot Type of Debridement: Excisional debridement Anesthesia Used: 5% Lidocaine Gel Depth: Down to and including healthy tissue and in the subcutaneous layer Percentage of wound debrided: 100 Instrument Used: 5mm curette Tissue Removed: Slough and devitalized tissue Severity: Fat Layer Exposed Amount of bleeding with debridement: Mild Bleeding Controlled with: Pressure Patient tolerated procedure: Patient tolerated procedure well Additional Wound Wound debrided: Right lower leg (medial) Type of Debridement: Excisional debridement Anesthesia Used: 5% Lidocaine Gel Depth: Down to and including healthy tissue and in the subcutaneous layer Percentage of wound debrided: 100 Instrument Used: 5mm curette Tissue Removed: Slough and devitalized tissue Severity: Fat Layer Exposed Amount of bleeding with debridement: Mild Bleeding Controlled with: Pressure Patient tolerated procedure: Patient tolerated procedure well Assessment/Plan Assessment/Plan (1) Ulcer of right lower extremity with fat layer exposed: CODE(S): L97.912 - Non-pressure chronic ulcer of unspecified part of right lower leg with fat layer exposed (2) Ulcer of left lower extremity with fat layer exposed: CODE(S): L97.922 - Non-pressure chronic 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 Improving. No new concerns at this time.Continue Aquacel extra to all open areas, cover with superabsorbent dressing. Change 2x daily and prn. Double layer Tubigrip for edema management. Adaptic over right sinclair and lateral foot. Continue use of lymphedema pump twice daily. Leg elevation and compression also very strongly recommended, he voiced understanding. Continue other chronic wound care. His questions were answered and he was advised to call with any further questions or concerns. Follow-up in 1 week. This note was generated with [employer] dictation software. It may contain incorrect words, spelling, and punctuation that were not noted in checking the note before signing.
== END 2023-09-27 23:59 | disposition home or self-care (01) ==
LOC: WC 09:45
PROVIDERS: PCP Family Medicine; Referring Provider Internal Medicine; Visit Provider Internal Medicine
DX: L97.912 Non-pressure chronic ulcer of unspecified part of right lower leg with fat layer exposed (principal); L97.922 Non-pressure chronic ulcer of unspecified part of left lower leg with fat layer exposed; I89.0 Lymphedema, not elsewhere classified; I87.2 Venous insufficiency (chronic) (peripheral)
CPT/HCPCS: 11042; 11045

== ENCOUNTER 2023-10-26 10:00 | Outpatient (RCR) | payer MEDICARE, MEDICAID, SELFPAY ==
[2023-09-28 00:23] VITALS: BP 122/66; PULSE 72; RESP 20; TEMP 36.2; O2SAT 97
[2023-09-28 10:00] VITALS: BP 141/71; PULSE 66; RESP 16; TEMP 36.9
--- NOTE | 2023-09-28 10:42 | PCM.WC.PN ---
History of Present Illness Date of Service: 09/28/23 Chief Complaint: Bilateral lower extremity ulcers History of Wound: Mr. Boles is an 83-year-old currently residing at [facility] who presents due to nonhealing bilateral lower extremity ulceration. He was seen here a few months ago and discharged after he achieved healing. Recommendation was for continued use of his lymphedema pump however he states that this has not been used consistently. Current ulceration has been present for weeks. No chills, fever or otherwise feeling of unwell. Progress of Wound: Increased bilateral lower extremity swelling. He has no new concerns at this time. Objective Data Objective Data Vital Signs: Vital Signs Temp Pulse Resp BP Pulse Ox O2 Del Method 98.5 F 66 16 141/71 H 97 Room Air 09/28/23 10:00 09/28/23 10:00 09/28/23 10:00 09/28/23 10:00 09/28/23 00:23 09/28/23 10:00 Oxygen Delivery Method Room Air Charges/Coding Procedures Integumentary 111xxx-113xx: 75030 Jaye subq tissue 20 sq cm/< Add On Codes: 19826 Jaye subq tissue add-on (x2. Additional Sq Cm debrided, please refer to clinical note) Physical Exam Const alert, oriented x3 and no apparent distress General Appearance: cooperative, comfortable and well kempt HEENT normocephalic and head/scalp atraumatic Eyes EOMs intact bilaterally General Eye: normal appearance of both eyes Neck full ROM General: normal visual inspection Resp normal respiratory effort Effort and Inspection: able to speak in complete sentences Extremity General Extremity: edema Skin Wounds: wounds noted Neuro oriented x3, CN's II-XII intact bilaterally, moves all extremities and no focal motor deficits Psych mental status grossly normal, thought process normal, cooperative and affect normal Debridement Note Debridement Note Wound debrided: Left Medial Leg ( Cluster ) Type of Debridement: Excisional debridement Anesthesia Used: 5% Lidocaine Gel Depth: Down to and including healthy tissue and in the subcutaneous layer Percentage of wound debrided: 100 Instrument Used: 5mm curette Tissue Removed: Slough and devitalized tissue Severity: Fat Layer Exposed Amount of bleeding with debridement: Mild Bleeding Controlled with: Pressure Patient tolerated procedure: Patient tolerated procedure well Post-Debridement Measurements and Additional Note: Post-Debridement Measurements/Treatment WC - Nurse 1 - General Ulcer Assessment Start: 09/28/23 09:59 Freq: Status: Active Protocol: [email or web address].[email or web address] Activity Type Activity Date Activity User E-sign Co-sign Detail Recorded Client Recorded Date Recorded By Document 09/28/23 10:00 [facility] Desktop 09/28/23 10:07 [facility] 09/28/23 10:00 - Today's Visit Information Type of service Follow-up Visit (Physician/NEUROLOGY PHYSICIAN ASSISTANT ) Arrival Mode Wheelchair Transfer Assistance Other Transfer Assist (Other) 2 Patient Identification Verified (Name & Yes ) Patient Requires Transmission-Based No Precautions Vital Signs Temperature (97.8 F-99.1 F) 98.5 F Temperature Source Temporal Pulse Rate (60-100) 66 Pulse Location Monitor Respiratory Rate (12-18) 16 Respiratory rate source Observation Oxygen Delivery Method Room Air Blood Pressure (90/60-120/80) 141/71 H Blood Pressure Mean (mm Hg) 94 Source Monitor Position Sitting Blood Pressure Location Right Forearm History Since Last Visit- (Skip if this is Patient's initial visit) Have you changed medications since your No last visit? Any new allergies or adverse reactions No Had a fall/change in ADL's that may No increase risk of falls Signs or symptoms of abuse and/or No neglect since last visit Have you been in the hospital since your No last visit? Has dressing in place as prescribed Yes Has compression in place as prescribed Yes Has offloadiing in place as prescribed N/A Experienced any changes in pain level or No management Left Footwear Custom Shoe Right Footwear Custom Shoe Pain Scale: 0-10 Numeric Is Patient Pain Free? Yes - Nurse 1 - General Ulcer Measurement Start: 09/28/23 09:59 Freq: Status: Active Protocol: Activity Type Activity Date Activity User E-sign Co-sign Detail Recorded Client Recorded Date Recorded By Document 09/28/23 10:00 [facility] [employer] 09/28/23 10:07 [facility] 09/28/23 10:00 Wound Center Nurse 1 #16 Right Medial Superior cluster -Combined with other wound No -Current Size (cm) - Length 7 -Current Size (cm) - Width 4 -Current Size (cm) - Depth 0.1 -Total Square Cm 28 -Date of Last Picture (Recall this 09/28/23 field) -Photo Taken Yes -Epithelialization Small 1-33% -Tunneling No -Undermining/Tunneling No -Circular Undermining No -Exudate Amt Medium -Exudate Type Serosanguineous -Wound Margin Distinct, Outline Attached -Granulation Amt Large (67-100%) -Granulation Quality Red -Slough/Fibrin Yes -Necrosis Amt Small (1-33%) -Necrotic Tissue Type Adherent Slough -Texture ([place]-wound Skin Appearance) Assessed, Scarring -Moisture ([place]-wound Skin Appearance) Assessed,Dry/ Scaly -Color ([place]-wound Skin Appearance) Assessed -Temperature ([place]-wound Skin No Abnormality Appearance) (Pt Warm) -Tenderness on Palpation ([place]-wound No Skin Appearance) -Ulcer Cleansing Soap and Water -Foul Odor after Cleansing No -Anesthetic Used 5% Lidocaine Gel #15- L MED LE CLUSTER -Combined with other wound No -Current Size (cm) - Length 1 -Current Size (cm) - Width 3.4 -Current Size (cm) - Depth 0.1 -Total Square Cm 3.4 -Date of Last Picture (Recall this 09/28/23 field) -Photo Taken Yes -Epithelialization Small 1-33% -Tunneling No -Undermining/Tunneling No -Circular Undermining No -Exudate Amt Medium -Exudate Type Serosanguineous -Wound Margin Distinct, Outline Attached -Granulation Amt Large (67-100%) -Granulation Quality Red -Slough/Fibrin Yes -Necrosis Amt Small (1-33%) -Necrotic Tissue Type Adherent Slough -Texture ([place]-wound Skin Appearance) Assessed, Scarring -Moisture ([place]-wound Skin Appearance) Assessed,Dry/ Scaly -Color ([place]-wound Skin Appearance) Assessed -Temperature ([place]-wound Skin No Abnormality Appearance) (Pt Warm) -Tenderness on Palpation ([place]-wound No Skin Appearance) -Ulcer Cleansing Soap and Water -Foul Odor after Cleansing No -Anesthetic Used 5% Lidocaine Gel #14- R LAT ANKLE -Combined with other wound No -Current Size (cm) - Length 1 -Current Size (cm) - Width 7 -Current Size (cm) - Depth 0.1 -Total Square Cm 7 -Date of Last Picture (Recall this 09/28/23 field) -Photo Taken Yes -Epithelialization Small 1-33% -Tunneling No -Undermining/Tunneling No -Circular Undermining No -Exudate Amt Medium -Exudate Type Serosanguineous -Wound Margin Distinct, Outline Attached -Granulation Amt Medium (34-66%) -Granulation Quality [place] -Slough/Fibrin Yes -Necrosis Amt Small (1-33%) -Necrotic Tissue Type Adherent Slough -Texture ([place]-wound Skin Appearance) Assessed, Scarring -Moisture ([place]-wound Skin Appearance) Assessed,Dry/ Scaly -Color ([place]-wound Skin Appearance) Assessed -Temperature ([place]-wound Skin No Abnormality Appearance) (Pt Warm) -Tenderness on Palpation ([place]-wound No Skin Appearance) -Ulcer Cleansing Soap and Water -Foul Odor after Cleansing No -Anesthetic Used 5% Lidocaine Gel Lower Limb Edema Present Yes Right Calf (cm) 43.2 Right Ankle (cm) 33.5 Left Calf (cm) 41.5 Left Ankle (cm) 34 WC - Nurse 2 - General Ulcer CM Notes Start: 09/28/23 09:59 Freq: Status: Active Protocol: Activity Type Activity Date Activity User E-sign Co-sign Detail Recorded Client Recorded Date Recorded By Document 09/28/23 10:16 Desktop 09/28/23 10:30 [facility] 09/28/23 10:16 Wound Center Nurse 2 #16 Right Medial Superior cluster -Time 10:17 -Correct Patient Yes -Correct Side, Site, Position Yes -Correct Procedure Yes -Procedure Performed Yes -Type of Procedure Debridement -Clinical Debridement Subcutaneous -Tissue Removed Subcutaneous -Post Debridement (cm) - Length 8.0 -Post Debridement (cm) - Width 2.0 -Post Debridement (cm) - Depth 0.1 -Total Square (Post) (cm) 16.00 -Area of Debridement (cm) - Length 8.0 -Area of Debridement (cm) - Width 2.0 -Total Square (Area) (cm) 16.00 -Tunneling No -Undermining/Tunneling No -Circular Undermining No -Wound/Ulcer Outcome Not Healed -Ulcer Cleansing Rinsed/ Irrigated with Saline -Foul Odor after Cleansing No -Bioengineered Tissue No -Bleeding Controlled with Pressure -Treatment Response Procedure Tolerated Well -Debridement - Subq, 1st 20sq cm No #15- L MED LE CLUSTER -Time 10:17 -Correct Patient Yes -Correct Side, Site, Position Yes -Correct Procedure Yes -Procedure Performed Yes -Type of Procedure Debridement -Clinical Debridement Subcutaneous -Tissue Removed Subcutaneous -Post Debridement (cm) - Length 1.3 -Post Debridement (cm) - Width 7.5 -Post Debridement (cm) - Depth 0.1 -Total Square (Post) (cm) 9.75 -Area of Debridement (cm) - Length 1.3 -Area of Debridement (cm) - Width 7.5 -Total Square (Area) (cm) 9.75 -Tunneling No -Undermining/Tunneling No -Circular Undermining No -Wound/Ulcer Outcome Not Healed -Ulcer Cleansing Rinsed/ Irrigated with Saline -Foul Odor after Cleansing No -Bioengineered Tissue No -Debridement - Subq, 1st 20sq cm No #14- R LAT ANKLE -Time 10:17 -Correct Patient Yes -Correct Side, Site, Position Yes -Correct Procedure Yes -Procedure Performed Yes -Type of Procedure Debridement -Clinical Debridement Subcutaneous -Tissue Removed Subcutaneous -Post Debridement (cm) - Length 1.5 -Post Debridement (cm) - Width 5.0 -Post Debridement (cm) - Depth 0.1 -Total Square (Post) (cm) 7.50 -Area of Debridement (cm) - Length 1.5 -Area of Debridement (cm) - Width 5.0 -Total Square (Area) (cm) 7.50 -Tunneling No -Circular Undermining No -Wound/Ulcer Outcome Not Healed -Ulcer Cleansing Rinsed/ Irrigated with Saline -Foul Odor after Cleansing No -Bioengineered Tissue No -Bleeding Controlled with Pressure -Treatment Response Procedure Tolerated Well -Debridement - Subq, 1st 20sq cm Yes -Debridement, SubQ, ea addt'l 20sq cm 2 or part thereof Pain Scale: 0-10 Numeric Is Patient Pain Free? Yes Additional Wound Wound debrided: Right lateral ankle/foot Type of Debridement: Excisional debridement Anesthesia Used: 5% Lidocaine Gel Depth: Down to and including healthy tissue and in the subcutaneous layer Percentage of wound debrided: 100 Instrument Used: 5mm curette Tissue Removed: Slough and devitalized tissue Severity: Fat Layer Exposed Amount of bleeding with debridement: Mild Bleeding Controlled with: Pressure Patient tolerated procedure: Patient tolerated procedure well Additional Wound Wound debrided: Right lower leg (medial) Type of Debridement: Excisional debridement Anesthesia Used: 5% Lidocaine Gel Depth: Down to and including healthy tissue and in the subcutaneous layer Percentage of wound debrided: 100 Instrument Used: 5mm curette Tissue Removed: Slough and devitalized tissue Severity: Fat Layer Exposed Amount of bleeding with debridement: Mild Bleeding Controlled with: Pressure Patient tolerated procedure: Patient tolerated procedure well Assessment/Plan Assessment/Plan (1) Ulcer of right lower extremity with fat layer exposed: CODE(S): L97.912 - Non-pressure chronic ulcer of unspecified part of right lower leg with fat layer exposed (2) Ulcer of left lower extremity with fat layer exposed: CODE(S): L97.922 - Non-pressure chronic 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 Bilateral lower extremity swelling with some worsening. He states that he slept in his recliner more this week. Continue Aquacel extra to all open areas, cover with superabsorbent dressing. Switch to 3M wrap. Change on Monday and Monday at the facility. Hopefully this provides better compression if done right. Had problems with 3M wrap application of the facility previously. Adaptic over right sinclair and lateral foot. Continue use of lymphedema pump twice daily. Leg elevation and compression also very strongly recommended, he voiced understanding. Continue other chronic wound care. His questions were answered and he was advised to call with any further questions or concerns. Follow-up in 1 week. This note was generated with [employer] dictation software. It may contain incorrect words, spelling, and punctuation that were not noted in checking the note before signing.
[2023-10-05 10:02] VITALS: BP 122/68; PULSE 60; RESP 20; TEMP 36.2
--- NOTE | 2023-10-05 10:35 | PN.PCM_ITS ---
History of Present Illness Date of Service: 10/05/23 Chief Complaint: Bilateral lower extremity ulcers History of Wound: Mr. Boles is an 83-year-old currently residing at [facility] who presents due to nonhealing bilateral lower extremity ulceration. He was seen here a few months ago and discharged after he achieved healing. Recommendation was for continued use of his lymphedema pump however he states that this has not been used consistently. Current ulceration has been present for weeks. No chills, fever or otherwise feeling of unwell. Progress of Wound: No new concerns at this time. Bilateral lower extremity edema much better with 3M wraps. No concerns reported regarding this. Objective Data Objective Data Vital Signs: Vital Signs Temp Pulse Resp BP Pulse Ox O2 Del Method 97.2 F L 60 20 H 122/68 H 97 Room Air 10/05/23 10:02 10/05/23 10:02 10/05/23 10:02 10/05/23 10:02 09/28/23 00:23 09/28/23 10:00 Oxygen Delivery Method Room Air Charges/Coding Procedures Integumentary 111xxx-113xx: [id number] Jaye subq tissue 20 sq cm/< Physical Exam Const alert, oriented x3 and no apparent distress General Appearance: cooperative, comfortable and well kempt HEENT normocephalic and head/scalp atraumatic Eyes EOMs intact bilaterally General Eye: normal appearance of both eyes Neck full ROM General: normal visual inspection Resp normal respiratory effort Effort and Inspection: able to speak in complete sentences Extremity General Extremity: edema Skin Wounds: wounds noted Neuro oriented x3, CN's II-XII intact bilaterally, moves all extremities and no focal motor deficits Psych mental status grossly normal, thought process normal, cooperative and affect normal Debridement Note Debridement Note Wound debrided: Left Medial Leg ( Cluster ) Type of Debridement: Excisional debridement Anesthesia Used: 5% Lidocaine Gel Depth: Down to and including healthy tissue and in the subcutaneous layer Percentage of wound debrided: 100 Instrument Used: 5mm curette Tissue Removed: Slough and devitalized tissue Severity: Fat Layer Exposed Amount of bleeding with debridement: Mild Bleeding Controlled with: Pressure Patient tolerated procedure: Patient tolerated procedure well Post-Debridement Measurements and Additional Note: Post-Debridement Measurements/Treatment JANAY - Nurse 1 - General Ulcer Assessment Start: 09/28/23 09:59 Freq: Status: Active Protocol: LINDA Activity Type Activity Date Activity User E-sign Co-sign Detail Recorded Client Recorded Date Recorded By Document 09/28/23 10:00 F Desktop 09/28/23 10:07 [facility] Document 10/05/23 10:02 DL Desktop 10/05/23 10:17 DL 09/28/23 10/05/23 10:00 10:02 WC - Today's Visit Information Type of service Follow-up Visit Follow-up Visit (Physician/MOTOR COACH TOUR OPERATOR (Physician/MOTOR COACH TOUR OPERATOR ) ) Arrival Mode Wheelchair Wheelchair Transfer Assistance Other Manual Transfer Assist (Other) 2 x1 Patient Identification Verified (Name & Yes Yes ) Patient Requires Transmission-Based No Yes Precautions Safety Precautions Fall Prevention Vital Signs Temperature (97.8 F-99.1 F) 98.5 F 97.2 F L Temperature Source Temporal Temporal Pulse Rate (60-100) 66 60 Pulse Location Monitor Monitor Respiratory Rate (12-18) 16 20 H Respiratory rate source Observation Observation Oxygen Delivery Method Room Air Blood Pressure (90/60-120/80) 141/71 H 122/68 H Blood Pressure Mean (mm Hg) 94 86 Source Monitor Monitor Position Sitting Blood Pressure Location Right Forearm History Since Last Visit- (Skip if this is Patient's initial visit) Have you changed medications since your No No last visit? Any new allergies or adverse reactions No No Had a fall/change in ADL's that may No No increase risk of falls Signs or symptoms of abuse and/or No No neglect since last visit Have you been in the hospital since your No last visit? Has dressing in place as prescribed Yes Yes Has compression in place as prescribed Yes Yes Has offloadiing in place as prescribed N/A N/A Experienced any changes in pain level or No No management Left Footwear Custom Shoe Right Footwear Custom Shoe Pain Scale: 0-10 Numeric Is Patient Pain Free? Yes Yes - Nurse 1 - General Ulcer Measurement Start: 09/28/23 09:59 Freq: Status: Active Protocol: Activity Type Activity Date Activity User E-sign Co-sign Detail Recorded Client Recorded Date Recorded By Document 09/28/23 10:00 [facility] Desktop 09/28/23 10:07 [facility] Document 10/05/23 10:02 DL Desktop 10/05/23 10:17 DL 09/28/23 10/05/23 10:00 10:02 Wound Center Nurse 1 #16 Right Medial Superior cluster -Combined with other wound No -Current Size (cm) - Length 7 1.4 -Current Size (cm) - Width 4 8.1 -Current Size (cm) - Depth 0.1 0.1 -Total Square Cm 28 11.34 -Date of Last Picture (Recall this 09/28/23 field) -Photo Taken Yes -Epithelialization Small 1-33% -Tunneling No -Undermining/Tunneling No -Circular Undermining No -Exudate Amt Medium Medium -Exudate Type Serosanguineous Serosanguineous -Wound Margin Distinct, Distinct, Outline Outline Attached Attached -Granulation Amt Large (67-100%) Large (67-100%) -Granulation Quality Red Pale,[place] -Slough/Fibrin Yes -Necrosis Amt Small (1-33%) Small (1-33%) -Necrotic Tissue Type Adherent Slough Adherent Slough -Structure Exposed N/A -Texture ([place]-wound Skin Appearance) Assessed, Scarring Scarring -Moisture ([place]-wound Skin Appearance) Assessed,Dry/ Dry/Scaly Scaly -Color ([place]-wound Skin Appearance) Assessed Hemosiderin Staining -Temperature ([place]-wound Skin No Abnormality No Abnormality Appearance) (Pt Warm) (Pt Warm) -Tenderness on Palpation ([place]-wound No No Skin Appearance) -Ulcer Cleansing Soap and Water Soap and Water -Foul Odor after Cleansing No No -Anesthetic Used 5% Lidocaine 5% Lidocaine Gel Gel #15- L MED LE CLUSTER -Combined with other wound No -Current Size (cm) - Length 1 1.1 -Current Size (cm) - Width 3.4 3.5 -Current Size (cm) - Depth 0.1 0.1 -Total Square Cm 3.4 3.85 -Date of Last Picture (Recall this 09/28/23 field) -Photo Taken Yes -Epithelialization Small 1-33% -Tunneling No -Undermining/Tunneling No -Circular Undermining No -Exudate Amt Medium Medium -Exudate Type Serosanguineous Serosanguineous -Wound Margin Distinct, Distinct, Outline Outline Attached Attached -Granulation Amt Large (67-100%) Large (67-100%) -Granulation Quality Red [place] -Slough/Fibrin Yes -Necrosis Amt Small (1-33%) Small (1-33%) -Necrotic Tissue Type Adherent Slough Adherent Slough -Structure Exposed N/A -Texture ([place]-wound Skin Appearance) Assessed, Scarring Scarring -Moisture ([place]-wound Skin Appearance) Assessed,Dry/ Dry/Scaly Scaly -Color ([place]-wound Skin Appearance) Assessed Hemosiderin Staining -Temperature ([place]-wound Skin No Abnormality No Abnormality Appearance) (Pt Warm) (Pt Warm) -Tenderness on Palpation ([place]-wound No No Skin Appearance) -Ulcer Cleansing Soap and Water Soap and Water -Foul Odor after Cleansing No No -Anesthetic Used 5% Lidocaine 5% Lidocaine Gel Gel #14- R LAT ANKLE -Combined with other wound No -Current Size (cm) - Length 1 1.5 -Current Size (cm) - Width 7 8.2 -Current Size (cm) - Depth 0.1 0.1 -Total Square Cm 7 12.30 -Date of Last Picture (Recall this 09/28/23 field) -Photo Taken Yes -Epithelialization Small 1-33% -Tunneling No -Undermining/Tunneling No -Circular Undermining No -Exudate Amt Medium Small -Exudate Type Serosanguineous Serosanguineous -Wound Margin Distinct, Indistinct, Non Outline -Visible Attached -Granulation Amt Medium (34-66%) Large (67-100%) -Granulation Quality [place] -Slough/Fibrin Yes -Necrosis Amt Small (1-33%) Small (1-33%) -Necrotic Tissue Type Adherent Slough Adherent Slough -Structure Exposed N/A -Texture ([place]-wound Skin Appearance) Assessed, Scarring Scarring -Moisture ([place]-wound Skin Appearance) Assessed,Dry/ Dry/Scaly Scaly -Color ([place]-wound Skin Appearance) Assessed Hemosiderin Staining -Temperature ([place]-wound Skin No Abnormality No Abnormality Appearance) (Pt Warm) (Pt Warm) -Tenderness on Palpation ([place]-wound No No Skin Appearance) -Ulcer Cleansing Soap and Water -Foul Odor after Cleansing No -Anesthetic Used 5% Lidocaine 5% Lidocaine Gel Gel Lower Limb Edema Present Yes Right Calf (cm) 43.2 39 Right Ankle (cm) 33.5 32.3 Left Calf (cm) 41.5 39.5 Left Ankle (cm) 34 31.4 WC - Nurse 2 - General Ulcer CM Notes Start: 09/28/23 09:59 Freq: Status: Active Protocol: Activity Type Activity Date Activity User E-sign Co-sign Detail Recorded Client Recorded Date Recorded By Document 09/28/23 10:16 Desktop 09/28/23 10:30 09/28/23 10:16 Wound Center Nurse 2 #16 Right Medial Superior cluster -Time 10:17 -Correct Patient Yes -Correct Side, Site, Position Yes -Correct Procedure Yes -Procedure Performed Yes -Type of Procedure Debridement -Clinical Debridement Subcutaneous -Tissue Removed Subcutaneous -Post Debridement (cm) - Length 8.0 -Post Debridement (cm) - Width 2.0 -Post Debridement (cm) - Depth 0.1 -Total Square (Post) (cm) 16.00 -Area of Debridement (cm) - Length 8.0 -Area of Debridement (cm) - Width 2.0 -Total Square (Area) (cm) 16.00 -Tunneling No -Undermining/Tunneling No -Circular Undermining No -Wound/Ulcer Outcome Not Healed -Ulcer Cleansing Rinsed/ Irrigated with Saline -Foul Odor after Cleansing No -Bioengineered Tissue No -Bleeding Controlled with Pressure -Treatment Response Procedure Tolerated Well -Debridement - Subq, 1st 20sq cm No #15- L MED LE CLUSTER -Time 10:17 -Correct Patient Yes -Correct Side, Site, Position Yes -Correct Procedure Yes -Procedure Performed Yes -Type of Procedure Debridement -Clinical Debridement Subcutaneous -Tissue Removed Subcutaneous -Post Debridement (cm) - Length 1.3 -Post Debridement (cm) - Width 7.5 -Post Debridement (cm) - Depth 0.1 -Total Square (Post) (cm) 9.75 -Area of Debridement (cm) - Length 1.3 -Area of Debridement (cm) - Width 7.5 -Total Square (Area) (cm) 9.75 -Tunneling No -Undermining/Tunneling No -Circular Undermining No -Wound/Ulcer Outcome Not Healed -Ulcer Cleansing Rinsed/ Irrigated with Saline -Foul Odor after Cleansing No -Bioengineered Tissue No -Debridement - Subq, 1st 20sq cm No #14- R LAT ANKLE -Time 10:17 -Correct Patient Yes -Correct Side, Site, Position Yes -Correct Procedure Yes -Procedure Performed Yes -Type of Procedure Debridement -Clinical Debridement Subcutaneous -Tissue Removed Subcutaneous -Post Debridement (cm) - Length 1.5 -Post Debridement (cm) - Width 5.0 -Post Debridement (cm) - Depth 0.1 -Total Square (Post) (cm) 7.50 -Area of Debridement (cm) - Length 1.5 -Area of Debridement (cm) - Width 5.0 -Total Square (Area) (cm) 7.50 -Tunneling No -Circular Undermining No -Wound/Ulcer Outcome Not Healed -Ulcer Cleansing Rinsed/ Irrigated with Saline -Foul Odor after Cleansing No -Bioengineered Tissue No -Bleeding Controlled with Pressure -Treatment Response Procedure Tolerated Well -Debridement - Subq, 1st 20sq cm Yes -Debridement, SubQ, ea addt'l 20sq cm 2 or part thereof Pain Scale: 0-10 Numeric Is Patient Pain Free? Yes - Nurse 3 - General Ulcer D/C NN Start: 09/28/23 09:59 Freq: Status: Active Protocol: Activity Type Activity Date Activity User E-sign Co-sign Detail Recorded Client Recorded Date Recorded By Document 09/28/23 10:32 [id number] 09/28/23 10:47 09/28/23 10:32 Wound Care Center Nurse 3 #16 Right Medial Superior cluster -Ulcer Cleansing Not Cleansed -Foul Odor after Cleansing No -Primary Dressing Applied Aquacel Extra, Other -Other Dressing abd -Primary Dressing Covered/Secured with Dry Gauze -Aquacel Extra 1 #15- L MED LE CLUSTER -Ulcer Cleansing Not Cleansed -Foul Odor after Cleansing No -Negative Pressure Wound Therapy N/A -Primary Dressing Applied Aquacel Extra, Other -Other Dressing ABD -Primary Dressing Covered/Secured with Dry Gauze -Aquacel Extra 1 #14- R LAT ANKLE -Ulcer Cleansing Not Cleansed -Foul Odor after Cleansing No -Primary Dressing Applied Other -Other Dressing abd -Primary Dressing Covered/Secured with Dry Gauze Left -Multi-Layered Wrap Application Multi-Layer Comp - Bilat ($ ) -Other 3 SETS SENT Pain Scale: 0-10 Numeric Is Patient Pain Free? Yes - Visit Discharge Discharge Condition Stable Ambulatory Status Wheelchair Transportation Private Auto Medication Reconcilliation completed & Yes provided to patient/care provider Clinical Summary of Care Provided Yes Additional Wound Wound debrided: Right lateral ankle/foot Type of Debridement: Excisional debridement Anesthesia Used: 5% Lidocaine Gel Depth: Down to and including healthy tissue and in the subcutaneous layer Percentage of wound debrided: 100 Instrument Used: 5mm curette Tissue Removed: Slough and devitalized tissue Severity: Fat Layer Exposed Amount of bleeding with debridement: Mild Bleeding Controlled with: Pressure Patient tolerated procedure: Patient tolerated procedure well Additional Wound Wound debrided: Right lower leg (medial sinclair) Type of Debridement: Excisional debridement Anesthesia Used: 5% Lidocaine Gel Depth: Down to and including healthy tissue and in the subcutaneous layer Percentage of wound debrided: 100 Instrument Used: 5mm curette Tissue Removed: Slough and devitalized tissue Severity: Fat Layer Exposed Amount of bleeding with debridement: Mild Bleeding Controlled with: Pressure Patient tolerated procedure: Patient tolerated procedure well Additional Wound Wound debrided: Right Leg ( Superior Sinclair ) Type of Debridement: Excisional debridement Anesthesia Used: 4% Lidocaine Solution Depth: Down to and including healthy tissue and in the subcutaneous layer Percentage of wound debrided: 100 Instrument Used: 5mm curette Tissue Removed: Slough and devitalized tissue Severity: Fat Layer Exposed Amount of bleeding with debridement: Mild Bleeding Controlled with: Pressure Patient tolerated procedure: Patient tolerated procedure well Assessment/Plan Assessment/Plan (1) Ulcer of right lower extremity with fat layer exposed: CODE(S): L97.912 - Non-pressure chronic ulcer of unspecified part of right lower leg with fat layer exposed (2) Ulcer of left lower extremity with fat layer exposed: CODE(S): L97.922 - Non-pressure chronic 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 Bilateral lower extremity edema with a lot of improvement this week. Continue Aquacel extra to all open areas, cover with superabsorbent dressing. Continue 3M wraps. Change dressing and wrap on Monday and Monday at the facility. Continue use of lymphedema pump twice daily. Leg elevation and compression also very strongly recommended, he voiced understanding. Continue other chronic wound care. His questions were answered and he was advised to call with any further questions or concerns. Follow-up in 1 week. This note was generated with [employer] software. It may contain incorrect words, spelling, and punctuation that were not noted in checking the note before signing.
[2023-10-12 10:42] VITALS: BP 119/62; PULSE 68; RESP 16; TEMP 37.1
--- NOTE | 2023-10-12 12:17 | PCM.WC.PN ---
History of Present Illness Date of Service: 10/12/23 Chief Complaint: Bilateral lower extremity ulcers History of Wound: Mr. Boles is an 83-year-old currently residing at [facility] who presents due to nonhealing bilateral lower extremity ulceration. He was seen here a few months ago and discharged after he achieved healing. Recommendation was for continued use of his lymphedema pump however he states that this has not been used consistently. Current ulceration has been present for weeks. No chills, fever or otherwise feeling of unwell. Progress of Wound: Continues to do better with the 3M wrap edema noel. Some ulcers with improvement and others with no improvement. He denies any acute concerns at this time. Objective Data Objective Data Vital Signs: Vital Signs Temp Pulse Resp BP Pulse Ox O2 Del Method 98.7 F 68 16 119/62 97 Room Air 10/12/23 10:42 10/12/23 10:42 10/12/23 10:42 10/12/23 10:42 09/28/23 00:23 10/12/23 10:42 Oxygen Delivery Method Room Air Charges/Coding Procedures Integumentary [id number]: [id number] Jaye subq tissue 20 sq cm/< Add On Codes: [id number] Jaye subq tissue add-on (x1. Additional square centimeter debrided, please refer to clinical note.) Physical Exam Const alert, oriented x3 and no apparent distress General Appearance: cooperative, comfortable and well kempt HEENT normocephalic and head/scalp atraumatic Eyes EOMs intact bilaterally General Eye: normal appearance of both eyes Neck full ROM General: normal visual inspection Resp normal respiratory effort Effort and Inspection: able to speak in complete sentences Extremity General Extremity: edema Skin Wounds: wounds noted Neuro oriented x3, CN's II-XII intact bilaterally, moves all extremities and no focal motor deficits Psych mental status grossly normal, thought process normal, cooperative and affect normal Debridement Note Debridement Note Wound debrided: Left Medial Leg ( Cluster ) Type of Debridement: Excisional debridement Anesthesia Used: 5% Lidocaine Gel Depth: Down to and including healthy tissue and in the subcutaneous layer Percentage of wound debrided: 100 Instrument Used: 5mm curette Tissue Removed: Slough and devitalized tissue Severity: Fat Layer Exposed Amount of bleeding with debridement: Mild Bleeding Controlled with: Pressure Patient tolerated procedure: Patient tolerated procedure well Post-Debridement Measurements and Additional Note: Post-Debridement Measurements/Treatment - Nurse 1 - General Ulcer Assessment Start: 09/28/23 09:59 Freq: Status: Active Protocol: LINDA Activity Type Activity Date Activity User E-sign Co-sign Detail Recorded Client Recorded Date Recorded By Document 09/28/23 10:00 BMF Desktop 09/28/23 10:07 BMF Document 10/05/23 10:02 DL Desktop 10/05/23 10:17 DL Document 10/12/23 10:42 BMF Desktop 10/12/23 10:55 BMF 09/28/23 10/05/23 10/12/23 10:00 10:02 10:42 - Today's Visit Information Type of service Follow-up Visit Follow-up Visit Follow-up Visit (Physician/HYDRAULIC TESTER (Physician/HYDRAULIC TESTER (Physician/HYDRAULIC TESTER ) ) ) Arrival Mode Wheelchair Wheelchair Wheelchair Transfer Assistance Other Manual None Transfer Assist (Other) 2 x1 Patient Identification Verified (Name & Yes Yes Yes ) Patient Requires Transmission-Based No Yes No Precautions Safety Precautions Fall Prevention Vital Signs Temperature (97.8 F-99.1 F) 98.5 F 97.2 F L 98.7 F Temperature Source Temporal Temporal Temporal Pulse Rate (60-100) 66 60 68 Pulse Location Monitor Monitor Monitor Respiratory Rate (12-18) 16 20 H 16 Respiratory rate source Observation Observation Observation Oxygen Delivery Method Room Air Room Air Blood Pressure (90/60-120/80) 141/71 H 122/68 H 119/62 Blood Pressure Mean (mm Hg) 94 86 81 Source Monitor Monitor Monitor Position Sitting Sitting Blood Pressure Location Right Forearm Right Forearm History Since Last Visit- (Skip if this is Patient's initial visit) Have you changed medications since your No No No last visit? Any new allergies or adverse reactions No No No Had a fall/change in ADL's that may No No No increase risk of falls Signs or symptoms of abuse and/or No No No neglect since last visit Have you been in the hospital since your No No last visit? Has dressing in place as prescribed Yes Yes Yes Has compression in place as prescribed Yes Yes Yes Has offloadiing in place as prescribed N/A N/A N/A Experienced any changes in pain level or No No No management Left Footwear Custom Shoe Custom Shoe Right Footwear Custom Shoe Custom Shoe Pain Scale: 0-10 Numeric Is Patient Pain Free? Yes Yes Yes WC - Nurse 1 - General Ulcer Measurement Start: 09/28/23 09:59 Freq: Status: Active Protocol: Activity Type Activity Date Activity User E-sign Co-sign Detail Recorded Client Recorded Date Recorded By Document 09/28/23 10:00 BMF Desktop 09/28/23 10:07 BMF Document 10/05/23 10:02 DL Desktop 10/05/23 10:17 DL Document 10/12/23 10:42 BMF Desktop 10/12/23 10:55 BMF 09/28/23 10/05/23 10/12/23 10:00 10:02 10:42 Wound Center Nurse 1 #18 R Medial ankle -Combined with other wound No -Current Size (cm) - Length 1.2 -Current Size (cm) - Width 3 -Current Size (cm) - Depth 0.2 -Total Square Cm 3.6 -Date of Last Picture (Recall this 10/12/23 field) -Photo Taken Yes -Epithelialization Small 1-33% -Tunneling No -Undermining/Tunneling No -Circular Undermining No -Exudate Amt Medium -Exudate Type Serous -Wound Margin Flat & Intact -Granulation Amt Large (67-100%) -Granulation Quality [place] -Slough/Fibrin Yes -Necrosis Amt Small (1-33%) -Necrotic Tissue Type Adherent Slough -Texture ([place]-wound Skin Appearance) Scarring -Moisture ([place]-wound Skin Appearance) Assessed,Dry/ Scaly -Color ([place]-wound Skin Appearance) Assessed -Temperature ([place]wound Skin No Abnormality Appearance) (Pt Warm) -Tenderness on Palpation ([place]-wound No Skin Appearance) -Ulcer Cleansing Soap and Water -Foul Odor after Cleansing No -Anesthetic Used 5% Lidocaine Gel #16 Right Medial Superior cluster -Combined with other wound No No -Current Size (cm) - Length 7 1.4 2.2 -Current Size (cm) - Width 4 8.1 2 -Current Size (cm) - Depth 0.1 0.1 0.2 -Total Square Cm 28 11.34 4.4 -Date of Last Picture (Recall this 09/28/23 10/12/23 field) -Photo Taken Yes Yes -Epithelialization Small 1-33% Small 1-33% -Tunneling No No -Undermining/Tunneling No No -Circular Undermining No No -Exudate Amt Medium Medium Medium -Exudate Type Serosanguineous Serosanguineous Serous -Wound Margin Distinct, Distinct, Distinct, Outline Outline Outline Attached Attached Attached -Granulation Amt Large (67-100%) Large (67-100%) Large (67-100%) -Granulation Quality Red Pale,[place] Red -Slough/Fibrin Yes Yes -Necrosis Amt Small (1-33%) Small (1-33%) Small (1-33%) -Necrotic Tissue Type Adherent Slough Adherent Slough Adherent Slough -Structure Exposed N/A -Texture ([place]wound Skin Appearance) Assessed, Scarring Assessed, Scarring Scarring -Moisture ([place]-wound Skin Appearance) Assessed,Dry/ Dry/Scaly Assessed,Dry/ Scaly Scaly -Color ([place]wound Skin Appearance) Assessed Hemosiderin Assessed Staining -Temperature ([place]wound Skin No Abnormality No Abnormality No Abnormality Appearance) (Pt Warm) (Pt Warm) (Pt Warm) -Tenderness on Palpation ([place]-wound No No No Skin Appearance) -Ulcer Cleansing Soap and Water Soap and Water Soap and Water -Foul Odor after Cleansing No No No -Anesthetic Used 5% Lidocaine 5% Lidocaine 5% Lidocaine Gel Gel Gel #15- L MED LE CLUSTER -Combined with other wound No No -Current Size (cm) - Length 1 1.1 0.8 -Current Size (cm) - Width 3.4 3.5 1.5 -Current Size (cm) - Depth 0.1 0.1 0.2 -Total Square Cm 3.4 3.85 1.20 -Date of Last Picture (Recall this 09/28/23 10/12/23 field) -Photo Taken Yes Yes -Epithelialization Small 1-33% Small 1-33% -Tunneling No No -Undermining/Tunneling No No -Circular Undermining No No -Exudate Amt Medium Medium Medium -Exudate Type Serosanguineous Serosanguineous Serous -Wound Margin Distinct, Distinct, Distinct, Outline Outline Outline Attached Attached Attached -Granulation Amt Large (67-100%) Large (67-100%) Large (67-100%) -Granulation Quality Red [place] Red -Slough/Fibrin Yes Yes -Necrosis Amt Small (1-33%) Small (1-33%) Small (1-33%) -Necrotic Tissue Type Adherent Slough Adherent Slough Adherent Slough -Structure Exposed N/A -Texture ([place]wound Skin Appearance) Assessed, Scarring Assessed, Scarring Scarring -Moisture ([place]wound Skin Appearance) Assessed,Dry/ Dry/Scaly Assessed,Dry/ Scaly Scaly -Color ([place]wound Skin Appearance) Assessed Hemosiderin Assessed Staining -Temperature ([place]wound Skin No Abnormality No Abnormality No Abnormality Appearance) (Pt Warm) (Pt Warm) (Pt Warm) -Tenderness on Palpation ([place]-wound No No Skin Appearance) -Ulcer Cleansing Soap and Water Soap and Water Soap and Water -Foul Odor after Cleansing No No No -Anesthetic Used 5% Lidocaine 5% Lidocaine 5% Lidocaine Gel Gel Gel #14- R LAT ANKLE -Combined with other wound No No -Current Size (cm) - Length 1 1.5 4 -Current Size (cm) - Width 7 8.2 1.5 -Current Size (cm) - Depth 0.1 0.1 0.1 -Total Square Cm 7 12.30 6.0 -Date of Last Picture (Recall this 09/28/23 10/12/23 field) -Photo Taken Yes Yes -Epithelialization Small 1-33% Small 1-33% -Tunneling No No -Undermining/Tunneling No No -Circular Undermining No No -Exudate Amt Medium Small Medium -Exudate Type Serosanguineous Serosanguineous Serous -Wound Margin Distinct, Indistinct, Non Distinct, Outline -Visible Outline Attached Attached -Granulation Amt Medium (34-66%) Large (67-100%) Medium (34-66%) -Granulation Quality [place] -Slough/Fibrin Yes Yes -Necrosis Amt Small (1-33%) Small (1-33%) Medium (34-66%) -Necrotic Tissue Type Adherent Slough Adherent Slough Adherent Slough -Structure Exposed N/A -Texture ([place]wound Skin Appearance) Assessed, Scarring Assessed, Scarring Scarring -Moisture ([place]-wound Skin Appearance) Assessed,Dry/ Dry/Scaly Assessed Scaly -Color ([place]-wound Skin Appearance) Assessed Hemosiderin Assessed Staining -Temperature ([place]-wound Skin No Abnormality No Abnormality No Abnormality Appearance) (Pt Warm) (Pt Warm) (Pt Warm) -Tenderness on Palpation ([place]-wound No No No Skin Appearance) -Ulcer Cleansing Soap and Water Soap and Water -Foul Odor after Cleansing No No -Anesthetic Used 5% Lidocaine 5% Lidocaine 5% Lidocaine Gel Gel Gel Lower Limb Edema Present Yes Yes Right Calf (cm) 43.2 39 39.2 Right Ankle (cm) 33.5 32.3 33 Left Calf (cm) 41.5 39.5 39 Left Ankle (cm) 34 31.4 31 WC - Nurse 2 - General Ulcer CM Notes Start: 09/28/23 09:59 Freq: Status: Active Protocol: Activity Type Activity Date Activity User E-sign Co-sign Detail Recorded Client Recorded Date Recorded By Document 09/28/23 10:16 GM Desktop 09/28/23 10:30 GM Document 10/05/23 10:24 GM Desktop 10/05/23 10:42 GM Document 10/12/23 11:00 GM Desktop 10/12/23 11:25 GM 09/28/23 10/05/23 10/12/23 10:16 10:24 11:00 Wound Center Nurse 2 #17 Right sinclair -Time 10:37 -Correct Patient Yes -Correct Side, Site, Position Yes -Correct Procedure Yes -Procedure Performed Yes -Type of Procedure Debridement -Clinical Debridement Subcutaneous -Tissue Removed Subcutaneous -Post Debridement (cm) - Length 1.4 -Post Debridement (cm) - Width 2.0 -Post Debridement (cm) - Depth 0.1 -Total Square (Post) (cm) 2.80 -Area of Debridement (cm) - Length 1.4 -Area of Debridement (cm) - Width 2.0 -Total Square (Area) (cm) 2.80 -Tunneling No -Undermining/Tunneling No -Circular Undermining No -Wound/Ulcer Outcome Not Healed -Ulcer Cleansing Rinsed/ Irrigated with Saline -Foul Odor after Cleansing No -Bioengineered Tissue No -Bleeding Controlled with Pressure -Treatment Response Procedure Tolerated Well -Debridement - Subq, 1st 20sq cm No #18 R Medial ankle -Time 10:38 11:20 -Correct Patient Yes Yes -Correct Side, Site, Position Yes Yes -Correct Procedure Yes Yes -Procedure Performed Yes Yes -Type of Procedure Debridement Debridement -Clinical Debridement Subcutaneous Subcutaneous -Tissue Removed Subcutaneous Subcutaneous -Post Debridement (cm) - Length 1.3 1.7 -Post Debridement (cm) - Width 2.0 2.5 -Post Debridement (cm) - Depth 0.1 0.1 -Total Square (Post) (cm) 2.60 4.25 -Area of Debridement (cm) - Length 1.3 1.7 -Area of Debridement (cm) - Width 2.0 2.5 -Total Square (Area) (cm) 2.60 4.25 -Tunneling No No -Undermining/Tunneling No No -Circular Undermining No No -Wound/Ulcer Outcome Not Healed Not Healed -Ulcer Cleansing Rinsed/ Rinsed/ Irrigated with Irrigated with Saline Saline -Foul Odor after Cleansing No No -Bioengineered Tissue No No -Bleeding Controlled with Pressure Pressure -Treatment Response Procedure Procedure Tolerated Well Tolerated Well -Debridement - Subq, 1st 20sq cm Yes No -Debridement, SubQ, ea addt'l 20sq cm 1 or part thereof #16 Right Medial Superior cluster -Time 10:17 10:24 11:23 -Correct Patient Yes Yes Yes -Correct Side, Site, Position Yes Yes Yes -Correct Procedure Yes Yes Yes -Procedure Performed Yes Yes Yes -Type of Procedure Debridement Debridement Debridement -Clinical Debridement Subcutaneous Subcutaneous Subcutaneous -Tissue Removed Subcutaneous Subcutaneous Subcutaneous -Post Debridement (cm) - Length 8.0 2.5 2.8 -Post Debridement (cm) - Width 2.0 1.0 1.5 -Post Debridement (cm) - Depth 0.1 0.1 0.2 -Total Square (Post) (cm) 16.00 2.50 4.20 -Area of Debridement (cm) - Length 8.0 2.5 2.8 -Area of Debridement (cm) - Width 2.0 1.0 1.5 -Total Square (Area) (cm) 16.00 2.50 4.20 -Tunneling No No No -Undermining/Tunneling No No No -Circular Undermining No No No -Wound/Ulcer Outcome Not Healed Not Healed Not Healed -Ulcer Cleansing Rinsed/ Rinsed/ Rinsed/ Irrigated with Irrigated with Irrigated with Saline Saline Saline -Foul Odor after Cleansing No No No -Bioengineered Tissue No No -Bleeding Controlled with Pressure Pressure Pressure -Treatment Response Procedure Procedure Procedure Tolerated Well Tolerated Well Tolerated Well -Debridement - Subq, 1st 20sq cm No No Yes -Debridement, SubQ, ea addt'l 20sq cm 1 or part thereof #15- L MED LE CLUSTER -Time 10:17 10:25 11:23 -Correct Patient Yes Yes Yes -Correct Side, Site, Position Yes Yes Yes -Correct Procedure Yes Yes Yes -Procedure Performed Yes Yes Yes -Type of Procedure Debridement Debridement Debridement -Clinical Debridement Subcutaneous Subcutaneous Subcutaneous -Tissue Removed Subcutaneous Subcutaneous Subcutaneous -Post Debridement (cm) - Length 1.3 0.8 1 -Post Debridement (cm) - Width 7.5 3.5 3 -Post Debridement (cm) - Depth 0.1 0.1 0.1 -Total Square (Post) (cm) 9.75 2.80 3 -Area of Debridement (cm) - Length 1.3 0.8 1 -Area of Debridement (cm) - Width 7.5 3.5 3 -Total Square (Area) (cm) 9.75 2.80 3 -Tunneling No No No -Undermining/Tunneling No No No -Circular Undermining No No No -Wound/Ulcer Outcome Not Healed Not Healed Not Healed -Ulcer Cleansing Rinsed/ Not Cleansed Rinsed/ Irrigated with Irrigated with Saline Saline -Foul Odor after Cleansing No No No -Bioengineered Tissue No No No -Bleeding Controlled with Pressure Pressure -Treatment Response Procedure Procedure Tolerated Well Tolerated Well -Debridement - Subq, 1st 20sq cm No No No #14- R LAT ANKLE -Time 10:17 10:26 11:22 -Correct Patient Yes Yes Yes -Correct Side, Site, Position Yes Yes Yes -Correct Procedure Yes Yes Yes -Procedure Performed Yes Yes Yes -Type of Procedure Debridement Debridement Debridement -Clinical Debridement Subcutaneous Subcutaneous Subcutaneous -Tissue Removed Subcutaneous Subcutaneous Subcutaneous -Post Debridement (cm) - Length 1.5 2.0 1.3 -Post Debridement (cm) - Width 5.0 8.5 8.5 -Post Debridement (cm) - Depth 0.1 0.1 0.1 -Total Square (Post) (cm) 7.50 17.00 11.05 -Area of Debridement (cm) - Length 1.5 2.0 1.3 -Area of Debridement (cm) - Width 5.0 8.5 8.5 -Total Square (Area) (cm) 7.50 17.00 11.05 -Tunneling No No No -Undermining/Tunneling No No -Circular Undermining No No No -Wound/Ulcer Outcome Not Healed Not Healed Not Healed -Ulcer Cleansing Rinsed/ Rinsed/ Rinsed/ Irrigated with Irrigated with Irrigated with Saline Saline Saline -Foul Odor after Cleansing No No No -Bioengineered Tissue No No -Bleeding Controlled with Pressure Pressure Pressure -Treatment Response Procedure Procedure Procedure Tolerated Well Tolerated Well Tolerated Well -Debridement - Subq, 1st 20sq cm Yes No No -Debridement, SubQ, ea addt'l 20sq cm 2 or part thereof Pain Scale: 0-10 Numeric Is Patient Pain Free? Yes Yes Yes - Nurse 3 - General Ulcer D/C NN Start: 09/28/23 09:59 Freq: Status: Active Protocol: Activity Type Activity Date Activity User E-sign Co-sign Detail Recorded Client Recorded Date Recorded By Document 09/28/23 10:32 [id number] 09/28/23 10:47 Document 10/05/23 11:07 DL Desktop 10/05/23 11:11 DL Document 10/12/23 11:42 BMF Desktop 10/12/23 11:46 BMF 09/28/23 10/05/23 10/12/23 10:32 11:07 11:42 Wound Care Center Nurse 3 #17 Right sinclair -Ulcer Cleansing Rinsed/ Irrigated with Saline -Foul Odor after Cleansing No -Other Dressing aqaucel ex -Primary Dressing Covered/Secured with Dry Gauze & Roll Gauze, Secured with Tape #18 R Medial ankle -Ulcer Cleansing Rinsed/ Rinsed/ Irrigated with Irrigated with Saline Saline -Foul Odor after Cleansing No No -Primary Dressing Applied Aquacel Extra Aquacel Extra, Fibracol Plus 4x4 -Other Dressing per rb rn -Primary Dressing Covered/Secured with Dry Gauze & Roll Gauze, Secured with Tape -Aquacel Extra 1 1 -Fibracol Plus 4x4 1 #16 Right Medial Superior cluster -Ulcer Cleansing Not Cleansed Rinsed/ Rinsed/ Irrigated with Irrigated with Saline Saline -Foul Odor after Cleansing No No No -Primary Dressing Applied Aquacel Extra, Aquacel Extra, Other Fibracol Plus 4x4 -Other Dressing abd aquacel ex per rb rn -Primary Dressing Covered/Secured with Dry Gauze Dry Gauze & Roll Gauze, Secured with Tape -Aquacel Extra 1 0 -Fibracol Plus 4x4 0 #15- L MED LE CLUSTER -Ulcer Cleansing Not Cleansed Rinsed/ Rinsed/ Irrigated with Irrigated with Saline Saline -Foul Odor after Cleansing No No No -Negative Pressure Wound Therapy N/A -Primary Dressing Applied Aquacel Extra, Aquacel Extra, Other Fibracol Plus 4x4 -Other Dressing ABD aquacel ex per rb rn -Primary Dressing Covered/Secured with Dry Gauze Dry Gauze & Roll Gauze, Secured with Tape -Aquacel Extra 1 0 -Fibracol Plus 4x4 0 #14- R LAT ANKLE -Ulcer Cleansing Not Cleansed Rinsed/ Rinsed/ Irrigated with Irrigated with Saline Saline -Foul Odor after Cleansing No No No -Primary Dressing Applied Other Aquacel Extra, Fibracol Plus 4x4 -Other Dressing abd aquacel ex per rb rn -Primary Dressing Covered/Secured with Dry Gauze Dry Gauze & Roll Gauze -Aquacel Extra 0 -Fibracol Plus 4x4 0 radha -Multi-Layered Wrap Application Multi-Layer Multi-Layer Comp - Bilat ($ Comp - Bilat ($ ) ) -Other per rb rn Left -Multi-Layered Wrap Application Multi-Layer Comp - Bilat ($ ) -Other 3 SETS SENT used 3 for his long legs; applied per rb rn Treatment Response Procedure Procedure Tolerated Well Tolerated Well Pain Scale: 0-10 Numeric Is Patient Pain Free? Yes Yes Yes WC - Visit Discharge Discharge Condition Stable Stable Stable Ambulatory Status Wheelchair Ambulatory, Wheelchair Walker, Wheelchair Transportation Private Auto ecf Medication Reconcilliation completed & Yes provided to patient/care provider Clinical Summary of Care Provided Yes Facility Type Intermediate Care Intermediate Care Facility Facility Orders Sent Yes Additional Wound Wound debrided: Right lateral ankle/foot Type of Debridement: Excisional debridement Anesthesia Used: 5% Lidocaine Gel Depth: Down to and including healthy tissue and in the subcutaneous layer Percentage of wound debrided: 100 Instrument Used: 5mm curette Tissue Removed: Slough and devitalized tissue Severity: Fat Layer Exposed Amount of bleeding with debridement: Mild Bleeding Controlled with: Pressure Patient tolerated procedure: Patient tolerated procedure well Additional Wound Wound debrided: Right medial foot/ankle Type of Debridement: Excisional debridement Anesthesia Used: 5% Lidocaine Gel Depth: Down to and including healthy tissue and in the subcutaneous layer Percentage of wound debrided: 100 Instrument Used: 5mm curette Tissue Removed: Slough and devitalized tissue Severity: Fat Layer Exposed Amount of bleeding with debridement: Mild Bleeding Controlled with: Pressure Additional Wound Wound debrided: Right Sinclair ( Superior ) Type of Debridement: Excisional debridement Anesthesia Used: 5% Lidocaine Gel Depth: in the subcutaneous layer Percentage of wound debrided: 100 Instrument Used: 5mm curette Severity: Fat Layer Exposed Amount of bleeding with debridement: Mild Bleeding Controlled with: Pressure Patient tolerated procedure: Patient tolerated procedure well Assessment/Plan Assessment/Plan (1) Ulcer of right lower extremity with fat layer exposed: CODE(S): L97.912 - Non-pressure chronic ulcer of unspecified part of right lower leg with fat layer exposed (2) Ulcer of left lower extremity with fat layer exposed: CODE(S): L97.922 - Non-pressure chronic 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 Continues to show better edema control with the 3M wrap. Right medial sinclair is healed, left lower extremity cluster with some improvement however, right superior sinclair with increased depth and drainage. Cultures taken, will review. Switch to Fibracol to all ulcers, Aquacel extra over top and cover with superabsorbent dressing. Continue 3M wraps. Change dressing and wrap on Monday and Monday at the facility. Continue use of lymphedema pump twice daily. Leg elevation and compression also very strongly recommended, he voiced understanding. Continue other chronic wound care. His questions were answered and he was advised to call with any further questions or concerns. Follow-up in 1 week. This note was generated with [employer] dictation software. It may contain incorrect words, spelling, and punctuation that were not noted in checking the note before signing.
[2023-10-19 09:48] VITALS: BP 123/64; PULSE 72; RESP 16; TEMP 36.2
--- NOTE | 2023-10-19 11:55 | PCM.WC.PN ---
History of Present Illness Date of Service: 10/19/23 Chief Complaint: Bilateral lower extremity ulcers History of Wound: Mr. Boles is an 83-year-old currently residing at [facility] who presents due to nonhealing bilateral lower extremity ulceration. He was seen here a few months ago and discharged after he achieved healing. Recommendation was for continued use of his lymphedema pump however he states that this has not been used consistently. Current ulceration has been present for weeks. No chills, fever or otherwise feeling of unwell. Progress of Wound: Concern with dressing changes and compression this week. Compression wrap not appropriately applied and some ulcers did not have appropriate wound dressing. Edema worse this week and some ulcers with increased maceration. Cultures from last week with only rare growth. Negative anaerobic culture. Objective Data Objective Data Vital Signs: Vital Signs Temp Pulse Resp BP Pulse Ox O2 Del Method 97.2 F L 72 16 123/64 H 97 Room Air 10/19/23 09:48 10/19/23 09:48 10/19/23 09:48 10/19/23 09:48 09/28/23 00:23 10/19/23 09:48 Oxygen Delivery Method Room Air Lab / Micro Data Micro: Microbiology 10/12/23 11:20 Wound - Leg, Right Gram Stain - Final 10/12/23 11:20 Wound - Leg, Right Wound Culture - Final Proteus mirabilis Staphylococcus aureus 10/12/23 11:20 Wound - Leg, Right Anaerobic Culture - Final No growth in 5 days. Charges/Coding Procedures Integumentary [id number]: [id number] Jaye subq tissue 20 sq cm/< Add On Codes: [id number] Jaye subq tissue add-on (x1. Additional square centimeter debrided, please refer to clinical note.) Physical Exam Const alert, oriented x3 and no apparent distress General Appearance: cooperative, comfortable and well kempt HEENT normocephalic and head/scalp atraumatic Eyes EOMs intact bilaterally General Eye: normal appearance of both eyes Neck full ROM General: normal visual inspection Resp normal respiratory effort Effort and Inspection: able to speak in complete sentences Extremity General Extremity: edema Skin Wounds: wounds noted Neuro oriented x3, CN's II-XII intact bilaterally, moves all extremities and no focal motor deficits Psych mental status grossly normal, thought process normal, cooperative and affect normal Debridement Note Debridement Note Wound debrided: Left Medial Leg ( Cluster ) Type of Debridement: Excisional debridement Anesthesia Used: 5% Lidocaine Gel Depth: Down to and including healthy tissue and in the subcutaneous layer Percentage of wound debrided: 100 Instrument Used: 5mm curette Tissue Removed: Slough and devitalized tissue Severity: Fat Layer Exposed Amount of bleeding with debridement: Mild Bleeding Controlled with: Pressure Patient tolerated procedure: Patient tolerated procedure well Post-Debridement Measurements and Additional Note: Post-Debridement Measurements/Treatment - Nurse 1 - General Ulcer Assessment Start: 09/28/23 09:59 Freq: Status: Active Protocol: JANAYHumacyteAbdoul Activity Type Activity Date Activity User E-sign Co-sign Detail Recorded Client Recorded Date Recorded By Document 09/28/23 10:00 [employer] Desktop 09/28/23 10:07 BMF Document 10/05/23 10:02 DL Desktop 10/05/23 10:17 DL Document 10/12/23 10:42 [employer]ley Desktop 10/12/23 10:55 [place] [employer] Document 10/19/23 09:48 FabAlley Desktop 10/19/23 10:10 BMF 09/28/23 10/05/23 10/12/23 10:00 10:02 10:42 - Today's Visit Information Type of service Follow-up Visit Follow-up Visit Follow-up Visit (Physician/DURALUMIN MECHANIC (Physician/DURALUMIN MECHANIC (Physician/DURALUMIN MECHANIC ) ) ) Arrival Mode Wheelchair Wheelchair Wheelchair Transfer Assistance Other Manual None Transfer Assist (Other) 2 x1 Patient Identification Verified (Name & Yes Yes Yes ) Patient Requires Transmission-Based No Yes No Precautions Safety Precautions Fall Prevention Vital Signs Temperature (97.8 F-99.1 F) 98.5 F 97.2 F L 98.7 F Temperature Source Temporal Temporal Temporal Pulse Rate (60-100) 66 60 68 Pulse Location Monitor Monitor Monitor Respiratory Rate (12-18) 16 20 H 16 Respiratory rate source Observation Observation Observation Oxygen Delivery Method Room Air Room Air Blood Pressure (90/60-120/80) 141/71 H 122/68 H 119/62 Blood Pressure Mean (mm Hg) 94 86 81 Source Monitor Monitor Monitor Position Sitting Sitting Blood Pressure Location Right Forearm Right Forearm History Since Last Visit- (Skip if this is Patient's initial visit) Have you changed medications since your No No No last visit? Any new allergies or adverse reactions No No No Had a fall/change in ADL's that may No No No increase risk of falls Signs or symptoms of abuse and/or No No No neglect since last visit Have you been in the hospital since your No No last visit? Has dressing in place as prescribed Yes Yes Yes Has compression in place as prescribed Yes Yes Yes Has offloadiing in place as prescribed N/A N/A N/A Experienced any changes in pain level or No No No management Left Footwear Custom Shoe Custom Shoe Right Footwear Custom Shoe Custom Shoe Pain Scale: 0-10 Numeric Is Patient Pain Free? Yes Yes Yes 10/19/23 09:48 - Today's Visit Information Type of service Follow-up Visit (Physician/DURALUMIN MECHANIC ) Arrival Mode Wheelchair Transfer Assistance Other Transfer Assist (Other) 1 stand by Patient Identification Verified (Name & Yes ) Patient Requires Transmission-Based No Precautions Safety Precautions Vital Signs Temperature (97.8 F-99.1 F) 97.2 F L Temperature Source Temporal Pulse Rate (60-100) 72 Pulse Location Monitor Respiratory Rate (12-18) 16 Respiratory rate source Observation Oxygen Delivery Method Room Air Blood Pressure (90/60-120/80) 123/64 H Blood Pressure Mean (mm Hg) 83 Source Monitor Position Sitting Blood Pressure Location Right Forearm History Since Last Visit- (Skip if this is Patient's initial visit) Have you changed medications since your No last visit? Any new allergies or adverse reactions No Had a fall/change in ADL's that may No increase risk of falls Signs or symptoms of abuse and/or No neglect since last visit Have you been in the hospital since your No last visit? Has dressing in place as prescribed Yes Has compression in place as prescribed Yes Has offloadiing in place as prescribed N/A Experienced any changes in pain level or No management Left Footwear Custom Shoe Right Footwear Custom Shoe Pain Scale: 0-10 Numeric Is Patient Pain Free? Yes - Nurse 1 - General Ulcer Measurement Start: 09/28/23 09:59 Freq: Status: Active Protocol: Activity Type Activity Date Activity User E-sign Co-sign Detail Recorded Client Recorded Date Recorded By Document 09/28/23 10:00 BMF Desktop 09/28/23 10:07 BMF Document 10/05/23 10:02 DL Desktop 10/05/23 10:17 DL Document 10/12/23 10:42 BMF Desktop 10/12/23 10:55 BMF Document 10/19/23 09:48 BMF Desktop 10/19/23 10:10 BMF 09/28/23 10/05/23 10/12/23 10:00 10:02 10:42 Wound Center Nurse 1 #18 R Medial ankle -Combined with other wound No -Current Size (cm) - Length 1.2 -Current Size (cm) - Width 3 -Current Size (cm) - Depth 0.2 -Total Square Cm 3.6 -Date of Last Picture (Recall this 10/12/23 field) -Photo Taken Yes -Epithelialization Small 1-33% -Tunneling No -Undermining/Tunneling No -Circular Undermining No -Exudate Amt Medium -Exudate Type Serous -Wound Margin Flat & Intact -Granulation Amt Large (67-100%) -Granulation Quality [place] -Slough/Fibrin Yes -Necrosis Amt Small (1-33%) -Necrotic Tissue Type Adherent Slough -Texture ([place]-wound Skin Appearance) Scarring -Moisture ([place]-wound Skin Appearance) Assessed,Dry/ Scaly -Color ([place]-wound Skin Appearance) Assessed -Temperature ([place]-wound Skin No Abnormality Appearance) (Pt Warm) -Tenderness on Palpation ([place]-wound No Skin Appearance) -Ulcer Cleansing Soap and Water -Foul Odor after Cleansing No -Anesthetic Used 5% Lidocaine Gel #16 Right Medial Superior cluster -Combined with other wound No No -Current Size (cm) - Length 7 1.4 2.2 -Current Size (cm) - Width 4 8.1 2 -Current Size (cm) - Depth 0.1 0.1 0.2 -Total Square Cm 28 11.34 4.4 -Date of Last Picture (Recall this 09/28/23 10/12/23 field) -Photo Taken Yes Yes -Epithelialization Small 1-33% Small 1-33% -Tunneling No No -Undermining/Tunneling No No -Circular Undermining No No -Exudate Amt Medium Medium Medium -Exudate Type Serosanguineous Serosanguineous Serous -Wound Margin Distinct, Distinct, Distinct, Outline Outline Outline Attached Attached Attached -Granulation Amt Large (67-100%) Large (67-100%) Large (67-100%) -Granulation Quality Red Pale,[place] Red -Slough/Fibrin Yes Yes -Necrosis Amt Small (1-33%) Small (1-33%) Small (1-33%) -Necrotic Tissue Type Adherent Slough Adherent Slough Adherent Slough -Structure Exposed N/A -Texture ([place]-wound Skin Appearance) Assessed, Scarring Assessed, Scarring Scarring -Moisture ([place]-wound Skin Appearance) Assessed,Dry/ Dry/Scaly Assessed,Dry/ Scaly Scaly -Color ([place]-wound Skin Appearance) Assessed Hemosiderin Assessed Staining -Temperature ([place]-wound Skin No Abnormality No Abnormality No Abnormality Appearance) (Pt Warm) (Pt Warm) (Pt Warm) -Tenderness on Palpation ([place]-wound No No No Skin Appearance) -Ulcer Cleansing Soap and Water Soap and Water Soap and Water -Foul Odor after Cleansing No No No -Anesthetic Used 5% Lidocaine 5% Lidocaine 5% Lidocaine Gel Gel Gel #15- L MED LE CLUSTER -Combined with other wound No No -Current Size (cm) - Length 1 1.1 0.8 -Current Size (cm) - Width 3.4 3.5 1.5 -Current Size (cm) - Depth 0.1 0.1 0.2 -Total Square Cm 3.4 3.85 1.20 -Date of Last Picture (Recall this 09/28/23 10/12/23 field) -Photo Taken Yes Yes -Epithelialization Small 1-33% Small 1-33% -Tunneling No No -Undermining/Tunneling No No -Circular Undermining No No -Exudate Amt Medium Medium Medium -Exudate Type Serosanguineous Serosanguineous Serous -Wound Margin Distinct, Distinct, Distinct, Outline Outline Outline Attached Attached Attached -Granulation Amt Large (67-100%) Large (67-100%) Large (67-100%) -Granulation Quality Red [place] Red -Slough/Fibrin Yes Yes -Necrosis Amt Small (1-33%) Small (1-33%) Small (1-33%) -Necrotic Tissue Type Adherent Slough Adherent Slough Adherent Slough -Structure Exposed N/A -Texture ([place]-wound Skin Appearance) Assessed, Scarring Assessed, Scarring Scarring -Moisture ([place]-wound Skin Appearance) Assessed,Dry/ Dry/Scaly Assessed,Dry/ Scaly Scaly -Color ([place]-wound Skin Appearance) Assessed Hemosiderin Assessed Staining -Temperature ([place]-wound Skin No Abnormality No Abnormality No Abnormality Appearance) (Pt Warm) (Pt Warm) (Pt Warm) -Tenderness on Palpation ([place]-wound No No Skin Appearance) -Ulcer Cleansing Soap and Water Soap and Water Soap and Water -Foul Odor after Cleansing No No No -Anesthetic Used 5% Lidocaine 5% Lidocaine 5% Lidocaine Gel Gel Gel #14- R LAT ANKLE -Combined with other wound No No -Current Size (cm) - Length 1 1.5 4 -Current Size (cm) - Width 7 8.2 1.5 -Current Size (cm) - Depth 0.1 0.1 0.1 -Total Square Cm 7 12.30 6.0 -Date of Last Picture (Recall this 09/28/23 10/12/23 field) -Photo Taken Yes Yes -Epithelialization Small 1-33% Small 1-33% -Tunneling No No -Undermining/Tunneling No No -Circular Undermining No No -Exudate Amt Medium Small Medium -Exudate Type Serosanguineous Serosanguineous Serous -Wound Margin Distinct, Indistinct, Non Distinct, Outline -Visible Outline Attached Attached -Granulation Amt Medium (34-66%) Large (67-100%) Medium (34-66%) -Granulation Quality [place] -Slough/Fibrin Yes Yes -Necrosis Amt Small (1-33%) Small (1-33%) Medium (34-66%) -Necrotic Tissue Type Adherent Slough Adherent Slough Adherent Slough -Structure Exposed N/A -Texture ([place]-wound Skin Appearance) Assessed, Scarring Assessed, Scarring Scarring -Moisture ([place]-wound Skin Appearance) Assessed,Dry/ Dry/Scaly Assessed Scaly -Color ([place]-wound Skin Appearance) Assessed Hemosiderin Assessed Staining -Temperature ([place]-wound Skin No Abnormality No Abnormality No Abnormality Appearance) (Pt Warm) (Pt Warm) (Pt Warm) -Tenderness on Palpation ([place]-wound No No No Skin Appearance) -Ulcer Cleansing Soap and Water Soap and Water -Foul Odor after Cleansing No No -Anesthetic Used 5% Lidocaine 5% Lidocaine 5% Lidocaine Gel Gel Gel Lower Limb Edema Present Yes Yes Right Calf (cm) 43.2 39 39.2 Right Ankle (cm) 33.5 32.3 33 Left Calf (cm) 41.5 39.5 39 Left Ankle (cm) 34 31.4 31 10/19/23 09:48 Wound Center Nurse 1 #18 R Medial ankle -Combined with other wound No -Current Size (cm) - Length 4.1 -Current Size (cm) - Width 2 -Current Size (cm) - Depth 0.1 -Total Square Cm 8.2 -Date of Last Picture (Recall this 10/19/23 field) -Photo Taken Yes -Epithelialization None Present -Tunneling No -Undermining/Tunneling No -Circular Undermining No -Exudate Amt Medium -Exudate Type Serous -Wound Margin Flat & Intact -Granulation Amt None Present (0 %) -Granulation Quality -Slough/Fibrin Yes -Necrosis Amt Large (67-100%) -Necrotic Tissue Type Adherent Slough -Texture ([place]-wound Skin Appearance) Assessed, Scarring -Moisture ([place]-wound Skin Appearance) Assessed,Dry/ Scaly -Color ([place]-wound Skin Appearance) Assessed -Temperature ([place]-wound Skin No Abnormality Appearance) (Pt Warm) -Tenderness on Palpation ([place]-wound No Skin Appearance) -Ulcer Cleansing Soap and Water -Foul Odor after Cleansing No -Anesthetic Used 4% Lidocaine Solution #16 Right Medial Superior cluster -Combined with other wound No -Current Size (cm) - Length 2.6 -Current Size (cm) - Width 2 -Current Size (cm) - Depth 0.3 -Total Square Cm 5.2 -Date of Last Picture (Recall this 10/19/23 field) -Photo Taken Yes -Epithelialization None Present -Tunneling No -Undermining/Tunneling No -Circular Undermining No -Exudate Amt Medium -Exudate Type Serosanguineous -Wound Margin Distinct, Outline Attached -Granulation Amt Large (67-100%) -Granulation Quality Red -Slough/Fibrin Yes -Necrosis Amt Small (1-33%) -Necrotic Tissue Type Adherent Slough -Structure Exposed -Texture ([place]-wound Skin Appearance) Assessed, Scarring -Moisture ([place]-wound Skin Appearance) Assessed,Dry/ Scaly -Color ([place]-wound Skin Appearance) Assessed -Temperature ([place]-wound Skin No Abnormality Appearance) (Pt Warm) -Tenderness on Palpation ([place]-wound No Skin Appearance) -Ulcer Cleansing Soap and Water -Foul Odor after Cleansing No -Anesthetic Used 4% Lidocaine Solution #15- L MED LE CLUSTER -Combined with other wound No -Current Size (cm) - Length 0.1 -Current Size (cm) - Width 0.1 -Current Size (cm) - Depth 0.1 -Total Square Cm 0.01 -Date of Last Picture (Recall this 10/19/23 field) -Photo Taken Yes -Epithelialization Large 67-100% -Tunneling -Undermining/Tunneling -Circular Undermining -Exudate Amt -Exudate Type -Wound Margin -Granulation Amt -Granulation Quality -Slough/Fibrin -Necrosis Amt Small (1-33%) -Necrotic Tissue Type Eschar -Structure Exposed -Texture ([place]-wound Skin Appearance) Assessed -Moisture ([place]-wound Skin Appearance) Assessed,Dry/ Scaly -Color ([place]-wound Skin Appearance) Assessed -Temperature ([place]-wound Skin No Abnormality Appearance) (Pt Warm) -Tenderness on Palpation ([place]-wound No Skin Appearance) -Ulcer Cleansing Soap and Water -Foul Odor after Cleansing No -Anesthetic Used 4% Lidocaine Solution #14- R LAT ANKLE -Combined with other wound No -Current Size (cm) - Length 8.9 -Current Size (cm) - Width 2 -Current Size (cm) - Depth 0.1 -Total Square Cm 17.8 -Date of Last Picture (Recall this 10/19/23 field) -Photo Taken Yes -Epithelialization None Present -Tunneling No -Undermining/Tunneling No -Circular Undermining No -Exudate Amt Medium -Exudate Type Serosanguineous -Wound Margin Distinct, Outline Attached -Granulation Amt None Present (0 %) -Granulation Quality -Slough/Fibrin Yes -Necrosis Amt Large (67-100%) -Necrotic Tissue Type Adherent Slough -Structure Exposed -Texture ([place]-wound Skin Appearance) Assessed, Fluctuance -Moisture ([place]-wound Skin Appearance) Assessed,Dry/ Scaly -Color ([place]-wound Skin Appearance) Assessed -Temperature ([place]-wound Skin No Abnormality Appearance) (Pt Warm) -Tenderness on Palpation ([place]-wound No Skin Appearance) -Ulcer Cleansing Soap and Water -Foul Odor after Cleansing No -Anesthetic Used 4% Lidocaine Solution Lower Limb Edema Present Yes Right Calf (cm) 49.4 Right Ankle (cm) 32.2 Left Calf (cm) 47.1 Left Ankle (cm) 31.7 WC - Nurse 2 - General Ulcer CM Notes Start: 09/28/23 09:59 Freq: Status: Active Protocol: Activity Type Activity Date Activity User E-sign Co-sign Detail Recorded Client Recorded Date Recorded By Document 09/28/23 10:16 GM Desktop 09/28/23 10:30 GM Document 10/05/23 10:24 GM Desktop 10/05/23 10:42 GM Document 10/12/23 11:00 GM Desktop 10/12/23 11:25 GM Document 10/19/23 10:18 GM Desktop 10/19/23 10:30 GM 09/28/23 10/05/23 10/12/23 10:16 10:24 11:00 Wound Center Nurse 2 #17 Right sinclair -Time 10:37 -Correct Patient Yes -Correct Side, Site, Position Yes -Correct Procedure Yes -Procedure Performed Yes -Type of Procedure Debridement -Clinical Debridement Subcutaneous -Tissue Removed Subcutaneous -Post Debridement (cm) - Length 1.4 -Post Debridement (cm) - Width 2.0 -Post Debridement (cm) - Depth 0.1 -Total Square (Post) (cm) 2.80 -Area of Debridement (cm) - Length 1.4 -Area of Debridement (cm) - Width 2.0 -Total Square (Area) (cm) 2.80 -Tunneling No -Undermining/Tunneling No -Circular Undermining No -Wound/Ulcer Outcome Not Healed -Ulcer Cleansing Rinsed/ Irrigated with Saline -Foul Odor after Cleansing No -Bioengineered Tissue No -Bleeding Controlled with Pressure -Treatment Response Procedure Tolerated Well -Debridement - Subq, 1st 20sq cm No #18 R Medial ankle -Time 10:38 11:20 -Correct Patient Yes Yes -Correct Side, Site, Position Yes Yes -Correct Procedure Yes Yes -Procedure Performed Yes Yes -Type of Procedure Debridement Debridement -Clinical Debridement Subcutaneous Subcutaneous -Tissue Removed Subcutaneous Subcutaneous -Post Debridement (cm) - Length 1.3 1.7 -Post Debridement (cm) - Width 2.0 2.5 -Post Debridement (cm) - Depth 0.1 0.1 -Total Square (Post) (cm) 2.60 4.25 -Area of Debridement (cm) - Length 1.3 1.7 -Area of Debridement (cm) - Width 2.0 2.5 -Total Square (Area) (cm) 2.60 4.25 -Tunneling No No -Undermining/Tunneling No No -Circular Undermining No No -Wound/Ulcer Outcome Not Healed Not Healed -Ulcer Cleansing Rinsed/ Rinsed/ Irrigated with Irrigated with Saline Saline -Foul Odor after Cleansing No No -Bioengineered Tissue No No -Bleeding Controlled with Pressure Pressure -Treatment Response Procedure Procedure Tolerated Well Tolerated Well -Debridement - Subq, 1st 20sq cm Yes No -Debridement, SubQ, ea addt'l 20sq cm 1 or part thereof #16 Right Medial Superior cluster -Time 10:17 10:24 11:23 -Correct Patient Yes Yes Yes -Correct Side, Site, Position Yes Yes Yes -Correct Procedure Yes Yes Yes -Procedure Performed Yes Yes Yes -Type of Procedure Debridement Debridement Debridement -Clinical Debridement Subcutaneous Subcutaneous Subcutaneous -Tissue Removed Subcutaneous Subcutaneous Subcutaneous -Post Debridement (cm) - Length 8.0 2.5 2.8 -Post Debridement (cm) - Width 2.0 1.0 1.5 -Post Debridement (cm) - Depth 0.1 0.1 0.2 -Total Square (Post) (cm) 16.00 2.50 4.20 -Area of Debridement (cm) - Length 8.0 2.5 2.8 -Area of Debridement (cm) - Width 2.0 1.0 1.5 -Total Square (Area) (cm) 16.00 2.50 4.20 -Tunneling No No No -Undermining/Tunneling No No No -Circular Undermining No No No -Wound/Ulcer Outcome Not Healed Not Healed Not Healed -Ulcer Cleansing Rinsed/ Rinsed/ Rinsed/ Irrigated with Irrigated with Irrigated with Saline Saline Saline -Foul Odor after Cleansing No No No -Bioengineered Tissue No No -Bleeding Controlled with Pressure Pressure Pressure -Treatment Response Procedure Procedure Procedure Tolerated Well Tolerated Well Tolerated Well -Debridement - Subq, 1st 20sq cm No No Yes -Debridement, SubQ, ea addt'l 20sq cm 1 or part thereof #15- L MED LE CLUSTER -Time 10:17 10:25 11:23 -Correct Patient Yes Yes Yes -Correct Side, Site, Position Yes Yes Yes -Correct Procedure Yes Yes Yes -Procedure Performed Yes Yes Yes -Type of Procedure Debridement Debridement Debridement -Clinical Debridement Subcutaneous Subcutaneous Subcutaneous -Tissue Removed Subcutaneous Subcutaneous Subcutaneous -Post Debridement (cm) - Length 1.3 0.8 1 -Post Debridement (cm) - Width 7.5 3.5 3 -Post Debridement (cm) - Depth 0.1 0.1 0.1 -Total Square (Post) (cm) 9.75 2.80 3 -Area of Debridement (cm) - Length 1.3 0.8 1 -Area of Debridement (cm) - Width 7.5 3.5 3 -Total Square (Area) (cm) 9.75 2.80 3 -Tunneling No No No -Undermining/Tunneling No No No -Circular Undermining No No No -Wound/Ulcer Outcome Not Healed Not Healed Not Healed -Ulcer Cleansing Rinsed/ Not Cleansed Rinsed/ Irrigated with Irrigated with Saline Saline -Foul Odor after Cleansing No No No -Bioengineered Tissue No No No -Bleeding Controlled with Pressure Pressure -Treatment Response Procedure Procedure Tolerated Well Tolerated Well -Debridement - Subq, 1st 20sq cm No No No #14- R LAT ANKLE -Time 10:17 10:26 11:22 -Correct Patient Yes Yes Yes -Correct Side, Site, Position Yes Yes Yes -Correct Procedure Yes Yes Yes -Procedure Performed Yes Yes Yes -Type of Procedure Debridement Debridement Debridement -Clinical Debridement Subcutaneous Subcutaneous Subcutaneous -Tissue Removed Subcutaneous Subcutaneous Subcutaneous -Post Debridement (cm) - Length 1.5 2.0 1.3 -Post Debridement (cm) - Width 5.0 8.5 8.5 -Post Debridement (cm) - Depth 0.1 0.1 0.1 -Total Square (Post) (cm) 7.50 17.00 11.05 -Area of Debridement (cm) - Length 1.5 2.0 1.3 -Area of Debridement (cm) - Width 5.0 8.5 8.5 -Total Square (Area) (cm) 7.50 17.00 11.05 -Tunneling No No No -Undermining/Tunneling No No -Circular Undermining No No No -Wound/Ulcer Outcome Not Healed Not Healed Not Healed -Ulcer Cleansing Rinsed/ Rinsed/ Rinsed/ Irrigated with Irrigated with Irrigated with Saline Saline Saline -Foul Odor after Cleansing No No No -Bioengineered Tissue No No -Bleeding Controlled with Pressure Pressure Pressure -Treatment Response Procedure Procedure Procedure Tolerated Well Tolerated Well Tolerated Well -Debridement - Subq, 1st 20sq cm Yes No No -Debridement, SubQ, ea addt'l 20sq cm 2 or part thereof Pain Scale: 0-10 Numeric Is Patient Pain Free? Yes Yes Yes 10/19/23 10:18 Wound Center Nurse 2 #17 Right sinclair -Time -Correct Patient -Correct Side, Site, Position -Correct Procedure -Procedure Performed -Type of Procedure -Clinical Debridement -Tissue Removed -Post Debridement (cm) - Length -Post Debridement (cm) - Width -Post Debridement (cm) - Depth -Total Square (Post) (cm) -Area of Debridement (cm) - Length -Area of Debridement (cm) - Width -Total Square (Area) (cm) -Tunneling -Undermining/Tunneling -Circular Undermining -Wound/Ulcer Outcome -Ulcer Cleansing -Foul Odor after Cleansing -Bioengineered Tissue -Bleeding Controlled with -Treatment Response -Debridement - Subq, 1st 20sq cm #18 R Medial ankle -Time 10:18 -Correct Patient Yes -Correct Side, Site, Position Yes -Correct Procedure Yes -Procedure Performed Yes -Type of Procedure Debridement -Clinical Debridement Subcutaneous -Tissue Removed Subcutaneous -Post Debridement (cm) - Length 2 -Post Debridement (cm) - Width 4 -Post Debridement (cm) - Depth 0.1 -Total Square (Post) (cm) 8 -Area of Debridement (cm) - Length 2 -Area of Debridement (cm) - Width 4 -Total Square (Area) (cm) 8 -Tunneling No -Undermining/Tunneling No -Circular Undermining No -Wound/Ulcer Outcome Not Healed -Ulcer Cleansing Rinsed/ Irrigated with Saline -Foul Odor after Cleansing No -Bioengineered Tissue No -Bleeding Controlled with Pressure -Treatment Response Procedure Tolerated Well -Debridement - Subq, 1st 20sq cm No -Debridement, SubQ, ea addt'l 20sq cm or part thereof #16 Right Medial Superior cluster -Time 10:20 -Correct Patient Yes -Correct Side, Site, Position Yes -Correct Procedure Yes -Procedure Performed Yes -Type of Procedure Debridement -Clinical Debridement Subcutaneous -Tissue Removed Subcutaneous -Post Debridement (cm) - Length 3 -Post Debridement (cm) - Width 1.8 -Post Debridement (cm) - Depth 0.2 -Total Square (Post) (cm) 5.4 -Area of Debridement (cm) - Length 3 -Area of Debridement (cm) - Width 1.8 -Total Square (Area) (cm) 5.4 -Tunneling No -Undermining/Tunneling No -Circular Undermining No -Wound/Ulcer Outcome Not Healed -Ulcer Cleansing Rinsed/ Irrigated with Saline -Foul Odor after Cleansing No -Bioengineered Tissue No -Bleeding Controlled with Pressure -Treatment Response Procedure Tolerated Well -Debridement - Subq, 1st 20sq cm No -Debridement, SubQ, ea addt'l 20sq cm or part thereof #15- L MED LE CLUSTER -Time 10:20 -Correct Patient Yes -Correct Side, Site, Position Yes -Correct Procedure Yes -Procedure Performed Yes -Type of Procedure Debridement -Clinical Debridement Subcutaneous -Tissue Removed Subcutaneous -Post Debridement (cm) - Length 0.6 -Post Debridement (cm) - Width 0.9 -Post Debridement (cm) - Depth 0.1 -Total Square (Post) (cm) 0.54 -Area of Debridement (cm) - Length 0.6 -Area of Debridement (cm) - Width 0.9 -Total Square (Area) (cm) 0.54 -Tunneling No -Undermining/Tunneling No -Circular Undermining No -Wound/Ulcer Outcome Not Healed -Ulcer Cleansing Rinsed/ Irrigated with Saline -Foul Odor after Cleansing No -Bioengineered Tissue No -Bleeding Controlled with Pressure -Treatment Response Procedure Tolerated Well -Debridement - Subq, 1st 20sq cm No #14- R LAT ANKLE -Time 10:21 -Correct Patient Yes -Correct Side, Site, Position Yes -Correct Procedure Yes -Procedure Performed Yes -Type of Procedure Debridement -Clinical Debridement Subcutaneous -Tissue Removed Subcutaneous -Post Debridement (cm) - Length 2.0 -Post Debridement (cm) - Width 8.0 -Post Debridement (cm) - Depth 0.1 -Total Square (Post) (cm) 16.00 -Area of Debridement (cm) - Length 2.0 -Area of Debridement (cm) - Width 8.0 -Total Square (Area) (cm) 16.00 -Tunneling No -Undermining/Tunneling No -Circular Undermining No -Wound/Ulcer Outcome Not Healed -Ulcer Cleansing Rinsed/ Irrigated with Saline -Foul Odor after Cleansing No -Bioengineered Tissue No -Bleeding Controlled with Pressure -Treatment Response Procedure Tolerated Well -Debridement - Subq, 1st 20sq cm Yes -Debridement, SubQ, ea addt'l 20sq cm 1 or part thereof Pain Scale: 0-10 Numeric Is Patient Pain Free? Yes WC - Nurse 3 - General Ulcer D/C NN Start: 09/28/23 09:59 Freq: Status: Active Protocol: Activity Type Activity Date Activity User E-sign Co-sign Detail Recorded Client Recorded Date Recorded By Document 09/28/23 10:32 [id number] 09/28/23 10:47 GM Document 10/05/23 11:07 DL Desktop 10/05/23 11:11 DL Document 10/12/23 11:42 BMF Desktop 10/12/23 11:46 BMF Document 10/19/23 10:36 GM Desktop 10/19/23 10:38 GM 09/28/23 10/05/23 10/12/23 10:32 11:07 11:42 Wound Care Center Nurse 3 #17 Right sinclair -Ulcer Cleansing Rinsed/ Irrigated with Saline -Foul Odor after Cleansing No -Other Dressing aqaucel ex -Primary Dressing Covered/Secured with Dry Gauze & Roll Gauze, Secured with Tape #18 R Medial ankle -Ulcer Cleansing Rinsed/ Rinsed/ Irrigated with Irrigated with Saline Saline -Foul Odor after Cleansing No No -Primary Dressing Applied Aquacel Extra Aquacel Extra, Fibracol Plus 4x4 -Other Dressing per rb rn -Primary Dressing Covered/Secured with Dry Gauze & Roll Gauze, Secured with Tape -Aquacel Extra 1 1 -Fibracol Plus 4x4 1 #16 Right Medial Superior cluster -Ulcer Cleansing Not Cleansed Rinsed/ Rinsed/ Irrigated with Irrigated with Saline Saline -Foul Odor after Cleansing No No No -Primary Dressing Applied Aquacel Extra, Aquacel Extra, Other Fibracol Plus 4x4 -Other Dressing abd aquacel ex per rb rn -Primary Dressing Covered/Secured with Dry Gauze Dry Gauze & Roll Gauze, Secured with Tape -Aquacel Extra 1 0 -Fibracol Plus 4x4 0 #15- L MED LE CLUSTER -Ulcer Cleansing Not Cleansed Rinsed/ Rinsed/ Irrigated with Irrigated with Saline Saline -Foul Odor after Cleansing No No No -Negative Pressure Wound Therapy N/A -Primary Dressing Applied Aquacel Extra, Aquacel Extra, Other Fibracol Plus 4x4 -Other Dressing ABD aquacel ex per rb rn -Primary Dressing Covered/Secured with Dry Gauze Dry Gauze & Roll Gauze, Secured with Tape -Aquacel Extra 1 0 -Fibracol Plus 4x4 0 #14- R LAT ANKLE -Ulcer Cleansing Not Cleansed Rinsed/ Rinsed/ Irrigated with Irrigated with Saline Saline -Foul Odor after Cleansing No No No -Primary Dressing Applied Other Aquacel Extra, Fibracol Plus 4x4 -Other Dressing abd aquacel ex per rb rn -Primary Dressing Covered/Secured with Dry Gauze Dry Gauze & Roll Gauze -Aquacel Extra 0 -Fibracol Plus 4x4 0 radha -Multi-Layered Wrap Application Multi-Layer Multi-Layer Comp - Bilat ($ Comp - Bilat ($ ) ) -Other per rb rn Left -Multi-Layered Wrap Application Multi-Layer Comp - Bilat ($ ) -Other 3 SETS SENT used 3 for his long legs; applied per rb rn Treatment Response Procedure Procedure Tolerated Well Tolerated Well Pain Scale: 0-10 Numeric Is Patient Pain Free? Yes Yes Yes Teaching: Wound Center Control Swelling with Leg Elevation -Person Taught -Teaching Method -Response to teaching WC - Visit Discharge Discharge Condition Stable Stable Stable Ambulatory Status Wheelchair Ambulatory, Wheelchair Walker, Wheelchair Transportation Private Auto ecf Medication Reconcilliation completed & Yes provided to patient/care provider Clinical Summary of Care Provided Yes Facility Type Case Mgr Care Case Mgr Care Facility Facility Orders Sent Yes 10/19/23 10:36 Wound Care Center Nurse 3 #17 Right sinclair -Ulcer Cleansing -Foul Odor after Cleansing -Other Dressing -Primary Dressing Covered/Secured with #18 R Medial ankle -Ulcer Cleansing Not Cleansed -Foul Odor after Cleansing No -Primary Dressing Applied Aquacel Extra, Fibracol Plus 4x4 -Other Dressing -Primary Dressing Covered/Secured with Dry Gauze, Secured with Tape -Aquacel Extra 1 -Fibracol Plus 4x4 1 #16 Right Medial Superior cluster -Ulcer Cleansing Not Cleansed -Foul Odor after Cleansing No -Primary Dressing Applied -Other Dressing remainder of suply -Primary Dressing Covered/Secured with -Aquacel Extra -Fibracol Plus 4x4 #15- L MED LE CLUSTER -Ulcer Cleansing Not Cleansed -Foul Odor after Cleansing No -Negative Pressure Wound Therapy -Primary Dressing Applied -Other Dressing remainder of supply -Primary Dressing Covered/Secured with -Aquacel Extra -Fibracol Plus 4x4 #14- R LAT ANKLE -Ulcer Cleansing Not Cleansed -Foul Odor after Cleansing No -Primary Dressing Applied -Other Dressing remainder of supply -Primary Dressing Covered/Secured with -Aquacel Extra -Fibracol Plus 4x4 radha -Multi-Layered Wrap Application Multi-Layer Comp - Bilat ($ ) -Other Left -Multi-Layered Wrap Application -Other Treatment Response Pain Scale: 0-10 Numeric Is Patient Pain Free? Yes Teaching: Wound Center Control Swelling with Leg Elevation -Person Taught Patient -Teaching Method Discussion -Response to teaching Verbalize understanding WC - Visit Discharge Discharge Condition Stable Ambulatory Status Wheelchair Transportation Private Auto Medication Reconcilliation completed & Yes provided to patient/care provider Clinical Summary of Care Provided Yes Facility Type Orders Sent Additional Wound Wound debrided: Right lateral ankle/foot Type of Debridement: Excisional debridement Anesthesia Used: 5% Lidocaine Gel Depth: Down to and including healthy tissue and in the subcutaneous layer Percentage of wound debrided: 100 Instrument Used: 5mm curette Tissue Removed: Slough and devitalized tissue Severity: Fat Layer Exposed Amount of bleeding with debridement: Mild Bleeding Controlled with: Pressure Patient tolerated procedure: Patient tolerated procedure well Additional Wound Wound debrided: Right medial foot/ankle Type of Debridement: Excisional debridement Anesthesia Used: 5% Lidocaine Gel Depth: Down to and including healthy tissue and in the subcutaneous layer Percentage of wound debrided: 100 Instrument Used: 5mm curette Tissue Removed: Slough and devitalized tissue Severity: Fat Layer Exposed Amount of bleeding with debridement: Mild Bleeding Controlled with: Pressure Additional Wound Wound debrided: Right Sinclair ( Superior ) Type of Debridement: Excisional debridement Anesthesia Used: 5% Lidocaine Gel Depth: in the subcutaneous layer Percentage of wound debrided: 100 Instrument Used: 5mm curette Severity: Fat Layer Exposed Amount of bleeding with debridement: Mild Bleeding Controlled with: Pressure Patient tolerated procedure: Patient tolerated procedure well Assessment/Plan Assessment/Plan (1) Ulcer of right lower extremity with fat layer exposed: CODE(S): L97.912 - Non-pressure chronic ulcer of unspecified part of right lower leg with fat layer exposed (2) Ulcer of left lower extremity with fat layer exposed: CODE(S): L97.922 - Non-pressure chronic 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 He has he had challenges with compression this week with application not done right. Worsening edema and drainage appreciated. Cultures from right sinclair with very rare growth. Left lower extremity however with good improvement. Continue Fibracol to all ulcers, Aquacel extra over top and cover with superabsorbent dressing. Consider switching to a silver dressing if no significant improvement despite proper compression next week. Continue 3M wraps. Change dressing and wrap on Monday and Monday at the facility. Continue use of lymphedema pump twice daily. Leg elevation and compression also very strongly recommended, he voiced understanding. Continue other chronic wound care. His questions were answered and he was advised to call with any further questions or concerns. Follow-up in 1 week. This note was generated with [employer] dictation software. It may contain incorrect words, spelling, and punctuation that were not noted in checking the note before signing.
[2023-10-26 10:05] VITALS: BP 131/65; PULSE 68; RESP 18; TEMP 36.4
--- NOTE | 2023-10-26 10:52 | PCM.WC.PN ---
History of Present Illness Date of Service: 10/26/23 Chief Complaint: Bilateral lower extremity ulcers History of Wound: Mr. Boles is an 83-year-old currently residing at [facility] who presents due to nonhealing bilateral lower extremity ulceration. He was seen here a few months ago and discharged after he achieved healing. Recommendation was for continued use of his lymphedema pump however he states that this has not been used consistently. Current ulceration has been present for weeks. No chills, fever or otherwise feeling of unwell. Progress of Wound: No new concerns at this time. Had his dressings on and compression done better today. Significant improvement in lower extremity edema. Left lower extremity ulcer is healed. Objective Data Objective Data Vital Signs: Vital Signs Temp Pulse Resp BP Pulse Ox O2 Del Method 97.6 F L 68 18 131/65 H 97 Room Air 10/26/23 10:05 10/26/23 10:05 10/26/23 10:05 10/26/23 10:05 09/28/23 00:23 10/19/23 09:48 Oxygen Delivery Method Room Air Lab / Micro Data Micro: Microbiology 10/12/23 11:20 Wound - Leg, Right Gram Stain - Final 10/12/23 11:20 Wound - Leg, Right Wound Culture - Final Proteus mirabilis Staphylococcus aureus 10/12/23 11:20 Wound - Leg, Right Anaerobic Culture - Final No growth in 5 days. Charges/Coding Procedures Integumentary [id number]: [id number] Jaye subq tissue 20 sq cm/< Add On Codes: 27434 Jaye subq tissue add-on (x1 additional square centimeter debrided, please refer to clinical note.) Physical Exam Const alert, oriented x3 and no apparent distress General Appearance: cooperative, comfortable and well kempt HEENT normocephalic and head/scalp atraumatic Eyes EOMs intact bilaterally General Eye: normal appearance of both eyes Neck full ROM General: normal visual inspection Resp normal respiratory effort Effort and Inspection: able to speak in complete sentences Extremity General Extremity: edema Skin Wounds: wounds noted Neuro oriented x3, CN's II-XII intact bilaterally, moves all extremities and no focal motor deficits Psych mental status grossly normal, thought process normal, cooperative and affect normal Debridement Note Debridement Note Wound debrided: Right sinclair ( Superior ) Type of Debridement: Excisional debridement Anesthesia Used: 5% Lidocaine Gel Depth: in the subcutaneous layer Percentage of wound debrided: 100 Instrument Used: 5mm curette Tissue Removed: Slough and devitalized tissue Severity: Fat Layer Exposed Amount of bleeding with debridement: Mild Bleeding Controlled with: Compression and gauze Patient tolerated procedure: Patient tolerated procedure well Post-Debridement Measurements and Additional Note: Post-Debridement Measurements/Treatment JANAY - Nurse 1 - General Ulcer Assessment Start: 09/28/23 09:59 Freq: Status: Active Protocol: LINDA Activity Type Activity Date Activity User E-sign Co-sign Detail Recorded Client Recorded Date Recorded By Document 09/28/23 10:00 BMF Desktop 09/28/23 10:07 BMF Document 10/05/23 10:02 DL Desktop 10/05/23 10:17 DL Document 10/12/23 10:42 BMF Desktop 10/12/23 10:55 BMF Document 10/19/23 09:48 BMF Desktop 10/19/23 10:10 BMF Document 10/26/23 10:05 RB Desktop 10/26/23 10:16 RB 09/28/23 10/05/23 10/12/23 10:00 10:02 10:42 - Today's Visit Information Type of service Follow-up Visit Follow-up Visit Follow-up Visit (Physician/INTERNATIONAL MARKETING MANAGER (Physician/INTERNATIONAL MARKETING MANAGER (Physician/INTERNATIONAL MARKETING MANAGER ) ) ) Arrival Mode Wheelchair Wheelchair Wheelchair Transfer Assistance Other Manual None Transfer Assist (Other) 2 x1 Patient Identification Verified (Name & Yes Yes Yes ) Patient Requires Transmission-Based No Yes No Precautions Safety Precautions Fall Prevention Vital Signs Temperature (97.8 F-99.1 F) 98.5 F 97.2 F L 98.7 F Temperature Source Temporal Temporal Temporal Pulse Rate (60-100) 66 60 68 Pulse Location Monitor Monitor Monitor Respiratory Rate (12-18) 16 20 H 16 Respiratory rate source Observation Observation Observation Oxygen Delivery Method Room Air Room Air Blood Pressure (90/60-120/80) 141/71 H 122/68 H 119/62 Blood Pressure Mean (mm Hg) 94 86 81 Source Monitor Monitor Monitor Position Sitting Sitting Blood Pressure Location Right Forearm Right Forearm History Since Last Visit- (Skip if this is Patient's initial visit) Have you changed medications since your No No No last visit? Any new allergies or adverse reactions No No No Had a fall/change in ADL's that may No No No increase risk of falls Signs or symptoms of abuse and/or No No No neglect since last visit Have you been in the hospital since your No No last visit? Has dressing in place as prescribed Yes Yes Yes Has compression in place as prescribed Yes Yes Yes Has offloadiing in place as prescribed N/A N/A N/A Experienced any changes in pain level or No No No management Left Footwear Custom Shoe Custom Shoe Right Footwear Custom Shoe Custom Shoe Pain Scale: 0-10 Numeric Is Patient Pain Free? Yes Yes Yes 10/19/23 10/26/23 09:48 10:05 WC - Today's Visit Information Type of service Follow-up Visit Follow-up Visit (Physician/INTERNATIONAL MARKETING MANAGER (Physician/INTERNATIONAL MARKETING MANAGER ) ) Arrival Mode Wheelchair Walker, Wheelchair Transfer Assistance Other Manual Transfer Assist (Other) 1 stand by Patient Identification Verified (Name & Yes Yes ) Patient Requires Transmission-Based No No Precautions Safety Precautions Vital Signs Temperature (97.8 F-99.1 F) 97.2 F L 97.6 F L Temperature Source Temporal Temporal Pulse Rate (60-100) 72 68 Pulse Location Monitor Monitor Respiratory Rate (12-18) 16 18 Respiratory rate source Observation Observation Oxygen Delivery Method Room Air Blood Pressure (90/60-120/80) 123/64 H 131/65 H Blood Pressure Mean (mm Hg) 83 87 Source Monitor Monitor Position Sitting Semi-Fowlers Blood Pressure Location Right Forearm Left Arm History Since Last Visit- (Skip if this is Patient's initial visit) Have you changed medications since your No No last visit? Any new allergies or adverse reactions No No Had a fall/change in ADL's that may No No increase risk of falls Signs or symptoms of abuse and/or No No neglect since last visit Have you been in the hospital since your No No last visit? Has dressing in place as prescribed Yes Yes Has compression in place as prescribed Yes Yes Has offloadiing in place as prescribed N/A No Experienced any changes in pain level or No No management Left Footwear Custom Shoe Diabetic Shoe Right Footwear Custom Shoe Diabetic Shoe Pain Scale: 0-10 Numeric Is Patient Pain Free? Yes Yes - Nurse 1 - General Ulcer Measurement Start: 09/28/23 09:59 Freq: Status: Active Protocol: Activity Type Activity Date Activity User E-sign Co-sign Detail Recorded Client Recorded Date Recorded By Document 09/28/23 10:00 BMF Desktop 09/28/23 10:07 BMF Document 10/05/23 10:02 DL Desktop 10/05/23 10:17 DL Document 10/12/23 10:42 BMF Desktop 10/12/23 10:55 BMF Document 10/19/23 09:48 BMF Desktop 10/19/23 10:10 BMF Document 10/26/23 10:05 RB Desktop 10/26/23 10:16 RB 09/28/23 10/05/23 10/12/23 10:00 10:02 10:42 Wound Center Nurse 1 #15- L MED LE CLUSTER -Combined with other wound No No -Current Size (cm) - Length 1 1.1 0.8 -Current Size (cm) - Width 3.4 3.5 1.5 -Current Size (cm) - Depth 0.1 0.1 0.2 -Total Square Cm 3.4 3.85 1.20 -Date of Last Picture (Recall this 09/28/23 10/12/23 field) -Photo Taken Yes Yes -Epithelialization Small 1-33% Small 1-33% -Tunneling No No -Undermining/Tunneling No No -Circular Undermining No No -Exudate Amt Medium Medium Medium -Exudate Type Serosanguineous Serosanguineous Serous -Wound Margin Distinct, Distinct, Distinct, Outline Outline Outline Attached Attached Attached -Granulation Amt Large (67-100%) Large (67-100%) Large (67-100%) -Granulation Quality Red [place] Red -Slough/Fibrin Yes Yes -Necrosis Amt Small (1-33%) Small (1-33%) Small (1-33%) -Necrotic Tissue Type Adherent Slough Adherent Slough Adherent Slough -Structure Exposed N/A -Texture ([place]-wound Skin Appearance) Assessed, Scarring Assessed, Scarring Scarring -Moisture ([place]-wound Skin Appearance) Assessed,Dry/ Dry/Scaly Assessed,Dry/ Scaly Scaly -Color ([place]-wound Skin Appearance) Assessed Hemosiderin Assessed Staining -Temperature ([place]-wound Skin No Abnormality No Abnormality No Abnormality Appearance) (Pt Warm) (Pt Warm) (Pt Warm) -Tenderness on Palpation ([place]-wound No No Skin Appearance) -Ulcer Cleansing Soap and Water Soap and Water Soap and Water -Foul Odor after Cleansing No No No -Anesthetic Used 5% Lidocaine 5% Lidocaine 5% Lidocaine Gel Gel Gel #18 R Medial ankle -Combined with other wound No -Current Size (cm) - Length 1.2 -Current Size (cm) - Width 3 -Current Size (cm) - Depth 0.2 -Total Square Cm 3.6 -Date of Last Picture (Recall this 10/12/23 field) -Photo Taken Yes -Epithelialization Small 1-33% -Tunneling No -Undermining/Tunneling No -Circular Undermining No -Exudate Amt Medium -Exudate Type Serous -Wound Margin Flat & Intact -Granulation Amt Large (67-100%) -Granulation Quality Narka -Slough/Fibrin Yes -Necrosis Amt Small (1-33%) -Necrotic Tissue Type Adherent Slough -Structure Exposed -Texture ([place]-wound Skin Appearance) Scarring -Moisture ([place]-wound Skin Appearance) Assessed,Dry/ Scaly -Color ([place]-wound Skin Appearance) Assessed -Temperature ([place]-wound Skin No Abnormality Appearance) (Pt Warm) -Tenderness on Palpation ([place]-wound No Skin Appearance) -Ulcer Cleansing Soap and Water -Foul Odor after Cleansing No -Anesthetic Used 5% Lidocaine Gel #16 Right Medial Superior cluster -Combined with other wound No No -Current Size (cm) - Length 7 1.4 2.2 -Current Size (cm) - Width 4 8.1 2 -Current Size (cm) - Depth 0.1 0.1 0.2 -Total Square Cm 28 11.34 4.4 -Date of Last Picture (Recall this 09/28/23 10/12/23 field) -Photo Taken Yes Yes -Epithelialization Small 1-33% Small 1-33% -Tunneling No No -Undermining/Tunneling No No -Circular Undermining No No -Exudate Amt Medium Medium Medium -Exudate Type Serosanguineous Serosanguineous Serous -Wound Margin Distinct, Distinct, Distinct, Outline Outline Outline Attached Attached Attached -Granulation Amt Large (67-100%) Large (67-100%) Large (67-100%) -Granulation Quality Red Pale,[place]arka Red -Slough/Fibrin Yes Yes -Necrosis Amt Small (1-33%) Small (1-33%) Small (1-33%) -Necrotic Tissue Type Adherent Slough Adherent Slough Adherent Slough -Structure Exposed N/A -Texture ([place]-wound Skin Appearance) Assessed, Scarring Assessed, Scarring Scarring -Moisture ([place]-wound Skin Appearance) Assessed,Dry/ Dry/Scaly Assessed,Dry/ Scaly Scaly -Color ([place]-wound Skin Appearance) Assessed Hemosiderin Assessed Staining -Temperature ([place]-wound Skin No Abnormality No Abnormality No Abnormality Appearance) (Pt Warm) (Pt Warm) (Pt Warm) -Tenderness on Palpation ([place]-wound No No No Skin Appearance) -Ulcer Cleansing Soap and Water Soap and Water Soap and Water -Foul Odor after Cleansing No No No -Anesthetic Used 5% Lidocaine 5% Lidocaine 5% Lidocaine Gel Gel Gel #14- R LAT ANKLE -Combined with other wound No No -Current Size (cm) - Length 1 1.5 4 -Current Size (cm) - Width 7 8.2 1.5 -Current Size (cm) - Depth 0.1 0.1 0.1 -Total Square Cm 7 12.30 6.0 -Date of Last Picture (Recall this 09/28/23 10/12/23 field) -Photo Taken Yes Yes -Epithelialization Small 1-33% Small 1-33% -Tunneling No No -Undermining/Tunneling No No -Circular Undermining No No -Exudate Amt Medium Small Medium -Exudate Type Serosanguineous Serosanguineous Serous -Wound Margin Distinct, Indistinct, Non Distinct, Outline -Visible Outline Attached Attached -Granulation Amt Medium (34-66%) Large (67-100%) Medium (34-66%) -Granulation Quality Narka Narka Narka -Slough/Fibrin Yes Yes -Necrosis Amt Small (1-33%) Small (1-33%) Medium (34-66%) -Necrotic Tissue Type Adherent Slough Adherent Slough Adherent Slough -Structure Exposed N/A -Texture ([place]-wound Skin Appearance) Assessed, Scarring Assessed, Scarring Scarring -Moisture ([place]-wound Skin Appearance) Assessed,Dry/ Dry/Scaly Assessed Scaly -Color ([place]-wound Skin Appearance) Assessed Hemosiderin Assessed Staining -Temperature ([place]-wound Skin No Abnormality No Abnormality No Abnormality Appearance) (Pt Warm) (Pt Warm) (Pt Warm) -Tenderness on Palpation ([place]-wound No No No Skin Appearance) -Ulcer Cleansing Soap and Water Soap and Water -Foul Odor after Cleansing No No -Anesthetic Used 5% Lidocaine 5% Lidocaine 5% Lidocaine Gel Gel Gel Lower Limb Edema Present Yes Yes Right Calf (cm) 43.2 39 39.2 Right Ankle (cm) 33.5 32.3 33 Left Calf (cm) 41.5 39.5 39 Left Ankle (cm) 34 31.4 31 10/19/23 10/26/23 09:48 10:05 Wound Center Nurse 1 #15- L MED LE CLUSTER -Combined with other wound No No -Current Size (cm) - Length 0.1 0 -Current Size (cm) - Width 0.1 0 -Current Size (cm) - Depth 0.1 0 -Total Square Cm 0.01 0 -Date of Last Picture (Recall this 10/19/23 field) -Photo Taken Yes Yes -Epithelialization Large 67-100% Large 67-100% -Tunneling -Undermining/Tunneling -Circular Undermining -Exudate Amt -Exudate Type -Wound Margin -Granulation Amt -Granulation Quality -Slough/Fibrin -Necrosis Amt Small (1-33%) -Necrotic Tissue Type Eschar -Structure Exposed -Texture ([place]-wound Skin Appearance) Assessed -Moisture ([place]-wound Skin Appearance) Assessed,Dry/ Scaly -Color ([place]-wound Skin Appearance) Assessed -Temperature ([place]-wound Skin No Abnormality Appearance) (Pt Warm) -Tenderness on Palpation ([place]-wound No Skin Appearance) -Ulcer Cleansing Soap and Water -Foul Odor after Cleansing No -Anesthetic Used 4% Lidocaine Solution #18 R Medial ankle -Combined with other wound No No -Current Size (cm) - Length 4.1 4 -Current Size (cm) - Width 2 3.1 -Current Size (cm) - Depth 0.1 0.1 -Total Square Cm 8.2 12.4 -Date of Last Picture (Recall this 10/19/23 field) -Photo Taken Yes -Epithelialization None Present -Tunneling No No -Undermining/Tunneling No No -Circular Undermining No No -Exudate Amt Medium Large -Exudate Type Serous Serosanguineous -Wound Margin Flat & Intact Distinct, Outline Attached -Granulation Amt None Present (0 Medium (34-66%) %) -Granulation Quality Narka -Slough/Fibrin Yes Yes -Necrosis Amt Large (67-100%) Medium (34-66%) -Necrotic Tissue Type Adherent Slough Adherent Slough -Structure Exposed N/A -Texture ([place]-wound Skin Appearance) Assessed, Assessed Scarring -Moisture ([place]-wound Skin Appearance) Assessed,Dry/ Assessed Scaly -Color ([place]-wound Skin Appearance) Assessed Hemosiderin Staining -Temperature ([place]-wound Skin No Abnormality No Abnormality Appearance) (Pt Warm) (Pt Warm) -Tenderness on Palpation ([place]-wound No No Skin Appearance) -Ulcer Cleansing Soap and Water Wound Cleanser -Foul Odor after Cleansing No No -Anesthetic Used 4% Lidocaine 5% Lidocaine Solution Gel #16 Right Medial Superior cluster -Combined with other wound No No -Current Size (cm) - Length 2.6 2.3 -Current Size (cm) - Width 2 2.7 -Current Size (cm) - Depth 0.3 0.2 -Total Square Cm 5.2 6.21 -Date of Last Picture (Recall this 10/19/23 field) -Photo Taken Yes -Epithelialization None Present -Tunneling No No -Undermining/Tunneling No No -Circular Undermining No No -Exudate Amt Medium Large -Exudate Type Serosanguineous Serosanguineous -Wound Margin Distinct, Distinct, Outline Outline Attached Attached -Granulation Amt Large (67-100%) Medium (34-66%) -Granulation Quality Red [place] -Slough/Fibrin Yes Yes -Necrosis Amt Small (1-33%) Medium (34-66%) -Necrotic Tissue Type Adherent Slough Adherent Slough -Structure Exposed N/A -Texture ([place]-wound Skin Appearance) Assessed, Assessed Scarring -Moisture ([place]-wound Skin Appearance) Assessed,Dry/ Assessed Scaly -Color ([place]-wound Skin Appearance) Assessed Assessed, Erythema -Temperature ([place]-wound Skin No Abnormality No Abnormality Appearance) (Pt Warm) (Pt Warm) -Tenderness on Palpation ([place]-wound No No Skin Appearance) -Ulcer Cleansing Soap and Water Wound Cleanser -Foul Odor after Cleansing No No -Anesthetic Used 4% Lidocaine 5% Lidocaine Solution Gel #14- R LAT ANKLE -Combined with other wound No No -Current Size (cm) - Length 8.9 10.5 -Current Size (cm) - Width 2 1.5 -Current Size (cm) - Depth 0.1 0.1 -Total Square Cm 17.8 15.75 -Date of Last Picture (Recall this 10/19/23 field) -Photo Taken Yes -Epithelialization None Present -Tunneling No No -Undermining/Tunneling No No -Circular Undermining No No -Exudate Amt Medium Medium -Exudate Type Serosanguineous Serosanguineous -Wound Margin Distinct, Distinct, Outline Outline Attached Attached -Granulation Amt None Present (0 Medium (34-66%) %) -Granulation Quality [place] -Slough/Fibrin Yes Yes -Necrosis Amt Large (67-100%) Medium (34-66%) -Necrotic Tissue Type Adherent Slough Adherent Slough -Structure Exposed N/A -Texture ([place]-wound Skin Appearance) Assessed, Assessed Fluctuance -Moisture ([place]-wound Skin Appearance) Assessed,Dry/ Assessed Scaly -Color ([place]-wound Skin Appearance) Assessed Assessed -Temperature ([place]-wound Skin No Abnormality No Abnormality Appearance) (Pt Warm) (Pt Warm) -Tenderness on Palpation ([place]-wound No No Skin Appearance) -Ulcer Cleansing Soap and Water Wound Cleanser -Foul Odor after Cleansing No No -Anesthetic Used 4% Lidocaine 5% Lidocaine Solution Gel Lower Limb Edema Present Yes Yes Right Calf (cm) 49.4 39.5 Right Ankle (cm) 32.2 32 Left Calf (cm) 47.1 39.5 Left Ankle (cm) 31.7 29.5 WC - Nurse 2 - General Ulcer CM Notes Start: 09/28/23 09:59 Freq: Status: Active Protocol: Activity Type Activity Date Activity User E-sign Co-sign Detail Recorded Client Recorded Date Recorded By Document 09/28/23 10:16 Desktop 09/28/23 10:30 Document 10/05/23 10:24 Desktop 10/05/23 10:42 Document 10/12/23 11:00 GM Desktop 10/12/23 11:25 GM Document 10/19/23 10:18 Desktop 10/19/23 10:30 Document 10/26/23 10:21 GM Desktop 10/26/23 10:33 GM 09/28/23 10/05/23 10/12/23 10:16 10:24 11:00 Wound Center Nurse 2 #17 Right sinclair -Time 10:37 -Correct Patient Yes -Correct Side, Site, Position Yes -Correct Procedure Yes -Procedure Performed Yes -Type of Procedure Debridement -Clinical Debridement Subcutaneous -Tissue Removed Subcutaneous -Post Debridement (cm) - Length 1.4 -Post Debridement (cm) - Width 2.0 -Post Debridement (cm) - Depth 0.1 -Total Square (Post) (cm) 2.80 -Area of Debridement (cm) - Length 1.4 -Area of Debridement (cm) - Width 2.0 -Total Square (Area) (cm) 2.80 -Tunneling No -Undermining/Tunneling No -Circular Undermining No -Wound/Ulcer Outcome Not Healed -Ulcer Cleansing Rinsed/ Irrigated with Saline -Foul Odor after Cleansing No -Bioengineered Tissue No -Bleeding Controlled with Pressure -Treatment Response Procedure Tolerated Well -Debridement - Subq, 1st 20sq cm No #15- L MED LE CLUSTER -Time 10:17 10:25 11:23 -Correct Patient Yes Yes Yes -Correct Side, Site, Position Yes Yes Yes -Correct Procedure Yes Yes Yes -Procedure Performed Yes Yes Yes -Type of Procedure Debridement Debridement Debridement -Clinical Debridement Subcutaneous Subcutaneous Subcutaneous -Tissue Removed Subcutaneous Subcutaneous Subcutaneous -Post Debridement (cm) - Length 1.3 0.8 1 -Post Debridement (cm) - Width 7.5 3.5 3 -Post Debridement (cm) - Depth 0.1 0.1 0.1 -Total Square (Post) (cm) 9.75 2.80 3 -Area of Debridement (cm) - Length 1.3 0.8 1 -Area of Debridement (cm) - Width 7.5 3.5 3 -Total Square (Area) (cm) 9.75 2.80 3 -Tunneling No No No -Undermining/Tunneling No No No -Circular Undermining No No No -Wound/Ulcer Outcome Not Healed Not Healed Not Healed -Ulcer Cleansing Rinsed/ Not Cleansed Rinsed/ Irrigated with Irrigated with Saline Saline -Foul Odor after Cleansing No No No -Bioengineered Tissue No No No -Bleeding Controlled with Pressure Pressure -Treatment Response Procedure Procedure Tolerated Well Tolerated Well -Debridement - Subq, 1st 20sq cm No No No #18 R Medial ankle -Time 10:38 11:20 -Correct Patient Yes Yes -Correct Side, Site, Position Yes Yes -Correct Procedure Yes Yes -Procedure Performed Yes Yes -Type of Procedure Debridement Debridement -Clinical Debridement Subcutaneous Subcutaneous -Tissue Removed Subcutaneous Subcutaneous -Post Debridement (cm) - Length 1.3 1.7 -Post Debridement (cm) - Width 2.0 2.5 -Post Debridement (cm) - Depth 0.1 0.1 -Total Square (Post) (cm) 2.60 4.25 -Area of Debridement (cm) - Length 1.3 1.7 -Area of Debridement (cm) - Width 2.0 2.5 -Total Square (Area) (cm) 2.60 4.25 -Tunneling No No -Undermining/Tunneling No No -Circular Undermining No No -Wound/Ulcer Outcome Not Healed Not Healed -Ulcer Cleansing Rinsed/ Rinsed/ Irrigated with Irrigated with Saline Saline -Foul Odor after Cleansing No No -Bioengineered Tissue No No -Bleeding Controlled with Pressure Pressure -Treatment Response Procedure Procedure Tolerated Well Tolerated Well -Debridement - Subq, 1st 20sq cm Yes No -Debridement, SubQ, ea addt'l 20sq cm 1 or part thereof #16 Right Medial Superior cluster -Time 10:17 10:24 11:23 -Correct Patient Yes Yes Yes -Correct Side, Site, Position Yes Yes Yes -Correct Procedure Yes Yes Yes -Procedure Performed Yes Yes Yes -Type of Procedure Debridement Debridement Debridement -Clinical Debridement Subcutaneous Subcutaneous Subcutaneous -Tissue Removed Subcutaneous Subcutaneous Subcutaneous -Post Debridement (cm) - Length 8.0 2.5 2.8 -Post Debridement (cm) - Width 2.0 1.0 1.5 -Post Debridement (cm) - Depth 0.1 0.1 0.2 -Total Square (Post) (cm) 16.00 2.50 4.20 -Area of Debridement (cm) - Length 8.0 2.5 2.8 -Area of Debridement (cm) - Width 2.0 1.0 1.5 -Total Square (Area) (cm) 16.00 2.50 4.20 -Tunneling No No No -Undermining/Tunneling No No No -Circular Undermining No No No -Wound/Ulcer Outcome Not Healed Not Healed Not Healed -Ulcer Cleansing Rinsed/ Rinsed/ Rinsed/ Irrigated with Irrigated with Irrigated with Saline Saline Saline -Foul Odor after Cleansing No No No -Bioengineered Tissue No No -Bleeding Controlled with Pressure Pressure Pressure -Treatment Response Procedure Procedure Procedure Tolerated Well Tolerated Well Tolerated Well -Debridement - Subq, 1st 20sq cm No No Yes -Debridement, SubQ, ea addt'l 20sq cm 1 or part thereof #14- R LAT ANKLE -Time 10:17 10:26 11:22 -Correct Patient Yes Yes Yes -Correct Side, Site, Position Yes Yes Yes -Correct Procedure Yes Yes Yes -Procedure Performed Yes Yes Yes -Type of Procedure Debridement Debridement Debridement -Clinical Debridement Subcutaneous Subcutaneous Subcutaneous -Tissue Removed Subcutaneous Subcutaneous Subcutaneous -Post Debridement (cm) - Length 1.5 2.0 1.3 -Post Debridement (cm) - Width 5.0 8.5 8.5 -Post Debridement (cm) - Depth 0.1 0.1 0.1 -Total Square (Post) (cm) 7.50 17.00 11.05 -Area of Debridement (cm) - Length 1.5 2.0 1.3 -Area of Debridement (cm) - Width 5.0 8.5 8.5 -Total Square (Area) (cm) 7.50 17.00 11.05 -Tunneling No No No -Undermining/Tunneling No No -Circular Undermining No No No -Wound/Ulcer Outcome Not Healed Not Healed Not Healed -Ulcer Cleansing Rinsed/ Rinsed/ Rinsed/ Irrigated with Irrigated with Irrigated with Saline Saline Saline -Foul Odor after Cleansing No No No -Bioengineered Tissue No No -Bleeding Controlled with Pressure Pressure Pressure -Treatment Response Procedure Procedure Procedure Tolerated Well Tolerated Well Tolerated Well -Debridement - Subq, 1st 20sq cm Yes No No -Debridement, SubQ, ea addt'l 20sq cm 2 or part thereof Pain Scale: 0-10 Numeric Is Patient Pain Free? Yes Yes Yes 10/19/23 10/26/23 10:18 10:21 Wound Center Nurse 2 #17 Right sinclair -Time -Correct Patient -Correct Side, Site, Position -Correct Procedure -Procedure Performed -Type of Procedure -Clinical Debridement -Tissue Removed -Post Debridement (cm) - Length -Post Debridement (cm) - Width -Post Debridement (cm) - Depth -Total Square (Post) (cm) -Area of Debridement (cm) - Length -Area of Debridement (cm) - Width -Total Square (Area) (cm) -Tunneling -Undermining/Tunneling -Circular Undermining -Wound/Ulcer Outcome -Ulcer Cleansing -Foul Odor after Cleansing -Bioengineered Tissue -Bleeding Controlled with -Treatment Response -Debridement - Subq, 20sq cm #15- L MED LE CLUSTER -Time 10:20 -Correct Patient Yes Yes -Correct Side, Site, Position Yes Yes -Correct Procedure Yes -Procedure Performed Yes -Type of Procedure Debridement -Clinical Debridement Subcutaneous -Tissue Removed Subcutaneous -Post Debridement (cm) - Length 0.6 -Post Debridement (cm) - Width 0.9 -Post Debridement (cm) - Depth 0.1 -Total Square (Post) (cm) 0.54 -Area of Debridement (cm) - Length 0.6 -Area of Debridement (cm) - Width 0.9 -Total Square (Area) (cm) 0.54 -Tunneling No -Undermining/Tunneling No -Circular Undermining No -Wound/Ulcer Outcome Not Healed Healed- Epithelialized -Ulcer Cleansing Rinsed/ Irrigated with Saline -Foul Odor after Cleansing No -Bioengineered Tissue No -Bleeding Controlled with Pressure Pressure,Silver Nitrate -Treatment Response Procedure Tolerated Well -Debridement - Subq, 20sq cm No #18 R Medial ankle -Time 10:18 10:21 -Correct Patient Yes Yes -Correct Side, Site, Position Yes Yes -Correct Procedure Yes Yes -Procedure Performed Yes Yes -Type of Procedure Debridement Debridement -Clinical Debridement Subcutaneous Subcutaneous -Tissue Removed Subcutaneous Subcutaneous -Post Debridement (cm) - Length 2 2.5 -Post Debridement (cm) - Width 4 3.5 -Post Debridement (cm) - Depth 0.1 0.1 -Total Square (Post) (cm) 8 8.75 -Area of Debridement (cm) - Length 2 2.5 -Area of Debridement (cm) - Width 4 3.5 -Total Square (Area) (cm) 8 8.75 -Tunneling No No -Undermining/Tunneling No No -Circular Undermining No No -Wound/Ulcer Outcome Not Healed Not Healed -Ulcer Cleansing Rinsed/ Rinsed/ Irrigated with Irrigated with Saline Saline -Foul Odor after Cleansing No No -Bioengineered Tissue No No -Bleeding Controlled with Pressure Pressure -Treatment Response Procedure Procedure Tolerated Well Tolerated Well -Debridement - Subq, 20sq cm No Yes -Debridement, SubQ, ea addt'l 20sq cm 1 or part thereof #16 Right Medial Superior cluster -Time 10:20 10:22 -Correct Patient Yes Yes -Correct Side, Site, Position Yes Yes -Correct Procedure Yes Yes -Procedure Performed Yes Yes -Type of Procedure Debridement Debridement -Clinical Debridement Subcutaneous Subcutaneous -Tissue Removed Subcutaneous Subcutaneous -Post Debridement (cm) - Length 3 2.4 -Post Debridement (cm) - Width 1.8 1.5 -Post Debridement (cm) - Depth 0.2 0.2 -Total Square (Post) (cm) 5.4 3.60 -Area of Debridement (cm) - Length 3 2.4 -Area of Debridement (cm) - Width 1.8 1.5 -Total Square (Area) (cm) 5.4 3.60 -Tunneling No No -Undermining/Tunneling No No -Circular Undermining No No -Wound/Ulcer Outcome Not Healed Not Healed -Ulcer Cleansing Rinsed/ Rinsed/ Irrigated with Irrigated with Saline Saline -Foul Odor after Cleansing No No -Bioengineered Tissue No No -Bleeding Controlled with Pressure Pressure -Treatment Response Procedure Procedure Tolerated Well Tolerated Well -Debridement - Subq, 1st 20sq cm No No -Debridement, SubQ, ea addt'l 20sq cm or part thereof #14- R LAT ANKLE -Time 10:21 10:23 -Correct Patient Yes Yes -Correct Side, Site, Position Yes Yes -Correct Procedure Yes Yes -Procedure Performed Yes Yes -Type of Procedure Debridement Debridement -Clinical Debridement Subcutaneous Subcutaneous -Tissue Removed Subcutaneous Subcutaneous -Post Debridement (cm) - Length 2.0 1.5 -Post Debridement (cm) - Width 8.0 8.0 -Post Debridement (cm) - Depth 0.1 0.1 -Total Square (Post) (cm) 16.00 12.00 -Area of Debridement (cm) - Length 2.0 1.5 -Area of Debridement (cm) - Width 8.0 8.0 -Total Square (Area) (cm) 16.00 12.00 -Tunneling No No -Undermining/Tunneling No No -Circular Undermining No No -Wound/Ulcer Outcome Not Healed Not Healed -Ulcer Cleansing Rinsed/ Rinsed/ Irrigated with Irrigated with Saline Saline -Foul Odor after Cleansing No No -Bioengineered Tissue No No -Bleeding Controlled with Pressure Pressure -Treatment Response Procedure Procedure Tolerated Well Tolerated Well -Debridement - Subq, 1st 20sq cm Yes No -Debridement, SubQ, ea addt'l 20sq cm 1 or part thereof Pain Scale: 0-10 Numeric Is Patient Pain Free? Yes Yes WC - Nurse 3 - General Ulcer D/C NN Start: 09/28/23 09:59 Freq: Status: Active Protocol: Activity Type Activity Date Activity User E-sign Co-sign Detail Recorded Client Recorded Date Recorded By Document 09/28/23 10:32 GM [id number] 09/28/23 10:47 GM Document 10/05/23 11:07 DL Desktop 10/05/23 11:11 DL Document 10/12/23 11:42 [facility] Desktop 10/12/23 11:46 BMF Document 10/19/23 10:36 GM Desktop 10/19/23 10:38 GM Document 10/26/23 10:38 RB Desktop 10/26/23 10:41 RB 09/28/23 10/05/23 10/12/23 10:32 11:07 11:42 [facility] Center Nurse 3 #17 Right sinclair -Ulcer Cleansing Rinsed/ Irrigated with Saline -Foul Odor after Cleansing No -Other Dressing aqaucel ex -Primary Dressing Covered/Secured with Dry Gauze & Roll Gauze, Secured with Tape #15- L MED LE CLUSTER -Ulcer Cleansing Not Cleansed Rinsed/ Rinsed/ Irrigated with Irrigated with Saline Saline -Foul Odor after Cleansing No No No -Negative Pressure Wound Therapy N/A -Primary Dressing Applied Aquacel Extra, Aquacel Extra, Other Fibracol Plus 4x4 -Other Dressing ABD aquacel ex per rb rn -Primary Dressing Covered/Secured with Dry Gauze Dry Gauze & Roll Gauze, Secured with Tape -Aquacel Extra 1 0 -Fibracol Plus 4x4 0 #18 R Medial ankle -Ulcer Cleansing Rinsed/ Rinsed/ Irrigated with Irrigated with Saline Saline -Foul Odor after Cleansing No No -Primary Dressing Applied Aquacel Extra Aquacel Extra, Fibracol Plus 4x4 -Other Dressing per rb rn -Primary Dressing Covered/Secured with Dry Gauze & Roll Gauze, Secured with Tape -Aquacel Extra 1 1 -Aquacel AG 4x4 -Fibracol Plus 4x4 1 #16 Right Medial Superior cluster -Ulcer Cleansing Not Cleansed Rinsed/ Rinsed/ Irrigated with Irrigated with Saline Saline -Foul Odor after Cleansing No No No -Primary Dressing Applied Aquacel Extra, Aquacel Extra, Other Fibracol Plus 4x4 -Other Dressing abd aquacel ex per rb rn -Primary Dressing Covered/Secured with Dry Gauze Dry Gauze & Roll Gauze, Secured with Tape -Aquacel Extra 1 0 -Aquacel AG 4x4 -Fibracol Plus 4x4 0 #14- R LAT ANKLE -Ulcer Cleansing Not Cleansed Rinsed/ Rinsed/ Irrigated with Irrigated with Saline Saline -Foul Odor after Cleansing No No No -Primary Dressing Applied Other Aquacel Extra, Fibracol Plus 4x4 -Other Dressing abd aquacel ex per rb rn -Primary Dressing Covered/Secured with Dry Gauze Dry Gauze & Roll Gauze -Aquacel Extra 0 -Fibracol Plus 4x4 0 radha -Multi-Layered Wrap Application Multi-Layer Multi-Layer Comp - Bilat ($ Comp - Bilat ($ ) ) -Other per rb rn Left -Multi-Layered Wrap Application Multi-Layer Comp - Bilat ($ ) -Other 3 SETS SENT used 3 for his long legs; applied per rb rn Treatment Response Procedure Procedure Tolerated Well Tolerated Well Pain Scale: 0-10 Numeric Is Patient Pain Free? Yes Yes Yes Teaching: Wound Center Control Swelling with Leg Elevation -Person Taught -Teaching Method -Response to teaching WC - Visit Discharge Discharge Condition Stable Stable Stable Ambulatory Status Wheelchair Ambulatory, Wheelchair Walker, Wheelchair Transportation Private Auto ecf Medication Reconcilliation completed & Yes provided to patient/care provider Clinical Summary of Care Provided Yes Facility Type [facility] Facility Orders Sent Yes 10/19/23 10/26/23 10:36 10:38 Wound Care Center Nurse 3 #17 Right sinclair -Ulcer Cleansing -Foul Odor after Cleansing -Other Dressing -Primary Dressing Covered/Secured with #15- L MED LE CLUSTER -Ulcer Cleansing Not Cleansed -Foul Odor after Cleansing No -Negative Pressure Wound Therapy -Primary Dressing Applied -Other Dressing remainder of supply -Primary Dressing Covered/Secured with -Aquacel Extra -Fibracol Plus 4x4 #18 R Medial ankle -Ulcer Cleansing Not Cleansed Wound Cleanser -Foul Odor after Cleansing No -Primary Dressing Applied Aquacel Extra, Aquacel AG 4x4 Fibracol Plus 4x4 -Other Dressing abd -Primary Dressing Covered/Secured with Dry Gauze, Dry Gauze & Secured with Roll Gauze, Tape Secured with Tape -Aquacel Extra 1 -Aquacel AG 4x4 1 -Fibracol Plus 4x4 1 #16 Right Medial Superior cluster -Ulcer Cleansing Not Cleansed Wound Cleanser -Foul Odor after Cleansing No -Primary Dressing Applied Aquacel AG 4x4 -Other Dressing remainder of abd suply -Primary Dressing Covered/Secured with Dry Gauze,Dry Gauze & Roll Gauze,Secured with Tape -Aquacel Extra -Aquacel AG 4x4 1 -Fibracol Plus 4x4 #14- R LAT ANKLE -Ulcer Cleansing Not Cleansed -Foul Odor after Cleansing No -Primary Dressing Applied -Other Dressing remainder of aquacel AG/ supply ABD -Primary Dressing Covered/Secured with Dry Gauze & Roll Gauze, Secured with Tape -Aquacel Extra -Fibracol Plus 4x4 radha -Multi-Layered Wrap Application Multi-Layer Multi-Layer Comp - Bilat ($ Comp - Bilat ($ ) ) -Other Left -Multi-Layered Wrap Application -Other Treatment Response Procedure Tolerated Well Pain Scale: 0-10 Numeric Is Patient Pain Free? Yes Yes Teaching: Wound Center Control Swelling with Leg Elevation -Person Taught Patient -Teaching Method Discussion -Response to teaching Verbalize understanding WC - Visit Discharge Discharge Condition Stable Stable Ambulatory Status Wheelchair Wheelchair Transportation Private Auto [facility] transport Medication Reconcilliation completed & Yes No provided to patient/care provider Clinical Summary of Care Provided Yes Yes Facility Type Orders Sent Additional Wound Wound debrided: Right lateral ankle/foot Type of Debridement: Excisional debridement Anesthesia Used: 5% Lidocaine Gel Depth: Down to and including healthy tissue and in the subcutaneous layer Percentage of wound debrided: 100 Instrument Used: 5mm curette Tissue Removed: Slough and devitalized tissue Severity: Fat Layer Exposed Amount of bleeding with debridement: Mild Bleeding Controlled with: Pressure Patient tolerated procedure: Patient tolerated procedure well Additional Wound Wound debrided: Right medial foot/ankle Type of Debridement: Excisional debridement Anesthesia Used: 5% Lidocaine Gel Depth: Down to and including healthy tissue and in the subcutaneous layer Percentage of wound debrided: 100 Instrument Used: 5mm curette Tissue Removed: Slough and devitalized tissue Severity: Fat Layer Exposed Amount of bleeding with debridement: Mild Bleeding Controlled with: Pressure Assessment/Plan Assessment/Plan (1) Ulcer of right lower extremity with fat layer exposed: CODE(S): L97.912 - Non-pressure chronic ulcer of unspecified part of right lower leg with fat layer exposed (2) Ulcer of left lower extremity with fat layer exposed: CODE(S): L97.922 - Non-pressure chronic 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 As above, bilateral lower extremity edema with much improvement, compression applied much better this week. Left lower extremity ulcer is healed. Right medial sinclair with minimal improvement but still concern for increased drainage. Due to rare growth at last culture, switch to Aquacel Ag and for ease of dressing, will switch all other ulcers to Aquacel Ag as well. Continue foam/ super absorbent dressing. Continue 3M wraps. Change dressing and wrap on Monday and Monday at the facility. Continue use of lymphedema pump twice daily. Leg elevation and compression also very strongly recommended, he voiced understanding. Continue other chronic wound care. His questions were answered and he was advised to call with any further questions or concerns. Follow-up in 1 week. This note was generated with [employer] dictation software. It may contain incorrect words, spelling, and punctuation that were not noted in checking the note before signing.
--- NOTE | 2023-11-03 12:32 | WC ---
2.15.24 LT LOWER MED EXT CLUSTER
--- NOTE | 2023-11-03 12:33 | WC ---
2.15.24 RT MED CLUSTER
--- NOTE | 2023-11-03 12:41 | WC ---
2.15.24 RT LAT ANKLE
== END 2023-10-26 23:59 | disposition home or self-care (01) ==
LOC: WC 10:00
PROVIDERS: PCP Family Medicine; Referring Provider Internal Medicine; Visit Provider Internal Medicine
DX: I87.2 Venous insufficiency (chronic) (peripheral) (principal); L97.822 Non-pressure chronic ulcer of other part of left lower leg with fat layer exposed; L97.812 Non-pressure chronic ulcer of other part of right lower leg with fat layer exposed; L97.312 Non-pressure chronic ulcer of right ankle with fat layer exposed; I89.0 Lymphedema, not elsewhere classified; R60.0 Localized edema
CPT/HCPCS: 11042; 11045; 29581; 87070; 87075; 87077; 87186; 87205

== ENCOUNTER 2023-11-24 10:00 | Outpatient (RCR) | payer MEDICARE, MEDICAID, SELFPAY ==
[2023-10-27 00:11] VITALS: BP 131/65; PULSE 68; RESP 18; TEMP 36.4; O2SAT 97
[2023-11-02 10:44] VITALS: BP 139/71; PULSE 62; RESP 18; TEMP 36.8
--- NOTE | 2023-11-02 12:22 | PN.PCM_ITS ---
History of Present Illness Date of Service: 11/02/23 Chief Complaint: Bilateral lower extremity ulcers History of Wound: Mr. Boles is an 83-year-old currently residing at [facility] who presents due to nonhealing bilateral lower extremity ulceration. He was seen here a few months ago and discharged after he achieved healing. Recommendation was for continued use of his lymphedema pump however he states that this has not been used consistently. Current ulceration has been present for weeks. No chills, fever or otherwise feeling of unwell. Progress of Wound: He has no acute concerns at this time. He was switched to Aquacel Ag at his last visit for uniformity of dressing and minimal growth to right superior ulcer. However appears that his ulcers have worsened slightly. Edema is stable. Left lower extremity remains healed. Objective Data Objective Data Vital Signs: Vital Signs Temp Pulse Resp BP Pulse Ox 98.2 F 62 18 139/71 H 97 11/02/23 10:44 11/02/23 10:44 11/02/23 10:44 11/02/23 10:44 10/27/23 00:11 Charges/Coding Procedures Integumentary 111xxx-113xx: [id number] Jaye subq tissue 20 sq cm/< Add On Codes: 77301 Jaye subq tissue add-on (x1 Additional Sq Cm debrided, please refer to clinical note. ) Physical Exam Const alert, oriented x3 and no apparent distress General Appearance: cooperative, comfortable and well kempt HEENT normocephalic and head/scalp atraumatic Eyes EOMs intact bilaterally General Eye: normal appearance of both eyes Neck full ROM General: normal visual inspection Resp normal respiratory effort Effort and Inspection: able to speak in complete sentences Extremity General Extremity: edema Skin Wounds: wounds noted Neuro oriented x3, CN's II-XII intact bilaterally, moves all extremities and no focal motor deficits Psych mental status grossly normal, thought process normal, cooperative and affect normal Debridement Note Debridement Note Wound debrided: Right sinclair ( Superior ) Type of Debridement: Excisional debridement Anesthesia Used: 5% Lidocaine Gel Depth: in the subcutaneous layer Percentage of wound debrided: 100 Instrument Used: 5mm curette Tissue Removed: Slough and devitalized tissue Severity: Fat Layer Exposed Amount of bleeding with debridement: Mild Bleeding Controlled with: Compression and gauze Patient tolerated procedure: Patient tolerated procedure well Post-Debridement Measurements and Additional Note: Post-Debridement Measurements/Treatment WC - Nurse 1 - General Ulcer Assessment Start: 11/02/23 10:44 Freq: Status: Active Protocol: LINDA Activity Type Activity Date Activity User E-sign Co-sign Detail Recorded Client Recorded Date Recorded By Document 11/02/23 10:44 YESENIA Desktop 11/02/23 10:48 RB 11/02/23 10:44 - Today's Visit Information Type of service Follow-up Visit (Physician/POLICE STENOGRAPHER ) Arrival Mode Walker, Wheelchair Transfer Assistance Manual Patient Identification Verified (Name & Yes ) Patient Requires Transmission-Based No Precautions Vital Signs Temperature (97.8 F-99.1 F) 98.2 F Temperature Source Temporal Pulse Rate (60-100) 62 Pulse Location Monitor Respiratory Rate (12-18) 18 Respiratory rate source Observation Blood Pressure (90/60-120/80) 139/71 H Blood Pressure Mean (mm Hg) 93 Source Monitor Position Sitting Blood Pressure Location Left Arm History Since Last Visit- (Skip if this is Patient's initial visit) Have you changed medications since your No last visit? Any new allergies or adverse reactions No Had a fall/change in ADL's that may No increase risk of falls Signs or symptoms of abuse and/or No neglect since last visit Have you been in the hospital since your No last visit? Has dressing in place as prescribed Yes Has compression in place as prescribed Yes Has offloadiing in place as prescribed No Experienced any changes in pain level or No management Pain Scale: 0-10 Numeric Is Patient Pain Free? No bilat LE -Description Aching -Intensity 5 -Duration (hours) Acute -Pain Behavior Withdrawal from Touch -Pain Aggravating Factors Changing Position, Exercise/ Activity, Walking -Alleviating Factors/Interventions Medication -Effectiveness of Alleviating Factor/ Minimally Intervention effective - Nurse 1 - General Ulcer Measurement Start: 11/02/23 10:44 Freq: Status: Active Protocol: Activity Type Activity Date Activity User E-sign Co-sign Detail Recorded Client Recorded Date Recorded By Document 11/02/23 10:44 YESENIA Front Rowktop 11/02/23 10:48 RB 11/02/23 10:44 Wound Center Nurse 1 #18 R Medial ankle -Combined with other wound No -Current Size (cm) - Length 0.1 -Current Size (cm) - Width 0.1 -Current Size (cm) - Depth 0.1 -Total Square Cm 0.01 -Tunneling No -Undermining/Tunneling No -Circular Undermining No -Exudate Amt Large -Exudate Type Serosanguineous -Wound Margin Distinct, Outline Attached -Granulation Amt Medium (34-66%) -Granulation Quality [place] -Slough/Fibrin Yes -Necrosis Amt Medium (34-66%) -Necrotic Tissue Type Adherent Slough -Structure Exposed N/A -Texture ([place]-wound Skin Appearance) Assessed -Moisture ([place]-wound Skin Appearance) Assessed -Color ([place]-wound Skin Appearance) Hemosiderin Staining -Temperature ([place]-wound Skin No Abnormality Appearance) (Pt Warm) -Tenderness on Palpation ([place]-wound No Skin Appearance) -Ulcer Cleansing Wound Cleanser -Foul Odor after Cleansing No -Anesthetic Used 5% Lidocaine Gel #16 Right Medial Superior cluster -Combined with other wound No -Current Size (cm) - Length 0.1 -Current Size (cm) - Width 0.1 -Current Size (cm) - Depth 0.1 -Total Square Cm 0.01 -Tunneling No -Undermining/Tunneling No -Circular Undermining No -Exudate Amt Large -Exudate Type Serosanguineous -Wound Margin Distinct, Outline Attached -Granulation Amt Medium (34-66%) -Granulation Quality [place] -Slough/Fibrin Yes -Necrosis Amt Medium (34-66%) -Necrotic Tissue Type Adherent Slough -Structure Exposed N/A -Texture ([place]-wound Skin Appearance) Assessed -Moisture ([place]-wound Skin Appearance) Assessed -Color ([place]-wound Skin Appearance) Hemosiderin Staining -Temperature ([place]-wound Skin No Abnormality Appearance) (Pt Warm) -Tenderness on Palpation ([place]-wound No Skin Appearance) -Ulcer Cleansing Wound Cleanser -Foul Odor after Cleansing No -Anesthetic Used 5% Lidocaine Gel #14- R LAT ANKLE -Combined with other wound No -Current Size (cm) - Length 0.1 -Current Size (cm) - Width 0.1 -Current Size (cm) - Depth 0.1 -Total Square Cm 0.01 -Tunneling No -Undermining/Tunneling No -Circular Undermining No -Exudate Amt Large -Exudate Type Serosanguineous -Wound Margin Distinct, Outline Attached -Granulation Amt Medium (34-66%) -Granulation Quality [place] -Slough/Fibrin Yes -Necrosis Amt Medium (34-66%) -Necrotic Tissue Type Adherent Slough -Structure Exposed N/A -Texture ([place]-wound Skin Appearance) Assessed -Moisture ([place]-wound Skin Appearance) Assessed -Color ([place]-wound Skin Appearance) Hemosiderin Staining -Temperature ([place]-wound Skin No Abnormality Appearance) (Pt Warm) -Tenderness on Palpation ([place]-wound No Skin Appearance) -Ulcer Cleansing Wound Cleanser -Foul Odor after Cleansing No -Anesthetic Used 5% Lidocaine Gel Lower Limb Edema Present Yes Right Calf (cm) 39.5 Right Ankle (cm) 31.8 Left Calf (cm) 44 Left Ankle (cm) 28 WC - Nurse 2 - General Ulcer CM Notes Start: 11/02/23 10:44 Freq: Status: Active Protocol: Activity Type Activity Date Activity User E-sign Co-sign Detail Recorded Client Recorded Date Recorded By Document 11/02/23 10:58 GM Desktop 11/02/23 11:08 GM 11/02/23 10:58 Wound Center Nurse 2 #18 R Medial ankle -Time 10:59 -Correct Patient Yes -Correct Side, Site, Position Yes -Correct Procedure Yes -Procedure Performed Yes -Type of Procedure Debridement -Clinical Debridement Subcutaneous -Tissue Removed Subcutaneous -Post Debridement (cm) - Length 2.5 -Post Debridement (cm) - Width 4 -Post Debridement (cm) - Depth 0.1 -Total Square (Post) (cm) 10.0 -Area of Debridement (cm) - Length 2.5 -Area of Debridement (cm) - Width 4 -Total Square (Area) (cm) 10.0 -Tunneling No -Undermining/Tunneling No -Circular Undermining No -Wound/Ulcer Outcome Not Healed -Ulcer Cleansing Rinsed/ Irrigated with Saline -Foul Odor after Cleansing No -Bioengineered Tissue No -Bleeding Controlled with Pressure -Treatment Response Procedure Tolerated Well -Debridement - Subq, 1st 20sq cm No #16 Right Medial Superior cluster -Time 10:59 -Correct Patient Yes -Correct Side, Site, Position Yes -Correct Procedure Yes -Procedure Performed Yes -Type of Procedure Debridement -Clinical Debridement Subcutaneous -Tissue Removed Subcutaneous -Post Debridement (cm) - Length 2.5 -Post Debridement (cm) - Width 2 -Post Debridement (cm) - Depth 0.2 -Total Square (Post) (cm) 5.0 -Area of Debridement (cm) - Length 2.5 -Area of Debridement (cm) - Width 2 -Total Square (Area) (cm) 5.0 -Tunneling No -Undermining/Tunneling No -Circular Undermining No -Wound/Ulcer Outcome Not Healed -Ulcer Cleansing Rinsed/ Irrigated with Saline -Foul Odor after Cleansing No -Bioengineered Tissue No -Bleeding Controlled with Pressure -Treatment Response Procedure Tolerated Well -Debridement - Subq, 1st 20sq cm No #14- R LAT ANKLE -Time 11:00 -Correct Patient Yes -Correct Side, Site, Position Yes -Correct Procedure Yes -Procedure Performed Yes -Type of Procedure Debridement -Clinical Debridement Subcutaneous -Tissue Removed Subcutaneous -Post Debridement (cm) - Length 2 -Post Debridement (cm) - Width 11.5 -Post Debridement (cm) - Depth 0.1 -Total Square (Post) (cm) 23.0 -Area of Debridement (cm) - Length 2 -Area of Debridement (cm) - Width 11.5 -Total Square (Area) (cm) 23.0 -Tunneling No -Undermining/Tunneling No -Circular Undermining No -Wound/Ulcer Outcome Not Healed -Ulcer Cleansing Wound Cleanser -Foul Odor after Cleansing No -Bioengineered Tissue No -Bleeding Controlled with Pressure -Treatment Response Procedure Tolerated Well -Debridement - Subq, 1st 20sq cm Yes -Debridement, SubQ, ea addt'l 20sq cm 1 or part thereof Pain Scale: 0-10 Numeric Is Patient Pain Free? Yes WC - Nurse 3 - General Ulcer D/C NN Start: 11/02/23 10:44 Freq: Status: Active Protocol: Activity Type Activity Date Activity User E-sign Co-sign Detail Recorded Client Recorded Date Recorded By Document 11/02/23 11:55 RB [id number] 11/02/23 11:58 RB 11/02/23 11:55 Wound Care Center Nurse 3 #18 R Medial ankle -Ulcer Cleansing Wound Cleanser -Other Dressing FIBRACOL/ AQUACEL EXTRA -Primary Dressing Covered/Secured with Dry Gauze & Roll Gauze, Secured with Tape -Other Covering ABD #16 Right Medial Superior cluster -Ulcer Cleansing Wound Cleanser -Primary Dressing Applied Aquacel Extra, Fibracol Plus 4x4 -Other Dressing ABD -Primary Dressing Covered/Secured with Dry Gauze & Roll Gauze, Secured with Tape -Aquacel Extra 1 -Fibracol Plus 4x4 1 #14- R LAT ANKLE -Ulcer Cleansing Wound Cleanser -Other Dressing FIBRACOL/ AQUACEL EXTRA -Primary Dressing Covered/Secured with Dry Gauze & Roll Gauze, Secured with Tape BILAT LE -Multi-Layered Wrap Application Multi-Layer Comp - Bilat ($ ) Treatment Response Procedure Tolerated Well Pain Scale: 0-10 Numeric Is Patient Pain Free? Yes Teaching: Wound Center Control Swelling with Leg Elevation -Person Taught Patient -Teaching Method Discussion -Response to teaching Reinforcement needed Dressing Your Wound -Person Taught Patient -Teaching Method Discussion, Demonstration -Response to teaching Reinforcement needed WC - Visit Discharge Discharge Condition Stable Ambulatory Status Walker, Wheelchair Transportation Private Auto Medication Reconcilliation completed & No provided to patient/care provider Clinical Summary of Care Provided Yes Notes: PT assited to restroom Additional Wound Wound debrided: Right lateral ankle/foot Type of Debridement: Excisional debridement Anesthesia Used: 5% Lidocaine Gel Depth: Down to and including healthy tissue and in the subcutaneous layer Percentage of wound debrided: 100 Instrument Used: 5mm curette Tissue Removed: Slough and devitalized tissue Severity: Fat Layer Exposed Amount of bleeding with debridement: Mild Bleeding Controlled with: Pressure Patient tolerated procedure: Patient tolerated procedure well Additional Wound Wound debrided: Right medial foot/ankle Type of Debridement: Excisional debridement Anesthesia Used: 5% Lidocaine Gel Depth: Down to and including healthy tissue and in the subcutaneous layer Percentage of wound debrided: 100 Instrument Used: 5mm curette Tissue Removed: Slough and devitalized tissue Severity: Fat Layer Exposed Amount of bleeding with debridement: Mild Bleeding Controlled with: Pressure Assessment/Plan Assessment/Plan (1) Ulcer of right lower extremity with fat layer exposed: CODE(S): L97.912 - Non-pressure chronic ulcer of unspecified part of right lower leg with fat layer exposed (2) Ulcer of left lower extremity with fat layer exposed: CODE(S): L97.922 - Non-pressure chronic 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 Stable bilateral lower extremity edema. However, right lower extremity ulcers with worsening noted. Discontinue Aquacel Ag and go back to Fibracol/Aquacel extra. Cover with superabsorbent dressing. Continue 3M wraps. Change dressing and wrap on Monday and Monday at the facility. Continue use of lymphedema pump twice daily. Leg elevation and compression also very strongly recommended, he voiced understanding. Continue other chronic wound care. His questions were answered and he was advised to call with any further questions or concerns. Follow-up in 1 week. This note was generated with [employer] dictation software. It may contain incorrect words, spelling, and punctuation that were not noted in checking the note before signing.
[2023-11-10 12:20] VITALS: BP 117/55; PULSE 60; RESP 18; TEMP 36.3
--- NOTE | 2023-11-10 13:29 | VDLE_ITS ---
Reason For Study: LLE Edema RIGHT LEFT FV is compressible, spontaneous, phasic, GSV is normal. competent and demonstrates normal CFV is compressible, spontaneous, phasic, augmentation. competent, and demonstrates normal Procedure augmentation. This is a venous duplex using B-mode, color FV is compressible, spontaneous, phasic, flow and spectral Doppler. competent and demonstrates normal Exam performed in department. augmentation. The exam was diagnostic. POP V is compressible, spontaneous, phasic, The study was technically difficult. competent and demonstrates normal A preliminary report was called and/or faxed augmentation. to [facility]. T/P Trunk is compressible. PTV is compressible. LT PerV is compressible. VL/Venous Duplex US, Unilateral Interpretation Summary There is no evidence of left lower extremity deep vein thrombosis. Left great s aphenous vein appears patent and compressible segmentally. Normal flow patterns right common femoral vein This examination was noted to be technically difficult Ordering Physician: Mariajose Rashid Referring Physician: Pablito Brower Performed By: Gualberto Mcduffie RVT
--- NOTE | 2023-11-10 14:01 | PN.PCM_ITS ---
History of Present Illness Date of Service: 11/10/23 Chief Complaint: Bilateral lower extremity ulcers History of Wound: Mr. Boles is an 83-year-old currently residing at [facility] who presents due to nonhealing bilateral lower extremity ulceration. He was seen here a few months ago and discharged after he achieved healing. Recommendation was for continued use of his lymphedema pump however he states that this has not been used consistently. Current ulceration has been present for weeks. No chills, fever or otherwise feeling of unwell. Progress of Wound: Denilson presents today as a courtesy visit for DR. Rashid. nurse was concerned for infection due to green colored drainage from right lower leg ulcer. He also c/o increased pain in his left leg for the past 2 days and has had increased swelling. His ulcers of his left leg remain healed. Ulcers of right lower leg were not significant or showing signs of infection. Objective Data Objective Data Vital Signs: Vital Signs Temp Pulse Resp BP Pulse Ox 97.3 F L 60 18 117/55 L 97 11/10/23 12:20 11/10/23 12:20 11/10/23 12:20 11/10/23 12:20 10/27/23 00:11 Physical Exam Const alert, oriented x3 and no apparent distress General Appearance: cooperative, comfortable and well kempt HEENT normocephalic and head/scalp atraumatic Eyes EOMs intact bilaterally General Eye: normal appearance of both eyes Neck full ROM General: normal visual inspection Resp normal respiratory effort Effort and Inspection: able to speak in complete sentences Extremity General Extremity: edema Skin Wounds: wounds noted Neuro oriented x3, moves all extremities and no focal motor deficits Psych mental status grossly normal, thought process normal, cooperative and affect nor mal Debridement Note Debridement Note Wound debrided: Right sinclair ( Superior ) Type of Debridement: Excisional debridement Anesthesia Used: 5% Lidocaine Gel Depth: in the subcutaneous layer Percentage of wound debrided: 100 Instrument Used: 5mm curette Tissue Removed: Slough and devitalized tissue Severity: Fat Layer Exposed Amount of bleeding with debridement: Mild Bleeding Controlled with: Compression and gauze Patient tolerated procedure: Patient tolerated procedure well Post-Debridement Measurements and Additional Note: Post-Debridement Measurements/Treatment JANAY - Nurse 1 - General Ulcer Assessment Start: 11/02/23 10:44 Freq: Status: Active Protocol: WC.LOWEXT Activity Type Activity Date Activity User E-sign Co-sign Detail Recorded Client Recorded Date Recorded By Document 11/02/23 10:44 RB Desktop 11/02/23 10:48 RB Document 11/10/23 12:20 RB Desktop 11/10/23 12:26 RB 11/02/23 11/10/23 10:44 12:20 WC - Today's Visit Information Type of service Follow-up Visit Follow-up Visit (Physician/COORDINATOR OF EVALUATION (Physician/COORDINATOR OF EVALUATION ) ) Arrival Mode Walker, Wheelchair Wheelchair Transfer Assistance Manual Manual Patient Identification Verified (Name & Yes Yes ) Patient Requires Transmission-Based No No Precautions Vital Signs Temperature (97.8 F-99.1 F) 98.2 F 97.3 F L Temperature Source Temporal Temporal Pulse Rate (60-100) 62 60 Pulse Location Monitor Monitor Respiratory Rate (12-18) 18 18 Respiratory rate source Observation Observation Blood Pressure (90/60-120/80) 139/71 H 117/55 L Blood Pressure Mean (mm Hg) 93 75 Source Monitor Monitor Position Sitting Semi-Fowlers Blood Pressure Location Left Arm Left Arm History Since Last Visit- (Skip if this is Patient's initial visit) Have you changed medications since your No No last visit? Any new allergies or adverse reactions No No Had a fall/change in ADL's that may No No increase risk of falls Signs or symptoms of abuse and/or No No neglect since last visit Have you been in the hospital since your No No last visit? Has dressing in place as prescribed Yes Yes Has compression in place as prescribed Yes No Has offloadiing in place as prescribed No No Experienced any changes in pain level or No No management Pain Scale: 0-10 Numeric Is Patient Pain Free? No No bilat LE -Description Aching Aching -Intensity 5 10 -Duration (hours) Acute -Pain Behavior Withdrawal from Withdrawal from Touch Touch -Pain Aggravating Factors Changing Exercise/ Position, Activity, Exercise/ Standing Activity, Walking -Alleviating Factors/Interventions Medication Medication -Effectiveness of Alleviating Factor/ Minimally Moderately Intervention effective effective - Nurse 1 - General Ulcer Measurement Start: 11/02/23 10:44 Freq: Status: Active Protocol: Activity Type Activity Date Activity User E-sign Co-sign Detail Recorded Client Recorded Date Recorded By Document 11/02/23 10:44 RB Desktop 11/02/23 10:48 RB Document 11/10/23 12:20 RB Desktop 11/10/23 12:26 RB 11/02/23 11/10/23 10:44 12:20 Wound Center Nurse 1 #18 R Medial ankle -Combined with other wound No No -Current Size (cm) - Length 0.1 0.1 -Current Size (cm) - Width 0.1 0.1 -Current Size (cm) - Depth 0.1 0.1 -Total Square Cm 0.01 0.01 -Tunneling No No -Undermining/Tunneling No No -Circular Undermining No No -Exudate Amt Large -Exudate Type Serosanguineous Serosanguineous -Wound Margin Distinct, Distinct, Outline Outline Attached Attached -Granulation Amt Medium (34-66%) Medium (34-66%) -Granulation Quality [place] Ravens[place] -Slough/Fibrin Yes Yes -Necrosis Amt Medium (34-66%) Medium (34-66%) -Necrotic Tissue Type Adherent Slough Adherent Slough -Structure Exposed N/A N/A -Texture ([place]-wound Skin Appearance) Assessed Assessed -Moisture ([place]-wound Skin Appearance) Assessed Assessed -Color ([place]-wound Skin Appearance) Hemosiderin Hemosiderin Staining Staining -Temperature ([place]-wound Skin No Abnormality No Abnormality Appearance) (Pt Warm) (Pt Warm) -Tenderness on Palpation ([place]-wound No No Skin Appearance) -Ulcer Cleansing Wound Cleanser Wound Cleanser -Foul Odor after Cleansing No No -Anesthetic Used 5% Lidocaine 4% Lidocaine Gel Solution #16 Right Medial Superior cluster -Combined with other wound No -Current Size (cm) - Length 0.1 0.1 -Current Size (cm) - Width 0.1 0.1 -Current Size (cm) - Depth 0.1 0.1 -Total Square Cm 0.01 0.01 -Tunneling No No -Undermining/Tunneling No No -Circular Undermining No No -Exudate Amt Large Large -Exudate Type Serosanguineous Serosanguineous -Wound Margin Distinct, Distinct, Outline Outline Attached Attached -Granulation Amt Medium (34-66%) Medium (34-66%) -Granulation Quality [place] Ravensworth -Slough/Fibrin Yes Yes -Necrosis Amt Medium (34-66%) Medium (34-66%) -Necrotic Tissue Type Adherent Slough Adherent Slough -Structure Exposed N/A N/A -Texture ([place]-wound Skin Appearance) Assessed Assessed -Moisture ([place]-wound Skin Appearance) Assessed Assessed -Color ([place]-wound Skin Appearance) Hemosiderin Hemosiderin Staining Staining -Temperature ([place]-wound Skin No Abnormality No Abnormality Appearance) (Pt Warm) (Pt Warm) -Tenderness on Palpation ([place]-wound No No Skin Appearance) -Ulcer Cleansing Wound Cleanser Wound Cleanser -Foul Odor after Cleansing No No -Anesthetic Used 5% Lidocaine 4% Lidocaine Gel Solution #14- R LAT ANKLE -Combined with other wound No No -Current Size (cm) - Length 0.1 0.1 -Current Size (cm) - Width 0.1 0.1 -Current Size (cm) - Depth 0.1 0.1 -Total Square Cm 0.01 0.01 -Tunneling No No -Undermining/Tunneling No No -Circular Undermining No No -Exudate Amt Large Large -Exudate Type Serosanguineous Serosanguineous -Wound Margin Distinct, Distinct, Outline Outline Attached Attached -Granulation Amt Medium (34-66%) Medium (34-66%) -Granulation Quality [place] -Slough/Fibrin Yes Yes -Necrosis Amt Medium (34-66%) Medium (34-66%) -Necrotic Tissue Type Adherent Slough Adherent Slough -Structure Exposed N/A N/A -Texture ([place]-wound Skin Appearance) Assessed Assessed -Moisture ([place]-wound Skin Appearance) Assessed Assessed -Color ([place]-wound Skin Appearance) Hemosiderin Hemosiderin Staining Staining -Temperature ([place]-wound Skin No Abnormality No Abnormality Appearance) (Pt Warm) (Pt Warm) -Tenderness on Palpation ([place]-wound No No Skin Appearance) -Ulcer Cleansing Wound Cleanser Wound Cleanser -Foul Odor after Cleansing No No -Anesthetic Used 5% Lidocaine 4% Lidocaine Gel Solution Lower Limb Edema Present Yes Yes Right Calf (cm) 39.5 39 Right Ankle (cm) 31.8 30 Left Calf (cm) 44 41 Left Ankle (cm) 28 34.5 WC - Nurse 2 - General Ulcer CM Notes Start: 11/02/23 10:44 Freq: Status: Active Protocol: Activity Type Activity Date Activity User E-sign Co-sign Detail Recorded Client Recorded Date Recorded By Document 11/02/23 10:58 GM Desktop 11/02/23 11:08 Document 11/10/23 12:46 Desktop 11/10/23 12:52 11/02/23 11/10/23 10:58 12:46 Wound Center Nurse 2 #18 R Medial ankle -Time 10:59 12:46 -Correct Patient Yes Yes -Correct Side, Site, Position Yes Yes -Correct Procedure Yes -Procedure Performed Yes -Type of Procedure Debridement -Clinical Debridement Subcutaneous -Tissue Removed Subcutaneous -Post Debridement (cm) - Length 2.5 -Post Debridement (cm) - Width 4 -Post Debridement (cm) - Depth 0.1 -Total Square (Post) (cm) 10.0 -Area of Debridement (cm) - Length 2.5 -Area of Debridement (cm) - Width 4 -Total Square (Area) (cm) 10.0 -Tunneling No No -Undermining/Tunneling No No -Circular Undermining No -Wound/Ulcer Outcome Not Healed -Ulcer Cleansing Rinsed/ Irrigated with Saline -Foul Odor after Cleansing No -Bioengineered Tissue No -Bleeding Controlled with Pressure -Treatment Response Procedure Tolerated Well -Debridement - Subq, 1st 20sq cm No #16 Right Medial Superior cluster -Time 10:59 12:50 -Correct Patient Yes Yes -Correct Side, Site, Position Yes Yes -Correct Procedure Yes Yes -Procedure Performed Yes Yes -Type of Procedure Debridement Debridement -Clinical Debridement Subcutaneous Subcutaneous -Tissue Removed Subcutaneous Subcutaneous -Post Debridement (cm) - Length 2.5 1.6 -Post Debridement (cm) - Width 2 2.0 -Post Debridement (cm) - Depth 0.2 0.1 -Total Square (Post) (cm) 5.0 3.20 -Area of Debridement (cm) - Length 2.5 1.6 -Area of Debridement (cm) - Width 2 2.0 -Total Square (Area) (cm) 5.0 3.20 -Tunneling No No -Undermining/Tunneling No No -Circular Undermining No No -Wound/Ulcer Outcome Not Healed Not Healed -Ulcer Cleansing Rinsed/ Rinsed/ Irrigated with Irrigated with Saline Saline -Foul Odor after Cleansing No No -Bioengineered Tissue No -Bleeding Controlled with Pressure Pressure -Treatment Response Procedure Procedure Tolerated Well Tolerated Well -Debridement - Subq, 1st 20sq cm No Yes #14- R LAT ANKLE -Time 11:00 -Correct Patient Yes -Correct Side, Site, Position Yes -Correct Procedure Yes -Procedure Performed Yes -Type of Procedure Debridement -Clinical Debridement Subcutaneous -Tissue Removed Subcutaneous -Post Debridement (cm) - Length 2 -Post Debridement (cm) - Width 11.5 -Post Debridement (cm) - Depth 0.1 -Total Square (Post) (cm) 23.0 -Area of Debridement (cm) - Length 2 -Area of Debridement (cm) - Width 11.5 -Total Square (Area) (cm) 23.0 -Tunneling No -Undermining/Tunneling No -Circular Undermining No -Wound/Ulcer Outcome Not Healed -Ulcer Cleansing Wound Cleanser -Foul Odor after Cleansing No -Bioengineered Tissue No -Bleeding Controlled with Pressure -Treatment Response Procedure Tolerated Well -Debridement - Subq, 1st 20sq cm Yes -Debridement, SubQ, ea addt'l 20sq cm 1 or part thereof Pain Scale: 0-10 Numeric Is Patient Pain Free? Yes No bilat LE -Intensity 10 -Duration (hours) Chronic -Pain Behavior No Change in Behavior -Alleviating Factors/Interventions Inactivity/ Resting,Will continue to monitor - Nurse 3 - General Ulcer D/C NN Start: 11/02/23 10:44 Freq: Status: Active Protocol: Activity Type Activity Date Activity User E-sign Co-sign Detail Recorded Client Recorded Date Recorded By Document 11/02/23 11:55 RB [id number] 11/02/23 11:58 RB Document 11/10/23 13:13 Desktop 11/10/23 13:14 11/02/23 11/10/23 11:55 13:13 Wound Care Center Nurse 3 #18 R Medial ankle -Ulcer Cleansing Wound Cleanser -Other Dressing FIBRACOL/ AQUACEL EXTRA -Primary Dressing Covered/Secured with Dry Gauze & Roll Gauze, Secured with Tape -Other Covering ABD #16 Right Medial Superior cluster -Ulcer Cleansing Wound Cleanser Not Cleansed -Foul Odor after Cleansing No -Primary Dressing Applied Aquacel Extra, Aquacel Extra, Fibracol Plus Fibracol Plus 4x4 4x4 -Other Dressing ABD -Primary Dressing Covered/Secured with Dry Gauze & Dry Gauze, Roll Gauze, Secured with Secured with Tape Tape -Aquacel Extra 1 1 -Fibracol Plus 4x4 1 1 #14- R LAT ANKLE -Ulcer Cleansing Wound Cleanser -Other Dressing FIBRACOL/ AQUACEL EXTRA -Primary Dressing Covered/Secured with Dry Gauze & Roll Gauze, Secured with Tape BILAT LE -Multi-Layered Wrap Application Multi-Layer Unna Boot - Comp - Bilat ($ Bilateral ($) ) Treatment Response Procedure Tolerated Well Pain Scale: 0-10 Numeric Is Patient Pain Free? Yes Yes Teaching: Wound Center Control Swelling with Leg Elevation -Person Taught Patient -Teaching Method Discussion -Response to teaching Reinforcement needed Dressing Your Wound -Person Taught Patient -Teaching Method Discussion, Demonstration -Response to teaching Reinforcement needed WC - Visit Discharge Discharge Condition Stable Stable Ambulatory Status Walker, Wheelchair Wheelchair Transportation Private Auto wheeled to [facility] for test Medication Reconcilliation completed & No Yes provided to patient/care provider Clinical Summary of Care Provided Yes Yes Notes: PT assited to restroom Assessment/Plan Assessment/Plan (1) Ulcer of right lower extremity with fat layer exposed: CODE(S): L97.912 - Non-pressure chronic ulcer of unspecified part of right lower leg with fat layer exposed (2) Ulcer of left lower extremity with fat layer exposed: CODE(S): L97.922 - Non-pressure chronic ulcer of unspecified 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 Left lower leg with worsened edema with warmth and tenderness of calf. Venous doppler ordered to r/o DVT. Will also send prescription for antibiotic for possible cellulitis for him to get if negative for DVT. Continue Fibracol/Aquacel extra to ulcers of right lower leg/ankle. Cover with superabsorbent dressing. Place ABD at left ankel crease to pad and will apply UNNA boots. Change dressing and wrap on Monday at the facility. Continue use of lymphedema pump twice daily. Leg elevation and compression also very strong ly recommended, he voiced understanding. Continue other chronic wound care. His questions were answered and he was advised to call with any further questions or concerns. Follow-up in 1 week. This note was generated with [employer] software. It may contain incorrect words, spelling, and punctuation that were not noted in checking the note before signing.
[2023-11-17 11:08] VITALS: BP 128/78; PULSE 67; RESP 18; TEMP 36.1
[2023-11-17 12:09] VITALS: BP 128/72; PULSE 67; RESP 18; TEMP 36.1
--- NOTE | 2023-11-17 12:58 | PCM.WC.PN ---
History of Present Illness Date of Service: 11/17/23 Chief Complaint: Bilateral lower extremity ulcers History of Wound: Mr. Boles is an 83-year-old currently residing at [facility] who presents due to nonhealing bilateral lower extremity ulceration. He was seen here a few months ago and discharged after he achieved healing. Recommendation was for continued use of his lymphedema pump however he states that this has not been used consistently. Current ulceration has been present for weeks. No chills, fever or otherwise feeling of unwell. Progress of Wound: Denilson presents today as a courtesy visit for Dr. Rashid. Ulcers of right lower leg were improved without signs of infection. Venous duplex was negative for DVT. He tolerated treatment with UNNA boots and edema is stable in both legs today. Objective Data Objective Data Vital Signs: Vital Signs Temp Pulse Resp BP Pulse Ox 97 F L 67 18 128/72 H 97 11/17/23 12:09 11/17/23 12:09 11/17/23 12:11/17/23 12:10/27/23 00:11 Physical Exam Const alert, oriented x3 and no apparent distress General Appearance: cooperative, comfortable and well kempt HEENT normocephalic and head/scalp atraumatic Eyes EOMs intact bilaterally General Eye: normal appearance of both eyes Neck full ROM General: normal visual inspection Resp normal respiratory effort Effort and Inspection: able to speak in complete sentences Extremity General Extremity: edema Skin Wounds: wounds noted Neuro oriented x3, moves all extremities and no focal motor deficits Psych mental status grossly normal, thought process normal, cooperative and affect normal Debridement Note Debridement Note Wound debrided: Right sinclair ( Superior ) Laterality: Right Type of Debridement: Selective debridement Anesthesia Used: Cetacaine Depth: Down to and including healthy tissue and in the subcutaneous layer Percentage of wound debrided: 100 Instrument Used: - (gauze) Tissue Removed: Slough and devitalized tissue Severity: Fat Layer Exposed Amount of bleeding with debridement: Mild Bleeding Controlled with: Compression and gauze Patient tolerated procedure: Patient tolerated procedure well Post-Debridement Measurements and Additional Note: Post-Debridement Measurements/Treatment JANAY - Nurse 1 - General Ulcer Assessment Start: 11/02/23 10:44 Freq: Status: Active Protocol: LINDA Activity Type Activity Date Activity User E-sign Co-sign Detail Recorded Client Recorded Date Recorded By Document 11/02/23 10:44 RB Desktop 11/02/23 10:48 RB Document 11/10/23 12:20 RB Desktop 11/10/23 12:26 RB Document 11/17/23 12:09 RB Desktop 11/17/23 12:10 RB 11/02/23 11/10/23 11/17/23 10:44 12:20 12:09 WC - Today's Visit Information Type of service Follow-up Visit Follow-up Visit Follow-up Visit (Physician/LOOPER OPERATOR (Physician/LOOPER OPERATOR (Physician/LOOPER OPERATOR ) ) ) Arrival Mode Walker, Wheelchair Wheelchair Wheelchair Transfer Assistance Manual Manual Manual Patient Identification Verified (Name & Yes Yes Yes ) Patient Requires Transmission-Based No No No Precautions Vital Signs Temperature (97.8 F-99.1 F) 98.2 F 97.3 F L 97 F L Temperature Source Temporal Temporal Oral Pulse Rate (60-100) 62 60 67 Pulse Location Monitor Monitor Monitor Respiratory Rate (12-18) 18 18 18 Respiratory rate source Observation Observation Observation Blood Pressure (90/60-120/80) 139/71 H 117/55 L 128/72 H Blood Pressure Mean (mm Hg) 93 75 90 Source Monitor Monitor Monitor Position Sitting Semi-Fowlers Semi-Fowlers Blood Pressure Location Left Arm Left Arm Left Arm History Since Last Visit- (Skip if this is Patient's initial visit) Have you changed medications since your No No No last visit? Any new allergies or adverse reactions No No No Had a fall/change in ADL's that may No No No increase risk of falls Signs or symptoms of abuse and/or No No No neglect since last visit Have you been in the hospital since your No No No last visit? Has dressing in place as prescribed Yes Yes Yes Has compression in place as prescribed Yes No Yes Has offloadiing in place as prescribed No No No Experienced any changes in pain level or No No No management Pain Scale: 0-10 Numeric Is Patient Pain Free? No No Yes bilat LE -Description Aching Aching -Intensity 5 10 -Duration (hours) Acute -Pain Behavior Withdrawal from Withdrawal from Touch Touch -Pain Aggravating Factors Changing Exercise/ Position, Activity, Exercise/ Standing Activity, Walking -Alleviating Factors/Interventions Medication Medication -Effectiveness of Alleviating Factor/ Minimally Moderately Intervention effective effective WC - Nurse 1 - General Ulcer Measurement Start: 11/02/23 10:44 Freq: Status: Active Protocol: Activity Type Activity Date Activity User E-sign Co-sign Detail Recorded Client Recorded Date Recorded By Document 11/02/23 10:44 RB Desktop 11/02/23 10:48 RB Document 11/10/23 12:20 RB Desktop 11/10/23 12:26 RB Document 11/17/23 12:00 RB Desktop 11/17/23 12:09 RB 11/02/23 11/10/23 11/17/23 10:44 12:20 12:00 Wound Center Nurse 1 #18 R Medial ankle -Combined with other wound No No No -Current Size (cm) - Length 0.1 0.1 0.1 -Current Size (cm) - Width 0.1 0.1 0.1 -Current Size (cm) - Depth 0.1 0.1 0.1 -Total Square Cm 0.01 0.01 0.01 -Tunneling No No No -Undermining/Tunneling No No No -Circular Undermining No No No -Exudate Amt Large Medium -Exudate Type Serosanguineous Serosanguineous Serosanguineous -Wound Margin Distinct, Distinct, Distinct, Outline Outline Outline Attached Attached Attached -Granulation Amt Medium (34-66%) Medium (34-66%) Medium (34-66%) -Granulation Quality [place] -Slough/Fibrin Yes Yes Yes -Necrosis Amt Medium (34-66%) Medium (34-66%) Medium (34-66%) -Necrotic Tissue Type Adherent Slough Adherent Slough Adherent Slough -Structure Exposed N/A N/A N/A -Texture ([place]-wound Skin Appearance) Assessed Assessed Assessed -Moisture ([place]-wound Skin Appearance) Assessed Assessed Assessed -Color ([place]-wound Skin Appearance) Hemosiderin Hemosiderin Assessed Staining Staining -Temperature ([place]-wound Skin No Abnormality No Abnormality No Abnormality Appearance) (Pt Warm) (Pt Warm) (Pt Warm) -Tenderness on Palpation ([place]-wound No No No Skin Appearance) -Ulcer Cleansing Wound Cleanser Wound Cleanser Wound Cleanser -Foul Odor after Cleansing No No No -Anesthetic Used 5% Lidocaine 4% Lidocaine Gel Solution #16 Right Medial Superior cluster -Combined with other wound No No -Current Size (cm) - Length 0.1 0.1 0.1 -Current Size (cm) - Width 0.1 0.1 0.1 -Current Size (cm) - Depth 0.1 0.1 0.1 -Total Square Cm 0.01 0.01 0.01 -Tunneling No No No -Undermining/Tunneling No No No -Circular Undermining No No No -Exudate Amt Large Large Medium -Exudate Type Serosanguineous Serosanguineous Serosanguineous -Wound Margin Distinct, Distinct, Distinct, Outline Outline Outline Attached Attached Attached -Granulation Amt Medium (34-66%) Medium (34-66%) Medium (34-66%) -Granulation Quality [place] -Slough/Fibrin Yes Yes Yes -Necrosis Amt Medium (34-66%) Medium (34-66%) Medium (34-66%) -Necrotic Tissue Type Adherent Slough Adherent Slough Adherent Slough -Structure Exposed N/A N/A N/A -Texture ([place]-wound Skin Appearance) Assessed Assessed Assessed -Moisture ([place]-wound Skin Appearance) Assessed Assessed Assessed -Color ([place]-wound Skin Appearance) Hemosiderin Hemosiderin Assessed Staining Staining -Temperature ([place]-wound Skin No Abnormality No Abnormality No Abnormality Appearance) (Pt Warm) (Pt Warm) (Pt Warm) -Tenderness on Palpation ([place]-wound No No No Skin Appearance) -Ulcer Cleansing Wound Cleanser Wound Cleanser Wound Cleanser -Foul Odor after Cleansing No No No -Anesthetic Used 5% Lidocaine 4% Lidocaine Gel Solution #14- R LAT ANKLE -Combined with other wound No No -Current Size (cm) - Length 0.1 0.1 0.1 -Current Size (cm) - Width 0.1 0.1 0.1 -Current Size (cm) - Depth 0.1 0.1 0.1 -Total Square Cm 0.01 0.01 0.01 -Tunneling No No No -Undermining/Tunneling No No No -Circular Undermining No No No -Exudate Amt Large Large Medium -Exudate Type Serosanguineous Serosanguineous Serosanguineous -Wound Margin Distinct, Distinct, Distinct, Outline Outline Outline Attached Attached Attached -Granulation Amt Medium (34-66%) Medium (34-66%) Medium (34-66%) -Granulation Quality [place] -Slough/Fibrin Yes Yes Yes -Necrosis Amt Medium (34-66%) Medium (34-66%) Medium (34-66%) -Necrotic Tissue Type Adherent Slough Adherent Slough Adherent Slough -Structure Exposed N/A N/A N/A -Texture ([place]-wound Skin Appearance) Assessed Assessed Assessed -Moisture ([place]-wound Skin Appearance) Assessed Assessed Assessed -Color ([place]-wound Skin Appearance) Hemosiderin Hemosiderin Assessed Staining Staining -Temperature ([place]-wound Skin No Abnormality No Abnormality No Abnormality Appearance) (Pt Warm) (Pt Warm) (Pt Warm) -Tenderness on Palpation ([place]-wound No No No Skin Appearance) -Ulcer Cleansing Wound Cleanser Wound Cleanser Wound Cleanser -Foul Odor after Cleansing No No No -Anesthetic Used 5% Lidocaine 4% Lidocaine Gel Solution Lower Limb Edema Present Yes Yes Right Calf (cm) 39.5 39 Right Ankle (cm) 31.8 30 Left Calf (cm) 44 41 Left Ankle (cm) 28 34.5 WC - Nurse 2 - General Ulcer CM Notes Start: 11/02/23 10:44 Freq: Status: Active Protocol: Activity Type Activity Date Activity User E-sign Co-sign Detail Recorded Client Recorded Date Recorded By Document 11/02/23 10:58 GM Desktop 11/02/23 11:08 GM Document 11/10/23 12:46 GM Desktop 11/10/23 12:52 GM Document 11/17/23 11:18 GM Desktop 11/17/23 11:23 GM 11/02/23 11/10/23 11/17/23 10:58 12:46 11:18 Wound Center Nurse 2 #18 R Medial ankle -Time 10:59 12:46 -Correct Patient Yes Yes Yes -Correct Side, Site, Position Yes Yes Yes -Correct Procedure Yes Yes -Procedure Performed Yes Yes -Type of Procedure Debridement Debridement -Clinical Debridement Subcutaneous Epidermis / Dermis -Tissue Removed Subcutaneous Epidermis, Dermis -Post Debridement (cm) - Length 2.5 1.5 -Post Debridement (cm) - Width 4 1.5 -Post Debridement (cm) - Depth 0.1 0 -Total Square (Post) (cm) 10.0 2.25 -Area of Debridement (cm) - Length 2.5 1.5 -Area of Debridement (cm) - Width 4 1.5 -Total Square (Area) (cm) 10.0 2.25 -Tunneling No No No -Undermining/Tunneling No No No -Circular Undermining No No -Wound/Ulcer Outcome Not Healed Not Healed -Ulcer Cleansing Rinsed/ Rinsed/ Irrigated with Irrigated with Saline Saline -Foul Odor after Cleansing No No -Bioengineered Tissue No -Bleeding Controlled with Pressure Pressure -Treatment Response Procedure Procedure Tolerated Well Tolerated Well -Debridement - Open, 1st 20sq cm No -Debridement - Subq, 1st 20sq cm No #16 Right Medial Superior cluster -Time 10:59 12:50 11:21 -Correct Patient Yes Yes Yes -Correct Side, Site, Position Yes Yes Yes -Correct Procedure Yes Yes Yes -Procedure Performed Yes Yes Yes -Type of Procedure Debridement Debridement Debridement -Clinical Debridement Subcutaneous Subcutaneous Epidermis / Dermis -Tissue Removed Subcutaneous Subcutaneous Epidermis, Dermis -Post Debridement (cm) - Length 2.5 1.6 2 -Post Debridement (cm) - Width 2 2.0 2 -Post Debridement (cm) - Depth 0.2 0.1 0.1 -Total Square (Post) (cm) 5.0 3.20 4 -Area of Debridement (cm) - Length 2.5 1.6 2 -Area of Debridement (cm) - Width 2 2.0 2 -Total Square (Area) (cm) 5.0 3.20 4 -Tunneling No No No -Undermining/Tunneling No No No -Circular Undermining No No No -Wound/Ulcer Outcome Not Healed Not Healed Not Healed -Ulcer Cleansing Rinsed/ Rinsed/ Irrigated with Irrigated with Saline Saline -Foul Odor after Cleansing No No No -Bioengineered Tissue No -Bleeding Controlled with Pressure Pressure Pressure -Treatment Response Procedure Procedure Procedure Tolerated Well Tolerated Well Tolerated Well -Debridement - Open, 1st 20sq cm No -Debridement - Subq, 1st 20sq cm No Yes #14- R LAT ANKLE -Time 11:00 11:22 -Correct Patient Yes Yes -Correct Side, Site, Position Yes Yes -Correct Procedure Yes Yes -Procedure Performed Yes Yes -Type of Procedure Debridement Debridement -Clinical Debridement Subcutaneous Epidermis / Dermis -Tissue Removed Subcutaneous Epidermis, Dermis -Post Debridement (cm) - Length 2 1 -Post Debridement (cm) - Width 11.5 3 -Post Debridement (cm) - Depth 0.1 0.1 -Total Square (Post) (cm) 23.0 3 -Area of Debridement (cm) - Length 2 1 -Area of Debridement (cm) - Width 11.5 3 -Total Square (Area) (cm) 23.0 3 -Tunneling No No -Undermining/Tunneling No No -Circular Undermining No No -Wound/Ulcer Outcome Not Healed Not Healed -Ulcer Cleansing Wound Cleanser Rinsed/ Irrigated with Saline -Foul Odor after Cleansing No No -Bioengineered Tissue No -Bleeding Controlled with Pressure Pressure -Treatment Response Procedure Procedure Tolerated Well Tolerated Well -Debridement - Open, 1st 20sq cm Yes -Debridement - Subq, 1st 20sq cm Yes -Debridement, SubQ, ea addt'l 20sq cm 1 or part thereof Pain Scale: 0-10 Numeric Is Patient Pain Free? Yes No Yes bilat LE -Intensity 10 -Duration (hours) Chronic -Pain Behavior No Change in Behavior -Alleviating Factors/Interventions Inactivity/ Resting,Will continue to monitor - Nurse 3 - General Ulcer D/C NN Start: 11/02/23 10:44 Freq: Status: Active Protocol: Activity Type Activity Date Activity User E-sign Co-sign Detail Recorded Client Recorded Date Recorded By Document 11/02/23 11:55 RB [id number] 11/02/23 11:58 RB Document 11/10/23 13:13 GM Desktop 11/10/23 13:14 GM Document 11/17/23 12:00 RB Desktop 11/17/23 12:09 RB 11/02/23 11/10/23 11/17/23 11:55 13:13 12:00 Wound Care Center Nurse 3 #18 R Medial ankle -Ulcer Cleansing Wound Cleanser Wound Cleanser -Primary Dressing Applied Aquacel Extra, Fibracol Plus 4x4 -Other Dressing FIBRACOL/ abd AQUACEL EXTRA -Primary Dressing Covered/Secured with Dry Gauze & Roll Gauze, Secured with Tape -Other Covering ABD -Aquacel Extra 1 -Fibracol Plus 4x4 1 #16 Right Medial Superior cluster -Ulcer Cleansing Wound Cleanser Not Cleansed Wound Cleanser -Foul Odor after Cleansing No -Primary Dressing Applied Aquacel Extra, Aquacel Extra, Fibracol Plus Fibracol Plus 4x4 4x4 -Other Dressing ABD fibracol/ aquacel extra/ abd -Primary Dressing Covered/Secured with Dry Gauze & Dry Gauze, Roll Gauze, Secured with Secured with Tape Tape -Aquacel Extra 1 1 -Fibracol Plus 4x4 1 1 #14- R LAT ANKLE -Ulcer Cleansing Wound Cleanser Wound Cleanser -Other Dressing FIBRACOL/ fibracol/ AQUACEL EXTRA aquacel extra/ abd -Primary Dressing Covered/Secured with Dry Gauze & Roll Gauze, Secured with Tape BILAT LE -Multi-Layered Wrap Application Multi-Layer Unna Boot - Unna Boot - Comp - Bilat ($ Bilateral ($) Bilateral ($) ) Treatment Response Procedure Procedure Tolerated Well Tolerated Well Pain Scale: 0-10 Numeric Is Patient Pain Free? Yes Yes Yes Teaching: Wound Center Control Swelling with Leg Elevation -Person Taught Patient -Teaching Method Discussion -Response to teaching Reinforcement needed Dressing Your Wound -Person Taught Patient -Teaching Method Discussion, Demonstration -Response to teaching Reinforcement needed WC - Visit Discharge Discharge Condition Stable Stable Stable Ambulatory Status Walker, Wheelchair Walker, Wheelchair Wheelchair Transportation Private [employer] wheeled to [facility] [employer] for test Medication Reconcilliation completed & No Yes No provided to patient/care provider Clinical Summary of Care Provided Yes Yes Yes Notes: PT assited to restroom Additional Wound Wound debrided: Right lateral ankle/foot Laterality: Right Type of Debridement: Selective debridement Anesthesia Used: Cetacaine Depth: Down to and including healthy tissue and in the subcutaneous layer Percentage of wound debrided: 100 Instrument Used: - (gauze) Tissue Removed: Slough and devitalized tissue Severity: Fat Layer Exposed Amount of bleeding with debridement: None Bleeding Controlled with: Pressure Patient tolerated procedure: Patient tolerated procedure well Additional Wound Wound debrided: Right medial foot/ankle Type of Debridement: Selective debridement Anesthesia Used: Cetacaine Depth: Down to and including healthy tissue and in the subcutaneous layer Percentage of wound debrided: 100 Instrument Used: - (gauze) Tissue Removed: Slough and devitalized tissue Severity: Fat Layer Exposed Amount of bleeding with debridement: Mild Bleeding Controlled with: Pressure Patient tolerated procedure: Patient tolerated procedure well Assessment/Plan Assessment/Plan (1) Ulcer of right lower extremity with fat layer exposed: CODE(S): L97.912 - Non-pressure chronic ulcer of unspecified part of right lower leg with fat layer exposed (2) Ulcer of left lower extremity with fat layer exposed: CODE(S): L97.922 - Non-pressure chronic ulcer of unspecified part of left lower leg with fat layer exposed (3) Venous insufficiency: CODE(S): I87.2 - Venous insufficiency (chronic) (peripheral) (4) Lymphedema: CODE(S): I89.0 - Lymphedema, not elsewhere classified (5) Pain in left lower leg: CODE(S): M79.662 - Pain in left lower leg PLAN: Plan Debridement performed today in clinic as annotated above. At home wound-care instructions: Will reapply UNNA boot compression wraps and dress open areas with Fibracol and Aquacel Extra. Keep dressing clean and dry. Off-loading: The patient was instructed to avoid pressure and friction on the affected areas. Reposition every 2 hours at minimum. Avoid prolonged standing and/or dangling of legs. When seated, feet should be elevated at chest level. Frequent ambulation is encouraged. Diet: Patient encouraged to increase protein intake while taking caution to avoid high carbohydrate and/or sugar intake. Labs/cultures/imaging: Duplex negative for DVT last week. Follow-up: Return in 1 week for wound care follow up. Return sooner or report to the emergency room should symptoms worsen, or new symptoms arise. Note: [employer] speech recognition chro software was used to create portions of this document. Sound-alike and misspelled words, as well as other chro errors may be contained in the documentation. This note was generated with [employer] dictation software. It may contain incorrect words, spelling, and punctuation that were not noted in checking the note before signing.
[2023-11-24 10:11] VITALS: BP 117/68; PULSE 73; RESP 18; TEMP 36.5
--- NOTE | 2023-11-24 13:53 | PCM.WC.PN ---
History of Present Illness Date of Service: 11/24/23 Chief Complaint: Right lower extremity ulcers History of Wound: Mr. Boles is an 83-year-old currently residing at [facility] who presents due to nonhealing bilateral lower extremity ulceration. He was seen here a few months ago and discharged after he achieved healing. Recommendation was for continued use of his lymphedema pump however he states that this has not been used consistently. Current ulceration has been present for weeks. No chills, fever or otherwise feeling of unwell. Progress of Wound: Denilson presents today as a courtesy visit for Dr. Rashid. Ulcers of right lower leg were improved without signs of infection. He tolerated treatment with UNNA boots. His edema is somewhat worse in both legs today. He reports that he is using compression pumps but sometimes doesn't use them very long due to needing to go to the bathroom. Objective Data Objective Data Vital Signs: Vital Signs Temp Pulse Resp BP Pulse Ox O2 Del Method 97.7 F L 73 18 117/68 97 Room Air 11/24/23 10:11 11/24/23 10:11 11/24/23 10:11 11/24/23 10:11 10/27/23 00:11 11/24/23 10:11 Oxygen Delivery Method Room Air Physical Exam Const alert, oriented x3 and no apparent distress General Appearance: cooperative, comfortable and well kempt HEENT normocephalic and head/scalp atraumatic Eyes EOMs intact bilaterally General Eye: normal appearance of both eyes Neck full ROM General: normal visual inspection Resp normal respiratory effort Effort and Inspection: able to speak in complete sentences Extremity General Extremity: edema Skin Wounds: wounds noted Neuro oriented x3, moves all extremities and no focal motor deficits Psych mental status grossly normal, thought process normal, cooperative and affect normal Debridement Note Debridement Note Wound debrided: Right sinclair ( Superior ) Laterality: Right Type of Debridement: Excisional debridement Anesthesia Used: 5% Lidocaine Gel Depth: Down to and including healthy tissue and in the subcutaneous layer Percentage of wound debrided: 100 Instrument Used: 3mm curette and - Tissue Removed: Slough and devitalized tissue Severity: Fat Layer Exposed Amount of bleeding with debridement: Mild Bleeding Controlled with: Compression and gauze Patient tolerated procedure: Patient tolerated procedure well Post-Debridement Measurements and Additional Note: Post-Debridement Measurements/Treatment WC - Nurse 1 - General Ulcer Assessment Start: 11/02/23 10:44 Freq: Status: Active Protocol: WC.LOWEXT Activity Type Activity Date Activity User E-sign Co-sign Detail Recorded Client Recorded Date Recorded By Document 11/02/23 10:44 RB Desktop 11/02/23 10:48 RB Document 11/10/23 12:20 RB Desktop 11/10/23 12:26 RB Document 11/17/23 11:08 MT [id number] 11/17/23 13:02 MT Document 11/17/23 12:09 RB Desktop 11/17/23 12:10 RB Document 11/24/23 10:11 KW Desktop 11/24/23 10:26 KW 11/02/23 11/10/23 11/17/23 10:44 12:20 11:08 - Today's Visit Information Type of service Follow-up Visit Follow-up Visit Follow-up Visit (Physician/INDUCTION HEAT TREATER (Physician/INDUCTION HEAT TREATER (Physician/INDUCTION HEAT TREATER ) ) ) Arrival Mode Walker, Wheelchair Wheelchair Wheelchair Transfer Assistance Manual Manual None Patient Identification Verified (Name & Yes Yes Yes ) Patient Requires Transmission-Based No No No Precautions Vital Signs Temperature (97.8 F-99.1 F) 98.2 F 97.3 F L 97 F L Temperature Source Temporal Temporal Temporal Pulse Rate (60-100) 62 60 67 Pulse Location Monitor Monitor Monitor Respiratory Rate (12-18) 18 18 18 Respiratory rate source Observation Observation Observation Oxygen Delivery Method Blood Pressure (90/60-120/80) 139/71 H 117/55 L 128/78 H Blood Pressure Mean (mm Hg) 93 75 94 Source Monitor Monitor Monitor Position Sitting Semi-Fowlers Semi-Fowlers Blood Pressure Location Left Arm Left Arm Left Arm History Since Last Visit- (Skip if this is Patient's initial visit) Have you changed medications since your No No No last visit? Any new allergies or adverse reactions No No No Had a fall/change in ADL's that may No No No increase risk of falls Signs or symptoms of abuse and/or No No No neglect since last visit Have you been in the hospital since your No No No last visit? Has dressing in place as prescribed Yes Yes Yes Has compression in place as prescribed Yes No Yes Has offloadiing in place as prescribed No No No Experienced any changes in pain level or No No No management Left Footwear Right Footwear Pain Scale: 0-10 Numeric Is Patient Pain Free? No No Yes bilat LE -Description Aching Aching -Intensity 5 10 -Duration (hours) Acute -Pain Behavior Withdrawal from Withdrawal from Touch Touch -Pain Aggravating Factors Changing Exercise/ Position, Activity, Exercise/ Standing Activity, Walking -Alleviating Factors/Interventions Medication Medication -Effectiveness of Alleviating Factor/ Minimally Moderately Intervention effective effective 11/17/23 11/24/23 12:09 10:11 WC - Today's Visit Information Type of service Follow-up Visit Follow-up Visit (Physician/INDUCTION HEAT TREATER (Physician/INDUCTION HEAT TREATER ) ) Arrival Mode Wheelchair Wheelchair Transfer Assistance Manual Patient Identification Verified (Name & Yes Yes ) Patient Requires Transmission-Based No Precautions Vital Signs Temperature (97.8 F-99.1 F) 97 F L 97.7 F L Temperature Source Oral Temporal Pulse Rate (60-100) 67 73 Pulse Location Monitor Respiratory Rate (12-18) 18 18 Respiratory rate source Observation Observation Oxygen Delivery Method Room Air Blood Pressure (90/60-120/80) 128/72 H 117/68 Blood Pressure Mean (mm Hg) 90 84 Source Monitor Monitor Position Semi-Fowlers Semi-Fowlers Blood Pressure Location Left Arm Left Arm History Since Last Visit- (Skip if this is Patient's initial visit) Have you changed medications since your No No last visit? Any new allergies or adverse reactions No No Had a fall/change in ADL's that may No No increase risk of falls Signs or symptoms of abuse and/or No No neglect since last visit Have you been in the hospital since your No No last visit? Has dressing in place as prescribed Yes Yes Has compression in place as prescribed Yes Yes Has offloadiing in place as prescribed No No Experienced any changes in pain level or No No management Left Footwear Regular Shoe Right Footwear Regular Shoe Pain Scale: 0-10 Numeric Is Patient Pain Free? Yes Yes bilat LE -Description -Intensity -Duration (hours) -Pain Behavior -Pain Aggravating Factors -Alleviating Factors/Interventions -Effectiveness of Alleviating Factor/ Intervention JANAY - Nurse 1 - General Ulcer Measurement Start: 11/02/23 10:44 Freq: Status: Active Protocol: Activity Type Activity Date Activity User E-sign Co-sign Detail Recorded Client Recorded Date Recorded By Document 11/02/23 10:44 RB Desktop 11/02/23 10:48 RB Document 11/10/23 12:20 RB Desktop 11/10/23 12:26 RB Document 11/17/23 11:08 OH [id number] 11/17/23 13:02 OH Document 11/17/23 12:00 RB Desktop 11/17/23 12:09 RB Document 11/24/23 10:11 KW Desktop 11/24/23 10:26 KW 11/02/23 11/10/23 11/17/23 10:44 12:20 11:08 Wound Center Nurse 1 #18 R Medial ankle -Combined with other wound No No No -Current Size (cm) - Length 0.1 0.1 -Current Size (cm) - Width 0.1 0.1 -Current Size (cm) - Depth 0.1 0.1 -Total Square Cm 0.01 0.01 -Tunneling No No -Undermining/Tunneling No No -Circular Undermining No No -Exudate Amt Large -Exudate Type Serosanguineous Serosanguineous -Wound Margin Distinct, Distinct, Outline Outline Attached Attached -Granulation Amt Medium (34-66%) Medium (34-66%) -Granulation Quality [place]out[place] Stoutland -Slough/Fibrin Yes Yes -Necrosis Amt Medium (34-66%) Medium (34-66%) -Necrotic Tissue Type Adherent Slough Adherent Slough -Structure Exposed N/A N/A -Texture ([place]-wound Skin Appearance) Assessed Assessed -Moisture ([place]-wound Skin Appearance) Assessed Assessed -Color ([place]-wound Skin Appearance) Hemosiderin Hemosiderin Staining Staining -Temperature ([place]-wound Skin No Abnormality No Abnormality Appearance) (Pt Warm) (Pt Warm) -Tenderness on Palpation ([place]-wound No No Skin Appearance) -Ulcer Cleansing Wound Cleanser Wound Cleanser -Foul Odor after Cleansing No No -Anesthetic Used 5% Lidocaine 4% Lidocaine Gel Solution #16 Right Medial Superior cluster -Combined with other wound No -Current Size (cm) - Length 0.1 0.1 -Current Size (cm) - Width 0.1 0.1 -Current Size (cm) - Depth 0.1 0.1 -Total Square Cm 0.01 0.01 -Tunneling No No -Undermining/Tunneling No No -Circular Undermining No No -Exudate Amt Large Large -Exudate Type Serosanguineous Serosanguineous -Wound Margin Distinct, Distinct, Outline Outline Attached Attached -Granulation Amt Medium (34-66%) Medium (34-66%) -Granulation Quality Stoutland Stoutland -Slough/Fibrin Yes Yes -Necrosis Amt Medium (34-66%) Medium (34-66%) -Necrotic Tissue Type Adherent Slough Adherent Slough -Structure Exposed N/A N/A -Texture ([place]-wound Skin Appearance) Assessed Assessed -Moisture ([place]-wound Skin Appearance) Assessed Assessed -Color ([place]-wound Skin Appearance) Hemosiderin Hemosiderin Staining Staining -Temperature ([place]-wound Skin No Abnormality No Abnormality Appearance) (Pt Warm) (Pt Warm) -Tenderness on Palpation ([place]-wound No No Skin Appearance) -Ulcer Cleansing Wound Cleanser Wound Cleanser -Foul Odor after Cleansing No No -Anesthetic Used 5% Lidocaine 4% Lidocaine Gel Solution #14- R LAT ANKLE -Combined with other wound No No -Current Size (cm) - Length 0.1 0.1 -Current Size (cm) - Width 0.1 0.1 -Current Size (cm) - Depth 0.1 0.1 -Total Square Cm 0.01 0.01 -Tunneling No No -Undermining/Tunneling No No -Circular Undermining No No -Exudate Amt Large Large -Exudate Type Serosanguineous Serosanguineous -Wound Margin Distinct, Distinct, Outline Outline Attached Attached -Granulation Amt Medium (34-66%) Medium (34-66%) -Granulation Quality Stout[place] Stoutland -Slough/Fibrin Yes Yes -Necrosis Amt Medium (34-66%) Medium (34-66%) -Necrotic Tissue Type Adherent Slough Adherent Slough -Structure Exposed N/A N/A -Texture ([place]-wound Skin Appearance) Assessed Assessed -Moisture ([place]-wound Skin Appearance) Assessed Assessed -Color ([place]-wound Skin Appearance) Hemosiderin Hemosiderin Staining Staining -Temperature ([place]-wound Skin No Abnormality No Abnormality Appearance) (Pt Warm) (Pt Warm) -Tenderness on Palpation ([place]-wound No No Skin Appearance) -Ulcer Cleansing Wound Cleanser Wound Cleanser -Foul Odor after Cleansing No No -Anesthetic Used 5% Lidocaine 4% Lidocaine Gel Solution #3 R Lat foot -Current Size (cm) - Length -Current Size (cm) - Width -Current Size (cm) - Depth -Total Square Cm -Epithelialization -Exudate Amt -Exudate Type -Wound Margin -Granulation Amt -Granulation Quality -Necrosis Amt -Necrotic Tissue Type -Texture ([place]-wound Skin Appearance) -Moisture ([place]-wound Skin Appearance) -Color ([place]-wound Skin Appearance) -Temperature ([place]-wound Skin Appearance) -Ulcer Cleansing -Anesthetic Used Lower Limb Edema Present Yes Yes Yes Right Calf (cm) 39.5 39 39 Right Ankle (cm) 31.8 30 30 Left Calf (cm) 44 41 41 Left Ankle (cm) 28 34.5 34.5 11/17/23 11/24/23 12:00 10:11 Wound Center Nurse 1 #18 R Medial ankle -Combined with other wound No -Current Size (cm) - Length 0.1 1.5 -Current Size (cm) - Width 0.1 1.7 -Current Size (cm) - Depth 0.1 0.3 -Total Square Cm 0.01 2.55 -Tunneling No -Undermining/Tunneling No -Circular Undermining No -Exudate Amt Medium -Exudate Type Serosanguineous -Wound Margin Distinct, Outline Attached -Granulation Amt Medium (34-66%) -Granulation Quality [place] -Slough/Fibrin Yes -Necrosis Amt Medium (34-66%) -Necrotic Tissue Type Adherent Slough -Structure Exposed N/A -Texture ([place]-wound Skin Appearance) Assessed Assessed -Moisture ([place]-wound Skin Appearance) Assessed Assessed -Color ([place]-wound Skin Appearance) Assessed Assessed -Temperature ([place]-wound Skin No Abnormality Appearance) (Pt Warm) -Tenderness on Palpation ([place]-wound No Skin Appearance) -Ulcer Cleansing Wound Cleanser Soap and Water -Foul Odor after Cleansing No -Anesthetic Used 5% Lidocaine Gel #16 Right Medial Superior cluster -Combined with other wound No -Current Size (cm) - Length 0.1 0.1 -Current Size (cm) - Width 0.1 0.1 -Current Size (cm) - Depth 0.1 0.1 -Total Square Cm 0.01 0.01 -Tunneling No -Undermining/Tunneling No -Circular Undermining No -Exudate Amt Medium -Exudate Type Serosanguineous -Wound Margin Distinct, Outline Attached -Granulation Amt Medium (34-66%) -Granulation Quality [place] -Slough/Fibrin Yes -Necrosis Amt Medium (34-66%) -Necrotic Tissue Type Adherent Slough -Structure Exposed N/A -Texture ([place]-wound Skin Appearance) Assessed Assessed -Moisture ([place]-wound Skin Appearance) Assessed Assessed -Color ([place]-wound Skin Appearance) Assessed Assessed -Temperature ([place]-wound Skin No Abnormality Appearance) (Pt Warm) -Tenderness on Palpation ([place]-wound No Skin Appearance) -Ulcer Cleansing Wound Cleanser Soap and Water -Foul Odor after Cleansing No -Anesthetic Used #14- R LAT ANKLE -Combined with other wound -Current Size (cm) - Length 0.1 1.7 -Current Size (cm) - Width 0.1 1.6 -Current Size (cm) - Depth 0.1 0.1 -Total Square Cm 0.01 2.72 -Tunneling No -Undermining/Tunneling No -Circular Undermining No -Exudate Amt Medium -Exudate Type Serosanguineous -Wound Margin Distinct, Distinct, Outline Outline Attached Attached -Granulation Amt Medium (34-66%) Small (1-33%) -Granulation Quality [place]outland -Slough/Fibrin Yes -Necrosis Amt Medium (34-66%) Large (67-100%) -Necrotic Tissue Type Adherent Slough Adherent Slough -Structure Exposed N/A -Texture ([place]-wound Skin Appearance) Assessed Assessed -Moisture ([place]-wound Skin Appearance) Assessed Assessed, Maceration,Dry/ Scaly -Color ([place]-wound Skin Appearance) Assessed Assessed, Erythema -Temperature ([place]-wound Skin No Abnormality No Abnormality Appearance) (Pt Warm) (Pt Warm) -Tenderness on Palpation ([place]-wound No No Skin Appearance) -Ulcer Cleansing Wound Cleanser Soap and Water -Foul Odor after Cleansing No No -Anesthetic Used 5% Lidocaine Gel #3 R Lat foot -Current Size (cm) - Length 0.8 -Current Size (cm) - Width 1.5 -Current Size (cm) - Depth 0.2 -Total Square Cm 1.20 -Epithelialization Large 67-100% -Exudate Amt Small -Exudate Type Serosanguineous -Wound Margin Distinct, Outline Attached -Granulation Amt Medium (34-66%) -Granulation Quality Red -Necrosis Amt Small (1-33%) -Necrotic Tissue Type Adherent Slough -Texture ([place]-wound Skin Appearance) Assessed,Callus -Moisture ([place]-wound Skin Appearance) Assessed -Color ([place]-wound Skin Appearance) Assessed -Temperature ([place]-wound Skin No Abnormality Appearance) (Pt Warm) -Ulcer Cleansing Soap and Water -Anesthetic Used 5% Lidocaine Gel Lower Limb Edema Present Right Calf (cm) 52 Right Ankle (cm) 32 Left Calf (cm) 44.5 Left Ankle (cm) 34.5 WC - Nurse 2 - General Ulcer CM Notes Start: 11/02/23 10:44 Freq: Status: Active Protocol: Activity Type Activity Date Activity User E-sign Co-sign Detail Recorded Client Recorded Date Recorded By Document 11/02/23 10:58 GM Desktop 11/02/23 11:08 GM Document 11/10/23 12:46 GM Desktop 11/10/23 12:52 GM Document 11/17/23 11:18 GM Desktop 11/17/23 11:23 GM Document 11/24/23 10:34 GM Desktop 11/24/23 10:49 GM 11/02/23 11/10/23 11/17/23 10:58 12:46 11:18 Wound Center Nurse 2 #18 R Medial ankle -Time 10:59 12:46 -Correct Patient Yes Yes Yes -Correct Side, Site, Position Yes Yes Yes -Correct Procedure Yes Yes -Procedure Performed Yes Yes -Type of Procedure Debridement Debridement -Clinical Debridement Subcutaneous Epidermis / Dermis -Tissue Removed Subcutaneous Epidermis, Dermis -Post Debridement (cm) - Length 2.5 1.5 -Post Debridement (cm) - Width 4 1.5 -Post Debridement (cm) - Depth 0.1 0 -Total Square (Post) (cm) 10.0 2.25 -Area of Debridement (cm) - Length 2.5 1.5 -Area of Debridement (cm) - Width 4 1.5 -Total Square (Area) (cm) 10.0 2.25 -Tunneling No No No -Undermining/Tunneling No No No -Circular Undermining No No -Wound/Ulcer Outcome Not Healed Not Healed -Ulcer Cleansing Rinsed/ Rinsed/ Irrigated with Irrigated with Saline Saline -Foul Odor after Cleansing No No -Bioengineered Tissue No -Bleeding Controlled with Pressure Pressure -Treatment Response Procedure Procedure Tolerated Well Tolerated Well -Debridement - Open, 1st 20sq cm No -Debridement - Subq, 1st 20sq cm No #16 Right Medial Superior cluster -Time 10:59 12:50 11:21 -Correct Patient Yes Yes Yes -Correct Side, Site, Position Yes Yes Yes -Correct Procedure Yes Yes Yes -Procedure Performed Yes Yes Yes -Type of Procedure Debridement Debridement Debridement -Clinical Debridement Subcutaneous Subcutaneous Epidermis / Dermis -Tissue Removed Subcutaneous Subcutaneous Epidermis, Dermis -Post Debridement (cm) - Length 2.5 1.6 2 -Post Debridement (cm) - Width 2 2.0 2 -Post Debridement (cm) - Depth 0.2 0.1 0.1 -Total Square (Post) (cm) 5.0 3.20 4 -Area of Debridement (cm) - Length 2.5 1.6 2 -Area of Debridement (cm) - Width 2 2.0 2 -Total Square (Area) (cm) 5.0 3.20 4 -Tunneling No No No -Undermining/Tunneling No No No -Circular Undermining No No No -Wound/Ulcer Outcome Not Healed Not Healed Not Healed -Ulcer Cleansing Rinsed/ Rinsed/ Irrigated with Irrigated with Saline Saline -Foul Odor after Cleansing No No No -Bioengineered Tissue No -Bleeding Controlled with Pressure Pressure Pressure -Treatment Response Procedure Procedure Procedure Tolerated Well Tolerated Well Tolerated Well -Debridement - Open, 1st 20sq cm No -Debridement - Subq, 1st 20sq cm No Yes #14- R LAT ANKLE -Time 11:00 11:22 -Correct Patient Yes Yes -Correct Side, Site, Position Yes Yes -Correct Procedure Yes Yes -Procedure Performed Yes Yes -Type of Procedure Debridement Debridement -Clinical Debridement Subcutaneous Epidermis / Dermis -Tissue Removed Subcutaneous Epidermis, Dermis -Post Debridement (cm) - Length 2 1 -Post Debridement (cm) - Width 11.5 3 -Post Debridement (cm) - Depth 0.1 0.1 -Total Square (Post) (cm) 23.0 3 -Area of Debridement (cm) - Length 2 1 -Area of Debridement (cm) - Width 11.5 3 -Total Square (Area) (cm) 23.0 3 -Tunneling No No -Undermining/Tunneling No No -Circular Undermining No No -Wound/Ulcer Outcome Not Healed Not Healed -Ulcer Cleansing Wound Cleanser Rinsed/ Irrigated with Saline -Foul Odor after Cleansing No No -Bioengineered Tissue No -Bleeding Controlled with Pressure Pressure -Treatment Response Procedure Procedure Tolerated Well Tolerated Well -Debridement - Open, 1st 20sq cm Yes -Debridement - Subq, 1st 20sq cm Yes -Debridement, SubQ, ea addt'l 20sq cm 1 or part thereof #3 R Lat foot -Time -Correct Patient -Correct Side, Site, Position -Correct Procedure -Procedure Performed -Type of Procedure -Clinical Debridement -Tissue Removed -Post Debridement (cm) - Length -Post Debridement (cm) - Width -Post Debridement (cm) - Depth -Total Square (Post) (cm) -Area of Debridement (cm) - Length -Area of Debridement (cm) - Width -Total Square (Area) (cm) -Circular Undermining -Wound/Ulcer Outcome -Ulcer Cleansing -Foul Odor after Cleansing -Bioengineered Tissue -Bleeding Controlled with -Treatment Response -Debridement - Subq, 1st 20sq cm Pain Scale: 0-10 Numeric Is Patient Pain Free? Yes No Yes bilat LE -Intensity 10 -Duration (hours) Chronic -Pain Behavior No Change in Behavior -Alleviating Factors/Interventions Inactivity/ Resting,Will continue to monitor 11/24/23 10:34 Wound Center Nurse 2 #18 R Medial ankle -Time 10:35 -Correct Patient Yes -Correct Side, Site, Position Yes -Correct Procedure Yes -Procedure Performed Yes -Type of Procedure Debridement -Clinical Debridement Subcutaneous -Tissue Removed Subcutaneous -Post Debridement (cm) - Length 2.5 -Post Debridement (cm) - Width 3.0 -Post Debridement (cm) - Depth 0.1 -Total Square (Post) (cm) 7.50 -Area of Debridement (cm) - Length 2.5 -Area of Debridement (cm) - Width 3.0 -Total Square (Area) (cm) 7.50 -Tunneling No -Undermining/Tunneling No -Circular Undermining No -Wound/Ulcer Outcome Not Healed -Ulcer Cleansing Rinsed/ Irrigated with Saline -Foul Odor after Cleansing No -Bioengineered Tissue -Bleeding Controlled with Pressure -Treatment Response Procedure Tolerated Well -Debridement - Open, 1st 20sq cm -Debridement - Subq, 1st 20sq cm No #16 Right Medial Superior cluster -Time 10:36 -Correct Patient Yes -Correct Side, Site, Position Yes -Correct Procedure Yes -Procedure Performed Yes -Type of Procedure Debridement -Clinical Debridement Subcutaneous -Tissue Removed Subcutaneous -Post Debridement (cm) - Length 1.7 -Post Debridement (cm) - Width 2.0 -Post Debridement (cm) - Depth 0.1 -Total Square (Post) (cm) 3.40 -Area of Debridement (cm) - Length 1.7 -Area of Debridement (cm) - Width 2.0 -Total Square (Area) (cm) 3.40 -Tunneling No -Undermining/Tunneling No -Circular Undermining No -Wound/Ulcer Outcome -Ulcer Cleansing Rinsed/ Irrigated with Saline -Foul Odor after Cleansing No -Bioengineered Tissue -Bleeding Controlled with Pressure -Treatment Response Procedure Tolerated Well -Debridement - Open, 1st 20sq cm -Debridement - Subq, 1st 20sq cm No #14- R LAT ANKLE -Time 10:36 -Correct Patient Yes -Correct Side, Site, Position Yes -Correct Procedure -Procedure Performed -Type of Procedure -Clinical Debridement -Tissue Removed -Post Debridement (cm) - Length -Post Debridement (cm) - Width -Post Debridement (cm) - Depth -Total Square (Post) (cm) -Area of Debridement (cm) - Length -Area of Debridement (cm) - Width -Total Square (Area) (cm) -Tunneling -Undermining/Tunneling -Circular Undermining -Wound/Ulcer Outcome -Ulcer Cleansing -Foul Odor after Cleansing -Bioengineered Tissue -Bleeding Controlled with -Treatment Response -Debridement - Open, 1st 20sq cm -Debridement - Subq, 1st 20sq cm -Debridement, SubQ, ea addt'l 20sq cm or part thereof #3 R Lat foot -Time 10:36 -Correct Patient Yes -Correct Side, Site, Position Yes -Correct Procedure Yes -Procedure Performed Yes -Type of Procedure Debridement -Clinical Debridement Subcutaneous -Tissue Removed Subcutaneous -Post Debridement (cm) - Length 1.0 -Post Debridement (cm) - Width 3.5 -Post Debridement (cm) - Depth 0.1 -Total Square (Post) (cm) 3.50 -Area of Debridement (cm) - Length 1.0 -Area of Debridement (cm) - Width 3.5 -Total Square (Area) (cm) 3.50 -Circular Undermining No -Wound/Ulcer Outcome Not Healed -Ulcer Cleansing Rinsed/ Irrigated with Saline -Foul Odor after Cleansing No -Bioengineered Tissue No -Bleeding Controlled with Pressure -Treatment Response Procedure Tolerated Well -Debridement - Subq, 1st 20sq cm Yes Pain Scale: 0-10 Numeric Is Patient Pain Free? Yes bilat LE -Intensity -Duration (hours) -Pain Behavior -Alleviating Factors/Interventions WC - Nurse 3 - General Ulcer D/C NN Start: 11/02/23 10:44 Freq: Status: Active Protocol: Activity Type Activity Date Activity User E-sign Co-sign Detail Recorded Client Recorded Date Recorded By Document 11/02/23 11:55 RB [id number] 11/02/23 11:58 RB Document 11/10/23 13:13 GM Desktop 11/10/23 13:14 GM Document 11/17/23 12:00 RB Desktop 11/17/23 12:09 RB Document 11/24/23 10:53 CP Desktop 11/24/23 11:13 CP 11/02/23 11/10/23 11/17/23 11:55 13:13 12:00 Wound Care Center Nurse 3 #18 R Medial ankle -Ulcer Cleansing Wound Cleanser Wound Cleanser -Foul Odor after Cleansing -Primary Dressing Applied Aquacel Extra, Fibracol Plus 4x4 -Other Dressing FIBRACOL/ abd AQUACEL EXTRA -Primary Dressing Covered/Secured with Dry Gauze & Roll Gauze, Secured with Tape -Other Covering ABD -Aquacel Extra 1 -Fibracol Plus 4x4 1 #16 Right Medial Superior cluster -Ulcer Cleansing Wound Cleanser Not Cleansed Wound Cleanser -Foul Odor after Cleansing No -Primary Dressing Applied Aquacel Extra, Aquacel Extra, Fibracol Plus Fibracol Plus 4x4 4x4 -Other Dressing ABD fibracol/ aquacel extra/ abd -Primary Dressing Covered/Secured with Dry Gauze & Dry Gauze, Roll Gauze, Secured with Secured with Tape Tape -Aquacel Extra 1 1 -Fibracol Plus 4x4 1 1 #14- R LAT ANKLE -Ulcer Cleansing Wound Cleanser Wound Cleanser -Foul Odor after Cleansing -Other Dressing FIBRACOL/ fibracol/ AQUACEL EXTRA aquacel extra/ abd -Primary Dressing Covered/Secured with Dry Gauze & Roll Gauze, Secured with Tape #3 R Lat foot -Ulcer Cleansing -Foul Odor after Cleansing -Other Dressing -Primary Dressing Covered/Secured with BILAT LE -Multi-Layered Wrap Application Multi-Layer Unna Boot - Unna Boot - Comp - Bilat ($ Bilateral ($) Bilateral ($) ) Treatment Response Procedure Procedure Tolerated Well Tolerated Well Pain Scale: 0-10 Numeric Is Patient Pain Free? Yes Yes Yes Teaching: Wound Center Control Swelling with Leg Elevation -Person Taught Patient -Teaching Method Discussion -Response to teaching Reinforcement needed Dressing Your Wound -Person Taught Patient -Teaching Method Discussion, Demonstration -Response to teaching Reinforcement needed WC - Visit Discharge Discharge Condition Stable Stable Stable Ambulatory Status Walker, Wheelchair Walker, Wheelchair Wheelchair Transportation [facility] for test Medication Reconcilliation completed & No Yes No provided to patient/care provider Clinical Summary of Care Provided Yes Yes Yes Notes: PT assited to restroom Facility Type Orders Sent 11/24/23 10:53 Wound Care Center Nurse 3 #18 R Medial ankle -Ulcer Cleansing Rinsed/ Irrigated with Saline -Foul Odor after Cleansing No -Primary Dressing Applied Aquacel Extra, Fibracol Plus 4x4 -Other Dressing -Primary Dressing Covered/Secured with Dry Gauze & Roll Gauze, Secured with Tape -Other Covering -Aquacel Extra 1 -Fibracol Plus 4x4 1 #16 Right Medial Superior cluster -Ulcer Cleansing -Foul Odor after Cleansing -Primary Dressing Applied -Other Dressing -Primary Dressing Covered/Secured with -Aquacel Extra -Fibracol Plus 4x4 #14- R LAT ANKLE -Ulcer Cleansing Rinsed/ Irrigated with Saline -Foul Odor after Cleansing No -Other Dressing aquacel , fibracol -Primary Dressing Covered/Secured with Dry Gauze & Roll Gauze, Secured with Tape #3 R Lat foot -Ulcer Cleansing Rinsed/ Irrigated with Saline -Foul Odor after Cleansing No -Other Dressing aquacel , fibracol -Primary Dressing Covered/Secured with Dry Gauze & Roll Gauze, Secured with Tape BILAT LE -Multi-Layered Wrap Application Unna Boot - Bilateral ($) Treatment Response Procedure Tolerated Well Pain Scale: 0-10 Numeric Is Patient Pain Free? Yes Teaching: Wound Center Control Swelling with Leg Elevation -Person Taught -Teaching Method -Response to teaching Dressing Your Wound -Person Taught -Teaching Method -Response to teaching WC - Visit Discharge Discharge Condition Stable Ambulatory Status Wheelchair Transportation ecf transportation Medication Reconcilliation completed & No provided to patient/care provider Clinical Summary of Care Provided Yes Notes: Facility Type Residential Care Facility Orders Sent Yes Additional Wound Wound debrided: Right lateral ankle/foot Laterality: Right Type of Debridement: Excisional debridement and Selective debridement Anesthesia Used: 5% Lidocaine Gel Depth: Down to and including healthy tissue and in the subcutaneous layer Percentage of wound debrided: 100 Instrument Used: 3mm curette Tissue Removed: Slough and devitalized tissue Severity: Fat Layer Exposed Amount of bleeding with debridement: None Bleeding Controlled with: Pressure Patient tolerated procedure: Patient tolerated procedure well Additional Wound Wound debrided: Right medial foot/ankle Type of Debridement: Excisional debridement Anesthesia Used: 5% Lidocaine Gel Depth: Down to and including healthy tissue and in the subcutaneous layer Percentage of wound debrided: 100 Instrument Used: 3mm curette Tissue Removed: Slough and devitalized tissue Severity: Fat Layer Exposed Amount of bleeding with debridement: Mild Bleeding Controlled with: Pressure Patient tolerated procedure: Patient tolerated procedure well Assessment/Plan Assessment/Plan (1) Ulcer of right lower extremity with fat layer exposed: CODE(S): L97.912 - Non-pressure chronic ulcer of unspecified part of right lower leg with fat layer exposed (2) Ulcer of left lower extremity with fat layer exposed: CODE(S): L97.922 - Non-pressure chronic ulcer of unspecified part of left lower leg with fat layer exposed (3) Venous insufficiency: CODE(S): I87.2 - Venous insufficiency (chronic) (peripheral) (4) Lymphedema: CODE(S): I89.0 - Lymphedema, not elsewhere classified (5) Pain in left lower leg: CODE(S): M79.662 - Pain in left lower leg PLAN: Plan Debridement performed today in clinic as annotated above. At home wound-care instructions: Will reapply UNNA boot compression wraps and dress open areas with Fibracol and Aquacel Extra. Keep dressing clean and dry. Off-loading: The patient was instructed to avoid pressure and friction on the affected areas. Reposition every 2 hours at minimum. Avoid prolonged standing and/or dangling of legs. When seated, feet should be elevated at chest level. Frequent ambulation is encouraged. Diet: Patient encouraged to increase protein intake while taking caution to avoid high carbohydrate and/or sugar intake. Labs/cultures/imaging: Follow-up: Return in 1 week for wound care follow up. Return sooner or report to the emergency room should symptoms worsen, or new symptoms arise. Note: [employer] speech recognition gas engine operator software was used to create portions of this document. Sound-alike and misspelled words, as well as other gas engine operator errors may be contained in the documentation. This note was generated with [employer] dictation software. It may contain incorrect words, spelling, and punctuation that were not noted in checking the note before signing.
== END 2023-11-26 23:59 | disposition home or self-care (01) ==
LOC: WC 10:00
PROVIDERS: PCP Family Medicine; Referring Provider Internal Medicine; Visit Provider Internal Medicine
DX: I87.2 Venous insufficiency (chronic) (peripheral) (principal); L97.812 Non-pressure chronic ulcer of other part of right lower leg with fat layer exposed; L97.312 Non-pressure chronic ulcer of right ankle with fat layer exposed; L97.512 Non-pressure chronic ulcer of other part of right foot with fat layer exposed; I89.0 Lymphedema, not elsewhere classified; M79.662 Pain in left lower leg
CPT/HCPCS: 11042; 11045; 29580; 29581; 93971; 97597

== ENCOUNTER → 2023-12-15 | Outpatient (REF) | payer MEDICARE, MEDICAID, SELFPAY ==
[2023-12-15 08:15] LABS: Absolute Lymphocyte Count 1.59 X10^3/uL (0.83-4.51); Absolute Neutrophil Count 5.1 X10^3/uL (2.0-7.7); Basophil# 0.03 X10^3/uL; Basophil% 0.4 % (0-1); Eosinophil# 0.16 X10^3/uL; Eosinophils% 2.1 % (0-5); Hematocrit 36.9 % (40-54); Hemoglobin 11.7 g/dL (13.0-16.5); Lymphocyte # 1.59 X10^3/ul (0.83-4.51); Lymphocyte % 20.9 % (19-41); Mean Corp Hgb Conc 31.7 g/dL (32-36); Mean Corpuscular Hgb 26.6 pg (27.0-32.0); Mean Corpuscular Volume 83.9 fL (80-94); Mean Platelet Vol. 9.5 fl (6.2-12.0); Monocyte# 0.76 X10^3/uL; NRBC Flagged by Analyzer 0 % (0-5); Neutrophil # 5.05 X10^3/uL (2.7-7.7); Neutrophil % 66.5 % (47-70); Platelet Count 258 K/mm3 (150-450); RBC Distribution Width CV 15.3 % (11.6-14.6); RBC Distribution Width SD 46.7 fl (35.1-43.9); White Blood Count 7.6 K/mm3 (4.4-11.0)
[2023-12-15 09:50] LABS: ALB/GLOB Ratio 0.8 RATIO (0.9-2.4); AST(SGOT) 22 U/L (15-37); Alanine Aminotransfer ALT/SGPT 16 U/L (16-61); Albumin, Serum 3.5 g/dL (3.2-5.0); Alkaline Phosphatase 71 U/L (45-117); Anion Gap 2 (5-15); BUN 16 mg/dL (7-18); BUN/Creat Ratio 15.5 RATIO (10-20); Calcium,Total 9.1 mg/dL (8.5-10.1); Chloride 107 mmol/L (98-107); Creatinine, Serum 1.03 mg/dL (0.70-1.30); EST Glomerular Filtration Rate 74 mL/min (>60); Est Glom Filt Rate - Afr Amer 89 mL/min (>60); Globulin 4.6 g/dL (2.2-4.2); Glucose 81 mg/dL (74-106); Potassium 3.8 mmol/L (3.5-5.1); Prealbumin 18.7 mg/dL (20.0-40.0); Protein, Total 8.1 g/dL (6.4-8.2); Sodium Level 139 mmol/L (136-145)
== END ==
LOC: OLS.SWAL 04:00
PROVIDERS: PCP Family Medicine; Referring Provider Internal Medicine; Visit Provider Internal Medicine
DX: L97.919 Non-pressure chronic ulcer of unspecified part of right lower leg with unspecified severity (principal); Z79.899 Other long term (current) drug therapy
CPT/HCPCS: 36415; 80053; 84134; 85025

== ENCOUNTER 2023-12-21 10:30 | Outpatient (RCR) | payer MEDICARE, MEDICAID, SELFPAY ==
[2023-11-27 00:14] VITALS: BP 117/68; PULSE 73; RESP 18; TEMP 36.5; O2SAT 97
[2023-11-30 09:56] VITALS: BP 132/71; PULSE 71; RESP 20; TEMP 36.1
--- NOTE | 2023-11-30 10:28 | PCM.WC.PN ---
History of Present Illness Date of Service: 11/30/23 Chief Complaint: Right lower extremity ulcers History of Wound: Mr. Boles is an 83-year-old currently residing at [facility] who presents due to nonhealing bilateral lower extremity ulceration. He was seen here a few months ago and discharged after he achieved healing. Recommendation was for continued use of his lymphedema pump however he states that this has not been used consistently. Current ulceration has been present for weeks. No chills, fever or otherwise feeling of unwell. Progress of Wound: He has no new concerns at this time. Had an Unna boot applied at his last 2 visits due to poor tolerance of the 3M wrap. Per Nursing staff, he had been instructing his facility nurses to take out the 3M wrap. Presents today with worsening right lower extremity ulcerations. He states that he has been sleeping more in the chair. No chills, fever or otherwise feeling of unwell reported. Objective Data Objective Data Vital Signs: Vital Signs Temp Pulse Resp BP Pulse Ox 97 F L 71 20 H 132/71 H 97 11/30/23 09:56 11/30/23 09:56 11/30/23 09:56 11/30/23 09:56 11/27/23 00:14 Charges/Coding Procedures Integumentary [id number]: [id number] Jaye subq tissue 20 sq cm/< Physical Exam Const alert, oriented x3 and no apparent distress General Appearance: cooperative, comfortable and well kempt HEENT normocephalic and head/scalp atraumatic Eyes EOMs intact bilaterally General Eye: normal appearance of both eyes Neck full ROM General: normal visual inspection Resp normal respiratory effort Effort and Inspection: able to speak in complete sentences Extremity General Extremity: edema Skin Wounds: wounds noted Neuro oriented x3, moves all extremities and no focal motor deficits Psych mental status grossly normal, thought process normal, cooperative and affect normal Debridement Note Debridement Note Wound debrided: Right sinclair ( Superior ) Laterality: Right Type of Debridement: Excisional debridement Anesthesia Used: 5% Lidocaine Gel Depth: Down to and including healthy tissue and in the subcutaneous layer Percentage of wound debrided: 100 Instrument Used: 5mm curette Tissue Removed: Slough and devitalized tissue Severity: Fat Layer Exposed Amount of bleeding with debridement: Mild Bleeding Controlled with: Compression and gauze Patient tolerated procedure: Patient tolerated procedure well Post-Debridement Measurements and Additional Note: Post-Debridement Measurements/Treatment JANAY - Nurse 1 - General Ulcer Assessment Start: 11/30/23 09:47 Freq: Status: Active Protocol: LINDA Activity Type Activity Date Activity User E-sign Co-sign Detail Recorded Client Recorded Date Recorded By Document 11/30/23 09:56 KW [email or web address] 11/30/23 10:07 KW 11/30/23 09:56 WC - Today's Visit Information Type of service Follow-up Visit (Physician/GEOPHYSICAL PROSPECTING PERMIT AGENT ) Arrival Mode Wheelchair Transfer Assistance Manual Transfer Assist (Other) x2 Patient Identification Verified (Name & Yes ) Patient Requires Transmission-Based No Precautions Vital Signs Temperature (97.8 F-99.1 F) 97 F L Temperature Source Temporal Pulse Rate (60-100) 71 Pulse Location Monitor Respiratory Rate (12-18) 20 H Respiratory rate source Observation Blood Pressure (90/60-120/80) 132/71 H Blood Pressure Mean (mm Hg) 91 Source Monitor History Since Last Visit- (Skip if this is Patient's initial visit) Have you changed medications since your No last visit? Any new allergies or adverse reactions No Had a fall/change in ADL's that may No increase risk of falls Signs or symptoms of abuse and/or No neglect since last visit Have you been in the hospital since your No last visit? Has dressing in place as prescribed Yes Has compression in place as prescribed Yes Has offloadiing in place as prescribed N/A Experienced any changes in pain level or No management Pain Scale: 0-10 Numeric Is Patient Pain Free? Yes - Nurse 1 - General Ulcer Measurement Start: 11/30/23 09:47 Freq: Status: Active Protocol: Activity Type Activity Date Activity User E-sign Co-sign Detail Recorded Client Recorded Date Recorded By Document 11/30/23 09:56 KW [email or web address] 11/30/23 10:07 KW 11/30/23 09:56 Wound Center Nurse 1 #3 R Lat foot -Current Size (cm) - Length 0.1 -Current Size (cm) - Width 0.1 -Current Size (cm) - Depth 0.1 -Total Square Cm 0.01 -Exudate Amt Medium -Exudate Type Serosanguineous -Wound Margin Distinct, Outline Attached -Granulation Amt Medium (34-66%) -Granulation Quality [place] -Necrosis Amt Medium (34-66%) -Necrotic Tissue Type Adherent Slough -Structure Exposed N/A -Texture ([place]-wound Skin Appearance) Scarring -Moisture ([place]-wound Skin Appearance) Maceration -Color ([place]-wound Skin Appearance) Hemosiderin Staining -Temperature ([place]-wound Skin No Abnormality Appearance) (Pt Warm) -Tenderness on Palpation ([place]-wound No Skin Appearance) -Ulcer Cleansing Soap and Water -Foul Odor after Cleansing No -Anesthetic Used 4% Lidocaine Solution #18 R Medial ankle -Current Size (cm) - Length 0.1 -Current Size (cm) - Width 0.1 -Current Size (cm) - Depth 0.1 -Total Square Cm 0.01 -Exudate Amt Large -Exudate Type Serosanguineous -Wound Margin Distinct, Outline Attached -Granulation Amt Medium (34-66%) -Granulation Quality [place] -Necrosis Amt Medium (34-66%) -Necrotic Tissue Type Adherent Slough -Structure Exposed None/Limited to Skin Breakdown -Texture ([place]-wound Skin Appearance) Scarring -Moisture ([place]-wound Skin Appearance) Maceration -Color ([place]-wound Skin Appearance) Hemosiderin Staining -Temperature ([place]-wound Skin No Abnormality Appearance) (Pt Warm) -Tenderness on Palpation ([place]-wound No Skin Appearance) -Ulcer Cleansing Soap and Water -Foul Odor after Cleansing No -Anesthetic Used 4% Lidocaine Solution #16 Right Medial Superior cluster -Current Size (cm) - Length 0.1 -Current Size (cm) - Width 0.1 -Current Size (cm) - Depth 0.1 -Total Square Cm 0.01 -Exudate Amt Small -Exudate Type Serosanguineous -Wound Margin Indistinct, Non -Visible -Granulation Amt Small (1-33%) -Granulation Quality [place] -Necrosis Amt Small (1-33%) -Necrotic Tissue Type Adherent Slough -Structure Exposed N/A -Texture ([place]-wound Skin Appearance) Scarring -Moisture ([place]-wound Skin Appearance) No Abnormality, Dry/Scaly -Color ([place]-wound Skin Appearance) Hemosiderin Staining -Ulcer Cleansing Soap and Water -Foul Odor after Cleansing No -Anesthetic Used 4% Lidocaine Solution #14- R LAT ANKLE -Current Size (cm) - Length 0.1 -Current Size (cm) - Width 0.1 -Current Size (cm) - Depth 0.1 -Total Square Cm 0.01 -Exudate Amt Medium -Exudate Type Serosanguineous -Wound Margin Distinct, Outline Attached -Granulation Amt Medium (34-66%) -Granulation Quality Red -Necrosis Amt Medium (34-66%) -Necrotic Tissue Type Adherent Slough -Structure Exposed N/A -Texture ([place]-wound Skin Appearance) Scarring -Moisture ([place]-wound Skin Appearance) Maceration -Color ([place]-wound Skin Appearance) Hemosiderin Staining -Ulcer Cleansing Soap and Water -Foul Odor after Cleansing No -Anesthetic Used 4% Lidocaine Solution Right Calf (cm) 46.5 Right Ankle (cm) 33 Left Calf (cm) 41.5 Left Ankle (cm) 31.7 WC - Nurse 2 - General Ulcer CM Notes Start: 11/30/23 09:47 Freq: Status: Active Protocol: Activity Type Activity Date Activity User E-sign Co-sign Detail Recorded Client Recorded Date Recorded By Document 11/30/23 10:24 Desktop 11/30/23 10:28 11/30/23 10:24 Wound Center Nurse 2 #18 R Medial ankle -Time 10:24 -Correct Patient Yes -Correct Side, Site, Position Yes -Correct Procedure Yes -Procedure Performed Yes -Type of Procedure Debridement -Clinical Debridement Subcutaneous -Tissue Removed Subcutaneous -Post Debridement (cm) - Length 3.5 -Post Debridement (cm) - Width 5 -Post Debridement (cm) - Depth 0.1 -Total Square (Post) (cm) 17.5 -Area of Debridement (cm) - Length 3.5 -Area of Debridement (cm) - Width 5 -Total Square (Area) (cm) 17.5 -Tunneling No -Undermining/Tunneling No -Circular Undermining No -Wound/Ulcer Outcome Not Healed -Ulcer Cleansing Rinsed/ Irrigated with Saline -Foul Odor after Cleansing No -Bioengineered Tissue No -Bleeding Controlled with Pressure -Treatment Response Procedure Tolerated Well -Debridement - Subq, 1st 20sq cm No #16 Right Medial Superior cluster -Time 10:25 -Correct Patient Yes -Correct Side, Site, Position Yes -Correct Procedure Yes -Procedure Performed Yes -Type of Procedure Debridement -Clinical Debridement Subcutaneous -Tissue Removed Subcutaneous -Post Debridement (cm) - Length 7.5 -Post Debridement (cm) - Width 3 -Post Debridement (cm) - Depth 0.1 -Total Square (Post) (cm) 22.5 -Area of Debridement (cm) - Length 7.5 -Area of Debridement (cm) - Width 3 -Total Square (Area) (cm) 22.5 -Tunneling No -Undermining/Tunneling No -Circular Undermining No -Wound/Ulcer Outcome Not Healed -Ulcer Cleansing Rinsed/ Irrigated with Saline -Foul Odor after Cleansing No -Bioengineered Tissue No -Bleeding Controlled with Pressure -Treatment Response Procedure Tolerated Well -Debridement - Subq, 1st 20sq cm No #14- R LAT ANKLE -Time 10:26 -Correct Patient Yes -Correct Side, Site, Position Yes -Correct Procedure Yes -Procedure Performed Yes -Type of Procedure Debridement -Clinical Debridement Subcutaneous -Tissue Removed Subcutaneous -Post Debridement (cm) - Length 2.5 -Post Debridement (cm) - Width 12.3 -Post Debridement (cm) - Depth 0.1 -Total Square (Post) (cm) 30.75 -Area of Debridement (cm) - Length 2.5 -Area of Debridement (cm) - Width 12.3 -Total Square (Area) (cm) 30.75 -Tunneling No -Undermining/Tunneling No -Circular Undermining No -Wound/Ulcer Outcome Not Healed -Ulcer Cleansing Rinsed/ Irrigated with Saline -Foul Odor after Cleansing No -Bleeding Controlled with Pressure -Treatment Response Procedure Tolerated Well -Debridement - Subq, 1st 20sq cm Yes -Debridement, SubQ, ea addt'l 20sq cm 3 or part thereof Pain Scale: 0-10 Numeric Is Patient Pain Free? Yes Additional Wound Wound debrided: Right lateral ankle/foot Laterality: Right Type of Debridement: Excisional debridement and Selective debridement Anesthesia Used: 5% Lidocaine Gel Depth: Down to and including healthy tissue and in the subcutaneous layer Percentage of wound debrided: 100 Instrument Used: 5mm curette Tissue Removed: Slough and devitalized tissue Severity: Fat Layer Exposed Amount of bleeding with debridement: None Bleeding Controlled with: Pressure Patient tolerated procedure: Patient tolerated procedure well Additional Wound Wound debrided: Right medial foot/ankle Type of Debridement: Excisional debridement Anesthesia Used: 5% Lidocaine Gel Depth: Down to and including healthy tissue and in the subcutaneous layer Percentage of wound debrided: 100 Instrument Used: 5mm curette Tissue Removed: Slough and devitalized tissue Severity: Fat Layer Exposed Amount of bleeding with debridement: Mild Bleeding Controlled with: Pressure Patient tolerated procedure: Patient tolerated procedure well Assessment/Plan Assessment/Plan (1) Ulcer of right lower extremity with fat layer exposed: CODE(S): L97.912 - Non-pressure chronic ulcer of unspecified part of right lower leg with fat layer exposed (2) Ulcer of left lower extremity with fat layer exposed: CODE(S): L97.922 - Non-pressure chronic 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 Stable left lower extremity however, there seems to be worsening right lower extremity ulcers and edema. As above, sleeping more in the chair than in bed. He states that he is using his lymphedema pump appropriately. Has had an Unna boot for 2 weeks now. DC on and go back to 3M wrap for edema management. Aquacel extra, cover with superabsorbent dressing. Continue 3M wraps. Change dressing and wrap on Monday and Monday at the facility. Continue use of lymphedema pump twice daily. Leg elevation and compression also very strongly recommended, he voiced understanding. Continue other chronic wound care. His questions were answered and he was advised to call with any further questions or concerns. Follow-up in 1 week. This note was generated with [employer] dictation software. It may contain incorrect words, spelling, and punctuation that were not noted in checking the note before signing.
[2023-12-07 10:44] VITALS: BP 103/88; PULSE 66; RESP 18; TEMP 36.2
--- NOTE | 2023-12-07 13:28 | PN.PCM_ITS ---
History of Present Illness Date of Service: 12/07/23 Chief Complaint: Right lower extremity ulcers History of Wound: Mr. Boles is an 83-year-old currently residing at [facility] who presents due to nonhealing bilateral lower extremity ulceration. He was seen here a few months ago and discharged after he achieved healing. Recommendation was for continued use of his lymphedema pump however he states that this has not been used consistently. Current ulceration has been present for weeks. No chills, fever or otherwise feeling of unwell. Progress of Wound: Overall, stable. No new concerns at this time. He states that he slept in bed more this past week. Objective Data Objective Data Vital Signs: Vital Signs Temp Pulse Resp BP Pulse Ox O2 Del Method 97.2 F L 66 18 103/88 H 97 Room Air 12/07/23 10:44 12/07/23 10:44 12/07/23 10:44 12/07/23 10:44 11/27/23 00:14 12/07/23 10:44 Oxygen Delivery Method Room Air Charges/Coding Procedures Integumentary 111xxx-113xx: [id number] Jaye subq tissue 20 sq cm/< Physical Exam Const alert, oriented x3 and no apparent distress General Appearance: cooperative, comfortable and well kempt HEENT normocephalic and head/scalp atraumatic Eyes EOMs intact bilaterally General Eye: normal appearance of both eyes Neck full ROM General: normal visual inspection Resp normal respiratory effort Effort and Inspection: able to speak in complete sentences Extremity General Extremity: edema Skin Wounds: wounds noted Neuro oriented x3, moves all extremities and no focal motor deficits Psych mental status grossly normal, thought process normal, cooperative and affect normal Debridement Note Debridement Note Wound debrided: Right sinclair ( Superior ) Laterality: Right Type of Debridement: Excisional debridement Anesthesia Used: 5% Lidocaine Gel Depth: Down to and including healthy tissue and in the subcutaneous layer Percentage of wound debrided: 100 Instrument Used: 5mm curette Tissue Removed: Slough and devitalized tissue Severity: Fat Layer Exposed Amount of bleeding with debridement: Mild Bleeding Controlled with: Compression and gauze Patient tolerated procedure: Patient tolerated procedure well Post-Debridement Measurements and Additional Note: Post-Debridement Measurements/Treatment JANAY - Nurse 1 - General Ulcer Assessment Start: 11/30/23 09:47 Freq: Status: Active Protocol: WC.LOWEXT Activity Type Activity Date Activity User E-sign Co-sign Detail Recorded Client Recorded Date Recorded By Document 11/30/23 09:56 KW Desktop 11/30/23 10:07 KW Document 12/07/23 10:44 KW Desktop 12/07/23 10:49 KW 11/30/23 12/07/23 09:56 10:44 - Today's Visit Information Type of service Follow-up Visit Follow-up Visit (Physician/COATER OPERATOR (Physician/COATER OPERATOR ) ) Arrival Mode Wheelchair Wheelchair Transfer Assistance Manual Transfer Assist (Other) x2 Patient Identification Verified (Name & Yes Yes ) Patient Requires Transmission-Based No Precautions Vital Signs Temperature (97.8 F-99.1 F) 97 F L 97.2 F L Temperature Source Temporal Temporal Pulse Rate (60-100) 71 66 Pulse Location Monitor Monitor Respiratory Rate (12-18) 20 H 18 Respiratory rate source Observation Observation Oxygen Delivery Method Room Air Blood Pressure (90/60-120/80) 132/71 H 103/88 H Blood Pressure Mean (mm Hg) 91 93 Source Monitor Monitor Position Sitting Blood Pressure Location Left Arm History Since Last Visit- (Skip if this is Patient's initial visit) Have you changed medications since your No No last visit? Any new allergies or adverse reactions No No Had a fall/change in ADL's that may No No increase risk of falls Signs or symptoms of abuse and/or No No neglect since last visit Have you been in the hospital since your No No last visit? Has dressing in place as prescribed Yes Yes Has compression in place as prescribed Yes Yes Has offloadiing in place as prescribed N/A N/A Experienced any changes in pain level or No No management Left Footwear Custom Shoe Right Footwear Custom Shoe Pain Scale: 0-10 Numeric Is Patient Pain Free? Yes Yes - Nurse 1 - General Ulcer Measurement Start: 11/30/23 09:47 Freq: Status: Active Protocol: Activity Type Activity Date Activity User E-sign Co-sign Detail Recorded Client Recorded Date Recorded By Document 11/30/23 09:56 KW Desktop 11/30/23 10:07 KW Document 12/07/23 10:44 KW Desktop 12/07/23 10:49 KW 11/30/23 12/07/23 09:56 10:44 Wound Center Nurse 1 #3 R Lat foot -Current Size (cm) - Length 0.1 -Current Size (cm) - Width 0.1 -Current Size (cm) - Depth 0.1 -Total Square Cm 0.01 -Exudate Amt Medium -Exudate Type Serosanguineous -Wound Margin Distinct, Outline Attached -Granulation Amt Medium (34-66%) -Granulation Quality [place] -Necrosis Amt Medium (34-66%) -Necrotic Tissue Type Adherent Slough -Structure Exposed N/A -Texture ([place]-wound Skin Appearance) Scarring -Moisture ([place]-wound Skin Appearance) Maceration -Color ([place]-wound Skin Appearance) Hemosiderin Staining -Temperature ([place]-wound Skin No Abnormality Appearance) (Pt Warm) -Tenderness on Palpation ([place]-wound No Skin Appearance) -Ulcer Cleansing Soap and Water -Foul Odor after Cleansing No -Anesthetic Used 4% Lidocaine Solution #18 R Medial ankle -Current Size (cm) - Length 0.1 -Current Size (cm) - Width 0.1 -Current Size (cm) - Depth 0.1 -Total Square Cm 0.01 -Exudate Amt Large Large -Exudate Type Serosanguineous Yellow/Green -Wound Margin Distinct, Outline Attached -Granulation Amt Medium (34-66%) Small (1-33%) -Granulation Quality [place] -Necrosis Amt Medium (34-66%) Large (67-100%) -Necrotic Tissue Type Adherent Slough Adherent Slough -Structure Exposed None/Limited to Skin Breakdown -Texture ([place]-wound Skin Appearance) Scarring Assessed -Moisture ([place]-wound Skin Appearance) Maceration Assessed -Color ([place]-wound Skin Appearance) Hemosiderin Assessed Staining -Temperature ([place]-wound Skin No Abnormality No Abnormality Appearance) (Pt Warm) (Pt Warm) -Tenderness on Palpation ([place]-wound No Skin Appearance) -Ulcer Cleansing Soap and Water Soap and Water -Foul Odor after Cleansing No Yes -Anesthetic Used 4% Lidocaine 4% Lidocaine Solution Solution #16 Right Medial Superior cluster -Current Size (cm) - Length 0.1 -Current Size (cm) - Width 0.1 -Current Size (cm) - Depth 0.1 -Total Square Cm 0.01 -Exudate Amt Small Large -Exudate Type Serosanguineous Yellow/Green -Wound Margin Indistinct, Non -Visible -Granulation Amt Small (1-33%) -Granulation Quality [place] -Necrosis Amt Small (1-33%) Large (67-100%) -Necrotic Tissue Type Adherent Slough Adherent Slough -Structure Exposed N/A -Texture ([place]-wound Skin Appearance) Scarring Assessed -Moisture ([place]-wound Skin Appearance) No Abnormality, Assessed Dry/Scaly -Color ([place]-wound Skin Appearance) Hemosiderin Assessed Staining -Temperature ([place]-wound Skin No Abnormality Appearance) (Pt Warm) -Tenderness on Palpation ([place]-wound No Skin Appearance) -Ulcer Cleansing Soap and Water Soap and Water -Foul Odor after Cleansing No Yes -Anesthetic Used 4% Lidocaine 4% Lidocaine Solution Solution #14- R LAT ANKLE -Current Size (cm) - Length 0.1 -Current Size (cm) - Width 0.1 -Current Size (cm) - Depth 0.1 -Total Square Cm 0.01 -Exudate Amt Medium -Exudate Type Serosanguineous -Wound Margin Distinct, Outline Attached -Granulation Amt Medium (34-66%) Medium (34-66%) -Granulation Quality Red Red -Necrosis Amt Medium (34-66%) Small (1-33%) -Necrotic Tissue Type Adherent Slough Adherent Slough -Structure Exposed N/A -Texture ([place]-wound Skin Appearance) Scarring Assessed -Moisture ([place]-wound Skin Appearance) Maceration Assessed -Color ([place]-wound Skin Appearance) Hemosiderin Assessed Staining -Temperature ([place]-wound Skin No Abnormality Appearance) (Pt Warm) -Ulcer Cleansing Soap and Water Soap and Water -Foul Odor after Cleansing No No -Anesthetic Used 4% Lidocaine 4% Lidocaine Solution Solution Right Calf (cm) 46.5 41.5 Right Ankle (cm) 33 31.5 Left Calf (cm) 41.5 45 Left Ankle (cm) 31.7 31.5 WC - Nurse 2 - General Ulcer CM Notes Start: 11/30/23 09:47 Freq: Status: Active Protocol: Activity Type Activity Date Activity User E-sign Co-sign Detail Recorded Client Recorded Date Recorded By Document 11/30/23 10:24 GM Desktop 11/30/23 10:28 GM Document 12/07/23 11:37 GM Desktop 12/07/23 11:50 GM 11/30/23 12/07/23 10:24 11:37 Wound Center Nurse 2 #18 R Medial ankle -Time 10:24 11:37 -Correct Patient Yes Yes -Correct Side, Site, Position Yes Yes -Correct Procedure Yes Yes -Procedure Performed Yes Yes -Type of Procedure Debridement Debridement -Clinical Debridement Subcutaneous Subcutaneous -Tissue Removed Subcutaneous Subcutaneous -Post Debridement (cm) - Length 3.5 5.0 -Post Debridement (cm) - Width 5 5.0 -Post Debridement (cm) - Depth 0.1 0.1 -Total Square (Post) (cm) 17.5 25.00 -Area of Debridement (cm) - Length 3.5 5.0 -Area of Debridement (cm) - Width 5 5.0 -Total Square (Area) (cm) 17.5 25.00 -Tunneling No No -Undermining/Tunneling No No -Circular Undermining No No -Wound/Ulcer Outcome Not Healed Not Healed -Ulcer Cleansing Rinsed/ Rinsed/ Irrigated with Irrigated with Saline Saline -Foul Odor after Cleansing No No -Bioengineered Tissue No No -Bleeding Controlled with Pressure Pressure -Treatment Response Procedure Procedure Tolerated Well Tolerated Well -Debridement - Subq, 1st 20sq cm No Yes -Debridement, SubQ, ea addt'l 20sq cm 2 or part thereof #16 Right Medial Superior cluster -Time 10:25 11:38 -Correct Patient Yes Yes -Correct Side, Site, Position Yes Yes -Correct Procedure Yes Yes -Procedure Performed Yes Yes -Type of Procedure Debridement Debridement -Clinical Debridement Subcutaneous Subcutaneous -Tissue Removed Subcutaneous Subcutaneous -Post Debridement (cm) - Length 7.5 2.2 -Post Debridement (cm) - Width 3 2.0 -Post Debridement (cm) - Depth 0.1 0.1 -Total Square (Post) (cm) 22.5 4.40 -Area of Debridement (cm) - Length 7.5 2.2 -Area of Debridement (cm) - Width 3 2 -Total Square (Area) (cm) 22.5 4.4 -Tunneling No No -Undermining/Tunneling No No -Circular Undermining No No -Wound/Ulcer Outcome Not Healed Not Healed -Ulcer Cleansing Rinsed/ Rinsed/ Irrigated with Irrigated with Saline Saline -Foul Odor after Cleansing No No -Bioengineered Tissue No -Bleeding Controlled with Pressure Pressure -Treatment Response Procedure Procedure Tolerated Well Tolerated Well -Offloading No -Debridement - Subq, 1st 20sq cm No No #14- R LAT ANKLE -Time 10:26 11:48 -Correct Patient Yes Yes -Correct Side, Site, Position Yes Yes -Correct Procedure Yes Yes -Procedure Performed Yes Yes -Type of Procedure Debridement Debridement -Clinical Debridement Subcutaneous Subcutaneous -Tissue Removed Subcutaneous Subcutaneous -Post Debridement (cm) - Length 2.5 13.0 -Post Debridement (cm) - Width 12.3 3.0 -Post Debridement (cm) - Depth 0.1 0.1 -Total Square (Post) (cm) 30.75 39.00 -Area of Debridement (cm) - Length 2.5 -Area of Debridement (cm) - Width 12.3 -Total Square (Area) (cm) 30.75 -Tunneling No No -Undermining/Tunneling No No -Circular Undermining No No -Wound/Ulcer Outcome Not Healed Not Healed -Ulcer Cleansing Rinsed/ Rinsed/ Irrigated with Irrigated with Saline Saline -Foul Odor after Cleansing No No -Bioengineered Tissue No -Bleeding Controlled with Pressure Pressure -Treatment Response Procedure Procedure Tolerated Well Tolerated Well -Debridement - Subq, 1st 20sq cm Yes No -Debridement, SubQ, ea addt'l 20sq cm 3 or part thereof Pain Scale: 0-10 Numeric Is Patient Pain Free? Yes Yes - Nurse 3 - General Ulcer D/C NN Start: 11/30/23 09:47 Freq: Status: Active Protocol: Activity Type Activity Date Activity User E-sign Co-sign Detail Recorded Client Recorded Date Recorded By Document 11/30/23 10:36 DL Desktop 11/30/23 10:41 DL Document 12/07/23 12:04 DL Desktop 12/07/23 12:24 DL 11/30/23 12/07/23 10:36 12:04 Wound Care Center Nurse 3 #18 R Medial ankle -Ulcer Cleansing Rinsed/ Rinsed/ Irrigated with Irrigated with Saline Saline -Foul Odor after Cleansing No No -Primary Dressing Applied Aquacel Extra Aquacel Extra, Optilok 6.5x10 -Primary Dressing Covered/Secured with Dry Gauze & Dry Gauze & Roll Gauze, Roll Gauze Secured with Tape -Other Covering ABD -Aquacel Extra 1 1 -Optilok 6.5x10 1 #16 Right Medial Superior cluster -Ulcer Cleansing Rinsed/ Rinsed/ Irrigated with Irrigated with Saline Saline -Foul Odor after Cleansing No No -Other Dressing aquacel ex aquacel ex -Primary Dressing Covered/Secured with Dry Gauze & Dry Gauze & Roll Gauze Roll Gauze, Secured with Tape -Other Covering ABD ABD #14- R LAT ANKLE -Ulcer Cleansing Rinsed/ Rinsed/ Irrigated with Irrigated with Saline Saline -Foul Odor after Cleansing No No -Other Dressing aqaucel ex Aqaucel ex -Primary Dressing Covered/Secured with Dry Gauze & Dry Gauze & Roll Gauze, Roll Gauze, Secured with Secured with Tape Tape -Other Covering ABD radha -Multi-Layered Wrap Application Multi-Layer Multi-Layer Comp - Bilat ($ Comp - Bilat ($ ) ) Treatment Response Procedure Procedure Tolerated Well Tolerated Well Pain Scale: 0-10 Numeric Is Patient Pain Free? 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 Facility Facility Orders Sent Yes Yes Additional Wound Wound debrided: Right lateral ankle/foot Laterality: Right Type of Debridement: Excisional debridement and Selective debridement Anesthesia Used: 5% Lidocaine Gel Depth: Down to and including healthy tissue and in the subcutaneous layer Percentage of wound debrided: 100 Instrument Used: 5mm curette Tissue Removed: Slough and devitalized tissue Severity: Fat Layer Exposed Amount of bleeding with debridement: None Bleeding Controlled with: Pressure Patient tolerated procedure: Patient tolerated procedure well Additional Wound Wound debrided: Right medial foot/ankle Type of Debridement: Excisional debridement Anesthesia Used: 5% Lidocaine Gel Depth: Down to and including healthy tissue and in the subcutaneous layer Percentage of wound debrided: 100 Instrument Used: 5mm curette Tissue Removed: Slough and devitalized tissue Severity: Fat Layer Exposed Amount of bleeding with debridement: Mild Bleeding Controlled with: Pressure Patient tolerated procedure: Patient tolerated procedure well Assessment/Plan Assessment/Plan (1) Ulcer of right lower extremity with fat layer exposed: CODE(S): L97.912 - Non-pressure chronic ulcer of unspecified part of right lower leg with fat layer exposed (2) Ulcer of left lower extremity with fat layer exposed: CODE(S): L97.922 - Non-pressure chronic 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 As above, overall appears stable. Concern for increased maceration left medial (distal) foot/heel, watch this closely. Continue Aquacel extra, cover with superabsorbent dressing. Continue 3M wraps. Change dressing and wrap on Monday and Monday at the facility. Continue use of lymphedema pump twice daily. Leg elevation and compression also very strongly recommended, he voiced understanding. Continue other chronic wound care. His questions were answered and he was advised to call with any further questions or concerns. Follow-up in 1 week. This note was generated with [employer] dictation software. It may contain incorrect words, spelling, and punctuation that were not noted in checking the note before signing.
[2023-12-14 10:42] VITALS: BP 113/65; PULSE 71; RESP 18; TEMP 36.1
--- NOTE | 2023-12-14 11:51 | PCM.WC.PN ---
History of Present Illness Date of Service: 12/14/23 Chief Complaint: Right lower extremity ulcers History of Wound: Mr. Boles is an 83-year-old currently residing at [facility] who presents due to nonhealing bilateral lower extremity ulceration. He was seen here a few months ago and discharged after he achieved healing. Recommendation was for continued use of his lymphedema pump however he states that this has not been used consistently. Current ulceration has been present for weeks. No chills, fever or otherwise feeling of unwell. Progress of Wound: No acute concerns at this time. Cultures from last visit with multiple organisms. Prescription for antibiotics sent to pharmacy on file. He has no new concerns at this time, he is not sure if he has started the antibiotics yet. Objective Data Objective Data Vital Signs: Vital Signs Temp Pulse Resp BP Pulse Ox O2 Del Method 96.9 F L 71 18 113/65 97 Room Air 12/14/23 10:42 12/14/23 10:42 12/14/23 10:42 12/14/23 10:42 11/27/23 00:14 12/07/23 10:44 Oxygen Delivery Method Room Air Lab / Micro Data Micro: Microbiology 12/07/23 11:42 Wound - Other Gram Stain - Final 12/07/23 11:42 Wound - Other Wound Culture - Final Proteus mirabilis Enterococcus faecalis Staphylococcus aureus Pseudomonas aeruginosa 12/07/23 11:42 Wound - Other Anaerobic Culture - Final Bacteroides fragilis Charges/Coding Procedures Integumentary [id number]: [id number] Jaye subq tissue 20 sq cm/< Add On Codes: 02583 Jaye subq tissue add-on (x2. Additional square centimeter debrided, please refer to clinical note.) Physical Exam Const alert, oriented x3 and no apparent distress General Appearance: cooperative, comfortable and well kempt HEENT normocephalic and head/scalp atraumatic Eyes EOMs intact bilaterally General Eye: normal appearance of both eyes Neck full ROM General: normal visual inspection Resp normal respiratory effort Effort and Inspection: able to speak in complete sentences Extremity General Extremity: edema Skin Wounds: wounds noted Neuro oriented x3, moves all extremities and no focal motor deficits Psych mental status grossly normal, thought process normal, cooperative and affect normal Debridement Note Debridement Note Wound debrided: Right sinclair ( Superior ) Laterality: Right Type of Debridement: Excisional debridement Anesthesia Used: 5% Lidocaine Gel Depth: Down to and including healthy tissue and in the subcutaneous layer Percentage of wound debrided: 100 Instrument Used: 5mm curette Tissue Removed: Slough and devitalized tissue Severity: Fat Layer Exposed Amount of bleeding with debridement: Mild Bleeding Controlled with: Compression and gauze Patient tolerated procedure: Patient tolerated procedure well Post-Debridement Measurements and Additional Note: Post-Debridement Measurements/Treatment JANAY - Nurse 1 - General Ulcer Assessment Start: 11/30/23 09:47 Freq: Status: Active Protocol: LINDA Activity Type Activity Date Activity User E-sign Co-sign Detail Recorded Client Recorded Date Recorded By Document 11/30/23 09:56 KW Desktop 11/30/23 10:07 KW Document 12/07/23 10:44 KW Desktop 12/07/23 10:49 KW Document 12/14/23 10:42 RB Desktop 12/14/23 10:48 RB 11/30/23 12/07/23 12/14/23 09:56 10:44 10:42 - Today's Visit Information Type of service Follow-up Visit Follow-up Visit Follow-up Visit (Physician/PAINTER SHIPYARD (Physician/PAINTER SHIPYARD (Physician/PAINTER SHIPYARD ) ) ) Arrival Mode Wheelchair Wheelchair Wheelchair Transfer Assistance Manual Manual Transfer Assist (Other) x2 Patient Identification Verified (Name & Yes Yes Yes ) Patient Requires Transmission-Based No No Precautions Vital Signs Temperature (97.8 F-99.1 F) 97 F L 97.2 F L 96.9 F L Temperature Source Temporal Temporal Temporal Pulse Rate (60-100) 71 66 71 Pulse Location Monitor Monitor Monitor Respiratory Rate (12-18) 20 H 18 18 Respiratory rate source Observation Observation Observation Oxygen Delivery Method Room Air Blood Pressure (90/60-120/80) 132/71 H 103/88 H 113/65 Blood Pressure Mean (mm Hg) 91 93 81 Source Monitor Monitor Monitor Position Sitting Semi-Fowlers Blood Pressure Location Left Arm Left Arm History Since Last Visit- (Skip if this is Patient's initial visit) Have you changed medications since your No No No last visit? Any new allergies or adverse reactions No No No Had a fall/change in ADL's that may No No No increase risk of falls Signs or symptoms of abuse and/or No No No neglect since last visit Have you been in the hospital since your No No No last visit? Has dressing in place as prescribed Yes Yes Yes Has compression in place as prescribed Yes Yes Yes Has offloadiing in place as prescribed N/A N/A No Experienced any changes in pain level or No No No management Left Footwear Custom Shoe Right Footwear Custom Shoe Pain Scale: 0-10 Numeric Is Patient Pain Free? Yes Yes Yes WC - Nurse 1 - General Ulcer Measurement Start: 11/30/23 09:47 Freq: Status: Active Protocol: Activity Type Activity Date Activity User E-sign Co-sign Detail Recorded Client Recorded Date Recorded By Document 11/30/23 09:56 KW Desktop 11/30/23 10:07 KW Document 12/07/23 10:44 KW Desktop 12/07/23 10:49 KW Document 12/14/23 10:42 RB Desktop 12/14/23 10:48 RB 11/30/23 12/07/23 12/14/23 09:56 10:44 10:42 Wound Center Nurse 1 #3 R Lat foot -Current Size (cm) - Length 0.1 -Current Size (cm) - Width 0.1 -Current Size (cm) - Depth 0.1 -Total Square Cm 0.01 -Exudate Amt Medium -Exudate Type Serosanguineous -Wound Margin Distinct, Outline Attached -Granulation Amt Medium (34-66%) -Granulation Quality Green[place] -Necrosis Amt Medium (34-66%) -Necrotic Tissue Type Adherent Slough -Structure Exposed N/A -Texture ([place]-wound Skin Appearance) Scarring -Moisture ([place]-wound Skin Appearance) Maceration -Color ([place]-wound Skin Appearance) Hemosiderin Staining -Temperature ([place]-wound Skin No Abnormality Appearance) (Pt Warm) -Tenderness on Palpation ([place]-wound No Skin Appearance) -Ulcer Cleansing Soap and Water -Foul Odor after Cleansing No -Anesthetic Used 4% Lidocaine Solution #18 R Medial ankle -Combined with other wound No -Current Size (cm) - Length 0.1 0.1 -Current Size (cm) - Width 0.1 0.1 -Current Size (cm) - Depth 0.1 0.1 -Total Square Cm 0.01 0.01 -Tunneling No -Undermining/Tunneling No -Circular Undermining No -Exudate Amt Large Large Large -Exudate Type Serosanguineous Yellow/Green Serosanguineous -Wound Margin Distinct, Distinct, Outline Outline Attached Attached -Granulation Amt Medium (34-66%) Small (1-33%) Medium (34-66%) -Granulation Quality Greenway Greenway [place]way -Slough/Fibrin Yes -Necrosis Amt Medium (34-66%) Large (67-100%) Medium (34-66%) -Necrotic Tissue Type Adherent Slough Adherent Slough Adherent Slough -Structure Exposed None/Limited to N/A Skin Breakdown -Texture ([place]-wound Skin Appearance) Scarring Assessed Assessed -Moisture ([place]-wound Skin Appearance) Maceration Assessed Weeping -Color ([place]-wound Skin Appearance) Hemosiderin Assessed Assessed Staining -Temperature ([place]-wound Skin No Abnormality No Abnormality No Abnormality Appearance) (Pt Warm) (Pt Warm) (Pt Warm) -Tenderness on Palpation ([place]-wound No No Skin Appearance) -Ulcer Cleansing Soap and Water Soap and Water Wound Cleanser -Foul Odor after Cleansing No Yes No -Anesthetic Used 4% Lidocaine 4% Lidocaine 4% Lidocaine Solution Solution Solution #16 Right Medial Superior cluster -Combined with other wound No -Current Size (cm) - Length 0.1 0.1 -Current Size (cm) - Width 0.1 0.1 -Current Size (cm) - Depth 0.1 0.1 -Total Square Cm 0.01 0.01 -Tunneling No -Undermining/Tunneling No -Circular Undermining No -Exudate Amt Small Large Large -Exudate Type Serosanguineous Yellow/Green Serosanguineous -Wound Margin Indistinct, Non Distinct, -Visible Outline Attached -Granulation Amt Small (1-33%) Medium (34-66%) -Granulation Quality Greenway Greenway -Slough/Fibrin Yes -Necrosis Amt Small (1-33%) Large (67-100%) Medium (34-66%) -Necrotic Tissue Type Adherent Slough Adherent Slough Adherent Slough -Structure Exposed N/A N/A -Texture ([place]-wound Skin Appearance) Scarring Assessed Assessed -Moisture ([place]-wound Skin Appearance) No Abnormality, Assessed Assessed, Dry/Scaly Weeping -Color ([place]-wound Skin Appearance) Hemosiderin Assessed Assessed Staining -Temperature ([place]-wound Skin No Abnormality No Abnormality Appearance) (Pt Warm) (Pt Warm) -Tenderness on Palpation ([place]-wound No No Skin Appearance) -Ulcer Cleansing Soap and Water Soap and Water Wound Cleanser -Foul Odor after Cleansing No Yes No -Anesthetic Used 4% Lidocaine 4% Lidocaine 4% Lidocaine Solution Solution Solution #14- R LAT ANKLE -Combined with other wound No -Current Size (cm) - Length 0.1 0.1 -Current Size (cm) - Width 0.1 0.1 -Current Size (cm) - Depth 0.1 0.1 -Total Square Cm 0.01 0.01 -Tunneling No -Undermining/Tunneling No -Circular Undermining No -Exudate Amt Medium Medium -Exudate Type Serosanguineous Serosanguineous -Wound Margin Distinct, Distinct, Outline Outline Attached Attached -Granulation Amt Medium (34-66%) Medium (34-66%) Medium (34-66%) -Granulation Quality Red Red [place] -Slough/Fibrin Yes -Necrosis Amt Medium (34-66%) Small (1-33%) Medium (34-66%) -Necrotic Tissue Type Adherent Slough Adherent Slough Adherent Slough -Structure Exposed N/A N/A -Texture ([place]-wound Skin Appearance) Scarring Assessed Assessed, Scarring -Moisture ([place]-wound Skin Appearance) Maceration Assessed Assessed -Color ([place]-wound Skin Appearance) Hemosiderin Assessed Assessed Staining -Temperature ([place]-wound Skin No Abnormality No Abnormality Appearance) (Pt Warm) (Pt Warm) -Tenderness on Palpation ([place]-wound No Skin Appearance) -Ulcer Cleansing Soap and Water Soap and Water Wound Cleanser -Foul Odor after Cleansing No No No -Anesthetic Used 4% Lidocaine 4% Lidocaine 4% Lidocaine Solution Solution Solution Lower Limb Edema Present Yes Right Calf (cm) 46.5 41.5 40 Right Ankle (cm) 33 31.5 36.8 Left Calf (cm) 41.5 45 40.5 Left Ankle (cm) 31.7 31.5 33.5 WC - Nurse 2 - General Ulcer CM Notes Start: 11/30/23 09:47 Freq: Status: Active Protocol: Activity Type Activity Date Activity User E-sign Co-sign Detail Recorded Client Recorded Date Recorded By Document 11/30/23 10:24 GM Desktop 11/30/23 10:28 GM Document 12/07/23 11:37 GM Desktop 12/07/23 11:50 GM Document 12/14/23 10:50 Desktop 12/14/23 11:21 GM 11/30/23 12/07/23 12/14/23 10:24 11:37 10:50 Wound Center Nurse 2 #18 R Medial ankle -Time 10: 11:37 10:52 -Correct Patient Yes Yes Yes -Correct Side, Site, Position Yes Yes Yes -Correct Procedure Yes Yes Yes -Procedure Performed Yes Yes Yes -Type of Procedure Debridement Debridement Debridement -Clinical Debridement Subcutaneous Subcutaneous Subcutaneous -Tissue Removed Subcutaneous Subcutaneous Subcutaneous -Post Debridement (cm) - Length 3.5 5.0 7.5 -Post Debridement (cm) - Width 5 5.0 5 -Post Debridement (cm) - Depth 0.1 0.1 0.1 -Total Square (Post) (cm) 17.5 25.00 37.5 -Area of Debridement (cm) - Length 3.5 5.0 7.5 -Area of Debridement (cm) - Width 5 5.0 5 -Total Square (Area) (cm) 17.5 25.00 37.5 -Tunneling No No No -Undermining/Tunneling No No No -Circular Undermining No No No -Wound/Ulcer Outcome Not Healed Not Healed Not Healed -Ulcer Cleansing Rinsed/ Rinsed/ Rinsed/ Irrigated with Irrigated with Irrigated with Saline Saline Saline -Foul Odor after Cleansing No No No -Bioengineered Tissue No No No -Bleeding Controlled with Pressure Pressure Pressure -Treatment Response Procedure Procedure Procedure Tolerated Well Tolerated Well Tolerated Well -Debridement - Subq, 1st 20sq cm No Yes No -Debridement, SubQ, ea addt'l 20sq cm 2 or part thereof #16 Right Medial Superior cluster -Time 10: 11:38 10:53 -Correct Patient Yes Yes Yes -Correct Side, Site, Position Yes Yes Yes -Correct Procedure Yes Yes Yes -Procedure Performed Yes Yes Yes -Type of Procedure Debridement Debridement Debridement -Clinical Debridement Subcutaneous Subcutaneous Subcutaneous -Tissue Removed Subcutaneous Subcutaneous Subcutaneous -Post Debridement (cm) - Length 7.5 2.2 2.5 -Post Debridement (cm) - Width 3 2.0 2.5 -Post Debridement (cm) - Depth 0.1 0.1 0.1 -Total Square (Post) (cm) 22.5 4.40 6.25 -Area of Debridement (cm) - Length 7.5 2.2 2.5 -Area of Debridement (cm) - Width 3 2 2.5 -Total Square (Area) (cm) 22.5 4.4 6.25 -Tunneling No No No -Undermining/Tunneling No No No -Circular Undermining No No No -Wound/Ulcer Outcome Not Healed Not Healed Not Healed -Ulcer Cleansing Rinsed/ Rinsed/ Rinsed/ Irrigated with Irrigated with Irrigated with Saline Saline Saline -Foul Odor after Cleansing No No No -Bioengineered Tissue No No -Bleeding Controlled with Pressure Pressure Pressure -Treatment Response Procedure Procedure Procedure Tolerated Well Tolerated Well Tolerated Well -Offloading No -Debridement - Subq, 1st 20sq cm No No No #14- R LAT ANKLE -Time 10:26 11:48 10:53 -Correct Patient Yes Yes Yes -Correct Side, Site, Position Yes Yes Yes -Correct Procedure Yes Yes Yes -Procedure Performed Yes Yes Yes -Type of Procedure Debridement Debridement Debridement -Clinical Debridement Subcutaneous Subcutaneous Subcutaneous -Tissue Removed Subcutaneous Subcutaneous Subcutaneous -Post Debridement (cm) - Length 2.5 13.0 7.5 -Post Debridement (cm) - Width 12.3 3.0 15 -Post Debridement (cm) - Depth 0.1 0.1 0.1 -Total Square (Post) (cm) 30.75 39.00 112.5 -Area of Debridement (cm) - Length 2.5 -Area of Debridement (cm) - Width 12.3 -Total Square (Area) (cm) 30.75 -Tunneling No No No -Undermining/Tunneling No No No -Circular Undermining No No No -Wound/Ulcer Outcome Not Healed Not Healed Not Healed -Ulcer Cleansing Rinsed/ Rinsed/ Rinsed/ Irrigated with Irrigated with Irrigated with Saline Saline Saline -Foul Odor after Cleansing No No No -Bioengineered Tissue No No -Bleeding Controlled with Pressure Pressure Pressure -Treatment Response Procedure Procedure Procedure Tolerated Well Tolerated Well Tolerated Well -Debridement - Subq, 1st 20sq cm Yes No Yes -Debridement, SubQ, ea addt'l 20sq cm 3 7 or part thereof Pain Scale: 0-10 Numeric Is Patient Pain Free? Yes Yes Yes WC - Nurse 3 - General Ulcer D/C NN Start: 11/30/23 09:47 Freq: Status: Active Protocol: Activity Type Activity Date Activity User E-sign Co-sign Detail Recorded Client Recorded Date Recorded By Document 11/30/23 10:36 DL Desktop 11/30/23 10:41 DL Document 12/07/23 12:04 DL Desktop 12/07/23 12:24 DL Document 12/14/23 11:09 RB Desktop 12/14/23 11:12 RB 11/30/23 12/07/23 12/14/23 10:36 12:04 11:09 Wound Care Center Nurse 3 #18 R Medial ankle -Ulcer Cleansing Rinsed/ Rinsed/ soak 10 min Irrigated with Irrigated with with dakins Saline Saline gauze before dressing barnard -Foul Odor after Cleansing No No -Primary Dressing Applied Aquacel Extra Aquacel Extra, Aquacel Extra, Optilok 6.5x10 Optilok 6.5x10 -Primary Dressing Covered/Secured with Dry Gauze & Dry Gauze & Dry Gauze & Roll Gauze, Roll Gauze Roll Gauze, Secured with Secured with Tape Tape -Other Covering ABD -Aquacel Extra 1 1 1 -Optilok 6.5x10 1 1 #16 Right Medial Superior cluster -Ulcer Cleansing Rinsed/ Rinsed/ dakins Irrigated with Irrigated with Saline Saline -Foul Odor after Cleansing No No -Primary Dressing Applied Optilok 8x12 -Other Dressing aquacel ex aquacel ex aquacel extra -Primary Dressing Covered/Secured with Dry Gauze & Dry Gauze & Dry Gauze & Roll Gauze Roll Gauze, Roll Gauze, Secured with Secured with Tape Tape -Other Covering ABD ABD -Optilok 8x12 1 #14- R LAT ANKLE -Ulcer Cleansing Rinsed/ Rinsed/ dakins Irrigated with Irrigated with Saline Saline -Foul Odor after Cleansing No No -Other Dressing aqaucel ex Aqaucel ex aquacel extra -Primary Dressing Covered/Secured with Dry Gauze & Dry Gauze & Roll Gauze, Roll Gauze, Secured with Secured with Tape Tape -Other Covering ABD radha -Multi-Layered Wrap Application Multi-Layer Multi-Layer Multi-Layer Comp - Bilat ($ Comp - Bilat ($ Comp - Bilat ($ ) ) ) Treatment Response Procedure Procedure Procedure Tolerated Well Tolerated Well Tolerated Well Pain Scale: 0-10 Numeric Is Patient Pain Free? Yes Yes Yes WC - Visit Discharge Discharge Condition Stable Stable Stable Ambulatory Status Ambulatory Ambulatory Wheelchair Transportation Ambulance [facility] [place] Medication Reconcilliation completed & No provided to patient/care provider Clinical Summary of Care Provided Yes Facility Type [facility] Facility Orders Sent Yes Yes Additional Wound Wound debrided: Right lateral ankle/foot Laterality: Right Type of Debridement: Excisional debridement and Selective debridement Anesthesia Used: 5% Lidocaine Gel Depth: Down to and including healthy tissue and in the subcutaneous layer Percentage of wound debrided: 100 Instrument Used: 5mm curette Tissue Removed: Slough and devitalized tissue Severity: Fat Layer Exposed Amount of bleeding with debridement: None Bleeding Controlled with: Pressure Patient tolerated procedure: Patient tolerated procedure well Additional Wound Wound debrided: Right medial foot/ankle Type of Debridement: Excisional debridement Anesthesia Used: 5% Lidocaine Gel Depth: Down to and including healthy tissue and in the subcutaneous layer Percentage of wound debrided: 100 Instrument Used: 5mm curette Tissue Removed: Slough and devitalized tissue Severity: Fat Layer Exposed Amount of bleeding with debridement: Mild Bleeding Controlled with: Pressure Patient tolerated procedure: Patient tolerated procedure well Assessment/Plan Assessment/Plan (1) Ulcer of right lower extremity with fat layer exposed: CODE(S): L97.912 - Non-pressure chronic ulcer of unspecified part of right lower leg with fat layer exposed (2) Ulcer of left lower extremity with fat layer exposed: CODE(S): L97.922 - Non-pressure chronic 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 Grossly stable, no new concerns at this time. Prescription for ciprofloxacin and Augmentin sent per culture/sensitivity. 10 minutes Dakins soak change. Continue Aquacel extra, cover with superabsorbent dressing. Continue 3M wraps. Change dressing and wrap on Monday and Monday at the facility. Continue use of lymphedema pump twice daily. Leg elevation and compression also very strongly recommended, he voiced understanding. Continue other chronic wound care. His questions were answered and he was advised to call with any further questions or concerns. Follow-up in 1 week. This note was generated with [employer] software. It may contain incorrect words, spelling, and punctuation that were not noted in checking the note before signing.
[2023-12-21 10:47] VITALS: BP 118/68; PULSE 68; RESP 18; TEMP 36.4
--- NOTE | 2023-12-21 11:48 | PN.PCM_ITS ---
History of Present Illness Date of Service: 12/21/23 Chief Complaint: Right lower extremity ulcers History of Wound: Mr. Boles is an 83-year-old currently residing at [facility] who presents due to nonhealing bilateral lower extremity ulceration. He was seen here a few months ago and discharged after he achieved healing. Recommendation was for continued use of his lymphedema pump however he states that this has not been used consistently. Current ulceration has been present for weeks. No chills, fever or otherwise feeling of unwell. Progress of Wound: No acute concerns at this time. Stable/healthier looking Ulcers. Objective Data Objective Data Vital Signs: Vital Signs Temp Pulse Resp BP Pulse Ox O2 Del Method 97.6 F L 68 18 118/68 97 Room Air 12/21/23 10:47 12/21/23 10:47 12/21/23 10:47 12/21/23 10:47 11/27/23 00:14 12/21/23 10:47 Oxygen Delivery Method Room Air Lab / Micro Data Micro: Microbiology 12/07/23 11:42 Wound - Other Gram Stain - Final 12/07/23 11:42 Wound - Other Wound Culture - Final Proteus mirabilis Enterococcus faecalis Staphylococcus aureus Pseudomonas aeruginosa 12/07/23 11:42 Wound - Other Anaerobic Culture - Final Bacteroides fragilis Charges/Coding Procedures Integumentary [id number]: [id number] Jaye subq tissue 20 sq cm/< Add On Codes: 24543 Jaye subq tissue add-on (Additional square centimeter debrided, please refer to clinical note.) Physical Exam Const alert, oriented x3 and no apparent distress General Appearance: cooperative, comfortable and well kempt HEENT normocephalic and head/scalp atraumatic Eyes EOMs intact bilaterally General Eye: normal appearance of both eyes Neck full ROM General: normal visual inspection Resp normal respiratory effort Effort and Inspection: able to speak in complete sentences Extremity General Extremity: edema Skin Wounds: wounds noted Neuro oriented x3, moves all extremities and no focal motor deficits Psych mental status grossly normal, thought process normal, cooperative and affect normal Debridement Note Debridement Note Wound debrided: Right sinclair ( Superior ) Laterality: Right Type of Debridement: Excisional debridement Anesthesia Used: 5% Lidocaine Gel Depth: Down to and including healthy tissue and in the subcutaneous layer Percentage of wound debrided: 100 Instrument Used: 5mm curette Tissue Removed: Slough and devitalized tissue Severity: Fat Layer Exposed Amount of bleeding with debridement: Mild Bleeding Controlled with: Compression and gauze Patient tolerated procedure: Patient tolerated procedure well Post-Debridement Measurements and Additional Note: Post-Debridement Measurements/Treatment WC - Nurse 1 - General Ulcer Assessment Start: 11/30/23 09:47 Freq: Status: Active Protocol: [email or web address] Activity Type Activity Date Activity User E-sign Co-sign Detail Recorded Client Recorded Date Recorded By Document 11/30/23 09:56 KW Desktop 11/30/23 10:07 KW Document 12/07/23 10:44 KW Desktop 12/07/23 10:49 KW Document 12/14/23 10:42 RB Desktop 12/14/23 10:48 RB Document 12/21/23 10:47 KW Desktop 12/21/23 11:04 KW 11/30/23 12/07/23 12/14/23 09:56 10:44 10:42 - Today's Visit Information Type of service Follow-up Visit Follow-up Visit Follow-up Visit (Physician/PSYCHOLOGICAL OPERATIONS SPECIALIST (Physician/PSYCHOLOGICAL OPERATIONS SPECIALIST (Physician/PSYCHOLOGICAL OPERATIONS SPECIALIST ) ) ) Arrival Mode Wheelchair Wheelchair Wheelchair Transfer Assistance Manual Manual Transfer Assist (Other) x2 Patient Identification Verified (Name & Yes Yes Yes ) Patient Requires Transmission-Based No No Precautions Vital Signs Temperature (97.8 F-99.1 F) 97 F L 97.2 F L 96.9 F L Temperature Source Temporal Temporal Temporal Pulse Rate (60-100) 71 66 71 Pulse Location Monitor Monitor Monitor Respiratory Rate (12-18) 20 H 18 18 Respiratory rate source Observation Observation Observation Oxygen Delivery Method Room Air Blood Pressure (90/60-120/80) 132/71 H 103/88 H 113/65 Blood Pressure Mean (mm Hg) 91 93 81 Source Monitor Monitor Monitor Position Sitting Semi-Fowlers Blood Pressure Location Left Arm Left Arm History Since Last Visit- (Skip if this is Patient's initial visit) Have you changed medications since your No No No last visit? Any new allergies or adverse reactions No No No Had a fall/change in ADL's that may No No No increase risk of falls Signs or symptoms of abuse and/or No No No neglect since last visit Have you been in the hospital since your No No No last visit? Has dressing in place as prescribed Yes Yes Yes Has compression in place as prescribed Yes Yes Yes Has offloadiing in place as prescribed N/A N/A No Experienced any changes in pain level or No No No management Left Footwear Custom Shoe Right Footwear Custom Shoe Pain Scale: 0-10 Numeric Is Patient Pain Free? Yes Yes Yes 12/21/23 10:47 - Today's Visit Information Type of service Follow-up Visit (Physician/PSYCHOLOGICAL OPERATIONS SPECIALIST ) Arrival Mode Wheelchair Transfer Assistance Transfer Assist (Other) Patient Identification Verified (Name & Yes ) Patient Requires Transmission-Based Precautions Vital Signs Temperature (97.8 F-99.1 F) 97.6 F L Temperature Source Temporal Pulse Rate (60-100) 68 Pulse Location Monitor Respiratory Rate (12-18) 18 Respiratory rate source Observation Oxygen Delivery Method Room Air Blood Pressure (90/60-120/80) 118/68 Blood Pressure Mean (mm Hg) 84 Source Monitor Position Sitting Blood Pressure Location Left Forearm History Since Last Visit- (Skip if this is Patient's initial visit) Have you changed medications since your No last visit? Any new allergies or adverse reactions No Had a fall/change in ADL's that may No increase risk of falls Signs or symptoms of abuse and/or No neglect since last visit Have you been in the hospital since your No last visit? Has dressing in place as prescribed Yes Has compression in place as prescribed Yes Has offloadiing in place as prescribed N/A Experienced any changes in pain level or No management Left Footwear Custom Shoe Right Footwear Custom Shoe Pain Scale: 0-10 Numeric Is Patient Pain Free? Yes - Nurse 1 - General Ulcer Measurement Start: 11/30/23 09:47 Freq: Status: Active Protocol: Activity Type Activity Date Activity User E-sign Co-sign Detail Recorded Client Recorded Date Recorded By Document 11/30/23 09:56 KW Desktop 11/30/23 10:07 KW Document 12/07/23 10:44 KW Desktop 12/07/23 10:49 KW Document 12/14/23 10:42 RB Desktop 12/14/23 10:48 RB Document 12/21/23 10:47 KW Desktop 12/21/23 11:04 KW 11/30/23 12/07/23 12/14/23 09:56 10:44 10:42 Wound Center Nurse 1 #3 R Lat foot -Current Size (cm) - Length 0.1 -Current Size (cm) - Width 0.1 -Current Size (cm) - Depth 0.1 -Total Square Cm 0.01 -Exudate Amt Medium -Exudate Type Serosanguineous -Wound Margin Distinct, Outline Attached -Granulation Amt Medium (34-66%) -Granulation Quality [place] -Necrosis Amt Medium (34-66%) -Necrotic Tissue Type Adherent Slough -Structure Exposed N/A -Texture ([place]-wound Skin Appearance) Scarring -Moisture ([place]-wound Skin Appearance) Maceration -Color ([place]-wound Skin Appearance) Hemosiderin Staining -Temperature ([place]-wound Skin No Abnormality Appearance) (Pt Warm) -Tenderness on Palpation ([place]-wound No Skin Appearance) -Ulcer Cleansing Soap and Water -Foul Odor after Cleansing No -Anesthetic Used 4% Lidocaine Solution #18 R Medial ankle -Combined with other wound No -Current Size (cm) - Length 0.1 0.1 -Current Size (cm) - Width 0.1 0.1 -Current Size (cm) - Depth 0.1 0.1 -Total Square Cm 0.01 0.01 -Tunneling No -Undermining/Tunneling No -Circular Undermining No -Exudate Amt Large Large Large -Exudate Type Serosanguineous Yellow/Green Serosanguineous -Wound Margin Distinct, Distinct, Outline Outline Attached Attached -Granulation Amt Medium (34-66%) Small (1-33%) Medium (34-66%) -Granulation Quality [place] -Slough/Fibrin Yes -Necrosis Amt Medium (34-66%) Large (67-100%) Medium (34-66%) -Necrotic Tissue Type Adherent Slough Adherent Slough Adherent Slough -Structure Exposed None/Limited to N/A Skin Breakdown -Texture ([place]-wound Skin Appearance) Scarring Assessed Assessed -Moisture ([place]-wound Skin Appearance) Maceration Assessed Weeping -Color ([place]-wound Skin Appearance) Hemosiderin Assessed Assessed Staining -Temperature ([place]-wound Skin No Abnormality No Abnormality No Abnormality Appearance) (Pt Warm) (Pt Warm) (Pt Warm) -Tenderness on Palpation ([place]-wound No No Skin Appearance) -Ulcer Cleansing Soap and Water Soap and Water Wound Cleanser -Foul Odor after Cleansing No Yes No -Anesthetic Used 4% Lidocaine 4% Lidocaine 4% Lidocaine Solution Solution Solution #16 Right Medial Superior cluster -Combined with other wound No -Current Size (cm) - Length 0.1 0.1 -Current Size (cm) - Width 0.1 0.1 -Current Size (cm) - Depth 0.1 0.1 -Total Square Cm 0.01 0.01 -Tunneling No -Undermining/Tunneling No -Circular Undermining No -Exudate Amt Small Large Large -Exudate Type Serosanguineous Yellow/Green Serosanguineous -Wound Margin Indistinct, Non Distinct, -Visible Outline Attached -Granulation Amt Small (1-33%) Medium (34-66%) -Granulation Quality [place] -Slough/Fibrin Yes -Necrosis Amt Small (1-33%) Large (67-100%) Medium (34-66%) -Necrotic Tissue Type Adherent Slough Adherent Slough Adherent Slough -Structure Exposed N/A N/A -Texture ([place]-wound Skin Appearance) Scarring Assessed Assessed -Moisture ([place]-wound Skin Appearance) No Abnormality, Assessed Assessed, Dry/Scaly Weeping -Color ([place]-wound Skin Appearance) Hemosiderin Assessed Assessed Staining -Temperature ([place]-wound Skin No Abnormality No Abnormality Appearance) (Pt Warm) (Pt Warm) -Tenderness on Palpation ([place]-wound No No Skin Appearance) -Ulcer Cleansing Soap and Water Soap and Water Wound Cleanser -Foul Odor after Cleansing No Yes No -Anesthetic Used 4% Lidocaine 4% Lidocaine 4% Lidocaine Solution Solution Solution #14- R LAT ANKLE -Combined with other wound No -Current Size (cm) - Length 0.1 0.1 -Current Size (cm) - Width 0.1 0.1 -Current Size (cm) - Depth 0.1 0.1 -Total Square Cm 0.01 0.01 -Tunneling No -Undermining/Tunneling No -Circular Undermining No -Exudate Amt Medium Medium -Exudate Type Serosanguineous Serosanguineous -Wound Margin Distinct, Distinct, Outline Outline Attached Attached -Granulation Amt Medium (34-66%) Medium (34-66%) Medium (34-66%) -Granulation Quality [place] -Slough/Fibrin Yes -Necrosis Amt Medium (34-66%) Small (1-33%) Medium (34-66%) -Necrotic Tissue Type Adherent Slough Adherent Slough Adherent Slough -Structure Exposed N/A N/A -Texture ([place]-wound Skin Appearance) Scarring Assessed Assessed, Scarring -Moisture ([place]-wound Skin Appearance) Maceration Assessed Assessed -Color ([place]-wound Skin Appearance) Hemosiderin Assessed Assessed Staining -Temperature ([place]-wound Skin No Abnormality No Abnormality Appearance) (Pt Warm) (Pt Warm) -Tenderness on Palpation ([place]-wound No Skin Appearance) -Ulcer Cleansing Soap and Water Soap and Water Wound Cleanser -Foul Odor after Cleansing No No No -Anesthetic Used 4% Lidocaine 4% Lidocaine 4% Lidocaine Solution Solution Solution Lower Limb Edema Present Yes Right Calf (cm) 46.5 41.5 40 Right Ankle (cm) 33 31.5 36.8 Left Calf (cm) 41.5 45 40.5 Left Ankle (cm) 31.7 31.5 33.5 12/21/23 10:47 Wound Center Nurse 1 #3 R Lat foot -Current Size (cm) - Length -Current Size (cm) - Width -Current Size (cm) - Depth -Total Square Cm -Exudate Amt -Exudate Type -Wound Margin -Granulation Amt -Granulation Quality -Necrosis Amt -Necrotic Tissue Type -Structure Exposed -Texture ([place]-wound Skin Appearance) -Moisture ([place]-wound Skin Appearance) -Color ([place]-wound Skin Appearance) -Temperature ([place]-wound Skin Appearance) -Tenderness on Palpation ([place]-wound Skin Appearance) -Ulcer Cleansing -Foul Odor after Cleansing -Anesthetic Used #18 R Medial ankle -Combined with other wound -Current Size (cm) - Length -Current Size (cm) - Width -Current Size (cm) - Depth -Total Square Cm -Tunneling -Undermining/Tunneling -Circular Undermining -Exudate Amt -Exudate Type -Wound Margin Distinct, Outline Attached -Granulation Amt -Granulation Quality Pale -Slough/Fibrin -Necrosis Amt Large (67-100%) -Necrotic Tissue Type Adherent Slough -Structure Exposed -Texture ([place]-wound Skin Appearance) Assessed -Moisture ([place]-wound Skin Appearance) Assessed -Color ([place]-wound Skin Appearance) Assessed -Temperature ([place]-wound Skin No Abnormality Appearance) (Pt Warm) -Tenderness on Palpation ([place]-wound No Skin Appearance) -Ulcer Cleansing Soap and Water -Foul Odor after Cleansing -Anesthetic Used 4% Lidocaine Solution #16 Right Medial Superior cluster -Combined with other wound -Current Size (cm) - Length -Current Size (cm) - Width -Current Size (cm) - Depth -Total Square Cm -Tunneling -Undermining/Tunneling -Circular Undermining -Exudate Amt -Exudate Type -Wound Margin -Granulation Amt -Granulation Quality Pale -Slough/Fibrin -Necrosis Amt Large (67-100%) -Necrotic Tissue Type Adherent Slough -Structure Exposed -Texture ([place]-wound Skin Appearance) Assessed -Moisture ([place]-wound Skin Appearance) Assessed -Color ([place]-wound Skin Appearance) Assessed -Temperature ([place]-wound Skin No Abnormality Appearance) (Pt Warm) -Tenderness on Palpation ([place]-wound No Skin Appearance) -Ulcer Cleansing Soap and Water -Foul Odor after Cleansing No -Anesthetic Used 4% Lidocaine Solution #14- R LAT ANKLE -Combined with other wound -Current Size (cm) - Length -Current Size (cm) - Width -Current Size (cm) - Depth -Total Square Cm -Tunneling -Undermining/Tunneling -Circular Undermining -Exudate Amt -Exudate Type -Wound Margin -Granulation Amt -Granulation Quality Pale -Slough/Fibrin -Necrosis Amt Large (67-100%) -Necrotic Tissue Type Adherent Slough -Structure Exposed -Texture ([place]-wound Skin Appearance) Assessed -Moisture ([place]-wound Skin Appearance) Assessed -Color ([place]-wound Skin Appearance) Assessed -Temperature ([place]-wound Skin No Abnormality Appearance) (Pt Warm) -Tenderness on Palpation ([place]-wound No Skin Appearance) -Ulcer Cleansing Soap and Water -Foul Odor after Cleansing No -Anesthetic Used 4% Lidocaine Solution Lower Limb Edema Present Right Calf (cm) Right Ankle (cm) Left Calf (cm) Left Ankle (cm) WC - Nurse 2 - General Ulcer CM Notes Start: 11/30/23 09:47 Freq: Status: Active Protocol: Activity Type Activity Date Activity User E-sign Co-sign Detail Recorded Client Recorded Date Recorded By Document 11/30/23 10:24 GM Desktop 11/30/23 10:28 GM Document 12/07/23 11:37 GM Desktop 12/07/23 11:50 GM Document 12/14/23 10:50 Desktop 12/14/23 11:21 Document 12/21/23 11:10 Desktop 12/21/23 11:23 11/30/23 12/07/23 12/14/23 10:24 11:37 10:50 Wound Center Nurse 2 #18 R Medial ankle -Time 10:24 11:37 10:52 -Correct Patient Yes Yes Yes -Correct Side, Site, Position Yes Yes Yes -Correct Procedure Yes Yes Yes -Procedure Performed Yes Yes Yes -Type of Procedure Debridement Debridement Debridement -Clinical Debridement Subcutaneous Subcutaneous Subcutaneous -Tissue Removed Subcutaneous Subcutaneous Subcutaneous -Post Debridement (cm) - Length 3.5 5.0 7.5 -Post Debridement (cm) - Width 5 5.0 5 -Post Debridement (cm) - Depth 0.1 0.1 0.1 -Total Square (Post) (cm) 17.5 25.00 37.5 -Area of Debridement (cm) - Length 3.5 5.0 7.5 -Area of Debridement (cm) - Width 5 5.0 5 -Total Square (Area) (cm) 17.5 25.00 37.5 -Tunneling No No No -Undermining/Tunneling No No No -Circular Undermining No No No -Wound/Ulcer Outcome Not Healed Not Healed Not Healed -Ulcer Cleansing Rinsed/ Rinsed/ Rinsed/ Irrigated with Irrigated with Irrigated with Saline Saline Saline -Foul Odor after Cleansing No No No -Bioengineered Tissue No No No -Bleeding Controlled with Pressure Pressure Pressure -Treatment Response Procedure Procedure Procedure Tolerated Well Tolerated Well Tolerated Well -Debridement - Subq, 1st 20sq cm No Yes No -Debridement, SubQ, ea addt'l 20sq cm 2 or part thereof #16 Right Medial Superior cluster -Time 10:25 11:38 10:53 -Correct Patient Yes Yes Yes -Correct Side, Site, Position Yes Yes Yes -Correct Procedure Yes Yes Yes -Procedure Performed Yes Yes Yes -Type of Procedure Debridement Debridement Debridement -Clinical Debridement Subcutaneous Subcutaneous Subcutaneous -Tissue Removed Subcutaneous Subcutaneous Subcutaneous -Post Debridement (cm) - Length 7.5 2.2 2.5 -Post Debridement (cm) - Width 3 2.0 2.5 -Post Debridement (cm) - Depth 0.1 0.1 0.1 -Total Square (Post) (cm) 22.5 4.40 6.25 -Area of Debridement (cm) - Length 7.5 2.2 2.5 -Area of Debridement (cm) - Width 3 2 2.5 -Total Square (Area) (cm) 22.5 4.4 6.25 -Tunneling No No No -Undermining/Tunneling No No No -Circular Undermining No No No -Wound/Ulcer Outcome Not Healed Not Healed Not Healed -Ulcer Cleansing Rinsed/ Rinsed/ Rinsed/ Irrigated with Irrigated with Irrigated with Saline Saline Saline -Foul Odor after Cleansing No No No -Bioengineered Tissue No No -Bleeding Controlled with Pressure Pressure Pressure -Treatment Response Procedure Procedure Procedure Tolerated Well Tolerated Well Tolerated Well -Offloading No -Debridement - Subq, 1st 20sq cm No No No #14- R LAT ANKLE -Time 10:26 11:48 10:53 -Correct Patient Yes Yes Yes -Correct Side, Site, Position Yes Yes Yes -Correct Procedure Yes Yes Yes -Procedure Performed Yes Yes Yes -Type of Procedure Debridement Debridement Debridement -Clinical Debridement Subcutaneous Subcutaneous Subcutaneous -Tissue Removed Subcutaneous Subcutaneous Subcutaneous -Post Debridement (cm) - Length 2.5 13.0 7.5 -Post Debridement (cm) - Width 12.3 3.0 15 -Post Debridement (cm) - Depth 0.1 0.1 0.1 -Total Square (Post) (cm) 30.75 39.00 112.5 -Area of Debridement (cm) - Length 2.5 -Area of Debridement (cm) - Width 12.3 -Total Square (Area) (cm) 30.75 -Tunneling No No No -Undermining/Tunneling No No No -Circular Undermining No No No -Wound/Ulcer Outcome Not Healed Not Healed Not Healed -Ulcer Cleansing Rinsed/ Rinsed/ Rinsed/ Irrigated with Irrigated with Irrigated with Saline Saline Saline -Foul Odor after Cleansing No No No -Bioengineered Tissue No No -Bleeding Controlled with Pressure Pressure Pressure -Treatment Response Procedure Procedure Procedure Tolerated Well Tolerated Well Tolerated Well -Debridement - Open, 1st 20sq cm -Debridement - Subq, 1st 20sq cm Yes No Yes -Debridement, SubQ, ea addt'l 20sq cm 3 7 or part thereof Pain Scale: 0-10 Numeric Is Patient Pain Free? Yes Yes Yes 12/21/23 11:10 Wound Center Nurse 2 #18 R Medial ankle -Time 11:17 -Correct Patient Yes -Correct Side, Site, Position Yes -Correct Procedure Yes -Procedure Performed Yes -Type of Procedure Debridement -Clinical Debridement Subcutaneous -Tissue Removed Subcutaneous -Post Debridement (cm) - Length 7.0 -Post Debridement (cm) - Width 6.5 -Post Debridement (cm) - Depth 0.1 -Total Square (Post) (cm) 45.50 -Area of Debridement (cm) - Length 7.0 -Area of Debridement (cm) - Width 6.5 -Total Square (Area) (cm) 45.50 -Tunneling No -Undermining/Tunneling No -Circular Undermining No -Wound/Ulcer Outcome Not Healed -Ulcer Cleansing Rinsed/ Irrigated with Saline -Foul Odor after Cleansing No -Bioengineered Tissue No -Bleeding Controlled with -Treatment Response -Debridement - Subq, 1st 20sq cm Yes -Debridement, SubQ, ea addt'l 20sq cm 2 or part thereof #16 Right Medial Superior cluster -Time 11:20 -Correct Patient Yes -Correct Side, Site, Position Yes -Correct Procedure Yes -Procedure Performed Yes -Type of Procedure Debridement -Clinical Debridement Subcutaneous -Tissue Removed Subcutaneous -Post Debridement (cm) - Length 3.0 -Post Debridement (cm) - Width 2.0 -Post Debridement (cm) - Depth 0.2 -Total Square (Post) (cm) 6.00 -Area of Debridement (cm) - Length 3.0 -Area of Debridement (cm) - Width 2.0 -Total Square (Area) (cm) 6.00 -Tunneling No -Undermining/Tunneling No -Circular Undermining No -Wound/Ulcer Outcome Not Healed -Ulcer Cleansing Rinsed/ Irrigated with Saline -Foul Odor after Cleansing No -Bioengineered Tissue -Bleeding Controlled with Pressure -Treatment Response Procedure Tolerated Well -Offloading -Debridement - Subq, 1st 20sq cm Yes #14- R LAT ANKLE -Time 11:20 -Correct Patient Yes -Correct Side, Site, Position Yes -Correct Procedure Yes -Procedure Performed Yes -Type of Procedure Debridement -Clinical Debridement Epidermis / Dermis -Tissue Removed Epidermis, Dermis -Post Debridement (cm) - Length 7.0 -Post Debridement (cm) - Width 12 -Post Debridement (cm) - Depth 0.1 -Total Square (Post) (cm) 84.0 -Area of Debridement (cm) - Length 7.0 -Area of Debridement (cm) - Width 12 -Total Square (Area) (cm) 84.0 -Tunneling No -Undermining/Tunneling No -Circular Undermining No -Wound/Ulcer Outcome Not Healed -Ulcer Cleansing Rinsed/ Irrigated with Saline -Foul Odor after Cleansing No -Bioengineered Tissue -Bleeding Controlled with Pressure -Treatment Response Procedure Tolerated Well -Debridement - Open, 1st 20sq cm No -Debridement - Subq, 1st 20sq cm -Debridement, SubQ, ea addt'l 20sq cm or part thereof Pain Scale: 0-10 Numeric Is Patient Pain Free? Yes WC - Nurse 3 - General Ulcer D/C NN Start: 11/30/23 09:47 Freq: Status: Active Protocol: Activity Type Activity Date Activity User E-sign Co-sign Detail Recorded Client Recorded Date Recorded By Document 11/30/23 10:36 DL Desktop 11/30/23 10:41 DL Document 12/07/23 12:04 DL Desktop 12/07/23 12:24 DL Document 12/14/23 11:09 RB Desktop 12/14/23 11:12 RB Document 12/21/23 11:28 GM Desktop 12/21/23 11:36 GM 11/30/23 12/07/23 12/14/23 10:36 12:04 11:09 Wound Care Center Nurse 3 #18 R Medial ankle -Ulcer Cleansing Rinsed/ Rinsed/ soak 10 min Irrigated with Irrigated with with dakins Saline Saline gauze before dressing barnard -Foul Odor after Cleansing No No -Primary Dressing Applied Aquacel Extra Aquacel Extra, Aquacel Extra, Optilok 6.5x10 Optilok 6.5x10 -Primary Dressing Covered/Secured with Dry Gauze & Dry Gauze & Dry Gauze & Roll Gauze, Roll Gauze Roll Gauze, Secured with Secured with Tape Tape -Other Covering ABD -Aquacel Extra 1 1 1 -Optilok 6.5x10 1 1 #16 Right Medial Superior cluster -Ulcer Cleansing Rinsed/ Rinsed/ dakins Irrigated with Irrigated with Saline Saline -Foul Odor after Cleansing No No -Primary Dressing Applied Optilok 8x12 -Other Dressing aquacel ex aquacel ex aquacel extra -Primary Dressing Covered/Secured with Dry Gauze & Dry Gauze & Dry Gauze & Roll Gauze Roll Gauze, Roll Gauze, Secured with Secured with Tape Tape -Other Covering ABD ABD -Optilok 8x12 1 #14- R LAT ANKLE -Ulcer Cleansing Rinsed/ Rinsed/ dakins Irrigated with Irrigated with Saline Saline -Foul Odor after Cleansing No No -Other Dressing aqaucel ex Aqaucel ex aquacel extra -Primary Dressing Covered/Secured with Dry Gauze & Dry Gauze & Roll Gauze, Roll Gauze, Secured with Secured with Tape Tape -Other Covering ABD radha -Lotion applied to leg before compression wrap -Multi-Layered Wrap Application Multi-Layer Multi-Layer Multi-Layer Comp - Bilat ($ Comp - Bilat ($ Comp - Bilat ($ ) ) ) Treatment Response Procedure Procedure Procedure Tolerated Well Tolerated Well Tolerated Well Pain Scale: 0-10 Numeric Is Patient Pain Free? Yes Yes Yes WC - Visit Discharge Discharge Condition Stable Stable Stable Ambulatory Status Ambulatory Ambulatory Wheelchair Transportation Ambulance [facility] [place] Medication Reconcilliation completed & No provided to patient/care provider Clinical Summary of Care Provided Yes Facility Type Care [facility] Facility Orders Sent Yes Yes 12/21/23 11:28 Wound Care Center Nurse 3 #18 R Medial ankle -Ulcer Cleansing Not Cleansed -Foul Odor after Cleansing No -Primary Dressing Applied -Primary Dressing Covered/Secured with Dry Gauze,Dry Gauze & Roll Gauze,Secured with Tape -Other Covering -Aquacel Extra -Optilok 6.5x10 #16 Right Medial Superior cluster -Ulcer Cleansing Not Cleansed -Foul Odor after Cleansing No -Primary Dressing Applied -Other Dressing -Primary Dressing Covered/Secured with Dry Gauze, Secured with Tape -Other Covering -Optilok 8x12 #14- R LAT ANKLE -Ulcer Cleansing -Foul Odor after Cleansing -Other Dressing -Primary Dressing Covered/Secured with Dry Gauze,Dry Gauze & Roll Gauze -Other Covering radha -Lotion applied to leg before No compression wrap -Multi-Layered Wrap Application Multi-Layer Comp - Bilat ($ ) Treatment Response Pain Scale: 0-10 Numeric Is Patient Pain Free? Yes WC - Visit Discharge Discharge Condition Stable Ambulatory Status Ambulatory, Walker, Wheelchair Transportation Private Auto Medication Reconcilliation completed & provided to patient/care provider Clinical Summary of Care Provided Yes Facility Type Orders Sent Additional Wound Wound debrided: Right lateral ankle/foot Laterality: Right Type of Debridement: Selective debridement Anesthesia Used: 5% Lidocaine Gel Depth: Down to and including healthy tissue and in the subcutaneous layer Percentage of wound debrided: 100 Instrument Used: 5mm curette Tissue Removed: Slough and devitalized tissue Severity: Fat Layer Exposed Amount of bleeding with debridement: None Bleeding Controlled with: Pressure Patient tolerated procedure: Patient tolerated procedure well Additional Wound Wound debrided: Right medial foot/ankle Type of Debridement: Excisional debridement Anesthesia Used: 5% Lidocaine Gel Depth: Down to and including healthy tissue and in the subcutaneous layer Percentage of wound debrided: 100 Instrument Used: 5mm curette Tissue Removed: Slough and devitalized tissue Severity: Fat Layer Exposed Amount of bleeding with debridement: Mild Bleeding Controlled with: Pressure Patient tolerated procedure: Patient tolerated procedure well Assessment/Plan Assessment/Plan (1) Ulcer of right lower extremity with fat layer exposed: CODE(S): L97.912 - Non-pressure chronic ulcer of unspecified part of right lower leg with fat layer exposed (2) Ulcer of left lower extremity with fat layer exposed: CODE(S): L97.922 - Non-pressure chronic 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 No significant change in circumference however, ulcers appear healthier. Right lateral foot more superficial. Continue 10 minutes Dakins soak. Continue Aquacel extra, cover with superabsorbent dressing. Continue 3M wraps. Change dressing and wrap on Monday and Monday at the facility. Continue use of lymphedema pump twice daily. Leg elevation and compression also very strongly recommended, he voiced understanding. Continue other chronic wound care. Labs reviewed, mildly low prealbumin, increase protein intake and recommend daily protein supplements (Ryland/Premier) his questions were answered and he was advised to call with any further questions or concerns. Follow-up in 1 week. This note was generated with Dragon dictation software. It may contain incorrect words, spelling, and punctuation that were not noted in checking the note before signing.
== END 2023-12-26 23:59 | disposition home or self-care (01) ==
LOC: WC 10:30
PROVIDERS: PCP Family Medicine; Referring Provider Internal Medicine; Visit Provider Internal Medicine
DX: I87.2 Venous insufficiency (chronic) (peripheral) (principal); L97.812 Non-pressure chronic ulcer of other part of right lower leg with fat layer exposed; L97.312 Non-pressure chronic ulcer of right ankle with fat layer exposed; I89.0 Lymphedema, not elsewhere classified
CPT/HCPCS: 11042; 11045; 29581; 87070; 87075; 87077; 87186; 87205

== ENCOUNTER 2023-12-30 14:21 | Emergency (ER) | payer MEDICARE, MEDICAID, SELFPAY ==
[2023-12-30 14:21] VITALS: BP 126/65; PULSE 58; RESP 16; TEMP 36.6; O2SAT 99
[2023-12-30 14:59] VITALS: BMI 26.9
--- NOTE | 2023-12-30 15:15 | EDS_ITS ---
HPI HPI - GI History of Present Illness Chief Complaint: Constipation Detail of Chief Complaint: Last normal menstrual period 1 week ago Informant: patient and SNF Abdominal Pain/Flank Pain Onset: Weeks Context: Gradual Onset Timing: Continuous Quality: - (Rectal discomfort) Current Severity: Mild Maximum Severity: Mild Worsened by: Nothing Relieved by: Nothing Nausea/Vomiting/Emesis GI Symptom: Negative for Nausea or Vomiting Diarrhea/Melena/Hematochezia GI Symptom: Negative for Diarrhea, Melena or Hematochezia Associated Symptoms Associated Symptoms: Negative for Dysuria, Frequency, Hematuria or Urgency Narrative Narrative: Patient is an 83-year-old male. He presents because of not having normal bowel movement for 1 week. He was given prune juice and other concoctions with no results. Nurse to inform if I went and he had 2 small hole balls of stool. He denies abdominal pain. He denies nausea or vomiting. He denies history of bowel obstruction. He does not feel bloated or distended. 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 Constipation History of non-ST elevation myocardial infarction (NSTEMI) (11/12/18) HTN (hypertension) Hyperlipidemia Lymphedema Lymphedema Osteoarthritis of lumbar spine Physical debility PSA elevation Renal cyst Ulcer of left lower extremity with fat layer exposed Ulcer of right foot with fat layer exposed Ulcer of right lower extremity with fat layer exposed Venous insufficiency Venous insufficiency of both lower extremities Home Medications aspirin 81 mg tablet,delayed release 81 mg PO DAILY@0800 11/13/18 [Rx Last Taken 02/11/23] potassium chloride 20 mEq tablet,extended release(part/cryst) See Rx Instructions .Route .COMPLEX health maintenance 05/04/21 [History Last Taken 02/11/23] atorvastatin 40 mg tablet 40 mg PO QHS 08/07/21 [History Last Taken 02/11/23] clopidogrel 75 mg tablet (Plavix) 75 mg PO QHS HEART DISEASE 08/07/21 [History Last Taken 02/11/23] bisacodyl 10 mg rectal suppository 10 mg MS DAILY PRN Constipation 11/07/21 [History Last Taken Unknown] guaifenesin 600 mg tablet, extended release 12 hr (Mucinex) 600 mg PO Q12H PRN Cough 01/21/23 [History Last Taken Unknown] acetaminophen 325 mg tablet 650 mg (2 x 325 mg) PO Q6H PRN PRN Pain 1-10 Or Fever>100.7 #0 tabs 01/25/23 [Rx Last Taken Unknown] furosemide 40 mg tablet 40 mg PO DAILY #0 tabs 01/25/23 [Rx Last Taken Unknown] sennosides 8.6 mg-docusate sodium 50 mg tablet (Stool Softener-Stimulant Laxati ve) 2 tab PO BID #0 tabs 01/25/23 [Rx Last Taken 02/11/23] carbidopa 25 mg-levodopa 100 mg tablet 1 tab PO TID P[place]INSONS 02/12/23 [History Last Taken 02/11/23] polyethylene glycol 3350 17 gram oral powder packet 17 g PO DAILY CONSTIPATION 02/12/23 [History Last Taken 02/11/23] magnesium hydroxide 2,400 mg/10 mL oral suspension (Milk Of Magnesia Concentrated) 10 ml PO BID CONSTIPATION 06/20/23 [History Last Taken Unknown] magnesium hydroxide 400 mg/5 mL oral suspension (Dulcolax (magnesium hydroxide)) 5 ml PO DAILY PRN constipation 06/20/23 [History Last Taken Unknown] arginine 7 gram-glutam 7 gram-CaHMB 1.5 [id number]-min oral pwd pkt (Ryland (with collagen)) 1 packet PO BIDCM #0 ea 06/27/23 [Rx Last Taken Unknown] pantoprazole 40 mg tablet,delayed release 40 mg PO BID #0 tabs 06/27/23 [Rx Last Taken Unknown] peg [id number] 1 %-0.2 %-0.2 % eye drops (Artificial Tears ([id number])) 1 drp LEFT EYE Q1H PRN PRN DRY EYES #0 mL 06/27/23 [Rx Last Taken Unknown] amoxicillin 875 mg-potassium clavulanate 125 mg tablet 1 tab PO BID #20 tabs 12/15/23 [Rx Last Taken Unknown] ciprofloxacin HCl 500 mg tablet 500 mg PO BID #14 tabs 12/15/23 [Rx Last Taken Unknown] mag citrate-potassium citrate 10 oz PO .once #10 oz 12/30/23 [Rx Last Taken Unknown] Allergy/AdvReac Type Severity Reaction Status Date / Time raspberry Allergy Severe Vomiting Verified 12/30/23 14:23 lemon Allergy Intermediate blisters Verified 12/30/23 14:23 on hands napaimute Allergy Intermediate blisters Verified 12/30/23 14:23 on hands strawberry Allergy Intermediate blisters Verified 12/30/23 14:23 on hands Family History Other Diabetes Surgical History Stented coronary artery (11/12/18) Social History (Updated 12/30/23 @ 15:[address] Saurabh Matute MD) housing: prison Smoking Status: Former smoker EXAM Physical Exam Const Vital Signs: 12/30/23 14:21 Temperature 97.8 F Temperature Source Temporal Pulse Rate 58 L Respiratory Rate 16 Blood Pressure 126/65 H Blood Pressure Mean 85 Pulse Ox 99 Oxygen Delivery Method Room Air Positive well nourished and well developed General Appearance ED: well developed and NAD HEENT Reports moist mucous membranes normocephalic and atraumatic Eyes PERRL and EOMs intact bilaterally Neck no lymphadenopathy, supple and no JVD Resp normal respiratory effort and clear to auscultation bilaterally Cardio regular rate, regular rhythm, S1 normal heart sound, S2 normal heart sound and no murmurs GI non-tender, non-distended and no masses GI Narrative: Patient has evidence of prior hemorrhoids. There is no fissures or fistulas noted. Patient has a large soft bowel stool in his rectum. Stool is brown. There is no blood noted. Back/Spine no CVA tenderness Extremity General Extremety ED: Yes edema General Extremity: edema Neuro CN's II-XII intact bilaterally and moves all extremities Sensorium / Orientation: alert Psych mental status grossly normal and thought process normal Skin no wounds MDM MDM MDM Narrative Medical decision making narrative: Patient with obstipation and fecal impaction. Patient was partially disimpacted. Plan is mag citrate 10 ounces followed 4 hours later with MiraLAX and MiraLAX every 1-2 hours until he begins to have results. There is no need for laboratory testing. History & Record Review Additional record(s) reviewed:: Prior ED visit and Prior labs Discharge Plan Triage Chief Complaint: Constipation ED Provider: Saurabh Matute Dx/Rx/DC Orders Clinical Impression: Acute constipation, Lymphedema, Borderline type 2 diabetes mellitus, Atherosclerotic peripheral vascular disease with ulceration, Atherosclerotic heart disease of [place] coronary artery without angina pectoris, Fecal impaction in rectum Instructions: ED Constipation (Adult) Prescriptions: New mag citrate-potassium citrate 10 oz PO .once Qty: 10 0RF No Action aspirin 81 MG tablet 81 mg PO DAILY@0800 0RF potassium chloride 20 mEq tablet,ER particles/crystals See Rx Instructions .ROUTE .COMPLEX Patient Comments: Take 2 tablets by mouth every morning AND 1 tablet every afternoon. Rx Instructions: 40meq orally each am and 20 mEq orally afternoon atorvastatin 40 mg tablet 40 mg PO QHS clopidogrel [Plavix] 75 mg tablet 75 mg PO QHS bisacodyl 10 mg Suppository 10 mg MS DAILY PRN (Reason: Constipation) guaifenesin [Mucinex] 600 mg Tablet Extended Release 12hr 600 mg PO Q12H PRN (Reason: Cough) furosemide 40 mg Tablet 40 mg PO DAILY Qty: 0 0RF Rx Instructions: Take an additional 40 mg dose at 5 PM for increased leg swelling or weight gain 5 pounds in 1 week. acetaminophen 325 mg Tablet 650 mg PO Q6H PRN PRN (Reason: Pain 1-10 Or Fever>100.7) Qty: 0 0RF sennosides-docusate sodium [Stool Softener-Stimulant Laxat] 8.6-50 mg Tablet 2 tab PO BID Qty: 0 0RF carbidopa-levodopa 25-100 mg tablet 1 tab PO TID polyethylene glycol 3350 17 gram powder in packet 17 g PO DAILY pantoprazole 40 mg Tablet,Delayed Release (Dr/Ec) 40 mg PO BID Qty: 0 0RF Artificial Tears([id number]) 1-0.2-0.2 % Drops 1 drp LEFT EYE Q1H PRN PRN (Reason: DRY EYES) Qty: 0 0RF Ryland (with collagen) 7-7-1.5 gram Powder In Packet 1 packet PO BIDCM Qty: 0 0RF magnesium hydroxide [Dulcolax (magnesium hydroxide)] 400 mg/5 mL suspension 5 ml PO DAILY PRN (Reason: constipation) Rx Instructions: NOTIFY MD, IF NO BM IN 4 DAYS magnesium hydroxide [Milk Of Magnesia Concentrated] 2,400 mg/10 mL suspension 10 ml PO BID Rx Instructions: NOTIFY MD IF NO BM IN 4 DAYS ciprofloxacin HCl 500 mg tablet 500 mg PO BID Qty: 14 0RF amoxicillin-pot clavulanate 875-125 mg tablet 1 tab PO BID Qty: 20 0RF Primary Care Provider: Lam Huffman Referrals: Pablito Brower MD [Med Staff - Active Staff] - 3-5 Days if not improving Activity Restrictions/Additional Instructions: 4 hours after drinking 10 ounces of magnesium citrate you need to drink a glass of your favorite beverage with 1 cap of MiraLAX. Repeat this every 1-2 hours until you have results. Apparently your insurance company will not allow me to write a prescription for this. You will need to purchase it at any store or pharmacy. Disposition Disposition: Home, Self Care
== END 2023-12-30 16:25 | disposition home or self-care (01) ==
LOC: ED 15:24
PROVIDERS: Emergency Provider Emergency Medicine; PCP Internal Medicine; Visit Provider Emergency Medicine
DX: K56.41 Fecal impaction (principal); I89.0 Lymphedema, not elsewhere classified; R73.03 Prediabetes; I73.9 Peripheral vascular disease, unspecified; I25.10 Atherosclerotic heart disease of native coronary artery without angina pectoris; Z87.891 Personal history of nicotine dependence; Z95.5 Presence of coronary angioplasty implant and graft
CPT/HCPCS: 99282

== ENCOUNTER 2024-01-11 10:15 | Outpatient (RCR) | payer MEDICARE, MEDICAID, SELFPAY ==
[2023-12-27 00:38] VITALS: BP 118/68; PULSE 68; RESP 18; TEMP 36.4; O2SAT 97
[2024-01-04 11:09] VITALS: BP 115/49; PULSE 70; RESP 18; TEMP 36.4
--- NOTE | 2024-01-04 13:33 | PCM.WC.PN ---
History of Present Illness Date of Service: 01/04/24 Chief Complaint: Right lower extremity ulcers History of Wound: Mr. Boles is an 83-year-old currently residing at [facility] who presents due to nonhealing bilateral lower extremity ulceration. He was seen here a few months ago and discharged after he achieved healing. Recommendation was for continued use of his lymphedema pump however he states that this has not been used consistently. Current ulceration has been present for weeks. No chills, fever or otherwise feeling of unwell. Progress of Wound: Increased skin maceration noted at this visit. Missed his last appointment due to a GI issue. He has not had his superabsorbent dressing in about 2 weeks and has had some concerns with his compression as well. 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 Objective Data Objective Data Vital Signs: Vital Signs Temp Pulse Resp BP Pulse Ox O2 Del Method 97.6 F L 70 18 115/49 L 97 Room Air 01/04/24 11:09 01/04/24 11:09 01/04/24 11:09 01/04/24 11:09 12/27/23 00:38 01/04/24 11:09 Oxygen Delivery Method Room Air Charges/Coding Procedures Integumentary 111xxx-113xx: [id number] Jaye subq tissue 20 sq cm/< Add On Codes: 93006 Jaye subq tissue add-on (x 6. Additional Sq Cm debrided, please refer to clinical note. ) Physical Exam Const alert, oriented x3 and no apparent distress General Appearance: cooperative, comfortable and well kempt HEENT normocephalic and head/scalp atraumatic Eyes EOMs intact bilaterally General Eye: normal appearance of both eyes Neck full ROM General: normal visual inspection Resp normal respiratory effort Effort and Inspection: able to speak in complete sentences Extremity General Extremity: edema Skin Wounds: wounds noted Neuro oriented x3, moves all extremities and no focal motor deficits Psych mental status grossly normal, thought process normal, cooperative and affect normal Debridement Note Debridement Note Wound debrided: Right sinclair ( Superior ) Laterality: Right Type of Debridement: Excisional debridement Anesthesia Used: 5% Lidocaine Gel Depth: Down to and including healthy tissue and in the subcutaneous layer Percentage of wound debrided: 100 Instrument Used: 5mm curette Tissue Removed: Slough and devitalized tissue Severity: Fat Layer Exposed Amount of bleeding with debridement: Mild Bleeding Controlled with: Compression and gauze Patient tolerated procedure: Patient tolerated procedure well Post-Debridement Measurements and Additional Note: Post-Debridement Measurements/Treatment - Nurse 1 - General Ulcer Assessment Start: 01/04/24 11:09 Freq: Status: Active Protocol: LINDA Activity Type Activity Date Activity User E-sign Co-sign Detail Recorded Client Recorded Date Recorded By Document 01/04/24 11:09 [place] 01/04/24 11:16 KW 01/04/24 11:09 - Today's Visit Information Type of service Follow-up Visit (Physician/[employer] ) Arrival Mode Wheelchair Patient Identification Verified (Name & Yes ) Vital Signs Temperature (97.8 F-99.1 F) 97.6 F L Temperature Source Temporal Pulse Rate (60-100) 70 Pulse Location Monitor Respiratory Rate (12-18) 18 Respiratory rate source Observation Oxygen Delivery Method Room Air Blood Pressure (90/60-120/80) 115/49 L Blood Pressure Mean (mm Hg) 71 Source Monitor Position Sitting Blood Pressure Location Left Arm History Since Last Visit- (Skip if this is Patient's initial visit) Have you changed medications since your No last visit? Any new allergies or adverse reactions No Had a fall/change in ADL's that may No increase risk of falls Signs or symptoms of abuse and/or No neglect since last visit Have you been in the hospital since your No last visit? Has dressing in place as prescribed Yes Has compression in place as prescribed No Has offloadiing in place as prescribed N/A Experienced any changes in pain level or No management Left Footwear Regular Shoe Right Footwear Regular Shoe Pain Scale: 0-10 Numeric Is Patient Pain Free? Yes - Nurse 1 - General Ulcer Measurement Start: 01/04/24 11:09 Freq: Status: Active Protocol: Activity Type Activity Date Activity User E-sign Co-sign Detail Recorded Client Recorded Date Recorded By Document 01/04/24 11:09 [employer] 01/04/24 11:16 KW 01/04/24 11:09 Wound Center Nurse 1 #18 R Medial ankle -Texture (Mikayla-wound Skin Appearance) Assessed -Moisture (Mikayla-wound Skin Appearance) Assessed -Color (Imkayla-wound Skin Appearance) Assessed -Temperature (Mikayla-wound Skin No Abnormality Appearance) (Pt Warm) -Tenderness on Palpation (Mikayla-wound Yes Skin Appearance) -Ulcer Cleansing Soap and Water -Foul Odor after Cleansing Yes -Anesthetic Used 4% Lidocaine Solution #16 Right Medial Superior cluster -Texture (Mikayla-wound Skin Appearance) Assessed -Moisture (Mikayla-wound Skin Appearance) Assessed -Color (Mikayla-wound Skin Appearance) Assessed -Temperature (Mikayla-wound Skin No Abnormality Appearance) (Pt Warm) -Tenderness on Palpation (Mikayla-wound Yes Skin Appearance) -Ulcer Cleansing Soap and Water -Foul Odor after Cleansing Yes -Anesthetic Used 5% Lidocaine Gel #14- R LAT ANKLE -Texture (Mikayla-wound Skin Appearance) Assessed -Moisture (Mikayla-wound Skin Appearance) Assessed -Color (Mikayla-wound Skin Appearance) Assessed -Temperature (Mikayla-wound Skin No Abnormality Appearance) (Pt Warm) -Tenderness on Palpation (Mikayla-wound No Skin Appearance) -Ulcer Cleansing Soap and Water -Foul Odor after Cleansing Yes -Anesthetic Used 4% Lidocaine Solution WC - Nurse 2 - General Ulcer CM Notes Start: 01/04/24 11:09 Freq: Status: Active Protocol: Activity Type Activity Date Activity User E-sign Co-sign Detail Recorded Client Recorded Date Recorded By Document 01/04/24 11:31 GM Desktop 01/04/24 11:45 GM 01/04/24 11:31 Wound Center Nurse 2 #18 R Medial ankle -Time 11:31 -Correct Patient Yes -Correct Side, Site, Position Yes -Correct Procedure Yes -Procedure Performed Yes -Type of Procedure Debridement -Clinical Debridement Subcutaneous -Tissue Removed Subcutaneous -Post Debridement (cm) - Length 6.0 -Post Debridement (cm) - Width 4.0 -Post Debridement (cm) - Depth 0.2 -Total Square (Post) (cm) 24.00 -Area of Debridement (cm) - Length 6.0 -Area of Debridement (cm) - Width 4.0 -Total Square (Area) (cm) 24.00 -Tunneling No -Undermining/Tunneling No -Circular Undermining No -Wound/Ulcer Outcome Not Healed -Ulcer Cleansing Rinsed/ Irrigated with Saline -Foul Odor after Cleansing No -Bioengineered Tissue No -Bleeding Controlled with Pressure -Treatment Response Procedure Tolerated Well -Debridement - Subq, 1st 20sq cm No #16 Right Medial Superior cluster -Time 11:31 -Correct Patient Yes -Correct Side, Site, Position Yes -Correct Procedure Yes -Procedure Performed Yes -Type of Procedure Debridement -Clinical Debridement Subcutaneous -Tissue Removed Subcutaneous -Post Debridement (cm) - Length 2.7 -Post Debridement (cm) - Width 2.0 -Post Debridement (cm) - Depth 0.2 -Total Square (Post) (cm) 5.40 -Area of Debridement (cm) - Length 2.7 -Area of Debridement (cm) - Width 2.0 -Total Square (Area) (cm) 5.40 -Tunneling No -Undermining/Tunneling No -Circular Undermining No -Wound/Ulcer Outcome Not Healed -Ulcer Cleansing Rinsed/ Irrigated with Saline -Foul Odor after Cleansing No -Bioengineered Tissue No -Bleeding Controlled with Pressure -Treatment Response Procedure Tolerated Well -Debridement - Subq, 1st 20sq cm No #14- R LAT ANKLE -Time 11:31 -Correct Patient Yes -Correct Side, Site, Position Yes -Correct Procedure Yes -Procedure Performed Yes -Type of Procedure Debridement -Clinical Debridement Subcutaneous -Tissue Removed Subcutaneous -Post Debridement (cm) - Length 8.5 -Post Debridement (cm) - Width 13 -Post Debridement (cm) - Depth 0.1 -Total Square (Post) (cm) 110.5 -Area of Debridement (cm) - Length 8.5 -Area of Debridement (cm) - Width 13 -Total Square (Area) (cm) 110.5 -Tunneling No -Undermining/Tunneling No -Circular Undermining No -Wound/Ulcer Outcome Not Healed -Ulcer Cleansing Rinsed/ Irrigated with Saline -Foul Odor after Cleansing No -Bioengineered Tissue No -Bleeding Controlled with Pressure -Treatment Response Procedure Tolerated Well -Debridement - Subq, 1st 20sq cm Yes -Debridement, SubQ, ea addt'l 20sq cm 6 or part thereof Pain Scale: 0-10 Numeric Is Patient Pain Free? Yes WC - Nurse 3 - General Ulcer D/C NN Start: 01/04/24 11:09 Freq: Status: Active Protocol: Activity Type Activity Date Activity User E-sign Co-sign Detail Recorded Client Recorded Date Recorded By Document 01/04/24 12:00 KW Desktop 01/04/24 12:01 KW 01/04/24 12:00 Wound Care Center Nurse 3 #18 R Medial ankle -Primary Dressing Applied Aquacel Extra -Primary Dressing Covered/Secured with Dry Gauze & Roll Gauze, Secured with Tape -Aquacel Extra 1 #16 Right Medial Superior cluster -Primary Dressing Applied Optilok 6.5x10 -Optilok 6.5x10 1 #14- R LAT ANKLE -Primary Dressing Covered/Secured with Dry Gauze BLE -Multi-Layered Wrap Application Multi-Layer Comp - Bilat ($ ) Pain Scale: 0-10 Numeric Is Patient Pain Free? Yes WC - Visit Discharge Discharge Condition Stable Ambulatory Status Wheelchair Medication Reconcilliation completed & No provided to patient/care provider Clinical Summary of Care Provided Yes Additional Wound Wound debrided: Right lateral ankle/foot Laterality: Right Type of Debridement: Selective debridement Anesthesia Used: 5% Lidocaine Gel Depth: Down to and including healthy tissue and in the subcutaneous layer Percentage of wound debrided: 100 Instrument Used: 5mm curette Tissue Removed: Slough and devitalized tissue Severity: Fat Layer Exposed Amount of bleeding with debridement: None Bleeding Controlled with: Pressure Patient tolerated procedure: Patient tolerated procedure well Additional Wound Wound debrided: Right medial foot/ankle Type of Debridement: Excisional debridement Anesthesia Used: 5% Lidocaine Gel Depth: Down to and including healthy tissue and in the subcutaneous layer Percentage of wound debrided: 100 Instrument Used: 5mm curette Tissue Removed: Slough and devitalized tissue Severity: Fat Layer Exposed Amount of bleeding with debridement: Mild Bleeding Controlled with: Pressure Patient tolerated procedure: Patient tolerated procedure well Assessment/Plan Assessment/Plan (1) Ulcer of right lower extremity with fat layer exposed: CODE(S): L97.912 - Non-pressure chronic ulcer of unspecified part of right lower leg with fat layer exposed (2) Ulcer of left lower extremity with fat layer exposed: CODE(S): L97.922 - Non-pressure chronic 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 As noted above, increased periulcer maceration. Possibly due to non use of Aquacel and superabsorbent dressings over the last 2 weeks. He has also had concerns with how his wraps are applied at the facility. Despite mikayla ulcer maceration, some improvement in circumference of the medial ulcers. Continue 10 minutes Dakin's soak. Continue Aquacel extra, cover with superabsorbent dressing. Continue 3M wraps. Change dressing and wrap on Monday and Monday at the facility. Continue use of lymphedema pump twice daily, he states that this is being consistently used. Leg elevation and compression also very strongly recommended, he voiced understanding. This facility will speak with his facility in an attempt to educate on proper wrap application. Will also suggest having a contact representative come with him at his next visit for a visual on how to apply 3M compression appropriately, hopefully this helps with compliance. Continue other chronic wound care. His questions were answered and he was advised to call with any further questions or concerns. Follow-up in 1 week. This note was generated with [employer] dictation software. It may contain incorrect words, spelling, and punctuation that were not noted in checking the note before signing.
[2024-01-11 10:27] VITALS: BP 137/75; PULSE 77; RESP 18; TEMP 36.3
--- NOTE | 2024-01-11 12:00 | PCM.WC.PN ---
History of Present Illness Date of Service: 01/11/24 Chief Complaint: Right lower extremity ulcers History of Wound: Mr. Boles is an 83-year-old currently residing at [facility] who presents due to nonhealing bilateral lower extremity ulceration. He was seen here a few months ago and discharged after he achieved healing. Recommendation was for continued use of his lymphedema pump however he states that this has not been used consistently. Current ulceration has been present for weeks. No chills, fever or otherwise feeling of unwell. Progress of Wound: Less macerated and some improvement noted today. He states that his lymphedema pump has been at a 60 mmHg pressure however, order was for 40 mmHg. He reports discomfort at 60 mm Hg. Otherwise, stable. Objective Data Objective Data Vital Signs: Vital Signs Temp Pulse Resp BP Pulse Ox O2 Del Method 97.4 F L 77 18 137/75 H 97 Room Air 01/11/24 10:27 01/11/24 10:27 01/11/24 10:27 01/11/24 10:27 12/27/23 00:38 01/11/24 10:27 Oxygen Delivery Method Room Air Charges/Coding Procedures Integumentary 111xxx-113xx: 32200 Jaye subq tissue 20 sq cm/< Add On Codes: 24803 Jaye subq tissue add-on (x1. Additional square centimeter debrided, please refer to clinical note.) Physical Exam Const alert, oriented x3 and no apparent distress General Appearance: cooperative, comfortable and well kempt HEENT normocephalic and head/scalp atraumatic Eyes EOMs intact bilaterally General Eye: normal appearance of both eyes Neck full ROM General: normal visual inspection Resp normal respiratory effort Effort and Inspection: able to speak in complete sentences Extremity General Extremity: edema Skin Wounds: wounds noted Neuro oriented x3, moves all extremities and no focal motor deficits Psych mental status grossly normal, thought process normal, cooperative and affect normal Debridement Note Debridement Note Wound debrided: Right medial leg (superior) Type of Debridement: Excisional debridement Anesthesia Used: 5% Lidocaine Gel Depth: Down to and including healthy tissue and in the subcutaneous layer Percentage of wound debrided: 100 Instrument Used: 5mm curette Tissue Removed: Slough and devitalized tissue Severity: Fat Layer Exposed Amount of bleeding with debridement: Mild Bleeding Controlled with: Pressure Patient tolerated procedure: Patient tolerated procedure well Post-Debridement Measurements and Additional Note: Post-Debridement Measurements/Treatment - Nurse 1 - General Ulcer Assessment Start: 01/04/24 11:09 Freq: Status: Active Protocol: LINDA Activity Type Activity Date Activity User E-sign Co-sign Detail Recorded Client Recorded Date Recorded By Document 01/04/24 11:09 KW Desktop 01/04/24 11:16 KW Document 01/11/24 10:27 KW [id number] 01/11/24 10:31 KW 01/04/24 01/11/24 11:09 10:27 WC - Today's Visit Information Type of service Follow-up Visit Follow-up Visit (Physician/DISASTER RECOVERY ANALYST (Physician/DISASTER RECOVERY ANALYST ) ) Arrival Mode Wheelchair Wheelchair Patient Identification Verified (Name & Yes Yes ) Vital Signs Temperature (97.8 F-99.1 F) 97.6 F L 97.4 F L Temperature Source Temporal Temporal Pulse Rate (60-100) 70 77 Pulse Location Monitor Monitor Respiratory Rate (12-18) 18 18 Respiratory rate source Observation Observation Oxygen Delivery Method Room Air Room Air Blood Pressure (90/60-120/80) 115/49 L 137/75 H Blood Pressure Mean (mm Hg) 71 95 Source Monitor Monitor Position Sitting Sitting Blood Pressure Location Left Arm Left Arm History Since Last Visit- (Skip if this is Patient's initial visit) Have you changed medications since your No No last visit? Any new allergies or adverse reactions No No Had a fall/change in ADL's that may No No increase risk of falls Signs or symptoms of abuse and/or No No neglect since last visit Have you been in the hospital since your No No last visit? Has dressing in place as prescribed Yes Yes Has compression in place as prescribed No Yes Has offloadiing in place as prescribed N/A N/A Experienced any changes in pain level or No No management Left Footwear Regular Shoe Custom Shoe Right Footwear Regular Shoe Custom Shoe Pain Scale: 0-10 Numeric Is Patient Pain Free? Yes Yes JANAY - Nurse 1 - General Ulcer Measurement Start: 01/04/24 11:09 Freq: Status: Active Protocol: Activity Type Activity Date Activity User E-sign Co-sign Detail Recorded Client Recorded Date Recorded By Document 01/04/24 11:09 KW Desktop 01/04/24 11:16 KW Document 01/11/24 10:27 KW [id number] 01/11/24 10:31 01/04/24 01/11/24 11:09 10:27 Wound Center Nurse 1 #18 R Medial ankle -Granulation Amt Large (67-100%) -Granulation Quality [place] -Necrosis Amt Large (67-100%) -Necrotic Tissue Type Adherent Slough -Texture ([place]-wound Skin Appearance) Assessed Assessed -Moisture ([place]-wound Skin Appearance) Assessed Assessed -Color ([place]-wound Skin Appearance) Assessed Assessed -Temperature ([place]-wound Skin No Abnormality No Abnormality Appearance) (Pt Warm) (Pt Warm) -Tenderness on Palpation ([place]-wound Yes No Skin Appearance) -Ulcer Cleansing Soap and Water Soap and Water -Foul Odor after Cleansing Yes No -Anesthetic Used 4% Lidocaine 5% Lidocaine Solution Gel #16 Right Medial Superior cluster -Texture ([place]-wound Skin Appearance) Assessed Assessed -Moisture ([place]-wound Skin Appearance) Assessed Assessed -Color ([place]-wound Skin Appearance) Assessed Assessed -Temperature ([place]wound Skin No Abnormality Appearance) (Pt Warm) -Tenderness on Palpation ([place]-wound Yes Skin Appearance) -Ulcer Cleansing Soap and Water Soap and Water -Foul Odor after Cleansing Yes -Anesthetic Used 5% Lidocaine 5% Lidocaine Gel Gel #14- R LAT ANKLE Proximal -Texture ([place]-wound Skin Appearance) Assessed Assessed -Moisture ([place]-wound Skin Appearance) Assessed Assessed -Color ([place]-wound Skin Appearance) Assessed Assessed -Temperature ([place]wound Skin No Abnormality No Abnormality Appearance) (Pt Warm) (Pt Warm) -Tenderness on Palpation ([place]-wound No No Skin Appearance) -Ulcer Cleansing Soap and Water Soap and Water -Foul Odor after Cleansing Yes -Anesthetic Used 4% Lidocaine 5% Lidocaine Solution Gel Right Calf (cm) 41.5 Right Ankle (cm) 31.5 Left Calf (cm) 39.5 Left Ankle (cm) 31.7 WC - Nurse 2 - General Ulcer CM Notes Start: 01/04/24 11:09 Freq: Status: Active Protocol: Activity Type Activity Date Activity User E-sign Co-sign Detail Recorded Client Recorded Date Recorded By Document 01/04/24 11:31 Desktop 01/04/24 11:45 GM Document 01/11/24 10:42 [id number] 01/11/24 10:55 01/04/24 01/11/24 11:31 10:42 Wound Center Nurse 2 #19 Right lateral ankle Distal -Time 10:52 -Correct Patient Yes -Correct Side, Site, Position Yes -Correct Procedure Yes -Procedure Performed Yes -Type of Procedure Debridement -Clinical Debridement Subcutaneous -Tissue Removed Subcutaneous -Post Debridement (cm) - Length 1.5 -Post Debridement (cm) - Width 2.0 -Post Debridement (cm) - Depth 0.2 -Total Square (Post) (cm) 3.00 -Area of Debridement (cm) - Length 1.5 -Area of Debridement (cm) - Width 2.0 -Total Square (Area) (cm) 3.00 -Tunneling No -Undermining/Tunneling No -Circular Undermining No -Wound/Ulcer Outcome Not Healed -Ulcer Cleansing Rinsed/ Irrigated with Saline -Foul Odor after Cleansing No -Bioengineered Tissue No -Bleeding Controlled with Pressure -Treatment Response Procedure Tolerated Well -Debridement - Subq, 1st 20sq cm No #18 R Medial ankle -Time 11:31 10:45 -Correct Patient Yes Yes -Correct Side, Site, Position Yes Yes -Correct Procedure Yes Yes -Procedure Performed Yes Yes -Type of Procedure Debridement Debridement -Clinical Debridement Subcutaneous Subcutaneous -Tissue Removed Subcutaneous Subcutaneous -Post Debridement (cm) - Length 6.0 2.6 -Post Debridement (cm) - Width 4.0 4.5 -Post Debridement (cm) - Depth 0.2 0.2 -Total Square (Post) (cm) 24.00 11.70 -Area of Debridement (cm) - Length 6.0 2.6 -Area of Debridement (cm) - Width 4.0 4.5 -Total Square (Area) (cm) 24.00 11.70 -Tunneling No No -Undermining/Tunneling No No -Circular Undermining No No -Wound/Ulcer Outcome Not Healed Not Healed -Ulcer Cleansing Rinsed/ Rinsed/ Irrigated with Irrigated with Saline Saline -Foul Odor after Cleansing No No -Bioengineered Tissue No No -Bleeding Controlled with Pressure Pressure -Treatment Response Procedure Procedure Tolerated Well Tolerated Well -Debridement - Subq, 1st 20sq cm No No #16 Right Medial Superior cluster -Time 11:31 10:48 -Correct Patient Yes Yes -Correct Side, Site, Position Yes Yes -Correct Procedure Yes Yes -Procedure Performed Yes Yes -Type of Procedure Debridement Debridement -Clinical Debridement Subcutaneous Subcutaneous -Tissue Removed Subcutaneous Subcutaneous -Post Debridement (cm) - Length 2.7 2.5 -Post Debridement (cm) - Width 2.0 2.0 -Post Debridement (cm) - Depth 0.2 0.2 -Total Square (Post) (cm) 5.40 5.00 -Area of Debridement (cm) - Length 2.7 2.5 -Area of Debridement (cm) - Width 2.0 2.0 -Total Square (Area) (cm) 5.40 5.00 -Tunneling No No -Undermining/Tunneling No No -Circular Undermining No No -Wound/Ulcer Outcome Not Healed Not Healed -Ulcer Cleansing Rinsed/ Rinsed/ Irrigated with Irrigated with Saline Saline -Foul Odor after Cleansing No No -Bioengineered Tissue No No -Bleeding Controlled with Pressure Pressure -Treatment Response Procedure Procedure Tolerated Well Tolerated Well -Debridement - Subq, 1st 20sq cm No Yes #14- R LAT ANKLE Proximal -Time 11:31 10:50 -Correct Patient Yes Yes -Correct Side, Site, Position Yes Yes -Correct Procedure Yes Yes -Procedure Performed Yes Yes -Type of Procedure Debridement Debridement -Clinical Debridement Subcutaneous Subcutaneous -Tissue Removed Subcutaneous Subcutaneous -Post Debridement (cm) - Length 8.5 3.0 -Post Debridement (cm) - Width 13 4.0 -Post Debridement (cm) - Depth 0.1 0.2 -Total Square (Post) (cm) 110.5 12.00 -Area of Debridement (cm) - Length 8.5 3.0 -Area of Debridement (cm) - Width 13 4.0 -Total Square (Area) (cm) 110.5 12.00 -Tunneling No No -Undermining/Tunneling No No -Circular Undermining No No -Wound/Ulcer Outcome Not Healed Not Healed -Ulcer Cleansing Rinsed/ Rinsed/ Irrigated with Irrigated with Saline Saline -Foul Odor after Cleansing No No -Bioengineered Tissue No No -Bleeding Controlled with Pressure Pressure -Treatment Response Procedure Procedure Tolerated Well Tolerated Well -Debridement - Subq, 1st 20sq cm Yes Yes -Debridement, SubQ, ea addt'l 20sq cm 6 1 or part thereof Pain Scale: 0-10 Numeric Is Patient Pain Free? Yes Yes WC - Nurse 3 - General Ulcer D/C NN Start: 01/04/24 11:09 Freq: Status: Active Protocol: Activity Type Activity Date Activity User E-sign Co-sign Detail Recorded Client Recorded Date Recorded By Document 01/04/24 12:00 KW Desktop 01/04/24 12:01 KW Document 01/11/24 11:12 KW [id number] 01/11/24 11:14 KW 01/04/24 01/11/24 12:00 11:12 Wound Care Center Nurse 3 #19 Right lateral ankle Distal -Primary Dressing Applied Aquacel Extra, Optilok 6.5x10 -Primary Dressing Covered/Secured with Dry Gauze & Roll Gauze, Secured with Tape -Aquacel Extra 1 -Optilok 6.5x10 1 #18 R Medial ankle -Primary Dressing Applied Aquacel Extra Optilok 6.5x10 -Primary Dressing Covered/Secured with Dry Gauze & Roll Gauze, Secured with Tape -Aquacel Extra 1 -Optilok 6.5x10 1 #16 Right Medial Superior cluster -Primary Dressing Applied Optilok 6.5x10 -Primary Dressing Covered/Secured with Dry Gauze & Roll Gauze, Secured with Tape -Optilok 6.5x10 1 #14- R LAT ANKLE Proximal -Primary Dressing Covered/Secured with Dry Gauze Dry Gauze & Roll Gauze, Secured with Tape BLE -Multi-Layered Wrap Application Multi-Layer Multi-Layer Comp - Bilat ($ Comp - Bilat ($ ) ) Pain Scale: 0-10 Numeric Is Patient Pain Free? Yes Yes WC - Visit Discharge Discharge Condition Stable Stable Ambulatory Status Wheelchair Wheelchair Medication Reconcilliation completed & No No provided to patient/care provider Clinical Summary of Care Provided Yes Yes Additional Wound Wound debrided: Right medial ankle/foot Type of Debridement: Excisional debridement Anesthesia Used: 5% Lidocaine Gel Depth: Down to and including healthy tissue and in the subcutaneous layer Percentage of wound debrided: 100 Instrument Used: 5mm curette Tissue Removed: Slough and devitalized tissue Severity: Fat Layer Exposed Amount of bleeding with debridement: Mild Bleeding Controlled with: Pressure Patient tolerated procedure: Patient tolerated procedure well Additional Wound Wound debrided: Right lateral ankle/foot (proximal) Type of Debridement: Excisional debridement Anesthesia Used: 5% Lidocaine Gel Depth: Down to and including healthy tissue and in the subcutaneous layer Percentage of wound debrided: 100 Instrument Used: 5mm curette Tissue Removed: Slough and devitalized tissue Additional Wound Wound debrided: Right lateral ankle/foot (distal) Type of Debridement: Excisional debridement Anesthesia Used: 5% Lidocaine Gel Depth: Down to and including healthy tissue and in the subcutaneous layer Percentage of wound debrided: 100 Instrument Used: 5mm curette Tissue Removed: Slough and devitalized tissue Severity: Fat Layer Exposed Amount of bleeding with debridement: Mild Bleeding Controlled with: Pressure Patient tolerated procedure: Patient tolerated procedure well Assessment/Plan Assessment/Plan (1) Ulcer of right lower extremity with fat layer exposed: CODE(S): L97.912 - Non-pressure chronic ulcer of unspecified part of right lower leg with fat layer exposed (2) Ulcer of left lower extremity with fat layer exposed: CODE(S): L97.922 - Non-pressure chronic 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 Better granulation tissue and less maceration appreciated today. Aside from increased discomfort with lymphedema pump, he has no acute concerns. Continue 10 minutes Dakin's soak. Continue Aquacel extra, cover with superabsorbent dressing. Continue 3M wraps. Change dressing and wrap on Monday and Monday at the facility. Continue use of lymphedema pump at 40 mmHg twice daily. Leg elevation, exercise as tolerated and compression also very strongly recommended, he voiced understanding. Continue other chronic wound care. His questions were answered and he was advised to call with any further questions or concerns. Follow-up in 1 week. This note was generated with [employer] dictation software. It may contain incorrect words, spelling, and punctuation that were not noted in checking the note before signing.
== END 2024-01-26 23:59 | disposition home or self-care (01) ==
LOC: WC 10:15
PROVIDERS: PCP Internal Medicine; Referring Provider Internal Medicine; Visit Provider Internal Medicine
DX: I87.2 Venous insufficiency (chronic) (peripheral) (principal); L97.812 Non-pressure chronic ulcer of other part of right lower leg with fat layer exposed; L97.412 Non-pressure chronic ulcer of right heel and midfoot with fat layer exposed; I89.0 Lymphedema, not elsewhere classified
CPT/HCPCS: 11042; 11045; 29581